=== PATIENT | female | born 1945 | race Caucasian/White ===

== ENCOUNTER 2021-05-11 09:36 | Emergency (ER) | payer MEDICARE, SELFPAY ==
[2021-05-11 09:37] VITALS: BP 186/82; PULSE 87; RESP 16; TEMP 36.4; O2SAT 97; BMI 30.9
--- NOTE | 2021-05-11 10:02 | RAD_ITS ---
STUDY: X-RAY - PELVIS AND RIGHT HIP REASON FOR EXAM: Female, 75 years old. Right hip pain following injury. TECHNIQUE: 3 views of the pelvis and hip. COMPARISON: None. FINDINGS: There is a non-specific bowel gas pattern. Normal visualized soft tissue structures. There is narrowing with cortical sclerosis and osteophyte formation of the sacroiliac joint consistent with degenerative osteoarthritic changes. Normal bilateral superior and inferior pubic rami. Normal pubic symphysis. Normal bilateral ischial tuberosities. There are osteoarthritic changes of the femoral head with marginal osteophyte formation. There is osteoarthritic spur formation of the acetabular rim. There is moderate articular joint space narrowing of the hip. Questionable nondisplaced impacted subcapital fracture. RAD/HIP, UNI W/ Pelvis 2-3 Views IMPRESSION: Degenerative changes. Questionable nondisplaced impacted subcapital fracture of the proximal right femur Electronically Signed: Daryl You MD at 10:36 EDT , Service support ,
--- NOTE | 2021-05-11 10:02 | CT_ITS ---
STUDY: CT BRAIN WITHOUT CONTRAST REASON FOR EXAM: Female, 75 years old. Head injury due to a fall. RADIATION DOSAGE (If Supplied By Facility): CTDIvol = ( 44.99 ) mGy, DLP = ( 812.98 ) mGycm TECHNIQUE: Transaxial CT imaging of the brain was performed without administration of intravenous contrast material. Individualized dose optimization techniques were used for this CT. COMPARISON: No relevant priors. FINDINGS: Scalp hematoma overlying the posterior right parietal occipital bone. Normal calvarium. There is mild cerebral atrophy with widening of the extra-axial spaces and ventricular dilatation. There are areas of decreased attenuation within the white matter tracts of the supratentorial brain, consistent with microvascular disease changes. Normal basal ganglia and thalami. Normal brainstem. Normal cerebellum. There is evidence of a hemorrhagic contusion overlying the superior posterior aspect of the right parietal lobe. Focal hemorrhagic contusion along the posterior medial aspect of the left parietal lobe. There is also evidence of an acute subdural hematoma within the cerebral falx. Focal subarachnoid hemorrhage is also seen within the sulcal markings of the posterior right parietal lobe. Questionable tiny hemorrhagic contusion in the right temporal lobe as well. There are no findings of an acute ischemic infarction. Normal visualized paranasal sinuses. CT/Brain/Head without Contrast IMPRESSION: Chronic involutional changes of the brain. Subdural hematoma within the cerebral falx as well as hemorrhagic contusion of the right temporal lobe and the posterior right parietal lobe and posterior medial aspect of the left parietal lobe. Focal subarachnoid bleed also seen within the sulcal markings of the posterior right parietal lobe. Scalp hematoma overlying the right posterior parietal occipital bones. N.B. : The above Results were Read Back by Daryl You MD to Say Martínez MD, and understanding confirmed on 05/11/2021 10:31:54 (ET). Electronically Signed: Daryl You MD at 10:33 EDT , Service support ,
--- NOTE | 2021-05-11 10:03 | EX.ED.GENINJ ---
HPI History of Present Illness Chief Complaint: Head Injury Informant: patient Onset/Context/Timing Onset: Today (1-2 hrs ago) Mechanism/Context: Fall and Slip Location of pain/injuries: Right hip and - (head, neckl) Quality of Pain: Aching Current Severity: Mild Maximum Severity: Moderate Worsened by: palpation affected areas Associated Symptoms Associated Symptoms: Negative for Parasthesias, Weakness, Loss of function, Inability to ambulate, Loss of consciousness and Amnesia Narrative Narrative: Patient was getting a coffee mug out of a tall cabinet, she needed to step onto a stool in order to reach it which she does every morning but she had her slippers on and coming down she either slipped on her slipper or misplaced her foot, causing her to fall to the floor, hitting the back of her head on it, she has a bad headache as a result of this and hematoma. No bleeding or laceration. She also fell onto her right hip and she points more to her right buttock where she is having pain. Able to walk on it, no pain in the groin. No other injuries. Does not take any anticoagulants or antiplatelets. [facility] Medical History Diabetes Hypertension Hypothyroidism Home Medications alprazolam 0.5 mg PO QHS 05/11/21 [History Last Taken Unknown] atorvastatin 10 mg PO QHS 05/11/21 [History Last Taken Unknown] glimepiride 2 mg PO DAILY 05/11/21 [History Last Taken Unknown] levothyroxine 50 mcg PO DAILY 05/11/21 [History Last Taken Unknown] lisinopril 20 mg PO DAILY 05/11/21 [History Last Taken Unknown] metformin 500 mg PO QHS 05/11/21 [History Last Taken Unknown] Allergy/AdvReac Type Severity Reaction Status Date / Time Penicillins Allergy Hives Verified 05/11/21 09:40 aspirin AdvReac Other Verified 05/11/21 09:40 codeine AdvReac Other Verified 05/11/21 09:40 Social History Smoking Status: Current every day smoker tobacco type: cigarettes ROS ROS ED Constitutional Constitutional ED: Denies chills or fever(s) Eyes Eyes: Reports blurry vision bilateral (transiently for about 20-30 min after head injury) and change in vision; Denies diplopia or loss of vision ENT ENT ED: Denies ear pain, epistaxis, facial pain or rhinorrhea Cardiovascular Cardiovascular: Denies chest pain or palpitations Respiratory/Chest Respiratory/Chest: Denies cough or dyspnea Gastrointestinal Gastrointestinal: Denies abdominal pain, diarrhea, melena, nausea or vomiting Genitourinary Genitourinary ED: Denies dysuria or hematuria Musculoskeletal Musculoskeletal: Reports as per HPI, extremity pain and neck pain; Denies back pain Integumentary Denies abscess, Abrasions, laceration or rash Neurologic Neurologic: Reports headache(s); Denies confusion, paresthesias or weakness EXAM Physical Exam Const Vital Signs: 05/11/21 09:37 05/11/21 09:54 05/11/21 11:31 Temperature 97.6 F L Temperature Source Temporal Pulse Rate 87 Respiratory Rate 16 Respiratory Effort Normal Non-Labored Respiratory Depth Normal Respiratory Pattern Normal Blood Pressure 186/82 H 164/95 H Blood Pressure Mean 116 118 Pulse Ox 97 Oxygen Delivery Method Room Air Positive well nourished and well developed General Appearance ED: well developed and NAD HEENT Reports TM's clear and nasal mucous membranes and turbinates normal HEENT Narrative: Tender 6-7 cm hematoma right occipital scalp without laceration, crepitance, obvious depression trauma Face and Sinus: Negative for facial tenderness Tympanic Membrane ED: Yes TM's clear Eyes PERRL and EOMs intact bilaterally Visual Acuity: other Other Details: no entrapment or pain with extraocular movements Neck full ROM and supple Neck Narrative: Tender right paraspinal musculature mildly. No midline bony tenderness. Full range of motion without neurologic symptoms. General: tenderness Chest Wall inspection of chest normal and palpation of chest normal Chest: symmetrical chest wall rise; Negative for crepitus or tenderness Resp normal respiratory effort and clear to auscultation bilaterally Percussion: other equal BS bilat Cardio no murmurs Rate: regular rate Rhythm: regular rhythm GI normal to inspection, nondistended, normoactive bowel sounds, soft to palpation and non-tender Back/Spine normal ROM Cervical Spine: Negative for cervical spine tenderness Thoracic Spine / Upper Back: Negative for thoracic spinal tenderness Lumbar Spine / Lower Back: Negative for lumbar spinal tenderness Extremity normal to inspection and full ROM Extremity Narrative: Tender in the right buttock and mildly at ischial tuberosity, nontender greater trochanter, painless full range of motion of the hip without deformity. Pelvis stable. General Extremety ED: Negative for tenderness Neuro oriented x3, CN's II-XII intact bilaterally, moves all extremities, no focal motor deficits and no sensory deficits noted João Coma Scale: document GCS findings Spontaneous Obeys Commands Oriented 15 Sensorium / Orientation: awake and alert Psych mental status grossly normal and thought process normal Skin no wounds Lesions: no lesions Rashes: no rashes MDM MDM MDM Narrative Medical decision making narrative: Head CT shows cerebral contusion, subdural hematoma, along with some small amounts of subarachnoid blood locally as acute injury in addition to some left-sided bleeding as well. No intraventricular blood. Patient is clinically stable, hemodynamically stable, GCS 15. She declined analgesics and declined an ice pack. She will require transfer to a specialty center and has neurosurgical capabilities. Her hip x-ray including the pelvis are fine, no acute fractures 3 views of my interpretation, although radiology is questioning a nondisplaced subcapital hip fracture. She is not examining or having symptoms consistent with this. After discussing with the patient, we were able to get an accepting physician at [facility] [place], Dr. Garza. Lab Data Attestation: I reviewed the patient's lab results. Labs: Laboratory Results - last 24 hr 05/11/21 11:27 POC Glucose 189 H Radiography Diagnostic Testing: Clinical Impression(s) from Imaging Studies Brain CT 05/11/21 10:02 IMPRESSION: Chronic involutional changes of the brain. Subdural hematoma within the cerebral falx as well as hemorrhagic contusion of the right temporal lobe and the posterior right parietal lobe and posterior medial aspect of the left parietal lobe. Focal subarachnoid bleed also seen within the sulcal markings of the posterior right parietal lobe. Scalp hematoma overlying the right posterior parietal occipital bones. N.B. : The above Results were Read Back by Daryl You MD to Say Martínez MD, and understanding confirmed on 05/11/2021 10:31:54 (ET). Electronically Signed: Daryl You MD at 10:33 EDT , Service support , ADDENDUM: 05/11/21 1039 IMPRESSION: Chronic involutional changes of the brain. Subdural hematoma within the cerebral falx as well as hemorrhagic contusion of the right temporal lobe and the posterior right parietal lobe and posterior medial aspect of the left parietal lobe. Focal subarachnoid bleed also seen within the sulcal markings of the posterior right parietal lobe. Scalp hematoma overlying the right posterior parietal occipital bones. N.B. : The above Results were Read Back by Daryl You MD to Say Martínez MD, and understanding confirmed on 05/11/2021 10:31:54 (ET). Electronically Signed: Daryl You MD at 10:33 EDT , Service support , Hip/Pelvis X-Ray 05/11/21 10:02 IMPRESSION: Degenerative changes. Questionable nondisplaced impacted subcapital fracture of the proximal right femur Electronically Signed: Daryl You MD at 10:36 EDT , Service support , Critical Care Time Critical Care Time: Yes Critical care time (excluding procedures): 30-74 minutes (32), Including time spent:, Discussing w/Patient &/or Family/Operations Officer Afloat, Discussing w/Consultants, Arranging Admission or Transfer and Performing Direct Patient Care at Bedside Discharge Plan Triage Chief Complaint: Head Injury ED Provider: Say Martínez Dx/Rx/DC Orders Clinical Impression: Cerebral contusion, Contusion of hip, right, Fall from slipping, Acute subdural hematoma Prescriptions: No Action atorvastatin 10 mg tablet 10 mg PO QHS RF: 0 lisinopril 20 mg tablet 20 mg PO DAILY RF: 0 glimepiride 2 mg tablet 2 mg PO DAILY RF: 0 alprazolam 0.5 mg tablet 0.5 mg PO QHS RF: 0 levothyroxine 50 mcg tablet 50 mcg PO DAILY RF: 0 metformin 500 mg tablet extended release 24 hr 500 mg PO QHS RF: 0 Primary Care Provider: Ellis Quiñones Disposition Disposition: Acute Care Hospital Discharge Location: [facility]
--- NOTE | 2021-05-11 11:28 | NURSING ---
1125 CALLED [facility]. NOT TAKING PATIENTS
--- NOTE | 2021-05-11 11:29 | NURSING ---
1126 CALLED [facility] NO ICU BEDS. WILL TALK TO DR ZAMUDIO
[2021-05-11 11:31] VITALS: BP 164/95
[2021-05-11 11:35] LABS: Bedside Glucose 189 mg/dL (70-110)
--- NOTE | 2021-05-11 11:40 | NURSING ---
ACCEPTED AT [facility]
[2021-05-11 12:08] VITALS: BP 164/95; PULSE 87; RESP 16; O2SAT 97
[2021-05-11] MEDS: Acetaminophen 500 MG Tablet 1000 MG PO (13:16)
[2021-05-11 13:18] VITALS: BP 158/76; PULSE 62; RESP 18; O2SAT 95
--- NOTE | 2021-05-11 14:55 | NURSING ---
PATIENT WAS WHEELING OUT, [facility] CALLED ASKING WHERE OUR TRAUMA PATIENT WAS. EXPLAINED WE HAD TO WAIT FOR TRANSPORT. SHE WAS OK WITH RESPONCE
== END 2021-05-11 14:30 | disposition short-term general hospital (02) ==
PROVIDERS: Emergency Provider Emergency Medicine; PCP Family Medicine
DX: S06.5X9A Traumatic subdural hemorrhage with loss of consciousness of unspecified duration, initial encounter (principal); S70.01XA Contusion of right hip, initial encounter; W01.0XXA Fall on same level from slipping, tripping and stumbling without subsequent striking against object, initial encounter; Y93.9 Activity, unspecified; Y92.89 Other specified places as the place of occurrence of the external cause; Y99.8 Other external cause status; E03.9 Hypothyroidism, unspecified; E11.9 Type 2 diabetes mellitus without complications; F17.210 Nicotine dependence, cigarettes, uncomplicated; I10 Essential (primary) hypertension; M16.11 Unilateral primary osteoarthritis, right hip; Z79.82 Long term (current) use of aspirin; Z79.84 Long term (current) use of oral hypoglycemic drugs
CPT/HCPCS: 70450; 73502; 82962; 99285; A4216

== ENCOUNTER → 2022-08-11 | Outpatient (CLI) | payer MEDICARE, SELFPAY ==
--- NOTE | 2022-08-11 09:25 | MRI_ITS ---
INDICATION: Back and right lower extremity pain. EXAMINATION: MRI - MR Spine Lumbar W/O Contrast TECHNIQUE: Multiplanar and multisequence MR images of the lumbar spine. IV Contrast Dosage and Agent: None. COMPARISON: 07/23/2022 radiographs. FINDINGS: No fracture or acute osseous abnormality. Alignment similar to previous with mild grade 1 degenerative anterolisthesis of L4 on L5. The conus terminates at the level of the L2 superior endplate with normal contour and signal. Normal arborization of the cauda equina. At L1-2, small diffuse disc bulge and moderate bilateral facet degeneration causes only mild narrowing of the spinal canal and foramina with no nerve root impingement. At L2-3, small diffuse disc bulge and severe bilateral facet degeneration with degenerative buckling of ligamentum flavum causes only mild narrowing of the spinal canal and foramina with no nerve root impingement. At L3-4, moderate diffuse disc bulge and severe bilateral facet degeneration with degenerative buckling of the ligamentum flavum causes only mild narrowing of the spinal canal and foramina with no evidence of nerve root impingement. At L4-5, severe bilateral facet degeneration with buckling of ligamentum flavum and grade 1, 3 mm, degenerative anterolisthesis causes high-grade narrowing of the right subarticular zone with disc and ligamentum flavum likely compressing the traversing right L5 nerve root. Disc and ligamentum flavum displace but do not definitively compress the traversing left L5 nerve root in the subarticular zone. Disc and osteophyte also abuts both exiting L4 nerve roots in the foramina. At L5-S1, small diffuse disc bulge and moderate facet degeneration causes only mild narrowing of the spinal canal. Disc and vertebral body and facet osteophytes extend into and markedly narrow the right foramen likely compressing the exiting right L5 nerve root. Mild to moderate left foraminal narrowing with disc and osteophyte abutting but not compressing the exiting left L5 nerve root. The paraspinal soft tissues are unremarkable. MRI/Spine Lumbar (Routine) IMPRESSION: Degenerative changes particularly at L4-5 and L5-S1. There is likely compression of the right L5 nerve root in the right subarticular zone at L4-5 and right foramen of L5-S1. Given the facet degeneration and anterolisthesis at L4-5, consider flexion and extension radiographs to assess for mechanical instability. Electronically Signed: Rolando Philip MD at 22:25 EST ,
== END | disposition home or self-care (01) ==
LOC: MRI 09:24
PROVIDERS: PCP Family Medicine; Referring Provider Orthopaedic Surgery; Visit Provider Orthopaedic Surgery
DX: M54.50 Low back pain, unspecified (principal)
CPT/HCPCS: 72148

== ENCOUNTER 2022-11-22 08:25 | Emergency (ER) | payer MEDICARE, SELFPAY ==
[2022-11-22 08:26] VITALS: BP 145/93; PULSE 78; RESP 16; TEMP 35.2; O2SAT 99
--- NOTE | 2022-11-22 10:42 | ED.VIS.BACK ---
HPI History of Present Illness Chief Complaint: Back Informant: patient Narrative Narrative: History of spinal stenosis and sciatica on the right side, has been having episodes for years, periodically. Another episode of the same symptoms for the last 3 to 4 days after she had a minor fall, but she states she did not injure her back in the fall. She may have twisted, she did not have immediate sciatica. She denies any bowel or bladder dysfunction, weakness, numbness. Pain radiates down the right leg to her foot. [facility] Medical History Diabetes History of trigger finger Hypertension Hypothyroidism Home Medications alprazolam 0.5 mg tablet 0.5 mg PO QHS 05/11/21 [History Last Taken Unknown] atorvastatin 10 mg tablet 10 mg PO QHS 05/11/21 [History Last Taken Unknown] glimepiride 2 mg tablet 2 mg PO DAILY 05/11/21 [History Last Taken Unknown] levothyroxine 50 mcg tablet 50 mcg PO DAILY 05/11/21 [History Last Taken Unknown] lisinopril 20 mg tablet 20 mg PO DAILY 05/11/21 [History Last Taken Unknown] dulaglutide 0.75 mg/0.5 mL subcutaneous pen injector (Trulicity) ml subcut 07/23/22 [History Last Taken Unknown] gabapentin 100 mg capsule ea PO 07/23/22 [History Last Taken Unknown] Allergy/AdvReac Type Severity Reaction Status Date / Time Penicillins Allergy Hives Verified 11/22/22 08:25 aspirin AdvReac Other Verified 11/22/22 08:25 codeine AdvReac Other Verified 11/22/22 08:25 Social History Smoking Status: Current every day smoker tobacco type: cigarettes alcohol intake: never ROS ROS ED Constitutional Constitutional ED: Denies chills or fever(s) Gastrointestinal Gastrointestinal: Denies abdominal pain, constipation, fecal incontinence, nausea or vomiting Genitourinary Genitourinary ED: Reports other Details: no urinary retention ; Denies abdominal discomfort or urinary incontinence Musculoskeletal Musculoskeletal: Reports as per HPI and back pain; Denies neck pain Integumentary Denies rash or wounds Neurologic Neurologic: Denies headache(s), paresthesias or weakness EXAM Physical Exam Const Vital Signs: 11/22/22 08:26 Temperature 95.3 F L Temperature Source Temporal Pulse Rate 78 Respiratory Rate 16 Blood Pressure 145/93 H Blood Pressure Mean 110 Pulse Ox 99 Oxygen Delivery Method Room Air Positive well nourished and well developed General Appearance ED: well developed and NAD HEENT Negative for trauma or tenderness Eyes PERRL and EOMs intact bilaterally Neck full ROM and supple GI normal to inspection, nondistended, normoactive bowel sounds, soft to palpation and non-tender Back/Spine normal to inspection Back/Spine Narrative: Ipsilateral right straight leg raise positive reproducing radicular symptoms while lying supine at about 30 degrees, negative cross straight leg raise. Lumbar Spine / Lower Back: ROM limited and paraspinal muscle tenderness; Negative for lumbar spinal tenderness Extremity normal to inspection, full ROM and no pedal edema Neuro oriented x3 and no sensory deficits noted Sensorium / Orientation: alert Motor Exam: strength 5/5 throughout and clonus absent Deep Tendon Reflexes: Rt Patellar (L4): 2+, Lt Patellar (L4): 2+, Rt Ankle (S1): 2+ and Lt Ankle (S1): 2+ Deep Tendon Reflexes Back: Rt Patellar (L4): 2+, Lt Patellar (L4): 2+, Rt Ankle (S1): 2+ and Lt Ankle (S1): 2+ Plantar Reflex: Downgoing: bilateral Psych mental status grossly normal and thought process normal Skin no rashes or lesions noted and no wounds MDM MDM MDM Narrative Medical decision making narrative: Patient waited a little longer than usual for me to see and evaluate her, due to a cardiopulmonary arrest that arrived before I could see and evaluate her, so I discussed this with her and was apologetic, but ordered her some parenteral analgesics and advised that we do a lumbar x-ray series while she was waiting in order to rule out any acute bony abnormality and she was amenable to all of that. She does not have any signs or symptoms of cauda equina syndrome at this time. However apparently before the patient was able to be x-rayed or receive any medications, she eloped. I was not aware of this until after she left the department. Discharge Plan Triage Chief Complaint: Back ED Provider: Say Martínez Dx/Rx/DC Orders Clinical Impression: Acute right-sided back pain with sciatica, Spinal stenosis at L4-L5 level Prescriptions: No Action Trulicity 0.75 mg/0.5 mL pen injector subcut Label Comments: INJECT 0.5 ML SUBCUTANEOUSLY ONCE A WEEK. DISCARD PEN AFTER. gabapentin 100 mg capsule PO Label Comments: TAKE 1 CAPSULE BY MOUTH THREE TIMES DAILY NEEDED FOR UP TO 14 DAYS. atorvastatin 10 mg tablet 10 mg PO QHS lisinopril 20 mg tablet 20 mg PO DAILY glimepiride 2 mg tablet 2 mg PO DAILY alprazolam 0.5 mg tablet 0.5 mg PO QHS levothyroxine 50 mcg tablet 50 mcg PO DAILY Primary Care Provider: Ellis Quiñones Referrals: Ellis Quiñones MD [Primary Care Provider] - Disposition Disposition: [facility] Discharge Date/Time: 11/22/22 10:51
--- NOTE | 2022-11-22 10:44 | ED.RN ---
Patient presented to the nurses desk and stated she wanted to go home. This RN attempted to speak with patient regarding her concerns. She stated she has been here for several hours and no one has done anything for her. If I am going to be in pain, I am just going to go home and be in pain. The doctor said he was going to give me prednisone, but I can just take what I have at home. This RN apologized and attempted to explain to the patient that there were 2 very critical patients and that staff were not intentionally neglecting her needs, but prioritizing the care of all the patients in the ED. Patient stated I am aware of that and I am not stupid, I will go home and pray for them more than you will. This RN escorted patient out via wheelchair and then the volunteer took patient to her car via wc. This RN again apologized for experience and attempted to complete service recovery which was unsuccessful.
== END 2022-11-22 10:51 | disposition left against medical advice (07) ==
PROVIDERS: Emergency Provider Emergency Medicine; PCP Family Medicine; Visit Provider Emergency Medicine
DX: M48.061 Spinal stenosis, lumbar region without neurogenic claudication (principal); E11.9 Type 2 diabetes mellitus without complications; M54.30 Sciatica, unspecified side; I10 Essential (primary) hypertension; E03.9 Hypothyroidism, unspecified; Z79.85 Long-term (current) use of injectable non-insulin antidiabetic drugs
CPT/HCPCS: 99282

== ENCOUNTER 2023-02-22 21:05 | Emergency (ER) | payer MEDICARE, SELFPAY ==
[2023-02-22 21:06] VITALS: BP 172/91; PULSE 71; RESP 18; TEMP 36.6; O2SAT 99
[2023-02-22] MEDS: Morphine 4 MG/ML Syringe IM (22:09)
[2023-02-22 22:11] VITALS: BMI 33.8
--- NOTE | 2023-02-22 22:15 | RAD_ITS ---
INDICATION: Injury/Pain EXAMINATION/TECHNIQUE: X-RAY - RIGHT XR Hip Unilateral with Pelvis when performed; 2-3 Views 3 VIEWS COMPARISON: May 11, 2021 right hip x-rays. FINDINGS: SOFT TISSUES: No soft tissue swelling or gas. No radiopaque foreign body. BONES/JOINTS: No acute fracture or malalignment. Advanced degenerative changes right hip and at least moderate degenerative changes left hip not appreciably changed compared to prior comparison exam. Mild subchondral sclerosis bilateral sacroiliac joints, unchanged. Mild degenerative endplate changes L4-5 and L5-S1, unchanged. No sclerotic or destructive changes observed. RAD/HIP, UNI W/ Pelvis 2-3 Views IMPRESSION: No appreciable change compared to prior comparison exam May 11, 2021 showing degenerative changes bilateral hips, lumbar spine and sacroiliac joints. There are advanced degenerative changes right hip. Electronically Signed: Osbaldo Moreno DO at 22:39 EDT ,
--- NOTE | 2023-02-22 22:17 | EDS_ITS ---
HPI History of Present Illness HPI Narrative: Patient presents with right hip pain that began after a fall 1 year ago. Patient states it is gotten worse over the last week. Patient states her pain is constant. Patient describes it as sharp and stabbing. Patient states it radiates into her right foot. Patient states she has seen Dr. Chung for this. Patient states she has had epidural injections for this. Patient states her pain is worse with weightbearing. Patient states that sometimes she does have some weakness in her right leg due to the pain. Patient denies any recent trauma or injury. Chief Complaint: Lower Extremity Injury Informant: patient Occured/Mechanism Mechanism/Context: Yes fall Comment: Patient fell 1 year ago Onset/Context/Timing Onset: Weeks (Pain has been worse over the past week) Context: Gradual Onset Timing: Continuous Quality of Pain: Sharp and Stabbing Location: Right hip Worsened by: Weightbearing Relieved by: Rest Associated Symptoms Associated Symptoms: Positive for Weakness; Negative for Parasthesia or Loss of Funtion [facility] Medical History Diabetes History of trigger finger Hypertension Hypothyroidism Home Medications alprazolam 0.5 mg tablet 0.5 mg PO QHS 05/11/21 [History Last Taken Unknown] atorvastatin 10 mg tablet 10 mg PO QHS 05/11/21 [History Last Taken Unknown] glimepiride 2 mg tablet 2 mg PO DAILY 05/11/21 [History Last Taken Unknown] levothyroxine 50 mcg tablet 50 mcg PO DAILY 05/11/21 [History Last Taken Unknown] lisinopril 20 mg tablet 20 mg PO DAILY 05/11/21 [History Last Taken Unknown] dulaglutide 0.75 mg/0.5 mL subcutaneous pen injector (Trulicity) ml subcut 07/23/22 [History Last Taken Unknown] gabapentin 100 mg capsule ea PO 07/23/22 [History Last Taken Unknown] hydrocodone-acetaminophen 5-325mg 5mg-325mg 1 tab PO Q6H PRN PRN Pain 3 days #10 TABLETS 02/22/23 [Rx Last Taken Unknown] Allergy/AdvReac Type Severity Reaction Status Date / Time Penicillins Allergy Hives Verified 02/22/23 21:07 aspirin AdvReac Other Verified 02/22/23 21:07 codeine AdvReac Other Verified 02/22/23 21:07 no surgical history Social History Smoking Status: Unknown if ever smoked alcohol intake: never ROS ROS ED Constitutional Constitutional ED: Denies chills or fever(s) Eyes Eyes: Denies blurry vision or change in vision ENT ENT ED: Denies rhinorrhea or sore throat Cardiovascular Cardiovascular: Denies chest pain or palpitations Respiratory/Chest Respiratory/Chest: Denies cough or dyspnea Gastrointestinal Gastrointestinal: Denies nausea or vomiting Genitourinary Genitourinary ED: Denies dysuria or hematuria Musculoskeletal Musculoskeletal: Reports back pain; Denies neck pain Integumentary Denies abscess or rash Neurologic Neurologic: Denies headache(s) or weakness Allergic/Immunologic Allergic/Immunologic ED: Denies mouth swelling or urticaria EXAM Physical Exam Const Vital Signs: 02/22/23 21:06 02/23/23 00:03 Temperature 97.8 F Temperature Source Temporal Pulse Rate 71 71 Respiratory Rate 18 18 Blood Pressure 172/91 H 172/91 H Blood Pressure Mean 118 Pulse Ox 99 99 Oxygen Delivery Method Room Air Positive well nourished, well developed and obese General Appearance ED: well developed and NAD Nutritional Appearance: obese HEENT Reports moist mucous membranes Neck full ROM and supple Resp normal respiratory effort and clear to auscultation bilaterally Cardio regular rate and regular rhythm GI non-tender Palpation: soft Extremity normal to inspection Extremity Narrative: There is tenderness over the lateral aspect of the right hip. There is also tenderness of the posterior aspect of the right hip. There is no obvious deformity noted. There is no pain with internal and external rotation. There is some mild pain with flexion of the right hip. Strength is 5/5 bilaterally in the lower extremities. There are no sensory deficits noted. Pedal pulses are equal bilaterally. Neuro oriented x3, CN's II-XII intact bilaterally, moves all extremities and no [place] deficits noted Sensorium / Orientation: alert Motor Exam: strength 5/5 throughout Psych mental status grossly normal MDM MDM MDM Narrative Medical decision making narrative: Differential diagnosis includes occult fracture, degenerative arthritis, sciatica, and sacroiliitis. X-rays of the right hip and pelvis will be obtained to assess for degenerative arthritis and occult fracture. Radiography Diagnostic Testing: Clinical Impression(s) from Imaging Studies Hip/Pelvis X-Ray 02/22/23 22:15 IMPRESSION: No appreciable change compared to prior comparison exam May 11, 2021 showing degenerative changes bilateral hips, lumbar spine and sacroiliac joints. There are advanced degenerative changes right hip. Electronically Signed: Osbaldo Moreno at 22:39 EDT , X-rays of the right hip were obtained. There are 3 views. On my independent interpretation, there is no acute fracture or dislocation. There are degenerative changes of the bilateral hips, sacroiliac joint, and right hip. There are advanced degenerative changes of the right hip. Radiologist also interpreted the x-ray and agrees. Treatment and Re-Evaluation Narrative: Patient was given injection of morphine here. Patient was advised of her findings. Patient was given a prescription for a short course of Marilla. Patient was instructed to follow-up with her primary care physician and pain management physician as scheduled. Patient states she also has an appointment with an orthopedic surgeon. Patient was instructed to keep this her appointment as well. Patient was instructed to return if worse in any way. Patient understood and was agreeable with the plan. All questions were answered. We will Discharge Plan Triage Chief Complaint: Lower Extremity Injury ED Provider: Thiago Jarvis Dx/Rx/DC Orders Clinical Impression: Sciatica of right side, Acute pain of right hip Instructions: ED Pain, Acute, Uncertain Cause, ED Sciatica Prescriptions: New hydrocodone-acetaminophen [hydrocodone-acetaminophen] 5-325 mg tablet 1 tab PO Q6H PRN PRN (Reason: Pain) 3 Days Qty: 10 0RF No Action Trulicity 0.75 mg/0.5 mL pen injector subcut Patient Comments: INJECT 0.5 ML SUBCUTANEOUSLY ONCE A WEEK. DISCARD PEN AFTER. gabapentin 100 mg capsule PO Patient Comments: TAKE 1 CAPSULE BY MOUTH THREE TIMES DAILY NEEDED FOR UP TO 14 DAYS. atorvastatin 10 mg tablet 10 mg PO QHS lisinopril 20 mg tablet 20 mg PO DAILY glimepiride 2 mg tablet 2 mg PO DAILY alprazolam 0.5 mg tablet 0.5 mg PO QHS levothyroxine 50 mcg tablet 50 mcg PO DAILY Primary Care Provider: Ellis Quiñones Referrals: Елена Power MD [Med Staff - Active Staff] - 3-5 Days Ellis Quiñones MD [Primary Care Provider] - 3-5 Days Disposition Disposition: Home, Self Care Discharge Date/Time: 02/23/23 00:04
[2023-02-23 00:03] VITALS: BP 172/91; PULSE 71; RESP 18; O2SAT 99
== END 2023-02-23 00:04 | disposition home or self-care (01) ==
PROVIDERS: Emergency Provider Emergency Medicine; PCP Family Medicine; Visit Provider Emergency Medicine
DX: M25.551 Pain in right hip (principal); E11.9 Type 2 diabetes mellitus without complications; M54.31 Sciatica, right side; I10 Essential (primary) hypertension; E03.9 Hypothyroidism, unspecified; Z79.899 Other long term (current) drug therapy; Z79.85 Long-term (current) use of injectable non-insulin antidiabetic drugs
CPT/HCPCS: 73502; 96372; 99282

== ENCOUNTER 2023-04-19 20:12 | Emergency (ER) | payer MEDICARE, SELFPAY ==
[2023-04-19 20:16] VITALS: BP 102/65; PULSE 107; RESP 18; TEMP 35.7; O2SAT 98; BMI 31.7
[2023-04-19 20:21] VITALS: BP 102/65; PULSE 107; RESP 18; TEMP 35.7; O2SAT 98
[2023-04-19 20:37] VITALS: O2SAT 97
--- NOTE | 2023-04-19 20:38 | ED.VIS.DYS ---
HPI History of Present Illness Chief Complaint: Shortness of Breath Informant: patient Narrative Narrative: Patient sent to the ED after discussed with her PCP office for evaluation. Tested positive for COVID 10 days ago, symptomatic 12 days ago. States sinus congestion loss of taste and smell and muffled hearing. After being positive on the third she discussed with her PCP she is on day 4 had options for viral treatment however she declined. Since then having productive cough she states having some dyspnea that is worse with exertion. No chest pains. No fevers. No weakness. She retested today was still positive. She is vaccinated with boosters the last time was shortly prior to symptoms occurring end of March on the . She denies any positive test in the past she states she had symptoms prior to testing in 2019. No asthma no COPD no wheezing. [facility] Medical History Diabetes History of trigger finger Hypertension Hypothyroidism Sciatic leg pain Home Medications alprazolam 0.5 mg tablet 0.5 mg PO QHS 05/11/21 [History Last Taken Unknown] atorvastatin 10 mg tablet 10 mg PO QHS 05/11/21 [History Last Taken Unknown] glimepiride 2 mg tablet 2 mg PO DAILY 05/11/21 [History Last Taken Unknown] levothyroxine 50 mcg tablet 50 mcg PO DAILY 05/11/21 [History Last Taken Unknown] lisinopril 20 mg tablet 20 mg PO DAILY 05/11/21 [History Last Taken Unknown] dulaglutide 0.75 mg/0.5 mL subcutaneous pen injector (Trulicity) ml subcut 07/23/22 [History Last Taken Unknown] tramadol 50 mg tablet 50 mg PO DAILY 03/06/23 [History Last Taken Unknown] Allergy/AdvReac Type Severity Reaction Status Date / Time Penicillins Allergy Hives Verified 04/19/23 20:15 aspirin AdvReac Other Verified 04/19/23 20:15 codeine AdvReac Other Verified 04/19/23 20:15 Social History Smoking Status: Never smoker alcohol intake: never ROS ROS ED Constitutional Constitutional ED: Denies chills, fever(s) or sweats Eyes Eyes: Denies change in vision ENT ENT ED: Denies dysphagia or sore throat Cardiovascular Cardiovascular: Denies chest pain, leg edema, palpitations or racing heartbeat Respiratory/Chest Respiratory/Chest: Reports cough, dyspnea and dyspnea on exertion Gastrointestinal Gastrointestinal: Denies abdominal pain, diarrhea, nausea or vomiting Genitourinary Genitourinary ED: Denies dysuria, hematuria or urinary frequency Musculoskeletal Musculoskeletal: Denies back pain, extremity pain or neck pain Integumentary Denies rash or wounds Neurologic Neurologic: Denies headache(s), paresthesias or weakness EXAM Physical Exam Const Vital Signs: 04/19/23 20:16 04/19/23 20:21 04/19/23 20:37 Temperature 96.3 F L 96.3 F L Temperature Source Temporal Temporal Pulse Rate 107 H 107 H Respiratory Rate 18 18 Respiratory Effort Short of Breath Respiratory Depth Normal Respiratory Pattern Normal Blood Pressure 102/65 102/65 Blood Pressure Mean 77 77 Pulse Ox 98 98 Oxygen Delivery Method Room Air Room Air Room Air Positive well nourished and well developed Constitutional Narrative: Patient wearing mask. No respiratory distress General Appearance ED: well developed and NAD HEENT normocephalic and atraumatic Eyes PERRL, EOMs intact bilaterally and conjunctivae normal General Eye ED: Yes normal appearance of both eyes Neck no lymphadenopathy and supple General: Negative for tenderness Chest Wall Chest: Negative for tenderness Resp normal respiratory effort and normal air movement Effort and Inspection: symmetric chest movement; Negative for respiratory distress Cardio regular rate, regular rhythm and no murmurs Peripheral Pulses: pulses 2+ throughout GI normal to inspection, nondistended, normoactive bowel sounds and non-tender Palpation: Negative for guarding or rebound tenderness present Extremity normal to inspection General Extremety ED: Negative for edema or tenderness General Extremity: Negative for edema Neuro oriented x3 and no sensory deficits noted Sensorium / Orientation: awake and alert Skin no rashes or lesions noted and no wounds MDM MDM MDM Narrative Medical decision making narrative: Interventions / MDM: Differential diagnosis: COVID-19 infection Diagnosis considered but do not suspect: Pulmonary embolism, however pulse ox 97% with ambulation. My EKG interpretation: N/A Imaging independently reviewed and interpreted by myself: N/A External documents reviewed: N/A Test considered but not ordered:N/A ED course: Patient nontoxic no respiratory distress. COVID infection. She still positive after recheck at home. She had dyspnea. She is ambulate with a pulse ox 97% on room air. She is outside of her window for any treatments. Discussed can image with x-ray, however if pneumonia be viral which would be symptomatic treatment she understands this. At this time with ambulatory pulse ox 97%, lower concerns for pulmonary embolism. Discussed signs to return otherwise will monitor symptoms and pulse ox at home. Outpatient follow-up. All questions were answered. Re-evaluation: stable Disposition discussed with patient/family/significant other: Patient Case discussed with consulting clinician: N/A This note was generated with [employer] dictation software. It may contain incorrect words, spelling, and punctuation that were not noted in checking the note before signing. Discharge Plan Triage Chief Complaint: Shortness of Breath ED Provider: Goldy Lockwood Dx/Rx/DC Orders Clinical Impression: COVID-19 virus infection, Loss of taste, Loss of smell, Dyspnea Instructions: Coronavirus Disease 2019 (COVID-19): Overview Prescriptions: No Action Trulicity 0.75 mg/0.5 mL pen injector subcut Patient Comments: INJECT 0.5 ML SUBCUTANEOUSLY ONCE A WEEK. DISCARD PEN AFTER. tramadol 50 mg tablet 50 mg PO DAILY atorvastatin 10 mg tablet 10 mg PO QHS lisinopril 20 mg tablet 20 mg PO DAILY glimepiride 2 mg tablet 2 mg PO DAILY alprazolam 0.5 mg tablet 0.5 mg PO QHS levothyroxine 50 mcg tablet 50 mcg PO DAILY Primary Care Provider: Ellis Quiñones Referrals: Ellis Quiñones MD [Primary Care Provider] - 1 Week if not improving Activity Restrictions/Additional Instructions: Ambulatory pulse ox 97% on room air. Monitor pulse ox at home, if drops below 88 return to ED for reevaluation otherwise follow-up with your doctor. Disposition Disposition: Home, Self Care Discharge Date/Time: 04/19/23 20:52
[2023-04-19 20:46] VITALS: O2SAT 97
== END 2023-04-19 20:52 | disposition home or self-care (01) ==
LOC: ED 20:48
PROVIDERS: Emergency Provider Emergency Medicine; PCP Family Medicine; Visit Provider Emergency Medicine
DX: U07.1 COVID-19 (principal); E11.9 Type 2 diabetes mellitus without complications; R06.00 Dyspnea, unspecified; I10 Essential (primary) hypertension; R43.9 Unspecified disturbances of smell and taste; E03.9 Hypothyroidism, unspecified; Z79.899 Other long term (current) drug therapy; Z79.85 Long-term (current) use of injectable non-insulin antidiabetic drugs
CPT/HCPCS: 99282

== ENCOUNTER 2025-06-18 12:09 | Observation (INO) | payer MEDICARE, SELFPAY ==
[2025-06-18] VITALS (22 sets, daily range): BP systolic 92–143; BP diastolic 59–113; PULSE 59–89; RESP 14–23; TEMP 36.6–37.1; O2SAT 18–100; BMI 29.7; BMI 29.0
--- NOTE | 2025-06-18 13:00 | EKG12_ITS ---
Test Reason : CP Blood Pressure : */* mmHG Vent. Rate : 82 BPM Atrial Rate : 82 BPM P-R Int : 152 ms QRS Dur : 70 ms QT Int : 366 ms P-R-T Axes : 30 -4 34 degrees QTcB Int : 427 ms Normal sinus rhythm Low voltage QRS Inferior infarct , age undetermined Abnormal ECG Confirmed by CABRERA BUCKLEY, ALINE ([id number]), staff editor MANDY IBARRA ([id number]) on 06/21/2025 6:46:12 AM Referred By: Mc Mcnulty Confirmed By: ALINE MCNULTY MD
--- NOTE | 2025-06-18 13:00 | ED.VIS.CHEST ---
HPI History of Present Illness Chief Complaint: Chest Pain Informant: patient and family (Accompanied by 2 sisters.) Onset/Context/Timing Onset: Days Activity at onset: gradual Timing: Continuous Quality: Positive for Dull Location: Substernal Current Severity: Moderate Maximum Severity: Moderate Worsened By: Nothing Relieved By: Nothing Associated Symptoms: Negative for Nausea, Vomiting, Diaphoresis, Dyspnea, Cough, Fever, Lightheadedness, Acid Reflux or Palpitations Narrative Narrative: 79-year-old female history of diabetes and hypertension no known cardiac disease. No history of DVT or PE. Since Saturday she has a gradual onset of midsternal chest pain. Radiates to her back. No associated nausea nor diaphoresis no shortness of breath. Not specifically exertional. She attributes to lifting a 50 pound package she got but said at the time she did not have the pain when she lifted it. Denies any type of cardiac history or any recent exertional chest pain. No leg pain or swelling. Prior Similar Symptoms: No Recent Illness/Hospitalization: No CVD Risk Factors: Positive for Hypertension and Diabetes PE Risk Factors: Negative for Recent Travel/Surgery, Recent Immobilization, Prior DVT or PE, Cancer or OCP + Smoking + >/=35 TAD Risk Factors: Negative for Marfan's Syndrome [facility] Medical History Sciatic leg pain History of trigger finger Hypothyroidism Diabetes Hypertension Home Medications ?Medication ?Instructions ?Recorded ?Last Taken ?Type alprazolam 0.5 mg tablet 0.5 mg PO QHS 05/11/21 Unknown History atorvastatin 10 mg tablet 10 mg PO QHS 05/11/21 Unknown History glimepiride 2 mg tablet 2 mg PO DAILY 05/11/21 Unknown History levothyroxine 50 mcg tablet 50 mcg PO DAILY 05/11/21 Unknown History lisinopril 20 mg tablet 20 mg PO DAILY 05/11/21 Unknown History dulaglutide 0.75 mg/0.5 mL ml subcut 07/23/22 Unknown History subcutaneous pen injector (Trulicity) tramadol 50 mg tablet 50 mg PO DAILY 03/06/23 Unknown History Allergy/AdvReac Type Severity Reaction Status Date / Time Penicillins Allergy Hives Verified 06/18/25 12:15 aspirin AdvReac Other Verified 06/18/25 12:15 codeine AdvReac Other Verified 06/18/25 12:15 Social History Smoking Status: Never smoker alcohol intake: never ROS ROS ED ROS Narrative Chest pain. Constitutional Constitutional ED: Denies chills or fever(s) Eyes Eyes: Reports none ENT ENT ED: Denies ear pain Cardiovascular Cardiovascular: Reports as per HPI and chest pain; Denies palpitations or racing heartbeat Respiratory/Chest Respiratory/Chest: Denies cough, dyspnea or dyspnea on exertion Gastrointestinal Gastrointestinal: Denies abdominal pain, nausea or vomiting Genitourinary Genitourinary ED: Denies dysuria or hematuria Musculoskeletal Musculoskeletal: Denies arthralgias Integumentary Denies abscess or Abrasions Neurologic Neurologic: Denies headache(s) Psychiatric Psychiatric: Denies anxiety Endocrine Endocrinology: Denies cold intolerance Hematologic/Lymphatic Hematologic/Lymphatic: Denies easy bleeding, easy bruising or lymphadenopathy Allergic/Immunologic Allergic/Immunologic ED: Denies mouth swelling, tongue swelling or urticaria EXAM Physical Exam Narrative Exam Narrative: 79-year-old female vital signs stable afebrile pulse ox 96% on room air no signs hypoxia. Currently she is in no distress she is sitting upright in bed she appears well. She is having midsternal chest pain. 2 sisters at bedside. H EENT exam pupils round react light. Moist mucous membranes. Neck nontender no JVD no lymphadenopathy. Back no reproducible pain. Lungs clear to auscultation bilaterally. Heart regular rhythm rate in the 80s no murmur. There is no reproducible chest wall or sternal pain. There is no ecchymosis or bruising there is no subcu air or crepitance. Abdomen is soft, nontender, nondistended, normal bowel sounds without peritoneal signs. No pulsatile mass. She is moving all 4 extremities. Normal fuel management handler strength. Normal dorsi plantarflexion. Equal symmetrical radial pulses. Calves are nontender without edema or cords. Neurologically she is awake alert. She is answering questions and following commands. Const Vital Signs: 06/18/25 12:11 06/18/25 13:02 Temperature 98.3 F Temperature Source Oral Pulse Rate 89 Respiratory Rate 18 18 Blood Pressure 143/75 H 136/78 H Blood Pressure Mean 97 Pulse Ox 96 Oxygen Delivery Method Room Air Heart Score History: Moderately Suspicious ECG: Significant ST-Depression (ST elevation in inferior leads. Change from prior.) Age: >/= 65 years Risk Factors: 1 or 2 Risk Factors Score: 6 MDM MDM MDM Narrative Medical decision making narrative: 79-year-old female with nonexertional midsternal chest pain is not reproducible. Concern for possible DC that may occur 3 days ago. Her initial EKG shows inferior ST elevation lead to 3 aVF. This is changed from the most recent EKG we have is 14 years ago in 2010. Patient clinically looks well. She does not want to take the aspirin due to it makes her nauseated and hurts her stomach. Patient be treated as a STEMI DUE TO HER ST ELEVATION IN THE INFERIOR LEADS. THIS IS AGE-INDETERMINATE BECAUSE THE LAST EKGS 14 YEARS AGO. I did speak the assistant designer on-call Dr. Mcnulty. My thought is if this is cardiac and probably started on Saturday when her pain started. Given her history of diabetes prior hypertension but currently not on hypertensive meds and her age we will treat this is cardiac till proven otherwise Dr. Mcnulty said he will take care of the heparin in the [facility]. She is being taken to [facility] as we speak. History & Record Review Discussion w/independent historian: Patient and Family Additional record(s) reviewed:: Prior outpatient record Lab Data Attestation: I reviewed the patient's lab results. Lab results narrative: CBC shows white count 11.2 H&H of 13 and 39. Platelets 334. Chemistries show a gap of 15. BUN and creatinine 22 and 0.8. Glucose 188. Initial troponin 284. Labs: Laboratory Results - last 24 hr 06/18/25 12:33 WBC 11.2 H RBC 4.25 Hgb 13.3 Hct 39.4 MCV 92.7 MCH 31.3 MCHC 33.8 RDW Std Deviation 39.7 RDW Coeff of [place] 11.6 Plt Count 334 MPV 8.8 Immature Gran % (Auto) 0.300 Neut % (Auto) 51.3 Lymph % (Auto) 36.8 [place] % (Auto) 7.6 Eos % (Auto) 3.0 Baso % (Auto) 1.0 Absolute Neuts (auto) 5.8 Absolute Lymphs (auto) 4.13 Nucleated RBC % 0 Sodium 136 Potassium 4.1 Chloride 98 Carbon Dioxide 22.5 Anion Gap 15 BUN 22 H Creatinine 0.83 Estim Creat Clear Calc 50.00 Est GFR (MDRD) Non-Af 70 BUN/Creatinine Ratio 26.3 H Glucose 188 H Calcium 10.4 Troponin T High Sens 284 H* Discharge Plan Dx/Rx/DC Orders Clinical Impression: Acute chest pain, Acute inferior myocardial infarction, History of diabetes mellitus, Elevated troponin Disposition Disposition: Acute Care [facility] Discharge Date/Time: 06/18/25 13:19
[2025-06-18] MEDS: Nitroglycerin SL (ED/IMG/CATH) 0.4 MG TABLET SL (13:10)
[2025-06-18 13:14] LABS: Hematocrit 39.4 % (37-47); Hemoglobin 13.3 g/dL (12.0-15.0); Immature Granulocytes Count 0.030 X10^3/uL (0.0-0.0); Mean Corp Hgb Conc 33.8 g/dL (32-36); Mean Corpuscular Volume 92.7 fL (81-99); Mean Platelet Vol. 8.8 fl (6.2-12.0); NRBC Flagged by Analyzer 0 % (0-5); Platelet Count 334 K/mm3 (150-450); RBC Distribution Width CV 11.6 % (11.6-14.6); RBC Distribution Width SD 39.7 fl (35.1-43.9); Red Blood Count 4.25 M/mm3 (4.2-5.4); White Blood Count 11.2 K/mm3 (4.4-11.0)
[2025-06-18 13:30] LABS: Anion Gap 15 (5-15); BUN 22 mg/dL (4-19); BUN/Creat Ratio 26.3 RATIO (10-20); Calcium,Total 10.4 mg/dL (7.6-11.0); Carbon Dioxide 22.5 mmol/L (21.0-32.0); Chloride 98 mmol/L (98-108); Estimated Creatinine Clearance 50.00 ml/min (50-250); Glucose 188 mg/dL (70-99); Potassium 4.1 mmol/L (3.3-5.1)
--- OUTSIDE RECORDS SUMMARY | 2025-06-18 13:30 | XMS RPT_ITS | CCD ---
Author Organization [facility] Care Team Providers Care Entry Level Account Representative Name Role Phone Deirdre Quiñones MD Primary Care Provider Deirdre Quiñones Primary Care Unavailable Deirdre Quiñones Referring Unavailable Abhishek Kumar Attending Unavailable Deirdre Quiñones Primary Care Unavailable Crispin Cohen Attending Unavailable Deirdre Quiñones Primary Care Unavailable Deirdre Quiñones Referring Unavailable Abhishek Kumar Attending Unavailable Say Martínez Attending Unavailable Deirdre Quiñones Primary Care Unavailable Deirdre Quiñones Primary Care Unavailable Abhishek Kumar Attending Unavailable Abhishek Kumar Referring Unavailable Deirdre Quiñones Primary Care Unavailable Thiago Jarvis Attending Unavailable Deirdre Quiñones MD Primary Care Provider Dr. Deirdre Quiñones Primary Care Provider Dr. Deirdre Quiñones Referring Provider Dr. Viet Altamirano Attending Provider Deirdre Quiñones MD Primary Care Provider [employer] MANAGING PARTNER.Silvia GALVAN Unavailable Saravanan MANAGING PARTNER.Jay GALVAN Unavailable Denise Edward RN Unavailable Unavailabl e [employer] MANAGING PARTNER.Silvia GALVAN Unavailable Unavail able [employer] MANAGING PARTNER.Silvia GALVAN Unavailable SILVIA VAZQUEZ Referring UnavailDEIRDRE Lin Primary Care Unavailable SILVIA VAZQUEZ Attending UnavailDEIRDRE Lin Primary Care Unavailable DEIRDRE QUIÑONES Primary Care Unavailable DEIRDRE QUIÑONES Referring Unavailable SILVIA VAZQUEZ Attending UnavailDEIRDRE Lin Primary Care Unavailable Allergies Allergy Classification Reported Allergen(s) Allergy Type Date of Onset Reaction(s) Facility (20 sources) Acetaminophen / HYDROcodone; Translations: [HYDROCODONE-ACET AMINOPHEN] Drug Allergy 04-20-20 05 [facility] (20 sources) Codeine; Translations: [CODEINE] Drug Allergy 06-14-20 05 Intolerance [facility] Work Phone: (20 sources) metFORMIN; Translations: [METFORMIN] Drug Allergy 08-23-19 16 [facility] (20 sources) Palm Oil; Translations: [PALM OIL] Drug Allergy 08-20-19 19 [facility] (15 sources) Penicillins; Translations: [PENICILLINS] Drug Intolerance 04-20-20 05 [facility] (20 sources) quinapril; Translations: [QUINAPRIL HCL] Drug Allergy 08-01-19 07 Other: See [facility] (10 sources) Salicylic Acid; Translations: [SALICYLATES] Drug Allergy 04-20-20 05 [facility] (20 sources) Bees; Translations: [BEES] Propensity to adverse reactions 09-08-19 07 [facility] (20 sources) Doxycycline; Translations: [DOXYCYCLINE] Drug Allergy 11-24-19 22 [facility] Work Phone: (20 sources) Penicillins Drug Intolerance 04-20-20 05 [facility] (20 sources) Salicylate product Drug Intolerance 04-20-20 05 [facility] (2 sources) Aspirin Drug Allergy 02-23-20 23 Other [facility] (2 sources) Penicillins Allergy to substance 02-23-20 [facility] (1 source) Aspirin Drug Allergy 02-23-20 23 [facility] (1 source) Codeine Drug Allergy 02-23-20 23 [facility] (1 source) Penicillins Drug allergy (disorder) 02-23-20 23 [facility] (13 sources) Penicillins Drug Intolerance 04-20-20 05 [facility] Medications Current Medications Medication Drug Class(es) Dates Sig (Normalized) Sig (Original) 8 hr acetaminophen 650 mg extended release oral tablet (20 sources) Start: 06-17-2024 End: 12-14-2024 take 1 tablet by mouth every eight hours as needed acetaminophen (TYLENOL ARTHRITIS PAIN) 650 mg CR tablet Indications: Sciatica, right side , Acute pain of left knee Take 1 tablet by mouth every 8 hours as needed. 30 tablet 5 06/17/2024 12/14/2024 Active Start: 09-07-2006 End: 06-17-2024 take 1 tablet by mouth every eight hours as needed ACETAMINOPHEN 500 MG TAB Take 500 mg by mouth every 8 hours as needed for pain. No more than 4000 mg of acetaminophen should be given per day (FROM ALL SOURCES) 0 09/07/2006 06/17/2024 Discontinued Comment on above: Take 500 mg by mouth every 8 hours as needed for pain. No more than 4000 mg of acetaminophen should be given per day (FROM ALL SOURCES) [id number] 200 actuat albuterol 0.09 mg/actuat metered dose inhaler (20 sources) beta2-Adrenergic Agonist Start: 11-17-19 End: 06-17-20 24 take 2 puff(s) by inhalation every six hours as needed for wheezing albuterol HFA (PROVENTIL HFA, VENTOLIN HFA) 90 mcg/actuation inhaler Indications: Asthma due to seasonal allergies (HCC) Inhale 2 Puffs as instructed every 6 hours as needed for wheezing/shortness of breath. 6.7 Each 5 06/17/2024 Active Comment on above: Inhale 2 Puffs as in structed every 6 hours as needed for wheezing/shortness of breath. ALPRAZolam 0.5 mg oral tablet (20 sources) Benzodiazepine Start: 07-22-19 End: 04-19-20 take 1 tablet by mouth twice daily as needed ALPRAZolam (XANAX) 0.5 mg tablet Indications: Anxiety state Take 1 tablet by mouth two times a day as needed for up to 90 days. 60 tablet 2 01/19/2025 04/19/2025 Active Start: 01-22-2023 End: 07-19-2024 take 1 tablet by mouth twice daily as needed ALPRAZolam (XANAX) 0.5 mg tablet Indications: Anxiety state Take 1 tablet by mouth two times a day as needed for up to 90 days. 60 tablet 2 04/20/2024 07/19/2024 Active Start: 05-11-2021 End: 01-20-2023 take 1 tablet by mouth twice daily as needed ALPRAZolam (XANAX) 0.5 mg tablet Indications: Anxiety state Take 1 tablet by mouth twice daily as needed for up to 90 days. 60 tablet 2 10/20/2021 01/17/2022 Discontinued Comment on above: Take 1 tablet by kely twice daily as needed for up to 90 days. Take 1 tablet by kely two times a day as needed for up to 90 days. atorvastatin 10 mg oral tablet (20 sources) HMG-CoA Reductase Inhibitor Start: End: take 1 tablet by mouth once daily atorvastatin (LIPITOR) 10 mg tablet Indications: Mixed hyperlipidemia Take 1 tablet by mouth once daily. 90 tablet 3 03/12/2025 Active Comment on above: Take 1 tablet by kely once daily. cannabidiol, CBD, (CANNABIDIOL ORAL) (20 sources) cannabidiol, CBD , (CANNABIDIOL ORAL) Take 1-2 Each by mouth once daily. Pt reports taking 1-2 CBD gummies OTC daily for pain and muscle aches. Pt purchases these online and was unable to confirm the dose or brand. Pt does not report endorsement of this medication from a provider. Active cannabidiol, CBD , (CANNABIDIOL ORAL) Take 1-2 Each by mouth once daily. Pt reports taking 1-2 CBD gummies OTC daily for pain and muscle aches. Pt purchases these online and was unable to confirm the dose or brand. Pt does not report endorsement of this medication from a provider. 0 Active Comment on above: Take 1-2 Each by kely once daily. Pt reports taking 1-2 CBD gummies OTC daily for pain and muscle aches. Pt purchases these online and was unable to confirm the dose or brand. Pt does not report endorsement of this medication from a provider. cefdinir 300 mg oral capsule (1 source) Cephalosporin Antibacterial Start: 11-25-19 End: 12-05-19 take 1 capsule by mouth twice daily cefdinir (OMNICEF) 300 mg capsule Take 1 capsule by mouth twice daily for 10 days. 20 capsule 0 11/24/2021 12/04/2021 Active Comment on above: Take 1 capsule by mo [facility] twice daily for 10 days. clindamycin 300 mg oral capsule (20 sources) Lincosamide Antibacterial Start: 07-23-19 24 take 1 capsule by mouth four times daily clindamycin (CLEOCIN) 300 mg capsule Take 1 capsule by mouth four times daily. 40 capsule 07/23/2023 Active Comment on above: Take 1 capsule by [facility] four times daily. doxycycline hyclate 100 mg oral tablet (2 sources) Tetracycline-class Drug Start: 09-27-19 End: 10-07-19 22 take 1 tablet by mouth twice daily doxycycline (VIBRA-TABS) 100 mg tablet Indications: Tick bite, unspecified site, initial encounter Take 1 tablet by mouth twice daily for 10 days. 20 tablet 0 09/26/2021 10/06/2021 Active Comment on above: Take 1 tablet by [facility] twice daily for 10 days. famotidine 20 mg oral tablet (20 sources) Histamine-2 Receptor Antagonist Start: 08-20-19 19 take 1 tablet by mouth every twenty-four hours as needed famotidine (PEPCID) 20 mg tablet Take 1 tablet by mouth at bedtime as needed. 08/20/2018 Active Comment on above: Take 1 tablet by [facility] at bedtime as needed. FLUoxetine 10 mg oral capsule (20 sources) Serotonin Reuptake Inhibitor Start: 03-21-20 End: 04-24-20 24 take 1 capsule by mouth once FLUoxetine (PROZAC) 10 mg capsule Indications: Anxiety state Take 1 capsule by mouth every afternoon. 90 capsule 3 04/24/2024 Active Comment on above: Take 1 capsule by [facility] once daily. TAKE 1 CAPSULE BY [facility] EVERY DAY fluticasone propionate 0.05 mg/actuat metered dose nasal spray (20 sources) Corticosteroid Start: 11-17-19 End: 09-26-19 25 take 2 spray(s) by mouth once daily fluticasone (FLONASE) 50 mcg/actuation nasal spray Indications: Asthma due to seasonal allergies (HCC) Use 2 Sprays in each nostril once daily. Rinse mouth after use. 16 mL 3 09/25/2024 Active End: 11-16-2021 take 1 spray(s) nasal route once daily as needed fluticasone (FLONASE) 50 mcg/actuation nasal spray Use 1 [place] in each nostril once daily as needed. 0 11/16/2021 Discontinued Comment on above: Use 1 [place] in each nostril once daily as needed. Use 2 Sprays in each nostril once daily. Rinse mouth after use. gabapentin 100 mg oral capsule (20 sources) Anti-epileptic Agent Start: 08-17-2022 End: 08-30-2022 take 1 capsule by mouth three times daily gabapentin (NEURONTIN) 300 mg capsule Take 1 capsule by mouth three times daily for 30 days. 90 capsule 3 08/17/2022 08/30/2022 Discontinued Start: 07-06-2022 End: 03-24-2025 take 1 capsule by mouth three times daily gabapentin (NEURONTIN) 100 mg capsule Indications: Sciatica, right side Take 1 capsule by mouth three times a day for 180 days. 90 capsule 5 09/25/2024 03/24/2025 Active Comment on above: Take 1 capsule by mo ut three times daily as needed for up to 14 days. Take 1 capsule by mo ut three times daily as needed for up to 30 days. Take 1 capsule by mo ut three times daily for 30 days. Take 1 capsule by mo ut three times a day for 180 days. glimepiride 4 mg oral tablet (20 sources) Sulfonylurea Start: End: take 1 tablet by mouth twice daily at mealtime glimepiride (AMARYL) 4 mg tablet Indications: Type 2 diabetes mellitus without complication, without long-term current use of insulin (HCC) Take 1 tablet by mouth two times a day with meals. 60 tablet 11 06/17/2024 06/17/2025 Active Start: 09-29-2021 End: 08-16-2024 take 1 tablet by mouth once daily glimepiride (AMARYL) 4 mg tablet Indications: Type 2 diabetes mellitus without complication, without long-term current use of insulin (HCC) Take 1 tablet by mouth once daily. 90 tablet 05/18/2024 06/17/2024 Discontinued Start: 03-21-2021 End: 09-29-2021 take 2 mg by mouth once daily Glimepiride Active 2 MG PO DAILY May 11, 2021 12:00am Comment on above: [facility] Inhalational Spacing Device (1 source) Start: 11-17-19 End: 05-12-20 22 Inhalational Spacing Device 1 Device one time only for 1 dose. 1 Each 0 11/16/2021 11/16/2021 Active Comment on above: 1 Device one time on ly for 1 dose. levothyroxine sodium 0.05 mg oral tablet (20 sources) l-Thyroxine Start: 03-21-20 End: 04-24-20 take 1 tablet by mouth once daily before breakfast levothyroxine (SYNTHROID) 50 mcg tablet Indications: Hypothyroidism, unspecified type Take 1 tablet by mouth daily before breakfast. 90 tablet 3 04/24/2024 Active Comment on above: Take 1 tablet by kely th once daily. DOSE CHANGE. Take on empty stomach. For Thyroid TAKE 1 TABLET BY KELY TH EVERY DAY ON EMPTY STOMACH FOR THYROID lisinopril 10 mg oral tablet (20 sources) Angiotensin Converting Enzyme Inhibitor Start: 09-27-19 End: 03-12-20 take 1 tablet by mouth once daily lisinopril (ZESTRIL) 10 mg tablet Indications: Hypertension, unspecified type Take 1 tablet by mouth once daily. 90 tablet 3 03/12/2025 03/12/2026 Active Start: 05-11-2021 End: 09-26-2021 take 20 mg by mouth once daily Lisinopril Active 20 MG PO DAILY May 11, 2021 12:00am Comment on above: Take 1 tablet by kely th once daily. TAKE 1 TABLET BY KELY TH EVERY DAY loratadine 10 mg oral tablet (20 sources) Start: 2 End: 5 take 1 tablet by mouth once daily loratadine (CLARITIN) 10 mg tablet Indications: Asthma due to seasonal allergies (HCC) Take 1 tablet by mouth once daily. 90 tablet 3 09/25/2024 Active Comment on above: Take 1 tablet by kely th once daily. TAKE 1 TABLET BY KELY TH EVERY DAY OZEMPIC 0.25 mg or 0.5 mg (2 mg/3 mL) pen (19 sources) Start: 5 End: 5 inject 0.5 mg by subcutaneous injection every week OZEMPIC 0.25 mg or 0.5 mg (2 mg/3 mL) pen Indications: Type 2 diabetes mellitus without complication, without long-term current use of insulin (HCC) Inject 0.5 mg subcutaneously one time a week. 3 mL 2 12/01/2024 03/01/2025 Active Start: 09-25-2024 End: 11-29-2024 inject 0.5 mg by subcutaneous injection every week OZEMPIC 0.25 mg or 0.5 mg (2 mg/3 mL) pen Indications: Type 2 diabetes mellitus without complication, without long-term current use of insulin (HCC) Inject 0.5 mg subcutaneously one time a week. 3 mL 2 09/25/2024 11/29/2024 Discontinued Start: 09-25-2024 End: 12-24-2024 inject 0.5 mg by subcutaneous injection every week OZEMPIC 0.25 mg or 0.5 mg (2 mg/3 mL) pen Indications: Type 2 diabetes mellitus without complication, without long-term current use of insulin (HCC) Inject 0.5 mg subcutaneously one time a week. 3 mL 2 09/25/2024 12/24/2024 Active Start: 09-23-2024 End: 09-25-2024 inject 0.5 mg by subcutaneous injection every week OZEMPIC 0.25 mg or 0.5 mg (2 mg/3 mL) pen Indications: Type 2 diabetes mellitus without complication, without long-term current use of insulin (HCC) Inject 0.5 mg subcutaneously one time a week. 3 mL 2 09/23/2024 09/25/2024 Discontinued Start: 09-23-2024 End: 12-22-2024 inject 0.5 mg by subcutaneous injection every week OZEMPIC 0.25 mg or 0.5 mg (2 mg/3 mL) pen Indications: Type 2 diabetes mellitus without complication, without long-term current use of insulin (HCC) Inject 0.5 mg subcutaneously one time a week. 3 mL 2 09/23/2024 12/22/2024 Active Start: 08-13-2024 End: 09-23-2024 OZEMPIC 0.25 mg or 0.5 mg (2 mg/3 mL) pen Inject 0.25 mg subcutaneously one time a week. 08/13/2024 09/23/2024 Discontinued predniSONE 10 mg oral tablet (2 sources) Start: 06-16-2022 End: 06-25-2022 predniSONE (DELTASONE) 10 mg tablet Indications: Sciatica, right side Take 4 tabs daily for 3 days, then 2 tabs daily for 3 days, then 1 tab daily for 3 days with food. 21 tablet 0 06/16/2022 06/25/2022 Active Start: 11-16-2021 End: 11-21-2021 take 2 tablets by mouth once daily predniSONE (DELTASONE) 20 mg tablet Take 2 tablets by mouth once daily for 5 days. 10 tablet 0 11/16/2021 11/21/2021 Active Comment on above: Take 2 tablets by mo [facility] once daily for 5 days. Take 4 tabs daily fo r 3 days, then 2 tabs daily for 3 days, then 1 tab daily for 3 days with food. semaglutide (OZEMPIC) 0.25 mg or 0.5 mg (2 mg/3 mL) pen (4 sources) Start: End: semaglutide (OZEMPIC) 0.25 mg or 0.5 mg (2 mg/3 mL) pen Indications: Type 2 diabetes mellitus without complication, without long-term current use of insulin (HCC) Inject 0.25 mg subcutaneously one time a week. 3 mL 2 06/17/2024 09/15/2024 Active therapeutic multivitamin w/ iron (THERAGRAN-M) 27-0.4 mg tablet (20 sources) take 1 tablet by mouth once daily therapeutic multivitamin w/ iron (THERAGRAN-M) 27-0.4 mg tablet Take 1 tablet by mouth once daily. Active take 1 tablet by mouth once jeff y therapeutic multivitamin w/ iron (THERAGRAN- M) 27-0.4 mg tablet Take 1 tablet by mouth once daily. 0 Active Comment on above: Take 1 tablet by [facility] once daily. traMADol hydrochloride 50 mg oral tablet (1 source) Opioid Agonist Start: 03-06-2023 take 50 mg by mouth once daily Tramadol Active 50 MG PO DAILY March 06, 2023 12:00am Completed/Discontinued Medications Medication Drug Class(es) Dates Sig (Normalized) Sig (Original) acetaminophen 325 mg / HYDROcodone bitartrate 5 mg oral tablet (2 sources) Opioid Agonist Start: 02-22-2023 End: 03-06-2023 take 1 tablet by mouth every six hours as needed Hydrocodone-Acetam inophen Discontinued 1 TABLET PO EVERY 6 HOURS NEEDED 10 3 February 22, 2023 March 06, 2023 9:21am azithromycin 250 mg oral tablet (6 sources) Macrolide Antimicrobial Start: 04-18-2023 End: 04-23-2023 azithromycin (ZITHROMAX Z-VITALIY) 250 mg tablet Take 2 tablets day one, then, 1 tablet daily until gone. 6 tablet 04/18/2023 04/23/2023 Comment on above: Take 2 tablets day o ne, then, 1 tablet daily until gone. cefpodoxime 200 mg oral tablet (3 sources) Cephalosporin Antibacterial Start: 11-23-2021 End: 12-03-2021 take 1 tablet by mouth twice daily cefpodoxime (VANTIN) 200 mg tablet Indications: Acute non-recurrent maxillary sinusitis Take 1 tablet by mouth twice daily for 10 days. 20 tablet 11/23/2021 11/24/2021 Discontinued Comment on above: Take 1 tablet by kely twice daily for 10 days. Collagen (20 sources) End: 01-22-2023 COLLAGEN MISC Take 1 Dose by mouth once daily. Pt mixes one scope of collagen powder creamer in tea or coffee daily. Pt unable to confirm which OTC product/brand she takes. 01/22/2023 Discontinued End: 01-22-2023 COLLAGEN MISC Take 1 Dose by mouth once daily. Pt mixes one scope of collagen powder creamer in tea or coffee daily. Pt unable to confirm which OTC product/brand she takes. 0 01/22/2023 Discontinued COLLAGEN MISC Ta ke 1 Dose by mouth once daily. Pt mixes one scope of collagen powder creamer in tea or coffee daily. Pt unable to confirm which OTC product/brand she takes. 0 Active Comment on above: Take 1 Dose by mouth once daily. Pt mixes one scope of collagen powder creamer in tea or coffee daily. Pt unable to confirm which OTC product/brand she takes. 0.5 ml dulaglutide 1.5 mg/ml auto-injector (20 sources) GLP-1 Receptor Agonist Start: 05-03-2022 End: 10-30-2022 dulaglutide (TRULICITY) 1.5 mg/0.5 mL pen injector Inject 1.5 mg subcutaneously one time a week. Inject once per week. Discard Pen After 2 mL 5 05/03/2022 06/04/2022 Discontinued Start: 04-05-2022 End: 06-17-2024 inject 0.5 mL by subcutaneous injection every week dulaglutide (TRULICITY) 0.75 mg/0.5 mL pen injector Indications: Uncontrolled type 2 diabetes mellitus with hyperglycemia (HCC) INJECT 0.5 ML SUBCUTANEOUSLY ONCE A WEEK. DISCARD PEN AFTER. 6 mL 3 01/22/2023 06/17/2024 Discontinued Comment on above: Inject 1.5 mg subcut aneously one time a week. Inject once per week. Discard Pen After Inject 0.75 mg subcu taneously one time a week. Inject dose once per week. Discard Pen After INJECT 0.75MG SUBCUT ANEOUSLY ONCE A WEEK. DISCARD PEN AFTER Inject 0.75 mg subcu taneously one time a week. INJECT 0.5 ML SUBCUT ANEOUSLY ONCE A WEEK. DISCARD PEN AFTER. 2 ml ketorolac tromethamine 30 mg/ml injection (1 source) Nonsteroidal Anti-inflammatory Drug, Cyclooxygenase Inhibitor Start: 06-27-20 End: 06-27-20 keTORolac 60 mg injection (TORADOL) meloxicam 15 mg oral tablet (6 sources) Nonsteroidal Anti-inflammatory Drug Start: 06-27-20 End: 07-27-19 23 take 1 tablet by mouth once daily at mealtime meloxicam (MOBIC) 15 mg tablet Indications: Sciatica, right side Take 1 tablet by mouth once daily. With food. 30 tablet 5 06/27/2022 07/27/2022 Comment on above: Take 1 tablet by kely once daily. With food. 24 hr metFORMIN hydrochloride 500 mg extended release oral tablet (17 sources) Biguanide Start: 05-11-20 End: 07-23-19 23 take 500 mg by mouth at bedtime Metformin Discontinued 500 MG PO AT BEDTIME May 11, 2021 12:00am July 23, 2022 9:54am Start: 02-27-2021 End: 04-05-2022 take 2 tablets by mouth once daily at breakfast metFORMIN ER (GLUCOPHAGE XR) 500 mg 24 hr tablet TAKE 2 TABLETS BY MOUTH EVERY DAY WITH BREAKFAST 60 tablet 02/27/2021 03/23/2022 Discontinued Comment on above: TAKE 2 TABLETS BY MO [facility] EVERY DAY WITH BREAKFAST tiZANidine 4 mg oral tablet (3 sources) Central alpha-2 Adrenergic Agonist Start: 06-27-2022 End: 07-07-2022 take 1 tablet by mouth every eight hours as needed for muscle spasms tiZANidine (ZANAFLEX) 4 mg tablet Indications: Sciatica, right side Take 1 tablet by mouth every 8 hours as needed (muscle spasms) for up to 10 days. 30 tablet 06/27/2022 07/07/2022 Comment on above: Take 1 tablet by kely th every 8 hours as needed (muscle spasms) for up to 10 days. Problems Active Problems Problem Classification Problem Date Documented Da te Episodic/Chronic Acute cerebrovascular disease (20 sources) Intracranial hemorrhage; Translations: [Nontraumatic intracranial hemorrhage, unspecified] Onset: 05-11-2021 05-25-2021 Chronic Anxiety disorders (20 sources) Anxiety state; Translations: [Generalized anxiety disorder] Onset: 05-13-2017 Chronic Asthma (4 sources) Allergic asthma; Translations: [Unspecified asthma, uncomplicated] Onset: 06-17-2024 06-17-2024 Chronic Diabetes mellitus with complications (20 sources) Type II diabetes mellitus uncontrolled; Translations: [Type 2 diabetes mellitus with hyperglycemia] Onset: 08-25-2019 08-25-2019 Chronic Diabetes mellitus without complication (20 sources) Type 2 diabetes mellitus without complication; Translations: [Type 2 diabetes mellitus without complications] Onset: 05-13-2014 Resolved: 05-13-2014 Chronic Disorders of lipid metabolism (20 sources) Mixed hyperlipidemia; Translations: [Mixed hyperlipidemia] Onset: 08-23-2015 Chronic Diverticulosis and diverticulitis (20 sources) Diverticulosis of colon; Translations: [Diverticulosis of large intestine without perforation or abscess without bleeding] Onset: 01-21-2008 01-21-2008 Chronic E Codes: Natural/environment (1 source) Tick bite; Translations: [Bitten or stung by nonvenomous insect and other nonvenomous arthropods, initial encounter] Episodic Essential hypertension (20 sources) Hypertensive disorder; Translations: [Essential (primary) hypertension] Onset: 05-01-2012 Resolved: 05-13-2014 Chronic Nonspecific chest pain (1 source) Tight chest; Translations: [Other chest pain] 04-19-2023 Episodic Osteoarthritis (20 sources) Inflammation of joint of both hands; Translations: [Primary osteoarthritis, right hand] Onset: 04-05-2022 Chronic Other acquired deformities (2 sources) Degenerative spondylolisthesis; Translations: [Spondylolisthesis, site unspecified] 07-23-2022 Episodic Other congenital anomalies (20 sources) Congenital anomaly of skin; Translations: [Other specified congenital malformations of skin] Onset: 11-13-2007 11-13-2007 Chronic Other connective tissue disease (1 source) Trochanteric bursitis, right hip; Translations: [Enthesopathy of hip region] 03-06-2023 Episodic Other connective tissue disease (1 source) Iliotibial band syndrome, unspecified leg; Translations: [Other disorders of muscle, ligament, and fascia] 03-06-2023 Episodic Other fractures (1 source) Closed fracture of single left rib; Translations: [Fracture of one rib, left side, initial encounter for closed fracture] 04-22-2023 Episodic Other gastrointestinal disorders (1 source) Diarrhea; Translations: [Diarrhea, unspecified] Episodic Other infections; including parasitic (1 source) Personal history of other infectious and parasitic diseases; Translations: [History of COVID-19] 04-29-2023 Episodic Other injuries and conditions due to external causes (1 source) Injury of ribs; Translations: [Unspecified injury of thorax, initial encounter] 04-22-2023 Episodic Other lower respiratory disease (1 source) Dyspnea; Translations: [Dyspnea, unspecified] 04-19-2023 Episodic Other nervous system disorders (1 source) Loss of taste; Translations: [Parageusia] 04-19-2023 Episodic Other nervous system disorders (1 source) Loss of sense of smell; Translations: [Anosmia] 04-19-2023 Episodic Other non-traumatic joint disorders (5 sources) Hip pain; Translations: [Pain in unspecified hip] Episodic Other non-traumatic joint disorders (1 source) Pain in right hip; Translations: [Pain in right hip] Onset: 03-01-2023 Episodic Other upper respiratory disease (1 source) Congestion of nasal sinus; Translations: [Nasal congestion] Episodic Other upper respiratory infections (1 source) Viral upper respiratory tract infection; Translations: [Acute upper respiratory infection, unspecified] 11-23-2021 Episodic Residual codes; unclassified (1 source) Tobacco use and exposure - finding; Translations: [Tobacco use] Episodic Spondylosis; intervertebral disc disorders; other back problems (20 sources) Degeneration of thoracic intervertebral disc; Translations: [Other intervertebral disc degeneration, thoracic region] Onset: 04-08-2013 04-08-2013 Chronic Substance-related disorders (3 sources) Smoker; Translations: [Nicotine dependence, unspecified, uncomplicated] Onset: 06-17-2024 06-17-2024 Chronic Superficial injury; contusion (2 sources) Contusion of hip; Translations: [Contusion of right hip, initial encounter] 05-19-2021 Episodic Thyroid disorders (20 sources) Hypothyroidism; Translations: [Hypothyroidism, unspecified] Onset: 04-05-2022 Chronic Unclassified (1 source) Low back pain, unspecified; Translations: [Low back pain, unspecified] Onset: 08-22-2022 Viral infection (1 source) Disease caused by 2019-nCoV; Translations: [COVID-19] 04-19-2023 Episodic Past or Other Problems Problem Classification Problem Date Documented Da te Episodic/Chronic E Codes: Fall (20 sources) Fall; Translations: [Unspecified fall, initial encounter] Onset: 05-11-2021 05-13-2021 Episodic Hemorrhoids (20 sources) Internal hemorrhoids; Translations: [Other hemorrhoids] Onset: 01-21-2008 01-21-2008 Episodic Intracranial injury (20 sources) Subarachnoid hemorrhage due to traumatic injury; Translations: [Traumatic subarachnoid hemorrhage without loss of consciousness, sequela] Onset: 05-11-2021 Episodic Other and unspecified benign neoplasm (20 sources) Benign neoplasm of colon; Translations: [Benign neoplasm of colon, unspecified] Onset: 01-21-2008 01-21-2008 Episodic Other connective tissue disease (20 sources) Calcaneal spur; Translations: [Calcaneal spur, unspecified foot] Onset: 07-14-2007 07-14-2007 Episodic Other non-traumatic joint disorders (2 sources) Pain in left knee; Translations: [Pain in joint, lower leg] Onset: 06-17-2024 06-17-2024 Episodic Screening and history of mental health and substance abuse codes (2 sources) Patient encounter status; Translations: [Encounter for screening for depression] Onset: 06-17-2024 06-17-2024 Episodic Spondylosis; intervertebral disc disorders; other back problems (20 sources) Backache; Translations: [Dorsalgia, unspecified] Onset: 04-21-2013 04-21-2013 Episodic Results Test Name Value Interpretation Reference Range Facility [facility] 05-03-2025 [facility] Telephone (FAMPWS) SHEREE CHAVEZ ([id number]) 1945 F Date Time Provider Department 05/03/25 DEIRDRE QUIÑONES [facility] During your visit today, we recorded the following information about you: Gay Garcia 05/03/2025 12:55 PM Signed Patient requesting the following medication: semaglutide (OZEMPIC) 0.25 mg or 0.5 mg (2 mg/3 mL) pen () Patient last seen 09/23/24 Future visit scheduled: no PHARMACY: JOVANNI/Deirdre Ledezma MD 05/03/2025 3:40 PM Signed OK to refill as ordered Due to have office visit and labs as ordered in 1-3 months MD Sanjiv Caban Kathryn, MA 05/03/2025 3:50 PM Signed Message left for pt to call back. MARIAM Whelan Kathryn, MA 05/04/2025 6:54 PM Signed Mychart message was sent notifying pt that she needs appt. Pt has read message. No appt made. Kourtney Kincaid MA Allergies As of Date: 05/03/2025 Noted Allergy Reaction PALM OIL 08/20/2018 8 - GI Upset ACCUPRIL (QUINAPRIL HCL) 08/01/2006 14 - Other: See Comments Comments: Pt unsure why this is listed. Not sure what allergy is ASA (SALICYLATES) 04/20/2005 8 - GI Upset PENICILLINS 04/20/2005 4 - Hives VICODIN (HYDROCODONE-ACETAMINO PHE*04/20/2005 8 - GI Upset BEES 09/07/2006 CODEINE 06/14/2005 5 - Intolerance DOXYCYCLINE 11/23/2021 8 - GI Upset METFORMIN 08/23/2015 8 - GI Upset Comments: diarrhea higher dose Date Reviewed: 09/23/2024 Reviewed by: Odails Valentino LPN - Fully Assessed Reason for Visit: requesting medication [Other] Primary Visit Diagnosis:Mixed hyperlipidemia [E78.2] Other Visit Diagnoses:Type 2 diabetes mellitus without complication, without long-term current use of insulin (HCC) [E11.9] Hypertension, unspecified type [I10] Hypothyroidism, unspecified type [E03.9] Order(s):OZEMPIC 0.25 mg or 0.5 mg (2 mg/3 mL) penInject 0.5 mg subcutaneously one time a week.Disp: 3 mLRfl: 2 COMPREHENSIVE METABOLIC PANEL [SQCMP] Order #: [id number] FUTURE HEMOGLOBIN A1C [LYJWU1B] Order #: [id number] FUTURE LIPID PANEL, FASTING [SQLIPB] Order #: [id number] FUTURE COMPLETE BLOOD COUNT [SQCBC] Order #: [id number] FUTURE ALBUMIN/CREATININE RATIO, URINE [SQUACR] Order #: [id number] FUTURE THYROID STIMULATING HORMONE [SQTSH] Order #: [id number] FUTURE Prescriptions as of 05/04/2025 - OZEMPIC 0.25 mg or 0.5 mg (2 mg/3 mL) pen Inject 0.5 mg subcutaneously one time a week. - ALPRAZolam (XANAX) 0.5 mg tablet Take 1 tablet by mouth two times a day as needed for up to 90 days. - atorvastatin (LIPITOR) 10 mg tablet Take 1 tablet by mouth once daily. - lisinopril (ZESTRIL) 10 mg tablet Take 1 tablet by mouth once daily. - fluticasone (FLONASE) 50 mcg/actuation nasal spray Use 2 Sprays in each nostril once daily. Rinse mouth after use. - gabapentin (NEURONTIN) 100 mg capsule Take 1 capsule by mouth three times a day for 180 days. - loratadine (CLARITIN) 10 mg tablet Take 1 tablet by mouth once daily. - glimepiride (AMARYL) 4 mg tablet Take 1 tablet by mouth two times a day with meals. - albuterol HFA (PROVENTIL HFA, VENTOLIN HFA) 90 mcg/actuation inhaler Inhale 2 Puffs as instructed every 6 hours as needed for wheezing/shortness of breath. - levothyroxine (SYNTHROID) 50 mcg tablet Take 1 tablet by mouth daily before breakfast. - FLUoxetine (PROZAC) 10 mg capsule Take 1 capsule by mouth every afternoon. - therapeutic multivitamin w/ iron (THERAGRAN-M) 27-0.4 mg tablet Take 1 tablet by mouth once daily. - cannabidiol, CBD, (CANNABIDIOL ORAL) Take 1-2 Each by mouth once daily. Pt reports taking 1-2 CBD gummies OTC daily for pain and muscle aches. Pt purchases these online and was unable to confirm the dose or brand. Pt does not report endorsement of this medication from a provider. - famotidine (PEPCID) 20 mg tablet Take 1 tablet by mouth at bedtime as needed. 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 Normal [facility] CNPNon 12-01-2024 CNPN Telephone (INTMWS) SHEREE CHAVEZ ([id number]) 1945 F Date Time Provider Department 12/01/24 DEIRDRE QUIÑONES INTMWS During your visit today, we recorded the following information about you: Lalita Mario LPN 12/01/2024 10:30 AM Signed Electronic PA rec'd and completed for ozempic ANNY. This was completed and approved. Prior authorization approved Payer: [employer] Part D [phone] Note from payer: Request Reference Number: [id number]. OZEMPIC INJ 2MG/3ML is approved through 07/07/2025. Your patient may now fill this prescription and it will be covered. Approval Details Authorization number: [id number] Authorized from December 01, 2024 to July 07, 2025 Electronic appeal: Not supported View History Notes Time User Attachment Attachment received from payer. 12/01/2024 8:31 AM [facility] Priorauth In Document Medication Being Authorized OZEMPIC 0.25 mg or 0.5 mg (2 mg/3 mL) pen Inject 0.5 mg subcutaneously one time a week. Dispense: 3 mL Refills: 2 ANNY Start: 12/01/2024 End: 03/01/2025 Class: Normal Diagnoses: Type 2 diabetes mellitus without complication, without long-term current use of insulin (HCC) This order has been released to its destination. To be filled at: e- [facility]/pharmacy #[id number] - [place] [address] - [address] [phone] Pt notified via my chart. Allergies As of Date: 12/01/2024 Noted Allergy Reaction PALM OIL 08/20/2018 8 - GI Upset ACCUPRIL (QUINAPRIL HCL) 08/01/2006 14 - Other: See Comments Comments: Pt unsure why this is listed. Not sure what allergy is ASA (SALICYLATES) 04/20/2005 8 - GI Upset PENICILLINS 04/20/2005 4 - Hives VICODIN (HYDROCODONE-ACETAMINO PHE*04/20/2005 8 - GI Upset BEES 09/07/2006 CODEINE 06/14/2005 5 - Intolerance DOXYCYCLINE 11/23/2021 8 - GI Upset METFORMIN 08/23/2015 8 - GI Upset Comments: diarrhea higher dose Date Reviewed: 09/23/2024 Reviewed by: Odalis Valentino LPN - Fully Assessed Reason for Visit: Insurance Authorization [[id number]] Prescriptions as of 12/01/2024 - OZEMPIC 0.25 mg or 0.5 mg (2 mg/3 mL) pen Inject 0.5 mg subcutaneously one time a week. - ALPRAZolam (XANAX) 0.5 mg tablet Take 1 tablet by mouth two times a day as needed for up to 90 days. - fluticasone (FLONASE) 50 mcg/actuation nasal spray Use 2 Sprays in each nostril once daily. Rinse mouth after use. - gabapentin (NEURONTIN) 100 mg capsule Take 1 capsule by mouth three times a day for 180 days. - loratadine (CLARITIN) 10 mg tablet Take 1 tablet by mouth once daily. - glimepiride (AMARYL) 4 mg tablet Take 1 tablet by mouth two times a day with meals. - acetaminophen (TYLENOL ARTHRITIS PAIN) 650 mg CR tablet Take 1 tablet by mouth every 8 hours as needed. - albuterol HFA (PROVENTIL HFA, VENTOLIN HFA) 90 mcg/actuation inhaler Inhale 2 Puffs as instructed every 6 hours as needed for wheezing/shortness of breath. - levothyroxine (SYNTHROID) 50 mcg tablet Take 1 tablet by mouth daily before breakfast. - FLUoxetine (PROZAC) 10 mg capsule Take 1 capsule by mouth every afternoon. - atorvastatin (LIPITOR) 10 mg tablet Take 1 tablet by mouth once daily. - lisinopril (ZESTRIL) 10 mg tablet Take 1 tablet by mouth once daily. - clindamycin (CLEOCIN) 300 mg capsule Take 1 capsule by mouth four times daily. - therapeutic multivitamin w/ iron (THERAGRAN-M) 27-0.4 mg tablet Take 1 tablet by mouth once daily. - cannabidiol, CBD, (CANNABIDIOL ORAL) Take 1-2 Each by mouth once daily. Pt reports taking 1-2 CBD gummies OTC daily for pain and muscle aches. Pt purchases these online and was unable to confirm the dose or brand. Pt does not report endorsement of this medication from a provider. - famotidine (PEPCID) 20 mg tablet Take 1 tablet by mouth at bedtime as needed. Meds Comments as of 05/19/2018: Takes Multi-vitamin and extra C Problem List As Of Date 12/01/2024 Noted Resolved Essential hypertension, benign [I10] 05/13/2014 DIABETES MELLITUS TYPE II-UNCOMPL [E11.9] 05/13/2014 Mixed hyperlipidemia [E78.2] Anxiety state [F41.1] CALCANEAL SPUR [M77.30] 07/14/2007 SKIN ANOMALY NEC [Q82.8] 11/13/2007 BENIGN NEOPLASM LG BOWEL [D12.6] 01/21/2008 INT HEMORRHOID W/O COMPL [K64.8] 01/21/2008 DIVERTICULOSIS OF COLON W/O BLEED [K57.30] 01/21/2008 Hypertension [I10] 05/01/2012 DDD (degenerative disc disease), thoracic [M51.*04/08/2013 Backache, unspecified [M54.9] 04/21/2013 Pain in thoracic spine [M54.6] 04/21/2013 Diabetes mellitus type 2, uncomplicated (HCC) [*05/13/2014 Uncontrolled type 2 diabetes mellitus with hype*08/25/2019 Subdural hematoma (HCC) [S06.5XAA] 05/11/2021 TBI (traumatic brain injury) (HCC) [S06.9XAA] 05/11/2021 Fall [W19.XXXA] 05/11/2021 Subarachnoid hemorrhage following injury, no lo*05/11/2021 Intracranial hemorrhage (HCC) [I62.9] 05/25/2021 Hypothyroidism [ (more content not included)... Normal [facility] 10-14-2024 [facility] Telephone (PHARMN) SHEREE CHAVEZ ([id number]) 1945 F Date Time Provider Department 10/14/24 NUHA JOHNSTON During your visit today, we recorded the following information about you: Nuha Johnston HUC 10/14/2024 2:05 PM Signed Telephoned the patient to schedule a new Primary Care pharmacy appt. Left a message. Nuha Johnston HUC 10/16/2024 4:21 PM Signed Telephoned the patient to schedule a new Primary Care pharmacy appt. Left a message. Made two attempts to contact the patient. Patient was sent [employer] message. If the patient returns a call, an appt will be scheduled. Encounter routed to the clinical pharmacist. Allergies As of Date: 10/14/2024 Noted Allergy Reaction PALM OIL 08/20/2018 8 - GI Upset ACCUPRIL (QUINAPRIL HCL) 08/01/2006 14 - Other: See Comments Comments: Pt unsure why this is listed. Not sure what allergy is ASA (SALICYLATES) 04/20/2005 8 - GI Upset PENICILLINS 04/20/2005 4 - Hives VICODIN (HYDROCODONE-ACETAMINO PHE*04/20/2005 8 - GI Upset BEES 09/07/2006 CODEINE 06/14/2005 5 - Intolerance DOXYCYCLINE 11/23/2021 8 - GI Upset METFORMIN 08/23/2015 8 - GI Upset Comments: diarrhea higher dose Date Reviewed: 09/23/2024 Reviewed by: Odalis Valentino LPN - Fully Assessed Reason for Visit: New Primary Care Pharmacy Appt. [Other] Prescriptions as of 11/11/2024 - ALPRAZolam (XANAX) 0.5 mg tablet Take 1 tablet by mouth two times a day as needed for up to 90 days. - fluticasone (FLONASE) 50 mcg/actuation nasal spray Use 2 Sprays in each nostril once daily. Rinse mouth after use. - gabapentin (NEURONTIN) 100 mg capsule Take 1 capsule by mouth three times a day for 180 days. - loratadine (CLARITIN) 10 mg tablet Take 1 tablet by mouth once daily. - OZEMPIC 0.25 mg or 0.5 mg (2 mg/3 mL) pen Inject 0.5 mg subcutaneously one time a week. - glimepiride (AMARYL) 4 mg tablet Take 1 tablet by mouth two times a day with meals. - acetaminophen (TYLENOL ARTHRITIS PAIN) 650 mg CR tablet Take 1 tablet by mouth every 8 hours as needed. - albuterol HFA (PROVENTIL HFA, VENTOLIN HFA) 90 mcg/actuation inhaler Inhale 2 Puffs as instructed every 6 hours as needed for wheezing/shortness of breath. - levothyroxine (SYNTHROID) 50 mcg tablet Take 1 tablet by mouth daily before breakfast. - FLUoxetine (PROZAC) 10 mg capsule Take 1 capsule by mouth every afternoon. - atorvastatin (LIPITOR) 10 mg tablet Take 1 tablet by mouth once daily. - lisinopril (ZESTRIL) 10 mg tablet Take 1 tablet by mouth once daily. - clindamycin (CLEOCIN) 300 mg capsule Take 1 capsule by mouth four times daily. - therapeutic multivitamin w/ iron (THERAGRAN-M) 27-0.4 mg tablet Take 1 tablet by mouth once daily. - cannabidiol, CBD, (CANNABIDIOL ORAL) Take 1-2 Each by mouth once daily. Pt reports taking 1-2 CBD gummies OTC daily for pain and muscle aches. Pt purchases these online and was unable to confirm the dose or brand. Pt does not report endorsement of this medication from a provider. - famotidine (PEPCID) 20 mg tablet Take 1 tablet by mouth at bedtime as needed. Meds Comments as of 05/19/2018: Takes Multi-vitamin and extra C Problem List As Of Date 10/14/2024 Noted Resolved Essential hypertension, benign [I10] 05/13/2014 DIABETES MELLITUS TYPE II-UNCOMPL [E11.9] 05/13/2014 Mixed hyperlipidemia [E78.2] Anxiety state [F41.1] CALCANEAL SPUR [M77.30] 07/14/2007 SKIN ANOMALY NEC [Q82.8] 11/13/2007 BENIGN NEOPLASM LG BOWEL [D12.6] 01/21/2008 INT HEMORRHOID W/O COMPL [K64.8] 01/21/2008 DIVERTICULOSIS OF COLON W/O BLEED [K57.30] 01/21/2008 Hypertension [I10] 05/01/2012 DDD (degenerative disc disease), thoracic [M51.*04/08/2013 Backache, unspecified [M54.9] 04/21/2013 Pain in thoracic spine [M54.6] 04/21/2013 Diabetes mellitus type 2, uncomplicated (HCC) [*05/13/2014 Uncontrolled type 2 diabetes mellitus with hype*08/25/2019 Subdural hematoma (HCC) [S06.5XAA] 05/11/2021 TBI (traumatic brain injury) (HCC) [S06.9XAA] 05/11/2021 Fall [W19.XXXA] 05/11/2021 Subarachnoid hemorrhage following injury, no lo*05/11/2021 Intracranial hemorrhage (HCC) [I62.9] 05/25/2021 Hypothyroidism [E03.9] 04/05/2022 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, 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] 04/05/2022 Traumatic subdural hemorrhage with loss of cons*06/17/2024 DM type 2 with diabetic mixed hyperlipidemia (H*06/17/2024 Encounter Status:Closed by NUHA JOHNSTON on 11/11/24 [facility] CNOVon 09-23-2024 CNOV Office Visit (FAMPWS ) SHEREE CHAVEZ ([id number]) 1945 F Date Time Provider Department 09/23/24 9:20 AM SILVIA VAZQUEZ During your visit today, we recorded the following information about you: Pulse Respiration Blood pressure Weight 85/minute 16/minute 110/70 76.4 kg Silvia Vazquez APRN.MEDICAL AFFAIRS LEADER 09/23/2024 10:14 AM Signed This is a 78 year old female who presents today with: Patient presents with: Follow Up: 3 month follow up with labs HISTORY OF PRESENT ILLNESS: Sheree Chavez is a 78 year old female. Patient presents with: Follow Up: 3 month follow up with labs 3 month follow up Sciatica pain, right side. Has seen pain management in the past, Dr. Toribio. Has had injections in the past. Has been trying to stretch. Taking Gabapentin 100 mg TID. DM: Reports overall feeling well. Medication side effects: No. Home sugar checks: Has not been checking glucose at home Hypoglycemic spells: No. Watching diet: Yes. Needs to improve diet. Unexpected weight loss: No. Polyuria, polydipsia: No. Vision Changes: No. Foot lesions or numbness or pain: No.' Last A1c 11.4, now 9.4 . Was taking glimepiride 4 mg BID but stopped due to low blood sugar. Not using a glucometer but a smart watch. Last office visit started on Ozempic 0.25 mg once weekly. Had Eye exam. Working on lifestyle changes at home. HTN: Denies checking BP at home or having chest pain or sob.Taking Lisinopril 10 mg once daily. Denies chest pain, palpitations, dizziness, or edema. Anxiety: Taking Xanax 0.5 mg 1 tab po 1-2 tabs daily. Stopped taking Prozac 10 mg once daily. Did not feel like Prozac was working. She reports that the Xanax is helping her, she is feeling better. Thyroid: Taking Levothyroxine 50 mcg once daily. Denies any missed dosages. Lipids: Denies any issues with current regimen of Lipitor 10 mg once daily. Smoking PAST MEDICAL HISTORY: PAST MEDICAL HISTORY Diagnosis Date Absence of menstruation Anxiety state, unspecified Benign neoplasm of colon Diverticulosis of colon (without mention of hemorrhage) Esophageal reflux Essential hypertension, benign Internal hemorrhoids without mention of complication Mental disorder Obesity, unspecified Other and unspecified hyperlipidemia Type II or unspecified type diabetes mellitus without mention of complication, not stated as uncontrolled PAST SURGICAL HISTORY Procedure Laterality Date BIOPSY BREAST OPEN INCISIONAL Bx of breast, incisional COLONOSCOPY FLX DX W/COLLJ SPEC WHEN PFRMD 02/21/15 Colonoscopy COLSC FLX W/RMVL OF TUMOR POLYP LESION SNARE TQ 01/21/08 DESTRUCTION BENIGN LESIONS UP TO 14 11/13/07 Partially avulsed SK left upper arm PAST SURGICAL HISTORY OF RIGHT TRIGGER THUMB PAST SURGICAL HISTORY OF 06/20 cataract revision; bilateral eyes PAST SURGICAL HISTORY OF Bilateral 2015 Cataract surgery ALLERGIES Palm Oil, Accupril [Quinapril Hcl], Asa [Salicylates], Penicillins, Vicodin [Hydrocodone-Acetamino phen], Bees, Codeine, Doxycycline, and Metformin MEDICATIONS Current Outpatient Medications Medication Sig ALPRAZolam (XANAX) 0.5 mg tablet Take 1 tablet by mouth two times a day as needed for up to 90 days. glimepiride (AMARYL) 4 mg tablet Take 1 tablet by mouth two times a day with meals. acetaminophen (TYLENOL ARTHRITIS PAIN) 650 mg CR tablet Take 1 tablet by mouth every 8 hours as needed. albuterol HFA (PROVENTIL HFA, VENTOLIN HFA) 90 mcg/actuation inhaler Inhale 2 Puffs as instructed every 6 hours as needed for wheezing/shortness of breath. levothyroxine (SYNTHROID) 50 mcg tablet Take 1 tablet by mouth daily before breakfast. FLUoxetine (PROZAC) 10 mg capsule Take 1 capsule by mouth every afternoon. atorvastatin (LIPITOR) 10 mg tablet Take 1 tablet by mouth once daily. gabapentin (NEURONTIN) 100 mg capsule Take 1 capsule by mouth three times a day for 180 days. loratadine (CLARITIN) 10 mg tablet Take 1 tablet by mouth once daily. lisinopril (ZESTRIL) 10 mg tablet Take 1 tablet by mouth once daily. fluticasone (FLONASE) 50 mcg/actuation nasal spray Use 2 Sprays in each nostril once daily. Rinse mouth after use. clindamycin (CLEOCIN) 300 mg capsule Take 1 capsule by mouth four times daily. therapeutic multivitamin w/ iron (THERAGRAN-M) 27-0.4 mg tablet Take 1 tablet by mouth once daily. cannabidiol, CBD, (CANNABIDIOL ORAL) Take 1-2 Each by mouth once daily. Pt reports taking 1-2 CBD gummies OTC daily for pain and muscle aches. Pt purchases these online and was unable to confirm the dose or brand. Pt does not report endorsement of this medication from a provider. famotidine (PEPCID) 20 mg tablet Take 1 tablet by mouth at bedtime as needed. No current facility-administered medications for this visit. FAMILY HISTORY Problem Relation Age of Onset Cancer Father LIVER Heart Father CABG Heart Mother Osteoporosis (more content not included)... Normal [facility] Comprehensive metabolic 2000 panelon 09-21-2024 Albumin [Mass/Vol] 4.0 g/dL Normal 3.9-4.9 [facility] Comment on above: Order Comment: Speci men Type: BLOOD SPECIMENOrdering Facility: [facility] Address: [facility] [place] [address] Performed By: #### 2 4323-8 ####[facility] LABCLIA [id number] [place] [address] [place] ALP [Catalytic activity/Vol] 27 U/L Low 34-123 [facility] Comment on above: Order Comment: Speci men Type: BLOOD SPECIMENOrdering Facility: [facility] Address: [address] [place] [address] Performed By: #### 2 4323-8 ####[facility] LABCLIA [id number] [place] [id number] [place] ALT [Catalytic activity/Vol] 21 U/L Normal 7-38 [facility] Comment on above: Order Comment: Speci men Type: BLOOD SPECIMENOrdering Facility: [facility] Address: [address] [place] [address] Performed By: #### 2 4323-8 ####[facility] LABCLIA [id number] [address] [address] [place] Anion gap [Moles/Vol] 11 mmol/L Normal 8-15 [facility] Comment on above: Order Comment: Speci men Type: BLOOD SPECIMENOrdering Facility: [facility] Address: [address] [place] [address] Performed By: #### 2 4323-8 ####[facility] LABCLIA [id number] [address] [address] [place] AST [Catalytic activity/Vol] 22 U/L Normal 13-35 [facility] Comment on above: Order Comment: Speci men Type: BLOOD SPECIMENOrdering Facility: [facility] Address: [address] [place] [address] Performed By: #### 2 4323-8 ####[facility] LABCLIA [id number] [facility] [place] [id number] [place] Bilirubin [Mass/Vol] 0.4 mg/dL Normal 0.2-1.3 [facility] Comment on above: Order Comment: Speci men Type: BLOOD SPECIMENOrdering Facility: [facility] Address: [address] [place] [address] Performed By: #### 2 4323-8 ####[facility] LABCLIA [id number] [facility] [address] [place] Calcium [Mass/Vol] 10.1 mg/dL Normal 8.5-10.2 [facility] Comment on above: Order Comment: Speci men Type: BLOOD SPECIMENOrdering Facility: [facility] Address: [address] [place] [address] Performed By: #### 2 4323-8 ####[facility] LABCLIA [id number] [place] [id number] [place] Chloride [Moles/Vol] 99 mmol/L Normal 98-107 [facility] Comment on above: Order Comment: Speci men Type: BLOOD SPECIMENOrdering Facility: [facility] Address: [address] [place] [address] Performed By: #### 2 4323-8 ####[facility] LABCLIA [id number] [facility] [place] [id number] [place] CO2 [Moles/Vol] 24 mmol/L Normal 22-30 [facility] Comment on above: Order Comment: Speci men Type: BLOOD SPECIMENOrdering Facility: [facility] Address: [address] [place], [place] [address] Performed By: #### 2 4323-8 ####[facility] LABIA [id number] [place] [id number] [place] [facility] Creatinine [Mass/Vol] 0.73 mg/dL Normal 0.58-0.96 [facility] Comment on above: Order Comment: Speci men Type: BLOOD SPECIMENOrdering Facility: [facility] Address: [address] [place] [address] Performed By: #### 2 4323-8 ####[facility] LABIA [id number] [place] [address] [place] Creatinine and Glomerular filtration rate.predicted panel (S/P/Bld) 83 mL/min/1.73m??? Normal >=60 [facility] Comment on above: Order Comment: Speci men Type: BLOOD SPECIMENOrdering Facility: [facility] Address: [address] [place] [address] Result Comment: Martha mated Glomerular Filtration Rate (eGFR) is calculated using the 2020 CKD-EPI creatinine equation. This equation utilizes serum creatinine, sex, and age as parameters. The creatinine assay has traceable calibration to isotope dilution-mass spectrometry. Refer to KDIGO guidelines for clinical interpretation. In patients with unstable renal function, e.g. those with acute kidney injury, the eGFR may not accurately reflect actual GFR. Performed By: #### 2 4323-8 ####[facility] LABIA [id number] [place] [id number] [place] Glucose [Mass/Vol] 227 mg/dL High 74-99 [facility] Comment on above: Order Comment: Speci men Type: BLOOD SPECIMENOrdering Facility: [facility] Address: [address] [place] [address] Result Comment: The [place] Diabetes Association (ADA) provides guidance for cutoff values for fasting glucose and random glucose. The ADA defines fasting as no caloric intake for at least 8 hours. Fasting plasma glucose results between 100 to 125 mg/dL indicate increased risk for diabetes (prediabetes). Fasting plasma glucose results greater than or equal to 126 mg/dL meet the criteria for diagnosis of diabetes. In the absence of unequivocal hyperglycemia, results should be confirmed by repeat testing. In a patient with classic symptoms of hyperglycemia or hyperglycemic crisis, random plasma glucose results greater than or equal to 200 mg/dL meet the criteria for diagnosis of diabetes. Reference: Standards of Medical Care in Diabetes 2016, [place] Diabetes Association. Diabetes Care. 2016.39(Suppl 1). Performed By: #### 2 4323-8 ####[facility] LABCLIA [id number] [place] [address] [place] Potassium [Moles/Vol] 4.9 mmol/L Normal 3.7-5.1 [facility] Comment on above: Order Comment: Speci men Type: BLOOD SPECIMENOrdering Facility: [facility] Address: [address] [place] [address] Performed By: #### 2 4323-8 ####[facility] LABCLIA [id number] [place] [address] [place] Protein [Mass/Vol] 7.0 g/dL Normal 6.3-8.0 [facility] Comment on above: Order Comment: Speci men Type: BLOOD SPECIMENOrdering Facility: [facility] Address: [address] [place] [address] Performed By: #### 2 4323-8 ####[facility] LABCLIA [id number] [place] [id number] [place] Sodium [Moles/Vol] 134 mmol/L Low 136-144 [facility] Comment on above: Order Comment: Speci men Type: BLOOD SPECIMENOrdering Facility: [facility] Address: [address] [place] [address] Performed By: #### 2 4323-8 ####[facility] LABCLIA [id number] [facility] [place] [id number] [place] Urea nitrogen [Mass/Vol] 15 mg/dL Normal 7-21 [facility] Comment on above: Order Comment: Speci men Type: BLOOD SPECIMENOrdering Facility: [facility] Address: [address] [place] [address] Performed By: #### 2 4323-8 ####[facility] [id number] [place] [id number] [facility] [place] HbA1c (Bld)on 09-21-2024 Average glucose Estimated from glycated hemoglobin (Bld) [Mass/Vol] 223 mg/dL Normal [facility] Comment on above: Order Comment: José Miguel stanley Type: BLOOD SPECIMENOrdering Facility: [facility] Address: [address] [place] [address] Result Comment: eAG: (Estimated average glucose) is a calculated value from HgbA1c and is mechanical service representative of the average blood glucose level in the last 2-3 month period. Performed By: #### 5 5454-3 ####[facility] [id number] [address] [place] HbA1c (Bld) [Mass fraction] 9.4 % High 4.3-5.6 [facility] Comment on above: Order Comment: José Miguel stanley Type: BLOOD SPECIMENOrdering Facility: [facility] Address: [address] [place] [address] Result Comment: Dimitrios ican Diabetes Association guidelines indicate that patients with HgbA1c in the range 5.7-6.4% are at increased risk for development of diabetes, and intervention by lifestyle modification may be beneficial. HgbA1c greater or equal to 6.5% is considered diagnostic of diabetes. Performed By: #### 5 5454-3 ####[facility] [id number] [place] [id number] [facility] [place] CNOVon 06-17-2024 CNOV Office Visit (FAMPWS ) SHEREE CHAVEZ ([id number]) 1945 F Date Time Provider Department 06/17/24 10:00 AM SILVIA VAZQUEZ During your visit today, we recorded the following information about you: Pulse Respiration Blood pressure Weight 87/minute 16/minute 100/70 78.6 kg Height 1.553 m Silvia Vazquez APRN.MEDICAL AFFAIRS LEADER 06/17/2024 3:10 PM Signed Sheree Chavez is a 78 year old female here for a Medicare wellness visit. Medicare Health Risk Assessment General Health Very good Exercise: Minutes/Day 40 min Exercise: Days/Week 5 days Alcohol: Daily Use Monthly or less Alcohol: Drinks/Day Patient does not drink Alcohol: 6 or more drinks Never Feel off balance No Concerns: Teeth/Dentures No Concerns: Sexual function No Troubled by feelings Anxious Frequency: Eating healthy diet Nearly every day ADLs requiring help None of the above Safety precautions in home/vehicle Yes Smoke, vape, chews tobacco Yes, and I might quit Difficulty hearing No Difficulty seeing No Current Providers Specialists: I have reviewed specialist-related care of the patient in the medical record. Pain Management in the past, had injections in the past for bursitis and sciatica pain. Medical/Family history review Reviewed and updated problem list, medical/surgical/famil y/social history, medications, and allergies. Opioid use review Opioid Medications (last 90 days) No data to display Depression Screening PHQ-2 Score: 2 GUDELIA-2 Score: 1 GUDELIA-7 Score: 2 Cognitive screening Mini Cog Score: 5 Cognitive screening reviewed and No further action needed (score 3-5). Functional Observation Was the patient's Timed Up AND Go test unsteady or >= 12 seconds? No Advance Care Planning Patient did not wish or was not able to name a surrogate decision maker or provide an advance care plan Measurements BP 100/70 Pulse 87 Resp 16 Ht 155.3 cm (5' 1.14) Wt 78.6 kg (173 lb 4.5 oz) SpO2 98% BMI 32.59 kg/m? Vision Screening: Follows with optometry/ophthalmolog y Assessment/Plan Medicare annual wellness visit, subsequent (Z00.00) - Counseled on healthy diet and regular exercise - Fall avoidance information provided - Personalized prevention plan provided - Discussed need for and benefit of weight loss. BMI 32.59 kg/(m2) - Smoking cessation encouraged; discussed risks to health and quitting strategies. Patient is not ready to quit This is a 78 year old female who presents today with: Patient presents with: Medicare Wellness Exam HISTORY OF PRESENT ILLNESS: Sheree Chavez is a 78 year old female. Patient presents with: Medicare Wellness Exam Here in the office for extensive exam. Sciatica pain, right side. Has seen pain management in the past, Dr. Toribio. Has had injections in the past. Has been trying to stretch. Taking Gabapentin 100 mg at bedtime. DM: Reports overall feeling well. Medication side effects: No. Home sugar checks: Has not been checking glucose at home Hypoglycemic spells: No. Watching diet: Yes. Needs to improve diet. Unexpected weight loss: No. Polyuria, polydipsia: No. Vision Changes: No. Foot lesions or numbness or pain: No.' Due for labs at this time. Last A1c in August 2022 was 8.0, today 11.4. Taking glimepiride 4 mg daily, stopped Trulicity 0.75 mg weekly due to cost. Had Eye exam. HTN: Denies checking BP at home or having chest pain or sob.Taking Lisinopril 10 mg once daily. Denies chest pain, palpitations, dizziness, or edema. Anxiety: Taking Xanax 0.5 mg 1 tab po 1-2 tabs daily. Stopped taking Prozac 10 mg once daily. Did not feel like Prozac was working. Thyroid: Taking Levothyroxine 50 mcg once daily. Denies any missed dosages. Lipids: Denies any issues with current regimen of Lipitor 10 mg once daily. PAST MEDICAL HISTORY: PAST MEDICAL HISTORY Diagnosis Date Absence of menstruation Anxiety state, unspecified Benign neoplasm of colon Diverticulosis of colon (without mention of hemorrhage) Esophageal reflux Essential hypertension, benign Internal hemorrhoids without mention of complication Mental disorder Obesity, unspecified Other and unspecified hyperlipidemia Type II or unspecified type diabetes mellitus without mention of complication, not stated as uncontrolled PAST SURGICAL HISTORY Procedure Laterality Date BIOPSY BREAST OPEN INCISIONAL Bx of breast, incisional COLONOSCOPY FLX DX W/COLLJ SPEC WHEN PFRMD 02/21/15 Colonoscopy COLSC FLX W/RMVL OF TUMOR POLYP LESION SNARE TQ 01/21/08 DESTRUCTION BENIGN LESIONS UP TO 14 11/13/07 Partially avulsed SK left upper arm PAST SURGICAL HISTORY OF RIGHT TRIGGER THUMB PAST SURGICAL HISTORY OF 06/20 cataract revision; bilateral eyes PAST SURGICAL HISTORY OF Bilateral 2015 Cataract surgery ALLERGIES Palm Oil, Accupril [Quinapril Hcl], Asa [Salicylates], Penicillins, Vicodin [Hydr (more content not included)... Normal [facility] CBC W Auto Differential pane l (Bld)on 06-16-2024 Basophils (Bld) [#/Vol] 0.14 10*3/uL High <0.11 [facility] Comment on above: Order Comment: Speci men Type: BLOOD SPECIMENOrdering Facility: [facility] Address: [address] [place] [address] Performed By: #### 5 7021-8 ####[facility] LABIA [id number] [place] [address] [place] Basophils/100 WBC (Bld) 1.6 % Normal [facility] Comment on above: Order Comment: Speci men Type: BLOOD SPECIMENOrdering Facility: [facility] Address: [address] [place] [address] Performed By: #### 5 7021-8 ####[facility] LABIA [id number] [place] [address] [place] Differential cell count method Nom (Bld) Auto Normal [facility] Comment on above: Order Comment: Speci men Type: BLOOD SPECIMENOrdering Facility: [facility] Address: [address] [place] [address] Performed By: #### 5 7021-8 ####[facility] LABIA [id number] [place] [address] [place] Eosinophils (Bld) [#/Vol] 0.43 10*3/uL Normal <0.46 [facility] Comment on above: Order Comment: Speci men Type: BLOOD SPECIMENOrdering Facility: [facility] Address: [address] [place] [address] Performed By: #### 5 7021-8 ####[facility] LABCLIA [id number] [place] [address] [place] Eosinophils/100 WBC (Bld) 4.8 % Normal [facility] Comment on above: Order Comment: Speci men Type: BLOOD SPECIMENOrdering Facility: [facility] Address: [address] [place] [address] Performed By: #### 5 7021-8 ####[facility] LABCLIA [id number] [place] [address] [place] Erythrocyte distribution width (RBC) [Ratio] 11.7 % Normal 11.5-15.0 [facility] Comment on above: Order Comment: Speci men Type: BLOOD SPECIMENOrdering Facility: [facility] Address: [address] [place] [address] Performed By: #### 5 7021-8 ####[facility] LABIA [id number] [place] [address] [place] Hematocrit (Bld) [Volume fraction] 43.2 % Normal 36.0-46.0 [facility] Comment on above: Order Comment: Speci men Type: BLOOD SPECIMENOrdering Facility: [facility] Address: [address] [place] [address] Performed By: #### 5 7021-8 ####[facility] LABCLIA [id number] [place] [address] [place] Hemoglobin (Bld) [Mass/Vol] 13.8 g/dL Normal 11.5-15.5 [facility] Comment on above: Order Comment: Speci men Type: BLOOD SPECIMENOrdering Facility: [facility] Address: [address] [place] [address] Performed By: #### 5 7021-8 ####[facility] LABCLIA [id number] [place] [address] [place] Immature granulocytes (Bld) [#/Vol] 0.03 10*3/uL Normal <0.10 [facility] Comment on above: Order Comment: Speci men Type: BLOOD SPECIMENOrdering Facility: [facility] Address: [address] [place] [address] Performed By: #### 5 7021-8 ####[facility] LABCLIA [id number] [place] [address] [place] Immature granulocytes/100 WBC (Bld) 0.3 % Normal [facility] Comment on above: Order Comment: Speci men Type: BLOOD SPECIMENOrdering Facility: [facility] Address: [address] [place] [address] Performed By: #### 5 7021-8 ####[facility] LABCLIA [id number] [place] [address] [place] Lymphocytes (Bld) [#/Vol] 3.83 10*3/uL Normal 1.00-4.00 [facility] Comment on above: Order Comment: Speci men Type: BLOOD SPECIMENOrdering Facility: [facility] Address: [address] [place] [address] Performed By: #### 5 7021-8 ####[facility] LABCLIA [id number] [place] [address] [place] Lymphocytes/100 WBC (Bld) 43.0 % Normal [facility] Comment on above: Order Comment: Speci men Type: BLOOD SPECIMENOrdering Facility: [facility] Address: [address] [place] [address] Performed By: #### 5 7021-8 ####[facility] LABCLIA [id number] [place] [address] [place] MCH (RBC) [Entitic mass] 30.8 pg Normal 26.0-34.0 [facility] Comment on above: Order Comment: Speci men Type: BLOOD SPECIMENOrdering Facility: [facility] Address: [address] [place] [address] Performed By: #### 5 7021-8 ####[facility] LABCLIA [id number] [place] [address] [place] MCHC (RBC) [Mass/Vol] 31.9 g/dL Normal 30.5-36.0 [facility] Comment on above: Order Comment: Speci men Type: BLOOD SPECIMENOrdering Facility: [facility] Address: [address] [place] [address] Performed By: #### 5 7021-8 ####[facility] LABCLIA [id number] [place] [address] [place] MCV (RBC) [Entitic vol] 96.4 fL Normal 80.0-100.0 [facility] Comment on above: Order Comment: Speci men Type: BLOOD SPECIMENOrdering Facility: [facility] Address: [address] [place] [address] Performed By: #### 5 7021-8 ####[facility] LABIA [id number] [place] [address] [place] Monocytes (Bld) [#/Vol] 0.73 10*3/uL Normal <0.87 [facility] Comment on above: Order Comment: Speci men Type: BLOOD SPECIMENOrdering Facility: [facility] Address: [address] [place] [address] Performed By: #### 5 7021-8 ####[facility] LABCLIA [id number] [place] [address] [place] Monocytes/100 WBC (Bld) 8.2 % Normal [facility] Comment on above: Order Comment: Speci men Type: BLOOD SPECIMENOrdering Facility: [facility] Address: [address] [place] [address] Performed By: #### 5 7021-8 ####[facility] LABIA [id number] [place] [address] [place] Neutrophils (Bld) [#/Vol] 3.75 10*3/uL Normal 1.45-7.50 [facility] Comment on above: Order Comment: Speci men Type: BLOOD SPECIMENOrdering Facility: [facility] Address: [address] [place] [address] Performed By: #### 5 7021-8 ####[facility] LABCLIA [id number] [place] [address] [place] Neutrophils/100 WBC (Bld) 42.1 % Normal [facility] Comment on above: Order Comment: Speci men Type: BLOOD SPECIMENOrdering Facility: [facility] Address: [address] [place] [address] Performed By: #### 5 7021-8 ####[facility] LABCLIA [id number] [place] [address] [place] Nucleated RBC (Bld) [#/Vol] 10*3/uL Normal <0.01 [facility] Comment on above: Order Comment: Speci men Type: BLOOD SPECIMENOrdering Facility: [facility] Address: [address] [place] [address] Performed By: #### 5 7021-8 ####[facility] LABCLIA [id number] [place] [address] [place] Nucleated RBC/100 WBC (Bld) [Ratio] 0.0 /100 WBC Normal [facility] Comment on above: Order Comment: Speci men Type: BLOOD SPECIMENOrdering Facility: [facility] Address: [address] [place] [address] Performed By: #### 5 7021-8 ####[facility] LABCLIA [id number] [place] [address] [place] Platelet mean volume (Bld) [Entitic vol] 9.4 fL Normal 9.0-12.7 [facility] Comment on above: Order Comment: Speci men Type: BLOOD SPECIMENOrdering Facility: [facility] Address: [address] [place] [address] Performed By: #### 5 7021-8 ####[facility] LABCLIA [id number] [address] [address] [place] Platelets (Bld) [#/Vol] 284 10*3/uL Normal 150-400 [facility] Comment on above: Order Comment: Speci men Type: BLOOD SPECIMENOrdering Facility: [facility] Address: [address] [place] [address] Performed By: #### 5 7021-8 ####[facility] LABCLIA [id number] [place] [address] [place] RBC (Bld) [#/Vol] 4.48 10*6/uL Normal 3.90-5.20 [facility] Comment on above: Order Comment: Speci men Type: BLOOD SPECIMENOrdering Facility: [facility] Address: [address] [place] [address] Performed By: #### 5 7021-8 ####[facility] LABIA [id number] [place] [address] [place] WBC (Bld) [#/Vol] 8.91 10*3/uL Normal 3.70-11.00 [facility] Comment on above: Order Comment: Speci men Type: BLOOD SPECIMENOrdering Facility: [facility] Address: [address] [place] [address] Performed By: #### 5 7021-8 ####[facility] LABIA [id number] [place] [id number] [place] Comprehensive metabolic 2000 panelon 06-16-2024 Albumin [Mass/Vol] 4.2 g/dL Normal 3.9-4.9 [facility] Comment on above: Order Comment: Speci men Type: BLOOD SPECIMENOrdering Facility: [facility] Address: [address] [place] [address] Performed By: #### 2 4331-1, 11269-1, TSHRF ####[facility] LABCLIA [id number] [place] [id number] [place] ALP [Catalytic activity/Vol] 30 U/L Low 34-123 [facility] Comment on above: Order Comment: Speci men Type: BLOOD SPECIMENOrdering Facility: [facility] Address: [address] [place] [address] Performed By: #### 2 4331-1, 44901-7, TSHRF ####[facility] LABCLIA [id number] [place] [address] [place] ALT [Catalytic activity/Vol] 17 U/L Normal 7-38 [facility] Comment on above: Order Comment: Speci men Type: BLOOD SPECIMENOrdering Facility: [facility] Address: [address] [place] [address] Performed By: #### 2 4331-1, , TSHRF ####[facility] LABIA [id number] [place] [address] [place] Anion gap [Moles/Vol] 12 mmol/L Normal 8-15 [facility] Comment on above: Order Comment: Speci men Type: BLOOD SPECIMENOrdering Facility: [facility] Address: [address] [place] [address] Performed By: #### 2 4331-1, , TSHRF ####[facility] LABIA [id number] [place] [address] [place] AST [Catalytic activity/Vol] 17 U/L Normal 13-35 [facility] Comment on above: Order Comment: Speci men Type: BLOOD SPECIMENOrdering Facility: [facility] Address: [address] [place] [address] Performed By: #### 2 4331-1, 61066-8, TSHRF ####[facility] LABIA [id number] [place] [address] [place] Bilirubin [Mass/Vol] 0.3 mg/dL Normal 0.2-1.3 [facility] Comment on above: Order Comment: Speci men Type: BLOOD SPECIMENOrdering Facility: [facility] Address: [address] [place] [address] Performed By: #### 2 4331-1, , TSHRF ####[facility] LABCLIA [id number] [place] [address] [place] Calcium [Mass/Vol] 10.0 mg/dL Normal 8.5-10.2 [facility] Comment on above: Order Comment: Speci men Type: BLOOD SPECIMENOrdering Facility: [facility] Address: [address] [place] [address] Performed By: #### 2 4331-1, , TSHRF ####[facility] LABCLIA [id number] [place] [address] [place] Chloride [Moles/Vol] 99 mmol/L Normal 98-107 [facility] Comment on above: Order Comment: Speci men Type: BLOOD SPECIMENOrdering Facility: [facility] Address: [address] [place] [address] Performed By: #### 2 4331-1, , TSHRF ####[facility] LABCLIA [id number] [place] [address] [place] CO2 [Moles/Vol] 26 mmol/L Normal 22-30 [facility] Comment on above: Order Comment: Speci men Type: BLOOD SPECIMENOrdering Facility: [facility] Address: [address] [place] [address] Performed By: #### 2 4331-1, , TSHRF ####[facility] LABCLIA [id number] [place] [id number] [place] Creatinine [Mass/Vol] 1.02 mg/dL High 0.58-0.96 [facility] Comment on above: Order Comment: Speci men Type: BLOOD SPECIMENOrdering Facility: [facility] Address: [address] [place] [address] Performed By: #### 2 4331-1, 82555-4, [facility] ####[facility] LABIA [id number] [place] [address] [place] Creatinine and Glomerular filtration rate.predicted panel (S/P/Bld) 56 mL/min/1.73m??? Low >=60 [facility] Comment on above: Order Comment: José Miguel stanley Type: BLOOD SPECIMENOrdering Facility: [facility] Address: [address] [place] [address] Result Comment: Martha mated Glomerular Filtration Rate (eGFR) is calculated using the 2020 CKD-EPI creatinine equation. This equation utilizes serum creatinine, sex, and age as parameters. The creatinine assay has traceable calibration to isotope dilution-mass spectrometry. Refer to KDIGO guidelines for clinical interpretation. In patients with unstable renal function, e.g. those with acute kidney injury, the eGFR may not accurately reflect actual GFR. Performed By: #### 2 4331-1, 60481-0, [facility] ####[facility] LABIA [id number] [place] [id number] [place] Glucose [Mass/Vol] 253 mg/dL High 74-99 [facility] Comment on above: Order Comment: José Miguel stanley Type: BLOOD SPECIMENOrdering Facility: [facility] Address: [address] [place] [address] Result Comment: The [place] Diabetes Association (ADA) provides guidance for cutoff values for fasting glucose and random glucose. The ADA defines fasting as no caloric intake for at least 8 hours. Fasting plasma glucose results between 100 to 125 mg/dL indicate increased risk for diabetes (prediabetes). Fasting plasma glucose results greater than or equal to 126 mg/dL meet the criteria for diagnosis of diabetes. In the absence of unequivocal hyperglycemia, results should be confirmed by repeat testing. In a patient with classic symptoms of hyperglycemia or hyperglycemic crisis, random plasma glucose results greater than or equal to 200 mg/dL meet the criteria for diagnosis of diabetes. Reference: Standards of Medical Care in Diabetes 2016, [place] Diabetes Association. Diabetes Care. 2016.39(Suppl 1). Performed By: #### 2 4331-1, 24541-9, TSHRF ####[facility] LABCLIA [id number] [place] [address] [place] Potassium [Moles/Vol] 4.6 mmol/L Normal 3.7-5.1 [facility] Comment on above: Order Comment: Speci men Type: BLOOD SPECIMENOrdering Facility: [facility] Address: [address] [place] [address] Performed By: #### 2 4331-1, , TSHRF ####[facility] LABIA [id number] [place] [address] [place] Protein [Mass/Vol] 7.3 g/dL Normal 6.3-8.0 [facility] Comment on above: Order Comment: Speci men Type: BLOOD SPECIMENOrdering Facility: [facility] Address: [address] [place] [address] Performed By: #### 2 4331-1, , TSHRF ####[facility] LABIA [id number] [place] [address] [place] Sodium [Moles/Vol] 137 mmol/L Normal 136-144 [facility] Comment on above: Order Comment: Speci men Type: BLOOD SPECIMENOrdering Facility: [facility] Address: [address] [place] [address] Performed By: #### 2 4331-1, , TSHRF ####[facility] LABIA [id number] [place] [id number] [place] Urea nitrogen [Mass/Vol] 19 mg/dL Normal 7-21 [facility] Comment on above: Order Comment: Speci men Type: BLOOD SPECIMENOrdering Facility: [facility] Address: [address] [place] [id number] Performed By: #### 2 4331-1, 54983-6, TSHRF ####[facility] LABCLIA [id number] [address] [place] HbA1c (Bld)on 06-16-2024 Average glucose Estimated from glycated hemoglobin (Bld) [Mass/Vol] 280 mg/dL Normal [facility] Comment on above: Order Comment: José Miguel stanley Type: BLOOD SPECIMENOrdering Facility: [facility] Address: [address] [place] [address] Result Comment: eAG: (Estimated average glucose) is a calculated value from HgbA1c and is mechanical service representative of the average blood glucose level in the last 2-3 month period. Performed By: #### 5 5454-3 ####[facility] LABIA [id number] [address] STATES OF [facility] HbA1c (Bld) [Mass fraction] 11.4 % High 4.3-5.6 [facility] Comment on above: Order Comment: José Miguel stanley Type: BLOOD SPECIMENOrdering Facility: [facility] Address: [address] [place] [address] Result Comment: [place] Diabetes Association guidelines indicate that patients with HgbA1c in the range 5.7-6.4% are at increased risk for development of diabetes, and intervention by lifestyle modification may be beneficial. HgbA1c greater or equal to 6.5% is considered diagnostic of diabetes. Performed By: #### 5 5454-3 ####[facility] LABIA [id number] [place] [address] [place] Lipid 1996 panelon 4 Cholesterol [Mass/Vol] 238 mg/dL High <200 [facility] Comment on above: Order Comment: José Miguel stanley Type: BLOOD SPECIMENOrdering Facility: [facility] Address: [address] [place] [address] Result Comment: <200 mg/dL, Desirable 200-239 mg/dL, Borderline high >239 mg/dL, High Performed By: #### 2 4331-1, 83963-6, TSHRF ####[facility] LABCLIA [id number] [address] [place] Cholesterol in HDL [Mass/Vol] 39 mg/dL Low >39 [facility] Comment on above: Order Comment: Josii men Type: BLOOD SPECIMENOrdering Facility: [facility] Address: [address] [place] [address] Result Comment: 40-5 9 mg/dL, Acceptable >59 mg/dL, High: Negative risk factor for coronary heart disease <40 mg/dL, Low: Positive risk factor for coronary heart disease Performed By: #### 2 4331-1, 75770-1, TSHRF ####[facility] LABCLIA [id number] [address] STATES OF [facility] Cholesterol in LDL [Mass/Vol] 134 mg/dL High <100 [facility] Comment on above: Order Comment: José Miguel [facility] Type: BLOOD SPECIMENOrdering Facility: [facility] Address: [address] [place] [address] Result Comment: <100 mg/dL, Optimal 100-129 mg/dL, Near optimal/above optimal 130-159 mg/dL, Borderline high 160-189 mg/dL, High >189 mg/dL, Very high Secondary prevention optimal LDL Cholesterol levels are recommended to be < 70 mg/dL Performed By: #### 2 4331-1, 38268-4, TSHRF ####[facility] LABCLIA [id number] [address] OF [facility] Cholesterol in LDL/Cholesterol in HDL [Mass ratio] 3.44 {ratio} High <2.54 [facility] Comment on above: Order Comment: [facility] Type: BLOOD SPECIMENOrdering Facility: [facility] Address: [address] [place] [address] Result Comment: Kosta amezquita: 1. National Cholesterol Education Program ATP III Guideline At-A-Glance Quick Desk Reference: National Heart, Lung, and Blood [place]. National Institutes of Health. 2001: NIH Publication No. 01-3305. 2. An International Atherosclerosis Society position paper: global recommendations for the management of dyslipidemia: executive summary, Atherosclerosis. 2014: 232(2):410-413. Performed By: #### 2 4331-1, 79060-7, TSHRF ####[facility] LABCLIA [id number] [place] [address] [place] Cholesterol in VLDL [Mass/Vol] 65 mg/dL High <30 [facility] Comment on above: Order Comment: Speci men Type: BLOOD SPECIMENOrdering Facility: [facility] Address: [address] [place] [address] Performed By: #### 2 4331-1, , TSHRF ####[facility] LABCLIA [id number] [place] [address] [place] Cholesterol non HDL [Mass/Vol] 199 mg/dL High <130 [facility] Comment on above: Order Comment: Josii men Type: BLOOD SPECIMENOrdering Facility: [facility] Address: [address] [place] [address] Result Comment: <130 mg/dL, Optimal 130-159 mg/dL, Near optimal/above optimal 160-189 mg/dL, Borderline high 190-219 mg/dL, High >219 mg/dL, Very high Secondary prevention optimal non HDL Cholesterol levels are recommended to be <100 mg/dL Performed By: #### 2 433-1, , TSHRF ####[facility] LABCLIA [id number] [place] [address] [place] Cholesterol.total/Ch olesterol in HDL [Mass ratio] 6.10 {ratio} High <5.10 [facility] Comment on above: Order Comment: Speci men Type: BLOOD SPECIMENOrdering Facility: [facility] Address: [address] [place] [address] Performed By: #### 2 4331-1, , TSHRF ####[facility] LABCLIA [id number] [place] [id number] [place] FASTING TIME 12 hrs Normal [facility] Comment on above: Order Comment: Speci men Type: BLOOD SPECIMENOrdering Facility: [facility] Address: [address] [place] [address] Performed By: #### 2 4331-1, 66205-5, TSHRF ####[facility] LABCLIA [id number] [place] [address] [place] Triglyceride [Mass/Vol] 323 mg/dL High <150 [facility] Comment on above: Order Comment: Speci men Type: BLOOD SPECIMENOrdering Facility: [facility] Address: [address] [place] [address] Result Comment: <150 mg/dL, Normal 150-199 mg/dL, Borderline high 200-499 mg/dL, High >499 mg/dL, Very high Performed By: #### 2 4331-1, 05069-3, TSHRF ####[facility] LABCLIA [id number] [place] [address] [place] TSH W/REFLEX FT4on 4 TSH Qn 4.010 m[IU]/L Normal 0.270-4.200 [facility] Comment on above: Order Comment: Speci men Type: BLOOD SPECIMENOrdering Facility: [facility] Address: [address] [place] [address] Performed By: #### 2 4331-1, 96398-6, TSHRF ####[facility] LABCLIA [id number] [place] [address] [place] XR RIBS/CHEST 3V AP RIB/OBLS /CXR LEFTon 04-22-2023 [facility] XR Ribs - left Views and Annmarie st PAon 04-22-2023 IMPRESSION: Acute nondisplaced fracture of the left anterolateral seventh rib. Is Project Manager: YUMI Transcribe Date/Time: Apr 22 2023 12:33P Dictated by : KAMILLA WHEELER MD This examination was interpreted and the report reviewed and electronically signed by: KAMILLA WHEELER MD on Apr 22 2023 12:40PM [facility] DIVISION OF RADIOLOGY * * *Final Report* * * DATE OF EXAM: Apr 22 2023 12:27PM WOX 5243 - XR RIB/CHST 3V AP RIB/OBL/CHST L / PROCEDURE REASON: Rib injury * * * * Physician Interpretation * * * * TITLE: XR RIB/CHST 3V AP RIB/OBL/CHST L CLINICAL INDICATION: Rib injury TECHNIQUE: 3 view left centimeter radiographic rib series with inclusion of a single frontal view of the chest for purposes of comparison/symmetry COMPARISON: Chest x-ray dated November 23, 2021 FINDINGS: Cardiomediastinal silhouette is normal in size. No focal consolidation. No discernible pleural effusion or pneumothorax. Acute nondisplaced fracture of the left anterolateral seventh rib. DIVISION OF RADIOLOGY Provider, [facility] - 04/22/2023 * * *Final Report* * * DATE OF EXAM: Apr 22 2023 12:27PM WOX 5243 - XR RIB/CHST 3V AP RIB/OBL/CHST L / PROCEDURE REASON: Rib injury * * * * Physician Interpretation * * * * TITLE: XR RIB/CHST 3V AP RIB/OBL/CHST L CLINICAL INDICATION: Rib injury TECHNIQUE: 3 view left centimeter radiographic rib series with inclusion of a single frontal view of the chest for purposes of comparison/symmetry COMPARISON: Chest x-ray dated November 23, 2021 FINDINGS: Cardiomediastinal silhouette is normal in size. No focal consolidation. No discernible pleural effusion or pneumothorax. Acute nondisplaced fracture of the left anterolateral seventh rib. IMPRESSION IMPRESSION: Acute nondisplaced fracture of the left anterolateral seventh rib. Is Project Manager: PSCB Transcribe Date/Time: Apr 22 2023 12:33P Dictated by : KAMILLA WHEELER MD This examination was interpreted and the report reviewed and electronically signed by: KAMILLA WHEELER MD on Apr 22 2023 12:40PM EST [facility] Radiology Study observation (narrative) [facility] XR Ribs - left Views and Annmarie st PAOrdered By: [facility] Provider on 04-22-2023 [facility] Emergency Department Summary on 02-23-2023 Emergency Department Summary [facility] Medical Records Department [address] [place] [address] Emergency Department Summary 02/22/23 MR#: [id number] Acct: [id number] Name: Sarah CHAVEZ Rep #: [id number] : 1945 77 From: Thiago Jarvis DO PCP: Dr. Deirdre Quiñones MD Status:DEP ER Location: ED HPI History of Present Illness HPI Narrative: Patient presents with right hip pain that began after a fall 1 year ago. Patient states it is gotten worse over the last week. Patient states her pain is constant. Patient describes it as sharp and stabbing. Patient states it radiates into her right foot. Patient states she has seen Dr. Chung for this. Patient states she has had epidural injections for this. Patient states her pain is worse with weightbearing. Patient states that sometimes she does have some weakness in her right leg due to the pain. Patient denies any recent trauma or injury. Chief Complaint: Lower Extremity Injury Informant: patient Occured/Mechanism Mechanism/Context: Yes fall Comment: Patient fell 1 year ago Onset/Context/Timing Onset: Weeks (Pain has been worse over the past week) Context: Gradual Onset Timing: Continuous Quality of Pain: Sharp and Stabbing Location: Right hip Worsened by: Weightbearing Relieved by: Rest Associated Symptoms Associated Symptoms: Positive for Weakness; Negative for Parasthesia or Loss of Funtion [facility] Medical History Diabetes History of trigger finger Hypertension Hypothyroidism Home Medications alprazolam 0.5 mg tablet 0.5 mg PO QHS 05/11/21 [History Last Taken Unknown] atorvastatin 10 mg tablet 10 mg PO QHS 05/11/21 [History Last Taken Unknown] glimepiride 2 mg tablet 2 mg PO DAILY 05/11/21 [History Last Taken Unknown] levothyroxine 50 mcg tablet 50 mcg PO DAILY 05/11/21 [History Last Taken Unknown] lisinopril 20 mg tablet 20 mg PO DAILY 05/11/21 [History Last Taken Unknown] dulaglutide 0.75 mg/0.5 mL subcutaneous pen injector (Trulicity) ml subcut 07/23/22 [History Last Taken Unknown] gabapentin 100 mg capsule ea PO 07/23/22 [History Last Taken Unknown] hydrocodone-acetaminop hen 5-325mg 5mg-325mg 1 tab PO Q6H PRN PRN Pain 3 days #10 TABLETS 02/22/23 [Rx Last Taken Unknown] Allergy/AdvReac Type Severity Reaction Status Date / Time Penicillins Allergy Hives Verified 02/22/23 21:07 aspirin AdvReac Other Verified 02/22/23 21:07 codeine AdvReac Other Verified 02/22/23 21:07 no surgical history Social History Smoking Status: Unknown if ever smoked alcohol intake: never ROS ROS ED Constitutional Constitutional ED: Denies chills or fever(s) Eyes Eyes: Denies blurry vision or change in vision ENT ENT ED: Denies rhinorrhea or sore throat Cardiovascular Cardiovascular: Denies chest pain or palpitations Respiratory/Chest Respiratory/Chest: Denies cough or dyspnea Gastrointestinal Gastrointestinal: Denies nausea or vomiting Genitourinary Genitourinary ED: Denies dysuria or hematuria Musculoskeletal Musculoskeletal: Reports back pain; Denies neck pain Integumentary Denies abscess or rash Neurologic Neurologic: Denies headache(s) or weakness Allergic/Immunologic Allergic/Immunologic ED: Denies mouth swelling or urticaria EXAM Physical Exam Const Vital Signs: 02/22/23 21:06 02/23/23 00:03 Temperature 97.8 F Temperature Source Temporal Pulse Rate 71 71 Respiratory Rate 18 18 Blood Pressure 172/91 H 172/91 H Blood Pressure Mean 118 Pulse Ox 99 99 Oxygen Delivery Method Room Air Positive well nourished, well developed and obese General Appearance ED: well developed and NAD Nutritional Appearance: obese HEENT Reports moist mucous membranes Neck full ROM and supple Resp normal respiratory effort and clear to auscultation bilaterally Cardio regular rate and regular rhythm GI non-tender Palpation: soft Extremity normal to inspection Extremity Narrative: There is tenderness over the lateral aspect of the right hip. There is also tenderness of the posterior aspect of the right hip. There is no obvious deformity noted. There is no pain with internal and external rotation. There is some mild pain with flexion of the right hip. Strength is 5/5 bilaterally in the lower extremities. There are no sensory deficits noted. Pedal pulses are equal bilaterally. Neuro oriented x3, CN's II-XII intact bilaterally, moves all extremities and no sensory deficits noted Sensorium / Orientation: alert Motor Exam: strength 5/5 throughout Psych mental status grossly normal MDM MDM MDM Narrative Medical decision making narrative: Differential diagnosis includes occult fracture, degenerative arthritis, sciatica, and sacroiliitis. X-rays of the (more content not included)... Normal [facility] HIP, UNI W/ Pelvis 2-3 Views on 02-23-2023 HIP, UNI W/ Pelvis 2-3 Views [facility] Imaging Services [address] [place] [address] HIP, UNI W/ Pelvis 2-3 Views MR#: [id number] Acct: [id number] Name: Sarah CHAVEZ Rep #: [id number] : 1945 F 77 From: Osbaldo Moreno DO PCP: Dr. Deirdre Quiñones MD Status: [facility] ER Study: HIP, UNI W/ Pelvis 2-3 Views Date of Exam: Exam# [id number] Ordering Dr: Thiago Jarvis DO INDICATION: Injury/Pain EXAMINATION/TECHNIQUE: X-RAY - RIGHT XR Hip Unilateral with Pelvis when performed; 2-3 Views 3 VIEWS COMPARISON: May 11, 2021 right hip x-rays. FINDINGS: SOFT TISSUES: No soft tissue swelling or gas. No radiopaque foreign body. BONES/JOINTS: No acute fracture or malalignment. Advanced degenerative changes right hip and at least moderate degenerative changes left hip not appreciably changed compared to prior comparison exam. Mild subchondral sclerosis bilateral sacroiliac joints, unchanged. Mild degenerative endplate changes L4-5 and L5-S1, unchanged. No sclerotic or destructive changes observed. RAD/HIP, UNI W/ Pelvis 2-3 Views IMPRESSION: No appreciable change compared to prior comparison exam May 11, 2021 showing degenerative changes bilateral hips, lumbar spine and sacroiliac joints. There are advanced degenerative changes right hip. Electronically Signed: Osbaldo Moreno DO at 22:39 EDT , CC: Dr. Thiago Jarvis DO; Dr. Deirdre Quiñones MD Is Project Manager: Signed Normal [facility] Emergency Department Summary on 11-22-2022 Emergency Department Summary [facility] Medical Records Department [address] [place] [address] Emergency Department Summary 11/22/22 MR#: [id number] Acct: [id number] Name: Sarah CHAVEZ Rep #: [id number] : 1945 77 From: Say Martínez MD PCP: Dr. Deirdre Quiñones MD Status:DEP ER Location: ED HPI History of Present Illness Chief Complaint: Back Informant: patient Narrative Narrative: History of spinal stenosis and sciatica on the right side, has been having episodes for years, periodically. Another episode of the same symptoms for the last 3 to 4 days after she had a minor fall, but she states she did not injure her back in the fall. She may have twisted, she did not have immediate sciatica. She denies any bowel or bladder dysfunction, weakness, numbness. Pain radiates down the right leg to her foot. [facility] Medical History Diabetes History of trigger finger Hypertension Hypothyroidism Home Medications alprazolam 0.5 mg tablet 0.5 mg PO QHS 05/11/21 [History Last Taken Unknown] atorvastatin 10 mg tablet 10 mg PO QHS 05/11/21 [History Last Taken Unknown] glimepiride 2 mg tablet 2 mg PO DAILY 05/11/21 [History Last Taken Unknown] levothyroxine 50 mcg tablet 50 mcg PO DAILY 05/11/21 [History Last Taken Unknown] lisinopril 20 mg tablet 20 mg PO DAILY 05/11/21 [History Last Taken Unknown] dulaglutide 0.75 mg/0.5 mL subcutaneous pen injector (Trulicity) ml subcut 07/23/22 [History Last Taken Unknown] gabapentin 100 mg capsule ea PO 07/23/22 [History Last Taken Unknown] Allergy/AdvReac Type Severity Reaction Status Date / Time Penicillins Allergy Hives Verified 11/22/22 08:25 aspirin AdvReac Other Verified 11/22/22 08:25 codeine AdvReac Other Verified 11/22/22 08:25 Social History Smoking Status: Current every day smoker tobacco type: cigarettes alcohol intake: never ROS ROS ED Constitutional Constitutional ED: Denies chills or fever(s) Gastrointestinal Gastrointestinal: Denies abdominal pain, constipation, fecal incontinence, nausea or vomiting Genitourinary Genitourinary ED: Reports other Details: no urinary retention ; Denies abdominal discomfort or urinary incontinence Musculoskeletal Musculoskeletal: Reports as per HPI and back pain; Denies neck pain Integumentary Denies rash or wounds Neurologic Neurologic: Denies headache(s), paresthesias or weakness EXAM Physical Exam Const Vital Signs: 11/22/22 08:26 Temperature 95.3 F L Temperature Source Temporal Pulse Rate 78 Respiratory Rate 16 Blood Pressure 145/93 H Blood Pressure Mean 110 Pulse Ox 99 Oxygen Delivery Method Room Air Positive well nourished and well developed General Appearance ED: well developed and NAD HEENT Negative for trauma or tenderness Eyes PERRL and EOMs intact bilaterally Neck full ROM and supple GI normal to inspection, nondistended, normoactive bowel sounds, soft to palpation and non-tender Back/Spine normal to inspection Back/Spine Narrative: Ipsilateral right straight leg raise positive reproducing radicular symptoms while lying supine at about 30 degrees, negative cross straight leg raise. Lumbar Spine / Lower Back: ROM limited and paraspinal muscle tenderness; Negative for lumbar spinal tenderness Extremity normal to inspection, full ROM and no pedal edema Neuro oriented x3 and no sensory deficits noted Sensorium / Orientation: alert Motor Exam: strength 5/5 throughout and clonus absent Deep Tendon Reflexes: Rt Patellar (L4): 2+, Lt Patellar (L4): 2+, Rt Ankle (S1): 2+ and Lt Ankle (S1): 2+ Deep Tendon Reflexes Back: Rt Patellar (L4): 2+, Lt Patellar (L4): 2+, Rt Ankle (S1): 2+ and Lt Ankle (S1): 2+ Plantar Reflex: Downgoing: bilateral Psych mental status grossly normal and thought process normal Skin no rashes or lesions noted and no wounds MDM MDM MDM Narrative Medical decision making narrative: Patient waited a little longer than usual for me to see and evaluate her, due to a cardiopulmonary arrest that arrived before I could see and evaluate her, so I discussed this with her and was apologetic, but ordered her some parenteral analgesics and advised that we do a lumbar x-ray series while she was waiting in order to rule out any acute bony abnormality and she was amenable to all of that. She does not have any signs or symptoms of cauda equina syndrome at this time. However apparently before the patient was able to be x-rayed or receive any medications, she eloped. I was not aware of this until after she left the department. Discharge Plan Triage Chief Complaint: Back ED Provider: Say Martínez Dx/Rx/DC Orders Clinical Impression: Acute right-sided back pain with sciatica, Spi (more content not included)... Normal [facility] XR Pelvis and Hip - right AP and Lateral frogon 11-22-2022 IMPRESSION: 1. Moderate arthritic changes in the right hip similar to previous study. Is Project Manager: YUMI Transcribe Date/Time: Nov 22 2022 6:44P Dictated by : JEREMY IBARRA MD This examination was interpreted and the report reviewed and electronically signed by: JEREMY IBARRA MD on Nov 22 2022 6:46PM [facility] DIVISION OF RADIOLOGY * * *Final Report* * * DATE OF EXAM: Nov 22 2022 6:26PM WOX 5352 - XR HIP 3V PELV+ AP/LAT RT / PROCEDURE REASON: Acute hip pain, right * * * * Physician Interpretation * * * * EXAMINATION: RIGHT HIP X-RAY SERIES HISTORY: Acute hip pain, right COMPARISON: 07/05/2022 TECHNIQUE: AP pelvis, AP hip, frog-leg lateral. RESULT: Moderate osteoarthritic changes at the right hip, similar to previous study. Left hip joint appears within normal limits. Symphysis pubis and sacroiliac joints are anatomically aligned. Mild degenerative changes in the visualized lumbar spine. No evidence of acute fracture or malalignment. DIVISION OF RADIOLOGY Provider, Sidra Rain Mcfarlane - 11/22/2022 * * *Final Report* * * DATE OF EXAM: Nov 22 2022 6:26PM WOX 5352 - XR HIP 3V PELV+ AP/LAT RT / PROCEDURE REASON: Acute hip pain, right * * * * Physician Interpretation * * * * EXAMINATION: RIGHT HIP X-RAY SERIES HISTORY: Acute hip pain, right COMPARISON: 07/05/2022 TECHNIQUE: AP pelvis, AP hip, frog-leg lateral. RESULT: Moderate osteoarthritic changes at the right hip, similar to previous study. Left hip joint appears within normal limits. Symphysis pubis and sacroiliac joints are anatomically aligned. Mild degenerative changes in the visualized lumbar spine. No evidence of acute fracture or malalignment. IMPRESSION IMPRESSION: 1. Moderate arthritic changes in the right hip similar to previous study. Is Project Manager: PSCB Transcribe Date/Time: Nov 22 2022 6:44P Dictated by : JEREMY IBARRA MD This examination was interpreted and the report reviewed and electronically signed by: JEREMY IBARRA MD on Nov 22 2022 6:46PM EST [facility] [facility] Study observation (narrative) [facility] XR Pelvis and Hip - right AP and Lateral frogOrdered By: Ccf Provider on 11-22-2022 [facility] Orthopedic Visit Reporton Orthopedic Visit Report [facility] [address] [place] [address] OFFICE VISIT Date of Service: 08/15/22 MR#: [id number] Acct: [id number] Name: Sarah CHAVEZ Rep #: [id number] : 1945 Provider: Dr. Abhishek moore DO Age/Sex: 76/F [place] [facility] [place] Status: Signed Intake Vital Signs 08/13/22 10:25 Height 5 ft 3 in Intake Visit Reasons: LUMBER SPINE Chief Complaint: low back Allergies Penicillins Allergy (Verified 08/15/22 11:30) Hives aspirin Adverse Reaction (Verified 08/15/22 11:30) Other codeine Adverse Reaction (Verified 08/15/22 11:30) Other Medications alprazolam 0.5 mg tablet 0.5 mg PO QHS 05/11/21 [History Confirmed 08/15/22] atorvastatin 10 mg tablet 10 mg PO QHS 05/11/21 [History Confirmed 08/15/22] glimepiride 2 mg tablet 2 mg PO DAILY 05/11/21 [History Confirmed 08/15/22] levothyroxine 50 mcg tablet 50 mcg PO DAILY 05/11/21 [History Confirmed 08/15/22] lisinopril 20 mg tablet 20 mg PO DAILY 05/11/21 [History Confirmed 08/15/22] dulaglutide 0.75 mg/0.5 mL subcutaneous pen injector (Trulicity) ml subcut 07/23/22 [History Confirmed 08/15/22] gabapentin 100 mg capsule ea PO 07/23/22 [History Confirmed 08/15/22] PFSH Medical History Diabetes History of trigger finger Hypertension Hypothyroidism Social History Smoking Status: Current every day smoker tobacco type: cigarettes alcohol intake: never HPI LUMBER SPINE Details: Parts of this documentation were recorded by a scribe, this documentation accurately reflects the service provided and the decisions made by me, Dr. Abhishek Kumar, DO 08/15/22 1125. Sarah CHAVEZ is a 76 year old F here today for MRI review of the lumbar spine. Also wants to know the results of her lumbar x-ray that she had done. Denies any changes. Pete Chavez returns for follow-up after her MRI scan. I reviewed it and found as expected that she does indeed have spinal stenosis at L4-5. I would call it moderate plus in severity. I explained to her that is not bad enough to warrant surgical intervention. In an ideal world I would like her to have epidural steroid injections however she is a diabetic and by her own admission has had trouble keeping her hemoglobin A1c under good control. She has been on Trulicity now for about 6 months but she has not had the hemoglobin A1c done. I explained to her that if it is low enough that would still consider an epidural steroid injection to get her some relief. I think the idea of surgery however we will put on the back burner for now. She will let me know after she gets her hemoglobin A1c done. Coding Level of Care Code Off vis,est,level 3 Diagnoses Spinal stenosis at L4-L5 level M48.061 Time Spent (min) 25 Assessment and Plan Assessment and Plan (1) Spinal stenosis at L4-L5 level: Status: Acute 08/15/22 1320 Date Abhishek Kumar DO Cosign Signature: Date (if applicable) CC: Dr. Deirdre Quiñones MD Normal [facility] Spine Lumbar (Routine)on Spine Lumbar (Routine) [facility] Imaging Services [address] [place] [address] Spine Lumbar (Routine) MR#: [id number] Acct: [id number] Name: Sarah CHAVEZ Rep #: [id number] : 1945 F 76 From: Rolando Johnson PCP: Dr. Deirdre Quiñones MD Status: REG CLI Study: Spine Lumbar (Routine) Date of Exam: 08/11/22 Exam# [id number] Ordering Dr: Abhishek Kumar DO INDICATION: Back and right lower extremity pain. EXAMINATION: MRI - MR Spine Lumbar W/O Contrast TECHNIQUE: Multiplanar and multisequence MR images of the lumbar spine. IV Contrast Dosage and Agent: None. COMPARISON: 07/23/2022 radiographs. FINDINGS: No fracture or acute osseous abnormality. Alignment similar to previous with mild grade 1 degenerative anterolisthesis of L4 on L5. The conus terminates at the level of the L2 superior endplate with normal contour and signal. Normal arborization of the cauda equina. At L1-2, small diffuse disc bulge and moderate bilateral facet degeneration causes only mild narrowing of the spinal canal and foramina with no nerve root impingement. At L2-3, small diffuse disc bulge and severe bilateral facet degeneration with degenerative buckling of ligamentum flavum causes only mild narrowing of the spinal canal and foramina with no nerve root impingement. At L3-4, moderate diffuse disc bulge and severe bilateral facet degeneration with degenerative buckling of the ligamentum flavum causes only mild narrowing of the spinal canal and foramina with no evidence of nerve root impingement. At L4-5, severe bilateral facet degeneration with buckling of ligamentum flavum and grade 1, 3 mm, degenerative anterolisthesis causes high-grade narrowing of the right subarticular zone with disc and ligamentum flavum likely compressing the traversing right L5 nerve root. Disc and ligamentum flavum displace but do not definitively compress the traversing left L5 nerve root in the subarticular zone. Disc and osteophyte also abuts both exiting L4 nerve roots in the foramina. At L5-S1, small diffuse disc bulge and moderate facet degeneration causes only mild narrowing of the spinal canal. Disc and vertebral body and facet osteophytes extend into and markedly narrow the right foramen likely compressing the exiting right L5 nerve root. Mild to moderate left foraminal narrowing with disc and osteophyte abutting but not compressing the exiting left L5 nerve root. The paraspinal soft tissues are unremarkable. MRI/Spine Lumbar (Routine) IMPRESSION: Degenerative changes particularly at L4-5 and L5-S1. There is likely compression of the right L5 nerve root in the right subarticular zone at L4-5 and right foramen of L5-S1. Given the facet degeneration and anterolisthesis at L4-5, consider flexion and extension radiographs to assess for mechanical instability. Electronically Signed: Rolando Philip MD at 22:25 EST Reading Location ID and State: [address] [place] [address] Tel , Service support , CC: Dr. Abhishek Kumar DO; Dr. Deirdre Quiñones MD Is Project Manager: Signed Normal [facility] Lumbar Spine 2 or 3 Viewson 07-23-2022 Lumbar Spine 2 or 3 Views [facility] Radiology [address] [place] [address] Lumbar Spine 2 or 3 Views MR#: [id number] Acct: [id number] Name: Sarah CHAVEZ Rep #: [id number] : 1945 F 76 From: Naresh Johnson PCP: Dr. Deirdre Quiñones MD Status: DEP AMB Study: Lumbar Spine 2 or 3 Views Date of Exam: Exam# [id number] Ordering Dr: Abhishek Kumar DO STUDY: X-RAY - LUMBAR SPINE REASON FOR EXAM: Female, 76 years old. RIGHT LOWER EXTREMITY WEAKNESS AND PAIN x2 MONTHS, HX OF FALL x1 YR AGO pain TECHNIQUE: XR Spine Lumbar 2 or 3 Views COMPARISON: None FINDINGS: Normal lumbar lordosis. There is no substantial scoliosis. There is a Grade 1 anterolisthesis of L4 on L5. There is multilevel endplate spondylosis of the lumbar vertebrae. There is multi-level degenerative disc disease with multi-level disc space narrowing. There are atherosclerotic vascular calcifications. The soft tissue structures are unremarkable. RAD/Lumbar Spine 2 or 3 Views IMPRESSION: Degenerative changes of the spine, as detailed above. Electronically Signed: Naresh Hull MD at 16:22 EST Reading Location ID and State: [facility] [place] , Service support , CC: Dr. Abhishek Kumar DO; Dr. Deirdre Quiñones MD Is Project Manager: Signed Normal [facility] Orthopedic Visit Reporton Orthopedic Visit Report [facility] [address] [place] [address] OFFICE VISIT Date of Service: 07/23/22 MR#: [id number] Acct: [id number] Name: Sarah CHAVEZ Rep #: [id number] : 1945 Provider: Dr. Abhishek moore DO Age/Sex: 76/F [place] [facility] [place] Status: Signed Intake Vital Signs 05/11/21 09:37 07/17/22 16:56 07/23/22 08:53 Height 5 ft 3 in 5 ft 3 in 5 ft 3 in Weight: 184 lb BMI 32.5 Intake Visit Reasons: LUMBER SPINE Chief Complaint: low back Is patient in pain?: Yes Pain scale (1-10): 10 Allergies Penicillins Allergy (Verified 05/11/21 09:40) Hives aspirin Adverse Reaction (Verified 05/11/21 09:40) Other codeine Adverse Reaction (Verified 05/11/21 09:40) Other Medications alprazolam 0.5 mg tablet 0.5 mg PO QHS 05/11/21 [History Confirmed 07/23/22] atorvastatin 10 mg tablet 10 mg PO QHS 05/11/21 [History Confirmed 07/23/22] glimepiride 2 mg tablet 2 mg PO DAILY 05/11/21 [History Confirmed 07/23/22] levothyroxine 50 mcg tablet 50 mcg PO DAILY 05/11/21 [History Confirmed 07/23/22] lisinopril 20 mg tablet 20 mg PO DAILY 05/11/21 [History Confirmed 07/23/22] dulaglutide 0.75 mg/0.5 mL subcutaneous pen injector (Trulicity) ml subcut 07/23/22 [History Confirmed 07/23/22] gabapentin 100 mg capsule ea PO 07/23/22 [History Confirmed 07/23/22] [facility] Medical History (Updated 07/23/22 @ 09:[address] Abhishek Kumar DO) Diabetes History of trigger finger Hypertension Hypothyroidism Social History (Updated 07/23/22 @ 09:01 by Demetra Parkinson) Smoking Status: Current every day smoker tobacco type: cigarettes alcohol intake: never HPI LUMBER SPINE Details: Parts of this documentation were recorded by a scribe, this documentation accurately reflects the service provided and the decisions made by me, Dr. Abhishek Kumar DO 07/23/22 8848. Sarah CHAVEZ is a 76 year old F NEW patient here today for low back pain that she has been having for about 2 months. She states that she did have a fall about 1 year ago and she fell onto her right posterior hip and had a hematoma on the head. She states that she did see her PCP. She has tried meloxicam, muscle relaxer and Medrol dose pack without relief. She has been taking Gabapentin, Aleve and Tylenol to help with the pain. She states that she moe slow back pain that radiates down the right leg over her hip and lateral leg into her foot. She does use a walker for ambulation. She has also been seeing a chiropractor for 2 adjustments but this was not helpful and was painful. She states that the leg pain is an electrical pain and she occasionally has a stabbing pain in the right leg. Pain is worse with prolonged standing and ambulation. Denies any PT. Denies numbness, tingling or other associated symptoms. Denies any bowel or bladder issues. Mrs. Chavez is a delightful young lady 76 years old who has a chief complaint of pain on the right side of her back that radiates into her right buttocks and down her right thigh and right leg to her foot. Pain worsened a couple of months ago and it has been very bad ever since. He has to use a walker now because the more she walks the worse that the leg hurts if she sits down she does get some degree of relief. She denies any bowel or bladder dysfunction. She denies history of unexplained weight loss night fever sweats or chills. She is still smokes cigarettes. She is diabetic and is on Trulicity injections. On examination she can stand on her toes and she can stand on her heels. She has more pain with extension of her lumbar spine that she does flexion. He has barely perceptible Achilles and patellar reflexes bilaterally and equal. She has reasonable motor strength of all the major muscle groups of both lower extremities. She has no long tract signs. Clonus is absent Babinski's are downgoing. Plain x-rays of her lumbar spine was read that she has a degenerative spondylolisthesis of L4 on L5. I explained to Mrs. Chavez that I feel that she probably has spinal stenosis at that level that is at L4-5. We will order an MRI scan of the lumbar spine. I will see her after the MRI scan and make further recommendations. Coding Level of Care Code Off vis,new,level 3 Diagnoses Degenerative spondylolisthesis M43.10 Spinal stenosis at L4-L5 level M48.061 Time Spent (min) 30 Assessment and Plan Assessment and Plan (1) Degenerative spondylolisthesis: Status: Acute (2) Spinal stenosis at L4-L5 level: Status: Acute Orders: Orders Lumbar Spine 2 or 3 Views Today M54.50 - Low back pain, unspecified 07/23/22 0943 Date Abhishek Kumar DO [facility] Signature: Date (if applicable) CC: Dr. Deirdre Quiñones, (more content not included)... Normal [facility] XR HIP BILATERAL 5V PEL/AP/L AT EACH HIPon 07-05-2022 IMPRESSION: 1. 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 2. Left hip unremarkable. 2. No fracture. Is Project Manager: [email or web address] Transcribe Date/Time: Jul 05 2022 6:54P Dictated by : MILTON MILLER MD This examination was interpreted and the report reviewed and electronically signed by: MILTON MILLER MD on Jul 05 2022 6:57PM [facility] DIVISION OF RADIOLOGY * * *Final Report* * * DATE OF EXAM: Jul 05 2022 9:48AM WOX [id number] - XR HIP LENORA 5V PEL+ AP/LAT EA HIP / PROCEDURE REASON: Hip pain * * * * Physician Interpretation * * * * HISTORY: fell in May and has had right posterior hip pain for a month going down the right leg.. Hip pain . TECHNIQUE: XR HIP LENORA 5V PEL+ AP/LAT EA HIP Laterality: BILATERAL Number of different views (projections): 5 COMPARISON: May 2021 pelvis and right hip RESULT: There is no fracture identified. There is osteophyte formation about the right hip without joint space narrowing. The left hip is grossly unremarkable. The bony pelvis intact. Some thin calcification in the bilateral hips and pubic symphysis consistent with chondrocalcinosis. DIVISION OF RADIOLOGY Provider, [facility] * * *Final Report* * * DATE OF EXAM: Jul 05 2022 9:48AM WOX [id number] - XR HIP LENORA 5V PEL+ AP/LAT EA HIP / PROCEDURE REASON: Hip pain * * * * Physician Interpretation * * * * HISTORY: fell in May and has had right posterior hip pain for a month going down the right leg.. Hip pain . TECHNIQUE: XR HIP LENORA 5V PEL+ AP/LAT EA HIP Laterality: BILATERAL Number of different views (projections): 5 COMPARISON: May 2021 pelvis and right hip RESULT: There is no fracture identified. There is osteophyte formation about the right hip without joint space narrowing. The left hip is grossly unremarkable. The bony pelvis intact. Some thin calcification in the bilateral hips and pubic symphysis consistent with chondrocalcinosis. IMPRESSION IMPRESSION: 1. 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 2. Left hip unremarkable. 2. No fracture. Is Project Manager: PSCB Transcribe Date/Time: Jul 05 2022 6:54P Dictated by : MILTON MILLER MD This examination was interpreted and the report reviewed and electronically signed by: MILTON MILLER MD on Jul 05 2022 6:57PM EST [facility] Radiology Study observation (narrative) [facility] XR HIP BILATERAL 5V PEL/AP/L AT EACH HIPOrdered By: Ccf Provider on 07-05-2022 [facility] XR Chest PA and Lateralon IMPRESSION: No acute radiographic abnormality. Is Project Manager: [email or web address] Transcribe Date/Time: Nov 23 2021 12:24P Dictated by : ANDREINA REYES MD This examination was interpreted and the report reviewed and electronically signed by: ANDREINA REYES MD on Nov 23 2021 12:25PM EST [email or web address] _DIVISION OF RADIOLOGY * * *Final Report* * * DATE OF EXAM: Nov 23 2021 12:17PM WOX [id number] - XR CHEST 2V FRONTAL/LAT / PROCEDURE REASON: Viral URI with cough * * * * Physician Interpretation * * * * EXAMINATION: CHEST RADIOGRAPH (2 VIEW FRONTAL & LATERAL) CLINICAL HISTORY: Viral URI with cough MQ: XC2_6 EXAM DATE/TIME: 11/23/2021 12:17 PM COMPARISON: No relevant prior studies available. RESULT: Lines, tubes, and devices: None. Lungs and pleura: No consolidation. No lung mass. No pleural effusion. No pneumothorax. Cardiomediastinal silhouette: Normal cardiomediastinal silhouette. Bones and soft tissues: Moderate degenerative change and osteophytosis throughout the dorsal spine [email or web address]_NOT_USE _DIVISION OF RADIOLOGY Provider, Ccjuan pablo Mcfarlane - 11/23/2021 * * *Final Report* * * DATE OF EXAM: Nov 23 2021 12:17PM WOX [id number] - XR CHEST 2V FRONTAL/LAT / PROCEDURE REASON: Viral URI with cough * * * * Physician Interpretation * * * * EXAMINATION: CHEST RADIOGRAPH (2 VIEW FRONTAL & LATERAL) CLINICAL HISTORY: Viral URI with cough MQ: XC2_6 EXAM DATE/TIME: 11/23/2021 12:17 PM COMPARISON: No relevant prior studies available. RESULT: Lines, tubes, and devices: None. Lungs and pleura: No consolidation. No lung mass. No pleural effusion. No pneumothorax. Cardiomediastinal silhouette: Normal cardiomediastinal silhouette. Bones and soft tissues: Moderate degenerative change and osteophytosis throughout the dorsal spine IMPRESSION IMPRESSION: No acute radiographic abnormality. Is Project Manager: PSCKate Transcribe Date/Time: Nov 23 2021 12:24P Dictated by : ANDREINA REYES MD This examination was interpreted and the report reviewed and electronically signed by: ANDREINA REYES MD on Nov 23 2021 12:25PM EST [facility] Radiology Study observation (narrative) [facility] XR Chest PA and LateralOrder ed By: Ccf Provider on 11-23-2021 [facility] ALBUMIN/CREAT RATIO RND URon 09-27-2021 Albumin DL <= 20 mg/L (U) [Mass/Vol] 36.6 mg/L [facility] Albumin/Creatinine (U) [Mass ratio] 86 mg/g High <30 mg/g [facility] Creatinine (U) [Mass/Vol] 42.8 mg/dL 20.0 - 300.0 mg/dL [facility] CBC W Auto Differential pane l (Bld)on 09-26-2021 Abs Immature Gran 0.04 k/uL <0.10 k/uL [facility] Basophils (Bld) [#/Vol] 0.15 10*3/uL High <0.11 k/uL [facility] Basophils/100 WBC (Bld) 1.4 % [facility] Differential cell count method Nom (Bld) Auto [facility] Eosinophils (Bld) [#/Vol] 0.62 10*3/uL High <0.46 k/uL [facility] Eosinophils/100 WBC (Bld) 5.6 % [facility] Erythrocyte distribution width (RBC) [Ratio] 11.9 % 11.5 - 15.0 % [facility] Hematocrit (Bld) [Volume fraction] 43.4 % 36.0 - 46.0 % [facility] Hemoglobin (Bld) [Mass/Vol] 14.0 g/dL 11.5 - 15.5 g/dL [facility] Immature Gran % 0.4 % [facility] Lymphocytes (Bld) [#/Vol] 4.75 10*3/uL High 1.00 - 4.00 k/uL [facility] Lymphocytes/100 WBC (Bld) 43.1 % [facility] MCH (RBC) [Entitic mass] 30.8 pg 26.0 - 34.0 pg [facility] MCHC (RBC) [Mass/Vol] 32.3 g/dL 30.5 - 36.0 g/dL [facility] MCV (RBC) [Entitic vol] 95.4 fL 80.0 - 100.0 fL [facility] Monocytes (Bld) [#/Vol] 0.87 10*3/uL High <0.87 k/uL [facility] Monocytes/100 WBC (Bld) 7.9 % [facility] Neutrophils (Bld) [#/Vol] 4.59 10*3/uL 1.45 - 7.50 k/uL [facility] Neutrophils/100 WBC (Bld) 41.6 % [facility] Nucleated RBC (Bld) [#/Vol] 10*3/uL <0.01 k/uL [facility] Nucleated RBC/100 WBC (Bld) [Ratio] 0.0 /100 WBC [facility] Platelet mean volume (Bld) [Entitic vol] 9.3 fL 9.0 - 12.7 fL [facility] Platelets (Bld) [#/Vol] 323 10*3/uL 150 - 400 k/uL [facility] RBC (Bld) [#/Vol] 4.55 10*6/uL 3.90 - 5.2 0 m/uL [facility] WBC (Bld) [#/Vol] 11.02 10*3/uL High 3.70 - 11 .00 k/uL [facility] Comprehensive metabolic 2000 panelon 09-26-2021 Albumin [Mass/Vol] 4.5 g/dL 3.9 - 4.9 g/dL [facility] ALP [Catalytic activity/Vol] 30 U/L Low 34 - 123 U/L [facility] ALT [Catalytic activity/Vol] 20 U/L 7 - 38 U/L [facility] Anion gap [Moles/Vol] 13 mmol/L 9 - 18 mmol/L [facility] AST [Catalytic activity/Vol] 24 U/L 13 - 35 U/L [facility] Bilirubin [Mass/Vol] 0.2 mg/dL 0.2 - 1 .3 mg/dL [facility] Calcium [Mass/Vol] 10.0 mg/dL 8.5 - 10. 2 mg/dL [facility] Chloride [Moles/Vol] 98 mmol/L 97 - 10 5 mmol/L [facility] CO2 [Moles/Vol] 24 mmol/L 22 - 30 mmol/L [facility] Creatinine [Mass/Vol] 0.68 mg/dL 0.58 - 0.96 mg/dL [facility] Estimated Glomerular Filtration Rate 90 mL/min/1.73m >=60 mL/min/1.73m [facility] Glucose [Mass/Vol] 179 mg/dL High 74 - 99 mg/dL [facility] Potassium [Moles/Vol] 4.6 mmol/L 3.7 - 5.1 mmol/L [facility] Protein [Mass/Vol] 7.2 g/dL 6.3 - 8.0 g/dL [facility] Sodium [Moles/Vol] 135 mmol/L Low 136 - 144 mmol/L [facility] Urea nitrogen [Mass/Vol] 17 mg/dL 7 - 21 mg/dL [facility] HGB A1Con 09-26-2021 Average glucose Estimated from glycated hemoglobin (Bld) [Mass/Vol] 220 mg/dL [facility] HbA1c (Bld) [Mass fraction] 9.3 % High 4.3 - 5.6 % [facility] LIPID PANEL, NONFASTINGon Cholesterol [Mass/Vol] 212 mg/dL High <200 mg/dL [facility] HDL Cholesterol, Nonfasting 46 mg/dL >39 mg/dL [facility] LDL Cholesterol, Nonfasting 105 mg/dL High <100 mg/dL [facility] LDL/HDL Ratio, Nonfasting 2.28 mg/dL <2.54 mg/dL [facility] Non HDL Cholesterol, Nonfasting 166 mg/dL High <130 mg/dL [facility] Total Chol/HDL Ratio, Nonfasting 4.61 mg/dL <5.10 mg/dL [facility] Triglycerides, Nonfasting 303 mg/dL High <150 mg/dL [facility] VLDL Cholesterol, Nonfasting 61 mg/dL High <30 mg/dL [facility] TSH BLDon 09-26-2021 TSH Qn 3.130 m[IU]/L 0.270 - 4.200 mIU/L [facility] CNOVon 07-18-2021 CNOV Office Visit (NEAGCL M) SHEREE CHAVEZ ([id number]) 1945 F Date Time Provider Department 07/18/21 10:30 AM DARRICK PIERRE NEAGCLM During your visit today, we recorded the following information about you: Temperature Pulse Blood pressure Weight 97.3 degrees 69/minute 118/80 80.7 kg Height 1.651 m Darrick Pierre MD 07/18/2021 11:27 AM Signed NEUROSURGERY FOLLOW UP OFFICE NOTE Dr. Darrick Pierre MD, [facility] Date of visit:July 18, 2021 Patient Name: Ms.Alma Darshan Chavez Date of : 1945 Current Age: [age] year old Sex: female MRN/E# [id number] Last Office Visit: June 08, 2021 Chief Complaint: Patient presents with: Established Patient SUBJECTIVE: The patient presents for a follow-up with imaging (CT B) for evaluation. She was initially seen in consult on 05/11/2021 after presenting to the emergency department with headache and lightheadedness. She was on a stool and fell backwards striking the right side of her head on the floor. She did not lose consciousness and denied taking any blood thinning medications. Imaging was completed and demonstrated a subdural hemorrhage along the falx and right frontoparietal convexity as well as a subarachnoid hemorrhage over the bilateral parietal convexities. Neurologically she was intact and no surgical intervention was indicated. Repeat imaging was stable. She has been seen and evaluated with imaging routinely since discharge and has overall done well. She was last seen 6 weeks ago and continued to report that she was doing well with only tenderness at the site where she struck her head. CT scan was reviewed and demonstrated evolution of the intracranial hemorrhages. Recommendation was to follow-up in [address] of the brain prompting her visit today. Since last visit she states she is slowly improving. She denies any significant headaches or concerns. She continues to have discomfort and occasional pain where she struck her head. No other issues. She presents for image review, evaluation and plan of care. Symptoms: Mild tenderness- right side of head PREVIOUS CONSERVATIVE TREATMENTS: None PREVIOUS SURGERY: None PAIN EVALUATION No data found in the last 1 encounters. PAST MEDICAL HISTORY Diagnosis Date - Absence of menstruation - Anxiety state, unspecified - Benign neoplasm of colon - Diverticulosis of colon (without mention of hemorrhage) - Esophageal reflux - Essential hypertension, benign - Internal hemorrhoids without mention of complication - Mental disorder - Obesity, unspecified - Other and unspecified hyperlipidemia - Type II or unspecified type diabetes mellitus without mention of complication, not stated as uncontrolled PAST SURGICAL HISTORY Procedure Laterality Date - BX OF BREAST; INCISIONAL Bx of breast, incisional - COLONOS W/REM POLYP SNARE 01/21/08 - COLONOSCOP W/ OR W/O BRSH SPEC 02/21/15 Colonoscopy - DESTR LESION BENIGN/PREMAL 11/13/07 Partially avulsed SK left upper arm - PAST SURGICAL HISTORY OF RIGHT TRIGGER THUMB - PAST SURGICAL HISTORY OF 06/20 cataract revision; bilateral eyes - PAST SURGICAL HISTORY OF Bilateral 2015 Cataract surgery FAMILY HISTORY Problem Relation Age of Onset - Cancer Father LIVER - Heart Father CABG - Heart Mother - Osteoporosis Mother - Diabetes Paternal Grandmother - Breast Cancer Maternal Aunt ALLERGIES Allergen Reactions - Palm Oil GI Upset - Accupril [Quinapril* Other: See Comments Pt unsure why this is listed. Not sure what allergy is - Asa [Salicylates] GI Upset - Penicillins Hives - Vicodin [Hydrocodon* GI Upset - Bees - Codeine Intolerance - Metformin GI Upset diarrhea higher dose Current Outpatient Medications Medication Sig Dispense Refill - ALPRAZolam (XANAX) 0.5 mg tablet Take 1 tablet by mouth twice daily as needed for up to 90 days. 60 tablet 2 - therapeutic multivitamin w/ iron (THERAGRAN-M) 27-0.4 mg tablet Take 1 tablet by mouth once daily. - fluticasone (FLONASE) 50 mcg/actuation nasal spray Use 1 [place] in each nostril once daily as needed. - COLLAGEN MISC Take 1 Dose by mouth once daily. Pt mixes one scope of collagen powder creamer in tea or coffee daily. Pt unable to confirm which OTC product/brand she takes. - cannabidiol, CBD, (CANNABIDIOL ORAL) Take 1-2 Each by mouth once daily. Pt reports taking 1-2 CBD gummies OTC daily for pain and muscle aches. Pt purchases these online and was unable to confirm the dose or brand. Pt does not report endorsement of this medication from a provider. - levothyroxine (SYNTHROID) 50 mcg tablet Take 1 tablet by mouth once daily. DOSE CHANGE. Take on empty stomach. For Thyroid 90 tablet 3 - FLUoxetine (PROZAC) 10 mg capsule Take 1 capsule by mouth once daily. 90 capsule 3 - glimepiride (AMARYL) 2 mg tablet Take 1 tablet by mouth once daily. 90 ta (more content not included)... Normal [facility] CT BRAIN WO IVCONon 07-18-19 CT BRAIN WO IVCON * * *Final Report* * * DATE OF EXAM: Jul 18 2021 10:10AM A1C 0504 - CT BRAIN WO IVCON / PROCEDURE REASON: multiple diagnoses * * * * Physician Interpretation * * * * EXAMINATION: CT BRAIN WO IVCON CLINICAL HISTORY: Subdural hematoma (HCC) Intracranial hemorrhage (HCC) fall 05/11/21, SDH follow up, no complalints TECHNIQUE: Serial axial images without IV contrast were obtained from the vertex to the foramen magnum. MQ: CTBWO_3 CT Radiation dose: Integrated Dose-Length Product (DLP) for this visit = 794.52 mGy*cm CT Dose Reduction Employed: No dose reduction techniques were required COMPARISON: 06/08/2021 RESULT: Post-operative change: None. Acute change: No evidence of an acute infarct or other acute parenchymal process. Hemorrhage: No evidence of acute intracranial hemorrhage. ECASS hemorrhagic transformation score: Not Applicable Mass Lesion / Mass Effect: Interval resolution of the right parafalcine thin subdural hematoma and of the prior noted minimal right frontal parietal subarachnoid hemorrhage. No new hemorrhage in the interval. Chronic change: Scattered patchy foci of low attenuation are present within supratentorial white matter which is a nonspecific finding but likely represents mild microvascular ischemia. Parenchyma: There is no significant volume loss. The brain parenchyma is otherwise within normal limits for age. Ventricles: The ventricles are within normal limits of size and configuration for age. Paranasal sinuses and skull base: The visualized paranasal sinuses are grossly clear. The skull base and imaged soft tissues are unremarkable. Retail Field Representative (topogram) images: No additional significant findings. IMPRESSION: Interval resolution of the previously noted parafalcine subdural hemorrhage and right frontal parietal subarachnoid hemorrhage. No new hemorrhage in the interval. Mild chronic microvascular ischemic change throughout the supratentorial white matter. Is Project Manager: [employer] Transcribe Date/Time: Jul 18 2021 2:47P Dictated by : AUSTIN JOHNSTON MD This examination was interpreted and the report reviewed and electronically signed by: AUSTIN JOHNSTON MD on Jul 18 2021 2:56PM EST [id number] Normal [facility] CNOVon 06-08-2021 CNOV Office Visit (JAYDON ) SHEREE CHAVEZ ([id number]) 1945 F Date Time Provider Department 06/08/21 10:30 AM DARRICK PIERRE During your visit today, we recorded the following information about you: Temperature Pulse Blood pressure Weight 97.6 degrees 83/minute 100/62 80.7 kg Height 1.651 m Darrick Pierre MD 06/08/2021 11:57 AM Signed NEUROSURGERY FOLLOW UP OFFICE NOTE Dr. Darrick Pierre MD, [facility] Date of visit: June 08, 2021 Patient Name: Ms.Alma Darshan Chavez Date of : 1945 Current Age: [age] year old Sex: female MRN/E# [id number] Last Office Visit: May 25, 2021 Chief Complaint: Patient presents with: Established Patient SUBJECTIVE: The patient presents as a hospital follow-up with imaging (CT B) for evaluation. She was initially seen in consult on 05/11/2021 after presenting to the emergency department with headache and lightheadedness. She was on a stool and fell backwards striking the right side of her head on the floor. She did not lose consciousness and denied taking any blood thinning medications. Imaging was completed and demonstrated an anterior hemispheric posterior falx subdural hematoma as well as a subarachnoid hemorrhage bilaterally more on the right side and a surface hematoma in the right parietal lobe. Neurologically she was intact and no surgical intervention was indicated. Repeat imaging was stable. She was seen in the office 2 weeks after discharge with a repeat CT head. She reported that she was overall doing well with the exception of tenderness on the right side of her head where it was struck when she fell. CT scan was reviewed and demonstrated improvement in the intrahemispheric subdural and significant resolution of the surface hemorrhage in the right parietal region. Recommendation was to follow-up in 2 weeks with a repeat CT of the brain prompting her visit today. Since last visit she states she is overall doing well. Continues to have tenderness at the site where she struck her head but denies any new or concerning issues. She presents for image review, evaluation and plan of care. Symptoms: Mild tenderness- right side of head PREVIOUS CONSERVATIVE TREATMENTS: None PREVIOUS SURGERY: None PAIN EVALUATION 06/08/2021 1135 Pain Level: 2 Pain Location: Head Description: Sore Frequency: Intermittent PAST MEDICAL HISTORY Diagnosis Date - Absence of menstruation - Anxiety state, unspecified - Benign neoplasm of colon - Diverticulosis of colon (without mention of hemorrhage) - Esophageal reflux - Essential hypertension, benign - Internal hemorrhoids without mention of complication - Mental disorder - Obesity, unspecified - Other and unspecified hyperlipidemia - Type II or unspecified type diabetes mellitus without mention of complication, not stated as uncontrolled PAST SURGICAL HISTORY Procedure Laterality Date - BX OF BREAST; INCISIONAL Bx of breast, incisional - COLONOS W/REM POLYP SNARE 01/21/08 - COLONOSCOP W/ OR W/O BRSH SPEC 02/21/15 Colonoscopy - DESTR LESION BENIGN/PREMAL 11/13/07 Partially avulsed SK left upper arm - PAST SURGICAL HISTORY OF RIGHT TRIGGER THUMB - PAST SURGICAL HISTORY OF 06/20 cataract revision; bilateral eyes - PAST SURGICAL HISTORY OF Bilateral 2015 Cataract surgery FAMILY HISTORY Problem Relation Age of Onset - Cancer Father LIVER - Heart Father CABG - Heart Mother - Osteoporosis Mother - Diabetes Paternal Grandmother - Breast Cancer Maternal Aunt ALLERGIES Allergen Reactions - Palm Oil GI Upset - Accupril [Quinapril* Other: See Comments Pt unsure why this is listed. Not sure what allergy is - Asa [Salicylates] GI Upset - Penicillins Hives - Vicodin [Hydrocodon* GI Upset - Bees - Codeine Intolerance - Metformin GI Upset diarrhea higher dose Current Outpatient Medications Medication Sig Dispense Refill - therapeutic multivitamin w/ iron (THERAGRAN-M) 27-0.4 mg tablet Take 1 tablet by mouth once daily. - fluticasone (FLONASE) 50 mcg/actuation nasal spray Use 1 [place] in each nostril once daily as needed. - COLLAGEN MISC Take 1 Dose by mouth once daily. Pt mixes one scope of collagen powder creamer in tea or coffee daily. Pt unable to confirm which OTC product/brand she takes. - cannabidiol, CBD, (CANNABIDIOL ORAL) Take 1-2 Each by mouth once daily. Pt reports taking 1-2 CBD gummies OTC daily for pain and muscle aches. Pt purchases these online and was unable to confirm the dose or brand. Pt does not report endorsement of this medication from a provider. - ALPRAZolam (XANAX) 0.5 mg tablet Take 1 tablet by mouth twice daily as needed for up to 90 days. 60 tablet 2 - levothyroxine (SYNTHROID) 50 mcg tablet Take 1 tablet by mouth once daily. DOSE CHANGE. Take on empty stomach. For Thyroid 90 tablet 3 - FLUoxetine (PROZAC) 10 mg (more content not included)... Normal [facility] CT BRAIN WO IVCONon 06-08-[address] BRAIN WO IVCON * * *Final Report* * * DATE OF EXAM: Jun 08 2021 11:27AM A1C 0504 - CT BRAIN WO IVCON / PROCEDURE REASON: multiple diagnoses * * * * Physician Interpretation * * * * EXAMINATION: CT BRAIN WO IVCON CLINICAL HISTORY: Subdural hematoma (HCC) Intracranial hemorrhage (HCC) Monitor 11.4.21 pt fell, SAH pt feels good TECHNIQUE: Serial axial images without IV contrast were obtained from the vertex to the foramen magnum. MQ: CTBWO_3 CT Radiation dose: Integrated Dose-Length Product (DLP) for this visit = 794.52 mGy*cm CT Dose Reduction Employed: No dose reduction techniques were required COMPARISON: 05/25/2021. RESULT: Post-operative change: None. Acute change: Interval decrease of trace subarachnoid hemorrhage within right frontal lobe. Minimal trace subarachnoid hemorrhage remains on image 26. Interval decrease in trace parafalcine subdural hemorrhage. Minimal trace subdural hemorrhage remains. No CT evidence of new acute cortical infarct. No CT evidence of new acute intracranial hemorrhage. Mass Lesion / Mass Effect: No evidence of significant midline shift. Chronic change: Scattered patchy foci of low attenuation are present within supratentorial white matter which is a nonspecific finding but likely represents mild microvascular ischemia. Parenchyma: There is mild generalized volume loss. The brain parenchyma is otherwise within normal limits for age. Ventricles: Ventricular enlargement concordant with the degree of parenchymal volume loss. Paranasal sinuses and skull base: The visualized paranasal sinuses are grossly clear. The skull base and imaged soft tissues are unremarkable. Retail Field Representative (topogram) images: No additional findings. IMPRESSION: 1. Interval decrease of trace subarachnoid hemorrhage within right frontal lobe. Interval decrease in trace parafalcine subdural hemorrhage. No CT evidence of new intracranial hemorrhage. No significant mass effect. 2. No CT evidence of acute cortical infarct. 3. Chronic small vessel ischemic white matter disease and diffuse cerebral volume loss. Is Project Manager: [facility] Transcribe Date/Time: Jun 08 2021 1:15P Dictated by : LAMONTE COLINDRES MD This examination was interpreted and the report reviewed and electronically signed by: LAMONTE COLINDRES MD on Jun 08 2021 1:25PM EST [id number] Normal [facility] CNOVon 05-25-2021 CNOV Office Visit (NUAGAK ) SHEREE CHAVEZ ([id number]) 1945 F Date Time Provider Department 05/25/21 10:15 AM DARRICK PIERRE During your visit today, we recorded the following information about you: Temperature Pulse Blood pressure Weight 97.6 degrees 72/minute 118/62 82.6 kg Height 1.664 m Darrick Pierre MD 05/25/2021 10:56 AM Signed NEUROSURGERY FOLLOW UP OFFICE NOTE Dr. Darrick Pierre MD, FACS Date of visit: May 25, 2021 Patient Name: Ms.Alma Darshan Chavez Date of : 1945 Current Age: [age] year old Sex: female MRN/E# [id number] Last Office Visit: Hospital follow-up Chief Complaint: Patient presents with: Established Patient SUBJECTIVE: The patient presents as a hospital follow-up with imaging (CT B) for evaluation. She was seen in consult on 05/11/2021 after presenting to the emergency department with headache and lightheadedness. Apparently she was on a stool and fell backwards striking the right side of her head on the floor. She did not lose consciousness and denied taking any blood thinning medications. Imaging was completed and demonstrated an anterior hemispheric posterior falx subdural hematoma as well as a subarachnoid hemorrhage bilaterally more on the right side and a surface hematoma in the right parietal lobe. Neurologically she was intact and no surgical intervention was indicated. Repeat imaging was stable. Recommendation was to follow-up in [address] head prompting her visit today. Since discharge she states she is overall doing well. She reports tenderness on the right side where she struck her head but otherwise no new issues. She presents for image review, evaluation and plan of care. Symptoms: Mild tenderness PREVIOUS CONSERVATIVE TREATMENTS: None PREVIOUS SURGERY: None PAIN EVALUATION 05/25/2021 0954 Pain Level: 2 Pain Location: Head Description: Aching;Dull Duration Amount of Time: 2 Duration Units: Weeks Frequency: Continuous Intervention/Comfort measure: Medication PAST MEDICAL HISTORY Diagnosis Date - Absence of menstruation - Anxiety state, unspecified - Benign neoplasm of colon - Diverticulosis of colon (without mention of hemorrhage) - Esophageal reflux - Essential hypertension, benign - Internal hemorrhoids without mention of complication - Mental disorder - Obesity, unspecified - Other and unspecified hyperlipidemia - Type II or unspecified type diabetes mellitus without mention of complication, not stated as uncontrolled PAST SURGICAL HISTORY Procedure Laterality Date - BX OF BREAST; INCISIONAL Bx of breast, incisional - COLONOS W/REM POLYP SNARE 01/21/08 - COLONOSCOP W/ OR W/O BRSH SPEC 02/21/15 Colonoscopy - DESTR LESION BENIGN/PREMAL 11/13/07 Partially avulsed SK left upper arm - PAST SURGICAL HISTORY OF RIGHT TRIGGER THUMB - PAST SURGICAL HISTORY OF 06/20 cataract revision; bilateral eyes - PAST SURGICAL HISTORY OF Bilateral 2014 Cataract surgery FAMILY HISTORY Problem Relation Age of Onset - Cancer Father LIVER - Heart Father CABG - Heart Mother - Osteoporosis Mother - Diabetes Paternal Grandmother - Breast Cancer Maternal Aunt ALLERGIES Allergen Reactions - Palm Oil GI Upset - Accupril [Quinapril* Other: See Comments Pt unsure why this is listed. Not sure what allergy is - Asa [Salicylates] GI Upset - Penicillins Hives - Vicodin [Hydrocodon* GI Upset - Bees - Codeine Intolerance - Metformin GI Upset diarrhea higher dose Current Outpatient Medications Medication Sig Dispense Refill - therapeutic multivitamin w/ iron (THERAGRAN-M) 27-0.4 mg tablet Take 1 tablet by mouth once daily. - fluticasone (FLONASE) 50 mcg/actuation nasal spray Use 1 [place] in each nostril once daily as needed. - COLLAGEN MISC Take 1 Dose by mouth once daily. Pt mixes one scope of collagen powder creamer in tea or coffee daily. Pt unable to confirm which OTC product/brand she takes. - cannabidiol, CBD, (CANNABIDIOL ORAL) Take 1-2 Each by mouth once daily. Pt reports taking 1-2 CBD gummies OTC daily for pain and muscle aches. Pt purchases these online and was unable to confirm the dose or brand. Pt does not report endorsement of this medication from a provider. - ALPRAZolam (XANAX) 0.5 mg tablet Take 1 tablet by mouth twice daily as needed for up to 90 days. 60 tablet 2 - levothyroxine (SYNTHROID) 50 mcg tablet Take 1 tablet by mouth once daily. DOSE CHANGE. Take on empty stomach. For Thyroid 90 tablet 3 - FLUoxetine (PROZAC) 10 mg capsule Take 1 capsule by mouth once daily. 90 capsule 3 - glimepiride (AMARYL) 2 mg tablet Take 1 tablet by mouth once daily. 90 tablet 3 - metFORMIN ER (GLUCOPHAGE XR) 500 mg 24 hr tablet TAKE 2 TABLETS BY MOUTH EVERY DAY WITH BREAKFAST 60 tablet 11 - lisinopril (ZESTRIL) 20 mg tablet Take 1 tablet by mouth once d (more content not included)... Normal [facility] CT BRAIN WO IVCONon 05-25-[address] BRAIN WO IVCON * * *Final Report* * * DATE OF EXAM: May 25 2021 9:35AM A1C 0504 - CT BRAIN WO IVCON / PROCEDURE REASON: Intracranial hemorrhage (HCC) * * * * Physician Interpretation * * * * EXAMINATION: CT BRAIN WO IVCON CLINICAL HISTORY: Intracranial hemorrhage. Follow-up. TECHNIQUE: Serial axial images without IV contrast were obtained from the vertex to the foramen magnum. MQ: CTBWO_3 CT Radiation dose: Integrated Dose-Length Product (DLP) for this visit = 794.52 mGy*cm CT Dose Reduction Employed: No dose reduction techniques were required COMPARISON: 05/12/2021 RESULT: Post-operative change: None. Acute change: No evidence of an acute infarct or other acute parenchymal process. Hemorrhage: Decreased conspicuity hyperdense subdural hematoma associated with the interhemispheric falx, currently measuring approximately 2 mm in maximal thickness, previously approximately 4 mm. No definitive residual right frontal parietal convexity subdural hematoma. Trace right frontal parietal subarachnoid hemorrhage is less conspicuous. No new hemorrhage in the interval. Mass Lesion / Mass Effect: There is no evidence of an intracranial mass or extraaxial fluid collection. No significant mass effect. Chronic change: Patchy foci of low attenuation coefficient are present within the supratentorial white matter which is a nonspecific finding but likely represents moderate microvascular ischemia. Parenchyma: There is no significant volume loss. The brain parenchyma is otherwise within normal limits for age. Ventricles: The ventricles are within normal limits of size and configuration for age. Paranasal sinuses and skull base: No depressed calvarial fracture. Small right parietal region scalp hematoma, decreased since prior. The paranasal sinuses and the mastoid air cells are grossly clear. Retail Field Representative (topogram) images: No additional significant findings. IMPRESSION: Decreased conspicuity hyperdense subdural hematoma associated with the interhemispheric falx, currently measuring approximately 2 mm in maximal thickness, previously approximately 4 mm. No definitive residual right frontal parietal convexity subdural hematoma. Trace right frontal parietal subarachnoid hemorrhage is less conspicuous. No new hemorrhage in the interval. Is Project Manager: [employer] Transcribe Date/Time: May 25 2021 1:27P Dictated by : AUSTIN JOHNSTON MD This examination was interpreted and the report reviewed and electronically signed by: AUSTIN JOHNSTON MD on May 25 2021 1:37PM EST [id number] Normal [facility] Basic metabolic 2000 panelon 05-13-2021 Anion gap [Moles/Vol] 10 mmol/L Normal -18 [facility] Comment on above: Order Comment: Speci men Type: BLOOD SPECIMEN Performed By: #### 1 9123-9, 2777-, 71931-7 ####[facility]ORY[facility] [id number] [place] [address] [place] Calcium [Mass/Vol] 8.9 mg/dL Normal 8.5-10.2 [facility] Comment on above: Order Comment: Speci men Type: BLOOD SPECIMEN Performed By: #### 1 9123-9, 27701-05, 86647-0 ####[facility] [id number] [place] [address] [place] Chloride [Moles/Vol] 102 mmol/L Normal 97-105 [facility] Comment on above: Order Comment: Speci men Type: BLOOD SPECIMEN Performed By: #### 1 9123-9, 27701-05, 15177-3 ####[facility] [id number] [place] [address] [place] CO2 [Moles/Vol] 24 mmol/L Normal 22-30 [facility] Comment on above: Order Comment: Speci men Type: BLOOD SPECIMEN Performed By: #### 1 9123-9, 2777, 30539-5 ####[facility] [id number] [place] [address] [place] Creatinine [Mass/Vol] 0.78 mg/dL Normal 0.58-0.96 [facility] Comment on above: Order Comment: Speci [facility] Type: BLOOD SPECIMEN Performed By: #### 1 9123-9, 2777-1, 77266-5 ####[facility]ORY[facility] [id number] [address] [place] GFR/1.73 sq M.predicted MDRD (S/P/Bld) [Vol rate/Area] mL/min/{1.73_m2} Normal [facility] Comment on above: Order Comment: Speci men Type: BLOOD SPECIMEN Result Comment: >60 eGFR (Estimated GFR) Units of measure: mL/min/1.73 meters squared eGFR is derived from the reexpressed MDRD Study equation using the following parameters: serum creatinine, age, gender and race. The creatinine assay has been calibrated to be traceable to IDMS. An eGFR <60 mL/min/1.73m2 for >3 months is consistent with chronic kidney disease. Refer to KDOQI guidelines for clinical interpretation. In patients with unstable renal function, e.g. those with acute kidney injury, the eGFR may not accurately reflect actual GFR. Performed By: #### 1 9123-9, 2777-1, 73526-3 ####[facility]ORY[facility] [id number] [place] [address] [place] Glucose [Mass/Vol] 167 mg/dL High 74-99 [facility] Comment on above: Order Comment: [facility] Type: BLOOD SPECIMEN Result Comment: The [place] [employer] (ADA) provides guidance for cutoff values for fasting glucose and random glucose. The ADA defines fasting as no caloric intake for at least 8 hours. Fasting plasma glucose results between 100 to 125 mg/dL indicate increased risk for diabetes (prediabetes). Fasting plasma glucose results greater than or equal to 126 mg/dL meet the criteria for diagnosis of diabetes. In the absence of unequivocal hyperglycemia, results should be confirmed by repeat testing. In a patient with classic symptoms of hyperglycemia or hyperglycemic crisis, random plasma glucose results greater than or equal to 200 mg/dL meet the criteria for diagnosis of diabetes. Reference: Standards of Medical Care in Diabetes 2016, [place] [employer]. Diabetes Care. 2016.39(Suppl 1). Performed By: #### 1 9123-9, 2777, 76644-2 ####[facility]ORY[facility] [id number] [address] Potassium [Moles/Vol] 4.1 mmol/L Normal 3.7-5.1 [facility] Comment on above: Order Comment: Speci men Type: BLOOD SPECIMEN Performed By: #### 1 9123-9, 2777, 39515-4 ####[facility]ORY[facility] [id number] [address] Sodium [Moles/Vol] 136 mmol/L Normal 136-144 [facility] Comment on above: Order Comment: Speci men Type: BLOOD SPECIMEN Performed By: #### 1 9123-9, 27701-05, ####[facility]ORY[facility]IA [id number] [address] Urea nitrogen [Mass/Vol] 14 mg/dL Normal 7-21 [facility] Comment on above: Order Comment: Speci men Type: BLOOD SPECIMEN Performed By: #### 1 9123-9, 2777, ####[facility]ORY[facility] [id number] [address] CALCIUM IONIZED Bon 05-13-20 21 Calcium.ionized (BldV) [Mass/Vol] 1.08 mmol/L Normal 1.08-1.30 [facility] Comment on above: Order Comment: Speci men Type: BLOOD SPECIMEN Performed By: #### I CA ####[facility]ORYCLIA [id number] 09 [address] Calcium.ionized adjusted to pH 7.4 (Bld) [Moles/Vol] 1.09 mmol/L Normal 1.08-1.30 [facility] Comment on above: Order Comment: Speci men Type: BLOOD SPECIMEN Performed By: #### I CA ####[facility]ORY[facility] [id number] [address] CBC panel Auto (Bld)on 05-13 Erythrocyte distribution width (RBC) [Ratio] 11.9 % Normal 11.5-15.0 [facility] Comment on above: Order Comment: Speci men Type: BLOOD SPECIMEN Performed By: #### 5 8410-2 ####[facility]ORYCLIA [id number] [address] Hematocrit (Bld) [Volume fraction] 39.1 % Normal 36.0-46.0 [facility] Comment on above: Order Comment: Speci men Type: BLOOD SPECIMEN Performed By: #### 5 8410-2 ####[facility]ORY[facility] [id number] [address] Hemoglobin (Bld) [Mass/Vol] 12.9 g/dL Normal 11.5-15.5 [facility] Comment on above: Order Comment: Speci men Type: BLOOD SPECIMEN Performed By: #### 5 8410-2 ####[facility]ORYCLIA [id number] [address] MCH (RBC) [Entitic mass] 31.2 pg Normal 26.0-34.0 [facility] Comment on above: Order Comment: Speci men Type: BLOOD SPECIMEN Performed By: #### 5 8410-2 ####[facility]ORYCL[facility] [id number] [address] MCHC (RBC) [Mass/Vol] 33.0 g/dL Normal 30.5-36.0 [facility] Comment on above: Order Comment: Speci men Type: BLOOD SPECIMEN Performed By: #### 5 8410-2 ####[facility]ORYCLIA [id number] [address] MCV (RBC) [Entitic vol] 94.7 fL Normal 80.0-100.0 [facility] Comment on above: Order Comment: Speci men Type: BLOOD SPECIMEN Performed By: #### 5 8410-2 ####[facility]ORYCLIA [id number] [address] [place] Nucleated RBC (Bld) [#/Vol] 10*3/uL Normal <0.01 [facility] Comment on above: Order Comment: Speci men Type: BLOOD SPECIMEN Performed By: #### 5 8410-2 ####[facility]ORY[facility]IA [id number] [address] Platelet mean volume (Bld) [Entitic vol] 9.2 fL Normal 9.0-12.7 [facility] Comment on above: Order Comment: Speci men Type: BLOOD SPECIMEN Performed By: #### 5 8410-2 ####[facility]ORYCLIA [id number] [address] Platelets (Bld) [#/Vol] 278 10*3/uL Normal 150-400 [facility] Comment on above: Order Comment: Speci men Type: BLOOD SPECIMEN Performed By: #### 5 8410-2 ####[facility]ORY[facility]IA [id number] [address] RBC (Bld) [#/Vol] 4.13 10*6/uL Normal 3.90-5.20 [facility] Comment on above: Order Comment: Speci men Type: BLOOD SPECIMEN Performed By: #### 5 8410-2 ####[facility]ORY[facility]IA [id number] [address] WBC (Bld) [#/Vol] 8.56 10*3/uL Normal 3.70-11.00 [facility] Comment on above: Order Comment: Speci men Type: BLOOD SPECIMEN Performed By: #### 5 8410-2 ####[facility]ORYCLIA [id number] [address] CNDSon 05-13-2021 CNDS HNO ID: [id number] Author: Margret Dawson APRN.CNP Service: General Surgery Author Type: Nurse Practitioner Type: Discharge Summary Filed: 05/13/2021 10:39 AM Note Text: Attestation signed by Lane Raymundo MD at 05/13/2021 10:50 AM Attending Note The patient is appropriate for discharge. Lane Raymundo MD DISCHARGE SUMMARY PATIENT NAME: Sheree Chavez Code Status: Not on file Highest Readmission Risk Score: 15 The 30 day readmissions risk score is derived from an internally validated risk model which evaluates patient level characteristics, utilization history, medication orders and lab results up until the day of discharge. Patients with a score of 40 or above are considered highest risk for readmission. Specific patient level drivers will be listed at the bottom of the summary. Admission Information Admission Information ADMIT DATE: 05/11/2021 DISCHARGE DATE: 05/13/2021 MY DOCTORS AND MEDICAL TEAM: [facility] Doctor: Chacho Ocampo MD Primary Care Provider: Deirdre Quiñones MD My Medical Team Members: Treatment Team: Attending Provider: Chacho Ocampo MD Consulting: Lane Flores MD Consulting: Darrick Pierre MD Consulting: Roxy Goodwin MD MY CONDITION AT DISCHARGE: Stable REASON I WAS IN THE HOSPITAL: Fall SUMMARY OF WHAT HAPPENED WHILE I WAS IN THE HOSPITAL: You were admitted at [facility] on 05/11/2021 following a fall. As part of your trauma evaluation you received CT scans of your head, neck, pelvis, and lumbar spine as well as x-rays of your right hip and cervical spine. These images revealed subarachnoid and subdural hemorrhage (traumatic brain injuries). During your hospitalization you were seen by specialists in neurosurgery and orthopedic surgery. Neurosurgery recommended non-operative management of your traumatic brain injury (TBI). You should not take your aspirin until cleared by neurosurgery. You were evaluated by orthopedic surgery for a possible right hip fracture but this was ruled out by CT scan of your pelvis. You will need to make follow up appointments with neurosurgery and your primary care provider. OTHER PROBLEMS/DIAGNOSIS: Active Problems: Subdural hematoma (HCC) TBI (traumatic brain injury) (HCC) Fall Subarachnoid hemorrhage following injury, no loss of consciousness (HCC) Resolved Problems: * No resolved hospital problems. * OPERATIONS PERFORMED WHILE IN THE HOSPITAL: None IMPORTANT TEST/PROCEDURES: No procedures performed TEST RESULTS NOT AVAILABLE AT THIS TIME: No pending results Discharge Disposition Discharge Disposition: Home With Self Care Activity When You Leave the Hospital Limited to: Light activity such as walking Diet Instructions Resume your pre-hospital diet For Pain When You Leave the Hospital Continue taking previously prescribed pain medications as directed If you become constipated, you may use any hami-xwk-tmlyzxs treatment such as Milk of Magnesia, Sennakot, Prune Juice, Suppositories, etc. in addition to the stool softener/fiber supplement Other: Do not take any over the counter blood thinning medications such as ibuprofen, motrin, aspirin, naproxen, or aleve until cleared by neurosurgery. Use acetaminophen (Tylenol) as recommended on the bottle You should use an rkai-fhm-ybafxni stool softener (Docusate sodium) and/or a fiber supplement (Metamucil, Fiber Con) every day while taking prescribed pain medication Call Your Doctor If You have a severe headache You have lightheadedness, fainting, or confusion You have pain and swelling in your legs, especially if it is only on one side and not the other You have persistent nausea/vomiting over 24 hours Your temperature is greater than 101F Follow Up Appointments Follow-Up Appointment When: In 2 weeks Patient/Parents to call for appointment?: Yes Darrick Pierre MD [phone] [facility] [address] PCP Requested Referral Follow-Up Appointment When: In 2 weeks Patient/Parents to call for appointment?: Yes Deirdre Quiñones MD [phone] [address] [place] [address] PCP Requested Referral Additional Provider to Provider Information: Active Problems: Subdural hematoma (HCC) TBI (traumatic brain injury) (HCC) Fall Subarachnoid hemorrhage following injury, no loss of consciousness (HCC) Resolved Problems: * No resolved hospital problems. * Treatment Team: Attending Provider: Chacho Ocampo MD Consulting: Lane Flores MD Consulting: Darrick Pierre MD Consulting: Roxy Goodwin MD Transitions of Care Critical Issues: SPECIALIST FOLLOW-UP: Neurosurgery LABS AND PROCEDURES PENDING AT DISCHARGE: No pending results. FOLLOW-UP APPO (more content not included)... Normal [facility] Magnesium SerPl-mCncon 05-13 Magnesium [Mass/Vol] 2.0 mg/dL Normal 1.7-2.3 [facility] Comment on above: Order Comment: Speci men Type: BLOOD SPECIMEN Performed By: #### 1 9123-9, 2777-1, 75340-1 ####[facility]ORYCLIA [id number] [address] Phosphate SerPl-ncon 05-13 Phosphate [Mass/Vol] 3.6 mg/dL Normal 2.7-4.8 [facility] Comment on above: Order Comment: Speci men Type: BLOOD SPECIMEN Performed By: #### 1 9123-9, 2777-1, 93000-6 ####[facility]ORYCLIA [id number] [address] THERAPY NTon 05-13-2021 THERAPY NT HNO ID: [id number] Author: Lily Johnson [facility]-NURSE STAFF INDUSTRIAL Service: Speech/Swallow Author Type: Speech Language Pathologist Type: Therapy (PT/OT/Speech/Resp) Filed: 05/13/2021 9:26 AM Note Text: Speech Therapy Speech Evaluation SERVICE DATE: 05/13/2021 SERVICE TIME: 902 to 18 ROOM: [place] [address] IMPRESSION: Functional communication without limitations in: Speech,Language,Cognit ion Recommended Discharge Disposition: No further skilled speech therapy services anticipated Current Hospital Course: 05/12 CT Brain: stable appearance of parafalcine and right convexity subdural hematoma, scattered SAH stable Reason for Hospital Admission: s/p fall Rehabilitation Precautions: None Reason for Speech Therapy Consult: SDH, SAH Relevant Past Medical History: GERD, anxiety, DM Response to Therapy Interventions: Good Participation in activities Patient Report: I have a test for you Current Status Oral Hygiene: Clear, moist oral cavity Dentition: Retains Natural Dentition Current Feeding Method: Oral Current Diet Textures: Regular Consistency,Thin Liquids IDDSI Level 0 Current Level Of Communication: Verbal Current Management Of Secretions: Able to expectorate adequately Oral Motor Exam: Within Functional Limits Speech/Cognition/Langu age Speech Production: Within Functional Limits Expressive and Receptive Language: Within Functional Limits Cognition Cognitive Status: Within Functional Limits For Current Session The Cognitive Log (Cog-Log) is designed to be a quick quantitative measure of cognition status for use at the bedside with rehabilitation inpatients. It is intended for individuals who have achieved consistent accurate orientation, such as measured by the Orientation Log (O-Log). The Cog-Log can be used to document cognitive progress on a daily basis. All items are scored from 0 to 3 for a total possible score of 30. 3 = correct spontaneous response 2 = correct upon logical cueing (e.g., That was yesterday, so today must be...) 1 = correct upon multiple choice or phonemic cueing 0 = incorrect despite cueing, inappropriate response, or unable to respond Stimulus Response/Score Date 09/07 Time 09/07 Name of Hospital 09/07 Repeat Address 09/07 20-1 09/07 Months Reversed 09/07 30 Seconds 08/10 Owzm-Pfya-Kxzv 09/07 Go/No-Go 09/07 Address Recall 08/10 Total Functional Communication Measure (FCM) Current FCM Level: Memory;Problem Solving;Attention FCM Attention Level: 7 FCM Memory Level: 7 FCM Problem Solving Level: 7 Patient /Caregiver Goals: Go Home PLAN: ST Frequency: Discontinue therapy services Reasons Inpatient Therapy Services Discontinued: No skilled needs Plan of Care Developed with: Patient Results and Recommendations Discussed With: Patient TREATMENT INTERVENTIONS: Therapy Diagnosis: No Skilled Need Interventions Provided: Speech Language Eval (08597) $ Speech Language Eval (72043) Billed Units: 1 unit Training and education provided in: (Discharge) The following therapeutic skills were used:: Discharge planning,Education on role of discipline / importance of activity Skilled Treatment Time (minutes): 15 Home Environment Prior Functional Level: Within Functional Limits Patient Lives With: Self/Alone Prior Swallowing Function/Diet Textures: Regular Consistency;Thin Liquids IDDSI Level 0 Please see discipline specific clinical documentation flowsheet for complete details for this therapy evaluation/treatment. SIGNATURE: Lily Johnson CCC-NURSE STAFF INDUSTRIAL PATIENT NAME: Sheree Chavez DATE: May 13, 2021 TIME: 9:25 AM [facility] H[facility] [id number] Author: RT Michael(R) Service: Radiology Author Type: Senior Outside Sales Representative Type: Allied Health Filed: 05/12/2021 2:08 PM Note Text: Radiology Service Progress Note PATIENT NAME: Sheree Chavez DATE OF SERVICE: May 12, 2021 TIME: 2:08 PM PATIENT IDENTITY VERIFICATION COMPLETED USING TWO (2) IDENTIFIERS: Name and Date of confirmed by patient verbally and Name and Date of confirmed by identification band. FALL SCREENING: Has the patient had 2 falls in the last year or 1 fall with injury or currently using an Ambulatory Assistive Device (Walker, Cane, Wheelchair, Crutches, etc.)? Emergency Room Patient: Screened in ED PATIENT GENDER DATA: Female. status: : No status: NO. PATIENT RELEVANT IMPLANT DATA REVIEWED: Not Applicable RADIOLOGY DEPARTMENT: CT; Exam(s) Completed: Spine PERIPHERAL IV DATA: Not applicable SIGNED BY: RT Michael(R) May 12, 2021 2:08 PM Normal [facility] HNO ID: [id number] Author: RT Melab(R) Service: Radiology Author Type: Technologist Type: Allied Health Filed: 05/12/2021 12:21 PM Note Text: Radiology Service Progress Note PATIENT NAME: Sheree Chavez DATE OF SERVICE: May 12, 2021 TIME: 12:20 PM PATIENT IDENTITY VERIFICATION COMPLETED USING TWO (2) IDENTIFIERS: Name and Date of confirmed by patient verbally. FALL SCREENING: Has the patient had 2 falls in the last year or 1 fall with injury or currently using an Ambulatory Assistive Device (Walker, Cane, Wheelchair, Crutches, etc.)? Emergency Room Patient: Screened in ED PATIENT GENDER DATA: Female. status: : No status: NO. PATIENT RELEVANT IMPLANT DATA REVIEWED: Not Applicable RADIOLOGY DEPARTMENT: General X-ray: Exam(s) Completed: Spine X-Ray(s): Cervical / FLEX-EXT PERIPHERAL IV DATA: Not applicable SIGNED BY: RT Jenn(R) May 12, 2021 12:20 PM Normal [facility] Basic metabolic 2000 panelon 05-12-2021 Anion gap [Moles/Vol] 11 mmol/L Normal 9-18 [facility] Comment on above: Order Comment: Speci men Type: BLOOD SPECIMEN Performed By: #### 1 9123-9, 01268-1, 2776- ####[facility]ORYCLIA [id number] [address] STATES OF [facility] Calcium [Mass/Vol] 8.5 mg/dL Normal 8.5-10.2 [facility] Comment on above: Order Comment: Speci men Type: BLOOD SPECIMEN Performed By: #### 1 9122-9, 45286-1, 2776- ####[facility]ORYCLIA [id number] [address] [place] Chloride [Moles/Vol] 104 mmol/L Normal 97-105 [facility] Comment on above: Order Comment: Speci men Type: BLOOD SPECIMEN Performed By: #### 1 23-9, 53358-9, 2776- ####[facility]ORYCLIA [id number] [address] [place] CO2 [Moles/Vol] 24 mmol/L Normal 22-30 [facility] Comment on above: Order Comment: Speci men Type: BLOOD SPECIMEN Performed By: #### 1 23-9, 30280-3, 2776- ####[facility]ATORYCLIA [id number] [place] [address] [place] Creatinine [Mass/Vol] 0.70 mg/dL Normal 0.58-0.96 [facility] Comment on above: Order Comment: Speci men Type: BLOOD SPECIMEN Performed By: #### 1 9123-9, 36688-6, 2776- ####[facility]ATORYCLIA [id number] [place] [address] [place] GFR/1.73 sq M.predicted MDRD (S/P/Bld) [Vol rate/Area] mL/min/{1.73_m2} Normal [facility] Comment on above: Order Comment: Speci men Type: BLOOD SPECIMEN Result Comment: >60 eGFR (Estimated GFR) Units of measure: mL/min/1.73 meters squared eGFR is derived from the reexpressed MDRD Study equation using the following parameters: serum creatinine, age, gender and race. The creatinine assay has been calibrated to be traceable to IDMS. An eGFR <60 mL/min/1.73m2 for >3 months is consistent with chronic kidney disease. Refer to KDOQI guidelines for clinical interpretation. In patients with unstable renal function, e.g. those with acute kidney injury, the eGFR may not accurately reflect actual GFR. Performed By: #### 1 9123-9, 40318-7, 2776- ####[facility]ATORYCLIA [id number] [place] [address] [place] Glucose [Mass/Vol] 146 mg/dL High 74-99 [facility] Comment on above: Order Comment: Speci men Type: BLOOD SPECIMEN Result Comment: The [place] Diabetes Association (ADA) provides guidance for cutoff values for fasting glucose and random glucose. The ADA defines fasting as no caloric intake for at least 8 hours. Fasting plasma glucose results between 100 to 125 mg/dL indicate increased risk for diabetes (prediabetes). Fasting plasma glucose results greater than or equal to 126 mg/dL meet the criteria for diagnosis of diabetes. In the absence of unequivocal hyperglycemia, results should be confirmed by repeat testing. In a patient with classic symptoms of hyperglycemia or hyperglycemic crisis, random plasma glucose results greater than or equal to 200 mg/dL meet the criteria for diagnosis of diabetes. Reference: Standards of Medical Care in Diabetes 2016, [place] [employer] Association. Diabetes Care. 2016.39(Suppl 1). Performed By: #### 1 9123-9, 00006-2, 2776-07 ####[facility]ATORYCLIA [id number] [place] [id number] [place] Potassium [Moles/Vol] 3.8 mmol/L Normal 3.7-5.1 [facility] Comment on above: Order Comment: Speci men Type: BLOOD SPECIMEN Performed By: #### 1 9123-9, 00850-8, 2776- ####[facility]ATORYCLIA [id number] [address] Sodium [Moles/Vol] 139 mmol/L Normal 136-144 [facility] Comment on above: Order Comment: Speci men Type: BLOOD SPECIMEN Performed By: #### 1 9123-9, 77557-1, 2776- ####[facility]ATORYCLIA [id number] [address] Urea nitrogen [Mass/Vol] 9 mg/dL Normal 7-21 [facility] Comment on above: Order Comment: Speci men Type: BLOOD SPECIMEN Performed By: #### 1 9123-9, 65827-4, 2776-07 ####[facility]ORYCLIA [id number] [address] CALCIUM IONIZED Bon 05-12-20 Calcium.ionized (BldV) [Mass/Vol] 1.12 mmol/L Normal 1.08-1.30 [facility] Comment on above: Order Comment: Speci men Type: BLOOD SPECIMEN Performed By: #### I CA ####[facility]ORYCLIA [id number] [address] Calcium.ionized adjusted to pH 7.4 (Bld) [Moles/Vol] 1.10 mmol/L Normal 1.08-1.30 [facility] Comment on above: Order Comment: Speci men Type: BLOOD SPECIMEN Performed By: #### I CA ####[facility]ORYCLIA [id number] [address] CBC panel Auto (Bld)on 05-12 Erythrocyte distribution width (RBC) [Ratio] 12.0 % Normal 11.5-15.0 [facility] Comment on above: Order Comment: Speci men Type: BLOOD SPECIMEN Performed By: #### 5 8410-2 ####[facility]ORYCLIA [id number] [address] Hematocrit (Bld) [Volume fraction] 38.2 % Normal 36.0-46.0 [facility] Comment on above: Order Comment: Speci men Type: BLOOD SPECIMEN Performed By: #### 5 8410-2 ####[facility]ORYCLIA [id number] [address] Hemoglobin (Bld) [Mass/Vol] 12.4 g/dL Normal 11.5-15.5 [facility] Comment on above: Order Comment: Speci men Type: BLOOD SPECIMEN Performed By: #### 5 8410-2 ####[facility]ORYCLIA [id number] [address] MCH (RBC) [Entitic mass] 30.7 pg Normal 26.0-34.0 [facility] Comment on above: Order Comment: Speci men Type: BLOOD SPECIMEN Performed By: #### 5 8410-2 ####[facility]ORYCLIA [id number] [address] MCHC (RBC) [Mass/Vol] 32.5 g/dL Normal 30.5-36.0 [facility] Comment on above: Order Comment: Speci men Type: BLOOD SPECIMEN Performed By: #### 5 8410-2 ####[facility]ORYCLIA [id number] [address] MCV (RBC) [Entitic vol] 94.6 fL Normal 80.0-100.0 [facility] Comment on above: Order Comment: Speci men Type: BLOOD SPECIMEN Performed By: #### 5 8410-2 ####[facility]ORYCLIA [id number] [address] Nucleated RBC (Bld) [#/Vol] 10*3/uL Normal <0.01 [facility] Comment on above: Order Comment: Speci men Type: BLOOD SPECIMEN Performed By: #### 5 8410-2 ####[facility]ORYCLIA [id number] [address] Platelet mean volume (Bld) [Entitic vol] 8.8 fL Low 9.0-12.7 [facility] Comment on above: Order Comment: Speci men Type: BLOOD SPECIMEN Performed By: #### 5 8410-2 ####[facility]ORYCLIA [id number] [address] OF [facility] Platelets (Bld) [#/Vol] 273 10*3/uL Normal 150-400 [facility] Comment on above: Order Comment: Speci men Type: BLOOD SPECIMEN Performed By: #### 5 8410-2 ####[facility]ORYCLIA [id number] [address] RBC (Bld) [#/Vol] 4.04 10*6/uL Normal 3.90-5.20 [facility] Comment on above: Order Comment: Speci men Type: BLOOD SPECIMEN Performed By: #### 5 8410-2 ####[facility]ORYCLIA [id number] [address] WBC (Bld) [#/Vol] 10.12 10*3/uL Normal 3.70-11.00 [facility] Comment on above: Order Comment: Speci men Type: BLOOD SPECIMEN Performed By: #### 5 8410-2 ####[facility]ORYCLIA [id number] [address] BRAIN WO IVCONon 05-12-[address] BRAIN WO IVCON * * *Final Report* * * DATE OF EXAM: May 12 2021 6:35AM [facility] 0504 - CT BRAIN WO IVCON / PROCEDURE REASON: Intracranial hemorrhage * * * * Physician Interpretation * * * * EXAMINATION: CT BRAIN WO IVCON CLINICAL HISTORY: Intracranial hemorrhage, follow-up TECHNIQUE: Serial axial images without IV contrast were obtained from the vertex to the foramen magnum. MQ: [id number]_3 CT Radiation dose: Integrated Dose-Length Product (DLP) for this visit = 741 mGy*cm CT Dose Reduction Employed: Iterative recon COMPARISON: 05/11/2021 RESULT: Retail Field Representative (topogram) images: Post-operative change: None. Acute change: No evidence of an acute infarct or other acute parenchymal process. Hemorrhage: Stable subdural hemorrhage is present along the falx and a small amount of subdural hemorrhage overlying the right frontal parietal convexity. There is also a small amount of subdural hemorrhage along the right tentorial leaflet, unchanged. Small amount of subarachnoid hemorrhage bilaterally in the frontal region and right temporal region, unchanged. No evidence of new hemorrhage is identified. ECASS hemorrhagic transformation score: Not Applicable Mass Lesion / Mass Effect: There is no evidence of an intracranial mass or extraaxial fluid collection. No significant mass effect. Chronic change: None apparent. Parenchyma: There is no significant volume loss. The brain parenchyma is otherwise within normal limits for age. Ventricles: The ventricles are within normal limits of size and configuration for age. Paranasal sinuses and skull base: The visualized paranasal sinuses are grossly clear. Right parietal scalp contusion is unchanged. IMPRESSION: Stable appearance of parafalcine and right convexity subdural hematoma. Scattered subarachnoid hemorrhage is also stable. No evidence of new intracranial hemorrhage is identified. Is Project Manager: YUMI Transcribe Date/Time: May 12 2021 6:46A Dictated by : LIONEL LARSON MD This examination was interpreted and the report reviewed and electronically signed by: LIONEL LARSON MD on May 12 2021 6:51AM EST [id number] Normal [facility] CT LUMBAR SPINE WO IVCONon 1 07-12-2020 CT LUMBAR SPINE WO IVCON * * *Final Report* * * DATE OF EXAM: May 12 2021 1:58PM [facility] 0508 - CT LUMBAR SPINE WO IVCON / PROCEDURE REASON: Back pain, minor trauma * * * * Physician Interpretation * * * * EXAMINATION: CT LUMBAR SPINE WO IVCON CLINICAL HISTORY: Back pain, minor trauma TECHNIQUE: Spiral, high resolution axial unenhanced images were obtained from the thoracolumbar junction to the sacrum with sagittal and coronal planar reconstructions. MQ: [id number] CT Radiation dose: Integrated Dose-Length Product (DLP) for this visit = 938 mGy*cm. CT Dose Reduction Employed: Automated exposure control(AEC) and iterative recon COMPARISON: None. RESULT: Counting reference: Lumbosacral junction. For the purposes of this report, L4-5 level is at the level iliac crests Retail Field Representative (topogram) images: Moderate degree of arterial calcification aorta and its branches Alignment: 3 mm degenerative anterolisthesis L4-5 level Bone marrow /fracture: No evidence of a lytic or blastic process in the visualized spine. No evidence of acute or chronic fracture. Paraspinal soft tissues: The paraspinal soft tissues planes are maintained. No perivertebral space are present vertebral space hemorrhage T12-L1: No central or foraminal spinal stenosis. No disc abnormalities L1-L2: No central or foraminal spinal stenosis. No disc abnormalities L2-L3: No significant central canal stenosis. Mild degree of degenerative narrowing the left neural foramen secondary to left lateral disc bulge axial image 99 L3-L4: Mild degree of degenerative central canal and bilateral foraminal stenosis secondary disc osteophyte complex and posterior hypertrophic changes L4-L5: Moderate degree degenerative central canal stenosis secondary to facet arthropathy, ligamentum flavum hypertrophy, broad-based disc bulging and 3 mm degenerative anterolisthesis. Coexisting moderate degree of bilateral foraminal stenosis L5-S1: Disc osteophyte complex contributes to mild central canal stenosis eccentric towards left side as well as moderate degree degenerative left foraminal stenosis and mild right foraminal stenosis Sacrum and iliac wings: The visualized sacrum and iliac wings are within normal limits. IMPRESSION: 1. No CT evidence of acute or subacute fracture of the lumbosacral spine 2. L4-L5: Moderate degree degenerative central canal stenosis secondary to facet arthropathy, ligamentum flavum hypertrophy, broad-based disc bulging and 3 mm degenerative anterolisthesis. Coexisting moderate degree of bilateral foraminal stenosis Is Project Manager: [facility] Transcribe Date/Time: May 12 2021 2:14P Dictated by : MARIA G GRAHAM MD This examination was interpreted and the report reviewed and electronically signed by: MARIA G GRAHAM MD on May 12 2021 2:28PM EST [id number] Normal [facility] CT PELVIS ORTHO WO IVCONon 1 07-12-2020 CT PELVIS ORTHO WO IVCON * * *Final Report* * * DATE OF EXAM: May 12 2021 5:49AM [facility] [id number] - CT PELVIS ORTHO WO IVCON / PROCEDURE REASON: Fracture, hip * * * * Physician Interpretation * * * * EXAM TITLE: CT PELVIS ORTHO WO IVCON DATE: 05/12/2021 COMPARISON: Radiographs dated 05/11/2021 CLINICAL INDICATION/HISTORY: Status post fall, right hip pain TECHNIQUE: CT examination of the osseous pelvis performed as per routine protocol including sagittal and coronal reconstruction images. CT Radiation dose: Integrated Dose-length product (DLP) for this visit = 459 mGy*cm. CT Dose Reduction Employed: Automated exposure control(AEC) and iterative recon FINDINGS: No acute bony abnormality is identified. There is no fracture throughout the bony pelvis. No dislocation or bone destruction. There is mild superior joint space narrowing at each hip with femoral head osteophytosis. There are findings of bilateral CAM femoral acetabular impingement, more pronounced on the right than the left. No femoral head AVN. Normal sacroiliac joints. Muscle symmetry is maintained throughout the pelvis. No significant surrounding fat stranding. No lymphadenopathy or free fluid. There is sigmoid colon diverticulosis without diverticulitis. IMPRESSION: 1. No acute bony abnormality is identified. If the patient's symptoms persist, consider further evaluation with MRI which is more sensitive to the detection of subtle nondisplaced fractures. 2. 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 Is Project Manager: [employer] Transcribe Date/Time: May 12 2021 7:21A Dictated by : YANA KEENE MD This examination was interpreted and the report reviewed and electronically signed by: YANA KEENE MD on May 12 2021 7:33AM EST [id number] Normal [facility] ED NOTEon 05-12-2021 ED NOTE HNO ID: [id number] Author: Harjit Cosme Service: Emergency Medicine Author Type: Senior Outside Sales Representative Type: ED Notes Filed: 05/12/2021 12:41 PM Note Text: [id number]. Rn informed [facility] ED NOTE HNO ID: [id number] Author: Leah Roach RN Service: Emergency Medicine Author Type: Registered Nurse Type: ED Notes Filed: 05/12/2021 6:53 AM Note Text: Trauma team at bedside for update and reassessment of patient. Per team, general surgery and ortho, patient should be able to go to floor other than ICU. Pt will continue to be NPO until recent scans are back and reeval completed. [facility] ED NOTE HNO ID: [id number] Author: Leah Roach RN Service: Emergency Medicine Author Type: Registered Nurse Type: ED Notes Filed: 05/12/2021 4:13 AM Note Text: Pt up with one assist to bedside commode. Pt denies any pain. Pt alert and oriented, no neuro deficits noted. [facility] ED PROV NOTEon 05-12-2021 ED PROV NOTE HNO ID: [id number] Author: Amalia Mathias MD Service: Emergency Medicine Author Type: Physician Type: ED Provider Notes Filed: 05/11/2021 10:49 PM Note Text: Brief HPI: Sheree Chavez is a 75 year old female with a PMH as documented below who presents for evaluation as a trauma transfer. The patient was on a step stool. She states around 9 AM this morning, she lost her balance fell hit her head. She was seen at an outside hospital which she had a CT head of the head was found to have subdural and subarachnoid. She was also found to have a possible right hip fracture. She was transferred to our facility for further work-up and management. The patient denies complaints with exception of mild headache as well as right hip pain. She denies any chest or abdominal pain. GCS of 15 and answering all questions appropriately. She was stable in route per EMS. She is not on blood thinners. PAST MEDICAL HISTORY Diagnosis Date - Absence of menstruation - Anxiety state, unspecified - Benign neoplasm of colon - Diverticulosis of colon (without mention of hemorrhage) - Esophageal reflux - Essential hypertension, benign - Internal hemorrhoids without mention of complication - Mental disorder - Obesity, unspecified - Other and unspecified hyperlipidemia - Type II or unspecified type diabetes mellitus without mention of complication, not stated as uncontrolled Constitutional: nontoxic, well-appearing, not in any distress. HEENT: Pupils are PERRL. Neck: No C-spine tenderness or step-offs. Paraspinal tenderness to the right. Cardiovascular: Heart regular rate and rhythm. Pulses intact ?4 extremities. Pulmonary: Lungs clear to auscultation bilaterally without wheezes, rhonchi, or rales. Abdomen: soft, nontender, nondistended Muscle skeletal: Pelvis stable nontender. She has tenderness throughout the right hip. Skin: Warm and dry. MDM: 75-year-old female presenting as a trauma transfer. She has a head bleed as well as possible right hip fracture. Patient called as a category two trauma. Trauma team in the ED upon since arrival. GCS of 15. The patient did not have a CT of the cervical spine thus that was obtained. Head CT also repeated. Neurosurgery consulted. Patient admitted to the trauma team SICU for further management. See resident/PA note for disposition details Amalia Mathias MD 05/11/21 [id number] Normal [facility] Magnesium SerPl-mCncon 05-12 Magnesium [Mass/Vol] 1.6 mg/dL Low 1.7-2.3 [facility] Comment on above: Order Comment: Speci men Type: BLOOD SPECIMEN Performed By: #### 1 9123-9, 23965-6, 2777-1 ####[facility] [id number] [place] Phosphate SerPl-mCncon 05-12 Phosphate [Mass/Vol] 3.9 mg/dL Normal 2.7-4.8 [facility] Comment on above: Order Comment: Speci men Type: BLOOD SPECIMEN Performed By: #### 1 9123-9, 87464-6, 2777- ####[facility]IA [id number] [place] [address] [place] SARS-CoV-2 RNA Resp Ql EULALIA+p robeon 05-12-2021 SARS-CoV-2 (COVID-19) RNA EULALIA+probe Ql (Resp) COVID 19 RESULT: SARS-CoV-2 (Agent of COVID-19) Not Detected by PCR. This test has been authorized by FDA under an Emergency Use Authorization (EUA). [facility] Comment on above: Performed By: #### 9 4500-6 ####[facility] [id number] [place] [address] [place] STAPH AUREUS PCRon S. aureus and MRSA panel EULALIA+probe (Nose) Normal Negative [facility] Comment on above: Order Comment: Speci men Type: SWAB OF INTERNAL NOSE Result Comment: Nega tive for Staphylococcus aureus by PCR. Negative for MRSA by PCR Performed By: #### S APCR ####[facility] [id number] [address] TOX SCREEN ROUT URon 021 Amphetamines Confirm (U) [Mass/Vol] Negative Normal Negative [facility] Comment on above: Order Comment: Speci men Type: URINE SPECIMEN Result Comment: Cuto ff threshold at 1000 ng/mL. Performed By: #### U TOX2 ####[facility] [id number] [address] BARBITURATES, URINE Negative Normal Negative [facility] Comment on above: Order Comment: Speci men Type: URINE SPECIMEN Result Comment: Cuto ff threshold at 200 ng/mL. Performed By: #### U TOX2 ####[facility] [id number] [address] BENZODIAZEPINES, UR Negative Normal Negative [facility] Comment on above: Order Comment: Speci men Type: URINE SPECIMEN Result Comment: Cuto ff threshold at 200 ng/mL. Performed By: #### U TOX2 ####[facility] [id number] [address] CANNABINOIDS,URINE Negative Normal Negative [facility] Comment on above: Order Comment: Speci men Type: URINE SPECIMEN Result Comment: Cuto ff threshold at 50 ng/mL. Performed By: #### U TOX2 ####[facility] [id number] [address] Cocaine Ql (U) Negative Normal Negative [facility] Comment on above: Order Comment: Speci men Type: URINE SPECIMEN Result Comment: Cuto ff threshold at 300 ng/mL. Performed By: #### U TOX2 ####[facility] [id number] [address] OF [facility] Ethanol (U) [Mass/Vol] <11 Normal <11 [facility] Comment on above: Order Comment: Speci men Type: URINE SPECIMEN Performed By: #### U TOX2 ####[facility] [id number] [address] Opiates Screen Ql (U) Negative Normal Negative [facility] Comment on above: Order Comment: Speci men Type: URINE SPECIMEN Result Comment: Cuto ff threshold at 300 ng/mL. Performed By: #### U TOX2 ####[facility] [id number] [address] oxyCODONE cutoff Screen (U) [Mass/Vol] Negative Normal Negative [facility] Comment on above: Order Comment: Speci men Type: URINE SPECIMEN Result Comment: Cuto ff threshold at 100 ng/mL. Performed By: #### U TOX2 ####[facility] [id number] [address] Phencyclidine Ql (U) Negative Normal Negative [facility] Comment on above: Order Comment: Speci men Type: URINE SPECIMEN Result Comment: Cuto ff threshold at 25 ng/mL. Performed By: #### U TOX2 ####[facility] [id number] [address] XR CERVICAL 2V FLEX/EXTon XR CERVICAL 2V FLEX/EXT * * *Final Report* * * DATE OF EXAM: May 12 2021 12:22PM [facility] [id number] - XR CERVICAL 2V FLEX/EXT / PROCEDURE REASON: Neck pain, initial exam * * * * Physician Interpretation * * * * EXAM TITLE: XR CERVICAL 2V FLEX/EXT DATE: 05/12/2021 INDICATION: Neck pain. Patient had recent fall. COMPARISON: None. Flexion and extension lateral views of the cervical spine show normal bony alignment. No abnormal subluxation with flexion and extension. Vertebral body heights are maintained. Prominent bony spurring is seen off the anterior inferior endplates of C3, C4, C5. Prevertebral soft tissues are normal. IMPRESSION: No acute findings. No abnormal subluxation with flexion and extension. Is Project Manager: [employer] Transcribe Date/Time: May 12 2021 3:07P Dictated by : FANNY CAMPOS MD This examination was interpreted and the report reviewed and electronically signed by: FANNY CAMPOS MD on May 12 2021 3:09PM EST [id number] [facility] ALLIED HEALTHon 05-11-2021 ALLIED HEALTH HNO ID: [id number] Author: Chaplain Genesis Service: Spiritual Care Author Type: Automotive Lube Technician Type: Allied Health Filed: 05/11/2021 3:43 PM Note Text: SPIRITUAL CARE PROGRESS NOTE SERVICE DATE: 05/11/2021 SERVICE TIME: 3:30pm Automotive Lube Technician responded to ED page; but no family was present To contact the Spiritual Care Department: Please call . SIGNATURE: Chaplain Genesis PATIENT NAME: Sheree Chavez DATE: May 11, 2021 TIME: 3:42 PM PAGER/CONTACT #: [phone] [facility] CBC panel Auto (Bld)on 05-11 Erythrocyte distribution width (RBC) [Ratio] 11.9 % Normal 11.5-15.0 [facility] Comment on above: Order Comment: Speci men Type: BLOOD SPECIMEN Performed By: #### 5 8410-2 ####[facility]IA [id number] [address] [place] [facility] Hematocrit (Bld) [Volume fraction] 42.2 % Normal 36.0-46.0 [facility] Comment on above: Order Comment: Speci men Type: BLOOD SPECIMEN Performed By: #### 5 8410-2 ####[facility]IA [id number] [address] [place] Hemoglobin (Bld) [Mass/Vol] 13.9 g/dL Normal 11.5-15.5 [facility] Comment on above: Order Comment: Speci men Type: BLOOD SPECIMEN Performed By: #### 5 8410-2 ####[facility]IA [id number] [address] [place] MCH (RBC) [Entitic mass] 30.8 pg Normal 26.0-34.0 [facility] Comment on above: Order Comment: Speci men Type: BLOOD SPECIMEN Performed By: #### 5 8410-2 ####[facility] [id number] [address] MCHC (RBC) [Mass/Vol] 32.9 g/dL Normal 30.5-36.0 [facility] Comment on above: Order Comment: Speci men Type: BLOOD SPECIMEN Performed By: #### 5 8410-2 ####[facility] [id number] [address] MCV (RBC) [Entitic vol] 93.6 fL Normal 80.0-100.0 [facility] Comment on above: Order Comment: Speci men Type: BLOOD SPECIMEN Performed By: #### 5 8410-2 ####[facility]ORYCLIA [id number] [address] Nucleated RBC (Bld) [#/Vol] 10*3/uL Normal <0.01 [facility] Comment on above: Order Comment: Speci men Type: BLOOD SPECIMEN Performed By: #### 5 8410-2 ####[facility]IA [id number] [address] Platelet mean volume (Bld) [Entitic vol] 8.9 fL Low 9.0-12.7 [facility] Comment on above: Order Comment: Speci men Type: BLOOD SPECIMEN Performed By: #### 5 8410-2 ####[facility]ORYCLIA [id number] [address] Platelets (Bld) [#/Vol] 317 10*3/uL Normal 150-400 [facility] Comment on above: Order Comment: Speci men Type: BLOOD SPECIMEN Performed By: #### 5 8410-2 ####[facility] [id number] [address] RBC (Bld) [#/Vol] 4.51 10*6/uL Normal 3.90-5.20 [facility] Comment on above: Order Comment: Speci men Type: BLOOD SPECIMEN Performed By: #### 5 8410-2 ####[facility] [id number] [address] OF [facility] WBC (Bld) [#/Vol] 13.23 10*3/uL High 3.70-11.00 [facility] Comment on above: Order Comment: Speci men Type: BLOOD SPECIMEN Performed By: #### 5 8410-2 ####[facility]ORYCLIA [id number] [address] CONSULTon 05-11-2021 CONSULT HNO ID: [id number] Author: Lane Flores MD Service: Orthopaedic Surgery Author Type: Physician Type: Consults Filed: 05/12/2021 11:54 AM Note Text: ORTHOPAEDIC SURGERY CONSULT Pt: SHEREE CHAVEZ Date of Consultation: 05/11/2021 Physician Consulted: Dr. Flores Reason for Consultation: R hip pain, concern for occult hip fracture HPI: 75 year old female presented to [facility] as a trauma transfer after sustaining a fall from step stol. Patient landed onto her right side. Does endorse head trauma. Denies LOC or anticoagulation use. She chiefly endorses right hip pain as well as head and neck pain. On initial CT imaging, patient was found to have subarachnoid and subdural hemorrhages. Imaging of AP pelvis demonstrating no signs of obvious fracture or acute injury. Patient denies prior right hit trauma. Denies numbness or tingling of right lower extremity. PAST MEDICAL HISTORY Diagnosis Date - Absence of menstruation - Anxiety state, unspecified - Benign neoplasm of colon - Diverticulosis of colon (without mention of hemorrhage) - Esophageal reflux - Essential hypertension, benign - Internal hemorrhoids without mention of complication - Mental disorder - Obesity, unspecified - Other and unspecified hyperlipidemia - Type II or unspecified type diabetes mellitus without mention of complication, not stated as uncontrolled PAST SURGICAL HISTORY Procedure Laterality Date - BX OF BREAST; INCISIONAL Bx of breast, incisional - COLONOS W/REM POLYP SNARE 01/21/08 - COLONOSCOP W/ OR W/O BRSH SPEC 02/21/15 Colonoscopy - DESTR LESION BENIGN/PREMAL 11/13/07 Partially avulsed SK left upper arm - PAST SURGICAL HISTORY OF RIGHT TRIGGER THUMB - PAST SURGICAL HISTORY OF 06/20 cataract revision; bilateral eyes - PAST SURGICAL HISTORY OF Bilateral 2014 Cataract surgery Allergies: Palm Oil, Accupril [Quinapril Hcl], Asa [Salicylates], Penicillins, Vicodin [Hydrocodone-Acetamino phen], Bees, Codeine, and Metformin Current Facility-Administered Medications Medication Dose Route Frequency - NaCl 0.9% iv flush bag 20 mL INTRAVENOUS PRN - levETIRAcetam iv piggyback 1,000 mg in NaCl (iso-osmotic) 100 mL (KEPPRA) 1,000 mg INTRAVENOUS BID Current Outpatient Medications Medication Sig - ALPRAZolam (XANAX) 0.5 mg tablet Take 1 tablet by mouth twice daily as needed for up to 90 days. - levothyroxine (SYNTHROID) 50 mcg tablet Take 1 tablet by mouth once daily. DOSE CHANGE. Take on empty stomach. For Thyroid - FLUoxetine (PROZAC) 10 mg capsule Take 1 capsule by mouth once daily. - glimepiride (AMARYL) 2 mg tablet Take 1 tablet by mouth once daily. - metFORMIN ER (GLUCOPHAGE XR) 500 mg 24 hr tablet TAKE 2 TABLETS BY MOUTH EVERY DAY WITH BREAKFAST - lisinopril (ZESTRIL) 20 mg tablet Take 1 tablet by mouth once daily. - atorvastatin (LIPITOR) 10 mg tablet Take 1 tablet by mouth once daily. - famotidine (PEPCID) 20 mg tablet Take 1 tablet by mouth at bedtime as needed. - fluticasone (FLONASE) 50 mcg/actuation nasal spray Use 2 Sprays in each nostril once daily. Rinse mouth after use. - COMPOUNDED PRESCRIPTION Cock-up wrist splint - loratadine (CLARITIN) 10 mg tablet Take 1 tablet by mouth once daily. - Cholecalciferol, Vitamin D3, 2,000 unit cap Take 1 tablet by mouth once daily. - Blood-Glucose Meter (FREESTYLE LITE METER) [facility] monitoring kit 1 Each. Freestyle LITE Meter Kit - Dx: 250.00 non-insulin - blood sugar diagnostic (FREESTYLE LITE STRIPS) Misc test strip Test blood sugar(s) 1X times daily. Dx: 250.00. Insulin: no - ACETAMINOPHEN 500 MG TAB as necessary FAMILY HISTORY Problem Relation Age of Onset - Cancer Father LIVER - Heart Father CABG - Heart Mother - Osteoporosis Mother - Diabetes Paternal Grandmother - Breast Cancer Maternal Aunt Negative for family history of bleeding and clotting disorders. Social History Tobacco Use - Smoking status: Current Every Day Smoker Packs/day: 0.25 Years: 30.00 Pack years: 7.50 Types: Cigarettes - Smokeless tobacco: Never Used - Tobacco comment: Smoking 3 cigarettes per day Vaping Use - Vaping Use: Never used Substance Use Topics - Alcohol use: Yes Comment: occasionally, 2 mixed drinks per month - Drug use: No ROS: 10 pt ROS neg except in HPI O: Vitals: BP 114/73 Pulse 75 Temp 37 ?C (98.6 ?F) Resp 19 SpO2 (!) 91% Physical exam: General: AANDO x 3; NAD. Cooperative throughout entire interview Right Lower Extremity: Skin is atraumatic. No ecchymoses or abrasions/ laceration over the lower extremity. There is tenderness to palpation over the lateral hip. No TTP about the groin. No pain with Log Roll. There is pain with axial loading of hip. Compartments of the thigh and leg are soft and compressible. The patient tolerates passive stretch of the digits. +DF/PF/EHL. SILT north/sa/sp/dp/t. DP/PT pulses 2+ Labs: BMP: Sodium 137 05/11/2021 Potassium 4.0 05/11/2021 (more content not included)... [facility] CONSULT HNO ID: [id number] Author: Bridgett Guerrero PA-C Service: Neurosurgery Author Type: Physician Plant Pathologist Type: Consults Filed: 05/11/2021 5:26 PM Note Text: Attestation signed by Darrick Pierre MD at 05/11/2021 6:01 PM I reviewed the evaluation and note by Bridgett Guerrero and agree with the recorded findings unless stated otherwise. I reviewed the CT scan which shows interhemispheric posterior falx subdural hematoma as well as subarachnoid hemorrhage bilaterally more on the right side and a surface hematoma in the right parietal lobe. None of these areas of hemorrhage require surgical intervention at this time. I recommended that the patient be admitted to in the intensive care unit for close observation and repeat scan in the morning. Darrick Pierre MD CONSULT: NEUROSURGERY SERVICE Patient Name: Sheree Chavez Date of : 1945 SERVICE DATE: 05/11/2021 SERVICE TIME: 5:00 PM REASON FOR CONSULT: SDH/contusion REQUESTING PHYSICIAN: trauma PRIMARY CARE PHYSICIAN: Deirdre Quiñones MD CHIEF COMPLAINT: headache, neck and right hip and knee pain HISTORY OF PRESENT ILLNESS : Mr. Chavez is a 75 year old female who was on a stool at home when she fell backwards off the stool and struck her head and right side on the floor. She did not lose consciousness. She lives alone so got herself up, made coffee and rested in her chair. She then started feeling light headed and called her daughter who then picked her up and brought her to OSH, then transferred to [facility]. She is currently awake and alert and c/o pain to the back of her head (cephalohematoma), right sided neck pain, right hip and right knee pain. She denies dizziness, n/v, hx seizures, paresthesias or weakness. She adamantly denies any blood thinning agents. PAST MEDICAL HISTORY Diagnosis Date - Absence of menstruation - Anxiety state, unspecified - Benign neoplasm of colon - Diverticulosis of colon (without mention of hemorrhage) - Esophageal reflux - Essential hypertension, benign - Internal hemorrhoids without mention of complication - Mental disorder - Obesity, unspecified - Other and unspecified hyperlipidemia - Type II or unspecified type diabetes mellitus without mention of complication, not stated as uncontrolled PAST SURGICAL HISTORY Procedure Laterality Date - BX OF BREAST; INCISIONAL Bx of breast, incisional - COLONOS W/REM POLYP SNARE 01/21/08 - COLONOSCOP W/ OR W/O BRSH SPEC 02/21/15 Colonoscopy - DESTR LESION BENIGN/PREMAL 11/13/07 Partially avulsed SK left upper arm - PAST SURGICAL HISTORY OF RIGHT TRIGGER THUMB - PAST SURGICAL HISTORY OF 06/20 cataract revision; bilateral eyes - PAST SURGICAL HISTORY OF Bilateral 2014 Cataract surgery FAMILY HISTORY Problem Relation Age of Onset - Cancer Father LIVER - Heart Father CABG - Heart Mother - Osteoporosis Mother - Diabetes Paternal Grandmother - Breast Cancer Maternal Aunt ALLERGIES Allergen Reactions - Palm Oil GI Upset - Accupril [Quinapril* Other: See Comments Pt unsure why this is listed. Not sure what allergy is - Asa [Salicylates] GI Upset - Penicillins Hives - Vicodin [Hydrocodon* GI Upset - Bees - Codeine Intolerance - Metformin GI Upset diarrhea higher dose Current Facility-Administered Medications Medication Dose Route Frequency Provider Last Rate Last Admin - NaCl 0.9% iv flush bag 20 mL INTRAVENOUS PRN Nicolas Donald MD - levETIRAcetam iv piggyback 1,000 mg in NaCl (iso-osmotic) 100 mL (KEPPRA) 1,000 mg INTRAVENOUS BID Nicolas Donald MD Current Outpatient Medications Medication Sig Dispense Refill - ALPRAZolam (XANAX) 0.5 mg tablet Take 1 tablet by mouth twice daily as needed for up to 90 days. 60 tablet 2 - levothyroxine (SYNTHROID) 50 mcg tablet Take 1 tablet by mouth once daily. DOSE CHANGE. Take on empty stomach. For Thyroid 90 tablet 3 - FLUoxetine (PROZAC) 10 mg capsule Take 1 capsule by mouth once daily. 90 capsule 3 - glimepiride (AMARYL) 2 mg tablet Take 1 tablet by mouth once daily. 90 tablet 3 - metFORMIN ER (GLUCOPHAGE XR) 500 mg 24 hr tablet TAKE 2 TABLETS BY MOUTH EVERY DAY WITH BREAKFAST 60 tablet 11 - lisinopril (ZESTRIL) 20 mg tablet Take 1 tablet by mouth once daily. 90 tablet 3 - atorvastatin (LIPITOR) 10 mg tablet Take 1 tablet by mouth once daily. 90 tablet 3 - famotidine (PEPCID) 20 mg tablet Take 1 tablet by mouth at bedtime as needed. - fluticasone (FLONASE) 50 mcg/actuation nasal spray Use 2 Sprays in each nostril once daily. Rinse mouth after use. 1 Bottle 5 - COMPOUNDED PRESCRIPTION Cock-up wrist splint 1 Each 0 - loratadine (CLARITIN) 10 mg tablet Take 1 tablet by mouth once daily. 20 tablet 0 - Cholecalciferol, Vitamin D3, 2,000 unit cap Take 1 tablet by mouth onc (more content not included)... Normal [facility] CONSULT HNO ID: [id number] Author: Nicolas Donald MD Service: General Surgery Author Type: Resident Type: Consults Filed: 05/11/2021 9:05 PM Note Text: Attestation signed by Roxy Goodwin MD at 05/12/2021 7:32 PM I personally saw and examined the patient on 05/11/2021. I reviewed the resident's note. I agree with the resident's assessment and plan unless otherwise noted. Surgical Intensive Care Unit Consult Note SERVICE DATE: 05/11/2021 SERVICE TIME: 4:30 PM REASON FOR CONSULT: Subdural hematoma/ICU management REQUESTING PHYSICIAN: Dr. Ocampo Subjective 75 year old female 75 year old female arrived as a trauma transfer. Patient had initial ground level fall. Patient reports falling onto their right side and reports pain in this region. Patient denies any previous injury or surgery in this area. Patient denies LOC, endorses head hit, and denies use of blood thinners. FUNCTIONAL STATUS: Independent PAST MEDICAL HISTORY Diagnosis Date - Absence of menstruation - Anxiety state, unspecified - Benign neoplasm of colon - Diverticulosis of colon (without mention of hemorrhage) - Esophageal reflux - Essential hypertension, benign - Internal hemorrhoids without mention of complication - Mental disorder - Obesity, unspecified - Other and unspecified hyperlipidemia - Type II or unspecified type diabetes mellitus without mention of complication, not stated as uncontrolled PAST SURGICAL HISTORY Procedure Laterality Date - BX OF BREAST; INCISIONAL Bx of breast, incisional - COLONOS W/REM POLYP SNARE 01/21/08 - COLONOSCOP W/ OR W/O BRSH SPEC 02/21/15 Colonoscopy - DESTR LESION BENIGN/PREMAL 11/13/07 Partially avulsed SK left upper arm - PAST SURGICAL HISTORY OF RIGHT TRIGGER THUMB - PAST SURGICAL HISTORY OF 06/20 cataract revision; bilateral eyes - PAST SURGICAL HISTORY OF Bilateral 2014 Cataract surgery FAMILY HISTORY Problem Relation Age of Onset - Cancer Father LIVER - Heart Father CABG - Heart Mother - Osteoporosis Mother - Diabetes Paternal Grandmother - Breast Cancer Maternal Aunt Social History Tobacco Use - Smoking status: Current Every Day Smoker Packs/day: 0.25 Years: 30.00 Pack years: 7.50 Types: Cigarettes - Smokeless tobacco: Never Used - Tobacco comment: Smoking 3 cigarettes per day Vaping Use - Vaping Use: Never used Substance Use Topics - Alcohol use: Yes Comment: occasionally, 2 mixed drinks per month - Drug use: No (Not in a hospital admission) Current Facility-Administered Medications Medication Dose Route Frequency - NaCl 0.9% iv flush bag 20 mL INTRAVENOUS PRN - levETIRAcetam iv piggyback 1,000 mg in NaCl (iso-osmotic) 100 mL (KEPPRA) 1,000 mg INTRAVENOUS BID Allergies As of Date: 05/11/2021 Allergen Noted Reaction PALM OIL 08/20/2018 GI Upset ACCUPRIL [QUINAPRIL HCL] 08/01/2006 Other: See Comments ASA [SALICYLATES] 04/20/2005 GI Upset PENICILLINS 04/20/2005 Hives VICODIN [HYDROCODONE-ACETAMINO PHE*04/20/2005 GI Upset BEES 09/07/2006 CODEINE 06/14/2005 Intolerance METFORMIN 08/23/2015 GI Upset Fully Assessed 05/11/2021 COMPLETE REVIEW OF SYSTEMS: GENERAL: No weight loss, malaise or fevers. HEENT: Negative for frequent or significant headaches, No changes in hearing or vision, no nose bleeds or other nasal problems. NECK: Negative for lumps, goiter, pain and significant neck swelling. RESPIRATORY: Negative for cough, hemoptysis, wheezing, COPD, dyspnea or shortness of breath. CARDIOVASCULAR: Negative for chest pain, leg swelling, hypertension, CHF or palpitations GI: No nausea, vomiting, or diarrhea. MUSCULOSKELETAL: Right hip pain. SKIN: Negative for lesions, rash, and itching. PSYCH: Negative for sleep disturbance, mood disorder and recent psychosocial stressors. NEURO: No history of headaches, syncope, paralysis, seizures or tremors. Objective PHYSICAL EXAM: BP 144/125 Pulse 72 Temp 98.6 Resp 25 SpO2 96[2 liters ]% GENERAL: Alert. No distress. Resting comfortably. NEURO: AANDOx3. No focal neurologic deficits. Sensation grossly intact. HEENT: Normocephalic. Atraumatic. EOMI. LUNGS: Unlabored breathing on RA. Equal excursion bilaterally. CARDIAC: Regular rate. Good perfusion throughout. ABDOMEN: Soft, non-tender, non-distended. No rebound or guarding. EXTREMITIES: Right hip pain SKIN: No obvious jaundice or pallor. DATA: Labs: Recent Labs 05/11/21 1535 NA 137 K 4.0 CHLOR 99 CO2 24 BUN 10 CREAT 0.73 GLUC 125* ANION 14 CA 9.5 ALB 4.4 AST 20 ALT 22 ALKPHOS 31* TBILI 0.3 WBC 13.23* HB 13.9 HCT 42.2 PLT 317 INR 1.0 Diagnostic tests reviewed for today's visit: Most recent labs and imaging results. Assessment and Plan: This is a 75 year old female with stable subdural (more content not included)... Normal [facility] CT BRAIN WO IVCONon 05-11-[address] BRAIN WO IVCON * * *Final Report* * * DATE OF EXAM: May 11 2021 3:47PM [facility] 0504 - CT BRAIN WO IVCON / PROCEDURE REASON: Head trauma, headache * * * * Physician Interpretation * * * * EXAMINATION: CT BRAIN WO IVCON, CT CERVICAL SPINE WO IVCON CLINICAL HISTORY: Trauma, head and neck pain TECHNIQUE: Serial axial unenhanced images were obtained from the vertex to the foramen magnum. Spiral, high resolution axial unenhanced images were obtained from the skull base to the cervicothoracic junction with sagittal and coronal planar reconstructions. MQ: CTBCSWO_3 Dose-Length Product (DLP): 1361 mGy*cm. CT Dose Reduction Employed: Automated exposure control (AEC) COMPARISON: Outside CT brain same day at 10:10 AM RESULT: BRAIN: Acute change: No evidence of an acute infarct Hemorrhage: Stable subdural hemorrhage along the falx. Stable small amount of subdural hemorrhage over the right frontoparietal convexity. Stable mild subarachnoid hemorrhage over bilateral parietal convexities. Mass lesion / Mass effect: There is no evidence of an intracranial mass . No significant mass effect. Chronic change: Scattered patchy foci of low attenuation are present within supratentorial white matter which is a nonspecific finding but likely represents mild microvascular ischemia. Parenchyma: There is mild generalized volume loss. The brain parenchyma is otherwise within normal limits for age. Ventricles: Ventricular enlargement concordant with the degree of parenchymal volume loss. Paranasal sinuses and skull base: The visualized paranasal sinuses are grossly clear. Right parietal scalp contusion. No fracture. CERVICAL: Counting reference: Craniocervical junction. Anatomic Variants: None. Alignment: Alignment is anatomic. Craniocervical junction: Craniocervical junction is normal. Osseous structures/fracture: No evidence of a lytic or blastic process in the visualized spine. No evidence of acute or chronic fracture. No cervical disc space narrowing. Cervical soft tissues: The paraspinal soft tissues planes are maintained. Degenerative changes: Disc osteophyte complex and ligament flavum with infolding with mild canal stenosis at C4-5, mild to moderate at C5-6 and C6-7. No significant bony foraminal stenosis Retail Field Representative (topogram) images: No additional findings. IMPRESSION: Stable bilateral subarachnoid and subdural hemorrhage. No new findings. No acute findings in the cervical spine. Degenerative changes. Anatomic Variant: None. Assume 7 cervical vertebrae with counting from the craniocervical junction. Is Project Manager: PSC[employer] Transcribe Date/Time: May 11 2021 4:06P Dictated by : CHRISSY CAMACHO MD This examination was interpreted and the report reviewed and electronically signed by: CHRISSY CAMACHO MD on May 11 2021 4:14PM EST [id number] Normal [facility] CT CERVICAL SPINE WO IVCONon 05-11-2021 CT CERVICAL SPINE WO IVCON * * *Final Report* * * DATE OF EXAM: May 11 2021 3:47PM [facility] 0505 - CT CERVICAL SPINE WO IVCON / PROCEDURE REASON: C-spine fx, traumatic * * * * Physician Interpretation * * * * EXAMINATION: CT BRAIN WO IVCON, CT CERVICAL SPINE WO IVCON CLINICAL HISTORY: Trauma, head and neck pain TECHNIQUE: Serial axial unenhanced images were obtained from the vertex to the foramen magnum. Spiral, high resolution axial unenhanced images were obtained from the skull base to the cervicothoracic junction with sagittal and coronal planar reconstructions. MQ: CTBCSWO_3 Dose-Length Product (DLP): 1361 mGy*cm. CT Dose Reduction Employed: Automated exposure control (AEC) COMPARISON: Outside CT brain same day at 10:10 AM RESULT: BRAIN: Acute change: No evidence of an acute infarct Hemorrhage: Stable subdural hemorrhage along the falx. Stable small amount of subdural hemorrhage over the right frontoparietal convexity. Stable mild subarachnoid hemorrhage over bilateral parietal convexities. Mass lesion / Mass effect: There is no evidence of an intracranial mass . No significant mass effect. Chronic change: Scattered patchy foci of low attenuation are present within supratentorial white matter which is a nonspecific finding but likely represents mild microvascular ischemia. Parenchyma: There is mild generalized volume loss. The brain parenchyma is otherwise within normal limits for age. Ventricles: Ventricular enlargement concordant with the degree of parenchymal volume loss. Paranasal sinuses and skull base: The visualized paranasal sinuses are grossly clear. Right parietal scalp contusion. No fracture. CERVICAL: Counting reference: Craniocervical junction. Anatomic Variants: None. Alignment: Alignment is anatomic. Craniocervical junction: Craniocervical junction is normal. Osseous structures/fracture: No evidence of a lytic or blastic process in the visualized spine. No evidence of acute or chronic fracture. No cervical disc space narrowing. Cervical soft tissues: The paraspinal soft tissues planes are maintained. Degenerative changes: Disc osteophyte complex and ligament flavum with infolding with mild canal stenosis at C4-5, mild to moderate at C5-6 and C6-7. No significant bony foraminal stenosis Retail Field Representative (topogram) images: No additional findings. IMPRESSION: Stable bilateral subarachnoid and subdural hemorrhage. No new findings. No acute findings in the cervical spine. Degenerative changes. Anatomic Variant: None. Assume 7 cervical vertebrae with counting from the craniocervical junction. Is Project Manager: YUMI Transcribe Date/Time: May 11 2021 4:06P Dictated by : CHRISSY CAMACHO MD This examination was interpreted and the report reviewed and electronically signed by: CHRISSY CAMACHO MD on May 11 2021 4:14PM EST [id number] Normal [facility] Comprehensive metabolic 2000 panelon 05-11-2021 Albumin [Mass/Vol] 4.4 g/dL Normal 3.9-4.9 [facility] Comment on above: Order Comment: Speci men Type: BLOOD SPECIMEN Performed By: #### 2 4323-8, 3040-3 ####[facility] [id number] [address] ALP [Catalytic activity/Vol] 31 U/L Low 34-123 [facility] Comment on above: Order Comment: Speci men Type: BLOOD SPECIMEN Performed By: #### 2 4323-8, 3040-3 ####[facility] [id number] [address] [place] [facility] ALT With P-5'-P [Catalytic activity/Vol] 22 U/L Normal 7-38 [facility] Comment on above: Order Comment: Speci men Type: BLOOD SPECIMEN Performed By: #### 2 4323-8, 3040-3 ####[facility] [id number] [place], [place] [id number] [place] [address] Anion gap [Moles/Vol] 14 mmol/L Normal 9-18 [facility] Comment on above: Order Comment: Speci men Type: BLOOD SPECIMEN Performed By: #### 2 4323-8, 3040-3 ####[facility] [id number] [address] [place] [facility] AST With P-5'-P [Catalytic activity/Vol] 20 U/L Normal 13-35 [facility] Comment on above: Order Comment: Speci men Type: BLOOD SPECIMEN Performed By: #### 2 4323-8, 3040-3 ####[facility] [id number] [address] Bilirubin [Mass/Vol] 0.3 mg/dL Normal 0.2-1.3 [facility] Comment on above: Order Comment: Speci men Type: BLOOD SPECIMEN Performed By: #### 2 4323-8, 3040-3 ####[facility] [id number] [address] STATES [facility] Calcium [Mass/Vol] 9.5 mg/dL Normal 8.5-10.2 [facility] Comment on above: Order Comment: Speci men Type: BLOOD SPECIMEN Performed By: #### 2 4323-8, 0-3 ####[facility] [id number] [address] [place] [facility] Chloride [Moles/Vol] 99 mmol/L Normal 97-105 [facility] Comment on above: Order Comment: Speci men Type: BLOOD SPECIMEN Performed By: #### 2 4323-8, 3039-3 ####[facility] [id number] [address] [place] CO2 [Moles/Vol] 24 mmol/L Normal 22-30 [facility] Comment on above: Order Comment: Speci men Type: BLOOD SPECIMEN Performed By: #### 2 4323-8, 0-3 ####[facility]ORY[facility] [id number] [address] [place] [facility] Creatinine [Mass/Vol] 0.73 mg/dL Normal 0.58-0.96 [facility] Comment on above: Order Comment: Speci men Type: BLOOD SPECIMEN Performed By: #### 2 4323-8, 0-3 ####[facility] [id number] [address] [place] GFR/1.73 sq M.predicted MDRD (S/P/Bld) [Vol rate/Area] mL/min/{1.73_m2} Normal [facility] Comment on above: Order Comment: Speci men Type: BLOOD SPECIMEN Result Comment: >60 eGFR (Estimated GFR) Units of measure: mL/min/1.73 meters squared eGFR is derived from the reexpressed MDRD Study equation using the following parameters: serum creatinine, age, gender and race. The creatinine assay has been calibrated to be traceable to IDMS. An eGFR <60 mL/min/1.73m2 for >3 months is consistent with chronic kidney disease. Refer to KDOQI guidelines for clinical interpretation. In patients with unstable renal function, e.g. those with acute kidney injury, the eGFR may not accurately reflect actual GFR. Performed By: #### 2 4323-8, 3039-3 ####[facility]ORYCLIA [id number] [place] [address] [place] Glucose [Mass/Vol] 125 mg/dL High 74-99 [facility] Comment on above: Order Comment: Speci men Type: BLOOD SPECIMEN Result Comment: The [place] Diabetes Association (ADA) provides guidance for cutoff values for fasting glucose and random glucose. The ADA defines fasting as no caloric intake for at least 8 hours. Fasting plasma glucose results between 100 to 125 mg/dL indicate increased risk for diabetes (prediabetes). Fasting plasma glucose results greater than or equal to 126 mg/dL meet the criteria for diagnosis of diabetes. In the absence of unequivocal hyperglycemia, results should be confirmed by repeat testing. In a patient with classic symptoms of hyperglycemia or hyperglycemic crisis, random plasma glucose results greater than or equal to 200 mg/dL meet the criteria for diagnosis of diabetes. Reference: Standards of Medical Care in Diabetes 2016, [place] [employer] Association. Diabetes Care. 2016.39(Suppl 1). Performed By: #### 2 4323-8, 3 ####[facility]ORYCLIA [id number] [place] [address] [place] Potassium [Moles/Vol] 4.0 mmol/L Normal 3.7-5.1 [facility] Comment on above: Order Comment: Speci men Type: BLOOD SPECIMEN Performed By: #### 2 4323-8, 3039-3 ####[facility]ORYCLIA [id number] [place] [address] [place] Protein [Mass/Vol] 7.5 g/dL Normal 6.3-8.0 [facility] Comment on above: Order Comment: Speci men Type: BLOOD SPECIMEN Performed By: #### 2 4323-8, 3040-3 ####[facility] [id number] [address] Sodium [Moles/Vol] 137 mmol/L Normal 136-144 [facility] Comment on above: Order Comment: Speci men Type: BLOOD SPECIMEN Performed By: #### 2 4323-8, 3040-3 ####[facility]ORYCLIA [id number] [address] Urea nitrogen [Mass/Vol] 10 mg/dL Normal 7-21 [facility] Comment on above: Order Comment: Speci men Type: BLOOD SPECIMEN Performed By: #### 2 4323-8, 3040-3 ####[facility]ORYCLIA [id number] [address] ED NOTEon 05-11-2021 ED NOTE HNO ID: [id number] Author: Jocelyn Austin Service: ? Author Type: Machine Operator Assistant and Senior Outside Sales Representative Type: ED Notes Filed: 05/11/2021 3:26 PM Note Text: Bed: [address] [place] [address] Expected date: Expected time: Means of arrival: [facility] Critical Care Ground Comments: [place] transfer trauma 2 Normal [facility] ED PROV NOTEon 05-11-2021 ED PROV NOTE HNO ID: [id number] Author: Eze James MD Service: Emergency Medicine Author Type: Resident Type: ED Provider Notes Filed: 05/15/2021 3:11 PM Note Text: Attestation signed by Amalia Mathias MD at 05/15/2021 4:51 PM Attending Note I evaluated the patient and personally participated in the estrada components. I agree with the resident's findings and plan as documented and have discussed the case and management of the patient's care with the resident. Signature: Amalia Mathias MD Date: 05/15/2021 Time: 4:51 PM ED Provider Note Patient Name: Sheree Chavez SERVICE DATE: 05/11/21 History No chief complaint on file. This is a 75-year-old female who presents as a trauma level 2 transfer from [place] for intracranial bleeding after mechanical fall. Patient fell from a stepstool backwards hitting her head on the ground. She was evaluated at [facility] and was found to have subarachnoid hemorrhage, subdural hematoma and several hemorrhagic contusions. She has sound of a possible fracture of her right hip. Patient is not on any blood thinners and did not lose consciousness. PAST MEDICAL HISTORY Diagnosis Date - Absence of menstruation - Anxiety state, unspecified - Benign neoplasm of colon - Diverticulosis of colon (without mention of hemorrhage) - Esophageal reflux - Essential hypertension, benign - Internal hemorrhoids without mention of complication - Mental disorder - Obesity, unspecified - Other and unspecified hyperlipidemia - Type II or unspecified type diabetes mellitus without mention of complication, not stated as uncontrolled PAST SURGICAL HISTORY Procedure Laterality Date - BX OF BREAST; INCISIONAL Bx of breast, incisional - COLONOS W/REM POLYP SNARE 01/21/08 - COLONOSCOP W/ OR W/O BRSH SPEC 02/21/15 Colonoscopy - DESTR LESION BENIGN/PREMAL 11/13/07 Partially avulsed SK left upper arm - PAST SURGICAL HISTORY OF RIGHT TRIGGER THUMB - PAST SURGICAL HISTORY OF 06/20 cataract revision; bilateral eyes - PAST SURGICAL HISTORY OF Bilateral 2015 Cataract surgery FAMILY HISTORY Problem Relation Age of Onset - Cancer Father LIVER - Heart Father CABG - Heart Mother - Osteoporosis Mother - Diabetes Paternal Grandmother - Breast Cancer Maternal Aunt Social History Tobacco Use - Smoking status: Current Every Day Smoker Packs/day: 0.25 Years: 30.00 Pack years: 7.50 Types: Cigarettes - Smokeless tobacco: Never Used - Tobacco comment: Smoking 3 cigarettes per day Vaping Use - Vaping Use: Never used Substance and Sexual Activity - Alcohol use: Yes Comment: occasionally, 2 mixed drinks per month - Drug use: No - Sexual activity: Not Currently Partners: Male ALLERGIES Allergen Reactions - Palm Oil GI Upset - Accupril [Quinapril* Other: See Comments Pt unsure why this is listed. Not sure what allergy is - Asa [Salicylates] GI Upset - Penicillins Hives - Vicodin [Hydrocodon* GI Upset - Bees - Codeine Intolerance - Metformin GI Upset diarrhea higher dose Review of Systems Unable to perform ROS: Acuity of condition Physical Exam Vitals BP Pulse Temp Temp src Resp SpO2 Weight Height 05/11/21 1532 05/11/21 1529 05/11/21 1533 -- 05/11/21 1529 05/11/21 1529 -- -- 118/60 79 37 ?C (98.6 ?F) 16 96 % Physical Exam Vitals and nursing note reviewed. Constitutional: General: She is not in acute distress. Appearance: Normal appearance. She is not ill-appearing. HENT: Head: Normocephalic and atraumatic. Comments: No external evidence of trauma to the head noted Right Ear: Tympanic membrane normal. Left Ear: Tympanic membrane normal. Ears: Comments: No hemotympanum bilaterally Nose: Nose normal. Comments: No nasal septal hematoma Mouth/Throat: Mouth: Mucous membranes are moist. Pharynx: No oropharyngeal exudate or posterior oropharyngeal erythema. Comments: No malocclusion. No obvious dental injuries or bleeding in the oropharynx Eyes: Extraocular Movements: Extraocular movements intact. Conjunctiva/sclera: Conjunctivae normal. Pupils: Pupils are equal, round, and reactive to light. Neck: Comments: C-collar placed on patient Cardiovascular: Rate and Rhythm: Normal rate and regular rhythm. Pulses: Normal pulses. Heart sounds: Normal heart sounds. No murmur heard. No friction rub. No gallop. Pulmonary: Effort: Pulmonary effort is normal. No respiratory distress. Breath sounds: Normal breath sounds. No wheezing. Chest: Chest wall: No tenderness. Abdominal: General: Abdomen is flat. Bowel sounds are normal. There is no distension. Palpations: Abdomen is soft. Tenderness: There is no abdominal tenderness. There is no guarding. Musculoskeletal: General: Tenderness (Tenderness to (more content not included)... Normal [facility] Ethanol SerPl-mCncon 021 Ethanol [Mass/Vol] mg/dL Normal <11 [facility] Comment on above: Order Comment: Speci men Type: BLOOD SPECIMEN Performed By: #### 5 643-2 ####[facility]ORY[facility]IA [id number] [address] [place] HISTORY PHYSICALon HISTORY PHYSICAL HNO ID: [id number] Author: Chacho Ocampo MD Service: General Surgery Author Type: Physician Type: HANDP Filed: 05/11/2021 10:31 PM Note Text: TRAUMA SURGERY HANDP [facility] ARRIVAL DATE: 05/11 ARRIVAL TIME: 3:25 CATEGORY: Level 2 INJURY DATE: 05/11 INJURY TIME: 10:00AM Subjective 75 year old female arrived as a trauma transfer. Patient had initial ground level fall. Patient reports falling onto their right side and reports pain in this region. Patient denies any previous injury or surgery in this area. Patient denies LOC, endorses head hit, and denies use of blood thinners. . GCS at Scene was 15. HPI/CHIEF COMPLAINT: Fall from Standing height BRIEF DESCRIPTION OF INJURIES: -Subdural hematoma within the cerebral falx, hemorrhagic contusion of the right temporal lobe and posterior medial aspect of the left parietal lobe, focal subarachnoid bleed -Possible right hip fracture LAST FLUIDS/MEAL: Breakfast CODE STATUS: Not discussed ALLERGIES Allergen Reactions - Palm Oil GI Upset - Accupril [Quinapril* Other: See Comments Pt unsure why this is listed. Not sure what allergy is - Asa [Salicylates] GI Upset - Penicillins Hives - Vicodin [Hydrocodon* GI Upset - Bees - Codeine Intolerance - Metformin GI Upset diarrhea higher dose (Not in a hospital admission) DATE OF LAST TETANUS: N/a Immunization History Administered Date(s) Administered COVID-19 vaccine, age 12+ yr ([facility]) 08/16/2020 09/07/2020 04/08/2021 H1N1 Influenza 05/17/2009 Influenza 04/07/2015 Influenza Seasonal - High Dose - Age 65+ 04/05/2018 03/31/2019 Influenza Seasonal Inj Age 3+ 05/13/2014 04/07/2015 04/20/2020 Influenza Seasonal Inj Quad Age 6 Mo - 64 Yrs 04/22/2017 Influenza Vaccine, Split-Non Spec 05/24/2006 06/27/2007 05/13/2008 05/13/2009 06/20/2010 04/08/2013 Pneumococcal-13 Vac Conjugate 11/10/2014 Pneumovax 06/20/2010 Tdap (Age 7+) 02/26/2007 Zostavax 03/08/2015 Zoster Recombinant (Shingrix) 03/25/2019 04/20/2020 PAST MEDICAL HISTORY Diagnosis Date - Absence of menstruation - Anxiety state, unspecified - Benign neoplasm of colon - Diverticulosis of colon (without mention of hemorrhage) - Esophageal reflux - Essential hypertension, benign - Internal hemorrhoids without mention of complication - Mental disorder - Obesity, unspecified - Other and unspecified hyperlipidemia - Type II or unspecified type diabetes mellitus without mention of complication, not stated as uncontrolled PAST SURGICAL HISTORY Procedure Laterality Date - BX OF BREAST; INCISIONAL Bx of breast, incisional - COLONOS W/REM POLYP SNARE 01/21/08 - COLONOSCOP W/ OR W/O BRSH SPEC 02/21/15 Colonoscopy - DESTR LESION BENIGN/PREMAL 11/13/07 Partially avulsed SK left upper arm - PAST SURGICAL HISTORY OF RIGHT TRIGGER THUMB - PAST SURGICAL HISTORY OF 06/20 cataract revision; bilateral eyes - PAST SURGICAL HISTORY OF Bilateral 2014 Cataract surgery Social History Tobacco Use - Smoking status: Current Every Day Smoker Packs/day: 0.25 Years: 30.00 Pack years: 7.50 Types: Cigarettes - Smokeless tobacco: Never Used - Tobacco comment: Smoking 3 cigarettes per day Vaping Use - Vaping Use: Never used Substance Use Topics - Alcohol use: Yes Comment: occasionally, 2 mixed drinks per month - Drug use: No FAMILY HISTORY Problem Relation Age of Onset - Cancer Father LIVER - Heart Father CABG - Heart Mother - Osteoporosis Mother - Diabetes Paternal Grandmother - Breast Cancer Maternal Aunt ROS: Is the patient having any pain? No 0 on a scale of 0 to 10 Constitutional: Negative Eye/Ear/Nose: Negative Respiratory: Negative Cardiovascular: Negative GI/Liver/Biliary: Negative Genitourinary: Negative Psychiatric: Negative Neurologic: Negative Musculoskeletal: Negative Integument: Negative Endocrine: Negative Heme/Lymph: Negative Objective PRIMARY SURVEY AIRWAY: Patent BREATHING: Breath sounds equal CIRCULATION: PT/DP Equal bilaterally , Radials equal bilaterally, Femoral equal bilaterally , Carotid equal bilaterall DISABILITY: Eye: 4=Spontaneous Verbal: 5=Oriented and Converses Motor: 6=Obeys Commands Total GCS: 15=4 Resp Rate: 10 to 29=4 Syst BP: > than 89=4 REVISED TRAUMA SCORE: 12 EXPOSE / ENVIRONMENT: Warm Blankets PROCEDURES: C-collar SECONDARY SURVEY VITALS: BP (!) 144/125 Pulse 72 Temp 37 ?C (98.6 ?F) Resp (!) 25 SpO2 96% NEURO: Alert AND Oriented x 3, GCS 15, Cranial Nerves II-XII Intact, Moves All Extremities, Strength Symmetrical HEENT: Head: No lacerations or abrasions, no bony step offs, midface stable to palpation, Eyes: PERRL, conjunctiva/corneas without lesions, EOM intact, Ears: Canals without blood or CSF drainage, TMs clear, external ears without lacerations NECK: No midline pain with palpation, Right sided tenderness RESPIRATORY: No abrasions or contusions, No crep (more content not included)... Normal [facility] Lipase SerPl-cCncon 05-11-20 21 Lipase [Catalytic activity/Vol] 36 U/L Normal 16-61 [facility] Comment on above: Order Comment: Speci men Type: BLOOD SPECIMEN Performed By: #### 2 4323-8, 3040-3 ####[facility]ATORYCLIA [id number] [place] [address] [place] PT panel Coag (PPP)on 2020 INR Coag (PPP) [Relative time] 1.0 {INR} Normal 0.9-1.3 [facility] Comment on above: Order Comment: Speci men Type: BLOOD SPECIMEN Result Comment: Alisha min K Antagonist (VKA) Therapeutic Range: INR 2 to 3 (Target INR of 2.5) Note: For patients treated with VKA drugs, such as warfarin, the [place] [employer] 2012 Guideline recommends a therapeutic INR range of 2 to 3 (target INR of 2.5). This recommendation includes high-risk patients with antiphospholipid syndrome with previous arterial or venous thromboembolism, current-generation mechanical or bioprosthetic aortic heart valve replacement. Note: Patients with mechanical aortic valve replacement and additional risk factors for thromboembolic events (atrial fibrillation, previous thromboembolism, LV dysfunction, hypercoagulable conditions) or an older generation mechanical AVR (i.e., ball in-Cage) or any mechanical MVR should have a INR therapeutic range of 2.5 to 3.5 (target INR of 3). Maynor GH, et al. Chest 2012, 141:7S-47S Michele RA, et al. [facility] 2017, 70: 252-289 Performed By: #### 3 4528-0, 87026-1 ####[facility]ORY[facility]IA [id number] [address] PT Coag (PPP) [Time] 10.9 s Normal 9.7-13.0 [facility] Comment on above: Order Comment: Speci men Type: BLOOD SPECIMEN Performed By: #### 3 4528-0, 63427-7 ####[facility]ORY[facility]IA [id number] TYPE AND SCREENon 05-11-2021 ABO A Normal [facility] Comment on above: Order Comment: Speci men Type: BLOOD SPECIMEN Performed By: #### T SCR #### [facility] CLIA [id number] [address] HISTORICAL AB SCR STATUS Negative [facility] Comment on above: Order Comment: Speci men Type: BLOOD SPECIMEN Performed By: #### T SCR #### [facility] CLIA [id number] [address] Rh Nom (Bld) Positive Normal [facility] Comment on above: Order Comment: Speci men Type: BLOOD SPECIMEN Performed By: #### T SCR #### [facility] CLIA [id number] [address] TYPE AND SCREEN EXPIRATION 05/14/2021 23:59 Normal [facility] Comment on above: Order Comment: Speci men Type: BLOOD SPECIMEN Performed By: #### T SCR #### [facility] CLIA [id number] [address] [facility] aPTT PPPon 05-11-2021 aPTT Coag (PPP) [Time] 27.1 s Normal 23.0-32.4 [facility] Comment on above: Order Comment: Speci men Type: BLOOD SPECIMEN Performed By: #### 3 4528-0, 04989-9 ####[facility]ATORYCLIA [id number] [place] [id number] [facility] Vital Signs Date Time Vital Sign Value Performing Clinician Facility 09-23-2024 09:12-0400 Body mass index (BMI) [Ratio] 31.68 kg/m2 Silvia Vazquez APRN.MEDICAL AFFAIRS LEADER Work Phone: [facility] 09-23-2024 09:12-0400 Body weight 76.4 kg Silvia Vazquez APRN.MEDICAL AFFAIRS LEADER Work Phone: [facility] 09-23-2024 09:12-0400 Diastolic blood pressure 70 mm[Hg] Silvia Vazquez MANAGING PARTNER.MEDICAL AFFAIRS LEADER Work Phone: [facility] 09-23-2024 09:12-0400 Heart rate 85 /min Silvia Vazquez APRN.MEDICAL AFFAIRS LEADER Work Phone: [facility] 09-23-2024 09:12-0400 Respiratory rate 16 /min Silvia Vazquez MANAGING PARTNER.MEDICAL AFFAIRS LEADER Work Phone: [facility] 09-23-2024 09:12-0400 SaO2% (BldA) [Mass fraction] 96 % Silvia Vazquez MANAGING PARTNER.MEDICAL AFFAIRS LEADER Work Phone: [facility] 09-23-2024 09:12-0400 Systolic blood pressure 110 mm[Hg] Silvia Vazquez APRN.MEDICAL AFFAIRS LEADER Work Phone: [facility] 06-17-2024 09:52-0500 Body height 155.3 cm Silvia Vazquez APRN.MEDICAL AFFAIRS LEADER Work Phone: [facility] 06-17-2024 09:52-0500 Body mass index (BMI) [Ratio] 32.59 kg/m2 Silvia Tannhof MANAGING PARTNER.MEDICAL AFFAIRS LEADER Work Phone: [facility] 06-17-2024 09:52-0500 Body weight 78.6 kg Silvia Tannhof MANAGING PARTNER.MEDICAL AFFAIRS LEADER Work Phone: [facility] 06-17-2024 09:52-0500 Diastolic blood pressure 70 mm[Hg] Silvia Tannhof MANAGING PARTNER.MEDICAL AFFAIRS LEADER Work Phone: [facility] 06-17-2024 09:52-0500 Heart rate 87 /min Silvia Tannhof MANAGING PARTNER.MEDICAL AFFAIRS LEADER Work Phone: [facility] 06-17-2024 09:52-0500 Respiratory rate 16 /min Silvia Tannhof MANAGING PARTNER.MEDICAL AFFAIRS LEADER Work Phone: [facility] 06-17-2024 09:52-0500 SaO2% (BldA) [Mass fraction] 98 % Silvia Tannhof MANAGING PARTNER.MEDICAL AFFAIRS LEADER Work Phone: [facility] 06-17-2024 09:52-0500 Systolic blood pressure 100 mm[Hg] Silvia Tannhof MANAGING PARTNER.MEDICAL AFFAIRS LEADER Work Phone: [facility] 04-29-2023 10:38-0400 Body height 153.3 cm Silvia Tannhof MANAGING PARTNER.MEDICAL AFFAIRS LEADER Work Phone: [facility] 04-29-2023 10:38-0400 Body weight 79.38 kg Silvia Tannhof MANAGING PARTNER.MEDICAL AFFAIRS LEADER Work Phone: [facility] 04-29-2023 10:38-0400 Diastolic blood pressure 70 mm[Hg] Silvia Tannhof MANAGING PARTNER.MEDICAL AFFAIRS LEADER Work Phone: [facility] 04-29-2023 10:38-0400 Heart rate 105 /min Silvia Tannhof MANAGING PARTNER.MEDICAL AFFAIRS LEADER Work Phone: [facility] 04-29-2023 10:38-0400 Respiratory rate 16 /min Silvia Tannhof MANAGING PARTNER.MEDICAL AFFAIRS LEADER Work Phone: [facility] 04-29-2023 10:38-0400 SaO2% (BldA) [Mass fraction] 97 % Silvia Vazquez MANAGING PARTNER.MEDICAL AFFAIRS LEADER Work Phone: [facility] 04-29-2023 10:38-0400 Systolic blood pressure 100 mm[Hg] Silvia Vazquez MANAGING PARTNER.MEDICAL AFFAIRS LEADER Work Phone: [facility] 04-22-2023 11:54-0400 Body temperature 97.39 [degF] Spencer John MANAGING PARTNER.MEDICAL AFFAIRS LEADER Work Phone: [facility] 04-22-2023 11:54-0400 Body weight 79.83 kg Spencer John MANAGING PARTNER.MEDICAL AFFAIRS LEADER Work Phone: [facility] 04-22-2023 11:54-0400 Diastolic blood pressure 80 mm[Hg] Spencer John MANAGING PARTNER.MEDICAL AFFAIRS LEADER Work Phone: [facility] 04-22-2023 11:54-0400 Heart rate 88 /min Spencer John MANAGING PARTNER.MEDICAL AFFAIRS LEADER Work Phone: [facility] 04-22-2023 11:54-0400 Respiratory rate 16 /min Spencer John MANAGING PARTNER.MEDICAL AFFAIRS LEADER Work Phone: [facility] 04-22-2023 11:54-0400 SaO2% (BldA) [Mass fraction] 97 % Spencer John MANAGING PARTNER.MEDICAL AFFAIRS LEADER Work Phone: [facility] 04-22-2023 11:54-0400 Systolic blood pressure 138 mm[Hg] Spencer John MANAGING PARTNER.MEDICAL AFFAIRS LEADER Work Phone: [facility] 04-19-2023 20:21-0400 Body temperature 96.3 [degF] Dr. Deirdre Quiñones Work Phone: [facility] 04-19-2023 20:21-0400 Diastolic blood pressure 65 mm[Hg] Dr. Deirdre Quiñones Work Phone: [facility] 04-19-2023 20:21-0400 Heart rate 107 /min Dr. Deirdre Quiñones Work Phone: [facility] 04-19-2023 20:21-0400 Respiratory rate 18 /min Dr. Deirdre Quiñones Work Phone: [facility] 04-19-2023 20:21-0400 SaO2% (BldA) [Mass fraction] 98 % Dr. Deirdre Quiñones Work Phone: [facility] 04-19-2023 20:21-0400 Systolic blood pressure 102 mm[Hg] Dr. Deirdre Quiñones Work Phone: [facility] 04-19-2023 20:16-0400 Body height 157.[address] Deirdre Quiñones Work Phone: [facility] 04-19-2023 20:16-0400 Body mass index (BMI) [Ratio] 31.7 kg/m2 Dr. Deirdre Quiñones Work Phone: [facility] 04-19-2023 20:16-0400 Body weight 78.[address] Deirdre Quiñones Work Phone: [facility] 04-19-2023 19:52-0400 Body temperature 97.7 [degF] Maura Morillo APRN.MEDICAL AFFAIRS LEADER Work Phone: [facility] 04-19-2023 19:52-0400 Body weight 79.56 kg Maura Morillo APRN.MEDICAL AFFAIRS LEADER Work Phone: [facility] 04-19-2023 19:52-0400 Diastolic blood pressure 72 mm[Hg] Maura Morillo APRN.MEDICAL AFFAIRS LEADER Work Phone: [facility] 04-19-2023 19:52-0400 Heart rate 104 /min Maura Morillo APRN.MEDICAL AFFAIRS LEADER Work Phone: [facility] 04-19-2023 19:52-0400 Respiratory rate 24 /min Maura Morillo APRN.MEDICAL AFFAIRS LEADER Work Phone: [facility] 04-19-2023 19:52-0400 SaO2% (BldA) [Mass fraction] 98 % Maura Morillo APRN.MEDICAL AFFAIRS LEADER Work Phone: [facility] 04-19-2023 19:52-0400 Systolic blood pressure 134 mm[Hg] Maura Morillo MANAGING PARTNER.MEDICAL AFFAIRS LEADER Work Phone: [facility] 02-23-2023 00:03-0400 Diastolic blood pressure 91 mm[Hg] [facility] 02-23-2023 00:03-0400 Heart rate 71 /min [facility] 02-23-2023 00:03-0400 Respiratory rate 18 /min [facility] 02-23-2023 00:03-0400 SaO2% (BldA) [Mass fraction] 99 % [facility] 02-23-2023 00:03-0400 Systolic blood pressure 172 mm[Hg] [facility] 02-22-2023 22:11-0400 Body mass index (BMI) [Ratio] 33.8 kg/m2 [facility] 02-22-2023 22:11-0400 Body weight 83.9 kg [facility] 02-22-2023 21:06-0400 Body height 157.48 cm [facility] 02-22-2023 21:06-0400 Body temperature 97.8 [degF] [facility] 11-22-2022 08:26-0400 Body temperature 95.3 [degF] [facility] 11-22-2022 08:26-0400 Diastolic blood pressure 93 mm[Hg] [facility] 11-22-2022 08:26-0400 Heart rate 78 /min [facility] 11-22-2022 08:26-0400 Respiratory rate 16 /min [facility] 11-22-2022 08:26-0400 SaO2% (BldA) [Mass fraction] 99 % [facility] 11-22-2022 08:26-0400 Systolic blood pressure 145 mm[Hg] [facility] 06-27-2022 09:12-0500 Body weight 80.74 kg Silvia Vazquez MANAGING PARTNER.MEDICAL AFFAIRS LEADER Work Phone: [facility] 06-27-2022 09:12-0500 Diastolic blood pressure 98 mm[Hg] Silvia Vazquez MANAGING PARTNER.MEDICAL AFFAIRS LEADER Work Phone: [facility] 06-27-2022 09:12-0500 Heart rate 92 /min Silvia Goodwinhof MANAGING PARTNER.MEDICAL AFFAIRS LEADER Work Phone: [facility] 06-27-2022 09:12-0500 Respiratory rate 20 /min Silvia Goodwinhojuan pablo MANAGING PARTNER.MEDICAL AFFAIRS LEADER Work Phone: [facility] 06-27-2022 09:12-0500 SaO2% (BldA) [Mass fraction] 98 % Silvia Goodwinhof MANAGING PARTNER.MEDICAL AFFAIRS LEADER Work Phone: [facility] 06-27-2022 09:12-0500 Systolic blood pressure 150 mm[Hg] Silvia Goodwinhojuan pablo MANAGING PARTNER.MEDICAL AFFAIRS LEADER Work Phone: [facility] 04-05-2022 09:33-0400 Body weight 81.28 kg Deirdre Quiñones MD Work Phone: [facility] 04-05-2022 09:33-0400 Diastolic blood pressure 74 mm[Hg] Deirdre Quiñones MD Work Phone: [facility] 04-05-2022 09:33-0400 Heart rate 68 /min Deirdre Quiñones MD Work Phone: [facility] 04-05-2022 09:33-0400 Respiratory rate 16 /min Deirdre Quiñones MD Work Phone: [facility] 04-05-2022 09:33-0400 Systolic blood pressure 122 mm[Hg] Deirdre Quiñones MD Work Phone: [facility] 11-16-2021 12:45-0400 Body temperature 97.39 [degF] Maura Morillo APRN.MEDICAL AFFAIRS LEADER Work Phone: [facility] 11-16-2021 12:45-0400 Body weight 82.1 kg Maura Morillo APRN.MEDICAL AFFAIRS LEADER Work Phone: [facility] 11-16-2021 12:45-0400 Diastolic blood pressure 74 mm[Hg] Maura Morillo APRN.MEDICAL AFFAIRS LEADER Work Phone: [facility] 11-16-2021 12:45-0400 Heart rate 85 /min Maura Morillo APRN.MEDICAL AFFAIRS LEADER Work Phone: [facility] 11-16-2021 12:45-0400 Respiratory rate 21 /min Maura Morillo APRN.MEDICAL AFFAIRS LEADER Work Phone: [facility] 11-16-2021 12:45-0400 SaO2% (BldA) [Mass fraction] 97 % Maura Morillo APRN.MEDICAL AFFAIRS LEADER Work Phone: [facility] 11-16-2021 12:45-0400 Systolic blood pressure 124 mm[Hg] Maura Morillo APRN.MEDICAL AFFAIRS LEADER Work Phone: [facility] 09-26-2021 10:16-0400 Body height 157.5 cm Deirdre Quiñones MD Work Phone: [facility] 09-26-2021 10:16-0400 Body weight 81.92 kg Deirdre Quiñones MD Work Phone: [facility] 09-26-2021 10:16-0400 Diastolic blood pressure 70 mm[Hg] Deirdre Quiñones MD Work Phone: [facility] 09-26-2021 10:16-0400 Heart rate 66 /min Deirdre Quiñones MD Work Phone: [facility] 09-26-2021 10:16-0400 Respiratory rate 16 /min Deirdre Quiñones MD Work Phone: [facility] 09-26-2021 10:16-0400 Systolic blood pressure 124 mm[Hg] Deirdre Quiñoens MD Work Phone: [facility] Encounters Encounter Date Encounter Type Care Provider Facility Start: 03-12-2025 End: 03-12-2025 Refill Deirdre Quiñones MD Work Phone: [facility] Comment on above: Refill Request Start: 01-19-2025 End: 01-19-2025 Refill Deirdre Quiñones MD Work Phone: [facility] [place] Comment on above: Refill Request Start: 12-09-2024 End: 12-09-2024 ambulatory Denise Edward RN [facility] Comment on above: Nurse Care Coordinat or Outreach Start: 12-09-2024 End: 12-09-2024 E-mail encounter from caregiver Denise Edward RN [facility] Start: 12-03-2024 End: 12-03-2024 ambulatory Deirdre Quiñones MD Work Phone: [facility] Start: 12-01-2024 End: 12-01-2024 Telephone encounter Deirdre Quiñones MD Work Phone: [facility] [place] Comment on above: Insurance Authorizat ion Start: 11-29-2024 End: 12-01-2024 Refill Jay Saravanan MANAGING PARTNER.MEDICAL AFFAIRS LEADER Work Phone: [facility] [place] Comment on above: Refill Request Start: 11-20-2024 End: 11-20-2024 ambulatory Denise Edward RN [facility] Comment on above: Nurse Care Coordinat or Outreach Start: 11-20-2024 End: 11-20-2024 E-mail encounter from caregiver Denise Edward RN [facility] Start: 11-06-2024 End: 11-06-2024 ambulatory Denise Edward RN [facility] Comment on above: Nurse Care Coordinat or Outreach Start: 11-06-2024 End: 11-06-2024 E-mail encounter from caregiver Denise Edward RN [facility] Start: 10-23-2024 End: 10-23-2024 ambulatory Denise Edward RN [facility] Comment on above: Bi-Weekly Outreach ( Recurring) for Chronic Disease Management Start: 10-19-2024 End: 10-19-2024 Refill Ajy Saravanan MANAGING PARTNER.MEDICAL AFFAIRS LEADER Work Phone: [facility] [place] Comment on above: Refill Request Start: 10-14-2024 End: 11-11-2024 Telephone encounter Nuha [facility] Comment on above: New Primary Care Pha rmacy Appt. Start: 10-13-2024 End: 10-13-2024 ambulatory Mesfin Callahan [facility] Work Phone: Pharmacy Medicine Start: 10-13-2024 End: 10-13-2024 Coordination of care plan Mesfinsarah Callahan [facility] Work Phone: Pharmacy Medicine Comment on above: Care Coordination (R eferred to Pharmacy for Diabetes Management) Start: 10-12-2024 End: 10-12-2024 ambulatory Denise Edward RN [facility] Comment on above: Nurse Care Coordinat or Outreach Start: 10-12-2024 End: 10-12-2024 E-mail encounter from caregiver Denise Edward RN [facility] Start: 09-25-2024 End: 09-25-2024 Refill Deirdre Quiñones MD Work Phone: [facility] [place] Comment on above: Refill Request Nurse Care Coordinat or Outreach Start: 09-24-2024 End: 09-24-2024 ambulatory Scarlett Stone MA [facility] [place] Start: 09-24-2024 End: 09-24-2024 Patient encounter procedure Scarlett Stone MA [facility] [place] Comment on above: Population Health Na vigation Outreach (jackelin dhaliwal) Start: 09-23-2024 End: 09-23-2024 Office outpatient visit 25 minutes Silvia Vazquez APRN.CNP Work Phone: [facility] Comment on above: Type 2 diabetes radha itus without complication, without long- term current use of insulin (HCC) (Primary Dx); Sciatica, right side; Hypothyroidism, unspecified type; Anxiety state; Asthma due to seasonal allergies; Mixed hyperlipidemia; Smoking Start: 09-23-2024 End: 09-23-2024 ambulatory [facility] Facility:[facility] Start: 09-21-2024 End: 09-21-2024 ambulatory [facility] Facility:[facility] Start: 09-11-2024 End: 09-11-2024 ambulatory Denise Edward RN [facility] Comment on above: CDM (Enrollment outr each) Initial enrollment outreach for Chronic Disease Management Start: 08-21-2024 End: 08-21-2024 ambulatory Bonnie Tucker MA [facility] [place] Start: 08-21-2024 End: 08-21-2024 Patient encounter procedure Bonnie Tucker MA [facility] Comment on above: Population Health Na vigation Outreach ([employer] High Risk - Attempt 1) Start: 07-21-2024 End: 07-22-2024 Refill Deirdre Quiñones MD Work Phone: [facility] [place] Comment on above: Refill Request Start: 06-17-2024 End: 06-17-2024 ambulatory SILVIA YOUSIFE TAYLOR Facility:[facility] Start: 06-17-2024 End: 06-17-2024 Patient encounter procedure Silvia Vazquez APRN.MEDICAL AFFAIRS LEADER Work Phone: [facility] [place] Comment on above: Medicare annual well ness visit, subsequent (Primary Dx); Sciatica, right side; Acute pain of left knee; Type 2 diabetes mellitus without complication, without long-term current use of insulin (HCC); Hypothyroidism, unspecified type; Asthma due to seasonal allergies; Anxiety state; Smoking; Screening for depression Start: 06-16-2024 End: 06-16-2024 ambulatory DEIRDRE QUIÑONES Facility:[facility] Start: 05-18-2024 End: 05-18-2024 Refill Jay Tran APRN.MEDICAL AFFAIRS LEADER Work Phone: [facility] [place] Comment on above: Refill Request Start: 04-24-2024 End: 04-24-2024 Refill Deirdre Quiñones MD Work Phone: [facility] [place] Comment on above: Refill Request Start: 04-20-2024 End: 04-20-2024 Refill Silvia Vazquez APRN.MEDICAL AFFAIRS LEADER Work Phone: [facility] [place] Comment on above: Refill Request Start: 01-17-2024 Refill Deirdre stephen MD Work Phone: [facility] [place] Comment on above: Refill Request Start: 10-22-2023 Refill Jay BOGGS RN.MEDICAL AFFAIRS LEADER Work Phone: [facility] [place] Comment on above: Refill Request Start: 04-29-2023 End: 04-29-2023 Patient encounter procedure Silvia Vazquez APRN.MEDICAL AFFAIRS LEADER Work Phone: [facility] Comment on above: Medicare annual well ness visit, initial (Primary Dx); Type 2 diabetes mellitus without complication, without long-term current use of insulin (HCC); Hypertension, unspecified type; Mixed hyperlipidemia; Anxiety state; Hypothyroidism, unspecified type; History of COVID-19 Start: 04-24-2023 Refill Deirdre stephen MD Work Phone: [facility] Comment on above: Refill Request Start: 04-22-2023 End: 04-22-2023 Patient encounter procedure Spencer Lopez APRN.MEDICAL AFFAIRS LEADER Work Phone: [facility] Comment on above: Closed fracture of o ne rib of left side, initial encounter (Primary Dx); Rib injury Start: 04-22-2023 End: 04-22-2023 Subsequent hospital visit by physician [facility] Work Phone: Radiology Comment on above: Rib injury [S29.9XXA ] Start: 04-19-2023 End: 04-19-2023 Emergency department patient visit Dr. Deirdre Quiñones Work Phone: [facility] Work Phone: Start: 04-19-2023 End: 04-19-2023 Patient encounter procedure Maura Morillo APRN.MEDICAL AFFAIRS LEADER Work Phone: [facility] Comment on above: Chest tightness (Helene josie Dx) Start: 04-19-2023 ambulatory Yolis Camarillo RN [facility] Start: 04-19-2023 Follow-up encounter Yolis meléndez RN NURSE SENSOR TECHNICIAN Comment on above: Covid Positive; Foll ow Up For Start: 04-19-2023 Refill Jay BOGGS RN.MEDICAL AFFAIRS LEADER Work Phone: [facility] Comment on above: Refill Request Start: 04-18-2023 Telephone encounter Deirdre coulter MD Work Phone: [facility] Comment on above: Patient Update Start: 03-06-2023 End: 03-06-[address] Deirdre Quiñones Work Phone: [facility] Work Phone: Start: 02-22-2023 End: 02-23-2023 Emergency department patient visit Deirdre Radhadeangelo Facility:[facility] Start: 02-22-2023 End: 02-23-2023 Emergency department patient visit [facility] Work Phone: Start: 02-05-2023 ambulatory [facility]Ps s) [facility] [employer] [facility] [place] Comment on above: Population Health Na vigation Outreach ([employer] [facility]) Start: 01-21-2023 Refill Deirdre stephen MD Work Phone: [facility] [place] Comment on above: Refill Request Start: 01-21-2023 Refill Silvia Vazquez APRN.MEDICAL AFFAIRS LEADER Work Phone: [facility] [place] Comment on above: Refill Request Start: 12-11-2022 ambulatory Sheree Blanca (Ps s) [facility] [employer] [facility] [place] Comment on above: Population Health Na vigation Outreach ([employer] [facility]) Start: 12-04-2022 Telephone encounter Deirdre coulter MD Work Phone: [facility] [place] Comment on above: Medication Problem Start: 11-22-2022 End: 11-22-2022 Subsequent hospital visit by physician Xr [facility] Work Phone: Radiology Comment on above: Acute hip pain, righ t [M25.551] Start: 11-22-2022 End: 11-22-2022 Emergency department patient visit Say Mauricio Facility:[facility] Start: 11-22-2022 End: 11-22-2022 Emergency department patient visit [facility] Work Phone: Start: 11-02-2022 Refill Jay BOGGS RN.MEDICAL AFFAIRS LEADER Work Phone: [facility] [place] Comment on above: Refill Request Start: 10-21-2022 Refill Deirdre stephen MD Work Phone: [facility] [place] Comment on above: Refill Request Start: 10-21-2022 Refill Jay BOGGS RN.MEDICAL AFFAIRS LEADER Work Phone: [facility] Comment on above: Refill Request Start: 10-04-2022 Telephone encounter Deirdre coulter MD Work Phone: [facility] Comment on above: [employer] [place] Start: 09-25-2022 Refill Jay BOGGS RN.MEDICAL AFFAIRS LEADER Work Phone: [facility] Comment on above: Refill Request Start: 09-24-2022 Telephone encounter Deirdre coulter MD Work Phone: [facility] Comment on above: handicap placard req uest Start: 09-17-2022 Refill Jay BOGGS RN.MEDICAL AFFAIRS LEADER Work Phone: [facility] Comment on above: Refill Request Start: 08-30-2022 Refill Silvia Vazquez APRN.MEDICAL AFFAIRS LEADER Work Phone: [facility] [place] Comment on above: Refill Request Start: 08-16-2022 Telephone encounter Deirdre coulter MD Work Phone: [facility] Comment on above: Results; Patient Upd ate; Patient Question Start: 08-15-2022 End: 08-15-2022 ambulatory [facility] Start: 08-11-2022 End: 08-11-2022 ambulatory [facility] Facility:[facility] Start: 08-01-2022 Telephone encounter Deirdre coulter MD Work Phone: [facility] Comment on above: Insurance Authorizat ion ([employer] ) Start: 07-26-2022 Refill Deirdre stephen MD Work Phone: [facility] Comment on above: Refill Request Start: 07-23-2022 End: 07-23-2022 Refill Deirdre Quiñones MD Work Phone: [facility] Comment on above: Refill Request Start: 07-05-2022 End: 07-05-2022 Subsequent hospital visit by physician Xr [facility] [place] Work Phone: Radiology Comment on above: Hip pain [M25.559] Start: 07-04-2022 Telephone encounter Deirdre coulter MD Work Phone: [facility] [place] Comment on above: Patient Update Start: 06-27-2022 End: 06-27-2022 Patient encounter procedure Silvia Taylor LEUNG.MEDICAL AFFAIRS LEADER Work Phone: [facility] [place] Comment on above: Sciatica, right side (Primary Dx) Start: 06-20-2022 Refill Deirdre stephen MD Work Phone: [facility] [place] Comment on above: Refill Request Start: 06-02-2022 Refill Jay BOGGS RN.[facility] Work Phone: [facility] [place] Comment on above: Refill Request Start: 05-21-2022 Refill Deirdre stephen MD Work Phone: [facility] [place] Comment on above: Refill Request Start: 05-03-2022 Refill Deirdre stephen MD Work Phone: [facility] [place] Comment on above: Refill Request [employer] Start: 04-21-2022 Refill Jay BOGGS RN.[facility] Work Phone: [facility] [place] Comment on above: Refill Request Start: 04-19-2022 Refill Jay BOGGS RN.[facility] Work Phone: [facility] [place] Comment on above: Refill Request Start: 04-05-2022 End: 04-05-2022 Patient encounter procedure Deirdre Quiñones MD Work Phone: [facility] [place] Comment on above: Uncontrolled type 2 diabetes mellitus with hyperglycemia (HCC) (Primary Dx); Mixed hyperlipidemia; Hypertension, unspecified type; Anxiety state; Fall, initial encounter; Hypothyroidism, unspecified type; Arthritis of both hands Start: 03-23-2022 Refill Deirdre stephen MD Work Phone: [facility] [place] Comment on above: Refill Request Start: 03-20-2022 Refill Jay Saravanan AP RN.MEDICAL AFFAIRS LEADER Work Phone: [facility] [place] Comment on above: Refill Request Start: 01-17-2022 Refill Deirdre stephen MD Work Phone: [facility] [place] Comment on above: Refill Request Start: 12-11-2021 Telephone encounter Silvia gaston APRN.MEDICAL AFFAIRS LEADER Work Phone: [facility] [place] Comment on above: Results Start: 11-24-2021 Telephone encounter Sami Sales MD Work Phone: [facility] [place] Comment on above: Medication Problem Start: 11-23-2021 Telephone encounter Sami Sales MD Work Phone: [facility] [place] Comment on above: Results Start: 11-23-2021 End: 11-23-2021 Subsequent hospital visit by physician Maranda [facility] [place] Work Phone: Radiology Comment on above: Viral URI with cough [J06.9] Start: 11-16-2021 End: 11-16-2021 Patient encounter procedure Maura Morillo APRN.MEDICAL AFFAIRS LEADER Work Phone: [facility] Comment on above: Congestion of nasal sinus (Primary Dx) Start: 11-14-2021 Telephone encounter Deirdre coulter MD Work Phone: [facility] [place] Comment on above: Patient Question; Pa tient Update Start: 10-20-2021 Refill Deirdre stephen MD Work Phone: [facility] [place] Comment on above: Refill Request Start: 09-29-2021 Telephone encounter Deirdre coulter MD Work Phone: [facility] [place] Comment on above: Results Start: 09-26-2021 End: 09-26-2021 Patient encounter procedure Deirdre Quiñones MD Work Phone: [facility] [place] Comment on above: Type 2 diabetes radha itus without complication, without long- term current use of insulin (HCC) (Primary Dx); Diarrhea, unspecified type; Hypertension, unspecified type; Hypothyroidism, unspecified type; Mixed hyperlipidemia; Anxiety state; Subarachnoid hemorrhage following injury, no loss of consciousness, sequela (HCC); Tobacco use; Tick bite, unspecified site, initial encounter Procedures Date Procedure Procedure Detail Performing Clinician Start: 06-17-2024 Adult depression screening assessment Silvia Vazquez APRN.MEDICAL AFFAIRS LEADER Work Phone: Start: 04-22-2023 Radex ribs uni w/posteroant ch minimum 3 views Spencer Lopez MANAGING PARTNER.MEDICAL AFFAIRS LEADER Work Phone: Start: 02-22-2023 Plain x-ray of pelvi s and lower extremity Start: 11-22-2022 Radex hip unilateral with pelvis 2-3 views David Alexis MD Work Phone: Start: 07-05-2022 Radex hips bilateral with pelvis minimum 5 views Silvia Vazquez MANAGING PARTNER.MEDICAL AFFAIRS LEADER Work Phone: Start: 11-23-2021 Radiologic exam ches t 2 views Tahir Sales MD Work Phone: Start: 09-26-2021 Adult depression screening assessment Deirdre Quiñones MD Work Phone: Start: 05-11-2021 Antibody screen Comment on above: Order Comment: Speci men Type: BLOOD SPECIMEN Performed By: #### T SCR #### [facility] CLIA [id number] [address] Plan of Treatment Date Care Activity Detail Author Start: 02-09-2035 Urine microalbumin profile DTaP,Tdap,Td Vaccine (3 - Td or Tdap) [facility] Start: 09-23-2025 Annual PCP Team Business Development Analyst gilson Disease Visit Annual PCP Team Chronic Disease Visit [facility] Start: 09-23-2025 BP Controlled (<130/80) BP Controlle d (<130/80) [facility] Start: 09-21-2025 Glaucoma screening Dilated Retinal E xam [facility] Start: 06-17-2025 Annual PCP Team Business Development Analyst gilson Disease Visit Annual PCP Team Chronic Disease Visit [facility] Start: 06-17-2025 BP Controlled (<130/80) BP Controlle d (<130/80) [facility] Start: 06-17-2025 Depression Screening Depression Scre ening [facility] Start: 06-16-2025 Hepatitis B surface antibody level LDL Cholesterol [facility] Start: 03-08-2025 Influenza vaccination Influenza Vacc ine (#1) [facility] Start: 12-24-2024 End: 03-25-2025 Comprehensive metabolic 2000 panel - Serum or Plasma COMPREHENSIVE METABOLIC PANEL Lab Routine Mixed hyperlipidemia Expected: 12/24/2024, Expires: 03/25/2025 [facility] Comment on above: Expected: 12/24/2024 , Expires: 03/25/2025 Start: 12-24-2024 End: 03-25-2025 Hemoglobin A1c in Blood HEMOGLOBIN A1C Lab Routine Type 2 diabetes mellitus without complication, without long-term current use of insulin (HCC) Expected: 12/24/2024, Expires: 03/25/2025 [facility] Work Phone: Comment on above: Expected: 12/24/2024 , Expires: 03/25/2025 Start: 12-24-2024 End: 03-25-2025 Lipid 1996 panel - Serum or Plasma LIPID PANEL, FASTING Lab Routine Mixed hyperlipidemia Expected: 12/24/2024, Expires: 03/25/2025 [facility] Comment on above: Expected: 12/24/2024 , Expires: 03/25/2025 Start: 12-22-2024 Hemoglobin A1c measurement HbA1C [facility] Start: 09-23-2024 End: 09-23-2024 Patient encounter procedure [facility] [place] Comment on above: 3 month follow up 3 month follow up / UACR due Start: 09-15-2024 End: 12-15-2024 Comprehensive metabolic 2000 panel - Serum or Plasma COMPREHENSIVE METABOLIC PANEL Lab Routine Type 2 diabetes mellitus without complication, without long-term current use of insulin (HCC) Expected: 09/15/2024, Expires: 12/15/2024 [facility] Work Phone: Comment on above: Expected: 09/15/2024 , Expires: 12/15/2024 Start: 09-15-2024 End: 12-15-2024 Hemoglobin A1c in Blood HEMOGLOBIN A1C Lab Routine Type 2 diabetes mellitus without complication, without long-term current use of insulin (HCC) Expected: 09/15/2024, Expires: 12/15/2024 [facility] Comment on above: Expected: 09/15/2024 , Expires: 12/15/2024 Start: 09-14-2024 Hemoglobin A1c measurement HbA1C [facility] Start: 07-08-2024 Advance Directive Discussion Advance Directive Discussion [facility] Start: 07-08-2024 Medicare Advantage Annual Wellness Visit Medicare Advantage Annual Wellness Visit [facility] Start: 06-08-2024 End: 06-08-2024 Patient encounter procedure 06/08/2024 10:40 AM EST Office Visit [facility] [place] [address] [facility] [place] [id number] Silvia Vazquez, MANAGING PARTNER.MEDICAL AFFAIRS LEADER [address] [facility] [place] [id number] medicare [facility] [place] Comment on above: medicare wellnes Start: 05-25-2024 Covid-19 Vaccine () Covid-19 Vaccine () [facility] Start: 05-18-2024 End: 08-17-2024 CBC W Auto Differential panel - Blood COMPLETE BLOOD COUNT AND DIFFERENTIAL Lab Routine Hypertension, unspecified type Hypothyroidism, unspecified type Expected: 05/18/2024, Expires: 08/17/2024 [facility] Comment on above: Expected: 05/18/2024 , Expires: 08/17/2024 Start: 05-18-2024 End: 08-17-2024 Comprehensive metabolic 2000 panel - Serum or Plasma COMPREHENSIVE METABOLIC PANEL Lab Routine Type 2 diabetes mellitus without complication, without long-term current use of insulin (HCC) Mixed hyperlipidemia Expected: 05/18/2024, Expires: 08/17/2024 [facility] Comment on above: Expected: 05/18/2024 , Expires: 08/17/2024 Start: 05-18-2024 End: 08-17-2024 Hemoglobin A1c in Blood HEMOGLOBIN A1C Lab Routine Type 2 diabetes mellitus without complication, without long-term current use of insulin (HCC) Expected: 05/18/2024, Expires: 08/17/2024 [facility] Comment on above: Expected: 05/18/2024 , Expires: 08/17/2024 Start: 05-18-2024 End: 08-17-2024 Lipid 1996 panel - Serum or Plasma LIPID PANEL BASIC Lab Routine Type 2 diabetes mellitus without complication, without long-term current use of insulin (HCC) Mixed hyperlipidemia Expected: 05/18/2024, Expires: 08/17/2024 [facility] Comment on above: Expected: 05/18/2024 , Expires: 08/17/2024 Start: 05-18-2024 End: 08-17-2024 TSH W/REFLEX FT4 TSH W/REFLEX FT4 Lab Routine Hypothyroidism, unspecified type Expected: 05/18/2024, Expires: 08/17/2024 [facility] Work Phone: Comment on above: Expected: 05/18/2024 , Expires: 08/17/2024 Start: 04-29-2024 Annual PCP Team Business Development Analyst gilson Disease Visit Annual PCP Team Chronic Disease Visit [facility] Start: 04-29-2024 BP Controlled (<130/80) BP Controlle d (<130/80) [facility] Start: 04-10-2024 Annual PCP Team Business Development Analyst gilson Disease Visit Annual PCP Team Chronic Disease Visit [facility] Start: 03-08-2024 Covid-19 Vaccine ( season) Covid-19 Vaccine () [facility] Start: 03-08-2024 Covid-19 Vaccine () Covid-19 Vaccine () [facility] Start: 03-08-2024 Influenza vaccination Influenza Vacc ine (#1) [facility] Start: 07-29-2023 Covid-19 Vaccine ( season) Covid-19 Vaccine () [facility] Start: 07-08-2023 Advance Directive Discussion Advance Directive Discussion [facility] Start: 07-08-2023 Behavioral Health Screening Behavioral Health Screening [facility] Start: 06-27-2023 ANNUAL PCP TEAM HUMAN RESOURCES MANAGER GILSON DISEASE VISIT ANNUAL PCP TEAM CHRONIC DISEASE VISIT [facility] Start: 04-30-2023 Glaucoma screening Dilated Retinal E xam [facility] Start: 04-30-2023 Hepatitis C antibody , confirmatory test DILATED RETINAL EXAM [facility] Start: 04-29-2023 End: 07-29-2023 ALBUMIN/CREAT RATIO RND UR ALBUMIN/CREAT RATIO RND UR Lab Routine Type 2 diabetes mellitus without complication, without long-term current use of insulin (HCC) Expected: 04/29/2023, Expires: 07/29/2023 [facility] Work Phone: Comment on above: Expected: 04/29/2023 , Expires: 07/29/2023 Start: 04-29-2023 End: 07-29-2023 Comprehensive metabolic 2000 panel - Serum or Plasma COMP METABOLIC PANEL Lab Routine Type 2 diabetes mellitus without complication, without long-term current use of insulin (HCC) Expected: 04/29/2023, Expires: 07/29/2023 [facility] Work Phone: Comment on above: Expected: 04/29/2023 , Expires: 07/29/2023 Start: 04-29-2023 End: 07-29-2023 Hemoglobin A1c in Blood HGB A1C Lab Routine Type 2 diabetes mellitus without complication, without long-term current use of insulin (HCC) Expected: 04/29/2023, Expires: 07/29/2023 [facility] Work Phone: Comment on above: Expected: 04/29/2023 , Expires: 07/29/2023 Start: 04-29-2023 End: 07-29-2023 Lipid 1996 panel - Serum or Plasma LIPID PANEL BASIC Lab Routine Mixed hyperlipidemia Expected: 04/29/2023, Expires: 07/29/2023 [facility] Work Phone: Comment on above: Expected: 04/29/2023 , Expires: 07/29/2023 Start: 04-19-2023 [facility] Start: 04-05-2023 ANNUAL PCP TEAM HUMAN RESOURCES MANAGER GILSON DISEASE VISIT ANNUAL PCP TEAM CHRONIC DISEASE VISIT [facility] Start: 04-05-2023 BP CONTROLLED (<130/80) BP CONTROLLE D (<130/80) [facility] Start: 04-05-2023 Hepatitis B surface antibody level LDL CHOLESTEROL [facility] Start: 03-08-2023 Influenza vaccination INFLUENZA (#1) [facility] Start: 03-06-2023 Patient referral [facility] Work Phone: Start: 12-11-2022 End: 02-10-2023 ALBUMIN/CREAT RATIO RND UR ALBUMIN/CREAT RATIO RND UR Lab Routine Uncontrolled type 2 diabetes mellitus with hyperglycemia (HCC) Expected: 12/11/2022, Expires: 02/10/2023 [facility] Work Phone: Comment on above: Expected: 12/11/2022 , Expires: 02/10/2023 Start: 12-11-2022 End: 02-10-2023 Comprehensive metabolic 2000 panel - Serum or Plasma COMP METABOLIC PANEL Lab Routine Uncontrolled type 2 diabetes mellitus with hyperglycemia (HCC) Mixed hyperlipidemia Expected: 12/11/2022, Expires: 02/10/2023 [facility] Work Phone: Comment on above: Expected: 12/11/2022 , Expires: 02/10/2023 Start: 12-11-2022 End: 02-10-2023 Hemoglobin A1c in Blood HGB A1C Lab Routine Uncontrolled type 2 diabetes mellitus with hyperglycemia (HCC) Expected: 12/11/2022, Expires: 02/10/2023 [facility] Work Phone: Comment on above: Expected: 12/11/2022 , Expires: 02/10/2023 Start: 12-11-2022 End: 02-10-2023 Lipid 1996 panel - Serum or Plasma LIPID PANEL BASIC Lab Routine Uncontrolled type 2 diabetes mellitus with hyperglycemia (HCC) Mixed hyperlipidemia Expected: 12/11/2022, Expires: 02/10/2023 [facility] Work Phone: Comment on above: Expected: 12/11/2022 , Expires: 02/10/2023 Start: 11-30-2022 COVID-19 VACCINE (6 - Pfizer series) COVID-19 VACCINE (6 - Pfizer series) [facility] Start: 11-23-2022 ANNUAL PCP TEAM HUMAN RESOURCES MANAGER GILSON DISEASE VISIT ANNUAL PCP TEAM CHRONIC DISEASE VISIT [facility] Start: 11-16-2022 BP CONTROLLED (<130/80) BP CONTROLLE D (<130/80) [facility] Start: 11-12-2022 Hemoglobin A1c measurement HbA1C [facility] Start: 05-08-2023 Hemoglobin A1c/Hemoglobin.total in Blood HBA1C [facility] Start: 09-26-2022 Adult depression screening assessment DEPRESSION SCREENING [facility] Start: 09-26-2022 ANNUAL PCP TEAM HUMAN RESOURCES MANAGER GILSON DISEASE VISIT ANNUAL PCP TEAM CHRONIC DISEASE VISIT [facility] Start: 09-26-2022 BP CONTROLLED (<130/80) BP CONTROLLE D (<130/80) [facility] Start: 09-26-2022 Hepatitis B screening URINE AL BUMIN:CREATININE RATIO [facility] Start: 09-26-2022 Hepatitis B surface antibody level LDL CHOLESTEROL [facility] Start: 09-26-2022 HEPATITIS C [facility]CREENING [facility] Comment on above: Postponed from 10/24 (Declined at this time) Start: 07-08-2022 ADVANCE DIRECTIVE DISCUSSION ADVANCE DIRECTIVE DISCUSSION [facility] Start: 07-08-2022 DEPRESSION ASSESSMENT DEPRESSION ASS ESSMENT [facility] Start: 07-05-2022 End: 09-04-2022 Comprehensive metabolic 2000 panel - Serum or Plasma COMP METABOLIC PANEL Lab Routine Mixed hyperlipidemia Uncontrolled type 2 diabetes mellitus with hyperglycemia (HCC) Expected: 07/05/2022 (Approximate), Expires: 09/04/2022 [facility] Work Phone: Comment on above: Expected: 07/05/2022 (Approximate), Expires: 09/04/2022 Start: 07-05-2022 End: 09-04-2022 Hemoglobin A1c in Blood HGB A1C Lab Routine Uncontrolled type 2 diabetes mellitus with hyperglycemia (HCC) Expected: 07/05/2022 (Approximate), Expires: 09/04/2022 [facility] Work Phone: Comment on above: Expected: 07/05/2022 (Approximate), Expires: 09/04/2022 Start: 07-05-2022 Hemoglobin A1c/Hemoglobin.total in Blood HBA1C [facility] Start: 04-16-2022 COVID-19 VACCINE (5 - Booster for Pfizer series) COVID-19 VACCINE (5 - Booster for Pfizer series) [facility] Start: 03-29-2022 End: 05-29-2022 Comprehensive metabolic 2000 panel - Serum or Plasma COMP METABOLIC PANEL Lab Routine Mixed hyperlipidemia Hypertension, unspecified type Type 2 diabetes mellitus without complication, without long-term current use of insulin (HCC) Expected: 03/29/2022 (Approximate), Expires: 05/29/2022 [facility] Work Phone: Comment on above: Expected: 03/29/2022 (Approximate), Expires: 05/29/2022 Start: 03-29-2022 End: 05-29-2022 Hemoglobin A1c/Hemoglobin.total in Blood HGB A1C Lab Routine Type 2 diabetes mellitus without complication, without long-term current use of insulin (HCC) Expected: 03/29/2022 (Approximate), Expires: 05/29/2022 [facility] Work Phone: Comment on above: Expected: 03/29/2022 (Approximate), Expires: 05/29/2022 Start: 03-29-2022 End: 05-29-2022 LIPID PANEL BASIC LIPID PANEL BASIC Lab Routine Mixed hyperlipidemia Hypertension, unspecified type Type 2 diabetes mellitus without complication, without long-term current use of insulin (HCC) Expected: 03/29/2022 (Approximate), Expires: 05/29/2022 [facility] Work Phone: Comment on above: Expected: 03/29/2022 (Approximate), Expires: 05/29/2022 Start: 03-29-2022 End: 05-29-2022 Thyrotropin [Units/volume] in Serum or Plasma TSH BLD Lab Routine Hypothyroidism, unspecified type Expected: 03/29/2022 (Approximate), Expires: 05/29/2022 [facility] Work Phone: Comment on above: Expected: 03/29/2022 (Approximate), Expires: 05/29/2022 Start: 03-08-2022 Influenza vaccination INFLUENZA (#1) [facility] Start: 12-27-2021 Hemoglobin A1c/Hemoglobin.total in Blood HBA1C [facility] Start: 08-09-2021 COVID-19 VACCINE (4 - Booster for Pfizer series) COVID-19 VACCINE (4 - Booster for Pfizer series) [facility] Start: 07-08-2021 DEPRESSION ASSESSMENT DEPRESSION ASS ESSMENT [facility] Start: 08-25-2020 3 comp foot exam completed DIABETIC FOOT EXAM [facility] Start: 08-25-2020 Diabetic foot examination Diabetic Foot Exam [facility] Start: 10-24-2018 RSV Vaccine (1 - 1-d ose 75+ series) RSV Vaccine (1 - 1-dose 75+ series) [facility] Start: 02-26-2017 Urine microalbumin profile [facility] Start: 04-07-2016 Hepatitis C antibody , confirmatory test DILATED RETINAL EXAM [facility] Start: 2003 Hepatitis B Vaccine (1 of 3 - Risk 3-dose series) Hepatitis B Vaccine (1 of 3 - Risk 3-dose series) [facility] Start: 2003 RSV Vaccine (1 - 1-d ose 60+ series) RSV Vaccine (1 - 1-dose 60+ series) [facility] Start: 10-24-1961 BP CONTROLLED (<130/80) BP CONTROLLE D (<130/80) [facility] Start: 10-24-1961 Depression Screening Depression Scre ening [facility] Start: 10-24-1961 HEPATITIS C SCREENING HEPATITIS C SC REENING [facility] Start: 10-24-1961 Spirometry Spirometry [facility] Patient Education [facility] Work Phone: Patient referral [facility] Work Phone: [facility] Immunizations Immunization Date Immunization Notes Care Provider Zane pastor 02-09-2025 influenza, high dose seasonal, preservative-free Deirdre Quiñones MD Work Phone: [facility] 02-09-2025 tetanus toxoid, redu regis diphtheria toxoid, and acellular pertussis vaccine, adsorbed Deirdre Quiñones MD Work Phone: [facility] 03-30-2024 COVID-19 original vaccine, age 12+ yr, monovalent (PFIZER-[email or web address] - DAWSON TOP) Silvia Vazquez APRN.MEDICAL AFFAIRS LEADER Work Phone: [facility] 03-30-2024 influenza (HD-IIV4) vaccine, age 65+ yr, high dose, quadrivalent, PF (FLUZONE HIGH-DOSE) Silvia Vazquez APRN.MEDICAL AFFAIRS LEADER Work Phone: [facility] 03-30-2024 respiratory syncytia l virus (RSV) vaccine, adjuvanted (AREXVY) Silvia Vazquez MANAGING PARTNER.MEDICAL AFFAIRS LEADER Work Phone: [facility] 03-30-2024 influenza virus vacc ine, unspecified formulation Deirdre Quiñones MD Work Phone: [facility] 03-29-2023 influenza virus vacc ine, unspecified formulation Deirdre Quiñones MD Work Phone: [facility] 08-02-2022 COVID-19 booster vaccine, age 12+ yr, bivalent (PFIZER-BIONTECH) Deirdre Quiñones MD Work Phone: [facility] 04-02-2022 influenza (aIIV4) vaccine, age 65+ yr, quadrivalent, PF (FLUAD QUADRIVALENT) Deirdre Quiñones MD Work Phone: [facility] 02-19-2022 COVID-19 vaccine, ag e 12+ yr (PFIZER-BIONTECH - DAWSON TOP) Jay Tran MANAGING PARTNER.MEDICAL AFFAIRS LEADER Work Phone: [facility] 09-07-2020 COVID-19 vaccine, ag e 12+ yr (PFIZER-BIONTECH - PURPLE TOP) Deirdre Quiñones MD Work Phone: [facility] 08-16-2020 COVID-19 vaccine, ag e 12+ yr (PFIZER-BIONTECH - PURPLE TOP) Deirdre Quiñones MD Work Phone: [facility] 04-20-2020 influenza (aIIV4) vaccine, age 65+ yr, quadrivalent, PF (FLUAD QUADRIVALENT) Deirdre Quiñones MD Work Phone: [facility] 04-20-2020 influenza, seasonal, injectable Deirdre Quiñones MD Work Phone: [facility] 04-20-2020 zoster vaccine recombinant Deirdre Quiñones MD Work Phone: [facility] 03-31-2019 influenza, high dose seasonal, preservative-free Deirdre Quiñones MD Work Phone: [facility] 03-25-2019 zoster vaccine recombinant Deirdre Quiñones MD Work Phone: [facility] 04-05-2018 influenza, high dose seasonal, preservative-free Deirdre Quiñones MD Work Phone: [facility] 04-22-2017 influenza, injectabl e, quadrivalent, contains preservative Deirdre Quiñones MD Work Phone: [facility] Work Phone: 04-07-2015 influenza, seasonal, injectable Deirdre Quiñones MD Work Phone: [facility] 03-08-2015 zoster vaccine, live Deirdre fischer MD Work Phone: [facility] 11-10-2014 pneumococcal conjuga te vaccine, 13 valent Deirdre Quiñones MD Work Phone: [facility] 05-13-2014 influenza, seasonal, injectable Deirdre Quiñones MD Work Phone: [facility] 04-08-2013 influenza virus vacc ine, unspecified formulation Deirdre Quiñones MD Work Phone: [facility] 06-20-2010 influenza virus vacc ine, unspecified formulation Deirdre Quiñones MD Work Phone: [facility] 06-20-2010 pneumococcal polysaccharide vaccine, 23 valent Deirdre Quiñones MD Work Phone: [facility] 05-17-2009 novel influenza-H1N1 -09, all formulations Deirdre Quiñones MD Work Phone: [facility] 05-13-2009 influenza virus vacc ine, unspecified formulation Deirdre Quiñones MD Work Phone: [facility] 05-13-2008 influenza virus vacc ine, unspecified formulation Deirdre Quiñones MD Work Phone: [facility] Work Phone: 06-27-2007 influenza virus vacc ine, unspecified formulation Deirdre Quiñones MD Work Phone: [facility] 02-26-2007 tetanus toxoid, redu regis diphtheria toxoid, and acellular pertussis vaccine, adsorbed Deirdre Quiñones MD Work Phone: [facility] Work Phone: 05-24-2006 influenza virus vacc ine, unspecified formulation Deirdre Quiñones MD Work Phone: [facility] Payers Date Payer Category Payer Medicare (Managed Care) [employer] G O[employer] PLUS [id number] 2022 Private Health Insurance [id number] 2022 Self-pay [id number] 2021 Medicare HUMANA MEDICARE [employer]NA GOLD PLUS [id number] 2021-Present [phone] [place] [id number] [facility] [id number] 2021 Medicare [id number] Private Health Insurance [employer] [facility] [id number] Unknown [id number] Unknown [id number] Unknown [id number] Unknown [id number] Unknown [id number] Unknown [id number] Social History Date Type Detail Facility Start: 05-19-2018 End: 06-17-2024 Tobacco smoking status NHIS Smokes tobacco daily [facility] History of tobacco use Cigarette Smoker [facility] Work Phone: Start: 09-26-2021 End: 09-23-2024 Alcohol intake Current drinker of alcohol (finding) [facility] Start: 09-14-2020 End: 06-26-2022 History SDOH Alcohol Frequency 2 [facility] Start: 09-14-2020 End: 06-26-2022 History SDOH Alcohol Std Drinks 1 [facility] Start: 07-02-2007 History SDOH Alcohol Comment occasionally, 2 mixed drinks per month [facility] Start: 09-14-2020 End: 06-26-2022 History SDOH Social Connections Phone 5 [facility] Start: 09-14-2020 End: 06-26-2022 History SDOH Social Connections Scientologist 3 [facility] Start: 09-14-2020 End: 06-26-2022 History SDOH Financial 4 [facility] Start: 09-14-2020 Education 18 [facility] Start: 05-19-2018 End: 04-05-2022 Tobacco Comment Smoking 3 cigarettes per day [facility] Start: 1945 Sex Assigned At Not on file [facility] Start: 09-16-2021 End: 04-05-2022 Exposure to SARS-CoV-2 (event) Not sure [facility] Start: 11-22-2021 History SDOH Alcohol Std Drinks 98 [facility] Start: 05-19-2018 End: 04-29-2023 Cigarettes smoked current (pack per day) - Reported 0.3 [facility] Start: 05-19-2018 End: 06-17-2024 Tobacco use and exposure Smokeless tobacco non-user [facility] Start: 06-26-2022 History SDOH Alcohol Std Drinks 0 [facility] Start: 06-26-2022 End: 04-29-2023 Social connection and isolation panel [facility] Do you belong to any clubs or organizations such as restoration groups, unions, fraternal or athletic groups, or school groups? Yes [facility] Are you now , , , , never or living with a partner? [facility] Start: 06-08-2012 Frequency of Alcohol Consumption Not on file [facility] How often do you hav e 6 or more drinks on 1 occasion? Never [facility] How hard is it for y ou to pay for the very basics like food, housing, medical care, and heating Not very hard [facility] Do you feel stress - tense, restless, nervous, or anxious, or unable to sleep at night because your mind is troubled all the time - these days [OSQ] Only a little [facility] (I/We) worried jocelyne er (my/our) food would run out before (I/we) got money to buy more. Never true [facility] In the past 12 month s, was there a time when you were not able to pay the mortgage or rent on time? No [facility] Start: 02-22-2023 End: 04-19-2023 Tobacco smoking status NHIS Unknown if ever smoked [facility] Start: 1945 Sex Assigned At Female W [facility] How often to you hav e a drink containing alcohol? Monthly or less [facility] Functional Status Date Assessment Result Facility 05-13-2021 Are you deaf, or do you have serious difficulty hearing No 05/13/2021 11:32 AM Dalia Grimes, NURYS No [facility] 05-13-2021 Are you blind, or do you have serious difficulty seeing, even when wearing glasses No 05/13/2021 11:32 AM Dalia Grimes, NURYS No [facility] 05-13-2021 Do you have serious difficulty walking or climbing stairs No 05/13/2021 11:32 AM Dalia Grimes, RN No [facility] 05-13-2021 Do you have difficul ty dressing or bathing No 05/13/2021 11:32 AM Dalia Grimes, RN No [facility] 05-13-2021 Because of a physica l, mental, or emotional condition, do you have difficulty doing errands alone such as visiting a physician's office or shopping No 05/13/2021 11:32 AM EDT Dalia Gallardo RN No [facility] Mental Status Date Assessment Result Facility 05-13-2021 Because of a physica l, mental, or emotional condition, do you have serious difficulty concentrating, remembering, or making decisions No 05/13/2021 11:32 AM EDT Dalia Gallardo RN No [facility] Clinical Notes 05-13-2014 to 03-12-2025 Telephone Encounter - Jay Tran APRN.CNP - 03/12/2025 9:53 AM EDTTelephone Encounter - Jay Tran APRN.CNP - 03/12/2025 9:53 AM SHERINTCSilvia novoa CPhT - 12/03/2024 1:18 PM EDT Note Date & Type Note Facility 03-12-2025 Telephone encounter Note The following approved medication requests have been transmitted electronically. Requested Prescriptions Pending Prescriptions Disp Refills atorvastatin (LIPITOR) 10 mg tablet 90 tablet 3 Sig: Take 1 tablet by mouth once daily. lisinopril (ZESTRIL) 10 mg tablet 90 tablet 3 Sig: Take 1 tablet by mouth once daily. Jay Tran APRN.CNP [facility] 03-12-2025 Miscellaneous Notes The following approved medication requests have been transmitted electronically. Requested Prescriptions Pending Prescriptions Disp Refills atorvastatin (LIPITOR) 10 mg tablet 90 tablet 3 Sig: Take 1 tablet by mouth once daily. lisinopril (ZESTRIL) 10 mg tablet 90 tablet 3 Sig: Take 1 tablet by mouth once daily. Jay Tran APRN.CNP Prescription Refill Information The patient has been identified by name and date of : Yes Caregiver verified no other encounters exist for this prescription request: Yes Caregiver confirmed with patient/requestor that no other refills are due, in the near future, with this provider at this time: Yes The last office visit in the department: 09/23/2024 Does the patient have a future office visit with this provider/department: No Requested Prescriptions Pending Prescriptions Disp Refills atorvastatin (LIPITOR) 10 mg tablet 90 tablet 3 Sig: Take 1 tablet by mouth once daily. lisinopril (ZESTRIL) 10 mg tablet 90 tablet 3 Sig: Take 1 tablet by mouth once daily. [facility] March 12, 2025 9:09 AM Electronically signed by [facility] e[facility] at 03/12/2025 9:10 AM EDT documented in this encounter [facility] 03-12-2025 Telephone encounter Note Prescription Refill Information The patient has been identified by name and date of : Yes Caregiver verified no other encounters exist for this prescription request: Yes Caregiver confirmed with patient/requestor that no other refills are due, in the near future, with this provider at this time: Yes The last office visit in the department: 09/23/2024 Does the patient have a future office visit with this provider/department: No Requested Prescriptions Pending Prescriptions Disp Refills atorvastatin (LIPITOR) 10 mg tablet 90 tablet 3 Sig: Take 1 tablet by mouth once daily. lisinopril (ZESTRIL) 10 mg tablet 90 tablet 3 Sig: Take 1 tablet by mouth once daily. Irina [facility] March 12, 2025 9:09 AM Electronically signed by Elise [facility] eid at 03/12/2025 9:10 AM EDT [facility] 01-19-2025 Telephone encounter Note Approved. [facility] website checked and validated. All prescriptions have been APPROPRIATELY filled. No suspicious activity was identified. 01/19/2025 by Jay Tran APRN.CNP The following approved medication requests have been transmitted electronically. Requested Prescriptions Signed Prescriptions Disp Refills ALPRAZolam (XANAX) 0.5 mg tablet 60 tablet 2 Sig: Take 1 tablet by mouth two times a day as needed for up to 90 days. Authorizing Provider: JAY TRAN APRN.CNP [facility] 01-19-2025 Miscellaneous Notes Approved. PDMP website checked and validated. All prescriptions have been APPROPRIATELY filled. No suspicious activity was identified. 01/19/2025 by Jay Tran APRN.CNP The following approved medication requests have been transmitted electronically. Requested Prescriptions Signed Prescriptions Disp Refills ALPRAZolam (XANAX) 0.5 mg tablet 60 tablet 2 Sig: Take 1 tablet by mouth two times a day as needed for up to 90 days. Authorizing Provider: JAY TRAN APRN.CNP Prescription Refill Information The patient has been identified by name and date of : Yes Caregiver verified no other encounters exist for this prescription request: Yes Caregiver confirmed with patient/requestor that no other refills are due, in the near future, with this provider at this time: Yes The last office visit in the department: 09/23/24 Does the patient have a future office visit with this provider/department: No Requested Prescriptions Pending Prescriptions Disp Refills ALPRAZolam (XANAX) 0.5 mg tablet 60 tablet 2 Sig: Take 1 tablet by mouth two times a day as needed for up to 90 days. Steve Penny LPN January 19, 2025 10:40 AM documented in this encounter [facility] 01-19-2025 Telephone encounter Note Prescription Refill Information The patient has been identified by name and date of : Yes Caregiver verified no other encounters exist for this prescription request: Yes Caregiver confirmed with patient/requestor that no other refills are due, in the near future, with this provider at this time: Yes The last office visit in the department: 09/23/24 Does the patient have a future office visit with this provider/department: No Requested Prescriptions Pending Prescriptions Disp Refills ALPRAZolam (XANAX) 0.5 mg tablet 60 tablet 2 Sig: Take 1 tablet by mouth two times a day as needed for up to 90 days. Steve Penny LPN January 19, 2025 10:40 AM [facility] 12-03-2024 Note HNO ID: [id number] Author: SILVIA HOGUE CPhT Service: ? Author Type: Engraving Plate Maker Type: Progress Notes Filed: 12/03/2024 13:19 Note Text: Patient is identified through a medication adherence outreach initiative based on pharmacy claims data from: [employer] Medication Adherence Category: Hypertension First Review Attribution Status: Correct attribution Medication(s) Lisinopril 10 mg Medication Status per portal/Epic Reconcile Dispense: Filled late - Greater than 7 days after next fill date Date Filled (MM/DD): 11/20 Day Supply: 90 Medication Status per Profile Review: No issues per profile review Patient/provider appropriate for outreach? Yes Patient identified by name and Outreach to patient: Left Voicemail/message for return call What was primary intervention? No intervention Silvia Hogue CPhT [facility] 12-03-2024 History of Present illness Narrative Patient is identified through a medication adherence outreach initiative based on pharmacy claims data from: [employer] Medication Adherence Category: Hypertension First Review Attribution Status: Correct attribution Medication(s) Lisinopril 10 mg Medication Status per portal/Epic Reconcile Dispense: Filled late - Greater than 7 days after next fill date Date Filled (MM/DD): 11/20 Day Supply: 90 Medication Status per Profile Review: No issues per profile review Patient/provider appropriate for outreach? Yes Patient identified by name and Outreach to patient: Left Voicemail/message for return call What was primary intervention? No intervention Silvia Hogue CPhT [facility] Team documented in this encounter [facility] 12-03-2024 Note Patient Outreach ([facility] SHEREE CHAVEZ ([id number]) 1945 F Date Time Provider Department 12/03/24 DEIRDRE QUIÑONES During your visit today, we recorded the following information about you: Silvia Hogue CPhT 12/03/2024 1:19 PM Signed Patient is identified through a medication adherence outreach initiative based on pharmacy claims data from: [employer] Medication Adherence Category: Hypertension First Review Attribution Status: Correct attribution Medication(s) Lisinopril 10 mg Medication Status per portal/Epic Reconcile Dispense: Filled late - Greater than 7 days after next fill date Date Filled (MM/DD): 11/20 Day Supply: 90 Medication Status per Profile Review: No issues per profile review Patient/provider appropriate for outreach? Yes Patient identified by name and Outreach to patient: Left Voicemail/message for return call What was primary intervention? No intervention Silvia Hogue CPhT [facility] Pharm[facility] Team Allergies As of Date: 12/03/2024 Noted Allergy Reaction PALM OIL 08/20/2018 8 - GI Upset ACCUPRIL (QUINAPRIL HCL) 08/01/2006 14 - Other: See Comments Comments: Pt unsure why this is listed. Not sure what allergy is ASA (SALICYLATES) 04/20/2005 8 - GI Upset PENICILLINS 04/20/2005 4 - Hives VICODIN (HYDROCODONE-ACETAMINOPHE*04/20/20 05 8 - GI Upset BEES 09/07/2006 CODEINE 06/14/2005 5 - Intolerance DOXYCYCLINE 11/23/2021 8 - GI Upset METFORMIN 08/23/2015 8 - GI Upset Comments: diarrhea higher dose Date Reviewed: 09/23/2024 Reviewed by: Odalis Valentino LPN - Fully Assessed Prescriptions as of 12/03/2024 - OZEMPIC 0.25 mg or 0.5 mg (2 mg/3 mL) pen Inject 0.5 mg subcutaneously one time a week. - ALPRAZolam (XANAX) 0.5 mg tablet Take 1 tablet by mouth two times a day as needed for up to 90 days. - fluticasone (FLONASE) 50 mcg/actuation nasal spray Use 2 Sprays in each nostril once daily. Rinse mouth after use. - gabapentin (NEURONTIN) 100 mg capsule Take 1 capsule by mouth three times a day for 180 days. - loratadine (CLARITIN) 10 mg tablet Take 1 tablet by mouth once daily. - glimepiride (AMARYL) 4 mg tablet Take 1 tablet by mouth two times a day with meals. - acetaminophen (TYLENOL ARTHRITIS PAIN) 650 mg CR tablet Take 1 tablet by mouth every 8 hours as needed. - albuterol HFA (PROVENTIL HFA, VENTOLIN HFA) 90 mcg/actuation inhaler Inhale 2 Puffs as instructed every 6 hours as needed for wheezing/shortness of breath. - levothyroxine (SYNTHROID) 50 mcg tablet Take 1 tablet by mouth daily before breakfast. - FLUoxetine (PROZAC) 10 mg capsule Take 1 capsule by mouth every afternoon. - atorvastatin (LIPITOR) 10 mg tablet Take 1 tablet by mouth once daily. - lisinopril (ZESTRIL) 10 mg tablet Take 1 tablet by mouth once daily. - clindamycin (CLEOCIN) 300 mg capsule Take 1 capsule by mouth four times daily. - therapeutic multivitamin w/ iron (THERAGRAN-M) 27-0.4 mg tablet Take 1 tablet by mouth once daily. - cannabidiol, CBD, (CANNABIDIOL ORAL) Take 1-2 Each by mouth once daily. Pt reports taking 1-2 CBD gummies OTC daily for pain and muscle aches. Pt purchases these online and was unable to confirm the dose or brand. Pt does not report endorsement of this medication from a provider. - famotidine (PEPCID) 20 mg tablet Take 1 tablet by mouth at bedtime as needed. 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 Backache, unspecified [M54.9] 04/21/2013 Pain in thoracic spine [M54.6] 04/21/2013 Diabetes mellitus type 2, uncomplicated (HCC) [*05/13/2014 Uncontrolled type 2 diabetes mellitus with hype*08/25/2019 Subdural hematoma (HCC) [S06.5XAA] 05/11/2021 TBI (traumatic brain injury) (HCC) [S06.9XAA] 05/11/2021 Fall [W19.XXXA] 05/11/2021 Subarachnoid hemorrhage following injury, no lo*05/11/2021 Intracranial hemorrhage (HCC) [I62.9] 05/25/2021 Hypothyroidism [E03.9] 04/05/2022 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, M19.042] 04/05/2022 Traumatic subdural hemorrhage with loss of cons*06/17/2024 DM type 2 with diabetic mixed hyperlipidemia (H*06/17/2024 Encounter Status:Closed by SILVIA HOGUE on 12/03/24 [facility] 12-01-2024 Telephone encounter Note Images from the original note were not included. Electronic PA rec'd and completed for ozempic ANNY. This was completed and approved. Prior authorization approved Payer: [employer] PBM Part D [phone] Note from payer: Request Reference Number: [id number]. OZEMPIC INJ 2MG/3ML is approved through 07/07/2025. Your patient may now fill this prescription and it will be covered. Approval Details Authorization number: [id number] Authorized from December 01, 2024 to July 07, 2025 Electronic appeal: Not supported View History Notes Time User Attachment Attachment received from payer. 12/01/2024 8:31 AM [facility], Rx Priorauth In Document Medication Being Authorized OZEMPIC 0.25 mg or 0.5 mg (2 mg/3 mL) pen Inject 0.5 mg subcutaneously one time a week. Dispense: 3 mL Refills: 2 ANNY Start: 12/01/2024 End: 03/01/2025 Class: Normal Diagnoses: Type 2 diabetes mellitus without complication, without long-term current use of insulin (HCC) This order has been released to its destination. To be filled at: [id number] [place] [address] - [address] [phone] Pt notified via my chart. [facility] 12-01-2024 Miscellaneous Notes Images from the original note were not included. Electronic PA rec'd and completed for ozempic ANNY. This was completed and approved. Prior authorization approved Payer: [employer] PBM Part D [phone] Note from payer: Request Reference Number: [id number]. OZEMPIC INJ 2MG/3ML is approved through 07/07/2025. Your patient may now fill this prescription and it will be covered. Approval Details Authorization number: [id number] Authorized from December 01, 2024 to July 07, 2025 Electronic appeal: Not supported View History Notes Time User Attachment Attachment received from payer. 12/01/2024 8:31 AM [facility], Rx Priorauth In Document Medication Being Authorized OZEMPIC 0.25 mg or 0.5 mg (2 mg/3 mL) pen Inject 0.5 mg subcutaneously one time a week. Dispense: 3 mL Refills: 2 ANNY Start: 12/01/2024 End: 03/01/2025 Class: Normal Diagnoses: Type 2 diabetes mellitus without complication, without long-term current use of insulin (HCC) This order has been released to its destination. To be filled at: [id number] [place] [address] - [address] [facility] [facility] [phone] Pt notified via my chart. documented in this encounter [facility] 12-01-2024 Telephone encounter Note The following approved medication requests have been transmitted electronically. Requested Prescriptions Pending Prescriptions Disp Refills OZEMPIC 0.25 mg or 0.5 mg (2 mg/3 mL) pen 3 mL 2 Sig: Inject 0.5 mg subcutaneously one time a week. Jay Tran APRN.CNP [facility] 12-01-2024 Miscellaneous Notes The following approved medication requests have been transmitted electronically. Requested Prescriptions Pending Prescriptions Disp Refills OZEMPIC 0.25 mg or 0.5 mg (2 mg/3 mL) pen 3 mL 2 Sig: Inject 0.5 mg subcutaneously one time a week. Jay Tran APRN.CNP Prescription Refill Information The patient has been identified by name and date of : Yes Caregiver verified no other encounters exist for this prescription request: Yes Caregiver confirmed with patient/requestor that no other refills are due, in the near future, with this provider at this time: Yes The last office visit in the department: 09/23/2024 Does the patient have a future office visit with this provider/department: No Requested Prescriptions Pending Prescriptions Disp Refills OZEMPIC 0.25 mg or 0.5 mg (2 mg/3 mL) pen 3 mL 2 Sig: Inject 0.5 mg subcutaneously one time a week. Nirmala Blair LPN December 01, 2024 7:57 AM documented in this encounter [facility] 12-01-2024 Telephone encounter Note Prescription Refill Information The patient has been identified by name and date of : Yes Caregiver verified no other encounters exist for this prescription request: Yes Caregiver confirmed with patient/requestor that no other refills are due, in the near future, with this provider at this time: Yes The last office visit in the department: 09/23/2024 Does the patient have a future office visit with this provider/department: No Requested Prescriptions Pending Prescriptions Disp Refills OZEMPIC 0.25 mg or 0.5 mg (2 mg/3 mL) pen 3 mL 2 Sig: Inject 0.5 mg subcutaneously one time a week. Nirmala Blair LPN December 01, 2024 7:57 AM [facility] 11-02-2024 Note HNO ID: [id number] Author: ?, ?, ? Service: ? Author Type: ? Type: Progress Notes Filed: 11/02/2024 12:13 Note Text: POPULATION HEALTH NAVIGATION OUTREACH Action/FYI Patient outreach for HCC gaps; KED. Pt is due for the rest of their KED labs. Mychart sent to close gaps. Reason for Outreach Care Gap/HCC or Scheduling Wellness Visits Care Gaps due: KED Patient Contacted: Unable or unnecessary to reach patient: [employer] message sent HCC related Navigation Signature: Suze Reid November 02, 2024 12:12 PM [facility] 11-02-2024 Note Patient Outreach (NE TNAV) SHEREE CHAVEZ ([id number]) 1945 F Date Time Provider Department 11/02/24 DEIRDRE QUIÑONES During your visit today, we recorded the following information about you: Suze Crawford 11/02/2024 12:13 PM Signed POPULATION HEALTH NAVIGATION OUTREACH Action/FYI Patient outreach for HCC gaps; KED. Pt is due for the rest of their KED labs. Tistagameshart sent to close gaps. Reason for Outreach Care Gap/HCC or Scheduling Wellness Visits Care Gaps due: KED Patient Contacted: Unable or unnecessary to reach patient: [email or web address] message sent HCC related Navigation Signature: Suze Starkey Pss November 02, 2024 12:12 PM Allergies As of Date: 11/02/2024 Noted Allergy Reaction PALM OIL 08/20/2018 8 - GI Upset ACCUPRIL (QUINAPRIL HCL) 08/01/2006 14 - Other: See Comments Comments: Pt unsure why this is listed. Not sure what allergy is ASA (SALICYLATES) 04/20/2005 8 - GI Upset PENICILLINS 04/20/2005 4 - Hives VICODIN (HYDROCODONE-ACETAMINOPHE*04/20/20 05 8 - GI Upset BEES 09/07/2006 CODEINE 06/14/2005 5 - Intolerance DOXYCYCLINE 11/23/2021 8 - GI Upset METFORMIN 08/23/2015 8 - GI Upset Comments: diarrhea higher dose Date Reviewed: 09/23/2024 Reviewed by: Odalis Valentino LPN - Fully Assessed Reason for Visit: Population Health Navigation Outreach [3910] Cmt: Jackelin Dhaliwal Prescriptions as of 11/02/2024 - ALPRAZolam (XANAX) 0.5 mg tablet Take 1 tablet by mouth two times a day as needed for up to 90 days. - fluticasone (FLONASE) 50 mcg/actuation nasal spray Use 2 Sprays in each nostril once daily. Rinse mouth after use. - gabapentin (NEURONTIN) 100 mg capsule Take 1 capsule by mouth three times a day for 180 days. - loratadine (CLARITIN) 10 mg tablet Take 1 tablet by mouth once daily. - OZEMPIC 0.25 mg or 0.5 mg (2 mg/3 mL) pen Inject 0.5 mg subcutaneously one time a week. - glimepiride (AMARYL) 4 mg tablet Take 1 tablet by mouth two times a day with meals. - acetaminophen (TYLENOL ARTHRITIS PAIN) 650 mg CR tablet Take 1 tablet by mouth every 8 hours as needed. - albuterol HFA (PROVENTIL HFA, VENTOLIN HFA) 90 mcg/actuation inhaler Inhale 2 Puffs as instructed every 6 hours as needed for wheezing/shortness of breath. - levothyroxine (SYNTHROID) 50 mcg tablet Take 1 tablet by mouth daily before breakfast. - FLUoxetine (PROZAC) 10 mg capsule Take 1 capsule by mouth every afternoon. - atorvastatin (LIPITOR) 10 mg tablet Take 1 tablet by mouth once daily. - lisinopril (ZESTRIL) 10 mg tablet Take 1 tablet by mouth once daily. - clindamycin (CLEOCIN) 300 mg capsule Take 1 capsule by mouth four times daily. - therapeutic multivitamin w/ iron (THERAGRAN-M) 27-0.4 mg tablet Take 1 tablet by mouth once daily. - cannabidiol, CBD, (CANNABIDIOL ORAL) Take 1-2 Each by mouth once daily. Pt reports taking 1-2 CBD gummies OTC daily for pain and muscle aches. Pt purchases these online and was unable to confirm the dose or brand. Pt does not report endorsement of this medication from a provider. - famotidine (PEPCID) 20 mg tablet Take 1 tablet by mouth at bedtime as needed. 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/08/2013 Backache, unspecified [M54.9] 04/21/2013 Pain in thoracic spine [M54.6] 04/21/2013 Diabetes mellitus type 2, uncomplicated (HCC) [*05/13/2014 Uncontrolled type 2 diabetes mellitus with hype*08/25/2019 Subdural hematoma (HCC) [S06.5XAA] 05/11/2021 TBI (traumatic brain injury) (HCC) [S06.9XAA] 05/11/2021 Fall [W19.XXXA] 05/11/2021 Subarachnoid hemorrhage following injury, no lo*05/11/2021 Intracranial hemorrhage (HCC) [I62.9] 05/25/2021 Hypothyroidism [E03.9] 04/05/2022 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, M19.042] 04/05/2022 Traumatic subdural hemorrhage with loss of cons*06/17/2024 DM type 2 with diabetic mixed hyperlipidemia (H*06/17/2024 Encounter Status:Closed by SUZE CRAWFORD on 11/02/24 [facility] 10-23-2024 Note HNO ID: [id number] Author: DENISE EDWARD RN Service: ? Author Type: Registered Nurse Type: Progress Notes Filed: 10/23/2024 17:02 Note Text: CDM Care Path Telephonic Outreach Provider Action/FYI Patient identified by Name and Date of . Discussed care with patient. Program Details Chronic Disease Management Status: Enrolled Effective Dates: 09/11/2024 - present Responsible Staff: Denise Edward RN Support and Services: Hypertension, Diabetes Program Goals Targets Target Due Completed Completed By Outcome Comprehensive Diabetes education provided 12/14/2024 -- -- -- Comprehensive HTN education provided 12/14/2024 -- -- -- HTN lab care gaps addressed 12/14/2024 -- -- -- Patient-stated goal addressed (add comment) 12/14/2024 -- -- -- Annual Medicare Wellness visit addressed 12/14/2024 10/23/2024 Denise Edward RN Complete/Scheduled Biannual PCP visit addressed 12/14/2024 10/23/2024 Denise Edward RN Complete/Scheduled Diabetes lab care gaps addressed 12/14/2024 10/23/2024 Denise Edward RN Complete/Scheduled General education provided (managing stress, where to go/how to contact, etc.) 10/12/2024 09/11/2024 Denise Edward RN Complete Intake assessments completed: ADLs, Fall Risk, SDOH 10/12/2024 09/11/2024 Denise Edward RN Complete Assessments CDM Assessment Medications: Do you have any questions about taking your medications or which medications you should be taking?: No Do you need any medication refills at this time, including any of the medication you might take only when needed?: No Social: It can be normal to feel anxious or down during a time like this. Would you like to talk to a mental health professional about how you have been feeling?: No Symptoms: Are you experiencing any new or worsening symptoms that you need to talk about today?: No ADLs No documentation this encounter Fall Risk No documentation this encounter SDOH No documentation this encounter Interventions The following were addressed during this visit: - Diabetes lab care gaps addressed - Biannual PCP visit addressed - Annual Medicare Wellness visit addressed - Bi-Weekly Outreach (Recurring) Disposition Based on robotics mechanic, the following disposition is advised: No action needed Denise Edward RN October 23, 2024 5:01 PM [facility] 10-23-2024 History of Present illness Narrative Images from the original note were not included. CDM Care Path Telephonic Outreach Provider Action/FYI Patient identified by Name and Date of . Discussed care with patient. Program Details Chronic Disease Management Status: Enrolled Effective Dates: 09/11/2024 - present Responsible Staff: Denise Edward RN Support and Services: Hypertension, Diabetes Program Goals Targets Target Due Completed Completed By Outcome Comprehensive Diabetes education provided 12/14/2024 -- -- -- Comprehensive HTN education provided 12/14/2024 -- -- -- HTN lab care gaps addressed 12/14/2024 -- -- -- Patient-stated goal addressed (add comment) 12/14/2024 -- -- -- Annual Medicare Wellness visit addressed 12/14/2024 10/23/2024 Denise Edward RN Complete/Scheduled Biannual PCP visit addressed 12/14/2024 10/23/2024 Denise Edward RN Complete/Scheduled Diabetes lab care gaps addressed 12/14/2024 10/23/2024 Denise Edward RN Complete/Scheduled General education provided (managing stress, where to go/how to contact, etc.) 10/12/2024 09/11/2024 Denise M Wagner, RN Complete Intake assessments completed: ADLs, Fall Risk, SDOH 10/12/2024 09/11/2024 Denise Edward RN Complete Assessments CDM Assessment Medications: Do you have any questions about taking your medications or which medications you should be taking?: No Do you need any medication refills at this time, including any of the medication you might take only when needed?: No Social: It can be normal to feel anxious or down during a time like this. Would you like to talk to a mental health professional about how you have been feeling?: No Symptoms: Are you experiencing any new or worsening symptoms that you need to talk about today?: No ADLs No documentation this encounter Fall Risk No documentation this encounter SDOH No documentation this encounter Interventions The following were addressed during this visit: - Diabetes lab care gaps addressed - Biannual PCP visit addressed - Annual Medicare Wellness visit addressed - Bi-Weekly Outreach (Recurring) Disposition Based on robotics mechanic, the following disposition is advised: No action needed Denise Edward RN October 23, 2024 5:01 PM documented in this encounter [facility] 10-23-2024 Note Patient Outreach ([facility] SHEREE CHAVEZ ([id number]) 1945 F Date Time Provider Department 10/23/24 DENISE EDWARD AMBKENYAG During your visit today, we recorded the following information about you: Denise Edward RN 10/23/2024 5:02 PM Signed CD Care Path Telephonic Outreach Provider Action/ Patient identified by Name and Date of . Discussed care with patient. Program Details Chronic Disease Management Status: Enrolled Effective Dates: 09/11/2024 - present Responsible Staff: Denise Edward, RN Support and Services: Hypertension, Diabetes Program Goals Targets Target Due Completed Completed By Outcome Comprehensive Diabetes education provided 12/14/2024 -- -- -- Comprehensive HTN education provided 12/14/2024 -- -- -- HTN lab care gaps addressed 12/14/2024 -- -- -- Patient-stated goal addressed (add comment) 12/14/2024 -- -- -- Annual Medicare Wellness visit addressed 12/14/2024 10/23/2024 Denise Edward RN Complete/Scheduled Biannual PCP visit addressed 12/14/2024 10/23/2024 Denise Edward RN Complete/Scheduled Diabetes lab care gaps addressed 12/14/2024 10/23/2024 Denise Edward RN Complete/Scheduled General education provided (managing stress, where to go/how to contact, etc.) 10/12/2024 09/11/2024 Denise Edward RN Complete Intake assessments completed: ADLs, Fall Risk, SDOH 10/12/2024 09/11/2024 Denise Edward RN Complete Assessments CDM Assessment Medications: Do you have any questions about taking your medications or which medications you should be taking?: No Do you need any medication refills at this time, including any of the medication you might take only when needed?: No Social: It can be normal to feel anxious or down during a time like this. Would you like to talk to a mental health professional about how you have been feeling?: No Symptoms: Are you experiencing any new or worsening symptoms that you need to talk about today?: No ADLs No documentation this encounter Fall Risk No documentation this encounter SDOH No documentation this encounter Interventions The following were addressed during this visit: - Diabetes lab care gaps addressed - Biannual PCP visit addressed - Annual Medicare Wellness visit addressed - Bi-Weekly Outreach (Recurring) Disposition Based on robotics mechanic, the following disposition is advised: No action needed Denise Edward RN October 23, 2024 5:01 PM Allergies As of Date: 10/23/2024 Noted Allergy Reaction PALM OIL 08/20/2018 8 - GI Upset ACCUPRIL (QUINAPRIL HCL) 08/01/2006 14 - Other: See Comments Comments: Pt unsure why this is listed. Not sure what allergy is ASA (SALICYLATES) 04/20/2005 8 - GI Upset PENICILLINS 04/20/2005 4 - Hives VICODIN (HYDROCODONE-ACETAMINOPHE*04/20/20 05 8 - GI Upset BEES 09/07/2006 CODEINE 06/14/2005 5 - Intolerance DOXYCYCLINE 11/23/2021 8 - GI Upset METFORMIN 08/23/2015 8 - GI Upset Comments: diarrhea higher dose Date Reviewed: 09/23/2024 Reviewed by: Odalis Valentino LPN - Fully Assessed Prescriptions as of 10/23/2024 - ALPRAZolam (XANAX) 0.5 mg tablet Take 1 tablet by mouth two times a day as needed for up to 90 days. - fluticasone (FLONASE) 50 mcg/actuation nasal spray Use 2 Sprays in each nostril once daily. Rinse mouth after use. - gabapentin (NEURONTIN) 100 mg capsule Take 1 capsule by mouth three times a day for 180 days. - loratadine (CLARITIN) 10 mg tablet Take 1 tablet by mouth once daily. - OZEMPIC 0.25 mg or 0.5 mg (2 mg/3 mL) pen Inject 0.5 mg subcutaneously one time a week. - glimepiride (AMARYL) 4 mg tablet Take 1 tablet by mouth two times a day with meals. - acetaminophen (TYLENOL ARTHRITIS PAIN) 650 mg CR tablet Take 1 tablet by mouth every 8 hours as needed. - albuterol HFA (PROVENTIL HFA, VENTOLIN HFA) 90 mcg/actuation inhaler Inhale 2 Puffs as instructed every 6 hours as needed for wheezing/shortness of breath. - levothyroxine (SYNTHROID) 50 mcg tablet Take 1 tablet by mouth daily before breakfast. - FLUoxetine (PROZAC) 10 mg capsule Take 1 capsule by mouth every afternoon. - atorvastatin (LIPITOR) 10 mg tablet Take 1 tablet by mouth once daily. - lisinopril (ZESTRIL) 10 mg tablet Take 1 tablet by mouth once daily. - clindamycin (CLEOCIN) 300 mg capsule Take 1 capsule by mouth four times daily. - therapeutic multivitamin w/ iron (THERAGRAN-M) 27-0.4 mg tablet Take 1 tablet by mouth once daily. - cannabidiol, CBD, (CANNABIDIOL ORAL) Take 1-2 Each by mouth once daily. Pt reports taking 1-2 CBD gummies OTC daily for pain and muscle aches. Pt purchases these online and was unable to confirm the dose or brand. Pt does not report endorsement of this medication from a provider. - famotidine (PEPCID) 20 mg tablet Take 1 tablet by mouth at bedtime as needed. Meds Comments as of 05/19/2018: Takes Multi-vitami (more content not included)... [facility] 10-19-2024 Telephone encounter Note OK to refill as ordered Deirdre Quiñones MD [facility] 10-19-2024 Miscellaneous Notes OK to refill as ordered Deirdre Quiñones MD The patient has been identified by name and date of : Yes Caregiver verified no other encounters exist for this prescription request: Yes Caregiver confirmed with patient/requestor that no other refills are due, in the near future, with this provider at this time: Yes The last office visit in the department: 09/23/2024 Does the patient have a future office visit with this provider/department: No Visit date not found Requested Prescriptions Pending Prescriptions Disp Refills ALPRAZolam (XANAX) 0.5 mg tablet 60 tablet 2 Sig: Take 1 tablet by mouth two times a day as needed for up to 90 days. Marcela Ross RN October 19, 2024 6:24 PM documented in this encounter [facility] 10-19-2024 Telephone encounter Note The patient has been identified by name and date of : Yes Caregiver verified no other encounters exist for this prescription request: Yes Caregiver confirmed with patient/requestor that no other refills are due, in the near future, with this provider at this time: Yes The last office visit in the department: 09/23/2024 Does the patient have a future office visit with this provider/department: No Visit date not found Requested Prescriptions Pending Prescriptions Disp Refills ALPRAZolam (XANAX) 0.5 mg tablet 60 tablet 2 Sig: Take 1 tablet by mouth two times a day as needed for up to 90 days. Marcela Ross RN October 19, 2024 6:24 PM [facility] 10-16-2024 Telephone encounter Note Telephoned the patient to schedule a new Primary Care pharmacy appt. Left a message. Made two attempts to contact the patient. Patient was sent [employer] message. If the patient returns a call, an appt will be scheduled. Encounter routed to the clinical pharmacist. [facility] 10-16-2024 Miscellaneous Notes Telephoned the patient to schedule a new Primary Care pharmacy appt. Left a message. Made two attempts to contact the patient. Patient was sent [employer] message. If the patient returns a call, an appt will be scheduled. Encounter routed to the clinical pharmacist. Telephoned the patient to schedule a new Primary Care pharmacy appt. Left a message. documented in this encounter [facility] 10-14-2024 Telephone encounter Note Telephoned the patient to schedule a new Primary Care pharmacy appt. Left a message. [facility] 10-13-2024 History of Present illness Narrative Primary Care Pharmacy Panel Management This patient has been identified through Specialty Integration/Value-Based Operations Diabetes Registry Review by the primary care pharmacy team. Please contact patient and schedule a pharmacy in-person, phone, or virtual visit for diabetes management. Please use New Pharmacy, New Pharmacy Phone call, or Video Primary New visit types. Thank you, Mesfin Callahan PharmD, ANAYA documented in this encounter [facility] 10-13-2024 Note HNO ID: [id number] Author: MESFIN CALLAHAN RPh Service: ? Author Type: Pharmacist Type: Progress Notes Filed: 10/13/2024 11:21 Note Text: Primary Care Pharmacy Panel Management This patient has been identified through Specialty Integration/Value-Based Operations Diabetes Registry Review by the primary care pharmacy team. Please contact patient and schedule a pharmacy in-person, phone, or virtual visit for diabetes management. Please use New Pharmacy, New Pharmacy Phone call, or Video Primary New visit types. Thank you, Mesfin Callahan PharmD, ANAYA [facility] 10-13-2024 Note Patient Outreach (PM STOW) SHEREE CHAVEZ ([id number]) 1945 F Date Time Provider Department 10/13/24 MESFIN CALLAHAN PMSTOW During your visit today, we recorded the following information about you: Mesfin Callahan RPh 10/13/2024 11:21 AM Addendum Primary Care Pharmacy Panel Management This patient has been identified through Specialty Integration/Value-Based Operations Diabetes Registry Review by the primary care pharmacy team. Please contact patient and schedule a pharmacy in-person, phone, or virtual visit for diabetes management. Please use New Pharmacy, New Pharmacy Phone call, or Video Primary New visit types. Thank you, Mesfin Callahan PharmD, ANAYA Allergies As of Date: 10/13/2024 Noted Allergy Reaction PALM OIL 08/20/2018 8 - GI Upset ACCUPRIL (QUINAPRIL HCL) 08/01/2006 14 - Other: See Comments Comments: Pt unsure why this is listed. Not sure what allergy is ASA (SALICYLATES) 04/20/2005 8 - GI Upset PENICILLINS 04/20/2005 4 - Hives VICODIN (HYDROCODONE-ACETAMINOPHE*04/20/20 05 8 - GI Upset BEES 09/07/2006 CODEINE 06/14/2005 5 - Intolerance DOXYCYCLINE 11/23/2021 8 - GI Upset METFORMIN 08/23/2015 8 - GI Upset Comments: diarrhea higher dose Date Reviewed: 09/23/2024 Reviewed by: Odalis Valentino LPN - Fully Assessed Reason for Visit: Care Coordination [0931] Cmt: Referred to Pharmacy for Diabetes Management Primary Visit Diagnosis:Type 2 diabetes mellitus with other specified complication, without long-term current use of insulin (HCC) [E11.69] Order(s):CONSULT TO PHARMACY [105931] Order #: [id number]: 1 Prescriptions as of 10/13/2024 - fluticasone (FLONASE) 50 mcg/actuation nasal spray Use 2 Sprays in each nostril once daily. Rinse mouth after use. - gabapentin (NEURONTIN) 100 mg capsule Take 1 capsule by mouth three times a day for 180 days. - loratadine (CLARITIN) 10 mg tablet Take 1 tablet by mouth once daily. - OZEMPIC 0.25 mg or 0.5 mg (2 mg/3 mL) pen Inject 0.5 mg subcutaneously one time a week. - ALPRAZolam (XANAX) 0.5 mg tablet Take 1 tablet by mouth two times a day as needed for up to 90 days. - glimepiride (AMARYL) 4 mg tablet Take 1 tablet by mouth two times a day with meals. - acetaminophen (TYLENOL ARTHRITIS PAIN) 650 mg CR tablet Take 1 tablet by mouth every 8 hours as needed. - albuterol HFA (PROVENTIL HFA, VENTOLIN HFA) 90 mcg/actuation inhaler Inhale 2 Puffs as instructed every 6 hours as needed for wheezing/shortness of breath. - levothyroxine (SYNTHROID) 50 mcg tablet Take 1 tablet by mouth daily before breakfast. - FLUoxetine (PROZAC) 10 mg capsule Take 1 capsule by mouth every afternoon. - atorvastatin (LIPITOR) 10 mg tablet Take 1 tablet by mouth once daily. - lisinopril (ZESTRIL) 10 mg tablet Take 1 tablet by mouth once daily. - clindamycin (CLEOCIN) 300 mg capsule Take 1 capsule by mouth four times daily. - therapeutic multivitamin w/ iron (THERAGRAN-M) 27-0.4 mg tablet Take 1 tablet by mouth once daily. - cannabidiol, CBD, (CANNABIDIOL ORAL) Take 1-2 Each by mouth once daily. Pt reports taking 1-2 CBD gummies OTC daily for pain and muscle aches. Pt purchases these online and was unable to confirm the dose or brand. Pt does not report endorsement of this medication from a provider. - famotidine (PEPCID) 20 mg tablet Take 1 tablet by mouth at bedtime as needed. 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.*04/08/2013 Backache, unspecified [M54.9] 04/21/2013 Pain in thoracic spine [M54.6] 04/21/2013 Diabetes mellitus type 2, uncomplicated (HCC) [*05/13/2014 Uncontrolled type 2 diabetes mellitus with hype*08/25/2019 Subdural hematoma (HCC) [S06.5XAA] 05/11/2021 TBI (traumatic brain injury) (HCC) [S06.9XAA] 05/11/2021 Fall [W19.XXXA] 05/11/2021 Subarachnoid hemorrhage following injury, no lo*05/11/2021 Intracranial hemorrhage (HCC) [I62.9] 05/25/2021 Hypothyroidism [E03.9] 04/05/2022 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, M19.042] 04/05/2022 Traumatic subdural hemorrhage with loss of cons*06/17/2024 DM type 2 with diabetic mixed hyperlipidemia (H*06/17/2024 Encounter Status:Closed by MESFIN CALLAHAN on 10/13/24 [facility] 09-25-2024 Telephone encounter Note The following approved medication requests have been transmitted electronically. Requested Prescriptions Pending Prescriptions Disp Refills fluticasone (FLONASE) 50 mcg/actuation nasal spray 16 mL 3 Sig: Use 2 Sprays in each nostril once daily. Rinse mouth after use. gabapentin (NEURONTIN) 100 mg capsule 90 capsule 5 Sig: Take 1 capsule by mouth three times a day for 180 days. loratadine (CLARITIN) 10 mg tablet 90 tablet 3 Sig: Take 1 tablet by mouth once daily. OZEMPIC 0.25 mg or 0.5 mg (2 mg/3 mL) pen 3 mL 2 Sig: Inject 0.5 mg subcutaneously one time a week. Jay Tran APRN.CNP [facility] 09-25-2024 Miscellaneous Notes The following approved medication requests have been transmitted electronically. Requested Prescriptions Pending Prescriptions Disp Refills fluticasone (FLONASE) 50 mcg/actuation nasal spray 16 mL 3 Sig: Use 2 Sprays in each nostril once daily. Rinse mouth after use. gabapentin (NEURONTIN) 100 mg capsule 90 capsule 5 Sig: Take 1 capsule by mouth three times a day for 180 days. loratadine (CLARITIN) 10 mg tablet 90 tablet 3 Sig: Take 1 tablet by mouth once daily. OZEMPIC 0.25 mg or 0.5 mg (2 mg/3 mL) pen 3 mL 2 Sig: Inject 0.5 mg subcutaneously one time a week. Jay Tran APRN.CNP Patient called stating that the script that were sent to [facility] pharmacy should have been sent to [facility] and not [facility]. Script pended and correct pharmacy selected. documented in this encounter [facility] 09-25-2024 Telephone encounter Note Patient called stating that the script that were sent to [facility] pharmacy should have been sent to [facility] and not [facility]. Script pended and correct pharmacy selected. [facility] 09-24-2024 Note HNO ID: [id number] Author: SCARLETT STONE MA Service: ? Author Type: Lock Master Type: Progress Notes Filed: 09/24/2024 14:22 Note Text: POPULATION HEALTH NAVIGATION OUTREACH Action/FYI msg to schedule wellness, hcc gap closure, follow up, ked/ cmp done 2024 and uacr not pended as I didn't speak to the patient Reason for Outreach Care Gap/HCC or Scheduling Wellness Visits Care Gaps due: Medicare Annual Wellness Visit Follow-up Appointment [facility] Patient Contacted: Unable or unnecessary to reach patient: Unable to leave message [employer] message sent HCC related Navigation Signature: Scarlett Stone MA September 24, 2024 2:20 PM [facility] 09-24-2024 History of Present illness Narrative POPULATION HEALTH NAVIGATION OUTREACH Action/FYI msg to schedule wellness, hcc gap closure, follow up, ked/ cmp done 2024 and uacr not pended as I didn't speak to the patient Reason for Outreach Care Gap/HCC or Scheduling Wellness Visits Care Gaps due: Medicare Annual Wellness Visit Follow-up Appointment [facility] Patient Contacted: Unable or unnecessary to reach patient: Unable to leave message [employer] message sent HCC related Navigation Signature: Scarlett Stone MA September 24, 2024 2:20 PM documented in this encounter [facility] 09-24-2024 Note Patient Outreach (NE TNAV) SHEREE CHAVEZ ([id number]) 1945 F Date Time Provider Department 09/24/24 SCARLETT STONE During your visit today, we recorded the following information about you: Scarlett Stone MA 09/24/2024 2:22 PM Signed POPULATION HEALTH NAVIGATION OUTREACH Action/FYI msg to schedule wellness, hcc gap closure, follow up, ked/ cmp done 2024 and uacr not pended as I didn't speak to the patient Reason for Outreach Care Gap/HCC or Scheduling Wellness Visits Care Gaps due: Medicare Annual Wellness Visit Follow-up Appointment [facility] Patient Contacted: Unable or unnecessary to reach patient: Unable to leave message [employer] message sent HCC related Navigation Signature: Scarlett Stone MA September 24, 2024 2:20 PM Allergies As of Date: 09/24/2024 Noted Allergy Reaction PALM OIL 08/20/2018 8 - GI Upset ACCUPRIL (QUINAPRIL HCL) 08/01/2006 14 - Other: See Comments Comments: Pt unsure why this is listed. Not sure what allergy is ASA (SALICYLATES) 04/20/2005 8 - GI Upset PENICILLINS 04/20/2005 4 - Hives VICODIN (HYDROCODONE-ACETAMINOPHE*04/20/20 05 8 - GI Upset BEES 09/07/2006 CODEINE 06/14/2005 5 - Intolerance DOXYCYCLINE 11/23/2021 8 - GI Upset METFORMIN 08/23/2015 8 - GI Upset Comments: diarrhea higher dose Date Reviewed: 09/23/2024 Reviewed by: Odalis Valentino LPN - Fully Assessed Reason for Visit: Population Health Navigation Outreach [3910] Cmt: jackelin dhaliwal Prescriptions as of 09/24/2024 - fluticasone (FLONASE) 50 mcg/actuation nasal spray Use 2 Sprays in each nostril once daily. Rinse mouth after use. - gabapentin (NEURONTIN) 100 mg capsule Take 1 capsule by mouth three times a day for 180 days. - OZEMPIC 0.25 mg or 0.5 mg (2 mg/3 mL) pen Inject 0.5 mg subcutaneously one time a week. - loratadine (CLARITIN) 10 mg tablet Take 1 tablet by mouth once daily. - ALPRAZolam (XANAX) 0.5 mg tablet Take 1 tablet by mouth two times a day as needed for up to 90 days. - glimepiride (AMARYL) 4 mg tablet Take 1 tablet by mouth two times a day with meals. - acetaminophen (TYLENOL ARTHRITIS PAIN) 650 mg CR tablet Take 1 tablet by mouth every 8 hours as needed. - albuterol HFA (PROVENTIL HFA, VENTOLIN HFA) 90 mcg/actuation inhaler Inhale 2 Puffs as instructed every 6 hours as needed for wheezing/shortness of breath. - levothyroxine (SYNTHROID) 50 mcg tablet Take 1 tablet by mouth daily before breakfast. - FLUoxetine (PROZAC) 10 mg capsule Take 1 capsule by mouth every afternoon. - atorvastatin (LIPITOR) 10 mg tablet Take 1 tablet by mouth once daily. - lisinopril (ZESTRIL) 10 mg tablet Take 1 tablet by mouth once daily. - clindamycin (CLEOCIN) 300 mg capsule Take 1 capsule by mouth four times daily. - therapeutic multivitamin w/ iron (THERAGRAN-M) 27-0.4 mg tablet Take 1 tablet by mouth once daily. - cannabidiol, CBD, (CANNABIDIOL ORAL) Take 1-2 Each by mouth once daily. Pt reports taking 1-2 CBD gummies OTC daily for pain and muscle aches. Pt purchases these online and was unable to confirm the dose or brand. Pt does not report endorsement of this medication from a provider. - famotidine (PEPCID) 20 mg tablet Take 1 tablet by mouth at bedtime as needed. Meds Comments as of 05/19/2018: Takes Multi-vitamin and extra C Problem List As Of Date 09/24/2024 Noted Resolved Essential hypertension, benign [I10] 05/13/2014 DIABETES MELLITUS TYPE II-UNCOMPL [E11.9] 05/13/2014 Mixed hyperlipidemia [E78.2] Anxiety state [F41.1] CALCANEAL SPUR [M77.30] 07/14/2007 SKIN ANOMALY NEC [Q82.8] 11/13/2007 BENIGN NEOPLASM LG BOWEL [D12.6] 01/21/2008 INT HEMORRHOID W/O COMPL [K64.8] 01/21/2008 DIVERTICULOSIS OF COLON W/O BLEED [K57.30] 01/21/2008 Hypertension [I10] 05/01/2012 DDD (degenerative disc disease), thoracic [M51.*04/08/2013 Backache, unspecified [M54.9] 04/21/2013 Pain in thoracic spine [M54.6] 04/21/2013 Diabetes mellitus type 2, uncomplicated (HCC) [*05/13/2014 Uncontrolled type 2 diabetes mellitus with hype*08/25/2019 Subdural hematoma (HCC) [S06.5XAA] 05/11/2021 TBI (traumatic brain injury) (HCC) [S06.9XAA] 05/11/2021 Fall [W19.XXXA] 05/11/2021 Subarachnoid hemorrhage following injury, no lo*05/11/2021 Intracranial hemorrhage (HCC) [I62.9] 05/25/2021 Hypothyroidism [E03.9] 04/05/2022 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, M19.042] 04/05/2022 Traumatic subdural hemorrhage with loss of cons*06/17/2024 DM type 2 with diabetic mixed hyperlipidemia (H*06/17/2024 Encounter Status:Closed by SCARLETT STONE on 09/24/24 [facility] 09-23-2024 Instructions Silvia Vazquez APRN.CNP - 09/23/2024 9:35 AM EDT Get repeat fasting labs completed prior to next visit Increase Ozempic to 0.5 mg once weekly Continue with low carb diet, increase protein and vegetable intake May consider Dora or Dexcom, glucose monitor Follow up in 3 months or sooner as needed documented in this encounter [facility] 09-23-2024 History of Present illness Narrative This is a 78 year old female who presents today with: Patient presents with: Follow Up: 3 month follow up with labs HISTORY OF PRESENT ILLNESS: Sheree Chavez is a 78 year old female. Patient presents with: Follow Up: 3 month follow up with labs 3 month follow up Sciatica pain, right side. Has seen pain management in the past, Dr. Toribio. Has had injections in the past. Has been trying to stretch. Taking Gabapentin 100 mg TID. DM: Reports overall feeling well. Medication side effects: No. Home sugar checks: Has not been checking glucose at home Hypoglycemic spells: No. Watching diet: Yes. Needs to improve diet. Unexpected weight loss: No. Polyuria, polydipsia: No. Vision Changes: No. Foot lesions or numbness or pain: No.' Last A1c 11.4, now 9.4 . Was taking glimepiride 4 mg BID but stopped due to low blood sugar. Not using a glucometer but a smart watch. Last office visit started on Ozempic 0.25 mg once weekly. Had Eye exam. Working on lifestyle changes at home. HTN: Denies checking BP at home or having chest pain or sob.Taking Lisinopril 10 mg once daily. Denies chest pain, palpitations, dizziness, or edema. Anxiety: Taking Xanax 0.5 mg 1 tab po 1-2 tabs daily. Stopped taking Prozac 10 mg once daily. Did not feel like Prozac was working. She reports that the Xanax is helping her, she is feeling better. Thyroid: Taking Levothyroxine 50 mcg once daily. Denies any missed dosages. Lipids: Denies any issues with current regimen of Lipitor 10 mg once daily. Smoking PAST MEDICAL HISTORY: PAST MEDICAL HISTORY Diagnosis Date Absence of menstruation Anxiety state, unspecified Benign neoplasm of colon Diverticulosis of colon (without mention of hemorrhage) Esophageal reflux Essential hypertension, benign Internal hemorrhoids without mention of complication Mental disorder Obesity, unspecified Other and unspecified hyperlipidemia Type II or unspecified type diabetes mellitus without mention of complication, not stated as uncontrolled PAST SURGICAL HISTORY Procedure Laterality Date BIOPSY BREAST OPEN INCISIONAL Bx of breast, incisional COLONOSCOPY FLX DX W/COLLJ SPEC WHEN PFRMD 02/21/15 Colonoscopy COLSC FLX W/RMVL OF TUMOR POLYP LESION SNARE TQ 01/21/08 DESTRUCTION BENIGN LESIONS UP TO 14 5/8/08 Partially avulsed SK left upper arm PAST SURGICAL HISTORY OF RIGHT TRIGGER THUMB PAST SURGICAL HISTORY OF 06/20 cataract revision; bilateral eyes PAST SURGICAL HISTORY OF Bilateral 2015 Cataract surgery ALLERGIES Palm Oil, Accupril [Quinapril Hcl], Asa [Salicylates], Penicillins, Vicodin [Hydrocodone-Acetaminophen], Bees, Codeine, Doxycycline, and Metformin MEDICATIONS Current Outpatient Medications Medication Sig ALPRAZolam (XANAX) 0.5 mg tablet Take 1 tablet by mouth two times a day as needed for up to 90 days. glimepiride (AMARYL) 4 mg tablet Take 1 tablet by mouth two times a day with meals. acetaminophen (TYLENOL ARTHRITIS PAIN) 650 mg CR tablet Take 1 tablet by mouth every 8 hours as needed. albuterol HFA (PROVENTIL HFA, VENTOLIN HFA) 90 mcg/actuation inhaler Inhale 2 Puffs as instructed every 6 hours as needed for wheezing/shortness of breath. levothyroxine (SYNTHROID) 50 mcg tablet Take 1 tablet by mouth daily before breakfast. FLUoxetine (PROZAC) 10 mg capsule Take 1 capsule by mouth every afternoon. atorvastatin (LIPITOR) 10 mg tablet Take 1 tablet by mouth once daily. gabapentin (NEURONTIN) 100 mg capsule Take 1 capsule by mouth three times a day for 180 days. loratadine (CLARITIN) 10 mg tablet Take 1 tablet by mouth once daily. lisinopril (ZESTRIL) 10 mg tablet Take 1 tablet by mouth once daily. fluticasone (FLONASE) 50 mcg/actuation nasal spray Use 2 Sprays in each nostril once daily. Rinse mouth after use. clindamycin (CLEOCIN) 300 mg capsule Take 1 capsule by mouth four times daily. therapeutic multivitamin w/ iron (THERAGRAN-M) 27-0.4 mg tablet Take 1 tablet by mouth once daily. cannabidiol, CBD, (CANNABIDIOL ORAL) Take 1-2 Each by mouth once daily. Pt reports taking 1-2 CBD gummies OTC daily for pain and muscle aches. Pt purchases these online and was unable to confirm the dose or brand. Pt does not report endorsement of this medication from a provider. famotidine (PEPCID) 20 mg tablet Take 1 tablet by mouth at bedtime as needed. No current facility-administered medications for this visit. FAMILY HISTORY Problem Relation Age of Onset Cancer Father LIVER Heart Father CABG Heart Mother Osteoporosis Mother Diabetes Paternal Grandmother Breast Cancer Maternal Aunt Social History Tobacco Use Smoking status: Every Day Current packs/day: 0.25 Average packs/day: 0.3 packs/day for 30.0 years (7.5 ttl pk-yrs) Types: Cigarettes Smokeless tobacco: Never Tobacco comments: Smoking 3 cigarettes per day Vaping Use Vaping status: Never Used Substance Use Topics Alcohol use: Yes Comment: occasionally, 2 mixed drinks per month Drug use: No REVIEW OF SYSTEMS GENERAL: No weight loss, malaise or fevers/chills HEENT: Negative for frequent or significant headaches, No changes in hearing or vision. NECK: Negative for lumps, goiter, pain and significant neck swelling RESPIRATORY: Negative for cough, hemoptysis, wheezing, dyspnea or shortness of breath CARDIOVASCULAR: Negative for chest pain, leg swelling, orthopnea, or palpitations GI: No nausea, vomiting, or diarrhea/constipation. No hematochezia/melena. No heartburn or reflux symptoms. : No history of dysuria, frequency or incontinence MUSCULOSKELETAL: Negative for joint pain or swelling. SKIN: Negative for lesions, rash, and itching ENDOCRINE: Negative for cold or heat intolerance, polyuria, polydipsia and goiter NEURO: No history of headaches, syncope, paralysis, seizures or tremors MOOD: Negative for depression, anxiety, or suicidal ideation. EXAM: BP 110/70 Pulse 85 Resp 16 Wt 76.4 kg (168 lb 6.9 oz) SpO2 96% BMI 31.68 kg/m PHYSICAL EXAM: General Appearance: Well appearing, alert, in no acute distress, well-hydrated, well nourished. Skin: Skin color, texture, turgor normal, no suspicious rashes or lesions. Head: Normocephalic, no masses, lesions, tenderness or abnormalities. Eyes: Anicteric sclera. Extraocular movements are intact. Lungs: Lungs clear to auscultation. No wheezing, rhonchi, rales. Heart: RRR without murmur, gallop, or rubs. No ectopy. Extremities: No deformities, edema, skin discoloration, clubbing or cyanosis. Good capillary refill. Peripheral Pulses: Normal, Capillary refill <2secs, strong peripheral pulses, Pulses palpable. Neurologic: Gait normal. Sensation grossly intact. Latest Ref Rng 09/21/2024 Protein, Total 6.3 - 8.0 g/dL 7.0 Albumin 3.9 - 4.9 g/dL 4.0 Calcium 8.5 - 10.2 mg/dL 10.1 Bilirubin, Total 0.2 - 1.3 mg/dL 0.4 Alkaline Phosphatase 34 - 123 U/L 27 (L) AST 13 - 35 U/L 22 ALT 7 - 38 U/L 21 Glucose 74 - 99 mg/dL 227 (H) BUN 7 - 21 mg/dL 15 Creatinine 0.58 - 0.96 mg/dL 0.73 Sodium 136 - 144 mmol/L 134 (L) Potassium 3.7 - 5.1 mmol/L 4.9 Chloride 98 - 107 mmol/L 99 CO2 22 - 30 mmol/L 24 Anion Gap 8 - 15 mmol/L 11 eGFR >=60 mL/min/1.73m 83 Hemoglobin A1C 4.3 - 5.6 % 9.4 (H) Estimated Average Glucose mg/dL 223 Legend: (L) Low (H) High ASSESSMENT/PLAN: 1. Type 2 diabetes mellitus without complication, without long-term current use of insulin (HCC) - ICD9: 250.00, ICD10: E11.9 (primary diagnosis) - Improving control - Increase semaglutide (Ozempic) - Counseled on healthy diet and regular exercise - Discussed need for and benefit of weight loss. BMI 31.68 kg/(m^2) - Smoking cessation encouraged; discussed risks to health and quitting strategies. Patient is not ready to quit - Stressed importance of using glucometer at home when she has hypoglycemic symptoms. Verbalized understanding. Will check with insurance about dora or Dexcom coverage. - Get repeat labs in 3 months. - HEMOGLOBIN A1C - OZEMPIC 0.25 MG OR 0.5 MG (2 MG/3 ML) SUBCUTANEOUS PEN INJECTOR 2. Sciatica, right side - ICD9: 724.3, ICD10: M54.31 - Stable, refill provided. - GABAPENTIN 100 MG CAPSULE 3. Hypothyroidism, unspecified type - ICD9: 244.9, ICD10: E03.9 - Instructed patient on importance of taking on an empty stomach either first thing in the morning or at bedtime. 4. Anxiety state - ICD9: 300.00, ICD10: F41.1 - Stable, continue to take current medication. 5. Asthma due to seasonal allergies - ICD9: 493.90, ICD10: J45.909 - Mild intermittent asthma stable - Continue current medications - Avoidance of triggers recommended - FLUTICASONE PROPIONATE 50 MCG/ACTUATION NASAL SPRAY,SUSPENSION - LORATADINE 10 MG TABLET 6. Mixed hyperlipidemia - ICD9: 272.2, ICD10: E78.2 - Control undetermined, due for labs - Continue current medications - Counseled on healthy diet and regular exercise - Discussed need for and benefit of weight loss. BMI 31.68 kg/(m^2) - COMPREHENSIVE METABOLIC PANEL - LIPID PANEL, FASTING 7. Smoking - ICD9: 305.1, ICD10: F17.200 - Cessation encouraged. - Physiologic and physical aspects of tobacco addiction as well as strategies for quitting were discussed. - Counseling was given focusing on the harmful effects of this addiction especially given the patient's medical condition(s) which will be worsened because of the chemicals in tobacco. Follow-up in 3 months or sooner as needed. Silvia Vazquez APRN.MANDY This note was partially generated using [employer] recognition system. Note was reviewed for accuracy. There may be minor misspellings or grammar miscues with [employer] voice recognition. documented in this encounter [facility] 09-23-2024 Note HNO ID: [id number] Author: SILVIA VAZQUEZ APRN.CNP Service: ? Author Type: Nurse Practitioner Type: Progress Notes Filed: 09/23/2024 10:14 Note Text: This is a 78 year old female who presents today with: Patient presents with: Follow Up: 3 month follow up with labs HISTORY OF PRESENT ILLNESS: Sheree Chavez is a 78 year old female. Patient presents with: Follow Up: 3 month follow up with labs 3 month follow up Sciatica pain, right side. Has seen pain management in the past, Dr. Toribio. Has had injections in the past. Has been trying to stretch. Taking Gabapentin 100 mg TID. DM: Reports overall feeling well. Medication side effects: No. Home sugar checks: Has not been checking glucose at home Hypoglycemic spells: No. Watching diet: Yes. Needs to improve diet. Unexpected weight loss: No. Polyuria, polydipsia: No. Vision Changes: No. Foot lesions or numbness or pain: No.' Last A1c 11.4, now 9.4 . Was taking glimepiride 4 mg BID but stopped due to low blood sugar. Not using a glucometer but a smart watch. Last office visit started on Ozempic 0.25 mg once weekly. Had Eye exam. Working on lifestyle changes at home. HTN: Denies checking BP at home or having chest pain or sob.Taking Lisinopril 10 mg once daily. Denies chest pain, palpitations, dizziness, or edema. Anxiety: Taking Xanax 0.5 mg 1 tab po 1-2 tabs daily. Stopped taking Prozac 10 mg once daily. Did not feel like Prozac was working. She reports that the Xanax is helping her, she is feeling better. Thyroid: Taking Levothyroxine 50 mcg once daily. Denies any missed dosages. Lipids: Denies any issues with current regimen of Lipitor 10 mg once daily. Smoking PAST MEDICAL HISTORY: PAST MEDICAL HISTORY Diagnosis Date Absence of menstruation Anxiety state, unspecified Benign neoplasm of colon Diverticulosis of colon (without mention of hemorrhage) Esophageal reflux Essential hypertension, benign Internal hemorrhoids without mention of complication Mental disorder Obesity, unspecified Other and unspecified hyperlipidemia Type II or unspecified type diabetes mellitus without mention of complication, not stated as uncontrolled PAST SURGICAL HISTORY Procedure Laterality Date BIOPSY BREAST OPEN INCISIONAL Bx of breast, incisional COLONOSCOPY FLX DX W/COLLJ SPEC WHEN PFRMD 02/21/15 Colonoscopy COLSC FLX W/RMVL OF TUMOR POLYP LESION SNARE TQ 01/21/08 DESTRUCTION BENIGN LESIONS UP TO 14 11/13/07 Partially avulsed SK left upper arm PAST SURGICAL HISTORY OF RIGHT TRIGGER THUMB PAST SURGICAL HISTORY OF 06/20 cataract revision; bilateral eyes PAST SURGICAL HISTORY OF Bilateral 2014 Cataract surgery ALLERGIES Palm Oil, Accupril [Quinapril Hcl], Asa [Salicylates], Penicillins, Vicodin [Hydrocodone-Acetaminophen], Bees, Codeine, Doxycycline, and Metformin MEDICATIONS Current Outpatient Medications Medication Sig ALPRAZolam (XANAX) 0.5 mg tablet Take 1 tablet by mouth two times a day as needed for up to 90 days. glimepiride (AMARYL) 4 mg tablet Take 1 tablet by mouth two times a day with meals. acetaminophen (TYLENOL ARTHRITIS PAIN) 650 mg CR tablet Take 1 tablet by mouth every 8 hours as needed. albuterol HFA (PROVENTIL HFA, VENTOLIN HFA) 90 mcg/actuation inhaler Inhale 2 Puffs as instructed every 6 hours as needed for wheezing/shortness of breath. levothyroxine (SYNTHROID) 50 mcg tablet Take 1 tablet by mouth daily before breakfast. FLUoxetine (PROZAC) 10 mg capsule Take 1 capsule by mouth every afternoon. atorvastatin (LIPITOR) 10 mg tablet Take 1 tablet by mouth once daily. gabapentin (NEURONTIN) 100 mg capsule Take 1 capsule by mouth three times a day for 180 days. loratadine (CLARITIN) 10 mg tablet Take 1 tablet by mouth once daily. lisinopril (ZESTRIL) 10 mg tablet Take 1 tablet by mouth once daily. fluticasone (FLONASE) 50 mcg/actuation nasal spray Use 2 Sprays in each nostril once daily. Rinse mouth after use. clindamycin (CLEOCIN) 300 mg capsule Take 1 capsule by mouth four times daily. therapeutic multivitamin w/ iron (THERAGRAN-M) 27-0.4 mg tablet Take 1 tablet by mouth once daily. cannabidiol, CBD, (CANNABIDIOL ORAL) Take 1-2 Each by mouth once daily. Pt reports taking 1-2 CBD gummies OTC daily for pain and muscle aches. Pt purchases these online and was unable to confirm the dose or brand. Pt does not report endorsement of this medication from a provider. famotidine (PEPCID) 20 mg tablet Take 1 tablet by mouth at bedtime as needed. No current facility-administered medications for this visit. FAMILY HISTORY Problem Relation Age of Onset Cancer Father LIVER Heart Father CABG Heart Mother Osteoporosis Mother Diabetes Paternal Grandmother Breast Cancer Maternal Aunt Social History Tobacco Use Smoking status: Every Day Current packs/day: 0.25 Average packs/day: 0.3 packs/day for 30.0 years (7.5 ttl pk-yrs) Types: Cigarettes Smokeless tobacco: (more content not included)... [facility] 09-11-2024 Note HNO ID: [id number] Author: DENISE EDWARD RN Service: ? Author Type: Registered Nurse Type: Progress Notes Filed: 09/11/2024 11:22 Note Text: CDM ENROLLMENT Provider Action / FYI: Patient identified by name and date of . Discussed care with patient. Program Details Chronic Disease Management Status: Enrolled Effective Dates: 09/11/2024 - present Responsible Staff: Denise Edward RN Support and Services: Hypertension, Diabetes Assessments CDM Assessment Medications: Do you have any questions about taking your medications or which medications you should be taking?: Yes (Has questions on Ozempic - seeing PCP office in 12 days) Do you need any medication refills at this time, including any of the medication you might take only when needed?: No Social: It can be normal to feel anxious or down during a time like this. Would you like to talk to a mental health professional about how you have been feeling?: No Symptoms: Are you experiencing any new or worsening symptoms that you need to talk about today?: No ADLs Patients can perform the following activities without help: Dressing: Yes Bathing: Yes Doing laundry: Yes Climbing a flight of stairs: Yes Walking briskly: Yes Instrumental activities of daily living Do you drive a car?: Yes Do you need help from others to take care of things inside the house, for example: laundry, house cleaning, preparing meals?: No Do you need help from others with errands outside the house, for example: shopping for groceries or clothes, going medical appointments?: No Fall Risk One or more falls in the last year:: No Any near falls in the last year?: No Advised to use a cane or walker to get around safely:: No Feels unsteady when walking:: No Steadies self on furniture while walking at home:: No Worried about falling:: No Needs to push with hands when rising from a chair:: No Has trouble stepping up onto a curb:: No Often has to levi to the toilet:: No Has lost some feeling in feet:: No Takes medicine that makes him/her feel lightheaded or more tired than usual:: No Takes medicine to sleep or improve mood:: No SDOH Financial Resource Strain How hard is it for you to pay for the very basics like food, housing, medical care, and heating?: Not hard at all Housing Stability In the last 12 months, was there a time when you were not able to pay the mortgage or rent on time?: No Transportation Needs In the past 12 months, has lack of transportation kept you from medical appointments or from getting medications?: No In the past 12 months, has lack of transportation kept you from meetings, work, or from getting things needed for daily living?: No Food Insecurity Within the past 12 months, you worried that your food would run out before you got the money to buy more.: Never true Within the past 12 months, the food you bought just didn't last and you didn't have money to get more.: Never true Utilities In the past 12 months has the electric, gas, oil, or water company threatened to shut off services in your home?: No Tobacco Use Patient reports that she has been smoking cigarettes. She has a 7.5 pack-year smoking history. She has never used smokeless tobacco. Interventions The following were addressed during this visit: - Initial enrollment outreach Disposition Based on robotics mechanic, the following disposition is advised: No action needed Denise Edward RN September 11, 2024 11:08 AM [facility] 09-11-2024 History of Present illness Narrative CDM ENROLLMENT Provider Action / FYI: Patient identified by name and date of . Discussed care with patient. Program Details Chronic Disease Management Status: Enrolled Effective Dates: 09/11/2024 - present Responsible Staff: Denise Edward, NURYS Support and Services: Hypertension, Diabetes Assessments CDM Assessment Medications: Do you have any questions about taking your medications or which medications you should be taking?: Yes (Has questions on Ozempic - seeing PCP office in 12 days) Do you need any medication refills at this time, including any of the medication you might take only when needed?: No Social: It can be normal to feel anxious or down during a time like this. Would you like to talk to a mental health professional about how you have been feeling?: No Symptoms: Are you experiencing any new or worsening symptoms that you need to talk about today?: No ADLs Patients can perform the following activities without help: Dressing: Yes Bathing: Yes Doing laundry: Yes Climbing a flight of stairs: Yes Walking briskly: Yes Instrumental activities of daily living Do you drive a car?: Yes Do you need help from others to take care of things inside the house, for example: laundry, house cleaning, preparing meals?: No Do you need help from others with errands outside the house, for example: shopping for groceries or clothes, going medical appointments?: No Fall Risk One or more falls in the last year:: No Any near falls in the last year?: No Advised to use a cane or walker to get around safely:: No Feels unsteady when walking:: No Steadies self on furniture while walking at home:: No Worried about falling:: No Needs to push with hands when rising from a chair:: No Has trouble stepping up onto a curb:: No Often has to levi to the toilet:: No Has lost some feeling in feet:: No Takes medicine that makes him/her feel lightheaded or more tired than usual:: No Takes medicine to sleep or improve mood:: No SDOH Financial Resource Strain How hard is it for you to pay for the very basics like food, housing, medical care, and heating?: Not hard at all Housing Stability In the last 12 months, was there a time when you were not able to pay the mortgage or rent on time?: No Transportation Needs In the past 12 months, has lack of transportation kept you from medical appointments or from getting medications?: No In the past 12 months, has lack of transportation kept you from meetings, work, or from getting things needed for daily living?: No Food Insecurity Within the past 12 months, you worried that your food would run out before you got the money to buy more.: Never true Within the past 12 months, the food you bought just didn't last and you didn't have money to get more.: Never true Utilities In the past 12 months has the electric, gas, oil, or water [employer] threatened to shut off services in your home?: No Tobacco Use Patient reports that she has been smoking cigarettes. She has a 7.5 pack-year smoking history. She has never used smokeless tobacco. Interventions The following were addressed during this visit: - Initial enrollment outreach Disposition Based on robotics mechanic, the following disposition is advised: No action needed Denise Edward RN September 11, 2024 11:08 AM documented in this encounter [facility] 09-11-2024 Note Patient Outreach ([facility] SHEREE CHAVEZ ([id number]) 1945 F Date Time Provider Department 09/11/24 DENISE EDWARD [facility] During your visit today, we recorded the following information about you: Denise Edward RN 09/11/2024 11:22 AM Signed CDM ENROLLMENT Provider Action / FYI: Patient identified by name and date of . Discussed care with patient. Program Details Chronic Disease Management Status: Enrolled Effective Dates: 09/11/2024 - present Responsible Staff: Denise Edward, NURYS Support and Services: Hypertension, Diabetes Assessments CDM Assessment Medications: Do you have any questions about taking your medications or which medications you should be taking?: Yes (Has questions on Ozempic - seeing PCP office in 12 days) Do you need any medication refills at this time, including any of the medication you might take only when needed?: No Social: It can be normal to feel anxious or down during a time like this. Would you like to talk to a mental health professional about how you have been feeling?: No Symptoms: Are you experiencing any new or worsening symptoms that you need to talk about today?: No ADLs Patients can perform the following activities without help: Dressing: Yes Bathing: Yes Doing laundry: Yes Climbing a flight of stairs: Yes Walking briskly: Yes Instrumental activities of daily living Do you drive a car?: Yes Do you need help from others to take care of things inside the house, for example: laundry, house cleaning, preparing meals?: No Do you need help from others with errands outside the house, for example: shopping for groceries or clothes, going medical appointments?: No Fall Risk One or more falls in the last year:: No Any near falls in the last year?: No Advised to use a cane or walker to get around safely:: No Feels unsteady when walking:: No Steadies self on furniture while walking at home:: No Worried about falling:: No Needs to push with hands when rising from a chair:: No Has trouble stepping up onto a curb:: No Often has to levi to the toilet:: No Has lost some feeling in feet:: No Takes medicine that makes him/her feel lightheaded or more tired than usual:: No Takes medicine to sleep or improve mood:: No SDOH Financial Resource Strain How hard is it for you to pay for the very basics like food, housing, medical care, and heating?: Not hard at all Housing Stability In the last 12 months, was there a time when you were not able to pay the mortgage or rent on time?: No Transportation Needs In the past 12 months, has lack of transportation kept you from medical appointments or from getting medications?: No In the past 12 months, has lack of transportation kept you from meetings, work, or from getting things needed for daily living?: No Food Insecurity Within the past 12 months, you worried that your food would run out before you got the money to buy more.: Never true Within the past 12 months, the food you bought just didn't last and you didn't have money to get more.: Never true Utilities In the past 12 months has the [employer], gas, oil, or water [employer] threatened to shut off services in your home?: No Tobacco Use Patient reports that she has been smoking cigarettes. She has a 7.5 pack-year smoking history. She has never used smokeless tobacco. Interventions The following were addressed during this visit: - Initial enrollment outreach Disposition Based on robotics mechanic, the following disposition is advised: No action needed Denise Edward RN September 11, 2024 11:08 AM Allergies As of Date: 09/11/2024 Noted Allergy Reaction PALM OIL 08/20/2018 8 - GI Upset ACCUPRIL (QUINAPRIL HCL) 08/01/2006 14 - Other: See Comments Comments: Pt unsure why this is listed. Not sure what allergy is ASA (SALICYLATES) 04/20/2005 8 - GI Upset PENICILLINS 04/20/2005 4 - Hives VICODIN (HYDROCODONE-ACETAMINOPHE*04/20/20 05 8 - GI Upset BEES 09/07/2006 CODEINE 06/14/2005 5 - Intolerance DOXYCYCLINE 11/23/2021 8 - GI Upset METFORMIN 08/23/2015 8 - GI Upset Comments: diarrhea higher dose Date Reviewed: 06/17/2024 Reviewed by: Odalis Valentino LPN - Fully Assessed Reason for Visit: CDM [Other] Cmt: Enrollment outreach Prescriptions as of 09/11/2024 - ALPRAZolam (XANAX) 0.5 mg tablet Take 1 tablet by mouth two times a day as needed for up to 90 days. - semaglutide (OZEMPIC) 0.25 mg or 0.5 mg (2 mg/3 mL) pen Inject 0.25 mg subcutaneously one time a week. - glimepiride (AMARYL) 4 mg tablet Take 1 tablet by mouth two times a day with meals. - acetaminophen (TYLENOL ARTHRITIS PAIN) 650 mg CR tablet Take 1 tablet by mouth every 8 hours as needed. - albuterol HFA (PROVENTIL HFA, VENTOLIN HFA) 90 mcg/actuation inhaler Inhale 2 Puffs as instructed every 6 hours as needed for wheezing/shortness of benjie (more content not included)... [facility] 08-26-2024 Note HNO ID: [id number] Author: BONNIE DIOP MA Service: ? Author Type: Lock Master Type: Progress Notes Filed: 08/26/2024 08:25 Note Text: POPULATION HEALTH NAVIGATION OUTREACH Action/FYI Patient replies via mychart - has outside eye exam scheduled. Declines apt with PCP/team at this time. Upcoming apt note updated Reason for Outreach Returned Call/MyChart Patient Contacted: Spoke to patient/parent/or legal guardian Patient identified by name and date of : Yes Returned call/MyChart actions taken: Patient declined: Doesn't feel it's necessary Navigation Signature: Bonnie Tucker MA August 26, 2024 8:24 AM [facility] 08-21-2024 Note HNO ID: [id number] Author: BONNIE DIOP MA Service: ? Author Type: Lock Master Type: Progress Notes Filed: 08/21/2024 11:36 Note Text: POPULATION HEALTH NAVIGATION OUTREACH Action/ Last Wellness exam: 06.17.2024 Last OV: . - Return in about 3 months (around 09/15/2024). Upcoming follow up noted 3. KED metric - UACR needed, CMP already pending Per chart review - patient has outside eye provider. Reminded patient to schedule if she has not done so already - last eye exam per scanned documents 09.30.2023 Reason for Outreach Care Gap/HCC or Scheduling Wellness Visits Care Gaps due: Medicare Annual Wellness Visit Diabetic Eye Exam KED Patient Contacted: Unable or unnecessary to reach patient: Left message [employer] message sent Navigation Signature: Bonnie Tucker MA August 21, 2024 11:25 AM [facility] 08-21-2024 History of Present illness Narrative POPULATION HEALTH NAVIGATION OUTREACH Action/ Last Wellness exam: 06.17.2024 Last OV: 06.17.2024 - Return in about 3 months (around 09/15/2024). Upcoming follow up noted 3. KED metric - UACR needed, CMP already pending Per chart review - patient has outside eye provider. Reminded patient to schedule if she has not done so already - last eye exam per scanned documents 09.30.2023 Reason for Outreach Care Gap/HCC or Scheduling Wellness Visits Care Gaps due: Medicare Annual Wellness Visit Diabetic Eye Exam KED Patient Contacted: Unable or unnecessary to reach patient: Left message [employer] message sent Navigation Signature: Bonnie Tcuker MA August 21, 2024 11:25 AM documented in this encounter [facility] 08-21-2024 Note Patient Outreach (AN[facility] TNA[facility]) SHEREE CHAVEZ ([id number]) 1945 F Date Time Provider Department 08/21/24 BONNIE DIOP NETNAV During your visit today, we recorded the following information about you: Bonnie Diop MA 08/21/2024 11:36 AM Signed POPULATION HEALTH NAVIGATION OUTREACH Action/FYI Last Wellness exam: 06.17.2024 Last OV: 06.17.2024 - Return in about 3 months (around 09/15/2024). Upcoming follow up noted 09.23.2024 MERRILL metric - UACR needed, CMP already pending Per chart review - patient has outside eye provider. Reminded patient to schedule if she has not done so already - last eye exam per scanned documents 09.30.2023 Reason for Outreach Care Gap/HCC or Scheduling Wellness Visits Care Gaps due: Medicare Annual Wellness Visit Diabetic Eye Exam KEAlex Patient Contacted: Unable or unnecessary to reach patient: Left message MyChart message sent Navigation Signature: Bonnie Tucker MA August 21, 2024 11:25 AM Bonnie Diop MA 08/26/2024 8:25 AM Signed POPULATION HEALTH NAVIGATION OUTREACH Action/FYI Patient replies via [employer] - has outside eye exam scheduled. Declines apt with PCP/team at this time. Upcoming apt note updated Reason for Outreach Returned Call/MyChart Patient Contacted: Spoke to patient/parent/or legal guardian Patient identified by name and date of : Yes Returned call/MyChart actions taken: Patient declined: Doesn't feel it's necessary Navigation Signature: Bonnie Tucker MA August 26, 2024 8:24 AM Allergies As of Date: 08/21/2024 Noted Allergy Reaction PALM OIL 08/20/2018 8 - GI Upset ACCUPRIL (QUINAPRIL HCL) 08/01/2006 14 - Other: See Comments Comments: Pt unsure why this is listed. Not sure what allergy is ASA (SALICYLATES) 04/20/2005 8 - GI Upset PENICILLINS 04/20/2005 4 - Hives VICODIN (HYDROCODONE-ACETAMINOPHE*04/20/20 05 8 - GI Upset BEES 09/07/2006 CODEINE 06/14/2005 5 - Intolerance DOXYCYCLINE 11/23/2021 8 - GI Upset METFORMIN 08/23/2015 8 - GI Upset Comments: diarrhea higher dose Date Reviewed: 06/17/2024 Reviewed by: Odalis Valentino LPN - Fully Assessed Reason for Visit: Population Health Navigation Outreach [3910] Cmt: [employer] High Risk - Attempt 1 Prescriptions as of 08/26/2024 - ALPRAZolam (XANAX) 0.5 mg tablet Take 1 tablet by mouth two times a day as needed for up to 90 days. - semaglutide (OZEMPIC) 0.25 mg or 0.5 mg (2 mg/3 mL) pen Inject 0.25 mg subcutaneously one time a week. - glimepiride (AMARYL) 4 mg tablet Take 1 tablet by mouth two times a day with meals. - acetaminophen (TYLENOL ARTHRITIS PAIN) 650 mg CR tablet Take 1 tablet by mouth every 8 hours as needed. - albuterol HFA (PROVENTIL HFA, VENTOLIN HFA) 90 mcg/actuation inhaler Inhale 2 Puffs as instructed every 6 hours as needed for wheezing/shortness of breath. - levothyroxine (SYNTHROID) 50 mcg tablet Take 1 tablet by mouth daily before breakfast. - FLUoxetine (PROZAC) 10 mg capsule Take 1 capsule by mouth every afternoon. - atorvastatin (LIPITOR) 10 mg tablet Take 1 tablet by mouth once daily. - gabapentin (NEURONTIN) 100 mg capsule Take 1 capsule by mouth three times a day for 180 days. - loratadine (CLARITIN) 10 mg tablet Take 1 tablet by mouth once daily. - lisinopril (ZESTRIL) 10 mg tablet Take 1 tablet by mouth once daily. - fluticasone (FLONASE) 50 mcg/actuation nasal spray Use 2 Sprays in each nostril once daily. Rinse mouth after use. - clindamycin (CLEOCIN) 300 mg capsule Take 1 capsule by mouth four times daily. - therapeutic multivitamin w/ iron (THERAGRAN-M) 27-0.4 mg tablet Take 1 tablet by mouth once daily. - cannabidiol, CBD, (CANNABIDIOL ORAL) Take 1-2 Each by mouth once daily. Pt reports taking 1-2 CBD gummies OTC daily for pain and muscle aches. Pt purchases these online and was unable to confirm the dose or brand. Pt does not report endorsement of this medication from a provider. - famotidine (PEPCID) 20 mg tablet Take 1 tablet by mouth at bedtime as needed. 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 [facility] 07-22-2024 Telephone encounter Note Appro[facility]. [facility] and [facility]. All prescriptions have been APPROPRIATELY filled. No suspicious activity was identified. 07/22/2024 by Jay Tran APRN.MANDY The following approved medication requests have been transmitted electronically. Requested Prescriptions Signed Prescriptions Disp Refills ALPRAZolam (XANAX) 0.5 mg tablet 60 tablet 2 Sig: Take 1 tablet by mouth two times a day as needed for up to 90 days. Authorizing Provider: JAY TRAN APRN.CNP [facility] 07-22-2024 Miscellaneous Notes Approved. [facility] checked and validated. All prescriptions have been APPROPRIATELY filled. No suspicious activity was identified. 07/22/2024 by Jay Tran APRN.CNP The following approved medication requests have been transmitted electronically. Requested Prescriptions Signed Prescriptions Disp Refills ALPRAZolam (XANAX) 0.5 mg tablet 60 tablet 2 Sig: Take 1 tablet by mouth two times a day as needed for up to 90 days. Authorizing Provider: JAY TRAN APRN.CNP Prescription Refill Information The patient has been identified by name and date of : Yes Caregiver verified no other encounters exist for this prescription request: Yes Caregiver confirmed with patient/requestor that no other refills are due, in the near future, with this provider at this time: Yes The last office visit in the department: 06/17/24 Does the patient have a future office visit with this provider/department: Yes 09/23/24 Requested Prescriptions Pending Prescriptions Disp Refills ALPRAZolam (XANAX) 0.5 mg tablet 60 tablet 2 Sig: Take 1 tablet by mouth two times a day as needed for up to 90 days. Odalis Valentino LPN July 22, 2024 7:18 AM documented in this encounter [facility] 07-22-2024 Telephone encounter Note Prescription Refill Information The patient has been identified by name and date of : Yes Caregiver verified no other encounters exist for this prescription request: Yes Caregiver confirmed with patient/requestor that no other refills are due, in the near future, with this provider at this time: Yes The last office visit in the department: 06/17/24 Does the patient have a future office visit with this provider/department: Yes 09/23/24 Requested Prescriptions Pending Prescriptions Disp Refills ALPRAZolam (XANAX) 0.5 mg tablet 60 tablet 2 Sig: Take 1 tablet by mouth two times a day as needed for up to 90 days. Odalis Valentino LPN July 22, 2024 7:18 AM [facility] 06-17-2024 Instructions Silvia Vazquez APRN.CNP - 06/17/2024 10:19 AM EST Get repeat labs in 3 months prior to next visit Increase Glimepiride 4 mg twice daily Add on Ozempic 0.25 mg weekly Work on eating a low carb diet, increase lean protein, veggies, and get some form of exercise May use Tylenol Arthritis as needed for pain Smoking cessation encouraged Follow up in 3 months or sooner as needed. Screening schedule The following prevention plan is recommended: DTaP,Tdap,Td Vaccine(2 - Td or Tdap) due on 02/26/2017 Diabetic Foot Exam due on 08/25/2020 Urine Albumin:Creatinine Ratio due on 09/26/2022 Dilated Retinal Exam due on 04/30/2023 Covid-19 Vaccine() due on 05/25/2024 WHAT YOU CAN DO TO PREVENT FALLS Many falls can be prevented. By making some changes, you can lower your chances of falling. Four things YOU can do to prevent falls for you* and your caregiver 1. Begin a regular exercise program Exercise is one of the most important ways to lower your chances of falling. It makes you stronger and helps you feel better. Exercises that improve balance and coordination (like [employer]) are the most helpful. Lack of exercise leads to weakness and increases your chances of falling. Ask your doctor or health care provider about the best type of exercise program for you. 2. Have your health care provider review your medicines Have your doctor or pharmacist review all the medicines you take, even [id number] medicines. As you get older, the way medicines work in your body can change. Some medicines, or combinations of medicines, can make you sleepy or dizzy and can cause you to fall. 3. Have your vision checked Have your eyes checked by an eye doctor at least once a year. You may be wearing the wrong glasses or have a condition like glaucoma or cataracts that limits your vision. Poor vision can increase your chances of falling. 4. Make your home safer About half of all falls happen at home. To make your home safer: Remove things you can trip over (like papers, books, clothes, and shoes) from stairs and places where you walk. Remove small throw rugs or use double-sided tape to keep the rugs from slipping. Keep items you use often in cabinets you can reach easily without using a step stool. Have grab bars put in next to your toilet and in the tub or shower. Use non-slip mats in the bathtub and on shower floors. Improve the lighting in your home. As you get older, you need brighter lights to see well. Hang light-weight curtains or shades to reduce glare. Have handrails and lights put in on all staircases. Wear shoes both inside and outside the house. Avoid going barefoot or wearing slippers. For more information, contact: Centers for Disease Control and Prevention www.cdc.gov/injury * This information may not apply if you have certain medical conditions. documented in this encounter [facility] 06-17-2024 History of Present illness Narrative Images from the original note were not included. Sheree Chavez is a 78 year old female here for a Medicare wellness visit. Medicare Health Risk Assessment General Health Very good Exercise: Minutes/Day 40 min Exercise: Days/Week 5 days Alcohol: Daily Use Monthly or less Alcohol: Drinks/Day Patient does not drink Alcohol: 6 or more drinks Never Feel off balance No Concerns: Teeth/Dentures No Concerns: Sexual function No Troubled by feelings Anxious Frequency: Eating healthy diet Nearly every day ADLs requiring help None of the above Safety precautions in home/vehicle Yes Smoke, vape, chews tobacco Yes, and I might quit Difficulty hearing No Difficulty seeing No Current Providers Specialists: I have reviewed specialist-related care of the patient in the medical record. Pain Management in the past, had injections in the past for bursitis and sciatica pain. Medical/Family history review Reviewed and updated problem list, medical/surgical/family/social history, medications, and allergies. Opioid use review Opioid Medications (last 90 days) No data to display Depression Screening PHQ-2 Score: 2 GUDELIA-2 Score: 1 GUDELIA-7 Score: 2 Cognitive screening Mini Cog Score: 5 Cognitive screening reviewed and No further action needed (score 3-5). Functional Observation Was the patient's Timed Up & Go test unsteady or >= 12 seconds? No Advance Care Planning Patient did not wish or was not able to name a surrogate decision maker or provide an advance care plan Measurements BP 100/70 Pulse 87 Resp 16 Ht 155.3 cm (5' 1.14) Wt 78.6 kg (173 lb 4.5 oz) SpO2 98% BMI 32.59 kg/m Vision Screening: Follows with optometry/ophthalmology Assessment/Plan Medicare annual wellness visit, subsequent (Z00.00) - Counseled on healthy diet and regular exercise - Fall avoidance information provided - Personalized prevention plan provided - Discussed need for and benefit of weight loss. BMI 32.59 kg/(m^2) - Smoking cessation encouraged; discussed risks to health and quitting strategies. Patient is not ready to quit This is a 78 year old female who presents today with: Patient presents with: Medicare Wellness Exam HISTORY OF PRESENT ILLNESS: Sheree Chavez is a 78 year old female. Patient presents with: Medicare Wellness Exam Here in the office for extensive exam. Sciatica pain, right side. Has seen pain management in the past, Dr. Toribio. Has had injections in the past. Has been trying to stretch. Taking Gabapentin 100 mg at bedtime. DM: Reports overall feeling well. Medication side effects: No. Home sugar checks: Has not been checking glucose at home Hypoglycemic spells: No. Watching diet: Yes. Needs to improve diet. Unexpected weight loss: No. Polyuria, polydipsia: No. Vision Changes: No. Foot lesions or numbness or pain: No.' Due for labs at this time. Last A1c in August 2022 was 8.0, today 11.4. Taking glimepiride 4 mg daily, stopped Trulicity 0.75 mg weekly due to cost. Had Eye exam. HTN: Denies checking BP at home or having chest pain or sob.Taking Lisinopril 10 mg once daily. Denies chest pain, palpitations, dizziness, or edema. Anxiety: Taking Xanax 0.5 mg 1 tab po 1-2 tabs daily. Stopped taking Prozac 10 mg once daily. Did not feel like Prozac was working. Thyroid: Taking Levothyroxine 50 mcg once daily. Denies any missed dosages. Lipids: Denies any issues with current regimen of Lipitor 10 mg once daily. PAST MEDICAL HISTORY: PAST MEDICAL HISTORY Diagnosis Date Absence of menstruation Anxiety state, unspecified Benign neoplasm of colon Diverticulosis of colon (without mention of hemorrhage) Esophageal reflux Essential hypertension, benign Internal hemorrhoids without mention of complication Mental disorder Obesity, unspecified Other and unspecified hyperlipidemia Type II or unspecified type diabetes mellitus without mention of complication, not stated as uncontrolled PAST SURGICAL HISTORY Procedure Laterality Date BIOPSY BREAST OPEN INCISIONAL Bx of breast, incisional COLONOSCOPY FLX DX W/COLLJ SPEC WHEN PFRMD 02/21/15 Colonoscopy COLSC FLX W/RMVL OF TUMOR POLYP LESION SNARE TQ 01/21/08 DESTRUCTION BENIGN LESIONS UP TO 14 11/13/07 Partially avulsed SK left upper arm PAST SURGICAL HISTORY OF RIGHT TRIGGER THUMB PAST SURGICAL HISTORY OF 06/20 cataract revision; bilateral eyes PAST SURGICAL HISTORY OF Bilateral 2014 Cataract surgery ALLERGIES Palm Oil, Accupril [Quinapril Hcl], Asa [Salicylates], Penicillins, Vicodin [Hydrocodone-Acetaminophen], Bees, Codeine, Doxycycline, and Metformin MEDICATIONS Current Outpatient Medications Medication Sig glimepiride (AMARYL) 4 mg tablet Take 1 tablet by mouth once daily. levothyroxine (SYNTHROID) 50 mcg tablet Take 1 tablet by mouth daily before breakfast. FLUoxetine (PROZAC) 10 mg capsule Take 1 capsule by mouth every afternoon. ALPRAZolam (XANAX) 0.5 mg tablet Take 1 tablet by mouth two times a day as needed for up to 90 days. atorvastatin (LIPITOR) 10 mg tablet Take 1 tablet by mouth once daily. gabapentin (NEURONTIN) 100 mg capsule Take 1 capsule by mouth three times a day for 180 days. loratadine (CLARITIN) 10 mg tablet Take 1 tablet by mouth once daily. lisinopril (ZESTRIL) 10 mg tablet Take 1 tablet by mouth once daily. fluticasone (FLONASE) 50 mcg/actuation nasal spray Use 2 Sprays in each nostril once daily. Rinse mouth after use. clindamycin (CLEOCIN) 300 mg capsule Take 1 capsule by mouth four times daily. dulaglutide (TRULICITY) 0.75 mg/0.5 mL pen injector INJECT 0.5 ML SUBCUTANEOUSLY ONCE A WEEK. DISCARD PEN AFTER. albuterol HFA (PROVENTIL HFA, VENTOLIN HFA) 90 mcg/actuation inhaler INHALE 2 PUFFS INSTRUCTED EVERY 6 HOURS NEEDED FOR WHEEZING/SHORTNESS OF BREATH. therapeutic multivitamin w/ iron (THERAGRAN-M) 27-0.4 mg tablet Take 1 tablet by mouth once daily. cannabidiol, CBD, (CANNABIDIOL ORAL) Take 1-2 Each by mouth once daily. Pt reports taking 1-2 CBD gummies OTC daily for pain and muscle aches. Pt purchases these online and was unable to confirm the dose or brand. Pt does not report endorsement of this medication from a provider. ACETAMINOPHEN 500 MG TAB Take 500 mg by mouth every 8 hours as needed for pain. No more than 4000 mg of acetaminophen should be given per day (FROM ALL SOURCES) famotidine (PEPCID) 20 mg tablet Take 1 tablet by mouth at bedtime as needed. No current facility-administered medications for this visit. FAMILY HISTORY Problem Relation Age of Onset Cancer Father LIVER Heart Father CABG Heart Mother Osteoporosis Mother Diabetes Paternal Grandmother Breast Cancer Maternal Aunt Social History Tobacco Use Smoking status: Every Day Current packs/day: 0.25 Average packs/day: 0.3 packs/day for 30.0 years (7.5 ttl pk-yrs) Types: Cigarettes Smokeless tobacco: Never Tobacco comments: Smoking 3 cigarettes per day Vaping Use Vaping status: Never Used Substance Use Topics Alcohol use: Yes Comment: occasionally, 2 mixed drinks per month Drug use: No REVIEW OF SYSTEMS GENERAL: No weight loss, malaise or fevers/chills HEENT: Negative for frequent or significant headaches, No changes in hearing or vision. NECK: Negative for lumps, goiter, pain and significant neck swelling RESPIRATORY: Negative for cough, hemoptysis, wheezing, dyspnea or shortness of breath CARDIOVASCULAR: Negative for chest pain, leg swelling, orthopnea, or palpitations GI: No nausea, vomiting, or diarrhea/constipation. No hematochezia/melena. No heartburn or reflux symptoms. : No history of dysuria, frequency or incontinence MUSCULOSKELETAL: Negative for joint pain or swelling. SKIN: Negative for lesions, rash, and itching ENDOCRINE: Negative for cold or heat intolerance, polyuria, polydipsia and goiter NEURO: No history of headaches, syncope, paralysis, seizures or tremors MOOD: Negative for depression, anxiety, or suicidal ideation. EXAM: BP 100/70 Pulse 87 Resp 16 Ht 155.3 cm (5' 1.14) Wt 78.6 kg (173 lb 4.5 oz) SpO2 98% BMI 32.59 kg/m PHYSICAL EXAM: General Appearance: Well appearing, alert, in no acute distress, well-hydrated, well nourished.. Skin: Skin color, texture, turgor normal, no suspicious rashes or lesions. Head: Normocephalic, no masses, lesions, tenderness or abnormalities. Eyes: Anicteric sclera. Pupils are equally round and reactive to light. Extraocular movements are intact. . Lungs: Lungs clear to auscultation. No wheezing, rhonchi, rales.. Heart: RRR without murmur, gallop, or rubs. No ectopy. Extremities: No deformities, edema, skin discoloration, clubbing or cyanosis. Good capillary refill. . Peripheral Pulses: Normal, Capillary refill <2secs, strong peripheral pulses, Pulses palpable. Neurologic: Gait normal. Reflexes normal and symmetric. Sensation grossly intact.. ASSESSMENT/PLAN: 1. Medicare annual wellness visit, subsequent - ICD9: V70.0, ICD10: Z00.00 (primary diagnosis) - Counseled on healthy diet and regular exercise - Discussed need and benefit for weight loss. BMI 32.59 kg/(m^2) - Breast cancer screening - ordered mammogram - Smoking cessation encouraged; discussed health risks and quitting strategies. Patient is not ready to quit - Follow up for annual exam in one year 2. Sciatica, right side - ICD9: 724.3, ICD10: M54.31 Sciatica, Chronic - May use Tylenol as needed, denied wanting to complete physical therapy at this time. - Continue supportive care at home, may apply ice, heat, gentle stretching and massage therapy as needed. - ACETAMINOPHEN ER 650 MG TABLET,EXTENDED RELEASE 3. Acute pain of left knee - ICD9: 719.46, ICD10: M25.562 - ACETAMINOPHEN ER 650 MG TABLET,EXTENDED RELEASE 4. Type 2 diabetes mellitus without complication, without long-term current use of insulin (HCC) - ICD9: 250.00, ICD10: E11.9 - Worsening control - Increase glimepiride - Start semaglutide (Ozempic) - Counseled on healthy diet and regular exercise - Discussed need for and benefit of weight loss. BMI 32.59 kg/(m^2) - Smoking cessation encouraged; discussed risks to health and quitting strategies. Patient is not ready to quit - Get repeat labs in 3 months prior to office visit. - Denied wanting to start insulin at this time. - COMPREHENSIVE METABOLIC PANEL - HEMOGLOBIN A1C - SEMAGLUTIDE 0.25 MG OR 0.5 MG (2 MG/3 ML) SUBCUTANEOUS PEN INJECTOR - GLIMEPIRIDE 4 MG TABLET 5. Hypothyroidism, unspecified type - ICD9: 244.9, ICD10: E03.9 - Instructed patient on importance of taking on an empty stomach either first thing in the morning or at bedtime. 6. Asthma due to seasonal allergies - ICD9: 493.90, ICD10: J45.909 - ALBUTEROL SULFATE HFA 90 MCG/ACTUATION AEROSOL INHALER 7. Anxiety state - ICD9: 300.00, ICD10: F41.1 - Stable 8. Smoking - ICD9: 305.1, ICD10: F17.200 - Cessation encouraged. - Physiologic and physical aspects of tobacco addiction as well as strategies for quitting were discussed. - Counseling was given focusing on the harmful effects of this addiction especially given the patient's medical condition(s) which will be worsened because of the chemicals in tobacco. 9. Screening for depression - ICD9: V79.0, ICD10: Z13.31 - DEPRESSION SCREENING Follow-up in 3 months or sooner as needed. Discussed treatment plan and patient voices understanding. Patient's questions answered appropriately. Medications and potential side effects were discussed and patient voices understanding. Silvia Vazquez APRN.CNP This note was partially generated using [employer] voice recognition system. Note was reviewed for accuracy. There may be minor misspellings or grammar miscues with [employer] voice recognition. documented in this encounter [facility] 06-17-2024 Note HNO ID: [id number] Author: SILVIA VAZQUEZ APRN.CNP Service: ? Author Type: Nurse Practitioner Type: Progress Notes Filed: 06/17/2024 15:10 Note Text: Sheree Chavez is a 78 year old female here for a Medicare wellness visit. Medicare Health Risk Assessment General Health Very good Exercise: Minutes/Day 40 min Exercise: Days/Week 5 days Alcohol: Daily Use Monthly or less Alcohol: Drinks/Day Patient does not drink Alcohol: 6 or more drinks Never Feel off balance No Concerns: Teeth/Dentures No Concerns: Sexual function No Troubled by feelings Anxious Frequency: Eating healthy diet Nearly every day ADLs requiring help None of the above Safety precautions in home/vehicle Yes Smoke, vape, chews tobacco Yes, and I might quit Difficulty hearing No Difficulty seeing No Current Providers Specialists: I have reviewed specialist-related care of the patient in the medical record. Pain Management in the past, had injections in the past for bursitis and sciatica pain. Medical/Family history review Reviewed and updated problem list, medical/surgical/family/social history, medications, and allergies. Opioid use review Opioid Medications (last 90 days) No data to display Depression Screening PHQ-2 Score: 2 GUDELIA-2 Score: 1 GUDELIA-7 Score: 2 Cognitive screening Mini Cog Score: 5 Cognitive screening reviewed and No further action needed (score 3-5). Functional Observation Was the patient's Timed Up AND Go test unsteady or >= 12 seconds? No Advance Care Planning Patient did not wish or was not able to name a surrogate decision maker or provide an advance care plan Measurements BP 100/70 Pulse 87 Resp 16 Ht 155.3 cm (5' 1.14) Wt 78.6 kg (173 lb 4.5 oz) SpO2 98% BMI 32.59 kg/m? Vision Screening: Follows with optometry/ophthalmology Assessment/Plan Medicare annual wellness visit, subsequent (Z00.00) - Counseled on healthy diet and regular exercise - Fall avoidance information provided - Personalized prevention plan provided - Discussed need for and benefit of weight loss. BMI 32.59 kg/(m2) - Smoking cessation encouraged; discussed risks to health and quitting strategies. Patient is not ready to quit This is a 78 year old female who presents today with: Patient presents with: Medicare Wellness Exam HISTORY OF PRESENT ILLNESS: Sheree Chavez is a 78 year old female. Patient presents with: Medicare Wellness Exam Here in the office for extensive exam. Sciatica pain, right side. Has seen pain management in the past, Dr. Toribio. Has had injections in the past. Has been trying to stretch. Taking Gabapentin 100 mg at bedtime. DM: Reports overall feeling well. Medication side effects: No. Home sugar checks: Has not been checking glucose at home Hypoglycemic spells: No. Watching diet: Yes. Needs to improve diet. Unexpected weight loss: No. Polyuria, polydipsia: No. Vision Changes: No. Foot lesions or numbness or pain: No.' Due for labs at this time. Last A1c in August 2022 was 8.0, today 11.4. Taking glimepiride 4 mg daily, stopped Trulicity 0.75 mg weekly due to cost. Had Eye exam. HTN: Denies checking BP at home or having chest pain or sob.Taking Lisinopril 10 mg once daily. Denies chest pain, palpitations, dizziness, or edema. Anxiety: Taking Xanax 0.5 mg 1 tab po 1-2 tabs daily. Stopped taking Prozac 10 mg once daily. Did not feel like Prozac was working. Thyroid: Taking Levothyroxine 50 mcg once daily. Denies any missed dosages. Lipids: Denies any issues with current regimen of Lipitor 10 mg once daily. PAST MEDICAL HISTORY: PAST MEDICAL HISTORY Diagnosis Date Absence of menstruation Anxiety state, unspecified Benign neoplasm of colon Diverticulosis of colon (without mention of hemorrhage) Esophageal reflux Essential hypertension, benign Internal hemorrhoids without mention of complication Mental disorder Obesity, unspecified Other and unspecified hyperlipidemia Type II or unspecified type diabetes mellitus without mention of complication, not stated as uncontrolled PAST SURGICAL HISTORY Procedure Laterality Date BIOPSY BREAST OPEN INCISIONAL Bx of breast, incisional COLONOSCOPY FLX DX W/COLLJ SPEC WHEN PFRMD 02/21/15 Colonoscopy COLSC FLX W/RMVL OF TUMOR POLYP LESION SNARE TQ 01/21/08 DESTRUCTION BENIGN LESIONS UP TO 14 11/13/07 Partially avulsed SK left upper arm PAST SURGICAL HISTORY OF RIGHT TRIGGER THUMB PAST SURGICAL HISTORY OF 06/20 cataract revision; bilateral eyes PAST SURGICAL HISTORY OF Bilateral 2014 Cataract surgery ALLERGIES Palm Oil, Accupril [Quinapril Hcl], Asa [Salicylates], Penicillins, Vicodin [Hydrocodone-Acetaminophen], Bees, Codeine, Doxycycline, and Metformin MEDICATIONS Current Outpatient Medications Medication Sig glimepiride (AMARYL) 4 mg tablet Take 1 tablet by mouth once daily. levothyroxine (SYNTHROID) 50 mcg tablet Take 1 tablet by mouth daily before benjie (more content not included)... [facility] 05-18-2024 Telephone encounter Note Left message that lab orders are in. Kamille Nova LPN [facility] 05-18-2024 Miscellaneous Notes Left message that lab orders are in. Kamille Nova LPN Labs ordered Deirdre Quiñones MD Spoke with pt and her Medicare Wellness apt has been booked for 06/08/24. Pt reports she will be due for fasting lab work. Please advise pt when fasting blood work is in. Orders pended, please review and add or delete. Kamille Nova LPN Patient is due for a yearly visit. 90 days sent in. The following approved medication requests have been transmitted electronically. Requested Prescriptions Signed Prescriptions Disp Refills glimepiride (AMARYL) 4 mg tablet 90 tablet 0 Sig: Take 1 tablet by mouth once daily. Authorizing Provider: JAY TRAN APRN.MEDICAL AFFAIRS LEADER Prescription Refill Information The patient has been identified by name and date of : Yes Caregiver verified no other encounters exist for this prescription request: Yes Caregiver confirmed with patient/requestor that no other refills are due, in the near future, with this provider at this time: No The last office visit in the department: 04/29/24 Does the patient have a future office visit with this provider/department: No Requested Prescriptions Pending Prescriptions Disp Refills glimepiride (AMARYL) 4 mg tablet 90 tablet 3 Sig: Take 1 tablet by mouth once daily. Kourtney Kincaid MA May 18, 2024 11:59 AM documented in this encounter [facility] 05-18-2024 Telephone encounter Note Labs ordered Deirdre Quiñones MD [facility] 05-18-2024 Telephone encounter Note Spoke with pt and her Medicare Wellness apt has been booked for 06/08/24. Pt reports she will be due for fasting lab work. Please advise pt when fasting blood work is in. Orders pended, please review and add or delete. Kamille Nova LPN [facility] 05-18-2024 Telephone encounter Note Patient is due for a yearly visit. 90 days sent in. The following approved medication requests have been transmitted electronically. Requested Prescriptions Signed Prescriptions Disp Refills glimepiride (AMARYL) 4 mg tablet 90 tablet 0 Sig: Take 1 tablet by mouth once daily. Authorizing Provider: JAY TRAN APRN.MEDICAL AFFAIRS LEADER [facility] 05-18-2024 Telephone encounter Note Prescription Refill Information The patient has been identified by name and date of : Yes Caregiver verified no other encounters exist for this prescription request: Yes Caregiver confirmed with patient/requestor that no other refills are due, in the near future, with this provider at this time: No The last office visit in the department: 04/29/24 Does the patient have a future office visit with this provider/department: No Requested Prescriptions Pending Prescriptions Disp Refills glimepiride (AMARYL) 4 mg tablet 90 tablet 3 Sig: Take 1 tablet by mouth once daily. Kourtney Kincaid MA May 18, 2024 11:59 AM [facility] 04-24-2024 Telephone encounter Note The patient has been identified by name and date of : Yes Caregiver verified no other encounters exist for this prescription request: Yes Caregiver confirmed with patient/requestor that no other refills are due, in the near future, with this provider at this time: Yes The last office visit in the department: 04/29/2023 Does the patient have a future office visit with this provider/department: No no future appt scheduled Requested Prescriptions Pending Prescriptions Disp Refills levothyroxine (SYNTHROID) 50 mcg tablet 90 tablet 3 Sig: Take 1 tablet by mouth daily before breakfast. FLUoxetine (PROZAC) 10 mg capsule 90 capsule 3 Sig: Take 1 capsule by mouth every afternoon. Aspen West LPN April 24, 2024 11:04 AM [facility] 04-24-2024 Miscellaneous Notes The patient has been identified by name and date of : Yes Caregiver verified no other encounters exist for this prescription request: Yes Caregiver confirmed with patient/requestor that no other refills are due, in the near future, with this provider at this time: Yes The last office visit in the department: 04/29/2023 Does the patient have a future office visit with this provider/department: No no future appt scheduled Requested Prescriptions Pending Prescriptions Disp Refills levothyroxine (SYNTHROID) 50 mcg tablet 90 tablet 3 Sig: Take 1 tablet by mouth daily before breakfast. FLUoxetine (PROZAC) 10 mg capsule 90 capsule 3 Sig: Take 1 capsule by mouth every afternoon. Aspen West LPN April 24, 2024 11:04 AM documented in this encounter [facility] 04-20-2024 Telephone encounter Note OK to refill as ordered Deirdre Quiñones MD [facility] 04-20-2024 Miscellaneous Notes OK to refill as ordered Deirdre Quiñones MD Prescription Refill Information The patient has been identified by name and date of : Yes Caregiver verified no other encounters exist for this prescription request: Yes Caregiver confirmed with patient/requestor that no other refills are due, in the near future, with this provider at this time: Yes The last office visit in the department: 04/29/2024 Does the patient have a future office visit with this provider/department: No Phone call to patient, no answer, voicemail full, sending mychart message for patient to schedule an appointment. Requested Prescriptions Pending Prescriptions Disp Refills ALPRAZolam (XANAX) 0.5 mg tablet 60 tablet 2 Sig: Take 1 tablet by mouth two times a day as needed for up to 90 days. Nirmala Blair LPN April 20, 2024 1:47 PM documented in this encounter [facility] 04-20-2024 Telephone encounter Note Prescription Refill Information The patient has been identified by name and date of : Yes Caregiver verified no other encounters exist for this prescription request: Yes Caregiver confirmed with patient/requestor that no other refills are due, in the near future, with this provider at this time: Yes The last office visit in the department: 04/29/2024 Does the patient have a future office visit with this provider/department: No Phone call to patient, no answer, voicemail full, sending mychart message for patient to schedule an appointment. Requested Prescriptions Pending Prescriptions Disp Refills ALPRAZolam (XANAX) 0.5 mg tablet 60 tablet 2 Sig: Take 1 tablet by mouth two times a day as needed for up to 90 days. Nirmala Blair LPN April 20, 2024 1:47 PM [facility] 01-17-2024 Telephone encounter Note The following approved medication requests have been transmitted electronically. Requested Prescriptions Signed Prescriptions Disp Refills atorvastatin (LIPITOR) 10 mg tablet 90 tablet 3 Sig: Take 1 tablet by mouth once daily. Authorizing Provider: SILVIA VAZQUEZ ALPRAZolam (XANAX) 0.5 mg tablet 60 tablet 2 Sig: Take 1 tablet by mouth two times a day as needed for up to 90 days. Authorizing Provider: SILVIA VAZQUEZ gabapentin (NEURONTIN) 100 mg capsule 90 capsule 5 Sig: Take 1 capsule by mouth three times a day for 180 days. Authorizing Provider: SILVIA VAZQUEZ loratadine (CLARITIN) 10 mg tablet 90 tablet 3 Sig: Take 1 tablet by mouth once daily. Authorizing Provider: SILVIA VAZQUEZ lisinopril (ZESTRIL) 10 mg tablet 90 tablet 3 Sig: Take 1 tablet by mouth once daily. Authorizing Provider: SILVIA VAZQUEZ APRN.CNP PDMP website checked and validated. All prescriptions have been APPROPRIATELY filled. No suspicious activity was identified. 01/17/2024 by Silvia Vazquez APRN.MANDY T [facility] 01-17-2024 Miscellaneous Notes The following approved medication requests have been transmitted electronically. Requested Prescriptions Signed Prescriptions Disp Refills atorvastatin (LIPITOR) 10 mg tablet 90 tablet 3 Sig: Take 1 tablet by mouth once daily. Authorizing Provider: SILVIA VAZQUEZ ALPRAZolam (XANAX) 0.5 mg tablet 60 tablet 2 Sig: Take 1 tablet by mouth two times a day as needed for up to 90 days. Authorizing Provider: SILVIA VAZQUEZ gabapentin (NEURONTIN) 100 mg capsule 90 capsule 5 Sig: Take 1 capsule by mouth three times a day for 180 days. Authorizing Provider: SILVIA VAZQUEZ loratadine (CLARITIN) 10 mg tablet 90 tablet 3 Sig: Take 1 tablet by mouth once daily. Authorizing Provider: SILVIA VAZQUEZ lisinopril (ZESTRIL) 10 mg tablet 90 tablet 3 Sig: Take 1 tablet by mouth once daily. Authorizing Provider: SILVIA VAZQUEZ APRN.CNP PDMP website checked and validated. All prescriptions have been APPROPRIATELY filled. No suspicious activity was identified. 01/17/2024 by Silvia Vazquez APRN.CNP Prescription Refill Information The patient has been identified by name and date of : Yes Caregiver verified no other encounters exist for this prescription request: Yes Caregiver confirmed with patient/requestor that no other refills are due, in the near future, with this provider at this time: Yes The last office visit in the department: 04/29/24 Does the patient have a future office visit with this provider/department: No Requested Prescriptions Pending Prescriptions Disp Refills atorvastatin (LIPITOR) 10 mg tablet 90 tablet 3 Sig: Take 1 tablet by mouth once daily. ALPRAZolam (XANAX) 0.5 mg tablet 60 tablet 2 Sig: Take 1 tablet by mouth two times a day as needed for up to 90 days. gabapentin (NEURONTIN) 100 mg capsule 90 capsule 5 Sig: Take 1 capsule by mouth three times a day for 180 days. loratadine (CLARITIN) 10 mg tablet 90 tablet 3 Sig: Take 1 tablet by mouth once daily. lisinopril (ZESTRIL) 10 mg tablet 90 tablet 3 Sig: Take 1 tablet by mouth once daily. Xanax #60 with 2 refill on 10/22/23. Kourtney Kincaid MA January 17, 2024 10:05 AM documented in this encounter [facility] 01-17-2024 Telephone encounter Note Gabapentin and Claritin requested in other refill request. Kourtney Kincaid MA [facility] 01-17-2024 Miscellaneous Notes Gabapentin and Claritin requested in other refill request. Kourtney Kincaid MA documented in this encounter [facility] 01-17-2024 Telephone encounter Note Xanax and lisinopril requested in other refill request. [facility] 01-17-2024 Miscellaneous Notes Xanax and lisinopril requested in other refill request. documented in this encounter [facility] 01-17-2024 Telephone encounter Note Prescription Refill Information The patient has been identified by name and date of : Yes Caregiver verified no other encounters exist for this prescription request: Yes Caregiver confirmed with patient/requestor that no other refills are due, in the near future, with this provider at this time: Yes The last office visit in the department: 04/29/24 Does the patient have a future office visit with this provider/department: No Requested Prescriptions Pending Prescriptions Disp Refills atorvastatin (LIPITOR) 10 mg tablet 90 tablet 3 Sig: Take 1 tablet by mouth once daily. ALPRAZolam (XANAX) 0.5 mg tablet 60 tablet 2 Sig: Take 1 tablet by mouth two times a day as needed for up to 90 days. gabapentin (NEURONTIN) 100 mg capsule 90 capsule 5 Sig: Take 1 capsule by mouth three times a day for 180 days. loratadine (CLARITIN) 10 mg tablet 90 tablet 3 Sig: Take 1 tablet by mouth once daily. lisinopril (ZESTRIL) 10 mg tablet 90 tablet 3 Sig: Take 1 tablet by mouth once daily. Xanax #60 with 2 refill on 10/22/23. Kourtney Kincaid MA January 17, 2024 10:05 AM [facility] 10-22-2023 Miscellaneous Notes OK to refill as ordered Deirdre Quiñones MD documented in this encounter [facility] 10-22-2023 Miscellaneous Notes OK to refill as ordered Deirdre Quiñones MD Patient has been identified by name and date of : Yes, Provider Deirdre Quiñones MD Date October 22, 2023 Time now Patient phones for refill(s): Requested Prescriptions Pending Prescriptions Disp Refills ALPRAZolam (XANAX) 0.5 mg tablet 60 tablet 2 Sig: Take 1 tablet by mouth two times a day as needed for up to 90 days. Date of last office visit in primary care: 04/29/2023 Date of next office visit in primary care: none Please advise. Thank you. Kourtney Kincaid MA. documented in this encounter [facility] 04-29-2023 Instructions Silvia Vazquez APRN.MANDY - 04/29/2023 11:12 AM EDT Get fasting labs completed, no food 10-12 hours prior. Start back on prozac 10 mg daily. In 3-4 weeks may increase 20 mg daily. Continue take all medication as prescribed. Work on eating a low carb diet, increase protein, veggies, and stay active. Due for eye exam Follow up with Dr. Power Recommend using antihistamine, may switch to Zyrtec 10 mg daily. Continue with Flonase twice daily. Stay well hydrated and get rest. May consider massage therapy to help for back pain. Follow up in 3 months pending lab results. documented in this encounter [facility] 04-29-2023 History of Present illness Narrative Medicare Yearly Visit Medical B eligibilty date: 10/24/2008 Date of last exam: Unknown PAST MEDICAL HISTORY Diagnosis Date Absence of menstruation Anxiety state, unspecified Benign neoplasm of colon Diverticulosis of colon (without mention of hemorrhage) Esophageal reflux Essential hypertension, benign Internal hemorrhoids without mention of complication Mental disorder Obesity, unspecified Other and unspecified hyperlipidemia Type II or unspecified type diabetes mellitus without mention of complication, not stated as uncontrolled PAST SURGICAL HISTORY Procedure Laterality Date BIOPSY BREAST OPEN INCISIONAL Bx of breast, incisional COLONOSCOPY FLX DX W/COLLJ SPEC WHEN PFRMD 02/21/15 Colonoscopy COLSC FLX W/RMVL OF TUMOR POLYP LESION SNARE TQ 01/21/08 DESTRUCTION BENIGN LESIONS UP TO 14 11/13/07 Partially avulsed SK left upper arm PAST SURGICAL HISTORY OF RIGHT TRIGGER THUMB PAST SURGICAL HISTORY OF 06/20 cataract revision; bilateral eyes PAST SURGICAL HISTORY OF Bilateral 2015 Cataract surgery ALLERGIES: Palm Oil, Accupril [Quinapril Hcl], Asa [Salicylates], Penicillins, Vicodin [Hydrocodone-Acetaminophen], Bees, Codeine, Doxycycline, and Metformin Medications reviewed: Yes FAMILY HISTORY Problem Relation Age of Onset Cancer Father LIVER Heart Father CABG Heart Mother Osteoporosis Mother Diabetes Paternal Grandmother Breast Cancer Maternal Aunt SOCIAL HISTORY: Social History Tobacco Use Smoking status: Every Day Packs/day: 0.25 Years: 30.00 Additional pack years: 0.00 Total pack years: 7.50 Types: Cigarettes Smokeless tobacco: Never Tobacco comments: Smoking 3 cigarettes per day Vaping Use Vaping Use: Never used Substance Use Topics Alcohol use: Yes Comment: occasionally, 2 mixed drinks per month Drug use: No Sheree gets minimal exercise. She watches her diet for sodium, low fat and low cholesterol most of the time. List of current specialists seen: Dr. Power (Pain Specialist) Back Pain End of Live Planning discussed including patients advanced directive wishes: Yes I am willing to follow Sheree's advanced directives. PHQ-2 / Depression screen She in the past two weeks denies down, depressed, hopeless, or with little interest or pleasure in doing things. History of anxiety. Functional Ability/Safety Screen 1. Was the patient's timed Up and Go test unsteady or longer than 30 seconds? No 2. Does the patient need help with the phone, transportation, shopping,preparing meals, housework, laundry, medications or managing money? No 3. Does your home have rugs in the hallway, lack of grab bars in the bathroom, lack of handrails on the stairs or have poor lighting? No Hearing Evaluation: within normal limits and normal PHYSICAL EXAM BP 100/70 Pulse 105 Resp 16 Ht 153.3 cm (5' 0.35) Wt 79.4 kg (175 lb) SpO2 97% BMI 33.78 kg/m Alert and oriented X 3: YES Body mass index is 33.78 kg/m . Visual acuity: Due for exam ASSESSMENT/PLAN: 77 year old female The following prevention plan was discussed during the office visit and provided to the patient: - Counseled on healthy diet and regular exercise - Glaucoma screening - Lipid panel Silvia Vazquez APRN.MEDICAL AFFAIRS LEADER This is a 77 year old female who presents today with: Patient presents with: Medicare Wellness Exam HISTORY OF PRESENT ILLNESS: Sheree Chavez is a 77 year old female. Patient presents with: Medicare Wellness Exam Here in the office for extensive exam. Has not been seen in office for exam in sometime. Past due for diabetic check. Last A1C in August was 8! Rib Fracture: Still having on going pain but slowly improving. Trying to take deep breaths and coughing. HTN: Denies checking BP at home or having chest pain or sob.On current regimen of Lisinopril 20 mg once daily. Anxiety: Taking Xanax 0.5 mg 1 tab po 1-2 tabs daily. Stopped taking Prozac 10 mg once daily. Did not feel like Prozac was working. Refers she can a difference with her anxiety if she does not take her Xanax. Thyroid: Stable on current regimen of Levothyroxine 50 mcg once daily. Denies any missed dosages. DM: Denies checking sugars at home. States that she does get lows if she doesn't eat. Denies any neuropathy symptoms. On current regimen of Amaryl 2 mg 1 tab po once daily. Stopped metformin. Has not had labs since August. Was on Trulicity, stopped taking medication due to costs. Not checking fasting sugars at home. Lipids: Denies any issues with current regimen of Lipitor 10 mg once daily. Covid: Have ear fullness, echoes at times. Diagnosed 04/10/2023. Still on going sinus congestion and fatigue. Using flonase twice daily and claritin. No fever or chills. PAST MEDICAL HISTORY: PAST MEDICAL HISTORY Diagnosis Date Absence of menstruation Anxiety state, unspecified Benign neoplasm of colon Diverticulosis of colon (without mention of hemorrhage) Esophageal reflux Essential hypertension, benign Internal hemorrhoids without mention of complication Mental disorder Obesity, unspecified Other and unspecified hyperlipidemia Type II or unspecified type diabetes mellitus without mention of complication, not stated as uncontrolled PAST SURGICAL HISTORY Procedure Laterality Date BIOPSY BREAST OPEN INCISIONAL Bx of breast, incisional COLONOSCOPY FLX DX W/COLLJ SPEC WHEN PFRMD 02/21/15 Colonoscopy COLSC FLX W/RMVL OF TUMOR POLYP LESION SNARE TQ 01/21/08 DESTRUCTION BENIGN LESIONS UP TO 14 11/13/07 Partially avulsed SK left upper arm PAST SURGICAL HISTORY OF RIGHT TRIGGER THUMB PAST SURGICAL HISTORY OF 06/20 cataract revision; bilateral eyes PAST SURGICAL HISTORY OF Bilateral 2014 Cataract surgery ALLERGIES Palm Oil, Accupril [Quinapril Hcl], Asa [Salicylates], Penicillins, Vicodin [Hydrocodone-Acetaminophen], Bees, Codeine, Doxycycline, and Metformin MEDICATIONS Current Outpatient Medications Medication Sig ALPRAZolam (XANAX) 0.5 mg tablet Take 1 tablet by mouth two times a day as needed for up to 90 days. gabapentin (NEURONTIN) 100 mg capsule Take 1 capsule by mouth three times a day for 180 days. FLUoxetine (PROZAC) 10 mg capsule take 1 capsule by mouth every day levothyroxine (SYNTHROID) 50 mcg tablet TAKE 1 TABLET BY MOUTH EVERY DAY ON EMPTY STOMACH FOR THYROID loratadine (CLARITIN) 10 mg tablet TAKE 1 TABLET BY MOUTH EVERY DAY dulaglutide (TRULICITY) 0.75 mg/0.5 mL pen injector INJECT 0.5 ML SUBCUTANEOUSLY ONCE A WEEK. DISCARD PEN AFTER. lisinopril (ZESTRIL) 10 mg tablet Take 1 tablet by mouth once daily. glimepiride (AMARYL) 4 mg tablet Take 1 tablet by mouth once daily. atorvastatin (LIPITOR) 10 mg tablet Take 1 tablet by mouth once daily. fluticasone (FLONASE) 50 mcg/actuation nasal spray Use 2 Sprays in each nostril once daily. Rinse mouth after use. albuterol HFA (PROVENTIL HFA, VENTOLIN HFA) 90 mcg/actuation inhaler INHALE 2 PUFFS INSTRUCTED EVERY 6 HOURS NEEDED FOR WHEEZING/SHORTNESS OF BREATH. therapeutic multivitamin w/ iron (THERAGRAN-M) 27-0.4 mg tablet Take 1 tablet by mouth once daily. cannabidiol, CBD, (CANNABIDIOL ORAL) Take 1-2 Each by mouth once daily. Pt reports taking 1-2 CBD gummies OTC daily for pain and muscle aches. Pt purchases these online and was unable to confirm the dose or brand. Pt does not report endorsement of this medication from a provider. famotidine (PEPCID) 20 mg tablet Take 1 tablet by mouth at bedtime as needed. ACETAMINOPHEN 500 MG TAB Take 500 mg by mouth every 8 hours as needed for pain. No more than 4000 mg of acetaminophen should be given per day (FROM ALL SOURCES) No current facility-administered medications for this visit. FAMILY HISTORY Problem Relation Age of Onset Cancer Father LIVER Heart Father CABG Heart Mother Osteoporosis Mother Diabetes Paternal Grandmother Breast Cancer Maternal Aunt Social History Tobacco Use Smoking status: Every Day Packs/day: 0.25 Years: 30.00 Additional pack years: 0.00 Total pack years: 7.50 Types: Cigarettes Smokeless tobacco: Never Tobacco comments: Smoking 3 cigarettes per day Vaping Use Vaping Use: Never used Substance Use Topics Alcohol use: Yes Comment: occasionally, 2 mixed drinks per month Drug use: No REVIEW OF SYSTEMS GENERAL: No weight loss, malaise or fevers/chills HEENT: Negative for frequent or significant headaches, No changes in hearing or vision. NECK: Negative for lumps, goiter, pain and significant neck swelling RESPIRATORY: Negative for cough, hemoptysis, wheezing, dyspnea or shortness of breath CARDIOVASCULAR: Negative for chest pain, leg swelling, orthopnea, or palpitations GI: No nausea, vomiting, or diarrhea/constipation. No hematochezia/melena. No heartburn or reflux symptoms. : No history of dysuria, frequency or incontinence MUSCULOSKELETAL: Negative for joint pain or swelling. SKIN: Negative for lesions, rash, and itching ENDOCRINE: Negative for cold or heat intolerance, polyuria, polydipsia and goiter NEURO: No history of headaches, syncope, paralysis, seizures or tremors MOOD: Negative for depression, anxiety, or suicidal ideation. EXAM: There were no vitals taken for this visit. PHYSICAL EXAM: General Appearance: Well appearing, alert, in no acute distress, well-hydrated, well nourished.. Skin: Skin color, texture, turgor normal, no suspicious rashes or lesions. Head: Normocephalic, no masses, lesions, tenderness or abnormalities. Eyes: Anicteric sclera. Pupils are equally round and reactive to light. Extraocular movements are intact. . Ears: External ears normal, canals clear. Nose/Sinuses: Nares normal, septum midline, mucosa normal, no drainage or sinus tenderness. Oropharynx: Lips, mucosa, and tongue normal, teeth and gums normal, oropharynx normal. Neck: Supple, no adenopathy; thyroid symmetric, normal size, no bruits. Lungs: Lungs clear to auscultation. No wheezing, rhonchi, rales.. Heart: RRR without murmur, gallop, or rubs. No ectopy. Extremities: No deformities, edema, skin discoloration, clubbing or cyanosis. Good capillary refill. . Peripheral Pulses: Normal, Capillary refill <2secs, strong peripheral pulses, Pulses palpable. Neurologic: Gait normal. Reflexes normal and symmetric. Sensation grossly intact.. ASSESSMENT/PLAN: 1. Medicare annual wellness visit, initial - ICD9: V70.0, ICD10: Z00.00 (primary diagnosis) - Counseled on healthy diet and regular exercise - Calcium intake with supplements or by diet of 1000 mg/day for under 50, 6846-8908 mg/day for 50+ - Discussed need and benefit for weight loss. BMI 33.78 kg/(m^2) - Depression screening tool completed and reviewed with patient. Based on score and interview, patient is at risk for depression and recommended continuing current plan of care. - Follow up for annual exam in one year 2. Type 2 diabetes mellitus without complication, without long-term current use of insulin (HCC) - ICD9: 250.00, ICD10: E11.9 - Control undetermined, due for labs - Continue current medications - Counseled on healthy diet and regular exercise - Get labs completed, follow up in 3 months. - HGB A1C - COMP METABOLIC PANEL - ALBUMIN/CREAT RATIO RND UR 3. Hypertension, unspecified type - ICD9: 401.9, ICD10: I10 - Controlled - Continue current medications - Recommend home blood pressure monitoring, to bring results to next visit - Encouraged sodium restriction, DASH or Mediterranean diet - Recommend regular aerobic exercise 4. Mixed hyperlipidemia - ICD9: 272.2, ICD10: E78.2 - Control undetermined, due for labs - Continue current medications - Counseled on healthy diet and regular exercise - LIPID PANEL BASIC 5. Anxiety state - ICD9: 300.00, ICD10: F41.1 - Instructed to start back on Prozac 10 mg daily, may increase to 20 mg in 3-4 weeks. - Discussed in great detail that Xanax should be used as needed. 6. Hypothyroidism, unspecified type - ICD9: 244.9, ICD10: E03.9 - Instructed patient on importance of taking on an empty stomach either first thing in the morning or at bedtime. 7. History of COVID-19 - ICD9: V12.09, ICD10: Z86.16 - Continue supportive care at home. Follow up in 3 months or sooner as needed. Discussed treatment plan and patient voices understanding. Patient's questions answered appropriately. Medications and potential side effects were discussed and patient voices understanding. Silvia Vazquez APRN.MEDICAL AFFAIRS LEADER This note was partially generated using [employer] voice recognition system. Note was reviewed for accuracy. There may be minor misspellings or grammar miscues with [employer] voice recognition. documented in this encounter [facility] 04-25-2023 Miscellaneous Notes Spoke with pt and information listed below given. Pt verbalizes understanding. Kamille Nova LPN OK to refill as ordered Deirdre Quiñones MD Patient has been identified by name and date of : Yes, Provider Tanisha Connors RN Date 04/24/2023 Time 9:40 am Patient phones for refill(s): Requested Prescriptions Pending Prescriptions Disp Refills ALPRAZolam (XANAX) 0.5 mg tablet 60 tablet 2 Sig: Take 1 tablet by mouth two times a day as needed for up to 90 days. Date of last office visit in primary care: 06/27/2022 Date of next office visit in primary care: 04/29/2023 rescheduled physical--patient doesn't have enough medicine to get to appointment and needs it d/t recent fall with rib fx and sinus infection/cough. Last 2 Encounter Wt Readings: Date: Wt: 04/22/2023 79.8 kg (176 lb) 04/19/2023 79.6 kg (175 lb 6.4 oz) Previous labs/tests for medication: Blood Pressure: BUN (mg/dL) Date Value 08/15/2022 19 04/25/2020 13 Sodium (mmol/L) Date Value 08/15/2022 137 04/25/2020 136 Last 1 Encounter BP Readings: Date: BP: 04/22/2023 138/80 Liver Function: ALT (U/L) Date Value 08/15/2022 16 04/25/2020 17 AST (U/L) Date Value 08/15/2022 21 04/25/2020 20 Please advise. Thank you. Tanisha Connors RN. documented in this encounter [facility] 04-22-2023 History of Present illness Narrative Radiology Service Progress Note PATIENT NAME: Sheree Chavez DATE OF SERVICE: April 22, 2023 TIME: 12:16 PM PATIENT IDENTITY VERIFICATION COMPLETED USING TWO (2) IDENTIFIERS: Name and Date of confirmed by patient verbally. FALL SCREENING: Has the patient had 2 falls in the last year or 1 fall with injury or currently using an Ambulatory Assistive Device (Walker, Cane, Wheelchair, Crutches, etc.)? No PATIENT GENDER DATA: Female. status: : No status: NO. PATIENT RELEVANT IMPLANT DATA REVIEWED: Yes RADIOLOGY DEPARTMENT: General X-ray: Exam(s) Completed: Rib X-Ray: Left PERIPHERAL IV DATA: Not applicable SIGNED BY: RT Magan(R) April 22, 2023 12:16 PM documented in this encounter [facility] 04-22-2023 History of Present illness Narrative Images from the original note were not included. Subjective HPI HPI Sheree Chavez is a 77 year old female who presents today for CC of fall, left rib injury. This started 12 hours ago. Has tried otc medication for relief. Symptoms are worsened by nothing. Denies chest pain/abdominal pain. .Patient presents with: Rib Injury: left side rib pain after fall x 12 hours PAST MEDICAL HISTORY Diagnosis Date Absence of menstruation Anxiety state, unspecified Benign neoplasm of colon Diverticulosis of colon (without mention of hemorrhage) Esophageal reflux Essential hypertension, benign Internal hemorrhoids without mention of complication Mental disorder Obesity, unspecified Other and unspecified hyperlipidemia Type II or unspecified type diabetes mellitus without mention of complication, not stated as uncontrolled PAST SURGICAL HISTORY Procedure Laterality Date BIOPSY BREAST OPEN INCISIONAL Bx of breast, incisional COLONOSCOPY FLX DX W/COLLJ SPEC WHEN PFRMD 02/21/15 Colonoscopy COLSC FLX W/RMVL OF TUMOR POLYP LESION SNARE TQ 01/21/08 DESTRUCTION BENIGN LESIONS UP TO 14 11/13/07 Partially avulsed SK left upper arm PAST SURGICAL HISTORY OF RIGHT TRIGGER THUMB PAST SURGICAL HISTORY OF 06/20 cataract revision; bilateral eyes PAST SURGICAL HISTORY OF Bilateral 2014 Cataract surgery ALLERGIES Palm Oil, Accupril [Quinapril Hcl], Asa [Salicylates], Penicillins, Vicodin [Hydrocodone-Acetaminophen], Bees, Codeine, Doxycycline, and Metformin MEDICATIONS ACETAMINOPHEN 500 MG TAB Take 500 mg by mouth every 8 hours as needed for pain. No more than 4000 mg of acetaminophen should be given per day (FROM ALL SOURCES) albuterol HFA (PROVENTIL HFA, VENTOLIN HFA) 90 mcg/actuation inhaler INHALE 2 PUFFS INSTRUCTED EVERY 6 HOURS NEEDED FOR WHEEZING/SHORTNESS OF BREATH. ALPRAZolam (XANAX) 0.5 mg tablet Take 1 tablet by mouth twice daily as needed for up to 90 days. atorvastatin (LIPITOR) 10 mg tablet Take 1 tablet by mouth once daily. azithromycin (ZITHROMAX Z-VITALIY) 250 mg tablet Take 2 tablets day one, then, 1 tablet daily until gone. cannabidiol, CBD, (CANNABIDIOL ORAL) Take 1-2 Each by mouth once daily. Pt reports taking 1-2 CBD gummies OTC daily for pain and muscle aches. Pt purchases these online and was unable to confirm the dose or brand. Pt does not report endorsement of this medication from a provider. dulaglutide (TRULICITY) 0.75 mg/0.5 mL pen injector INJECT 0.5 ML SUBCUTANEOUSLY ONCE A WEEK. DISCARD PEN AFTER. famotidine (PEPCID) 20 mg tablet Take 1 tablet by mouth at bedtime as needed. FLUoxetine (PROZAC) 10 mg capsule take 1 capsule by mouth every day fluticasone (FLONASE) 50 mcg/actuation nasal spray Use 2 Sprays in each nostril once daily. Rinse mouth after use. gabapentin (NEURONTIN) 100 mg capsule Take 1 capsule by mouth three times daily for 30 days. glimepiride (AMARYL) 4 mg tablet Take 1 tablet by mouth once daily. levothyroxine (SYNTHROID) 50 mcg tablet TAKE 1 TABLET BY MOUTH EVERY DAY ON EMPTY STOMACH FOR THYROID lisinopril (ZESTRIL) 10 mg tablet Take 1 tablet by mouth once daily. loratadine (CLARITIN) 10 mg tablet TAKE 1 TABLET BY MOUTH EVERY DAY therapeutic multivitamin w/ iron (THERAGRAN-M) 27-0.4 mg tablet Take 1 tablet by mouth once daily. FAMILY HISTORY Problem Relation Age of Onset Cancer Father LIVER Heart Father CABG Heart Mother Osteoporosis Mother Diabetes Paternal Grandmother Breast Cancer Maternal Aunt Social History Tobacco Use Smoking status: Every Day Packs/day: 0.25 Years: 30.00 Additional pack years: 0.00 Total pack years: 7.50 Types: Cigarettes Smokeless tobacco: Never Tobacco comments: Smoking 3 cigarettes per day Vaping Use Vaping Use: Never used Substance Use Topics Alcohol use: Yes Comment: occasionally, 2 mixed drinks per month Drug use: No Review of Systems Respiratory: Negative for cough and shortness of breath. Cardiovascular: Negative for chest pain. Objective Blood pressure 138/80, pulse 88, temperature 36.3 C (97.4 F), resp. rate 16, weight 79.8 kg (176 lb), SpO2 97 %. Physical Exam Constitutional: General: She is not in acute distress. Appearance: She is not toxic-appearing or diaphoretic. HENT: Head: Normocephalic and atraumatic. Cardiovascular: Rate and Rhythm: Normal rate and regular rhythm. Heart sounds: Normal heart sounds, S1 normal and S2 normal. Pulmonary: Effort: Pulmonary effort is normal. Breath sounds: Normal breath sounds. Chest: Neurological: Mental Status: She is alert and oriented to person, place, and time. Gait: Gait is intact. ASSESSMENT/PLAN: 1. Closed fracture of one rib of left side, initial encounter - ICD9: 807.01, ICD10: S22.32XA (primary diagnosis) Pain relief, cough, deep breathing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 heartburn or reflux symptoms. : No history of dysuria, frequency or incontinence MUSCULOSKELETAL: + right sided low back pain SKIN: Negative for lesions, rash, and itching ENDOCRINE: Negative for cold or heat intolerance, polyuria, polydipsia and goiter NEURO: + Numbness and tingling down right leg MOOD: Negative for depression, anxiety, or suicidal ideation. EXAM: BP 150/98 Pulse 92 Resp 20 Wt 80.7 kg (178 lb) SpO2 98% BMI 32.56 kg/m PHYSICAL EXAM: General Appearance: Well appearing, alert, in no acute distress, well-hydrated, well nourished. Skin: Skin color, texture, turgor normal, no suspicious rashes or lesions. Head: Normocephalic, no masses, lesions, tenderness or abnormalities. Eyes: Anicteric sclera. Extraocular movements are intact. Lungs: Lungs clear to auscultation. No wheezing, rhonchi, rales. Heart: RRR without murmur, gallop, or rubs. No ectopy. Extremities: No deformities, edema, skin discoloration, clubbing or cyanosis. Good capillary refill. Musculoskeletal: No joint swelling, deformity. + Right low back, buttock, and hamstring tender with palpation. Decreased ROM. Peripheral Pulses: Normal, Capillary refill <2secs, strong peripheral pulses, Pulses palpable. Neurologic: Gait normal. Reflexes normal and symmetric. Sensation grossly intact. ASSESSMENT/PLAN: 1. Sciatica, right side - ICD9: 724.3, ICD10: M54.31 Sciatica - Bedrest for 2-3 days - Ice for localized tenderness - Warm moist heat for 20 min three times a day - NSAIDS- see orders - Muscle relaxant- see orders - Toradol provided in office today. - Patient would like to start back on meloxicam, medication instructions and education provided. - May use Zanaflex as needed to help with muscle tension. - Denied wanting PT at this time. - Recommend massage. - KETOROLAC 60 MG/2 ML INTRAMUSCULAR SOLUTION - TIZANIDINE 4 MG TABLET - MELOXICAM 15 MG TABLET Follow-up as needed or sooner if symptoms get worse or do not improve. Discussed treatment plan and patient voices understanding. Patient's questions answered appropriately. Medications and potential side effects were discussed and patient voices understanding. Silvia Vazquez APRN.MANDY This note was partially generated using [employer] voice recognition system. Note was reviewed for accuracy. There may be minor misspellings or grammar miscues with [employer] voice recognition. documented in this encounter [facility] 06-20-2022 Miscellaneous Notes The following approved medication requests have been transmitted electronically. Requested Prescriptions Pending Prescriptions Disp Refills glimepiride (AMARYL) 4 mg tablet 90 tablet 3 Sig: Take 1 tablet by mouth once daily. Jay Tran APRN.CNP Patient has been identified by name and date of : Yes Last office visit in this department: 04/05/2022 RX INSTRUCTIONS: Patient aware RX will be sent to pharmacy. No need to notify patient. Patient phones requesting refills as follows: Requested Prescriptions Pending Prescriptions Disp Refills glimepiride (AMARYL) 4 mg tablet 90 tablet 3 Sig: Take 1 tablet by mouth once daily. ALPRAZolam (XANAX) 0.5 mg tablet 60 tablet 2 Sig: Take 1 tablet by mouth twice daily as needed for up to 90 days. Please review and advise. Lorenza Rivas Pss documented in this encounter [facility] 06-04-2022 Miscellaneous Notes The following approved medication requests have been transmitted electronically. Requested Prescriptions Signed Prescriptions Disp Refills TRULICITY 0.75 mg/0.5 mL pen injector 4 Each 3 Sig: INJECT 0.75MG SUBCUTANEOUSLY ONCE A WEEK. DISCARD PEN AFTER Authorizing Provider: JAY TRAN APRN.CNP The following approved medication requests have been transmitted electronically. Requested Prescriptions Pending Prescriptions Disp Refills TRULICITY 0.75 mg/0.5 mL pen injector [Pharmacy Med Name: TRULICITY 0.75 MG/0.5 ML PEN] 4 Each 3 Sig: INJECT 0.75MG SUBCUTANEOUSLY ONCE A WEEK. DISCARD PEN AFTER Jay Tran APRN.CNP Patient phones requesting refills as follows: Requested Prescriptions Pending Prescriptions Disp Refills TRULICITY 0.75 mg/0.5 mL pen injector [Pharmacy Med Name: TRULICITY 0.75 MG/0.5 ML PEN] Sig: INJECT 0.75MG SUBCUTANEOUSLY ONCE A WEEK. DISCARD PEN AFTER PATRICE 04/05/22 NOV 06/19/22 Please review and advise. Steve Penny LPN documented in this encounter [facility] 05-21-2022 Miscellaneous Notes Last refilled on: xanax #60 with 2 refill on 04/23/22 to [facility]. Pt should have refills remaining. Pt notified via [employer]. Kourtney Kincaid Ma documented in this encounter [facility] 05-04-2022 Miscellaneous Notes The following approved medication requests have been transmitted electronically. Requested Prescriptions Pending Prescriptions Disp Refills dulaglutide (TRULICITY) 0.75 mg/0.5 mL pen injector 2 mL 0 Sig: Inject 0.75 mg subcutaneously one time a week. Inject dose once per week. Discard Pen After Jay Tran APRN.MEDICAL AFFAIRS LEADER Patient phones requesting refills as follows: Requested Prescriptions Pending Prescriptions Disp Refills dulaglutide (TRULICITY) 0.75 mg/0.5 mL pen injector 2 mL 0 Sig: Inject 0.75 mg subcutaneously one time a week. Inject dose once per week. Discard Pen After PATRICE-04/05/22 Labs-04/05/22 NOV-06/19/22 med filled 04/05/22 Please review and advise. Odalis Valentino LPN documented in this encounter [facility] 04-23-2022 Miscellaneous Notes OK to refill as ordered Deirdre Quiñones MD Patient phones requesting refills as follows: Requested Prescriptions Pending Prescriptions Disp Refills ALPRAZolam (XANAX) 0.5 mg tablet 60 tablet 2 Sig: Take 1 tablet by mouth twice daily as needed for up to 90 days. PATRICE-04/05/22 Labs-04/05/22 NOV-06/19/22 med filled 01/17/22 Please review and advise. Odalis Valentino LPN documented in this encounter [facility] 04-05-2022 History of Present illness Narrative Chief Complaint Patient presents with: 6 Month Exam HPI Sheree Chavez is a 76 year old female who presents here today for a 6 month follow up. Has had falls, she refuses to use a cane or walker. Smoking: Continues to smoke a little bit. She would like to not smoke. Continued issues with diarrhea and upset stomach, worse since having tick bite. At times will have bouts of diarrhea, going several times per day. Unsure what the cause is, if food or medications. Uses Pepcid 20 mg prn. Hx of diverticulitis. HTN: Denies checking BP at home or having chest pain or sob. Notes some dizziness, but feels this is related to medications she takes or if standing too quickly. On current regimen of Lisinopril 20 mg once daily. Anxiety: Taking Xanax 0.5 mg 1 tab po 1-2 tabs daily and Prozac 10 mg once daily. Pt notes she could do without Xanax but it does help her sleep, keeps her on even keel. Also takes CBD gummies. Thyroid: Stable on current regimen of Levothyroxine 50 mcg once daily. Denies any missed dosages. DM: Denies checking sugars at home. States that she does get lows if she doesn't eat. Denies any neuropathy symptoms. On current regimen of Amaryl 2 mg 1 tab po once daily and Metformin ER 500 mg 2 tabs po every am. She has concerns about [facility] problems with taking Metformin for a long time, she questions if there are other alternatives, she does not want to be given it because drug companies want her to be on it. 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 She is interested in using injectable options, feels she is capable of giving herself an injection. Lipids: Denies any issues with current regimen of Lipitor 10 mg once daily. Neuro: Since her last visit pt fell at home in May hitting her head and was notified to go the ER by our office. Pt was admitted into [facility] on 05/11/21 with dx of subdural hematoma, TBI and Subarachnoid hemorrhage. Pt was d/c home on 05/13/21 and advised to f/u with Neuro team. Pt has been following with them once monthly to monitor pt. Most recent CT scan showed resolution of the interhemispheric subdural and subarachnoid hemorrhage. She was cleared from Neuro. Pt states that she does have some pain at location. Does note some weakness from being in her home. Once weather changes get out more. Pt refuses to use a cane or walker. Pain: arthritic pain in both knees and a lump to both hands. She does not agree that it is a cyst. States it causes pain. She has not seen any Ortho for the hands but has see Dr. Camp for the knees. Past medical history, appointments, medications, allergies reviewed. Previous Medical History PAST MEDICAL HISTORY Diagnosis Date Absence of menstruation Anxiety state, unspecified Benign neoplasm of colon Diverticulosis of colon (without mention of hemorrhage) Esophageal reflux Essential hypertension, benign Internal hemorrhoids without mention of complication Mental disorder Obesity, unspecified Other and unspecified hyperlipidemia Type II or unspecified type diabetes mellitus without mention of complication, not stated as uncontrolled Previous Surgical History PAST SURGICAL HISTORY Procedure Laterality Date BIOPSY BREAST OPEN INCISIONAL Bx of breast, incisional COLONOSCOPY FLX DX W/COLLJ SPEC WHEN PFRMD 02/21/15 Colonoscopy COLSC FLX W/RMVL OF TUMOR POLYP LESION SNARE TQ 01/21/08 DESTRUCTION BENIGN LESIONS UP TO 14 11/13/07 Partially avulsed SK left upper arm PAST SURGICAL HISTORY OF RIGHT TRIGGER THUMB PAST SURGICAL HISTORY OF 06/20 cataract revision; bilateral eyes PAST SURGICAL HISTORY OF Bilateral 2014 Cataract surgery Family History FAMILY HISTORY Problem Relation Age of Onset Cancer Father LIVER Heart Father CABG Heart Mother Osteoporosis Mother Diabetes Paternal Grandmother Breast Cancer Maternal Aunt Patient Allergies ALLERGIES Allergen Reactions Palm Oil GI Upset Accupril [Quinapril* Other: See Comments Pt unsure why this is listed. Not sure what allergy is Asa [Salicylates] GI Upset Penicillins Hives Vicodin [Hydrocodon* GI Upset Bees Codeine Intolerance Doxycycline GI Upset Metformin GI Upset diarrhea higher dose Current Medications Current Outpatient Medications on File Prior to Visit Medication Sig metFORMIN ER (GLUCOPHAGE XR) 500 mg 24 hr tablet TAKE 2 TABLETS BY MOUTH EVERY DAY WITH BREAKFAST levothyroxine (SYNTHROID) 50 mcg tablet TAKE 1 TABLET BY MOUTH EVERY DAY ON EMPTY STOMACH FOR THYROID FLUoxetine (PROZAC) 10 mg capsule TAKE 1 CAPSULE BY MOUTH EVERY DAY ALPRAZolam (XANAX) 0.5 mg tablet Take 1 tablet by mouth twice daily as needed for up to 90 days. fluticasone (FLONASE) 50 mcg/actuation nasal spray USE 2 SPRAYS IN EACH NOSTRIL ONCE DAILY. RINSE MOUTH AFTER USE. loratadine (CLARITIN) 10 mg tablet TAKE 1 TABLET BY MOUTH EVERY DAY albuterol HFA (PROVENTIL HFA, VENTOLIN HFA) 90 mcg/actuation inhaler INHALE 2 PUFFS INSTRUCTED EVERY 6 HOURS NEEDED FOR WHEEZING/SHORTNESS OF BREATH. glimepiride (AMARYL) 4 mg tablet Take 1 tablet by mouth once daily. atorvastatin (LIPITOR) 10 mg tablet Take 1 tablet by mouth once daily. lisinopril (ZESTRIL) 10 mg tablet Take 1 tablet by mouth once daily. therapeutic multivitamin w/ iron (THERAGRAN-M) 27-0.4 mg tablet Take 1 tablet by mouth once daily. COLLAGEN MISC Take 1 Dose by mouth once daily. Pt mixes one scope of collagen powder creamer in tea or coffee daily. Pt unable to confirm which OTC product/brand she takes. cannabidiol, CBD, (CANNABIDIOL ORAL) Take 1-2 Each by mouth once daily. Pt reports taking 1-2 CBD gummies OTC daily for pain and muscle aches. Pt purchases these online and was unable to confirm the dose or brand. Pt does not report endorsement of this medication from a provider. famotidine (PEPCID) 20 mg tablet Take 1 tablet by mouth at bedtime as needed. ACETAMINOPHEN 500 MG TAB Take 500 mg by mouth every 8 hours as needed for pain. No more than 4000 mg of acetaminophen should be given per day (FROM ALL SOURCES) No current facility-administered medications on file prior to visit. Social History Social History Tobacco Use Smoking status: Every Day Packs/day: 0.25 Years: 30.00 Pack years: 7.50 Types: Cigarettes Smokeless tobacco: Never Tobacco comments: Smoking 3 cigarettes per day Vaping Use Vaping Use: Never used Substance Use Topics Alcohol use: Yes Comment: occasionally, 2 mixed drinks per month Drug use: No EXAM: BP 122/74 Pulse 68 Resp 16 Wt 81.3 kg (179 lb 3.2 oz) BMI 32.78 kg/m General Appearance: Well appearing, alert, in no acute distress, well-hydrated, well nourished. and Overweight. Lungs: Lungs clear to auscultation. No wheezing, rhonchi, rales.. Heart: RRR without murmur, gallop, or rubs. No ectopy. Hands: lenora; cyst of joint, tenderness on palpation to tendon of thumb, no swelling. Health Maintenance List BP CONTROLLED (<130/80) Never done DILATED RETINAL EXAM due on 04/07/2016 DTAP,TDAP,TD(2 - Td or Tdap) due on 02/26/2017 DIABETIC FOOT EXAM due on 08/25/2020 HBA1C due on 12/27/2021 INFLUENZA(1) due on 03/08/2022 HEPATITIS C SCREENING due on 09/26/2022 COVID-19 VACCINE(5 - Booster for Pfizer series) due on 04/16/2022 URINE ALBUMIN:CREATININE RATIO due on 09/26/2022 LDL CHOLESTEROL due on 09/26/2022 DEPRESSION SCREENING due on 09/26/2022 ANNUAL PCP TEAM CHRONIC DISEASE VISIT due on 11/23/2022 BONE DENSITY Completed ADVANCE DIRECTIVE DISCUSSION Completed SHINGRIX VACCINE Completed PNEUMOCOCCAL: 65+ Completed Data reviewed In process-will notify of results ASSESSMENT/PLAN: 1. Uncontrolled type 2 diabetes mellitus with hyperglycemia (HCC) - ICD9: 250.02, ICD10: E11.65 (primary diagnosis) uncontrolled - Continue current medications - Add Trulicity 0.75 mg weekly for 4 weeks, then 1.5 mg weekly - Discontinue metformin (Glucophage) 2. Mixed hyperlipidemia - ICD9: 272.2, ICD10: E78.2 - to be determined upon return of lab results - Continue current medication. - Encouraged following a low fat, low cholesterol diet. - Discussed the benefits of regular aerobic exercise and weight loss. 3. Hypertension, unspecified type - ICD9: 401.9, ICD10: I10 - good control - Recommended regular aerobic exercise. - Recommend home blood pressure monitoring, to bring results in on next visit - Continue with Lisinopril 10 mg daily - Goal of BP <130/80 4. Anxiety state - ICD9: 300.00, ICD10: F41.1 Controlled Continue current medications. 5. Fall, initial encounter - ICD9: E888.9, ICD10: W19.XXXA [place] and Walker recommended, pt refuses 6. Hypothyroidism, unspecified type - ICD9: 244.9, ICD10: E03.9 - Instructed patient on importance of taking on an empty stomach either first thing in the morning or at bedtime. Continue current medications. 7. Arthritis of both hands - ICD9: 716.94, ICD10: M19.041, M19.042 Continue to monitor, recommend ice If worsens, will refer to Ortho Follow up in 3 months with labs prior. Office will notify pt of lab results that she will do next week I agree with the Chief Complaint, ROS, and Past Histories independently gathered by the clinical client support manager and the remaining scribed note accurately describes my personal service to the patient. Medical Decision Making: Problems: Moderate: 1+ chronic illnesses with change and 2+ stable chronic illnesses Data: Unique test(s) ordered: 3+ Risk: Moderate: Drug management Medical Decision Making Level: 4 - Moderate Deirdre Quiñones MD . The documentation for this note was completed by Kourtney Kincaid Ma acting as scribe for Deirdre Quiñones MD. April 05, 2022 9:36 AM. Kourtney Kincaid Ma documented in this encounter [facility] 03-23-2022 Miscellaneous Notes The following approved medication requests have been transmitted electronically. Requested Prescriptions Pending Prescriptions Disp Refills metFORMIN ER (GLUCOPHAGE XR) 500 mg 24 hr tablet 60 tablet 11 Sig: TAKE 2 TABLETS BY MOUTH EVERY DAY WITH BREAKFAST Jay Tran APRN.CNP Last office visit: 11/23/21 Next appointment scheduled: 04/05/22 Last labs: 09/26/21 Patient has been identified by name and date of : Yes Requested Prescriptions Pending Prescriptions Disp Refills metFORMIN ER (GLUCOPHAGE XR) 500 mg 24 hr tablet 60 tablet 11 Sig: TAKE 2 TABLETS BY MOUTH EVERY DAY WITH BREAKFAST RX INSTRUCTIONS: Patient aware RX will be sent to pharmacy. No need to notify patient. Ivette Broussard documented in this encounter [facility] 03-20-2022 Miscellaneous Notes The following approved medication requests have been transmitted electronically. Requested Prescriptions Pending Prescriptions Disp Refills levothyroxine (SYNTHROID) 50 mcg tablet [Pharmacy Med Name: LEVOTHYROXINE 50 MCG TABLET] 90 tablet 3 Sig: TAKE 1 TABLET BY MOUTH EVERY DAY ON EMPTY STOMACH FOR THYROID FLUoxetine (PROZAC) 10 mg capsule [Pharmacy Med Name: FLUOXETINE HCL 10 MG CAPSULE] 90 capsule 3 Sig: TAKE 1 CAPSULE BY MOUTH EVERY DAY Refused Prescriptions Disp Refills glimepiride (AMARYL) 2 mg tablet [Pharmacy Med Name: GLIMEPIRIDE 2 MG TABLET] 90 tablet 3 Sig: TAKE 1 TABLET BY MOUTH EVERY DAY Refused By: CYNTHIA PRITCHARD LPN Reason for Refusal: Records indicate that there is a valid prescription at the pharmacy Jay Tran APRN.MANDY Last office visit: 11/23/21 Next appointment scheduled: 04/05/22 Last labs: 09/26/21 Pharmacy calls in requesting the following refill(s): Requested Prescriptions Pending Prescriptions Disp Refills levothyroxine (SYNTHROID) 50 mcg tablet [Pharmacy Med Name: LEVOTHYROXINE 50 MCG TABLET] 90 tablet 3 Sig: TAKE 1 TABLET BY MOUTH EVERY DAY ON EMPTY STOMACH FOR THYROID FLUoxetine (PROZAC) 10 mg capsule [Pharmacy Med Name: FLUOXETINE HCL 10 MG CAPSULE] 90 capsule 3 Sig: TAKE 1 CAPSULE BY MOUTH EVERY DAY Refused Prescriptions Disp Refills glimepiride (AMARYL) 2 mg tablet [Pharmacy Med Name: GLIMEPIRIDE 2 MG TABLET] 90 tablet 3 Sig: TAKE 1 TABLET BY MOUTH EVERY DAY Refused By: CYNTHIA PRITCHARD LPN Reason for Refusal: Records indicate that there is a valid prescription at the pharmacy documented in this encounter [facility] 01-17-2022 Miscellaneous Notes Approved PDMP website checked and validated. All prescriptions have been APPROPRIATELY filled. No suspicious activity was identified. 01/17/2022 by Jay Tran APRN.CNP The following approved medication requests have been transmitted electronically. Signed Prescriptions Disp Refills ALPRAZolam (XANAX) 0.5 mg tablet 60 tablet 2 Sig: Take 1 tablet by mouth twice daily as needed for up to 90 days. BECKIE Class: C-IV ANNY: No Authorizing Provider: JAY TRAN APRN.CNP Last office visit: 11/23/21 F/u scheduled: 04/05/22 Last refilled on: xanax #60 with 2 refills on 10/20/21 Kourtney Kincaid Ma Patient has been identified by name and date of : Yes Pending Prescriptions Disp Refills ALPRAZOLAM 0.5 MG TABLET 60 tablet 2 Sig: Take 1 tablet by mouth twice daily as needed for up to 90 days. BECKIE Class: C-IV ANNY: No RX INSTRUCTIONS: Patient aware RX will be sent to pharmacy. No need to nofity patient. Controlled medication - must be call in. Paty Reid Pss documented in this encounter [facility] 12-11-2021 Miscellaneous Notes TC to pt. LM to call office, ask for triage nurse to get update for loratadine. Updated pt that there are refills on requested medication and to call there pharm. Odalis Valentino LPN documented in this encounter [facility] 11-25-2021 Miscellaneous Notes Patient returned call and went over notes from Dr Sales with understanding. Aware rx to pharmacy. Patient said she is trying to have pharmacy deliver medication to her today. Kept going on and on about needing to be seen by her PCP not by a different provider each time. Patient telephoned. Message left to call back for update. Tika Galeano LPN This medication may be cheaper for her and is a similar drug to the one prescribed previously. With her allergies and medication intolerances, this would be an appropriate antibiotic to treat a sinus infection. Patient to follow up with PCP if symptoms not improving after she finishes the course of abx. Symptoms may not have completely resolved, but should be improving. Phoned patient and updated her on this and she complained about cost. I advised her the physicians have no way of knowing what her cost will be after insurance. She complained it took 2 days before med was in at her pharmacy. Explained to her this is her pharmacy not her physicians fault. Patient asking why picked this med? Advised patient unable to provide specifics at this time as provider is gone for the day but advised her could possibly have an answer tomorrow, but possibly up to 3 business days. I discussed with her in the office that a z pack will not help her sinus infection. She has allergies to penicillin and had GI upset with the doxycycline. I will send in rx for Omnicef instead for 10 days. This should be significantly cheaper. Call with any side effects or if symptoms not improved after the 10 days. Patient calls to request an antibiotic change. Patient went to [facility] the cefpodoxime 200 mg and the cost was going to be $100. Patient reports she can't afford that and is requesting something different. Patient reports she has taken Z-vitaliy in the past for same symptoms with positive results and is asking if provider would consider this medication. Order pended for review. Patient is upset that it took pharmacy 2 days to get medication in and she isn't able to afford it. She reports that is two days that she could already be feeling better. Patient wants Dr. Sales and Dr. Quiñones to know of her frustrations. Tanisha Connors RN documented in this encounter [facility] 11-23-2021 Miscellaneous Notes Images from the original note were not included. Patient returned call for results of chest xray. Results XR CHEST 2V FRONTAL/LAT (Order [id number]) Patient Info Patient Name Sex Sheree Egan ([id number]) Female 1945 11/23/2021 12:27 PM - Radiology, [place] In Impression IMPRESSION: No acute radiographic abnormality. 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 RESULT: Lines, tubes, and devices: None. Lungs and pleura: No consolidation. No lung mass. No pleural effusion. No pneumothorax. Cardiomediastinal silhouette: Normal cardiomediastinal silhouette. Bones and soft tissues: Moderate degenerative change and osteophytosis throughout the dorsal spine Result History XR CHEST 2V FRONTAL/LAT (Order #[id number]) on 11/23/2021 - Order Result History Report Result Information Status Provider Status Final result (11/23/2021 12:27 PM) Reviewed Exam Performed Date and Time 11/23/2021 12:17 PM Resulting Agency [id number] [id number] XR CHEST 2V FRONTAL/LAT: Result Notes Mansi Green Ma 11/23/2021 2:07 PM EDT Left message for patient on Tahir Sales MD 11/23/2021 2:00 PM EDT Normal chest xray. Continue treatment as discussed in office. Went over results, notes from Dr Sales with understanding. documented in this encounter [facility] 11-23-2021 History of Present illness Narrative Radiology Service Progress Note PATIENT NAME: Sheree Chavez DATE OF SERVICE: November 23, 2021 TIME: 12:03 PM PATIENT IDENTITY VERIFICATION COMPLETED USING TWO (2) IDENTIFIERS: Name and Date of confirmed by patient verbally. FALL SCREENING: Has the patient had 2 falls in the last year or 1 fall with injury or currently using an Ambulatory Assistive Device (Walker, Cane, Wheelchair, Crutches, etc.)? No PATIENT GENDER DATA: Female. status: : No status: NO. PATIENT RELEVANT IMPLANT DATA REVIEWED: Yes RADIOLOGY DEPARTMENT: General X-ray: Exam(s) Completed: Chest X-Ray PERIPHERAL IV DATA: Not applicable SIGNED BY: RT Magan(Concepción) November 23, 2021 12:03 PM documented in this encounter [facility] 11-21-2021 Miscellaneous Notes No specific recommendations Deirdre Quiñones MD Pt called and is notified of providers message and instructions. Pt voices understanding. She states she took a home Covid test and it was negative, but she's not sure if it was but she thinks it was accurate. She says she has a history of sinus infections, strep throat, and tonsillitis. Pt also says [place]. She states the sore throat is really bad and she is starting to lose her voice. Pt was told to go to and they can test for Strep and retest for Covid. She states she is going to give it a couple days and see how it goes. Pt told if she gets any worse that she needs to be seen. Pt asking if the provider would recommend any medications. Please call and advise. Marcela Ross RN Call to pt, received . LM on to return call to office and ask to speak with FM Triage Nurse. Please relay information below to pt. Radha Del Rosario Ma Noted; I would encourage her to be evaluated and tested for Covid, as we do have oral therapies that can be used to treat Covid, but need to be started with n five days of the onset of symptoms Deirdre Quiñones MD Patient calling to inform this nurse of her current symptoms and help decide best course of action. Patient states 2 days ago, she developed a sore throat, cough, headache, nasal congestion, fatigue and her chest feels tight at times from coughing. Unsure if fever. Patient vaccinated for covid, not boostered. Her medical history was reviewed. Patient instructed to seek for evaluation and further testing today, x 2. Patient states she is going to rest today and think about getting tested for covid or Strep. She states she is undecided yet. Brianne Carr RN documented in this encounter [facility] 11-16-2021 History of Present illness Narrative CC: Patient presents with: Acute Visit: possible bronchitis x 4 days HPI: Sheree Chavez is a 76 year old female who presents to the office with complaint of head congestion, cough, nonproductive and sore throat for a few days. Symptoms are worsening Associated symptoms includes cough. Denies fever, nausea, vomiting and diarrhea. Treatments tried include nothing so far. with no relief of symptoms. Sick contacts: unknown. History of asthma, frequent episodes of bronchitis, chronic bronchitis, bronchiectasis or COPD: No Smoker: No Seasonal/environmental allergies: No The ROS is otherwise negative. The patient's pmh, medications, allergies, and past visits are reviewed. PHYSICAL EXAM: BP 124/74 Pulse 85 Temp 36.3 C (97.4 F) Resp 21 Wt 82.1 kg (181 lb) SpO2 97% BMI 33.11 kg/m General appearance: alert, cooperative, pleasant, in no acute distress Head: Normocephalic Eyes: EOM's intact, conjunctiva pink and moist, no icterus, sclera white, non-injected Ears: Right ear: External ear/canal- Normal, TM - clear with good landmarks. Left ear: External ear/canal- Normal, TM - clear with good landmarks Oropharynx:moist without lesions, No erythema, exudates or tonsillar hypertrophy. Heart: Negative. RRR without obvious murmur, gallop, or rubs. No ectopy. Lungs: clear to auscultation, without rales or wheeze, good air exchange PAST MEDICAL HISTORY Diagnosis Date Absence of menstruation Anxiety state, unspecified Benign neoplasm of colon Diverticulosis of colon (without mention of hemorrhage) Esophageal reflux Essential hypertension, benign Internal hemorrhoids without mention of complication Mental disorder Obesity, unspecified Other and unspecified hyperlipidemia Type II or unspecified type diabetes mellitus without mention of complication, not stated as uncontrolled PAST SURGICAL HISTORY Procedure Laterality Date BIOPSY BREAST OPEN INCISIONAL Bx of breast, incisional COLONOSCOPY FLX DX W/COLLJ SPEC WHEN PFRMD 02/21/15 Colonoscopy COLSC FLX W/RMVL OF TUMOR POLYP LESION SNARE TQ 01/21/08 DESTRUCTION BENIGN LESIONS UP TO 14 11/13/07 Partially avulsed SK left upper arm PAST SURGICAL HISTORY OF RIGHT TRIGGER THUMB PAST SURGICAL HISTORY OF 06/20 cataract revision; bilateral eyes PAST SURGICAL HISTORY OF Bilateral 2014 Cataract surgery ALLERGIES Palm Oil, Accupril [Quinapril Hcl], Asa [Salicylates], Penicillins, Vicodin [Hydrocodone-Acetaminophen], Bees, Codeine, and Metformin MEDICATIONS ALPRAZolam (XANAX) 0.5 mg tablet Take 1 tablet by mouth twice daily as needed for up to 90 days. glimepiride (AMARYL) 4 mg tablet Take 1 tablet by mouth once daily. atorvastatin (LIPITOR) 10 mg tablet Take 1 tablet by mouth once daily. lisinopril (ZESTRIL) 10 mg tablet Take 1 tablet by mouth once daily. therapeutic multivitamin w/ iron (THERAGRAN-M) 27-0.4 mg tablet Take 1 tablet by mouth once daily. COLLAGEN MISC Take 1 Dose by mouth once daily. Pt mixes one scope of collagen powder creamer in tea or coffee daily. Pt unable to confirm which OTC product/brand she takes. cannabidiol, CBD, (CANNABIDIOL ORAL) Take 1-2 Each by mouth once daily. Pt reports taking 1-2 CBD gummies OTC daily for pain and muscle aches. Pt purchases these online and was unable to confirm the dose or brand. Pt does not report endorsement of this medication from a provider. levothyroxine (SYNTHROID) 50 mcg tablet Take 1 tablet by mouth once daily. DOSE CHANGE. Take on empty stomach. For Thyroid FLUoxetine (PROZAC) 10 mg capsule Take 1 capsule by mouth once daily. metFORMIN ER (GLUCOPHAGE XR) 500 mg 24 hr tablet TAKE 2 TABLETS BY MOUTH EVERY DAY WITH BREAKFAST famotidine (PEPCID) 20 mg tablet Take 1 tablet by mouth at bedtime as needed. ACETAMINOPHEN 500 MG TAB Take 500 mg by mouth every 8 hours as needed for pain. No more than 4000 mg of acetaminophen should be given per day (FROM ALL SOURCES) predniSONE (DELTASONE) 20 mg tablet Take 2 tablets by mouth once daily for 5 days. fluticasone (FLONASE) 50 mcg/actuation nasal spray Use 2 Sprays in each nostril once daily. Rinse mouth after use. albuterol HFA (PROVENTIL HFA, VENTOLIN HFA) 90 mcg/actuation inhaler Inhale 2 Puffs as instructed every 6 hours as needed for wheezing/shortness of breath. Inhalational Spacing Device 1 Device one time only for 1 dose. loratadine (CLARITIN) 10 mg tablet Take 1 tablet by mouth once daily. FAMILY HISTORY Problem Relation Age of Onset Cancer Father LIVER Heart Father CABG Heart Mother Osteoporosis Mother Diabetes Paternal Grandmother Breast Cancer Maternal Aunt Social History Tobacco Use Smoking status: Current Every Day Smoker Packs/day: 0.25 Years: 30.00 Pack years: 7.50 Types: Cigarettes Smokeless tobacco: Never Used Tobacco comment: Smoking 3 cigarettes per day Vaping Use Vaping Use: Never used Substance Use Topics Alcohol use: Yes Comment: occasionally, 2 mixed drinks per month Drug use: No ASSESSMENT/PLAN: 1. Congestion of nasal sinus - ICD9: 478.19, ICD10: R09.81 Albuterol PRN, flonase, prednsione for 5 days, claritin daily. Prescription instructions reviewed with patient as applicable. Potential red flag symptoms discussed with the patient. Reviewed appropriate action plan to take if red flag symptoms occur. Patient agreeable to treatment plan. Maura Morillo APRN.MANDY documented in this encounter [facility] 10-20-2021 Miscellaneous Notes Duplication. Pt notified. Kamille Nova LPN Please let know that Dr. Quiñones called Rx in on 10/20, it is at the pharmacy. Jay Tran APRN.MANDY rx refused. Last refilled : 10/20/21 #60 2 refills Lu Mayer Ma Patient has been identified by name and date of : Yes Pending Prescriptions Disp Refills ALPRAZOLAM 0.5 MG TABLET 60 tablet 2 Sig: Take 1 tablet by mouth twice daily as needed for up to 90 days. BECKIE Class: C-IV ANNY: No RX INSTRUCTIONS: Patient aware RX will be sent to pharmacy. No need to notify patient. Yasmin Reid documented in this encounter [facility] 10-20-2021 Miscellaneous Notes The following approved medication requests have been transmitted electronically. Signed Prescriptions Disp Refills ALPRAZolam (XANAX) 0.5 mg tablet 60 tablet 2 Sig: Take 1 tablet by mouth twice daily as needed for up to 90 days. BECKIE Class: C-IV ANNY: No Authorizing Provider: DEIRDRE QUIÑONES MA OK to refill as ordered Deirdre Quiñones MD Patient out of medication. Patient has been identified by name and date of : Yes Patient phones for refill(s): Pending Prescriptions Disp Refills ALPRAZOLAM 0.5 MG TABLET 60 tablet 2 Sig: Take 1 tablet by mouth twice daily as needed for up to 90 days. BECKIE Class: C-IV ANNY: No Date of last office visit in primary care: 09/26/21 Last 2 Encounter Wt Readings: Date: Wt: 09/26/2021 81.9 kg (180 lb 9.6 oz) 07/18/2021 80.7 kg (178 lb) Previous labs/tests for medication: Not applicable Please advise. Thank you. Francisca Chappell LPN documented in this encounter [facility] 09-29-2021 Miscellaneous Notes Patient notified of results and provider's instructions. Patient verbalizes understanding. Maine Armando RN TC to pt. LM to call office, ask for triage nurse to get results. Odalis Valentino LPN Please notify patient that her lab results show that her A1c is high at 9.3. I would suggest increasing the glimepiride from 2 mg to 4 mg daily, and see if this helps lower her sugars. I sent in a new prescription for the 4 mg pill. Also continue to work on diet. Follow up as planned with labs and office visit in 6 months Deirdre Quiñones MD documented in this encounter [facility] 09-26-2021 Nurse Note DM letter faxed to pt's Eye Doctor, Dr. Say Gonsalez at F#: [phone]. Radha Del Rosario Ma documented in this encounter [facility] 09-26-2021 Instructions Radha Del Rosario Ma - 09/26/2021 10:30 AM EDT Dizziness - Decrease blood pressure medication Lisinopril 20 mg daily to 10 mg. New prescription has been sent into pharmacy. documented in this encounter [facility] 09-26-2021 History of Present illness Narrative Chief Complaint Follow up HPI Sheree Chavez is a 75 year old female who presents here today for a annual follow up Pt presents today for a yearly follow up. Pt last seen for routine follow up on 09/14/20. She's mostly fasting, did drink 1 cup of water and 2 swallows of Boost. Smoking - Continues to smoke a little bit. She would like to not smoke. GI/Urinary - Continued issues with diarrhea and upset stomach, worse since having tick bite. At times will have bouts of diarrhea, going several times per day. Unsure what the cause is, if food or medications. Uses Pepcid 20 mg prn. Hx of diverticulitis. HTN - Denies checking BP at home or having chest pain or sob. Notes some dizziness, but feels this is related to medications she takes or if standing too quickly. On current regimen of Lisinopril 20 mg once daily. Anxiety - Taking Xanax 0.5 mg 1 tab po 1-2 tabs daily and Prozac 10 mg once daily. Pt notes she could do without Xanax but it does help her sleep, keeps her on even keel. Also takes CBD gummies. Thyroid - Stable on current regimen of Levothyroxine 50 mcg once daily. Denies any missed dosages. DM - Denies checking sugars at home. States that she does get lows if she doesn't eat. Denies any neuropathy symptoms. On current regimen of Amaryl 2 mg 1 tab po once daily and Metformin ER 500 mg 2 tabs po every am. Lipids - Denies any issues with current regimen of Lipitor 10 mg once daily. Neuro - Since her last visit pt fell at home in May hitting her head and was notified to go the ER by our office. Pt was admitted into [facility] on 05/11/21 with dx of subdural hematoma, TBI and Subarachnoid hemorrhage. Pt was d/c home on 05/13/21 and advised to f/u with Neuro team. Pt has been following with them once monthly to monitor pt. Most recent CT scan showed resolution of the interhemispheric subdural and subarachnoid hemorrhage. She was cleared from Neuro. Pt states that she does have some pain at location. Does note some weakness from being in her home. Once weather changes get out more. Derm - Called into the office on 09/21/21 with a tick bite. Pt states she was able to remove the entire tick when she noticed this while taking a shower on her side. Pt states that since that time she has not felt well. She kept the tick that she pulled off and brought in today. Pt believes she's had a reaction to this. Her symptoms started yesterday with waking up with a headache, myalgia, muscle pain, arm pain and leg pain. Did take one Tylenol and 1 Ibuprofen and laid around all day. Has a slight rash, but this has improved. Pt would prefer to get treated for Lyme disease. R Hand - Lump on her hand that she would like to have evaluated. Does a lot of crocheting and uses her hands a lot, which cause her pain. HM - Declines Hep C. Declines Depression symptoms. Letter sent to [facility] for Retinal exam. Pt has living will/Adv Directive - Son is POA. Past medical history, appointments, medications, allergies reviewed. Previous Medical History PAST MEDICAL HISTORY Diagnosis Date Absence of menstruation Anxiety state, unspecified Benign neoplasm of colon Diverticulosis of colon (without mention of hemorrhage) Esophageal reflux Essential hypertension, benign Internal hemorrhoids without mention of complication Mental disorder Obesity, unspecified Other and unspecified hyperlipidemia Type II or unspecified type diabetes mellitus without mention of complication, not stated as uncontrolled Previous Surgical History PAST SURGICAL HISTORY Procedure Laterality Date BIOPSY BREAST OPEN INCISIONAL Bx of breast, incisional COLONOSCOPY FLX DX W/COLLJ SPEC WHEN PFRMD 02/21/15 Colonoscopy COLSC FLX W/RMVL OF TUMOR POLYP LESION SNARE TQ 01/21/08 DESTRUCTION BENIGN LESIONS UP TO 14 11/13/07 Partially avulsed SK left upper arm PAST SURGICAL HISTORY OF RIGHT TRIGGER THUMB PAST SURGICAL HISTORY OF 06/20 cataract revision; bilateral eyes PAST SURGICAL HISTORY OF Bilateral 2015 Cataract surgery Family History FAMILY HISTORY Problem Relation Age of Onset Cancer Father LIVER Heart Father CABG Heart Mother Osteoporosis Mother Diabetes Paternal Grandmother Breast Cancer Maternal Aunt Patient Allergies ALLERGIES Allergen Reactions Palm Oil GI Upset Accupril [Quinapril* Other: See Comments Pt unsure why this is listed. Not sure what allergy is Asa [Salicylates] GI Upset Penicillins Hives Vicodin [Hydrocodon* GI Upset Bees Codeine Intolerance Metformin GI Upset diarrhea higher dose Current Medications Current Outpatient Medications on File Prior to Visit Medication Sig lisinopril (ZESTRIL, PRINIVIL) 20 mg tablet TAKE 1 TABLET BY MOUTH EVERY DAY ALPRAZolam (XANAX) 0.5 mg tablet Take 1 tablet by mouth twice daily as needed for up to 90 days. therapeutic multivitamin w/ iron (THERAGRAN-M) 27-0.4 mg tablet Take 1 tablet by mouth once daily. fluticasone (FLONASE) 50 mcg/actuation nasal spray Use 1 [place] in each nostril once daily as needed. COLLAGEN MISC Take 1 Dose by mouth once daily. Pt mixes one scope of collagen powder creamer in tea or coffee daily. Pt unable to confirm which OTC product/brand she takes. cannabidiol, CBD, (CANNABIDIOL ORAL) Take 1-2 Each by mouth once daily. Pt reports taking 1-2 CBD gummies OTC daily for pain and muscle aches. Pt purchases these online and was unable to confirm the dose or brand. Pt does not report endorsement of this medication from a provider. levothyroxine (SYNTHROID) 50 mcg tablet Take 1 tablet by mouth once daily. DOSE CHANGE. Take on empty stomach. For Thyroid FLUoxetine (PROZAC) 10 mg capsule Take 1 capsule by mouth once daily. glimepiride (AMARYL) 2 mg tablet Take 1 tablet by mouth once daily. metFORMIN ER (GLUCOPHAGE XR) 500 mg 24 hr tablet TAKE 2 TABLETS BY MOUTH EVERY DAY WITH BREAKFAST atorvastatin (LIPITOR) 10 mg tablet Take 1 tablet by mouth once daily. famotidine (PEPCID) 20 mg tablet Take 1 tablet by mouth at bedtime as needed. ACETAMINOPHEN 500 MG TAB Take 500 mg by mouth every 8 hours as needed for pain. No more than 4000 mg of acetaminophen should be given per day (FROM ALL SOURCES) No current facility-administered medications on file prior to visit. Social History Social History Tobacco Use Smoking status: Current Every Day Smoker Packs/day: 0.25 Years: 30.00 Pack years: 7.50 Types: Cigarettes Smokeless tobacco: Never Used Tobacco comment: Smoking 3 cigarettes per day Vaping Use Vaping Use: Never used Substance Use Topics Alcohol use: Yes Comment: occasionally, 2 mixed drinks per month Drug use: No EXAM: BP 124/70 (BP Site: Left Arm, BP Position: Sitting, BP Cuff Size: Regular Adult) Pulse 66 Resp 16 Ht 157.5 cm (5' 2) Wt 81.9 kg (180 lb 9.6 oz) BMI 33.03 kg/m General Appearance: Well appearing, alert, in no acute distress, well-hydrated, well nourished and Overweight. Head: Lump located on the back of head, softer Skin: Right side evaluated, slight redness in area of tick bite, no bullseye lesions Neck: Supple, no adenopathy; thyroid symmetric, normal size, no bruits. Lungs: Lungs clear to auscultation. No wheezing, rhonchi, rales.. Heart: RRR without murmur, gallop, or rubs. No ectopy. Extremities: right hand examined. Appears to be a ganglion cyst on dorsum of hand at base of thumb Health Maintenance List HEPATITIS C SCREENING Never done - Declines BP CONTROLLED (<130/80) Never done DILATED RETINAL EXAM due on 04/07/2016 - Letter being faxed to Eye Provider DTAP,TDAP,TD(2 - Td or Tdap) due on 02/26/2017 HBA1C due on 07/26/2020 - Labs ordered URINE ALBUMIN:CREATININE RATIO due on 08/22/2020 - labs ordered DIABETIC FOOT EXAM due on 08/25/2020 LDL CHOLESTEROL due on 04/25/2021 - labs ordered ADVANCE DIRECTIVE DISCUSSION Never done ANNUAL PCP TEAM CHRONIC DISEASE VISIT due on 09/14/2021 DEPRESSION SCREENING due on 09/14/2021 - Declines depression symptoms BONE DENSITY Completed INFLUENZA Completed PNEUMOVAX AGE 65 AND OVER WITH 5YR LOOKBACK Completed SHINGRIX VACCINE Completed COVID-19 VACCINE Completed MENINGOCOCCAL CONJUGATE Aged Out Data reviewed Epic ASSESSMENT/PLAN: 1. Wellness examination - ICD9: V70.0, ICD10: Z00.00 (primary diagnosis) - Counseled on healthy diet and regular exercise - CBC + DIFF - TSH BLD - HGB A1C - LIPID PANEL BASIC - COMP METABOLIC PANEL - ALBUMIN/CREAT RATIO RND UR 2. Diarrhea, unspecified type - ICD9: 787.91, ICD10: R19.7 - check labs - CBC + DIFF 3. Hypertension, unspecified type - ICD9: 401.9, ICD10: I10 - good control - Decrease lisinopril (Zestril/Prinivil) 10 mg - Recommended regular aerobic exercise. - Recommend home blood pressure monitoring, to bring results in on next visit - Goal of BP <130/80 - LIPID PANEL BASIC - COMP METABOLIC PANEL - LISINOPRIL 10 MG TABLET 4. Hypothyroidism, unspecified type - ICD9: 244.9, ICD10: E03.9 - Instructed patient on importance of taking on an empty stomach either first thing in the morning or at bedtime. - check labs - TSH BLD 5. Mixed hyperlipidemia - ICD9: 272.2, ICD10: E78.2 - Check labs -Continue current medication regimen. - ATORVASTATIN 10 MG TABLET - LIPID PANEL BASIC - COMP METABOLIC PANEL 6. Type 2 diabetes mellitus without complication, without long-term current use of insulin (HCC) - ICD9: 250.00, ICD10: E11.9 - check labs - HGB A1C - COMP METABOLIC PANEL - ALBUMIN/CREAT RATIO RND UR 7. Anxiety state - ICD9: 300.00, ICD10: F41.1 - Continue current medication regimen. 8. Subarachnoid hemorrhage following injury, no loss of consciousness, sequela (HCC) - ICD9: 907.0, ICD10: S06.6X0S - Stable today 9. Tobacco use - ICD9: 305.1, ICD10: Z72.0 - Cessation encouraged. - Physiologic and physical aspects of tobacco addiction as well as strategies for quitting were discussed. - Counseling was given focusing on the harmful effects of this addiction especially given the patient's medical condition(s) which will be worsened because of the chemicals in tobacco. 10. Tick bite, unspecified site, initial encounter - ICD9: 919.4, E906.4, ICD10: W57.XXXA - Treat with empiric abx. - DOXYCYCLINE HYCLATE 100 MG TABLET Follow up in 6 months. Complete labs today. I agree with the Chief Complaint, ROS, and Past Histories independently gathered by the clinical client support manager and the remaining scribed note accurately describes my personal service to the patient. Medical Decision Making: Problems: Low: Acute, uncomplicated illness or injury Moderate: 2+ stable chronic illnesses Data: Unique test(s) ordered: 3+ Risk: Moderate: Drug management Medical Decision Making Level: 4 - Moderate Deirdre Quiñones MD The documentation for this note was completed by Radha Del Rosario Ma acting as scribe for Deirdre Quiñones MD. September 26, 2021 10:33 AM. Radha Del Rosario Ma documented in this encounter [facility] 07-18-2021 Note HNO ID: [id number] Author: Darrick Pierre MD Service: ? Author Type: Physician Type: Progress Notes Filed: 07/18/2021 11:27 AM Note Text: NEUROSURGERY FOLLOW UP OFFICE NOTE Dr. Darrick Pierre MD, FACS Date of visit:July 18, 2021 Patient Name: Ms.Alma Darshan Chavez Date of : 1945 Current Age: [age] year old Sex: female MRN/E# [id number] Last Office Visit: June 08, 2021 Chief Complaint: Patient presents with: Established Patient SUBJECTIVE: The patient presents for a follow-up with imaging (CT B) for evaluation. She was initially seen in consult on 05/11/2021 after presenting to the emergency department with headache and lightheadedness. She was on a stool and fell backwards striking the right side of her head on the floor. She did not lose consciousness and denied taking any blood thinning medications. Imaging was completed and demonstrated a subdural hemorrhage along the falx and right frontoparietal convexity as well as a subarachnoid hemorrhage over the bilateral parietal convexities. Neurologically she was intact and no surgical intervention was indicated. Repeat imaging was stable. She has been seen and evaluated with imaging routinely since discharge and has overall done well. She was last seen 6 weeks ago and continued to report that she was doing well with only tenderness at the site where she struck her head. CT scan was reviewed and demonstrated evolution of the intracranial hemorrhages. Recommendation was to follow-up in [address] of the brain prompting her visit today. Since last visit she states she is slowly improving. She denies any significant headaches or concerns. She continues to have discomfort and occasional pain where she struck her head. No other issues. She presents for image review, evaluation and plan of care. Symptoms: Mild tenderness- right side of head PREVIOUS CONSERVATIVE TREATMENTS: None PREVIOUS SURGERY: None PAIN EVALUATION No data found in the last 1 encounters. PAST MEDICAL HISTORY Diagnosis Date - Absence of menstruation - Anxiety state, unspecified - Benign neoplasm of colon - Diverticulosis of colon (without mention of hemorrhage) - Esophageal reflux - Essential hypertension, benign - Internal hemorrhoids without mention of complication - Mental disorder - Obesity, unspecified - Other and unspecified hyperlipidemia - Type II or unspecified type diabetes mellitus without mention of complication, not stated as uncontrolled PAST SURGICAL HISTORY Procedure Laterality Date - BX OF BREAST; INCISIONAL Bx of breast, incisional - COLONOS W/REM POLYP SNARE 01/21/08 - COLONOSCOP W/ OR W/O BRSH SPEC 02/21/15 Colonoscopy - DESTR LESION BENIGN/PREMAL 11/13/07 Partially avulsed SK left upper arm - PAST SURGICAL HISTORY OF RIGHT TRIGGER THUMB - PAST SURGICAL HISTORY OF 06/20 cataract revision; bilateral eyes - PAST SURGICAL HISTORY OF Bilateral 2015 Cataract surgery FAMILY HISTORY Problem Relation Age of Onset - Cancer Father LIVER - Heart Father CABG - Heart Mother - Osteoporosis Mother - Diabetes Paternal Grandmother - Breast Cancer Maternal Aunt ALLERGIES Allergen Reactions - Palm Oil GI Upset - Accupril [Quinapril* Other: See Comments Pt unsure why this is listed. Not sure what allergy is - Asa [Salicylates] GI Upset - Penicillins Hives - Vicodin [Hydrocodon* GI Upset - Bees - Codeine Intolerance - Metformin GI Upset diarrhea higher dose Current Outpatient Medications Medication Sig Dispense Refill - ALPRAZolam (XANAX) 0.5 mg tablet Take 1 tablet by mouth twice daily as needed for up to 90 days. 60 tablet 2 - therapeutic multivitamin w/ iron (THERAGRAN-M) 27-0.4 mg tablet Take 1 tablet by mouth once daily. - fluticasone (FLONASE) 50 mcg/actuation nasal spray Use 1 [place] in each nostril once daily as needed. - COLLAGEN MISC Take 1 Dose by mouth once daily. Pt mixes one scope of collagen powder creamer in tea or coffee daily. Pt unable to confirm which OTC product/brand she takes. - cannabidiol, CBD, (CANNABIDIOL ORAL) Take 1-2 Each by mouth once daily. Pt reports taking 1-2 CBD gummies OTC daily for pain and muscle aches. Pt purchases these online and was unable to confirm the dose or brand. Pt does not report endorsement of this medication from a provider. - levothyroxine (SYNTHROID) 50 mcg tablet Take 1 tablet by mouth once daily. DOSE CHANGE. Take on empty stomach. For Thyroid 90 tablet 3 - FLUoxetine (PROZAC) 10 mg capsule Take 1 capsule by mouth once daily. 90 capsule 3 - glimepiride (AMARYL) 2 mg tablet Take 1 tablet by mouth once daily. 90 tablet 3 - metFORMIN ER (GLUCOPHAGE XR) 500 mg 24 hr tablet TAKE 2 TABLETS BY MOUTH EVERY DAY WITH BREAKFAST 60 tablet 11 - lisinopril (ZESTRIL) 20 mg tablet Take 1 tablet by mouth once daily. 90 tablet 3 - atorvastatin (LIPITOR) 10 mg tablet Take 1 tablet by mouth once daily. 90 (more content not included)... [facility] 06-08-2021 Note HNO ID: [id number] Author: Darrick Pierre MD Service: ? Author Type: Physician Type: Progress Notes Filed: 06/08/2021 11:57 AM Note Text: NEUROSURGERY FOLLOW UP OFFICE NOTE Dr. Darrick Pierre MD, [facility] Date of visit: June 08, 2021 Patient Name: Ms.Alma Darshan Chavez Date of : 1945 Current Age: [age] year old Sex: female MRN/E# [id number] Last Office Visit: May 25, 2021 Chief Complaint: Patient presents with: Established Patient SUBJECTIVE: The patient presents as a hospital follow-up with imaging (CT B) for evaluation. She was initially seen in consult on 05/11/2021 after presenting to the emergency department with headache and lightheadedness. She was on a stool and fell backwards striking the right side of her head on the floor. She did not lose consciousness and denied taking any blood thinning medications. Imaging was completed and demonstrated an anterior hemispheric posterior falx subdural hematoma as well as a subarachnoid hemorrhage bilaterally more on the right side and a surface hematoma in the right parietal lobe. Neurologically she was intact and no surgical intervention was indicated. Repeat imaging was stable. She was seen in the office 2 weeks after discharge with a repeat CT head. She reported that she was overall doing well with the exception of tenderness on the right side of her head where it was struck when she fell. CT scan was reviewed and demonstrated improvement in the intrahemispheric subdural and significant resolution of the surface hemorrhage in the right parietal region. Recommendation was to follow-up in 2 weeks with a repeat CT of the brain prompting her visit today. Since last visit she states she is overall doing well. Continues to have tenderness at the site where she struck her head but denies any new or concerning issues. She presents for image review, evaluation and plan of care. Symptoms: Mild tenderness- right side of head PREVIOUS CONSERVATIVE TREATMENTS: None PREVIOUS SURGERY: None PAIN EVALUATION 06/08/2021 1135 Pain Level: 2 Pain Location: Head Description: Sore Frequency: Intermittent PAST MEDICAL HISTORY Diagnosis Date - Absence of menstruation - Anxiety state, unspecified - Benign neoplasm of colon - Diverticulosis of colon (without mention of hemorrhage) - Esophageal reflux - Essential hypertension, benign - Internal hemorrhoids without mention of complication - Mental disorder - Obesity, unspecified - Other and unspecified hyperlipidemia - Type II or unspecified type diabetes mellitus without mention of complication, not stated as uncontrolled PAST SURGICAL HISTORY Procedure Laterality Date - BX OF BREAST; INCISIONAL Bx of breast, incisional - COLONOS W/REM POLYP SNARE 01/21/08 - COLONOSCOP W/ OR W/O BRSH SPEC 02/21/15 Colonoscopy - DESTR LESION BENIGN/PREMAL 11/13/07 Partially avulsed SK left upper arm - PAST SURGICAL HISTORY OF RIGHT TRIGGER THUMB - PAST SURGICAL HISTORY OF 06/20 cataract revision; bilateral eyes - PAST SURGICAL HISTORY OF Bilateral 2014 Cataract surgery FAMILY HISTORY Problem Relation Age of Onset - Cancer Father LIVER - Heart Father CABG - Heart Mother - Osteoporosis Mother - Diabetes Paternal Grandmother - Breast Cancer Maternal Aunt ALLERGIES Allergen Reactions - Palm Oil GI Upset - Accupril [Quinapril* Other: See Comments Pt unsure why this is listed. Not sure what allergy is - Asa [Salicylates] GI Upset - Penicillins Hives - Vicodin [Hydrocodon* GI Upset - Bees - Codeine Intolerance - Metformin GI Upset diarrhea higher dose Current Outpatient Medications Medication Sig Dispense Refill - therapeutic multivitamin w/ iron (THERAGRAN-M) 27-0.4 mg tablet Take 1 tablet by mouth once daily. - fluticasone (FLONASE) 50 mcg/actuation nasal spray Use 1 [place] in each nostril once daily as needed. - COLLAGEN MISC Take 1 Dose by mouth once daily. Pt mixes one scope of collagen powder creamer in tea or coffee daily. Pt unable to confirm which OTC product/brand she takes. - cannabidiol, CBD, (CANNABIDIOL ORAL) Take 1-2 Each by mouth once daily. Pt reports taking 1-2 CBD gummies OTC daily for pain and muscle aches. Pt purchases these online and was unable to confirm the dose or brand. Pt does not report endorsement of this medication from a provider. - ALPRAZolam (XANAX) 0.5 mg tablet Take 1 tablet by mouth twice daily as needed for up to 90 days. 60 tablet 2 - levothyroxine (SYNTHROID) 50 mcg tablet Take 1 tablet by mouth once daily. DOSE CHANGE. Take on empty stomach. For Thyroid 90 tablet 3 - FLUoxetine (PROZAC) 10 mg capsule Take 1 capsule by mouth once daily. 90 capsule 3 - glimepiride (AMARYL) 2 mg tablet Take 1 tablet by mouth once daily. 90 tablet 3 - metFORMIN ER (GLUCOPHAGE XR) 500 mg 24 hr tablet TAKE 2 TABLETS BY MOUTH EVERY DAY WITH BREAKFAST 60 tablet 11 - lisinopril (ZESTRIL) 20 mg ta (more content not included)... [facility] 05-25-2021 Note HNO ID: [id number] Author: Darrick Pierre MD Service: ? Author Type: Physician Type: Progress Notes Filed: 05/25/2021 10:56 AM Note Text: NEUROSURGERY FOLLOW UP OFFICE NOTE Dr. Darrick Pierre MD, FACS Date of visit: May 25, 2021 Patient Name: Ms.Alma Darshan Chavez Date of : 1945 Current Age: [age] year old Sex: female MRN/E# [id number] Last Office Visit: Hospital follow-up Chief Complaint: Patient presents with: Established Patient SUBJECTIVE: The patient presents as a hospital follow-up with imaging (CT B) for evaluation. She was seen in consult on 05/11/2021 after presenting to the emergency department with headache and lightheadedness. Apparently she was on a stool and fell backwards striking the right side of her head on the floor. She did not lose consciousness and denied taking any blood thinning medications. Imaging was completed and demonstrated an anterior hemispheric posterior falx subdural hematoma as well as a subarachnoid hemorrhage bilaterally more on the right side and a surface hematoma in the right parietal lobe. Neurologically she was intact and no surgical intervention was indicated. Repeat imaging was stable. Recommendation was to follow-up in [address] head prompting her visit today. Since discharge she states she is overall doing well. She reports tenderness on the right side where she struck her head but otherwise no new issues. She presents for image review, evaluation and plan of care. Symptoms: Mild tenderness PREVIOUS CONSERVATIVE TREATMENTS: None PREVIOUS SURGERY: None PAIN EVALUATION 05/25/2021 0954 Pain Level: 2 Pain Location: Head Description: Aching;Dull Duration Amount of Time: 2 Duration Units: Weeks Frequency: Continuous Intervention/Comfort measure: Medication PAST MEDICAL HISTORY Diagnosis Date - Absence of menstruation - Anxiety state, unspecified - Benign neoplasm of colon - Diverticulosis of colon (without mention of hemorrhage) - Esophageal reflux - Essential hypertension, benign - Internal hemorrhoids without mention of complication - Mental disorder - Obesity, unspecified - Other and unspecified hyperlipidemia - Type II or unspecified type diabetes mellitus without mention of complication, not stated as uncontrolled PAST SURGICAL HISTORY Procedure Laterality Date - BX OF BREAST; INCISIONAL Bx of breast, incisional - COLONOS W/REM POLYP SNARE 01/21/08 - COLONOSCOP W/ OR W/O BRSH SPEC 02/21/15 Colonoscopy - DESTR LESION BENIGN/PREMAL 11/13/07 Partially avulsed SK left upper arm - PAST SURGICAL HISTORY OF RIGHT TRIGGER THUMB - PAST SURGICAL HISTORY OF 06/20 cataract revision; bilateral eyes - PAST SURGICAL HISTORY OF Bilateral 2014 Cataract surgery FAMILY HISTORY Problem Relation Age of Onset - Cancer Father LIVER - Heart Father CABG - Heart Mother - Osteoporosis Mother - Diabetes Paternal Grandmother - Breast Cancer Maternal Aunt ALLERGIES Allergen Reactions - Palm Oil GI Upset - Accupril [Quinapril* Other: See Comments Pt unsure why this is listed. Not sure what allergy is - Asa [Salicylates] GI Upset - Penicillins Hives - Vicodin [Hydrocodon* GI Upset - Bees - Codeine Intolerance - Metformin GI Upset diarrhea higher dose Current Outpatient Medications Medication Sig Dispense Refill - therapeutic multivitamin w/ iron (THERAGRAN-M) 27-0.4 mg tablet Take 1 tablet by mouth once daily. - fluticasone (FLONASE) 50 mcg/actuation nasal spray Use 1 [place] in each nostril once daily as needed. - COLLAGEN MISC Take 1 Dose by mouth once daily. Pt mixes one scope of collagen powder creamer in tea or coffee daily. Pt unable to confirm which OTC product/brand she takes. - cannabidiol, CBD, (CANNABIDIOL ORAL) Take 1-2 Each by mouth once daily. Pt reports taking 1-2 CBD gummies OTC daily for pain and muscle aches. Pt purchases these online and was unable to confirm the dose or brand. Pt does not report endorsement of this medication from a provider. - ALPRAZolam (XANAX) 0.5 mg tablet Take 1 tablet by mouth twice daily as needed for up to 90 days. 60 tablet 2 - levothyroxine (SYNTHROID) 50 mcg tablet Take 1 tablet by mouth once daily. DOSE CHANGE. Take on empty stomach. For Thyroid 90 tablet 3 - FLUoxetine (PROZAC) 10 mg capsule Take 1 capsule by mouth once daily. 90 capsule 3 - glimepiride (AMARYL) 2 mg tablet Take 1 tablet by mouth once daily. 90 tablet 3 - metFORMIN ER (GLUCOPHAGE XR) 500 mg 24 hr tablet TAKE 2 TABLETS BY MOUTH EVERY DAY WITH BREAKFAST 60 tablet 11 - lisinopril (ZESTRIL) 20 mg tablet Take 1 tablet by mouth once daily. 90 tablet 3 - atorvastatin (LIPITOR) 10 mg tablet Take 1 tablet by mouth once daily. 90 tablet 3 - famotidine (PEPCID) 20 mg tablet Take 1 tablet by mouth at bedtime as needed. - ACETAMINOPHEN 500 MG TAB Take 500 mg by mouth every 8 hours as needed for pain. No more than 4000 m (more content not included)... [facility] 05-25-2021 Note HNO ID: [id number] Author: RT Clayton(R) Service: Radiology Author Type: Technologist Type: Progress Notes Filed: 05/25/2021 9:36 AM Note Text: Radiology Service Progress Note PATIENT NAME: Sheree Chavez DATE OF SERVICE: May 25, 2021 TIME: 9:36 AM PATIENT IDENTITY VERIFICATION COMPLETED USING TWO (2) IDENTIFIERS: Name and Date of confirmed by patient verbally. FALL SCREENING: Has the patient had 2 falls in the last year or 1 fall with injury or currently using an Ambulatory Assistive Device (Walker, Cane, Wheelchair, Crutches, etc.)? No PATIENT GENDER DATA: Female. status: : No status: NO. PATIENT RELEVANT IMPLANT DATA REVIEWED: Not Applicable RADIOLOGY DEPARTMENT: CT; Exam(s) Completed: Brain PERIPHERAL IV DATA: Not applicable SIGNED BY: RT Scott(R) May 25, 2021 9:36 AM [facility] 05-13-2021 Note HNO ID: [id number] Author: Kalia Tirado APRN.MEDICAL AFFAIRS LEADER Service: Neurosurgery Author Type: Nurse Practitioner Type: Progress Notes Filed: 05/13/2021 11:42 AM Note Text: Neurosurgery Progress Note SERVICE DATE: 05/13/2021 SUBJECTIVE: NAEON. Standing at window, dressed, waiting for family to arrive. Endorses continued R temporal MOE, same as yesterday. No new numbness/tingling/weakness. OBJECTIVE: Vitals: Temp (24hrs), Av.6 ?C (97.9 ?F), Min:36.5 ?C (97.7 ?F), Max:36.7 ?C (98.1 ?F) BP 111/61 Pulse 60 Temp 36.6 ?C (97.9 ?F) (Oral) Resp 18 Ht 166.4 cm (5' 5.5) Wt 82.6 kg (182 lb) SpO2 94% BMI 29.83 kg/m? O2 Therapy: Room Air IANDO: Medications: Current Facility-Administered Medications Medication Dose Route Frequency - melatonin 6 mg tab(s) 6 mg ORAL DAILY (8 PM) - ALPRAZolam 0.5 mg tab(s) (XANAX) 0.5 mg ORAL AT BEDTIME - insulin lispro pen (rapid acting) (HumaLOG KWIKPEN) SUBCUTANEOUS w MEALS AND HS - senna-docusate 8.6-50 mg 1 tablet (SENNA-S) 1 tablet ORAL BID - acetaminophen 1,000 mg tab(s) (TYLENOL) 1,000 mg ORAL/FEEDING TUBE q 6 H PRN - oxyCODONE IR 2.5 mg tab(s) (ROXICODONE) 2.5 mg ORAL q 6 H PRN - atorvastatin 10 mg tab(s) (LIPITOR) 10 mg ORAL AT BEDTIME - NaCl 0.9% iv flush bag 20 mL INTRAVENOUS PRN - famotidine 20 mg tab(s) (PEPCID) 20 mg ORAL HS PRN - FLUoxetine 10 mg cap(s) (PROzac) 10 mg ORAL DAILY - levothyroxine 50 mcg tab(s) (SYNTHROID) 50 mcg ORAL DAILY - sodium chloride 0.9 % (flush) 3-5 mL (BD POSIFLUSH) 3-5 mL INTRAVENOUS q 12 H - ondansetron 4 mg tab(s) (ZOFRAN) 4 mg ORAL q 6 H PRN Or - ondansetron (PF) 4 mg injection (ZOFRAN) 4 mg INTRAVENOUS q 6 H PRN - dextrose 40 % 15 g 15 g ORAL PRN Or - glucagon 1 mg injection 1 mg INTRAMUSCULAR PRN Or - dextrose 50% in water 25 mL syringe 12.5 g INTRAVENOUS PRN Labs: Recent Labs 05/13/21 0412 05/12/21 0308 05/11/21 1535 NA 136 139 137 K 4.1 3.8 4.0 CHLOR 102 104 99 CO2 24 24 24 BUN 14 9 10 CREAT 0.78 0.70 0.73 GLUC 167* 146* 125* ANION 10 11 14 CA 8.9 8.5 9.5 MG 2.0 1.6* -- ALB -- -- 4.4 AST -- -- 20 ALT -- -- 22 ALKPHOS -- -- 31* TBILI -- -- 0.3 WBC 8.56 10.12 13.23* HB 12.9 12.4 13.9 HCT 39.1 38.2 42.2 PLT 278 273 317 INR -- -- 1.0 Exam: GENERAL: No distress, Alert NEURO: AAOx3, PERRL, EOMI. Speech clear, fluent. No pronator drift, no facial droop, tongue midline. Strength 5/5 all extremities. HEENT: normocephalic, atraumatic LUNGS: Unlabored breathing CARDIAC: Regular rate and rhythm as above ABDOMEN: Soft, non-tender, non-distended EXTREMITIES: WELCH, No deformities, No edema SKIN: Skin color, texture, turgor normal, No rashes or lesions ASSESSMENT AND PLAN: Active Hospital Problems Diagnosis Date Noted - Subdural hematoma (HCC) 05/11/2021 - TBI (traumatic brain injury) ([facility]) 05/11/2021 - Fall 05/11/2021 - Subarachnoid hemorrhage following injury, no loss of consciousness ([facility]) 05/11/2021 Sheree Chavez is a 75 year old female fall from stool, CHI/SDH/SAH/contusion. - Neuro as above - Neuro checks per protocol - Ok for d/c - 2 wk f/u with Dr Pierre with CTH requested - No AC/AP until f/u SIGNATURE: Kalia Tirado APRN.CNP PATIENT NAME: Sheree Chavez DATE: May 13, 2021 TIME: 11:39 AM Pager: [phone] [facility] 05-13-2021 Note HNO ID: [id number] Author: Margret Dawson APRN.CNP Service: General Surgery Author Type: Nurse Practitioner Type: Progress Notes Filed: 05/13/2021 8:28 AM Note Text: Trauma Surgery Progress Note SERVICE DATE: 05/13/2021 Trauma Service Pager: For questions or concerns Mon-Fri 6a-5p please page [phone]. After 5pm and on Weekends and Holidays, please page [phone] if in ICU or [phone] if on RNF. SUBJECTIVE: NAEON. Patient hopeful for discharge today. Tolerating diet without nausea. Reports headache but controlled. Denies dizziness, chest pain, SOB. OBJECTIVE: Vitals: Temp (24hrs), Av.6 ?C (97.9 ?F), Min:36.5 ?C (97.7 ?F), Max:36.7 ?C (98.1 ?F) BP 111/61 Pulse 60 Temp 36.6 ?C (97.9 ?F) (Oral) Resp 18 Ht 166.4 cm (5' 5.5) Wt 82.6 kg (182 lb) SpO2 94% BMI 29.83 kg/m? O2 Therapy: Room Air IANDO: MEDICATIONS Current Facility-Administered Medications Medication Dose Route Frequency - melatonin 6 mg tab(s) 6 mg ORAL DAILY (8 PM) - ALPRAZolam 0.5 mg tab(s) (XANAX) 0.5 mg ORAL AT BEDTIME - insulin lispro pen (rapid acting) (HumaLOG KWIKPEN) SUBCUTANEOUS w MEALS AND HS - senna-docusate 8.6-50 mg 1 tablet (SENNA-S) 1 tablet ORAL BID - acetaminophen 1,000 mg tab(s) (TYLENOL) 1,000 mg ORAL/FEEDING TUBE q 6 H PRN - oxyCODONE IR 2.5 mg tab(s) (ROXICODONE) 2.5 mg ORAL q 6 H PRN - atorvastatin 10 mg tab(s) (LIPITOR) 10 mg ORAL AT BEDTIME - NaCl 0.9% iv flush bag 20 mL INTRAVENOUS PRN - famotidine 20 mg tab(s) (PEPCID) 20 mg ORAL HS PRN - FLUoxetine 10 mg cap(s) (PROzac) 10 mg ORAL DAILY - levothyroxine 50 mcg tab(s) (SYNTHROID) 50 mcg ORAL DAILY - sodium chloride 0.9 % (flush) 3-5 mL (BD POSIFLUSH) 3-5 mL INTRAVENOUS q 12 H - ondansetron 4 mg tab(s) (ZOFRAN) 4 mg ORAL q 6 H PRN Or - ondansetron (PF) 4 mg injection (ZOFRAN) 4 mg INTRAVENOUS q 6 H PRN - dextrose 40 % 15 g 15 g ORAL PRN Or - glucagon 1 mg injection 1 mg INTRAMUSCULAR PRN Or - dextrose 50% in water 25 mL syringe 12.5 g INTRAVENOUS PRN Labs: Recent Labs 05/13/21 0412 05/12/21 0308 05/11/21 1535 NA 136 139 137 K 4.1 3.8 4.0 CHLOR 102 104 99 CO2 24 24 24 BUN 14 9 10 CREAT 0.78 0.70 0.73 GLUC 167* 146* 125* ANION 10 11 14 CA 8.9 8.5 9.5 MG 2.0 1.6* -- ALB -- -- 4.4 AST -- -- 20 ALT -- -- 22 ALKPHOS -- -- 31* TBILI -- -- 0.3 WBC 8.56 10.12 13.23* HB 12.9 12.4 13.9 HCT 39.1 38.2 42.2 PLT 278 273 317 INR -- -- 1.0 PHYSICAL EXAM: Genl: Appears age appropriate. No acute distress. Resting comfortably. Head/Face: Normocephalic. Atraumatic. Eyes: EOMI. Sclera not icteric, not injected Neck: No mid-line masses. C-spine non-tender. Resp: Lung sounds are clear bilat. No wheezes. No rales. Breathing is non-labored on RA @94%. CVS: RRR as above; 2+ pulses at RA, DP, PT bilat. GI: Abdomen is soft, non-tender, not distended. Bowel sounds normoactive. No peritonitis. MSK: Extremities without clubbing, cyanosis, edema. Normal ROM x 4. Skin: Warm and dry. Not jaundiced. Neuro: AANDOx3. Strength and sensation normal. WELCH. GCS15. Psych: Normal mood. Normal affect. Appropriate insight into current situation. ASSESSMENT AND PLAN: Active Hospital Problems Diagnosis Date Noted - Subdural hematoma (HCC) 05/11/2021 - TBI (traumatic brain injury) ([facility]) 05/11/2021 - Fall 05/11/2021 - Subarachnoid hemorrhage following injury, no loss of consciousness ([facility]) 05/11/2021 75 year old female s/p GLF Imaging performed: 1. CT HN, XR R hip (05/11) 2. CT brain/pelvis/Lspine, XR cspine (05/12) Traumatic Injuries: 1. Bilateral SAH and SDH Operations/Procedures: 1. None Care Plan: 1. SDH/SAH 1. Non-op per NSGY 2. CT brain 05/12 stable 3. No keppra 2. Right hip pain, possible hip fx 1. Ortho consulted 2. Fracture ruled out by CT 3. WBAT RLE 3. Current diet order: DIET CARBOHYDRATE CONTROLLED 4. Pain regimen: PRN tylenol, oxycodone 5. Bowel regimen: Senna-s 6. Labs: As above 7. Discharge home today if cleared by neurosurgery, PT, NURSE STAFF INDUSTRIAL PPX: 1. DVT: SCDs, mobililze 2. Ulcer: n/a 3. Vit D level if > 65 yo: pending Consulted Services: 1. SICU 2. Neurosurgery 3. Orthopedic surgery 4. NURSE STAFF INDUSTRIAL Dispo Plannin. PT/OT recs pending. Case management following. Incidentals: 1. None Follow Up Needs: 1. NSGY - Dr. Pierre 2. PCP Staff Trauma Surgeon: Dr. Raymundo SIGNATURE: Margret Dawson APRN.CNP PATIENT NAME: Sheree Chavez DATE: May 13, 2021 TIME: 8:19 AM Pager: see below Trauma Service Pager: For questions or concerns Mon-Fri 6a-5p please page [phone]. After 5pm and on Weekends and Holidays, please page [phone] if in ICU or [phone] if on RNF. [facility] 05-13-2021 Note HNO ID: [id number] Author: Interface Note Service: ? Author Type: ? Type: Progress Notes Filed: 05/13/2021 3:09 AM Note Text: Epic Scheduled Downtime: 05/13/2021 1:00:00 AM to 05/13/2021 2:52:00 AM [facility] 05-12-2021 Note HNO ID: [id number] Author: Scarlett Foster RPh Service: Pharmacy Author Type: Pharmacist Type: Plan of Care Filed: 05/12/2021 4:55 PM Note Text: PHARMACY MEDICATION REVIEW Patient Name: Sheree Chavez : 1945 The following medications were updated within the PHOTOGRAPHY INTERN medication list: Medications ADDED to PHOTOGRAPHY INTERN medication list ? cannabidiol, CBD, (CANNABIDIOL ORAL) (Pt reports OTC use - Unable to confirm dose as patient buys online and dose not know additional product information) ? COLLAGEN MISC [Collagen Creamer Powder] (Pt reports OTC use - Unable to confirm dose as patient does not know additional product information) ? therapeutic multivitamin w/ iron (THERAGRAN-M) 27-0.4 mg tablet (Pt reports OTC use) Medications CHANGED on PHOTOGRAPHY INTERN medication list ? ACETAMINOPHEN 500 MG TAB (Directions clarified) ? famotidine (PEPCID) 20 mg tablet (Pt reports use 1-2 days weekly - Directions clarified) Medications REMOVED from PHOTOGRAPHY INTERN medication list ? Cholecalciferol, Vitamin D3, 2,000 unit cap (Pt reports no longer taking) ? fluticasone (FLONASE) 50 mcg/actuation nasal spray ([facility]) ? loratadine (CLARITIN) 10 mg tablet (Pt reports no longer taking) Additional comments: Verified medication information with patient, pharmacy and chart review. Patient stated no longer taking Vit D or Claritin - removed from med list and duplicate fluticasone order removed. Pharmacy confirmed fill dates current. The below information represents the best possible medication history: Yes Medication history completed by: Senior Outside Sales Representative: Eun Crouch (Nursery Supervisor) and Sd Hernandez (Sheet Metal Foreman) Source of history: Patient:Reliability of source: Appears reliable, clearly identified: Medication name, Medication dose, Medication route and Medication frequency, Pharmacy records: [facility] [phone] [facility] records Medication nonadherence identified: No barriers noted Reconciliation completed: Yes All PHOTOGRAPHY INTERN medications addressed by LIP Patient interested in Bedside Delivery Services or using [facility] OP Pharmacy at discharge? No Preferred outpatient pharmacy: [id number] [place] [address] - [address] [phone] [id number] Allergies: Palm Oil GI Upset Accupril [Quinapril* Other: See Comments Comment:Pt unsure why this is listed. Not sure what allergy is Asa [Salicylates] GI Upset Penicillins Hives Vicodin [Hydrocodon* GI Upset Bees Codeine Intolerance Metformin GI Upset Comment:diarrhea higher dose Prior to Admission medications as of 05/12/21 6025 Medication Sig Last Dose Taking therapeutic multivitamin w/ iron (THERAGRAN-M) 27-0.4 mg tablet Take 1 tablet by mouth once daily. Yes fluticasone (FLONASE) 50 mcg/actuation nasal spray Use 1 [place] in each nostril once daily as needed. Yes COLLAGEN MISC Take 1 Dose by mouth once daily. Pt mixes one scope of collagen powder creamer in tea or coffee daily. Pt unable to confirm which OTC product/brand she takes. Yes cannabidiol, CBD, (CANNABIDIOL ORAL) Take 1-2 Each by mouth once daily. Pt reports taking 1-2 CBD gummies OTC daily for pain and muscle aches. Pt purchases these online and was unable to confirm the dose or brand. Pt does not report endorsement of this medication from a provider. Yes ALPRAZolam (XANAX) 0.5 mg tablet Take 1 tablet by mouth twice daily as needed for up to 90 days. Yes levothyroxine (SYNTHROID) 50 mcg tablet Take 1 tablet by mouth once daily. DOSE CHANGE. Take on empty stomach. For Thyroid Yes FLUoxetine (PROZAC) 10 mg capsule Take 1 capsule by mouth once daily. Yes glimepiride (AMARYL) 2 mg tablet Take 1 tablet by mouth once daily. Yes metFORMIN ER (GLUCOPHAGE XR) 500 mg 24 hr tablet TAKE 2 TABLETS BY MOUTH EVERY DAY WITH BREAKFAST Yes lisinopril (ZESTRIL) 20 mg tablet Take 1 tablet by mouth once daily. Yes atorvastatin (LIPITOR) 10 mg tablet Take 1 tablet by mouth once daily. Yes famotidine (PEPCID) 20 mg tablet Take 1 tablet by mouth at bedtime as needed. Yes ACETAMINOPHEN 500 MG TAB Take 500 mg by mouth every 8 hours as needed for pain. No more than 4000 mg of acetaminophen should be given per day (FROM ALL SOURCES) Yes Eun Crouch (Nursery Supervisor) [id number] 05/12/2021 Sd Hernandez (Press Supervisor) 05/12/2021 I agree with the medication history completed by the pharmacy benefit manager above, making changes as necessary in RED Scarlett Foster, DialloD PGY-2 Critical Care Plant Attendant [facility] 05-12-2021 Note HNO ID: [id number] Author: MICHELLE Vazquez Service: Care Management Author Type: Assistant Gm Of Content & Delivery Type: Care Mgt Initial Assessment Filed: 05/12/2021 11:54 AM Note Text: CARE MANAGEMENT: ASSESSMENT AND DISCHARGE PLAN SERVICE DATE: May 12, 2021 SERVICE TIME: 8:50 AM PRIMARY CARE PHYSICIAN: Deirdre Quiñones MD ADMISSION STATUS: Inpatient Needs Prior to Discharge: To Be Determined;OT/PT Evaluation MEDICAL: Left of the [employer] 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 Last discharge within 30 days: No Advance Directive: Current Advance Directive: None Form Builder Helper Attempted to Assist with AD Completion: Yes Action: Education Provided Health LiteracyHow often do you need to have someone help you when you read instructions, pamphlets, or other written material from your doctor or pharmacy? : 1 - Never How confident are you filling out medical forms by yourself?: 1 - Extremely If Patient scores > 3 on either question, the following interventions were put into place:: Use of plain language and active listening with Patient and family;Teach back methods employed to ensure comprehension;Patient did not score > 3 on either question.;Use concrete and specific phrases, avoid medical jargon;Sit with Patient;Gave Patient the opportunity to ask questions Baseline Mental Status Functional Status: Independent Does Patient Currently Receive Any Community Services or Home Care?: None Equipment Prior to Admission: Glucometer Has the Patient Been in a Custodial Facility in the Past 30 days?: No SOCIAL: Living Arrangements: Home Lives With: Alone Financial Resources: Retired Primary Contact: Extended Emergency Contact Information Primary Emergency Contact: Sammi Chavez Mobile Relation: Daughter Secondary Emergency Contact: Lauren Chavez Mobile Relation: Son Supportive Patient Contact:: Yes Caregiver AssessmentCaregiver is ready, willing and able to meet the patient's needs as recommended by the inter-professional team:: Yes Does the patient have an acute stroke diagnosis, or has the patient had a stroke during this admission?: No Patient's transition needs and plan for meeting these needs: Home vs Home Care vs SNF pending PT/OT Eval Patient's perception of need for this admission: fall Medication Adherance I am convinced of the importance of my prescription medication: 0 - Agree Completely I worry that my prescription medication will do more harm than good to me : 0 - Disagree Completely I feel financially burdened by my [id number] expenses for my prescription medication:: 0 - Disagree Completely Risk Score: 0 Patient is categorized as: Low risk < 2 Are you interested in bedside delivery of your medications? Yes ASSESSMENT AND PLAN: Medical Needs: Medical Needs: None Psychosocial Needs: Psychosocial Needs: None FREEDOM OF CHOICE EXPLAINED: [place] of Choice Given: No Reason Not Given: Unable to complete with this assessment - revisit POTENTIAL TRANSITION PLANS Home;Home Care;Custodial Facility/Intermediate Care Facility;To Be Determined Chart reviewed. The pateint is admitted due to fall at home ? Spoke with patient at the bedside. Explained care management role. Functional: the patient lives in ranch home with basement and has 2-3 steps to get inside the house. Transportation: independent and drives to appointments. Equipment Prior to Admission: none Support: Sammi Chavez (Daughter) [phone] and Lauren Chavez (son) [phone] Pharmacy: [facility]/pharmacy #[id number] [place] [address] PCP: Deirdre Quiñones MD The patient was trauma II that fell at home off step stool. The patient reports she is independent and unsure if she may need therapy at this time due to pain from fall. The patient is open to meeting PT/OT. Awaiting PT/OT evaluation. Social work continue to follow for treatment plan and transitional planning. SIGNATURE: MICHELLE Vazquez PATIENT NAME: Sheree Chavez DATE: May 12, 2021 TIME: 9:20 AM PAGER/CONTACT #: [phone] [facility] 05-12-2021 Note HNO ID: [id number] Author: Bridgett Guerrero PA-C Service: Neurosurgery Author Type: Physician Plant Pathologist Type: Progress Notes Filed: 05/12/2021 1:15 PM Note Text: Neurosurgery Progress Note SERVICE DATE: 05/12/2021 SUBJECTIVE: Awake and alert in bed. C/o soreness 'all over.' c/o tailbone discomfort, right neck discomfort, soreness to back of head, some right hip pain. She denies headache, dizziness, n/v. Waiting for breakfast. Does not have collar on. Denies paresthesias or weakness. OBJECTIVE: Vitals: Temp (24hrs), Av ?C (98.6 ?F), Min:37 ?C (98.6 ?F), Max:37 ?C (98.6 ?F) BP 115/56 Pulse 72 Temp 37 ?C (98.6 ?F) Resp 22 Ht 166.4 cm (5' 5.51) Wt 82.6 kg (182 lb) SpO2 (!) 94% BMI 29.81 kg/m? O2 Therapy: Room Air MEDICATIONS Current Facility-Administered Medications Medication Dose Route Frequency - morphine 2 mg injection 2 mg INTRAVENOUS ONCE - insulin lispro pen (rapid acting) (HumaLOG KWIKPEN) SUBCUTANEOUS w MEALS AND HS - magnesium sulfate in sterile water 4 g in 100 mL iv piggyback 4 g INTRAVENOUS ONCE - senna-docusate 8.6-50 mg 1 tablet (SENNA-S) 1 tablet ORAL BID - potassium chloride ER 40 mEq tab(s) (K-DUR, KLOR-CON) 40 mEq ORAL ONCE - acetaminophen 1,000 mg tab(s) (TYLENOL) 1,000 mg ORAL/FEEDING TUBE q 6 H PRN - oxyCODONE IR 2.5 mg tab(s) (ROXICODONE) 2.5 mg ORAL q 6 H PRN - NaCl 0.9% iv flush bag 20 mL INTRAVENOUS PRN - atorvastatin 10 mg tab(s) (LIPITOR) 10 mg ORAL DAILY - famotidine 20 mg tab(s) (PEPCID) 20 mg ORAL HS PRN - FLUoxetine 10 mg cap(s) (PROzac) 10 mg ORAL DAILY - levothyroxine 50 mcg tab(s) (SYNTHROID) 50 mcg ORAL DAILY - potassium chloride ER 20-40 mEq tab(s) (K-DUR, KLOR-CON) 20-40 mEq ORAL/FEEDING TUBE PRN Or - potassium chloride iv piggyback 20 mEq/100 mL 20 mEq INTRAVENOUS PRN - magnesium sulfate in sterile water 2 g in sterile water 50 ml 2 g INTRAVENOUS PRN - phosphorus 500 mg tab(s) (K PHOS NEUTRAL) 500 mg ORAL/FEEDING TUBE PRN(NO DISPENSE) - calcium gluconate 4 g in NaCl 0.9% 250 mL 4 g INTRAVENOUS PRN - sodium chloride 0.9 % (flush) 3-5 mL (BD POSIFLUSH) 3-5 mL INTRAVENOUS q 12 H - ondansetron 4 mg tab(s) (ZOFRAN) 4 mg ORAL q 6 H PRN Or - ondansetron (PF) 4 mg injection (ZOFRAN) 4 mg INTRAVENOUS q 6 H PRN - dextrose 40 % 15 g 15 g ORAL PRN Or - glucagon 1 mg injection 1 mg INTRAMUSCULAR PRN Or - dextrose 50% in water 25 mL syringe 12.5 g INTRAVENOUS PRN Labs: Recent Labs 05/12/21 0308 05/11/21 1535 NA 139 137 K 3.8 4.0 CHLOR 104 99 CO2 24 24 BUN 9 10 CREAT 0.70 0.73 GLUC 146* 125* ANION 11 14 CA 8.5 9.5 MG 1.6* -- ALB -- 4.4 AST -- 20 ALT -- 22 ALKPHOS -- 31* TBILI -- 0.3 WBC 10.12 13.23* HB 12.4 13.9 HCT 38.2 42.2 PLT 273 317 INR -- 1.0 Exam: GENERAL: Awake and alert; NAD; cooperative; pleasant NEURO: Orientedx3; speech clear and fluent; msp grossly intact and equal; no arm drift HEENT: right post cephalohematoma decreased in size; perrl/eomi; no facial droop LUNGS: Unlabored breathing NECK/BACK: Mild TTP to right side of neck; no cspine tenderness; discomfort and stiffness with movement but no radicular symptoms CARDIAC: Rate and rhythm as above ABDOMEN: Soft, non-tender, non-distended EXTREMITIES: No deformities SKIN: Skin color, texture, turgor normal, no rashes or lesions ASSESSMENT AND PLAN: Active Hospital Problems Diagnosis Date Noted - Subdural hematoma (HCC) 05/11/2021 - TBI (traumatic brain injury) (HCC) 05/11/2021 - Fall 05/11/2021 - Subarachnoid hemorrhage following injury, no loss of consciousness (HCC) 05/11/2021 75 year old female fall from stool, CHI/SDH/SAH/contusion, neck pain and right hip pain - neuro stable - repeated CTH reviewed - stable to mildly improved - continue to hold chem ppx - nonsurgical mgmt of ICH - ccollar should be on until cspine cleared - flex/ext ordered - explained this to pt and encouraged collar use - LBP - CT lumbar ordered SIGNATURE: Bridgett Guerrero PA-C PATIENT NAME: Sheree Chavez DATE: May 12, 2021 TIME: 1:06 PM Pager: [phone] [facility] 05-12-2021 Note HNO ID: [id number] Author: David Garcia DO Service: General Surgery Author Type: Resident Type: Progress Notes Filed: 05/12/2021 7:44 AM Note Text: Attestation signed by Lane Raymundo MD at 05/15/2021 3:58 PM Attending Note I evaluated the patient and personally participated in the estrada components on 05/12/2021 I agree with the resident's findings and plan as documented and have discussed the case and management of the patient's care with the resident. Doing well. Mental status clear. Hungry and pain is tolerable. Lane Raymundo MD Delayed entry Trauma Surgery Progress Note SERVICE DATE: 05/12/2021 Trauma Service Pager: For questions or concerns Mon-Fri 6a-5p please page [phone]. After 5pm and on Weekends and Holidays, please page [phone] if in ICU or [phone] if on RNF. SUBJECTIVE: NAEO, AF, HDS on RA this morning. Continues to have pain of her right hip/lower back. No I/Os. Denies nausea/vomiting. States she is hungry this morning. OBJECTIVE: Vitals: Temp (24hrs), Av ?C (98.6 ?F), Min:37 ?C (98.6 ?F), Max:37 ?C (98.6 ?F) BP 110/73 Pulse 67 Temp 37 ?C (98.6 ?F) Resp 13 Wt 82.6 kg (182 lb) SpO2 (!) 94% BMI 29.83 kg/m? O2 Therapy: Room Air IANDO: MEDICATIONS Current Facility-Administered Medications Medication Dose Route Frequency - oxyCODONE IR 2.5-5 mg tab(s) (ROXICODONE) 2.5-5 mg ORAL q 6 H PRN - morphine 2 mg injection 2 mg INTRAVENOUS ONCE - NaCl 0.9% iv flush bag 20 mL INTRAVENOUS PRN - atorvastatin 10 mg tab(s) (LIPITOR) 10 mg ORAL DAILY - famotidine 20 mg tab(s) (PEPCID) 20 mg ORAL HS PRN - FLUoxetine 10 mg cap(s) (PROzac) 10 mg ORAL DAILY - levothyroxine 50 mcg tab(s) (SYNTHROID) 50 mcg ORAL DAILY - potassium chloride ER 20-40 mEq tab(s) (K-DUR, KLOR-CON) 20-40 mEq ORAL/FEEDING TUBE PRN Or - potassium chloride iv piggyback 20 mEq/100 mL 20 mEq INTRAVENOUS PRN - magnesium sulfate in sterile water 2 g in sterile water 50 ml 2 g INTRAVENOUS PRN - phosphorus 500 mg tab(s) (K PHOS NEUTRAL) 500 mg ORAL/FEEDING TUBE PRN(NO DISPENSE) - calcium gluconate 4 g in NaCl 0.9% 250 mL 4 g INTRAVENOUS PRN - sodium chloride 0.9 % (flush) 3-5 mL (BD POSIFLUSH) 3-5 mL INTRAVENOUS q 12 H - NaCl 0.9% iv infusion 75 mL/hr INTRAVENOUS CONTINUOUS - acetaminophen 1,000 mg tab(s) (TYLENOL) 1,000 mg ORAL/FEEDING TUBE q 6 H - ondansetron 4 mg tab(s) (ZOFRAN) 4 mg ORAL q 6 H PRN Or - ondansetron (PF) 4 mg injection (ZOFRAN) 4 mg INTRAVENOUS q 6 H PRN - dextrose 40 % 15 g 15 g ORAL PRN Or - glucagon 1 mg injection 1 mg INTRAMUSCULAR PRN Or - dextrose 50% in water 25 mL syringe 12.5 g INTRAVENOUS PRN - insulin lispro pen (rapid acting) (HumaLOG KWIKPEN) SUBCUTANEOUS q 6 H Labs: Recent Labs 05/12/21 0308 05/11/21 1535 NA 139 137 K 3.8 4.0 CHLOR 104 99 CO2 24 24 BUN 9 10 CREAT 0.70 0.73 GLUC 146* 125* ANION 11 14 CA 8.5 9.5 MG 1.6* -- ALB -- 4.4 AST -- 20 ALT -- 22 ALKPHOS -- 31* TBILI -- 0.3 WBC 10.12 13.23* HB 12.4 13.9 HCT 38.2 42.2 PLT 273 317 INR -- 1.0 Exam: General: Alert and oriented x 3. No acute distress. HEENT: Atraumatic, no midline tenderness, no step off deformities CV: Regular rate Respiratory: Unlabored breathing on RA, equal chest rise bilaterally. Abdomen: Soft, nondistended, NTP, no rebound, guarding. Neuro: AANDOx3, CNII-XII grossly intact, sensorimotor function grossly intact. Heme: No bleeding, no ecchymoses Skin: Skin warm and dry. MSK: AROM grossly wnl in all four extremities. Pain over sacrum/right hip. ASSESSMENT AND PLAN: Active Hospital Problems Diagnosis Date Noted - Subdural hematoma (HCC) 05/11/2021 - TBI (traumatic brain injury) ([facility]) 05/11/2021 - Fall 05/11/2021 - Subarachnoid hemorrhage following injury, no loss of consciousness ([facility]) 05/11/2021 75 year old female s/p ground level fall with subdural hematoma,hemorrhagic contusion of the right temporal lobe and posterior medial aspect of the left parietal lobe, focal subarachnoid bleed ? Imaging performed: 1. CT brain (05/11) 2. CT cervical spine (05/11) ? Traumatic Injuries: 1. Subdural hematoma 2. Possible right hip fracture ? Operations/Procedures: 1. N/a Care Plan: 1. CTH stable this morning with no evidence of new ICH. 2. NSGY followin. No Keppra 2. Neuro checks 3. HOB elevated. 4. Hold Chemo ppx. 3. Ortho following for possible hip fx. 1. CT showing no acute fx. 2. Ice as needed. 4. Likely RNF today. 5. Diet today. 6. Bowel regimen: Senna-S 7. Labs: Am labs PPX: 1. DVT: Hold DVT ppx. 2. Ulcer: none 3. Vit D level if > 65 yo: Pending. Consulted Services: 1. NSGY 2. Ortho 3. PT/OT. Dispo Plannin. PT/OT recs TBD. Case management following. Incidentals: 1. None Fol (more content not included)... [facility] 05-12-2021 Note HNO ID: [id number] Author: Chacho Ocampo MD Service: General Surgery Author Type: Physician Type: Progress Notes Filed: 05/13/2021 8:52 PM Note Text: INPATIENT SICU PROGRESS NOTE SERVICE DATE: 05/12/2021 SERVICE TIME: 5:57 AM Subjective Patient doing well overnight. No new complaints. Neuro intact. Denies any fevers or chills. Current Facility-Administered Medications Medication Dose Route Frequency - NaCl 0.9% iv flush bag 20 mL INTRAVENOUS PRN - atorvastatin 10 mg tab(s) (LIPITOR) 10 mg ORAL DAILY - famotidine 20 mg tab(s) (PEPCID) 20 mg ORAL HS PRN - FLUoxetine 10 mg cap(s) (PROzac) 10 mg ORAL DAILY - levothyroxine 50 mcg tab(s) (SYNTHROID) 50 mcg ORAL DAILY - potassium chloride ER 20-40 mEq tab(s) (K-DUR, KLOR-CON) 20-40 mEq ORAL/FEEDING TUBE PRN Or - potassium chloride iv piggyback 20 mEq/100 mL 20 mEq INTRAVENOUS PRN - magnesium sulfate in sterile water 2 g in sterile water 50 ml 2 g INTRAVENOUS PRN - phosphorus 500 mg tab(s) (K PHOS NEUTRAL) 500 mg ORAL/FEEDING TUBE PRN(NO DISPENSE) - calcium gluconate 4 g in NaCl 0.9% 250 mL 4 g INTRAVENOUS PRN - sodium chloride 0.9 % (flush) 3-5 mL (BD POSIFLUSH) 3-5 mL INTRAVENOUS q 12 H - NaCl 0.9% iv infusion 75 mL/hr INTRAVENOUS CONTINUOUS - acetaminophen 1,000 mg tab(s) (TYLENOL) 1,000 mg ORAL/FEEDING TUBE q 6 H - ondansetron 4 mg tab(s) (ZOFRAN) 4 mg ORAL q 6 H PRN Or - ondansetron (PF) 4 mg injection (ZOFRAN) 4 mg INTRAVENOUS q 6 H PRN - dextrose 40 % 15 g 15 g ORAL PRN Or - glucagon 1 mg injection 1 mg INTRAMUSCULAR PRN Or - dextrose 50% in water 25 mL syringe 12.5 g INTRAVENOUS PRN - insulin lispro pen (rapid acting) (HumaLOG KWIKPEN) SUBCUTANEOUS q 6 H Objective VITAL SIGNS BP 110/73 Pulse 69 Temp 98.6 Resp 14 Wt 182 lb (82.6kg) SpO2 89% O2 Therapy: Room Air Temp (24hrs), Av ?C (98.6 ?F), Min:37 ?C (98.6 ?F), Max:37 ?C (98.6 ?F) PHYSICAL EXAM: GENERAL: Alert. No distress. Resting comfortably. NEURO: AANDOx3. No focal neurologic deficits. Sensation grossly intact. HEENT: Normocephalic. Atraumatic. EOMI. LUNGS: Unlabored breathing. Equal excursion bilaterally. CARDIAC: Regular rate. Good perfusion throughout. ABDOMEN: Soft, non-tender, non-distended. No rebound or guarding. EXTREMITIES: WELCH. TTP right hip SKIN: No obvious jaundice or pallor. DATA: Diagnostic tests reviewed for today's visit: No results for input(s): BODSITE, CTYPE, PH, PCO2, PO2, BE, HCO3, CO2CT, O2HB, COHB, MHGB, TEMP, PHTC, PCO2T, PO2T, O2AD in the last 72 hours. 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 Internal Hemorrhoids Without Mention of Complication Diverticulosis of Colon (Without Mention of Hemorrhage) Hypertension Ddd (Degenerative Disc Disease), Thoracic Backache, Unspecified Pain in Thoracic Spine Diabetes Mellitus Type 2, Uncomplicated (Hcc) Uncontrolled Type 2 Diabetes Mellitus With Hyperglycemia (Hcc) Subdural Hematoma (Hcc) Tbi (Traumatic Brain Injury) (Hcc) Fall Subarachnoid Hemorrhage Following Injury, No Loss of Consciousness (Hcc) Assessment/Plan This is a 75 year old female with This is a 75 year old female with stable subdural hemorrhage and subarachnoid hemorrhage Hospital course: 05/11: CT head: subdural hematoma,hemorrhagic contusion of the right temporal lobe and posterior medial aspect of the left parietal lobe, focal subarachnoid bleed? 05/11: repeat CT: stable subdural and subarachnoid hemorrhoid 05/11 XR hip: possible right hip fracture Neuro: - Repeat head CT (05/12) - NSGY consult - appreciate recs - Keep SBP <160 - Elevate head of bed >30 degrees - repeat Head CT this AM - pain and nausea prn ? CV: - maintain MAPs > 65 - no indication for pressors at this time - continue to monitor vitals ? Resp: - stable on RA - CT chest - without acute findings - maintain SpO2 > 92 ? GI: - NPO - will give regular diet pending CT findings - Bowel Regimen: hold til diet - GI ppx: N/a - PRN zofran for nausea ? Renal: - strict Is/Os - creatinine - 0.73 - electrolyte replacement per unit protocol No intake or output data in the 24 hours ending 05/11/21 0659 Heme: - HGB - 13.9 - transfuse for hemoglobin < 7.0 or for symptomatic anemia, not indicated at this time ? Endo: - GLU - 125 - no indication for insulin at this time - SSI - continue blood sugar checks ? ID: - WBC - 13.23 - no indication for abx at this time - continue monitor for any signs of infection ? Ext: - Hip pain concern for o (more content not included)... [facility] 05-13-2014 History of Past i llness Narrative Problem Noted Date Resolved Date Essential hypertension, benign 1 07/13/2013 DIABETES MELLITUS TYPE II-UNCOMPL 05/13/2014 documented as of this encounter (statuses as of 09/27/2021) [facility] History of Past illness Narrative* Problem Noted Date Resolved Date Essential hypertension, benign 1 07/13/2013 DIABETES MELLITUS TYPE II-UNCOMPL 05/13/2014 documented as of this encounter (statuses as of 09/29/2021) [facility] History of Past illness Narrative* Problem Noted Date Resolved Date Essential hypertension, benign 1 07/13/2013 DIABETES MELLITUS TYPE II-UNCOMPL 05/13/2014 documented as of this encounter (statuses as of 10/20/2021) [facility] History of Past illness Narrative* Problem Noted Date Resolved Date Essential hypertension, benign 1 07/13/2013 DIABETES MELLITUS TYPE II-UNCOMPL 05/13/2014 documented as of this encounter (statuses as of 10/20/2021) [facility] History of Past illness Narrative* Problem Noted Date Resolved Date Essential hypertension, benign 1 07/13/2013 DIABETES MELLITUS TYPE II-UNCOMPL 05/13/2014 documented as of this encounter (statuses as of 11/16/2021) [facility] History of Past illness Narrative* Problem Noted Date Resolved Date Essential hypertension, benign 1 07/13/2013 DIABETES MELLITUS TYPE II-UNCOMPL 05/13/2014 documented as of this encounter (statuses as of 11/21/2021) [facility] History of Past illness Narrative* Problem Noted Date Resolved Date Essential hypertension, benign 1 07/13/2013 DIABETES MELLITUS TYPE II-UNCOMPL 05/13/2014 documented as of this encounter (statuses as of 11/23/2021) [facility] History of Past illness Narrative* Problem Noted Date Resolved Date Essential hypertension, benign 1 07/13/2013 DIABETES MELLITUS TYPE II-UNCOMPL 05/13/2014 documented as of this encounter (statuses as of 11/25/2021) [address] History of Past illness Narrative* Problem Noted Date Resolved Date Essential hypertension, benign 1 07/13/2013 DIABETES MELLITUS TYPE II-UNCOMPL 05/13/2014 documented as of this encounter (statuses as of 12/14/2021) [facility] History of Past illness Narrative* Problem Noted Date Resolved Date Essential hypertension, benign 1 07/13/2013 DIABETES MELLITUS TYPE II-UNCOMPL 05/13/2014 documented as of this encounter (statuses as of 01/17/2022) [facility] History of Past illness Narrative* Problem Noted Date Resolved Date Essential hypertension, benign 1 07/13/2013 DIABETES MELLITUS TYPE II-UNCOMPL 05/13/2014 documented as of this encounter (statuses as of 03/20/2022) [place] [address]-06-2014 History of Past illness Narrative* Problem Noted Date Resolved Date Essential hypertension, benign 1 07/13/2013 DIABETES MELLITUS TYPE II-UNCOMPL 05/13/2014 documented as of this encounter (statuses as of 03/23/2022) [facility] History of Past illness Narrative* Problem Noted Date Resolved Date Essential hypertension, benign 1 07/13/2013 DIABETES MELLITUS TYPE II-UNCOMPL 05/13/2014 documented as of this encounter (statuses as of 04/06/2022) [facility] History of Past illness Narrative* Problem Noted Date Resolved Date Essential hypertension, benign 1 07/13/2013 DIABETES MELLITUS TYPE II-UNCOMPL 05/13/2014 documented as of this encounter (statuses as of 04/19/2022) [facility] History of Past illness Narrative* Problem Noted Date Resolved Date Essential hypertension, benign 1 07/13/2013 DIABETES MELLITUS TYPE II-UNCOMPL 05/13/2014 documented as of this encounter (statuses as of 04/23/2022) [facility] History of Past illness Narrative* Problem Noted Date Resolved Date Essential hypertension, benign 1 07/13/2013 DIABETES MELLITUS TYPE II-UNCOMPL 05/13/2014 documented as of this encounter (statuses as of 05/04/2022) [facility] History of Past illness Narrative* Problem Noted Date Resolved Date Essential hypertension, benign 1 07/13/2013 DIABETES MELLITUS TYPE II-UNCOMPL 05/13/2014 documented as of this encounter (statuses as of 05/04/2022) [facility] History of Past illness Narrative* Problem Noted Date Resolved Date Essential hypertension, benign 1 07/13/2013 DIABETES MELLITUS TYPE II-UNCOMPL 05/13/2014 documented as of this encounter (statuses as of 05/21/2022) [facility] History of Past illness Narrative* Problem Noted Date Resolved Date Essential hypertension, benign 1 07/13/2013 DIABETES MELLITUS TYPE II-UNCOMPL 05/13/2014 documented as of this encounter (statuses as of 06/04/2022) [facility] History of Past illness Narrative* Problem Noted Date Resolved Date Essential hypertension, benign 1 07/13/2013 DIABETES MELLITUS TYPE II-UNCOMPL 05/13/2014 documented as of this encounter (statuses as of 06/20/2022) [facility] History of Past illness Narrative* Problem Noted Date Resolved Date Essential hypertension, benign 1 07/13/2013 DIABETES MELLITUS TYPE II-UNCOMPL 05/13/2014 documented as of this encounter (statuses as of 06/27/2022) [facility] History of Past illness Narrative* Problem Noted Date Resolved Date Essential hypertension, benign 1 07/13/2013 DIABETES MELLITUS TYPE II-UNCOMPL 05/13/2014 documented as of this encounter (statuses as of 07/10/2022) [facility]11-06-2014 History of Past illness Narrative* Problem Noted Date Resolved Date Essential hypertension, benign 1 07/13/2013 DIABETES MELLITUS TYPE II-UNCOMPL 05/13/2014 documented as of this encounter (statuses as of 07/23/2022) [facility]-2014 History of Past illness Narrative* Problem Noted Date Resolved Date Essential hypertension, benign 1 07/13/2013 DIABETES MELLITUS TYPE II-UNCOMPL 05/13/2014 documented as of this encounter (statuses as of 07/26/2022) [facility]-2014 History of Past illness Narrative* Problem Noted Date Resolved Date Essential hypertension, benign 1 07/13/2013 DIABETES MELLITUS TYPE II-UNCOMPL 05/13/2014 documented as of this encounter (statuses as of 07/26/2022) [address]06-2014 History of Past illness Narrative* Problem Noted Date Resolved Date Essential hypertension, benign 1 07/13/2013 DIABETES MELLITUS TYPE II-UNCOMPL 05/13/2014 documented as of this encounter (statuses as of 08/01/2022) [address]06-2014 History of Past illness Narrative* Problem Noted Date Resolved Date Essential hypertension, benign 1 07/13/2013 DIABETES MELLITUS TYPE II-UNCOMPL 05/13/2014 documented as of this encounter (statuses as of 08/16/2022) [address]06-2014 History of Past illness Narrative* Problem Noted Date Resolved Date Essential hypertension, benign 1 07/13/2013 DIABETES MELLITUS TYPE II-UNCOMPL 05/13/2014 documented as of this encounter (statuses as of 08/31/2022) [address]06-2014 History of Past illness Narrative* Problem Noted Date Resolved Date Essential hypertension, benign 1 07/13/2013 DIABETES MELLITUS TYPE II-UNCOMPL 05/13/2014 documented as of this encounter (statuses as of 09/18/2022) [place] [address]-06-2014 History of Past illness Narrative* Problem Noted Date Resolved Date Essential hypertension, benign 1 07/13/2013 DIABETES MELLITUS TYPE II-UNCOMPL 05/13/2014 documented as of this encounter (statuses as of 09/25/2022) [place] [address]-06-2014 History of Past illness Narrative* Problem Noted Date Resolved Date Essential hypertension, benign 1 07/13/2013 DIABETES MELLITUS TYPE II-UNCOMPL 05/13/2014 documented as of this encounter (statuses as of 09/25/2022) [place] [address]-06-2014 History of Past illness Narrative* Problem Noted Date Resolved Date Essential hypertension, benign 1 07/13/2013 DIABETES MELLITUS TYPE II-UNCOMPL 05/13/2014 documented as of this encounter (statuses as of 10/09/2022) [facility] History of Past illness Narrative* Problem Noted Date Resolved Date Essential hypertension, benign 1 07/13/2013 DIABETES MELLITUS TYPE II-UNCOMPL 05/13/2014 documented as of this encounter (statuses as of 10/22/2022) [address]06-2014 History of Past illness Narrative* Problem Noted Date Resolved Date Essential hypertension, benign 1 07/13/2013 DIABETES MELLITUS TYPE II-UNCOMPL 05/13/2014 documented as of this encounter (statuses as of 11/02/2022) [address]06-2014 History of Past illness Narrative* Problem Noted Date Resolved Date Essential hypertension, benign 1 07/13/2013 DIABETES MELLITUS TYPE II-UNCOMPL 05/13/2014 documented as of this encounter (statuses as of 12/07/2022) [address]06-2014 History of Past illness Narrative* Problem Noted Date Resolved Date Essential hypertension, benign 1 07/13/2013 DIABETES MELLITUS TYPE II-UNCOMPL 05/13/2014 documented as of this encounter (statuses as of 12/12/2022) [address]06-2014 History of Past illness Narrative* Problem Noted Date Diagnosed Date Resolved Date Essential hypertension, benign 05/13/2014 DIABETES MELLITUS TYPE II-UNCOMPL 05/13/2014 documented as of this encounter (statuses as of 01/22/2023) [address]06-2014 History of Past illness Narrative* Problem Noted Date Diagnosed Date Resolved Date Essential hypertension, benign 05/13/2014 DIABETES MELLITUS TYPE II-UNCOMPL 05/13/2014 documented as of this encounter (statuses as of 01/22/2023) [address]06-2014 History of Past illness Narrative* Problem Noted Date Diagnosed Date Resolved Date Essential hypertension, benign 05/13/2014 DIABETES MELLITUS TYPE II-UNCOMPL 05/13/2014 documented as of this encounter (statuses as of 01/22/2023) [address]06-2014 History of Past illness Narrative* Problem Noted Date Diagnosed Date Resolved Date Essential hypertension, benign 05/13/2014 DIABETES MELLITUS TYPE II-UNCOMPL 05/13/2014 documented as of this encounter (statuses as of 02/06/2023) [address]2014 History of Past illness Narrative* Problem Noted Date Diagnosed Date Resolved Date Essential hypertension, benign 05/13/2014 DIABETES MELLITUS TYPE II-UNCOMPL 05/13/2014 documented as of this encounter (statuses as of 04/19/2023) [address]06-2014 History of Past illness Narrative* Problem Noted Date Diagnosed Date Resolved Date Essential hypertension, benign 05/13/2014 DIABETES MELLITUS TYPE II-UNCOMPL 05/13/2014 documented as of this encounter (statuses as of 04/19/2023) [place] [address]-06-2014 History of Past illness Narrative* Problem Noted Date Diagnosed Date Resolved Date Essential hypertension, benign 05/13/2014 DIABETES MELLITUS TYPE II-UNCOMPL 05/13/2014 documented as of this encounter (statuses as of 04/20/2023) [place] [address]06-2014 History of Past illness Narrative* Problem Noted Date Diagnosed Date Resolved Date Essential hypertension, benign 05/13/2014 DIABETES MELLITUS TYPE II-UNCOMPL 05/13/2014 documented as of this encounter (statuses as of 04/23/2023) [facility]-2014 History of Past illness Narrative* Problem Noted Date Diagnosed Date Resolved Date Essential hypertension, benign 05/13/2014 DIABETES MELLITUS TYPE II-UNCOMPL 05/13/2014 documented as of this encounter (statuses as of 04/25/2023) [facility]-2014 History of Past illness Narrative* Problem Noted Date Diagnosed Date Resolved Date Essential hypertension, benign 05/13/2014 DIABETES MELLITUS TYPE II-UNCOMPL 05/13/2014 documented as of this encounter (statuses as of 04/29/2023) [facility]-2014 History of Past illness Narrative* Problem Noted Date Diagnosed Date Resolved Date Essential hypertension, benign 05/13/2014 DIABETES MELLITUS TYPE II-UNCOMPL 05/13/2014 documented as of this encounter (statuses as of 10/22/2023) [facility] note* Diagnosis Type 2 diabetes mellitus without complication, without long-term current use of insulin ([facility])- Primary Diarrhea, unspecified type Hypertension, unspecified type Hypothyroidism, unspecified type Mixed hyperlipidemia Anxiety state Anxiety state, unspecified Subarachnoid hemorrhage following injury, no loss of consciousness, sequela ([facility]) Tobacco use Tobacco use disorder Tick bite, unspecified site, initial encounter [facility]* Diagnosis Type 2 diabetes mellitus without complication, without long-term current use of insulin ([facility]) [facility] Diagnosis Anxiety state Anxiety state, unspecified [facility]* Diagnosis Anxiety state Anxiety state, unspecified [facility] Diagnosis Congestion of nasal sinus- Primary Other diseases of nasal cavity and sinuses documented in this encounter [facility] note* Diagnosis Anxiety state Anxiety state, unspecified [facility]* Diagnosis Hypothyroidism, unspecified type Type 2 diabetes mellitus without complication, without long-term current use of insulin (HCC) Anxiety state Anxiety state, unspecified documented in this encounter [facility] note* Diagnosis Uncontrolled type 2 diabetes mellitus with hyperglycemia (HCC)- Primary Mixed hyperlipidemia Hypertension, unspecified type Anxiety state Anxiety state, unspecified Fall, initial encounter Hypothyroidism, unspecified type Arthritis of both hands documented in this encounter [facility] note* Diagnosis Anxiety state Anxiety state, unspecified Type 2 diabetes mellitus without complication, without long-term current use of insulin (HCC) [facility] Diagnosis Anxiety state Anxiety state, unspecified [facility]* Diagnosis Uncontrolled type 2 diabetes mellitus with hyperglycemia (HCC) [facility]* Diagnosis Anxiety state Anxiety state, unspecified documented [facility]* Diagnosis Type 2 diabetes mellitus without complication, without long-term current use of insulin (HCC) Anxiety state Anxiety state, unspecified documented [facility]* Diagnosis Sciatica, right side- Primary documented [facility]* Diagnosis Hip pain- Primary Pain in joint, pelvic region and thigh [facility]* Diagnosis Anxiety state Anxiety state, unspecified documented [facility]* Diagnosis Uncontrolled type 2 diabetes mellitus with hyperglycemia (HCC) [facility]* Diagnosis Uncontrolled type 2 diabetes mellitus with hyperglycemia (HCC) documented [facility]* Diagnosis Mixed hyperlipidemia [facility] Diagnosis Uncontrolled type 2 diabetes mellitus with hyperglycemia (HCC)- Primary Mixed hyperlipidemia [facility]* Diagnosis Hypertension, unspecified type [facility]* Diagnosis Anxiety state Anxiety state, unspecified Uncontrolled type 2 diabetes mellitus with hyperglycemia (HCC) documented [facility] noteNo assessment information availableWOhio[facility] Work Phone: [facility] note* Diagnosis Hypothyroidism, unspecified type [facility]* Diagnosis Onset Date Resolution Status Spinal stenosis at L4-L5 level acute Greater trochanteric bursitis of right hip noneactive IT band syndrome noneactive [facility] Work Phone: Evaluation note* Diagnosis Chest tightness- Primary Other chest pain [facility]* Diagnosis Closed fracture of one rib of left side, initial encounter- Primary Rib injury Sprain of ribs documented [facility]* Diagnosis Anxiety state Anxiety state, unspecified documented [facility]* Diagnosis Medicare annual wellness visit, initial- Primary [facility] Type 2 diabetes mellitus without complication, without long-term current use of insulin (HCC) Hypertension, unspecified type Mixed hyperlipidemia Anxiety state Anxiety state, unspecified Hypothyroidism, unspecified type History of COVID-19 documented [facility] this encounter [facility]* Diagnosis Hypertension, unspecified type [facility]* Diagnosis Anxiety state Anxiety state, unspecified documented [facility] this [facility]* Diagnosis Anxiety state Anxiety state, unspecified Hypertension, unspecified type [facility]* Diagnosis Mixed hyperlipidemia Anxiety state Anxiety state, unspecified Hypertension, unspecified type [facility] this [facility]* Diagnosis Acute hip pain, right documented [facility] this [facility]* Diagnosis Hip pain Pain in joint, pelvic region and thigh documented [facility] this [facility]* Diagnosis Viral URI with cough Acute upper respiratory infections of unspecified site documented [facility] this [facility]* Diagnosis Anxiety state Anxiety state, unspecified [facility]* Diagnosis Hypothyroidism, unspecified type Anxiety state Anxiety state, unspecified documented [facility] this [facility]* Diagnosis Mixed hyperlipidemia- Primary Type 2 diabetes mellitus without complication, without long-term current use of insulin (HCC) Hypertension, unspecified type Hypothyroidism, unspecified type documented [facility]* Diagnosis Medicare annual wellness visit, subsequent- Primary Routine general medical examination at a [facility] facility Sciatica, right side Acute pain of left knee Type 2 diabetes mellitus without complication, without long-term current use of insulin (HCC) Hypothyroidism, unspecified type Asthma due to seasonal allergies Anxiety state Anxiety state, unspecified Smoking Tobacco use disorder Screening for depression [facility] Diagnosis Anxiety state Anxiety state, unspecified documented in this encounter [facility] note* Diagnosis Type 2 diabetes mellitus without complication, without long-term current use of insulin (HCC)- Primary Sciatica, right side Hypothyroidism, unspecified type Anxiety state Anxiety state, unspecified Asthma due to seasonal allergies Mixed hyperlipidemia Smoking Tobacco use disorder documented in this encounter [facility] note* Diagnosis Asthma due to seasonal allergies Sciatica, right side Type 2 diabetes mellitus without complication, without long-term current use of insulin (HCC) documented in this encounter [facility] note* Diagnosis Type 2 diabetes mellitus with other specified complication, without long-term current use of insulin (HCC)- Primary documented in this encounter [facility] note* Diagnosis Anxiety state Anxiety state, unspecified documented in this encounter [facility] note* Diagnosis Type 2 diabetes mellitus without complication, without long-term current use of insulin (HCC) documented in this encounter [facility] note* Diagnosis Anxiety state Anxiety state, unspecified documented in this encounter [facility] note* Diagnosis Mixed hyperlipidemia Hypertension, unspecified type [facility] Additional Instructions Ambulatory pulse ox 97% on room air. Monitor pulse ox at home, if drops below 88 return to ED for reevaluation otherwise follow-up with your doctor.[facility] Work Phone: Reason for referral (narrative)* Diagnostic Procedure Only (Routine) - Closed Specialty Diagnoses / Procedures Referred By Contac t Referred To Contact XR IMAGING Diagnoses Hip pain Procedures XR HIP BILATERAL 5V PEL/AP/LAT EACH HIP RADEX HIPS BILATERAL WITH PELVIS MINIMUM 5 VIEWS Silvia Vazquez, OL[address] [place] [address] Xr Imaging Referral ID Status Reason Start Date Expiration Date V isits Requested Visits Authorized [id number] Closed Auto-Generate d Referral 07/04/2022 08/03/2023 1 1 [facility] for referral (narrative)* Diagnostic Procedure Only (Urgent) - Closed Specialty Diagnoses / Procedures Referred By Contac t Referred To Contact XR IMAGING Diagnoses Rib injury Procedures XR RIBS/CHEST 3V AP RIB/OBLS/CXR LEFT RADEX RIBS UNI W/POSTEROANT CH MINIMUM 3 VIEWS Spencer Lopez APRN.MEDICAL AFFAIRS LEADER [address] [place] [address] [place] [address] Referral ID Status Reason Start Date Expiration Date V isits Requested Visits Authorized [id number] Closed Auto-Generate d Referral 04/22/2023 05/21/2024 1 1 [facility] for referral (narrative)* Diagnostic Procedure Only (Urgent) - Closed Specialty Diagnoses / Procedures Referred By Contac t Referred To Contact XR IMAGING Diagnoses Acute hip pain, right Procedures XR HIP GENERAL 3V PELV/AP/LAT RIGHT RADEX HIP UNILATERAL WITH PELVIS 2-3 VIEWS David Alexis MD [address] [place] [address] [place] [address] Referral ID Status Reason Start Date Expiration Date V isits Requested Visits Authorized [id number] Closed Auto-Generate d Referral 11/22/2022 12/22/2023 1 1 [facility] for referral (narrative)* Diagnostic Procedure Only (Routine) - Closed Specialty Diagnoses / Procedures Referred By Contac t Referred To Contact XR IMAGING Diagnoses Hip pain Procedures XR HIP BILATERAL 5V PEL/AP/LAT EACH HIP RADEX HIPS BILATERAL WITH PELVIS MINIMUM 5 VIEWS Silvia Vazquez APRN.MEDICAL AFFAIRS LEADER [address] [place] [address] [place] [address] Referral ID Status Reason Start Date Expiration Date V isits Requested Visits Authorized [id number] Closed Auto-Generate d Referral 07/04/2022 08/03/2023 1 1 [facility] for visit Narrative* Diagnostic Procedure Only (Urgent) - Closed Specialty Diagnoses / Procedures Referred By Contac t Referred To Contact XR IMAGING Diagnoses Rib injury Procedures XR RIBS/CHEST 3V AP RIB/OBLS/CXR LEFT RADEX RIBS UNI W/POSTEROANT CH MINIMUM 3 VIEWS Spencer Lopez APRN.MEDICAL AFFAIRS LEADER [address] [place] [address] [place] [address] Referral ID Status Reason Start Date Expiration Date V isits Requested Visits Authorized [id number] Closed Auto-Generate d Referral 04/22/2023 05/21/2024 1 1 [facility] for visit Narrative* Diagnostic Procedure Only (Urgent) - Closed Specialty Diagnoses / Procedures Referred By Contac t Referred To Contact XR IMAGING Diagnoses Acute hip pain, right Procedures XR HIP GENERAL 3V PELV/AP/LAT RIGHT RADEX HIP UNILATERAL WITH PELVIS 2-3 VIEWS David Alexis MD [address] [place] [address] [place] [address] Referral ID Status Reason Start Date Expiration Date V isits Requested Visits Authorized [id number] Closed Auto-Generate d Referral 11/22/2022 12/22/2023 1 1 [facility] for visit Narrative* Diagnostic Procedure Only (Routine) - Closed Specialty Diagnoses / Procedures Referred By Contac t Referred To Contact XR IMAGING Diagnoses Hip pain Procedures XR HIP BILATERAL 5V PEL/AP/LAT EACH HIP RADEX HIPS BILATERAL WITH PELVIS MINIMUM 5 VIEWS Silvia Vazquez APRN.MEDICAL AFFAIRS LEADER [address] [place] [address] [place] [address] Referral ID Status Reason Start Date Expiration Date V isits Requested Visits Authorized [id number] Closed Auto-Generate d Referral 07/04/2022 08/03/2023 1 1 [facility] Summary Purpose Family History No Family History Records FoundNo Family History Records FoundNo Family History Records Found Advance Directives No Advanced Directives Records FoundDocuments on File Type Date Recorded 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 Advance Directive(s) 05/11/2021 4:29 PM Advance Directive Response Recorded Date/ Time Living Will No February 22 10:11pm Power of Machine Tool Operator No February 22 023 10:11pm Advance Directive Response Recorded Date/ Time Living Will No April 19 8:36pm Power of Machine Tool Operator No April 19, 2023 8:36pm Medications Administered Section Inactive Administered Medications - up to 3 most recent administrations Medication Order MAR Action Action Date Dose Rate Site keTORolac 60 mg injection (TORADOL) 60 mg, INTRAMUSCULAR, ONCE, 1 dose, On Sat06/27/22 at 0930, Ketorolac (Toradol) is indicated for the short-term (up to 5 days) management of moderately severe acute pain. Continuation of ketorolac (Toradol) beyond 5 days increases the risk of developing serious adverse events. Please verify the duration of therapy for ketorolac (Toradol)., If ordered PRN for pain, patient/guardian may elect to receive this medication for higher pain levels INSTEAD of the opioid, if preferred: Yes Given 06/27/2022 9:50 AM EST 60 mg Buttocks, Right Chief Complaint and Reason for Visit Chief Complaint BACK PAIN RIGHT HIP/LEG PAIN Chief Complaint RIGHT HIP/LEG PAIN RIGHT HIP SOB Reason for Visit Spinal stenosis at L 4-L5 level Greater trochanteric bursitis of right hip IT band syndrome Additional Source Comments INFORMATION SOURCE (unrecogn ized section and content) DATE CREATED AUTHOR 07/19/2021 [facility] DATE CREATED AUTHOR AUTHOR'S ORGANIZ ATION 03/02/2023 [facility] DATE CREATED AUTHOR AUTHOR'S ORGANIZ ATION 05/06/2025 [facility] Source Comments (unrecognize d section and content) In the event this informatio n is protected by the Federal Confidentiality of Alcohol and Drug Abuse Patient Records regulations: The Federal rules restrict any use of the information to criminally investigate or prosecute any alcohol or drug abuse patient.[facility] the event this information is protected by the Federal Confidentiality of Alcohol and Drug Abuse Patient Records regulations: The Federal rules restrict any use of the information to criminally investigate or prosecute any alcohol or drug abuse patient.[facility] the event this information is protected by the Federal Confidentiality of Alcohol and Drug Abuse Patient Records regulations: The Federal rules restrict any use of the information to criminally investigate or prosecute any alcohol or drug abuse patient.[facility] the event this information is protected by the Federal Confidentiality of Alcohol and Drug Abuse Patient Records regulations: The Federal rules restrict any use of the information to criminally investigate or prosecute any alcohol or drug abuse patient.[facility] the event this information is protected by the Federal Confidentiality of Alcohol and Drug Abuse Patient Records regulations: The Federal rules restrict any use of the information to criminally investigate or prosecute any alcohol or drug abuse patient.[facility] the event this information is protected by the Federal Confidentiality of Alcohol and Drug Abuse Patient Records regulations: The Federal rules restrict any use of the information to criminally investigate or prosecute any alcohol or drug abuse patient.[facility] the event this information is protected by the Federal Confidentiality of Alcohol and Drug Abuse Patient Records regulations: The Federal rules restrict any use of the information to criminally investigate or prosecute any alcohol or drug abuse patient.[facility] CenterIn the event this information is protected by the Federal Confidentiality of Alcohol and Drug Abuse Patient Records regulations: The Federal rules restrict any use of the information to criminally investigate or prosecute any alcohol or drug abuse patient.[facility] CenterIn the event this information is protected by the Federal Confidentiality of Alcohol and Drug Abuse Patient Records regulations: The Federal rules restrict any use of the information to criminally investigate or prosecute any alcohol or drug abuse patient.[facility] CenterIn the event this information is protected by the Federal Confidentiality of Alcohol and Drug Abuse Patient Records regulations: The Federal rules restrict any use of the information to criminally investigate or prosecute any alcohol or drug abuse patient.[facility] CenterIn the event this information is protected by the Federal Confidentiality of Alcohol and Drug Abuse Patient Records regulations: The Federal rules restrict any use of the information to criminally investigate or prosecute any alcohol or drug abuse patient.[facility] CenterIn the event this information is protected by the Federal Confidentiality of Alcohol and Drug Abuse Patient Records regulations: The Federal rules restrict any use of the information to criminally investigate or prosecute any alcohol or drug abuse patient.[facility] CenterIn the event this information is protected by the Federal Confidentiality of Alcohol and Drug Abuse Patient Records regulations: The Federal rules restrict any use of the information to criminally investigate or prosecute any alcohol or drug abuse patient.[facility] CenterIn the event this information is protected by the Federal Confidentiality of Alcohol and Drug Abuse Patient Records regulations: The Federal rules restrict any use of the information to criminally investigate or prosecute any alcohol or drug abuse patient.[facility] CenterIn the event this information is protected by the Federal Confidentiality of Alcohol and Drug Abuse Patient Records regulations: The Federal rules restrict any use of the information to criminally investigate or prosecute any alcohol or drug abuse patient.[facility] CenterIn the event this information is protected by the Federal Confidentiality of Alcohol and Drug Abuse Patient Records regulations: The Federal rules restrict any use of the information to criminally investigate or prosecute any alcohol or drug abuse patient.[facility] CenterIn the event this information is protected by the Federal Confidentiality of Alcohol and Drug Abuse Patient Records regulations: The Federal rules restrict any use of the information to criminally investigate or prosecute any alcohol or drug abuse patient.[facility] CenterIn the event this information is protected by the Federal Confidentiality of Alcohol and Drug Abuse Patient Records regulations: The Federal rules restrict any use of the information to criminally investigate or prosecute any alcohol or drug abuse patient.[facility] CenterIn the event this information is protected by the Federal Confidentiality of Alcohol and Drug Abuse Patient Records regulations: The Federal rules restrict any use of the information to criminally investigate or prosecute any alcohol or drug abuse patient.[facility] CenterIn the event this information is protected by the Federal Confidentiality of Alcohol and Drug Abuse Patient Records regulations: The Federal rules restrict any use of the information to criminally investigate or prosecute any alcohol or drug abuse patient.[facility] CenterIn the event this information is protected by the Federal Confidentiality of Alcohol and Drug Abuse Patient Records regulations: The Federal rules restrict any use of the information to criminally investigate or prosecute any alcohol or drug abuse patient.[facility] CenterIn the event this information is protected by the Federal Confidentiality of Alcohol and Drug Abuse Patient Records regulations: The Federal rules restrict any use of the information to criminally investigate or prosecute any alcohol or drug abuse patient.[facility] CenterIn the event this information is protected by the Federal Confidentiality of Alcohol and Drug Abuse Patient Records regulations: The Federal rules restrict any use of the information to criminally investigate or prosecute any alcohol or drug abuse patient.[facility] CenterIn the event this information is protected by the Federal Confidentiality of Alcohol and Drug Abuse Patient Records regulations: The Federal rules restrict any use of the information to criminally investigate or prosecute any alcohol or drug abuse patient.[facility] CenterIn the event this information is protected by the Federal Confidentiality of Alcohol and Drug Abuse Patient Records regulations: The Federal rules restrict any use of the information to criminally investigate or prosecute any alcohol or drug abuse patient.[facility] the event this information is protected by the Federal Confidentiality of Alcohol and Drug Abuse Patient Records regulations: The Federal rules restrict any use of the information to criminally investigate or prosecute any alcohol or drug abuse patient.[facility] CenterIn the event this information is protected by the Federal Confidentiality of Alcohol and Drug Abuse Patient Records regulations: The Federal rules restrict any use of the information to criminally investigate or prosecute any alcohol or drug abuse patient.[facility] CenterIn the event this information is protected by the Federal Confidentiality of Alcohol and Drug Abuse Patient Records regulations: The Federal rules restrict any use of the information to criminally investigate or prosecute any alcohol or drug abuse patient.[facility] CenterIn the event this information is protected by the Federal Confidentiality of Alcohol and Drug Abuse Patient Records regulations: The Federal rules restrict any use of the information to criminally investigate or prosecute any alcohol or drug abuse patient.[facility] CenterIn the event this information is protected by the Federal Confidentiality of Alcohol and Drug Abuse Patient Records regulations: The Federal rules restrict any use of the information to criminally investigate or prosecute any alcohol or drug abuse patient.[facility] CenterIn the event this information is protected by the Federal Confidentiality of Alcohol and Drug Abuse Patient Records regulations: The Federal rules restrict any use of the information to criminally investigate or prosecute any alcohol or drug abuse patient.[facility] CenterIn the event this information is protected by the Federal Confidentiality of Alcohol and Drug Abuse Patient Records regulations: The Federal rules restrict any use of the information to criminally investigate or prosecute any alcohol or drug abuse patient.[facility] CenterIn the event this information is protected by the Federal Confidentiality of Alcohol and Drug Abuse Patient Records regulations: The Federal rules restrict any use of the information to criminally investigate or prosecute any alcohol or drug abuse patient.[facility] CenterIn the event this information is protected by the Federal Confidentiality of Alcohol and Drug Abuse Patient Records regulations: The Federal rules restrict any use of the information to criminally investigate or prosecute any alcohol or drug abuse patient.[facility] CenterIn the event this information is protected by the Federal Confidentiality of Alcohol and Drug Abuse Patient Records regulations: The Federal rules restrict any use of the information to criminally investigate or prosecute any alcohol or drug abuse patient.[facility] CenterIn the event this information is protected by the Federal Confidentiality of Alcohol and Drug Abuse Patient Records regulations: The Federal rules restrict any use of the information to criminally investigate or prosecute any alcohol or drug abuse patient.[facility] CenterIn the event this information is protected by the Federal Confidentiality of Alcohol and Drug Abuse Patient Records regulations: The Federal rules restrict any use of the information to criminally investigate or prosecute any alcohol or drug abuse patient.[facility] CenterIn the event this information is protected by the Federal Confidentiality of Alcohol and Drug Abuse Patient Records regulations: The Federal rules restrict any use of the information to criminally investigate or prosecute any alcohol or drug abuse patient.[facility] CenterIn the event this information is protected by the Federal Confidentiality of Alcohol and Drug Abuse Patient Records regulations: The Federal rules restrict any use of the information to criminally investigate or prosecute any alcohol or drug abuse patient.[facility] CenterIn the event this information is protected by the Federal Confidentiality of Alcohol and Drug Abuse Patient Records regulations: The Federal rules restrict any use of the information to criminally investigate or prosecute any alcohol or drug abuse patient.[facility] CenterIn the event this information is protected by the Federal Confidentiality of Alcohol and Drug Abuse Patient Records regulations: The Federal rules restrict any use of the information to criminally investigate or prosecute any alcohol or drug abuse patient.[facility] CenterIn the event this information is protected by the Federal Confidentiality of Alcohol and Drug Abuse Patient Records regulations: The Federal rules restrict any use of the information to criminally investigate or prosecute any alcohol or drug abuse patient.[facility] CenterIn the event this information is protected by the Federal Confidentiality of Alcohol and Drug Abuse Patient Records regulations: The Federal rules restrict any use of the information to criminally investigate or prosecute any alcohol or drug abuse patient.[facility] CenterIn the event this information is protected by the Federal Confidentiality of Alcohol and Drug Abuse Patient Records regulations: The Federal rules restrict any use of the information to criminally investigate or prosecute any alcohol or drug abuse patient.[facility] CenterIn the event this information is protected by the Federal Confidentiality of Alcohol and Drug Abuse Patient Records regulations: The Federal rules restrict any use of the information to criminally investigate or prosecute any alcohol or drug abuse patient.[facility] CenterIn the event this information is protected by the Federal Confidentiality of Alcohol and Drug Abuse Patient Records regulations: The Federal rules restrict any use of the information to criminally investigate or prosecute any alcohol or drug abuse patient.[facility] CenterIn the event this information is protected by the Federal Confidentiality of Alcohol and Drug Abuse Patient Records regulations: The Federal rules restrict any use of the information to criminally investigate or prosecute any alcohol or drug abuse patient.[facility] CenterIn the event this information is protected by the Federal Confidentiality of Alcohol and Drug Abuse Patient Records regulations: The Federal rules restrict any use of the information to criminally investigate or prosecute any alcohol or drug abuse patient.[facility] CenterIn the event this information is protected by the Federal Confidentiality of Alcohol and Drug Abuse Patient Records regulations: The Federal rules restrict any use of the information to criminally investigate or prosecute any alcohol or drug abuse patient.[facility] CenterIn the event this information is protected by the Federal Confidentiality of Alcohol and Drug Abuse Patient Records regulations: The Federal rules restrict any use of the information to criminally investigate or prosecute any alcohol or drug abuse patient.[facility] CenterIn the event this information is protected by the Federal Confidentiality of Alcohol and Drug Abuse Patient Records regulations: The Federal rules restrict any use of the information to criminally investigate or prosecute any alcohol or drug abuse patient.[facility] CenterIn the event this information is protected by the Federal Confidentiality of Alcohol and Drug Abuse Patient Records regulations: The Federal rules restrict any use of the information to criminally investigate or prosecute any alcohol or drug abuse patient.[facility] CenterIn the event this information is protected by the Federal Confidentiality of Alcohol and Drug Abuse Patient Records regulations: The Federal rules restrict any use of the information to criminally investigate or prosecute any alcohol or drug abuse patient.[facility] CenterIn the event this information is protected by the Federal Confidentiality of Alcohol and Drug Abuse Patient Records regulations: The Federal rules restrict any use of the information to criminally investigate or prosecute any alcohol or drug abuse patient.[facility] CenterIn the event this information is protected by the Federal Confidentiality of Alcohol and Drug Abuse Patient Records regulations: The Federal rules restrict any use of the information to criminally investigate or prosecute any alcohol or drug abuse patient.[facility] CenterIn the event this information is protected by the Federal Confidentiality of Alcohol and Drug Abuse Patient Records regulations: The Federal rules restrict any use of the information to criminally investigate or prosecute any alcohol or drug abuse patient.[facility] CenterIn the event this information is protected by the Federal Confidentiality of Alcohol and Drug Abuse Patient Records regulations: The Federal rules restrict any use of the information to criminally investigate or prosecute any alcohol or drug abuse patient.[facility] CenterIn the event this information is protected by the Federal Confidentiality of Alcohol and Drug Abuse Patient Records regulations: The Federal rules restrict any use of the information to criminally investigate or prosecute any alcohol or drug abuse patient.[facility] CenterIn the event this information is protected by the Federal Confidentiality of Alcohol and Drug Abuse Patient Records regulations: The Federal rules restrict any use of the information to criminally investigate or prosecute any alcohol or drug abuse patient.[facility] CenterIn the event this information is protected by the Federal Confidentiality of Alcohol and Drug Abuse Patient Records regulations: The Federal rules restrict any use of the information to criminally investigate or prosecute any alcohol or drug abuse patient.[facility] CenterIn the event this information is protected by the Federal Confidentiality of Alcohol and Drug Abuse Patient Records regulations: The Federal rules restrict any use of the information to criminally investigate or prosecute any alcohol or drug abuse patient.[facility] CenterIn the event this information is protected by the Federal Confidentiality of Alcohol and Drug Abuse Patient Records regulations: The Federal rules restrict any use of the information to criminally investigate or prosecute any alcohol or drug abuse patient.[facility] CenterIn the event this information is protected by the Federal Confidentiality of Alcohol and Drug Abuse Patient Records regulations: The Federal rules restrict any use of the information to criminally investigate or prosecute any alcohol or drug abuse patient.[facility] CenterIn the event this information is protected by the Federal Confidentiality of Alcohol and Drug Abuse Patient Records regulations: The Federal rules restrict any use of the information to criminally investigate or prosecute any alcohol or drug abuse patient.[facility] CenterIn the event this information is protected by the Federal Confidentiality of Alcohol and Drug Abuse Patient Records regulations: The Federal rules restrict any use of the information to criminally investigate or prosecute any alcohol or drug abuse patient.[facility] CenterIn the event this information is protected by the Federal Confidentiality of Alcohol and Drug Abuse Patient Records regulations: The Federal rules restrict any use of the information to criminally investigate or prosecute any alcohol or drug abuse patient.[facility] CenterIn the event this information is protected by the Federal Confidentiality of Alcohol and Drug Abuse Patient Records regulations: The Federal rules restrict any use of the information to criminally investigate or prosecute any alcohol or drug abuse patient.[facility] CenterIn the event this information is protected by the Federal Confidentiality of Alcohol and Drug Abuse Patient Records regulations: The Federal rules restrict any use of the information to criminally investigate or prosecute any alcohol or drug abuse patient.[facility] CenterIn the event this information is protected by the Federal Confidentiality of Alcohol and Drug Abuse Patient Records regulations: The Federal rules restrict any use of the information to criminally investigate or prosecute any alcohol or drug abuse patient.[facility] CenterIn the event this information is protected by the Federal Confidentiality of Alcohol and Drug Abuse Patient Records regulations: The Federal rules restrict any use of the information to criminally investigate or prosecute any alcohol or drug abuse patient.[facility] CenterIn the event this information is protected by the Federal Confidentiality of Alcohol and Drug Abuse Patient Records regulations: The Federal rules restrict any use of the information to criminally investigate or prosecute any alcohol or drug abuse patient.[facility] CenterIn the event this information is protected by the Federal Confidentiality of Alcohol and Drug Abuse Patient Records regulations: The Federal rules restrict any use of the information to criminally investigate or prosecute any alcohol or drug abuse patient.[facility] CenterIn the event this information is protected by the Federal Confidentiality of Alcohol and Drug Abuse Patient Records regulations: The Federal rules restrict any use of the information to criminally investigate or prosecute any alcohol or drug abuse patient.[facility] CenterIn the event this information is protected by the Federal Confidentiality of Alcohol and Drug Abuse Patient Records regulations: The Federal rules restrict any use of the information to criminally investigate or prosecute any alcohol or drug abuse patient.[facility] CenterIn the event this information is protected by the Federal Confidentiality of Alcohol and Drug Abuse Patient Records regulations: The Federal rules restrict any use of the information to criminally investigate or prosecute any alcohol or drug abuse patient.[facility] the event this information is protected by the Federal Confidentiality of Alcohol and Drug Abuse Patient Records regulations: The Federal rules restrict any use of the information to criminally investigate or prosecute any alcohol or drug abuse patient.[facility] CenterIn the event this information is protected by the Federal Confidentiality of Alcohol and Drug Abuse Patient Records regulations: The Federal rules restrict any use of the information to criminally investigate or prosecute any alcohol or drug abuse patient.[facility] CenterIn the event this information is protected by the Federal Confidentiality of Alcohol and Drug Abuse Patient Records regulations: The Federal rules restrict any use of the information to criminally investigate or prosecute any alcohol or drug abuse patient.[facility] CenterIn the event this information is protected by the Federal Confidentiality of Alcohol and Drug Abuse Patient Records regulations: The Federal rules restrict any use of the information to criminally investigate or prosecute any alcohol or drug abuse patient.[facility] CenterIn the event this information is protected by the Federal Confidentiality of Alcohol and Drug Abuse Patient Records regulations: The Federal rules restrict any use of the information to criminally investigate or prosecute any alcohol or drug abuse patient.[facility] CenterIn the event this information is protected by the Federal Confidentiality of Alcohol and Drug Abuse Patient Records regulations: The Federal rules restrict any use of the information to criminally investigate or prosecute any alcohol or drug abuse patient.[facility] Reason for Visit (unrecogniz ed section and content) Reason Comments Wellness Reason Comments Results Reason Onset Date Comments Refill Request 10/20/2021 Reason Comments Acute Visit possible bronchitis x 4 days Reason Comments Patient Question Patient Update Reason Comments Medication Problem Reason Onset Date Comments Refill Request 01/17/2022 Reason Comments Refill Request Reason Onset Date Comments Refill Request 03/23/2022 Reason Comments 6 Month Exam Reason Onset Date Comments Refill Request 04/21/2022 Reason Onset Date Comments Refill Request 05/03/2022 Reason Onset Date Comments Refill Request 05/21/2022 Reason Onset Date Comments Refill Request 06/20/2022 Reason Comments Acute Visit sciatic pain right l eg Reason Comments Patient Update Reason Onset Date Comments Refill Request 07/23/2022 Reason Onset Date Comments Refill Request 07/26/2022 Reason Comments Insurance Authorization Trulicity Reason Comments Results Patient Update Patient Question Reason Onset Date Comments Refill Request 08/30/2022 Reason Comments handicap placard request Reason Comments Trul[employer] PA Reason Onset Date Comments Refill Request 10/21/2022 Reason Onset Date Comments Refill Request 11/02/2022 Reason Onset Date Comments Population Health Navigation Outreach 12/11/2022 [employer] Low HCC Reason Onset Date Comments Refill Request 01/21/2023 Reason Onset Date Comments [facility] Health Navigation Outreach 02/05/2023 [employer] Low HCC Reason Comments Patient Update Reason Comments Cough SOB, congestion, fat igue Reason Comments Covid Positive Follow Up For Reason Comments Rib Injury left side rib pain a fter fall x 12 hours Reason Onset Date Comments Refill Request 04/24/2023 Reason Comments Medicare Wellness Exam Reason Onset Date Comments Refill Request 10/22/2023 Reason Onset Date Comments Refill Request 01/17/2024 Reason Onset Date Comments Refill Request 04/20/2024 Reason Onset Date Comments Refill Request 04/24/2024 Reason Onset Date Comments Refill Request 05/18/2024 Reason Onset Date Comments Refill Request 07/21/2024 Reason Onset Date Comments [facility] Health Navigation Outreach 08/21/2024 [employer] High Risk - Attempt 1 Reason Onset Date Comments CDM 09/11/2024 Enrollment outre ach Reason Comments Follow Up 3 month follow up wi th labs Reason Onset Date Comments [facility] Navigation Outreach 09/24/2024 humansarah dhaliwal Reason Onset Date Comments Refill Request 09/25/2024 Reason Onset Date Comments Care Coordination 10/13/2024 Referred to [facility] for Diabetes Management Reason Onset Date Comments Refill Request 10/19/2024 Reason Comments New Primary Care Pharmacy Appt. Reason Onset Date Comments Refill Request 11/29/2024 Reason Comments Insurance Authorization Reason Onset Date Comments Refill Request 01/19/2025 Care Teams (unrecognized sec tion and content) Entry Level Account Representative Relationship Specialty Start Date End Date Deirdre Quiñones MD [address] [place] [address] PCP - General Family Practice 05/19/18 Entry Level Account Representative Relationship Specialty Start Date End Date Deirdre Quiñones MD [address] [facility] [place] [address] PCP - General Family Practice 05/19/18 Entry Level Account Representative Relationship Specialty Start Date End Date Deirdre Quiñones MD [address] [facility] [place] [address] PCP - General Family Practice 05/19/18 Entry Level Account Representative Relationship Specialty Start Date End Date Deirdre Quiñones MD [address] [facility] [place] [address] PCP - General Family Practice 05/19/18 Entry Level Account Representative Relationship Specialty Start Date End Date Deirdre Quiñones MD [facility] [facility] [place] [address] PCP - General Family Practice 05/19/18 Entry Level Account Representative Relationship Specialty Start Date End Date Deirdre Quiñones MD [address] [facility] [place] [address] PCP - General Family Practice 05/19/18 Entry Level Account Representative Relationship Specialty Start Date End Date Deirdre Quiñones MD [address] [facility] [place] [address] PCP - General Family Practice 05/19/18 Entry Level Account Representative Relationship Specialty Start Date End Date Deirdre Quiñones MD [address] [facility] [place] [address] PCP - General Family Practice 05/19/18 Entry Level Account Representative Relationship Specialty Start Date End Date Deirdre Quiñones MD [address] [facility] [place] [address] PCP - General Family Practice 05/19/18 Entry Level Account Representative Relationship Specialty Start Date End Date Deirdre Quiñones MD [address] [facility] [place] [address] PCP - General Family Medicine 05/19/18 Entry Level Account Representative Relationship Specialty Start Date End Date Deirder Quiñones MD [address] [facility] [place] [address] PCP - General Family Medicine 05/19/18 Entry Level Account Representative Relationship Specialty Start Date End Date Deirdre Quiñones MD [address] [facility] [place] [address] PCP - General Family Medicine 05/19/18 Entry Level Account Representative Relationship Specialty Start Date End Date Deirdre Quiñones MD [address] [facility] [place] [address] PCP - General Family Medicine 05/19/18 Entry Level Account Representative Relationship Specialty Start Date End Date Deidrre Quiñones MD [address] [facility] [place] [address] PCP - General Family Medicine 05/19/18 Entry Level Account Representative Relationship Specialty Start Date End Date Deirdre Quiñones MD [address] [facility] [place] [address] PCP - General Family Medicine 05/19/18 Entry Level Account Representative Relationship Specialty Start Date End Date Deirdre Quiñones MD [address] [facility] [place] [address] PCP - General Family Medicine 05/19/18 Entry Level Account Representative Relationship Specialty Start Date End Date Deirdre Quiñones MD [address] [facility] [place] [address] PCP - General Family Medicine 05/19/18 Entry Level Account Representative Relationship Specialty Start Date End Date Deirdre Quiñones MD [address] [facility] [place] [address] PCP - General Family Medicine 05/19/18 Entry Level Account Representative Relationship Specialty Start Date End Date Deirdre Quiñones MD [address] [facility] [place] [address] PCP - General Family Medicine 05/19/18 Entry Level Account Representative Relationship Specialty Start Date End Date Deirdre Quiñones MD [address] [place] [address] PCP - General Family Medicine 05/19/18 Entry Level Account Representative Relationship Specialty Start Date End Date Deirdre Quiñones MD [address] [facility] [place] [address] PCP - General Family Medicine 05/19/18 Entry Level Account Representative Relationship Specialty Start Date End Date Deirdre Quiñones MD [address] [place] [address] PCP - General Family Medicine 05/19/18 Entry Level Account Representative Relationship Specialty Start Date End Date Deirdre Quiñones MD [address] [place] [address] PCP - General Family Medicine 05/19/18 Entry Level Account Representative Relationship Specialty Start Date End Date Deirdre Quiñones MD [address] [place] [address] PCP - General Family Medicine 05/19/18 Entry Level Account Representative Relationship Specialty Start Date End Date Deirdre Quiñones MD [address] [place] [address] PCP - General Family Medicine 05/19/18 Team Status: Active Member Role Status Dates Dr. Jeremy Rios MD Family Provider Active Dr. Deirdre Quiñones MD Primary Care Provider Active Team Status: Inactive Member Role Status Dates Dr. Deirdre Quiñones MD Primary Care Provider Active Dr. Say Martínez MD Attending Provider, Emergency Provider Active Team Status: Inactive Member Role Status Dates Dr. Deirdre Quiñones MD Primary Care Provider Active Dr. Thiago Jarvis , DO Emergency Provider Active Entry Level Account Representative Relationship Specialty Start Date End Date Deirdre Quiñones MD [address] [place] [address] PCP - General Family Medicine 05/19/18 Team Status: Inactive Member Role Status Dates Dr. Deirdre Quiñones MD Primary Care Provider, Referr ing Provider Active Dr. Viet Altamirano , DO Attending Provider Active Team Status: Inactive Member Role Status Dates Dr. Deirdre Quiñones MD Primary Care Provider Active Dr. Thiago Jarvis , DO Attending Provider, Emergency P aida Active Team Status: Inactive Member Role Status Dates Dr. Deirdre Quiñones MD Primary Care Provider Active Dr. Goldy Lockwood , DO Emergency Provider Active Entry Level Account Representative Relationship Specialty Start Date End Date Deirdre Quiñones MD [address] [place] [address] PCP - General Family Medicine 05/19/18 Entry Level Account Representative Relationship Specialty Start Date End Date Deirdre Quiñones MD [address] [place] [address] PCP - General Family Medicine 05/19/18 Entry Level Account Representative Relationship Specialty Start Date End Date Deirdre Quiñones MD [address] [place] [address] PCP - General Family Medicine 05/19/18 Entry Level Account Representative Relationship Specialty Start Date End Date Deirdre Quiñones MD [address] [place] [address] PCP - General Family Medicine 05/19/18 Entry Level Account Representative Relationship Specialty Start Date End Date Deirdre Quiñones MD [address] [place] [address] PCP - General Family Medicine 05/19/18 Entry Level Account Representative Relationship Specialty Start Date End Date Deirdre Quiñones MD [address] [place] [address] PCP - General Family Medicine 05/19/18 Entry Level Account Representative Relationship Specialty Start Date End Date Deirdre Quiñones MD [address] [place] [address] PCP - General Family Medicine 05/19/18 Entry Level Account Representative Relationship Specialty Start Date End Date Deirdre Quiñones MD [address] [place] [address] PCP - General Family Medicine 05/19/18 Entry Level Account Representative Relationship Specialty Start Date End Date Deirdre Quiñones MD [address] [place] [address] PCP - General Family Medicine 05/19/18 Entry Level Account Representative Relationship Specialty Start Date End Date Deirdre Quiñones MD [address] [place] [address] PCP - General Family Medicine 05/19/18 Entry Level Account Representative Relationship Specialty Start Date End Date Deirdre Quiñones MD [address] [place] [address] PCP - General Family Medicine 05/19/18 Entry Level Account Representative Relationship Specialty Start Date End Date Deirdre Quiñones MD [address] [place] [address] PCP - General Family Medicine 05/19/18 Silvia Vazquez APRN.CNP [address] [place] [address] Director Index Family Medicine 06/14/24 Entry Level Account Representative Relationship Specialty Start Date End Date Deirdre Quiñones MD [address] [place] [address] PCP - General Family Medicine 05/19/18 Silvia Vazquez APRN.MEDICAL AFFAIRS LEADER [address] [place] [address] Director Index Family Medicine 06/14/24 Jay Tran APRN.MEDICAL AFFAIRS LEADER [address] [place] [address] Director Index Family Medicine 06/23/24 Entry Level Account Representative Relationship Specialty Start Date End Date Deirdre Quiñones MD [address] [place] [address] PCP - General Family Medicine 05/19/18 Silvia Vazquez APRN.MEDICAL AFFAIRS LEADER [address] [place] [address] Director Index Family Medicine 06/14/24 Jay Tran APRN.MEDICAL AFFAIRS LEADER [address] [place] [address] Director Index Family Medicine 06/23/24 Entry Level Account Representative Relationship Specialty Start Date End Date Deirdre Quiñones MD [address] [place] [address] PCP - General Family Medicine 05/19/18 Silvia Vazquez APRN.MEDICAL AFFAIRS LEADER [address] [place] [address] Director Index Family Medicine 06/14/24 Jay Tran APRN.MEDICAL AFFAIRS LEADER [address] [facility] [place] [address] Director Index Family [facility] 06/23/24 Denise Edward, devops solutions architectOre Miner 09/07/24 Entry Level Account Representative Relationship Specialty Start Date End Date Deirdre Quiñones MD [address] [facility] [place] [address] PCP - General Family Medicine 05/19/18 Silvia Vazquez APRN.MEDICAL AFFAIRS LEADER [address] [facility] [place] [address] Director Index Family Medicine 06/14/24 Jay Tran APRN.MEDICAL AFFAIRS LEADER [address] [facility] [place] [address] Director Index [facility] 06/23/24 Denise Edward, devops solutions architectOre Miner 09/07/24 Entry Level Account Representative Relationship Specialty Start Date End Date Deirdre Quiñones MD [address] [facility] [place] [address] PCP - General Family Medicine 05/19/18 Silvia Vazquez MANAGING PARTNER.MEDICAL AFFAIRS LEADER [address] [facility] [place] [address] Director Index Family Medicine 06/14/24 Jay Tran APRN.MEDICAL AFFAIRS LEADER [address] [facility] [place] [address] Director Index Family Medicine 06/23/24 Denise Edward, devops solutions architectOre Miner 09/07/24 Entry Level Account Representative Relationship Specialty Start Date End Date Deirdre Quiñones MD [address] [facility] [place] [address] PCP - General Family Medicine 05/19/18 Silvia Vazquez APRN.MEDICAL AFFAIRS LEADER [address] [facility] [place] [address] Director Index Family Medicine 06/14/24 Jay Tran APRN.MEDICAL AFFAIRS LEADER [address] [facility] [place] [address] Director Index Family Medicine 06/23/24 Denise Edward, devops solutions architectOre Miner 09/07/24 Entry Level Account Representative Relationship Specialty Start Date End Date Deirdre Quiñones MD [address] [facility] [place] [address] PCP - General Family Medicine 05/19/18 Silvia Vazquez APRN.MEDICAL AFFAIRS LEADER [address] [facility] [place] [address] Director Index Family Medicine 06/14/24 Jay Tran APRN.MEDICAL AFFAIRS LEADER [address] [facility] [place] [address] Director Index Family [facility] 06/23/24 Denise Edward devops solutions architectOre Miner 09/07/24 Entry Level Account Representative Relationship Specialty Start Date End Date Deirdre Quiñones MD [address] [facility] [place] [address] PCP - General Family Medicine 05/19/18 Silvia Vazquez APRN.MEDICAL AFFAIRS LEADER [address] [facility] [place] [address] Director Index Family Medicine 06/14/24 Jay Trna APRN.MEDICAL AFFAIRS LEADER [address] [facility] [place] [address] Director Index Family Medicine 06/23/24 Denise Edward, devops solutions architectOre Miner 09/07/24 Entry Level Account Representative Relationship Specialty Start Date End Date Deirdre Quiñones MD [address] [facility] [place] [address] PCP - General Family Medicine 05/19/18 Silvia Vazquez APRN.MEDICAL AFFAIRS LEADER [address] [facility] [place] [address] Director Index Family Medicine 06/14/24 Jay Tran APRN.MEDICAL AFFAIRS LEADER [address] [place] [address] Director Index Family [facility] 06/23/24 Denise Edward devops solutions architectOre Miner 09/07/24 Entry Level Account Representative Relationship Specialty Start Date End Date Deirdre Quiñones MD [address] [place] [address] PCP - General Family Medicine 05/19/18 Silvia Vazquez APRN.MEDICAL AFFAIRS LEADER [address] [facility] [place] [address] Director Index Family Medicine 06/14/24 Jay Tran APRN.MEDICAL AFFAIRS LEADER [address] [facility] [address] Director Index Family Medicine 06/23/24 Denise Edward, devops solutions architectOre Miner 09/07/24 Entry Level Account Representative Relationship Specialty Start Date End Date Deirdre Quiñones MD [address] [facility] [place] [address] PCP - General Family Medicine 05/19/18 Silvia Vazquez APRN.MEDICAL AFFAIRS LEADER [address] [facility] [place] [address] Director Index Family Medicine 06/14/24 Jay Tran APRN.MEDICAL AFFAIRS LEADER [address] [facility] [place] [address] Director Index Family Medicine 06/23/24 Denise Edward, devops solutions architectOre Miner 09/07/24 Entry Level Account Representative Relationship Specialty Start Date End Date Deirdre Quiñones MD [address] [place] [address] PCP - General Family Medicine 05/19/18 Jay Tran APRN.MEDICAL AFFAIRS LEADER [address] [place] [address] Director Index Family Medicine 06/23/24 Denise Edward devops solutions architectOre Miner 09/07/24 Entry Level Account Representative Relationship Specialty Start Date End Date Deirdre Quiñones MD [address] [facility] [place] [address] PCP - General Family Medicine 05/19/18 Jay Tran MANAGING PARTNER.MEDICAL AFFAIRS LEADER [address] [facility] [address] Director Index Family Medicine 06/23/24 Denise Edward devops solutions architectOre Miner 09/07/24 Entry Level Account Representative Relationship Specialty Start Date End Date Deirdre Quiñones MD [address] [facility] [place] [address] PCP - General Family Medicine 05/19/18 Jay Tran MANAGING PARTNER.MEDICAL AFFAIRS LEADER [address] [facility] [place] [address] Director Index Family Medicine 06/23/24 Denise Edward, devops solutions architectOre Miner 09/07/24 Entry Level Account Representative Relationship Specialty Start Date End Date Deirdre Quiñones MD [address] [facility] [place] [address] PCP - General Family Medicine 05/19/18 Jay Tran APRN.MEDICAL AFFAIRS LEADER [address] [place] [address] [facility] 06/23/24 Denise Edward devops solutions architectOre Miner 09/07/24 Entry Level Account Representative Relationship Specialty Start Date End Date Deirdre Quiñones MD [address] [facility] [place] [address] PCP - General Family Medicine 05/19/18 Jay Tran APRN.MEDICAL AFFAIRS LEADER [address] [facility] [place] [address] [facility] 06/23/24 Entry Level Account Representative Relationship Specialty Start Date End Date Deirdre Quiñones MD [address] [facility] [place] [address] PCP - General Family Medicine 05/19/18 Jay Tran APRN.MEDICAL AFFAIRS LEADER [address] [facility] [address] [facility] 06/23/24 Goals (unrecognized section and content) Goals may be documented in a n alternate sectionGoals may be documented in an alternate section FOR RECORDS PERTAINING TO PATIENTS WHO ARE OR HAVE BEEN ENROLLED IN A CHEMICAL DEPENDENCY/SUBSTANCEABUSE PROGRAM, SOME INFORMATION MAY BE OMITTED. This clinical summary was aggregated from multiple sources. Caution should be exercised in using it in the provision of clinical care. This summary normalizes information from multiple sources, and as a consequence, information in this document may materially change the coding, format and clinical context of patient data. In addition, data may be omitted in some cases. CLINICAL DECISIONS SHOULD BE BASED ON THE PRIMARY CLINICAL RECORDS. [employer] [facility]. provides no warranty or guarantee of the accuracy or completeness of information in this document.
[2025-06-18 13:35] LABS: Troponin T High Sensitivity 284 ng/L (<=14)
--- OUTSIDE RECORDS SUMMARY | 2025-06-18 13:37 | XMS RPT_ITS | CCD ---
Author Organization [facility] CliniSyva Care Team Providers Care Barrel Bander Name Role Phone Deirdre Quiñones MD Primary [...] Deirdre Quiñones MD Primary Care Provider Tanngenesis DEBRIDGING MACHINE OPERATOR.Silvia GALVAN Unavailable Saravanan DEBRIDGING MACHINE OPERATOR.Jay GLAVAN Unavailable Denise Edward RN Unavailable Unavailabl e Tannhof DEBRIDGING MACHINE OPERATOR.Silvia GALVAN Unavailable Unavail able Tannhof DEBRIDGING MACHINE OPERATOR.Silvia GALVAN Unavailable SILVIA VAZQUEZ Referring UnavailDEIRDRE Lin Primary Care Unavailable SILVIA VAZQUEZ Attending UnavailDEIRDRE Lin Primary Care Unavailable DEIRDRE QUIÑONES Primary Care Unavailable DEIRDRE QUIÑONES Referring Unavailable SILVIA VAZQUEZ Attending UnavailDEIRDRE Lin Primary Care Unavailable Allergies Allergy Classification Reported Allergen(s) Allergy Type Date of Onset Reaction(s) Facility (20 sources) Acetaminophen / HYDROcodone; Translations: [HYDROCODONE-ACET AMINOPHEN] Drug Allergy 04-20-20 05 GI [facility] (20 sources) Codeine; Translations: [CODEINE] Drug Allergy 06-14-20 05 Intolerance [facility] Work Phone: (20 sources) metFORMIN; Translations: [METFORMIN] Drug Allergy 08-23-19 16 [facility] (20 sources) Palm Oil; Translations: [PALM OIL] Drug Allergy 08-20-19 19 [facility] (15 sources) Penicillins; Translations: [PENICILLINS] Drug Intolerance 04-20-20 05 [facility] (20 sources) quinapril; Translations: [QUINAPRIL HCL] Drug Allergy 08-01-19 07 Other: See [facility] (10 sources) Salicylic Acid; Translations: [SALICYLATES] Drug Allergy 04-20-20 05 [facility] (20 sources) Bees; Translations: [BEES] Propensity to adverse reactions 09-08-19 07 [facility] (20 sources) Doxycycline; Translations: [DOXYCYCLINE] Drug Allergy 11-24-19 22 [facility] Work Phone: (20 sources) Penicillins Drug Intolerance 04-20-20 05 [facility] (20 sources) Salicylate product Drug Intolerance 04-20-20 05 [facility] (2 sources) Aspirin Drug Allergy 02-23-20 23 Other [facility] (2 sources) Penicillins Allergy to substance 02-23-20 [facility] (1 source) Aspirin Drug Allergy 02-23-20 23 [facility] (1 source) Codeine Drug Allergy 02-23-20 23 [facility] (1 source) Penicillins Drug allergy (disorder) 02-23-20 23 [facility] (13 sources) Penicillins Drug Intolerance 04-20-20 05 [facility] Medications Current Medications Medication Drug Class(es) [...] be given per day (FROM ALL SOURCES) [id number] 200 actuat albuterol 0.09 mg/actuat metered dose [...] on above: Take 1 capsule by [facility] twice daily for 10 days. clindamycin 300 mg oral capsule (20 sources) Lincosamide Antibacterial Start: 07-23-19 24 take 1 capsule by mouth four times daily clindamycin (CLEOCIN) 300 mg capsule Take 1 capsule by mouth four times daily. 40 capsule 07/23/2023 Active Comment on above: Take 1 capsule by [facility] four times daily. doxycycline hyclate 100 mg oral tablet (2 sources) Tetracycline-class Drug Start: 09-27-19 End: 10-07-19 22 take 1 tablet by mouth twice daily doxycycline (VIBRA-TABS) 100 mg tablet Indications: Tick bite, unspecified site, initial encounter Take 1 tablet by mouth twice daily for 10 days. 20 tablet 0 09/26/2021 10/06/2021 Active Comment on above: Take 1 tablet by [facility] twice daily for 10 days. famotidine 20 mg oral tablet (20 sources) Histamine-2 Receptor Antagonist Start: 08-20-19 19 take 1 tablet by mouth every twenty-four hours as needed famotidine (PEPCID) 20 mg tablet Take 1 tablet by mouth at bedtime as needed. 08/20/2018 Active Comment on above: Take 1 tablet by [facility] at bedtime as needed. FLUoxetine 10 mg oral capsule (20 sources) Serotonin Reuptake Inhibitor Start: 03-21-20 End: 04-24-20 24 take 1 capsule by mouth once FLUoxetine (PROZAC) 10 mg capsule Indications: Anxiety state Take 1 capsule by mouth every afternoon. 90 capsule 3 04/24/2024 Active Comment on above: Take 1 capsule by [facility] once daily. TAKE 1 CAPSULE BY [facility] EVERY DAY fluticasone propionate 0.05 mg/actuat metered [...] (FLONASE) 50 mcg/actuation nasal spray Use 1 Guin in each nostril once daily as needed. 0 11/16/2021 Discontinued Comment on above: Use 1 Guin in each nostril once daily as needed. [...] Comment on above: [facility] Inhalational Spacing Device (1 source) [...] on above: Take 2 tablets by [facility] once daily for 5 days. Take [...] Comment on above: Take 1 tablet by [facility] once daily. traMADol hydrochloride 50 mg oral [...] on above: TAKE 2 TABLETS BY [facility] EVERY DAY WITH BREAKFAST tiZANidine 4 mg [...] Test Name Value Interpretation Reference Range Facility [facility] 05-03-2025 [facility] Telephone (FAMPWS) SHEREE CHAVEZ ([id number]) 1945 F Date Time Provider Department 05/03/25 DEIRDRE QUIÑONES [facility] During your visit today, we recorded [...] 2 COMPREHENSIVE METABOLIC PANEL [SQCMP] Order #: [id number] FUTURE HEMOGLOBIN A1C [[id number]] Order #: [id number] FUTURE LIPID PANEL, FASTING [SQLIPB] Order #: [id number] FUTURE COMPLETE BLOOD COUNT [SQCBC] Order #: [id number] FUTURE ALBUMIN/CREATININE RATIO, URINE [SQUACR] Order #: [id number] FUTURE THYROID STIMULATING HORMONE [SQTSH] Order #: [id number] FUTURE Prescriptions as of 05/04/2025 - OZEMPIC [...] lo*05/11/2021 Intracrania (more content not included)... Normal [facility] CNPNon 12-01-2024 CNPN Telephone (INTMWS) SHEREE CHAVEZ ([id number]) 1945 F Date Time Provider Department 12/01/24 DEIRDRE QUIÑONES INTMWS During your visit today, we recorded the following information about you: Lalita Mario LPN 12/01/2024 10:30 AM Signed Electronic PA rec'd and completed for ozempic ANNY. This was completed and approved. Prior authorization approved Payer: [employer] Part D [phone] Note from payer: Request Reference Number: [id number]. OZEMPIC INJ 2MG/3ML is approved through 07/07/2025. Your patient may now fill this prescription and it will be covered. Approval Details Authorization number: [id number] Authorized from December 01, 2024 to July 07, 2025 Electronic appeal: Not supported View History Notes Time User Attachment Attachment received from payer. 12/01/2024 8:31 AM [facility] Document Medication Being Authorized OZEMPIC 0.25 mg or 0.5 mg (2 mg/3 mL) pen Inject 0.5 mg subcutaneously one time a week. Dispense: 3 mL Refills: 2 ANNY Start: 12/01/2024 End: 03/01/2025 Class: Normal Diagnoses: Type 2 diabetes mellitus without complication, without long-term current use of insulin (HCC) This order has been released to its destination. To be filled at: e- [facility]/pharmacy [place][id number] [place] [address] - [address] [phone] Pt notified via my chart. Allergies As [...] Hypothyroidism [ (more content not included)... Normal [facility] Girma 10-14-2024 MANDYN Telephone (PHARMN) SHEREE CHAVEZ ([id number]) 1945 F Date Time Provider Department 10/14/24 [...] to contact the patient. Patient was sent [employer] message. If the patient returns a call, [...] dose Date Reviewed: 09/23/2024 Reviewed by: Odalis Valention LPN - Fully Assessed Reason for Visit: [...] Encounter Status:Closed by NUHA JOHNSTON on 11/11/24 [facility] CNOVon 09-23-2024 CNOV Office Visit (FAMPWS ) SHEREE CHAVEZ ([id number]) 1945 F Date Time Provider Department 09/23/24 9:20 AM SILVIA VAZQUEZ During your visit today, we recorded the following information about you: Pulse Respiration Blood pressure Weight 85/minute 16/minute 110/70 76.4 kg Silvia Vazquez APRN.CHEF KITCHEN MANAGER 09/23/2024 10:14 AM Signed This is a [...] Mother Osteoporosis (more content not included)... Normal [facility] Comprehensive metabolic 2000 panelon 09-21-2024 Albumin [Mass/Vol] 4.0 g/dL Normal 3.9-4.9 [facility] Comment on above: Order Comment: Speci men Type: BLOOD SPECIMENOrdering Facility: [facility] Address: [facility] [place] [address] Performed By: #### 2 4323-8 ####[facility] LABCLIA [id number] [place] [address] [place] ALP [Catalytic activity/Vol] 27 U/L Low 34-123 [facility] Comment on above: Order Comment: Speci men Type: BLOOD SPECIMENOrdering Facility: [facility] Address: [address] [place] [address] Performed By: #### 2 4323-8 ####[facility] LABCLIA [id number] [place] [id number] [place] ALT [Catalytic activity/Vol] 21 U/L Normal 7-38 [facility] Comment on above: Order Comment: Speci men Type: BLOOD SPECIMENOrdering Facility: [facility] Address: [address] [place] [address] Performed By: #### 2 4323-8 ####[facility] LABCLIA [id number] [address] [address] [place] Anion gap [Moles/Vol] 11 mmol/L Normal 8-15 [facility] Comment on above: Order Comment: Speci men Type: BLOOD SPECIMENOrdering Facility: [facility] Address: [address] [place] [address] Performed By: #### 2 4323-8 ####[facility] LABCLIA [id number] [address] [address] [place] AST [Catalytic activity/Vol] 22 U/L Normal 13-35 [facility] Comment on above: Order Comment: Speci men Type: BLOOD SPECIMENOrdering Facility: [facility] Address: [address] [place] [address] Performed By: #### 2 4323-8 ####[facility] LABCLIA [id number] [facility] [place] [id number] [place] Bilirubin [Mass/Vol] 0.4 mg/dL Normal 0.2-1.3 [facility] Comment on above: Order Comment: Speci men Type: BLOOD SPECIMENOrdering Facility: [facility] Address: [address] [place] [address] Performed By: #### 2 4323-8 ####[facility] LABCLIA [id number] [facility] [place] [address] [place] Calcium [Mass/Vol] 10.1 mg/dL Normal 8.5-10.2 [facility] Comment on above: Order Comment: Speci men Type: BLOOD SPECIMENOrdering Facility: [facility] Address: [address] [place] [address] Performed By: #### 2 4323-8 ####[facility] LABCLIA [id number] [place] [id number] [place] Chloride [Moles/Vol] 99 mmol/L Normal 98-107 [facility] Comment on above: Order Comment: Speci men Type: BLOOD SPECIMENOrdering Facility: [facility] Address: [address] [place] [address] Performed By: #### 2 4323-8 ####[facility] LABCLIA [id number] [facility] [place] [id number] [place] CO2 [Moles/Vol] 24 mmol/L Normal 22-30 [facility] Comment on above: Order Comment: Speci men Type: BLOOD SPECIMENOrdering Facility: [facility] Address: [address] [place], [place] [address] Performed By: #### 2 4323-8 ####[facility] LABIA [id number] [place] [id number] [place] [facility] Creatinine [Mass/Vol] 0.73 mg/dL Normal 0.58-0.96 [facility] Comment on above: Order Comment: Speci men Type: BLOOD SPECIMENOrdering Facility: [facility] Address: [address] [place] [address] Performed By: #### 2 4323-8 ####[facility] LABIA [id number] [place] [address] [place] Creatinine and Glomerular filtration rate.predicted panel (S/P/Bld) 83 mL/min/1.73m??? Normal >=60 [facility] Comment on above: Order Comment: Speci men Type: BLOOD SPECIMENOrdering Facility: [facility] Address: [address] [place] [address] Result Comment: Martha mated Glomerular Filtration Rate [...] actual GFR. Performed By: #### 2 4323-8 ####[facility] LABIA [id number] [place] [id number] [place] Glucose [Mass/Vol] 227 mg/dL High 74-99 [facility] Comment on above: Order Comment: Speci men Type: BLOOD SPECIMENOrdering Facility: [facility] Address: [address] [place] [address] Result Comment: The [place] Diabetes Association (ADA) provides guidance for cutoff [...] Standards of Medical Care in Diabetes 2016, [place] Diabetes Association. Diabetes Care. 2016.39(Suppl 1). Performed By: #### 2 4323-8 ####[facility] LABCLIA [id number] [place] [address] [place] Potassium [Moles/Vol] 4.9 mmol/L Normal 3.7-5.1 [facility] Comment on above: Order Comment: Speci men Type: BLOOD SPECIMENOrdering Facility: [facility] Address: [address] [place] [address] Performed By: #### 2 4323-8 ####[facility] LABCLIA [id number] [place] [address] [place] Protein [Mass/Vol] 7.0 g/dL Normal 6.3-8.0 [facility] Comment on above: Order Comment: Speci men Type: BLOOD SPECIMENOrdering Facility: [facility] Address: [address] [place] [address] Performed By: #### 2 4323-8 ####[facility] LABCLIA [id number] [place] [id number] [place] Sodium [Moles/Vol] 134 mmol/L Low 136-144 [facility] Comment on above: Order Comment: Speci men Type: BLOOD SPECIMENOrdering Facility: [facility] Address: [address] [place] [address] Performed By: #### 2 4323-8 ####[facility] LABCLIA [id number] [facility] [place] [id number] [place] Urea nitrogen [Mass/Vol] 15 mg/dL Normal 7-21 [facility] Comment on above: Order Comment: Speci men Type: BLOOD SPECIMENOrdering Facility: [facility] Address: [address] [place] [address] Performed By: #### 2 4323-8 ####[facility] [id number] [place] [id number] [facility] [place] HbA1c (Bld)on 09-21-2024 Average glucose Estimated from glycated hemoglobin (Bld) [Mass/Vol] 223 mg/dL Normal [facility] Comment on above: Order Comment: José Miguel stanley Type: BLOOD SPECIMENOrdering Facility: [facility] Address: [address] [place] [address] Result Comment: eAG: (Estimated average glucose) is a calculated value from HgbA1c and is food service representative of the average blood glucose level in the last 2-3 month period. Performed By: #### 5 5454-3 ####[facility] [id number] [address] [place] HbA1c (Bld) [Mass fraction] 9.4 % High 4.3-5.6 [facility] Comment on above: Order Comment: José Miguel stanley Type: BLOOD SPECIMENOrdering Facility: [facility] Address: [address] [place] [address] Result Comment: Dimitrios ican Diabetes Association guidelines indicate that patients with HgbA1c in the range 5.7-6.4% are at increased risk for development of diabetes, and intervention by lifestyle modification may be beneficial. HgbA1c greater or equal to 6.5% is considered diagnostic of diabetes. Performed By: #### 5 5454-3 ####[facility] [id number] [place] [id number] [facility] [place] CNOVon 06-17-2024 CNOV Office Visit (FAMPWS ) SHEREE CHAVEZ ([id number]) 1945 F Date Time Provider Department 06/17/24 10:00 AM SILVIA VAZQUEZ During your visit today, we recorded the following information about you: Pulse Respiration Blood pressure Weight 87/minute 16/minute 100/70 78.6 kg Height 1.553 m Silvia Vazquez APRN.CHEF KITCHEN MANAGER 06/17/2024 3:10 PM Signed Sheree Chavez is [...] Vicodin [Hydr (more content not included)... Normal [facility] CBC W Auto Differential pane l (Bld)on 06-16-2024 Basophils (Bld) [#/Vol] 0.14 10*3/uL High <0.11 [facility] Comment on above: Order Comment: Speci men Type: BLOOD SPECIMENOrdering Facility: [facility] Address: [address] [place] [address] Performed By: #### 5 7021-8 ####[facility] LABIA [id number] [place] [address] [place] Basophils/100 WBC (Bld) 1.6 % Normal [facility] Comment on above: Order Comment: Speci men Type: BLOOD SPECIMENOrdering Facility: [facility] Address: [address] [place] [address] Performed By: #### 5 7021-8 ####[facility] LABIA [id number] [place] [address] [place] Differential cell count method Nom (Bld) Auto Normal [facility] Comment on above: Order Comment: Speci men Type: BLOOD SPECIMENOrdering Facility: [facility] Address: [address] [place] [address] Performed By: #### 5 7021-8 ####[facility] LABIA [id number] [place] [address] [place] Eosinophils (Bld) [#/Vol] 0.43 10*3/uL Normal <0.46 [facility] Comment on above: Order Comment: Speci men Type: BLOOD SPECIMENOrdering Facility: [facility] Address: [address] [place] [address] Performed By: #### 5 7021-8 ####[facility] LABCLIA [id number] [place] [address] [place] Eosinophils/100 WBC (Bld) 4.8 % Normal [facility] Comment on above: Order Comment: Speci men Type: BLOOD SPECIMENOrdering Facility: [facility] Address: [address] [place] [address] Performed By: #### 5 7021-8 ####[facility] LABCLIA [id number] [place] [address] [place] Erythrocyte distribution width (RBC) [Ratio] 11.7 % Normal 11.5-15.0 [facility] Comment on above: Order Comment: Speci men Type: BLOOD SPECIMENOrdering Facility: [facility] Address: [address] [place] [address] Performed By: #### 5 7021-8 ####[facility] LABIA [id number] [place] [address] [place] Hematocrit (Bld) [Volume fraction] 43.2 % Normal 36.0-46.0 [facility] Comment on above: Order Comment: Speci men Type: BLOOD SPECIMENOrdering Facility: [facility] Address: [address] [place] [address] Performed By: #### 5 7021-8 ####[facility] LABCLIA [id number] [place] [address] [place] Hemoglobin (Bld) [Mass/Vol] 13.8 g/dL Normal 11.5-15.5 [facility] Comment on above: Order Comment: Speci men Type: BLOOD SPECIMENOrdering Facility: [facility] Address: [address] [place] [address] Performed By: #### 5 7021-8 ####[facility] LABCLIA [id number] [place] [address] [place] Immature granulocytes (Bld) [#/Vol] 0.03 10*3/uL Normal <0.10 [facility] Comment on above: Order Comment: Speci men Type: BLOOD SPECIMENOrdering Facility: [facility] Address: [address] [place] [address] Performed By: #### 5 7021-8 ####[facility] LABCLIA [id number] [place] [address] [place] Immature granulocytes/100 WBC (Bld) 0.3 % Normal [facility] Comment on above: Order Comment: Speci men Type: BLOOD SPECIMENOrdering Facility: [facility] Address: [address] [place] [address] Performed By: #### 5 7021-8 ####[facility] LABCLIA [id number] [place] [address] [place] Lymphocytes (Bld) [#/Vol] 3.83 10*3/uL Normal 1.00-4.00 [facility] Comment on above: Order Comment: Speci men Type: BLOOD SPECIMENOrdering Facility: [facility] Address: [address] [place] [address] Performed By: #### 5 7021-8 ####[facility] LABCLIA [id number] [place] [address] [place] Lymphocytes/100 WBC (Bld) 43.0 % Normal [facility] Comment on above: Order Comment: Speci men Type: BLOOD SPECIMENOrdering Facility: [facility] Address: [address] [place] [address] Performed By: #### 5 7021-8 ####[facility] LABCLIA [id number] [place] [address] [place] MCH (RBC) [Entitic mass] 30.8 pg Normal 26.0-34.0 [facility] Comment on above: Order Comment: Speci men Type: BLOOD SPECIMENOrdering Facility: [facility] Address: [address] [place] [address] Performed By: #### 5 7021-8 ####[facility] LABCLIA [id number] [place] [address] [place] MCHC (RBC) [Mass/Vol] 31.9 g/dL Normal 30.5-36.0 [facility] Comment on above: Order Comment: Speci men Type: BLOOD SPECIMENOrdering Facility: [facility] Address: [address] [place] [address] Performed By: #### 5 7021-8 ####[facility] LABCLIA [id number] [place] [address] [place] MCV (RBC) [Entitic vol] 96.4 fL Normal 80.0-100.0 [facility] Comment on above: Order Comment: Speci men Type: BLOOD SPECIMENOrdering Facility: [facility] Address: [address] [place] [address] Performed By: #### 5 7021-8 ####[facility] LABIA [id number] [place] [address] [place] Monocytes (Bld) [#/Vol] 0.73 10*3/uL Normal <0.87 [facility] Comment on above: Order Comment: Speci men Type: BLOOD SPECIMENOrdering Facility: [facility] Address: [address] [place] [address] Performed By: #### 5 7021-8 ####[facility] LABCLIA [id number] [place] [address] [place] Monocytes/100 WBC (Bld) 8.2 % Normal [facility] Comment on above: Order Comment: Speci men Type: BLOOD SPECIMENOrdering Facility: [facility] Address: [address] [place] [address] Performed By: #### 5 7021-8 ####[facility] LABIA [id number] [place] [address] [place] Neutrophils (Bld) [#/Vol] 3.75 10*3/uL Normal 1.45-7.50 [facility] Comment on above: Order Comment: Speci men Type: BLOOD SPECIMENOrdering Facility: [facility] Address: [address] [place] [address] Performed By: #### 5 7021-8 ####[facility] LABCLIA [id number] [place] [address] [place] Neutrophils/100 WBC (Bld) 42.1 % Normal [facility] Comment on above: Order Comment: Speci men Type: BLOOD SPECIMENOrdering Facility: [facility] Address: [address] [place] [address] Performed By: #### 5 7021-8 ####[facility] LABCLIA [id number] [place] [address] [place] Nucleated RBC (Bld) [#/Vol] 10*3/uL Normal <0.01 [facility] Comment on above: Order Comment: Speci men Type: BLOOD SPECIMENOrdering Facility: [facility] Address: [address] [place] [address] Performed By: #### 5 7021-8 ####[facility] LABCLIA [id number] [place] [address] [place] Nucleated RBC/100 WBC (Bld) [Ratio] 0.0 /100 WBC Normal [facility] Comment on above: Order Comment: Speci men Type: BLOOD SPECIMENOrdering Facility: [facility] Address: [address] [place] [address] Performed By: #### 5 7021-8 ####[facility] LABCLIA [id number] [place] [address] [place] Platelet mean volume (Bld) [Entitic vol] 9.4 fL Normal 9.0-12.7 [facility] Comment on above: Order Comment: Speci men Type: BLOOD SPECIMENOrdering Facility: [facility] [facility] Address: [address] [place] [address] Performed By: #### 5 7021-8 ####[facility] LABCLIA [id number] [address] [address] [place] Platelets (Bld) [#/Vol] 284 10*3/uL Normal 150-400 [facility] Comment on above: Order Comment: Speci men Type: BLOOD SPECIMENOrdering Facility: [facility] Address: [address] [place] [address] Performed By: #### 5 7021-8 ####[facility] LABCLIA [id number] [place] [address] [place] RBC (Bld) [#/Vol] 4.48 10*6/uL Normal 3.90-5.20 [facility] Comment on above: Order Comment: Speci men Type: BLOOD SPECIMENOrdering Facility: [facility] Address: [address] [place] [address] Performed By: #### 5 7021-8 ####[facility] LABIA [id number] [place] [address] [place] WBC (Bld) [#/Vol] 8.91 10*3/uL Normal 3.70-11.00 [facility] Comment on above: Order Comment: Speci men Type: BLOOD SPECIMENOrdering Facility: [facility] Address: [address] [place] [address] Performed By: #### 5 7021-8 ####[facility] LABIA [id number] [place] [id number] [place] Comprehensive metabolic 2000 panelon 06-16-2024 Albumin [Mass/Vol] 4.2 g/dL Normal 3.9-4.9 [facility] Comment on above: Order Comment: Speci men Type: BLOOD SPECIMENOrdering Facility: [facility] Address: [address] [place] [address] Performed By: #### 2 4331-1, 25014-7, TSHRF ####[facility] LABCLIA [id number] [place] [id number] [place] ALP [Catalytic activity/Vol] 30 U/L Low 34-123 [facility] Comment on above: Order Comment: Speci men Type: BLOOD SPECIMENOrdering Facility: [facility] Address: [address] [place] [address] Performed By: #### 2 4331-1, 30738-9, TSHRF ####[facility] LABCLIA [id number] [place] [address] [place] ALT [Catalytic activity/Vol] 17 U/L Normal 7-38 [facility] Comment on above: Order Comment: Speci men Type: BLOOD SPECIMENOrdering Facility: [facility] Address: [address] [place] [address] Performed By: #### 2 4331-1, , TSHRF ####[facility] LABIA [id number] [place] [address] [place] Anion gap [Moles/Vol] 12 mmol/L Normal 8-15 [facility] Comment on above: Order Comment: Speci men Type: BLOOD SPECIMENOrdering Facility: [facility] Address: [address] [place] [address] Performed By: #### 2 4331-1, , TSHRF ####[facility] LABIA [id number] [place] [address] [place] AST [Catalytic activity/Vol] 17 U/L Normal 13-35 [facility] Comment on above: Order Comment: Speci men Type: BLOOD SPECIMENOrdering Facility: [facility] Address: [address] [place] [address] Performed By: #### 2 4331-1, 26876-7, TSHRF ####[facility] LABIA [id number] [place] [address] [place] Bilirubin [Mass/Vol] 0.3 mg/dL Normal 0.2-1.3 [facility] Comment on above: Order Comment: Speci men Type: BLOOD SPECIMENOrdering Facility: [facility] Address: [address] [place] [address] Performed By: #### 2 4331-1, , TSHRF ####[facility] LABCLIA [id number] [place] [address] [place] Calcium [Mass/Vol] 10.0 mg/dL Normal 8.5-10.2 [facility] Comment on above: Order Comment: Speci men Type: BLOOD SPECIMENOrdering Facility: [facility] Address: [address] [place] [address] Performed By: #### 2 4331-1, , TSHRF ####[facility] LABCLIA [id number] [place] [address] [place] Chloride [Moles/Vol] 99 mmol/L Normal 98-107 [facility] Comment on above: Order Comment: Speci men Type: BLOOD SPECIMENOrdering Facility: [facility] Address: [address] [place] [address] Performed By: #### 2 4331-1, , TSHRF ####[facility] LABCLIA [id number] [place] [address] [place] CO2 [Moles/Vol] 26 mmol/L Normal 22-30 [facility] Comment on above: Order Comment: Speci men Type: BLOOD SPECIMENOrdering Facility: [facility] Address: [address] [place] [address] Performed By: #### 2 4331-1, , TSHRF ####[facility] LABCLIA [id number] [place] [id number] [place] Creatinine [Mass/Vol] 1.02 mg/dL High 0.58-0.96 [facility] Comment on above: Order Comment: Speci men Type: BLOOD SPECIMENOrdering Facility: [facility] Address: [address] [place] [address] Performed By: #### 2 4331-1, 10769-1, [facility] ####[facility] LABIA [id number] [place] [address] [place] Creatinine and Glomerular filtration rate.predicted panel (S/P/Bld) 56 mL/min/1.73m??? Low >=60 [facility] Comment on above: Order Comment: José Miguel stanley Type: BLOOD SPECIMENOrdering Facility: [facility] Address: [address] [place] [address] Result Comment: Martha mated Glomerular Filtration Rate [...] actual GFR. Performed By: #### 2 4331-1, 26607-8, [facility] ####[facility] LABIA [id number] [place] [id number] [place] Glucose [Mass/Vol] 253 mg/dL High 74-99 [facility] Comment on above: Order Comment: José Miguel stanley Type: BLOOD SPECIMENOrdering Facility: [facility] Address: [address] [place] [address] Result Comment: The [place] Diabetes Association (ADA) provides guidance for cutoff [...] Standards of Medical Care in Diabetes 2016, [place] Diabetes Association. Diabetes Care. 2016.39(Suppl 1). Performed By: #### 2 4331-1, 10715-6, TSHRF ####[facility] LABCLIA [id number] [place] [address] [place] Potassium [Moles/Vol] 4.6 mmol/L Normal 3.7-5.1 [facility] Comment on above: Order Comment: Speci men Type: BLOOD SPECIMENOrdering Facility: [facility] Address: [address] [place] [address] Performed By: #### 2 4331-1, , TSHRF ####[facility] LABIA [id number] [place] [address] [place] Protein [Mass/Vol] 7.3 g/dL Normal 6.3-8.0 [facility] Comment on above: Order Comment: Speci men Type: BLOOD SPECIMENOrdering Facility: [facility] Address: [address] [place] [address] Performed By: #### 2 4331-1, , TSHRF ####[facility] LABIA [id number] [place] [address] [place] Sodium [Moles/Vol] 137 mmol/L Normal 136-144 [facility] Comment on above: Order Comment: Speci men Type: BLOOD SPECIMENOrdering Facility: [facility] Address: [address] [place] [address] Performed By: #### 2 4331-1, , TSHRF ####[facility] LABIA [id number] [place] [id number] [place] Urea nitrogen [Mass/Vol] 19 mg/dL Normal 7-21 [facility] Comment on above: Order Comment: Speci men Type: BLOOD SPECIMENOrdering Facility: [facility] Address: [address] [place] [id number] Performed By: #### 2 4331-1, 55020-8, TSHRF ####[facility] LABCLIA [id number] [address] [place] HbA1c (Bld)on 06-16-2024 Average glucose Estimated from glycated hemoglobin (Bld) [Mass/Vol] 280 mg/dL Normal [facility] Comment on above: Order Comment: José Miguel stanley Type: BLOOD SPECIMENOrdering Facility: [facility] Address: [address] [place] [address] Result Comment: eAG: (Estimated average glucose) is a calculated value from HgbA1c and is food service representative of the average blood glucose level in the last 2-3 month period. Performed By: #### 5 5454-3 ####[facility] LABIA [id number] [address] STATES OF [facility] HbA1c (Bld) [Mass fraction] 11.4 % High 4.3-5.6 [facility] Comment on above: Order Comment: José Miguel stanley Type: BLOOD SPECIMENOrdering Facility: [facility] Address: [address] [place] [address] Result Comment: [place] Diabetes Association guidelines indicate that patients with HgbA1c in the range 5.7-6.4% are at increased risk for development of diabetes, and intervention by lifestyle modification may be beneficial. HgbA1c greater or equal to 6.5% is considered diagnostic of diabetes. Performed By: #### 5 5454-3 ####[facility] LABIA [id number] [place] [address] [place] Lipid 1996 panelon 4 Cholesterol [Mass/Vol] 238 mg/dL High <200 [facility] Comment on above: Order Comment: José Miguel stanley Type: BLOOD SPECIMENOrdering Facility: [facility] Address: [address] [place] [address] Result Comment: <200 mg/dL, Desirable 200-239 mg/dL, Borderline high >239 mg/dL, High Performed By: #### 2 4331-1, 18530-9, TSHRF ####[facility] LABCLIA [id number] [address] [place] Cholesterol in HDL [Mass/Vol] 39 mg/dL Low >39 [facility] Comment on above: Order Comment: Josii men Type: BLOOD SPECIMENOrdering Facility: [facility] Address: [address] [place] [address] Result Comment: 40-5 9 mg/dL, Acceptable >59 mg/dL, High: Negative risk factor for coronary heart disease <40 mg/dL, Low: Positive risk factor for coronary heart disease Performed By: #### 2 4331-1, 16272-1, TSHRF ####[facility] LABCLIA [id number] [address] STATES OF [facility] Cholesterol in LDL [Mass/Vol] 134 mg/dL High <100 [facility] Comment on above: Order Comment: José Miguel [facility] Type: BLOOD SPECIMENOrdering Facility: [facility] Address: [address] [place] [address] Result Comment: <100 mg/dL, Optimal 100-129 mg/dL, Near optimal/above optimal 130-159 mg/dL, Borderline high 160-189 mg/dL, High >189 mg/dL, Very high Secondary prevention optimal LDL Cholesterol levels are recommended to be < 70 mg/dL Performed By: #### 2 4331-1, 15200-3, TSHRF ####[facility] LABCLIA [id number] [address] OF [facility] Cholesterol in LDL/Cholesterol in HDL [Mass ratio] 3.44 {ratio} High <2.54 [facility] Comment on above: Order Comment: [facility]ibren[facility] Type: BLOOD SPECIMENOrdering Facility: [facility] Address: [address] [place] [address] Result Comment: Kosta amezquita: 1. National Cholesterol Education Program ATP III Guideline At-A-Glance Quick Desk Reference: National Heart, Lung, and Blood [place]. National Institutes of Health. 2001: NIH Publication No. 01-3305. 2. An International Atherosclerosis Society position paper: global recommendations for the management of dyslipidemia: executive summary, Atherosclerosis. 2014: 232(2):410-413. Performed By: #### 2 4331-1, 64578-1, TSHRF ####[facility] LABCLIA [id number] [place] [address] [place] Cholesterol in VLDL [Mass/Vol] 65 mg/dL High <30 [facility] Comment on above: Order Comment: Speci men Type: BLOOD SPECIMENOrdering Facility: [facility] Address: [address] [place] [address] Performed By: #### 2 4331-1, , TSHRF ####[facility] LABCLIA [id number] [place] [address] [place] Cholesterol non HDL [Mass/Vol] 199 mg/dL High <130 [facility] Comment on above: Order Comment: Josii men Type: BLOOD SPECIMENOrdering Facility: [facility] Address: [address] [place] [address] Result Comment: <130 mg/dL, Optimal 130-159 mg/dL, Near optimal/above optimal 160-189 mg/dL, Borderline high 190-219 mg/dL, High >219 mg/dL, Very high Secondary prevention optimal non HDL Cholesterol levels are recommended to be <100 mg/dL Performed By: #### 2 433-1, , TSHRF ####[facility] LABCLIA [id number] [place] [address] [place] Cholesterol.total/Ch olesterol in HDL [Mass ratio] 6.10 {ratio} High <5.10 [facility] Comment on above: Order Comment: Speci men Type: BLOOD SPECIMENOrdering Facility: [facility] Address: [address] [place] [address] Performed By: #### 2 4331-1, , TSHRF ####[facility] LABCLIA [id number] [place] [id number] [place] FASTING TIME 12 hrs Normal [facility] Comment on above: Order Comment: Speci men Type: BLOOD SPECIMENOrdering Facility: [facility] Address: [address] [place] [address] Performed By: #### 2 4331-1, 23459-8, TSHRF ####[facility] LABCLIA [id number] [place] [address] [place] Triglyceride [Mass/Vol] 323 mg/dL High <150 [facility] Comment on above: Order Comment: Speci men Type: BLOOD SPECIMENOrdering Facility: [facility] Address: [address] [place] [address] Result Comment: <150 mg/dL, Normal 150-199 mg/dL, Borderline high 200-499 mg/dL, High >499 mg/dL, Very high Performed By: #### 2 4331-1, 93090-3, TSHRF ####[facility] LABCLIA [id number] [place] [address] [place] TSH W/REFLEX FT4on 4 TSH Qn 4.010 m[IU]/L Normal 0.270-4.200 [facility] Comment on above: Order Comment: Speci men Type: BLOOD SPECIMENOrdering Facility: [facility] Address: [address] [place] [address] Performed By: #### 2 4331-1, 20407-5, TSHRF ####[facility] LABCLIA [id number] [place] [address] [place] XR RIBS/CHEST 3V AP RIB/OBLS /CXR LEFTon 04-22-2023 [facility] XR Ribs - left Views and Annmarie st PAon 04-22-2023 IMPRESSION: Acute nondisplaced fracture of the left anterolateral seventh rib. Alligator Hunter: YUMI Transcribe Date/Time: Apr 22 2023 12:33P Dictated by : KAMILLA WHEELER MD This examination was interpreted and the report reviewed and electronically signed by: KAMILLA WHEELER MD on Apr 22 2023 12:40PM [facility] DIVISION OF RADIOLOGY * * *Final Report* [...] seventh rib. DIVISION OF RADIOLOGY Provider, [facility] - 04/22/2023 * * *Final Report* [...] fracture of the left anterolateral seventh rib. Alligator Hunter: PSCB Transcribe Date/Time: Apr 22 2023 12:33P Dictated by : KAMILLA WHEELER MD This examination was interpreted and the report reviewed and electronically signed by: KAMILLA WHEELER MD on Apr 22 2023 12:40PM EST [facility] Radiology Study observation (narrative) [facility] XR Ribs - left Views and Annmarie st PAOrdered By: Ccf Provider on 04-22-2023 [facility] Emergency Department Summary on 02-23-2023 Emergency Department Summary [facility] Medical Records Department [address] [place] [address] Emergency Department Summary 02/22/23 MR#: [id number] Acct: [id number] Name: Sarah CHAVEZ Rep #: [id number] : 1945 77 From: Thiago Jarvis DO [...] Negative for Parasthesia or Loss of Funtion [facility] Medical History Diabetes History of trigger [...] of the (more content not included)... Normal [facility] HIP, UNI W/ Pelvis 2-3 Views on 02-23-2023 HIP, UNI W/ Pelvis 2-3 Views [facility] Imaging Services [address] [place] [address] HIP, UNI W/ Pelvis 2-3 Views MR#: [id number] Acct: [id number] Name: Sarah CHAVEZ Rep #: [id number] : 1945 F 77 From: Osbaldo Moreno DO PCP: Dr. Deirdre Quiñones MD Status: [facility] ER Study: HIP, UNI W/ Pelvis 2-3 Views Date of Exam: Exam# [id number] Ordering Dr: Thiago Jarvis DO INDICATION: Injury/Pain [...] Thiago Jarvis DO; Dr. Deirdre Quiñones MD Alligator Hunter: Signed Normal [facility] Emergency Department Summary on 11-22-2022 Emergency Department Summary [facility] Medical Records Department [address] [place] [address] Emergency Department Summary 11/22/22 MR#: [id number] Acct: [id number] Name: Sarah CHAVEZ Rep #: [id number] : 1945 77 From: Say Martínez MD [...] down the right leg to her foot. [facility] Medical History Diabetes History of trigger [...] sciatica, Spi (more content not included)... Normal [facility] XR Pelvis and Hip - right AP and Lateral frogon 11-22-2022 IMPRESSION: 1. Moderate arthritic changes in the right hip similar to previous study. Alligator Hunter: YUMI Transcribe Date/Time: Nov 22 2022 6:44P Dictated by : JEREMY IBARRA MD This examination was interpreted and the report reviewed and electronically signed by: JEREMY IBARRA MD on Nov 22 2022 6:46PM [facility] DIVISION OF RADIOLOGY * * *Final Report* [...] the right hip similar to previous study. Alligator Hunter: PSCB Transcribe Date/Time: Nov 22 2022 6:44P Dictated by : JEREMY IBARRA MD This examination was interpreted and the report reviewed and electronically signed by: JEREMY IBARRA MD on Nov 22 2022 6:46PM EST [facility] Radiology Study observation (narrative) [facility] XR Pelvis and Hip - right AP and Lateral frogOrdered By: Ccf Provider on 11-22-2022 [facility] Orthopedic Visit Reporton Orthopedic Visit Report [facility] [address] [place] [address] OFFICE VISIT Date of Service: 08/15/22 MR#: [id number] Acct: [id number] Name: Sarah CHAVEZ Rep #: [id number] : 1945 Provider: Dr. Abhishek moore DO Age/Sex: 76/F Location: [facility].MAYA Status: Signed Intake Vital Signs 08/13/22 10:25 [...] applicable) CC: Dr. Deirdre Quiñones MD Normal [facility] Spine Lumbar (Routine)on Spine Lumbar (Routine) [facility] Imaging Services [address] [place] [address] Spine Lumbar (Routine) MR#: [id number] Acct: [id number] Name: Sarah CHAVEZ Rep #: [id number] : 1945 F 76 From: Rolando Johnson PCP: Dr. Deirdre Quiñones MD Status: REG CLI Study: Spine Lumbar (Routine) Date of Exam: 08/11/22 Exam# [id number] Ordering Dr: Abhishek Kumar DO INDICATION: Back [...] 22:25 EST Reading Location ID and State: [address] [place] [address] Tel , Service support , CC: Dr. Abhishek Kumar DO; Dr. Deirdre Quiñones MD Alligator Hunter: Signed Normal [facility] Lumbar Spine 2 or 3 Viewson 07-23-2022 Lumbar Spine 2 or 3 Views [facility] Radiology [address] [place] [address] Lumbar Spine 2 or 3 Views MR#: [id number] Acct: [id number] Name: Sarah CHAVEZ Rep #: [id number] : 1945 F 76 From: Naresh Johnson PCP: Dr. Deirdre Quiñones MD Status: DEP AMB Study: Lumbar Spine 2 or 3 Views Date of Exam: Exam# [id number] Ordering Dr: Abhishek Kumar DO STUDY: X-RAY [...] 16:22 EST Reading Location ID and State: [facility] / [place] , Service support , CC: Dr. Abhishek Kumar DO; Dr. Deirdre Quiñones MD Alligator Hunter: Signed Normal [facility] Orthopedic Visit Reporton Orthopedic Visit Report [facility] [address] [place] [address] OFFICE VISIT Date of Service: 07/23/22 MR#: [id number] Acct: [id number] Name: Sarah CHAVEZ Rep #: [id number] : 1945 Provider: Dr. Abhishek moore DO Age/Sex: 76/F Location: [facility]YA Status: Signed Intake Vital Signs 05/11/21 09:37 [...] capsule ea PO 07/23/22 [History Confirmed 07/23/22] [facility] Medical History (Updated 07/23/22 @ [...] by me, Dr. Abhishek Kumar DO 07/23/22 3502. Sarah CHAVEZ is a 76 year old [...] unspecified 07/23/22 0943 Date Abhishek Kumar DO [facility] Signature: Date (if applicable) CC: Dr. Deirdre Quiñones, (more content not included)... Normal [facility] XR HIP BILATERAL 5V PEL/AP/L AT EACH HIPon 07-05-2022 IMPRESSION: 1. 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 2. Left hip unremarkable. 2. No fracture. Alligator Hunter: PagaTuAlquilerB Transcribe Date/Time: Jul 05 2022 6:54P Dictated by : MILTON MILLER MD This examination was interpreted and the report reviewed and electronically signed by: MILTON MILLER MD on Jul 05 2022 6:57PM [facility] DIVISION OF RADIOLOGY * * *Final Report* [...] consistent with chondrocalcinosis. DIVISION OF RADIOLOGY [facility] * * *Final Report* * [...] 2. Left hip unremarkable. 2. No fracture. Alligator Hunter: PSCB Transcribe Date/Time: Jul 05 2022 6:54P Dictated by : MILTON MILLER MD This examination was interpreted and the report reviewed and electronically signed by: MILTON MILLER MD on Jul 05 2022 6:57PM EST [facility] Radiology Study observation (narrative) [facility] XR HIP BILATERAL 5V PEL/AP/L AT EACH HIPOrdered By: Ccf Provider on 07-05-2022 [facility] XR Chest PA and Lateralon IMPRESSION: No acute radiographic abnormality. Alligator Hunter: PagaTuAlquilerB Transcribe Date/Time: Nov 23 2021 12:24P Dictated by : ANDREINA REYSE MD This examination was interpreted and the [...] spine IMPRESSION IMPRESSION: No acute radiographic abnormality. Alligator Hunter: PSCKate Transcribe Date/Time: Nov 23 2021 12:24P Dictated by : ANDREINA REYES MD This examination was interpreted and the report reviewed and electronically signed by: ANDREINA REYES MD on Nov 23 2021 12:25PM EST [facility] Radiology Study observation (narrative) [facility] XR Chest PA and LateralOrder ed By: Ccf Provider on 11-23-2021 [facility] ALBUMIN/CREAT RATIO RND URon 09-27-2021 Albumin DL <= 20 mg/L (U) [Mass/Vol] 36.6 mg/L [facility] Albumin/Creatinine (U) [Mass ratio] 86 mg/g High <30 mg/g [facility] Creatinine (U) [Mass/Vol] 42.8 mg/dL 20.0 - 300.0 mg/dL [facility] CBC W Auto Differential pane l (Bld)on 09-26-2021 Abs Immature Gran 0.04 k/uL <0.10 k/uL [facility] Basophils (Bld) [#/Vol] 0.15 10*3/uL High <0.11 k/uL [facility] Basophils/100 WBC (Bld) 1.4 % [facility] Differential cell count method Nom (Bld) Auto [facility] Eosinophils (Bld) [#/Vol] 0.62 10*3/uL High <0.46 k/uL [facility] Eosinophils/100 WBC (Bld) 5.6 % [facility] Erythrocyte distribution width (RBC) [Ratio] 11.9 % 11.5 - 15.0 % [facility] Hematocrit (Bld) [Volume fraction] 43.4 % 36.0 - 46.0 % [facility] Hemoglobin (Bld) [Mass/Vol] 14.0 g/dL 11.5 - 15.5 g/dL [facility] Immature Gran % 0.4 % [facility] Lymphocytes (Bld) [#/Vol] 4.75 10*3/uL High 1.00 - 4.00 k/uL [facility] Lymphocytes/100 WBC (Bld) 43.1 % [facility] MCH (RBC) [Entitic mass] 30.8 pg 26.0 - 34.0 pg [facility] MCHC (RBC) [Mass/Vol] 32.3 g/dL 30.5 - 36.0 g/dL [facility] MCV (RBC) [Entitic vol] 95.4 fL 80.0 - 100.0 fL [facility] Monocytes (Bld) [#/Vol] 0.87 10*3/uL High <0.87 k/uL [facility] Monocytes/100 WBC (Bld) 7.9 % [facility] Neutrophils (Bld) [#/Vol] 4.59 10*3/uL 1.45 - 7.50 k/uL [facility] Neutrophils/100 WBC (Bld) 41.6 % [facility] Nucleated RBC (Bld) [#/Vol] 10*3/uL <0.01 k/uL [facility] Nucleated RBC/100 WBC (Bld) [Ratio] 0.0 /100 WBC [facility] Platelet mean volume (Bld) [Entitic vol] 9.3 fL 9.0 - 12.7 fL [facility] Platelets (Bld) [#/Vol] 323 10*3/uL 150 - 400 k/uL [facility] RBC (Bld) [#/Vol] 4.55 10*6/uL 3.90 - 5.2 0 m/uL [facility] WBC (Bld) [#/Vol] 11.02 10*3/uL High 3.70 - 11 .00 k/uL [facility] Comprehensive metabolic 2000 panelon 09-26-2021 Albumin [Mass/Vol] 4.5 g/dL 3.9 - 4.9 g/dL [facility] ALP [Catalytic activity/Vol] 30 U/L Low 34 - 123 U/L [facility] ALT [Catalytic activity/Vol] 20 U/L 7 - 38 U/L [facility] Anion gap [Moles/Vol] 13 mmol/L 9 - 18 mmol/L [facility] AST [Catalytic activity/Vol] 24 U/L 13 - 35 U/L [facility] Bilirubin [Mass/Vol] 0.2 mg/dL 0.2 - 1 .3 mg/dL [facility] Calcium [Mass/Vol] 10.0 mg/dL 8.5 - 10. 2 mg/dL [facility] Chloride [Moles/Vol] 98 mmol/L 97 - 10 5 mmol/L [facility] CO2 [Moles/Vol] 24 mmol/L 22 - 30 mmol/L [facility] Creatinine [Mass/Vol] 0.68 mg/dL 0.58 - 0.96 mg/dL [facility] Estimated Glomerular Filtration Rate 90 mL/min/1.73m >=60 mL/min/1.73m [facility] Glucose [Mass/Vol] 179 mg/dL High 74 - 99 mg/dL [facility] Potassium [Moles/Vol] 4.6 mmol/L 3.7 - 5.1 mmol/L [facility] Protein [Mass/Vol] 7.2 g/dL 6.3 - 8.0 g/dL [facility] Sodium [Moles/Vol] 135 mmol/L Low 136 - 144 mmol/L [facility] Urea nitrogen [Mass/Vol] 17 mg/dL 7 - 21 mg/dL [facility] HGB A1Con 09-26-2021 Average glucose Estimated from glycated hemoglobin (Bld) [Mass/Vol] 220 mg/dL [facility] HbA1c (Bld) [Mass fraction] 9.3 % High 4.3 - 5.6 % [facility] LIPID PANEL, NONFASTINGon Cholesterol [Mass/Vol] 212 mg/dL High <200 mg/dL [facility] HDL Cholesterol, Nonfasting 46 mg/dL >39 mg/dL [facility] LDL Cholesterol, Nonfasting 105 mg/dL High <100 mg/dL [facility] LDL/HDL Ratio, Nonfasting 2.28 mg/dL <2.54 mg/dL [facility] Non HDL Cholesterol, Nonfasting 166 mg/dL High <130 mg/dL [facility] Total Chol/HDL Ratio, Nonfasting 4.61 mg/dL <5.10 mg/dL [facility] Triglycerides, Nonfasting 303 mg/dL High <150 mg/dL [facility] VLDL Cholesterol, Nonfasting 61 mg/dL High <30 mg/dL [facility] TSH BLDon 09-26-2021 TSH Qn 3.130 m[IU]/L 0.270 - 4.200 mIU/L [facility] CNOVon 07-18-2021 CNOV Office Visit (NEAGCL M) SHEREE CHAVEZ ([id number]) 1945 F Date Time Provider Department 07/18/21 10:30 AM DARRICK PIERRE NEAGCLM During your visit today, we recorded the following information about you: Temperature Pulse Blood pressure Weight 97.3 degrees 69/minute 118/80 80.7 kg Height 1.651 m Darrick Pierre MD 07/18/2021 11:27 AM Signed NEUROSURGERY FOLLOW UP OFFICE NOTE Dr. Darrick Pierre MD, [facility] Date of visit:July 18, 2021 Patient Name: Ms.Alma Darshan Chavez Date of : 1945 Current Age: [age] year old Sex: female MRN/E# [id number] Last Office Visit: June 08, 2021 Chief [...] (FLONASE) 50 mcg/actuation nasal spray Use 1 Guin in each nostril once daily as needed. [...] 90 ta (more content not included)... Normal [facility] CT BRAIN WO IVCONon 07-18-19 CT BRAIN [...] base and imaged soft tissues are unremarkable. Oracle Developer (topogram) images: No additional significant findings. IMPRESSION: Interval resolution of the previously noted parafalcine subdural hemorrhage and right frontal parietal subarachnoid hemorrhage. No new hemorrhage in the interval. Mild chronic microvascular ischemic change throughout the supratentorial white matter. Alligator Hunter: YUMI Transcribe Date/Time: Jul 18 2021 2:47P Dictated by : AUSTIN JOHNSTON MD This examination was interpreted and the report reviewed and electronically signed by: AUSTIN JOHNSTON MD on Jul 18 2021 2:56PM EST [id number] Normal [facility] CNOVon 06-08-2021 CNOV Office Visit (JAYDON ) SHEREE CHAVEZ ([id number]) 1945 F Date Time Provider Department 06/08/21 10:30 AM DARRICK PIERRE During your visit today, we recorded the following information about you: Temperature Pulse Blood pressure Weight 97.6 degrees 83/minute 100/62 80.7 kg Height 1.651 m Darrick Pierre MD 06/08/2021 11:57 AM Signed NEUROSURGERY FOLLOW UP OFFICE NOTE Dr. Darrick Pierre MD, [facility] Date of visit: June 08, 2021 Patient Name: Ms.Alma Darshan Chavez Date of : 1945 Current Age: [age] year old Sex: female MRN/E# [id number] Last Office Visit: May 25, 2021 Chief [...] (FLONASE) 50 mcg/actuation nasal spray Use 1 Guin in each nostril once daily as needed. [...] 10 mg (more content not included)... Normal [facility] CT BRAIN WO IVCONon 06-08-[address] [...] base and imaged soft tissues are unremarkable. Oracle Developer (topogram) images: No additional findings. IMPRESSION: 1. Interval decrease of trace subarachnoid hemorrhage within right frontal lobe. Interval decrease in trace parafalcine subdural hemorrhage. No CT evidence of new intracranial hemorrhage. No significant mass effect. 2. No CT evidence of acute cortical infarct. 3. Chronic small vessel ischemic white matter disease and diffuse cerebral volume loss. Alligator Hunter: [facility] Transcribe Date/Time: Jun 08 2021 1:15P Dictated by : LAMONTE COLINDRES MD This examination was interpreted and the report reviewed and electronically signed by: LAMONTE COLINDRES MD on Jun 08 2021 1:25PM EST [id number] Normal [facility] CNOVon 05-25-2021 CNOV Office Visit (NUAGAK ) SHEREE CHAVEZ ([id number]) 1945 F Date Time Provider Department 05/25/21 [...] Age: [age] year old Sex: female MRN/E# [id number] Last Office Visit: Hospital follow-up Chief Complaint: [...] (FLONASE) 50 mcg/actuation nasal spray Use 1 Guin in each nostril once daily as needed. [...] once d (more content not included)... Normal [facility] CT BRAIN WO IVCONon 05-25-[address] [...] the mastoid air cells are grossly clear. Oracle Developer (topogram) images: No additional significant findings. IMPRESSION: Decreased conspicuity hyperdense subdural hematoma associated with the interhemispheric falx, currently measuring approximately 2 mm in maximal thickness, previously approximately 4 mm. No definitive residual right frontal parietal convexity subdural hematoma. Trace right frontal parietal subarachnoid hemorrhage is less conspicuous. No new hemorrhage in the interval. Alligator Hunter: PSCB Transcribe Date/Time: May 25 2021 1:27P Dictated by : AUSTIN JOHNSTON MD This examination was interpreted and the report reviewed and electronically signed by: AUSTIN JOHNSTON MD on May 25 2021 1:37PM EST [id number] Normal [facility] Basic metabolic 2000 panelon 05-13-2021 Anion gap [Moles/Vol] 10 mmol/L Normal -18 [facility] Comment on above: Order Comment: Speci men Type: BLOOD SPECIMEN Performed By: #### 1 9123-9, 2777-, 51355-8 ####[facility] LABORATORYCLIA [id number] [place] [address] [place] Calcium [Mass/Vol] 8.9 mg/dL Normal 8.5-10.2 [facility] Comment on above: Order Comment: Speci men Type: BLOOD SPECIMEN Performed By: #### 1 9123-9, 27701-05, 69980-1 ####[facility]ATORYCLIA [id number] [place] [address] [place] Chloride [Moles/Vol] 102 mmol/L Normal 97-105 [facility] Comment on above: Order Comment: Speci men Type: BLOOD SPECIMEN Performed By: #### 1 9123-9, 27701-05, 91779-5 ####[facility]ORATORYCLIA [id number] [place] [address] [place] CO2 [Moles/Vol] 24 mmol/L Normal 22-30 [facility] Comment on above: Order Comment: Speci men Type: BLOOD SPECIMEN Performed By: #### 1 9123-9, 2777, 56969-1 ####[facility]ATORYCLIA [id number] [place] [address] [place] Creatinine [Mass/Vol] 0.78 mg/dL Normal 0.58-0.96 [facility] Comment on above: Order Comment: Speci [facility] Type: BLOOD SPECIMEN Performed By: #### 1 9123-9, 2777-1, 07360-4 ####[facility] LABORATORYCLIA [id number] [address] [place] GFR/1.73 sq M.predicted MDRD (S/P/Bld) [Vol rate/Area] mL/min/{1.73_m2} Normal [facility] Comment on above: Order Comment: Speci [...] GFR. Performed By: #### 1 9123-9, 2777-1, 55144-9 ####[facility] LABORATORYCLIA [id number] [place] [address] [place] Glucose [Mass/Vol] 167 mg/dL High 74-99 [facility] Comment on above: Order Comment: [facility] Type: BLOOD SPECIMEN Result Comment: The [place] Diabetes Association (ADA) provides guidance for cutoff [...] Standards of Medical Care in Diabetes 2016, [place] [employer] Association. Diabetes Care. 2016.39(Suppl 1). Performed By: #### 1 9123-9, 2777, 40300-0 ####[facility] LABORATORYCLIA [id number] [address] Potassium [Moles/Vol] 4.1 mmol/L Normal 3.7-5.1 [facility] Comment on above: Order Comment: Speci men Type: BLOOD SPECIMEN Performed By: #### 1 9123-9, 2777, 55924-9 ####[facility] LABORATORYCLIA [id number] [address] Sodium [Moles/Vol] 136 mmol/L Normal 136-144 [facility] Comment on above: Order Comment: Speci men Type: BLOOD SPECIMEN Performed By: #### 1 9123-9, 27701-05, ####[facility] LABORATORYCLIA [id number] [address] Urea nitrogen [Mass/Vol] 14 mg/dL Normal 7-21 [facility] Comment on above: Order Comment: Speci men Type: BLOOD SPECIMEN Performed By: #### 1 9123-9, 2777, ####[facility] LABORATORYCLIA [id number] [address] CALCIUM IONIZED Bon 05-13-20 21 Calcium.ionized (BldV) [Mass/Vol] 1.08 mmol/L Normal 1.08-1.30 [facility] Comment on above: Order Comment: Speci men Type: BLOOD SPECIMEN Performed By: #### I CA ####[facility] LABORATORYCLIA [id number] [address] Calcium.ionized adjusted to pH 7.4 (Bld) [Moles/Vol] 1.09 mmol/L Normal 1.08-1.30 [facility] Comment on above: Order Comment: Speci men Type: BLOOD SPECIMEN Performed By: #### I CA ####[facility] LABORATORYCLIA [id number] [address] CBC panel Auto (Bld)on 05-13 Erythrocyte distribution width (RBC) [Ratio] 11.9 % Normal 11.5-15.0 [facility] Comment on above: Order Comment: Speci men Type: BLOOD SPECIMEN Performed By: #### 5 8410-2 ####[facility] LABORATORYCLIA [id number] [address] Hematocrit (Bld) [Volume fraction] 39.1 % Normal 36.0-46.0 [facility] Comment on above: Order Comment: Speci men Type: BLOOD SPECIMEN Performed By: #### 5 8410-2 ####[facility] LABORATORYCLIA [id number] [address] Hemoglobin (Bld) [Mass/Vol] 12.9 g/dL Normal 11.5-15.5 [facility] Comment on above: Order Comment: Speci men Type: BLOOD SPECIMEN Performed By: #### 5 8410-2 ####[facility] LABORATORYCLIA [id number] [address] MCH (RBC) [Entitic mass] 31.2 pg Normal 26.0-34.0 [facility] Comment on above: Order Comment: Speci men Type: BLOOD SPECIMEN Performed By: #### 5 8410-2 ####[facility] LABORATORYCLIA [id number] [address] MCHC (RBC) [Mass/Vol] 33.0 g/dL Normal 30.5-36.0 [facility] Comment on above: Order Comment: Speci men Type: BLOOD SPECIMEN Performed By: #### 5 8410-2 ####[facility] LABORATORYCLIA [id number] [address] MCV (RBC) [Entitic vol] 94.7 fL Normal 80.0-100.0 [facility] Comment on above: Order Comment: Speci men Type: BLOOD SPECIMEN Performed By: #### 5 8410-2 ####[facility] LABORATORYCLIA [id number] [address] [place] Nucleated RBC (Bld) [#/Vol] 10*3/uL Normal <0.01 [facility] Comment on above: Order Comment: Speci men Type: BLOOD SPECIMEN Performed By: #### 5 8410-2 ####[facility] LABORATORYCLIA [id number] [address] Platelet mean volume (Bld) [Entitic vol] 9.2 fL Normal 9.0-12.7 [facility] Comment on above: Order Comment: Speci men Type: BLOOD SPECIMEN Performed By: #### 5 8410-2 ####[facility]ORATORYCLIA [id number] [address] Platelets (Bld) [#/Vol] 278 10*3/uL Normal 150-400 [facility] Comment on above: Order Comment: Speci men Type: BLOOD SPECIMEN Performed By: #### 5 8410-2 ####[facility]ORATORYCLIA [id number] [address] RBC (Bld) [#/Vol] 4.13 10*6/uL Normal 3.90-5.20 [facility] Comment on above: Order Comment: Speci men Type: BLOOD SPECIMEN Performed By: #### 5 8410-2 ####[facility]ORATORYCLIA [id number] [address] WBC (Bld) [#/Vol] 8.56 10*3/uL Normal 3.70-11.00 [facility] Comment on above: Order Comment: Speci men Type: BLOOD SPECIMEN Performed By: #### 5 8410-2 ####[facility] LABORATORYCLIA [id number] [address] CNDSon 05-13-2021 CNDS HNO ID: [id number] Author: Margret Dawson APRN.CNP Service: General Surgery [...] IN THE HOSPITAL: You were admitted at [facility] on 05/11/2021 following a fall. As part [...] you become constipated, you may use any iiyh-qsi-pkjmvnq treatment such as Milk of Magnesia, Sennakot, Prune Juice, Suppositories, etc. in addition to the stool softener/fiber supplement Other: Do not take any over the counter blood thinning medications such as ibuprofen, motrin, aspirin, naproxen, or aleve until cleared by neurosurgery. Use acetaminophen (Tylenol) as recommended on the bottle You should use an uwdc-xap-pfwxecx stool softener (Docusate sodium) and/or a fiber [...] call for appointment?: Yes Darrick Pierre MD [phone] [facility] [address] PCP Requested Referral Follow-Up Appointment When: In 2 weeks Patient/Parents to call for appointment?: Yes Deirdre Quiñones MD [phone] [address] [place] [address] PCP Requested Referral Additional Provider to Provider [...] FOLLOW-UP APPO (more content not included)... Normal [facility] Magnesium SerPl-mCncon 05-13 Magnesium [Mass/Vol] 2.0 mg/dL Normal 1.7-2.3 [facility] Comment on above: Order Comment: Speci men Type: BLOOD SPECIMEN Performed By: #### 1 9123-9, 2777-1, 36272-0 ####[facility] LABORATORYCLIA [id number] [address] Phosphate SerPl-ncon 05-13 Phosphate [Mass/Vol] 3.6 mg/dL Normal 2.7-4.8 [facility] Comment on above: Order Comment: Speci men Type: BLOOD SPECIMEN Performed By: #### 1 9123-9, 2777-1, 43650-8 ####[facility] LABORATORYCLIA [id number] [address] THERAPY NTon 05-13-2021 THERAPY NT HNO ID: [id number] Author: Lily Johnson [facility]-SL[facility] EXPANDER Service: Speech/Swallow Author Type: Speech Language Pathologist Type: Therapy (PT/OT/Speech/Resp) Filed: 05/13/2021 9:26 AM Note Text: Speech Therapy Speech Evaluation SERVICE DATE: 05/13/2021 SERVICE TIME: 902 to 18 ROOM: [place] [address] IMPRESSION: Functional communication without limitations in: Speech,Language,Cognit [...] 09/07 Months Reversed 09/07 30 Seconds 08/10 Bmgl-Ldxk-Kpev 09/07 Go/No-Go 09/07 Address Recall 08/10 Total [...] Skilled Need Interventions Provided: Speech Language Eval (77884) $ Speech Language Eval (31940) Billed Units: 1 unit Training and education [...] for this therapy evaluation/treatment. SIGNATURE: Lily Johnson CCC-SLAG EXPANDER PATIENT NAME: Sheree Chavez DATE: May 13, 2021 TIME: 9:25 AM [facility] HNO ID: [id number] Author: RT Michael(R) Service: Radiology Author Type: Punch Machine Hand Type: Allied Health Filed: 05/12/2021 2:08 PM [...] Michael(R) May 12, 2021 2:08 PM Normal [facility] HNO ID: [id number] Author: RT Melba(R) Service: Radiology Author Type: Technologist Type: Allied [...] Jenn(R) May 12, 2021 12:[address] [facility] Basic metabolic 2000 panelon 05-12-2021 Anion gap [Moles/Vol] 11 mmol/L Normal 9-18 [facility] Comment on above: Order Comment: Speci men Type: BLOOD SPECIMEN Performed By: #### 1 9123-9, 52077-3, 2776- ####[facility] LABORATORYCLIA [id number] [address] STATES OF [facility] Calcium [Mass/Vol] 8.5 mg/dL Normal 8.5-10.2 [facility] Comment on above: Order Comment: Speci men Type: BLOOD SPECIMEN Performed By: #### 1 9122-9, 17940-6, 2776- ####[facility] LABORATORYCLIA [id number] [address] [place] Chloride [Moles/Vol] 104 mmol/L Normal 97-105 [facility] Comment on above: Order Comment: Speci men Type: BLOOD SPECIMEN Performed By: #### 1 23-9, 52560-6, 2776- ####[facility]ORATORYCLIA [id number] [address] [place] CO2 [Moles/Vol] 24 mmol/L Normal 22-30 [facility] Comment on above: Order Comment: Speci men Type: BLOOD SPECIMEN Performed By: #### 1 23-9, 89966-1, 2776- ####[facility]ATORYCLIA [id number] [place] [address] [place] Creatinine [Mass/Vol] 0.70 mg/dL Normal 0.58-0.96 [facility] Comment on above: Order Comment: Speci men Type: BLOOD SPECIMEN Performed By: #### 1 9123-9, 86396-7, 2776- ####[facility]ATORYCLIA [id number] [place] [address] [place] GFR/1.73 sq M.predicted MDRD (S/P/Bld) [Vol rate/Area] mL/min/{1.73_m2} Normal [facility] Comment on above: Order Comment: Speci [...] actual GFR. Performed By: #### 1 9123-9, 25814-1, 2776- ####[facility] LABORATORYCLIA [id number] [place] [address] [place] Glucose [Mass/Vol] 146 mg/dL High 74-99 [facility] Comment on above: Order Comment: Speci men Type: BLOOD SPECIMEN Result Comment: The [place] Diabetes Association (ADA) provides guidance for cutoff [...] Standards of Medical Care in Diabetes 2016, [place] [employer] Association. Diabetes Care. 2016.39(Suppl 1). Performed By: #### 1 9123-9, 79215-1, 2776-07 ####[facility] LABORATORYCLIA [id number] [place] [id number] [place] Potassium [Moles/Vol] 3.8 mmol/L Normal 3.7-5.1 [facility] Comment on above: Order Comment: Speci men Type: BLOOD SPECIMEN Performed By: #### 1 9123-9, 85334-7, 2776- ####[facility]ORATORYCLIA [id number] [address] Sodium [Moles/Vol] 139 mmol/L Normal 136-144 [facility] Comment on above: Order Comment: Speci men Type: BLOOD SPECIMEN Performed By: #### 1 9123-9, 77885-7, 2776- ####[facility]ORATORYCLIA [id number] [address] Urea nitrogen [Mass/Vol] 9 mg/dL Normal 7-21 [facility] Comment on above: Order Comment: Speci men Type: BLOOD SPECIMEN Performed By: #### 1 9123-9, 31429-8, 2776-07 ####[facility]ORATORYCLIA [id number] [address] CALCIUM IONIZED Bon 05-12-20 Calcium.ionized (BldV) [Mass/Vol] 1.12 mmol/L Normal 1.08-1.30 [facility] Comment on above: Order Comment: Speci men Type: BLOOD SPECIMEN Performed By: #### I CA ####[facility]ORATORYCLIA [id number] [address] Calcium.ionized adjusted to pH 7.4 (Bld) [Moles/Vol] 1.10 mmol/L Normal 1.08-1.30 [facility] Comment on above: Order Comment: Speci men Type: BLOOD SPECIMEN Performed By: #### I CA ####[facility] LABORATORYCLIA [id number] [address] CBC panel Auto (Bld)on 05-12 Erythrocyte distribution width (RBC) [Ratio] 12.0 % Normal 11.5-15.0 [facility] Comment on above: Order Comment: Speci men Type: BLOOD SPECIMEN Performed By: #### 5 8410-2 ####[facility] LABORATORYCLIA [id number] [address] Hematocrit (Bld) [Volume fraction] 38.2 % Normal 36.0-46.0 [facility] Comment on above: Order Comment: Speci men Type: BLOOD SPECIMEN Performed By: #### 5 8410-2 ####[facility]ORATORYCLIA [id number] [address] Hemoglobin (Bld) [Mass/Vol] 12.4 g/dL Normal 11.5-15.5 [facility] Comment on above: Order Comment: Speci men Type: BLOOD SPECIMEN Performed By: #### 5 8410-2 ####[facility]ORATORYCLIA [id number] [address] MCH (RBC) [Entitic mass] 30.7 pg Normal 26.0-34.0 [facility] Comment on above: Order Comment: Speci men Type: BLOOD SPECIMEN Performed By: #### 5 8410-2 ####[facility]ORATORYCLIA [id number] [address] MCHC (RBC) [Mass/Vol] 32.5 g/dL Normal 30.5-36.0 [facility] Comment on above: Order Comment: Speci men Type: BLOOD SPECIMEN Performed By: #### 5 8410-2 ####[facility]ORATORYCLIA [id number] [address] MCV (RBC) [Entitic vol] 94.6 fL Normal 80.0-100.0 [facility] Comment on above: Order Comment: Speci men Type: BLOOD SPECIMEN Performed By: #### 5 8410-2 ####[facility]ORATORYCLIA [id number] [address] Nucleated RBC (Bld) [#/Vol] 10*3/uL Normal <0.01 [facility] Comment on above: Order Comment: Speci men Type: BLOOD SPECIMEN Performed By: #### 5 8410-2 ####[facility]ORATORYCLIA [id number] [address] Platelet mean volume (Bld) [Entitic vol] 8.8 fL Low 9.0-12.7 [facility] Comment on above: Order Comment: Speci men Type: BLOOD SPECIMEN Performed By: #### 5 8410-2 ####[facility]ORATORYCLIA [id number] [address] OF [facility] Platelets (Bld) [#/Vol] 273 10*3/uL Normal 150-400 [facility] Comment on above: Order Comment: Speci men Type: BLOOD SPECIMEN Performed By: #### 5 8410-2 ####[facility]ATORYCLIA [id number] [address] RBC (Bld) [#/Vol] 4.04 10*6/uL Normal 3.90-5.20 [facility] Comment on above: Order Comment: Speci men Type: BLOOD SPECIMEN Performed By: #### 5 8410-2 ####[facility]ATORYCLIA [id number] [address] WBC (Bld) [#/Vol] 10.12 10*3/uL Normal 3.70-11.00 [facility] Comment on above: Order Comment: Speci men Type: BLOOD SPECIMEN Performed By: #### 5 8410-2 ####[facility] LABORATORYCLIA [id number] [address] BRAIN WO IVCONon 05-12-[address] BRAIN WO IVCON * * *Final Report* * * DATE OF EXAM: May 12 2021 6:35AM [facility] 0504 - CT BRAIN WO IVCON [...] Reduction Employed: [employer] COMPARISON: 05/11/2021 RESULT: Oracle Developer (topogram) images: Post-operative change: None. Acute change: [...] evidence of new intracranial hemorrhage is identified. Alligator Hunter: YUMI Transcribe Date/Time: May 12 2021 6:46A Dictated by : LIONEL LARSON MD This examination was interpreted and the report reviewed and electronically signed by: LIONEL LARSON MD on May 12 2021 6:51AM EST [id number] Normal [facility] CT LUMBAR SPINE WO IVCONon 1 07-12-2020 CT LUMBAR SPINE WO IVCON * * *Final Report* * * DATE OF EXAM: May 12 2021 1:58PM [facility] 0508 - CT LUMBAR SPINE WO [...] level is at the level iliac crests Oracle Developer (topogram) images: Moderate degree of arterial calcification [...] Coexisting moderate degree of bilateral foraminal stenosis Alligator Hunter: [facility] Transcribe Date/Time: May 12 2021 2:14P Dictated by : MARIA G GRAHAM MD This examination was interpreted and the report reviewed and electronically signed by: MARIA G GRAHAM MD on May 12 2021 2:28PM EST [id number] Normal [facility] CT PELVIS ORTHO WO IVCONon 1 07-12-2020 CT PELVIS ORTHO WO IVCON * * *Final Report* * * DATE OF EXAM: May 12 2021 5:49AM [facility] 0087 - CT PELVIS ORTHO WO [...] CAM femoroacetabular impingement, right worse than left. Alligator Hunter: PSCB Transcribe Date/Time: May 12 2021 7:21A Dictated by : YANA KEENE MD This examination was interpreted and the report reviewed and electronically signed by: YANA KEENE MD on May 12 2021 7:33AM EST [id number] Normal [facility] ED NOTEon 05-12-2021 ED NOTE HNO ID: [id number] Author: Harjit Cosme Service: Emergency Medicine Author Type: Punch Machine Hand Type: ED Notes Filed: 05/12/2021 12:41 PM Note Text: Obil532. Rn informed Normal [facility] ED NOTE HNO ID: [id number] Author: Leah Roach RN Service: Emergency Medicine Author Type: Registered Nurse Type: ED Notes Filed: 05/12/2021 6:53 AM Note Text: Trauma team at bedside for update and reassessment of patient. Per team, general surgery and ortho, patient should be able to go to floor other than ICU. Pt will continue to be NPO until recent scans are back and reeval completed. Normal [facility] ED NOTE HNO ID: [id number] Author: Leah Roach RN Service: Emergency Medicine Author Type: Registered Nurse Type: ED Notes Filed: 05/12/2021 4:13 AM Note Text: Pt up with one assist to bedside commode. Pt denies any pain. Pt alert and oriented, no neuro deficits noted. Normal [facility] ED PROV NOTEon 05-12-2021 ED PROV NOTE HNO ID: [id number] Author: Amalia Mathias MD Service: Emergency Medicine [...] for disposition details Amalia Mathias MD 05/11/[address] [facility] Magnesium SerPl-mCncon 05-12 Magnesium [Mass/Vol] 1.6 mg/dL Low 1.7-2.3 [facility] Comment on above: Order Comment: Speci men Type: BLOOD SPECIMEN Performed By: #### 1 9123-9, 76505-6, 2777-1 ####[facility] LABORATORYCLIA [id number] [address] [place] Phosphate SerPl-mCncon 05-12 Phosphate [Mass/Vol] 3.9 mg/dL Normal 2.7-4.8 [facility] Comment on above: Order Comment: Speci men Type: BLOOD SPECIMEN Performed By: #### 1 9123-9, 95704-4, 2777- ####[facility] LABORATORYCLIA [id number] [place] [address] [place] SARS-CoV-2 RNA Resp Ql EULALIA+p robeon 05-12-2021 SARS-CoV-2 (COVID-19) RNA EULALIA+probe Ql (Resp) COVID 19 RESULT: SARS-CoV-2 (Agent of COVID-19) Not Detected by PCR. This test has been authorized by FDA under an Emergency Use Authorization (EUA). Normal [facility] Comment on above: Performed By: #### 9 4500-6 ####[facility] LABORATORYCLIA [id number] [place] [address] [place] STAPH AUREUS PCRon S. aureus and MRSA panel EULALIA+probe (Nose) Normal Negative [facility] Comment on above: Order Comment: Speci men Type: SWAB OF INTERNAL NOSE Result Comment: Nega tive for Staphylococcus aureus by PCR. Negative for MRSA by PCR Performed By: #### S APCR ####[facility] LABORATORYCLIA [id number] [address] TOX SCREEN ROUT URon 021 Amphetamines Confirm (U) [Mass/Vol] Negative Normal Negative [facility] Comment on above: Order Comment: Speci men Type: URINE SPECIMEN Result Comment: Cuto ff threshold at 1000 ng/mL. Performed By: #### U TOX2 ####[facility] LABORATORYCLIA [id number] [address] BARBITURATES, URINE Negative Normal Negative [facility] Comment on above: Order Comment: Speci men Type: URINE SPECIMEN Result Comment: Cuto ff threshold at 200 ng/mL. Performed By: #### U TOX2 ####[facility] LABORATORYCLIA [id number] [address] BENZODIAZEPINES, UR Negative Normal Negative [facility] Comment on above: Order Comment: Speci men Type: URINE SPECIMEN Result Comment: Cuto ff threshold at 200 ng/mL. Performed By: #### U TOX2 ####[facility]ORY[facility]IA [id number] [address] CANNABINOIDS,URINE Negative Normal Negative [facility] Comment on above: Order Comment: Speci men Type: URINE SPECIMEN Result Comment: Cuto ff threshold at 50 ng/mL. Performed By: #### U TOX2 ####[facility]ATORYCLIA [id number] [address] Cocaine Ql (U) Negative Normal Negative [facility] Comment on above: Order Comment: Speci men Type: URINE SPECIMEN Result Comment: Cuto ff threshold at 300 ng/mL. Performed By: #### U TOX2 ####[facility]ATORYCLIA [id number] [address] OF [facility] Ethanol (U) [Mass/Vol] <11 Normal <11 [facility] Comment on above: Order Comment: Speci men Type: URINE SPECIMEN Performed By: #### U TOX2 ####[facility] LABORATORYCLIA [id number] [address] Opiates Screen Ql (U) Negative Normal Negative [facility] Comment on above: Order Comment: Speci men Type: URINE SPECIMEN Result Comment: Cuto ff threshold at 300 ng/mL. Performed By: #### U TOX2 ####[facility]ORATORYCLIA [id number] [address] oxyCODONE cutoff Screen (U) [Mass/Vol] Negative Normal Negative [facility] Comment on above: Order Comment: Speci men Type: URINE SPECIMEN Result Comment: Cuto ff threshold at 100 ng/mL. Performed By: #### U TOX2 ####[facility] LABORATORYCLIA [id number] [address] Phencyclidine Ql (U) Negative Normal Negative [facility] Comment on above: Order Comment: Speci men Type: URINE SPECIMEN Result Comment: Cuto ff threshold at 25 ng/mL. Performed By: #### U TOX2 ####[facility] LABORATORYCLIA [id number] [address] XR CERVICAL 2V FLEX/EXTon XR CERVICAL [...] No abnormal subluxation with flexion and extension. Alligator Hunter: PSCB Transcribe Date/Time: May 12 2021 3:07P Dictated by : FANNY CAMPOS MD This examination was interpreted and the report reviewed and electronically signed by: FANNY CAMPOS MD on May 12 2021 3:09PM EST [id number] Normal [facility] ALLIED HEALTHon 05-11-2021 ALLIED HEALTH HNO ID: [id number] Author: Chaplain Genesis Service: Spiritual Care Author Type: Flight Crew Scheduler Type: Allied Health Filed: 05/11/2021 3:43 PM Note Text: SPIRITUAL CARE PROGRESS NOTE SERVICE DATE: 05/11/2021 SERVICE TIME: 3:30pm Flight Crew Scheduler responded to ED page; but no family was present To contact the Spiritual Care Department: Please call . SIGNATURE: Chaplain Genesis PATIENT NAME: Sheree Chavez DATE: May 11, 2021 TIME: 3:42 PM PAGER/CONTACT #: [phone] [facility] CBC panel Auto (Bld)on 05-11 Erythrocyte distribution width (RBC) [Ratio] 11.9 % Normal 11.5-15.0 [facility] Comment on above: Order Comment: Speci men Type: BLOOD SPECIMEN Performed By: #### 5 8410-2 ####[facility] LABORATORYCLIA [id number] [address] STATES OF [facility] Hematocrit (Bld) [Volume fraction] 42.2 % Normal 36.0-46.0 [facility] Comment on above: Order Comment: Speci men Type: BLOOD SPECIMEN Performed By: #### 5 8410-2 ####[facility] LABORATORYCLIA [id number] [address] [place] Hemoglobin (Bld) [Mass/Vol] 13.9 g/dL Normal 11.5-15.5 [facility] Comment on above: Order Comment: Speci men Type: BLOOD SPECIMEN Performed By: #### 5 8410-2 ####[facility] LABORATORYCLIA [id number] [address] [place] MCH (RBC) [Entitic mass] 30.8 pg Normal 26.0-34.0 [facility] Comment on above: Order Comment: Speci men Type: BLOOD SPECIMEN Performed By: #### 5 8410-2 ####[facility] LABORATORYCLIA [id number] [address] MCHC (RBC) [Mass/Vol] 32.9 g/dL Normal 30.5-36.0 [facility] Comment on above: Order Comment: Speci men Type: BLOOD SPECIMEN Performed By: #### 5 8410-2 ####[facility] LABORATORYCLIA [id number] [address] MCV (RBC) [Entitic vol] 93.6 fL Normal 80.0-100.0 [facility] Comment on above: Order Comment: Speci men Type: BLOOD SPECIMEN Performed By: #### 5 8410-2 ####[facility] LABORATORYCLIA [id number] [address] Nucleated RBC (Bld) [#/Vol] 10*3/uL Normal <0.01 [facility] Comment on above: Order Comment: Speci men Type: BLOOD SPECIMEN Performed By: #### 5 8410-2 ####[facility] LABORATORYCLIA [id number] [address] Platelet mean volume (Bld) [Entitic vol] 8.9 fL Low 9.0-12.7 [facility] Comment on above: Order Comment: Speci men Type: BLOOD SPECIMEN Performed By: #### 5 8410-2 ####[facility] LABORATORYCLIA [id number] [address] Platelets (Bld) [#/Vol] 317 10*3/uL Normal 150-400 [facility] Comment on above: Order Comment: Speci men Type: BLOOD SPECIMEN Performed By: #### 5 8410-2 ####[facility] LABORATORYCLIA [id number] [address] RBC (Bld) [#/Vol] 4.51 10*6/uL Normal 3.90-5.20 [facility] Comment on above: Order Comment: Speci men Type: BLOOD SPECIMEN Performed By: #### 5 8410-2 ####[facility] LABORATORYCLIA [id number] [address] OF [facility] WBC (Bld) [#/Vol] 13.23 10*3/uL High 3.70-11.00 [facility] Comment on above: Order Comment: Speci men Type: BLOOD SPECIMEN Performed By: #### 5 8410-2 ####[facility] LABORATORYCLIA [id number] [address] CONSULTon 05-11-2021 CONSULT HNO ID: [id number] Author: Lane Flores MD Service: Orthopaedic Surgery Author Type: Physician Type: Consults Filed: 05/12/2021 11:54 AM Note Text: ORTHOPAEDIC SURGERY CONSULT Pt: SHEREE CHAVEZ Date of Consultation: 05/11/2021 Physician Consulted: Dr. Flores Reason for Consultation: R hip pain, concern for occult hip fracture HPI: 75 year old female presented to [facility] as a trauma transfer after sustaining a [...] daily. - Blood-Glucose Meter (FREESTYLE LITE METER) [facility] monitoring kit 1 Each. Freestyle LITE Meter [...] 4.0 05/11/2021 (more content not included)... Normal [facility] CONSULT HNO ID: [id number] Author: Bridgett Guerrero PA-C Service: Neurosurgery Author Type: Physician Business Dean Type: Consults Filed: 05/11/2021 5:26 PM Note [...] brought her to [facility], then transferred to [facility]. She is currently awake and alert and [...] mouth onc (more content not included)... Normal [facility] CONSULT HNO ID: [id number] Author: Nicolas Donald MD Service: General Surgery [...] stable subdural (more content not included)... Normal [facility] CT BRAIN WO IVCONon 05-11-[address] BRAIN WO IVCON * * *Final Report* * * DATE OF EXAM: May 11 2021 3:47PM [facility] 0504 - CT BRAIN WO IVCON [...] and C6-7. No significant bony foraminal stenosis Oracle Developer (topogram) images: No additional findings. IMPRESSION: Stable bilateral subarachnoid and subdural hemorrhage. No new findings. No acute findings in the cervical spine. Degenerative changes. Anatomic Variant: None. Assume 7 cervical vertebrae with counting from the craniocervical junction. Alligator Hunter: PSCB Transcribe Date/Time: May 11 2021 4:06P Dictated by : CHRISSY CAMACHO MD This examination was interpreted and the report reviewed and electronically signed by: CHRISSY CAMACHO MD on May 11 2021 4:14PM EST [id number] Normal [facility] CT CERVICAL SPINE WO IVCONon 05-11-2021 CT CERVICAL SPINE WO IVCON * * *Final Report* * * DATE OF EXAM: May 11 2021 3:47PM [facility] 0505 - CT CERVICAL SPINE WO [...] and C6-7. No significant bony foraminal stenosis Oracle Developer (topogram) images: No additional findings. IMPRESSION: Stable bilateral subarachnoid and subdural hemorrhage. No new findings. No acute findings in the cervical spine. Degenerative changes. Anatomic Variant: None. Assume 7 cervical vertebrae with counting from the craniocervical junction. Alligator Hunter: YUMI Transcribe Date/Time: May 11 2021 4:06P Dictated by : CHRISSY CAMACHO MD This examination was interpreted and the report reviewed and electronically signed by: CHRISSY CAMACHO MD on May 11 2021 4:14PM EST [id number] Normal [facility] Comprehensive metabolic 2000 panelon 05-11-2021 Albumin [Mass/Vol] 4.4 g/dL Normal 3.9-4.9 [facility] Comment on above: Order Comment: Speci men Type: BLOOD SPECIMEN Performed By: #### 2 4323-8, 3040-3 ####[facility] LABORATORYCLIA [id number] [address] ALP [Catalytic activity/Vol] 31 U/L Low 34-123 [facility] Comment on above: Order Comment: Speci men Type: BLOOD SPECIMEN Performed By: #### 2 4323-8, 3040-3 ####[facility]ATORYCLIA [id number] [address] [place] [facility] ALT With P-5'-P [Catalytic activity/Vol] 22 U/L Normal 7-38 [facility] Comment on above: Order Comment: Speci men Type: BLOOD SPECIMEN Performed By: #### 2 4323-8, 3040-3 ####[facility]ATORYCLIA [id number] [place], [place] [address] [place] [address] Anion gap [Moles/Vol] 14 mmol/L Normal 9-18 [facility] Comment on above: Order Comment: Speci men Type: BLOOD SPECIMEN Performed By: #### 2 4323-8, 3040-3 ####[facility]ORYCLIA [id number] [address] [place] [facility] AST With P-5'-P [Catalytic activity/Vol] 20 U/L Normal 13-35 [facility] Comment on above: Order Comment: Speci men Type: BLOOD SPECIMEN Performed By: #### 2 4323-8, 3040-3 ####[facility]ORYCLIA [id number] [address] Bilirubin [Mass/Vol] 0.3 mg/dL Normal 0.2-1.3 [facility] Comment on above: Order Comment: Speci men Type: BLOOD SPECIMEN Performed By: #### 2 4323-8, 3040-3 ####[facility] LABORATORYCLIA [id number] [address] STATES OF [facility] Calcium [Mass/Vol] 9.5 mg/dL Normal 8.5-10.2 [facility] Comment on above: Order Comment: Speci men Type: BLOOD SPECIMEN Performed By: #### 2 4323-8, 0-3 ####[facility]ORATORYCLIA [id number] [address] STATES [facility] Chloride [Moles/Vol] 99 mmol/L Normal 97-105 [facility] Comment on above: Order Comment: Speci men Type: BLOOD SPECIMEN Performed By: #### 2 4323-8, 3039-3 ####[facility]ORATORYCLIA [id number] [address] [place] CO2 [Moles/Vol] 24 mmol/L Normal 22-30 [facility] Comment on above: Order Comment: Speci men Type: BLOOD SPECIMEN Performed By: #### 2 4323-8, 0-3 ####[facility]ORATORYCLIA [id number] [address] STATES [facility] Creatinine [Mass/Vol] 0.73 mg/dL Normal 0.58-0.96 [facility] Comment on above: Order Comment: Speci men Type: BLOOD SPECIMEN Performed By: #### 2 4323-8, 0-3 ####[facility]ORATORYCLIA [id number] [address] [place] GFR/1.73 sq M.predicted MDRD (S/P/Bld) [Vol rate/Area] mL/min/{1.73_m2} Normal [facility] Comment on above: Order Comment: Speci [...] GFR. Performed By: #### 2 4323-8, 3039-3 ####[facility]ORATORYCLIA [id number] [place] [address] [place] Glucose [Mass/Vol] 125 mg/dL High 74-99 [facility] Comment on above: Order Comment: Speci men Type: BLOOD SPECIMEN Result Comment: The [place] Diabetes Association (ADA) provides guidance for cutoff [...] Standards of Medical Care in Diabetes 2016, [place] [employer] Association. Diabetes Care. 2016.39(Suppl 1). Performed By: #### 2 4323-8, 3 ####[facility] LABORATORYCLIA [id number] [place] [address] [place] Potassium [Moles/Vol] 4.0 mmol/L Normal 3.7-5.1 [facility] Comment on above: Order Comment: Speci men Type: BLOOD SPECIMEN Performed By: #### 2 4323-8, 3039-3 ####[facility] LABORATORYCLIA [id number] [place] [address] [place] Protein [Mass/Vol] 7.5 g/dL Normal 6.3-8.0 [facility] Comment on above: Order Comment: Speci men Type: BLOOD SPECIMEN Performed By: #### 2 4323-8, 3040-3 ####[facility]ORY[facility]IA [id number] [address] Sodium [Moles/Vol] 137 mmol/L Normal 136-144 [facility] Comment on above: Order Comment: Speci men Type: BLOOD SPECIMEN Performed By: #### 2 4323-8, 3040-3 ####[facility]ORYCLIA [id number] [address] Urea nitrogen [Mass/Vol] 10 mg/dL Normal 7-21 [facility] Comment on above: Order Comment: Speci men Type: BLOOD SPECIMEN Performed By: #### 2 4323-8, 3040-3 ####[facility]ORYCLIA [id number] [address] ED NOTEon 05-11-2021 ED NOTE HNO ID: [id number] Author: Jocelyn Austin Service: ? Author Type: Molding Machine Tender and Punch Machine Hand Type: ED Notes Filed: 05/11/2021 3:26 PM Note Text: Bed: [address] [place] [address] Expected date: Expected time: Means of arrival: [facility] Ground Comments: [facility] transfer trauma [address] [facility] ED PROV NOTEon 05-11-2021 ED PROV NOTE HNO ID: [id number] Author: Eze James MD Service: Emergency Medicine [...] as a trauma level 2 transfer from [facility] for intracranial bleeding after mechanical fall. Patient fell from a stepstool backwards hitting her head on the ground. She was evaluated at [facility] and was found to have subarachnoid hemorrhage, [...] (Tenderness to (more content not included)... Normal [facility] Ethanol SerPl-mCncon 021 Ethanol [Mass/Vol] mg/dL Normal <11 [facility] Comment on above: Order Comment: Speci men Type: BLOOD SPECIMEN Performed By: #### 5 643-2 ####[facility] LABORATORYCLIA [id number] [address] [place] HISTORY PHYSICALon HISTORY PHYSICAL HNO ID: [id number] Author: Chacho Ocampo MD Service: General Surgery [...] Date(s) Administered COVID-19 vaccine, age 12+ yr ([employer]) 08/16/2020 09/07/2020 04/08/2021 H1N1 Influenza 05/17/2009 Influenza [...] No crep (more content not included)... Normal [facility] Lipase SerPl-cCncon 05-11-20 21 Lipase [Catalytic activity/Vol] 36 U/L Normal 16-61 [facility] Comment on above: Order Comment: Speci men Type: BLOOD SPECIMEN Performed By: #### 2 4323-8, 3040-3 ####[facility] LABORATORYCLIA [id number] [place] [address] [place] PT panel Coag (PPP)on 2020 INR Coag (PPP) [Relative time] 1.0 {INR} Normal 0.9-1.3 [facility] Comment on above: Order Comment: Speci men Type: BLOOD SPECIMEN Result Comment: Alisha min K Antagonist (VKA) Therapeutic Range: INR 2 to 3 (Target INR of 2.5) Note: For patients treated with VKA drugs, such as warfarin, the [place] [employer]icians 2012 Guideline recommends [...] Chest 2012, 141:7S-47S Michele RA, et al. [facility] 2017, 70: 252-289 Performed By: #### 3 4528-0, 84261-5 ####[facility]ORATORYCLIA [id number] [address] PT Coag (PPP) [Time] 10.9 s Normal 9.7-13.0 [facility] Comment on above: Order Comment: Speci men Type: BLOOD SPECIMEN Performed By: #### 3 4528-0, 98203-3 ####[facility]ATORYCLIA [id number] [address] TYPE AND SCREENon 05-11-[address] [facility] Comment on above: Order Comment: Speci men Type: BLOOD SPECIMEN Performed By: #### T SCR #### [facility] CLIA [id number] [address] HISTORICAL AB SCR STATUS Negative [facility] Comment on above: Order Comment: Speci men Type: BLOOD SPECIMEN Performed By: #### T SCR #### [facility] CLIA [id number] [address] Rh Nom (Bld) Positive Normal [facility] Comment on above: Order Comment: Speci men Type: BLOOD SPECIMEN Performed By: #### T SCR #### [facility] CLIA [id number] [address] TYPE AND SCREEN EXPIRATION 05/14/2021 23:[address] [facility] Comment on above: Order Comment: Speci men Type: BLOOD SPECIMEN Performed By: #### T SCR #### [facility] CLIA [id number] [address] OF [facility] aPTT PPPon 05-11-2021 aPTT Coag (PPP) [Time] 27.1 s Normal 23.0-32.4 [facility] Comment on above: Order Comment: Speci men Type: BLOOD SPECIMEN Performed By: #### 3 4528-0, 62580-4 ####[facility] LABORATORYCLIA [id number] [place] [id number] [facility] Vital Signs Date Time Vital Sign Value Performing Clinician Facility 09-23-2024 09:12-0400 Body mass index (BMI) [Ratio] 31.68 kg/m2 Siliva Vazquez APRN.CHEF KITCHEN MANAGER Work Phone: [facility] 09-23-2024 09:12-0400 Body weight 76.4 kg Silvia Vazquez APRN.CHEF KITCHEN MANAGER Work Phone: [facility] 09-23-2024 09:12-0400 Diastolic blood pressure 70 mm[Hg] Silvia Vazquez DEBRIDGING MACHINE OPERATOR.CHEF KITCHEN MANAGER Work Phone: [facility] 09-23-2024 09:12-0400 Heart rate 85 /min Silvia Vazquez APRN.CHEF KITCHEN MANAGER Work Phone: [facility] 09-23-2024 09:12-0400 Respiratory rate 16 /min Silvia Vazquez DEBRIDGING MACHINE OPERATOR.CHEF KITCHEN MANAGER Work Phone: [facility] 09-23-2024 09:12-0400 SaO2% (BldA) [Mass fraction] 96 % Silvia Vazquez DEBRIDGING MACHINE OPERATOR.CHEF KITCHEN MANAGER Work Phone: [facility] 09-23-2024 09:12-0400 Systolic blood pressure 110 mm[Hg] Silvia Vazquez APRN.CHEF KITCHEN MANAGER Work Phone: [facility] 06-17-2024 09:52-0500 Body height 155.3 cm Silvia Vazquez APRN.CHEF KITCHEN MANAGER Work Phone: [facility] 06-17-2024 09:52-0500 Body mass index (BMI) [Ratio] 32.59 kg/m2 Silvia Tannhof DEBRIDGING MACHINE OPERATOR.CHEF KITCHEN MANAGER Work Phone: [facility] 06-17-2024 09:52-0500 Body weight 78.6 kg Silvia Tannhof DEBRIDGING MACHINE OPERATOR.CHEF KITCHEN MANAGER Work Phone: [facility] 06-17-2024 09:52-0500 Diastolic blood pressure 70 mm[Hg] Silvia Tannhof DEBRIDGING MACHINE OPERATOR.CHEF KITCHEN MANAGER Work Phone: [facility] 06-17-2024 09:52-0500 Heart rate 87 /min Silvia Tannhof DEBRIDGING MACHINE OPERATOR.CHEF KITCHEN MANAGER Work Phone: [facility] 06-17-2024 09:52-0500 Respiratory rate 16 /min Silvia Tannhof DEBRIDGING MACHINE OPERATOR.CHEF KITCHEN MANAGER Work Phone: [facility] 06-17-2024 09:52-0500 SaO2% (BldA) [Mass fraction] 98 % Silvia Tannhof DEBRIDGING MACHINE OPERATOR.CHEF KITCHEN MANAGER Work Phone: [facility] 06-17-2024 09:52-0500 Systolic blood pressure 100 mm[Hg] Silvia Tannhof DEBRIDGING MACHINE OPERATOR.CHEF KITCHEN MANAGER Work Phone: [facility] 04-29-2023 10:38-0400 Body height 153.3 cm Silvia Tannhof DEBRIDGING MACHINE OPERATOR.CHEF KITCHEN MANAGER Work Phone: [facility] 04-29-2023 10:38-0400 Body weight 79.38 kg Silvia Tannhof DEBRIDGING MACHINE OPERATOR.CHEF KITCHEN MANAGER Work Phone: [facility] 04-29-2023 10:38-0400 Diastolic blood pressure 70 mm[Hg] Silvia Tannhof DEBRIDGING MACHINE OPERATOR.CHEF KITCHEN MANAGER Work Phone: [facility] 04-29-2023 10:38-0400 Heart rate 105 /min Silvia Tannhof DEBRIDGING MACHINE OPERATOR.CHEF KITCHEN MANAGER Work Phone: [facility] 04-29-2023 10:38-0400 Respiratory rate 16 /min Silvia Tannhof DEBRIDGING MACHINE OPERATOR.CHEF KITCHEN MANAGER Work Phone: [facility] 04-29-2023 10:38-0400 SaO2% (BldA) [Mass fraction] 97 % Silvia Vazquez DEBRIDGING MACHINE OPERATOR.CHEF KITCHEN MANAGER Work Phone: [facility] 04-29-2023 10:38-0400 Systolic blood pressure 100 mm[Hg] Silvia Vazquez DEBRIDGING MACHINE OPERATOR.CHEF KITCHEN MANAGER Work Phone: [facility] 04-22-2023 11:54-0400 Body temperature 97.39 [degF] Spencer John DEBRIDGING MACHINE OPERATOR.CHEF KITCHEN MANAGER Work Phone: [facility] 04-22-2023 11:54-0400 Body weight 79.83 kg Spencer John DEBRIDGING MACHINE OPERATOR.CHEF KITCHEN MANAGER Work Phone: [facility] 04-22-2023 11:54-0400 Diastolic blood pressure 80 mm[Hg] Spencer John DEBRIDGING MACHINE OPERATOR.CHEF KITCHEN MANAGER Work Phone: [facility] 04-22-2023 11:54-0400 Heart rate 88 /min Spencer John DEBRIDGING MACHINE OPERATOR.CHEF KITCHEN MANAGER Work Phone: [facility] 04-22-2023 11:54-0400 Respiratory rate 16 /min Spencer John DEBRIDGING MACHINE OPERATOR.CHEF KITCHEN MANAGER Work Phone: [facility] 04-22-2023 11:54-0400 SaO2% (BldA) [Mass fraction] 97 % Spencer John DEBRIDGING MACHINE OPERATOR.CHEF KITCHEN MANAGER Work Phone: [facility] 04-22-2023 11:54-0400 Systolic blood pressure 138 mm[Hg] Spencer John DEBRIDGING MACHINE OPERATOR.CHEF KITCHEN MANAGER Work Phone: [facility] 04-19-2023 20:21-0400 Body temperature 96.3 [degF] Dr. Deirdre Quiñones Work Phone: [facility] 04-19-2023 20:21-0400 Diastolic blood pressure 65 mm[Hg] Dr. Deirdre Quiñones Work Phone: [facility] 04-19-2023 20:21-0400 Heart rate 107 /min Dr. Deirdre Quiñones Work Phone: [facility] 04-19-2023 20:21-0400 Respiratory rate 18 /min Dr. Deirdre Quiñones Work Phone: [facility] 04-19-2023 20:21-0400 SaO2% (BldA) [Mass fraction] 98 % Dr. Deirdre Quiñones Work Phone: [facility] 04-19-2023 20:21-0400 Systolic blood pressure 102 mm[Hg] Dr. Deirdre Quiñones Work Phone: [facility] 04-19-2023 20:16-0400 Body height 157.[address] Deirdre Quiñones Work Phone: [facility] 04-19-2023 20:16-0400 Body mass index (BMI) [Ratio] 31.7 kg/m2 Dr. Deirdre Quiñones Work Phone: [facility] 04-19-2023 20:16-0400 Body weight 78.[address] Deirdre Quiñones Work Phone: [facility] 04-19-2023 19:52-0400 Body temperature 97.7 [degF] Maura Morillo APRN.CHEF KITCHEN MANAGER Work Phone: [facility] 04-19-2023 19:52-0400 Body weight 79.56 kg Maura Morillo APRN.CHEF KITCHEN MANAGER Work Phone: [facility] 04-19-2023 19:52-0400 Diastolic blood pressure 72 mm[Hg] Maura Morillo APRN.CHEF KITCHEN MANAGER Work Phone: [facility] 04-19-2023 19:52-0400 Heart rate 104 /min Maura Morillo APRN.CHEF KITCHEN MANAGER Work Phone: [facility] 04-19-2023 19:52-0400 Respiratory rate 24 /min Maura Morillo APRN.CHEF KITCHEN MANAGER Work Phone: [facility] 04-19-2023 19:52-0400 SaO2% (BldA) [Mass fraction] 98 % Maura Morillo APRN.CHEF KITCHEN MANAGER Work Phone: [facility] 04-19-2023 19:52-0400 Systolic blood pressure 134 mm[Hg] Maura Morillo DEBRIDGING MACHINE OPERATOR.CHEF KITCHEN MANAGER Work Phone: [facility] 02-23-2023 00:03-0400 Diastolic blood pressure 91 mm[Hg] [facility] 02-23-2023 00:03-0400 Heart rate 71 /min [facility] 02-23-2023 00:03-0400 Respiratory rate 18 /min [facility] 02-23-2023 00:03-0400 SaO2% (BldA) [Mass fraction] 99 % [facility] 02-23-2023 00:03-0400 Systolic blood pressure 172 mm[Hg] [facility] 02-22-2023 22:11-0400 Body mass index (BMI) [Ratio] 33.8 kg/m2 [facility] 02-22-2023 22:11-0400 Body weight 83.9 kg [facility] 02-22-2023 21:06-0400 Body height 157.48 cm [facility] 02-22-2023 21:06-0400 Body temperature 97.8 [degF] [facility] 11-22-2022 08:26-0400 Body temperature 95.3 [degF] [facility] 11-22-2022 08:26-0400 Diastolic blood pressure 93 mm[Hg] [facility] 11-22-2022 08:26-0400 Heart rate 78 /min [facility] 11-22-2022 08:26-0400 Respiratory rate 16 /min [facility] 11-22-2022 08:26-0400 SaO2% (BldA) [Mass fraction] 99 % [facility] 11-22-2022 08:26-0400 Systolic blood pressure 145 mm[Hg] [facility] 06-27-2022 09:12-0500 Body weight 80.74 kg Silvia Vazquez DEBRIDGING MACHINE OPERATOR.CHEF KITCHEN MANAGER Work Phone: [facility] 06-27-2022 09:12-0500 Diastolic blood pressure 98 mm[Hg] Silvia Vazquez DEBRIDGING MACHINE OPERATOR.CHEF KITCHEN MANAGER Work Phone: [facility] 06-27-2022 09:12-0500 Heart rate 92 /min Silvia Goodwinhof DEBRIDGING MACHINE OPERATOR.CHEF KITCHEN MANAGER Work Phone: [facility] 06-27-2022 09:12-0500 Respiratory rate 20 /min Silvia Goodwinhojuan pablo DEBRIDGING MACHINE OPERATOR.CHEF KITCHEN MANAGER Work Phone: [facility] 06-27-2022 09:12-0500 SaO2% (BldA) [Mass fraction] 98 % Silvia Goodwinhof DEBRIDGING MACHINE OPERATOR.CHEF KITCHEN MANAGER Work Phone: [facility] 06-27-2022 09:12-0500 Systolic blood pressure 150 mm[Hg] Silvia Goodwinhojuan pablo DEBRIDGING MACHINE OPERATOR.CHEF KITCHEN MANAGER Work Phone: [facility] 04-05-2022 09:33-0400 Body weight 81.28 kg Deirdre Quiñones MD Work Phone: [facility] 04-05-2022 09:33-0400 Diastolic blood pressure 74 mm[Hg] Deirdre Quiñones MD Work Phone: [facility] 04-05-2022 09:33-0400 Heart rate 68 /min Deirdre Quiñones MD Work Phone: [facility] 04-05-2022 09:33-0400 Respiratory rate 16 /min Deirdre Quiñones MD Work Phone: [facility] 04-05-2022 09:33-0400 Systolic blood pressure 122 mm[Hg] Deirdre Quiñones MD Work Phone: [facility] 11-16-2021 12:45-0400 Body temperature 97.39 [degF] Maura Morillo APRN.CHEF KITCHEN MANAGER Work Phone: [facility] 11-16-2021 12:45-0400 Body weight 82.1 kg Maura Morillo APRN.CHEF KITCHEN MANAGER Work Phone: [facility] 11-16-2021 12:45-0400 Diastolic blood pressure 74 mm[Hg] Maura Morillo APRN.CHEF KITCHEN MANAGER Work Phone: [facility] 11-16-2021 12:45-0400 Heart rate 85 /min Maura Morillo APRN.CHEF KITCHEN MANAGER Work Phone: [facility] 11-16-2021 12:45-0400 Respiratory rate 21 /min Maura Morillo APRN.CHEF KITCHEN MANAGER Work Phone: [facility] 11-16-2021 12:45-0400 SaO2% (BldA) [Mass fraction] 97 % Maura Morillo APRN.CHEF KITCHEN MANAGER Work Phone: [facility] 11-16-2021 12:45-0400 Systolic blood pressure 124 mm[Hg] Maura Morillo APRN.CHEF KITCHEN MANAGER Work Phone: [facility] 09-26-2021 10:16-0400 Body height 157.5 cm Deirdre Quiñones MD Work Phone: [facility] 09-26-2021 10:16-0400 Body weight 81.92 kg Deirdre Quiñones MD Work Phone: [facility] 09-26-2021 10:16-0400 Diastolic blood pressure 70 mm[Hg] Deirdre Quiñones MD Work Phone: [facility] 09-26-2021 10:16-0400 Heart rate 66 /min Deirdre Quiñones MD Work Phone: [facility] 09-26-2021 10:16-0400 Respiratory rate 16 /min Deirdre Quiñones MD Work Phone: [facility] 09-26-2021 10:16-0400 Systolic blood pressure 124 mm[Hg] Deirdre Quiñones MD Work Phone: [facility] Encounters Encounter Date Encounter Type Care Provider Facility Start: 03-12-2025 End: 03-12-2025 Refill Deirdre Quiñones MD Work Phone: [facility] Comment on above: Refill Request Start: 01-19-2025 End: 01-19-2025 Refill Deirdre Quiñones MD Work Phone: [facility] [place] Comment on above: Refill Request Start: 12-09-2024 End: 12-09-2024 ambulatory Denise Edward RN Yard Coordinator Management Comment on above: Nurse Care Coordinat or Outreach Start: 12-09-2024 End: 12-09-2024 E-mail encounter from caregiver Denise Edward RN Yard Coordinator Management Start: 12-03-2024 End: 12-03-2024 ambulatory Deirdre Quiñones MD Work Phone: [facility] Start: 12-01-2024 End: 12-01-2024 Telephone encounter Deirdre Quiñones MD Work Phone: [facility] [place] Comment on above: Insurance Authorizat ion Start: 11-29-2024 End: 12-01-2024 Refill Jay Saravanan DEBRIDGING MACHINE OPERATOR.CHEF KITCHEN MANAGER Work Phone: [facility] [place] Comment on above: Refill Request Start: 11-20-2024 End: 11-20-2024 ambulatory Denise Edward RN [employer] Coordinator Management Comment on above: Nurse Care Coordinat or Outreach Start: 11-20-2024 End: 11-20-2024 E-mail encounter from caregiver Denise Edward RN Yard Coordinator Management Start: 11-06-2024 End: 11-06-2024 ambulatory Denise Edward RN Yard Coordinator Management Comment on above: Nurse Care Coordinat or Outreach Start: 11-06-2024 End: 11-06-2024 E-mail encounter from caregiver Denise Edward RN Yard Coordinator Management Start: 10-23-2024 End: 10-23-2024 ambulatory Denise Edward RN Yard Coordinator Management Comment on above: Bi-Weekly Outreach ( Recurring) for Chronic Disease Management Start: 10-19-2024 End: 10-19-2024 Refill Jay Saravanan DEBRIDGING MACHINE OPERATOR.CHEF KITCHEN MANAGER Work Phone: [facility] [place] Comment on above: Refill Request Start: 10-14-2024 End: 11-11-2024 Telephone encounter [facility] Comment on above: New Primary Care Pha rmacy Appt. Start: 10-13-2024 End: 10-13-2024 ambulatory Mesfin Callahan [facility] Work Phone: Pharmacy Medicine Start: 10-13-2024 End: 10-13-2024 Coordination of care plan Mesfinsarah Callahan [facility] Work Phone: Pharmacy Medicine Comment on above: Care Coordination (R eferred to Pharmacy for Diabetes Management) Start: 10-12-2024 End: 10-12-2024 ambulatory Denise Edward RN [employer] Coord[employer] Management Comment on above: Nurse Care Coordinat or Outreach Start: 10-12-2024 End: 10-12-2024 E-mail encounter from caregiver Denise Edward RN Yard Coordinator Management Start: 09-25-2024 End: 09-25-2024 Refill Deirdre Quiñones MD Work Phone: [facility] [place] Comment on above: Refill Request Nurse Care Coordinat or Outreach Start: 09-24-2024 End: 09-24-2024 ambulatory [facility] [place] Start: 09-24-2024 End: 09-24-2024 Patient encounter procedure Scarlett Stone [facility] [place] Comment on above: Population Health Na vigation Outreach (jackelin dhaliwal) Start: 09-23-2024 End: 09-23-2024 Office outpatient visit 25 minutes Silvia Vazquez APRN.CNP Work Phone: [facility] Comment on above: Type 2 diabetes radha itus without complication, without long- term current use of insulin (HCC) (Primary Dx); Sciatica, right side; Hypothyroidism, unspecified type; Anxiety state; Asthma due to seasonal allergies; Mixed hyperlipidemia; Smoking Start: 09-23-2024 End: 09-23-2024 ambulatory [facility] Facility:[facility] Start: 09-21-2024 End: 09-21-2024 ambulatory [facility] Facility[facility] Start: 09-11-2024 End: 09-11-2024 ambulatory Denise Edward RN Yard Coordinator Management Comment on above: CDM (Enrollment outr each) Initial enrollment outreach for Chronic Disease Management Start: 08-21-2024 End: 08-21-2024 ambulatory Bonnie Tucker MA [facility] [place] Start: 08-21-2024 End: 08-21-2024 Patient encounter procedure Bonnie Tucker MA [place] Comment on above: Population Health Na vigation Outreach ([employer] High Risk - Attempt 1) Start: 07-21-2024 End: 07-22-2024 Refill Deirdre Quiñones MD Work Phone: [facility] [place] Comment on above: Refill Request Start: 06-17-2024 End: 06-17-2024 ambulatory SILVIA YOUSIFE TAYLOR Facility:[facility] Start: 06-17-2024 End: 06-17-2024 Patient encounter procedure Silvia Vazquez APRN.CHEF KITCHEN MANAGER Work Phone: [facility] [place] Comment on above: Medicare annual well ness visit, subsequent (Primary Dx); Sciatica, right side; Acute pain of left knee; Type 2 diabetes mellitus without complication, without long-term current use of insulin (HCC); Hypothyroidism, unspecified type; Asthma due to seasonal allergies; Anxiety state; Smoking; Screening for depression Start: 06-16-2024 End: 06-16-2024 ambulatory DEIRDRE QUIÑONES Facility:[facility] Start: 05-18-2024 End: 05-18-2024 Refill Jay Tran APRN.CHEF KITCHEN MANAGER Work Phone: [facility] [place] Comment on above: Refill Request Start: 04-24-2024 End: 04-24-2024 Refill Deirdre Quiñones MD Work Phone: [facility] [place] Comment on above: Refill Request Start: 04-20-2024 End: 04-20-2024 Refill Silvia Vazquez APRN.CHEF KITCHEN MANAGER Work Phone: [facility] [place] Comment on above: Refill Request Start: 01-17-2024 Refill Deirdre stephen MD Work Phone: [facility] [place] Comment on above: Refill Request Start: 10-22-2023 Refill Jay BOGGS RN.CHEF KITCHEN MANAGER Work Phone: [facility] [place] Comment on above: Refill Request Start: 04-29-2023 End: 04-29-2023 Patient encounter procedure Silvia Vazquez APRN.CHEF KITCHEN MANAGER Work Phone: [facility] Comment on above: Medicare annual well ness visit, initial (Primary Dx); Type 2 diabetes mellitus without complication, without long-term current use of insulin (HCC); Hypertension, unspecified type; Mixed hyperlipidemia; Anxiety state; Hypothyroidism, unspecified type; History of COVID-19 Start: 04-24-2023 Refill Deirdre stephen MD Work Phone: [facility] Comment on above: Refill Request Start: 04-22-2023 End: 04-22-2023 Patient encounter procedure Spencer Lopez APRN.CHEF KITCHEN MANAGER Work Phone: [facility] Comment on above: Closed fracture of o ne rib of left side, initial encounter (Primary Dx); Rib injury Start: 04-22-2023 End: 04-22-2023 Subsequent hospital visit by physician Xr [facility] Work Phone: Radiology Comment on above: Rib injury [S29.9XXA ] Start: 04-19-2023 End: 04-19-2023 Emergency department patient visit Dr. Deirdre Quiñones Work Phone: [facility] Work Phone: Start: 04-19-2023 End: 04-19-2023 Patient encounter procedure Maura Morillo APRN.CHEF KITCHEN MANAGER Work Phone: [facility] Comment on above: Chest tightness (Helene josie Dx) Start: 04-19-2023 ambulatory Yolis Camarillo RN [facility] Start: 04-19-2023 Follow-up encounter Yolis meléndez RN NURSE IT PORTFOLIO MANAGER Comment on above: Covid Positive; Foll ow Up For Start: 04-19-2023 Refill Jay BOGGS RN.CHEF KITCHEN MANAGER Work Phone: [facility] Comment on above: Refill Request Start: 04-18-2023 Telephone encounter Deirdre coulter MD Work Phone: [facility] Comment on above: Patient Update Start: 03-06-2023 End: 03-06-[address] Deirdre Quiñones Work Phone: [facility] Work Phone: Start: 02-22-2023 End: 02-23-2023 Emergency department patient visit Deirdre Radhadeangelo Facility:[facility] Start: 02-22-2023 End: 02-23-2023 Emergency department patient visit [facility] Work Phone: Start: 02-05-2023 ambulatory [facility] Blanca [facility]Ps s) [facility] [place] Comment on above: Population Health Na vigation Outreach ([employer] [facility]) Start: 01-21-2023 Refill Deirdre stephen MD Work Phone: [facility] [place] Comment on above: Refill Request Start: 01-21-2023 Refill Silvia Vazquez APRN.CHEF KITCHEN MANAGER Work Phone: [facility] [place] Comment on above: Refill Request Start: 12-11-2022 ambulatory Sheree Blanca (Ps s) [facility] [place] Comment on above: Population Health Na vigation Outreach ([employer] [facility]) Start: 12-04-2022 Telephone encounter Deirdre coulter MD Work Phone: [facility] [place] Comment on above: Medication Problem Start: 11-22-2022 End: 11-22-2022 Subsequent hospital visit by physician Xr [facility] Work Phone: Radiology Comment on above: Acute hip pain, righ t [M25.551] Start: 11-22-2022 End: 11-22-2022 Emergency department patient visit Say Mauricio Facility:[facility] Start: 11-22-2022 End: 11-22-2022 Emergency department patient visit [facility] Work Phone: Start: 11-02-2022 Refill Jay BOGGS RN.CHEF KITCHEN MANAGER Work Phone: [facility] [place] Comment on above: Refill Request Start: 10-21-2022 Refill Deirdre stephen MD Work Phone: [facility] [place] Comment on above: Refill Request Start: 10-21-2022 Refill Jay BOGGS RN.CHEF KITCHEN MANAGER Work Phone: [facility] Comment on above: Refill Request Start: 10-04-2022 Telephone encounter Deirdre coulter MD Work Phone: [facility] Comment on above: Trulicity PA Start: 09-25-2022 Refill Jay BOGGS RN.CHEF KITCHEN MANAGER Work Phone: [facility] Comment on above: Refill Request Start: 09-24-2022 Telephone encounter Deirdre coulter MD Work Phone: [facility] Comment on above: handicap placard req uest Start: 09-17-2022 Refill Jay BOGGS RN.CHEF KITCHEN MANAGER Work Phone: [facility] Comment on above: Refill Request Start: 08-30-2022 Refill Silvia Vazquez APRN.CHEF KITCHEN MANAGER Work Phone: [facility] [place] Comment on above: Refill Request Start: 08-16-2022 Telephone encounter Deirdre coulter MD Work Phone: [facility] Comment on above: Results; Patient Upd ate; Patient Question Start: 08-15-2022 End: 08-15-2022 ambulatory [facility] Facility:[facility] Start: 08-11-2022 End: 08-11-2022 ambulatory [facility] Facility:[facility] Start: 08-01-2022 Telephone encounter Deirdre coulter MD Work Phone: [facility] Comment on above: Insurance Authorizat ion (Trulicity ) Start: 07-26-2022 Refill Deirdre stephen MD Work Phone: [facility] Comment on above: Refill Request Start: 07-23-2022 End: 07-23-2022 Refill Deirdre Quiñones MD Work Phone: [facility] Comment on above: Refill Request Start: 07-05-2022 End: 07-05-2022 Subsequent hospital visit by physician Xr [facility] [place] Work Phone: Radiology Comment on above: Hip pain [M25.559] Start: 07-04-2022 Telephone encounter Deirdre coulter MD Work Phone: [facility] [place] Comment on above: Patient Update Start: 06-27-2022 End: 06-27-2022 Patient encounter procedure Silvia Taylor LEUNG.CHEF KITCHEN MANAGER Work Phone: [facility] [place] Comment on above: Sciatica, right side (Primary Dx) Start: 06-20-2022 Refill Deirdre stephen MD Work Phone: [facility] [place] Comment on above: Refill Request Start: 06-02-2022 Refill Jay BOGGS RN.[facility] Work Phone: [facility] [place] Comment on above: Refill Request Start: 05-21-2022 Refill Deirdre stephen MD Work Phone: [facility] [place] Comment on above: Refill Request Start: 05-03-2022 Refill Deirdre stephen MD Work Phone: [facility] [place] Comment on above: Refill Request Trulicity Start: 04-21-2022 Refill Jay BOGGS RN.[facility] Work Phone: [facility] [place] Comment on above: Refill Request Start: 04-19-2022 Refill Jay BOGGS RN.[facility] Work Phone: [facility] [place] Comment on above: Refill Request Start: 04-05-2022 End: 04-05-2022 Patient encounter procedure Deirdre Quiñones MD Work Phone: [facility] [place] Comment on above: Uncontrolled type 2 diabetes mellitus with hyperglycemia (HCC) (Primary Dx); Mixed hyperlipidemia; Hypertension, unspecified type; Anxiety state; Fall, initial encounter; Hypothyroidism, unspecified type; Arthritis of both hands Start: 03-23-2022 Refill Deirdre stephen MD Work Phone: [facility] [place] Comment on above: Refill Request Start: 03-20-2022 Refill Jay Saravanan AP RN.CHEF KITCHEN MANAGER Work Phone: [facility] [place] Comment on above: Refill Request Start: 01-17-2022 Refill Deirdre stephen MD Work Phone: [facility] [place] Comment on above: Refill Request Start: 12-11-2021 Telephone encounter Silvia gaston APRN.CHEF KITCHEN MANAGER Work Phone: [facility] [place] Comment on above: Results Start: 11-24-2021 Telephone encounter Sami Sales MD Work Phone: [facility] [place] Comment on above: Medication Problem Start: 11-23-2021 Telephone encounter Sami Sales MD Work Phone: [facility] [place] Comment on above: Results Start: 11-23-2021 End: 11-23-2021 Subsequent hospital visit by physician Maranda [facility] [place] Work Phone: Radiology Comment on above: Viral URI with cough [J06.9] Start: 11-16-2021 End: 11-16-2021 Patient encounter procedure Maura Morillo APRN.CHEF KITCHEN MANAGER Work Phone: [facility] Comment on above: Congestion of nasal sinus (Primary Dx) Start: 11-14-2021 Telephone encounter Deirdre coulter MD Work Phone: [facility] [place] Comment on above: Patient Question; Pa tient Update Start: 10-20-2021 Refill Deirdre stephen MD Work Phone: [facility] [place] Comment on above: Refill Request Start: 09-29-2021 Telephone encounter Dierdre coulter MD Work Phone: Family [facility] [place] Comment on above: Results Start: 09-26-2021 End: 09-26-2021 Patient encounter procedure Deirdre Quiñones MD Work Phone: [facility] [place] Comment on above: Type 2 diabetes [...] 06-17-2024 Adult depression screening assessment Silvia Vazquez APRN.CHEF KITCHEN MANAGER Work Phone: Start: 04-22-2023 Radex ribs uni w/posteroant ch minimum 3 views Spencer Lopez DEBRIDGING MACHINE OPERATOR.CHEF KITCHEN MANAGER Work Phone: Start: 02-22-2023 Plain x-ray of pelvi s and lower extremity Start: 11-22-2022 Radex hip unilateral with pelvis 2-3 views David Alexis MD Work Phone: Start: 07-05-2022 Radex hips bilateral with pelvis minimum 5 views Silvia Vazquez DEBRIDGING MACHINE OPERATOR.CHEF KITCHEN MANAGER Work Phone: Start: 11-23-2021 Radiologic exam ches t 2 views Tahir Sales MD Work Phone: Start: 09-26-2021 Adult depression screening assessment Deirdre Quiñones MD Work Phone: Start: 05-11-2021 Antibody screen Comment on above: Order Comment: Speci men Type: BLOOD SPECIMEN Performed By: #### T SCR #### [facility] CLIA [id number] [address] Plan of Treatment Date Care Activity Detail Author Start: 02-09-2035 Urine microalbumin profile DTaP,Tdap,Td Vaccine (3 - Td or Tdap) [facility] Start: 09-23-2025 Annual PCP Team Electrostatic Paint Operator gilson Disease Visit Annual PCP Team Chronic Disease Visit [facility] Start: 09-23-2025 BP Controlled (<130/80) BP Controlle d (<130/80) [facility] Start: 09-21-2025 Glaucoma screening Dilated Retinal E xam [facility] Start: 06-17-2025 Annual PCP Team Electrostatic Paint Operator gilson Disease Visit Annual PCP Team Chronic Disease Visit [facility] Start: 06-17-2025 BP Controlled (<130/80) BP Controlle d (<130/80) [facility] Start: 06-17-2025 Depression Screening Depression Scre ening [facility] Start: 06-16-2025 Hepatitis B surface antibody level LDL Cholesterol [facility] Start: 03-08-2025 Influenza vaccination Influenza Vacc ine (#1) [facility] Start: 12-24-2024 End: 03-25-2025 Comprehensive metabolic 2000 panel - Serum or Plasma COMPREHENSIVE METABOLIC PANEL Lab Routine Mixed hyperlipidemia Expected: 12/24/2024, Expires: 03/25/2025 [facility] Comment on above: Expected: 12/24/2024 , Expires: 03/25/2025 Start: 12-24-2024 End: 03-25-2025 Hemoglobin A1c in Blood HEMOGLOBIN A1C Lab Routine Type 2 diabetes mellitus without complication, without long-term current use of insulin (HCC) Expected: 12/24/2024, Expires: 03/25/[address] [facility] Work Phone: Comment on above: Expected: 12/24/2024 , Expires: 03/25/2025 Start: 12-24-2024 End: 03-25-2025 Lipid 1996 panel - Serum or Plasma LIPID PANEL, FASTING Lab Routine Mixed hyperlipidemia Expected: 12/24/2024, Expires: 03/25/2025 [facility] Comment on above: Expected: 12/24/2024 , Expires: 03/25/2025 Start: 12-22-2024 Hemoglobin A1c measurement HbA1C [facility] Start: 09-23-2024 End: 09-23-2024 Patient encounter procedure [facility] Comment on above: 3 month follow up 3 month follow up / UACR due Start: 09-15-2024 End: 12-15-2024 Comprehensive metabolic 2000 panel - Serum or Plasma COMPREHENSIVE METABOLIC PANEL Lab Routine Type 2 diabetes mellitus without complication, without long-term current use of insulin (HCC) Expected: 09/15/2024, Expires: 12/15/[address] [facility] Work Phone: Comment on above: Expected: 09/15/2024 , Expires: 12/15/2024 Start: 09-15-2024 End: 12-15-2024 Hemoglobin A1c in Blood HEMOGLOBIN A1C Lab Routine Type 2 diabetes mellitus without complication, without long-term current use of insulin (HCC) Expected: 09/15/2024, Expires: 12/15/2024 [facility] Comment on above: Expected: 09/15/2024 , Expires: 12/15/2024 Start: 09-14-2024 Hemoglobin A1c measurement HbA1C [facility] Start: 07-08-2024 Advance Directive Discussion Advance Directive Discussion [facility] Start: 07-08-2024 Medicare Advantage Annual Wellness Visit Medicare Advantage Annual Wellness Visit [facility] Start: 06-08-2024 End: 06-08-2024 Patient encounter procedure 06/08/2024 10:40 AM EST Office Visit [facility] [address] [facility] [place] [id number] Silvia Vazquez, DEBRIDGING MACHINE OPERATOR.CHEF KITCHEN MANAGER [address] [facility] [place] [id number] [facility] Comment on above: [facility] Start: 05-25-2024 Covid-19 Vaccine () Covid-19 Vaccine () [facility] Start: 05-18-2024 End: 08-17-2024 CBC W Auto Differential panel - Blood COMPLETE BLOOD COUNT AND DIFFERENTIAL Lab Routine Hypertension, unspecified type Hypothyroidism, unspecified type Expected: 05/18/2024, Expires: 08/17/2024 [facility] Comment on above: Expected: 05/18/2024 , Expires: 08/17/2024 Start: 05-18-2024 End: 08-17-2024 Comprehensive metabolic 2000 panel - Serum or Plasma COMPREHENSIVE METABOLIC PANEL Lab Routine Type 2 diabetes mellitus without complication, without long-term current use of insulin (HCC) Mixed hyperlipidemia Expected: 05/18/2024, Expires: 08/17/2024 [facility] Comment on above: Expected: 05/18/2024 , Expires: 08/17/2024 Start: 05-18-2024 End: 08-17-2024 Hemoglobin A1c in Blood HEMOGLOBIN A1C Lab Routine Type 2 diabetes mellitus without complication, without long-term current use of insulin (HCC) Expected: 05/18/2024, Expires: 08/17/2024 [facility] Comment on above: Expected: 05/18/2024 , Expires: 08/17/2024 Start: 05-18-2024 End: 08-17-2024 Lipid 1996 panel - Serum or Plasma LIPID PANEL BASIC Lab Routine Type 2 diabetes mellitus without complication, without long-term current use of insulin (HCC) Mixed hyperlipidemia Expected: 05/18/2024, Expires: 08/17/2024 [facility] Comment on above: Expected: 05/18/2024 , Expires: 08/17/2024 Start: 05-18-2024 End: 08-17-2024 TSH W/REFLEX FT4 TSH W/REFLEX FT4 Lab Routine Hypothyroidism, unspecified type Expected: 05/18/2024, Expires: 08/17/[address] [facility] Work Phone: Comment on above: Expected: 05/18/2024 , Expires: 08/17/2024 Start: 04-29-2024 Annual PCP Team Electrostatic Paint Operator gilson Disease Visit Annual PCP Team Chronic Disease Visit [facility] Start: 04-29-2024 BP Controlled (<130/80) BP Controlle d (<130/80) [facility] Start: 04-10-2024 Annual PCP Team Electrostatic Paint Operator gilson Disease Visit Annual PCP Team Chronic Disease Visit [facility] Start: 03-08-2024 Covid-19 Vaccine ( season) Covid-19 Vaccine () [facility] Start: 03-08-2024 Covid-19 Vaccine () Covid-19 Vaccine () [facility] Start: 03-08-2024 Influenza vaccination Influenza Vacc ine (#1) [facility] Start: 07-29-2023 Covid-19 Vaccine ( season) Covid-19 Vaccine () [facility] Start: 07-08-2023 Advance Directive Discussion Advance Directive Discussion [facility] Start: 07-08-2023 Behavioral Health Screening Behavioral Health Screening [facility] Start: 06-27-2023 ANNUAL PCP TEAM TANDEM MILL STICKER GILSON DISEASE VISIT ANNUAL PCP TEAM CHRONIC DISEASE VISIT [facility] Start: 04-30-2023 Glaucoma screening Dilated Retinal E xam [facility] Start: 04-30-2023 Hepatitis C antibody , confirmatory test DILATED RETINAL EXAM [facility] Start: 04-29-2023 End: 07-29-2023 ALBUMIN/CREAT RATIO RND UR ALBUMIN/CREAT RATIO RND UR Lab Routine Type 2 diabetes mellitus without complication, without long-term current use of insulin (HCC) Expected: 04/29/2023, Expires: 07/29/[address] [facility] Work Phone: Comment on above: Expected: 04/29/2023 , Expires: 07/29/2023 Start: 04-29-2023 End: 07-29-2023 Comprehensive metabolic 2000 panel - Serum or Plasma COMP METABOLIC PANEL Lab Routine Type 2 diabetes mellitus without complication, without long-term current use of insulin (HCC) Expected: 04/29/2023, Expires: 07/29/[address] [facility] Work Phone: Comment on above: Expected: 04/29/2023 , Expires: 07/29/2023 Start: 04-29-2023 End: 07-29-2023 Hemoglobin A1c in Blood HGB A1C Lab Routine Type 2 diabetes mellitus without complication, without long-term current use of insulin (HCC) Expected: 04/29/2023, Expires: 07/29/[address] [facility] Work Phone: Comment on above: Expected: 04/29/2023 , Expires: 07/29/2023 Start: 04-29-2023 End: 07-29-2023 Lipid 1996 panel - Serum or Plasma LIPID PANEL BASIC Lab Routine Mixed hyperlipidemia Expected: 04/29/2023, Expires: 07/29/[address] [facility] Work Phone: Comment on above: Expected: 04/29/2023 , Expires: 07/29/2023 Start: 04-19-2023 [facility] Start: 04-05-2023 ANNUAL PCP TEAM TANDEM MILL STICKER GILSON DISEASE VISIT ANNUAL PCP TEAM CHRONIC DISEASE VISIT [facility] Start: 04-05-2023 BP CONTROLLED (<130/80) BP CONTROLLE D (<130/80) [facility] Start: 04-05-2023 Hepatitis B surface antibody level LDL CHOLESTEROL [facility] Start: 03-08-2023 Influenza vaccination INFLUENZA (#1) [facility] Start: 03-06-2023 Patient referral [facility] Work Phone: Start: 12-11-2022 End: 02-10-2023 ALBUMIN/CREAT RATIO RND UR ALBUMIN/CREAT RATIO RND UR Lab Routine Uncontrolled type 2 diabetes mellitus with hyperglycemia (HCC) Expected: 12/11/2022, Expires: 02/10/[address] [facility] Work Phone: Comment on above: Expected: 12/11/2022 , Expires: 02/10/2023 Start: 12-11-2022 End: 02-10-2023 Comprehensive metabolic 2000 panel - Serum or Plasma COMP METABOLIC PANEL Lab Routine Uncontrolled type 2 diabetes mellitus with hyperglycemia (HCC) Mixed hyperlipidemia Expected: 12/11/2022, Expires: 02/10/[address] [facility] Work Phone: Comment on above: Expected: 12/11/2022 , Expires: 02/10/2023 Start: 12-11-2022 End: 02-10-2023 Hemoglobin A1c in Blood HGB A1C Lab Routine Uncontrolled type 2 diabetes mellitus with hyperglycemia (HCC) Expected: 12/11/2022, Expires: 02/10/[address] [facility] Work Phone: Comment on above: Expected: 12/11/2022 , Expires: 02/10/2023 Start: 12-11-2022 End: 02-10-2023 Lipid 1996 panel - Serum or Plasma LIPID PANEL BASIC Lab Routine Uncontrolled type 2 diabetes mellitus with hyperglycemia (HCC) Mixed hyperlipidemia Expected: 12/11/2022, Expires: 02/10/[address] [facility] Work Phone: Comment on above: Expected: 12/11/2022 , Expires: 02/10/2023 Start: 11-30-2022 COVID-19 VACCINE (6 - Pfizer series) COVID-19 VACCINE (6 - Pfizer series) [facility] Start: 11-23-2022 ANNUAL PCP TEAM TANDEM MILL STICKER GILSON DISEASE VISIT ANNUAL PCP TEAM CHRONIC DISEASE VISIT [facility] Start: 11-16-2022 BP CONTROLLED (<130/80) BP CONTROLLE D (<130/80) [facility] Start: 11-12-2022 Hemoglobin A1c measurement HbA1C [facility] Start: 05-08-2023 Hemoglobin A1c/Hemoglobin.total in Blood HBA1C [facility] Start: 09-26-2022 Adult depression screening assessment DEPRESSION SCREENING [facility] Start: 09-26-2022 ANNUAL PCP TEAM TANDEM MILL STICKER GILSON DISEASE VISIT ANNUAL PCP TEAM CHRONIC DISEASE VISIT [facility] Start: 09-26-2022 BP CONTROLLED (<130/80) BP CONTROLLE D (<130/80) [facility] Start: 09-26-2022 Hepatitis B screening URINE AL BUMIN:CREATININE RATIO [facility] Start: 09-26-2022 Hepatitis B surface antibody level LDL CHOLESTEROL [facility] Start: 09-26-2022 HEPATIT[facility] Comment on above: Postponed from 10/24 (Declined at this time) Start: 07-08-2022 ADVANCE DIRECTIVE DISCUSSION ADVANCE DIRECTIVE DISCUSSION [facility] Start: 07-08-2022 DEPRESSION ASSESSMENT DEPRESSION ASS ESSMENT [facility] Start: 07-05-2022 End: 09-04-2022 Comprehensive metabolic 2000 panel - Serum or Plasma COMP METABOLIC PANEL Lab Routine Mixed hyperlipidemia Uncontrolled type 2 diabetes mellitus with hyperglycemia (HCC) Expected: 07/05/2022 (Approximate), Expires: 09/04/[address] [facility] Work Phone: Comment on above: Expected: 07/05/2022 (Approximate), Expires: 09/04/2022 Start: 07-05-2022 End: 09-04-2022 Hemoglobin A1c in Blood HGB A1C Lab Routine Uncontrolled type 2 diabetes mellitus with hyperglycemia (HCC) Expected: 07/05/2022 (Approximate), Expires: 09/04/[address] [facility] Work Phone: Comment on above: Expected: 07/05/2022 (Approximate), Expires: 09/04/2022 Start: 07-05-2022 Hemoglobin A1c/Hemoglobin.total in Blood HBA1C [facility] Start: 04-16-2022 COVID-19 VACCINE (5 - Booster for Pfizer series) COVID-19 VACCINE (5 - Booster for Pfizer series) [facility] Start: 03-29-2022 End: 05-29-2022 Comprehensive metabolic 2000 panel - Serum or Plasma COMP METABOLIC PANEL Lab Routine Mixed hyperlipidemia Hypertension, unspecified type Type 2 diabetes mellitus without complication, without long-term current use of insulin (HCC) Expected: 03/29/2022 (Approximate), Expires: 05/29/[address] [facility] Work Phone: Comment on above: Expected: 03/29/2022 (Approximate), Expires: 05/29/2022 Start: 03-29-2022 End: 05-29-2022 Hemoglobin A1c/Hemoglobin.total in Blood HGB A1C Lab Routine Type 2 diabetes mellitus without complication, without long-term current use of insulin (HCC) Expected: 03/29/2022 (Approximate), Expires: 05/29/[address] [facility] Work Phone: Comment on above: Expected: 03/29/2022 (Approximate), Expires: 05/29/2022 Start: 03-29-2022 End: 05-29-2022 LIPID PANEL BASIC LIPID PANEL BASIC Lab Routine Mixed hyperlipidemia Hypertension, unspecified type Type 2 diabetes mellitus without complication, without long-term current use of insulin (HCC) Expected: 03/29/2022 (Approximate), Expires: 05/29/[address] [facility] Work Phone: Comment on above: Expected: 03/29/2022 (Approximate), Expires: 05/29/2022 Start: 03-29-2022 End: 05-29-2022 Thyrotropin [Units/volume] in Serum or Plasma TSH BLD Lab Routine Hypothyroidism, unspecified type Expected: 03/29/2022 (Approximate), Expires: 05/29/[address] [facility] Work Phone: Comment on above: Expected: 03/29/2022 (Approximate), Expires: 05/29/2022 Start: 03-08-2022 Influenza vaccination INFLUENZA (#1) [facility] Start: 12-27-2021 Hemoglobin A1c/Hemoglobin.total in Blood HBA1C [facility] Start: 08-09-2021 COVID-19 VACCINE (4 - Booster for Pfizer series) COVID-19 VACCINE (4 - Booster for Pfizer series) [facility] Start: 07-08-2021 DEPRESSION ASSESSMENT DEPRESSION ASS ESSMENT [facility] Start: 08-25-2020 3 comp foot exam completed DIABETIC FOOT EXAM [facility] Start: 08-25-2020 Diabetic foot examination Diabetic Foot Exam [facility] Start: 10-24-2018 RSV Vaccine (1 - 1-d ose 75+ series) RSV Vaccine (1 - 1-dose 75+ series) [facility] Start: 02-26-2017 Urine microalbumin profile [facility] Start: 04-07-2016 Hepatitis C antibody , confirmatory test DILATED RETINAL EXAM [facility] Start: 2003 Hepatitis B Vaccine (1 of 3 - Risk 3-dose series) Hepatitis B Vaccine (1 of 3 - Risk 3-dose series) [facility] Start: 2003 RSV Vaccine (1 - 1-d ose 60+ series) RSV Vaccine (1 - 1-dose 60+ series) [facility] Start: 10-24-1961 BP CONTROLLED (<130/80) BP CONTROLLE D (<130/80) [facility] Start: 10-24-1961 Depression Screening Depression Scre ening [facility] Start: 10-24-1961 HEPATITIS C SCREENING HEPATITIS C SC REENING [facility] Start: 10-24-1961 Spirometry Spirometry [facility] Patient Education [facility] Work Phone: Patient referral [facility] Work Phone: [facility] Immunizations Immunization Date Immunization Notes Care Provider Zane pastor 02-09-2025 influenza, high dose seasonal, preservative-free Deirdre Quiñones MD Work Phone: [facility] 02-09-2025 tetanus toxoid, redu regis diphtheria toxoid, and acellular pertussis vaccine, adsorbed Deirdre Quiñones MD Work Phone: [facility] 03-30-2024 COVID-19 original vaccine, age 12+ yr, monovalent (PFIZER-BIONTRateSetter - DAWSON TOP) Silvia Vazquez APRN.CHEF KITCHEN MANAGER Work Phone: [facility] 03-30-2024 influenza (HD-IIV4) vaccine, age 65+ yr, high dose, quadrivalent, PF (FLUZONE HIGH-DOSE) Silvia Vazquez APRN.CHEF KITCHEN MANAGER Work Phone: [facility] 03-30-2024 respiratory syncytia l virus (RSV) vaccine, adjuvanted (AREXVY) Silvia Vazquez DEBRIDGING MACHINE OPERATOR.CHEF KITCHEN MANAGER Work Phone: [facility] 03-30-2024 influenza virus vacc ine, unspecified formulation Deirdre Quiñones MD Work Phone: [facility] 03-29-2023 influenza virus vacc ine, unspecified formulation Deirdre Quiñones MD Work Phone: [facility] 08-02-2022 COVID-19 booster vaccine, age 12+ yr, bivalent (PFIZER-BIONTECH) Deirdre Quiñones MD Work Phone: [facility] 04-02-2022 influenza (aIIV4) vaccine, age 65+ yr, quadrivalent, PF (FLUAD QUADRIVALENT) Deirdre Quiñones MD Work Phone: [facility] 02-19-2022 COVID-19 vaccine, ag e 12+ yr (PFIZER-BIONTECH - DAWSON TOP) Jay Tran DEBRIDGING MACHINE OPERATOR.CHEF KITCHEN MANAGER Work Phone: [facility] 09-07-2020 COVID-19 vaccine, ag e 12+ yr (PFIZER-BIONTECH - PURPLE TOP) Deirdre Quiñones MD Work Phone: [facility] 08-16-2020 COVID-19 vaccine, ag e 12+ yr (PFIZER-BIONTECH - PURPLE TOP) Deirdre Quiñones MD Work Phone: [facility] 04-20-2020 influenza (aIIV4) vaccine, age 65+ yr, quadrivalent, PF (FLUAD QUADRIVALENT) Deirdre Quiñones MD Work Phone: [facility] 04-20-2020 influenza, seasonal, injectable Deirdre Quiñones MD Work Phone: [facility] 04-20-2020 zoster vaccine recombinant Deirdre Quiñones MD Work Phone: [facility] 03-31-2019 influenza, high dose seasonal, preservative-free Deirdre Quiñones MD Work Phone: [facility] 03-25-2019 zoster vaccine recombinant Deirdre Quiñones MD Work Phone: [facility] 04-05-2018 influenza, high dose seasonal, preservative-free Deirdre Quiñones MD Work Phone: [facility] 04-22-2017 influenza, injectabl e, quadrivalent, contains preservative Deirdre Quiñones MD Work Phone: [facility] Work Phone: 04-07-2015 influenza, seasonal, injectable Deirdre Quiñones MD Work Phone: [facility] 03-08-2015 zoster vaccine, live Deirdre fischer MD Work Phone: [facility] 11-10-2014 pneumococcal conjuga te vaccine, 13 valent Deirdre Quiñones MD Work Phone: [facility] 05-13-2014 influenza, seasonal, injectable Deirdre Quiñones MD Work Phone: [facility] 04-08-2013 influenza virus vacc ine, unspecified formulation Deirdre Quiñones MD Work Phone: [facility] 06-20-2010 influenza virus vacc ine, unspecified formulation Deirdre Quiñones MD Work Phone: [facility] 06-20-2010 pneumococcal polysaccharide vaccine, 23 valent Deirdre Quiñones MD Work Phone: [facility] 05-17-2009 novel influenza-H1N1 -09, all formulations Deirdre Quiñones MD Work Phone: [facility] 05-13-2009 influenza virus vacc ine, unspecified formulation Deirdre Quiñones MD Work Phone: [facility] 05-13-2008 influenza virus vacc ine, unspecified formulation Deirdre Quiñones MD Work Phone: [facility] Work Phone: 06-27-2007 influenza virus vacc ine, unspecified formulation Deirdre Quiñones MD Work Phone: [facility] 02-26-2007 tetanus toxoid, redu regis diphtheria toxoid, and acellular pertussis vaccine, adsorbed Deirdre Quiñones MD Work Phone: [facility] Work Phone: 05-24-2006 influenza virus vacc ine, unspecified formulation Deirdre Quiñones MD Work Phone: [facility] Payers Date Payer Category Payer Medicare (Managed Care) [employer]US [id number] 2022 Private Health Insurance [id number] 2022 Self-pay [id number] 2021 Medicare HU[employer]NA MEDICARE [employer] GOLD PLUS [id number] 2021-Present [phone] [place] [id number] [place] [id number] 2021 Medicare [id number] Private Health Insurance [employer] [facility] [id number] Unknown [id number] Unknown [id number] Unknown [id number] Unknown [id number] Unknown [id number] Unknown [id number] Social History Date Type Detail Facility Start: 05-19-2018 End: 06-17-2024 Tobacco smoking status NHIS Smokes tobacco daily [facility] History of tobacco use Cigarette Smoker [facility] Work Phone: Start: 09-26-2021 End: 09-23-2024 Alcohol intake Current drinker of alcohol (finding) [facility] Start: 09-14-2020 End: 06-26-2022 History SDOH Alcohol Frequency 2 [facility] Start: 09-14-2020 End: 06-26-2022 History SDOH Alcohol Std Drinks 1 [facility] Start: 07-02-2007 History SDOH Alcohol Comment occasionally, 2 mixed drinks per month [facility] Start: 09-14-2020 End: 06-26-2022 History SDOH Social Connections Phone 5 [facility] Start: 09-14-2020 End: 06-26-2022 History SDOH Social Connections [facility] 3 [facility] Start: 09-14-2020 End: 06-26-2022 History SDOH Financial 4 [facility] Start: 09-14-2020 Education 18 [facility] Start: 05-19-2018 End: 04-05-2022 Tobacco Comment Smoking 3 cigarettes per day [facility] Start: 1945 Sex Assigned At Not on file [facility] Start: 09-16-2021 End: 04-05-2022 Exposure to SARS-CoV-2 (event) Not sure [facility] Start: 11-22-2021 History SDOH Alcohol Std Drinks 98 [facility] Start: 05-19-2018 End: 04-29-2023 Cigarettes smoked current (pack per day) - Reported 0.3 [facility] Start: 05-19-2018 End: 06-17-2024 Tobacco use and exposure Smokeless tobacco non-user [facility] Start: 06-26-2022 History SDOH Alcohol Std Drinks 0 [facility] Start: 06-26-2022 End: 04-29-2023 Social connection and isolation panel [facility] Do you belong to any clubs or organizations such as muslim groups, unions, fraternal or athletic groups, or school groups? Yes [facility] Are you now , , , , never or living with a partner? [facility] Start: 06-08-2012 Frequency of Alcohol Consumption Not on file [facility] How often do you hav e 6 or more drinks on 1 occasion? Never [facility] How hard is it for y ou to pay for the very basics like food, housing, medical care, and heating Not very hard [facility] Do you feel stress - tense, restless, nervous, or anxious, or unable to sleep at night because your mind is troubled all the time - these days [OSQ] Only a little [facility] (I/We) worried jocelyne er (my/our) food would run out before (I/we) got money to buy more. Never true [facility] In the past 12 month s, was there a time when you were not able to pay the mortgage or rent on time? No [facility] Start: 02-22-2023 End: 04-19-2023 Tobacco smoking status NHIS Unknown if ever smoked [facility] Start: 1945 Sex Assigned At Female [facility] How often to you hav e a drink containing alcohol? Monthly or less [facility] Functional Status Date Assessment Result Facility 05-13-2021 Are you deaf, or do you have serious difficulty hearing No 05/13/2021 11:32 AM Dalia Grimes, NURYS No [facility] 05-13-2021 Are you blind, or do you have serious difficulty seeing, even when wearing glasses No 05/13/2021 11:32 AM Dalia Grimes, NURYS No [facility] 05-13-2021 Do you have serious difficulty walking or climbing stairs No 05/13/2021 11:32 AM Dalia Grimes, RN No [facility] 05-13-2021 Do you have difficul ty dressing or bathing No 05/13/2021 11:32 AM Dalia Grimes, RN No [facility] 05-13-2021 Because of a physica l, mental, or emotional condition, do you have difficulty doing errands alone such as visiting a physician's office or shopping No 05/13/2021 11:32 AM EDT Dalia Gallardo RN No [facility] Mental Status Date Assessment Result Facility 05-13-2021 Because of a physica l, mental, or emotional condition, do you have serious difficulty concentrating, remembering, or making decisions No 05/13/2021 11:32 AM EDT Dalia Gallardo RN No [facility] Clinical Notes 05-13-2014 to 03-12-2025 Telephone Encounter [...] by mouth once daily. Jay Tran APRN.CNP [facility] 03-12-2025 Miscellaneous Notes The following approved medication [...] by mouth once daily. [facility] March 12, 2025 9:09 AM documented in this encounter [facility] 03-12-2025 Telephone encounter Note Prescription Refill Information [...] tablet by mouth once daily. Irina [facility] March 12, 2025 9:09 AM [facility] 01-19-2025 Telephone encounter Note Approved. [facility] website checked and validated. All prescriptions [...] 90 days. Authorizing Provider: JAY TRAN APRN.CNP [facility] 01-19-2025 Miscellaneous Notes Approved. PDMP website checked [...] 2025 10:40 AM documented in this encounter [facility] 01-19-2025 Telephone encounter Note Prescription Refill Information [...] Penny LPN January 19, 2025 10:40 AM [facility] 12-03-2024 Note HNO ID: [id number] Author: SILVIA HOGUE CPhT Service: ? Author Type: Natural Gas Treating Unit Operator Type: Progress Notes Filed: 12/03/2024 13:19 Note Text: Patient is identified through a medication adherence outreach initiative based on pharmacy claims data from: [employer] Medication Adherence Category: Hypertension First Review Attribution [...] Hogue CPhT Value Based Care Pharmacy Team [facility] 12-03-2024 History of Present illness Narrative Patient is identified through a medication adherence outreach initiative based on pharmacy claims data from: [employer] Medication Adherence Category: Hypertension First Review Attribution [...] Care Pharmacy Team documented in this encounter [facility] 12-03-2024 Note Patient Outreach ([facility]) SHEREE CHAVEZ ([id number]) 1945 F Date Time Provider Department 12/03/24 DEIRDRE QUIÑONES During your visit today, we recorded the following information about you: Silvia Hogue CPhT 12/03/2024 1:19 PM Signed Patient is identified through a medication adherence outreach initiative based on pharmacy claims data from: [employer] Medication Adherence Category: Hypertension First Review Attribution [...] primary intervention? No intervention Silvia Hogue CPhT [facility] Pharmacy Team Allergies As of Date: [...] Encounter Status:Closed by SILVIA HOGUE on 12/03/24 [facility] 12-01-2024 Telephone encounter Note Images from the original note were not included. Electronic PA rec'd and completed for ozempic ANNY. This was completed and approved. Prior authorization approved Payer: [employer] PBM Part D [phone] Note from payer: Request Reference Number: [id number]. OZEMPIC INJ 2MG/3ML is approved through 07/07/2025. Your patient may now fill this prescription and it will be covered. Approval Details Authorization number: [id number] Authorized from December 01, 2024 to July [...] to its destination. To be filled at: [id number] [place] [address] - [address] [phone] Pt notified via my chart. [facility] 12-01-2024 Miscellaneous Notes Images from the original note were not included. Electronic PA rec'd and completed for ozempic ANNY. This was completed and approved. Prior authorization approved Payer: [employer] PBM Part D [phone] Note from payer: Request Reference Number: [id number]. OZEMPIC INJ 2MG/3ML is approved through 07/07/2025. Your patient may now fill this prescription and it will be covered. Approval Details Authorization number: [id number] Authorized from December 01, 2024 to July 07, 2025 Electronic appeal: Not supported View History Notes Time User Attachment Attachment received from payer. 12/01/2024 8:31 AM [facility], Rx Priorauth In Document Medication Being Authorized OZEMPIC 0.25 mg or 0.5 mg (2 mg/3 mL) pen Inject 0.5 mg subcutaneously one time a week. Dispense: 3 mL Refills: 2 ANNY Start: 12/01/2024 End: 03/01/2025 Class: Normal Diagnoses: Type 2 diabetes mellitus without complication, without long-term current use of insulin (HCC) This order has been released to its destination. To be filled at: [facility] [id number] [place] [address] - [address] [phone] Pt notified via my chart. documented in this encounter [facility] 12-01-2024 Telephone encounter Note The following approved medication requests have been transmitted electronically. Requested Prescriptions Pending Prescriptions Disp Refills OZEMPIC 0.25 mg or 0.5 mg (2 mg/3 mL) pen 3 mL 2 Sig: Inject 0.5 mg subcutaneously one time a week. Jay Tran APRN.CNP [facility] 12-01-2024 Miscellaneous Notes The following approved medication [...] 2024 7:57 AM documented in this encounter [facility] 12-01-2024 Telephone encounter Note Prescription Refill Information [...] Blair LPN December 01, 2024 7:57 AM [facility] 11-02-2024 Note HNO ID: [id number] Author: ?, ?, ? Service: ? Author [...] Contacted: Unable or unnecessary to reach patient: [email or web address] message sent HCC related Navigation Signature: Suze Reid November 02, 2024 12:12 PM [facility] 11-02-2024 Note Patient Outreach ([facility]) SHEREE CHAVEZ ([id number]) 1945 F Date Time Provider Department 11/02/24 DEIRDRE QUIÑONES During your visit today, we recorded the following information about you: Suze Crawford 11/02/2024 12:13 PM Signed POPULATION HEALTH NAVIGATION OUTREACH Action/FYI Patient outreach for HCC gaps; KED. Pt is due for the rest of their KED labs. [employer]hart sent to close gaps. Reason for Outreach Care Gap/HCC or Scheduling Wellness Visits Care Gaps due: KED Patient Contacted: Unable or unnecessary to reach patient: [employer] message sent HCC related Navigation Signature: Suze [...] Encounter Status:Closed by SUZE CRAWFORD on 11/02/24 [facility] 10-23-2024 Note HNO ID: [id number] Author: DENISE EDWARD RN Service: ? Author [...] - Bi-Weekly Outreach (Recurring) Disposition Based on irrigation installation specialist, the following disposition is advised: No action needed Denise Edward RN October 23, 2024 5:01 PM [facility] 10-23-2024 History of Present illness Narrative [...] - Bi-Weekly Outreach (Recurring) Disposition Based on irrigation installation specialist, the following disposition is advised: No action needed Denise Edward RN October 23, 2024 5:01 PM documented in this encounter [facility] 10-23-2024 Note Patient Outreach ([facility]) SHEREE CHAVEZ ([id number]) 1945 F Date Time Provider Department 10/23/24 [...] - Bi-Weekly Outreach (Recurring) Disposition Based on irrigation installation specialist, the following disposition is advised: No action [...] 05/19/2018: Takes Multi-vitami (more content not included)... [facility] 10-19-2024 Telephone encounter Note OK to refill as ordered Deirdre Quiñones MD [facility] 10-19-2024 Miscellaneous Notes OK to refill as [...] 2024 6:24 PM documented in this encounter [facility] 10-19-2024 Telephone encounter Note The patient has [...] Ross RN October 19, 2024 6:24 PM [facility] 10-16-2024 Telephone encounter Note Telephoned the patient to schedule a new Primary Care pharmacy appt. Left a message. Made two attempts to contact the patient. Patient was sent [employer] message. If the patient returns a call, an appt will be scheduled. Encounter routed to the clinical pharmacist. [facility] 10-16-2024 Miscellaneous Notes Telephoned the patient to schedule a new Primary Care pharmacy appt. Left a message. Made two attempts to contact the patient. Patient was sent [email or web address] message. If the patient returns a call, an appt will be scheduled. Encounter routed to the clinical pharmacist. Telephoned the patient to schedule a new Primary Care pharmacy appt. Left a message. documented in this encounter [facility] 10-14-2024 Telephone encounter Note Telephoned the patient to schedule a new Primary Care pharmacy appt. Left a message. [facility] 10-13-2024 History of Present illness Narrative Primary [...] Callahan PharmD, ANAYA documented in this encounter [facility] 10-13-2024 Note HNO ID: [id number] Author: MESFIN CALLAHAN RPh Service: ? Author [...] types. Thank you, Mesfin Callahan PharmD, ANAYA [facility] 10-13-2024 Note Patient Outreach (PM STOW) SHEREE CHAVEZ ([id number]) 1945 F Date Time Provider Department 10/13/24 [...] Fully Assessed Reason for Visit: Care Coordination [6461] Cmt: Referred to Pharmacy for Diabetes Management Primary Visit Diagnosis:Type 2 diabetes mellitus with other specified complication, without long-term current use of insulin (HCC) [E11.69] Order(s):CONSULT TO PHARMACY [821633] Order #: [id number]: 1 Prescriptions as of 10/13/2024 - fluticasone [...] Encounter Status:Closed by MESFIN CALLAHAN on 10/13/24 [facility] 09-25-2024 Telephone encounter Note The following [...] one time a week. Jay Tran APRN.CNP [facility] 09-25-2024 Miscellaneous Notes The following approved medication [...] that the script that were sent to [facility] pharmacy should have been sent to [facility] and not [facility]. Script pended and correct pharmacy selected. documented in this encounter [facility] 09-25-2024 Telephone encounter Note Patient called stating that the script that were sent to [facility] pharmacy should have been sent to [facility] and not [facility]. Script pended and correct pharmacy selected. [facility] 09-24-2024 Note HNO ID: [id number] Author: SCARLETT STONE MA Service: ? Author Type: Wood Car Builder Type: Progress Notes Filed: 09/24/2024 14:22 Note [...] to reach patient: Unable to leave message [employer] message sent HCC related Navigation Signature: Scarlett Stone MA September 24, 2024 2:20 PM [facility] 09-24-2024 History of Present illness Narrative [...] to reach patient: Unable to leave message [employer] message sent HCC related Navigation Signature: Scarlett Stone MA September 24, 2024 2:20 PM documented in this encounter [facility] 09-24-2024 Note Patient Outreach ([facility]) SHEREE CHAVEZ ([id number]) 1945 F Date Time Provider Department 09/24/24 [...] to reach patient: Unable to leave message [employer] message sent HCC related Navigation Signature: Scarlett [...] Encounter Status:Closed by SCARLETT STONE on 09/24/24 [facility] 09-23-2024 Instructions Silvia Vazquez APRN.CNP - 09/23/2024 9:35 AM EDT Get repeat fasting labs completed prior to next visit Increase Ozempic to 0.5 mg once weekly Continue with low carb diet, increase protein and vegetable intake May consider Dora or Dexcom, glucose monitor Follow up in 3 months or sooner as needed documented in this encounter [facility] 09-23-2024 History of Present illness Narrative This [...] APRN.MANDY This note was partially generated using [employer] recognition system. Note was reviewed for accuracy. There may be minor misspellings or grammar miscues with [employer] voice recognition. documented in this encounter [facility] 09-23-2024 Note HNO ID: [id number] Author: SILVIA VAZQUEZ APRN.CNP Service: ? Author [...] Cigarettes Smokeless tobacco: (more content not included)... [facility] 09-11-2024 Note HNO ID: [id number] Author: DNEISE EDWARD RN Service: ? Author Type: Registered [...] - Initial enrollment outreach Disposition Based on irrigation installation specialist, the following disposition is advised: No action needed Denise Edward RN September 11, 2024 11:08 AM [facility] 09-11-2024 History of Present illness Narrative [...] has the electric, gas, oil, or water [employer] threatened to shut off services in your home?: No Tobacco Use Patient reports that she has been smoking cigarettes. She has a 7.5 pack-year smoking history. She has never used smokeless tobacco. Interventions The following were addressed during this visit: - Initial enrollment outreach Disposition Based on irrigation installation specialist, the following disposition is advised: No action needed Denise Edward RN September 11, 2024 11:08 AM documented in this encounter [facility] 09-11-2024 Note Patient Outreach ([facility]) SHEREE CHAVEZ ([id number]) 1945 F Date Time Provider Department 09/11/24 DENISE EDWARD [facility] During your visit today, we recorded the [...] In the past 12 months has the Oration, gas, oil, or water [employer] threatened to shut off services in your home?: No Tobacco Use Patient reports that she has been smoking cigarettes. She has a 7.5 pack-year smoking history. She has never used smokeless tobacco. Interventions The following were addressed during this visit: - Initial enrollment outreach Disposition Based on irrigation installation specialist, the following disposition is advised: No action [...] wheezing/shortness of benjie (more content not included)... [facility] 08-26-2024 Note HNO ID: [id number] Author: BONNIE DIOP MA Service: ? Author Type: Wood Car Builder Type: Progress Notes Filed: 08/26/2024 08:25 Note [...] Tucker MA August 26, 2024 8:24 AM [facility] 08-21-2024 Note HNO ID: [id number] Author: BONNIE DIOP MA Service: ? Author Type: Wood Car Builder Type: Progress Notes Filed: 08/21/2024 11:36 Note [...] or unnecessary to reach patient: Left message [employer] message sent Navigation Signature: Bonnie Tucker MA August 21, 2024 11:25 AM [facility] 08-21-2024 History of Present illness Narrative [...] or unnecessary to reach patient: Left message [employer] message sent Navigation Signature: Bonnie Tucker MA August 21, 2024 11:25 AM documented in this encounter [facility] 08-21-2024 Note Patient Outreach (ANTHONY TNAV) SHEREE CHAVEZ ([id number]) 1945 F Date Time Provider Department 08/21/24 [...] HEALTH NAVIGATION OUTREACH Action/FYI Patient replies via [employer] - has outside eye exam scheduled. Declines [...] Subdural hematoma ( (more content not included)... [facility] 07-22-2024 Telephone encounter Note [facility]. [facility]. All prescriptions have [...] 90 days. Authorizing Provider: JAY TRAN APRN.CNP [facility] 07-22-2024 Miscellaneous Notes Approved. [facility] checked and validated. All prescriptions have [...] 2024 7:18 AM documented in this encounter [facility] 07-22-2024 Telephone encounter Note Prescription Refill Information [...] Valentino LPN July 22, 2024 7:18 AM [facility] 06-17-2024 Instructions Silvia Vazquez APRN.CNP - 06/17/2024 [...] review all the medicines you take, even ptyb-dpg-onswecp medicines. As you get older, the way [...] certain medical conditions. documented in this encounter [facility] 06-17-2024 History of Present illness Narrative Images [...] APRN.CNP This note was partially generated using [employer] voice recognition system. Note was reviewed for accuracy. There may be minor misspellings or grammar miscues with [employer] voice recognition. documented in this encounter [facility] 06-17-2024 Note HNO ID: [id number] Author: SILVIA VAZQUEZ APRN.CNP Service: ? Author [...] daily before benjie (more content not included)... [facility] 05-18-2024 Telephone encounter Note Left message that lab orders are in. Kamille Nova LPN [facility] 05-18-2024 Miscellaneous Notes Left message that lab [...] mouth once daily. Authorizing Provider: JAY TRAN APRN.CHEF KITCHEN MANAGER Prescription Refill Information The patient has been [...] 2024 11:59 AM documented in this encounter [facility] 05-18-2024 Telephone encounter Note Labs ordered Deirdre Quiñones MD [facility] 05-18-2024 Telephone encounter Note Spoke with pt and her Medicare Wellness apt has been booked for 06/08/24. Pt reports she will be due for fasting lab work. Please advise pt when fasting blood work is in. Orders pended, please review and add or delete. Kamille Nova LPN [facility] 05-18-2024 Telephone encounter Note Patient is due for a yearly visit. 90 days sent in. The following approved medication requests have been transmitted electronically. Requested Prescriptions Signed Prescriptions Disp Refills glimepiride (AMARYL) 4 mg tablet 90 tablet 0 Sig: Take 1 tablet by mouth once daily. Authorizing Provider: JAY TRAN APRN.CHEF KITCHEN MANAGER [facility] 05-18-2024 Telephone encounter Note Prescription Refill Information [...] Kincaid MA May 18, 2024 11:59 AM [facility] 04-24-2024 Telephone encounter Note The patient has [...] West LPN April 24, 2024 11:04 AM [facility] 04-24-2024 Miscellaneous Notes The patient has been [...] 2024 11:04 AM documented in this encounter [facility] 04-20-2024 Telephone encounter Note OK to refill as ordered Deirdre Quiñones MD [facility] 04-20-2024 Miscellaneous Notes OK to refill as [...] 2024 1:47 PM documented in this encounter [facility] 04-20-2024 Telephone encounter Note Prescription Refill Information [...] Blair LPN April 20, 2024 1:47 PM [facility] 01-17-2024 Telephone encounter Note The following approved [...] identified. 01/17/2024 by Silvia Vazquez APRN.MANDY T [facility] 01-17-2024 Miscellaneous Notes The following approved medication [...] 2024 10:05 AM documented in this encounter [facility] 01-17-2024 Telephone encounter Note Gabapentin and Claritin requested in other refill request. Kourtney Kincaid MA [facility] 01-17-2024 Miscellaneous Notes Gabapentin and Claritin requested in other refill request. Kourtney Kincaid MA documented in this encounter [facility] 01-17-2024 Telephone encounter Note Xanax and lisinopril requested in other refill request. [facility] 01-17-2024 Miscellaneous Notes Xanax and lisinopril requested in other refill request. documented in this encounter [facility] 01-17-2024 Telephone encounter Note Prescription Refill Information [...] Kincaid MA January 17, 2024 10:05 AM [facility] 10-22-2023 Miscellaneous Notes OK to refill as ordered Deirdre Quiñones MD documented in this encounter [facility] 10-22-2023 Miscellaneous Notes OK to refill as [...] Kourtney Kincaid MA. documented in this encounter [facility] 04-29-2023 Instructions Silvia Vazquez APRN.MANDY - 04/29/2023 [...] pending lab results. documented in this encounter [facility] 04-29-2023 History of Present illness Narrative Medicare [...] Glaucoma screening - Lipid panel Silvia Vazquez APRN.CHEF KITCHEN MANAGER This is a 77 year old female [...] diet of 1000 mg/day for under 50, [id number] mg/day for 50+ - Discussed need and [...] discussed and patient voices understanding. Silvia Vazquez APRN.CHEF KITCHEN MANAGER This note was partially generated using [employer] voice recognition system. Note was reviewed for accuracy. There may be minor misspellings or grammar miscues with [employer] voice recognition. documented in this encounter [facility] 04-25-2023 Miscellaneous Notes Spoke with pt and [...] Tanisha Connors RN. documented in this encounter [facility] 04-22-2023 History of Present illness Narrative Radiology [...] 2023 12:16 PM documented in this encounter [facility] 04-22-2023 History of Present illness Narrative Images [...] rib. Dictated by : MD Spencer NANCE APRN.CHEF KITCHEN MANAGER documented in this encounter [facility] 04-19-2023 History of Present illness Narrative Came in with complaints of chest tightness and shortness of breath. Patient says it is hard to take a deep breath in. Patient recently had COVID. At this time patient is being referred to the emergency room for an evaluation. Patient is okay with this and wants to take her self. documented in this encounter [facility] 04-19-2023 Miscellaneous Notes Reason for Call: Still testing COVID positive, fatigue, sinus congestion, cough Outcome: See PCP within 4 hours. Advised Urgent/[facility]. Patient acknowledged understanding and stated she would go to [facility] tonight. Reason for Disposition MILD [...] a thermometer 7. RESPIRATORY STATUS: Hoarseness 8. [id number]:Same as yesterday 9. HIGH RISK DISEASE: Diabetic [...] days. Protocols used: Coronavirus (COVID-19) Diagnosed or Blkwcwyrj-VNECA-RH Patient states she has shortness of breath on exertion. documented in this encounter [facility] 04-19-2023 Miscellaneous Notes OK to refill as ordered Deirdre Quiñones MD Last office visit: 04/10/23 F/u scheduled: none Last TSH done in Aug 2022. Kourtney Kincaid Ma documented in this encounter [facility] 04-18-2023 Miscellaneous Notes Message left notifying pt that medication was sent to pharmacy. Kourtney Kincaid Ma OK for Zpak as ordered Deirdre Quiñones MD Patient calls and states that she now thinks that she has a sinus infection. Patient asking if provider can send in a prescription for this? Patient's pharmacy is [facility]. Please review and advise, [place] Armando RN documented in this encounter [facility] 02-05-2023 History of Present illness Narrative POPULATION HEALTH NAVIGATION OUTREACH Action/FYI HCC Gaps Due; E11.65 - Uncontrolled type 2 diabetes mellitus with hyperglycemia (HCC) - [id number] Last Billed 04/05/2022
[employer] Care Gaps Due; Follow Up BP Controlled HGBA1C Urine Albumin Advance Directives Left message and sent My Chart Patient Identified by Name and : NO Outreach Outcome/Action Unable to reach patient: Left message [employer] message sent Did you use a PCP flex slot to schedule this appointment? N/A Reason for Outreach HCC or suspected condition Payer: Payor: [employer] MEDICARE / Plan: [employer] / Product Type: HMO / Care Gap [...] 2023 3:49 PM documented in this encounter [facility] 01-22-2023 Miscellaneous Notes Pt notified via [employer] that rx were refilled and she needs an appointment for any further refills on the xanax. Advised her to call in and schedule. Kourtney Kincaid Ma OK to refill as ordered Agree that she needs appt Deirdre Quiñonse MD Last office visit: 06/27/22 F/u scheduled: none Last refilled on: Xanax #60 with 2 refills 10/22/22 PT NEEDS APPT Kourtney Kincaid Ma documented in this encounter [facility] 01-22-2023 Miscellaneous Notes The following approved medication requests have been transmitted electronically. Requested Prescriptions Pending Prescriptions Disp Refills loratadine (CLARITIN) 10 mg tablet [Pharmacy Med Name: LORATADINE 10 MG TABLET] 90 tablet 3 Sig: TAKE 1 TABLET BY MOUTH EVERY DAY Jay Tran APRN.CNP Last office visit: 06/27/22 F/u scheduled: none Kourtney Kincaid Ma documented in this encounter [facility] 01-22-2023 Miscellaneous Notes The following approved medication requests have been transmitted electronically. Requested Prescriptions Pending Prescriptions Disp Refills lisinopril (ZESTRIL) 10 mg tablet 90 tablet 3 Sig: Take 1 tablet by mouth once daily. Jay Tran APRN.CNP Last office visit: 06/27/22 F/u scheduled: none documented in this encounter [facility] 12-11-2022 History of Present illness Narrative POPULATION HEALTH NAVIGATION OUTREACH Action/FYI HCC Gaps Due; E11.65 - Uncontrolled type 2 diabetes mellitus with hyperglycemia (HCC) - [id number] Last Billed 04/05/2022
[employer] Care Gaps Due; [...] condition Payer: Payor: [employer] MEDICARE / Plan: [employer] / Product Type: HMO / Care Gap [...] 2022 8:44 AM documented in this encounter [facility] 12-06-2022 Miscellaneous Notes Pt notified. Kourtney Kincaid [...] pcp, it's always a nurse or a Chef Manager that she has to communicate with and she is thinking about getting a new doctor. Patient is calling in stating that she went to [facility] her trulicity rx and it normally cost $42 and today they wanted $198 for it. patients states that [facility] just told her the cost of the medication increased and to call her providers office. documented in this encounter [facility] 11-02-2022 Miscellaneous Notes The following approved medication requests have been transmitted electronically. Requested Prescriptions Pending Prescriptions Disp Refills dulaglutide (TRULICITY) 0.75 mg/0.5 mL pen injector 2 mL 5 Sig: Inject 0.75 mg subcutaneously one time a week. Jay Tran APRN.CNP documented in this encounter [facility] 10-22-2022 Miscellaneous Notes Approved. PDMP website checked [...] Kourtney Kincaid Ma documented in this encounter [facility] 10-22-2022 Miscellaneous Notes The following approved medication requests have been transmitted electronically. Requested Prescriptions Pending Prescriptions Disp Refills atorvastatin (LIPITOR) 10 mg tablet 90 tablet 3 Sig: Take 1 tablet by mouth once daily. Jay Tran APRN.CNP documented in this encounter [facility] 10-09-2022 Miscellaneous Notes Called [facility] sheridan and aware specific NDC code needed, pharmacist advised was figured out an ready for picker and sorter load and unload. Patient was notified Mansi Green Ma PA [...] [employer] Name: [employer] Phone number: [phone] Patient ID number: [id number] Pharmacy Name: [facility] Telephone number: [phone] documented in this encounter [facility] 09-25-2022 Miscellaneous Notes Letter taken to Med [...] BMV. Please advise documented in this encounter [facility] 09-17-2022 Miscellaneous Notes OK to refill as ordered Deirdre Quiñones MD documented in this encounter [facility] 08-30-2022 Miscellaneous Notes Spoke with patient. Given [...] Odalis Valentino LPN documented in this encounter [facility] 08-16-2022 Miscellaneous Notes Patient returned call and [...] CMP to Dr Kumar's office fax # [phone] when they have resulted. Marcela Ross RN [...] over later. Fax # for Dr Kumar [phone]. Pt [address] Kumar has done an [...] call and advise. documented in this encounter [facility] 08-01-2022 Miscellaneous Notes Received PA for Tuan from [facility] but shows patient picked up today 08/01. Called and spoke to pharmacist at [facility] who verified no PA needed and went through. Mansi Green Ma documented in this encounter [facility] 07-26-2022 Miscellaneous Notes OK to refill as ordered Deirdre Quiñones MD Patient has been identified by name and date of : Yes Patient phones for refill(s): Requested Prescriptions Pending Prescriptions Disp Refills dulaglutide (TRULICITY) 0.75 mg/0.5 mL pen injector 4 Each 3 Date of last office visit in primary care: 04/05/22 Please advise. Thank you. Nirmala Blair LPN documented in this encounter [facility] 07-26-2022 Miscellaneous Notes OK to refill as orderedDeirdre Quiñones MD Sent a [employer] message for pt to come in and [...] Kamille Nova LPN documented in this encounter [facility] 07-23-2022 Miscellaneous Notes Approved PDMP website checked [...] Kourtney Kincaid Ma documented in this encounter [facility] 07-05-2022 History of Present illness Narrative Radiology [...] 2022 9:45 AM documented in this encounter [facility] 07-04-2022 Miscellaneous Notes Pt called and is [...] patient. Thank you. documented in this encounter [facility] 06-27-2022 Instructions Silvia Vazquez APRN.MANDY - 06/27/2022 [...] up as needed. documented in this encounter [facility] 06-27-2022 History of Present illness Narrative This [...] APRN.MANDY This note was partially generated using Ar[employer] voice recognition system. Note was reviewed for accuracy. There may be minor misspellings or grammar miscues with [employer] voice recognition. documented in this encounter [facility] 06-20-2022 Miscellaneous Notes The following approved medication [...] Lorenza Rivas Pss documented in this encounter [facility] 06-04-2022 Miscellaneous Notes The following approved medication [...] Steve Penny LPN documented in this encounter [facility] 05-21-2022 Miscellaneous Notes Last refilled on: xanax #60 with 2 refill on 04/23/22 to [facility]. Pt should have refills remaining. Pt notified via [employer]. Kourtney Kincaid Ma documented in this encounter [facility] 05-04-2022 Miscellaneous Notes The following approved medication requests have been transmitted electronically. Requested Prescriptions Pending Prescriptions Disp Refills dulaglutide (TRULICITY) 0.75 mg/0.5 mL pen injector 2 mL 0 Sig: Inject 0.75 mg subcutaneously one time a week. Inject dose once per week. Discard Pen After Jay Tran APRN.CHEF KITCHEN MANAGER Patient phones requesting refills as follows: Requested Prescriptions Pending Prescriptions Disp Refills dulaglutide (TRULICITY) 0.75 mg/0.5 mL pen injector 2 mL 0 Sig: Inject 0.75 mg subcutaneously one time a week. Inject dose once per week. Discard Pen After PATRICE-04/05/22 Labs-04/05/22 NOV-06/19/22 med filled 04/05/22 Please review and advise. Odalis Valentino LPN documented in this encounter [facility] 04-23-2022 Miscellaneous Notes OK to refill as ordered Deirdre Quiñones MD Patient phones requesting refills as follows: Requested Prescriptions Pending Prescriptions Disp Refills ALPRAZolam (XANAX) 0.5 mg tablet 60 tablet 2 Sig: Take 1 tablet by mouth twice daily as needed for up to 90 days. PATRICE-04/05/22 Labs-04/05/22 NOV-06/19/22 med filled 01/17/22 Please review and advise. Odalis Valentino LPN documented in this encounter [facility] 04-05-2022 History of Present illness Narrative Chief [...] po every am. She has concerns about mcfp problems with taking Metformin for a long time, she questions if there are other alternatives, she does not want to be given it because drug companies want her to be on it. She read kidney and organ problems with taking Metformin intermission coordinator. She is interested in using injectable options, feels she is capable of giving herself an injection. Lipids: Denies any issues with current regimen of Lipitor 10 mg once daily. Neuro: Since her last visit pt fell at home in May hitting her head and was notified to go the ER by our office. Pt was admitted into [facility] on 05/11/21 with dx of subdural hematoma, [...] Past Histories independently gathered by the clinical retail support associate and the remaining scribed note accurately describes [...] Kourtney Kincaid Ma documented in this encounter [facility] 03-23-2022 Miscellaneous Notes The following approved medication [...] patient. Ivette Broussard documented in this encounter [facility] 03-20-2022 Miscellaneous Notes The following approved medication [...] at the pharmacy documented in this encounter [facility] 01-17-2022 Miscellaneous Notes Approved PDMP website checked [...] Paty Reid Pss documented in this encounter [facility] 12-11-2021 Miscellaneous Notes TC to pt. LM to call office, ask for triage nurse to get update for loratadine. Updated pt that there are refills on requested medication and to call there pharm. Odalis Valentino LPN documented in this encounter [facility] 11-25-2021 Miscellaneous Notes Patient returned call and [...] request an antibiotic change. Patient went to picker and sorter load and unload the cefpodoxime 200 mg and the cost [...] Tanisha Connors RN documented in this encounter [facility] 11-23-2021 Miscellaneous Notes Images from the original note were not included. Patient returned call for results of chest xray. Results XR CHEST 2V FRONTAL/LAT (Order [id number]) Patient Info Patient Name Sex Sheree Egan ([id number]) Female 1945 11/23/2021 12:27 PM - Radiology, [place] In Impression IMPRESSION: No acute radiographic abnormality. Alligator Hunter: PSCB Transcribe Date/Time: Nov 23 2021 12:24P [...] Result History XR CHEST 2V FRONTAL/LAT (Order #[id number]) on 11/23/2021 - Order Result History Report Result Information Status Provider Status Final result (11/23/2021 12:27 PM) Reviewed Exam Performed Date and Time 11/23/2021 12:17 PM Resulting Agency [id number] [id number] XR CHEST 2V FRONTAL/LAT: Result Notes Mansi Green Ma 11/23/2021 2:07 PM EDT Left message for patient on Tahir Sales MD 11/23/2021 2:00 PM EDT Normal chest xray. Continue treatment as discussed in office. Went over results, notes from Dr Sales with understanding. documented in this encounter [facility] 11-23-2021 History of Present illness Narrative Radiology [...] 2021 12:03 PM documented in this encounter [facility] 11-21-2021 Miscellaneous Notes No specific recommendations Deirdre [...] Brianne Carr RN documented in this encounter [facility] 11-16-2021 History of Present illness Narrative CC: [...] Maura Morillo APRN.MANDY documented in this encounter [facility] 10-20-2021 Miscellaneous Notes Duplication. Pt notified. Kamille [...] patient. Yasmin Reid documented in this encounter [facility] 10-20-2021 Miscellaneous Notes The following approved medication [...] Francisca Chappell LPN documented in this encounter [facility] 09-29-2021 Miscellaneous Notes Patient notified of results [...] Deirdre Quiñones MD documented in this encounter [facility] 09-26-2021 Nurse Note DM letter faxed to pt's Eye Doctor, Dr. Say Gonsalez at F#: [phone]. Radha Del Rosario Ma documented in this encounter [facility] 09-26-2021 Instructions Radha Del Rosario Ma - 09/26/2021 10:30 AM EDT Dizziness - Decrease blood pressure medication Lisinopril 20 mg daily to 10 mg. New prescription has been sent into pharmacy. documented in this encounter [facility] 09-26-2021 History of Present illness Narrative Chief [...] by our office. Pt was admitted into [facility] on 05/11/21 with dx of subdural hematoma, [...] C. Declines Depression symptoms. Letter sent to [facility] for Retinal exam. Pt has living will/Adv [...] (FLONASE) 50 mcg/actuation nasal spray Use 1 Guin in each nostril once daily as needed. [...] Past Histories independently gathered by the clinical retail support associate and the remaining scribed note accurately describes [...] Del Rosario Ma documented in this encounter [facility] 07-18-2021 Note HNO ID: [id number] Author: Darrick Pierre MD Service: ? Author Type: Physician Type: Progress Notes Filed: 07/18/2021 11:27 AM Note Text: NEUROSURGERY FOLLOW UP OFFICE NOTE Dr. Darrick Pierre MD, FACS Date of visit:July 18, 2021 Patient Name: Ms.Alma Darshan Chavez Date of : 1945 Current Age: [age] year old Sex: female MRN/E# [id number] Last Office Visit: June 08, 2021 Chief [...] (FLONASE) 50 mcg/actuation nasal spray Use 1 Guin in each nostril once daily as needed. [...] once daily. 90 (more content not included)... [facility] 06-08-2021 Note HNO ID: [id number] Author: Darrick Pierre MD Service: ? Author Type: Physician Type: Progress Notes Filed: 06/08/2021 11:57 AM Note Text: NEUROSURGERY FOLLOW UP OFFICE NOTE Dr. Darrick Pierre MD, [facility] Date of visit: June 08, 2021 Patient Name: Ms.Alma Darshan Chavez Date of : 1945 Current Age: [age] year old Sex: female MRN/E# [id number] Last Office Visit: May 25, 2021 Chief [...] (FLONASE) 50 mcg/actuation nasal spray Use 1 Guin in each nostril once daily as needed. [...] 20 mg ta (more content not included)... [facility] 05-25-2021 Note HNO ID: [id number] Author: Darrick Pierre MD Service: ? Author Type: Physician Type: Progress Notes Filed: 05/25/2021 10:56 AM Note Text: NEUROSURGERY FOLLOW UP OFFICE NOTE Dr. Darrick Pierre MD, FACS Date of visit: May 25, 2021 Patient Name: Ms.Alma Darshan Chavez Date of : 1945 Current Age: [age] year old Sex: female MRN/E# [id number] Last Office Visit: Hospital follow-up Chief Complaint: [...] (FLONASE) 50 mcg/actuation nasal spray Use 1 Guin in each nostril once daily as needed. [...] than 4000 m (more content not included)... [facility] 05-25-2021 Note HNO ID: [id number] Author: RT Clayton(R) Service: Radiology Author Type: [...] RT Scott(R) May 25, 2021 9:[address] [facility] 05-13-2021 Note HNO ID: [id number] Author: Kalia Tirado APRN.CHEF KITCHEN MANAGER Service: Neurosurgery Author Type: Nurse Practitioner Type: [...] 05/11/2021 - TBI (traumatic brain injury) ([facility]) 05/11/2021 - Fall 05/11/2021 - Subarachnoid hemorrhage following injury, no loss of consciousness ([facility]) 05/11/2021 Sheree Chavez is a 75 year old female fall from stool, CHI/SDH/SAH/contusion. - Neuro as above - Neuro checks per protocol - Ok for d/c - 2 wk f/u with Dr Pierre with CTH requested - No AC/AP until f/u SIGNATURE: Kalia Tirado APRN.CNP PATIENT NAME: Sheree Chavez DATE: May 13, 2021 TIME: 11:39 AM Pager: [phone] [facility] 05-13-2021 Note HNO ID: [id number] Author: Margret Dawson APRN.CNP Service: General Surgery Author Type: Nurse Practitioner Type: Progress Notes Filed: 05/13/2021 8:28 AM Note Text: Trauma Surgery Progress Note SERVICE DATE: 05/13/2021 Trauma Service Pager: For questions or concerns Mon-Fri 6a-5p please page [phone]. After 5pm and on Weekends and Holidays, please page [phone] if in ICU or [phone] if on RNF. SUBJECTIVE: NAEON. Patient hopeful [...] 05/11/2021 - TBI (traumatic brain injury) ([facility]) 05/11/2021 - Fall 05/11/2021 - Subarachnoid hemorrhage following injury, no loss of consciousness ([facility]) 05/11/2021 75 year old female s/p GLF [...] home today if cleared by neurosurgery, PT, SLAG EXPANDER PPX: 1. DVT: SCDs, mobililze 2. Ulcer: n/a 3. Vit D level if > 65 yo: pending Consulted Services: 1. SICU 2. Neurosurgery 3. Orthopedic surgery 4. SLAG EXPANDER Dispo Plannin. PT/OT recs pending. Case management following. Incidentals: 1. None Follow Up Needs: 1. NSGY - Dr. Pierre 2. PCP Staff Trauma Surgeon: Dr. Raymundo SIGNATURE: Margret Dawson APRN.CNP PATIENT NAME: Sheree Chavez DATE: May 13, 2021 TIME: 8:19 AM Pager: see below Trauma Service Pager: For questions or concerns Mon-Fri 6a-5p please page [phone]. After 5pm and on Weekends and Holidays, please page [phone] if in ICU or [phone] [facility] 05-13-2021 Note HNO ID: [id number] Author: Interface Note Service: ? Author Type: ? Type: Progress Notes Filed: 05/13/2021 3:09 AM Note Text: Epic Scheduled Downtime: 05/13/2021 1:00:00 AM to 05/13/2021 2:52:[address] [facility] 05-12-2021 Note HNO ID: [id number] Author: Scarlett Foster RPh Service: Pharmacy Author Type: Pharmacist Type: Plan of Care Filed: 05/12/2021 4:55 PM Note Text: PHARMACY MEDICATION REVIEW Patient Name: Sheree Chavez : 1945 The following medications were updated within the CERTIFIED GENETIC COUNSELOR medication list: Medications ADDED to CERTIFIED GENETIC COUNSELOR medication list ? cannabidiol, CBD, (CANNABIDIOL ORAL) [...] (Pt reports OTC use) Medications CHANGED on CERTIFIED GENETIC COUNSELOR medication list ? ACETAMINOPHEN 500 MG TAB (Directions clarified) ? famotidine (PEPCID) 20 mg tablet (Pt reports use 1-2 days weekly - Directions clarified) Medications REMOVED from CERTIFIED GENETIC COUNSELOR medication list ? Cholecalciferol, Vitamin D3, 2,000 unit cap (Pt reports no longer taking) ? fluticasone (FLONASE) 50 mcg/actuation nasal spray ([facility]) ? loratadine (CLARITIN) 10 mg tablet (Pt reports no longer taking) Additional comments: Verified medication information with patient, pharmacy and chart review. Patient stated no longer taking Vit D or Claritin - removed from med list and duplicate fluticasone order removed. Pharmacy confirmed fill dates current. The below information represents the best possible medication history: Yes Medication history completed by: Punch Machine Hand: Eun Crouch (General Claims Agent) and Sd Hernandez (Ferryboat Pilot) Source of history: Patient:Reliability of source: Appears reliable, clearly identified: Medication name, Medication dose, Medication route and Medication frequency, Pharmacy records: [facility] [phone] [facility] records Medication nonadherence identified: No barriers noted Reconciliation completed: Yes All CERTIFIED GENETIC COUNSELOR medications addressed by LIP Patient interested in Bedside Delivery Services or using CC OP Pharmacy at discharge? No Preferred outpatient pharmacy: [id number] [place] [address] - [address] [phone] [id number] Allergies: Palm Oil GI Upset Accupril [Quinapril* Other: See Comments Comment:Pt unsure why this is listed. Not sure what allergy is Asa [Salicylates] GI Upset Penicillins Hives Vicodin [Hydrocodon* GI Upset Bees Codeine Intolerance Metformin GI Upset Comment:diarrhea higher dose Prior to Admission medications as of 05/12/21 4792 Medication Sig Last Dose Taking therapeutic multivitamin w/ iron (THERAGRAN-M) 27-0.4 mg tablet Take 1 tablet by mouth once daily. Yes fluticasone (FLONASE) 50 mcg/actuation nasal spray Use 1 Guin in each nostril once daily as needed. [...] day (FROM ALL SOURCES) Yes Eun Crouch (General Claims Agent) [id number] 05/12/2021 Sd Hernandez (Embroidery Specialist) 05/12/2021 I agree with the medication history completed by the appeals specialist above, making changes as necessary in RED Scarlett Foster, DialloD PGY-2 Critical Care Mortgage Accounting Clerk 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 Last discharge within 30 days: No Advance Directive: Current Advance Directive: None Street Roller Engineer Attempted to Assist with AD Completion: Yes [...] Glucometer Has the Patient Been in a Longterm Facility in the Past 30 days?: No [...] Completely I feel financially burdened by my [id number] expenses for my prescription medication:: 0 - Disagree Completely Risk Score: 0 Patient is categorized as: Low risk < 2 Are you interested in bedside delivery of your medications? Yes ASSESSMENT AND PLAN: Medical Needs: Medical Needs: None Psychosocial Needs: Psychosocial Needs: None FREEDOM OF CHOICE EXPLAINED: [place] of Choice Given: No Reason Not Given: Unable to complete with this assessment - revisit POTENTIAL TRANSITION PLANS Home;Home Care;Longterm Facility/Intermediate Care Facility;To Be Determined Chart reviewed. The pateint is admitted due to fall at home ? Spoke with patient at the bedside. Explained care management role. Functional: the patient lives in ranch home with basement and has 2-3 steps to get inside the house. Transportation: independent and drives to appointments. Equipment Prior to Admission: none Support: Sammi Chavez (Daughter) [phone] and Lauren Chavez (son) [phone] Pharmacy: [facility]/pharmacy #[id number] [place] [address] PCP: Deirdre Quiñones MD The patient was [...] 12, 2021 TIME: 9:20 AM PAGER/CONTACT #: [phone] [facility] 05-12-2021 Note HNO ID: [id number] Author: Bridgett Guerrero PA-C Service: Neurosurgery Author Type: Physician Business Dean Type: Progress Notes Filed: 05/12/2021 1:15 PM [...] May 12, 2021 TIME: 1:06 PM Pager: [phone] [facility] 05-12-2021 Note HNO ID: [id number] Author: David Garcia DO Service: General Surgery [...] questions or concerns Mon-Fri 6a-5p please page [phone]. After 5pm and on Weekends and Holidays, please page [phone] if in ICU or [phone] if on RNF. SUBJECTIVE: NAEO, AF, HDS [...] 05/11/2021 - TBI (traumatic brain injury) ([facility]) 05/11/2021 - Fall 05/11/2021 - Subarachnoid hemorrhage following injury, no loss of consciousness ([facility]) 05/11/2021 75 year old female s/p ground [...] 1. None Fol (more content not included)... [facility] 05-12-2021 Note HNO ID: [id number] Author: Chacho Ocampo MD Service: General Surgery [...] concern for o (more content not included)... [facility] 05-13-2014 History of Past i llness Narrative Problem Noted Date Resolved Date Essential hypertension, benign 1 07/13/2013 DIABETES MELLITUS TYPE II-UNCOMPL 05/13/2014 documented as of this encounter (statuses as of 09/27/2021) [facility] History of Past illness Narrative* Problem Noted Date Resolved Date Essential hypertension, benign 1 07/13/2013 DIABETES MELLITUS TYPE II-UNCOMPL 05/13/2014 documented as of this encounter (statuses as of 09/29/2021) [facility] History of Past illness Narrative* Problem Noted Date Resolved Date Essential hypertension, benign 1 07/13/2013 DIABETES MELLITUS TYPE II-UNCOMPL 05/13/2014 documented as of this encounter (statuses as of 10/20/2021) [facility] History of Past illness Narrative* Problem Noted Date Resolved Date Essential hypertension, benign 1 07/13/2013 DIABETES MELLITUS TYPE II-UNCOMPL 05/13/2014 documented as of this encounter (statuses as of 10/20/2021) [facility] History of Past illness Narrative* Problem Noted Date Resolved Date Essential hypertension, benign 1 07/13/2013 DIABETES MELLITUS TYPE II-UNCOMPL 05/13/2014 documented as of this encounter (statuses as of 11/16/2021) [facility] History of Past illness Narrative* Problem Noted Date Resolved Date Essential hypertension, benign 1 07/13/2013 DIABETES MELLITUS TYPE II-UNCOMPL 05/13/2014 documented as of this encounter (statuses as of 11/21/2021) [facility] History of Past illness Narrative* Problem Noted Date Resolved Date Essential hypertension, benign 1 07/13/2013 DIABETES MELLITUS TYPE II-UNCOMPL 05/13/2014 documented as of this encounter (statuses as of 11/23/2021) [facility] History of Past illness Narrative* Problem Noted Date Resolved Date Essential hypertension, benign 1 07/13/2013 DIABETES MELLITUS TYPE II-UNCOMPL 05/13/2014 documented as of this encounter (statuses as of 11/25/2021) [address] History of Past illness Narrative* Problem Noted Date Resolved Date Essential hypertension, benign 1 07/13/2013 DIABETES MELLITUS TYPE II-UNCOMPL 05/13/2014 documented as of this encounter (statuses as of 12/14/2021) [facility] History of Past illness Narrative* Problem Noted Date Resolved Date Essential hypertension, benign 1 07/13/2013 DIABETES MELLITUS TYPE II-UNCOMPL 05/13/2014 documented as of this encounter (statuses as of 01/17/2022) [facility] History of Past illness Narrative* Problem Noted Date Resolved Date Essential hypertension, benign 1 07/13/2013 DIABETES MELLITUS TYPE II-UNCOMPL 05/13/2014 documented as of this encounter (statuses as of 03/20/2022) [place] [address]-06-2014 History of Past illness Narrative* Problem Noted Date Resolved Date Essential hypertension, benign 1 07/13/2013 DIABETES MELLITUS TYPE II-UNCOMPL 05/13/2014 documented as of this encounter (statuses as of 03/23/2022) [facility] History of Past illness Narrative* Problem Noted Date Resolved Date Essential hypertension, benign 1 07/13/2013 DIABETES MELLITUS TYPE II-UNCOMPL 05/13/2014 documented as of this encounter (statuses as of 04/06/2022) [facility] [facility]11-06-2014 History of Past illness Narrative* Problem Noted Date Resolved Date Essential hypertension, benign 1 07/13/2013 DIABETES MELLITUS TYPE II-UNCOMPL 05/13/2014 documented as of this encounter (statuses as of 04/19/2022) [facility]2014 History of Past illness Narrative* Problem Noted Date Resolved Date Essential hypertension, benign 1 07/13/2013 DIABETES MELLITUS TYPE II-UNCOMPL 05/13/2014 documented as of this encounter (statuses as of 04/23/2022) [facility]2014 History of Past illness Narrative* Problem Noted Date Resolved Date Essential hypertension, benign 1 07/13/2013 DIABETES MELLITUS TYPE II-UNCOMPL 05/13/2014 documented as of this encounter (statuses as of 05/04/2022) [facility]2014 History of Past illness Narrative* Problem Noted Date Resolved Date Essential hypertension, benign 1 07/13/2013 DIABETES MELLITUS TYPE II-UNCOMPL 05/13/2014 documented as of this encounter (statuses as of 05/04/2022) [facility]2014 History of Past illness Narrative* Problem Noted Date Resolved Date Essential hypertension, benign 1 07/13/2013 DIABETES MELLITUS TYPE II-UNCOMPL 05/13/2014 documented as of this encounter (statuses as of 05/21/2022) [facility]2014 History of Past illness Narrative* Problem Noted Date Resolved Date Essential hypertension, benign 1 07/13/2013 DIABETES MELLITUS TYPE II-UNCOMPL 05/13/2014 documented as of this encounter (statuses as of 06/04/2022) [facility] History of Past illness Narrative* Problem Noted Date Resolved Date Essential hypertension, benign 1 07/13/2013 DIABETES MELLITUS TYPE II-UNCOMPL 05/13/2014 documented as of this encounter (statuses as of 06/20/2022) [facility] History of Past illness Narrative* Problem Noted Date Resolved Date Essential hypertension, benign 1 07/13/2013 DIABETES MELLITUS TYPE II-UNCOMPL 05/13/2014 documented as of this encounter (statuses as of 06/27/2022) [facility] History of Past illness Narrative* Problem Noted Date Resolved Date Essential hypertension, benign 1 07/13/2013 DIABETES MELLITUS TYPE II-UNCOMPL 05/13/2014 documented as of this encounter (statuses as of 07/10/2022) [facility] History of Past illness Narrative* Problem Noted Date Resolved Date Essential hypertension, benign 1 07/13/2013 DIABETES MELLITUS TYPE II-UNCOMPL 05/13/2014 documented as of this encounter (statuses as of 07/23/2022) [facility] History of Past illness Narrative* Problem Noted Date Resolved Date Essential hypertension, benign 1 07/13/2013 DIABETES MELLITUS TYPE II-UNCOMPL 05/13/2014 documented as of this encounter (statuses as of 07/26/2022) [facility] History of Past illness Narrative* Problem Noted Date Resolved Date Essential hypertension, benign 1 07/13/2013 DIABETES MELLITUS TYPE II-UNCOMPL 05/13/2014 documented as of this encounter (statuses as of 07/26/2022) [address]06-2014 History of Past illness Narrative* Problem Noted Date Resolved Date Essential hypertension, benign 1 07/13/2013 DIABETES MELLITUS TYPE II-UNCOMPL 05/13/2014 documented as of this encounter (statuses as of 08/01/2022) [address]06-2014 History of Past illness Narrative* Problem Noted Date Resolved Date Essential hypertension, benign 1 07/13/2013 DIABETES MELLITUS TYPE II-UNCOMPL 05/13/2014 documented as of this encounter (statuses as of 08/16/2022) [address]06-2014 History of Past illness Narrative* Problem Noted Date Resolved Date Essential hypertension, benign 1 07/13/2013 DIABETES MELLITUS TYPE II-UNCOMPL 05/13/2014 documented as of this encounter (statuses as of 08/31/2022) [address]06[address]2014 History of Past illness Narrative* Problem Noted Date Resolved Date Essential hypertension, benign 1 07/13/2013 DIABETES MELLITUS TYPE II-UNCOMPL 05/13/2014 documented as of this encounter (statuses as of 09/18/2022) [place] [address]-06-2014 History of Past illness Narrative* Problem Noted Date Resolved Date Essential hypertension, benign 1 07/13/2013 DIABETES MELLITUS TYPE II-UNCOMPL 05/13/2014 documented as of this encounter (statuses as of 09/25/2022) [place] [address]-06-2014 History of Past illness Narrative* Problem Noted Date Resolved Date Essential hypertension, benign 1 07/13/2013 DIABETES MELLITUS TYPE II-UNCOMPL 05/13/2014 documented as of this encounter (statuses as of 09/25/2022) [place] [address]-06-2014 History of Past illness Narrative* Problem Noted Date Resolved Date Essential hypertension, benign 1 07/13/2013 DIABETES MELLITUS TYPE II-UNCOMPL 05/13/2014 documented as of this encounter (statuses as of 10/09/2022) [facility] History of Past illness Narrative* Problem Noted Date Resolved Date Essential hypertension, benign 1 07/13/2013 DIABETES MELLITUS TYPE II-UNCOMPL 05/13/2014 documented as of this encounter (statuses as of 10/22/2022) [address]06[address]2014 History of Past illness Narrative* Problem Noted Date Resolved Date Essential hypertension, benign 1 07/13/2013 DIABETES MELLITUS TYPE II-UNCOMPL 05/13/2014 documented as of this encounter (statuses as of 11/02/2022) [address]06[address]2014 History of Past illness Narrative* Problem Noted Date Resolved Date Essential hypertension, benign 1 07/13/2013 DIABETES MELLITUS TYPE II-UNCOMPL 05/13/2014 documented as of this encounter (statuses as of 12/07/2022) [address]06[address]2014 History of Past illness Narrative* Problem Noted Date Resolved Date Essential hypertension, benign 1 07/13/2013 DIABETES MELLITUS TYPE II-UNCOMPL 05/13/2014 documented as of this encounter (statuses as of 12/12/2022) [address]06[address]2014 History of Past illness Narrative* Problem Noted Date Diagnosed Date Resolved Date Essential hypertension, benign 05/13/2014 DIABETES MELLITUS TYPE II-UNCOMPL 05/13/2014 documented as of this encounter (statuses as of 01/22/2023) [address]06[address]2014 History of Past illness Narrative* Problem Noted Date Diagnosed Date Resolved Date Essential hypertension, benign 05/13/2014 DIABETES MELLITUS TYPE II-UNCOMPL 05/13/2014 documented as of this encounter (statuses as of 01/22/2023) [address]06[address]2014 History of Past illness Narrative* Problem Noted Date Diagnosed Date Resolved Date Essential hypertension, benign 05/13/2014 DIABETES MELLITUS TYPE II-UNCOMPL 05/13/2014 documented as of this encounter (statuses as of 01/22/2023) [address]06[address]2014 History of Past illness Narrative* Problem Noted Date Diagnosed Date Resolved Date Essential hypertension, benign 05/13/2014 DIABETES MELLITUS TYPE II-UNCOMPL 05/13/2014 documented as of this encounter (statuses as of 02/06/2023) [address]06[address]2014 History of Past illness Narrative* Problem Noted Date Diagnosed Date Resolved Date Essential hypertension, benign 05/13/2014 DIABETES MELLITUS TYPE II-UNCOMPL 05/13/2014 documented as of this encounter (statuses as of 04/19/2023) [address]06[address]2014 History of Past illness Narrative* Problem Noted Date Diagnosed Date Resolved Date Essential hypertension, benign 05/13/2014 DIABETES MELLITUS TYPE II-UNCOMPL 05/13/2014 documented as of this encounter (statuses as of 04/19/2023) [place] [address]-06-2014 History of Past illness Narrative* Problem Noted Date Diagnosed Date Resolved Date Essential hypertension, benign 05/13/2014 DIABETES MELLITUS TYPE II-UNCOMPL 05/13/2014 documented as of this encounter (statuses as of 04/20/2023) [place] [address]-06-2014 History of Past illness Narrative* Problem Noted Date Diagnosed Date Resolved Date Essential hypertension, benign 05/13/2014 DIABETES MELLITUS TYPE II-UNCOMPL 05/13/2014 documented as of this encounter (statuses as of 04/23/2023) [facility] History of Past illness Narrative* Problem Noted Date Diagnosed Date Resolved Date Essential hypertension, benign 05/13/2014 DIABETES MELLITUS TYPE II-UNCOMPL 05/13/2014 documented as of this encounter (statuses as of 04/25/2023) [facility] History of Past illness Narrative* Problem Noted Date Diagnosed Date Resolved Date Essential hypertension, benign 05/13/2014 DIABETES MELLITUS TYPE II-UNCOMPL 05/13/2014 documented as of this encounter (statuses as of 04/29/2023) [facility] History of Past illness Narrative* Problem Noted Date Diagnosed Date Resolved Date Essential hypertension, benign 05/13/2014 DIABETES MELLITUS TYPE II-UNCOMPL 05/13/2014 documented as of this encounter (statuses as of 10/22/2023) [facility] note* Diagnosis Type 2 diabetes mellitus without complication, without long-term current use of insulin ([facility])- Primary Diarrhea, unspecified type Hypertension, unspecified type Hypothyroidism, unspecified type Mixed hyperlipidemia Anxiety state Anxiety state, unspecified Subarachnoid hemorrhage following injury, no loss of consciousness, sequela ([facility]) Tobacco use Tobacco use disorder Tick bite, unspecified site, initial encounter [facility]* Diagnosis Type 2 diabetes mellitus without complication, without long-term current use of insulin ([facility]) [facility] Diagnosis Anxiety state Anxiety state, unspecified [facility]* Diagnosis Anxiety state Anxiety state, unspecified [facility] Diagnosis Congestion of nasal sinus- Primary Other diseases of nasal cavity and sinuses documented in this encounter [facility] note* Diagnosis Anxiety state Anxiety state, unspecified [facility]* Diagnosis Hypothyroidism, unspecified type Type 2 diabetes mellitus without complication, without long-term current use of insulin (HCC) Anxiety state Anxiety state, unspecified documented in this encounter [facility] note* Diagnosis Uncontrolled type 2 diabetes mellitus with hyperglycemia (HCC)- Primary Mixed hyperlipidemia Hypertension, unspecified type Anxiety state Anxiety state, unspecified Fall, initial encounter Hypothyroidism, unspecified type Arthritis of both hands documented in this encounter [facility] note* Diagnosis Anxiety state Anxiety state, unspecified Type 2 diabetes mellitus without complication, without long-term current use of insulin (HCC) [facility] Diagnosis Anxiety state Anxiety state, unspecified [facility] Diagnosis Uncontrolled type 2 diabetes mellitus with hyperglycemia (HCC) [facility]* Diagnosis Anxiety state Anxiety state, unspecified [facility]* Diagnosis Type 2 diabetes mellitus without complication, without long-term current use of insulin (HCC) Anxiety state Anxiety state, unspecified [facility]* Diagnosis Sciatica, right side- Primary documented [facility]* Diagnosis Hip pain- Primary Pain in joint, pelvic region and thigh [facility] Diagnosis Anxiety state Anxiety state, unspecified documented [facility]* Diagnosis Uncontrolled type 2 diabetes mellitus with hyperglycemia (HCC) documented [facility]* Diagnosis Uncontrolled type 2 diabetes mellitus with hyperglycemia (HCC) documented [facility]* Diagnosis Mixed hyperlipidemia [facility] Diagnosis Uncontrolled type 2 diabetes mellitus with hyperglycemia (HCC)- Primary Mixed hyperlipidemia [facility]* Diagnosis Hypertension, unspecified type [facility] Diagnosis Anxiety state Anxiety state, unspecified Uncontrolled type 2 diabetes mellitus with hyperglycemia (HCC) [facility] noteNo assessment information availableWMarietta Osteopathic Clinic Work Phone: Evaluation note* Diagnosis Hypothyroidism, unspecified type [facility] Diagnosis Onset Date Resolution Status Spinal stenosis at L4-L5 level acute Greater trochanteric bursitis of right hip noneactive IT band syndrome noneactive [facility] Work Phone: Evaluation note* Diagnosis Chest tightness- Primary Other chest pain [facility]* Diagnosis Closed fracture of one rib of left side, initial encounter- Primary Rib injury Sprain of ribs documented [facility]* Diagnosis Anxiety state Anxiety state, unspecified [facility]* Diagnosis Medicare annual wellness visit, initial- Primary Routine general medical examination at a [facility] facility Type 2 diabetes mellitus without complication, without long-term current use of insulin (HCC) Hypertension, unspecified type Mixed hyperlipidemia Anxiety state Anxiety state, unspecified Hypothyroidism, unspecified type History of COVID-19 [facility]* Diagnosis Hypertension, unspecified type [facility]* Diagnosis Anxiety state Anxiety state, unspecified [facility]* Diagnosis Anxiety state Anxiety state, unspecified Hypertension, unspecified type [facility]* Diagnosis Mixed hyperlipidemia Anxiety state Anxiety state, unspecified Hypertension, unspecified type [facility]* Diagnosis Acute hip pain, right [facility] Diagnosis Hip pain Pain in joint, pelvic region and thigh [facility] Diagnosis Viral URI with cough Acute upper respiratory infections of unspecified site [facility]* Diagnosis Anxiety state Anxiety state, unspecified [facility]* Diagnosis Hypothyroidism, unspecified type Anxiety state Anxiety state, unspecified [facility]* Diagnosis Mixed hyperlipidemia- Primary Type 2 diabetes mellitus without complication, without long-term current use of insulin (HCC) Hypertension, unspecified type Hypothyroidism, unspecified type [facility]* Diagnosis Medicare annual wellness visit, subsequent- Primary Routine general medical examination at a [facility] care facility Sciatica, right side Acute pain of left knee Type 2 diabetes mellitus without complication, without long-term current use of insulin (HCC) Hypothyroidism, unspecified type Asthma due to seasonal allergies Anxiety state Anxiety state, unspecified Smoking Tobacco use disorder Screening for depression [facility] Diagnosis Anxiety state Anxiety state, unspecified documented in this encounter [facility] note* Diagnosis Type 2 diabetes mellitus without complication, without long-term current use of insulin (HCC)- Primary Sciatica, right side Hypothyroidism, unspecified type Anxiety state Anxiety state, unspecified Asthma due to seasonal allergies Mixed hyperlipidemia Smoking Tobacco use disorder documented in this encounter [facility] note* Diagnosis Asthma due to seasonal allergies Sciatica, right side Type 2 diabetes mellitus without complication, without long-term current use of insulin (HCC) documented in this encounter [facility] note* Diagnosis Type 2 diabetes mellitus with other specified complication, without long-term current use of insulin (HCC)- Primary documented in this encounter [facility] note* Diagnosis Anxiety state Anxiety state, unspecified documented in this encounter [facility] note* Diagnosis Type 2 diabetes mellitus without complication, without long-term current use of insulin (HCC) documented in this encounter [facility] note* Diagnosis Anxiety state Anxiety state, unspecified documented in this encounter [facility] note* Diagnosis Mixed hyperlipidemia Hypertension, unspecified type documented [facility] encounter [facility] Discharge instructions Additional Instructions Ambulatory pulse ox 97% on room air. Monitor pulse ox at home, if drops below 88 return to ED for reevaluation otherwise follow-up with your doctor.[facility] Work Phone: Reason for referral (narrative)* Diagnostic Procedure Only (Routine) - Closed Specialty Diagnoses / Procedures Referred By Contac t Referred To Contact XR IMAGING Diagnoses Hip pain Procedures XR HIP BILATERAL 5V PEL/AP/LAT EACH HIP RADEX HIPS BILATERAL WITH PELVIS MINIMUM 5 VIEWS Silvia Vazquez, OLIVIA [address] [place] [address] Xr Imaging Referral ID Status Reason Start Date Expiration Date V isits Requested Visits Authorized [id number] Closed Auto-Generate d Referral 07/04/2022 08/03/2023 1 1 [facility] for referral (narrative)* Diagnostic Procedure Only (Urgent) - Closed Specialty Diagnoses / Procedures Referred By Contac t Referred To Contact XR IMAGING Diagnoses Rib injury Procedures XR RIBS/CHEST 3V AP RIB/OBLS/CXR LEFT RADEX RIBS UNI W/POSTEROANT CH MINIMUM 3 VIEWS Spencer Lopez APRN.CHEF KITCHEN MANAGER [address] [place] [address] [place] [address] Referral ID Status Reason Start Date Expiration Date V isits Requested Visits Authorized [id number] Closed Auto-Generate d Referral 04/22/2023 05/21/2024 1 1 [facility] for referral (narrative)* Diagnostic Procedure Only (Urgent) - Closed Specialty Diagnoses / Procedures Referred By Contac t Referred To Contact XR IMAGING Diagnoses Acute hip pain, right Procedures XR HIP GENERAL 3V PELV/AP/LAT RIGHT RADEX HIP UNILATERAL WITH PELVIS 2-3 VIEWS David Alexis MD [address] [place] [address] [place] [address] Referral ID Status Reason Start Date Expiration Date V isits Requested Visits Authorized [id number] Closed Auto-Generate d Referral 11/22/2022 12/22/2023 1 1 [facility] for referral (narrative)* Diagnostic Procedure Only (Routine) - Closed Specialty Diagnoses / Procedures Referred By Contac t Referred To Contact XR IMAGING Diagnoses Hip pain Procedures XR HIP BILATERAL 5V PEL/AP/LAT EACH HIP RADEX HIPS BILATERAL WITH PELVIS MINIMUM 5 VIEWS Silvia Vazquez APRN.CHEF KITCHEN MANAGER [address] [place] [address] [place] [address] Referral ID Status Reason Start Date Expiration Date V isits Requested Visits Authorized [id number] Closed Auto-Generate d Referral 07/04/2022 08/03/2023 1 1 [facility] for visit Narrative* Diagnostic Procedure Only (Urgent) - Closed Specialty Diagnoses / Procedures Referred By Contac t Referred To Contact XR IMAGING Diagnoses Rib injury Procedures XR RIBS/CHEST 3V AP RIB/OBLS/CXR LEFT RADEX RIBS UNI W/POSTEROANT CH MINIMUM 3 VIEWS Spencer Lopez APRN.CHEF KITCHEN MANAGER [address] [place] [address] [place] [address] Referral ID Status Reason Start Date Expiration Date V isits Requested Visits Authorized [id number] Closed Auto-Generate d Referral 04/22/2023 05/21/2024 1 1 [facility] for visit Narrative* Diagnostic Procedure Only (Urgent) - Closed Specialty Diagnoses / Procedures Referred By Contac t Referred To Contact XR IMAGING Diagnoses Acute hip pain, right Procedures XR HIP GENERAL 3V PELV/AP/LAT RIGHT RADEX HIP UNILATERAL WITH PELVIS 2-3 VIEWS David Alexis MD [address] [place] [address] [place] [address] Referral ID Status Reason Start Date Expiration Date V isits Requested Visits Authorized [id number] Closed Auto-Generate d Referral 11/22/2022 12/22/2023 1 1 [facility] for visit Narrative* Diagnostic Procedure Only (Routine) - Closed Specialty Diagnoses / Procedures Referred By Contac t Referred To Contact XR IMAGING Diagnoses Hip pain Procedures XR HIP BILATERAL 5V PEL/AP/LAT EACH HIP RADEX HIPS BILATERAL WITH PELVIS MINIMUM 5 VIEWS Silvia Vazquez APRN.CHEF KITCHEN MANAGER [address] [place] [address] [place] [address] Referral ID Status Reason Start Date Expiration Date V isits Requested Visits Authorized [id number] Closed Auto-Generate d Referral 07/04/2022 08/03/2023 1 1 [facility] Summary Purpose Family History No Family History Records FoundNo Family History Records FoundNo Family History Records Found Advance Directives No Advanced Directives Records FoundDocuments on File Type Date Recorded 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 Advance Directive(s) 05/11/2021 4:29 PM Advance Directive Response Recorded Date/ Time Living Will No February 22 10:11pm Power of Event Coordinator Marketing And Sales No February 22 023 10:11pm Advance Directive Response Recorded Date/ Time Living Will No April 19 8:36pm Power of Event Coordinator Marketing And Sales No April 19, 2023 8:36pm Medications Administered [...] section and content) DATE CREATED AUTHOR 07/19/2021 [facility] DATE CREATED AUTHOR AUTHOR'S ORGANIZ ATION 03/02/2023 [facility] DATE CREATED AUTHOR AUTHOR'S ORGANIZ ATION 05/06/2025 [facility] Source Comments (unrecognize d section and content) In the event this informatio n is protected by the Federal Confidentiality of Alcohol and Drug Abuse Patient Records regulations: The Federal rules restrict any use of the information to criminally investigate or prosecute any alcohol or drug abuse patient.[facility] event this information is protected by the Federal Confidentiality of Alcohol and Drug Abuse Patient Records regulations: The Federal rules restrict any use of the information to criminally investigate or prosecute any alcohol or drug abuse patient.[facility] the event this information is protected by the Federal Confidentiality of Alcohol and Drug Abuse Patient Records regulations: The Federal rules restrict any use of the information to criminally investigate or prosecute any alcohol or drug abuse patient.[facility] the event this information is protected by the Federal Confidentiality of Alcohol and Drug Abuse Patient Records regulations: The Federal rules restrict any use of the information to criminally investigate or prosecute any alcohol or drug abuse patient.[facility] the event this information is protected by the Federal Confidentiality of Alcohol and Drug Abuse Patient Records regulations: The Federal rules restrict any use of the information to criminally investigate or prosecute any alcohol or drug abuse patient.[facility] HospitalIn the event this information is protected by the Federal Confidentiality of Alcohol and Drug Abuse Patient Records regulations: The Federal rules restrict any use of the information to criminally investigate or prosecute any alcohol or drug abuse patient.[facility]In the event this information is protected by the Federal Confidentiality of Alcohol and Drug Abuse Patient Records regulations: The Federal rules restrict any use of the information to criminally investigate or prosecute any alcohol or drug abuse patient.[facility]In the event this information is protected by the Federal Confidentiality of Alcohol and Drug Abuse Patient Records regulations: The Federal rules restrict any use of the information to criminally investigate or prosecute any alcohol or drug abuse patient.[facility]In the event this information is protected by the Federal Confidentiality of Alcohol and Drug Abuse Patient Records regulations: The Federal rules restrict any use of the information to criminally investigate or prosecute any alcohol or drug abuse patient.[facility] HospitalIn the event this information is protected by the Federal Confidentiality of Alcohol and Drug Abuse Patient Records regulations: The Federal rules restrict any use of the information to criminally investigate or prosecute any alcohol or drug abuse patient.[facility] HospitalIn the event this information is protected by the Federal Confidentiality of Alcohol and Drug Abuse Patient Records regulations: The Federal rules restrict any use of the information to criminally investigate or prosecute any alcohol or drug abuse patient.[facility] HospitalIn the event this information is protected by the Federal Confidentiality of Alcohol and Drug Abuse Patient Records regulations: The Federal rules restrict any use of the information to criminally investigate or prosecute any alcohol or drug abuse patient.[facility] HospitalIn the event this information is protected by the Federal Confidentiality of Alcohol and Drug Abuse Patient Records regulations: The Federal rules restrict any use of the information to criminally investigate or prosecute any alcohol or drug abuse patient.[facility] HospitalIn the event this information is protected by the Federal Confidentiality of Alcohol and Drug Abuse Patient Records regulations: The Federal rules restrict any use of the information to criminally investigate or prosecute any alcohol or drug abuse patient.[facility] HospitalIn the event this information is protected by the Federal Confidentiality of Alcohol and Drug Abuse Patient Records regulations: The Federal rules restrict any use of the information to criminally investigate or prosecute any alcohol or drug abuse patient.[facility] HospitalIn the event this information is protected by the Federal Confidentiality of Alcohol and Drug Abuse Patient Records regulations: The Federal rules restrict any use of the information to criminally investigate or prosecute any alcohol or drug abuse patient.[facility] HospitalIn the event this information is protected by the Federal Confidentiality of Alcohol and Drug Abuse Patient Records regulations: The Federal rules restrict any use of the information to criminally investigate or prosecute any alcohol or drug abuse patient.[facility] HospitalIn the event this information is protected by the Federal Confidentiality of Alcohol and Drug Abuse Patient Records regulations: The Federal rules restrict any use of the information to criminally investigate or prosecute any alcohol or drug abuse patient.[facility] HospitalIn the event this information is protected by the Federal Confidentiality of Alcohol and Drug Abuse Patient Records regulations: The Federal rules restrict any use of the information to criminally investigate or prosecute any alcohol or drug abuse patient.[facility] HospitalIn the event this information is protected by the Federal Confidentiality of Alcohol and Drug Abuse Patient Records regulations: The Federal rules restrict any use of the information to criminally investigate or prosecute any alcohol or drug abuse patient.[facility] HospitalIn the event this information is protected by the Federal Confidentiality of Alcohol and Drug Abuse Patient Records regulations: The Federal rules restrict any use of the information to criminally investigate or prosecute any alcohol or drug abuse patient.[facility] HospitalIn the event this information is protected by the Federal Confidentiality of Alcohol and Drug Abuse Patient Records regulations: The Federal rules restrict any use of the information to criminally investigate or prosecute any alcohol or drug abuse patient.[facility] HospitalIn the event this information is protected by the Federal Confidentiality of Alcohol and Drug Abuse Patient Records regulations: The Federal rules restrict any use of the information to criminally investigate or prosecute any alcohol or drug abuse patient.[facility] HospitalIn the event this information is protected by the Federal Confidentiality of Alcohol and Drug Abuse Patient Records regulations: The Federal rules restrict any use of the information to criminally investigate or prosecute any alcohol or drug abuse patient.[facility] HospitalIn the event this information is protected by the Federal Confidentiality of Alcohol and Drug Abuse Patient Records regulations: The Federal rules restrict any use of the information to criminally investigate or prosecute any alcohol or drug abuse patient.[facility] the event this information is protected by the Federal Confidentiality of Alcohol and Drug Abuse Patient Records regulations: The Federal rules restrict any use of the information to criminally investigate or prosecute any alcohol or drug abuse patient.[facility] HospitalIn the event this information is protected by the Federal Confidentiality of Alcohol and Drug Abuse Patient Records regulations: The Federal rules restrict any use of the information to criminally investigate or prosecute any alcohol or drug abuse patient.[facility] HospitalIn the event this information is protected by the Federal Confidentiality of Alcohol and Drug Abuse Patient Records regulations: The Federal rules restrict any use of the information to criminally investigate or prosecute any alcohol or drug abuse patient.[facility] HospitalIn the event this information is protected by the Federal Confidentiality of Alcohol and Drug Abuse Patient Records regulations: The Federal rules restrict any use of the information to criminally investigate or prosecute any alcohol or drug abuse patient.[facility] HospitalIn the event this information is protected by the Federal Confidentiality of Alcohol and Drug Abuse Patient Records regulations: The Federal rules restrict any use of the information to criminally investigate or prosecute any alcohol or drug abuse patient.[facility] HospitalIn the event this information is protected by the Federal Confidentiality of Alcohol and Drug Abuse Patient Records regulations: The Federal rules restrict any use of the information to criminally investigate or prosecute any alcohol or drug abuse patient.[facility] HospitalIn the event this information is protected by the Federal Confidentiality of Alcohol and Drug Abuse Patient Records regulations: The Federal rules restrict any use of the information to criminally investigate or prosecute any alcohol or drug abuse patient.[facility] HospitalIn the event this information is protected by the Federal Confidentiality of Alcohol and Drug Abuse Patient Records regulations: The Federal rules restrict any use of the information to criminally investigate or prosecute any alcohol or drug abuse patient.[facility] HospitalIn the event this information is protected by the Federal Confidentiality of Alcohol and Drug Abuse Patient Records regulations: The Federal rules restrict any use of the information to criminally investigate or prosecute any alcohol or drug abuse patient.[facility] HospitalIn the event this information is protected by the Federal Confidentiality of Alcohol and Drug Abuse Patient Records regulations: The Federal rules restrict any use of the information to criminally investigate or prosecute any alcohol or drug abuse patient.[facility] HospitalIn the event this information is protected by the Federal Confidentiality of Alcohol and Drug Abuse Patient Records regulations: The Federal rules restrict any use of the information to criminally investigate or prosecute any alcohol or drug abuse patient.[facility] HospitalIn the event this information is protected by the Federal Confidentiality of Alcohol and Drug Abuse Patient Records regulations: The Federal rules restrict any use of the information to criminally investigate or prosecute any alcohol or drug abuse patient.[facility] HospitalIn the event this information is protected by the Federal Confidentiality of Alcohol and Drug Abuse Patient Records regulations: The Federal rules restrict any use of the information to criminally investigate or prosecute any alcohol or drug abuse patient.[facility] HospitalIn the event this information is protected by the Federal Confidentiality of Alcohol and Drug Abuse Patient Records regulations: The Federal rules restrict any use of the information to criminally investigate or prosecute any alcohol or drug abuse patient.[facility] HospitalIn the event this information is protected by the Federal Confidentiality of Alcohol and Drug Abuse Patient Records regulations: The Federal rules restrict any use of the information to criminally investigate or prosecute any alcohol or drug abuse patient.[facility] HospitalIn the event this information is protected by the Federal Confidentiality of Alcohol and Drug Abuse Patient Records regulations: The Federal rules restrict any use of the information to criminally investigate or prosecute any alcohol or drug abuse patient.[facility] HospitalIn the event this information is protected by the Federal Confidentiality of Alcohol and Drug Abuse Patient Records regulations: The Federal rules restrict any use of the information to criminally investigate or prosecute any alcohol or drug abuse patient.[facility] HospitalIn the event this information is protected by the Federal Confidentiality of Alcohol and Drug Abuse Patient Records regulations: The Federal rules restrict any use of the information to criminally investigate or prosecute any alcohol or drug abuse patient.[facility] HospitalIn the event this information is protected by the Federal Confidentiality of Alcohol and Drug Abuse Patient Records regulations: The Federal rules restrict any use of the information to criminally investigate or prosecute any alcohol or drug abuse patient.[facility] HospitalIn the event this information is protected by the Federal Confidentiality of Alcohol and Drug Abuse Patient Records regulations: The Federal rules restrict any use of the information to criminally investigate or prosecute any alcohol or drug abuse patient.[facility] HospitalIn the event this information is protected by the Federal Confidentiality of Alcohol and Drug Abuse Patient Records regulations: The Federal rules restrict any use of the information to criminally investigate or prosecute any alcohol or drug abuse patient.[facility] HospitalIn the event this information is protected by the Federal Confidentiality of Alcohol and Drug Abuse Patient Records regulations: The Federal rules restrict any use of the information to criminally investigate or prosecute any alcohol or drug abuse patient.[facility] HospitalIn the event this information is protected by the Federal Confidentiality of Alcohol and Drug Abuse Patient Records regulations: The Federal rules restrict any use of the information to criminally investigate or prosecute any alcohol or drug abuse patient.[facility] HospitalIn the event this information is protected by the Federal Confidentiality of Alcohol and Drug Abuse Patient Records regulations: The Federal rules restrict any use of the information to criminally investigate or prosecute any alcohol or drug abuse patient.[facility] HospitalIn the event this information is protected by the Federal Confidentiality of Alcohol and Drug Abuse Patient Records regulations: The Federal rules restrict any use of the information to criminally investigate or prosecute any alcohol or drug abuse patient.[facility] HospitalIn the event this information is protected by the Federal Confidentiality of Alcohol and Drug Abuse Patient Records regulations: The Federal rules restrict any use of the information to criminally investigate or prosecute any alcohol or drug abuse patient.[facility] HospitalIn the event this information is protected by the Federal Confidentiality of Alcohol and Drug Abuse Patient Records regulations: The Federal rules restrict any use of the information to criminally investigate or prosecute any alcohol or drug abuse patient.[facility] HospitalIn the event this information is protected by the Federal Confidentiality of Alcohol and Drug Abuse Patient Records regulations: The Federal rules restrict any use of the information to criminally investigate or prosecute any alcohol or drug abuse patient.[facility] HospitalIn the event this information is protected by the Federal Confidentiality of Alcohol and Drug Abuse Patient Records regulations: The Federal rules restrict any use of the information to criminally investigate or prosecute any alcohol or drug abuse patient.[facility] HospitalIn the event this information is protected by the Federal Confidentiality of Alcohol and Drug Abuse Patient Records regulations: The Federal rules restrict any use of the information to criminally investigate or prosecute any alcohol or drug abuse patient.[facility] HospitalIn the event this information is protected by the Federal Confidentiality of Alcohol and Drug Abuse Patient Records regulations: The Federal rules restrict any use of the information to criminally investigate or prosecute any alcohol or drug abuse patient.[facility] HospitalIn the event this information is protected by the Federal Confidentiality of Alcohol and Drug Abuse Patient Records regulations: The Federal rules restrict any use of the information to criminally investigate or prosecute any alcohol or drug abuse patient.[facility] HospitalIn the event this information is protected by the Federal Confidentiality of Alcohol and Drug Abuse Patient Records regulations: The Federal rules restrict any use of the information to criminally investigate or prosecute any alcohol or drug abuse patient.[facility] HospitalIn the event this information is protected by the Federal Confidentiality of Alcohol and Drug Abuse Patient Records regulations: The Federal rules restrict any use of the information to criminally investigate or prosecute any alcohol or drug abuse patient.[facility] HospitalIn the event this information is protected by the Federal Confidentiality of Alcohol and Drug Abuse Patient Records regulations: The Federal rules restrict any use of the information to criminally investigate or prosecute any alcohol or drug abuse patient.[facility] HospitalIn the event this information is protected by the Federal Confidentiality of Alcohol and Drug Abuse Patient Records regulations: The Federal rules restrict any use of the information to criminally investigate or prosecute any alcohol or drug abuse patient.[facility] HospitalIn the event this information is protected by the Federal Confidentiality of Alcohol and Drug Abuse Patient Records regulations: The Federal rules restrict any use of the information to criminally investigate or prosecute any alcohol or drug abuse patient.[facility] HospitalIn the event this information is protected by the Federal Confidentiality of Alcohol and Drug Abuse Patient Records regulations: The Federal rules restrict any use of the information to criminally investigate or prosecute any alcohol or drug abuse patient.[facility] HospitalIn the event this information is protected by the Federal Confidentiality of Alcohol and Drug Abuse Patient Records regulations: The Federal rules restrict any use of the information to criminally investigate or prosecute any alcohol or drug abuse patient.[facility] HospitalIn the event this information is protected by the Federal Confidentiality of Alcohol and Drug Abuse Patient Records regulations: The Federal rules restrict any use of the information to criminally investigate or prosecute any alcohol or drug abuse patient.[facility] HospitalIn the event this information is protected by the Federal Confidentiality of Alcohol and Drug Abuse Patient Records regulations: The Federal rules restrict any use of the information to criminally investigate or prosecute any alcohol or drug abuse patient.[facility] HospitalIn the event this information is protected by the Federal Confidentiality of Alcohol and Drug Abuse Patient Records regulations: The Federal rules restrict any use of the information to criminally investigate or prosecute any alcohol or drug abuse patient.[facility] HospitalIn the event this information is protected by the Federal Confidentiality of Alcohol and Drug Abuse Patient Records regulations: The Federal rules restrict any use of the information to criminally investigate or prosecute any alcohol or drug abuse patient.[facility] HospitalIn the event this information is protected by the Federal Confidentiality of Alcohol and Drug Abuse Patient Records regulations: The Federal rules restrict any use of the information to criminally investigate or prosecute any alcohol or drug abuse patient.[facility] HospitalIn the event this information is protected by the Federal Confidentiality of Alcohol and Drug Abuse Patient Records regulations: The Federal rules restrict any use of the information to criminally investigate or prosecute any alcohol or drug abuse patient.[facility] HospitalIn the event this information is protected by the Federal Confidentiality of Alcohol and Drug Abuse Patient Records regulations: The Federal rules restrict any use of the information to criminally investigate or prosecute any alcohol or drug abuse patient.[facility] HospitalIn the event this information is protected by the Federal Confidentiality of Alcohol and Drug Abuse Patient Records regulations: The Federal rules restrict any use of the information to criminally investigate or prosecute any alcohol or drug abuse patient.[facility] HospitalIn the event this information is protected by the Federal Confidentiality of Alcohol and Drug Abuse Patient Records regulations: The Federal rules restrict any use of the information to criminally investigate or prosecute any alcohol or drug abuse patient.[facility] HospitalIn the event this information is protected by the Federal Confidentiality of Alcohol and Drug Abuse Patient Records regulations: The Federal rules restrict any use of the information to criminally investigate or prosecute any alcohol or drug abuse patient.[facility] HospitalIn the event this information is protected by the Federal Confidentiality of Alcohol and Drug Abuse Patient Records regulations: The Federal rules restrict any use of the information to criminally investigate or prosecute any alcohol or drug abuse patient.[facility] the event this information is protected by the Federal Confidentiality of Alcohol and Drug Abuse Patient Records regulations: The Federal rules restrict any use of the information to criminally investigate or prosecute any alcohol or drug abuse patient.[facility] HospitalIn the event this information is protected by the Federal Confidentiality of Alcohol and Drug Abuse Patient Records regulations: The Federal rules restrict any use of the information to criminally investigate or prosecute any alcohol or drug abuse patient.[facility] HospitalIn the event this information is protected by the Federal Confidentiality of Alcohol and Drug Abuse Patient Records regulations: The Federal rules restrict any use of the information to criminally investigate or prosecute any alcohol or drug abuse patient.[facility] HospitalIn the event this information is protected by the Federal Confidentiality of Alcohol and Drug Abuse Patient Records regulations: The Federal rules restrict any use of the information to criminally investigate or prosecute any alcohol or drug abuse patient.[facility] HospitalIn the event this information is protected by the Federal Confidentiality of Alcohol and Drug Abuse Patient Records regulations: The Federal rules restrict any use of the information to criminally investigate or prosecute any alcohol or drug abuse patient.[facility] HospitalIn the event this information is protected by the Federal Confidentiality of Alcohol and Drug Abuse Patient Records regulations: The Federal rules restrict any use of the information to criminally investigate or prosecute any alcohol or drug abuse patient.[facility] Reason for Visit (unrecogniz ed section and [...] Refill Request 01/21/2023 Reason Onset Date Comments [facility] Navigation Outreach 02/05/2023 [employer] Low HCC [...] Refill Request 07/21/2024 Reason Onset Date Comments [facility] Navigation Outreach 08/21/2024 [employer] High Risk - Attempt 1 Reason Onset Date Comments CDM 09/11/2024 Enrollment outre ach Reason Comments Follow Up 3 month follow up wi th labs Reason Onset Date Comments [facility] Navigation Outreach 09/24/2024 humansarah dhaliwal Reason [...] Care Teams (unrecognized sec tion and content) Barrel Bander Relationship Specialty Start Date End Date Deirdre Quiñones MD [address] [place] [address] PCP - General Family Practice 05/19/18 Barrel Bander Relationship Specialty Start Date End Date Deirdre Quiñones MD [address] [place] [address] PCP - General Family Practice 05/19/18 Barrel Bander Relationship Specialty Start Date End Date Deirdre Quiñones MD [address] [place] [address] PCP - General Family Practice 05/19/18 Barrel Bander Relationship Specialty Start Date End Date Deirdre Quiñones MD [address] [place] [address] PCP - General Family Practice 05/19/18 Barrel Bander Relationship Specialty Start Date End Date Deirdre Quiñones MD [facility] [place] [address] PCP - General Family Practice 05/19/18 Barrel Bander Relationship Specialty Start Date End Date Dierdre Quiñones MD [address] [place] [address] PCP - General Family Practice 05/19/18 Barrel Bander Relationship Specialty Start Date End Date Deirdre Quiñones MD [address] [place] [address] PCP - General Family Practice 05/19/18 Barrel Bander Relationship Specialty Start Date End Date Deirdre Quiñones MD [address] [place] [address] PCP - General Family Practice 05/19/18 Barrel Bander Relationship Specialty Start Date End Date Deirdre Quiñones MD [address] [place] [address] PCP - General Family Practice 05/19/18 Barrel Bander Relationship Specialty Start Date End Date Deirdre Quiñones MD [address] [place] [address] PCP - General Family Medicine 05/19/18 Barrel Bander Relationship Specialty Start Date End Date Deirdre Quiñones MD [address] [place] [address] PCP - General Family Medicine 05/19/18 Barrel Bander Relationship Specialty Start Date End Date Deirdre Quiñones MD [address] [place] [address] PCP - General Family Medicine 05/19/18 Barrel Bander Relationship Specialty Start Date End Date Deirdre Quiñones MD [address] [place] [address] PCP - General Family Medicine 05/19/18 Barrel Bander Relationship Specialty Start Date End Date Deirdre Quiñones MD [address] [place] [address] PCP - General Family Medicine 05/19/18 Barrel Bander Relationship Specialty Start Date End Date Deirdre Quiñones MD [address] [place] [address] PCP - General Family Medicine 05/19/18 Barrel Bander Relationship Specialty Start Date End Date Deirdre Quiñones MD [address] [place] [address] PCP - General Family Medicine 05/19/18 Barrel Bander Relationship Specialty Start Date End Date Deirdre Quiñones MD [address] [place] [address] PCP - General Family Medicine 05/19/18 Barrel Bander Relationship Specialty Start Date End Date Deirdre Quiñones MD [address] [place] [address] PCP - General Family Medicine 05/19/18 Barrel Bander Relationship Specialty Start Date End Date Deirdre Quiñones MD [address] [place] [address] PCP - General Family Medicine 05/19/18 Barrel Bander Relationship Specialty Start Date End Date Deirdre Quiñones MD [address] [place] [address] PCP - General Family Medicine 05/19/18 Barrel Bander Relationship Specialty Start Date End Date Deirdre Quiñones MD [address] [place] [address] PCP - General Family Medicine 05/19/18 Barrel Bander Relationship Specialty Start Date End Date Deirdre Quiñones MD [address] [place] [address] PCP - General Family Medicine 05/19/18 Barrel Bander Relationship Specialty Start Date End Date Deirdre Quiñones MD [address] [place] [address] PCP - General Family Medicine 05/19/18 Barrel Bander Relationship Specialty Start Date End Date Deirdre Quiñones MD [address] [place] [address] PCP - General Family Medicine 05/19/18 Barrel Bander Relationship Specialty Start Date End Date Deirdre Quiñones MD [address] [place] [address] PCP - General Family Medicine 05/19/18 Team [...] Thiago Jarvis , DO Emergency Provider Active Barrel Bander Relationship Specialty Start Date End Date Deirdre Quiñones MD [address] [place] [address] PCP - General Family Medicine 05/19/18 Team [...] Goldy Lockwood , DO Emergency Provider Active Barrel Bander Relationship Specialty Start Date End Date Deirdre Quiñones MD [address] [place] [address] PCP - General Family Medicine 05/19/18 Barrel Bander Relationship Specialty Start Date End Date Deirdre Quiñones MD [address] [place] [address] PCP - General Family Medicine 05/19/18 Barrel Bander Relationship Specialty Start Date End Date Deirdre Quiñones MD [address] [place] [address] PCP - General Family Medicine 05/19/18 Barrel Bander Relationship Specialty Start Date End Date Deirdre Quiñones MD [address] [place] [address] PCP - General Family Medicine 05/19/18 Barrel Bander Relationship Specialty Start Date End Date Deirdre Quiñones MD [address] [place] [address] PCP - General Family Medicine 05/19/18 Barrel Bander Relationship Specialty Start Date End Date Deirdre Quiñones MD [address] [place] [address] PCP - General Family Medicine 05/19/18 Barrel Bander Relationship Specialty Start Date End Date Deirdre Quiñones MD [address] [place] [address] PCP - General Family Medicine 05/19/18 Barrel Bander Relationship Specialty Start Date End Date Deirdre Quiñones MD [address] [place] [address] PCP - General Family Medicine 05/19/18 Barrel Bander Relationship Specialty Start Date End Date Deirdre Quiñones MD [address] [place] [address] PCP - General Family Medicine 05/19/18 Barrel Bander Relationship Specialty Start Date End Date Deirdre Quiñones MD [address] [place] [address] PCP - General Family Medicine 05/19/18 Barrel Bander Relationship Specialty Start Date End Date Deirdre Quiñones MD [address] [place] [address] PCP - General Family Medicine 05/19/18 Barrel Bander Relationship Specialty Start Date End Date Deirdre Quiñones MD [address] [place] [address] PCP - General Family Medicine 05/19/18 Silvia Vazquez APRN.CNP [address] [place] [address] [employer] Family Medicine 06/14/24 Barrel Bander Relationship Specialty Start Date End Date Deirdre Quiñones MD [address] [place] [address] PCP - General Family Medicine 05/19/18 Silvia Vazquez APRN.CHEF KITCHEN MANAGER [address] [place] [address] [employer] Family Medicine 06/14/24 Jay Tran APRN.CHEF KITCHEN MANAGER [address] [place] [address] [employer] Family Medicine 06/23/24 Barrel Bander Relationship Specialty Start Date End Date Deirdre Quiñones MD [address] [place] [address] PCP - General Family Medicine 05/19/18 Silvia Vazquez APRN.CHEF KITCHEN MANAGER [address] [place] [address] [employer] Family [facility] 06/14/24 Jay Tran APRN.CHEF KITCHEN MANAGER [address] [place] [address] [employer] Family Medicine 06/23/24 Barrel Bander Relationship Specialty Start Date End Date Deirdre Quiñones MD [address] [place] [address] PCP - General Family Medicine 05/19/18 Silvia Vazquez APRN.CHEF KITCHEN MANAGER [address] [place] [address] [employer] Family Medicine 06/14/24 Jay Tran APRN.CHEF KITCHEN MANAGER [address] [place] [address] [employer] Family [facility] 06/23/24 Denise Edward, syrup blenderCorrugator Operator 09/07/24 Barrel Bander Relationship Specialty Start Date End Date Deirdre Quiñones MD [address] [place] [address] PCP - General Family Medicine 05/19/18 Silvia Vazquez APRN.CHEF KITCHEN MANAGER [address] [place] [address] [employer] Family Medicine 06/14/24 Jay Tran APRN.CHEF KITCHEN MANAGER [address] [place] [address] [employer] [facility] 06/23/24 Denise Edward, syrup blenderCorrugator Operator 09/07/24 Barrel Bander Relationship Specialty Start Date End Date Deirdre Quiñones MD [address] [place] [address] PCP - General Family Medicine 05/19/18 Silvia Vazquez DEBRIDGING MACHINE OPERATOR.CHEF KITCHEN MANAGER [address] [place] [address] [employer] Family [facility] 06/14/24 Jay Tran APRN.CHEF KITCHEN MANAGER [address] [place] [address] [employer] [facility] 06/23/24 Denise Edward, syrup blenderCorrugator Operator 09/07/24 Barrel Bander Relationship Specialty Start Date End Date Deirdre Quiñones MD [address] [place] [address] PCP - General Family Medicine 05/19/18 Silvia Vazquez APRN.CHEF KITCHEN MANAGER [address] [place] [address] [employer] Family [facility] 06/14/24 Jay Tran APRN.CHEF KITCHEN MANAGER [address] [place] [address] [employer] Family [facility] 06/23/24 Denise Edward, syrup blenderCorrugator Operator 09/07/24 Barrel Bander Relationship Specialty Start Date End Date Deirdre Quiñones MD [address] [place] [address] PCP - General Family Medicine 05/19/18 Silvia Vazquez APRN.CHEF KITCHEN MANAGER [address] [place] [address] [employer] Family [facility] 06/14/24 Jay Tran APRN.CHEF KITCHEN MANAGER [address] [place] [address] [employer] Family [facility] 06/23/24 Denise Edward syrup blenderCorrugator Operator 09/07/24 Barrel Bander Relationship Specialty Start Date End Date Deirdre Quiñones MD [address] [place] [address] PCP - General Family Medicine 05/19/18 Silvia Vazquez APRN.CHEF KITCHEN MANAGER [address] [place] [address] [employer] [facility] 06/14/24 Jay Tran APRN.CHEF KITCHEN MANAGER [address] [place] [address] [employer] [facility] 06/23/24 Denise Edward, syrup blenderCorrugator Operator 09/07/24 Barrel Bander Relationship Specialty Start Date End Date Deirdre Quiñones MD [address] [place] [address] PCP - General Family Medicine 05/19/18 Silvia Vazquez APRN.CHEF KITCHEN MANAGER [address] [place] [address] [employer] [facility] 06/14/24 Jay Tran APRN.CHEF KITCHEN MANAGER [address] [place] [address] [employer] Family [facility] 06/23/24 Denise Edward syrup blenderCorrugator Operator 09/07/24 Barrel Bander Relationship Specialty Start Date End Date Deirdre Quiñones MD [address] [place] [address] PCP - General Family Medicine 05/19/18 Silvia Vazquez APRN.CHEF KITCHEN MANAGER [address] [place] [address] [employer] [facility] 06/14/24 Jay Tran APRN.CHEF KITCHEN MANAGER [address] [place] [address] [employer] [facility] 06/23/24 Denise Edward, syrup blenderCorrugator Operator 09/07/24 Barrel Bander Relationship Specialty Start Date End Date Deirdre Quiñones MD [address] [place] [address] PCP - General Family Medicine 05/19/18 Silvia Vazquez APRN.CHEF KITCHEN MANAGER [address] [place] [address] [employer] [facility] 06/14/24 Jay Tran APRN.CHEF KITCHEN MANAGER [address] [place] [address] [employer] [facility] 06/23/24 Denise Edward, syrup blenderCorrugator Operator 09/07/24 Barrel Bander Relationship Specialty Start Date End Date Deirdre Quiñones MD [address] [place] [address] PCP - General Family Medicine 05/19/18 Jay Tran APRN.CHEF KITCHEN MANAGER [address] [place] [address] [employer] [facility] 06/23/24 Denise Edward syrup blenderCorrugator Operator 09/07/24 Barrel Bander Relationship Specialty Start Date End Date Deirdre Quiñones MD [address] [place] [address] PCP - General Family Medicine 05/19/18 Jay Tran DEBRIDGING MACHINE OPERATOR.CHEF KITCHEN MANAGER [address] [place] [address] [employer] [facility] 06/23/24 Denise Edward syrup blenderCorrugator Operator 09/07/24 Barrel Bander Relationship Specialty Start Date End Date Deirdre Quiñones MD [address] [place] [address] PCP - General Family Medicine 05/19/18 Jay Tran DEBRIDGING MACHINE OPERATOR.CHEF KITCHEN MANAGER [address] [place] [address] [employer] Family [facility] 06/23/24 Denise Edward, syrup blenderCorrugator Operator 09/07/24 Barrel Bander Relationship Specialty Start Date End Date Deirdre Quiñones MD [address] [place] [address] PCP - General Family Medicine 05/19/18 Jay Tran APRN.CHEF KITCHEN MANAGER [address] [place] [address] [facility] 06/23/24 Denise Edward syrup blenderCorrugator Operator 09/07/24 Barrel Bander Relationship Specialty Start Date End Date Deirdre Quiñones MD [address] [place] [address] PCP - General Family Medicine 05/19/18 Jay Tran APRN.CHEF KITCHEN MANAGER [address] [place] [address] [facility] 06/23/24 Barrel Bander Relationship Specialty Start Date End Date Deirdre Quiñones MD [address] [place] [address] PCP - General Family Medicine 05/19/18 Jay Tran APRN.CHEF KITCHEN MANAGER [address] [place] [address] [facility] 06/23/24 Goals (unrecognized section and content) [...] BE BASED ON THE PRIMARY CLINICAL RECORDS. [employer] [facility]. provides no warranty or guarantee of the accuracy or completeness of information in this document.
--- NOTE | 2025-06-18 14:38 | PCM.HP.STD ---
HPI - General General Date of Admission: 06/18/25 Date of Service: 06/18/25 Chief Complaint: chest pain HPI Narrative SHAQUILLE BELLO, is a 79 F with a PMh as outlined who was admitted via the ED On 06/18/2025 with a complaint of chest pain which started the day of admission. She had lifted a heavy box a few days prior and started having retrosternal chest pain which radiated to her back. She did not think much of it but the pain persisted and radiated to her back and neck and arms persistently. She not have any lightheadedness or dizziness or any increased sweating, no nausea or shortness of breath. Review of systems otherwise negative. She did not have any cardiac history. On arrival in the ED blood pressure was 110/60 with pulse rate of 88 and respirate rate of 18. Temperature was 97.9 Fahrenheit and she was saturating at 90% on room air. CBC showed hemoglobin of 13.3 with WBC of 11.2 and platelets of 334. Chemistry showed sodium of 136 with potassium of 4.1 and bicarb of 22.5. Creatinine was 0.83. Initial troponin was 284. STEMI alert was called when she got to the ED on account of EKG showing ST elevation in the inferior leads. She was taken emergently to cardiac cath which showed showed multivessel coronary artery disease with 99% stenosis in the mid RCA which was treated with a drug-eluting stentshe was admitted to the ICU afterwards. Patient seen and examined in the ICU. She had his sisters by her bedside. She had no active complaints. Chest pain had resolved. She denied any lightheadedness or dizziness, nausea or vomiting or any other such symptoms. Review of systems otherwise negative. [facility] Medical History Sciatic leg pain History of trigger finger Hypothyroidism Diabetes Hypertension Home Medications ?Medication ?Instructions ?Recorded ?Last Taken ?Type alprazolam 0.5 mg tablet 0.5 mg PO QHS Allergies 05/11/21 Unknown History atorvastatin 10 mg tablet 10 mg PO QHS Cholesterol 05/11/21 Unknown History glimepiride 2 mg tablet 2 mg PO DAILY not taking 05/11/21 Unknown History levothyroxine 50 mcg tablet 50 mcg PO DAILY hypothyroid 05/11/21 Unknown History lisinopril 20 mg tablet 20 mg PO DAILY Hypertension 05/11/21 Unknown History dulaglutide 0.75 mg/0.5 mL ml subcut not takiong 07/23/22 Unknown History subcutaneous pen injector (Trulicity) tramadol 50 mg tablet 50 mg PO DAILY not taking 03/06/23 Unknown History loratadine 10 mg tablet 10 mg PO DAILY allergies 06/18/25 Unknown History semaglutide 0.25 mg or 0.5 mg (2 0.5 mg subcut QWEEK diabetes 06/18/25 Unknown History mg/3 mL) subcutaneous pen injector (Ozempic) Allergy/AdvReac Type Severity Reaction Status Date / Time Penicillins Allergy Hives Verified 06/18/25 12:15 aspirin AdvReac upset Verified 06/18/25 13:48 stomach codeine AdvReac Other Verified 06/18/25 12:15 Social History Smoking Status: Current some day smoker tobacco type: cigarettes alcohol intake: never ROS Constitutional Constitutional: Denies anorexia, chills, fatigue, fever(s), malaise or weakness Eyes Eyes: Denies change in vision ENT HEENT: Denies dysphagia, headache(s) or sore throat Cardiovascular Cardiovascular: Reports chest pain; Denies dyspnea on exertion, edema, lightheadedness, orthopnea, palpitations, paroxysmal nocturnal dyspnea, rapid heart rate or syncope Respiratory/Chest Respiratory/Chest: Denies cough, dyspnea, shortness of breath at rest or shortness of breath with exertion Gastrointestinal Gastrointestinal: Denies abdominal pain, constipation, diarrhea, nausea or vomiting Genitourinary Genitourinary: Denies difficulty urinating or dysuria Musculoskeletal Musculoskeletal: Denies back pain Neurologic Neurologic: Denies confusion, dizziness or focal weakness Psychiatric Psychiatric: Denies anxiety or depression Endocrine Endocrinology: Denies change in body appearance Vital Signs Vital Signs Vital Signs: 06/18/25 12:11 06/18/25 13:02 06/18/25 13:26 Temperature 98.3 F 97.9 F Temperature Source Oral Pulse Rate 89 88 Respiratory Rate 18 18 18 Blood Pressure 143/75 H 136/78 H 110/60 Blood Pressure Mean 97 76 Pulse Ox 96 98 Oxygen Delivery Method Room Air Weight Weight: 162 lb 11.2 oz Body Mass Index (BMI) 29.7 Physical Exam Const alert, oriented x3 and no apparent distress General Appearance: cooperative HEENT normocephalic, head/scalp atraumatic, moist oral mucous membranes and oropharynx normal Mouth: oral and palatal mucosa normal Eyes EOMs intact bilaterally Neck supple and no JVD Resp normal respiratory effort, no retractions, no use of accessory muscles and clear to auscultation bilaterally Cardio regular rate, regular rhythm, S1 normal heart sound, S2 normal heart sound and no murmurs GI normal to inspection, nondistended, normoactive bowel sounds, soft to palpation, non-tender and non-distended Extremity normal to inspection and full ROM Neuro oriented x3 and moves all extremities Sensorium / Orientation: awake and alert Motor Exam: strength 5/5 throughout Psych affect normal Results Lab / Micro Data 06/18/25 12:33 06/18/25 15:55 Labs: Laboratory Results - last 24 hr 06/18/25 12:33: WBC 11.2 H, RBC 4.25, Hgb 13.3, Hct 39.4, MCV 92.7, MCH 31.3, MCHC 33.8, RDW Std Deviation 39.7, RDW Coeff of Yordy 11.6, Plt Count 334, MPV 8.8, Immature Gran % (Auto) 0.300, Neut % (Auto) 51.3, Lymph % (Auto) 36.8, [place] % (Auto) 7.6, Eos % (Auto) 3.0, Baso % (Auto) 1.0, Absolute Neuts (auto) 5.8, Absolute Lymphs (auto) 4.13, Nucleated RBC % 0, Sodium 136, Potassium 4.1, Chloride 98, Carbon Dioxide 22.5, Anion Gap 15, BUN 22 H, Creatinine 0.83, Estim Creat Clear Calc 50.00, Est GFR (MDRD) Non-Af 70, BUN/Creatinine Ratio 26.3 H, Glucose 188 H, Calcium 10.4, Troponin T High Sens 284 H* Assessment & Plan Assessment/Plan (1) Elevated troponin: (2) Acute inferior myocardial infarction: PLAN: Plan #STEMI Patient admitted with a complaint of chest pain while she was lifting a box this afternoon. Initial troponin was elevated at [address] elevation in the inferior leads. She was taken emergently to the [facility]. She had cardiac cath which showed multivessel coronary artery disease with 99% stenosis in the mid RCA which was treated with a drug-eluting stent. She also had chronic total occlusion of the LAD that could not be crossed. Placed on aspirin and high intensity statin as well as Brilinta. Placed on low-dose lisinopril. Per cardiology to have her home dose of lisinopril and to order a beta-grazyna. 2D echo ordered. Admitted to the ICU after cardiac cath. #Type 2 diabetes mellitus: On dulaglutide and glimepiride. Insulin Sliding scale. Accu-Cheks ACHS. #Nicotine dependence: Counseled to quit. States she smokes about 2 to 4 cigarettes every day. Nicotine patch 21 mg daily as needed #Hypothyroidism: On Synthroid DVT prophylaxis: SCDs CODE STATUS: Patient counseled extensively about different types of CODE STATUS including full code, DNR CCA and DNR CCA. Patient elects to be full code. Total face to face time: 16 mins. Charges/Coding Visit Charges Inpatient E&M: 30175 Init Hosp L3 Procedures Hospitalists Procedures: 75661 Advncd Care Plan 30 Min
--- NOTE | 2025-06-18 14:44 | CON.PCM.CA_ITS ---
Assessment & Plan Assessment/Plan (1) Elevated troponin: PLAN: Subacute presentation of AZ (greater than 24 hours). Due to ongoing chest discomfort she underwent coronary angiography and RCA PCI was performed. We will keep the patient on aspirin, Brilinta, beta-grazyna. Will continue the statin. Consider decreasing the lisinopril to 10 mg p.o. daily to allow addition of beta-grazyna. Patient does have other stenoses that can be treated medically at this time. If she has chest pain despite maximal medical therapy then she may need to be referred to a tertiary center for PCI of CLERK TRAVEL RESERVATIONS of LAD or CABG. Currently patient is chest pain-free. HPI Consult Data Date of Consult: 06/18/25 HPI Narrative Reason for Consultation: Chest pain, abnormal EKG suspicious for late presentation of acute AZ HPI Narrative: Sarah BELLO, is a 79 F who presents [with chest pain that has been going on for about 2 days. Patient was lifting something heavy and thought her discomfort was because of a muscle pull. In the emergency room an EKG was suspicious for late presentation of acute AZ. Since patient was having ongoing chest pain patient was brought to the [facility]. She underwent coronary angiography which revealed multivessel coronary artery disease with 99% stenosis in the mid RCA that was treated with drug-eluting stent. She has chronic total occlusion of the LAD that could not be crossed today. Patient's chest pain resolved. She is being admitted to the CCU for further management of her acute coronary syndrome (late presentation of inferior ST elevation AZ). Patient said that she gets upset stomach with 2 full dose aspirins. She felt that she could take 1 baby aspirin a day. ] [facility] Medical History Sciatic leg pain History of trigger finger Hypothyroidism Diabetes Hypertension Home Medications ?Medication ?Instructions ?Recorded ?Last Taken ?Type alprazolam 0.5 mg tablet 0.5 mg PO QHS 05/11/21 Unkno wn History atorvastatin 10 mg tablet 10 mg PO QHS 05/11/21 Unknow n History glimepiride 2 mg tablet 2 mg PO DAILY 05/11/21 Unkno wn History levothyroxine 50 mcg tablet 50 mcg PO DAILY 05/11/21 U nknown History lisinopril 20 mg tablet 20 mg PO DAILY 05/11/21 Unkn own History dulaglutide 0.75 mg/0.5 mL ml subcut 07/23/22 Unknown History subcutaneous pen injector (Trulicity) tramadol 50 mg tablet 50 mg PO DAILY 03/06/23 Unkn own History Allergy/AdvReac Type Severity Reaction Status Date / Time Penicillins Allergy Hives Verified 06/18/25 12:15 aspirin AdvReac upset Verified 06/18/25 13:48 stomach codeine AdvReac Other Verified 06/18/25 12:15 Social History Smoking Status: Never smoker alcohol intake: never Physical Exam Const alert and oriented x3 HEENT normocephalic Resp normal respiratory effort Cardio regular rate Charges/Coding Visit Charges Inpatient E&M: 21938 Init Hosp L2 Objective Data Vital Signs: Vital Signs Temp Pulse Resp BP Pulse Ox O2 Del Method 97.9 F 88 18 110/60 98 Room Air 06/18/25 13:26 06/18/25 13:26 06/18/25 13:26 06/18/25 13:26 06/18/25 13:26 06/18/25 12:11 Oxygen Delivery Method Room Air Weight: 162 lb 11.2 oz Body Mass Index (BMI) 29.7 Lab / Micro Data 06/18/25 12:33 06/18/25 12:33 Labs: Laboratory Results - last 24 hr 06/18/25 12:33: WBC 11.2 H, RBC 4.25, Hgb 13.3, Hct 39.4, MCV 92.7, MCH 31.3, MCHC 33.8, RDW Std Deviation 39.7, RDW Coeff of Yordy 11.6, Plt Count 334, MPV 8.8, Immature Gran % (Auto) 0.300, Neut % (Auto) 51.3, Lymph % (Auto) 36.8, [place] % (Auto) 7.6, Eos % (Auto) 3.0, Baso % (Auto) 1.0, Absolute Neuts (auto) 5.8, Absolute Lymphs (auto) 4.13, Nucleated RBC % 0, Sodium 136, Potassium 4.1, Chloride 98, Carbon Dioxide 22.5, Anion Gap 15, BUN 22 H, Creatinine 0.83, Estim Creat Clear Calc 50.00, Est GFR (MDRD) Non-Af 70, BUN/Creatinine Ratio 26.3 H, G lucose 188 H, Calcium 10.4, Troponin T High Sens 284 H* Cardiology Labs/Tests 06/18/25 12:33: WBC 11.2 H, RBC 4.25, Hgb 13.3, Hct 39.4, MCV 92.7, MCH 31.3, MCHC 33.8, Plt Count 334, MPV 8.8, Immature Gran % (Auto) 0.300, Neut % (Auto) 51.3, Lymph % (Auto) 36.8, [place] % (Auto) 7.6, Eos % (Auto) 3.0, Baso % (Auto) 1.0, Absolute Neuts (auto) 5.8, Nucleated RBC % 0, Sodium 136, Potassium 4.1, Chloride 98, Carbon Dioxide 22.5, Anion Gap 15, BUN 22 H, Creatinine 0.83, Est GFR (MDRD) Non-Af 70, BUN/Creatinine Ratio 26.3 H, Glucose 188 H, Calcium 10.4 Rhythm: EKG: ECHO: Stress Test: Cardiac Cath: PCI: CT Surgery: Holter monitor: EPS: PPM: CXR: Chest CT Scan: HIEN Risk Score for UA/STEMI Assesmment (YES = 1) Risk Stratification Applicable: No
--- OUTSIDE RECORDS SUMMARY | 2025-06-18 16:31 | XMS RPT_ITS | CCD ---
Author Organization [facility] CliniSyfl Care Team Providers Care Trade Sales Assistant Name Role Phone Deirdre Quiñones MD Primary [...] Deirdre Quiñones MD Primary Care Provider [employer] SKIN THERAPIST.Silvia GALVAN Unavailable Saravanan SKIN THERAPIST.Jay GALVAN Unavailable Denise Edward RN Unavailable Unavailabl e [employer] SKIN THERAPIST.Silvia GALVAN Unavailable Unavail able [employer] SKIN THERAPIST.Silvia GALVAN Unavailable SILVIA VAZQUEZ Referring UnavailDEIRDRE Lin Primary Care Unavailable SILVIA VAZQUEZ Attending UnavailDEIRDRE Lin Primary Care Unavailable DEIRDRE QUIÑONES Primary Care Unavailable DEIRDRE QUIÑONES Referring Unavailable SILVIA VAZQUEZ Attending UnavailDEIRDRE Lin Primary Care Unavailable Allergies Allergy Classification Reported Allergen(s) Allergy Type Date of Onset Reaction(s) Facility (20 sources) Acetaminophen / HYDROcodone; Translations: [HYDROCODONE-ACET AMINOPHEN] Drug Allergy 04-20-20 05 GI [facility] (20 sources) Codeine; Translations: [CODEINE] Drug Allergy 06-14-[address] [facility] Work Phone: (20 sources) metFORMIN; Translations: [METFORMIN] Drug Allergy 08-23-19 16 [facility] (20 sources) Palm Oil; Translations: [PALM OIL] Drug Allergy 08-20-19 19 [facility] (15 sources) Penicillins; Translations: [PENICILLINS] Drug Intolerance 04-20-20 05 [facility] (20 sources) quinapril; Translations: [QUINAPRIL HCL] Drug Allergy 08-01-19 07 Other: See [facility] (10 sources) Salicylic Acid; Translations: [SALICYLATES] Drug Allergy 04-20-20 05 [facility] (20 sources) Bees; Translations: [BEES] Propensity to adverse reactions 09-08-[address] [facility] (20 sources) Doxycycline; Translations: [DOXYCYCLINE] Drug Allergy 11-24-19 22 [facility] Work Phone: (20 sources) Penicillins Drug Intolerance 04-20-20 05 [facility] (20 sources) Salicylate product Drug Intolerance 04-20-20 05 [facility] (2 sources) Aspirin Drug Allergy 02-23-20 23 Other [facility] (2 sources) Penicillins Allergy to substance 02-23-20 [facility] (1 source) Aspirin Drug Allergy 02-23-20 23 [facility] (1 source) Codeine Drug Allergy 02-23-20 23 [facility] (1 source) Penicillins Drug allergy (disorder) 02-23-20 23 [facility] (13 sources) Penicillins Drug Intolerance 04-20-20 05 [facility] Medications Current Medications Medication Drug Class(es) [...] be given per day (FROM ALL SOURCES) [id number] 200 actuat albuterol 0.09 mg/actuat metered dose [...] on above: Take 1 capsule by mo [facility] twice daily for 10 days. clindamycin 300 mg oral capsule (20 sources) Lincosamide Antibacterial Start: 07-23-19 24 take 1 capsule by mouth four times daily clindamycin (CLEOCIN) 300 mg capsule Take 1 capsule by mouth four times daily. 40 capsule 07/23/2023 Active Comment on above: Take 1 capsule by [facility] four times daily. doxycycline hyclate 100 mg oral tablet (2 sources) Tetracycline-class Drug Start: 09-27-19 End: 10-07-19 22 take 1 tablet by mouth twice daily doxycycline (VIBRA-TABS) 100 mg tablet Indications: Tick bite, unspecified site, initial encounter Take 1 tablet by mouth twice daily for 10 days. 20 tablet 0 09/26/2021 10/06/2021 Active Comment on above: Take 1 tablet by [facility] twice daily for 10 days. famotidine 20 mg oral tablet (20 sources) Histamine-2 Receptor Antagonist Start: 08-20-19 19 take 1 tablet by mouth every twenty-four hours as needed famotidine (PEPCID) 20 mg tablet Take 1 tablet by mouth at bedtime as needed. 08/20/2018 Active Comment on above: Take 1 tablet by [facility] at bedtime as needed. FLUoxetine 10 mg oral capsule (20 sources) Serotonin Reuptake Inhibitor Start: 03-21-20 End: 04-24-20 24 take 1 capsule by mouth once FLUoxetine (PROZAC) 10 mg capsule Indications: Anxiety state Take 1 capsule by mouth every afternoon. 90 capsule 3 04/24/2024 Active Comment on above: Take 1 capsule by [facility] once daily. TAKE 1 CAPSULE BY [facility] EVERY DAY fluticasone propionate 0.05 mg/actuat [...] (FLONASE) 50 mcg/actuation nasal spray Use 1 Melber in each nostril once daily as needed. 0 11/16/2021 Discontinued Comment on above: Use 1 Melber in each nostril once daily as needed. [...] Comment on above: [facility] Inhalational Spacing Device (1 [...] on above: Take 2 tablets by mo [facility] once daily for 5 days. Take 4 [...] Comment on above: Take 1 tablet by [facility] once daily. traMADol hydrochloride 50 mg [...] on above: TAKE 2 TABLETS BY MO [facility] EVERY DAY WITH BREAKFAST tiZANidine [...] Test Name Value Interpretation Reference Range Facility [facility] 05-03-2025 [facility] Telephone (FAMPWS) SHEREE CHAVEZ ([id number]) 1945 F Date Time Provider Department 05/03/25 DEIRDRE QUIÑONES [facility] During your visit today, we recorded the [...] Pt has read message. No appt made. Kourteny Kincaid MA Allergies As of Date: 05/03/2025 [...] 2 COMPREHENSIVE METABOLIC PANEL [SQCMP] Order #: [id number] FUTURE HEMOGLOBIN A1C [RHOWT1A] Order #: [id number] FUTURE LIPID PANEL, FASTING [SQLIPB] Order #: [id number] FUTURE COMPLETE BLOOD COUNT [SQCBC] Order #: [id number] FUTURE ALBUMIN/CREATININE RATIO, URINE [SQUACR] Order #: [id number] FUTURE THYROID STIMULATING HORMONE [SQTSH] Order #: [id number] FUTURE Prescriptions as of 05/04/2025 - OZEMPIC [...] lo*05/11/2021 Intracrania (more content not included)... Normal [facility] CNPNon 12-01-2024 CNPN Telephone (INTMWS) SHEREE CHAVEZ ([id number]) 1945 F Date Time Provider Department 12/01/24 DEIRDRE QUIÑONES INTMWS During your visit today, we recorded the following information about you: Lalita Mario LPN 12/01/2024 10:30 AM Signed Electronic PA rec'd and completed for ozempic ANNY. This was completed and approved. Prior authorization approved Payer: [employer] Part D [phone] Note from payer: Request Reference Number: [id number]. OZEMPIC INJ 2MG/3ML is approved through 07/07/2025. Your patient may now fill this prescription and it will be covered. Approval Details Authorization number: [id number] Authorized from December 01, 2024 to July 07, 2025 Electronic appeal: Not supported View History Notes Time User Attachment Attachment received from payer. 12/01/2024 8:31 AM [facility] In Document Medication Being Authorized [...] its destination. To be filled at: e- [facility]/pharmacy [id number] [address] - [address] [phone] Pt notified via my chart. Allergies As [...] Hypothyroidism [ (more content not included)... Normal [facility] Girma 10-14-2024 MANDYN Telephone (PHARMN) SHEREE CHAVEZ ([id number]) 1945 F Date Time Provider Department 10/14/24 [...] to contact the patient. Patient was sent Kiip message. If the patient returns a call, [...] Encounter Status:Closed by NUHA JOHNSTON on 11/11/24 [facility] CNOVon 09-23-2024 CNOV Office Visit (FAMPWS ) SHEREE CHAVEZ ([id number]) 1945 F Date Time Provider Department 09/23/24 9:20 AM SILVIA VAZQUEZ During your visit today, we recorded the following information about you: Pulse Respiration Blood pressure Weight 85/minute 16/minute 110/70 76.4 kg Silvia Vazquez APRN.TAPE RECORDER REPAIRER 09/23/2024 10:14 AM Signed This is a [...] Mother Osteoporosis (more content not included)... Normal [facility] Comprehensive metabolic 2000 panelon 09-21-2024 Albumin [Mass/Vol] 4.0 g/dL Normal 3.9-4.9 [facility] Comment on above: Order Comment: Speci men Type: BLOOD SPECIMENOrdering Facility: [facility] Address: [facility] [place] [address] Performed By: #### 2 4323-8 ####[facility] LABCLIA [id number] [place] [address] [place] ALP [Catalytic activity/Vol] 27 U/L Low 34-123 [facility] Comment on above: Order Comment: Speci men Type: BLOOD SPECIMENOrdering Facility: [facility] Address: [address] [place] [address] Performed By: #### 2 4323-8 ####[facility] LABCLIA [id number] [place] [address] [place] ALT [Catalytic activity/Vol] 21 U/L Normal 7-38 [facility] Comment on above: Order Comment: Speci men Type: BLOOD SPECIMENOrdering Facility: [facility] Address: [address] [place] [address] Performed By: #### 2 4323-8 ####[facility] LABCLIA [id number] [address] [address] [place] Anion gap [Moles/Vol] 11 mmol/L Normal 8-15 [facility] Comment on above: Order Comment: Speci men Type: BLOOD SPECIMENOrdering Facility: [facility] Address: [address] [place] [address] Performed By: #### 2 4323-8 ####[facility] LABCLIA [id number] [address] [address] [place] AST [Catalytic activity/Vol] 22 U/L Normal 13-35 [facility] Comment on above: Order Comment: Speci men Type: BLOOD SPECIMENOrdering Facility: [facility] Address: [address] [place] [address] Performed By: #### 2 4323-8 ####[facility] LABCLIA [id number] [facility] [place] [id number] [place] Bilirubin [Mass/Vol] 0.4 mg/dL Normal 0.2-1.3 [facility] Comment on above: Order Comment: Speci men Type: BLOOD SPECIMENOrdering Facility: [facility] Address: [address] [place] [address] Performed By: #### 2 4323-8 ####[facility] LABCLIA [id number] [place] [address] [place] Calcium [Mass/Vol] 10.1 mg/dL Normal 8.5-10.2 [facility] Comment on above: Order Comment: Speci men Type: BLOOD SPECIMENOrdering Facility: [facility] Address: [address] [place] [address] Performed By: #### 2 4323-8 ####[facility] LABCLIA [id number] [place] [address] [place] Chloride [Moles/Vol] 99 mmol/L Normal 98-107 [facility] Comment on above: Order Comment: Speci men Type: BLOOD SPECIMENOrdering Facility: [facility] Address: [address] [place] [address] Performed By: #### 2 4323-8 ####[facility] LABCLIA [id number] [facility] [place] [address] [place] CO2 [Moles/Vol] 24 mmol/L Normal 22-30 [facility] Comment on above: Order Comment: Speci men Type: BLOOD SPECIMENOrdering Facility: [facility] Address: [address] [place], [place] [address] Performed By: #### 2 4323-8 ####[facility] LABIA [id number] [place] [address] [place] [facility] Creatinine [Mass/Vol] 0.73 mg/dL Normal 0.58-0.96 [facility] Comment on above: Order Comment: Speci men Type: BLOOD SPECIMENOrdering Facility: [facility] Address: [address] [place] [address] Performed By: #### 2 4323-8 ####[facility] LABIA [id number] [place] [address] [place] Creatinine and Glomerular filtration rate.predicted panel (S/P/Bld) 83 mL/min/1.73m??? Normal >=60 [facility] Comment on above: Order Comment: Speci men Type: BLOOD SPECIMENOrdering Facility: [facility] Address: [address] [place] [address] Result Comment: Martha mated Glomerular Filtration Rate [...] actual GFR. Performed By: #### 2 4323-8 ####[facility] LABIA [id number] [place] [id number] [place] Glucose [Mass/Vol] 227 mg/dL High 74-99 [facility] Comment on above: Order Comment: Speci men Type: BLOOD SPECIMENOrdering Facility: [facility] Address: [address] [place] [address] Result Comment: The [place] Diabetes Association (ADA) provides guidance for cutoff [...] Standards of Medical Care in Diabetes 2016, [place] Diabetes Association. Diabetes Care. 2016.39(Suppl 1). Performed By: #### 2 4323-8 ####[facility] LABCLIA [id number] [place] [address] [place] Potassium [Moles/Vol] 4.9 mmol/L Normal 3.7-5.1 [facility] Comment on above: Order Comment: Speci men Type: BLOOD SPECIMENOrdering Facility: [facility] Address: [address] [place] [address] Performed By: #### 2 4323-8 ####[facility] LABCLIA [id number] [place] [address] [place] Protein [Mass/Vol] 7.0 g/dL Normal 6.3-8.0 [facility] Comment on above: Order Comment: Speci men Type: BLOOD SPECIMENOrdering Facility: [facility] Address: [address] [place] [address] Performed By: #### 2 4323-8 ####[facility] LABCLIA [id number] [place] [address] [place] Sodium [Moles/Vol] 134 mmol/L Low 136-144 [facility] Comment on above: Order Comment: Speci men Type: BLOOD SPECIMENOrdering Facility: [facility] Address: [address] [place] [address] Performed By: #### 2 4323-8 ####[facility] LABCLIA [id number] [facility] [place] [address] [place] Urea nitrogen [Mass/Vol] 15 mg/dL Normal 7-21 [facility] Comment on above: Order Comment: Speci men Type: BLOOD SPECIMENOrdering Facility: [facility] Address: [address] [place] [address] Performed By: #### 2 4323-8 ####[facility] [id number] [place] [address] [facility] [place] HbA1c (Bld)on 09-21-2024 Average glucose Estimated from glycated hemoglobin (Bld) [Mass/Vol] 223 mg/dL Normal [facility] Comment on above: Order Comment: José Miguel stanley Type: BLOOD SPECIMENOrdering Facility: [facility] Address: [address] [place] [address] Result Comment: eAG: (Estimated average glucose) is a calculated value from HgbA1c and is players club representative of the average blood glucose level in the last 2-3 month period. Performed By: #### 5 5454-3 ####[facility] [id number] [address] [place] HbA1c (Bld) [Mass fraction] 9.4 % High 4.3-5.6 [facility] Comment on above: Order Comment: José Miguel stanley Type: BLOOD SPECIMENOrdering Facility: [facility] Address: [address] [place] [address] Result Comment: Dimitrios ican Diabetes Association guidelines indicate that patients with HgbA1c in the range 5.7-6.4% are at increased risk for development of diabetes, and intervention by lifestyle modification may be beneficial. HgbA1c greater or equal to 6.5% is considered diagnostic of diabetes. Performed By: #### 5 5454-3 ####[facility] [id number] [place] [id number] [facility] [place] CNOVon 06-17-2024 CNOV Office Visit (FAMPWS ) SHEREE CHAVEZ ([id number]) 1945 F Date Time Provider Department 06/17/24 10:00 AM SILVIA VAZQUEZ During your visit today, we recorded the following information about you: Pulse Respiration Blood pressure Weight 87/minute 16/minute 100/70 78.6 kg Height 1.553 m Silvia Vazquez APRN.TAPE RECORDER REPAIRER 06/17/2024 3:10 PM Signed Sheree Chavez is [...] Vicodin [Hydr (more content not included)... Normal [facility] CBC W Auto Differential pane l (Bld)on 06-16-2024 Basophils (Bld) [#/Vol] 0.14 10*3/uL High <0.11 [facility] Comment on above: Order Comment: Speci men Type: BLOOD SPECIMENOrdering Facility: [facility] Address: [address] [place] [address] Performed By: #### 5 7021-8 ####[facility] LABIA [id number] [place] [address] [place] Basophils/100 WBC (Bld) 1.6 % Normal [facility] Comment on above: Order Comment: Speci men Type: BLOOD SPECIMENOrdering Facility: [facility] Address: [address] [place] [address] Performed By: #### 5 7021-8 ####[facility] LABIA [id number] [place] [address] [place] Differential cell count method Nom (Bld) Auto Normal [facility] Comment on above: Order Comment: Speci men Type: BLOOD SPECIMENOrdering Facility: [facility] Address: [address] [place] [address] Performed By: #### 5 7021-8 ####[facility] LABIA [id number] [place] [address] [place] Eosinophils (Bld) [#/Vol] 0.43 10*3/uL Normal <0.46 [facility] Comment on above: Order Comment: Speci men Type: BLOOD SPECIMENOrdering Facility: [facility] Address: [address] [place] [address] Performed By: #### 5 7021-8 ####[facility] LABCLIA [id number] [place] [address] [place] Eosinophils/100 WBC (Bld) 4.8 % Normal [facility] Comment on above: Order Comment: Speci men Type: BLOOD SPECIMENOrdering Facility: [facility] Address: [address] [place] [address] Performed By: #### 5 7021-8 ####[facility] LABCLIA [id number] [place] [address] [place] Erythrocyte distribution width (RBC) [Ratio] 11.7 % Normal 11.5-15.0 [facility] Comment on above: Order Comment: Speci men Type: BLOOD SPECIMENOrdering Facility: [facility] Address: [address] [place] [address] Performed By: #### 5 7021-8 ####[facility] LABIA [id number] [place] [address] [place] Hematocrit (Bld) [Volume fraction] 43.2 % Normal 36.0-46.0 [facility] Comment on above: Order Comment: Speci men Type: BLOOD SPECIMENOrdering Facility: [facility] Address: [address] [place] [address] Performed By: #### 5 7021-8 ####[facility] LABCLIA [id number] [place] [address] [place] Hemoglobin (Bld) [Mass/Vol] 13.8 g/dL Normal 11.5-15.5 [facility] Comment on above: Order Comment: Speci men Type: BLOOD SPECIMENOrdering Facility: [facility] Address: [address] [place] [address] Performed By: #### 5 7021-8 ####[facility] LABCLIA [id number] [place] [address] [place] Immature granulocytes (Bld) [#/Vol] 0.03 10*3/uL Normal <0.10 [facility] Comment on above: Order Comment: Speci men Type: BLOOD SPECIMENOrdering Facility: [facility] Address: [address] [place] [address] Performed By: #### 5 7021-8 ####[facility] LABCLIA [id number] [place] [address] [place] Immature granulocytes/100 WBC (Bld) 0.3 % Normal [facility] Comment on above: Order Comment: Speci men Type: BLOOD SPECIMENOrdering Facility: [facility] Address: [address] [place] [address] Performed By: #### 5 7021-8 ####[facility] LABCLIA [id number] [place] [address] [place] Lymphocytes (Bld) [#/Vol] 3.83 10*3/uL Normal 1.00-4.00 [facility] Comment on above: Order Comment: Speci men Type: BLOOD SPECIMENOrdering Facility: [facility] Address: [address] [place] [address] Performed By: #### 5 7021-8 ####[facility] LABCLIA [id number] [place] [address] [place] Lymphocytes/100 WBC (Bld) 43.0 % Normal [facility] Comment on above: Order Comment: Speci men Type: BLOOD SPECIMENOrdering Facility: [facility] Address: [address] [place] [address] Performed By: #### 5 7021-8 ####[facility] LABCLIA [id number] [place] [address] [place] MCH (RBC) [Entitic mass] 30.8 pg Normal 26.0-34.0 [facility] Comment on above: Order Comment: Speci men Type: BLOOD SPECIMENOrdering Facility: [facility] Address: [address] [place] [address] Performed By: #### 5 7021-8 ####[facility] LABCLIA [id number] [place] [address] [place] MCHC (RBC) [Mass/Vol] 31.9 g/dL Normal 30.5-36.0 [facility] Comment on above: Order Comment: Speci men Type: BLOOD SPECIMENOrdering Facility: [facility] Address: [address] [place] [address] Performed By: #### 5 7021-8 ####[facility] LABCLIA [id number] [place] [address] [place] MCV (RBC) [Entitic vol] 96.4 fL Normal 80.0-100.0 [facility] Comment on above: Order Comment: Speci men Type: BLOOD SPECIMENOrdering Facility: [facility] Address: [address] [place] [address] Performed By: #### 5 7021-8 ####[facility] LABIA [id number] [place] [address] [place] Monocytes (Bld) [#/Vol] 0.73 10*3/uL Normal <0.87 [facility] Comment on above: Order Comment: Speci men Type: BLOOD SPECIMENOrdering Facility: [facility] Address: [address] [place] [address] Performed By: #### 5 7021-8 ####[facility] LABCLIA [id number] [place] [address] [place] Monocytes/100 WBC (Bld) 8.2 % Normal [facility] Comment on above: Order Comment: Speci men Type: BLOOD SPECIMENOrdering Facility: [facility] Address: [address] [place] [address] Performed By: #### 5 7021-8 ####[facility] LABIA [id number] [place] [address] [place] Neutrophils (Bld) [#/Vol] 3.75 10*3/uL Normal 1.45-7.50 [facility] Comment on above: Order Comment: Speci men Type: BLOOD SPECIMENOrdering Facility: [facility] Address: [address] [place] [address] Performed By: #### 5 7021-8 ####[facility] LABCLIA [id number] [place] [address] [place] Neutrophils/100 WBC (Bld) 42.1 % Normal [facility] Comment on above: Order Comment: Speci men Type: BLOOD SPECIMENOrdering Facility: [facility] Address: [address] [place] [address] Performed By: #### 5 7021-8 ####[facility] LABCLIA [id number] [place] [address] [place] Nucleated RBC (Bld) [#/Vol] 10*3/uL Normal <0.01 [facility] Comment on above: Order Comment: Speci men Type: BLOOD SPECIMENOrdering Facility: [facility] Address: [address] [place] [address] Performed By: #### 5 7021-8 ####[facility] LABCLIA [id number] [place] [address] [place] Nucleated RBC/100 WBC (Bld) [Ratio] 0.0 /100 WBC Normal [facility] Comment on above: Order Comment: Speci men Type: BLOOD SPECIMENOrdering Facility: [facility] Address: [address] [place] [address] Performed By: #### 5 7021-8 ####[facility] LABCLIA [id number] [place] [address] [place] Platelet mean volume (Bld) [Entitic vol] 9.4 fL Normal 9.0-12.7 [facility] Comment on above: Order Comment: Speci men Type: BLOOD SPECIMENOrdering Facility: [facility] Address: [address] [place] [address] Performed By: #### 5 7021-8 ####[facility] LABCLIA [id number] [address] [address] [place] Platelets (Bld) [#/Vol] 284 10*3/uL Normal 150-400 [facility] Comment on above: Order Comment: Speci men Type: BLOOD SPECIMENOrdering Facility: [facility] Address: [address] [place] [address] Performed By: #### 5 7021-8 ####[facility] LABCLIA [id number] [place] [address] [place] RBC (Bld) [#/Vol] 4.48 10*6/uL Normal 3.90-5.20 [facility] Comment on above: Order Comment: Speci men Type: BLOOD SPECIMENOrdering Facility: [facility] Address: [address] [place] [address] Performed By: #### 5 7021-8 ####[facility] LABIA [id number] [place] [address] [place] WBC (Bld) [#/Vol] 8.91 10*3/uL Normal 3.70-11.00 [facility] Comment on above: Order Comment: Speci men Type: BLOOD SPECIMENOrdering Facility: [facility] Address: [address] [place] [address] Performed By: #### 5 7021-8 ####[facility] LABIA [id number] [place] [id number] [place] Comprehensive metabolic 2000 panelon 06-16-2024 Albumin [Mass/Vol] 4.2 g/dL Normal 3.9-4.9 [facility] Comment on above: Order Comment: Speci men Type: BLOOD SPECIMENOrdering Facility: [facility] Address: [address] [place] [address] Performed By: #### 2 4331-1, 44447-8, TSHRF ####[facility] LABCLIA [id number] [place] [id number] [place] ALP [Catalytic activity/Vol] 30 U/L Low 34-123 [facility] Comment on above: Order Comment: Speci men Type: BLOOD SPECIMENOrdering Facility: [facility] Address: [address] [place] [address] Performed By: #### 2 4331-1, 71430-9, TSHRF ####[facility] LABCLIA [id number] [place] [address] [place] ALT [Catalytic activity/Vol] 17 U/L Normal 7-38 [facility] Comment on above: Order Comment: Speci men Type: BLOOD SPECIMENOrdering Facility: [facility] Address: [address] [place] [address] Performed By: #### 2 4331-1, , TSHRF ####[facility] LABIA [id number] [place] [address] [place] Anion gap [Moles/Vol] 12 mmol/L Normal 8-15 [facility] Comment on above: Order Comment: Speci men Type: BLOOD SPECIMENOrdering Facility: [facility] Address: [address] [place] [address] Performed By: #### 2 4331-1, , TSHRF ####[facility] LABIA [id number] [place] [address] [place] AST [Catalytic activity/Vol] 17 U/L Normal 13-35 [facility] Comment on above: Order Comment: Speci men Type: BLOOD SPECIMENOrdering Facility: [facility] Address: [address] [place] [address] Performed By: #### 2 4331-1, 00457-9, TSHRF ####[facility] LABIA [id number] [place] [address] [place] Bilirubin [Mass/Vol] 0.3 mg/dL Normal 0.2-1.3 [facility] Comment on above: Order Comment: Speci men Type: BLOOD SPECIMENOrdering Facility: [facility] Address: [address] [place] [address] Performed By: #### 2 4331-1, , TSHRF ####[facility] LABCLIA [id number] [place] [address] [place] Calcium [Mass/Vol] 10.0 mg/dL Normal 8.5-10.2 [facility] Comment on above: Order Comment: Speci men Type: BLOOD SPECIMENOrdering Facility: [facility] Address: [address] [place] [address] Performed By: #### 2 4331-1, , TSHRF ####[facility] LABCLIA [id number] [place] [address] [place] Chloride [Moles/Vol] 99 mmol/L Normal 98-107 [facility] Comment on above: Order Comment: Speci men Type: BLOOD SPECIMENOrdering Facility: [facility] Address: [address] [place] [address] Performed By: #### 2 4331-1, , TSHRF ####[facility] LABCLIA [id number] [place] [address] [place] CO2 [Moles/Vol] 26 mmol/L Normal 22-30 [facility] Comment on above: Order Comment: Speci men Type: BLOOD SPECIMENOrdering Facility: [facility] Address: [address] [place] [address] Performed By: #### 2 4331-1, , TSHRF ####[facility] LABCLIA [id number] [place] [id number] [place] Creatinine [Mass/Vol] 1.02 mg/dL High 0.58-0.96 [facility] Comment on above: Order Comment: Speci men Type: BLOOD SPECIMENOrdering Facility: [facility] Address: [address] [place] [address] Performed By: #### 2 4331-1, 18478-7, [facility] ####[facility] LABIA [id number] [place] [address] [place] Creatinine and Glomerular filtration rate.predicted panel (S/P/Bld) 56 mL/min/1.73m??? Low >=60 [facility] Comment on above: Order Comment: José Miguel stanley Type: BLOOD SPECIMENOrdering Facility: [facility] Address: [address] [place] [address] Result Comment: Martha mated Glomerular Filtration Rate [...] actual GFR. Performed By: #### 2 4331-1, 65057-0, [facility] ####[facility] LABIA [id number] [place] [id number] [place] Glucose [Mass/Vol] 253 mg/dL High 74-99 [facility] Comment on above: Order Comment: José Miguel stanley Type: BLOOD SPECIMENOrdering Facility: [facility] Address: [address] [place] [address] Result Comment: The [place] Diabetes Association (ADA) provides guidance for cutoff [...] Standards of Medical Care in Diabetes 2016, [place] Diabetes Association. Diabetes Care. 2016.39(Suppl 1). Performed By: #### 2 4331-1, 56103-9, TSHRF ####[facility] LABCLIA [id number] [place] [address] [place] Potassium [Moles/Vol] 4.6 mmol/L Normal 3.7-5.1 [facility] Comment on above: Order Comment: Speci men Type: BLOOD SPECIMENOrdering Facility: [facility] Address: [address] [place] [address] Performed By: #### 2 4331-1, , TSHRF ####[facility] LABIA [id number] [place] [address] [place] Protein [Mass/Vol] 7.3 g/dL Normal 6.3-8.0 [facility] Comment on above: Order Comment: Speci men Type: BLOOD SPECIMENOrdering Facility: [facility] Address: [address] [place] [address] Performed By: #### 2 4331-1, , TSHRF ####[facility] LABIA [id number] [place] [address] [place] Sodium [Moles/Vol] 137 mmol/L Normal 136-144 [facility] Comment on above: Order Comment: Speci men Type: BLOOD SPECIMENOrdering Facility: [facility] Address: [address] [place] [address] Performed By: #### 2 4331-1, , TSHRF ####[facility] LABIA [id number] [place] [id number] [place] Urea nitrogen [Mass/Vol] 19 mg/dL Normal 7-21 [facility] Comment on above: Order Comment: Speci men Type: BLOOD SPECIMENOrdering Facility: [facility] Address: [address] [place] [id number] Performed By: #### 2 4331-1, 33673-7, TSHRF ####[facility] LABCLIA [id number] [address] [place] HbA1c (Bld)on 06-16-2024 Average glucose Estimated from glycated hemoglobin (Bld) [Mass/Vol] 280 mg/dL Normal [facility] Comment on above: Order Comment: José Miguel stanley Type: BLOOD SPECIMENOrdering Facility: [facility] Address: [address] [place] [address] Result Comment: eAG: (Estimated average glucose) is a calculated value from HgbA1c and is players club representative of the average blood glucose level in the last 2-3 month period. Performed By: #### 5 5454-3 ####[facility] LABIA [id number] [address] STATES OF [facility] HbA1c (Bld) [Mass fraction] 11.4 % High 4.3-5.6 [facility] Comment on above: Order Comment: José Miguel stanley Type: BLOOD SPECIMENOrdering Facility: [facility] Address: [address] [place] [address] Result Comment: [place] Diabetes Association guidelines indicate that patients with HgbA1c in the range 5.7-6.4% are at increased risk for development of diabetes, and intervention by lifestyle modification may be beneficial. HgbA1c greater or equal to 6.5% is considered diagnostic of diabetes. Performed By: #### 5 5454-3 ####[facility] LABIA [id number] [place] [address] [place] Lipid 1996 panelon 4 Cholesterol [Mass/Vol] 238 mg/dL High <200 [facility] Comment on above: Order Comment: José Miguel stanley Type: BLOOD SPECIMENOrdering Facility: [facility] Address: [address] [place] [address] Result Comment: <200 mg/dL, Desirable 200-239 mg/dL, Borderline high >239 mg/dL, High Performed By: #### 2 4331-1, 31884-2, TSHRF ####[facility] LABCLIA [id number] [address] [place] Cholesterol in HDL [Mass/Vol] 39 mg/dL Low >39 [facility] Comment on above: Order Comment: Josii men Type: BLOOD SPECIMENOrdering Facility: [facility] Address: [address] [place] [address] Result Comment: 40-5 9 mg/dL, Acceptable >59 mg/dL, High: Negative risk factor for coronary heart disease <40 mg/dL, Low: Positive risk factor for coronary heart disease Performed By: #### 2 4331-1, 22320-0, TSHRF ####[facility] LABCLIA [id number] [address] STATES OF [facility] Cholesterol in LDL [Mass/Vol] 134 mg/dL High <100 [facility] Comment on above: Order Comment: José Miguel [facility] Type: BLOOD SPECIMENOrdering Facility: [facility] Address: [address] [place] [address] Result Comment: <100 mg/dL, Optimal 100-129 mg/dL, Near optimal/above optimal 130-159 mg/dL, Borderline high 160-189 mg/dL, High >189 mg/dL, Very high Secondary prevention optimal LDL Cholesterol levels are recommended to be < 70 mg/dL Performed By: #### 2 4331-1, 77631-0, TSHRF ####[facility] LABCLIA [id number] [address] OF [facility] Cholesterol in LDL/Cholesterol in HDL [Mass ratio] 3.44 {ratio} High <2.54 [facility] Comment on above: Order Comment: Josibrenna [facility] Type: BLOOD SPECIMENOrdering Facility: [facility] Address: [address] [place] [address] Result Comment: Kosta amezquita: 1. National Cholesterol Education Program ATP III Guideline At-A-Glance Quick Desk Reference: National Heart, Lung, and Blood [place]. National Institutes of Health. 2001: NIH Publication No. 01-3305. 2. An International Atherosclerosis Society position paper: global recommendations for the management of dyslipidemia: executive summary, Atherosclerosis. 2014: 232(2):410-413. Performed By: #### 2 4331-1, 09496-6, TSHRF ####[facility] LABCLIA [id number] [place] [address] [place] Cholesterol in VLDL [Mass/Vol] 65 mg/dL High <30 [facility] Comment on above: Order Comment: Speci men Type: BLOOD SPECIMENOrdering Facility: [facility] Address: [address] [place] [address] Performed By: #### 2 4331-1, , TSHRF ####[facility] LABCLIA [id number] [place] [address] [place] Cholesterol non HDL [Mass/Vol] 199 mg/dL High <130 [facility] Comment on above: Order Comment: Josii men Type: BLOOD SPECIMENOrdering Facility: [facility] Address: [address] [place] [address] Result Comment: <130 mg/dL, Optimal 130-159 mg/dL, Near optimal/above optimal 160-189 mg/dL, Borderline high 190-219 mg/dL, High >219 mg/dL, Very high Secondary prevention optimal non HDL Cholesterol levels are recommended to be <100 mg/dL Performed By: #### 2 433-1, , TSHRF ####[facility] LABCLIA [id number] [place] [address] [place] Cholesterol.total/Ch olesterol in HDL [Mass ratio] 6.10 {ratio} High <5.10 [facility] Comment on above: Order Comment: Speci men Type: BLOOD SPECIMENOrdering Facility: [facility] Address: [address] [place] [address] Performed By: #### 2 4331-1, , TSHRF ####[facility] LABCLIA [id number] [place] [id number] [place] FASTING TIME 12 hrs Normal [facility] Comment on above: Order Comment: Speci men Type: BLOOD SPECIMENOrdering Facility: [facility] Address: [address] [place] [address] Performed By: #### 2 4331-1, 76778-9, TSHRF ####[facility] LABCLIA [id number] [place] [address] [place] Triglyceride [Mass/Vol] 323 mg/dL High <150 [facility] Comment on above: Order Comment: Speci men Type: BLOOD SPECIMENOrdering Facility: [facility] Address: [address] [place] [address] Result Comment: <150 mg/dL, Normal 150-199 mg/dL, Borderline high 200-499 mg/dL, High >499 mg/dL, Very high Performed By: #### 2 4331-1, 52964-5, TSHRF ####[facility] LABCLIA [id number] [place] [address] [place] TSH W/REFLEX FT4on 4 TSH Qn 4.010 m[IU]/L Normal 0.270-4.200 [facility] Comment on above: Order Comment: Speci men Type: BLOOD SPECIMENOrdering Facility: [facility] Address: [address] [place] [address] Performed By: #### 2 4331-1, 85911-2, TSHRF ####[facility] LABCLIA [id number] [place] [address] [place] XR RIBS/CHEST 3V AP RIB/OBLS /CXR LEFTon 04-22-[address] [facility] XR Ribs - left Views and Annmarie st PAon 04-22-2023 IMPRESSION: Acute nondisplaced fracture of the left anterolateral seventh rib. Conference Planner: YUMI Transcribe Date/Time: Apr 22 2023 12:33P Dictated by : KAMILLA WHEELER MD This examination was interpreted and the report reviewed and electronically signed by: KAMILLA WHEELER MD on Apr 22 2023 12:40PM [facility] DIVISION OF RADIOLOGY * * *Final Report* [...] seventh rib. DIVISION OF RADIOLOGY Provider, Christopher [facility] - 04/22/2023 * * *Final [...] fracture of the left anterolateral seventh rib. Conference Planner: PSCB Transcribe Date/Time: Apr 22 2023 12:33P Dictated by : KAMILLA WHEELER MD This examination was interpreted and the report reviewed and electronically signed by: KAMILLA WHEELER MD on Apr 22 2023 12:40PM EST [facility] Radiology Study observation (narrative) [facility] XR Ribs - left Views and Annmarie st PAOrdered By: Ccf Provider on 04-22-[address] [facility] Emergency Department Summary on 02-23-2023 Emergency Department Summary [facility] Medical Records Department [address] [place] [address] Emergency Department Summary 02/22/23 MR#: [id number] Acct: [id number] Name: Sarah CHAVEZ Rep #: [id number] : 1945 77 From: Thiago Jarvis DO [...] Negative for Parasthesia or Loss of Funtion [facility] Medical History Diabetes History of trigger finger [...] of the (more content not included)... Normal [facility] HIP, UNI W/ Pelvis 2-3 Views on 02-23-2023 HIP, UNI W/ Pelvis 2-3 Views [facility] Imaging Services [address] [place] [address] HIP, UNI W/ Pelvis 2-3 Views MR#: [id number] Acct: [id number] Name: Sarah CHAVEZ Rep #: [id number] : 1945 F 77 From: Osbaldo Moreno DO PCP: Dr. Deirdre Quiñones MD Status: [facility] ER Study: HIP, UNI W/ Pelvis 2-3 Views Date of Exam: Exam# [id number] Ordering Dr: Thiago Jarvis DO INDICATION: Injury/Pain [...] Thiago Jarvis DO; Dr. Deirdre Quiñones MD Conference Planner: Signed Normal [facility] Emergency Department Summary on 11-22-2022 Emergency Department Summary [facility] Medical Records Department [address] [place] [address] Emergency Department Summary 11/22/22 MR#: [id number] Acct: [id number] Name: Sarah CHAVEZ Rep #: [id number] : 1945 77 From: Say Martínez MD [...] down the right leg to her foot. [facility] Medical History Diabetes History of trigger finger [...] sciatica, Spi (more content not included)... Normal [facility] XR Pelvis and Hip - right AP and Lateral frogon 11-22-2022 IMPRESSION: 1. Moderate arthritic changes in the right hip similar to previous study. Conference Planner: YUMI Transcribe Date/Time: Nov 22 2022 6:44P Dictated by : JEREMY IBARRA MD This examination was interpreted and the report reviewed and electronically signed by: JEREMY IBARRA MD on Nov 22 2022 6:46PM [facility] DIVISION OF RADIOLOGY * * *Final Report* [...] the right hip similar to previous study. Conference Planner: PSCB Transcribe Date/Time: Nov 22 2022 6:44P Dictated by : JEREMY IBARRA MD This examination was interpreted and the report reviewed and electronically signed by: JEREMY IBARRA MD on Nov 22 2022 6:46PM EST [facility] Radiology Study observation (narrative) [facility] XR Pelvis and Hip - right AP and Lateral frogOrdered By: Ccf Provider on 11-22-[address] [facility] Orthopedic Visit Reporton Orthopedic Visit Report [facility] [address] [place] [address] OFFICE VISIT Date of Service: 08/15/22 MR#: [id number] Acct: [id number] Name: Sarah CHAVEZ Rep #: [id number] : 1945 Provider: Dr. Abhishek moore DO Age/Sex: 76/F [place] [facility] [place] Status: Signed Intake Vital Signs 08/13/22 10:25 [...] applicable) CC: Dr. Deirdre Quiñones MD Normal [facility] Spine Lumbar (Routine)on Spine Lumbar (Routine) [facility] Imaging Services [address] [place] [address] Spine Lumbar (Routine) MR#: [id number] Acct: [id number] Name: Sarah CHAVEZ Rep #: [id number] : 1945 F 76 From: Rolando Johnson PCP: Dr. Deirdre Quiñones MD Status: REG CLI Study: Spine Lumbar (Routine) Date of Exam: 08/11/22 Exam# [id number] Ordering Dr: Abhishek Kumar DO INDICATION: Back [...] 22:25 EST Reading Location ID and State: [address] [place] [address] Tel , Service support , CC: Dr. Abhishek Kumar DO; Dr. Deirdre Quiñones MD Conference Planner: Signed Normal [facility] Lumbar Spine 2 or 3 Viewson 07-23-2022 Lumbar Spine 2 or 3 Views [facility] Radiology [address] [place] [address] Lumbar Spine 2 or 3 Views MR#: [id number] Acct: [id number] Name: Sarah CHAVEZ Rep #: [id number] : 1945 F 76 From: Naresh Johnson PCP: Dr. Deirdre Quiñones MD Status: DEP AMB Study: Lumbar Spine 2 or 3 Views Date of Exam: Exam# [id number] Ordering Dr: Abhishek Kumar DO STUDY: X-RAY [...] 16:22 EST Reading Location ID and State: [facility] / [place] , Service support , CC: Dr. Abhishek Kumar DO; Dr. Deirdre Quiñones MD Conference Planner: Signed Normal [facility] Orthopedic Visit Reporton Orthopedic Visit Report [facility] [address] [place] [address] OFFICE VISIT Date of Service: 07/23/22 MR#: [id number] Acct: [id number] Name: Sarah CHAVEZ Rep #: [id number] : 1945 Provider: Dr. Abhishek moore DO Age/Sex: 76/F [place] [facility] Status: Signed Intake Vital Signs 05/11/21 09:37 [...] capsule ea PO 07/23/22 [History Confirmed 07/23/22] [facility] Medical History (Updated 07/23/22 @ [...] by me, Dr. Abhishek Kumar DO 07/23/22 2589. Sarah CHAVEZ is a 76 year old [...] unspecified 07/23/22 0943 Date Abhishek Kumar DO [facility] Signature: Date (if applicable) CC: Dr. Deirdre Quiñones, (more content not included)... Normal [facility] XR HIP BILATERAL 5V PEL/AP/L AT EACH HIPon 07-05-2022 IMPRESSION: 1. 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 2. Left hip unremarkable. 2. No fracture. Conference Planner: Ofelia FelizB Transcribe Date/Time: Jul 05 2022 6:54P Dictated by : MILTON MILLER MD This examination was interpreted and the report reviewed and electronically signed by: MILTON MILLER MD on Jul 05 2022 6:57PM [facility] DIVISION OF RADIOLOGY * * *Final Report* [...] consistent with chondrocalcinosis. DIVISION OF RADIOLOGY [facility] * * *Final [...] 2. Left hip unremarkable. 2. No fracture. Conference Planner: PSCB Transcribe Date/Time: Jul 05 2022 6:54P Dictated by : MILTON MILLER MD This examination was interpreted and the report reviewed and electronically signed by: MILTON MILLER MD on Jul 05 2022 6:57PM EST [facility] Radiology Study observation (narrative) [facility] XR HIP BILATERAL 5V PEL/AP/L AT EACH HIPOrdered By: Ccf Provider on 07-05-[address] [facility] XR Chest PA and Lateralon IMPRESSION: No acute radiographic abnormality. Conference Planner: Ofelia FelizB Transcribe Date/Time: Nov 23 2021 12:24P Dictated [...] spine IMPRESSION IMPRESSION: No acute radiographic abnormality. Conference Planner: PSCKate Transcribe Date/Time: Nov 23 2021 12:24P Dictated by : ANDREINA REYES MD This examination was interpreted and the report reviewed and electronically signed by: ANDREINA REYES MD on Nov 23 2021 12:25PM EST [facility] Radiology Study observation (narrative) [facility] XR Chest PA and LateralOrder ed By: Ccf Provider on 11-23-[address] [facility] ALBUMIN/CREAT RATIO RND URon 09-27-2021 Albumin DL <= 20 mg/L (U) [Mass/Vol] 36.6 mg/L [facility] Albumin/Creatinine (U) [Mass ratio] 86 mg/g High <30 mg/g [facility] Creatinine (U) [Mass/Vol] 42.8 mg/dL 20.0 - 300.0 mg/dL [facility] CBC W Auto Differential pane l (Bld)on 09-26-2021 Abs Immature Gran 0.04 k/uL <0.10 k/uL [facility] Basophils (Bld) [#/Vol] 0.15 10*3/uL High <0.11 k/uL [facility] Basophils/100 WBC (Bld) 1.4 % [facility] Differential cell count method Nom (Bld) Auto [facility] Eosinophils (Bld) [#/Vol] 0.62 10*3/uL High <0.46 k/uL [facility] Eosinophils/100 WBC (Bld) 5.6 % [facility] Erythrocyte distribution width (RBC) [Ratio] 11.9 % 11.5 - 15.0 % [facility] Hematocrit (Bld) [Volume fraction] 43.4 % 36.0 - 46.0 % [facility] Hemoglobin (Bld) [Mass/Vol] 14.0 g/dL 11.5 - 15.5 g/dL [facility] Immature Gran % 0.4 % [facility] Lymphocytes (Bld) [#/Vol] 4.75 10*3/uL High 1.00 - 4.00 k/uL [facility] Lymphocytes/100 WBC (Bld) 43.1 % [facility] MCH (RBC) [Entitic mass] 30.8 pg 26.0 - 34.[address] [facility] MCHC (RBC) [Mass/Vol] 32.3 g/dL 30.5 - 36.0 g/dL [facility] MCV (RBC) [Entitic vol] 95.4 fL 80.0 - 100.[address] [facility] Monocytes (Bld) [#/Vol] 0.87 10*3/uL High <0.87 k/uL [facility] Monocytes/100 WBC (Bld) 7.9 % [facility] Neutrophils (Bld) [#/Vol] 4.59 10*3/uL 1.45 - 7.50 k/uL [facility] Neutrophils/100 WBC (Bld) 41.6 % [facility] Nucleated RBC (Bld) [#/Vol] 10*3/uL <0.01 k/uL [facility] Nucleated RBC/100 WBC (Bld) [Ratio] 0.0 /[address] [facility] Platelet mean volume (Bld) [Entitic vol] 9.3 fL 9.0 - 12.[address] [facility] Platelets (Bld) [#/Vol] 323 10*3/uL 150 - 400 k/uL [facility] RBC (Bld) [#/Vol] 4.55 10*6/uL 3.90 - 5.2 0 m/uL [facility] WBC (Bld) [#/Vol] 11.02 10*3/uL High 3.70 - 11 .00 k/uL [facility] Comprehensive metabolic 2000 panelon 09-26-2021 Albumin [Mass/Vol] 4.5 g/dL 3.9 - 4.9 g/dL [facility] ALP [Catalytic activity/Vol] 30 U/L Low 34 - 123 U/L [facility] ALT [Catalytic activity/Vol] 20 U/L 7 - 38 U/L [facility] Anion gap [Moles/Vol] 13 mmol/L 9 - 18 mmol/L [facility] AST [Catalytic activity/Vol] 24 U/L 13 - 35 U/L [facility] Bilirubin [Mass/Vol] 0.2 mg/dL 0.2 - 1 .3 mg/dL [facility] Calcium [Mass/Vol] 10.0 mg/dL 8.5 - 10. 2 mg/dL [facility] Chloride [Moles/Vol] 98 mmol/L 97 - 10 5 mmol/L [facility] CO2 [Moles/Vol] 24 mmol/L 22 - 30 mmol/L [facility] Creatinine [Mass/Vol] 0.68 mg/dL 0.58 - 0.96 mg/dL [facility] Estimated Glomerular Filtration Rate 90 mL/min/1.73m >=60 mL/min/1.73m [facility] Glucose [Mass/Vol] 179 mg/dL High 74 - 99 mg/dL [facility] Potassium [Moles/Vol] 4.6 mmol/L 3.7 - 5.1 mmol/L [facility] Protein [Mass/Vol] 7.2 g/dL 6.3 - 8.0 g/dL [facility] Sodium [Moles/Vol] 135 mmol/L Low 136 - 144 mmol/L [facility] Urea nitrogen [Mass/Vol] 17 mg/dL 7 - 21 mg/dL [facility] HGB A1Con 09-26-2021 Average glucose Estimated from glycated hemoglobin (Bld) [Mass/Vol] 220 mg/dL [facility] HbA1c (Bld) [Mass fraction] 9.3 % High 4.3 - 5.6 % [facility] LIPID PANEL, NONFASTINGon Cholesterol [Mass/Vol] 212 mg/dL High <200 mg/dL [facility] HDL Cholesterol, Nonfasting 46 mg/dL >39 mg/dL [facility] LDL Cholesterol, Nonfasting 105 mg/dL High <100 mg/dL [facility] LDL/HDL Ratio, Nonfasting 2.28 mg/dL <2.54 mg/dL [facility] Non HDL Cholesterol, Nonfasting 166 mg/dL High <130 mg/dL [facility] Total Chol/HDL Ratio, Nonfasting 4.61 mg/dL <5.10 mg/dL [facility] Triglycerides, Nonfasting 303 mg/dL High <150 mg/dL [facility] VLDL Cholesterol, Nonfasting 61 mg/dL High <30 mg/dL [facility] TSH BLDon 09-26-2021 TSH Qn 3.130 m[IU]/L 0.270 - 4.200 mIU/L [facility] CNOVon 07-18-2021 CNOV Office Visit (NEAGCL M) SHEREE CHAVEZ ([id number]) 1945 F Date Time Provider Department 07/18/21 10:30 AM DARRICK PIERRE NEAGCLM During your visit today, we recorded the following information about you: Temperature Pulse Blood pressure Weight 97.3 degrees 69/minute 118/80 80.7 kg Height 1.651 m Darrick Pierre MD 07/18/2021 11:27 AM Signed NEUROSURGERY FOLLOW UP OFFICE NOTE Dr. Darrick Pierre MD, [facility] Date of visit:July 18, 2021 Patient Name: Ms.Alma Darshan Chavez Date of : 1945 Current Age: [age] year old Sex: female MRN/E# [id number] Last Office Visit: June 08, 2021 Chief [...] (FLONASE) 50 mcg/actuation nasal spray Use 1 Melber in each nostril once daily as needed. [...] 90 ta (more content not included)... Normal [facility] CT BRAIN WO IVCONon 07-18-19 CT [...] base and imaged soft tissues are unremarkable. Cherry Pitter (topogram) images: No additional significant findings. IMPRESSION: Interval resolution of the previously noted parafalcine subdural hemorrhage and right frontal parietal subarachnoid hemorrhage. No new hemorrhage in the interval. Mild chronic microvascular ischemic change throughout the supratentorial white matter. Conference Planner: YUMI Transcribe Date/Time: Jul 18 2021 2:47P Dictated by : AUSTIN JOHNSTON MD This examination was interpreted and the report reviewed and electronically signed by: AUSTIN JOHNSTON MD on Jul 18 2021 2:56PM EST [id number] Normal [facility] CNOVon 06-08-2021 CNOV Office Visit (JAYDON ) SHEREE CHAVEZ ([id number]) 1945 F Date Time Provider Department 06/08/21 10:30 AM DARRICK PIERRE During your visit today, we recorded the following information about you: Temperature Pulse Blood pressure Weight 97.6 degrees 83/minute 100/62 80.7 kg Height 1.651 m Darrick Pierre MD 06/08/2021 11:57 AM Signed NEUROSURGERY FOLLOW UP OFFICE NOTE Dr. Darrick Pierre MD, [facility] Date of visit: June 08, 2021 Patient Name: Ms.Alma Darshan Chavez Date of : 1945 Current Age: [age] year old Sex: female MRN/E# [id number] Last Office Visit: May 25, 2021 Chief [...] (FLONASE) 50 mcg/actuation nasal spray Use 1 Melber in each nostril once daily as needed. [...] 10 mg (more content not included)... Normal [facility] CT BRAIN WO IVCONon 06-08-20 21 [...] base and imaged soft tissues are unremarkable. Cherry Pitter (topogram) images: No additional findings. IMPRESSION: 1. Interval decrease of trace subarachnoid hemorrhage within right frontal lobe. Interval decrease in trace parafalcine subdural hemorrhage. No CT evidence of new intracranial hemorrhage. No significant mass effect. 2. No CT evidence of acute cortical infarct. 3. Chronic small vessel ischemic white matter disease and diffuse cerebral volume loss. Conference Planner: [facility] Transcribe Date/Time: Jun 08 2021 1:15P Dictated by : LAMONTE COLINDRES MD This examination was interpreted and the report reviewed and electronically signed by: LAMONTE COLINDRES MD on Jun 08 2021 1:25PM EST [id number] Normal [facility] CNOVon 05-25-2021 CNOV Office Visit (NUAGAK ) SHEREE CHAVEZ ([id number]) 1945 F Date Time Provider Department 05/25/21 [...] Age: [age] year old Sex: female MRN/E# [id number] Last Office Visit: Hospital follow-up Chief Complaint: [...] (FLONASE) 50 mcg/actuation nasal spray Use 1 Melber in each nostril once daily as needed. [...] once d (more content not included)... Normal [facility] CT BRAIN WO IVCONon 05-25-20 21 [...] the mastoid air cells are grossly clear. Cherry Pitter (topogram) images: No additional significant findings. IMPRESSION: Decreased conspicuity hyperdense subdural hematoma associated with the interhemispheric falx, currently measuring approximately 2 mm in maximal thickness, previously approximately 4 mm. No definitive residual right frontal parietal convexity subdural hematoma. Trace right frontal parietal subarachnoid hemorrhage is less conspicuous. No new hemorrhage in the interval. Conference Planner: PSCB Transcribe Date/Time: May 25 2021 1:27P Dictated by : AUSTIN JOHNSTON MD This examination was interpreted and the report reviewed and electronically signed by: AUSTIN JOHNSTON MD on May 25 2021 1:37PM EST [id number] Normal [facility] Basic metabolic 2000 panelon 05-13-2021 Anion gap [Moles/Vol] 10 mmol/L Normal -18 [facility] Comment on above: Order Comment: Speci men Type: BLOOD SPECIMEN Performed By: #### 1 9123-9, 2777-, 61417-8 ####[facility]ORY[facility]IA [id number] [place] [address] [place] Calcium [Mass/Vol] 8.9 mg/dL Normal 8.5-10.2 [facility] Comment on above: Order Comment: Speci men Type: BLOOD SPECIMEN Performed By: #### 1 9123-9, 27701-05, 72638-0 ####[facility] [id number] [place] [address] [place] Chloride [Moles/Vol] 102 mmol/L Normal 97-105 [facility] Comment on above: Order Comment: Speci men Type: BLOOD SPECIMEN Performed By: #### 1 9123-9, 27701-05, 83802-4 ####[facility]CL[facility] [id number] [place] [address] [place] CO2 [Moles/Vol] 24 mmol/L Normal 22-30 [facility] Comment on above: Order Comment: Speci men Type: BLOOD SPECIMEN Performed By: #### 1 9123-9, 2777, 57778-5 ####[facility]ORYCLIA [id number] [place] [address] [place] Creatinine [Mass/Vol] 0.78 mg/dL Normal 0.58-0.96 [facility] Comment on above: Order Comment: Speci [facility] Type: BLOOD SPECIMEN Performed By: #### 1 9123-9, 2777-1, 64527-4 ####[facility]ORYCLIA [id number] [address] [place] GFR/1.73 sq M.predicted MDRD (S/P/Bld) [Vol rate/Area] mL/min/{1.73_m2} Normal [facility] Comment on above: Order Comment: Speci [...] GFR. Performed By: #### 1 9123-9, 2777-1, 94770-4 ####[facility]ORYCLIA [id number] [place] [address] [place] Glucose [Mass/Vol] 167 mg/dL High 74-99 [facility] Comment on above: Order [facility]: [facility] Type: BLOOD SPECIMEN Result Comment: The [place] [employer] (ADA) provides guidance for cutoff [...] Standards of Medical Care in Diabetes 2016, [place] [employer]. Diabetes Care. 2016.39(Suppl 1). Performed By: #### 1 9123-9, 2777, 29953-7 ####[facility]ORYCLIA [id number] [address] Potassium [Moles/Vol] 4.1 mmol/L Normal 3.7-5.1 [facility] Comment on above: Order Comment: Speci men Type: BLOOD SPECIMEN Performed By: #### 1 9123-9, 2777, 85640-2 ####[facility]ORYCLIA [id number] [address] Sodium [Moles/Vol] 136 mmol/L Normal 136-144 [facility] Comment on above: Order Comment: Speci men Type: BLOOD SPECIMEN Performed By: #### 1 9123-9, 27701-05, ####[facility]ORYCLIA [id number] [address] Urea nitrogen [Mass/Vol] 14 mg/dL Normal 7-21 [facility] Comment on above: Order Comment: Speci men Type: BLOOD SPECIMEN Performed By: #### 1 9123-9, 2777, ####[facility]ORYCLIA [id number] [address] CALCIUM IONIZED Bon 05-13-20 21 Calcium.ionized (BldV) [Mass/Vol] 1.08 mmol/L Normal 1.08-1.30 [facility] Comment on above: Order Comment: Speci men Type: BLOOD SPECIMEN Performed By: #### I CA ####[facility]ORYCLIA [id number] [address] Calcium.ionized adjusted to pH 7.4 (Bld) [Moles/Vol] 1.09 mmol/L Normal 1.08-1.30 [facility] Comment on above: Order Comment: Speci men Type: BLOOD SPECIMEN Performed By: #### I CA ####[facility]ORYCLIA [id number] [address] CBC panel Auto (Bld)on 05-13 Erythrocyte distribution width (RBC) [Ratio] 11.9 % Normal 11.5-15.0 [facility] Comment on above: Order Comment: Speci men Type: BLOOD SPECIMEN Performed By: #### 5 8410-2 ####[facility]ORYCLIA [id number] [address] Hematocrit (Bld) [Volume fraction] 39.1 % Normal 36.0-46.0 [facility] Comment on above: Order Comment: Speci men Type: BLOOD SPECIMEN Performed By: #### 5 8410-2 ####[facility]ORYCLIA [id number] [address] Hemoglobin (Bld) [Mass/Vol] 12.9 g/dL Normal 11.5-15.5 [facility] Comment on above: Order Comment: Speci men Type: BLOOD SPECIMEN Performed By: #### 5 8410-2 ####[facility]ORYCLIA [id number] [address] MCH (RBC) [Entitic mass] 31.2 pg Normal 26.0-34.0 [facility] Comment on above: Order Comment: Speci men Type: BLOOD SPECIMEN Performed By: #### 5 8410-2 ####[facility]ORYCLIA [id number] [address] MCHC (RBC) [Mass/Vol] 33.0 g/dL Normal 30.5-36.0 [facility] Comment on above: Order Comment: Speci men Type: BLOOD SPECIMEN Performed By: #### 5 8410-2 ####[facility]ORYCLIA [id number] [address] MCV (RBC) [Entitic vol] 94.7 fL Normal 80.0-100.0 [facility] Comment on above: Order Comment: Speci men Type: BLOOD SPECIMEN Performed By: #### 5 8410-2 ####[facility]ORYCLIA [id number] [address] [place] Nucleated RBC (Bld) [#/Vol] 10*3/uL Normal <0.01 [facility] Comment on above: Order Comment: Speci men Type: BLOOD SPECIMEN Performed By: #### 5 8410-2 ####[facility]ORYCLIA [id number] [address] Platelet mean volume (Bld) [Entitic vol] 9.2 fL Normal 9.0-12.7 [facility] Comment on above: Order Comment: Speci men Type: BLOOD SPECIMEN Performed By: #### 5 8410-2 ####[facility]ORYCLIA [id number] [address] Platelets (Bld) [#/Vol] 278 10*3/uL Normal 150-400 [facility] Comment on above: Order Comment: Speci men Type: BLOOD SPECIMEN Performed By: #### 5 8410-2 ####[facility]ORYCLIA [id number] [address] RBC (Bld) [#/Vol] 4.13 10*6/uL Normal 3.90-5.20 [facility] Comment on above: Order Comment: Speci men Type: BLOOD SPECIMEN Performed By: #### 5 8410-2 ####[facility]ORYCLIA [id number] [address] WBC (Bld) [#/Vol] 8.56 10*3/uL Normal 3.70-11.00 [facility] Comment on above: Order Comment: Speci men Type: BLOOD SPECIMEN Performed By: #### 5 8410-2 ####[facility]ORYCLIA [id number] [address] CNDSon 05-13-2021 CNDS HNO ID: [id number] Author: Margret Dawson APRN.CNP Service: General Surgery [...] IN THE HOSPITAL: You were admitted at [facility] on 05/11/2021 following a fall. As part [...] you become constipated, you may use any hgfh-ccp-axxmtui treatment such as Milk of Magnesia, Sennakot, Prune Juice, Suppositories, etc. in addition to the stool softener/fiber supplement Other: Do not take any over the counter blood thinning medications such as ibuprofen, motrin, aspirin, naproxen, or aleve until cleared by neurosurgery. Use acetaminophen (Tylenol) as recommended on the bottle You should use an fhlw-bqj-rtaugfk stool softener (Docusate sodium) and/or a fiber [...] call for appointment?: Yes Darrick Pierre MD [phone] [address] [facility] [address] PCP Requested Referral Follow-Up Appointment When: In 2 weeks Patient/Parents to call for appointment?: Yes Deirdre Quiñones MD [phone] [address] [place] [address] PCP Requested Referral Additional Provider to Provider [...] FOLLOW-UP APPO (more content not included)... Normal [facility] Magnesium SerPl-mCncon 05-13 Magnesium [Mass/Vol] 2.0 mg/dL Normal 1.7-2.3 [facility] Comment on above: Order Comment: Speci men Type: BLOOD SPECIMEN Performed By: #### 1 9123-9, 2777-1, 61681-2 ####[facility]ORYCLIA [id number] [address] Phosphate SerPl-ncon 05-13 Phosphate [Mass/Vol] 3.6 mg/dL Normal 2.7-4.8 [facility] Comment on above: Order Comment: Speci men Type: BLOOD SPECIMEN Performed By: #### 1 9123-9, 2777-1, 31214-9 ####[facility]ORYCLIA [id number] [address] THERAPY NTon 05-13-2021 THERAPY NT HNO ID: [id number] Author: Lily Johnson [facility]-EMBROIDERY PATTERNMAKER Service: Speech/Swallow Author Type: Speech Language Pathologist Type: Therapy (PT/OT/Speech/Resp) Filed: 05/13/2021 9:26 AM Note Text: Speech Therapy Speech Evaluation SERVICE DATE: 05/13/2021 SERVICE TIME: 902 to 18 ROOM: [place] [address] IMPRESSION: Functional communication without limitations in: Speech,Language,Cognit [...] 09/07 Months Reversed 09/07 30 Seconds 08/10 Vwjx-Ojmi-Cmfz 09/07 Go/No-Go 09/07 Address Recall 08/10 Total [...] Skilled Need Interventions Provided: Speech Language Eval (74107) $ Speech Language Eval (85822) Billed Units: 1 unit Training and education [...] for this therapy evaluation/treatment. SIGNATURE: Lily Johnson CCC-EMBROIDERY PATTERNMAKER PATIENT NAME: Sheree Chavez DATE: May 13, 2021 TIME: 9:25 AM [facility] HNO ID: [id number] Author: RT Michael(R) Service: Radiology Author Type: Panel Machine Operator Type: Allied Health Filed: 05/12/2021 2:08 PM [...] May 12, 2021 2:08 PM Normal [facility] HNO ID: [id number] Author: RT Melba(R) Service: Radiology Author Type: [...] Jenn(R) May 12, 2021 12:20 PM Normal [facility] Basic metabolic 2000 panelon 05-12-2021 Anion gap [Moles/Vol] 11 mmol/L Normal 9-18 [facility] Comment on above: Order Comment: Speci men Type: BLOOD SPECIMEN Performed By: #### 1 9123-9, 24537-4, 2776- ####[facility]ORYCLIA [id number] [address] STATES OF [facility] Calcium [Mass/Vol] 8.5 mg/dL Normal 8.5-10.2 [facility] Comment on above: Order Comment: Speci men Type: BLOOD SPECIMEN Performed By: #### 1 9122-9, 48419-0, 2776- ####[facility]ORYCLIA [id number] [address] [place] Chloride [Moles/Vol] 104 mmol/L Normal 97-105 [facility] Comment on above: Order Comment: Speci men Type: BLOOD SPECIMEN Performed By: #### 1 23-9, 48687-4, 2776- ####[facility]ORYCLIA [id number] [address] [place] CO2 [Moles/Vol] 24 mmol/L Normal 22-30 [facility] Comment on above: Order Comment: Speci men Type: BLOOD SPECIMEN Performed By: #### 1 23-9, 80094-2, 2776- ####[facility]ORYCLIA [id number] [place] [address] [place] Creatinine [Mass/Vol] 0.70 mg/dL Normal 0.58-0.96 [facility] Comment on above: Order Comment: Speci men Type: BLOOD SPECIMEN Performed By: #### 1 9123-9, 80359-1, 2776- ####[facility]ORYCLIA [id number] [place] [address] [place] GFR/1.73 sq M.predicted MDRD (S/P/Bld) [Vol rate/Area] mL/min/{1.73_m2} Normal [facility] Comment on above: Order Comment: Speci [...] actual GFR. Performed By: #### 1 9123-9, 45973-4, 2776- ####[facility]ORYCLIA [id number] [place] [address] [place] Glucose [Mass/Vol] 146 mg/dL High 74-99 [facility] Comment on above: Order Comment: Speci men Type: BLOOD SPECIMEN Result Comment: The [place] [employer] (ADA) provides guidance for cutoff [...] Standards of Medical Care in Diabetes 2016, [place] [employer]. Diabetes Care. 2016.39(Suppl 1). Performed By: #### 1 9123-9, 31543-6, 2776-07 ####[facility]ORYCLIA [id number] [place] [id number] [place] Potassium [Moles/Vol] 3.8 mmol/L Normal 3.7-5.1 [facility] Comment on above: Order Comment: Speci men Type: BLOOD SPECIMEN Performed By: #### 1 9123-9, 25837-5, 2776- ####[facility]ORYCLIA [id number] [address] Sodium [Moles/Vol] 139 mmol/L Normal 136-144 [facility] Comment on above: Order Comment: Speci men Type: BLOOD SPECIMEN Performed By: #### 1 9123-9, 56054-2, 2776- ####[facility]ORYCLIA [id number] [address] Urea nitrogen [Mass/Vol] 9 mg/dL Normal 7-21 [facility] Comment on above: Order Comment: Speci men Type: BLOOD SPECIMEN Performed By: #### 1 9123-9, 23579-1, 2776-07 ####[facility]ORYCLIA [id number] [address] CALCIUM IONIZED Bon 05-12-20 Calcium.ionized (BldV) [Mass/Vol] 1.12 mmol/L Normal 1.08-1.30 [facility] Comment on above: Order Comment: Speci men Type: BLOOD SPECIMEN Performed By: #### I CA ####[facility]ORYCLIA [id number] [address] Calcium.ionized adjusted to pH 7.4 (Bld) [Moles/Vol] 1.10 mmol/L Normal 1.08-1.30 [facility] Comment on above: Order Comment: Speci men Type: BLOOD SPECIMEN Performed By: #### I CA ####[facility]ORYCLIA [id number] [address] CBC panel Auto (Bld)on 05-12 Erythrocyte distribution width (RBC) [Ratio] 12.0 % Normal 11.5-15.0 [facility] Comment on above: Order Comment: Speci men Type: BLOOD SPECIMEN Performed By: #### 5 8410-2 ####[facility]CLIA [id number] [address] Hematocrit (Bld) [Volume fraction] 38.2 % Normal 36.0-46.0 [facility] Comment on above: Order Comment: Speci men Type: BLOOD SPECIMEN Performed By: #### 5 8410-2 ####[facility]ORYCLIA [id number] [address] Hemoglobin (Bld) [Mass/Vol] 12.4 g/dL Normal 11.5-15.5 [facility] Comment on above: Order Comment: Speci men Type: BLOOD SPECIMEN Performed By: #### 5 8410-2 ####[facility]ORYCLIA [id number] [address] MCH (RBC) [Entitic mass] 30.7 pg Normal 26.0-34.0 [facility] Comment on above: Order Comment: Speci men Type: BLOOD SPECIMEN Performed By: #### 5 8410-2 ####[facility]CLIA [id number] [address] MCHC (RBC) [Mass/Vol] 32.5 g/dL Normal 30.5-36.0 [facility] Comment on above: Order Comment: Speci men Type: BLOOD SPECIMEN Performed By: #### 5 8410-2 ####[facility]ORYCLIA [id number] [address] MCV (RBC) [Entitic vol] 94.6 fL Normal 80.0-100.0 [facility] Comment on above: Order Comment: Speci men Type: BLOOD SPECIMEN Performed By: #### 5 8410-2 ####[facility]ORYCLIA [id number] [address] Nucleated RBC (Bld) [#/Vol] 10*3/uL Normal <0.01 [facility] Comment on above: Order Comment: Speci men Type: BLOOD SPECIMEN Performed By: #### 5 8410-2 ####[facility]ORYCLIA [id number] [address] Platelet mean volume (Bld) [Entitic vol] 8.8 fL Low 9.0-12.7 [facility] Comment on above: Order Comment: Speci men Type: BLOOD SPECIMEN Performed By: #### 5 8410-2 ####[facility]ORYCLIA [id number] [address] OF [facility] Platelets (Bld) [#/Vol] 273 10*3/uL Normal 150-400 [facility] Comment on above: Order Comment: Speci men Type: BLOOD SPECIMEN Performed By: #### 5 8410-2 ####[facility]ORYCLIA [id number] [address] RBC (Bld) [#/Vol] 4.04 10*6/uL Normal 3.90-5.20 [facility] Comment on above: Order Comment: Speci men Type: BLOOD SPECIMEN Performed By: #### 5 8410-2 ####[facility]ORYCLIA [id number] [address] WBC (Bld) [#/Vol] 10.12 10*3/uL Normal 3.70-11.00 [facility] Comment on above: Order Comment: Speci men Type: BLOOD SPECIMEN Performed By: #### 5 8410-2 ####[facility]ORYCLIA [id number] [address] BRAIN WO IVCONon 05-12-[address] BRAIN WO IVCON * * *Final Report* * * DATE OF EXAM: May 12 2021 6:35AM [facility] 0504 - CT BRAIN WO IVCON / [...] Reduction Employed: [employer] COMPARISON: 05/11/2021 RESULT: Cherry Pitter (topogram) images: Post-operative change: None. Acute change: [...] evidence of new intracranial hemorrhage is identified. Conference Planner: YUMI Transcribe Date/Time: May 12 2021 6:46A Dictated by : LIONEL LARSON MD This examination was interpreted and the report reviewed and electronically signed by: LIONEL LARSON MD on May 12 2021 6:51AM EST [id number] Normal [facility] CT LUMBAR SPINE WO IVCONon 1 07-12-2020 CT LUMBAR SPINE WO IVCON * * *Final Report* * * DATE OF EXAM: May 12 2021 1:58PM [facility] 0508 - CT LUMBAR SPINE WO IVCON [...] level is at the level iliac crests Cherry Pitter (topogram) images: Moderate degree of arterial calcification [...] Coexisting moderate degree of bilateral foraminal stenosis Conference Planner: [facility] Transcribe Date/Time: May 12 2021 2:14P Dictated by : MARIA G GRAHAM MD This examination was interpreted and the report reviewed and electronically signed by: MARIA G GRAHAM MD on May 12 2021 2:28PM EST [id number] Normal [facility] CT PELVIS ORTHO WO IVCONon 1 07-12-2020 CT PELVIS ORTHO WO IVCON * * *Final Report* * * DATE OF EXAM: May 12 2021 5:49AM [facility] 0087 - CT PELVIS ORTHO WO IVCON [...] CAM femoroacetabular impingement, right worse than left. Conference Planner: PSCB Transcribe Date/Time: May 12 2021 7:21A Dictated by : YANA KEENE MD This examination was interpreted and the report reviewed and electronically signed by: YANA KEENE MD on May 12 2021 7:33AM EST [id number] Normal [facility] ED NOTEon 05-12-2021 ED NOTE HNO ID: [id number] Author: Harjit Cosme Service: Emergency Medicine Author Type: Panel Machine Operator Type: ED Notes Filed: 05/12/2021 12:41 PM Note Text: [id number]. Rn informed Normal [facility] ED NOTE HNO ID: [id number] Author: Leah Roach RN Service: Emergency Medicine Author Type: Registered Nurse Type: ED Notes Filed: 05/12/2021 6:53 AM Note Text: Trauma team at bedside for update and reassessment of patient. Per team, general surgery and ortho, patient should be able to go to floor other than ICU. Pt will continue to be NPO until recent scans are back and reeval completed. Normal [facility] ED NOTE HNO ID: [id number] Author: Leah Roach RN Service: Emergency Medicine Author Type: Registered Nurse Type: ED Notes Filed: 05/12/2021 4:13 AM Note Text: Pt up with one assist to bedside commode. Pt denies any pain. Pt alert and oriented, no neuro deficits noted. Normal [facility] ED PROV NOTEon 05-12-2021 ED PROV NOTE HNO ID: [id number] Author: Amalia Mathias MD Service: Emergency Medicine [...] for disposition details Amalia Mathias MD 05/11/21 [id number] Normal [facility] Magnesium SerPl-mCncon 05-12 Magnesium [Mass/Vol] 1.6 mg/dL Low 1.7-2.3 [facility] Comment on above: Order Comment: Speci men Type: BLOOD SPECIMEN Performed By: #### 1 9123-9, 73068-8, 2777-1 ####[facility] [id number] [address] [place] Phosphate SerPl-mCncon 05-12 Phosphate [Mass/Vol] 3.9 mg/dL Normal 2.7-4.8 [facility] Comment on above: Order Comment: Speci men Type: BLOOD SPECIMEN Performed By: #### 1 9123-9, 65674-6, 2777- ####[facility]ORYCLIA [id number] [place] [address] [place] SARS-CoV-2 RNA Resp Ql EULALIA+p robeon 05-12-2021 SARS-CoV-2 (COVID-19) RNA EULALIA+probe Ql (Resp) COVID 19 RESULT: SARS-CoV-2 (Agent of COVID-19) Not Detected by PCR. This test has been authorized by FDA under an Emergency Use Authorization (EUA). Normal [facility] Comment on above: Performed By: #### 9 4500-6 ####[facility]ORYCLIA [id number] [place] [address] [place] STAPH AUREUS PCRon S. aureus and MRSA panel EULALIA+probe (Nose) Normal Negative [facility] Comment on above: Order Comment: Speci men Type: SWAB OF INTERNAL NOSE Result Comment: Nega tive for Staphylococcus aureus by PCR. Negative for MRSA by PCR Performed By: #### S APCR ####[facility]ORYCLIA [id number] [address] TOX SCREEN ROUT URon 021 Amphetamines Confirm (U) [Mass/Vol] Negative Normal Negative [facility] Comment on above: Order Comment: Speci men Type: URINE SPECIMEN Result Comment: Cuto ff threshold at 1000 ng/mL. Performed By: #### U TOX2 ####[facility]ORYCLIA [id number] [address] BARBITURATES, URINE Negative Normal Negative [facility] Comment on above: Order Comment: Speci men Type: URINE SPECIMEN Result Comment: Cuto ff threshold at 200 ng/mL. Performed By: #### U TOX2 ####[facility]ORYCLIA [id number] [address] BENZODIAZEPINES, UR Negative Normal Negative [facility] Comment on above: Order Comment: Speci men Type: URINE SPECIMEN Result Comment: Cuto ff threshold at 200 ng/mL. Performed By: #### U TOX2 ####[facility]IA [id number] [address] CANNABINOIDS,URINE Negative Normal Negative [facility] Comment on above: Order Comment: Speci men Type: URINE SPECIMEN Result Comment: Cuto ff threshold at 50 ng/mL. Performed By: #### U TOX2 ####[facility]IA [id number] [address] Cocaine Ql (U) Negative Normal Negative [facility] Comment on above: Order Comment: Speci men Type: URINE SPECIMEN Result Comment: Cuto ff threshold at 300 ng/mL. Performed By: #### U TOX2 ####[facility]CLIA [id number] [address] OF [facility] Ethanol (U) [Mass/Vol] <11 Normal <11 [facility] Comment on above: Order Comment: Speci men Type: URINE SPECIMEN Performed By: #### U TOX2 ####[facility]ORYCLIA [id number] [address] Opiates Screen Ql (U) Negative Normal Negative [facility] Comment on above: Order Comment: Speci men Type: URINE SPECIMEN Result Comment: Cuto ff threshold at 300 ng/mL. Performed By: #### U TOX2 ####[facility]ORYCLIA [id number] [address] oxyCODONE cutoff Screen (U) [Mass/Vol] Negative Normal Negative [facility] Comment on above: Order Comment: Speci men Type: URINE SPECIMEN Result Comment: Cuto ff threshold at 100 ng/mL. Performed By: #### U TOX2 ####[facility]ORYCLIA [id number] [address] Phencyclidine Ql (U) Negative Normal Negative [facility] Comment on above: Order Comment: Speci men Type: URINE SPECIMEN Result Comment: Cuto ff threshold at 25 ng/mL. Performed By: #### U TOX2 ####[facility]ORYCLIA [id number] [address] XR CERVICAL 2V FLEX/EXTon XR CERVICAL [...] No abnormal subluxation with flexion and extension. Conference Planner: PSCB Transcribe Date/Time: May 12 2021 3:07P Dictated by : FANNY CAMPOS MD This examination was interpreted and the report reviewed and electronically signed by: FANNY CAMPOS MD on May 12 2021 3:09PM EST [id number] Normal [facility] ALLIED HEALTHon 05-11-2021 ALLIED HEALTH HNO ID: [id number] Author: Chaplain Genesis Service: Spiritual Care Author Type: Sewing Machine Operator Zipper Type: Allied Health Filed: 05/11/2021 3:43 PM Note Text: SPIRITUAL CARE PROGRESS NOTE SERVICE DATE: 05/11/2021 SERVICE TIME: 3:30pm Sewing Machine Operator Zipper responded to ED page; but no family was present To contact the Spiritual Care Department: Please call . SIGNATURE: Chaplain Genesis PATIENT NAME: Sheree Chavez DATE: May 11, 2021 TIME: 3:42 PM PAGER/CONTACT #: [phone] Normal [facility] CBC panel Auto (Bld)on 05-11 Erythrocyte distribution width (RBC) [Ratio] 11.9 % Normal 11.5-15.0 [facility] Comment on above: Order Comment: Speci men Type: BLOOD SPECIMEN Performed By: #### 5 8410-2 ####[facility]ORYCLIA [id number] [address] STATES OF [facility] Hematocrit (Bld) [Volume fraction] 42.2 % Normal 36.0-46.0 [facility] Comment on above: Order Comment: Speci men Type: BLOOD SPECIMEN Performed By: #### 5 8410-2 ####[facility]ORYCLIA [id number] [address] [place] Hemoglobin (Bld) [Mass/Vol] 13.9 g/dL Normal 11.5-15.5 [facility] Comment on above: Order Comment: Speci men Type: BLOOD SPECIMEN Performed By: #### 5 8410-2 ####[facility]ORYCLIA [id number] [address] [place] MCH (RBC) [Entitic mass] 30.8 pg Normal 26.0-34.0 [facility] Comment on above: Order Comment: Speci men Type: BLOOD SPECIMEN Performed By: #### 5 8410-2 ####[facility]ORYCLIA [id number] [address] MCHC (RBC) [Mass/Vol] 32.9 g/dL Normal 30.5-36.0 [facility] Comment on above: Order Comment: Speci men Type: BLOOD SPECIMEN Performed By: #### 5 8410-2 ####[facility]ORYCLIA [id number] [address] MCV (RBC) [Entitic vol] 93.6 fL Normal 80.0-100.0 [facility] Comment on above: Order Comment: Speci men Type: BLOOD SPECIMEN Performed By: #### 5 8410-2 ####[facility]ORYCLIA [id number] [address] Nucleated RBC (Bld) [#/Vol] 10*3/uL Normal <0.01 [facility] Comment on above: Order Comment: Speci men Type: BLOOD SPECIMEN Performed By: #### 5 8410-2 ####[facility]ORYCLIA [id number] [address] Platelet mean volume (Bld) [Entitic vol] 8.9 fL Low 9.0-12.7 [facility] Comment on above: Order Comment: Speci men Type: BLOOD SPECIMEN Performed By: #### 5 8410-2 ####[facility]ORYCLIA [id number] [address] Platelets (Bld) [#/Vol] 317 10*3/uL Normal 150-400 [facility] Comment on above: Order Comment: Speci men Type: BLOOD SPECIMEN Performed By: #### 5 8410-2 ####[facility]ORYCLIA [id number] [address] RBC (Bld) [#/Vol] 4.51 10*6/uL Normal 3.90-5.20 [facility] Comment on above: Order Comment: Speci men Type: BLOOD SPECIMEN Performed By: #### 5 8410-2 ####[facility]ORYCLIA [id number] [address] OF [facility] WBC (Bld) [#/Vol] 13.23 10*3/uL High 3.70-11.00 [facility] Comment on above: Order Comment: Speci men Type: BLOOD SPECIMEN Performed By: #### 5 8410-2 ####[facility]ORYCLIA [id number] [address] CONSULTon 05-11-2021 CONSULT HNO ID: [id number] Author: Lane Flores MD Service: Orthopaedic Surgery Author Type: Physician Type: Consults Filed: 05/12/2021 11:54 AM Note Text: ORTHOPAEDIC SURGERY CONSULT Pt: SHEREE CHAVEZ Date of Consultation: 05/11/2021 Physician Consulted: Dr. Flores Reason for Consultation: R hip pain, concern for occult hip fracture HPI: 75 year old female presented to [facility] as a trauma transfer after sustaining a [...] daily. - Blood-Glucose Meter (FREESTYLE LITE METER) [facility] monitoring kit 1 Each. Freestyle LITE Meter [...] 4.0 05/11/2021 (more content not included)... Normal [facility] CONSULT HNO ID: [id number] Author: Bridgett Guerrero PA-C Service: Neurosurgery Author Type: Physician Metal Fabricating Shop Helper Type: Consults Filed: 05/11/2021 5:26 PM Note [...] brought her to OSH, then transferred to [facility]. She is currently awake and alert and [...] mouth onc (more content not included)... Normal [facility] CONSULT HNO ID: [id number] Author: Nicolas Donald MD Service: General Surgery [...] stable subdural (more content not included)... Normal [facility] CT BRAIN WO IVCONon 05-11-[address] BRAIN WO IVCON * * *Final Report* * * DATE OF EXAM: May 11 2021 3:47PM [facility] 0504 - CT BRAIN WO IVCON / [...] and C6-7. No significant bony foraminal stenosis Cherry Pitter (topogram) images: No additional findings. IMPRESSION: Stable bilateral subarachnoid and subdural hemorrhage. No new findings. No acute findings in the cervical spine. Degenerative changes. Anatomic Variant: None. Assume 7 cervical vertebrae with counting from the craniocervical junction. Conference Planner: PSCB Transcribe Date/Time: May 11 2021 4:06P Dictated by : CHRISSY CAMACHO MD This examination was interpreted and the report reviewed and electronically signed by: CHRISSY CAMACHO MD on May 11 2021 4:14PM EST [id number] Normal [facility] CT CERVICAL SPINE WO IVCONon 05-11-2021 CT CERVICAL SPINE WO IVCON * * *Final Report* * * DATE OF EXAM: May 11 2021 3:47PM [facility] 0505 - CT CERVICAL SPINE WO IVCON [...] and C6-7. No significant bony foraminal stenosis Cherry Pitter (topogram) images: No additional findings. IMPRESSION: Stable bilateral subarachnoid and subdural hemorrhage. No new findings. No acute findings in the cervical spine. Degenerative changes. Anatomic Variant: None. Assume 7 cervical vertebrae with counting from the craniocervical junction. Conference Planner: YUMI Transcribe Date/Time: May 11 2021 4:06P Dictated by : CHRISSY CAMACHO MD This examination was interpreted and the report reviewed and electronically signed by: CHRISSY CAMACHO MD on May 11 2021 4:14PM EST [id number] Normal [facility] Comprehensive metabolic 2000 panelon 05-11-2021 Albumin [Mass/Vol] 4.4 g/dL Normal 3.9-4.9 [facility] Comment on above: Order Comment: Speci men Type: BLOOD SPECIMEN Performed By: #### 2 4323-8, 3040-3 ####[facility]ORYCLIA [id number] [address] ALP [Catalytic activity/Vol] 31 U/L Low 34-123 [facility] Comment on above: Order Comment: Speci men Type: BLOOD SPECIMEN Performed By: #### 2 4323-8, 3040-3 ####[facility]CLIA [id number] [address] STATES [facility] ALT With P-5'-P [Catalytic activity/Vol] 22 U/L Normal 7-38 [facility] Comment on above: Order Comment: Speci men Type: BLOOD SPECIMEN Performed By: #### 2 4323-8, 3040-3 ####[facility]ORYCLIA [id number] [place], [place] [address] [place] [address] Anion gap [Moles/Vol] 14 mmol/L Normal 9-18 [facility] Comment on above: Order Comment: Speci men Type: BLOOD SPECIMEN Performed By: #### 2 4323-8, 3040-3 ####[facility]CLIA [id number] [address] STATES [facility] AST With P-5'-P [Catalytic activity/Vol] 20 U/L Normal 13-35 [facility] Comment on above: Order Comment: Speci men Type: BLOOD SPECIMEN Performed By: #### 2 4323-8, 3040-3 ####[facility]CLIA [id number] [address] Bilirubin [Mass/Vol] 0.3 mg/dL Normal 0.2-1.3 [facility] Comment on above: Order Comment: Speci men Type: BLOOD SPECIMEN Performed By: #### 2 4323-8, 3040-3 ####[facility]ORYCLIA [id number] [address] STATES OF [facility] Calcium [Mass/Vol] 9.5 mg/dL Normal 8.5-10.2 [facility] Comment on above: Order Comment: Speci men Type: BLOOD SPECIMEN Performed By: #### 2 4323-8, 0-3 ####[facility]ORYCLIA [id number] [address] STATES OF [facility] Chloride [Moles/Vol] 99 mmol/L Normal 97-105 [facility] Comment on above: Order Comment: Speci men Type: BLOOD SPECIMEN Performed By: #### 2 4323-8, 3039-3 ####[facility]ORYCLIA [id number] [address] [place] CO2 [Moles/Vol] 24 mmol/L Normal 22-30 [facility] Comment on above: Order Comment: Speci men Type: BLOOD SPECIMEN Performed By: #### 2 4323-8, 0-3 ####[facility]ORYCLIA [id number] [address] STATES OF [facility] Creatinine [Mass/Vol] 0.73 mg/dL Normal 0.58-0.96 [facility] Comment on above: Order Comment: Speci men Type: BLOOD SPECIMEN Performed By: #### 2 4323-8, 0-3 ####[facility]ORYCLIA [id number] [address] [place] GFR/1.73 sq M.predicted MDRD (S/P/Bld) [Vol rate/Area] mL/min/{1.73_m2} Normal [facility] Comment on above: Order Comment: Speci [...] GFR. Performed By: #### 2 4323-8, 3039-3 ####[facility]ORYCLIA [id number] [place] [address] [place] Glucose [Mass/Vol] 125 mg/dL High 74-99 [facility] Comment on above: Order Comment: Speci men Type: BLOOD SPECIMEN Result Comment: The [place] [employer] (ADA) provides guidance for cutoff [...] Standards of Medical Care in Diabetes 2016, [place] [employer]. Diabetes Care. 2016.39(Suppl 1). Performed By: #### 2 4323-8, 3 ####[facility]ORYCLIA [id number] [place] [address] [place] Potassium [Moles/Vol] 4.0 mmol/L Normal 3.7-5.1 [facility] Comment on above: Order Comment: Speci men Type: BLOOD SPECIMEN Performed By: #### 2 4323-8, 3039-3 ####[facility]ORYCLIA [id number] [place] [address] [place] Protein [Mass/Vol] 7.5 g/dL Normal 6.3-8.0 [facility] Comment on above: Order Comment: Speci men Type: BLOOD SPECIMEN Performed By: #### 2 4323-8, 3040-3 ####[facility]IA [id number] [address] Sodium [Moles/Vol] 137 mmol/L Normal 136-144 [facility] Comment on above: Order Comment: Speci men Type: BLOOD SPECIMEN Performed By: #### 2 4323-8, 3040-3 ####[facility]CLIA [id number] [address] Urea nitrogen [Mass/Vol] 10 mg/dL Normal 7-21 [facility] Comment on above: Order Comment: Speci men Type: BLOOD SPECIMEN Performed By: #### 2 4323-8, 3040-3 ####[facility]CLIA [id number] [address] ED NOTEon 05-11-2021 ED NOTE HNO ID: [id number] Author: Jocelyn Austin Service: ? 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 Patient fell from a stepstool backwards hitting her head on the ground. She was evaluated at [facility] and was found to have subarachnoid hemorrhage, [...] (Tenderness to (more content not included)... Normal [facility] Ethanol SerPl-mCncon 021 Ethanol [Mass/Vol] mg/dL Normal <11 [facility] Comment on above: Order Comment: Speci men Type: BLOOD SPECIMEN Performed By: #### 5 643-2 ####[facility]ORYCLIA [id number] [address] [place] HISTORY PHYSICALon HISTORY PHYSICAL HNO ID: [id number] Author: Chacho Ocampo MD Service: General Surgery [...] Date(s) Administered COVID-19 vaccine, age 12+ yr (tinyclues) 08/16/2020 09/07/2020 04/08/2021 H1N1 Influenza 05/17/2009 Influenza [...] No crep (more content not included)... Normal [facility] Lipase SerPl-cCncon 05-11-20 21 Lipase [Catalytic activity/Vol] 36 U/L Normal 16-61 [facility] Comment on above: Order Comment: Speci men Type: BLOOD SPECIMEN Performed By: #### 2 4323-8, 3040-3 ####[facility]ORYCLIA [id number] [place] [address] [place] PT panel Coag (PPP)on 2020 INR Coag (PPP) [Relative time] 1.0 {INR} Normal 0.9-1.3 [facility] Comment on above: Order Comment: Speci men Type: BLOOD SPECIMEN Result Comment: Alisha min K Antagonist (VKA) Therapeutic Range: INR 2 to 3 (Target INR of 2.5) Note: For patients treated with VKA drugs, such as warfarin, the [place] [employer] 2012 Guideline recommends [...] Chest 2012, 141:7S-47S Michele RA, et al. [facility] 2017, 70: 252-289 Performed By: #### 3 4528-0, 41082-6 ####[facility]ORYCLIA [id number] [address] PT Coag (PPP) [Time] 10.9 s Normal 9.7-13.0 [facility] Comment on above: Order Comment: Speci men Type: BLOOD SPECIMEN Performed By: #### 3 4528-0, 33525-3 ####[facility]ORYCLIA [id number] [address] TYPE AND SCREENon 05-11-2021 ABO A Normal [facility] Comment on above: Order Comment: Speci men Type: BLOOD SPECIMEN Performed By: #### T SCR #### [facility] CLIA [id number] [address] HISTORICAL AB SCR STATUS Negative [facility] Comment on above: Order Comment: Speci men Type: BLOOD SPECIMEN Performed By: #### T SCR #### [facility] CLIA [id number] [address] Rh Nom (Bld) Positive Normal [facility] Comment on above: Order Comment: Speci men Type: BLOOD SPECIMEN Performed By: #### T SCR #### [facility] CLIA [id number] [address] TYPE AND SCREEN EXPIRATION 05/14/2021 23:59 Normal [facility] Comment on above: Order Comment: Speci men Type: BLOOD SPECIMEN Performed By: #### T SCR #### [facility] CLIA [id number] [address] OF [facility] aPTT PPPon 05-11-2021 aPTT Coag (PPP) [Time] 27.1 s Normal 23.0-32.4 [facility] Comment on above: Order Comment: Speci men Type: BLOOD SPECIMEN Performed By: #### 3 4528-0, 59138-4 ####[facility]ORYCLIA [id number] [place] [id number] [facility] Vital Signs Date Time Vital Sign Value Performing Clinician Facility 09-23-2024 09:12-0400 Body mass index (BMI) [Ratio] 31.68 kg/m2 Silvia Vazquez APRN.TAPE RECORDER REPAIRER Work Phone: [facility] 09-23-2024 09:12-0400 Body weight 76.4 kg Silvia Vazquez APRN.TAPE RECORDER REPAIRER Work Phone: [facility] 09-23-2024 09:12-0400 Diastolic blood pressure 70 mm[Hg] Silvia Vazquez SKIN THERAPIST.TAPE RECORDER REPAIRER Work Phone: [facility] 09-23-2024 09:12-0400 Heart rate 85 /min Silvia Vazquez APRN.TAPE RECORDER REPAIRER Work Phone: [facility] 09-23-2024 09:12-0400 Respiratory rate 16 /min Silvia Vazquez SKIN THERAPIST.TAPE RECORDER REPAIRER Work Phone: [facility] 09-23-2024 09:12-0400 SaO2% (BldA) [Mass fraction] 96 % Silvia Vazquez SKIN THERAPIST.TAPE RECORDER REPAIRER Work Phone: [facility] 09-23-2024 09:12-0400 Systolic blood pressure 110 mm[Hg] Silvia Vazquez APRN.TAPE RECORDER REPAIRER Work Phone: [facility] 06-17-2024 09:52-0500 Body height 155.3 cm Silvia Vazquez APRN.TAPE RECORDER REPAIRER Work Phone: [facility] 06-17-2024 09:52-0500 Body mass index (BMI) [Ratio] 32.59 kg/m2 Silvia Tannhof SKIN THERAPIST.TAPE RECORDER REPAIRER Work Phone: [facility] 06-17-2024 09:52-0500 Body weight 78.6 kg Silvia Tannhof SKIN THERAPIST.TAPE RECORDER REPAIRER Work Phone: [facility] 06-17-2024 09:52-0500 Diastolic blood pressure 70 mm[Hg] Silvia Tannhof SKIN THERAPIST.TAPE RECORDER REPAIRER Work Phone: [facility] 06-17-2024 09:52-0500 Heart rate 87 /min Silvia Tannhof SKIN THERAPIST.TAPE RECORDER REPAIRER Work Phone: [facility] 06-17-2024 09:52-0500 Respiratory rate 16 /min Silvia Tannhof SKIN THERAPIST.TAPE RECORDER REPAIRER Work Phone: [facility] 06-17-2024 09:52-0500 SaO2% (BldA) [Mass fraction] 98 % Silvia Tannhof SKIN THERAPIST.TAPE RECORDER REPAIRER Work Phone: [facility] 06-17-2024 09:52-0500 Systolic blood pressure 100 mm[Hg] Silvia Tannhof SKIN THERAPIST.TAPE RECORDER REPAIRER Work Phone: [facility] 04-29-2023 10:38-0400 Body height 153.3 cm Silvia Tannhof SKIN THERAPIST.TAPE RECORDER REPAIRER Work Phone: [facility] 04-29-2023 10:38-0400 Body weight 79.38 kg Silvia Tannhof SKIN THERAPIST.TAPE RECORDER REPAIRER Work Phone: [facility] 04-29-2023 10:38-0400 Diastolic blood pressure 70 mm[Hg] Silvia Tannhof SKIN THERAPIST.TAPE RECORDER REPAIRER Work Phone: [facility] 04-29-2023 10:38-0400 Heart rate 105 /min Silvia Tannhof SKIN THERAPIST.TAPE RECORDER REPAIRER Work Phone: [facility] 04-29-2023 10:38-0400 Respiratory rate 16 /min Silvia Tannhof SKIN THERAPIST.TAPE RECORDER REPAIRER Work Phone: [facility] 04-29-2023 10:38-0400 SaO2% (BldA) [Mass fraction] 97 % Silvia Vazquez SKIN THERAPIST.TAPE RECORDER REPAIRER Work Phone: [facility] 04-29-2023 10:38-0400 Systolic blood pressure 100 mm[Hg] Silvia Vazquez SKIN THERAPIST.TAPE RECORDER REPAIRER Work Phone: [facility] 04-22-2023 11:54-0400 Body temperature 97.39 [degF] Spencer John SKIN THERAPIST.TAPE RECORDER REPAIRER Work Phone: [facility] 04-22-2023 11:54-0400 Body weight 79.83 kg Spencer John SKIN THERAPIST.TAPE RECORDER REPAIRER Work Phone: [facility] 04-22-2023 11:54-0400 Diastolic blood pressure 80 mm[Hg] Spencer John SKIN THERAPIST.TAPE RECORDER REPAIRER Work Phone: [facility] 04-22-2023 11:54-0400 Heart rate 88 /min Spencer John SKIN THERAPIST.TAPE RECORDER REPAIRER Work Phone: [facility] 04-22-2023 11:54-0400 Respiratory rate 16 /min Spencer John SKIN THERAPIST.TAPE RECORDER REPAIRER Work Phone: [facility] 04-22-2023 11:54-0400 SaO2% (BldA) [Mass fraction] 97 % Spencer John SKIN THERAPIST.TAPE RECORDER REPAIRER Work Phone: [facility] 04-22-2023 11:54-0400 Systolic blood pressure 138 mm[Hg] Spencer John SKIN THERAPIST.TAPE RECORDER REPAIRER Work Phone: [facility] 04-19-2023 20:21-0400 Body temperature 96.3 [degF] Dr. Deirdre Quiñones Work Phone: [facility] 04-19-2023 20:21-0400 Diastolic blood pressure 65 mm[Hg] Dr. Deirdre Quiñones Work Phone: [facility] 04-19-2023 20:21-0400 Heart rate 107 /min Dr. Deirdre Quiñones Work Phone: [facility] 04-19-2023 20:21-0400 Respiratory rate 18 /min Dr. Deirdre Quiñones Work Phone: [facility] 04-19-2023 20:21-0400 SaO2% (BldA) [Mass fraction] 98 % Dr. Deirdre Quiñones Work Phone: [facility] 04-19-2023 20:21-0400 Systolic blood pressure 102 mm[Hg] Dr. Deirdre Quiñones Work Phone: [facility] 04-19-2023 20:16-0400 Body height 157.[address] Deirdre Quiñones Work Phone: [facility] 04-19-2023 20:16-0400 Body mass index (BMI) [Ratio] 31.7 kg/m2 Dr. Deirdre Quiñones Work Phone: [facility] 04-19-2023 20:16-0400 Body weight 78.[address] Deirdre Quiñones Work Phone: [facility] 04-19-2023 19:52-0400 Body temperature 97.7 [degF] Maura Mroillo APRN.TAPE RECORDER REPAIRER Work Phone: [facility] 04-19-2023 19:52-0400 Body weight 79.56 kg Maura Morillo APRN.TAPE RECORDER REPAIRER Work Phone: [facility] 04-19-2023 19:52-0400 Diastolic blood pressure 72 mm[Hg] Maura Morillo APRN.TAPE RECORDER REPAIRER Work Phone: [facility] 04-19-2023 19:52-0400 Heart rate 104 /min Maura Morillo APRN.TAPE RECORDER REPAIRER Work Phone: [facility] 04-19-2023 19:52-0400 Respiratory rate 24 /min Maura Morillo APRN.TAPE RECORDER REPAIRER Work Phone: [facility] 04-19-2023 19:52-0400 SaO2% (BldA) [Mass fraction] 98 % Maura Morillo APRN.TAPE RECORDER REPAIRER Work Phone: [facility] 04-19-2023 19:52-0400 Systolic blood pressure 134 mm[Hg] Maura Morillo SKIN THERAPIST.TAPE RECORDER REPAIRER Work Phone: [facility] 02-23-2023 00:03-0400 Diastolic blood pressure 91 mm[Hg] [facility] 02-23-2023 00:03-0400 Heart rate 71 /min [facility] 02-23-2023 00:03-0400 Respiratory rate 18 /min [facility] 02-23-2023 00:03-0400 SaO2% (BldA) [Mass fraction] 99 % [facility] 02-23-2023 00:03-0400 Systolic blood pressure 172 mm[Hg] [facility] 02-22-2023 22:11-0400 Body mass index (BMI) [Ratio] 33.8 kg/m2 [facility] 02-22-2023 22:11-0400 Body weight 83.9 kg [facility] 02-22-2023 21:06-0400 Body height 157.48 cm [facility] 02-22-2023 21:06-0400 Body temperature 97.8 [degF] [facility] 11-22-2022 08:26-0400 Body temperature 95.3 [degF] [facility] 11-22-2022 08:26-0400 Diastolic blood pressure 93 mm[Hg] [facility] 11-22-2022 08:26-0400 Heart rate 78 /min [facility] 11-22-2022 08:26-0400 Respiratory rate 16 /min [facility] 11-22-2022 08:26-0400 SaO2% (BldA) [Mass fraction] 99 % [facility] 11-22-2022 08:26-0400 Systolic blood pressure 145 mm[Hg] [facility] 06-27-2022 09:12-0500 Body weight 80.74 kg Silvia Vazquez SKIN THERAPIST.TAPE RECORDER REPAIRER Work Phone: [facility] 06-27-2022 09:12-0500 Diastolic blood pressure 98 mm[Hg] Silvia Vazquez SKIN THERAPIST.TAPE RECORDER REPAIRER Work Phone: [facility] 06-27-2022 09:12-0500 Heart rate 92 /min Silvia Goodwinhof SKIN THERAPIST.TAPE RECORDER REPAIRER Work Phone: [facility] 06-27-2022 09:12-0500 Respiratory rate 20 /min Silvia Goodwinhojuan pablo SKIN THERAPIST.TAPE RECORDER REPAIRER Work Phone: [facility] 06-27-2022 09:12-0500 SaO2% (BldA) [Mass fraction] 98 % Silvia Goodwinhof SKIN THERAPIST.TAPE RECORDER REPAIRER Work Phone: [facility] 06-27-2022 09:12-0500 Systolic blood pressure 150 mm[Hg] Silvia Goodwinhojuan pablo SKIN THERAPIST.TAPE RECORDER REPAIRER Work Phone: [facility] 04-05-2022 09:33-0400 Body weight 81.28 kg Deirdre Quiñones MD Work Phone: [facility] 04-05-2022 09:33-0400 Diastolic blood pressure 74 mm[Hg] Deirdre Quiñones MD Work Phone: [facility] 04-05-2022 09:33-0400 Heart rate 68 /min Deirdre Quiñones MD Work Phone: [facility] 04-05-2022 09:33-0400 Respiratory rate 16 /min Deirdre Quiñones MD Work Phone: [facility] 04-05-2022 09:33-0400 Systolic blood pressure 122 mm[Hg] Deirdre Quiñones MD Work Phone: [facility] 11-16-2021 12:45-0400 Body temperature 97.39 [degF] Maura Morillo APRN.TAPE RECORDER REPAIRER Work Phone: [facility] 11-16-2021 12:45-0400 Body weight 82.1 kg Maura Morillo APRN.TAPE RECORDER REPAIRER Work Phone: [facility] 11-16-2021 12:45-0400 Diastolic blood pressure 74 mm[Hg] Maura Morillo APRN.TAPE RECORDER REPAIRER Work Phone: [facility] 11-16-2021 12:45-0400 Heart rate 85 /min Maura Morillo APRN.TAPE RECORDER REPAIRER Work Phone: [facility] 11-16-2021 12:45-0400 Respiratory rate 21 /min Maura Morillo APRN.TAPE RECORDER REPAIRER Work Phone: [facility] 11-16-2021 12:45-0400 SaO2% (BldA) [Mass fraction] 97 % Maura Morillo APRN.TAPE RECORDER REPAIRER Work Phone: [facility] 11-16-2021 12:45-0400 Systolic blood pressure 124 mm[Hg] Muara Morillo APRN.TAPE RECORDER REPAIRER Work Phone: [facility] 09-26-2021 10:16-0400 Body height 157.5 cm Deirdre Quiñones MD Work Phone: [facility] 09-26-2021 10:16-0400 Body weight 81.92 kg Deirdre Quiñones MD Work Phone: [facility] 09-26-2021 10:16-0400 Diastolic blood pressure 70 mm[Hg] Deirdre Quiñones MD Work Phone: [facility] 09-26-2021 10:16-0400 Heart rate 66 /min Deirdre Quiñones MD Work Phone: [facility] 09-26-2021 10:16-0400 Respiratory rate 16 /min Deirdre Quiñones MD Work Phone: [facility] 09-26-2021 10:16-0400 Systolic blood pressure 124 mm[Hg] Deirdre Quiñones MD Work Phone: [facility] Encounters Encounter Date Encounter Type Care Provider Facility Start: 03-12-2025 End: 03-12-2025 Refill Deirdre Quiñones MD Work Phone: [facility] Comment on above: Refill Request Start: 01-19-2025 End: 01-19-2025 Refill Deirdre Quiñones MD Work Phone: [facility] [place] Comment on above: Refill Request Start: 12-09-2024 End: 12-09-2024 ambulatory Denise Edward RN [employer] Comment on above: Nurse Care Coordinat or Outreach Start: 12-09-2024 End: 12-09-2024 E-mail encounter from caregiver Denise Edward RN [employer] Start: 12-03-2024 End: 12-03-2024 ambulatory Deirdre Quiñones MD Work Phone: [facility] Start: 12-01-2024 End: 12-01-2024 Telephone encounter Deirdre Quiñones MD Work Phone: [facility] [place] Comment on above: Insurance Authorizat ion Start: 11-29-2024 End: 12-01-2024 Refill Jay Saravanan SKIN THERAPIST.TAPE RECORDER REPAIRER Work Phone: [facility] [place] Comment on above: Refill Request Start: 11-20-2024 End: 11-20-2024 ambulatory Denise Edward RN [employer] Comment on above: Nurse Care Coordinat or Outreach Start: 11-20-2024 End: 11-20-2024 E-mail encounter from caregiver Denise Ewdard RN [employer] Start: 11-06-2024 End: 11-06-2024 ambulatory Denise Edward RN [employer] Comment on above: Nurse Care Coordinat or Outreach Start: 11-06-2024 End: 11-06-2024 E-mail encounter from caregiver Denise Edward RN [employer] Start: 10-23-2024 End: 10-23-2024 ambulatory Denise Edward RN [employer] Comment on above: Bi-Weekly Outreach ( Recurring) for Chronic Disease Management Start: 10-19-2024 End: 10-19-2024 Refill Jay Saravanan SKIN THERAPIST.TAPE RECORDER REPAIRER Work Phone: [facility] [place] Comment on above: Refill Request Start: 10-14-2024 End: 11-11-2024 Telephone encounter [facility] Comment on above: New Primary Care Pha rmacy Appt. Start: 10-13-2024 End: 10-13-2024 ambulatory Mesfin Callahan [facility] Work Phone: Pharmacy Medicine Start: 10-13-2024 End: 10-13-2024 Coordination of care plan Mesfinsarah Callahan [facility] Work Phone: Pharmacy Medicine Comment on above: Care Coordination (R eferred to Pharmacy for Diabetes Management) Start: 10-12-2024 End: 10-12-2024 ambulatory Denise Edward RN [employer] Comment on above: Nurse Care Coordinat or Outreach Start: 10-12-2024 End: 10-12-2024 E-mail encounter from caregiver Denise Edward RN [employer] Start: 09-25-2024 End: 09-25-2024 Refill Deirdre Quiñones MD Work Phone: Family [facility] [place] Comment on above: Refill Request Nurse Care Coordinat or Outreach Start: 09-24-2024 End: 09-24-2024 ambulatory Scarlett Stone MA [employer] [facility] Start: 09-24-2024 End: 09-24-2024 Patient encounter procedure Scarlett Stone MA [facility] Comment on above: Population Health Na vigation Outreach (jackelin dhaliwal) Start: 09-23-2024 End: 09-23-2024 Office outpatient visit 25 minutes Silvia Vazquez APRN.CNP Work Phone: [facility] Comment on above: Type 2 diabetes radha itus without complication, without long- term current use of insulin (HCC) (Primary Dx); Sciatica, right side; Hypothyroidism, unspecified type; Anxiety state; Asthma due to seasonal allergies; Mixed hyperlipidemia; Smoking Start: 09-23-2024 End: 09-23-2024 ambulatory [facility] Facility:[facility] Start: 09-21-2024 End: 09-21-2024 ambulatory [facility] Facility:[facility] Start: 09-11-2024 End: 09-11-2024 ambulatory Denise Edward RN [employer] Comment on above: CDM (Enrollment outr each) Initial enrollment outreach for Chronic Disease Management Start: 08-21-2024 End: 08-21-2024 ambulatory Bonnie Tucker MA [employer] [facility] Start: 08-21-2024 End: 08-21-2024 Patient encounter procedure Bonnie Tucker MA [facility] Comment on above: Population Health Na vigation Outreach ([employer] High Risk - Attempt 1) Start: 07-21-2024 End: 07-22-2024 Refill Deirdre Quiñones MD Work Phone: [facility] [place] Comment on above: Refill Request Start: 06-17-2024 End: 06-17-2024 ambulatory SILVIA YOUSIFE TAYLOR Facility:[facility] Start: 06-17-2024 End: 06-17-2024 Patient encounter procedure Silvia Vazquez APRN.TAPE RECORDER REPAIRER Work Phone: [facility] [place] Comment on above: Medicare annual well ness visit, subsequent (Primary Dx); Sciatica, right side; Acute pain of left knee; Type 2 diabetes mellitus without complication, without long-term current use of insulin (HCC); Hypothyroidism, unspecified type; Asthma due to seasonal allergies; Anxiety state; Smoking; Screening for depression Start: 06-16-2024 End: 06-16-2024 ambulatory DEIRDRE QUIÑONES Facility:[facility] Start: 05-18-2024 End: 05-18-2024 Refill Jay Tran APRN.TAPE RECORDER REPAIRER Work Phone: [facility] [place] Comment on above: Refill Request Start: 04-24-2024 End: 04-24-2024 Refill Deirdre Quiñones MD Work Phone: [facility] [place] Comment on above: Refill Request Start: 04-20-2024 End: 04-20-2024 Refill Silvia Vazquez APRN.TAPE RECORDER REPAIRER Work Phone: [facility] [place] Comment on above: Refill Request Start: 01-17-2024 Refill Deirdre stephen MD Work Phone: [facility] [place] Comment on above: Refill Request Start: 10-22-2023 Refill Jay BOGGS RN.TAPE RECORDER REPAIRER Work Phone: [facility] [place] Comment on above: Refill Request Start: 04-29-2023 End: 04-29-2023 Patient encounter procedure Silvia Vazquez APRN.TAPE RECORDER REPAIRER Work Phone: [facility] Comment on above: Medicare annual well ness visit, initial (Primary Dx); Type 2 diabetes mellitus without complication, without long-term current use of insulin (HCC); Hypertension, unspecified type; Mixed hyperlipidemia; Anxiety state; Hypothyroidism, unspecified type; History of COVID-19 Start: 04-24-2023 Refill Deirdre stephen MD Work Phone: [facility] Comment on above: Refill Request Start: 04-22-2023 End: 04-22-2023 Patient encounter procedure Spencer Lopez APRN.TAPE RECORDER REPAIRER Work Phone: [facility] Comment on above: Closed fracture of o ne rib of left side, initial encounter (Primary Dx); Rib injury Start: 04-22-2023 End: 04-22-2023 Subsequent hospital visit by physician [facility] Work Phone: Radiology Comment on above: Rib injury [S29.9XXA ] Start: 04-19-2023 End: 04-19-2023 Emergency department patient visit Dr. Deirdre Quiñones Work Phone: [facility] Work Phone: Start: 04-19-2023 End: 04-19-2023 Patient encounter procedure Maura Morillo APRN.TAPE RECORDER REPAIRER Work Phone: [facility] Comment on above: Chest tightness (Helene josie Dx) Start: 04-19-2023 ambulatory Yolis Camarillo RN [facility] Start: 04-19-2023 Follow-up encounter Yolis meléndez RN [facility] Comment on above: Covid Positive; Foll ow Up For Start: 04-19-2023 Refill Jay BOGGS RN.TAPE RECORDER REPAIRER Work Phone: [facility] Comment on above: Refill Request Start: 04-18-2023 Telephone encounter Deirdre coulter MD Work Phone: [facility] Comment on above: Patient Update Start: 03-06-2023 End: 03-06-[address] Deirdre Quiñones Work Phone: [facility] Work Phone: Start: 02-22-2023 End: 02-23-2023 Emergency department patient visit Deirdre Radhadeangelo Facility:[facility] Start: 02-22-2023 End: 02-23-2023 Emergency department patient visit [facility] Work Phone: Start: 02-05-2023 ambulatory [facility] Blanca (Ps s) [facility] [employer] [facility] Comment on above: Population Health Na vigation Outreach ([employer] Low [facility]) Start: 01-21-2023 Refill Deirdre stephen MD Work Phone: [facility] [place] Comment on above: Refill Request Start: 01-21-2023 Refill Silvia Vazquez APRN.TAPE RECORDER REPAIRER Work Phone: [facility] [place] Comment on above: Refill Request Start: 12-11-2022 ambulatory Sheree Blanca (Ps s) [facility] [employer] [facility] Comment on above: Population Health Na vigation Outreach ([employer] [facility]) Start: 12-04-2022 Telephone encounter Deirdre coulter MD Work Phone: [facility] [place] Comment on above: Medication Problem Start: 11-22-2022 End: 11-22-2022 Subsequent hospital visit by physician [facility] Work Phone: Radiology Comment on above: Acute hip pain, righ t [M25.551] Start: 11-22-2022 End: 11-22-2022 Emergency department patient visit Say Mauricio Facility:[facility] Start: 11-22-2022 End: 11-22-2022 Emergency department patient visit [facility] Work Phone: Start: 11-02-2022 Refill Jay BOGGS RN.TAPE RECORDER REPAIRER Work Phone: [facility] [place] Comment on above: Refill Request Start: 10-21-2022 Refill Deirdre stephen MD Work Phone: [facility] [place] Comment on above: Refill Request Start: 10-21-2022 Refill Jay BOGGS RN.TAPE RECORDER REPAIRER Work Phone: [facility] Comment on above: Refill Request Start: 10-04-2022 Telephone encounter Deirdre coulter MD Work Phone: [facility] Comment on above: Trulicity PA Start: 09-25-2022 Refill Jay BOGGS RN.TAPE RECORDER REPAIRER Work Phone: [facility] Comment on above: Refill Request Start: 09-24-2022 Telephone encounter Deirdre coulter MD Work Phone: [facility] Comment on above: handicap placard req uest Start: 09-17-2022 Refill Jay BOGGS RN.TAPE RECORDER REPAIRER Work Phone: [facility] Comment on above: Refill Request Start: 08-30-2022 Refill Silvia Vazquez APRN.TAPE RECORDER REPAIRER Work Phone: [facility] [place] Comment on above: Refill Request Start: 08-16-2022 Telephone encounter Deirdre coulter MD Work Phone: [facility] Comment on above: Results; Patient Upd ate; Patient Question Start: 08-15-2022 End: 08-15-2022 ambulatory [facility] Start: 08-11-2022 End: 08-11-2022 ambulatory [facility] Facility:[facility] Start: 08-01-2022 Telephone encounter Deirdre coulter MD Work Phone: [facility] Comment on above: Insurance Authorizat ion (Trulicity ) Start: 07-26-2022 Refill Deirdre stephen MD Work Phone: [facility] Comment on above: Refill Request Start: 07-23-2022 End: 07-23-2022 Refill Deirdre Quiñones MD Work Phone: [facility] Comment on above: Refill Request Start: 07-05-2022 End: 07-05-2022 Subsequent hospital visit by physician [facility] [place] Work Phone: Radiology Comment on above: Hip pain [M25.559] Start: 07-04-2022 Telephone encounter Deirdre coulter MD Work Phone: [facility] [place] Comment on above: Patient Update Start: 06-27-2022 End: 06-27-2022 Patient encounter procedure Silvia Taylor LEUNG.TAPE RECORDER REPAIRER Work Phone: [facility] [place] Comment on above: Sciatica, right side (Primary Dx) Start: 06-20-2022 Refill Deirdre stephen MD Work Phone: [facility] [place] Comment on above: Refill Request Start: 06-02-2022 Refill Jay BOGGS RN.[facility] Work Phone: [facility] [place] Comment on above: Refill Request Start: 05-21-2022 Refill Deirdre stephen MD Work Phone: [facility] [place] Comment on above: Refill Request Start: 05-03-2022 Refill Deirdre stephen MD Work Phone: [facility] [place] Comment on above: Refill Request Trulicity Start: 04-21-2022 Refill Jay BOGGS RN.[facility] Work Phone: [facility] [place] Comment on above: Refill Request Start: 04-19-2022 Refill Jay BOGGS RN.[facility] Work Phone: [facility] [place] Comment on above: Refill Request Start: 04-05-2022 End: 04-05-2022 Patient encounter procedure Deirdre Quiñones MD Work Phone: [facility] [place] Comment on above: Uncontrolled type 2 diabetes mellitus with hyperglycemia (HCC) (Primary Dx); Mixed hyperlipidemia; Hypertension, unspecified type; Anxiety state; Fall, initial encounter; Hypothyroidism, unspecified type; Arthritis of both hands Start: 03-23-2022 Refill Deirdre stephen MD Work Phone: [facility] [place] Comment on above: Refill Request Start: 03-20-2022 Refill Jay Saravanan AP RN.TAPE RECORDER REPAIRER Work Phone: [facility] [place] Comment on above: Refill Request Start: 01-17-2022 Refill Deirdre stephen MD Work Phone: [facility] [place] Comment on above: Refill Request Start: 12-11-2021 Telephone encounter Silvia gaston APRN.TAPE RECORDER REPAIRER Work Phone: [facility] [place] Comment on above: Results Start: 11-24-2021 Telephone encounter Sami Sales MD Work Phone: [facility] [place] Comment on above: Medication Problem Start: 11-23-2021 Telephone encounter Sami Sales MD Work Phone: [facility] [place] Comment on above: Results Start: 11-23-2021 End: 11-23-2021 Subsequent hospital visit by physician Maranda [facility] [place] Work Phone: Radiology Comment on above: Viral URI with cough [J06.9] Start: 11-16-2021 End: 11-16-2021 Patient encounter procedure Maura Morillo APRN.TAPE RECORDER REPAIRER Work Phone: [facility] Comment on above: Congestion of nasal sinus (Primary Dx) Start: 11-14-2021 Telephone encounter Deirdre coulter MD Work Phone: [facility] [place] Comment on above: Patient Question; Pa tient Update Start: 10-20-2021 Refill Deirdre stephen MD Work Phone: [facility] [place] Comment on above: Refill Request Start: 09-29-2021 Telephone encounter Deirdre coulter MD Work Phone: [facility] [place] Comment on above: Results Start: 09-26-2021 End: 09-26-2021 Patient encounter procedure Deirdre Quiñones MD Work Phone: [facility] [place] Comment on above: Type 2 diabetes [...] 06-17-2024 Adult depression screening assessment Silvia Vazquez APRN.TAPE RECORDER REPAIRER Work Phone: Start: 04-22-2023 Radex ribs uni w/posteroant ch minimum 3 views Spencer Lopez SKIN THERAPIST.TAPE RECORDER REPAIRER Work Phone: Start: 02-22-2023 Plain x-ray of pelvi s and lower extremity Start: 11-22-2022 Radex hip unilateral with pelvis 2-3 views David Alexis MD Work Phone: Start: 07-05-2022 Radex hips bilateral with pelvis minimum 5 views Silvia Vazquez SKIN THERAPIST.TAPE RECORDER REPAIRER Work Phone: Start: 11-23-2021 Radiologic exam ches t 2 views Tahir Sales MD Work Phone: Start: 09-26-2021 Adult depression screening assessment Deirdre Quiñones MD Work Phone: Start: 05-11-2021 Antibody screen Comment on above: Order Comment: Speci men Type: BLOOD SPECIMEN Performed By: #### T SCR #### [facility] CLIA [id number] [address] Plan of Treatment Date Care Activity Detail Author Start: 02-09-2035 Urine microalbumin profile DTaP,Tdap,Td Vaccine (3 - Td or Tdap) [facility] Start: 09-23-2025 Annual PCP Team Molding Fitter gilson Disease Visit Annual PCP Team Chronic Disease Visit [facility] Start: 09-23-2025 BP Controlled (<130/80) BP Controlle d (<130/80) [facility] Start: 09-21-2025 Glaucoma screening Dilated Retinal E xam [facility] Start: 06-17-2025 Annual PCP Team Molding Fitter gilson Disease Visit Annual PCP Team Chronic Disease Visit [facility] Start: 06-17-2025 BP Controlled (<130/80) BP Controlle d (<130/80) [facility] Start: 06-17-2025 Depression Screening Depression Scre ening [facility] Start: 06-16-2025 Hepatitis B surface antibody level LDL Cholesterol [facility] Start: 03-08-2025 Influenza vaccination Influenza Vacc ine (#1) [facility] Start: 12-24-2024 End: 03-25-2025 Comprehensive metabolic 2000 panel - Serum or Plasma COMPREHENSIVE METABOLIC PANEL Lab Routine Mixed hyperlipidemia Expected: 12/24/2024, Expires: 03/25/[address] [facility] Comment on above: Expected: 12/24/2024 , Expires: 03/25/2025 Start: 12-24-2024 End: 03-25-2025 Hemoglobin A1c in Blood HEMOGLOBIN A1C Lab Routine Type 2 diabetes mellitus without complication, without long-term current use of insulin (HCC) Expected: 12/24/2024, Expires: 03/25/2025 [facility] Work Phone: Comment on above: Expected: 12/24/2024 , Expires: 03/25/2025 Start: 12-24-2024 End: 03-25-2025 Lipid 1996 panel - Serum or Plasma LIPID PANEL, FASTING Lab Routine Mixed hyperlipidemia Expected: 12/24/2024, Expires: 03/25/[address] [facility] Comment on above: Expected: 12/24/2024 , Expires: 03/25/2025 Start: 12-22-2024 Hemoglobin A1c measurement HbA1C [facility] Start: 09-23-2024 End: 09-23-2024 Patient encounter procedure [facility] Comment on above: 3 month follow up 3 month follow up / UACR due Start: 09-15-2024 End: 12-15-2024 Comprehensive metabolic 2000 panel - Serum or Plasma COMPREHENSIVE METABOLIC PANEL Lab Routine Type 2 diabetes mellitus without complication, without long-term current use of insulin (HCC) Expected: 09/15/2024, Expires: 12/15/2024 [facility] Work Phone: Comment on above: Expected: 09/15/2024 , Expires: 12/15/2024 Start: 09-15-2024 End: 12-15-2024 Hemoglobin A1c in Blood HEMOGLOBIN A1C Lab Routine Type 2 diabetes mellitus without complication, without long-term current use of insulin (HCC) Expected: 09/15/2024, Expires: 12/15/[address] [facility] Comment on above: Expected: 09/15/2024 , Expires: 12/15/2024 Start: 09-14-2024 Hemoglobin A1c measurement HbA1C [facility] Start: 07-08-2024 Advance Directive Discussion Advance Directive Discussion [facility] Start: 07-08-2024 Medicare Advantage Annual Wellness Visit Medicare Advantage Annual Wellness Visit [facility] Start: 06-08-2024 End: 06-08-2024 Patient encounter procedure 06/08/2024 10:40 AM EST Office Visit [facility] [address] [facility] [place] [id number] Silvia Vazquez, SKIN THERAPIST.TAPE RECORDER REPAIRER [address] [facility] [place] [id number] [facility]are [facility] Comment on above: medicare [facility] Start: 05-25-2024 Covid-19 Vaccine () Covid-19 Vaccine () [facility] Start: 05-18-2024 End: 08-17-2024 CBC W Auto Differential panel - Blood COMPLETE BLOOD COUNT AND DIFFERENTIAL Lab Routine Hypertension, unspecified type Hypothyroidism, unspecified type Expected: 05/18/2024, Expires: 08/17/[address] [facility] Comment on above: Expected: 05/18/2024 , Expires: 08/17/2024 Start: 05-18-2024 End: 08-17-2024 Comprehensive metabolic 2000 panel - Serum or Plasma COMPREHENSIVE METABOLIC PANEL Lab Routine Type 2 diabetes mellitus without complication, without long-term current use of insulin (HCC) Mixed hyperlipidemia Expected: 05/18/2024, Expires: 08/17/[address] [facility] Comment on above: Expected: 05/18/2024 , Expires: 08/17/2024 Start: 05-18-2024 End: 08-17-2024 Hemoglobin A1c in Blood HEMOGLOBIN A1C Lab Routine Type 2 diabetes mellitus without complication, without long-term current use of insulin (HCC) Expected: 05/18/2024, Expires: 08/17/[address] [facility] Comment on above: Expected: 05/18/2024 , Expires: 08/17/2024 Start: 05-18-2024 End: 08-17-2024 Lipid 1996 panel - Serum or Plasma LIPID PANEL BASIC Lab Routine Type 2 diabetes mellitus without complication, without long-term current use of insulin (HCC) Mixed hyperlipidemia Expected: 05/18/2024, Expires: 08/17/[address] [facility] Comment on above: Expected: 05/18/2024 , Expires: 08/17/2024 Start: 05-18-2024 End: 08-17-2024 TSH W/REFLEX FT4 TSH W/REFLEX FT4 Lab Routine Hypothyroidism, unspecified type Expected: 05/18/2024, Expires: 08/17/2024 [facility] Work Phone: Comment on above: Expected: 05/18/2024 , Expires: 08/17/2024 Start: 04-29-2024 Annual PCP Team Molding Fitter gilson Disease Visit Annual PCP Team Chronic Disease Visit [facility] Start: 04-29-2024 BP Controlled (<130/80) BP Controlle d (<130/80) [facility] Start: 04-10-2024 Annual PCP Team Molding Fitter gilson Disease Visit Annual PCP Team Chronic Disease Visit [facility] Start: 03-08-2024 Covid-19 Vaccine ( season) Covid-19 Vaccine () [facility] Start: 03-08-2024 Covid-19 Vaccine () Covid-19 Vaccine () [facility] Start: 03-08-2024 Influenza vaccination Influenza Vacc ine (#1) [facility] Start: 07-29-2023 Covid-19 Vaccine ( season) Covid-19 Vaccine () [facility] Start: 07-08-2023 Advance Directive Discussion Advance Directive Discussion [facility] Start: 07-08-2023 Behavioral Health Screening Behavioral Health Screening [facility] Start: 06-27-2023 ANNUAL PCP TEAM TAG MARKER GILSON DISEASE VISIT ANNUAL PCP TEAM CHRONIC DISEASE VISIT [facility] Start: 04-30-2023 Glaucoma screening Dilated Retinal E xam [facility] Start: 04-30-2023 Hepatitis C antibody , confirmatory test DILATED RETINAL EXAM [facility] Start: 04-29-2023 End: 07-29-2023 ALBUMIN/CREAT RATIO RND UR ALBUMIN/CREAT RATIO RND UR Lab Routine Type 2 diabetes mellitus without complication, without long-term current use of insulin (HCC) Expected: 04/29/2023, Expires: 07/29/2023 [facility] Work Phone: Comment on above: Expected: 04/29/2023 , Expires: 07/29/2023 Start: 04-29-2023 End: 07-29-2023 Comprehensive metabolic 2000 panel - Serum or Plasma COMP METABOLIC PANEL Lab Routine Type 2 diabetes mellitus without complication, without long-term current use of insulin (HCC) Expected: 04/29/2023, Expires: 07/29/2023 [facility] Work Phone: Comment on above: Expected: 04/29/2023 , Expires: 07/29/2023 Start: 04-29-2023 End: 07-29-2023 Hemoglobin A1c in Blood HGB A1C Lab Routine Type 2 diabetes mellitus without complication, without long-term current use of insulin (HCC) Expected: 04/29/2023, Expires: 07/29/2023 [facility] Work Phone: Comment on above: Expected: 04/29/2023 , Expires: 07/29/2023 Start: 04-29-2023 End: 07-29-2023 Lipid 1996 panel - Serum or Plasma LIPID PANEL BASIC Lab Routine Mixed hyperlipidemia Expected: 04/29/2023, Expires: 07/29/2023 [facility] Work Phone: Comment on above: Expected: 04/29/2023 , Expires: 07/29/2023 Start: 04-19-2023 [facility] Start: 04-05-2023 ANNUAL PCP TEAM TAG MARKER GILSON DISEASE VISIT ANNUAL PCP TEAM CHRONIC DISEASE VISIT [facility] Start: 04-05-2023 BP CONTROLLED (<130/80) BP CONTROLLE D (<130/80) [facility] Start: 04-05-2023 Hepatitis B surface antibody level LDL CHOLESTEROL [facility] Start: 03-08-2023 Influenza vaccination INFLUENZA (#1) [facility] Start: 03-06-2023 Patient referral [facility] Work Phone: Start: 12-11-2022 End: 02-10-2023 ALBUMIN/CREAT RATIO RND UR ALBUMIN/CREAT RATIO RND UR Lab Routine Uncontrolled type 2 diabetes mellitus with hyperglycemia (HCC) Expected: 12/11/2022, Expires: 02/10/2023 [facility] Work Phone: Comment on above: Expected: 12/11/2022 , Expires: 02/10/2023 Start: 12-11-2022 End: 02-10-2023 Comprehensive metabolic 2000 panel - Serum or Plasma COMP METABOLIC PANEL Lab Routine Uncontrolled type 2 diabetes mellitus with hyperglycemia (HCC) Mixed hyperlipidemia Expected: 12/11/2022, Expires: 02/10/2023 [facility] Work Phone: Comment on above: Expected: 12/11/2022 , Expires: 02/10/2023 Start: 12-11-2022 End: 02-10-2023 Hemoglobin A1c in Blood HGB A1C Lab Routine Uncontrolled type 2 diabetes mellitus with hyperglycemia (HCC) Expected: 12/11/2022, Expires: 02/10/2023 [facility] Work Phone: Comment on above: Expected: 12/11/2022 , Expires: 02/10/2023 Start: 12-11-2022 End: 02-10-2023 Lipid 1996 panel - Serum or Plasma LIPID PANEL BASIC Lab Routine Uncontrolled type 2 diabetes mellitus with hyperglycemia (HCC) Mixed hyperlipidemia Expected: 12/11/2022, Expires: 02/10/2023 [facility] Work Phone: Comment on above: Expected: 12/11/2022 , Expires: 02/10/2023 Start: 11-30-2022 COVID-19 VACCINE (6 - Pfizer series) COVID-19 VACCINE (6 - Pfizer series) [facility] Start: 11-23-2022 ANNUAL PCP TEAM TAG MARKER GILSON DISEASE VISIT ANNUAL PCP TEAM CHRONIC DISEASE VISIT [facility] Start: 11-16-2022 BP CONTROLLED (<130/80) BP CONTROLLE D (<130/80) [facility] Start: 11-12-2022 Hemoglobin A1c measurement HbA1C [facility] Start: 05-08-2023 Hemoglobin A1c/Hemoglobin.total in Blood HBA1C [facility] Start: 09-26-2022 Adult depression screening assessment DEPRESSION SCREENING [facility] Start: 09-26-2022 ANNUAL PCP TEAM TAG MARKER GILSON DISEASE VISIT ANNUAL PCP TEAM CHRONIC DISEASE VISIT [facility] Start: 09-26-2022 BP CONTROLLED (<130/80) BP CONTROLLE D (<130/80) [facility] Start: 09-26-2022 Hepatitis B screening URINE AL BUMIN:CREATININE RATIO [facility] Start: 09-26-2022 Hepatitis B surface antibody level LDL CHOLESTEROL [facility] Start: 09-26-2022 [facility]: Postponed from 10/24 (Declined at this time) Start: 07-08-2022 ADVANCE DIRECTIVE DISCUSSION ADVANCE DIRECTIVE DISCUSSION [facility] Start: 07-08-2022 DEPRESSION ASSESSMENT DEPRESSION ASS ESSMENT [facility] Start: 07-05-2022 End: 09-04-2022 Comprehensive metabolic 2000 panel - Serum or Plasma COMP METABOLIC PANEL Lab Routine Mixed hyperlipidemia Uncontrolled type 2 diabetes mellitus with hyperglycemia (HCC) Expected: 07/05/2022 (Approximate), Expires: 09/04/2022 [facility] Work Phone: Comment on above: Expected: 07/05/2022 (Approximate), Expires: 09/04/2022 Start: 07-05-2022 End: 09-04-2022 Hemoglobin A1c in Blood HGB A1C Lab Routine Uncontrolled type 2 diabetes mellitus with hyperglycemia (HCC) Expected: 07/05/2022 (Approximate), Expires: 09/04/2022 [facility] Work Phone: Comment on above: Expected: 07/05/2022 (Approximate), Expires: 09/04/2022 Start: 07-05-2022 Hemoglobin A1c/Hemoglobin.total in Blood HBA1C [facility] Start: 04-16-2022 COVID-19 VACCINE (5 - Booster for Pfizer series) COVID-19 VACCINE (5 - Booster for Pfizer series) [facility] Start: 03-29-2022 End: 05-29-2022 Comprehensive metabolic 2000 panel - Serum or Plasma COMP METABOLIC PANEL Lab Routine Mixed hyperlipidemia Hypertension, unspecified type Type 2 diabetes mellitus without complication, without long-term current use of insulin (HCC) Expected: 03/29/2022 (Approximate), Expires: 05/29/2022 [facility] Work Phone: Comment on above: Expected: 03/29/2022 (Approximate), Expires: 05/29/2022 Start: 03-29-2022 End: 05-29-2022 Hemoglobin A1c/Hemoglobin.total in Blood HGB A1C Lab Routine Type 2 diabetes mellitus without complication, without long-term current use of insulin (HCC) Expected: 03/29/2022 (Approximate), Expires: 05/29/2022 [facility] Work Phone: Comment on above: Expected: 03/29/2022 (Approximate), Expires: 05/29/2022 Start: 03-29-2022 End: 05-29-2022 LIPID PANEL BASIC LIPID PANEL BASIC Lab Routine Mixed hyperlipidemia Hypertension, unspecified type Type 2 diabetes mellitus without complication, without long-term current use of insulin (HCC) Expected: 03/29/2022 (Approximate), Expires: 05/29/2022 [facility] Work Phone: Comment on above: Expected: 03/29/2022 (Approximate), Expires: 05/29/2022 Start: 03-29-2022 End: 05-29-2022 Thyrotropin [Units/volume] in Serum or Plasma TSH BLD Lab Routine Hypothyroidism, unspecified type Expected: 03/29/2022 (Approximate), Expires: 05/29/2022 [facility] Work Phone: Comment on above: Expected: 03/29/2022 (Approximate), Expires: 05/29/2022 Start: 03-08-2022 Influenza vaccination INFLUENZA (#1) [facility] Start: 12-27-2021 Hemoglobin A1c/Hemoglobin.total in Blood HBA1C [facility] Start: 08-09-2021 COVID-19 VACCINE (4 - Booster for Pfizer series) COVID-19 VACCINE (4 - Booster for Pfizer series) [facility] Start: 07-08-2021 DEPRESSION ASSESSMENT DEPRESSION ASS ESSMENT [facility] Start: 08-25-2020 3 comp foot exam completed DIABETIC FOOT EXAM [facility] Start: 08-25-2020 Diabetic foot examination Diabetic Foot Exam [facility] Start: 10-24-2018 RSV Vaccine (1 - 1-d ose 75+ series) RSV Vaccine (1 - 1-dose 75+ series) [facility] Start: 02-26-2017 Urine microalbumin profile [facility] Start: 04-07-2016 Hepatitis C antibody , confirmatory test DILATED RETINAL EXAM [facility] Start: 2003 Hepatitis B Vaccine (1 of 3 - Risk 3-dose series) Hepatitis B Vaccine (1 of 3 - Risk 3-dose series) [facility] Start: 2003 RSV Vaccine (1 - 1-d ose 60+ series) RSV Vaccine (1 - 1-dose 60+ series) [facility] Start: 10-24-1961 BP CONTROLLED (<130/80) BP CONTROLLE D (<130/80) [facility] Start: 10-24-1961 Depression Screening Depression Scre ening [facility] Start: 10-24-1961 HEPATITIS C SCREENING HEPATITIS C SC REENING [facility] Start: 10-24-1961 Spirometry Spirometry [facility] Patient Education [facility] Work Phone: Patient referral [facility] Work Phone: [facility] Immunizations Immunization Date Immunization Notes Care Provider Zane pastor 02-09-2025 influenza, high dose seasonal, preservative-free Deirdre Quiñones MD Work Phone: [facility] 02-09-2025 tetanus toxoid, redu regis diphtheria toxoid, and acellular pertussis vaccine, adsorbed Deirdre Quiñones MD Work Phone: [facility] 03-30-2024 COVID-19 original vaccine, age 12+ yr, monovalent (PFIZER-BIONTCaliber Infosolutions - DAWSON TOP) Silvia Vazquez APRN.TAPE RECORDER REPAIRER Work Phone: [facility] 03-30-2024 influenza (HD-IIV4) vaccine, age 65+ yr, high dose, quadrivalent, PF (FLUZONE HIGH-DOSE) Silvia Vazquez APRN.TAPE RECORDER REPAIRER Work Phone: [facility] 03-30-2024 respiratory syncytia l virus (RSV) vaccine, adjuvanted (AREXVY) Silvia Vazquez SKIN THERAPIST.TAPE RECORDER REPAIRER Work Phone: [facility] 03-30-2024 influenza virus vacc ine, unspecified formulation Deirdre Quiñones MD Work Phone: [facility] 03-29-2023 influenza virus vacc ine, unspecified formulation Deirdre Quiñones MD Work Phone: [facility] 08-02-2022 COVID-19 booster vaccine, age 12+ yr, bivalent (PFIZER-BIONTECH) Deirdre Quiñones MD Work Phone: [facility] 04-02-2022 influenza (aIIV4) vaccine, age 65+ yr, quadrivalent, PF (FLUAD QUADRIVALENT) Deirdre Quiñones MD Work Phone: [facility] 02-19-2022 COVID-19 vaccine, ag e 12+ yr (PFIZER-BIONTECH - DAWSON TOP) Jay Tran SKIN THERAPIST.TAPE RECORDER REPAIRER Work Phone: [facility] 09-07-2020 COVID-19 vaccine, ag e 12+ yr (PFIZER-BIONTECH - PURPLE TOP) Deirdre Quiñones MD Work Phone: [facility] 08-16-2020 COVID-19 vaccine, ag e 12+ yr (PFIZER-BIONTECH - PURPLE TOP) Deirdre Quiñones MD Work Phone: [facility] 04-20-2020 influenza (aIIV4) vaccine, age 65+ yr, quadrivalent, PF (FLUAD QUADRIVALENT) Deirdre Quiñones MD Work Phone: [facility] 04-20-2020 influenza, seasonal, injectable Deirdre Quiñones MD Work Phone: [facility] 04-20-2020 zoster vaccine recombinant Deirdre Quiñones MD Work Phone: [facility] 03-31-2019 influenza, high dose seasonal, preservative-free Deirdre Quiñones MD Work Phone: [facility] 03-25-2019 zoster vaccine recombinant Deirdre Quiñones MD Work Phone: [facility] 04-05-2018 influenza, high dose seasonal, preservative-free Deirdre Quiñones MD Work Phone: [facility] 04-22-2017 influenza, injectabl e, quadrivalent, contains preservative Deirdre Quiñones MD Work Phone: [facility] Work Phone: 04-07-2015 influenza, seasonal, injectable Deirdre Quiñones MD Work Phone: [facility] 03-08-2015 zoster vaccine, live Deirdre fischer MD Work Phone: [facility] 11-10-2014 pneumococcal conjuga te vaccine, 13 valent Deirdre Quiñones MD Work Phone: [facility] 05-13-2014 influenza, seasonal, injectable Deirdre Quiñones MD Work Phone: [facility] 04-08-2013 influenza virus vacc ine, unspecified formulation Deirdre Quiñones MD Work Phone: [facility] 06-20-2010 influenza virus vacc ine, unspecified formulation Deirdre Quiñones MD Work Phone: [facility] 06-20-2010 pneumococcal polysaccharide vaccine, 23 valent Deirdre Quiñones MD Work Phone: [facility] 05-17-2009 novel influenza-H1N1 -09, all formulations Deirdre Quiñones MD Work Phone: [facility] 05-13-2009 influenza virus vacc ine, unspecified formulation Deirdre Quiñones MD Work Phone: [facility] 05-13-2008 influenza virus vacc ine, unspecified formulation Deirdre Quiñones MD Work Phone: [facility] Work Phone: 06-27-2007 influenza virus vacc ine, unspecified formulation Deirdre Quiñones MD Work Phone: [facility] 02-26-2007 tetanus toxoid, redu regis diphtheria toxoid, and acellular pertussis vaccine, adsorbed Deirdre Quiñones MD Work Phone: [facility] Work Phone: 05-24-2006 influenza virus vacc ine, unspecified formulation Deirdre Quiñones MD Work Phone: [facility] Payers Date Payer Category Payer Medicare (Managed Care) [employer] [id number] 2022 Private Health Insurance [id number] 2022 Self-pay [id number] 2021 Medicare HU[employer]NA MEDICARE [employer] GOLD PLUS [id number] 2021-Present [phone] [place] [id number] [facility] [id number] 2021 Medicare [id number] Private Health Insurance [employer] [facility] [id number] Unknown [id number] Unknown [id number] Unknown [id number] Unknown [id number] Unknown [id number] Unknown [id number] Social History Date Type Detail Facility Start: 05-19-2018 End: 06-17-2024 Tobacco smoking status NHIS Smokes tobacco daily [facility] History of tobacco use Cigarette Smoker C [facility] Work Phone: Start: 09-26-2021 End: 09-23-2024 Alcohol intake Current drinker of alcohol (finding) [facility] Start: 09-14-2020 End: 06-26-2022 History SDOH Alcohol Frequency [address] [facility] Start: 09-14-2020 End: 06-26-2022 History SDOH Alcohol Std Drinks [address] [facility] Start: 07-02-2007 History SDOH Alcohol Comment occasionally, 2 mixed drinks per month [facility] Start: 09-14-2020 End: 06-26-2022 History SDOH Social Connections Phone [address] [facility] Start: 09-14-2020 End: 06-26-2022 History SDOH Social Connections Confucianism [address] [facility] Start: 09-14-2020 End: 06-26-2022 History SDOH Financial [address] [facility] Start: 09-14-2020 Education [address] [facility] Start: 05-19-2018 End: 04-05-2022 Tobacco Comment Smoking 3 cigarettes per day [facility] Start: 1945 Sex Assigned At Not on file C [facility] Start: 09-16-2021 End: 04-05-2022 Exposure to SARS-CoV-2 (event) Not sure [facility] Start: 11-22-2021 History SDOH Alcohol Std Drinks [address] [facility] Start: 05-19-2018 End: 04-29-2023 Cigarettes smoked current (pack per day) - Reported 0.[address] [facility] Start: 05-19-2018 End: 06-17-2024 Tobacco use and exposure Smokeless tobacco non-user [facility] Start: 06-26-2022 History SDOH Alcohol Std Drinks [address] [facility] Start: 06-26-2022 End: 04-29-2023 Social connection and isolation panel [facility] Do you belong to any clubs or organizations such as alevism groups, unions, fraternal or athletic groups, or school groups? Yes [facility] Are you now , , , , never or living with a partner? [facility] Start: 06-08-2012 Frequency of Alcohol Consumption Not on file [facility] How often do you hav e 6 or more drinks on 1 occasion? Never [facility] How hard is it for y ou to pay for the very basics like food, housing, medical care, and heating Not very hard [facility] Do you feel stress - tense, restless, nervous, or anxious, or unable to sleep at night because your mind is troubled all the time - these days [OSQ] Only a little [facility] (I/We) worried jocelyne er (my/our) food would run out before (I/we) got money to buy more. Never true [facility] In the past 12 month s, was there a time when you were not able to pay the mortgage or rent on time? No [facility] Start: 02-22-2023 End: 04-19-2023 Tobacco smoking status NHIS Unknown if ever smoked [facility] Start: 1945 Sex Assigned At Female W [facility] How often to you hav e a drink containing alcohol? Monthly or less [facility] Functional Status Date Assessment Result Facility 05-13-2021 Are you deaf, or do you have serious difficulty hearing No 05/13/2021 11:32 AM Dalia Grimes, NURYS No [facility] 05-13-2021 Are you blind, or do you have serious difficulty seeing, even when wearing glasses No 05/13/2021 11:32 AM Dalia Grimes, NURYS No [facility] 05-13-2021 Do you have serious difficulty walking or climbing stairs No 05/13/2021 11:32 AM Dalia Grimes, RN No [facility] 05-13-2021 Do you have difficul ty dressing or bathing No 05/13/2021 11:32 AM Dalia Grimes, RN No [facility] 05-13-2021 Because of a physica l, mental, or emotional condition, do you have difficulty doing errands alone such as visiting a physician's office or shopping No 05/13/2021 11:32 AM EDT Dalia Gallardo RN No [facility] Mental Status Date Assessment Result Facility 05-13-2021 Because of a physica l, mental, or emotional condition, do you have serious difficulty concentrating, remembering, or making decisions No 05/13/2021 11:32 AM EDT Dalia Gallardo RN No [facility] Clinical Notes 05-13-2014 to 03-12-2025 Telephone [...] by mouth once daily. Jay Tran APRN.CNP [facility] 03-12-2025 Miscellaneous Notes The following approved [...] Take 1 tablet by mouth once daily. [facility] March 12, 2025 9:09 AM documented in this encounter [facility] 03-12-2025 Telephone encounter Note Prescription Refill [...] 1 tablet by mouth once daily. [facility] March 12, 2025 9:[address] [facility] 01-19-2025 Telephone encounter Note Approved. [facility] website checked and validated. All prescriptions [...] 90 days. Authorizing Provider: JAY TRAN APRN.CNP [facility] 01-19-2025 Miscellaneous Notes Approved. PDMP website [...] 2025 10:40 AM documented in this encounter [facility] 01-19-2025 Telephone encounter Note Prescription Refill [...] Penny LPN January 19, 2025 10:[address] [facility] 12-03-2024 Note HNO ID: [id number] Author: SILVIA HOGUE CPhT Service: ? Author Type: Smasher Hand Type: Progress Notes Filed: 12/03/2024 13:19 Note Text: Patient is identified through a medication adherence outreach initiative based on pharmacy claims data from: [employer] Medication Adherence Category: Hypertension First Review Attribution [...] Hogue CPhT Value Based Care Pharmacy Team [facility] 12-03-2024 History of Present illness Narrative Patient is identified through a medication adherence outreach initiative based on pharmacy claims data from: [employer] Medication Adherence Category: Hypertension First Review Attribution [...] Care Pharmacy Team documented in this encounter [facility] 12-03-2024 Note Patient Outreach ([facility]) SHEREE CHAVEZ ([id number]) 1945 F Date Time Provider Department 12/03/24 DEIRDRE QUIÑONES During your visit today, we recorded the following information about you: Silvia Hogue CPhT 12/03/2024 1:19 PM Signed Patient is identified through a medication adherence outreach initiative based on pharmacy claims data from: [employer] Medication Adherence Category: Hypertension First Review Attribution [...] primary intervention? No intervention Silvia Hogue CPhT [facility] Pharmacy Team Allergies As of Date: [...] Encounter Status:Closed by SILVIA HOGUE on 12/03/24 [facility] 12-01-2024 Telephone encounter Note Images from the original note were not included. Electronic PA rec'd and completed for ozempic ANNY. This was completed and approved. Prior authorization approved Payer: [employer] PBM Part D [phone] Note from payer: Request Reference Number: [id number]. OZEMPIC INJ 2MG/3ML is approved through 07/07/2025. Your patient may now fill this prescription and it will be covered. Approval Details Authorization number: [id number] Authorized from December 01, 2024 to July [...] to its destination. To be filled at: [id number] [place] [address] - [address] [phone] Pt notified via my chart. [facility] 12-01-2024 Miscellaneous Notes Images from the original note were not included. Electronic PA rec'd and completed for ozempic ANNY. This was completed and approved. Prior authorization approved Payer: [employer] PBM Part D [phone] Note from payer: Request Reference Number: [id number]. OZEMPIC INJ 2MG/3ML is approved through 07/07/2025. Your patient may now fill this prescription and it will be covered. Approval Details Authorization number: [id number] Authorized from December 01, 2024 to July 07, 2025 Electronic appeal: Not supported View History Notes Time User Attachment Attachment received from payer. 12/01/2024 8:31 AM [facility], Rx Priorauth In Document Medication Being [...] to its destination. To be filled at: [id number] [place] [address] - [address] [phone] Pt notified via my chart. documented in this encounter [facility] 12-01-2024 Telephone encounter Note The following approved medication requests have been transmitted electronically. Requested Prescriptions Pending Prescriptions Disp Refills OZEMPIC 0.25 mg or 0.5 mg (2 mg/3 mL) pen 3 mL 2 Sig: Inject 0.5 mg subcutaneously one time a week. Jay Tran APRN.CNP [facility] 12-01-2024 Miscellaneous Notes The following approved [...] 2024 7:57 AM documented in this encounter [facility] 12-01-2024 Telephone encounter Note Prescription Refill [...] Blair LPN December 01, 2024 7:[address] [facility] 11-02-2024 Note HNO ID: [id number] Author: ?, ?, ? Service: ? Author [...] Contacted: Unable or unnecessary to reach patient: i[employer] message sent HCC related Navigation Signature: Suze Reid November 02, 2024 12:12 PM [facility] 11-02-2024 Note Patient Outreach (NE TNAV) SHEREE CHAVEZ ([id number]) 1945 F Date Time Provider Department 11/02/24 DEIRDRE QUIÑONES During your visit today, we recorded the following information about you: Suze Crawford 11/02/2024 12:13 PM Signed POPULATION HEALTH NAVIGATION OUTREACH Action/FYI Patient outreach for HCC gaps; KED. Pt is due for the rest of their KED labs. People and Pages[employer] sent to close gaps. Reason for Outreach Care Gap/HCC or Scheduling Wellness Visits Care Gaps due: KED Patient Contacted: Unable or unnecessary to reach patient: [employer] message sent HCC related Navigation Signature: Suze [...] Encounter Status:Closed by SUZE CRAWFORD on 11/02/24 [facility] 10-23-2024 Note HNO ID: [id number] Author: DENISE EDWARD RN Service: ? Author [...] - Bi-Weekly Outreach (Recurring) Disposition Based on counter clerk tractor parts, the following disposition is advised: No action needed Denise Edward RN October 23, 2024 5:01 PM [facility] 10-23-2024 History of Present illness Narrative [...] - Bi-Weekly Outreach (Recurring) Disposition Based on counter clerk tractor parts, the following disposition is advised: No action needed Denise Edward RN October 23, 2024 5:01 PM documented in this encounter [facility] 10-23-2024 Note Patient Outreach ([facility] SHEREE CHAVEZ ([id number]) 1945 F Date Time Provider Department 10/23/24 [...] - Bi-Weekly Outreach (Recurring) Disposition Based on counter clerk tractor parts, the following disposition is advised: No action [...] 05/19/2018: Takes Multi-vitami (more content not included)... [facility] 10-19-2024 Telephone encounter Note OK to refill as ordered Deirdre Quiñones MD [facility] 10-19-2024 Miscellaneous Notes OK to refill [...] 2024 6:24 PM documented in this encounter [facility] 10-19-2024 Telephone encounter Note The patient [...] Ross RN October 19, 2024 6:[address] [facility] 10-16-2024 Telephone encounter Note Telephoned the patient to schedule a new Primary Care pharmacy appt. Left a message. Made two attempts to contact the patient. Patient was sent Kiip message. If the patient returns a call, an appt will be scheduled. Encounter routed to the clinical pharmacist. [facility] 10-16-2024 Miscellaneous Notes Telephoned the patient to schedule a new Primary Care pharmacy appt. Left a message. Made two attempts to contact the patient. Patient was sent iExploret message. If the patient returns a call, an appt will be scheduled. Encounter routed to the clinical pharmacist. Telephoned the patient to schedule a new Primary Care pharmacy appt. Left a message. documented in this encounter [facility] 10-14-2024 Telephone encounter Note Telephoned the patient to schedule a new Primary Care pharmacy appt. Left a message. [facility] 10-13-2024 History of Present illness Narrative [...] Callahan PharmD, ANAYA documented in this encounter [facility] 10-13-2024 Note HNO ID: [id number] Author: MESFIN CALLAHAN RPh Service: ? Author [...] types. Thank you, Mesfin Callahan PharmD, ANAYA [facility] 10-13-2024 Note Patient Outreach (PM STOW) SHEREE CHAVEZ ([id number]) 1945 F Date Time Provider Department 10/13/24 [...] Fully Assessed Reason for Visit: Care Coordination [5941] Cmt: Referred to Pharmacy for Diabetes Management Primary Visit Diagnosis:Type 2 diabetes mellitus with other specified complication, without long-term current use of insulin (HCC) [E11.69] Order(s):CONSULT TO PHARMACY [929828] Order #: [id number]: 1 Prescriptions as of 10/13/2024 - fluticasone [...] Encounter Status:Closed by MESFIN CALLAHAN on 10/13/24 [facility] 09-25-2024 Telephone encounter Note The following [...] one time a week. Jay Tran APRN.CNP [facility] 09-25-2024 Miscellaneous Notes The following approved [...] that the script that were sent to [facility] pharmacy should have been sent to [facility] and not [facility]. Script pended and correct pharmacy selected. documented in this encounter [facility] 09-25-2024 Telephone encounter Note Patient called stating that the script that were sent to [facility] pharmacy should [facility] been sent to [facility] and not [facility]. Script pended and correct pharmacy selected. [facility] 09-24-2024 Note HNO ID: [id number] Author: SCARLETT STONE MA Service: ? Author Type: Wastewater Process Engineer Type: Progress Notes Filed: 09/24/2024 14:22 Note [...] to reach patient: Unable to leave message Kiip message sent HCC related Navigation Signature: Scarlett Stone MA September 24, 2024 2:20 PM [facility] 09-24-2024 History of Present illness Narrative [...] to reach patient: Unable to leave message Kiip message sent HCC related Navigation Signature: Scarlett Stone MA September 24, 2024 2:20 PM documented in this encounter [facility] 09-24-2024 Note Patient Outreach (NE TNAV) SHEREE CHAVEZ ([id number]) 1945 F Date Time Provider Department 09/24/24 [...] to reach patient: Unable to leave message Kiip message sent HCC related Navigation Signature: Scarlett [...] Encounter Status:Closed by SCARLETT STONE on 09/24/24 [facility] 09-23-2024 Instructions Silvia Vazquez APRN.CNP - 09/23/2024 9:35 AM EDT Get repeat fasting labs completed prior to next visit Increase Ozempic to 0.5 mg once weekly Continue with low carb diet, increase protein and vegetable intake May consider Dora or Dexcom, glucose monitor Follow up in 3 months or sooner as needed documented in this encounter [facility] 09-23-2024 History of Present illness Narrative [...] APRN.MANDY This note was partially generated using [employer] recognition system. Note was reviewed for accuracy. There may be minor misspellings or grammar miscues with [employer] voice recognition. documented in this encounter [facility] 09-23-2024 Note HNO ID: [id number] Author: SILVIA VAZQUEZ APRN.CNP Service: ? Author [...] Cigarettes Smokeless tobacco: (more content not included)... [facility] 09-11-2024 Note HNO ID: [id number] Author: DENISE EDWARD RN Service: ? Author [...] - Initial enrollment outreach Disposition Based on counter clerk tractor parts, the following disposition is advised: No action needed Denise Edward RN September 11, 2024 11:08 AM [facility] 09-11-2024 History of Present illness Narrative [...] has the electric, gas, oil, or water [employer] threatened to shut off services in your home?: No Tobacco Use Patient reports that she has been smoking cigarettes. She has a 7.5 pack-year smoking history. She has never used smokeless tobacco. Interventions The following were addressed during this visit: - Initial enrollment outreach Disposition Based on counter clerk tractor parts, the following disposition is advised: No action needed Denise Edward RN September 11, 2024 11:08 AM documented in this encounter [facility] 09-11-2024 Note Patient Outreach ([facility] SHEREE CHAVEZ ([id number]) 1945 F Date Time Provider Department 09/11/24 DENISE EDWARD [facility] During your visit today, we [...] In the past 12 months has the [employer], gas, oil, or water [employer] threatened to shut off services in your home?: No Tobacco Use Patient reports that she has been smoking cigarettes. She has a 7.5 pack-year smoking history. She has never used smokeless tobacco. Interventions The following were addressed during this visit: - Initial enrollment outreach Disposition Based on counter clerk tractor parts, the following disposition is advised: No action [...] wheezing/shortness of benjie (more content not included)... [facility] 08-26-2024 Note HNO ID: [id number] Author: BONNIE DIOP MA Service: ? Author Type: Wastewater Process Engineer Type: Progress Notes Filed: 08/26/2024 08:25 Note [...] Tucker MA August 26, 2024 8:24 AM [facility] 08-21-2024 Note HNO ID: [id number] Author: BONNIE DIOP MA Service: ? Author Type: Wastewater Process Engineer Type: Progress Notes Filed: 08/21/2024 11:36 Note [...] or unnecessary to reach patient: Left message Kiip message sent Navigation Signature: Bonnie Tucker MA August 21, 2024 11:25 AM [facility] 08-21-2024 History of Present illness Narrative [...] or unnecessary to reach patient: Left message Kiip message sent Navigation Signature: Bonnie Tucker MA August 21, 2024 11:25 AM documented in this encounter [facility] 08-21-2024 Note Patient Outreach (ANTHONY TNAV) SHEREE CHAVEZ ([id number]) 1945 F Date Time Provider Department 08/21/24 [...] HEALTH NAVIGATION OUTREACH Action/FYI Patient replies via Freebasehart - has outside eye exam scheduled. Declines [...] Subdural hematoma ( (more content not included)... [facility] 07-22-2024 Telephone encounter Note Approved. [facility] website checked and validated. All prescriptions have [...] 90 days. Authorizing Provider: JAY TRAN APRN.CNP [facility] 07-22-2024 Miscellaneous Notes Approved. [facility] website checked and validated. All prescriptions have [...] 2024 7:18 AM documented in this encounter [facility] 07-22-2024 Telephone encounter Note Prescription Refill [...] Valentino LPN July 22, 2024 7:[address] [facility] 06-17-2024 Instructions Silvia Vazquez APRN.CNP - [...] review all the medicines you take, even sdeb-sss-nmvreav medicines. As you get older, the way [...] certain medical conditions. documented in this encounter [facility] 06-17-2024 History of Present illness Narrative [...] APRN.CNP This note was partially generated using [employer] voice recognition system. Note was reviewed for accuracy. There may be minor misspellings or grammar miscues with [employer] voice recognition. documented in this encounter [facility] 06-17-2024 Note HNO ID: [id number] Author: SILVIA VAZQUEZ APRN.CNP Service: ? Author [...] daily before benjie (more content not included)... [facility] 05-18-2024 Telephone encounter Note Left message that lab orders are in. Kamille Nova LPN [facility] 05-18-2024 Miscellaneous Notes Left message that [...] mouth once daily. Authorizing Provider: JAY TRAN APRN.TAPE RECORDER REPAIRER Prescription Refill Information The patient has been [...] 2024 11:59 AM documented in this encounter [facility] 05-18-2024 Telephone encounter Note Labs ordered Deirdre Quiñones MD [facility] 05-18-2024 Telephone encounter Note Spoke with pt and her Medicare Wellness apt has been booked for 06/08/24. Pt reports she will be due for fasting lab work. Please advise pt when fasting blood work is in. Orders pended, please review and add or delete. Kamille Nova LPN [facility] 05-18-2024 Telephone encounter Note Patient is due for a yearly visit. 90 days sent in. The following approved medication requests have been transmitted electronically. Requested Prescriptions Signed Prescriptions Disp Refills glimepiride (AMARYL) 4 mg tablet 90 tablet 0 Sig: Take 1 tablet by mouth once daily. Authorizing Provider: JAY TRAN APRN.TAPE RECORDER REPAIRER [facility] 05-18-2024 Telephone encounter Note Prescription Refill [...] Kincaid MA May 18, 2024 11:[address] [facility] 04-24-2024 Telephone encounter Note The patient [...] West LPN April 24, 2024 11:[address] [facility] 04-24-2024 Miscellaneous Notes The patient has [...] 2024 11:04 AM documented in this encounter [facility] 04-20-2024 Telephone encounter Note OK to refill as ordered Deirdre Quiñones MD [facility] 04-20-2024 Miscellaneous Notes OK to refill [...] 2024 1:47 PM documented in this encounter [facility] 04-20-2024 Telephone encounter Note Prescription Refill [...] Blair LPN April 20, 2024 1:[address] [facility] 01-17-2024 Telephone encounter Note The following [...] identified. 01/17/2024 by Silvia Vazquez APRN.MANDY T [facility] 01-17-2024 Miscellaneous Notes The following approved [...] 2024 10:05 AM documented in this encounter [facility] 01-17-2024 Telephone encounter Note Gabapentin and Claritin requested in other refill request. Kourtney Kincaid MA [facility] 01-17-2024 Miscellaneous Notes Gabapentin and Claritin requested in other refill request. Kourtney Kincaid MA documented in this encounter [facility] 01-17-2024 Telephone encounter Note Xanax and lisinopril requested in other refill request. [facility] 01-17-2024 Miscellaneous Notes Xanax and lisinopril requested in other refill request. documented in this encounter [facility] 01-17-2024 Telephone encounter Note Prescription Refill [...] Kincaid MA January 17, 2024 10:[address] [facility] 10-22-2023 Miscellaneous Notes OK to refill as ordered Deirdre Quiñones MD documented in this encounter [facility] 10-22-2023 Miscellaneous Notes OK to refill [...] Kourtney Kincaid MA. documented in this encounter [facility] 04-29-2023 Instructions Silvia Vazquez APRN.MANDY - [...] pending lab results. documented in this encounter [facility] 04-29-2023 History of Present illness Narrative [...] Glaucoma screening - Lipid panel Silvia Vazquez APRN.TAPE RECORDER REPAIRER This is a 77 year old female [...] diet of 1000 mg/day for under 50, 1736-8514 mg/day for 50+ - Discussed need and [...] discussed and patient voices understanding. Silvia Vazquez APRN.TAPE RECORDER REPAIRER This note was partially generated using [employer] voice recognition system. Note was reviewed for accuracy. There may be minor misspellings or grammar miscues with [employer] voice recognition. documented in this encounter [facility] 04-25-2023 Miscellaneous Notes Spoke with pt [...] Tanisha Connors RN. documented in this encounter [facility] 04-22-2023 History of Present illness Narrative [...] 2023 12:16 PM documented in this encounter [facility] 04-22-2023 History of Present illness Narrative [...] rib. Dictated by : MD Spencer NANCE APRN.TAPE RECORDER REPAIRER documented in this encounter [facility] 04-19-2023 History of Present illness Narrative Came in with complaints of chest tightness and shortness of breath. Patient says it is hard to take a deep breath in. Patient recently had COVID. At this time patient is being referred to the emergency room for an evaluation. Patient is okay with this and wants to take her self. documented in this encounter [facility] 04-19-2023 Miscellaneous Notes Reason for Call: Still testing COVID positive, fatigue, sinus congestion, cough Outcome: See PCP within 4 hours. Advised Urgent[facility]. Patient acknowledged understanding and stated she would go to [facility] tonight. Reason for Disposition MILD [...] a thermometer 7. RESPIRATORY STATUS: Hoarseness 8. NAZUOD-[id number]-[id number]:Same as yesterday 9. HIGH RISK DISEASE: Diabetic [...] days. Protocols used: Coronavirus (COVID-19) Diagnosed or [id number] Patient states she has shortness of breath on exertion. documented in this encounter [facility] 04-19-2023 Miscellaneous Notes OK to refill as ordered Deirdre Quiñones MD Last office visit: 04/10/23 F/u scheduled: none Last TSH done in Aug 2022. Kourtney Kincaid Ma documented in this encounter [facility] 04-18-2023 Miscellaneous Notes Message left notifying pt that medication was sent to pharmacy. Kourtney Kincaid Ma OK for Zpak as ordered Deirdre Quiñones MD Patient calls and states that she now thinks that she has a sinus infection. Patient asking if provider can send in a prescription for this? Patient's pharmacy is [facility]. Please review and advise, [place] Armando RN documented in this encounter [facility] 02-05-2023 History of Present illness Narrative POPULATION HEALTH NAVIGATION OUTREACH Action/FYI HCC Gaps Due; E11.65 - Uncontrolled type 2 diabetes mellitus with hyperglycemia (HCC) - [id number] Last Billed 04/05/2022
[employer] Care Gaps Due; Follow Up BP Controlled HGBA1C Urine Albumin Advance Directives Left message and sent My Chart Patient Identified by Name and : NO Outreach Outcome/Action Unable to reach patient: Left message [employer] message sent Did you use a PCP flex slot to schedule this appointment? N/A Reason for Outreach HCC or suspected condition Payer: Payor: HU[employer] MEDICARE / Plan: [employer] / Product Type: HMO / Care Gap [...] 2023 3:49 PM documented in this encounter [facility] 01-22-2023 Miscellaneous Notes Pt notified via Kitchenbug that rx were refilled and she needs [...] Kourtney Kincaid Ma documented in this encounter [facility] 01-22-2023 Miscellaneous Notes The following approved medication requests have been transmitted electronically. Requested Prescriptions Pending Prescriptions Disp Refills loratadine (CLARITIN) 10 mg tablet [Pharmacy Med Name: LORATADINE 10 MG TABLET] 90 tablet 3 Sig: TAKE 1 TABLET BY MOUTH EVERY DAY Jay Tran APRN.CNP Last office visit: 06/27/22 F/u scheduled: none Kourtney Kincaid Ma documented in this encounter [facility] 01-22-2023 Miscellaneous Notes The following approved medication requests have been transmitted electronically. Requested Prescriptions Pending Prescriptions Disp Refills lisinopril (ZESTRIL) 10 mg tablet 90 tablet 3 Sig: Take 1 tablet by mouth once daily. Jay Tran APRN.CNP Last office visit: 06/27/22 F/u scheduled: none documented in this encounter [facility] 12-11-2022 History of Present illness Narrative POPULATION HEALTH NAVIGATION OUTREACH Action/FYI HCC Gaps Due; E11.65 - Uncontrolled type 2 diabetes mellitus with hyperglycemia (HCC) - [id number] Last Billed 04/05/2022
[employer] Care Gaps Due; [...] condition Payer: Payor: [employer] MEDICARE / Plan: [employer] / Product Type: HMO / Care Gap [...] 2022 8:44 AM documented in this encounter [facility] 12-06-2022 Miscellaneous Notes Pt notified. Kourtney [...] pcp, it's always a nurse or a Wardsperson that she has to communicate with and she is thinking about getting a new doctor. Patient is calling in stating that she went to [facility] her trulicity rx and it normally cost $42 and today they wanted $198 for it. patients states that [facility] ([place]) just told her the cost of the medication increased and to call her providers office. documented in this encounter [facility] 11-02-2022 Miscellaneous Notes The following approved medication requests have been transmitted electronically. Requested Prescriptions Pending Prescriptions Disp Refills dulaglutide (TRULICITY) 0.75 mg/0.5 mL pen injector 2 mL 5 Sig: Inject 0.75 mg subcutaneously one time a week. Jay Tran APRN.CNP documented in this encounter [facility] 10-22-2022 Miscellaneous Notes Approved. PDMP website [...] Kourtney Kincaid Ma documented in this encounter [facility] 10-22-2022 Miscellaneous Notes The following approved medication requests have been transmitted electronically. Requested Prescriptions Pending Prescriptions Disp Refills atorvastatin (LIPITOR) 10 mg tablet 90 tablet 3 Sig: Take 1 tablet by mouth once daily. Jay Tran APRN.CNP documented in this encounter [facility] 10-09-2022 Miscellaneous Notes Called [facility] and aware specific NDC code needed, pharmacist advised was figured out an ready for [facility]. Patient was notified Mansi Green Ma [...] [employer] Name: [employer] Medicare Insurance [employer] Phone number: [phone] Patient ID number: [id number] Pharmacy Name: [facility] Telephone number: [phone] documented in this encounter [facility] 09-25-2022 Miscellaneous Notes Letter taken to [...] BMV. Please advise documented in this encounter [facility] 09-17-2022 Miscellaneous Notes OK to refill as ordered Deirdre Quiñones MD documented in this encounter [facility] 08-30-2022 Miscellaneous Notes Spoke with patient. [...] Odalis Valentino LPN documented in this encounter [facility] 08-16-2022 Miscellaneous Notes Patient returned call [...] CMP to Dr Kumar's office fax # [phone] when they have resulted. Marcela Ross RN [...] over later. Fax # for Dr Kumar [phone]. Pt reports Dr Kumar has done an [...] call and advise. documented in this encounter [facility] 08-01-2022 Miscellaneous Notes Received PA for Tuan from [facility] but shows patient picked up today 08/01. Called and spoke to pharmacist at [facility] who verified no PA needed and went through. Mansi Green Ma documented in this encounter [facility] 07-26-2022 Miscellaneous Notes OK to refill as ordered Deirdre Quiñones MD Patient has been identified by name and date of : Yes Patient phones for refill(s): Requested Prescriptions Pending Prescriptions Disp Refills dulaglutide (TRULICITY) 0.75 mg/0.5 mL pen injector 4 Each 3 Date of last office visit in primary care: 04/05/22 Please advise. Thank you. Nirmala Blair LPN documented in this encounter [facility] 07-26-2022 Miscellaneous Notes OK to refill as orderedDeirdre Quiñones MD Sent a Kiip message for pt to come in and [...] Kamille Nova LPN documented in this encounter [facility] 07-23-2022 Miscellaneous Notes Approved PDMP website [...] Kourtney Kincaid Ma documented in this encounter [facility] 07-05-2022 History of Present illness Narrative [...] 2022 9:45 AM documented in this encounter [facility] 07-04-2022 Miscellaneous Notes Pt called and [...] patient. Thank you. documented in this encounter [facility] 06-27-2022 Instructions Silvia Vazquez APRN.MANDY - [...] up as needed. documented in this encounter [facility] 06-27-2022 History of Present illness Narrative [...] APRN.MANDY This note was partially generated using Bridgestream voice recognition system. Note was reviewed for accuracy. There may be minor misspellings or grammar miscues with Bridgestream voice recognition. documented in this encounter [facility] 06-20-2022 Miscellaneous Notes The following approved [...] Lorenza Rivas Pss documented in this encounter [facility] 06-04-2022 Miscellaneous Notes The following approved [...] Steve Penny LPN documented in this encounter [facility] 05-21-2022 Miscellaneous Notes Last refilled on: xanax #60 with 2 refill on 04/23/22 to [facility]. Pt should have refills remaining. Pt notified via Freebase[employer]. Kourtney Kincaid Ma documented in this encounter [facility] 05-04-2022 Miscellaneous Notes The following approved medication requests have been transmitted electronically. Requested Prescriptions Pending Prescriptions Disp Refills dulaglutide (TRULICITY) 0.75 mg/0.5 mL pen injector 2 mL 0 Sig: Inject 0.75 mg subcutaneously one time a week. Inject dose once per week. Discard Pen After Jay Tran APRN.TAPE RECORDER REPAIRER Patient phones requesting refills as follows: Requested Prescriptions Pending Prescriptions Disp Refills dulaglutide (TRULICITY) 0.75 mg/0.5 mL pen injector 2 mL 0 Sig: Inject 0.75 mg subcutaneously one time a week. Inject dose once per week. Discard Pen After PATRICE-04/05/22 Labs-04/05/22 NOV-06/19/22 med filled 04/05/22 Please review and advise. Odalis Valentino LPN documented in this encounter [facility] 04-23-2022 Miscellaneous Notes OK to refill [...] Odalis Valentino LPN documented in this encounter [facility] 04-05-2022 History of Present illness Narrative [...] po every am. She has concerns about prison problems with taking Metformin for a long time, she questions if there are other alternatives, she does not want to be given it because drug companies want her to be on it. 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 She is interested in using injectable options, feels she is capable of giving herself an injection. Lipids: Denies any issues with current regimen of Lipitor 10 mg once daily. Neuro: Since her last visit pt fell at home in May hitting her head and was notified to go the ER by our office. Pt was admitted into [facility] on 05/11/21 with dx of subdural hematoma, [...] Past Histories independently gathered by the clinical support service tech and the remaining scribed note accurately describes [...] Kourtney Kincaid Ma documented in this encounter [facility] 03-23-2022 Miscellaneous Notes The following approved [...] patient. Ivette Broussard documented in this encounter [facility] 03-20-2022 Miscellaneous Notes The following approved [...] at the pharmacy documented in this encounter [facility] 01-17-2022 Miscellaneous Notes Approved PDMP website [...] Paty Reid Pss documented in this encounter [facility] 12-11-2021 Miscellaneous Notes TC to pt. LM to call office, ask for triage nurse to get update for loratadine. Updated pt that there are refills on requested medication and to call there pharm. Odalis Valentino LPN documented in this encounter [facility] 11-25-2021 Miscellaneous Notes Patient returned call [...] request an antibiotic change. Patient went to [facility] the cefpodoxime 200 mg and the [...] Tanisha Connors RN documented in this encounter [facility] 11-23-2021 Miscellaneous Notes Images from the original note were not included. Patient returned call for results of chest xray. Results XR CHEST 2V FRONTAL/LAT (Order [id number]) Patient Info Patient Name Sex Sheree Egan ([id number]) Female 1945 11/23/2021 12:27 PM - Radiology, O[place] In Impression IMPRESSION: No acute radiographic abnormality. Conference Planner: PSCB Transcribe Date/Time: Nov 23 2021 12:24P [...] Result History XR CHEST 2V FRONTAL/LAT (Order #[id number]) on 11/23/2021 - Order Result History Report Result Information Status Provider Status Final result (11/23/2021 12:27 PM) Reviewed Exam Performed Date and Time 11/23/2021 12:17 PM Resulting Agency [id number] [id number] XR CHEST 2V FRONTAL/LAT: Result Notes Mansi Green Ma 11/23/2021 2:07 PM EDT Left message for patient on Tahir Sales MD 11/23/2021 2:00 PM EDT Normal chest xray. Continue treatment as discussed in office. Went over results, notes from Dr Sales with understanding. documented in this encounter [facility] 11-23-2021 History of Present illness Narrative [...] 2021 12:03 PM documented in this encounter [facility] 11-21-2021 Miscellaneous Notes No specific recommendations [...] Brianne Carr RN documented in this encounter [facility] 11-16-2021 History of Present illness Narrative [...] Maura Morillo APRN.MANDY documented in this encounter [facility] 10-20-2021 Miscellaneous Notes Duplication. Pt notified. [...] patient. Yasmin Reid documented in this encounter [facility] 10-20-2021 Miscellaneous Notes The following approved [...] Francisca Chappell LPN documented in this encounter [facility] 09-29-2021 Miscellaneous Notes Patient notified of [...] Deirdre Quiñones MD documented in this encounter [facility] 09-26-2021 Nurse Note DM letter faxed to pt's Eye Doctor, Dr. Say Gonsalez at F#: [phone]. Radha Del Rosario Ma documented in this encounter [facility] 09-26-2021 Instructions Radha Del Rosario Ma - 09/26/2021 10:30 AM EDT Dizziness - Decrease blood pressure medication Lisinopril 20 mg daily to 10 mg. New prescription has been sent into pharmacy. documented in this encounter [facility] 09-26-2021 History of Present illness Narrative [...] by our office. Pt was admitted into [facility] on 05/11/21 with dx of subdural hematoma, [...] C. Declines Depression symptoms. Letter sent to [facility] for Retinal exam. Pt has [...] (FLONASE) 50 mcg/actuation nasal spray Use 1 Melber in each nostril once daily as needed. [...] Past Histories independently gathered by the clinical support service tech and the remaining scribed note accurately describes [...] Del Rosario Ma documented in this encounter [facility] 07-18-2021 Note HNO ID: [id number] Author: Darrick Pierre MD Service: ? Author Type: Physician Type: Progress Notes Filed: 07/18/2021 11:27 AM Note Text: NEUROSURGERY FOLLOW UP OFFICE NOTE Dr. Darrick Pierre MD, FACS Date of visit:July 18, 2021 Patient Name: Ms.Alma Darshan Chavez Date of : 1945 Current Age: [age] year old Sex: female MRN/E# [id number] Last Office Visit: June 08, 2021 Chief [...] (FLONASE) 50 mcg/actuation nasal spray Use 1 Melber in each nostril once daily as needed. [...] once daily. 90 (more content not included)... [facility] 06-08-2021 Note HNO ID: [id number] Author: Darrick Pierre MD Service: ? Author Type: Physician Type: Progress Notes Filed: 06/08/2021 11:57 AM Note Text: NEUROSURGERY FOLLOW UP OFFICE NOTE Dr. Darrick Pierre MD, [facility] Date of visit: June 08, 2021 Patient Name: Ms.Alma Darshan Chavez Date of : 1945 Current Age: [age] year old Sex: female MRN/E# [id number] Last Office Visit: May 25, 2021 Chief [...] (FLONASE) 50 mcg/actuation nasal spray Use 1 Melber in each nostril once daily as needed. [...] 20 mg ta (more content not included)... [facility] 05-25-2021 Note HNO ID: [id number] Author: Darrick Pierre MD Service: ? Author Type: Physician Type: Progress Notes Filed: 05/25/2021 10:56 AM Note Text: NEUROSURGERY FOLLOW UP OFFICE NOTE Dr. Darrick Pierre MD, FACS Date of visit: May 25, 2021 Patient Name: Ms.Alma Darshan Chavez Date of : 1945 Current Age: [age] year old Sex: female MRN/E# [id number] Last Office Visit: Hospital follow-up Chief Complaint: [...] (FLONASE) 50 mcg/actuation nasal spray Use 1 Melber in each nostril once daily as needed. [...] than 4000 m (more content not included)... [facility] 05-25-2021 Note HNO ID: [id number] Author: RT Clayton(R) Service: Radiology Author Type: [...] RT Scott(R) May 25, 2021 9:36 AM [facility] 05-13-2021 Note HNO ID: [id number] Author: Kalia Tirado APRN.TAPE RECORDER REPAIRER Service: Neurosurgery Author Type: Nurse Practitioner Type: [...] (HCC) 05/11/2021 - TBI (traumatic brain injury) ([facility]) 05/11/2021 - Fall 05/11/2021 - Subarachnoid hemorrhage following injury, no loss of consciousness ([facility]) 05/11/2021 Sheree Chavez is a 75 year old female fall from stool, CHI/SDH/SAH/contusion. - Neuro as above - Neuro checks per protocol - Ok for d/c - 2 wk f/u with Dr Pierre with CTH requested - No AC/AP until f/u SIGNATURE: Kalia Tirado APRN.CNP PATIENT NAME: Sheree Chavez DATE: May 13, 2021 TIME: 11:39 AM Pager: [phone] [facility] 05-13-2021 Note HNO ID: [id number] Author: Margret Dawson APRN.CNP Service: General Surgery Author Type: Nurse Practitioner Type: Progress Notes Filed: 05/13/2021 8:28 AM Note Text: Trauma Surgery Progress Note SERVICE DATE: 05/13/2021 Trauma Service Pager: For questions or concerns Mon-Fri 6a-5p please page [phone]. After 5pm and on Weekends and Holidays, please page [phone] if in ICU or [phone] if on RNF. SUBJECTIVE: NAEON. Patient hopeful [...] (HCC) 05/11/2021 - TBI (traumatic brain injury) ([facility]) 05/11/2021 - Fall 05/11/2021 - Subarachnoid hemorrhage following injury, no loss of consciousness ([facility]) 05/11/2021 75 year old female s/p [...] home today if cleared by neurosurgery, PT, EMBROIDERY PATTERNMAKER PPX: 1. DVT: SCDs, mobililze 2. Ulcer: n/a 3. Vit D level if > 65 yo: pending Consulted Services: 1. SICU 2. Neurosurgery 3. Orthopedic surgery 4. EMBROIDERY PATTERNMAKER Dispo Plannin. PT/OT recs pending. Case management following. Incidentals: 1. None Follow Up Needs: 1. NSGY - Dr. Pierre 2. PCP Staff Trauma Surgeon: Dr. Raymundo SIGNATURE: Margret Dawson APRN.CNP PATIENT NAME: Sheree Chavez DATE: May 13, 2021 TIME: 8:19 AM Pager: see below Trauma Service Pager: For questions or concerns Mon-Fri 6a-5p please page [phone]. After 5pm and on Weekends and Holidays, please page [phone] if in ICU or [phone] if on RNF. [facility] 05-13-2021 Note HNO ID: [id number] Author: Interface Note Service: ? Author Type: ? Type: Progress Notes Filed: 05/13/2021 3:09 AM Note Text: Epic Scheduled Downtime: 05/13/2021 1:00:00 AM to 05/13/2021 2:52:00 AM [facility] 05-12-2021 Note HNO ID: [id number] Author: Scarlett Foster RPh Service: Pharmacy Author Type: Pharmacist Type: Plan of Care Filed: 05/12/2021 4:55 PM Note Text: PHARMACY MEDICATION REVIEW Patient Name: Sheree Chavez : 1945 The following medications were updated within the SYSTEMS TESTING LABORATORY TECHNICIAN medication list: Medications ADDED to SYSTEMS TESTING LABORATORY TECHNICIAN medication list ? cannabidiol, CBD, (CANNABIDIOL ORAL) [...] (Pt reports OTC use) Medications CHANGED on SYSTEMS TESTING LABORATORY TECHNICIAN medication list ? ACETAMINOPHEN 500 MG TAB (Directions clarified) ? famotidine (PEPCID) 20 mg tablet (Pt reports use 1-2 days weekly - Directions clarified) Medications REMOVED from SYSTEMS TESTING LABORATORY TECHNICIAN medication list ? Cholecalciferol, Vitamin D3, 2,000 unit cap (Pt reports no longer taking) ? fluticasone (FLONASE) 50 mcg/actuation nasal spray ([facility] ? loratadine (CLARITIN) 10 mg tablet (Pt reports no longer taking) Additional comments: Verified medication information with patient, pharmacy and chart review. Patient stated no longer taking Vit D or Claritin - removed from med list and duplicate fluticasone order removed. Pharmacy confirmed fill dates current. The below information represents the best possible medication history: Yes Medication history completed by: Panel Machine Operator: Eun Crouch (Generator Worker) and Sd Hernandez (Tanker Driver) Source of history: Patient:Reliability of source: Appears reliable, clearly identified: Medication name, Medication dose, Medication route and Medication frequency, Pharmacy records: [facility] [phone] [facility] records Medication nonadherence identified: No barriers noted Reconciliation completed: Yes All SYSTEMS TESTING LABORATORY TECHNICIAN medications addressed by LIP Patient interested in Bedside Delivery Services or using CC OP Pharmacy at discharge? No Preferred outpatient pharmacy: [id number] [place] [address] - [address] [phone] [id number] Allergies: Palm Oil GI Upset Accupril [Quinapril* Other: See Comments Comment:Pt unsure why this is listed. Not sure what allergy is Asa [Salicylates] GI Upset Penicillins Hives Vicodin [Hydrocodon* GI Upset Bees Codeine Intolerance Metformin GI Upset Comment:diarrhea higher dose Prior to Admission medications as of 05/12/21 7884 Medication Sig Last Dose Taking therapeutic multivitamin w/ iron (THERAGRAN-M) 27-0.4 mg tablet Take 1 tablet by mouth once daily. Yes fluticasone (FLONASE) 50 mcg/actuation nasal spray Use 1 Melber in each nostril once daily as needed. [...] day (FROM ALL SOURCES) Yes Eun Crouch (Generator Worker) [id number] 05/12/2021 Sd Hernandez (Training Representative) 05/12/2021 I agree with the medication history completed by the pharmacy innovation assistant above, making changes as necessary in RED Scarlett Foster, DialloD PGY-2 Critical Care Potato Inspector [facility] 05-12-2021 Note HNO ID: [id number] Author: MICHELLE Vazquez Service: Care Management Author Type: Machine Tank Operator Type: Care Mgt Initial Assessment Filed: 05/12/2021 11:54 AM Note Text: CARE MANAGEMENT: ASSESSMENT AND DISCHARGE PLAN SERVICE DATE: May 12, 2021 SERVICE TIME: 8:50 AM PRIMARY CARE PHYSICIAN: Deirdre Quiñones MD ADMISSION STATUS: Inpatient Needs Prior to Discharge: To Be Determined;OT/PT Evaluation MEDICAL: [employer] PLUS Patient/Account Processor Stated Goals: To have reduction in symptoms;To return home to life as it was Health Insurance: [employer] Medicare Health Issues Impacting Discharge Plan: (fall) Last Discharge Date: 02/21/15 Is this Within the Past 30 days? Last discharge within 30 days: No Advance Directive: Current Advance Directive: None Router Operator Radial Attempted to Assist with AD Completion: Yes [...] Glucometer Has the Patient Been in a Halfway Facility in the Past 30 days?: No [...] Completely I feel financially burdened by my [id number] expenses for my prescription medication:: 0 - Disagree Completely Risk Score: 0 Patient is categorized as: Low risk < 2 Are you interested in bedside delivery of your medications? Yes ASSESSMENT AND PLAN: Medical Needs: Medical Needs: None Psychosocial Needs: Psychosocial Needs: None FREEDOM OF CHOICE EXPLAINED: [place] of Choice Given: No Reason Not Given: Unable to complete with this assessment - revisit POTENTIAL TRANSITION PLANS Home;Home Care;Halfway Facility/Intermediate Care Facility;To Be Determined Chart reviewed. The pateint is admitted due to fall at home ? Spoke with patient at the bedside. Explained care management role. Functional: the patient lives in ranch home with basement and has 2-3 steps to get inside the house. Transportation: independent and drives to appointments. Equipment Prior to Admission: none Support: Sammi Chavez (Daughter) [phone] and Lauren Chavez (son) [phone] Pharmacy: [facility]/pharmacy #[id number] [place] [address] PCP: Deirdre Quiñones MD The patient was [...] 12, 2021 TIME: 9:20 AM PAGER/CONTACT #: [phone] [facility] 05-12-2021 Note HNO ID: [id number] Author: Bridgett Guerrero PA-C Service: Neurosurgery Author Type: Physician Metal Fabricating Shop Helper Type: Progress Notes Filed: 05/12/2021 1:15 PM [...] May 12, 2021 TIME: 1:06 PM Pager: [phone] [facility] 05-12-2021 Note HNO ID: [id number] Author: David Garcia DO Service: General Surgery [...] questions or concerns Mon-Fri 6a-5p please page [phone]. After 5pm and on Weekends and Holidays, please page [phone] if in ICU or [phone] if on RNF. SUBJECTIVE: NAEO, AF, HDS [...] (HCC) 05/11/2021 - TBI (traumatic brain injury) ([facility]) 05/11/2021 - Fall 05/11/2021 - Subarachnoid hemorrhage following injury, no loss of consciousness ([facility]) 05/11/2021 75 year old female s/p [...] 1. None Fol (more content not included)... [facility] 05-12-2021 Note HNO ID: [id number] Author: Chacho Ocampo MD Service: General Surgery [...] concern for o (more content not included)... [facility] 05-13-2014 History of Past i llness Narrative Problem Noted Date Resolved Date Essential hypertension, benign 1 07/13/2013 DIABETES MELLITUS TYPE II-UNCOMPL 05/13/2014 documented as of this encounter (statuses as of 09/27/2021) [facility]11-06-2014 History of Past illness Narrative* Problem Noted Date Resolved Date Essential hypertension, benign 1 07/13/2013 DIABETES MELLITUS TYPE II-UNCOMPL 05/13/2014 documented as of this encounter (statuses as of 09/29/2021) [facility]2014 History of Past illness Narrative* Problem Noted Date Resolved Date Essential hypertension, benign 1 07/13/2013 DIABETES MELLITUS TYPE II-UNCOMPL 05/13/2014 documented as of this encounter (statuses as of 10/20/2021) [facility]-2014 History of Past illness Narrative* Problem Noted Date Resolved Date Essential hypertension, benign 1 07/13/2013 DIABETES MELLITUS TYPE II-UNCOMPL 05/13/2014 documented as of this encounter (statuses as of 10/20/2021) [facility]-2014 History of Past illness Narrative* Problem Noted Date Resolved Date Essential hypertension, benign 1 07/13/2013 DIABETES MELLITUS TYPE II-UNCOMPL 05/13/2014 documented as of this encounter (statuses as of 11/16/2021) [facility]2014 History of Past illness Narrative* Problem Noted Date Resolved Date Essential hypertension, benign 1 07/13/2013 DIABETES MELLITUS TYPE II-UNCOMPL 05/13/2014 documented as of this encounter (statuses as of 11/21/2021) [facility]2014 History of Past illness Narrative* Problem Noted Date Resolved Date Essential hypertension, benign 1 07/13/2013 DIABETES MELLITUS TYPE II-UNCOMPL 05/13/2014 documented as of this encounter (statuses as of 11/23/2021) [facility]2014 History of Past illness Narrative* Problem Noted Date Resolved Date Essential hypertension, benign 1 07/13/2013 DIABETES MELLITUS TYPE II-UNCOMPL 05/13/2014 documented as of this encounter (statuses as of 11/25/2021) [address]06-2014 History of Past illness Narrative* Problem Noted Date Resolved Date Essential hypertension, benign 1 07/13/2013 DIABETES MELLITUS TYPE II-UNCOMPL 05/13/2014 documented as of this encounter (statuses as of 12/14/2021) [facility]2014 History of Past illness Narrative* Problem Noted Date Resolved Date Essential hypertension, benign 1 07/13/2013 DIABETES MELLITUS TYPE II-UNCOMPL 05/13/2014 documented as of this encounter (statuses as of 01/17/2022) [facility]2014 History of Past illness Narrative* Problem Noted Date Resolved Date Essential hypertension, benign 1 07/13/2013 DIABETES MELLITUS TYPE II-UNCOMPL 05/13/2014 documented as of this encounter (statuses as of 03/20/2022) [place] [address]-06-2014 History of Past illness Narrative* Problem Noted Date Resolved Date Essential hypertension, benign 1 07/13/2013 DIABETES MELLITUS TYPE II-UNCOMPL 05/13/2014 documented as of this encounter (statuses as of 03/23/2022) [facility]2014 History of Past illness Narrative* Problem Noted Date Resolved Date Essential hypertension, benign 1 07/13/2013 DIABETES MELLITUS TYPE II-UNCOMPL 05/13/2014 documented as of this encounter (statuses as of 04/06/2022) [facility]2014 History of Past illness Narrative* Problem Noted Date Resolved Date Essential hypertension, benign 1 07/13/2013 DIABETES MELLITUS TYPE II-UNCOMPL 05/13/2014 documented as of this encounter (statuses as of 04/19/2022) [facility]2014 History of Past illness Narrative* Problem Noted Date Resolved Date Essential hypertension, benign 1 07/13/2013 DIABETES MELLITUS TYPE II-UNCOMPL 05/13/2014 documented as of this encounter (statuses as of 04/23/2022) [facility]2014 History of Past illness Narrative* Problem Noted Date Resolved Date Essential hypertension, benign 1 07/13/2013 DIABETES MELLITUS TYPE II-UNCOMPL 05/13/2014 documented as of this encounter (statuses as of 05/04/2022) [facility]2014 History of Past illness Narrative* Problem Noted Date Resolved Date Essential hypertension, benign 1 07/13/2013 DIABETES MELLITUS TYPE II-UNCOMPL 05/13/2014 documented as of this encounter (statuses as of 05/04/2022) [facility]2014 History of Past illness Narrative* Problem Noted Date Resolved Date Essential hypertension, benign 1 07/13/2013 DIABETES MELLITUS TYPE II-UNCOMPL 05/13/2014 documented as of this encounter (statuses as of 05/21/2022) [facility]2014 History of Past illness Narrative* Problem Noted Date Resolved Date Essential hypertension, benign 1 07/13/2013 DIABETES MELLITUS TYPE II-UNCOMPL 05/13/2014 documented as of this encounter (statuses as of 06/04/2022) [facility]2014 History of Past illness Narrative* Problem Noted Date Resolved Date Essential hypertension, benign 1 07/13/2013 DIABETES MELLITUS TYPE II-UNCOMPL 05/13/2014 documented as of this encounter (statuses as of 06/20/2022) [facility]2014 History of Past illness Narrative* Problem Noted Date Resolved Date Essential hypertension, benign 1 07/13/2013 DIABETES MELLITUS TYPE II-UNCOMPL 05/13/2014 documented as of this encounter (statuses as of 06/27/2022) [facility]2014 History of Past illness Narrative* Problem Noted Date Resolved Date Essential hypertension, benign 1 07/13/2013 DIABETES MELLITUS TYPE II-UNCOMPL 05/13/2014 documented as of this encounter (statuses as of 07/10/2022) [facility] History of Past illness Narrative* Problem Noted Date Resolved Date Essential hypertension, benign 1 07/13/2013 DIABETES MELLITUS TYPE II-UNCOMPL 05/13/2014 documented as of this encounter (statuses as of 07/23/2022) [facility]2014 History of Past illness Narrative* Problem Noted Date Resolved Date Essential hypertension, benign 1 07/13/2013 DIABETES MELLITUS TYPE II-UNCOMPL 05/13/2014 documented as of this encounter (statuses as of 07/26/2022) [facility]2014 History of Past illness Narrative* Problem Noted Date Resolved Date Essential hypertension, benign 1 07/13/2013 DIABETES MELLITUS TYPE II-UNCOMPL 05/13/2014 documented as of this encounter (statuses as of 07/26/2022) [address]2014 History of Past illness Narrative* Problem Noted Date Resolved Date Essential hypertension, benign 1 07/13/2013 DIABETES MELLITUS TYPE II-UNCOMPL 05/13/2014 documented as of this encounter (statuses as of 08/01/2022) [address]2014 History of Past illness Narrative* Problem Noted Date Resolved Date Essential hypertension, benign 1 07/13/2013 DIABETES MELLITUS TYPE II-UNCOMPL 05/13/2014 documented as of this encounter (statuses as of 08/16/2022) [address]2014 History of Past illness Narrative* Problem Noted Date Resolved Date Essential hypertension, benign 1 07/13/2013 DIABETES MELLITUS TYPE II-UNCOMPL 05/13/2014 documented as of this encounter (statuses as of 08/31/2022) [address]2014 History of Past illness Narrative* Problem Noted Date Resolved Date Essential hypertension, benign 1 07/13/2013 DIABETES MELLITUS TYPE II-UNCOMPL 05/13/2014 documented as of this encounter (statuses as of 09/18/2022) [place] [address]06-2014 History of Past illness Narrative* Problem Noted Date Resolved Date Essential hypertension, benign 1 07/13/2013 DIABETES MELLITUS TYPE II-UNCOMPL 05/13/2014 documented as of this encounter (statuses as of 09/25/2022) [place] [address]06-2014 History of Past illness Narrative* Problem Noted Date Resolved Date Essential hypertension, benign 1 07/13/2013 DIABETES MELLITUS TYPE II-UNCOMPL 05/13/2014 documented as of this encounter (statuses as of 09/25/2022) [place] [address]06[address]2014 History of Past illness Narrative* Problem Noted Date Resolved Date Essential hypertension, benign 1 07/13/2013 DIABETES MELLITUS TYPE II-UNCOMPL 05/13/2014 documented as of this encounter (statuses as of 10/09/2022) [facility] History of Past illness Narrative* Problem Noted Date Resolved Date Essential hypertension, benign 1 07/13/2013 DIABETES MELLITUS TYPE II-UNCOMPL 05/13/2014 documented as of this encounter (statuses as of 10/22/2022) [address]2014 History of Past illness Narrative* Problem Noted Date Resolved Date Essential hypertension, benign 1 07/13/2013 DIABETES MELLITUS TYPE II-UNCOMPL 05/13/2014 documented as of this encounter (statuses as of 11/02/2022) [address]2014 History of Past illness Narrative* Problem Noted Date Resolved Date Essential hypertension, benign 1 07/13/2013 DIABETES MELLITUS TYPE II-UNCOMPL 05/13/2014 documented as of this encounter (statuses as of 12/07/2022) [address]06[address]2014 History of Past illness Narrative* Problem Noted Date Resolved Date Essential hypertension, benign 1 07/13/2013 DIABETES MELLITUS TYPE II-UNCOMPL 05/13/2014 documented as of this encounter (statuses as of 12/12/2022) [address]2014 History of Past illness Narrative* Problem Noted Date Diagnosed Date Resolved Date Essential hypertension, benign 05/13/2014 DIABETES MELLITUS TYPE II-UNCOMPL 05/13/2014 documented as of this encounter (statuses as of 01/22/2023) [address]2014 History of Past illness Narrative* Problem Noted Date Diagnosed Date Resolved Date Essential hypertension, benign 05/13/2014 DIABETES MELLITUS TYPE II-UNCOMPL 05/13/2014 documented as of this encounter (statuses as of 01/22/2023) [address]06[address]2014 History of Past illness Narrative* Problem Noted Date Diagnosed Date Resolved Date Essential hypertension, benign 05/13/2014 DIABETES MELLITUS TYPE II-UNCOMPL 05/13/2014 documented as of this encounter (statuses as of 01/22/2023) [address]2014 History of Past illness Narrative* Problem Noted Date Diagnosed Date Resolved Date Essential hypertension, benign 05/13/2014 DIABETES MELLITUS TYPE II-UNCOMPL 05/13/2014 documented as of this encounter (statuses as of 02/06/2023) [address]2014 History of Past illness Narrative* Problem Noted Date Diagnosed Date Resolved Date Essential hypertension, benign 05/13/2014 DIABETES MELLITUS TYPE II-UNCOMPL 05/13/2014 documented as of this encounter (statuses as of 04/19/2023) [address]2014 History of Past illness Narrative* Problem Noted Date Diagnosed Date Resolved Date Essential hypertension, benign 05/13/2014 DIABETES MELLITUS TYPE II-UNCOMPL 05/13/2014 documented as of this encounter (statuses as of 04/19/2023) [place] [address]06-2014 History of Past illness Narrative* Problem Noted Date Diagnosed Date Resolved Date Essential hypertension, benign 05/13/2014 DIABETES MELLITUS TYPE II-UNCOMPL 05/13/2014 documented as of this encounter (statuses as of 04/20/2023) [place] [address]06-2014 History of Past illness Narrative* Problem Noted Date Diagnosed Date Resolved Date Essential hypertension, benign 05/13/2014 DIABETES MELLITUS TYPE II-UNCOMPL 05/13/2014 documented as of this encounter (statuses as of 04/23/2023) [facility]2014 History of Past illness Narrative* Problem Noted Date Diagnosed Date Resolved Date Essential hypertension, benign 05/13/2014 DIABETES MELLITUS TYPE II-UNCOMPL 05/13/2014 documented as of this encounter (statuses as of 04/25/2023) [facility] History of Past illness Narrative* Problem Noted Date Diagnosed Date Resolved Date Essential hypertension, benign 05/13/2014 DIABETES MELLITUS TYPE II-UNCOMPL 05/13/2014 documented as of this encounter (statuses as of 04/29/2023) [facility] History of Past illness Narrative* Problem Noted Date Diagnosed Date Resolved Date Essential hypertension, benign 05/13/2014 DIABETES MELLITUS TYPE II-UNCOMPL 05/13/2014 documented as of this encounter (statuses as of 10/22/2023) [facility] note* Diagnosis Type 2 diabetes mellitus without complication, without long-term current use of insulin ([facility])- Primary Diarrhea, unspecified type Hypertension, unspecified type Hypothyroidism, unspecified type Mixed hyperlipidemia Anxiety state Anxiety state, unspecified Subarachnoid hemorrhage following injury, no loss of consciousness, sequela ([facility]) Tobacco use Tobacco use disorder Tick bite, unspecified site, initial encounter [facility]* Diagnosis Type 2 diabetes mellitus without complication, without long-term current use of insulin ([facility]) [facility] Diagnosis Anxiety state Anxiety state, unspecified [facility]* Diagnosis Anxiety state Anxiety state, unspecified [facility] Diagnosis Congestion of nasal sinus- Primary Other diseases of nasal cavity and sinuses documented in this encounter [facility] note* Diagnosis Anxiety state Anxiety state, unspecified [facility]* Diagnosis Hypothyroidism, unspecified type Type 2 diabetes mellitus without complication, without long-term current use of insulin (HCC) Anxiety state Anxiety state, unspecified documented in this encounter [facility] note* Diagnosis Uncontrolled type 2 diabetes mellitus with hyperglycemia (HCC)- Primary Mixed hyperlipidemia Hypertension, unspecified type Anxiety state Anxiety state, unspecified Fall, initial encounter Hypothyroidism, unspecified type Arthritis of both hands documented in this encounter [facility] note* Diagnosis Anxiety state Anxiety state, unspecified Type 2 diabetes mellitus without complication, without long-term current use of insulin (HCC) [facility] Diagnosis Anxiety state Anxiety state, unspecified [facility] Diagnosis Uncontrolled type 2 diabetes mellitus with hyperglycemia (HCC) [facility]* Diagnosis Anxiety state Anxiety state, unspecified [facility]* Diagnosis Type 2 diabetes mellitus without complication, without long-term current use of insulin (HCC) Anxiety state Anxiety state, unspecified [facility]* Diagnosis Sciatica, right side- Primary [facility]* Diagnosis Hip pain- Primary Pain in joint, pelvic region and thigh [facility] Diagnosis Anxiety state Anxiety state, unspecified [facility]* Diagnosis Uncontrolled type 2 diabetes mellitus with hyperglycemia (HCC) [facility]* Diagnosis Uncontrolled type 2 diabetes mellitus with hyperglycemia (HCC) [facility]* Diagnosis Mixed hyperlipidemia [facility] Diagnosis Uncontrolled type 2 diabetes mellitus with hyperglycemia (HCC)- Primary Mixed hyperlipidemia [facility] Diagnosis Hypertension, unspecified type [facility] Diagnosis Anxiety state Anxiety state, unspecified Uncontrolled type 2 diabetes mellitus with hyperglycemia (HCC) [facility] noteNo assessment information availableWKettering Health [facility] Work Phone: Evaluation note* Diagnosis Hypothyroidism, unspecified type [facility] Diagnosis Onset Date Resolution Status Spinal stenosis at L4-L5 level acute Greater trochanteric bursitis of right hip noneactive IT band syndrome noneactive [facility] Work Phone: Evaluation note* Diagnosis Chest tightness- Primary Other chest pain [facility]* Diagnosis Closed fracture of one rib of left side, initial encounter- Primary Rib injury Sprain of ribs [facility]* Diagnosis Anxiety state Anxiety state, unspecified [facility]* Diagnosis Medicare annual wellness visit, initial- Primary Routine general medical examination at a [facility] facility Type 2 diabetes mellitus without complication, without long-term current use of insulin (HCC) Hypertension, unspecified type Mixed hyperlipidemia Anxiety state Anxiety state, unspecified Hypothyroidism, unspecified type History of COVID-19 [facility] this [facility]* Diagnosis Hypertension, unspecified type [facility]* Diagnosis Anxiety state Anxiety state, unspecified [facility] Diagnosis Anxiety state Anxiety state, unspecified Hypertension, unspecified type [facility]* Diagnosis Mixed hyperlipidemia Anxiety state Anxiety state, unspecified Hypertension, unspecified type [facility] Diagnosis Acute hip pain, right [facility] Diagnosis Hip pain Pain in joint, pelvic region and thigh [facility] Diagnosis Viral URI with cough Acute upper respiratory infections of unspecified site [facility] this [facility]* Diagnosis Anxiety state Anxiety state, unspecified [facility]* Diagnosis Hypothyroidism, unspecified type Anxiety state Anxiety state, unspecified [facility] Diagnosis Mixed hyperlipidemia- Primary Type 2 diabetes mellitus without complication, without long-term current use of insulin (HCC) Hypertension, unspecified type Hypothyroidism, unspecified type [facility]* Diagnosis Medicare annual wellness visit, subsequent- Primary Routine general medical examination at a [facility] care facility Sciatica, right side Acute pain of left knee Type 2 diabetes mellitus without complication, without long-term current use of insulin (HCC) Hypothyroidism, unspecified type Asthma due to seasonal allergies Anxiety state Anxiety state, unspecified Smoking Tobacco use disorder Screening for depression [facility] Diagnosis Anxiety state Anxiety state, unspecified documented in this encounter [facility] note* Diagnosis Type 2 diabetes mellitus without complication, without long-term current use of insulin (HCC)- Primary Sciatica, right side Hypothyroidism, unspecified type Anxiety state Anxiety state, unspecified Asthma due to seasonal allergies Mixed hyperlipidemia Smoking Tobacco use disorder documented in this encounter [facility] note* Diagnosis Asthma due to seasonal allergies Sciatica, right side Type 2 diabetes mellitus without complication, without long-term current use of insulin (HCC) documented in this encounter [facility] note* Diagnosis Type 2 diabetes mellitus with other specified complication, without long-term current use of insulin (HCC)- Primary documented in this encounter [facility] note* Diagnosis Anxiety state Anxiety state, unspecified documented in this encounter [facility] note* Diagnosis Type 2 diabetes mellitus without complication, without long-term current use of insulin (HCC) documented in this encounter [facility] note* Diagnosis Anxiety state Anxiety state, unspecified documented in this encounter [facility] note* Diagnosis Mixed hyperlipidemia Hypertension, unspecified type documented [facility] this [facility] Dis[facility] instructions Additional Instructions Ambulatory pulse ox 97% on room air. Monitor pulse ox at home, if drops below 88 return to ED for reevaluation otherwise follow-up with your doctor.[facility] Work Phone: Reason for referral (narrative)* Diagnostic Procedure Only (Routine) - Closed Specialty Diagnoses / Procedures Referred By Contac t Referred To Contact XR IMAGING Diagnoses Hip pain Procedures XR HIP BILATERAL 5V PEL/AP/LAT EACH HIP RADEX HIPS BILATERAL WITH PELVIS MINIMUM 5 VIEWS Silvia Vazquez, OLIVIA [address] [place] [address] Xr Imaging Referral ID Status Reason Start Date Expiration Date V isits Requested Visits Authorized [id number] Closed Auto-Generate d Referral 07/04/2022 08/03/2023 1 1 [facility] for referral (narrative)* Diagnostic Procedure Only (Urgent) - Closed Specialty Diagnoses / Procedures Referred By Contac t Referred To Contact XR IMAGING Diagnoses Rib injury Procedures XR RIBS/CHEST 3V AP RIB/OBLS/CXR LEFT RADEX RIBS UNI W/POSTEROANT CH MINIMUM 3 VIEWS Spencer Lopez APRN.[employer] [address] [place] [address] [place] [address] Referral ID Status Reason Start Date Expiration Date V isits Requested Visits Authorized [id number] Closed Auto-Generate d Referral 04/22/2023 05/21/2024 1 1 [facility] for referral (narrative)* Diagnostic Procedure Only (Urgent) - Closed Specialty Diagnoses / Procedures Referred By Contac t Referred To Contact XR IMAGING Diagnoses Acute hip pain, right Procedures XR HIP GENERAL 3V PELV/AP/LAT RIGHT RADEX HIP UNILATERAL WITH PELVIS 2-3 VIEWS David Alexis MD [address] [place] [address] [place] [address] Referral ID Status Reason Start Date Expiration Date V isits Requested Visits Authorized [id number] Closed Auto-Generate d Referral 11/22/2022 12/22/2023 1 1 [facility] for referral (narrative)* Diagnostic Procedure Only (Routine) - Closed Specialty Diagnoses / Procedures Referred By Contac t Referred To Contact XR IMAGING Diagnoses Hip pain Procedures XR HIP BILATERAL 5V PEL/AP/LAT EACH HIP RADEX HIPS BILATERAL WITH PELVIS MINIMUM 5 VIEWS Silvia Vazquez APRN.[employer] RE[employer] [address] [place] [address] [place] [address] Referral ID Status Reason Start Date Expiration Date V isits Requested Visits Authorized [id number] Closed Auto-Generate d Referral 07/04/2022 08/03/2023 1 1 [facility] for visit Narrative* Diagnostic Procedure Only (Urgent) - Closed Specialty Diagnoses / Procedures Referred By Contac t Referred To Contact XR IMAGING Diagnoses Rib injury Procedures XR RIBS/CHEST 3V AP RIB/OBLS/CXR LEFT RADEX RIBS UNI W/POSTEROANT CH MINIMUM 3 VIEWS Spencer Lopez APRN.TAPE RECORDER REPAIRER [address] [place] [address] [place] [address] Referral ID Status Reason Start Date Expiration Date V isits Requested Visits Authorized [id number] Closed Auto-Generate d Referral 04/22/2023 05/21/2024 1 1 [facility] for visit Narrative* Diagnostic Procedure Only (Urgent) - Closed Specialty Diagnoses / Procedures Referred By Contac t Referred To Contact XR IMAGING Diagnoses Acute hip pain, right Procedures XR HIP GENERAL 3V PELV/AP/LAT RIGHT RADEX HIP UNILATERAL WITH PELVIS 2-3 VIEWS David Alexis MD [address] [place] [address] [place] [id number] Referral ID Status Reason Start Date Expiration Date V isits Requested Visits Authorized [id number] Closed Auto-Generate d Referral 11/22/2022 12/22/2023 1 1 [facility] for visit Narrative* Diagnostic Procedure Only (Routine) - Closed Specialty Diagnoses / Procedures Referred By Contac t Referred To Contact XR IMAGING Diagnoses Hip pain Procedures XR HIP BILATERAL 5V PEL/AP/LAT EACH HIP RADEX HIPS BILATERAL WITH PELVIS MINIMUM 5 VIEWS Silvia Vazquez APRN.TAPE RECORDER REPAIRER [address] [place] [address] [place] [address] Referral ID Status Reason Start Date Expiration Date V isits Requested Visits Authorized [id number] Closed Auto-Generate d Referral 07/04/2022 08/03/2023 [address] 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 Advance Directive(s) 05/11/2021 4:29 PM Advance Directive Response Recorded Date/ Time Living Will No February 22 10:11pm Power of Stringed Instrument Tuner No February 22 023 10:11pm Advance Directive Response Recorded Date/ Time Living Will No April 19 8:36pm Power of Stringed Instrument Tuner No April 19, 2023 8:36pm Medications Administered [...] section and content) DATE CREATED AUTHOR 07/19/2021 [facility] DATE CREATED AUTHOR AUTHOR'S ORGANIZ ATION 03/02/2023 [facility] DATE CREATED AUTHOR AUTHOR'S ORGANIZ ATION 05/06/2025 [facility] Source Comments (unrecognize d section and content) In the event this informatio n is protected by the Federal Confidentiality of Alcohol and Drug Abuse Patient Records regulations: The Federal rules restrict any use of the information to criminally investigate or prosecute any alcohol or drug abuse patient.[facility] the event this information is protected by the Federal Confidentiality of Alcohol and Drug Abuse Patient Records regulations: The Federal rules restrict any use of the information to criminally investigate or prosecute any alcohol or drug abuse patient.[facility]In the event this information is protected by the Federal Confidentiality of Alcohol and Drug Abuse Patient Records regulations: The Federal rules restrict any use of the information to criminally investigate or prosecute any alcohol or drug abuse patient.[facility]In the event this information is protected by the Federal Confidentiality of Alcohol and Drug Abuse Patient Records regulations: The Federal rules restrict any use of the information to criminally investigate or prosecute any alcohol or drug abuse patient.[facility] HospitalIn the event this information is protected by the Federal Confidentiality of Alcohol and Drug Abuse Patient Records regulations: The Federal rules restrict any use of the information to criminally investigate or prosecute any alcohol or drug abuse patient.[facility] HospitalIn the event this information is protected by the Federal Confidentiality of Alcohol and Drug Abuse Patient Records regulations: The Federal rules restrict any use of the information to criminally investigate or prosecute any alcohol or drug abuse patient.[facility] HospitalIn the event this information is protected by the Federal Confidentiality of Alcohol and Drug Abuse Patient Records regulations: The Federal rules restrict any use of the information to criminally investigate or prosecute any alcohol or drug abuse patient.[facility] HospitalIn the event this information is protected by the Federal Confidentiality of Alcohol and Drug Abuse Patient Records regulations: The Federal rules restrict any use of the information to criminally investigate or prosecute any alcohol or drug abuse patient.[facility] HospitalIn the event this information is protected by the Federal Confidentiality of Alcohol and Drug Abuse Patient Records regulations: The Federal rules restrict any use of the information to criminally investigate or prosecute any alcohol or drug abuse patient.[facility] HospitalIn the event this information is protected by the Federal Confidentiality of Alcohol and Drug Abuse Patient Records regulations: The Federal rules restrict any use of the information to criminally investigate or prosecute any alcohol or drug abuse patient.[facility] HospitalIn the event this information is protected by the Federal Confidentiality of Alcohol and Drug Abuse Patient Records regulations: The Federal rules restrict any use of the information to criminally investigate or prosecute any alcohol or drug abuse patient.[facility] HospitalIn the event this information is protected by the Federal Confidentiality of Alcohol and Drug Abuse Patient Records regulations: The Federal rules restrict any use of the information to criminally investigate or prosecute any alcohol or drug abuse patient.[facility] HospitalIn the event this information is protected by the Federal Confidentiality of Alcohol and Drug Abuse Patient Records regulations: The Federal rules restrict any use of the information to criminally investigate or prosecute any alcohol or drug abuse patient.[facility] HospitalIn the event this information is protected by the Federal Confidentiality of Alcohol and Drug Abuse Patient Records regulations: The Federal rules restrict any use of the information to criminally investigate or prosecute any alcohol or drug abuse patient.[facility] HospitalIn the event this information is protected by the Federal Confidentiality of Alcohol and Drug Abuse Patient Records regulations: The Federal rules restrict any use of the information to criminally investigate or prosecute any alcohol or drug abuse patient.[facility] HospitalIn the event this information is protected by the Federal Confidentiality of Alcohol and Drug Abuse Patient Records regulations: The Federal rules restrict any use of the information to criminally investigate or prosecute any alcohol or drug abuse patient.[facility] HospitalIn the event this information is protected by the Federal Confidentiality of Alcohol and Drug Abuse Patient Records regulations: The Federal rules restrict any use of the information to criminally investigate or prosecute any alcohol or drug abuse patient.[facility] HospitalIn the event this information is protected by the Federal Confidentiality of Alcohol and Drug Abuse Patient Records regulations: The Federal rules restrict any use of the information to criminally investigate or prosecute any alcohol or drug abuse patient.[facility] HospitalIn the event this information is protected by the Federal Confidentiality of Alcohol and Drug Abuse Patient Records regulations: The Federal rules restrict any use of the information to criminally investigate or prosecute any alcohol or drug abuse patient.[facility] HospitalIn the event this information is protected by the Federal Confidentiality of Alcohol and Drug Abuse Patient Records regulations: The Federal rules restrict any use of the information to criminally investigate or prosecute any alcohol or drug abuse patient.[facility] HospitalIn the event this information is protected by the Federal Confidentiality of Alcohol and Drug Abuse Patient Records regulations: The Federal rules restrict any use of the information to criminally investigate or prosecute any alcohol or drug abuse patient.[facility] HospitalIn the event this information is protected by the Federal Confidentiality of Alcohol and Drug Abuse Patient Records regulations: The Federal rules restrict any use of the information to criminally investigate or prosecute any alcohol or drug abuse patient.[facility] HospitalIn the event this information is protected by the Federal Confidentiality of Alcohol and Drug Abuse Patient Records regulations: The Federal rules restrict any use of the information to criminally investigate or prosecute any alcohol or drug abuse patient.[facility] HospitalIn the event this information is protected by the Federal Confidentiality of Alcohol and Drug Abuse Patient Records regulations: The Federal rules restrict any use of the information to criminally investigate or prosecute any alcohol or drug abuse patient.[facility] HospitalIn the event this information is protected by the Federal Confidentiality of Alcohol and Drug Abuse Patient Records regulations: The Federal rules restrict any use of the information to criminally investigate or prosecute any alcohol or drug abuse patient.[facility] the event this information is protected by the Federal Confidentiality of Alcohol and Drug Abuse Patient Records regulations: The Federal rules restrict any use of the information to criminally investigate or prosecute any alcohol or drug abuse patient.[facility] HospitalIn the event this information is protected by the Federal Confidentiality of Alcohol and Drug Abuse Patient Records regulations: The Federal rules restrict any use of the information to criminally investigate or prosecute any alcohol or drug abuse patient.[facility] HospitalIn the event this information is protected by the Federal Confidentiality of Alcohol and Drug Abuse Patient Records regulations: The Federal rules restrict any use of the information to criminally investigate or prosecute any alcohol or drug abuse patient.[facility] HospitalIn the event this information is protected by the Federal Confidentiality of Alcohol and Drug Abuse Patient Records regulations: The Federal rules restrict any use of the information to criminally investigate or prosecute any alcohol or drug abuse patient.[facility] HospitalIn the event this information is protected by the Federal Confidentiality of Alcohol and Drug Abuse Patient Records regulations: The Federal rules restrict any use of the information to criminally investigate or prosecute any alcohol or drug abuse patient.[facility] HospitalIn the event this information is protected by the Federal Confidentiality of Alcohol and Drug Abuse Patient Records regulations: The Federal rules restrict any use of the information to criminally investigate or prosecute any alcohol or drug abuse patient.[facility] HospitalIn the event this information is protected by the Federal Confidentiality of Alcohol and Drug Abuse Patient Records regulations: The Federal rules restrict any use of the information to criminally investigate or prosecute any alcohol or drug abuse patient.[facility] HospitalIn the event this information is protected by the Federal Confidentiality of Alcohol and Drug Abuse Patient Records regulations: The Federal rules restrict any use of the information to criminally investigate or prosecute any alcohol or drug abuse patient.[facility] HospitalIn the event this information is protected by the Federal Confidentiality of Alcohol and Drug Abuse Patient Records regulations: The Federal rules restrict any use of the information to criminally investigate or prosecute any alcohol or drug abuse patient.[facility] HospitalIn the event this information is protected by the Federal Confidentiality of Alcohol and Drug Abuse Patient Records regulations: The Federal rules restrict any use of the information to criminally investigate or prosecute any alcohol or drug abuse patient.[facility] HospitalIn the event this information is protected by the Federal Confidentiality of Alcohol and Drug Abuse Patient Records regulations: The Federal rules restrict any use of the information to criminally investigate or prosecute any alcohol or drug abuse patient.[facility] HospitalIn the event this information is protected by the Federal Confidentiality of Alcohol and Drug Abuse Patient Records regulations: The Federal rules restrict any use of the information to criminally investigate or prosecute any alcohol or drug abuse patient.[facility] HospitalIn the event this information is protected by the Federal Confidentiality of Alcohol and Drug Abuse Patient Records regulations: The Federal rules restrict any use of the information to criminally investigate or prosecute any alcohol or drug abuse patient.[facility] HospitalIn the event this information is protected by the Federal Confidentiality of Alcohol and Drug Abuse Patient Records regulations: The Federal rules restrict any use of the information to criminally investigate or prosecute any alcohol or drug abuse patient.[facility] HospitalIn the event this information is protected by the Federal Confidentiality of Alcohol and Drug Abuse Patient Records regulations: The Federal rules restrict any use of the information to criminally investigate or prosecute any alcohol or drug abuse patient.[facility] HospitalIn the event this information is protected by the Federal Confidentiality of Alcohol and Drug Abuse Patient Records regulations: The Federal rules restrict any use of the information to criminally investigate or prosecute any alcohol or drug abuse patient.[facility] HospitalIn the event this information is protected by the Federal Confidentiality of Alcohol and Drug Abuse Patient Records regulations: The Federal rules restrict any use of the information to criminally investigate or prosecute any alcohol or drug abuse patient.[facility] HospitalIn the event this information is protected by the Federal Confidentiality of Alcohol and Drug Abuse Patient Records regulations: The Federal rules restrict any use of the information to criminally investigate or prosecute any alcohol or drug abuse patient.[facility] HospitalIn the event this information is protected by the Federal Confidentiality of Alcohol and Drug Abuse Patient Records regulations: The Federal rules restrict any use of the information to criminally investigate or prosecute any alcohol or drug abuse patient.[facility] HospitalIn the event this information is protected by the Federal Confidentiality of Alcohol and Drug Abuse Patient Records regulations: The Federal rules restrict any use of the information to criminally investigate or prosecute any alcohol or drug abuse patient.[facility] HospitalIn the event this information is protected by the Federal Confidentiality of Alcohol and Drug Abuse Patient Records regulations: The Federal rules restrict any use of the information to criminally investigate or prosecute any alcohol or drug abuse patient.[facility] HospitalIn the event this information is protected by the Federal Confidentiality of Alcohol and Drug Abuse Patient Records regulations: The Federal rules restrict any use of the information to criminally investigate or prosecute any alcohol or drug abuse patient.[facility] HospitalIn the event this information is protected by the Federal Confidentiality of Alcohol and Drug Abuse Patient Records regulations: The Federal rules restrict any use of the information to criminally investigate or prosecute any alcohol or drug abuse patient.[facility] HospitalIn the event this information is protected by the Federal Confidentiality of Alcohol and Drug Abuse Patient Records regulations: The Federal rules restrict any use of the information to criminally investigate or prosecute any alcohol or drug abuse patient.[facility] HospitalIn the event this information is protected by the Federal Confidentiality of Alcohol and Drug Abuse Patient Records regulations: The Federal rules restrict any use of the information to criminally investigate or prosecute any alcohol or drug abuse patient.[facility] HospitalIn the event this information is protected by the Federal Confidentiality of Alcohol and Drug Abuse Patient Records regulations: The Federal rules restrict any use of the information to criminally investigate or prosecute any alcohol or drug abuse patient.[facility] HospitalIn the event this information is protected by the Federal Confidentiality of Alcohol and Drug Abuse Patient Records regulations: The Federal rules restrict any use of the information to criminally investigate or prosecute any alcohol or drug abuse patient.[facility] HospitalIn the event this information is protected by the Federal Confidentiality of Alcohol and Drug Abuse Patient Records regulations: The Federal rules restrict any use of the information to criminally investigate or prosecute any alcohol or drug abuse patient.[facility] HospitalIn the event this information is protected by the Federal Confidentiality of Alcohol and Drug Abuse Patient Records regulations: The Federal rules restrict any use of the information to criminally investigate or prosecute any alcohol or drug abuse patient.[facility] HospitalIn the event this information is protected by the Federal Confidentiality of Alcohol and Drug Abuse Patient Records regulations: The Federal rules restrict any use of the information to criminally investigate or prosecute any alcohol or drug abuse patient.[facility] HospitalIn the event this information is protected by the Federal Confidentiality of Alcohol and Drug Abuse Patient Records regulations: The Federal rules restrict any use of the information to criminally investigate or prosecute any alcohol or drug abuse patient.[facility] HospitalIn the event this information is protected by the Federal Confidentiality of Alcohol and Drug Abuse Patient Records regulations: The Federal rules restrict any use of the information to criminally investigate or prosecute any alcohol or drug abuse patient.[facility] HospitalIn the event this information is protected by the Federal Confidentiality of Alcohol and Drug Abuse Patient Records regulations: The Federal rules restrict any use of the information to criminally investigate or prosecute any alcohol or drug abuse patient.[facility] HospitalIn the event this information is protected by the Federal Confidentiality of Alcohol and Drug Abuse Patient Records regulations: The Federal rules restrict any use of the information to criminally investigate or prosecute any alcohol or drug abuse patient.[facility] HospitalIn the event this information is protected by the Federal Confidentiality of Alcohol and Drug Abuse Patient Records regulations: The Federal rules restrict any use of the information to criminally investigate or prosecute any alcohol or drug abuse patient.[facility] HospitalIn the event this information is protected by the Federal Confidentiality of Alcohol and Drug Abuse Patient Records regulations: The Federal rules restrict any use of the information to criminally investigate or prosecute any alcohol or drug abuse patient.[facility] HospitalIn the event this information is protected by the Federal Confidentiality of Alcohol and Drug Abuse Patient Records regulations: The Federal rules restrict any use of the information to criminally investigate or prosecute any alcohol or drug abuse patient.[facility] HospitalIn the event this information is protected by the Federal Confidentiality of Alcohol and Drug Abuse Patient Records regulations: The Federal rules restrict any use of the information to criminally investigate or prosecute any alcohol or drug abuse patient.[facility] HospitalIn the event this information is protected by the Federal Confidentiality of Alcohol and Drug Abuse Patient Records regulations: The Federal rules restrict any use of the information to criminally investigate or prosecute any alcohol or drug abuse patient.[facility] HospitalIn the event this information is protected by the Federal Confidentiality of Alcohol and Drug Abuse Patient Records regulations: The Federal rules restrict any use of the information to criminally investigate or prosecute any alcohol or drug abuse patient.[facility] HospitalIn the event this information is protected by the Federal Confidentiality of Alcohol and Drug Abuse Patient Records regulations: The Federal rules restrict any use of the information to criminally investigate or prosecute any alcohol or drug abuse patient.[facility] HospitalIn the event this information is protected by the Federal Confidentiality of Alcohol and Drug Abuse Patient Records regulations: The Federal rules restrict any use of the information to criminally investigate or prosecute any alcohol or drug abuse patient.[facility] HospitalIn the event this information is protected by the Federal Confidentiality of Alcohol and Drug Abuse Patient Records regulations: The Federal rules restrict any use of the information to criminally investigate or prosecute any alcohol or drug abuse patient.[facility] HospitalIn the event this information is protected by the Federal Confidentiality of Alcohol and Drug Abuse Patient Records regulations: The Federal rules restrict any use of the information to criminally investigate or prosecute any alcohol or drug abuse patient.[facility] HospitalIn the event this information is protected by the Federal Confidentiality of Alcohol and Drug Abuse Patient Records regulations: The Federal rules restrict any use of the information to criminally investigate or prosecute any alcohol or drug abuse patient.[facility] HospitalIn the event this information is protected by the Federal Confidentiality of Alcohol and Drug Abuse Patient Records regulations: The Federal rules restrict any use of the information to criminally investigate or prosecute any alcohol or drug abuse patient.[facility] HospitalIn the event this information is protected by the Federal Confidentiality of Alcohol and Drug Abuse Patient Records regulations: The Federal rules restrict any use of the information to criminally investigate or prosecute any alcohol or drug abuse patient.[facility] HospitalIn the event this information is protected by the Federal Confidentiality of Alcohol and Drug Abuse Patient Records regulations: The Federal rules restrict any use of the information to criminally investigate or prosecute any alcohol or drug abuse patient.[facility] HospitalIn the event this information is protected by the Federal Confidentiality of Alcohol and Drug Abuse Patient Records regulations: The Federal rules restrict any use of the information to criminally investigate or prosecute any alcohol or drug abuse patient.[facility] Hospital[facility] the event this information is protected by the Federal Confidentiality of Alcohol and Drug Abuse Patient Records regulations: The Federal rules restrict any use of the information to criminally investigate or prosecute any alcohol or drug abuse patient.[facility] the event this information is protected by the Federal Confidentiality of Alcohol and Drug Abuse Patient Records regulations: The Federal rules restrict any use of the information to criminally investigate or prosecute any alcohol or drug abuse patient.[facility] HospitalIn the event this information is protected by the Federal Confidentiality of Alcohol and Drug Abuse Patient Records regulations: The Federal rules restrict any use of the information to criminally investigate or prosecute any alcohol or drug abuse patient.[facility] HospitalIn the event this information is protected by the Federal Confidentiality of Alcohol and Drug Abuse Patient Records regulations: The Federal rules restrict any use of the information to criminally investigate or prosecute any alcohol or drug abuse patient.[facility] HospitalIn the event this information is protected by the Federal Confidentiality of Alcohol and Drug Abuse Patient Records regulations: The Federal rules restrict any use of the information to criminally investigate or prosecute any alcohol or drug abuse patient.[facility] HospitalIn the event this information is protected by the Federal Confidentiality of Alcohol and Drug Abuse Patient Records regulations: The Federal rules restrict any use of the information to criminally investigate or prosecute any alcohol or drug abuse patient.[facility] HospitalIn the event this information is protected by the Federal Confidentiality of Alcohol and Drug Abuse Patient Records regulations: The Federal rules restrict any use of the information to criminally investigate or prosecute any alcohol or drug abuse patient.[facility] Reason for Visit (unrecogniz ed section [...] Request 01/21/2023 Reason Onset Date Comments [facility] Health Navigation Outreach 02/05/2023 [employer] Low HCC [...] Request 07/21/2024 Reason Onset Date Comments [facility] Health Navigation Outreach 08/21/2024 [employer] High Risk - Attempt 1 Reason Onset Date Comments CDM 09/11/2024 Enrollment outre ach Reason Comments Follow Up 3 month follow up wi th labs Reason Onset Date Comments [facility] Health Navigation Outreach 09/24/2024 humansarah dhaliwal Reason [...] Care Teams (unrecognized sec tion and content) Trade Sales Assistant Relationship Specialty Start Date End Date Deirdre Quiñones MD [address] [place] [address] PCP - General Family Practice 05/19/18 Trade Sales Assistant Relationship Specialty Start Date End Date Deirdre Quiñones MD [address] [facility] [place] [address] PCP - General Family Practice 05/19/18 Trade Sales Assistant Relationship Specialty Start Date End Date Deirdre Quiñones MD [address] [facility] [place] [address] PCP - General Family Practice 05/19/18 Trade Sales Assistant Relationship Specialty Start Date End Date Deirdre Quiñones MD [address] [facility] [place] [address] PCP - General Family Practice 05/19/18 Trade Sales Assistant Relationship Specialty Start Date End Date Deirdre Quiñones MD [facility] [place] [address] PCP - General Family Practice 05/19/18 Trade Sales Assistant Relationship Specialty Start Date End Date Deirdre Quiñones MD [address] [facility] [place] [address] PCP - General Family Practice 05/19/18 Trade Sales Assistant Relationship Specialty Start Date End Date Deirdre Quiñones MD [address] [facility] [place] [address] PCP - General Family Practice 05/19/18 Trade Sales Assistant Relationship Specialty Start Date End Date Deirdre Quiñones MD [address] [facility] [place] [address] PCP - General Family Practice 05/19/18 Trade Sales Assistant Relationship Specialty Start Date End Date Deirdre Quiñones MD [address] [facility] [place] [address] PCP - General Family Practice 05/19/18 Trade Sales Assistant Relationship Specialty Start Date End Date Deirdre Quiñones MD [address] [facility] [place] [address] PCP - General Family Medicine 05/19/18 Trade Sales Assistant Relationship Specialty Start Date End Date Deirdre Quiñones MD [address] [facility] [place] [address] PCP - General Family Medicine 05/19/18 Trade Sales Assistant Relationship Specialty Start Date End Date Deirdre Quiñones MD [address] [facility] [place] [address] PCP - General Family Medicine 05/19/18 Trade Sales Assistant Relationship Specialty Start Date End Date Deirdre Quiñones MD [address] [facility] [place] [address] PCP - General Family Medicine 05/19/18 Trade Sales Assistant Relationship Specialty Start Date End Date Deirdre Quiñones MD [address] [facility] [place] [address] PCP - General Family Medicine 05/19/18 Trade Sales Assistant Relationship Specialty Start Date End Date Deirdre Quiñones MD [address] [facility] [place] [address] PCP - General Family Medicine 05/19/18 Trade Sales Assistant Relationship Specialty Start Date End Date Deirdre Quiñones MD [address] [facility] [place] [address] PCP - General Family Medicine 05/19/18 Trade Sales Assistant Relationship Specialty Start Date End Date Deirdre Quiñones MD [address] [facility] [place] [address] PCP - General Family Medicine 05/19/18 Trade Sales Assistant Relationship Specialty Start Date End Date Deirdre Quiñones MD [address] [facility] [place] [address] PCP - General Family Medicine 05/19/18 Trade Sales Assistant Relationship Specialty Start Date End Date Deirdre Quiñones MD [address] [facility] [place] [address] PCP - General Family Medicine 05/19/18 Trade Sales Assistant Relationship Specialty Start Date End Date Deirdre Quiñones MD [address] [place] [address] PCP - General Family Medicine 05/19/18 Trade Sales Assistant Relationship Specialty Start Date End Date Deirdre Quiñones MD [address] [facility] [place] [address] PCP - General Family Medicine 05/19/18 Trade Sales Assistant Relationship Specialty Start Date End Date Deirdre Quiñones MD [address] [place] [address] PCP - General Family Medicine 05/19/18 Trade Sales Assistant Relationship Specialty Start Date End Date Deirdre Quiñones MD [address] [place] [address] PCP - General Family Medicine 05/19/18 Trade Sales Assistant Relationship Specialty Start Date End Date Deirdre Quiñones MD [address] [place] [address] PCP - General Family Medicine 05/19/18 Trade Sales Assistant Relationship Specialty Start Date End Date Deirdre Quiñones MD [address] [place] [address] PCP - General Family Medicine 05/19/18 Team [...] Thiago Jarvis , DO Emergency Provider Active Trade Sales Assistant Relationship Specialty Start Date End Date Deirdre Quiñones MD [address] [place] [address] PCP - General Family Medicine 05/19/18 Team [...] Goldy Lockwood , DO Emergency Provider Active Trade Sales Assistant Relationship Specialty Start Date End Date Deirdre Quiñones MD [address] [place] [address] PCP - General Family Medicine 05/19/18 Trade Sales Assistant Relationship Specialty Start Date End Date Deirdre Quiñones MD [address] [place] [address] PCP - General Family Medicine 05/19/18 Trade Sales Assistant Relationship Specialty Start Date End Date Deirdre Quiñones MD [address] [place] [address] PCP - General Family Medicine 05/19/18 Trade Sales Assistant Relationship Specialty Start Date End Date Deirdre Quiñones MD [address] [place] [address] PCP - General Family Medicine 05/19/18 Trade Sales Assistant Relationship Specialty Start Date End Date Deirdre Quiñones MD [address] [place] [address] PCP - General Family Medicine 05/19/18 Trade Sales Assistant Relationship Specialty Start Date End Date Deirdre Quiñones MD [address] [place] [address] PCP - General Family Medicine 05/19/18 Trade Sales Assistant Relationship Specialty Start Date End Date Deirdre Quiñones MD [address] [place] [address] PCP - General Family Medicine 05/19/18 Trade Sales Assistant Relationship Specialty Start Date End Date Deirdre Quiñones MD [address] [place] [address] PCP - General Family Medicine 05/19/18 Trade Sales Assistant Relationship Specialty Start Date End Date Deirdre Quiñones MD [address] [place] [address] PCP - General Family Medicine 05/19/18 Trade Sales Assistant Relationship Specialty Start Date End Date Deirdre Quiñones MD [address] [place] [address] PCP - General Family Medicine 05/19/18 Trade Sales Assistant Relationship Specialty Start Date End Date Deirdre Quiñones MD [address] [place] [address] PCP - General Family Medicine 05/19/18 Trade Sales Assistant Relationship Specialty Start Date End Date Deirdre Quiñones MD [address] [place] [address] PCP - General Family Medicine 05/19/18 Silvia Vazquez APRN.CNP [address] [place] [address] Porcelain Enamel Repairer Family Medicine 06/14/24 Trade Sales Assistant Relationship Specialty Start Date End Date Deirdre Quiñones MD [address] [place] [address] PCP - General Family Medicine 05/19/18 Silvia Vazquez APRN.TAPE RECORDER REPAIRER [address] [place] [address] Porcelain Enamel Repairer Family Medicine 06/14/24 Jay Tran APRN.TAPE RECORDER REPAIRER [address] [place] [address] Porcelain Enamel Repairer Family Medicine 06/23/24 Trade Sales Assistant Relationship Specialty Start Date End Date Deirdre Quiñones MD [address] [place] [address] PCP - General Family Medicine 05/19/18 Silvia Vazquez APRN.TAPE RECORDER REPAIRER [address] [place] [address] Porcelain Enamel Repairer Family Medicine 06/14/24 Jay Tran APRN.TAPE RECORDER REPAIRER [address] [place] [address] Porcelain Enamel Repairer Family Medicine 06/23/24 Trade Sales Assistant Relationship Specialty Start Date End Date Deirdre Quiñones MD [address] [place] [address] PCP - General Family Medicine 05/19/18 Silvia Vazquez APRN.TAPE RECORDER REPAIRER [address] [place] [address] Porcelain Enamel Repairer Family Medicine 06/14/24 Jay Tran APRN.TAPE RECORDER REPAIRER [address] [facility] [place] [address] Porcelain Enamel Repairer Family [facility] 06/23/24 Denise Edward, computer systems technicianParachute Accessories Attacher 09/07/24 Trade Sales Assistant Relationship Specialty Start Date End Date Deirdre Quiñones MD [address] [facility] [place] [address] PCP - General Family Medicine 05/19/18 Silvia Vazquez APRN.TAPE RECORDER REPAIRER [address] [facility] [place] [address] Porcelain Enamel Repairer Family Medicine 06/14/24 Jay Tran APRN.TAPE RECORDER REPAIRER [address] [facility] [place] [address] Porcelain Enamel Repairer [facility] 06/23/24 Denise Edward, computer systems technicianParachute Accessories Attacher 09/07/24 Trade Sales Assistant Relationship Specialty Start Date End Date Deirdre Quiñones MD [address] [facility] [place] [address] PCP - General Family Medicine 05/19/18 Silvia Vazquez SKIN THERAPIST.TAPE RECORDER REPAIRER [address] [facility] [place] [address] Porcelain Enamel Repairer Family Medicine 06/14/24 Jay Tran APRN.TAPE RECORDER REPAIRER [address] [facility] [place] [address] Porcelain Enamel Repairer Family Medicine 06/23/24 Denise Edward, computer systems technicianParachute Accessories Attacher 09/07/24 Trade Sales Assistant Relationship Specialty Start Date End Date Deirdre Quiñones MD [address] [facility] [place] [address] PCP - General Family Medicine 05/19/18 Silvia Vazquez APRN.TAPE RECORDER REPAIRER [address] [place] [address] Porcelain Enamel Repairer Family Medicine 06/14/24 Jay Tran APRN.TAPE RECORDER REPAIRER [address] [facility] [place] [address] Porcelain Enamel Repairer Family Medicine 06/23/24 Denise Edward, computer systems technicianParachute Accessories Attacher 09/07/24 Trade Sales Assistant Relationship Specialty Start Date End Date Deirdre Quiñones MD [address] [facility] [place] [address] PCP - General Family Medicine 05/19/18 Silvia Vazquez APRN.TAPE RECORDER REPAIRER [address] [facility] [place] [address] Porcelain Enamel Repairer Family Medicine 06/14/24 Jay Tran APRN.TAPE RECORDER REPAIRER [address] [facility] [place] [address] Porcelain Enamel Repairer Family [facility] 06/23/24 Denise Edward computer systems technicianParachute Accessories Attacher 09/07/24 Trade Sales Assistant Relationship Specialty Start Date End Date Deirdre Quiñones MD [address] [facility] [place] [address] PCP - General Family Medicine 05/19/18 Silvia Vazquez APRN.TAPE RECORDER REPAIRER [address] [facility] [place] [address] Porcelain Enamel Repairer Family Medicine 06/14/24 Jay Tran APRN.TAPE RECORDER REPAIRER [address] [facility] [place] [address] Porcelain Enamel Repairer Family Medicine 06/23/24 Denise Edward, computer systems technicianParachute Accessories Attacher 09/07/24 Trade Sales Assistant Relationship Specialty Start Date End Date Deirdre Quiñones MD [address] [facility] [place] [address] PCP - General Family Medicine 05/19/18 Silvia Vazquez APRN.TAPE RECORDER REPAIRER [address] [facility] [place] [address] Porcelain Enamel Repairer Family Medicine 06/14/24 Jay Tran APRN.TAPE RECORDER REPAIRER [address] [place] [address] Porcelain Enamel Repairer Family [facility] 06/23/24 Denise Edward computer systems technicianParachute Accessories Attacher 09/07/24 Trade Sales Assistant Relationship Specialty Start Date End Date Deirdre Quiñones MD [address] [place] [address] PCP - General Family Medicine 05/19/18 Silvia Vazquez APRN.TAPE RECORDER REPAIRER [address] [facility] [place] [address] Porcelain Enamel Repairer Family Medicine 06/14/24 Jay Tran APRN.TAPE RECORDER REPAIRER [address] [facility] [place] [address] Porcelain Enamel Repairer Family Medicine 06/23/24 Denise Edward, computer systems technicianParachute Accessories Attacher 09/07/24 Trade Sales Assistant Relationship Specialty Start Date End Date Deirdre Quiñones MD [address] [facility] [place] [address] PCP - General Family Medicine 05/19/18 Silvia Vazquez APRN.TAPE RECORDER REPAIRER [address] [facility] [place] [address] Porcelain Enamel Repairer Family Medicine 06/14/24 Jay Tran APRN.TAPE RECORDER REPAIRER [address] [facility] [place] [address] Porcelain Enamel Repairer Family Medicine 06/23/24 Denise Edward, computer systems technicianParachute Accessories Attacher 09/07/24 Trade Sales Assistant Relationship Specialty Start Date End Date Deirdre Quiñones MD [address] [place] [address] PCP - General Family Medicine 05/19/18 Jay Tran APRN.TAPE RECORDER REPAIRER [address] [place] [address] Porcelain Enamel Repairer Family Medicine 06/23/24 Denise Edward computer systems technicianParachute Accessories Attacher 09/07/24 Trade Sales Assistant Relationship Specialty Start Date End Date Deirdre Quiñones MD [address] [facility] [place] [address] PCP - General Family Medicine 05/19/18 Jay Tran SKIN THERAPIST.TAPE RECORDER REPAIRER [address] [facility] [place] [address] Porcelain Enamel Repairer Family Medicine 06/23/24 Denise Edward computer systems technicianParachute Accessories Attacher 09/07/24 Trade Sales Assistant Relationship Specialty Start Date End Date Deirdre Quiñones MD [address] [facility] [place] [address] PCP - General Family Medicine 05/19/18 Jay Tran SKIN THERAPIST.TAPE RECORDER REPAIRER [address] [facility] [place] [address] Porcelain Enamel Repairer Family Medicine 06/23/24 Denise Edward, computer systems technicianParachute Accessories Attacher 09/07/24 Trade Sales Assistant Relationship Specialty Start Date End Date Deirdre Quiñones MD [address] [facility] [place] [address] PCP - General Family Medicine 05/19/18 Jay Tran APRN.TAPE RECORDER REPAIRER [address] [place] [address] [facility] 06/23/24 Denise Edward computer systems technicianParachute Accessories Attacher 09/07/24 Trade Sales Assistant Relationship Specialty Start Date End Date Deirdre Quiñones MD [address] [facility] [place] [address] PCP - General Family Medicine 05/19/18 Jay Tran APRN.TAPE RECORDER REPAIRER [address] [facility] [place] [address] [facility] 06/23/24 Trade Sales Assistant Relationship Specialty Start Date End Date Deirdre Quiñones MD [address] [facility] [place] [address] PCP - General Family Medicine 05/19/18 Jay Tran APRN.TAPE RECORDER REPAIRER [address] [facility] [place] [address] [facility] 06/23/24 Goals (unrecognized section and content) Goals [...] BE BASED ON THE PRIMARY CLINICAL RECORDS. [employer] [facility]. provides no warranty or guarantee of the accuracy or completeness of information in this document.
--- OUTSIDE RECORDS SUMMARY | 2025-06-18 16:32 | XMS RPT_ITS | CCD ---
Author Organization [facility] [employer]ini[employer]ky Care Team Providers Care Supervisor Kennel Name Role Phone Deirdre Quiñones MD Primary [...] Unavailable Deirdre Quiñones Primary Care Unavailable Thiago Jarvsi Attending Unavailable Deirdre Quiñones MD Primary Care Provider Dr. Deirdre Quiñones Primary Care Provider Dr. Deirdre Quiñones Referring Provider Dr. Viet Altamirano Attending Provider Deirdre Quiñones MD Primary Care Provider [employer] MANAGER.Silvia GALVAN Unavailable Saravanan [employer] SALES MANAGER.Jay GALVAN Unavailable Denise Edward RN Unavailable Unavailabl e [employer] MANAGER.Silvia GALVAN Unavailable Unavail able [employer] MANAGER.Silvia GALVAN Unavailable SILVIA VAZQUEZ Referring UnavailDEIRDRE Lin Primary Care Unavailable SILVIA VAZQUEZ Attending UnavailDEIRDRE Lin Primary Care Unavailable DEIRDRE QUIÑONES Primary Care Unavailable DEIRDRE QUIÑONES Referring Unavailable SILVIA VAZQUEZ Attending UnavailDEIRDRE Lin Primary Care Unavailable Allergies Allergy Classification Reported Allergen(s) Allergy Type Date of Onset Reaction(s) Facility (20 sources) Acetaminophen / HYDROcodone; Translations: [HYDROCODONE-ACET AMINOPHEN] Drug Allergy 04-20-20 05 GI [facility] (20 sources) Codeine; Translations: [CODEINE] Drug Allergy 06-14-20 05 Intolerance [facility] Work Phone: (20 sources) metFORMIN; Translations: [METFORMIN] Drug Allergy 08-23-19 16 [facility] (20 sources) Palm Oil; Translations: [PALM OIL] Drug Allergy 08-20-19 19 [facility] (15 sources) Penicillins; Translations: [PENICILLINS] Drug Intolerance 04-20-20 05 [facility] (20 sources) quinapril; Translations: [QUINAPRIL HCL] Drug Allergy 08-01-19 07 Other: See [facility] (10 sources) Salicylic Acid; Translations: [SALICYLATES] Drug Allergy 04-20-20 05 [facility] (20 sources) Bees; Translations: [BEES] Propensity to adverse reactions 09-08-19 07 [facility] (20 sources) Doxycycline; Translations: [DOXYCYCLINE] Drug Allergy 11-24-19 22 [facility] Work Phone: (20 sources) Penicillins Drug Intolerance 04-20-20 05 [facility] (20 sources) Salicylate product Drug Intolerance 04-20-20 05 [facility] (2 sources) Aspirin Drug Allergy 02-23-20 23 Other [facility] (2 sources) Penicillins Allergy to substance 02-23-20 [facility] (1 source) Aspirin Drug Allergy 02-23-20 23 [facility] (1 source) Codeine Drug Allergy 02-23-20 23 [facility] (1 source) Penicillins Drug allergy (disorder) 02-23-20 23 [facility] (13 sources) Penicillins Drug Intolerance 04-20-20 05 [facility] Medications Current Medications Medication Drug Class(es) [...] be given per day (FROM ALL SOURCES) [id number] 200 actuat albuterol 0.09 mg/actuat metered dose [...] on above: Take 1 capsule by mo [facility] twice daily for 10 days. clindamycin 300 mg oral capsule (20 sources) Lincosamide Antibacterial Start: 07-23-19 24 take 1 capsule by mouth four times daily clindamycin (CLEOCIN) 300 mg capsule Take 1 capsule by mouth four times daily. 40 capsule 07/23/2023 Active Comment on above: Take 1 capsule by [facility] four times daily. doxycycline hyclate 100 mg oral tablet (2 sources) Tetracycline-class Drug Start: 09-27-19 End: 10-07-19 22 take 1 tablet by mouth twice daily doxycycline (VIBRA-TABS) 100 mg tablet Indications: Tick bite, unspecified site, initial encounter Take 1 tablet by mouth twice daily for 10 days. 20 tablet 0 09/26/2021 10/06/2021 Active Comment on above: Take 1 tablet by [facility] twice daily for 10 days. famotidine 20 mg oral tablet (20 sources) Histamine-2 Receptor Antagonist Start: 08-20-19 19 take 1 tablet by mouth every twenty-four hours as needed famotidine (PEPCID) 20 mg tablet Take 1 tablet by mouth at bedtime as needed. 08/20/2018 Active Comment on above: Take 1 tablet by [facility] at bedtime as needed. FLUoxetine 10 mg oral capsule (20 sources) Serotonin Reuptake Inhibitor Start: 03-21-20 End: 04-24-20 24 take 1 capsule by mouth once FLUoxetine (PROZAC) 10 mg capsule Indications: Anxiety state Take 1 capsule by mouth every afternoon. 90 capsule 3 04/24/2024 Active Comment on above: Take 1 capsule by [facility] once daily. TAKE 1 CAPSULE BY [facility] EVERY DAY fluticasone propionate 0.05 mg/actuat [...] (FLONASE) 50 mcg/actuation nasal spray Use 1 [place] in each nostril once daily as needed. 0 11/16/2021 Discontinued Comment on above: Use 1 [place] in each nostril once daily as needed. [...] on above: [facility] Inhalational Spacing Device (1 [...] on above: Take 2 tablets by mo [facility] once daily for 5 days. Take 4 [...] Comment on above: Take 1 tablet by [facility] once daily. traMADol hydrochloride 50 mg oral [...] on above: TAKE 2 TABLETS BY MO [facility] EVERY DAY WITH BREAKFAST tiZANidine 4 mg [...] Test Name Value Interpretation Reference Range Facility [facility] 05-03-2025 [facility] Telephone (FAMPWS) SHEREE CHAVEZ ([id number]) 1945 F Date Time Provider Department 05/03/25 DEIRDRE QUIÑONES [facility] During your visit today, we recorded the [...] 2 COMPREHENSIVE METABOLIC PANEL [SQCMP] Order #: [id number] FUTURE HEMOGLOBIN A1C [QCQKY6C] Order #: [id number] FUTURE LIPID PANEL, FASTING [SQLIPB] Order #: [id number] FUTURE COMPLETE BLOOD COUNT [SQCBC] Order #: [id number] FUTURE ALBUMIN/CREATININE RATIO, URINE [SQUACR] Order #: [id number] FUTURE THYROID STIMULATING HORMONE [SQTSH] Order #: [id number] FUTURE Prescriptions as of 05/04/2025 - OZEMPIC [...] lo*05/11/2021 Intracrania (more content not included)... Normal [facility] CNPNon 12-01-2024 CNPN Telephone (INTMWS) SHEREE CHAVEZ ([id number]) 1945 F Date Time Provider Department 12/01/24 DEIRDRE QUIÑONES INTMWS During your visit today, we recorded the following information about you: Lalita Mario LPN 12/01/2024 10:30 AM Signed Electronic PA rec'd and completed for ozempic ANNY. This was completed and approved. Prior authorization approved Payer: [employer] P[employer] Part D [phone] Note from payer: Request Reference Number: [id number]. OZEMPIC INJ 2MG/3ML is approved through 07/07/2025. Your patient may now fill this prescription and it will be covered. Approval Details Authorization number: [id number] Authorized from December 01, 2024 to July 07, 2025 Electronic appeal: Not supported View History Notes Time User Attachment Attachment received from payer. 12/01/2024 8:31 AM [facility] In Document Medication Being Authorized [...] its destination. To be filled at: e- [facility]/pharmacy [id number] [place] [address] - [address] [facility] [phone] Pt notified via my chart. Allergies As [...] Hypothyroidism [ (more content not included)... Normal [facility] Girma 10-14-2024 MANDYN Telephone (PHARMN) SHEREE CHAVEZ ([id number]) 1945 F Date Time Provider Department 10/14/24 [...] to contact the patient. Patient was sent [employer] message. If the patient returns a call, [...] Encounter Status:Closed by NUHA JOHNSTON on 11/11/24 [facility] CNOVon 09-23-2024 CNOV Office Visit (FAMPWS ) SHEREE CHAVEZ ([id number]) 1945 F Date Time Provider Department 09/23/24 9:20 AM SILVIA VAZQUEZ During your visit today, we recorded the following information about you: Pulse Respiration Blood pressure Weight 85/minute 16/minute 110/70 76.4 kg Silvia Vazquez APRN.INTERIOR DESIGN PROFESSIONAL 09/23/2024 10:14 AM Signed This is a [...] Mother Osteoporosis (more content not included)... Normal [facility] Comprehensive metabolic 2000 panelon 09-21-2024 Albumin [Mass/Vol] 4.0 g/dL Normal 3.9-4.9 [facility] Comment on above: Order Comment: Speci men Type: BLOOD SPECIMENOrdering Facility: [facility] Address: [facility] [place] [address] Performed By: #### 2 4323-8 ####[facility] LABCLIA [id number] [place] [address] [place] ALP [Catalytic activity/Vol] 27 U/L Low 34-123 [facility] Comment on above: Order Comment: Speci men Type: BLOOD SPECIMENOrdering Facility: [facility] Address: [address] [place] [address] Performed By: #### 2 4323-8 ####[facility] LABCLIA [id number] [place] [id number] [place] ALT [Catalytic activity/Vol] 21 U/L Normal 7-38 [facility] Comment on above: Order Comment: Speci men Type: BLOOD SPECIMENOrdering Facility: [facility] Address: [address] [place] [address] Performed By: #### 2 4323-8 ####[facility] LABCLIA [id number] [address] [address] [place] Anion gap [Moles/Vol] 11 mmol/L Normal 8-15 [facility] Comment on above: Order Comment: Speci men Type: BLOOD SPECIMENOrdering Facility: [facility] Address: [address] [place] [address] Performed By: #### 2 4323-8 ####[facility] LABCLIA [id number] [address] [address] [place] AST [Catalytic activity/Vol] 22 U/L Normal 13-35 [facility] Comment on above: Order Comment: Speci men Type: BLOOD SPECIMENOrdering Facility: [facility] Address: [address] [place] [address] Performed By: #### 2 4323-8 ####[facility] LABCLIA [id number] [facility] [place] [id number] [place] Bilirubin [Mass/Vol] 0.4 mg/dL Normal 0.2-1.3 [facility] Comment on above: Order Comment: Speci men Type: BLOOD SPECIMENOrdering Facility: [facility] Address: [address] [place] [address] Performed By: #### 2 4323-8 ####[facility] LABCLIA [id number] [place] [address] [place] Calcium [Mass/Vol] 10.1 mg/dL Normal 8.5-10.2 [facility] Comment on above: Order Comment: Speci men Type: BLOOD SPECIMENOrdering Facility: [facility] Address: [address] [place] [address] Performed By: #### 2 4323-8 ####[facility] LABCLIA [id number] [place] [address] [place] Chloride [Moles/Vol] 99 mmol/L Normal 98-107 [facility] Comment on above: Order Comment: Speci men Type: BLOOD SPECIMENOrdering Facility: [facility] Address: [address] [place] [address] Performed By: #### 2 4323-8 ####[facility]CL[facility] [id number] [facility] [place] [address] [place] CO2 [Moles/Vol] 24 mmol/L Normal 22-30 [facility] Comment on above: Order Comment: Speci men Type: BLOOD SPECIMENOrdering Facility: [facility] Address: [address] [place], [place] [id number] Performed By: #### 2 4323-8 ####[facility] LABIA [id number] [place] [id number] [place] [facility] Creatinine [Mass/Vol] 0.73 mg/dL Normal 0.58-0.96 [facility] Comment on above: Order Comment: Speci men Type: BLOOD SPECIMENOrdering Facility: [facility] Address: [address] [place] [address] Performed By: #### 2 4323-8 ####[facility] LABIA [id number] [place] [address] [place] Creatinine and Glomerular filtration rate.predicted panel (S/P/Bld) 83 mL/min/1.73m??? Normal >=60 [facility] Comment on above: Order Comment: Speci men Type: BLOOD SPECIMENOrdering Facility: [facility] Address: [address] [place] [address] Result Comment: Martha mated Glomerular Filtration Rate [...] actual GFR. Performed By: #### 2 4323-8 ####[facility] LABIA [id number] [place] [id number] [place] Glucose [Mass/Vol] 227 mg/dL High 74-99 [facility] Comment on above: Order Comment: Speci men Type: BLOOD SPECIMENOrdering Facility: [facility] Address: [address] [place] [address] Result Comment: The [place] Diabetes Association (ADA) provides guidance for cutoff [...] Standards of Medical Care in Diabetes 2016, [place] [employer] Association. Diabetes Care. 2016.39(Suppl 1). Performed By: #### 2 4323-8 ####[facility] LABCLIA [id number] [place] [address] [place] Potassium [Moles/Vol] 4.9 mmol/L Normal 3.7-5.1 [facility] Comment on above: Order Comment: Speci men Type: BLOOD SPECIMENOrdering Facility: [facility] Address: [address] [place] [address] Performed By: #### 2 4323-8 ####[facility] LABCLIA [id number] [place] [address] [place] Protein [Mass/Vol] 7.0 g/dL Normal 6.3-8.0 [facility] Comment on above: Order Comment: Speci men Type: BLOOD SPECIMENOrdering Facility: [facility] Address: [address] [place] [address] Performed By: #### 2 4323-8 ####[facility] LABCLIA [id number] [place] [id number] [place] Sodium [Moles/Vol] 134 mmol/L Low 136-144 [facility] Comment on above: Order Comment: Speci men Type: BLOOD SPECIMENOrdering Facility: [facility] Address: [address] [place] [address] Performed By: #### 2 4323-8 ####[facility] LABCLIA [id number] [facility] [place] [address] [place] Urea nitrogen [Mass/Vol] 15 mg/dL Normal 7-21 [facility] Comment on above: Order Comment: Speci men Type: BLOOD SPECIMENOrdering Facility: [facility] Address: [address] [place] [address] Performed By: #### 2 4323-8 ####[facility] [id number] [place] [id number] [facility] [place] HbA1c (Bld)on 09-21-2024 Average glucose Estimated from glycated hemoglobin (Bld) [Mass/Vol] 223 mg/dL Normal [facility] Comment on above: Order Comment: José Miguel stanley Type: BLOOD SPECIMENOrdering Facility: [facility] Address: [address] [place] [address] Result Comment: eAG: (Estimated average glucose) is a calculated value from HgbA1c and is inbound customer service representative of the average blood glucose level in the last 2-3 month period. Performed By: #### 5 5454-3 ####[facility] [id number] [address] [place] HbA1c (Bld) [Mass fraction] 9.4 % High 4.3-5.6 [facility] Comment on above: Order Comment: José Miguel stanley Type: BLOOD SPECIMENOrdering Facility: [facility] Address: [address] [place] [address] Result Comment: Dimitrios ican Diabetes Association guidelines indicate that patients with HgbA1c in the range 5.7-6.4% are at increased risk for development of diabetes, and intervention by lifestyle modification may be beneficial. HgbA1c greater or equal to 6.5% is considered diagnostic of diabetes. Performed By: #### 5 5454-3 ####[facility] [id number] [place] [id number] [facility] [place] CNOVon 06-17-2024 CNOV Office Visit (FAMPWS ) SHEREE CHAVEZ ([id number]) 1945 F Date Time Provider Department 06/17/24 10:00 AM SILVIA VAZQUEZ During your visit today, we recorded the following information about you: Pulse Respiration Blood pressure Weight 87/minute 16/minute 100/70 78.6 kg Height 1.553 m Silvia Vazquez APRN.INTERIOR DESIGN PROFESSIONAL 06/17/2024 3:10 PM Signed Shreee Chavez is a 78 year old female [...] Vicodin [Hydr (more content not included)... Normal [facility] CBC W Auto Differential pane l (Bld)on 06-16-2024 Basophils (Bld) [#/Vol] 0.14 10*3/uL High <0.11 [facility] Comment on above: Order Comment: Speci men Type: BLOOD SPECIMENOrdering Facility: [facility] Address: [address] [place] [address] Performed By: #### 5 7021-8 ####[facility] LABIA [id number] [place] [address] [place] Basophils/100 WBC (Bld) 1.6 % Normal [facility] Comment on above: Order Comment: Speci men Type: BLOOD SPECIMENOrdering Facility: [facility] Address: [address] [place] [address] Performed By: #### 5 7021-8 ####[facility] LABIA [id number] [place] [address] [place] Differential cell count method Nom (Bld) Auto Normal [facility] Comment on above: Order Comment: Speci men Type: BLOOD SPECIMENOrdering Facility: [facility] Address: [address] [place] [address] Performed By: #### 5 7021-8 ####[facility] LABIA [id number] [place] [address] [place] Eosinophils (Bld) [#/Vol] 0.43 10*3/uL Normal <0.46 [facility] Comment on above: Order Comment: Speci men Type: BLOOD SPECIMENOrdering Facility: [facility] Address: [address] [place] [address] Performed By: #### 5 7021-8 ####[facility] LABCLIA [id number] [place] [address] [place] Eosinophils/100 WBC (Bld) 4.8 % Normal [facility] Comment on above: Order Comment: Speci men Type: BLOOD SPECIMENOrdering Facility: [facility] Address: [address] [place] [address] Performed By: #### 5 7021-8 ####[facility] LABCLIA [id number] [place] [address] [place] Erythrocyte distribution width (RBC) [Ratio] 11.7 % Normal 11.5-15.0 [facility] Comment on above: Order Comment: Speci men Type: BLOOD SPECIMENOrdering Facility: [facility] Address: [address] [place] [address] Performed By: #### 5 7021-8 ####[facility] LABIA [id number] [place] [address] [place] Hematocrit (Bld) [Volume fraction] 43.2 % Normal 36.0-46.0 [facility] Comment on above: Order Comment: Speci men Type: BLOOD SPECIMENOrdering Facility: [facility] Address: [address] [place] [address] Performed By: #### 5 7021-8 ####[facility] LABCLIA [id number] [place] [address] [place] Hemoglobin (Bld) [Mass/Vol] 13.8 g/dL Normal 11.5-15.5 [facility] Comment on above: Order Comment: Speci men Type: BLOOD SPECIMENOrdering Facility: [facility] Address: [address] [place] [address] Performed By: #### 5 7021-8 ####[facility] LABCLIA [id number] [place] [address] [place] Immature granulocytes (Bld) [#/Vol] 0.03 10*3/uL Normal <0.10 [facility] Comment on above: Order Comment: Speci men Type: BLOOD SPECIMENOrdering Facility: [facility] Address: [address] [place] [address] Performed By: #### 5 7021-8 ####[facility] LABCLIA [id number] [place] [address] [place] Immature granulocytes/100 WBC (Bld) 0.3 % Normal [facility] Comment on above: Order Comment: Speci men Type: BLOOD SPECIMENOrdering Facility: [facility] Address: [address] [place] [address] Performed By: #### 5 7021-8 ####[facility] LABCLIA [id number] [place] [address] [place] Lymphocytes (Bld) [#/Vol] 3.83 10*3/uL Normal 1.00-4.00 [facility] Comment on above: Order Comment: Speci men Type: BLOOD SPECIMENOrdering Facility: [facility] Address: [address] [place] [address] Performed By: #### 5 7021-8 ####[facility] LABCLIA [id number] [place] [address] [place] Lymphocytes/100 WBC (Bld) 43.0 % Normal [facility] Comment on above: Order Comment: Speci men Type: BLOOD SPECIMENOrdering Facility: [facility] Address: [address] [place] [address] Performed By: #### 5 7021-8 ####[facility] LABCLIA [id number] [place] [address] [place] MCH (RBC) [Entitic mass] 30.8 pg Normal 26.0-34.0 [facility] Comment on above: Order Comment: Speci men Type: BLOOD SPECIMENOrdering Facility: [facility] Address: [address] [place] [address] Performed By: #### 5 7021-8 ####[facility] LABCLIA [id number] [place] [address] [place] MCHC (RBC) [Mass/Vol] 31.9 g/dL Normal 30.5-36.0 [facility] Comment on above: Order Comment: Speci men Type: BLOOD SPECIMENOrdering Facility: [facility] Address: [address] [place] [address] Performed By: #### 5 7021-8 ####[facility] LABCLIA [id number] [place] [address] [place] MCV (RBC) [Entitic vol] 96.4 fL Normal 80.0-100.0 [facility] Comment on above: Order Comment: Speci men Type: BLOOD SPECIMENOrdering Facility: [facility] Address: [address] [place] [address] Performed By: #### 5 7021-8 ####[facility] LABIA [id number] [place] [address] [place] Monocytes (Bld) [#/Vol] 0.73 10*3/uL Normal <0.87 [facility] Comment on above: Order Comment: Speci men Type: BLOOD SPECIMENOrdering Facility: [facility] Address: [address] [place] [address] Performed By: #### 5 7021-8 ####[facility] LABCLIA [id number] [place] [address] [place] Monocytes/100 WBC (Bld) 8.2 % Normal [facility] Comment on above: Order Comment: Speci men Type: BLOOD SPECIMENOrdering Facility: [facility] Address: [address] [place] [address] Performed By: #### 5 7021-8 ####[facility] LABIA [id number] [place] [address] [place] Neutrophils (Bld) [#/Vol] 3.75 10*3/uL Normal 1.45-7.50 [facility] Comment on above: Order Comment: Speci men Type: BLOOD SPECIMENOrdering Facility: [facility] Address: [address] [place] [address] Performed By: #### 5 7021-8 ####[facility] LABCL[facility] [id number] [place] [address] [place] Neutrophils/100 WBC (Bld) 42.1 % Normal [facility] Comment on above: Order Comment: Speci men Type: BLOOD SPECIMENOrdering Facility: [facility] Address: [address] [place] [address] Performed By: #### 5 7021-8 ####[facility] LABCLIA [id number] [place] [address] [place] Nucleated RBC (Bld) [#/Vol] 10*3/uL Normal <0.01 [facility] Comment on above: Order Comment: Speci men Type: BLOOD SPECIMENOrdering Facility: [facility] Address: [address] [place] [address] Performed By: #### 5 7021-8 ####[facility] LABCLIA [id number] [place] [address] [place] Nucleated RBC/100 WBC (Bld) [Ratio] 0.0 /100 WBC Normal [facility] Comment on above: Order Comment: Speci men Type: BLOOD SPECIMENOrdering Facility: [facility] Address: [address] [place] [address] Performed By: #### 5 7021-8 ####[facility] LABCLIA [id number] [place] [address] [place] Platelet mean volume (Bld) [Entitic vol] 9.4 fL Normal 9.0-12.7 [facility] Comment on above: Order Comment: Speci men Type: BLOOD SPECIMENOrdering Facility: [facility] Address: [address] [place] [address] Performed By: #### 5 7021-8 ####[facility] LABCLIA [id number] [address] [address] [place] Platelets (Bld) [#/Vol] 284 10*3/uL Normal 150-400 [facility] Comment on above: Order Comment: Speci men Type: BLOOD SPECIMENOrdering Facility: [facility] Address: [address] [place] [address] Performed By: #### 5 7021-8 ####[facility] LABCLIA [id number] [place] [address] [place] RBC (Bld) [#/Vol] 4.48 10*6/uL Normal 3.90-5.20 [facility] Comment on above: Order Comment: Speci men Type: BLOOD SPECIMENOrdering Facility: [facility] Address: [address] [place] [address] Performed By: #### 5 7021-8 ####[facility] LABIA [id number] [place] [address] [place] WBC (Bld) [#/Vol] 8.91 10*3/uL Normal 3.70-11.00 [facility] Comment on above: Order Comment: Speci men Type: BLOOD SPECIMENOrdering Facility: [facility] Address: [address] [place] [address] Performed By: #### 5 7021-8 ####[facility] LABIA [id number] [place] [id number] [place] Comprehensive metabolic 2000 panelon 06-16-2024 Albumin [Mass/Vol] 4.2 g/dL Normal 3.9-4.9 [facility] Comment on above: Order Comment: Speci men Type: BLOOD SPECIMENOrdering Facility: [facility] Address: [address] [place] [address] Performed By: #### 2 4331-1, 96656-6, TSHRF ####[facility] LABCLIA [id number] [place] [id number] [place] ALP [Catalytic activity/Vol] 30 U/L Low 34-123 [facility] Comment on above: Order Comment: Speci men Type: BLOOD SPECIMENOrdering Facility: [facility] Address: [address] [place] [address] Performed By: #### 2 4331-1, 73272-7, TSHRF ####[facility] LABCLIA [id number] [place] [address] [place] ALT [Catalytic activity/Vol] 17 U/L Normal 7-38 [facility] Comment on above: Order Comment: Speci men Type: BLOOD SPECIMENOrdering Facility: [facility] Address: [address] [place] [address] Performed By: #### 2 4331-1, , TSHRF ####[facility] LABIA [id number] [place] [address] [place] Anion gap [Moles/Vol] 12 mmol/L Normal 8-15 [facility] Comment on above: Order Comment: Speci men Type: BLOOD SPECIMENOrdering Facility: [facility] Address: [address] [place] [address] Performed By: #### 2 4331-1, , TSHRF ####[facility] LABIA [id number] [place] [address] [place] AST [Catalytic activity/Vol] 17 U/L Normal 13-35 [facility] Comment on above: Order Comment: Speci men Type: BLOOD SPECIMENOrdering Facility: [facility] Address: [address] [place] [address] Performed By: #### 2 4331-1, 29856-1, TSHRF ####[facility] LABIA [id number] [place] [address] [place] Bilirubin [Mass/Vol] 0.3 mg/dL Normal 0.2-1.3 [facility] Comment on above: Order Comment: Speci men Type: BLOOD SPECIMENOrdering Facility: [facility] Address: [address] [place] [address] Performed By: #### 2 4331-1, , TSHRF ####[facility] LABCLIA [id number] [place] [address] [place] Calcium [Mass/Vol] 10.0 mg/dL Normal 8.5-10.2 [facility] Comment on above: Order Comment: Speci men Type: BLOOD SPECIMENOrdering Facility: [facility] Address: [address] [place] [address] Performed By: #### 2 4331-1, , TSHRF ####[facility] LABCLIA [id number] [place] [address] [place] Chloride [Moles/Vol] 99 mmol/L Normal 98-107 [facility] Comment on above: Order Comment: Speci men Type: BLOOD SPECIMENOrdering Facility: [facility] Address: [address] [place] [address] Performed By: #### 2 4331-1, , TSHRF ####[facility] LABCLIA [id number] [place] [address] [place] CO2 [Moles/Vol] 26 mmol/L Normal 22-30 [facility] Comment on above: Order Comment: Speci men Type: BLOOD SPECIMENOrdering Facility: [facility] Address: [address] [place] [address] Performed By: #### 2 4331-1, , TSHRF ####[facility] LABCLIA [id number] [place] [id number] [place] Creatinine [Mass/Vol] 1.02 mg/dL High 0.58-0.96 [facility] Comment on above: Order Comment: Speci men Type: BLOOD SPECIMENOrdering Facility: [facility] Address: [address] [place] [address] Performed By: #### 2 4331-1, 65068-8, [facility] ####[facility] LABIA [id number] [place] [address] [place] Creatinine and Glomerular filtration rate.predicted panel (S/P/Bld) 56 mL/min/1.73m??? Low >=60 [facility] Comment on above: Order Comment: José Miguel stanley Type: BLOOD SPECIMENOrdering Facility: [facility] Address: [address] [place] [address] Result Comment: Martha mated Glomerular Filtration Rate [...] actual GFR. Performed By: #### 2 4331-1, 60224-0, [facility] ####[facility] LABIA [id number] [place] [id number] [place] Glucose [Mass/Vol] 253 mg/dL High 74-99 [facility] Comment on above: Order Comment: José Miguel stanley Type: BLOOD SPECIMENOrdering Facility: [facility] Address: [address] [place] [address] Result Comment: The [place] Diabetes Association (ADA) provides guidance for cutoff [...] Standards of Medical Care in Diabetes 2016, [place] Diabetes Association. Diabetes Care. 2016.39(Suppl 1). Performed By: #### 2 4331-1, 64322-6, TSHRF ####[facility] LABCLIA [id number] [place] [address] [place] Potassium [Moles/Vol] 4.6 mmol/L Normal 3.7-5.1 [facility] Comment on above: Order Comment: Speci men Type: BLOOD SPECIMENOrdering Facility: [facility] Address: [address] [place] [address] Performed By: #### 2 4331-1, , TSHRF ####[facility] LABIA [id number] [place] [address] [place] Protein [Mass/Vol] 7.3 g/dL Normal 6.3-8.0 [facility] Comment on above: Order Comment: Speci men Type: BLOOD SPECIMENOrdering Facility: [facility] Address: [address] [place] [address] Performed By: #### 2 4331-1, , TSHRF ####[facility] LABIA [id number] [place] [address] [place] Sodium [Moles/Vol] 137 mmol/L Normal 136-144 [facility] Comment on above: Order Comment: Speci men Type: BLOOD SPECIMENOrdering Facility: [facility] Address: [address] [place] [address] Performed By: #### 2 4331-1, , TSHRF ####[facility] LABIA [id number] [place] [id number] [place] Urea nitrogen [Mass/Vol] 19 mg/dL Normal 7-21 [facility] Comment on above: Order Comment: Speci men Type: BLOOD SPECIMENOrdering Facility: [facility] Address: [address] [place] [id number] Performed By: #### 2 4331-1, 63314-1, TSHRF ####[facility] LABCL[facility] [id number] [address] [place] HbA1c (Bld)on 06-16-2024 Average glucose Estimated from glycated hemoglobin (Bld) [Mass/Vol] 280 mg/dL Normal [facility] Comment on above: Order Comment: José Miguel stanley Type: BLOOD SPECIMENOrdering Facility: [facility] Address: [address] [place] [address] Result Comment: eAG: (Estimated average glucose) is a calculated value from HgbA1c and is inbound customer service representative of the average blood glucose level in the last 2-3 month period. Performed By: #### 5 5454-3 ####[facility] LABIA [id number] [address] STATES OF [facility] HbA1c (Bld) [Mass fraction] 11.4 % High 4.3-5.6 [facility] Comment on above: Order Comment: José Miguel stanley Type: BLOOD SPECIMENOrdering Facility: [facility] Address: [address] [place] [address] Result Comment: [place] Diabetes Association guidelines indicate that patients with HgbA1c in the range 5.7-6.4% are at increased risk for development of diabetes, and intervention by lifestyle modification may be beneficial. HgbA1c greater or equal to 6.5% is considered diagnostic of diabetes. Performed By: #### 5 5454-3 ####[facility] LABIA [id number] [place] [address] [place] Lipid 1996 panelon 4 Cholesterol [Mass/Vol] 238 mg/dL High <200 [facility] Comment on above: Order Comment: José Miguel stanley Type: BLOOD SPECIMENOrdering Facility: [facility] Address: [address] [place] [address] Result Comment: <200 mg/dL, Desirable 200-239 mg/dL, Borderline high >239 mg/dL, High Performed By: #### 2 4331-1, 87616-9, TSHRF ####[facility] LABCLIA [id number] [address] [place] Cholesterol in HDL [Mass/Vol] 39 mg/dL Low >39 [facility] Comment on above: Order Comment: Josii men Type: BLOOD SPECIMENOrdering Facility: [facility] Address: [address] [place] [address] Result Comment: 40-5 9 mg/dL, Acceptable >59 mg/dL, High: Negative risk factor for coronary heart disease <40 mg/dL, Low: Positive risk factor for coronary heart disease Performed By: #### 2 4331-1, 39005-7, TSHRF ####[facility] LABCLIA [id number] [address] STATES OF [facility] Cholesterol in LDL [Mass/Vol] 134 mg/dL High <100 [facility] Comment on above: Order Comment: José Miguel [facility] Type: BLOOD SPECIMENOrdering Facility: [facility] Address: [address] [place] [address] Result Comment: <100 mg/dL, Optimal 100-129 mg/dL, Near optimal/above optimal 130-159 mg/dL, Borderline high 160-189 mg/dL, High >189 mg/dL, Very high Secondary prevention optimal LDL Cholesterol levels are recommended to be < 70 mg/dL Performed By: #### 2 4331-1, 80980-8, TSHRF ####[facility] LABCLIA [id number] [address] OF [facility] Cholesterol in LDL/Cholesterol in HDL [Mass ratio] 3.44 {ratio} High <2.54 [facility] Comment on above: Order Comment: [facility] Type: BLOOD SPECIMENOrdering Facility: [facility] Address: [address] [place] [address] Result Comment: Kosta amezquita: 1. National Cholesterol Education Program ATP III Guideline At-A-Glance Quick Desk Reference: National Heart, Lung, and Blood [place]. National Institutes of Health. 2001: NIH Publication No. 01-3305. 2. An International Atherosclerosis Society position paper: global recommendations for the management of dyslipidemia: executive summary, Atherosclerosis. 2014: 232(2):410-413. Performed By: #### 2 4331-1, 61643-2, TSHRF ####[facility] LABCLIA [id number] [place] [address] [place] Cholesterol in VLDL [Mass/Vol] 65 mg/dL High <30 [facility] Comment on above: Order Comment: Speci men Type: BLOOD SPECIMENOrdering Facility: [facility] Address: [address] [place] [address] Performed By: #### 2 4331-1, , TSHRF ####[facility] LABCLIA [id number] [place] [address] [place] Cholesterol non HDL [Mass/Vol] 199 mg/dL High <130 [facility] Comment on above: Order Comment: Josii men Type: BLOOD SPECIMENOrdering Facility: [facility] Address: [address] [place] [address] Result Comment: <130 mg/dL, Optimal 130-159 mg/dL, Near optimal/above optimal 160-189 mg/dL, Borderline high 190-219 mg/dL, High >219 mg/dL, Very high Secondary prevention optimal non HDL Cholesterol levels are recommended to be <100 mg/dL Performed By: #### 2 433-1, , TSHRF ####[facility] LABCLIA [id number] [place] [address] [place] Cholesterol.total/Ch olesterol in HDL [Mass ratio] 6.10 {ratio} High <5.10 [facility] Comment on above: Order Comment: Speci men Type: BLOOD SPECIMENOrdering Facility: [facility] Address: [address] [place] [address] Performed By: #### 2 4331-1, , TSHRF ####[facility] LABCLIA [id number] [place] [id number] [place] FASTING TIME 12 hrs Normal [facility] Comment on above: Order Comment: Speci men Type: BLOOD SPECIMENOrdering Facility: [facility] Address: [address] [place] [address] Performed By: #### 2 4331-1, 21399-5, TSHRF ####[facility] LABCLIA [id number] [place] [address] [place] Triglyceride [Mass/Vol] 323 mg/dL High <150 [facility] Comment on above: Order Comment: Speci men Type: BLOOD SPECIMENOrdering Facility: [facility] Address: [address] [place] [address] Result Comment: <150 mg/dL, Normal 150-199 mg/dL, Borderline high 200-499 mg/dL, High >499 mg/dL, Very high Performed By: #### 2 4331-1, 82263-0, TSHRF ####[facility] LABCLIA [id number] [place] [address] [place] TSH W/REFLEX FT4on 4 TSH Qn 4.010 m[IU]/L Normal 0.270-4.200 [facility] Comment on above: Order Comment: Speci men Type: BLOOD SPECIMENOrdering Facility: [facility] Address: [address] [place] [address] Performed By: #### 2 4331-1, 16297-7, TSHRF ####[facility] LABCLIA [id number] [place] [address] [place] XR RIBS/CHEST 3V AP RIB/OBLS /CXR LEFTon 04-22-2023 [facility] XR Ribs - left Views and Annmarie st PAon 04-22-2023 IMPRESSION: Acute nondisplaced fracture of the left anterolateral seventh rib. Computer Numerical Control Machinist: YUMI Transcribe Date/Time: Apr 22 2023 12:33P Dictated by : KAMILLA WHEELER MD This examination was interpreted and the report reviewed and electronically signed by: KAMILLA WHEELER MD on Apr 22 2023 12:40PM [facility] DIVISION OF RADIOLOGY * * [...] seventh rib. DIVISION OF RADIOLOGY Provider, [facility] - 04/22/2023 * * *Final [...] fracture of the left anterolateral seventh rib. Computer Numerical Control Machinist: PSCB Transcribe Date/Time: Apr 22 2023 12:33P Dictated by : KAMILLA WHEELER MD This examination was interpreted and the report reviewed and electronically signed by: KAMILLA WHEELER MD on Apr 22 2023 12:40PM EST [facility] Radiology Study observation (narrative) [facility] XR Ribs - left Views and Annmarie st PAOrdered By: Ccf Provider on 04-22-2023 [facility] Emergency Department Summary on 02-23-2023 Emergency Department Summary [facility] Medical Records Department [address] [place] [address] Emergency Department Summary 02/22/23 MR#: [id number] Acct: [id number] Name: Sarah CHAVEZ Rep #: [id number] : 1945 77 From: Thiago Jarvis DO [...] Negative for Parasthesia or Loss of Funtion [facility] Medical History Diabetes History of trigger finger [...] (more content not included)... Normal [facility] HIP, UNI W/ Pelvis 2-3 Views on 02-23-2023 HIP, UNI W/ Pelvis 2-3 Views [facility] Imaging Services [address] [place] [address] HIP, UNI W/ Pelvis 2-3 Views MR#: [id number] Acct: [id number] Name: Sarah CHAVEZ Rep #: [id number] : 1945 F 77 From: Osbaldo Moreno DO PCP: Dr. Deirdre Quiñones MD Status: [facility] ER Study: HIP, UNI W/ Pelvis 2-3 Views Date of Exam: Exam# [id number] Ordering Dr: Thiago Jarvis DO INDICATION: Injury/Pain [...] Thiago Jarvis DO; Dr. Deirdre Quiñones MD Computer Numerical Control Machinist: Signed Normal [facility] Emergency Department Summary on 11-22-2022 Emergency Department Summary [facility] Medical Records Department [address] [place] [address] Emergency Department Summary 11/22/22 MR#: [id number] Acct: [id number] Name: Sarah CHAVEZ Rep #: [id number] : 1945 77 From: Say Martínez MD PCP: Dr. Deirdre Quiñonse MD Status:DEP ER Location: ED HPI History [...] down the right leg to her foot. [facility] Medical History Diabetes History of trigger finger [...] (more content not included)... Normal [facility] XR Pelvis and Hip - right AP and Lateral frogon 11-22-2022 IMPRESSION: 1. Moderate arthritic changes in the right hip similar to previous study. Computer Numerical Control Machinist: YUMI Transcribe Date/Time: Nov 22 2022 6:44P Dictated by : JEREMY IBARRA MD This examination was interpreted and the report reviewed and electronically signed by: JEREMY IBARRA MD on Nov 22 2022 6:46PM [facility] DIVISION OF RADIOLOGY * * [...] the right hip similar to previous study. Computer Numerical Control Machinist: PSCB Transcribe Date/Time: Nov 22 2022 6:44P Dictated by : JEREMY IBARRA MD This examination was interpreted and the report reviewed and electronically signed by: JEREMY IBARRA MD on Nov 22 2022 6:46PM EST [facility] Radiology Study observation (narrative) [facility] XR Pelvis and Hip - right AP and Lateral frogOrdered By: Ccf Provider on 11-22-2022 [facility] Orthopedic Visit Reporton Orthopedic Visit Report [facility] [address] [place] [address] OFFICE VISIT Date of Service: 08/15/22 MR#: [id number] Acct: [id number] Name: Sarah CHAVEZ Rep #: [id number] : 1945 Provider: Dr. Abhishek moore DO Age/Sex: 76/F Location: [facility] Status: Signed Intake Vital Signs 08/13/22 10:25 [...] Dr. Deirdre Quiñones MD Normal [facility] Spine Lumbar (Routine)on Spine Lumbar (Routine) [facility] Imaging Services [address] [place] [address] Spine Lumbar (Routine) MR#: [id number] Acct: [id number] Name: Sarah CHAVEZ Rep #: [id number] : 1945 F 76 From: Rolando Johnson PCP: Dr. Deirdre Quiñones MD Status: REG CLI Study: Spine Lumbar (Routine) Date of Exam: 08/11/22 Exam# [id number] Ordering Dr: Abhishek Kumar DO INDICATION: Back [...] 22:25 EST Reading Location ID and State: [address] [place] [address] Tel , Service support , CC: Dr. Abhishek Kumar DO; Dr. Deirdre Quiñones MD Computer Numerical Control Machinist: Signed Normal [facility] Lumbar Spine 2 or 3 Viewson 07-23-2022 Lumbar Spine 2 or 3 Views [facility] Radiology [address] [place] [address] Lumbar Spine 2 or 3 Views MR#: [id number] Acct: [id number] Name: Sarah CHAVEZ Rep #: [id number] : 1945 F 76 From: Naresh Johnson PCP: Dr. Deirdre Quiñones MD Status: DEP AMB Study: Lumbar Spine 2 or 3 Views Date of Exam: Exam# [id number] Ordering Dr: Abhishek Kumar DO STUDY: X-RAY [...] 16:22 EST Reading Location ID and State: [facility] / [place] , Service support , CC: Dr. Abhishek Kumar DO; Dr. Deirdre Quiñones MD Computer Numerical Control Machinist: Signed Normal [facility] Orthopedic Visit Reporton Orthopedic Visit Report [facility] [address] [place] [address] OFFICE VISIT Date of Service: 07/23/22 MR#: [id number] Acct: [id number] Name: Sarah CHAVEZ Rep #: [id number] : 1945 Provider: Dr. Abhishek moore DO Age/Sex: 76/F Location: [facility] Status: Signed Intake Vital Signs 05/11/21 09:37 [...] ea PO 07/23/22 [History Confirmed 07/23/22] [facility] Medical History (Updated 07/23/22 @ 09:42 by [...] by me, Dr. Abhishek Kumar DO 07/23/22 6770. Sarah CHAVEZ is a 76 year old [...] unspecified 07/23/22 0943 Date Abhishek Kumar DO [facility] Signature: Date (if applicable) CC: Dr. Deirdre Quiñones, (more content not included)... Normal [facility] XR HIP BILATERAL 5V PEL/AP/L AT EACH HIPon 07-05-2022 IMPRESSION: 1. 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 2. Left hip unremarkable. 2. No fracture. Computer Numerical Control Machinist: [employer]B Transcribe Date/Time: Jul 05 2022 6:54P Dictated by : MILTON MILLER MD This examination was interpreted and the report reviewed and electronically signed by: MILTON MILLER MD on Jul 05 2022 6:57PM [facility] DIVISION OF RADIOLOGY * * [...] consistent with chondrocalcinosis. DIVISION [facility] RADIOLOGY [facility] * * *Final Report* * [...] 2. Left hip unremarkable. 2. No fracture. Computer Numerical Control Machinist: PSCB Transcribe Date/Time: Jul 05 2022 6:54P Dictated by : MILTON MILLER MD This examination was interpreted and the report reviewed and electronically signed by: MILTON MILLER MD on Jul 05 2022 6:57PM EST [facility] Radiology Study observation (narrative) [facility] XR HIP BILATERAL 5V PEL/AP/L AT EACH HIPOrdered By: Ccf Provider on 07-05-2022 [facility] XR Chest PA and Lateralon IMPRESSION: No acute radiographic abnormality. Computer Numerical Control Machinist: [employer] Transcribe Date/Time: Nov 23 2021 12:24P Dictated [...] spine IMPRESSION IMPRESSION: No acute radiographic abnormality. Computer Numerical Control Machinist: PSCKate Transcribe Date/Time: Nov 23 2021 12:24P Dictated by : ANDREINA REYES MD This examination was interpreted and the report reviewed and electronically signed by: ANDREINA REYES MD on Nov 23 2021 12:25PM EST [facility] Radiology Study observation (narrative) [facility] XR Chest PA and LateralOrder ed By: Ccf Provider on 11-23-2021 [facility] ALBUMIN/CREAT RATIO RND URon 09-27-2021 Albumin DL <= 20 mg/L (U) [Mass/Vol] 36.6 mg/L [facility] Albumin/Creatinine (U) [Mass ratio] 86 mg/g High <30 mg/g [facility] Creatinine (U) [Mass/Vol] 42.8 mg/dL 20.0 - 300.0 mg/dL [facility] CBC W Auto Differential pane l (Bld)on 09-26-2021 Abs Immature Gran 0.04 k/uL <0.10 k/uL [facility] Basophils (Bld) [#/Vol] 0.15 10*3/uL High <0.11 k/uL [facility] Basophils/100 WBC (Bld) 1.4 % [facility] Differential cell count method Nom (Bld) Auto [facility] Eosinophils (Bld) [#/Vol] 0.62 10*3/uL High <0.46 k/uL [facility] Eosinophils/100 WBC (Bld) 5.6 % [facility] Erythrocyte distribution width (RBC) [Ratio] 11.9 % 11.5 - 15.0 % [facility] Hematocrit (Bld) [Volume fraction] 43.4 % 36.0 - 46.0 % [facility] Hemoglobin (Bld) [Mass/Vol] 14.0 g/dL 11.5 - 15.5 g/dL [facility] Immature Gran % 0.4 % [facility] Lymphocytes (Bld) [#/Vol] 4.75 10*3/uL High 1.00 - 4.00 k/uL [facility] Lymphocytes/100 WBC (Bld) 43.1 % [facility] MCH (RBC) [Entitic mass] 30.8 pg 26.0 - 34.0 pg [facility] MCHC (RBC) [Mass/Vol] 32.3 g/dL 30.5 - 36.0 g/dL [facility] MCV (RBC) [Entitic vol] 95.4 fL 80.0 - 100.0 fL [facility] Monocytes (Bld) [#/Vol] 0.87 10*3/uL High <0.87 k/uL [facility] Monocytes/100 WBC (Bld) 7.9 % [facility] [facility] Neutrophils (Bld) [#/Vol] 4.59 10*3/uL 1.45 - 7.50 k/uL [facility] Neutrophils/100 WBC (Bld) 41.6 % [facility] Nucleated RBC (Bld) [#/Vol] 10*3/uL <0.01 k/uL [facility] Nucleated RBC/100 WBC (Bld) [Ratio] 0.0 /100 WBC [facility] Platelet mean volume (Bld) [Entitic vol] 9.3 fL 9.0 - 12.7 fL [facility] Platelets (Bld) [#/Vol] 323 10*3/uL 150 - 400 k/uL [facility] RBC (Bld) [#/Vol] 4.55 10*6/uL 3.90 - 5.2 0 m/uL [facility] WBC (Bld) [#/Vol] 11.02 10*3/uL High 3.70 - 11 .00 k/uL [facility] Comprehensive metabolic 2000 panelon 09-26-2021 Albumin [Mass/Vol] 4.5 g/dL 3.9 - 4.9 g/dL [facility] ALP [Catalytic activity/Vol] 30 U/L Low 34 - 123 U/L [facility] ALT [Catalytic activity/Vol] 20 U/L 7 - 38 U/L [facility] Anion gap [Moles/Vol] 13 mmol/L 9 - 18 mmol/L [facility] AST [Catalytic activity/Vol] 24 U/L 13 - 35 U/L [facility] Bilirubin [Mass/Vol] 0.2 mg/dL 0.2 - 1 .3 mg/dL [facility] Calcium [Mass/Vol] 10.0 mg/dL 8.5 - 10. 2 mg/dL [facility] Chloride [Moles/Vol] 98 mmol/L 97 - 10 5 mmol/L [facility] CO2 [Moles/Vol] 24 mmol/L 22 - 30 mmol/L [facility] Creatinine [Mass/Vol] 0.68 mg/dL 0.58 - 0.96 mg/dL [facility] Estimated Glomerular Filtration Rate 90 mL/min/1.73m >=60 mL/min/1.73m [facility] Glucose [Mass/Vol] 179 mg/dL High 74 - 99 mg/dL [facility] Potassium [Moles/Vol] 4.6 mmol/L 3.7 - 5.1 mmol/L [facility] Protein [Mass/Vol] 7.2 g/dL 6.3 - 8.0 g/dL [facility] Sodium [Moles/Vol] 135 mmol/L Low 136 - 144 mmol/L [facility] Urea nitrogen [Mass/Vol] 17 mg/dL 7 - 21 mg/dL [facility] HGB A1Con 09-26-2021 Average glucose Estimated from glycated hemoglobin (Bld) [Mass/Vol] 220 mg/dL [facility] HbA1c (Bld) [Mass fraction] 9.3 % High 4.3 - 5.6 % [facility] LIPID PANEL, NONFASTINGon Cholesterol [Mass/Vol] 212 mg/dL High <200 mg/dL [facility] HDL Cholesterol, Nonfasting 46 mg/dL >39 mg/dL [facility] LDL Cholesterol, Nonfasting 105 mg/dL High <100 mg/dL [facility] LDL/HDL Ratio, Nonfasting 2.28 mg/dL <2.54 mg/dL [facility] Non HDL Cholesterol, Nonfasting 166 mg/dL High <130 mg/dL [facility] Total Chol/HDL Ratio, Nonfasting 4.61 mg/dL <5.10 mg/dL [facility] Triglycerides, Nonfasting 303 mg/dL High <150 mg/dL [facility] VLDL Cholesterol, Nonfasting 61 mg/dL High <30 mg/dL [facility] TSH BLDon 09-26-2021 TSH Qn 3.130 m[IU]/L 0.270 - 4.200 mIU/L [facility] CNOVon 07-18-2021 CNOV Office Visit (NEAGCL M) SHEREE CHAVEZ ([id number]) 1945 F Date Time Provider Department 07/18/21 10:30 AM DARRICK PIERRE NEAGCLM During your visit today, we recorded the following information about you: Temperature Pulse Blood pressure Weight 97.3 degrees 69/minute 118/80 80.7 kg Height 1.651 m Darrick Pierre MD 07/18/2021 11:27 AM Signed NEUROSURGERY FOLLOW UP OFFICE NOTE Dr. Darrick Pierre MD, [facility] Date of visit:July 18, 2021 Patient Name: Ms.Alma Darshan Chavez Date of : 1945 Current Age: [age] year old Sex: female MRN/E# [id number] Last Office Visit: June 08, 2021 Chief [...] (FLONASE) 50 mcg/actuation nasal spray Use 1 Callaway in each nostril once daily as needed. [...] ta (more content not included)... Normal [facility] CT BRAIN WO IVCONon 07-18-19 [...] base and imaged soft tissues are unremarkable. Oxygen Equipment Technician (topogram) images: No additional significant findings. IMPRESSION: Interval resolution of the previously noted parafalcine subdural hemorrhage and right frontal parietal subarachnoid hemorrhage. No new hemorrhage in the interval. Mild chronic microvascular ischemic change throughout the supratentorial white matter. Computer Numerical Control Machinist: YUMI Transcribe Date/Time: Jul 18 2021 2:47P Dictated by : AUSTIN JOHNSTON MD This examination was interpreted and the report reviewed and electronically signed by: AUSTIN JOHNSTON MD on Jul 18 2021 2:56PM EST [id number] Normal [facility] CNOVon 06-08-2021 CNOV Office Visit (JAYDON ) SHEREE CHAVEZ ([id number]) 1945 F Date Time Provider Department 06/08/21 10:30 AM DARRICK PIERRE During your visit today, we recorded the following information about you: Temperature Pulse Blood pressure Weight 97.6 degrees 83/minute 100/62 80.7 kg Height 1.651 m Darrick Pierre MD 06/08/2021 11:57 AM Signed NEUROSURGERY FOLLOW UP OFFICE NOTE Dr. Darrick Pierre MD, [facility] Date of visit: June 08, 2021 Patient Name: Ms.Alma Darshan Chavez Date of : 1945 Current Age: [age] year old Sex: female MRN/E# [id number] Last Office Visit: May 25, 2021 Chief [...] (FLONASE) 50 mcg/actuation nasal spray Use 1 [place] in each nostril once daily as needed. [...] mg (more content not included)... Normal [facility] CT BRAIN WO IVCONon 06-08-20 [...] base and imaged soft tissues are unremarkable. Oxygen Equipment Technician (topogram) images: No additional findings. IMPRESSION: 1. Interval decrease of trace subarachnoid hemorrhage within right frontal lobe. Interval decrease in trace parafalcine subdural hemorrhage. No CT evidence of new intracranial hemorrhage. No significant mass effect. 2. No CT evidence of acute cortical infarct. 3. Chronic small vessel ischemic white matter disease and diffuse cerebral volume loss. Computer Numerical Control Machinist: [facility] STERLINGKate Transcribe Date/Time: Jun 08 2021 1:15P Dictated by : LAMONTE COLINDRES MD This examination was interpreted and the report reviewed and electronically signed by: LAMONTE COLINDRES MD on Jun 08 2021 1:25PM EST [id number] Normal [facility] CNOVon 05-25-2021 CNOV Office Visit (NUAGAK ) SHEREE CHAVEZ ([id number]) 1945 F Date Time Provider Department 05/25/21 [...] Age: [age] year old Sex: female MRN/E# [id number] Last Office Visit: Hospital follow-up Chief Complaint: [...] (FLONASE) 50 mcg/actuation nasal spray Use 1 Callaway in each nostril once daily as needed. [...] d (more content not included)... Normal [facility] CT BRAIN WO IVCONon 05-25-20 [...] the mastoid air cells are grossly clear. Oxygen Equipment Technician (topogram) images: No additional significant findings. IMPRESSION: Decreased conspicuity hyperdense subdural hematoma associated with the interhemispheric falx, currently measuring approximately 2 mm in maximal thickness, previously approximately 4 mm. No definitive residual right frontal parietal convexity subdural hematoma. Trace right frontal parietal subarachnoid hemorrhage is less conspicuous. No new hemorrhage in the interval. Computer Numerical Control Machinist: PSCB Transcribe Date/Time: May 25 2021 1:27P Dictated by : AUSTIN JOHNSTON MD This examination was interpreted and the report reviewed and electronically signed by: AUSTIN JOHNSTON MD on May 25 2021 1:37PM EST [id number] Normal [facility] Basic metabolic 2000 panelon 05-13-2021 Anion gap [Moles/Vol] 10 mmol/L Normal -18 [facility] Comment on above: Order Comment: Speci men Type: BLOOD SPECIMEN Performed By: #### 1 9123-9, 2777-, 99205-6 ####[facility]ORYCLIA [id number] [place] [address] [place] Calcium [Mass/Vol] 8.9 mg/dL Normal 8.5-10.2 [facility] Comment on above: Order Comment: Speci men Type: BLOOD SPECIMEN Performed By: #### 1 9123-9, 27701-05, 43738-9 ####[facility]ORY[facility] [id number] [place] [address] [place] Chloride [Moles/Vol] 102 mmol/L Normal 97-105 [facility] Comment on above: Order Comment: Speci men Type: BLOOD SPECIMEN Performed By: #### 1 9123-9, 27701-05, 26460-2 ####[facility]ORY[facility] [id number] [place] [address] [place] CO2 [Moles/Vol] 24 mmol/L Normal 22-30 [facility] Comment on above: Order Comment: Speci men Type: BLOOD SPECIMEN Performed By: #### 1 9123-9, 2777, 88360-0 ####[facility]ORY[facility] [id number] [place] [address] [place] Creatinine [Mass/Vol] 0.78 mg/dL Normal 0.58-0.96 [facility] Comment on above: Order Comment: Speci [facility] Type: BLOOD SPECIMEN Performed By: #### 1 9123-9, 2777-1, 91096-2 ####[facility]ORYCLIA [id number] [address] [place] GFR/1.73 sq M.predicted MDRD (S/P/Bld) [Vol rate/Area] mL/min/{1.73_m2} Normal [facility] Comment on above: Order [...] GFR. Performed By: #### 1 9123-9, 2777-1, 39981-8 ####[facility]ORYCLIA [id number] [place] [address] [place] Glucose [Mass/Vol] 167 mg/dL High 74-99 [facility] Comment on above: [facility] Type: BLOOD SPECIMEN Result Comment: The [place] Diabetes Association (ADA) provides guidance for cutoff [...] Standards of Medical Care in Diabetes 2016, [place] [employer]. Diabetes Care. 2016.39(Suppl 1). Performed By: #### 1 9123-9, 2777, 89652-3 ####[facility]ORYCLIA [id number] [address] Potassium [Moles/Vol] 4.1 mmol/L Normal 3.7-5.1 [facility] Comment on above: Order Comment: Speci men Type: BLOOD SPECIMEN Performed By: #### 1 9123-9, 2777, 70175-4 ####[facility]ORYCL[facility] [id number] [address] Sodium [Moles/Vol] 136 mmol/L Normal 136-144 [facility] Comment on above: Order Comment: Speci men Type: BLOOD SPECIMEN Performed By: #### 1 9123-9, 27701-05, ####[facility]ORYCLIA [id number] [address] Urea nitrogen [Mass/Vol] 14 mg/dL Normal 7-21 [facility] Comment on above: Order Comment: Speci men Type: BLOOD SPECIMEN Performed By: #### 1 9123-9, 2777, ####[facility]ORYCLIA [id number] [address] CALCIUM IONIZED Bon 05-13-20 21 Calcium.ionized (BldV) [Mass/Vol] 1.08 mmol/L Normal 1.08-1.30 [facility] Comment on above: Order Comment: Speci men Type: BLOOD SPECIMEN Performed By: #### I CA ####[facility]ORYCLIA [id number] [address] Calcium.ionized adjusted to pH 7.4 (Bld) [Moles/Vol] 1.09 mmol/L Normal 1.08-1.30 [facility] Comment on above: Order Comment: Speci men Type: BLOOD SPECIMEN Performed By: #### I CA ####[facility]ORYCLIA [id number] [address] CBC panel Auto (Bld)on 05-13 Erythrocyte distribution width (RBC) [Ratio] 11.9 % Normal 11.5-15.0 [facility] Comment on above: Order Comment: Speci men Type: BLOOD SPECIMEN Performed By: #### 5 8410-2 ####[facility]ORYCLIA [id number] [address] Hematocrit (Bld) [Volume fraction] 39.1 % Normal 36.0-46.0 [facility] Comment on above: Order Comment: Speci men Type: BLOOD SPECIMEN Performed By: #### 5 8410-2 ####[facility]ORYCLIA [id number] [address] Hemoglobin (Bld) [Mass/Vol] 12.9 g/dL Normal 11.5-15.5 [facility] Comment on above: Order Comment: Speci men Type: BLOOD SPECIMEN Performed By: #### 5 8410-2 ####[facility]ORYCLIA [id number] [address] MCH (RBC) [Entitic mass] 31.2 pg Normal 26.0-34.0 [facility] Comment on above: Order Comment: Speci men Type: BLOOD SPECIMEN Performed By: #### 5 8410-2 ####[facility]ORYCLIA [id number] [address] MCHC (RBC) [Mass/Vol] 33.0 g/dL Normal 30.5-36.0 [facility] Comment on above: Order Comment: Speci men Type: BLOOD SPECIMEN Performed By: #### 5 8410-2 ####[facility]ORYCLIA [id number] [address] MCV (RBC) [Entitic vol] 94.7 fL Normal 80.0-100.0 [facility] Comment on above: Order Comment: Speci men Type: BLOOD SPECIMEN Performed By: #### 5 8410-2 ####[facility]ORYCLIA [id number] [address] [place] Nucleated RBC (Bld) [#/Vol] 10*3/uL Normal <0.01 [facility] Comment on above: Order Comment: Speci men Type: BLOOD SPECIMEN Performed By: #### 5 8410-2 ####[facility]ORYCLIA [id number] [address] Platelet mean volume (Bld) [Entitic vol] 9.2 fL Normal 9.0-12.7 [facility] Comment on above: Order Comment: Speci men Type: BLOOD SPECIMEN Performed By: #### 5 8410-2 ####[facility]ORYCLIA [id number] [address] Platelets (Bld) [#/Vol] 278 10*3/uL Normal 150-400 [facility] Comment on above: Order Comment: Speci men Type: BLOOD SPECIMEN Performed By: #### 5 8410-2 ####[facility]ORYCLIA [id number] [address] RBC (Bld) [#/Vol] 4.13 10*6/uL Normal 3.90-5.20 [facility] Comment on above: Order Comment: Speci men Type: BLOOD SPECIMEN Performed By: #### 5 8410-2 ####[facility]ORYCLIA [id number] [address] WBC (Bld) [#/Vol] 8.56 10*3/uL Normal 3.70-11.00 [facility] Comment on above: Order Comment: Speci men Type: BLOOD SPECIMEN Performed By: #### 5 8410-2 ####[facility]ORYCLIA [id number] [address] CNDSon 05-13-2021 CNDS HNO ID: [id number] Author: Margret Dawson APRN.CNP Service: General Surgery [...] THE HOSPITAL: You were admitted at [facility] on 05/11/2021 following a fall. As part [...] you become constipated, you may use any coyl-bsl-qaceolt treatment such as Milk of Magnesia, Sennakot, Prune Juice, Suppositories, etc. in addition to the stool softener/fiber supplement Other: Do not take any over the counter blood thinning medications such as ibuprofen, motrin, aspirin, naproxen, or aleve until cleared by neurosurgery. Use acetaminophen (Tylenol) as recommended on the bottle You should use an wjfg-kpq-ivujton stool softener (Docusate sodium) and/or a fiber [...] call for appointment?: Yes Darrick Pierre MD [phone] [facility] [address] PCP Requested Referral Follow-Up Appointment When: In 2 weeks Patient/Parents to call for appointment?: Yes Deirdre Quiñones MD [phone] [address] [place] [address] PCP Requested Referral Additional Provider to Provider [...] APPO (more content not included)... Normal [facility] Magnesium SerPl-mCncon 05-13 Magnesium [Mass/Vol] 2.0 mg/dL Normal 1.7-2.3 [facility] Comment on above: Order Comment: Speci men Type: BLOOD SPECIMEN Performed By: #### 1 9123-9, 2777-1, 10962-6 ####[facility]ORYCLIA [id number] [address] Phosphate SerPl-ncon 05-13 Phosphate [Mass/Vol] 3.6 mg/dL Normal 2.7-4.8 [facility] Comment on above: Order Comment: Speci men Type: BLOOD SPECIMEN Performed By: #### 1 9123-9, 2777-1, 18280-1 ####[facility]ORYCLIA [id number] [address] THERAPY NTon 05-13-2021 THERAPY NT HNO ID: [id number] Author: Lily Johnson [facility] [place] Service: Speech/Swallow Author Type: Speech Language Pathologist Type: Therapy (PT/OT/Speech/Resp) Filed: 05/13/2021 9:26 AM Note Text: Speech Therapy Speech Evaluation SERVICE DATE: 05/13/2021 SERVICE TIME: 902 to 18 ROOM: [place] [address] IMPRESSION: Functional communication without limitations in: Speech,Language,Cognit [...] 09/07 Months Reversed 09/07 30 Seconds 08/10 Snbd-Xynf-Hnhe 09/07 Go/No-Go 09/07 Address Recall 08/10 Total [...] Skilled Need Interventions Provided: Speech Language Eval (34999) $ Speech Language Eval (82034) Billed Units: 1 unit Training and education [...] for this therapy evaluation/treatment. SIGNATURE: Lily Johnson [employer] AIDE PATIENT NAME: Sheree Chavez DATE: May 13, 2021 TIME: 9:25 [facility] HNO [facility]: [id number] Author: RT Michael(R) Service: Radiology Author Type: Bilingual Student Tutor Type: Allied Health Filed: 05/12/2021 2:08 PM [...] Michael(R) May 12, 2021 2:08 PM Normal [facility] HNO ID: [id number] Author: RT Melba(R) Service: Radiology Author Type: [...] May 12, 2021 12:[address] [facility] Basic metabolic 2000 panelon 05-12-2021 Anion gap [Moles/Vol] 11 mmol/L Normal 9-18 [facility] Comment on above: Order Comment: Speci men Type: BLOOD SPECIMEN Performed By: #### 1 9123-9, 32041-5, 2776- ####[facility]ORYCLIA [id number] [address] STATES OF [facility] Calcium [Mass/Vol] 8.5 mg/dL Normal 8.5-10.2 [facility] Comment on above: Order Comment: Speci men Type: BLOOD SPECIMEN Performed By: #### 1 9122-9, 13614-2, 2776- ####[facility]ORYCLIA [id number] [address] [place] Chloride [Moles/Vol] 104 mmol/L Normal 97-105 [facility] Comment on above: Order Comment: Speci men Type: BLOOD SPECIMEN Performed By: #### 1 23-9, 54024-3, 2776- ####[facility]ORYCLIA [id number] [address] [place] CO2 [Moles/Vol] 24 mmol/L Normal 22-30 [facility] Comment on above: Order Comment: Speci men Type: BLOOD SPECIMEN Performed By: #### 1 23-9, 41381-9, 2776- ####[facility]ORYCLIA [id number] [place] [address] [place] Creatinine [Mass/Vol] 0.70 mg/dL Normal 0.58-0.96 [facility] Comment on above: Order Comment: Speci men Type: BLOOD SPECIMEN Performed By: #### 1 9123-9, 47439-0, 2776- ####[facility]ORYCLIA [id number] [place] [address] [place] GFR/1.73 sq M.predicted MDRD (S/P/Bld) [Vol rate/Area] mL/min/{1.73_m2} Normal [facility] Comment on above: Order [...] actual GFR. Performed By: #### 1 9123-9, 00719-9, 2776- ####[facility]ORYCLIA [id number] [place] [address] [place] Glucose [Mass/Vol] 146 mg/dL High 74-99 [facility] Comment on above: Order Comment: Speci men Type: BLOOD SPECIMEN Result Comment: The [place] Diabetes Association (ADA) provides guidance for cutoff [...] Standards of Medical Care in Diabetes 2016, [place] [employer]. Diabetes Care. 2016.39(Suppl 1). Performed By: #### 1 9123-9, 22293-4, 2776-07 ####[facility]ORYCLIA [id number] [place] [id number] [place] Potassium [Moles/Vol] 3.8 mmol/L Normal 3.7-5.1 [facility] Comment on above: Order Comment: Speci men Type: BLOOD SPECIMEN Performed By: #### 1 9123-9, 18436-3, 2776- ####[facility]ORYCLIA [id number] [address] Sodium [Moles/Vol] 139 mmol/L Normal 136-144 [facility] Comment on above: Order Comment: Speci men Type: BLOOD SPECIMEN Performed By: #### 1 9123-9, 99804-3, 2776- ####[facility]ORYCLIA [id number] [address] Urea nitrogen [Mass/Vol] 9 mg/dL Normal 7-21 [facility] Comment on above: Order Comment: Speci men Type: BLOOD SPECIMEN Performed By: #### 1 9123-9, 83509-7, 2776-07 ####[facility]ORYCLIA [id number] [address] CALCIUM IONIZED Bon 05-12-20 Calcium.ionized (BldV) [Mass/Vol] 1.12 mmol/L Normal 1.08-1.30 [facility] Comment on above: Order Comment: Speci men Type: BLOOD SPECIMEN Performed By: #### I CA ####[facility]ORYCLIA [id number] [address] Calcium.ionized adjusted to pH 7.4 (Bld) [Moles/Vol] 1.10 mmol/L Normal 1.08-1.30 [facility] Comment on above: Order Comment: Speci men Type: BLOOD SPECIMEN Performed By: #### I CA ####[facility]CLIA [id number] [address] CBC panel Auto (Bld)on 05-12 Erythrocyte distribution width (RBC) [Ratio] 12.0 % Normal 11.5-15.0 [facility] Comment on above: Order Comment: Speci men Type: BLOOD SPECIMEN Performed By: #### 5 8410-2 ####[facility]ORYCLIA [id number] [address] Hematocrit (Bld) [Volume fraction] 38.2 % Normal 36.0-46.0 [facility] Comment on above: Order Comment: Speci men Type: BLOOD SPECIMEN Performed By: #### 5 8410-2 ####[facility]ORYCLIA [id number] [address] Hemoglobin (Bld) [Mass/Vol] 12.4 g/dL Normal 11.5-15.5 [facility] Comment on above: Order Comment: Speci men Type: BLOOD SPECIMEN Performed By: #### 5 8410-2 ####[facility]ORYCLIA [id number] [address] MCH (RBC) [Entitic mass] 30.7 pg Normal 26.0-34.0 [facility] Comment on above: Order Comment: Speci men Type: BLOOD SPECIMEN Performed By: #### 5 8410-2 ####[facility]ORYCLIA [id number] [address] MCHC (RBC) [Mass/Vol] 32.5 g/dL Normal 30.5-36.0 [facility] Comment on above: Order Comment: Speci men Type: BLOOD SPECIMEN Performed By: #### 5 8410-2 ####[facility]ORYCLIA [id number] [address] MCV (RBC) [Entitic vol] 94.6 fL Normal 80.0-100.0 [facility] Comment on above: Order Comment: Speci men Type: BLOOD SPECIMEN Performed By: #### 5 8410-2 ####[facility]ORYCLIA [id number] [address] Nucleated RBC (Bld) [#/Vol] 10*3/uL Normal <0.01 [facility] Comment on above: Order Comment: Speci men Type: BLOOD SPECIMEN Performed By: #### 5 8410-2 ####[facility]ORYCLIA [id number] [address] Platelet mean volume (Bld) [Entitic vol] 8.8 fL Low 9.0-12.7 [facility] Comment on above: Order Comment: Speci men Type: BLOOD SPECIMEN Performed By: #### 5 8410-2 ####[facility]ORYCLIA [id number] [address] OF [facility] Platelets (Bld) [#/Vol] 273 10*3/uL Normal 150-400 [facility] Comment on above: Order Comment: Speci men Type: BLOOD SPECIMEN Performed By: #### 5 8410-2 ####[facility]ORYCLIA [id number] [address] RBC (Bld) [#/Vol] 4.04 10*6/uL Normal 3.90-5.20 [facility] Comment on above: Order Comment: Speci men Type: BLOOD SPECIMEN Performed By: #### 5 8410-2 ####[facility]CLIA [id number] [address] WBC (Bld) [#/Vol] 10.12 10*3/uL Normal 3.70-11.00 [facility] Comment on above: Order Comment: Speci men Type: BLOOD SPECIMEN Performed By: #### 5 8410-2 ####[facility]ORYCLIA [id number] [address] BRAIN WO IVCONon 05-12-[address] BRAIN WO IVCON * * *Final Report* * * DATE OF EXAM: May 12 2021 6:35AM [place] [facility] 0504 - CT BRAIN WO IVCON [...] Reduction 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 Acute change: [...] evidence of new intracranial hemorrhage is identified. Computer Numerical Control Machinist: YUMI Transcribe Date/Time: May 12 2021 6:46A Dictated by : LIONEL LARSON MD This examination was interpreted and the report reviewed and electronically signed by: LIONEL LARSON MD on May 12 2021 6:51AM EST [id number] Normal [facility] CT LUMBAR SPINE WO IVCONon 1 07-12-2020 CT LUMBAR SPINE WO IVCON * * *Final Report* * * DATE OF EXAM: May 12 2021 1:58PM [facility] 0508 - CT LUMBAR SPINE WO [...] level is at the level iliac crests Oxygen Equipment Technician (topogram) images: Moderate degree of arterial calcification [...] Coexisting moderate degree of bilateral foraminal stenosis Computer Numerical Control Machinist: [facility] STERLINGKate Transcribe Date/Time: May 12 2021 2:14P Dictated by : MARIA G GRAHAM MD This examination was interpreted and the report reviewed and electronically signed by: MARIA G GRAHAM MD on May 12 2021 2:28PM EST [id number] Normal [facility] CT PELVIS ORTHO WO IVCONon 1 07-12-2020 CT PELVIS ORTHO WO IVCON * * *Final Report* * * DATE OF EXAM: May 12 2021 5:49AM [facility] 0087 - CT PELVIS ORTHO WO [...] CAM femoroacetabular impingement, right worse than left. Computer Numerical Control Machinist: PSCB Transcribe Date/Time: May 12 2021 7:21A Dictated by : YANA KEENE MD This examination was interpreted and the report reviewed and electronically signed by: YANA KEENE MD on May 12 2021 7:33AM EST [id number] Normal [facility] ED NOTEon 05-12-2021 ED NOTE HNO ID: [id number] Author: Harjit Cosme Service: Emergency Medicine Author Type: Bilingual Student Tutor Type: ED Notes Filed: 05/12/2021 12:41 PM Note Text: [id number]. Rn informed Normal [facility] ED NOTE HNO ID: [id number] Author: Leah Roach RN Service: Emergency Medicine Author Type: Registered Nurse Type: ED Notes Filed: 05/12/2021 6:53 AM Note Text: Trauma team at bedside for update and reassessment of patient. Per team, general surgery and ortho, patient should be able to go to floor other than ICU. Pt will continue to be NPO until recent scans are back and reeval completed. Normal [facility] ED NOTE HNO ID: [id number] Author: Leah Roach RN Service: Emergency Medicine Author Type: Registered Nurse Type: ED Notes Filed: 05/12/2021 4:13 AM Note Text: Pt up with one assist to bedside commode. Pt denies any pain. Pt alert and oriented, no neuro deficits noted. Normal [facility] ED PROV NOTEon 05-12-2021 ED PROV NOTE HNO ID: [id number] Author: Amalia Mathias MD Service: Emergency Medicine [...] for disposition details Amalia Mathias MD 05/11/[address] [facility] Magnesium SerPl-mCncon 05-12 Magnesium [Mass/Vol] 1.6 mg/dL Low 1.7-2.3 [facility] Comment on above: Order Comment: Speci men Type: BLOOD SPECIMEN Performed By: #### 1 9123-9, 03890-7, 2777-1 ####[facility] [id number] [address] [place] Phosphate SerPl-mCncon 05-12 Phosphate [Mass/Vol] 3.9 mg/dL Normal 2.7-4.8 [facility] Comment on above: Order Comment: Speci men Type: BLOOD SPECIMEN Performed By: #### 1 9123-9, 03226-9, 2777- ####[facility]ORYCLIA [id number] [place] [address] [place] SARS-CoV-2 RNA Resp Ql EULALIA+p robeon 05-12-2021 SARS-CoV-2 (COVID-19) RNA EULLAIA+probe Ql (Resp) COVID 19 RESULT: SARS-CoV-2 (Agent of COVID-19) Not Detected by PCR. This test has been authorized by FDA under an Emergency Use Authorization (EUA). Normal [facility] Comment on above: Performed By: #### 9 4500-6 ####[facility]ORYCLIA [id number] [place] [address] [place] STAPH AUREUS PCRon S. aureus and MRSA panel EULALIA+probe (Nose) Normal Negative [facility] Comment on above: Order Comment: Speci men Type: SWAB OF INTERNAL NOSE Result Comment: Nega tive for Staphylococcus aureus by PCR. Negative for MRSA by PCR Performed By: #### S APCR ####[facility]ORYCLIA [id number] [address] TOX SCREEN ROUT URon 021 Amphetamines Confirm (U) [Mass/Vol] Negative Normal Negative [facility] Comment on above: Order Comment: Speci men Type: URINE SPECIMEN Result Comment: Cuto ff threshold at 1000 ng/mL. Performed By: #### U TOX2 ####[facility]ORYCL[facility] [id number] [address] BARBITURATES, URINE Negative Normal Negative [facility] Comment on above: Order Comment: Speci men Type: URINE SPECIMEN Result Comment: Cuto ff threshold at 200 ng/mL. Performed By: #### U TOX2 ####[facility]ORY[facility] [id number] [address] BENZODIAZEPINES, UR Negative Normal Negative [facility] Comment on above: Order Comment: Speci men Type: URINE SPECIMEN Result Comment: Cuto ff threshold at 200 ng/mL. Performed By: #### U TOX2 ####[facility] [id number] [address] CANNABINOIDS,URINE Negative Normal Negative [facility] Comment on above: Order Comment: Speci men Type: URINE SPECIMEN Result Comment: Cuto ff threshold at 50 ng/mL. Performed By: #### U TOX2 ####[facility] [id number] [address] Cocaine Ql (U) Negative Normal Negative [facility] Comment on above: Order Comment: Speci men Type: URINE SPECIMEN Result Comment: Cuto ff threshold at 300 ng/mL. Performed By: #### U TOX2 ####[facility] [id number] [address] OF [facility] Ethanol (U) [Mass/Vol] <11 Normal <11 [facility] Comment on above: Order Comment: Speci men Type: URINE SPECIMEN Performed By: #### U TOX2 ####[facility] [id number] [address] Opiates Screen Ql (U) Negative Normal Negative [facility] Comment on above: Order Comment: Speci men Type: URINE SPECIMEN Result Comment: Cuto ff threshold at 300 ng/mL. Performed By: #### U TOX2 ####[facility]CLIA [id number] [address] oxyCODONE cutoff Screen (U) [Mass/Vol] Negative Normal Negative [facility] Comment on above: Order Comment: Speci men Type: URINE SPECIMEN Result Comment: Cuto ff threshold at 100 ng/mL. Performed By: #### U TOX2 ####[facility]ORY[facility] [id number] [address] Phencyclidine Ql (U) Negative Normal Negative [facility] Comment on above: Order Comment: Speci men Type: URINE SPECIMEN Result Comment: Cuto ff threshold at 25 ng/mL. Performed By: #### U TOX2 ####[facility]IA [id number] [address] XR CERVICAL 2V FLEX/EXTon XR CERVICAL [...] No abnormal subluxation with flexion and extension. Computer Numerical Control Machinist: PSCB Transcribe Date/Time: May 12 2021 3:07P Dictated by : FANNY CAMPOS MD This examination was interpreted and the report reviewed and electronically signed by: FANNY CAMPOS MD on May 12 2021 3:09PM EST [id number] Normal [facility] ALLIED HEALTHon 05-11-2021 ALLIED HEALTH HNO ID: [id number] Author: Chaplain Genesis Service: Spiritual Care Author Type: Brisket Puller Type: Allied Health Filed: 05/11/2021 3:43 PM Note Text: SPIRITUAL CARE PROGRESS NOTE SERVICE DATE: 05/11/2021 SERVICE TIME: 3:30pm Brisket Puller responded to ED page; but no family was present To contact the Spiritual Care Department: Please call . SIGNATURE: Chaplain Genesis PATIENT NAME: Sheree Chavez DATE: May 11, 2021 TIME: 3:42 PM PAGER/CONTACT #: [phone] [facility] CBC panel Auto (Bld)on 05-11 Erythrocyte distribution width (RBC) [Ratio] 11.9 % Normal 11.5-15.0 [facility] Comment on above: Order Comment: Speci men Type: BLOOD SPECIMEN Performed By: #### 5 8410-2 ####[facility]ORYCLIA [id number] [address] STATES OF [facility] Hematocrit (Bld) [Volume fraction] 42.2 % Normal 36.0-46.0 [facility] Comment on above: Order Comment: Speci men Type: BLOOD SPECIMEN Performed By: #### 5 8410-2 ####[facility]ORYCLIA [id number] [address] [place] Hemoglobin (Bld) [Mass/Vol] 13.9 g/dL Normal 11.5-15.5 [facility] Comment on above: Order Comment: Speci men Type: BLOOD SPECIMEN Performed By: #### 5 8410-2 ####[facility]ORYCLIA [id number] [address] [place] MCH (RBC) [Entitic mass] 30.8 pg Normal 26.0-34.0 [facility] Comment on above: Order Comment: Speci men Type: BLOOD SPECIMEN Performed By: #### 5 8410-2 ####[facility]ORYCLIA [id number] [address] MCHC (RBC) [Mass/Vol] 32.9 g/dL Normal 30.5-36.0 [facility] Comment on above: Order Comment: Speci men Type: BLOOD SPECIMEN Performed By: #### 5 8410-2 ####[facility]ORYCLIA [id number] [address] MCV (RBC) [Entitic vol] 93.6 fL Normal 80.0-100.0 [facility] Comment on above: Order Comment: Speci men Type: BLOOD SPECIMEN Performed By: #### 5 8410-2 ####[facility]ORYCLIA [id number] [address] Nucleated RBC (Bld) [#/Vol] 10*3/uL Normal <0.01 [facility] Comment on above: Order Comment: Speci men Type: BLOOD SPECIMEN Performed By: #### 5 8410-2 ####[facility]ORYCLIA [id number] [address] Platelet mean volume (Bld) [Entitic vol] 8.9 fL Low 9.0-12.7 [facility] Comment on above: Order Comment: Speci men Type: BLOOD SPECIMEN Performed By: #### 5 8410-2 ####[facility]ORYCLIA [id number] [address] Platelets (Bld) [#/Vol] 317 10*3/uL Normal 150-400 [facility] Comment on above: Order Comment: Speci men Type: BLOOD SPECIMEN Performed By: #### 5 8410-2 ####[facility]ORYCLIA [id number] [address] RBC (Bld) [#/Vol] 4.51 10*6/uL Normal 3.90-5.20 [facility] Comment on above: Order Comment: Speci men Type: BLOOD SPECIMEN Performed By: #### 5 8410-2 ####[facility]ORYCLIA [id number] [address] OF [facility] WBC (Bld) [#/Vol] 13.23 10*3/uL High 3.70-11.00 [facility] Comment on above: Order Comment: Speci men Type: BLOOD SPECIMEN Performed By: #### 5 8410-2 ####[facility]ORYCLIA [id number] [address] CONSULTon 05-11-2021 CONSULT HNO ID: [id number] Author: Lane Flores MD Service: Orthopaedic Surgery Author Type: Physician Type: Consults Filed: 05/12/2021 11:54 AM Note Text: ORTHOPAEDIC SURGERY CONSULT Pt: SHEREE CHAVEZ Date of Consultation: 05/11/2021 Physician Consulted: Dr. Flores Reason for Consultation: R hip pain, concern for occult hip fracture HPI: 75 year old female presented to [facility] as a trauma transfer after sustaining a [...] daily. - Blood-Glucose Meter (FREESTYLE LITE METER) [facility] monitoring kit 1 Each. Freestyle LITE Meter [...] 05/11/2021 (more content not included)... Normal [facility] CONSULT HNO ID: [id number] Author: Bridgett Guerrero PA-C Service: Neurosurgery Author Type: Physician Engineering Agent Type: Consults Filed: 05/11/2021 5:26 PM Note [...] brought her to [facility], then transferred to [facility]. She is currently awake and alert and [...] onc (more content not included)... Normal [facility] CONSULT HNO ID: [id number] Author: Nicolas Donald MD Service: General Surgery [...] subdural (more content not included)... Normal [facility] CT BRAIN WO IVCONon 05-11-[address] BRAIN WO IVCON * * *Final Report* * * DATE OF EXAM: May 11 2021 3:47PM [facility] 0504 - CT BRAIN WO IVCON [...] and C6-7. No significant bony foraminal stenosis Oxygen Equipment Technician (topogram) images: No additional findings. IMPRESSION: Stable bilateral subarachnoid and subdural hemorrhage. No new findings. No acute findings in the cervical spine. Degenerative changes. Anatomic Variant: None. Assume 7 cervical vertebrae with counting from the craniocervical junction. Computer Numerical Control Machinist: PSCB Transcribe Date/Time: May 11 2021 4:06P Dictated by : CHRISYS CAMACHO MD This examination was interpreted and the report reviewed and electronically signed by: CHRISSY CAMACHO MD on May 11 2021 4:14PM EST [id number] Normal [facility] CT CERVICAL SPINE WO IVCONon 05-11-2021 CT CERVICAL SPINE WO IVCON * * *Final Report* * * DATE OF EXAM: May 11 2021 3:47PM [facility] 0505 - CT CERVICAL SPINE WO [...] and C6-7. No significant bony foraminal stenosis Oxygen Equipment Technician (topogram) images: No additional findings. IMPRESSION: Stable bilateral subarachnoid and subdural hemorrhage. No new findings. No acute findings in the cervical spine. Degenerative changes. Anatomic Variant: None. Assume 7 cervical vertebrae with counting from the craniocervical junction. Computer Numerical Control Machinist: YUMI Transcribe Date/Time: May 11 2021 4:06P Dictated by : CHRISSY CAMACHO MD This examination was interpreted and the report reviewed and electronically signed by: CHRISSY CAMACHO MD on May 11 2021 4:14PM EST [id number] Normal [facility] Comprehensive metabolic 2000 panelon 05-11-2021 Albumin [Mass/Vol] 4.4 g/dL Normal 3.9-4.9 [facility] Comment on above: Order Comment: Speci men Type: BLOOD SPECIMEN Performed By: #### 2 4323-8, 3040-3 ####[facility]ORYCLIA [id number] [address] ALP [Catalytic activity/Vol] 31 U/L Low 34-123 [facility] Comment on above: Order Comment: Speci men Type: BLOOD SPECIMEN Performed By: #### 2 4323-8, 3040-3 ####[facility] [id number] [address] STATES [facility] ALT With P-5'-P [Catalytic activity/Vol] 22 U/L Normal 7-38 [facility] Comment on above: Order Comment: Speci men Type: BLOOD SPECIMEN Performed By: #### 2 4323-8, 3040-3 ####[facility]ORYCLIA [id number] [place], [place] [address] [place] [address] Anion gap [Moles/Vol] 14 mmol/L Normal 9-18 [facility] Comment on above: Order Comment: Speci men Type: BLOOD SPECIMEN Performed By: #### 2 4323-8, 3040-3 ####[facility] [id number] [address] STATES [facility] AST With P-5'-P [Catalytic activity/Vol] 20 U/L Normal 13-35 [facility] Comment on above: Order Comment: Speci men Type: BLOOD SPECIMEN Performed By: #### 2 4323-8, 3040-3 ####[facility]IA [id number] [address] Bilirubin [Mass/Vol] 0.3 mg/dL Normal 0.2-1.3 [facility] Comment on above: Order Comment: Speci men Type: BLOOD SPECIMEN Performed By: #### 2 4323-8, 3040-3 ####[facility]ORYCLIA [id number] [address] STATES OF [facility] Calcium [Mass/Vol] 9.5 mg/dL Normal 8.5-10.2 [facility] Comment on above: Order Comment: Speci men Type: BLOOD SPECIMEN Performed By: #### 2 4323-8, 0-3 ####[facility]ORYCLIA [id number] [address] STATES OF [facility] Chloride [Moles/Vol] 99 mmol/L Normal 97-105 [facility] Comment on above: Order Comment: Speci men Type: BLOOD SPECIMEN Performed By: #### 2 4323-8, 3039-3 ####[facility]ORYCLIA [id number] [address] [place] CO2 [Moles/Vol] 24 mmol/L Normal 22-30 [facility] Comment on above: Order Comment: Speci men Type: BLOOD SPECIMEN Performed By: #### 2 4323-8, 0-3 ####[facility]ORYCLIA [id number] [address] STATES OF [facility] Creatinine [Mass/Vol] 0.73 mg/dL Normal 0.58-0.96 [facility] Comment on above: Order Comment: Speci men Type: BLOOD SPECIMEN Performed By: #### 2 4323-8, 0-3 ####[facility]ORYCLIA [id number] [address] [place] GFR/1.73 sq M.predicted MDRD (S/P/Bld) [Vol rate/Area] mL/min/{1.73_m2} Normal [facility] Comment on above: Order [...] GFR. Performed By: #### 2 4323-8, 3039-3 ####[facility]ORYCLIA [id number] [place] [address] [place] Glucose [Mass/Vol] 125 mg/dL High 74-99 [facility] Comment on above: Order Comment: Speci men Type: BLOOD SPECIMEN Result Comment: The [place] Diabetes Association (ADA) provides guidance for cutoff [...] Standards of Medical Care in Diabetes 2016, [place] [employer] Association. Diabetes Care. 2016.39(Suppl 1). Performed By: #### 2 4323-8, 3 ####[facility]ORYCLIA [id number] [place] [address] [place] Potassium [Moles/Vol] 4.0 mmol/L Normal 3.7-5.1 [facility] Comment on above: Order Comment: Speci men Type: BLOOD SPECIMEN Performed By: #### 2 4323-8, 3039-3 ####[facility]ORYCLIA [id number] [place] [address] [place] Protein [Mass/Vol] 7.5 g/dL Normal 6.3-8.0 [facility] Comment on above: Order Comment: Speci men Type: BLOOD SPECIMEN Performed By: #### 2 4323-8, 3040-3 ####[facility] [id number] [address] Sodium [Moles/Vol] 137 mmol/L Normal 136-144 [facility] Comment on above: Order Comment: Speci men Type: BLOOD SPECIMEN Performed By: #### 2 4323-8, 3040-3 ####[facility]IA [id number] [address] Urea nitrogen [Mass/Vol] 10 mg/dL Normal 7-21 [facility] Comment on above: Order Comment: Speci men Type: BLOOD SPECIMEN Performed By: #### 2 4323-8, 3040-3 ####[facility] [id number] [address] ED NOTEon 05-11-2021 ED NOTE HNO ID: [id number] Author: Jocelyn Austin Service: ? Author Type: Dental Assistant Instructor and Bilingual Student Tutor Type: ED Notes Filed: 05/11/2021 3:26 PM Note Text: Bed: [address] [place] [address] Expected date: Expected time: Means of arrival: CC Critical Care Ground Comments: [place] transfer trauma [address] [facility] ED PROV NOTEon 05-11-2021 ED PROV NOTE HNO ID: [id number] Author: Eze James MD Service: Emergency Medicine [...] as a trauma level 2 transfer from [place] for intracranial bleeding after mechanical fall. Patient fell from a stepstool backwards hitting her head on the ground. She was evaluated at [facility] and was found [...] to (more content not included)... Normal [facility] Ethanol SerPl-mCncon 021 Ethanol [Mass/Vol] mg/dL Normal <11 [facility] Comment on above: Order Comment: Speci men Type: BLOOD SPECIMEN Performed By: #### 5 643-2 ####[facility]ORYCLIA [id number] [address] [place] HISTORY PHYSICALon HISTORY PHYSICAL HNO ID: [id number] Author: Chacho Ocampo MD Service: General Surgery [...] Date(s) Administered COVID-19 vaccine, age 12+ yr ([employer]) 08/16/2020 09/07/2020 04/08/2021 H1N1 Influenza 05/17/2009 Influenza [...] crep (more content not included)... Normal [facility] Lipase SerPl-cCncon 05-11-20 21 Lipase [Catalytic activity/Vol] 36 U/L Normal 16-61 [facility] Comment on above: Order Comment: Speci men Type: BLOOD SPECIMEN Performed By: #### 2 4323-8, 3040-3 ####[facility]ORYCLIA [id number] [place] [address] [place] PT panel Coag (PPP)on 2020 INR Coag (PPP) [Relative time] 1.0 {INR} Normal 0.9-1.3 [facility] Comment on above: Order Comment: Speci men Type: BLOOD SPECIMEN Result Comment: Alisha min K Antagonist (VKA) Therapeutic Range: INR 2 to 3 (Target INR of 2.5) Note: For patients treated with VKA drugs, such as warfarin, the [place] [employer] 2012 Guideline recommends [...] Chest 2012, 141:7S-47S Michele RA, et al. [facility] 2017, 70: 252-289 Performed By: #### 3 4528-0, 91698-7 ####[facility]ORYCLIA [id number] [address] PT Coag (PPP) [Time] 10.9 s Normal 9.7-13.0 [facility] Comment on above: Order Comment: Speci men Type: BLOOD SPECIMEN Performed By: #### 3 4528-0, 73644-2 ####[facility]ORYCLIA [id number] [address] TYPE AND SCREENon 05-11-[address] [facility] Comment on above: Order Comment: Speci men Type: BLOOD SPECIMEN Performed By: #### T SCR #### [facility] CLIA [id number] [address] HISTORICAL AB SCR STATUS Negative [facility] Comment on above: Order Comment: Speci men Type: BLOOD SPECIMEN Performed By: #### T SCR #### [facility] CLIA [id number] [address] Rh Nom (Bld) Positive Normal [facility] Comment on above: Order Comment: Speci men Type: BLOOD SPECIMEN Performed By: #### T SCR #### [facility] CLIA [id number] [address] TYPE AND SCREEN EXPIRATION 05/14/2021 23:[address] [facility] Comment on above: Order Comment: Speci men Type: BLOOD SPECIMEN Performed By: #### T SCR #### [facility] CLIA [id number] [address] OF [facility] aPTT PPPon 05-11-2021 aPTT Coag (PPP) [Time] 27.1 s Normal 23.0-32.4 [facility] Comment on above: Order Comment: Speci men Type: BLOOD SPECIMEN Performed By: #### 3 4528-0, 41166-3 ####[facility]ORYCLIA [id number] [place] [id number] [facility] Vital Signs Date Time Vital Sign Value Performing Clinician Facility 09-23-2024 09:12-0400 Body mass index (BMI) [Ratio] 31.68 kg/m2 Silvia Vazquez APRN.INTERIOR DESIGN PROFESSIONAL Work Phone: [facility] 09-23-2024 09:12-0400 Body weight 76.4 kg Silvia Vazquez APRN.INTERIOR DESIGN PROFESSIONAL Work Phone: [facility] 09-23-2024 09:12-0400 Diastolic blood pressure 70 mm[Hg] Silvia Vazquez REGIONAL RETAIL SALES MANAGER.INTERIOR DESIGN PROFESSIONAL Work Phone: [facility] 09-23-2024 09:12-0400 Heart rate 85 /min Silvia Vazquez APRN.INTERIOR DESIGN PROFESSIONAL Work Phone: [facility] 09-23-2024 09:12-0400 Respiratory rate 16 /min Silvia Vazquez REGIONAL RETAIL SALES MANAGER.INTERIOR DESIGN PROFESSIONAL Work Phone: [facility] 09-23-2024 09:12-0400 SaO2% (BldA) [Mass fraction] 96 % Silvia Vazquez REGIONAL RETAIL SALES MANAGER.INTERIOR DESIGN PROFESSIONAL Work Phone: [facility] 09-23-2024 09:12-0400 Systolic blood pressure 110 mm[Hg] Silvia Vazquez APRN.INTERIOR DESIGN PROFESSIONAL Work Phone: [facility] 06-17-2024 09:52-0500 Body height 155.3 cm Silvia Vazquez APRN.INTERIOR DESIGN PROFESSIONAL Work Phone: [facility] 06-17-2024 09:52-0500 Body mass index (BMI) [Ratio] 32.59 kg/m2 Silvia Tannhof [facility] RETAIL SALES MANAGER.INTERIOR DESIGN PROFESSIONAL Work Phone: [facility] 06-17-2024 09:52-0500 Body weight 78.6 kg Silvia Tannhof REGIONAL RETAIL SALES MANAGER.INTERIOR DESIGN PROFESSIONAL Work Phone: [facility] 06-17-2024 09:52-0500 Diastolic blood pressure 70 mm[Hg] Silvia Tannhof REGIONAL RETAIL SALES MANAGER.INTERIOR DESIGN PROFESSIONAL Work Phone: [facility] 06-17-2024 09:52-0500 Heart rate 87 /min Silvia Tannhof REGIONAL RETAIL SALES MANAGER.INTERIOR DESIGN PROFESSIONAL Work Phone: [facility] 06-17-2024 09:52-0500 Respiratory rate 16 /min Silvia Tannhof REGIONAL RETAIL SALES MANAGER.INTERIOR DESIGN PROFESSIONAL Work Phone: [facility] 06-17-2024 09:52-0500 SaO2% (BldA) [Mass fraction] 98 % Silvia Tannhof REGIONAL RETAIL SALES MANAGER.INTERIOR DESIGN PROFESSIONAL Work Phone: [facility] 06-17-2024 09:52-0500 Systolic blood pressure 100 mm[Hg] Silvia Tannhof REGIONAL RETAIL SALES MANAGER.INTERIOR DESIGN PROFESSIONAL Work Phone: [facility] 04-29-2023 10:38-0400 Body height 153.3 cm Silvia Tannhof REGIONAL RETAIL SALES MANAGER.INTERIOR DESIGN PROFESSIONAL Work Phone: [facility] 04-29-2023 10:38-0400 Body weight 79.38 kg Silvia Tannhof REGIONAL RETAIL SALES MANAGER.INTERIOR DESIGN PROFESSIONAL Work Phone: [facility] 04-29-2023 10:38-0400 Diastolic blood pressure 70 mm[Hg] Silvia Tannhof REGIONAL RETAIL SALES MANAGER.INTERIOR DESIGN PROFESSIONAL Work Phone: [facility] 04-29-2023 10:38-0400 Heart rate 105 /min Silvia Tannhof REGIONAL RETAIL SALES MANAGER.INTERIOR DESIGN PROFESSIONAL Work Phone: [facility] 04-29-2023 10:38-0400 Respiratory rate 16 /min Silvia Tannhof REGIONAL RETAIL SALES MANAGER.INTERIOR DESIGN PROFESSIONAL Work Phone: [facility] 04-29-2023 10:38-0400 SaO2% (BldA) [Mass fraction] 97 % Silvia Vazquez REGIONAL RETAIL SALES MANAGER.INTERIOR DESIGN PROFESSIONAL Work Phone: [facility] 04-29-2023 10:38-0400 Systolic blood pressure 100 mm[Hg] Silvia Vazquez REGIONAL RETAIL SALES MANAGER.INTERIOR DESIGN PROFESSIONAL Work Phone: [facility] 04-22-2023 11:54-0400 Body temperature 97.39 [degF] Spencer John REGIONAL RETAIL SALES MANAGER.INTERIOR DESIGN PROFESSIONAL Work Phone: [facility] 04-22-2023 11:54-0400 Body weight 79.83 kg Spencer John REGIONAL RETAIL SALES MANAGER.INTERIOR DESIGN PROFESSIONAL Work Phone: [facility] 04-22-2023 11:54-0400 Diastolic blood pressure 80 mm[Hg] Spencer John REGIONAL RETAIL SALES MANAGER.INTERIOR DESIGN PROFESSIONAL Work Phone: [facility] 04-22-2023 11:54-0400 Heart rate 88 /min Spencer John REGIONAL RETAIL SALES MANAGER.INTERIOR DESIGN PROFESSIONAL Work Phone: [facility] 04-22-2023 11:54-0400 Respiratory rate 16 /min Spencer John REGIONAL RETAIL SALES MANAGER.INTERIOR DESIGN PROFESSIONAL Work Phone: [facility] 04-22-2023 11:54-0400 SaO2% (BldA) [Mass fraction] 97 % Spencer John REGIONAL RETAIL SALES MANAGER.INTERIOR DESIGN PROFESSIONAL Work Phone: [facility] 04-22-2023 11:54-0400 Systolic blood pressure 138 mm[Hg] Spencer John REGIONAL RETAIL SALES MANAGER.INTERIOR DESIGN PROFESSIONAL Work Phone: [facility] 04-19-2023 20:21-0400 Body temperature 96.3 [degF] Dr. Deirdre Quiñones Work Phone: [facility] 04-19-2023 20:21-0400 Diastolic blood pressure 65 mm[Hg] Dr. Deirdre Quiñones Work Phone: [facility] 04-19-2023 20:21-0400 Heart rate 107 /min Dr. Deirdre Quiñones Work Phone: [facility] 04-19-2023 20:21-0400 Respiratory rate 18 /min Dr. Deirdre Quiñones Work Phone: [facility] 04-19-2023 20:21-0400 SaO2% (BldA) [Mass fraction] 98 % Dr. Deirdre Quiñones Work Phone: [facility] 04-19-2023 20:21-0400 Systolic blood pressure 102 mm[Hg] Dr. Deirdre Quiñones Work Phone: [facility] 04-19-2023 20:16-0400 Body height 157.[address] Deirdre Quiñones Work Phone: [facility] 04-19-2023 20:16-0400 Body mass index (BMI) [Ratio] 31.7 kg/m2 Dr. Deirdre Quiñones Work Phone: [facility] 04-19-2023 20:16-0400 Body weight 78.[address] Deirdre Quiñones Work Phone: [facility] 04-19-2023 19:52-0400 Body temperature 97.7 [degF] Maura Morillo APRN.INTERIOR DESIGN PROFESSIONAL Work Phone: [facility] 04-19-2023 19:52-0400 Body weight 79.56 kg Maura Morillo APRN.INTERIOR DESIGN PROFESSIONAL Work Phone: [facility] 04-19-2023 19:52-0400 Diastolic blood pressure 72 mm[Hg] Maura Morillo APRN.INTERIOR DESIGN PROFESSIONAL Work Phone: [facility] 04-19-2023 19:52-0400 Heart rate 104 /min Maura Morillo APRN.INTERIOR DESIGN PROFESSIONAL Work Phone: [facility] 04-19-2023 19:52-0400 Respiratory rate 24 /min Maura Morillo APRN.INTERIOR DESIGN PROFESSIONAL Work Phone: [facility] 04-19-2023 19:52-0400 SaO2% (BldA) [Mass fraction] 98 % Maura Morillo APRN.INTERIOR DESIGN PROFESSIONAL Work Phone: [facility] 04-19-2023 19:52-0400 Systolic blood pressure 134 mm[Hg] Maura Morillo REGIONAL RETAIL SALES MANAGER.INTERIOR DESIGN PROFESSIONAL Work Phone: [facility] 02-23-2023 00:03-0400 Diastolic blood pressure 91 mm[Hg] [facility] 02-23-2023 00:03-0400 Heart rate 71 /min [facility] 02-23-2023 00:03-0400 Respiratory rate 18 /min [facility] 02-23-2023 00:03-0400 SaO2% (BldA) [Mass fraction] 99 % [facility] 02-23-2023 00:03-0400 Systolic blood pressure 172 mm[Hg] [facility] 02-22-2023 22:11-0400 Body mass index (BMI) [Ratio] 33.8 kg/m2 [facility] 02-22-2023 22:11-0400 Body weight 83.9 kg [facility] 02-22-2023 21:06-0400 Body height 157.48 cm [facility] 02-22-2023 21:06-0400 Body temperature 97.8 [degF] [facility] 11-22-2022 08:26-0400 Body temperature 95.3 [degF] [facility] 11-22-2022 08:26-0400 Diastolic blood pressure 93 mm[Hg] [facility] 11-22-2022 08:26-0400 Heart rate 78 /min [facility] 11-22-2022 08:26-0400 Respiratory rate 16 /min [facility] 11-22-2022 08:26-0400 SaO2% (BldA) [Mass fraction] 99 % [facility] 11-22-2022 08:26-0400 Systolic blood pressure 145 mm[Hg] [facility] 06-27-2022 09:12-0500 Body weight 80.74 kg Silvia Vazquez REGIONAL RETAIL SALES MANAGER.INTERIOR DESIGN PROFESSIONAL Work Phone: [facility] 06-27-2022 09:12-0500 Diastolic blood pressure 98 mm[Hg] Silvia Vazquez REGIONAL RETAIL SALES MANAGER.INTERIOR DESIGN PROFESSIONAL Work Phone: [facility] 06-27-2022 09:12-0500 Heart rate 92 /min Silvia Goodwinhof REGIONAL RETAIL SALES MANAGER.INTERIOR DESIGN PROFESSIONAL Work Phone: [facility] 06-27-2022 09:12-0500 Respiratory rate 20 /min Silvia Goodwinhojuan pablo REGIONAL RETAIL SALES MANAGER.INTERIOR DESIGN PROFESSIONAL Work Phone: [facility] 06-27-2022 09:12-0500 SaO2% (BldA) [Mass fraction] 98 % Silvia Goodwinhof REGIONAL RETAIL SALES MANAGER.INTERIOR DESIGN PROFESSIONAL Work Phone: [facility] 06-27-2022 09:12-0500 Systolic blood pressure 150 mm[Hg] Silvia Goodwinhojuan pablo REGIONAL RETAIL SALES MANAGER.INTERIOR DESIGN PROFESSIONAL Work Phone: [facility] 04-05-2022 09:33-0400 Body weight 81.28 kg Deirdre Quiñones MD Work Phone: [facility] 04-05-2022 09:33-0400 Diastolic blood pressure 74 mm[Hg] Deirdre Quiñones MD Work Phone: [facility] 04-05-2022 09:33-0400 Heart rate 68 /min Deirdre Quiñones MD Work Phone: [facility] 04-05-2022 09:33-0400 Respiratory rate 16 /min Deirdre Quiñones MD Work Phone: [facility] 04-05-2022 09:33-0400 Systolic blood pressure 122 mm[Hg] Deirdre Quiñones MD Work Phone: [facility] 11-16-2021 12:45-0400 Body temperature 97.39 [degF] Maura Morillo APRN.INTERIOR DESIGN PROFESSIONAL Work Phone: [facility] 11-16-2021 12:45-0400 Body weight 82.1 kg Maura Morillo APRN.INTERIOR DESIGN PROFESSIONAL Work Phone: [facility] 11-16-2021 12:45-0400 Diastolic blood pressure 74 mm[Hg] Maura Morillo APRN.INTERIOR DESIGN PROFESSIONAL Work Phone: [facility] 11-16-2021 12:45-0400 Heart rate 85 /min Maura Morillo APRN.INTERIOR DESIGN PROFESSIONAL Work Phone: [facility] 11-16-2021 12:45-0400 Respiratory rate 21 /min Maura Morillo APRN.INTERIOR DESIGN PROFESSIONAL Work Phone: [facility] 11-16-2021 12:45-0400 SaO2% (BldA) [Mass fraction] 97 % Maura Morillo APRN.INTERIOR DESIGN PROFESSIONAL Work Phone: [facility] 11-16-2021 12:45-0400 Systolic blood pressure 124 mm[Hg] Maura Morillo APRN.INTERIOR DESIGN PROFESSIONAL Work Phone: [facility] 09-26-2021 10:16-0400 Body height 157.5 cm Deirdre Quiñones MD Work Phone: [facility] 09-26-2021 10:16-0400 Body weight 81.92 kg Deirdre Quiñones MD Work Phone: [facility] 09-26-2021 10:16-0400 Diastolic blood pressure 70 mm[Hg] Deirdre Quiñones MD Work Phone: [facility] 09-26-2021 10:16-0400 Heart rate 66 /min Deirdre Quiñones MD Work Phone: [facility] 09-26-2021 10:16-0400 Respiratory rate 16 /min Deirdre Quiñones MD Work Phone: [facility] 09-26-2021 10:16-0400 Systolic blood pressure 124 mm[Hg] Deirdre Quiñones MD Work Phone: [facility] Encounters Encounter Date Encounter Type Care Provider Facility Start: 03-12-2025 End: 03-12-2025 Refill Deirdre Quiñones MD Work Phone: [facility] Comment on above: Refill Request Start: 01-19-2025 End: 01-19-2025 Refill Deirdre Quiñones MD Work Phone: [facility] [place] Comment on above: Refill Request Start: 12-09-2024 End: 12-09-2024 ambulatory Denise Edward RN [employer] Comment on above: Nurse Care Coordinat or Outreach Start: 12-09-2024 End: 12-09-2024 E-mail encounter from caregiver Denise Edward RN [employer] Start: 12-03-2024 End: 12-03-2024 ambulatory Deirdre Quiñones MD Work Phone: [facility] Start: 12-01-2024 End: 12-01-2024 Telephone encounter Deirdre Quiñones MD Work Phone: [facility] [place] Comment on above: Insurance Authorizat ion Start: 11-29-2024 End: 12-01-2024 Refill Jay Saravanan REGIONAL RETAIL SALES MANAGER.INTERIOR DESIGN PROFESSIONAL Work Phone: [facility] [place] Comment on above: Refill Request Start: 11-20-2024 End: 11-20-2024 ambulatory Denise Edward RN [employer] Comment on above: Nurse Care Coordinat or Outreach Start: 11-20-2024 End: 11-20-2024 E-mail encounter from caregiver Denise Edward RN [employer] Start: 11-06-2024 End: 11-06-2024 ambulatory Denise Edward RN [employer] Comment on above: Nurse Care Coordinat or Outreach Start: 11-06-2024 End: 11-06-2024 E-mail encounter from caregiver Denise Edward RN [employer] Start: 10-23-2024 End: 10-23-2024 ambulatory Denise Edward RN [employer] Comment on above: Bi-Weekly Outreach ( Recurring) for Chronic Disease Management Start: 10-19-2024 End: 10-19-2024 Refill Jay Saravanan REGIONAL RETAIL SALES MANAGER.INTERIOR DESIGN PROFESSIONAL Work Phone: [facility] [place] Comment on above: Refill Request Start: 10-14-2024 End: 11-11-2024 Telephone encounter Nuha [facility] Comment on above: New Primary Care Pha rmacy Appt. Start: 10-13-2024 End: 10-13-2024 ambulatory Mesfin Callahan [facility] Work Phone: Pharmacy Medicine Start: 10-13-2024 End: 10-13-2024 Coordination of care plan Mesfinsarah Callahan [facility] Work Phone: Pharmacy Medicine Comment on above: Care Coordination (R eferred to Pharmacy for Diabetes Management) Start: 10-12-2024 End: 10-12-2024 ambulatory Denise Edward RN [employer] Comment on above: Nurse Care Coordinat or Outreach Start: 10-12-2024 End: 10-12-2024 E-mail encounter from caregiver Denise Edward RN [employer] Start: 09-25-2024 End: 09-25-2024 Refill Deirdre Quiñones MD Work Phone: [facility] [place] Comment on above: Refill Request Nurse Care Coordinat or Outreach Start: 09-24-2024 End: 09-24-2024 ambulatory Scarlett Stone MA [facility] [place] Start: 09-24-2024 End: 09-24-2024 Patient encounter procedure Scarlett Stone MA [facility] Comment on above: Population Health Na vigation Outreach (jackelin dhaliwal) Start: 09-23-2024 End: 09-23-2024 Office outpatient visit 25 minutes Silvia Vazquez APRN.CNP Work Phone: [facility] Comment on above: Type 2 diabetes radha itus without complication, without long- term current use of insulin (HCC) (Primary Dx); Sciatica, right side; Hypothyroidism, unspecified type; Anxiety state; Asthma due to seasonal allergies; Mixed hyperlipidemia; Smoking Start: 09-23-2024 End: 09-23-2024 ambulatory [facility] Facility:[facility] Start: 09-21-2024 End: 09-21-2024 ambulatory [facility] Facility:[facility] Start: 09-11-2024 End: 09-11-2024 ambulatory Denise Edward RN [employer] Comment on above: CDM (Enrollment outr each) Initial enrollment outreach for Chronic Disease Management Start: 08-21-2024 End: 08-21-2024 ambulatory Bonnie Tucker MA [facility] [place] Start: 08-21-2024 End: 08-21-2024 Patient encounter procedure Bonnie Tucker MA [facility] Comment on above: Population Health Na vigation Outreach ([employer] High Risk - Attempt 1) Start: 07-21-2024 End: 07-22-2024 Refill Deirdre Quiñones MD Work Phone: [facility] [place] Comment on above: Refill Request Start: 06-17-2024 End: 06-17-2024 ambulatory SILVIA YOUSIFE TAYLOR Facility:[facility] Start: 06-17-2024 End: 06-17-2024 Patient encounter procedure Silvia Vazquez APRN.INTERIOR DESIGN PROFESSIONAL Work Phone: [facility] [place] Comment on above: Medicare annual well ness visit, subsequent (Primary Dx); Sciatica, right side; Acute pain of left knee; Type 2 diabetes mellitus without complication, without long-term current use of insulin (HCC); Hypothyroidism, unspecified type; Asthma due to seasonal allergies; Anxiety state; Smoking; Screening for depression Start: 06-16-2024 End: 06-16-2024 ambulatory DEIRDRE QUIÑONES Facility:[facility] Start: 05-18-2024 End: 05-18-2024 Refill Jay Tran APRN.INTERIOR DESIGN PROFESSIONAL Work Phone: [facility] [place] Comment on above: Refill Request Start: 04-24-2024 End: 04-24-2024 Refill Deirdre Quiñones MD Work Phone: [facility] [place] Comment on above: Refill Request Start: 04-20-2024 End: 04-20-2024 Refill Silvia Vazquez APRN.INTERIOR DESIGN PROFESSIONAL Work Phone: [facility] [place] Comment on above: Refill Request Start: 01-17-2024 Refill Deirdre stephen MD Work Phone: [facility] [place] Comment on above: Refill Request Start: 10-22-2023 Refill Jay BOGGS RN.INTERIOR DESIGN PROFESSIONAL Work Phone: [facility] [place] Comment on above: Refill Request Start: 04-29-2023 End: 04-29-2023 Patient encounter procedure Silvia Vazquez APRN.INTERIOR DESIGN PROFESSIONAL Work Phone: [facility] Comment on above: Medicare annual well ness visit, initial (Primary Dx); Type 2 diabetes mellitus without complication, without long-term current use of insulin (HCC); Hypertension, unspecified type; Mixed hyperlipidemia; Anxiety state; Hypothyroidism, unspecified type; History of COVID-19 Start: 04-24-2023 Refill Deirdre stephen MD Work Phone: [facility] Comment on above: Refill Request Start: 04-22-2023 End: 04-22-2023 Patient encounter procedure Spencer Lopez APRN.INTERIOR DESIGN PROFESSIONAL Work Phone: [facility] Comment on above: Closed fracture of o ne rib of left side, initial encounter (Primary Dx); Rib injury Start: 04-22-2023 End: 04-22-2023 Subsequent hospital visit by physician Xr [facility] Work Phone: Radiology Comment on above: Rib injury [S29.9XXA ] Start: 04-19-2023 End: 04-19-2023 Emergency department patient visit Dr. Deirdre Quiñones Work Phone: [facility] Work Phone: Start: 04-19-2023 End: 04-19-2023 Patient encounter procedure Maura Morillo APRN.INTERIOR DESIGN PROFESSIONAL Work Phone: [facility] Comment on above: Chest tightness (Helene josie Dx) Start: 04-19-2023 ambulatory Yolis Camarillo RN [facility] Start: 04-19-2023 Follow-up encounter Yolis meléndez RN NURSE MINISTER Comment on above: Covid Positive; Foll ow Up For Start: 04-19-2023 Refill Jay BOGGS RN.INTERIOR DESIGN PROFESSIONAL Work Phone: [facility] Comment on above: Refill Request Start: 04-18-2023 Telephone encounter Deirdre coulter MD Work Phone: [facility] Comment on above: Patient Update Start: 03-06-2023 End: 03-06-[address] Deirdre Quiñones Work Phone: [facility] Work Phone: Start: 02-22-2023 End: 02-23-2023 Emergency department patient visit Deirdre Radhadeangelo Facility:[facility] Start: 02-22-2023 End: 02-23-2023 Emergency department patient visit [facility] Work Phone: Start: 02-05-2023 ambulatory Sheree Blanca (Ps s) [facility] [place] Comment on above: Population Health Na vigation Outreach ([facility] [facility]) Start: 01-21-2023 Refill Deirdre stephen MD Work Phone: [facility] [place] Comment on above: Refill Request Start: 01-21-2023 Refill Silvia Vazquez APRN.INTERIOR DESIGN PROFESSIONAL Work Phone: [facility] [place] Comment on above: Refill Request Start: 12-11-2022 ambulatory Sheree Blanca (Ps s) [facility] [place] Comment on above: Population Health Na vigation Outreach ([facility] [facility]) Start: 12-04-2022 Telephone encounter Deirdre coulter MD Work Phone: [facility] [place] Comment on above: Medication Problem Start: 11-22-2022 End: 11-22-2022 Subsequent hospital visit by physician Xr [facility] Work Phone: Radiology Comment on above: Acute hip pain, righ t [M25.551] Start: 11-22-2022 End: 11-22-2022 Emergency department patient visit Say Mauricio Facility:[facility] Start: 11-22-2022 End: 11-22-2022 Emergency department patient visit [facility] Work Phone: Start: 11-02-2022 Refill Jay BOGGS RN.INTERIOR DESIGN PROFESSIONAL Work Phone: [facility] [place] Comment on above: Refill Request Start: 10-21-2022 Refill Deirdre stephen MD Work Phone: [facility] [place] Comment on above: Refill Request Start: 10-21-2022 Refill Jay BOGGS RN.INTERIOR DESIGN PROFESSIONAL Work Phone: [facility] Comment on above: Refill Request Start: 10-04-2022 Telephone encounter Deirdre coulter MD Work Phone: [facility] Comment on above: Trulicity PA Start: 09-25-2022 Refill Jay BOGGS RN.INTERIOR DESIGN PROFESSIONAL Work Phone: [facility] Comment on above: Refill Request Start: 09-24-2022 Telephone encounter Deirdre coulter MD Work Phone: [facility] Comment on above: handicap placard req uest Start: 09-17-2022 Refill Jay BOGGS RN.INTERIOR DESIGN PROFESSIONAL Work Phone: [facility] Comment on above: Refill Request Start: 08-30-2022 Refill Silvia Vazquez APRN.INTERIOR DESIGN PROFESSIONAL Work Phone: [facility] [place] Comment on above: Refill Request Start: 08-16-2022 Telephone encounter Deirdre coulter MD Work Phone: [facility] Comment on above: Results; Patient Upd ate; Patient Question Start: 08-15-2022 End: 08-15-2022 ambulatory [facility] Facility:[facility] Start: 08-11-2022 End: 08-11-2022 ambulatory [facility] Facility:[facility] Start: 08-01-2022 Telephone encounter Deirdre coulter MD Work Phone: [facility] Comment on above: Insurance Authorizat ion (Trulicity ) Start: 07-26-2022 Refill Deirdre stephen MD Work Phone: [facility] Comment on above: Refill Request Start: 07-23-2022 End: 07-23-2022 Refill Deirdre Quiñones MD Work Phone: [facility] Comment on above: Refill Request Start: 07-05-2022 End: 07-05-2022 Subsequent hospital visit by physician [facility]r [facility] [place] Work Phone: Radiology Comment on above: Hip pain [M25.559] Start: 07-04-2022 Telephone encounter Deirdre coulter MD Work Phone: [facility] [place] Comment on above: Patient Update Start: 06-27-2022 End: 06-27-2022 Patient encounter procedure Silvia Taylor LEUNG.INTERIOR DESIGN PROFESSIONAL Work Phone: [facility] [place] Comment on above: Sciatica, right side (Primary Dx) Start: 06-20-2022 Refill Deirdre stephen MD Work Phone: [facility] [place] Comment on above: Refill Request Start: 06-02-2022 Refill Jay BOGGS RN.[facility] Work Phone: [facility] [place] Comment on above: Refill Request Start: 05-21-2022 Refill Deirdre stephen MD Work Phone: [facility] [place] Comment on above: Refill Request Start: 05-03-2022 Refill Deirdre stephen MD Work Phone: [facility] [place] Comment on above: Refill Request Trulicity Start: 04-21-2022 Refill Jay BOGGS RN.[facility] Work Phone: [facility] [place] Comment on above: Refill Request Start: 04-19-2022 Refill Jay BOGGS RN.[facility] Work Phone: [facility] [place] Comment on above: Refill Request Start: 04-05-2022 End: 04-05-2022 Patient encounter procedure Deirdre Quiñones MD Work Phone: [facility] [place] Comment on above: Uncontrolled type 2 diabetes mellitus with hyperglycemia (HCC) (Primary Dx); Mixed hyperlipidemia; Hypertension, unspecified type; Anxiety state; Fall, initial encounter; Hypothyroidism, unspecified type; Arthritis of both hands Start: 03-23-2022 Refill Deirdre stephen MD Work Phone: [facility] [place] Comment on above: Refill Request Start: 03-20-2022 Refill Jay Saravanan AP RN.INTERIOR DESIGN PROFESSIONAL Work Phone: [facility] [place] Comment on above: Refill Request Start: 01-17-2022 Refill Deirdre stephen MD Work Phone: [facility] [place] Comment on above: Refill Request Start: 12-11-2021 Telephone encounter Silvia gaston APRN.INTERIOR DESIGN PROFESSIONAL Work Phone: [facility] [place] Comment on above: Results Start: 11-24-2021 Telephone encounter Sami Sales MD Work Phone: [facility] [place] Comment on above: Medication Problem Start: 11-23-2021 Telephone encounter Sami Sales MD Work Phone: [facility] [place] Comment on above: Results Start: 11-23-2021 End: 11-23-2021 Subsequent hospital visit by physician Maranda On License Of [facility] [place] Work Phone: Radiology Comment on above: Viral URI with cough [J06.9] Start: 11-16-2021 End: 11-16-2021 Patient encounter procedure Maura Morillo APRN.INTERIOR DESIGN PROFESSIONAL Work Phone: [facility] Comment on above: Congestion of nasal sinus (Primary Dx) Start: 11-14-2021 Telephone encounter Deirdre coulter MD Work Phone: [facility] [place] Comment on above: Patient Question; Pa tient Update Start: 10-20-2021 Refill Deirdre stephen MD Work Phone: [facility] [place] Comment on above: Refill Request Start: 09-29-2021 Telephone encounter Deirdre coulter MD Work Phone: [facility] [place] Comment on above: Results Start: 09-26-2021 End: 09-26-2021 Patient encounter procedure Deirdre Quiñones MD Work Phone: [facility] [place] Comment on above: Type 2 diabetes [...] 06-17-2024 Adult depression screening assessment Silvia Vazquez APRN.INTERIOR DESIGN PROFESSIONAL Work Phone: Start: 04-22-2023 Radex ribs uni w/posteroant ch minimum 3 views Spencer Lopez REGIONAL RETAIL SALES MANAGER.INTERIOR DESIGN PROFESSIONAL Work Phone: Start: 02-22-2023 Plain x-ray of pelvi s and lower extremity Start: 11-22-2022 Radex hip unilateral with pelvis 2-3 views David Alexis MD Work Phone: Start: 07-05-2022 Radex hips bilateral with pelvis minimum 5 views Silvia Vazquez REGIONAL RETAIL SALES MANAGER.INTERIOR DESIGN PROFESSIONAL Work Phone: Start: 11-23-2021 Radiologic exam ches t 2 views Tahir Sales MD Work Phone: Start: 09-26-2021 Adult depression screening assessment Deirdre Quiñones MD Work Phone: Start: 05-11-2021 Antibody screen Comment on above: Order Comment: Speci men Type: BLOOD SPECIMEN Performed By: #### T SCR #### [facility] CLIA [id number] [address] Plan of Treatment Date Care Activity Detail Author Start: 02-09-2035 Urine microalbumin profile DTaP,Tdap,Td Vaccine (3 - Td or Tdap) [facility] Start: 09-23-2025 Annual PCP Team Bradder gilson Disease Visit Annual PCP Team Chronic Disease Visit [facility] Start: 09-23-2025 BP Controlled (<130/80) BP Controlle d (<130/80) [facility] Start: 09-21-2025 Glaucoma screening Dilated Retinal E xam [facility] Start: 06-17-2025 Annual PCP Team Bradder gilson Disease Visit Annual PCP Team Chronic Disease Visit [facility] Start: 06-17-2025 BP Controlled (<130/80) BP Controlle d (<130/80) [facility] Start: 06-17-2025 Depression Screening Depression Scre ening [facility] Start: 06-16-2025 Hepatitis B surface antibody level LDL Cholesterol [facility] Start: 03-08-2025 Influenza vaccination Influenza Vacc ine (#1) [facility] Start: 12-24-2024 End: 03-25-2025 Comprehensive metabolic 2000 panel - Serum or Plasma COMPREHENSIVE METABOLIC PANEL Lab Routine Mixed hyperlipidemia Expected: 12/24/2024, Expires: 03/25/2025 [facility] Comment on above: Expected: 12/24/2024 , Expires: 03/25/2025 Start: 12-24-2024 End: 03-25-2025 Hemoglobin A1c in Blood HEMOGLOBIN A1C Lab Routine Type 2 diabetes mellitus without complication, without long-term current use of insulin (HCC) Expected: 12/24/2024, Expires: 03/25/2025 [facility] Work Phone: Comment on above: Expected: 12/24/2024 , Expires: 03/25/2025 Start: 12-24-2024 End: 03-25-2025 Lipid 1996 panel - Serum or Plasma LIPID PANEL, FASTING Lab Routine Mixed hyperlipidemia Expected: 12/24/2024, Expires: 03/25/2025 [facility] Comment on above: Expected: 12/24/2024 , Expires: 03/25/2025 Start: 12-22-2024 Hemoglobin A1c measurement HbA1C [facility] Start: 09-23-2024 End: 09-23-2024 Patient encounter procedure [facility] [place] Comment on above: 3 month follow up 3 month follow up / UACR due Start: 09-15-2024 End: 12-15-2024 Comprehensive metabolic 2000 panel - Serum or Plasma COMPREHENSIVE METABOLIC PANEL Lab Routine Type 2 diabetes mellitus without complication, without long-term current use of insulin (HCC) Expected: 09/15/2024, Expires: 12/15/2024 [facility] Work Phone: Comment on above: Expected: 09/15/2024 , Expires: 12/15/2024 Start: 09-15-2024 End: 12-15-2024 Hemoglobin A1c in Blood HEMOGLOBIN A1C Lab Routine Type 2 diabetes mellitus without complication, without long-term current use of insulin (HCC) Expected: 09/15/2024, Expires: 12/15/2024 [facility] Comment on above: Expected: 09/15/2024 , Expires: 12/15/2024 Start: 09-14-2024 Hemoglobin A1c measurement HbA1C [facility] Start: 07-08-2024 Advance Directive Discussion Advance Directive Discussion [facility] Start: 07-08-2024 Medicare Advantage Annual Wellness Visit Medicare Advantage Annual Wellness Visit [facility] Start: 06-08-2024 End: 06-08-2024 Patient encounter procedure 06/08/2024 10:40 AM EST Office Visit [facility] [place] [address] [facility] [place] [id number] Silvia Vazquez, REGIONAL RETAIL SALES MANAGER.INTERIOR DESIGN PROFESSIONAL [address] [facility] [place] [id number] [facility]are [facility] [place] Comment on above: medicare wellnes Start: 05-25-2024 Covid-19 Vaccine () Covid-19 Vaccine () [facility] Start: 05-18-2024 End: 08-17-2024 CBC W Auto Differential panel - Blood COMPLETE BLOOD COUNT AND DIFFERENTIAL Lab Routine Hypertension, unspecified type Hypothyroidism, unspecified type Expected: 05/18/2024, Expires: 08/17/2024 [facility] Comment on above: Expected: 05/18/2024 , Expires: 08/17/2024 Start: 05-18-2024 End: 08-17-2024 Comprehensive metabolic 2000 panel - Serum or Plasma COMPREHENSIVE METABOLIC PANEL Lab Routine Type 2 diabetes mellitus without complication, without long-term current use of insulin (HCC) Mixed hyperlipidemia Expected: 05/18/2024, Expires: 08/17/2024 [facility] Comment on above: Expected: 05/18/2024 , Expires: 08/17/2024 Start: 05-18-2024 End: 08-17-2024 Hemoglobin A1c in Blood HEMOGLOBIN A1C Lab Routine Type 2 diabetes mellitus without complication, without long-term current use of insulin (HCC) Expected: 05/18/2024, Expires: 08/17/2024 [facility] Comment on above: Expected: 05/18/2024 , Expires: 08/17/2024 Start: 05-18-2024 End: 08-17-2024 Lipid 1996 panel - Serum or Plasma LIPID PANEL BASIC Lab Routine Type 2 diabetes mellitus without complication, without long-term current use of insulin (HCC) Mixed hyperlipidemia Expected: 05/18/2024, Expires: 08/17/2024 [facility] Comment on above: Expected: 05/18/2024 , Expires: 08/17/2024 Start: 05-18-2024 End: 08-17-2024 TSH W/REFLEX FT4 TSH W/REFLEX FT4 Lab Routine Hypothyroidism, unspecified type Expected: 05/18/2024, Expires: 08/17/2024 [facility] Work Phone: Comment on above: Expected: 05/18/2024 , Expires: 08/17/2024 Start: 04-29-2024 Annual PCP Team Bradder gilson Disease Visit Annual PCP Team Chronic Disease Visit [facility] Start: 04-29-2024 BP Controlled (<130/80) BP Controlle d (<130/80) [facility] Start: 04-10-2024 Annual PCP Team Bradder gilson Disease Visit Annual PCP Team Chronic Disease Visit [facility] Start: 03-08-2024 Covid-19 Vaccine ( season) Covid-19 Vaccine () [facility] Start: 03-08-2024 Covid-19 Vaccine () Covid-19 Vaccine () [facility] Start: 03-08-2024 Influenza vaccination Influenza Vacc ine (#1) [facility] Start: 07-29-2023 Covid-19 Vaccine ( season) Covid-19 Vaccine () [facility] Start: 07-08-2023 Advance Directive Discussion Advance Directive Discussion [facility] Start: 07-08-2023 Behavioral Health Screening Behavioral Health Screening [facility] Start: 06-27-2023 ANNUAL PCP TEAM SLATE TRIMMER GILSON DISEASE VISIT ANNUAL PCP TEAM CHRONIC DISEASE VISIT [facility] Start: 04-30-2023 Glaucoma screening Dilated Retinal E xam [facility] Start: 04-30-2023 Hepatitis C antibody , confirmatory test DILATED RETINAL EXAM [facility] Start: 04-29-2023 End: 07-29-2023 ALBUMIN/CREAT RATIO RND UR ALBUMIN/CREAT RATIO RND UR Lab Routine Type 2 diabetes mellitus without complication, without long-term current use of insulin (HCC) Expected: 04/29/2023, Expires: 07/29/2023 [facility] Work Phone: Comment on above: Expected: 04/29/2023 , Expires: 07/29/2023 Start: 04-29-2023 End: 07-29-2023 Comprehensive metabolic 2000 panel - Serum or Plasma COMP METABOLIC PANEL Lab Routine Type 2 diabetes mellitus without complication, without long-term current use of insulin (HCC) Expected: 04/29/2023, Expires: 07/29/2023 [facility] Work Phone: Comment on above: Expected: 04/29/2023 , Expires: 07/29/2023 Start: 04-29-2023 End: 07-29-2023 Hemoglobin A1c in Blood HGB A1C Lab Routine Type 2 diabetes mellitus without complication, without long-term current use of insulin (HCC) Expected: 04/29/2023, Expires: 07/29/2023 [facility] Work Phone: Comment on above: Expected: 04/29/2023 , Expires: 07/29/2023 Start: 04-29-2023 End: 07-29-2023 Lipid 1996 panel - Serum or Plasma LIPID PANEL BASIC Lab Routine Mixed hyperlipidemia Expected: 04/29/2023, Expires: 07/29/2023 [facility] Work Phone: Comment on above: Expected: 04/29/2023 , Expires: 07/29/2023 Start: 04-19-2023 [facility] Start: 04-05-2023 ANNUAL PCP TEAM SLATE TRIMMER GILSON DISEASE VISIT ANNUAL PCP TEAM CHRONIC DISEASE VISIT [facility] Start: 04-05-2023 BP CONTROLLED (<130/80) BP CONTROLLE D (<130/80) [facility] Start: 04-05-2023 Hepatitis B surface antibody level LDL CHOLESTEROL [facility] Start: 03-08-2023 Influenza vaccination INFLUENZA (#1) [facility] Start: 03-06-2023 Patient referral [facility] Work Phone: Start: 12-11-2022 End: 02-10-2023 ALBUMIN/CREAT RATIO RND UR ALBUMIN/CREAT RATIO RND UR Lab Routine Uncontrolled type 2 diabetes mellitus with hyperglycemia (HCC) Expected: 12/11/2022, Expires: 02/10/2023 [facility] Work Phone: Comment on above: Expected: 12/11/2022 , Expires: 02/10/2023 Start: 12-11-2022 End: 02-10-2023 Comprehensive metabolic 2000 panel - Serum or Plasma COMP METABOLIC PANEL Lab Routine Uncontrolled type 2 diabetes mellitus with hyperglycemia (HCC) Mixed hyperlipidemia Expected: 12/11/2022, Expires: 02/10/2023 [facility] Work Phone: Comment on above: Expected: 12/11/2022 , Expires: 02/10/2023 Start: 12-11-2022 End: 02-10-2023 Hemoglobin A1c in Blood HGB A1C Lab Routine Uncontrolled type 2 diabetes mellitus with hyperglycemia (HCC) Expected: 12/11/2022, Expires: 02/10/2023 [facility] Work Phone: Comment on above: Expected: 12/11/2022 , Expires: 02/10/2023 Start: 12-11-2022 End: 02-10-2023 Lipid 1996 panel - Serum or Plasma LIPID PANEL BASIC Lab Routine Uncontrolled type 2 diabetes mellitus with hyperglycemia (HCC) Mixed hyperlipidemia Expected: 12/11/2022, Expires: 02/10/2023 [facility] Work Phone: Comment on above: Expected: 12/11/2022 , Expires: 02/10/2023 Start: 11-30-2022 COVID-19 VACCINE (6 - Pfizer series) COVID-19 VACCINE (6 - Pfizer series) [facility] Start: 11-23-2022 ANNUAL PCP TEAM SLATE TRIMMER GILSON DISEASE VISIT ANNUAL PCP TEAM CHRONIC DISEASE VISIT [facility] Start: 11-16-2022 BP CONTROLLED (<130/80) BP CONTROLLE D (<130/80) [facility] Start: 11-12-2022 Hemoglobin A1c measurement HbA1C [facility] Start: 05-08-2023 Hemoglobin A1c/Hemoglobin.total in Blood HBA1C [facility] Start: 09-26-2022 Adult depression screening assessment DEPRESSION SCREENING [facility] Start: 09-26-2022 ANNUAL PCP TEAM SLATE TRIMMER GILSON DISEASE VISIT ANNUAL PCP TEAM CHRONIC DISEASE VISIT [facility] Start: 09-26-2022 BP CONTROLLED (<130/80) BP CONTROLLE D (<130/80) [facility] Start: 09-26-2022 Hepatitis B screening URINE AL BUMIN:CREATININE RATIO [facility] Start: 09-26-2022 Hepatitis B surface antibody level LDL CHOLESTEROL [facility] Start: 09-26-2022 [facility] above: Postponed from 10/24 (Declined at this time) Start: 07-08-2022 ADVANCE DIRECTIVE DISCUSSION ADVANCE DIRECTIVE DISCUSSION [facility] Start: 07-08-2022 DEPRESSION ASSESSMENT DEPRESSION ASS ESSMENT [facility] Start: 07-05-2022 End: 09-04-2022 Comprehensive metabolic 2000 panel - Serum or Plasma COMP METABOLIC PANEL Lab Routine Mixed hyperlipidemia Uncontrolled type 2 diabetes mellitus with hyperglycemia (HCC) Expected: 07/05/2022 (Approximate), Expires: 09/04/2022 [facility] Work Phone: Comment on above: Expected: 07/05/2022 (Approximate), Expires: 09/04/2022 Start: 07-05-2022 End: 09-04-2022 Hemoglobin A1c in Blood HGB A1C Lab Routine Uncontrolled type 2 diabetes mellitus with hyperglycemia (HCC) Expected: 07/05/2022 (Approximate), Expires: 09/04/2022 [facility] Work Phone: Comment on above: Expected: 07/05/2022 (Approximate), Expires: 09/04/2022 Start: 07-05-2022 Hemoglobin A1c/Hemoglobin.total in Blood HBA1C [facility] Start: 04-16-2022 COVID-19 VACCINE (5 - Booster for Pfizer series) COVID-19 VACCINE (5 - Booster for Pfizer series) [facility] Start: 03-29-2022 End: 05-29-2022 Comprehensive metabolic 2000 panel - Serum or Plasma COMP METABOLIC PANEL Lab Routine Mixed hyperlipidemia Hypertension, unspecified type Type 2 diabetes mellitus without complication, without long-term current use of insulin (HCC) Expected: 03/29/2022 (Approximate), Expires: 05/29/2022 [facility] Work Phone: Comment on above: Expected: 03/29/2022 (Approximate), Expires: 05/29/2022 Start: 03-29-2022 End: 05-29-2022 Hemoglobin A1c/Hemoglobin.total in Blood HGB A1C Lab Routine Type 2 diabetes mellitus without complication, without long-term current use of insulin (HCC) Expected: 03/29/2022 (Approximate), Expires: 05/29/2022 [facility] Work Phone: Comment on above: Expected: 03/29/2022 (Approximate), Expires: 05/29/2022 Start: 03-29-2022 End: 05-29-2022 LIPID PANEL BASIC LIPID PANEL BASIC Lab Routine Mixed hyperlipidemia Hypertension, unspecified type Type 2 diabetes mellitus without complication, without long-term current use of insulin (HCC) Expected: 03/29/2022 (Approximate), Expires: 05/29/2022 [facility] Work Phone: Comment on above: Expected: 03/29/2022 (Approximate), Expires: 05/29/2022 Start: 03-29-2022 End: 05-29-2022 Thyrotropin [Units/volume] in Serum or Plasma TSH BLD Lab Routine Hypothyroidism, unspecified type Expected: 03/29/2022 (Approximate), Expires: 05/29/2022 [facility] Work Phone: Comment on above: Expected: 03/29/2022 (Approximate), Expires: 05/29/2022 Start: 03-08-2022 Influenza vaccination INFLUENZA (#1) [facility] Start: 12-27-2021 Hemoglobin A1c/Hemoglobin.total in Blood HBA1C [facility] Start: 08-09-2021 COVID-19 VACCINE (4 - Booster for Pfizer series) COVID-19 VACCINE (4 - Booster for Pfizer series) [facility] Start: 07-08-2021 DEPRESSION ASSESSMENT DEPRESSION ASS ESSMENT [facility] Start: 08-25-2020 3 comp foot exam completed DIABETIC FOOT EXAM [facility] Start: 08-25-2020 Diabetic foot examination Diabetic Foot Exam [facility] Start: 10-24-2018 RSV Vaccine (1 - 1-d ose 75+ series) RSV Vaccine (1 - 1-dose 75+ series) [facility] Start: 02-26-2017 Urine microalbumin profile [facility] Start: 04-07-2016 Hepatitis C antibody , confirmatory test DILATED RETINAL EXAM [facility] Start: 2003 Hepatitis B Vaccine (1 of 3 - Risk 3-dose series) Hepatitis B Vaccine (1 of 3 - Risk 3-dose series) [facility] Start: 2003 RSV Vaccine (1 - 1-d ose 60+ series) RSV Vaccine (1 - 1-dose 60+ series) [facility] Start: 10-24-1961 BP CONTROLLED (<130/80) BP CONTROLLE D (<130/80) [facility] Start: 10-24-1961 Depression Screening Depression Scre ening [facility] Start: 10-24-1961 HEPATITIS C SCREENING HEPATITIS C SC REENING [facility] Start: 10-24-1961 Spirometry Spirometry [facility] Patient Education [facility] Work Phone: Patient referral [facility] Work Phone: [facility] Immunizations Immunization Date Immunization Notes Care Provider Zane pastor 02-09-2025 influenza, high dose seasonal, preservative-free Deirdre Quiñones MD Work Phone: [facility] 02-09-2025 tetanus toxoid, redu regis diphtheria toxoid, and acellular pertussis vaccine, adsorbed Deirdre Quiñones MD Work Phone: [facility] 03-30-2024 COVID-19 original vaccine, age 12+ yr, monovalent (PFIZER-BIONTArbovax - DAWSON TOP) Silvia Vazquez APRN.INTERIOR DESIGN PROFESSIONAL Work Phone: [facility] 03-30-2024 influenza (HD-IIV4) vaccine, age 65+ yr, high dose, quadrivalent, PF (FLUZONE HIGH-DOSE) Silvia Vazquez APRN.INTERIOR DESIGN PROFESSIONAL Work Phone: [facility] 03-30-2024 respiratory syncytia l virus (RSV) vaccine, adjuvanted (AREXVY) Silvia Vazquez REGIONAL RETAIL SALES MANAGER.INTERIOR DESIGN PROFESSIONAL Work Phone: [facility] 03-30-2024 influenza virus vacc ine, unspecified formulation Deirdre Quiñones MD Work Phone: [facility] 03-29-2023 influenza virus vacc ine, unspecified formulation Deirdre Quiñones MD Work Phone: [facility] 08-02-2022 COVID-19 booster vaccine, age 12+ yr, bivalent (PFIZER-BIONTECH) Deirdre Quiñones MD Work Phone: [facility] 04-02-2022 influenza (aIIV4) vaccine, age 65+ yr, quadrivalent, PF (FLUAD QUADRIVALENT) Deirdre Quiñones MD Work Phone: [facility] 02-19-2022 COVID-19 vaccine, ag e 12+ yr (PFIZER-BIONTECH - DAWSON TOP) Jay Tran REGIONAL RETAIL SALES MANAGER.INTERIOR DESIGN PROFESSIONAL Work Phone: [facility] 09-07-2020 COVID-19 vaccine, ag e 12+ yr (PFIZER-BIONTECH - PURPLE TOP) Deirdre Quiñones MD Work Phone: [facility] 08-16-2020 COVID-19 vaccine, ag e 12+ yr (PFIZER-BIONTECH - PURPLE TOP) Deirdre Quiñones MD Work Phone: [facility] 04-20-2020 influenza (aIIV4) vaccine, age 65+ yr, quadrivalent, PF (FLUAD QUADRIVALENT) Deirdre Quiñones MD Work Phone: [facility] 04-20-2020 influenza, seasonal, injectable Deirdre Quiñones MD Work Phone: [facility] 04-20-2020 zoster vaccine recombinant Deirdre Quiñones MD Work Phone: [facility] 03-31-2019 influenza, high dose seasonal, preservative-free Deirdre Quiñones MD Work Phone: [facility] 03-25-2019 zoster vaccine recombinant Deirdre Quiñones MD Work Phone: [facility] 04-05-2018 influenza, high dose seasonal, preservative-free Deirdre Quiñones MD Work Phone: [facility] 04-22-2017 influenza, injectabl e, quadrivalent, contains preservative Deirdre Quiñones MD Work Phone: [facility] Work Phone: 04-07-2015 influenza, seasonal, injectable Deirdre Quiñones MD Work Phone: [facility] 03-08-2015 zoster vaccine, live Deirdre fischer MD Work Phone: [facility] 11-10-2014 pneumococcal conjuga te vaccine, 13 valent Deirdre Quiñones MD Work Phone: [facility] 05-13-2014 influenza, seasonal, injectable Deirdre Quiñones MD Work Phone: [facility] 04-08-2013 influenza virus vacc ine, unspecified formulation Deirdre Quiñones MD Work Phone: [facility] 06-20-2010 influenza virus vacc ine, unspecified formulation Deirdre Quiñones MD Work Phone: [facility] 06-20-2010 pneumococcal polysaccharide vaccine, 23 valent Deirdre Quiñones MD Work Phone: [facility] 05-17-2009 novel influenza-H1N1 -09, all formulations Deirdre Quiñones MD Work Phone: [facility] 05-13-2009 influenza virus vacc ine, unspecified formulation Deirdre Quiñones MD Work Phone: [facility] 05-13-2008 influenza virus vacc ine, unspecified formulation Deirdre Quiñones MD Work Phone: [facility] Work Phone: 06-27-2007 influenza virus vacc ine, unspecified formulation Deirdre Quiñones MD Work Phone: [facility] 02-26-2007 tetanus toxoid, redu regis diphtheria toxoid, and acellular pertussis vaccine, adsorbed Deirdre Quiñones MD Work Phone: [facility] Work Phone: 05-24-2006 influenza virus vacc ine, unspecified formulation Deirdre Quiñones MD Work Phone: [facility] Payers Date Payer Category Payer Medicare (Managed Care) [employer]US [id number] 2022 Private Health Insurance [id number] 2022 Self-pay [id number] 2021 Medicare [employer]NA MEDICARE [employer] GOLD PLUS [id number] 2021-Present [phone] [place] [id number] [facility] [id number] 2021 Medicare [id number] Private Health Insurance [employer] [facility] [id number] Unknown [id number] Unknown [id number] Unknown [id number] Unknown [id number] Unknown [id number] Unknown [id number] Social History Date Type Detail Facility Start: 05-19-2018 End: 06-17-2024 Tobacco smoking status NHIS Smokes tobacco daily [facility] History of tobacco use Cigarette Smoker [facility] Work Phone: Start: 09-26-2021 End: 09-23-2024 Alcohol intake Current drinker of alcohol (finding) [facility] Start: 09-14-2020 End: 06-26-2022 History SDOH Alcohol Frequency 2 [facility] Start: 09-14-2020 End: 06-26-2022 History SDOH Alcohol Std Drinks 1 [facility] Start: 07-02-2007 History SDOH Alcohol Comment occasionally, 2 mixed drinks per month [facility] Start: 09-14-2020 End: 06-26-2022 History SDOH Social Connections Phone 5 [facility] Start: 09-14-2020 End: 06-26-2022 History SDOH Social Connections Syn[employer] 3 [facility] Start: 09-14-2020 End: 06-26-2022 History SDOH Financial 4 [facility] Start: 09-14-2020 Education 18 [facility] Start: 05-19-2018 End: 04-05-2022 Tobacco Comment Smoking 3 cigarettes per day [facility] Start: 1945 Sex Assigned At Not on file [facility] Start: 09-16-2021 End: 04-05-2022 Exposure to SARS-CoV-2 (event) Not sure [facility] Start: 11-22-2021 History SDOH Alcohol Std Drinks 98 [facility] Start: 05-19-2018 End: 04-29-2023 Cigarettes smoked current (pack per day) - Reported 0.3 [facility] Start: 05-19-2018 End: 06-17-2024 Tobacco use and exposure Smokeless tobacco non-user [facility] Start: 06-26-2022 History SDOH Alcohol Std Drinks 0 [facility] Start: 06-26-2022 End: 04-29-2023 Social connection and isolation panel [facility] Do you belong to any clubs or organizations such as restorationism groups, unions, fraternal or athletic groups, or school groups? Yes [facility] Are you now , , , , never or living with a partner? [facility] Start: 06-08-2012 Frequency of Alcohol Consumption Not on file [facility] How often do you hav e 6 or more drinks on 1 occasion? Never [facility] How hard is it for y ou to pay for the very basics like food, housing, medical care, and heating Not very hard [facility] Do you feel stress - tense, restless, nervous, or anxious, or unable to sleep at night because your mind is troubled all the time - these days [OSQ] Only a little [facility] (I/We) worried jocelyne er (my/our) food would run out before (I/we) got money to buy more. Never true [facility] In the past 12 month s, was there a time when you were not able to pay the mortgage or rent on time? No [facility] Start: 02-22-2023 End: 04-19-2023 Tobacco smoking status NHIS Unknown if ever smoked [facility] Start: 1945 Sex Assigned At Female [facility] How often to you hav e a drink containing alcohol? Monthly or less [facility] Functional Status Date Assessment Result Facility 05-13-2021 Are you deaf, or do you have serious difficulty hearing No 05/13/2021 11:32 AM Dalia Grimes, NURYS No [facility] 05-13-2021 Are you blind, or do you have serious difficulty seeing, even when wearing glasses No 05/13/2021 11:32 AM Dalia Grimes, NURYS No [facility] 05-13-2021 Do you have serious difficulty walking or climbing stairs No 05/13/2021 11:32 AM Dalia Grimes, RN No [facility] 05-13-2021 Do you have difficul ty dressing or bathing No 05/13/2021 11:32 AM Dalia Grimes, RN No [facility] 05-13-2021 Because of a physica l, mental, or emotional condition, do you have difficulty doing errands alone such as visiting a physician's office or shopping No 05/13/2021 11:32 AM EDT Dalia Gallardo RN No [facility] Mental Status Date Assessment Result Facility 05-13-2021 Because of a physica l, mental, or emotional condition, do you have serious difficulty concentrating, remembering, or making decisions No 05/13/2021 11:32 AM EDT Dalia Gallardo RN No [facility] Clinical Notes 05-13-2014 to 03-12-2025 Telephone Encounter - Jay Tran APRN.CNP - 03/12/2025 9:53 AM EDTTelephone Encounter - Jay Tran APRN.CNP - 03/12/2025 9:53 AM SHERINTCSilvai novoa CPhT - 12/03/2024 1:18 PM EDT [...] by mouth once daily. Jay Tran APRN.CNP [facility] 03-12-2025 Miscellaneous Notes The following approved medication [...] Take 1 tablet by mouth once daily. [facility] March 12, 2025 9:09 AM documented in this encounter [facility] 03-12-2025 Telephone encounter Note Prescription Refill Information [...] 1 tablet by mouth once daily. [facility] March 12, 2025 9:09 AM [facility] 01-19-2025 Telephone encounter Note Approved. [facility] website checked and validated. All prescriptions have [...] 90 days. Authorizing Provider: JAY TRAN APRN.CNP [facility] 01-19-2025 Miscellaneous Notes Approved. PDMP website checked [...] 2025 10:40 AM documented in this encounter [facility] 01-19-2025 Telephone encounter Note Prescription Refill Information [...] Penny LPN January 19, 2025 10:40 AM [facility] 12-03-2024 Note HNO ID: [id number] Author: SILVIA HOGUE CPhT Service: ? Author Type: Pulverizer Operator Type: Progress Notes Filed: 12/03/2024 13:19 Note Text: Patient is identified through a medication adherence outreach initiative based on pharmacy claims data from: [employer] Medication Adherence Category: Hypertension First Review Attribution [...] Hogue CPhT Value Based Care Pharmacy Team [facility] 12-03-2024 History of Present illness Narrative Patient is identified through a medication adherence outreach initiative based on pharmacy claims data from: [employer] Medication Adherence Category: Hypertension First Review Attribution [...] Care Pharmacy Team documented in this encounter [facility] 12-03-2024 Note Patient Outreach ([facility]) SHEREE CHAVEZ ([id number]) 1945 F Date Time Provider Department 12/03/24 DEIRDRE QUIÑONES During your visit today, we recorded the following information about you: Silvia Hogue CPhT 12/03/2024 1:19 PM Signed Patient is identified through a medication adherence outreach initiative based on pharmacy claims data from: [employer] Medication Adherence Category: Hypertension First Review Attribution [...] primary intervention? No intervention Silvia Hogue CPhT [facility] Pharmacy Team Allergies As of Date: [...] Encounter Status:Closed by SILVIA HOGUE on 12/03/24 [facility] 12-01-2024 Telephone encounter Note Images from the original note were not included. Electronic PA rec'd and completed for ozempic ANNY. This was completed and approved. Prior authorization approved Payer: [employer] PBM Part D [id number] Note from payer: Request Reference Number: [id number]. OZEMPIC INJ 2MG/3ML is approved through 07/07/2025. Your patient may now fill this prescription and it will be covered. Approval Details Authorization number: [id number] Authorized from December 01, 2024 to July [...] to its destination. To be filled at: [id number] [place] [address] - [address] [phone] Pt notified via my chart. [facility] 12-01-2024 Miscellaneous Notes Images from the original note were not included. Electronic PA rec'd and completed for ozempic ANNY. This was completed and approved. Prior authorization approved Payer: [employer] P[employer] Part D [id number] Note from payer: Request Reference Number: [id number]. OZEMPIC INJ 2MG/3ML is approved through 07/07/2025. Your patient may now fill this prescription and it will be covered. Approval Details Authorization number: [id number] Authorized from December 01, 2024 to July 07, 2025 Electronic appeal: Not supported View History Notes Time User Attachment Attachment received from payer. 12/01/2024 8:31 AM [facility], Rx Priorauth In Document Medication Being [...] to its destination. To be filled at: [facility] [id number] [place] [address] - [address] [phone] Pt notified via my chart. documented in this encounter [facility] 12-01-2024 Telephone encounter Note The following approved medication requests have been transmitted electronically. Requested Prescriptions Pending Prescriptions Disp Refills OZEMPIC 0.25 mg or 0.5 mg (2 mg/3 mL) pen 3 mL 2 Sig: Inject 0.5 mg subcutaneously one time a week. Jay Tran APRN.CNP [facility] 12-01-2024 Miscellaneous Notes The following approved medication [...] 2024 7:57 AM documented in this encounter [facility] 12-01-2024 Telephone encounter Note Prescription Refill Information [...] Blair LPN December 01, 2024 7:57 AM [facility] 11-02-2024 Note HNO ID: [id number] Author: ?, ?, ? Service: ? Author [...] Contacted: Unable or unnecessary to reach patient: [email or web address] message sent HCC related Navigation Signature: Suze Reid November 02, 2024 12:12 PM [facility] 11-02-2024 Note Patient Outreach ([facility]) SHEREE CHAVEZ ([id number]) 1945 F Date Time Provider Department 11/02/24 DEIRDRE QUIÑONES During your visit today, we recorded the following information about you: Suze Crawford 11/02/2024 12:13 PM Signed POPULATION HEALTH NAVIGATION OUTREACH Action/FYI Patient outreach for HCC gaps; KED. Pt is due for the rest of their KED labs. [employer] sent to close gaps. Reason for Outreach Care Gap/HCC or Scheduling Wellness Visits Care Gaps due: KED Patient Contacted: Unable or unnecessary to reach patient: [email or web address] message sent HCC related Navigation Signature: Suze [...] Encounter Status:Closed by SUZE CRAWFORD on 11/02/24 [facility] 10-23-2024 Note HNO ID: [id number] Author: DENISE EDWARD RN Service: ? Author [...] - Bi-Weekly Outreach (Recurring) Disposition Based on apparel rental clerk, the following disposition is advised: No action needed Denise Edward RN October 23, 2024 5:01 PM [facility] 10-23-2024 History of Present illness Narrative Images [...] - Bi-Weekly Outreach (Recurring) Disposition Based on apparel rental clerk, the following disposition is advised: No action needed Denise Edward RN October 23, 2024 5:01 PM documented in this encounter [facility] 10-23-2024 Note Patient Outreach ([facility]) SHEREE CHAVEZ ([id number]) 1945 F Date Time Provider Department 10/23/24 [...] - Bi-Weekly Outreach (Recurring) Disposition Based on apparel rental clerk, the following disposition is advised: No action [...] 05/19/2018: Takes Multi-vitami (more content not included)... [facility] 10-19-2024 Telephone encounter Note OK to refill as ordered Deirdre Quiñones MD [facility] 10-19-2024 Miscellaneous Notes OK to refill as [...] 2024 6:24 PM documented in this encounter [facility] 10-19-2024 Telephone encounter Note The patient has [...] Ross RN October 19, 2024 6:24 PM [facility] 10-16-2024 Telephone encounter Note Telephoned the patient to schedule a new Primary Care pharmacy appt. Left a message. Made two attempts to contact the patient. Patient was sent [employer] message. If the patient returns a call, an appt will be scheduled. Encounter routed to the clinical pharmacist. [facility] 10-16-2024 Miscellaneous Notes Telephoned the patient to schedule a new Primary Care pharmacy appt. Left a message. Made two attempts to contact the patient. Patient was sent [email or web address] message. If the patient returns a call, an appt will be scheduled. Encounter routed to the clinical pharmacist. Telephoned the patient to schedule a new Primary Care pharmacy appt. Left a message. documented in this encounter [facility] 10-14-2024 Telephone encounter Note Telephoned the patient to schedule a new Primary Care pharmacy appt. Left a message. [facility] 10-13-2024 History of Present illness Narrative Primary [...] Callahan PharmD, ANAYA documented in this encounter [facility] 10-13-2024 Note HNO ID: [id number] Author: MESFIN CALLAHAN RPh Service: ? Author [...] types. Thank you, Mesfin Callahan PharmD, ANAYA [facility] 10-13-2024 Note Patient Outreach (PM STOW) SHEREE CHAVEZ ([id number]) 1945 F Date Time Provider Department 10/13/24 [...] Fully Assessed Reason for Visit: Care Coordination [6291] Cmt: Referred to Pharmacy for Diabetes Management Primary Visit Diagnosis:Type 2 diabetes mellitus with other specified complication, without long-term current use of insulin (HCC) [E11.69] Order(s):CONSULT TO PHARMACY [567653] Order #: [id number]: 1 Prescriptions as of 10/13/2024 - fluticasone [...] Encounter Status:Closed by MESFIN CALLAHAN on 10/13/24 [facility] 09-25-2024 Telephone encounter Note The following approved [...] one time a week. Jay Tran APRN.CNP [facility] 09-25-2024 Miscellaneous Notes The following approved medication [...] that the script that were sent to [facility] pharmacy should have been sent to [facility] and not [facility]. Script pended and correct pharmacy selected. documented in this encounter [facility] 09-25-2024 Telephone encounter Note Patient called stating that the script that were sent to [facility] pharmacy should [facility] been [facility] to [facility] and not [facility]. Script pended and correct pharmacy selected. [facility] 09-24-2024 Note HNO ID: [id number] Author: SCARLETT STONE MA Service: ? Author Type: Road Mixer Operator Type: Progress Notes Filed: 09/24/2024 14:22 Note [...] to reach patient: Unable to leave message [employer] message sent HCC related Navigation Signature: Scarlett Stone MA September 24, 2024 2:20 PM [facility] 09-24-2024 History of Present illness Narrative POPULATION [...] to reach patient: Unable to leave message [employer] message sent HCC related Navigation Signature: Scarlett Stone MA September 24, 2024 2:20 PM documented in this encounter [facility] 09-24-2024 Note Patient Outreach ([facility]) SHEREE CHAVEZ ([id number]) 1945 F Date Time Provider Department 09/24/24 [...] to reach patient: Unable to leave message [employer] message sent HCC related Navigation Signature: Scarlett [...] Encounter Status:Closed by SCARLETT STONE on 09/24/24 [facility] 09-23-2024 Instructions Silvia Vazquez APRN.CNP - 09/23/2024 9:35 AM EDT Get repeat fasting labs completed prior to next visit Increase Ozempic to 0.5 mg once weekly Continue with low carb diet, increase protein and vegetable intake May consider Dora or Dexcom, glucose monitor Follow up in 3 months or sooner as needed documented in this encounter [facility] 09-23-2024 History of Present illness Narrative This [...] seen pain management in the past, Dr. Toriibo. Has had injections in the past. Has [...] APRN.MANDY This note was partially generated using [employer] recognition system. Note was reviewed for accuracy. There may be minor misspellings or grammar miscues with [employer] voice recognition. documented in this encounter [facility] 09-23-2024 Note HNO ID: [id number] Author: SILVIA VAZQUEZ APRN.CNP Service: ? Author [...] Cigarettes Smokeless tobacco: (more content not included)... [facility] 09-11-2024 Note HNO ID: [id number] Author: DENISE EDWARD RN Service: ? Author [...] - Initial enrollment outreach Disposition Based on apparel rental clerk, the following disposition is advised: No action needed Denise Edward RN September 11, 2024 11:08 AM [facility] 09-11-2024 History of Present illness Narrative CDM [...] has the electric, gas, oil, or water [employer] threatened to shut off services in your home?: No Tobacco Use Patient reports that she has been smoking cigarettes. She has a 7.5 pack-year smoking history. She has never used smokeless tobacco. Interventions The following were addressed during this visit: - Initial enrollment outreach Disposition Based on apparel rental clerk, the following disposition is advised: No action needed Denise Edward RN September 11, 2024 11:08 AM documented in this encounter [facility] 09-11-2024 Note Patient Outreach (AM [facility]) SHEREE CHAVEZ ([id number]) 1945 F Date Time Provider Department 09/11/24 DENISE EDWARD [facility] During your visit today, we recorded the [...] In the past 12 months has the [employer], gas, oil, or water [employer] threatened to shut off services in your home?: No Tobacco Use Patient reports that she has been smoking cigarettes. She has a 7.5 pack-year smoking history. She has never used smokeless tobacco. Interventions The following were addressed during this visit: - Initial enrollment outreach Disposition Based on apparel rental clerk, the following disposition is advised: No action [...] wheezing/shortness of benjie (more content not included)... [facility] 08-26-2024 Note HNO ID: [id number] Author: BONNIE DIOP MA Service: ? Author Type: Road Mixer Operator Type: Progress Notes Filed: 08/26/2024 08:25 Note [...] Tucker MA August 26, 2024 8:24 AM [facility] 08-21-2024 Note HNO ID: [id number] Author: BONNIE DIOP MA Service: ? Author Type: Road Mixer Operator Type: Progress Notes Filed: 08/21/2024 11:36 Note [...] or unnecessary to reach patient: Left message [employer] message sent Navigation Signature: Bonnie Tucker MA August 21, 2024 11:25 AM [facility] 08-21-2024 History of Present illness Narrative POPULATION [...] or unnecessary to reach patient: Left message [employer] message sent Navigation Signature: Bonnie Tucker MA August 21, 2024 11:25 AM documented in this encounter [facility] 08-21-2024 Note Patient Outreach (ANTHONY TNAV) SHEREE CHAVEZ ([id number]) 1945 F Date Time Provider Department 08/21/24 [...] HEALTH NAVIGATION OUTREACH Action/FYI Patient replies via [employer] - has outside eye exam scheduled. Declines [...] higher dose Date Reviewed: 06/17/2024 Reviewed by: Odlais Valentino LPN - Fully Assessed Reason for [...] Subdural hematoma ( (more content not included)... [facility] 07-22-2024 Telephone encounter Note Approved. [facility] website checked and validated. All prescriptions have [...] 90 days. Authorizing Provider: JAY TRAN APRN.CNP [facility] 07-22-2024 Miscellaneous Notes Approved. [facility] website checked and validated. All prescriptions have [...] 2024 7:18 AM documented in this encounter [facility] 07-22-2024 Telephone encounter Note Prescription Refill Information [...] Valentino LPN July 22, 2024 7:18 AM [facility] 06-17-2024 Instructions Silvia Vazquez APRN.CNP - 06/17/2024 [...] review all the medicines you take, even ofhb-puc-rklezbm medicines. As you get older, the way [...] certain medical conditions. documented in this encounter [facility] 06-17-2024 History of Present illness Narrative Images [...] APRN.CNP This note was partially generated using [employer] me to the Moon voice recognition system. Note was reviewed for accuracy. There may be minor misspellings or grammar miscues with [employer] voice recognition. documented in this encounter [facility] 06-17-2024 Note HNO ID: [id number] Author: SILVIA VAZQUEZ APRN.CNP Service: ? Author [...] daily before benjie (more content not included)... [facility] 05-18-2024 Telephone encounter Note Left message that lab orders are in. Kamille Nova LPN [facility] 05-18-2024 Miscellaneous Notes Left message that lab [...] mouth once daily. Authorizing Provider: JAY TRAN APRN.INTERIOR DESIGN PROFESSIONAL Prescription Refill Information The patient has been [...] 2024 11:59 AM documented in this encounter [facility] 05-18-2024 Telephone encounter Note Labs ordered Deirdre Quiñones MD [facility] 05-18-2024 Telephone encounter Note Spoke with pt and her Medicare Wellness apt has been booked for 06/08/24. Pt reports she will be due for fasting lab work. Please advise pt when fasting blood work is in. Orders pended, please review and add or delete. Kamille Nova LPN [facility] 05-18-2024 Telephone encounter Note Patient is due for a yearly visit. 90 days sent in. The following approved medication requests have been transmitted electronically. Requested Prescriptions Signed Prescriptions Disp Refills glimepiride (AMARYL) 4 mg tablet 90 tablet 0 Sig: Take 1 tablet by mouth once daily. Authorizing Provider: JAY TRAN APRN.INTERIOR DESIGN PROFESSIONAL [facility] 05-18-2024 Telephone encounter Note Prescription Refill Information [...] Kincaid MA May 18, 2024 11:59 AM [facility] 04-24-2024 Telephone encounter Note The patient has [...] West LPN April 24, 2024 11:04 AM [facility] 04-24-2024 Miscellaneous Notes The patient has been [...] 2024 11:04 AM documented in this encounter [facility] 04-20-2024 Telephone encounter Note OK to refill as ordered Deirdre Quiñones MD [facility] 04-20-2024 Miscellaneous Notes OK to refill as [...] 2024 1:47 PM documented in this encounter [facility] 04-20-2024 Telephone encounter Note Prescription Refill Information [...] Blair LPN April 20, 2024 1:47 PM [facility] 01-17-2024 Telephone encounter Note The following approved [...] identified. 01/17/2024 by Silvia Vazquez APRN.MANDY T [facility] 01-17-2024 Miscellaneous Notes The following approved medication [...] 2024 10:05 AM documented in this encounter [facility] [facility]24 Telephone encounter Note Gabapentin and Claritin requested in other refill request. Kourtney Kincaid MA [facility] 01-17-2024 Miscellaneous Notes Gabapentin and Claritin requested in other refill request. Kourtney Kincaid MA documented in this encounter [facility] 01-17-2024 Telephone encounter Note Xanax and lisinopril requested in other refill request. [facility] 01-17-2024 Miscellaneous Notes Xanax and lisinopril requested in other refill request. documented in this encounter [facility] 01-17-2024 Telephone encounter Note Prescription Refill Information [...] Kincaid MA January 17, 2024 10:05 AM [facility] 10-22-2023 Miscellaneous Notes OK to refill as ordered Deirdre Quiñones MD documented in this encounter [facility] 10-22-2023 Miscellaneous Notes OK to refill as [...] Kourtney Kincaid MA. documented in this encounter [facility] 04-29-2023 Instructions Silvia Vazquez APRN.MANDY - 04/29/2023 [...] pending lab results. documented in this encounter [facility] 04-29-2023 History of Present illness Narrative Medicare [...] Glaucoma screening - Lipid panel Silvia Vazquez APRN.INTERIOR DESIGN PROFESSIONAL This is a 77 year old female [...] diet of 1000 mg/day for under 50, 8444-7789 mg/day for 50+ - Discussed need and [...] discussed and patient voices understanding. Silvia Vazquez APRN.INTERIOR DESIGN PROFESSIONAL This note was partially generated using [employer] voice recognition system. Note was reviewed for accuracy. There may be minor misspellings or grammar miscues with [employer] voice recognition. documented in this encounter [facility] 04-25-2023 Miscellaneous Notes Spoke with pt and [...] Tanisha Connors RN. documented in this encounter [facility] 04-22-2023 History of Present illness Narrative Radiology [...] 2023 12:16 PM documented in this encounter [facility] 04-22-2023 History of Present illness Narrative Images [...] rib. Dictated by : MD Spencer NANCE APRN.INTERIOR DESIGN PROFESSIONAL documented in this encounter [facility] 04-19-2023 History of Present illness Narrative Came in with complaints of chest tightness and shortness of breath. Patient says it is hard to take a deep breath in. Patient recently had COVID. At this time patient is being referred to the emergency room for an evaluation. Patient is okay with this and wants to take her self. documented in this encounter [facility] 04-19-2023 Miscellaneous Notes Reason for Call: Still testing COVID positive, fatigue, sinus congestion, cough Outcome: See PCP within 4 hours. Advised Urgent/Express Care. Patient acknowledged understanding and stated she would go to [facility] tonight. Reason for Disposition MILD [...] a thermometer 7. RESPIRATORY STATUS: Hoarseness 8. [id number]-[id number]:Same as yesterday 9. HIGH RISK DISEASE: Diabetic [...] days. Protocols used: Coronavirus (COVID-19) Diagnosed or [id number] Patient states she has shortness of breath on exertion. documented in this encounter [facility] 04-19-2023 Miscellaneous Notes OK to refill as ordered Deirdre Quiñones MD Last office visit: 04/10/23 F/u scheduled: none Last TSH done in Aug 2022. Kourtney Kincaid Ma documented in this encounter [facility] 04-18-2023 Miscellaneous Notes Message left notifying pt that medication was sent to pharmacy. Kourtney Kincaid Ma OK for Zpak as ordered Deirdre Quiñones MD Patient calls and states that she now thinks that she has a sinus infection. Patient asking if provider can send in a prescription for this? Patient's pharmacy is [facility]. Please review and advise, [place] Armando RN documented in this encounter [facility] 02-05-2023 History of Present illness Narrative POPULATION HEALTH NAVIGATION OUTREACH Action/FYI HCC Gaps Due; E11.65 - Uncontrolled type 2 diabetes mellitus with hyperglycemia (HCC) - [id number] Last Billed 04/05/2022
[employer] Care Gaps Due; Follow Up BP Controlled HGBA1C Urine Albumin Advance Directives Left message and sent My Chart Patient Identified by Name and : NO Outreach Outcome/Action Unable to reach patient: Left message [email or web address] message sent Did you use a PCP flex slot to schedule this appointment? N/A Reason for Outreach HCC or suspected condition Payer: Payor: [employer] MEDICARE / Plan: [employer]egis / Product Type: HMO / Care Gap [...] 2023 3:49 PM documented in this encounter [facility] 01-22-2023 Miscellaneous Notes Pt notified via [employer] that rx were refilled and she needs [...] Kourtney Kincaid Ma documented in this encounter [facility] 01-22-2023 Miscellaneous Notes The following approved medication requests have been transmitted electronically. Requested Prescriptions Pending Prescriptions Disp Refills loratadine (CLARITIN) 10 mg tablet [Pharmacy Med Name: LORATADINE 10 MG TABLET] 90 tablet 3 Sig: TAKE 1 TABLET BY MOUTH EVERY DAY Jay Tran APRN.CNP Last office visit: 06/27/22 F/u scheduled: none Kourtney Kincaid Ma documented in this encounter [facility] 01-22-2023 Miscellaneous Notes The following approved medication requests have been transmitted electronically. Requested Prescriptions Pending Prescriptions Disp Refills lisinopril (ZESTRIL) 10 mg tablet 90 tablet 3 Sig: Take 1 tablet by mouth once daily. Jay Tran APRN.CNP Last office visit: 06/27/22 F/u scheduled: none documented in this encounter [facility] 12-11-2022 History of Present illness Narrative POPULATION HEALTH NAVIGATION OUTREACH Action/FYI HCC Gaps Due; E11.65 - Uncontrolled type 2 diabetes mellitus with hyperglycemia (HCC) - [id number] Last Billed 04/05/2022
[employer] Care Gaps Due; [...] condition Payer: Payor: HU[employer] MEDICARE / Plan: [employer]egis / Product Type: HMO / Care Gap [...] 2022 8:44 AM documented in this encounter [facility] 12-06-2022 Miscellaneous Notes Pt notified. Kourtney Kincaid [...] pcp, it's always a nurse or a Cyber Software Engineer that she has to communicate with and she is thinking about getting a new doctor. Patient is calling in stating that she went to [facility] her trulicity rx and it normally cost $42 and today they wanted $198 for it. patients states that [facility] ([facility]) just told her the cost of the medication increased and to call her providers office. documented in this encounter [facility] 11-02-2022 Miscellaneous Notes The following approved medication requests have been transmitted electronically. Requested Prescriptions Pending Prescriptions Disp Refills dulaglutide (TRULICITY) 0.75 mg/0.5 mL pen injector 2 mL 5 Sig: Inject 0.75 mg subcutaneously one time a week. Jay Tran APRN.CNP documented in this encounter [facility] 10-22-2022 Miscellaneous Notes Approved. PDMP website checked [...] Kourtney Kincaid Ma documented in this encounter [facility] 10-22-2022 Miscellaneous Notes The following approved medication requests have been transmitted electronically. Requested Prescriptions Pending Prescriptions Disp Refills atorvastatin (LIPITOR) 10 mg tablet 90 tablet 3 Sig: Take 1 tablet by mouth once daily. Jay Tran APRN.CNP documented in this encounter [facility] 10-09-2022 Miscellaneous Notes Called [facility] and aware specific NDC code needed, pharmacist advised was figured out an ready for [facility]. Patient was notified Mansi Green Ma PA [...] [employer] Name: [employer] Phone number: [phone] Patient ID number: [id number] Pharmacy Name: [facility] Telephone number: [phone] documented in this encounter [facility] 09-25-2022 Miscellaneous Notes Letter taken to Med [...] BMV. Please advise documented in this encounter [facility] 09-17-2022 Miscellaneous Notes OK to refill as ordered Deirdre Quiñones MD documented in this encounter [facility] 08-30-2022 Miscellaneous Notes Spoke with patient. Given [...] Odalis Valentino LPN documented in this encounter [facility] 08-16-2022 Miscellaneous Notes Patient returned call and [...] CMP to Dr Kumar's office fax # [phone] when they have resulted. Marcela Ross RN [...] over later. Fax # for Dr Kumar [phone]. Pt reports Dr Kumar has done an [...] call and advise. documented in this encounter [facility] 08-01-2022 Miscellaneous Notes Received PA for Tuan from [facility] but shows patient picked up today 08/01. Called and spoke to pharmacist at [facility] who verified no PA needed and went through. Mansi Green Ma documented in this encounter [facility] 07-26-2022 Miscellaneous Notes OK to refill as ordered Deirdre Quiñones MD Patient has been identified by name and date of : Yes Patient phones for refill(s): Requested Prescriptions Pending Prescriptions Disp Refills dulaglutide (TRULICITY) 0.75 mg/0.5 mL pen injector 4 Each 3 Date of last office visit in primary care: 04/05/22 Please advise. Thank you. Nirmala Blair LPN documented in this encounter [facility] 07-26-2022 Miscellaneous Notes OK to refill as orderedDeirdre Quiñones MD Sent a [employer] message for pt to come in and [...] Kamille Nova LPN documented in this encounter [facility] 07-23-2022 Miscellaneous Notes Approved PDMP website checked [...] Kourtney Kincaid Ma documented in this encounter [facility] 07-05-2022 History of Present illness Narrative Radiology [...] 2022 9:45 AM documented in this encounter [facility] 07-04-2022 Miscellaneous Notes Pt called and is [...] patient. Thank you. documented in this encounter [facility] 06-27-2022 Instructions Silvia Vazquez APRN.MANDY - 06/27/2022 [...] up as needed. documented in this encounter [facility] 06-27-2022 History of Present illness Narrative This [...] APRN.MANDY This note was partially generated using [employer] me to the Moon voice recognition system. Note was reviewed for accuracy. There may be minor misspellings or grammar miscues with [employer] to [employer] voice recognition. documented in this encounter [facility] 06-20-2022 Miscellaneous Notes The following approved medication [...] Lorenza Rivas Pss documented in this encounter [facility] 06-04-2022 Miscellaneous Notes The following approved medication [...] Steve Penny LPN documented in this encounter [facility] 05-21-2022 Miscellaneous Notes Last refilled on: xanax #60 with 2 refill on 04/23/22 to [facility]. Pt should have refills remaining. Pt notified via [employer]. Kourtney Kincaid Ma documented in this encounter [facility] 05-04-2022 Miscellaneous Notes The following approved medication requests have been transmitted electronically. Requested Prescriptions Pending Prescriptions Disp Refills dulaglutide (TRULICITY) 0.75 mg/0.5 mL pen injector 2 mL 0 Sig: Inject 0.75 mg subcutaneously one time a week. Inject dose once per week. Discard Pen After Jay Tran APRN.INTERIOR DESIGN PROFESSIONAL Patient phones requesting refills as follows: Requested Prescriptions Pending Prescriptions Disp Refills dulaglutide (TRULICITY) 0.75 mg/0.5 mL pen injector 2 mL 0 Sig: Inject 0.75 mg subcutaneously one time a week. Inject dose once per week. Discard Pen After PATRICE-04/05/22 Labs-04/05/22 NOV-06/19/22 med filled 04/05/22 Please review and advise. Odalis Valentino LPN documented in this encounter [facility] 04-23-2022 Miscellaneous Notes OK to refill as ordered Deirdre Quiñones MD Patient phones requesting refills as follows: Requested Prescriptions Pending Prescriptions Disp Refills ALPRAZolam (XANAX) 0.5 mg tablet 60 tablet 2 Sig: Take 1 tablet by mouth twice daily as needed for up to 90 days. PATRICE-04/05/22 Labs-04/05/22 NOV-06/19/22 med filled 01/17/22 Please review and advise. 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 She is interested in using injectable options, feels she is capable of giving herself an injection. Lipids: Denies any issues with current regimen of Lipitor 10 mg once daily. Neuro: Since her last visit pt fell at home in May hitting her head and was notified to go the ER by our office. Pt was admitted into [facility] on 05/11/21 with dx of subdural hematoma, [...] Past Histories independently gathered by the clinical network diagnostic support specialist and the remaining scribed note accurately describes [...] Quiñones MD. April 05, 2022 9:36 AM. Kourtnye Kincaid Ma documented in this encounter [facility] 03-23-2022 Miscellaneous Notes The following approved medication [...] patient. Ivette Broussard documented in this encounter [facility] 03-20-2022 Miscellaneous Notes The following approved medication [...] at the pharmacy documented in this encounter [facility] 01-17-2022 Miscellaneous Notes Approved PDMP website checked [...] Paty Reid Pss documented in this encounter [facility] 12-11-2021 Miscellaneous Notes TC to pt. LM to call office, ask for triage nurse to get update for loratadine. Updated pt that there are refills on requested medication and to call there pharm. Odalis Valentino LPN documented in this encounter [facility] 11-25-2021 Miscellaneous Notes Patient returned call and [...] request an antibiotic change. Patient went to [facility] the cefpodoxime 200 mg and the cost [...] Tanisha Connors RN documented in this encounter [facility] 11-23-2021 Miscellaneous Notes Images from the original note were not included. Patient returned call for results of chest xray. Results XR CHEST 2V FRONTAL/LAT (Order [id number]) Patient Info Patient Name Sex Sheree Egan ([id number]) Female 1945 11/23/2021 12:27 PM - Radiology, [place] In Impression IMPRESSION: No acute radiographic abnormality. Computer Numerical Control Machinist: PSCB Transcribe Date/Time: Nov 23 2021 12:24P [...] Result History XR CHEST 2V FRONTAL/LAT (Order #[id number]) on 11/23/2021 - Order Result History Report Result Information Status Provider Status Final result (11/23/2021 12:27 PM) Reviewed Exam Performed Date and Time 11/23/2021 12:17 PM Resulting Agency [facility] [id number] XR CHEST 2V FRONTAL/LAT: Result Notes Mansi Green Ma 11/23/2021 2:07 PM EDT Left message for patient on Tahir Sales MD 11/23/2021 2:00 PM EDT Normal chest xray. Continue treatment as discussed in office. Went over results, notes from Dr Sales with understanding. documented in this encounter [facility] 11-23-2021 History of Present illness Narrative Radiology [...] 2021 12:03 PM documented in this encounter [facility] 11-21-2021 Miscellaneous Notes No specific recommendations Deirdre [...] Brianne Carr RN documented in this encounter [facility] 11-16-2021 History of Present illness Narrative CC: [...] Maura Morillo APRN.MANDY documented in this encounter [facility] 10-20-2021 Miscellaneous Notes Duplication. Pt notified. Kamille [...] patient. Yasmin Reid documented in this encounter [facility] 10-20-2021 Miscellaneous Notes The following approved medication [...] Francisca Chappell LPN documented in this encounter [facility] 09-29-2021 Miscellaneous Notes Patient notified of results [...] Deirdre Quiñones MD documented in this encounter [facility] 09-26-2021 Nurse Note DM letter faxed to pt's Eye Doctor, Dr. Say Gonsalez at F#: [phone]. Radha Del Rosario Ma documented in this encounter [facility] 09-26-2021 Instructions Radha Del Rosario Ma - 09/26/2021 10:30 AM EDT Dizziness - Decrease blood pressure medication Lisinopril 20 mg daily to 10 mg. New prescription has been sent into pharmacy. documented in this encounter [facility] 09-26-2021 History of Present illness Narrative Chief [...] our office. Pt was admitted into [facility] on 05/11/21 with dx of subdural hematoma, [...] (FLONASE) 50 mcg/actuation nasal spray Use 1 Callaway in each nostril once daily as needed. [...] Past Histories independently gathered by the clinical network diagnostic support specialist and the remaining scribed note accurately describes [...] Del Rosario Ma documented in this encounter [facility] 07-18-2021 Note HNO ID: [id number] Author: Darrick Pierre MD Service: ? Author Type: Physician Type: Progress Notes Filed: 07/18/2021 11:27 AM Note Text: NEUROSURGERY FOLLOW UP OFFICE NOTE Dr. Darrick Pierre MD, FACS Date of visit:July 18, 2021 Patient Name: Ms.Alma Darshan Chavez Date of : 1945 Current Age: [age] year old Sex: female MRN/E# [id number] Last Office Visit: June 08, 2021 Chief [...] (FLONASE) 50 mcg/actuation nasal spray Use 1 Callaway in each nostril once daily as needed. [...] daily. 90 (more content not included)... [facility] 06-08-2021 Note HNO ID: [id number] Author: Darrick Pierre MD Service: ? Author Type: Physician Type: Progress Notes Filed: 06/08/2021 11:57 AM Note Text: NEUROSURGERY FOLLOW UP OFFICE NOTE Dr. Darrick Pierre MD, [facility] Date of visit: June 08, 2021 Patient Name: Ms.Alma Darshan Chavez Date of : 1945 Current Age: [age] year old Sex: female MRN/E# [id number] Last Office Visit: May 25, 2021 Chief [...] (FLONASE) 50 mcg/actuation nasal spray Use 1 Callaway in each nostril once daily as needed. [...] mg ta (more content not included)... [facility] 05-25-2021 Note HNO ID: [id number] Author: Darrick Pierre MD Service: ? Author Type: Physician Type: Progress Notes Filed: 05/25/2021 10:56 AM Note Text: NEUROSURGERY FOLLOW UP OFFICE NOTE Dr. Darrick Pierre MD, FACS Date of visit: May 25, 2021 Patient Name: Ms.Alma Darshan Chavez Date of : 1945 Current Age: [age] year old Sex: female MRN/E# [id number] Last Office Visit: Hospital follow-up Chief Complaint: [...] (FLONASE) 50 mcg/actuation nasal spray Use 1 Callaway in each nostril once daily as needed. [...] 4000 m (more content not included)... [facility] 05-25-2021 Note HNO ID: [id number] Author: RT Clayton(R) Service: Radiology Author Type: [...] Scott(R) May 25, 2021 9:[address] [facility] 05-13-2021 Note HNO ID: [id number] Author: Kalia Tirado APRN.INTERIOR DESIGN PROFESSIONAL Service: Neurosurgery Author Type: Nurse Practitioner Type: [...] (HCC) 05/11/2021 - TBI (traumatic brain injury) ([facility]) 05/11/2021 - Fall 05/11/2021 - Subarachnoid hemorrhage following injury, no loss of consciousness ([facility]) 05/11/2021 Sheree Chavez is a 75 year old female fall from stool, CHI/SDH/SAH/contusion. - Neuro as above - Neuro checks per protocol - Ok for d/c - 2 wk f/u with Dr Pierre with CTH requested - No AC/AP until f/u SIGNATURE: Kalia Tirado APRN.CNP PATIENT NAME: Sheree Chavez DATE: May 13, 2021 TIME: 11:39 AM Pager: [phone] [facility] 05-13-2021 Note HNO ID: [id number] Author: Margret Dawson APRN.CNP Service: General Surgery Author Type: Nurse Practitioner Type: Progress Notes Filed: 05/13/2021 8:28 AM Note Text: Trauma Surgery Progress Note SERVICE DATE: 05/13/2021 Trauma Service Pager: For questions or concerns Mon-Fri 6a-5p please page [phone]. After 5pm and on Weekends and Holidays, please page [phone] if in ICU or [phone] if on RNF. SUBJECTIVE: NAEON. Patient hopeful [...] (HCC) 05/11/2021 - TBI (traumatic brain injury) ([facility]) 05/11/2021 - Fall 05/11/2021 - Subarachnoid hemorrhage following injury, no loss of consciousness ([facility]) 05/11/2021 75 year old female [...] home today if cleared by neurosurgery, PT, SCHOOL BUS AIDE PPX: 1. DVT: SCDs, mobililze 2. Ulcer: n/a 3. Vit D level if > 65 yo: pending Consulted Services: 1. SICU 2. Neurosurgery 3. Orthopedic surgery 4. SCHOOL BUS AIDE Dispo Plannin. PT/OT recs pending. Case management following. Incidentals: 1. None Follow Up Needs: 1. NSGY - Dr. Pierre 2. PCP Staff Trauma Surgeon: Dr. Raymundo SIGNATURE: Margret Dawson APRN.CNP PATIENT NAME: Sheree Chavez DATE: May 13, 2021 TIME: 8:19 AM Pager: see below Trauma Service Pager: For questions or concerns Mon-Fri 6a-5p please page [phone]. After 5pm and on Weekends and Holidays, please page [phone] if in ICU or [phone] [facility] 05-13-2021 Note HNO ID: [id number] Author: Interface Note Service: ? Author Type: ? Type: Progress Notes Filed: 05/13/2021 3:09 AM Note Text: Epic Scheduled Downtime: 05/13/2021 1:00:00 AM to 05/13/2021 2:52:[address] [facility] 05-12-2021 Note HNO ID: [id number] Author: Scarlett Foster RPh Service: Pharmacy Author Type: Pharmacist Type: Plan of Care Filed: 05/12/2021 4:55 PM Note Text: PHARMACY MEDICATION REVIEW Patient Name: Sheree Chavez : 1945 The following medications were updated within the [facility] medication list: Medications ADDED to [facility] medication list ? cannabidiol, CBD, (CANNABIDIOL ORAL) [...] (Pt reports OTC use) Medications CHANGED on [facility] medication list ? ACETAMINOPHEN 500 MG TAB (Directions clarified) ? famotidine (PEPCID) 20 mg tablet (Pt reports use 1-2 days weekly - Directions clarified) Medications REMOVED from [facility] medication list ? Cholecalciferol, Vitamin D3, 2,000 unit cap (Pt reports no longer taking) ? fluticasone (FLONASE) 50 mcg/actuation nasal spray ([facility] ? loratadine (CLARITIN) 10 mg tablet (Pt reports no longer taking) Additional comments: Verified medication information with patient, pharmacy and chart review. Patient stated no longer taking Vit D or Claritin - removed from med list and duplicate fluticasone order removed. Pharmacy confirmed fill dates current. The below information represents the best possible medication history: Yes Medication history completed by: Bilingual Student Tutor: Eun Crouch (Repair Service Clerk) and Sd Hernandez (Gunstock Spray Unit Feeder) Source of history: Patient:Reliability of source: Appears reliable, clearly identified: Medication name, Medication dose, Medication route and Medication frequency, Pharmacy records: [facility] [phone] [facility] records Medication nonadherence identified: No barriers noted Reconciliation completed: Yes All [facility] medications addressed by LIP Patient interested in Bedside Delivery Services or using [facility] at discharge? No Preferred outpatient pharmacy: [id number] [place] [phone] - [address] [facility] [phone] [id number] Allergies: Palm Oil GI Upset Accupril [Quinapril* Other: See Comments Comment:Pt unsure why this is listed. Not sure what allergy is Asa [Salicylates] GI Upset Penicillins Hives Vicodin [Hydrocodon* GI Upset Bees Codeine Intolerance Metformin GI Upset Comment:diarrhea higher dose Prior to Admission medications as of 05/12/21 3618 Medication Sig Last Dose Taking therapeutic multivitamin w/ iron (THERAGRAN-M) 27-0.4 mg tablet Take 1 tablet by mouth once daily. Yes fluticasone (FLONASE) 50 mcg/actuation nasal spray Use 1 [place] in each nostril once daily as needed. [...] day (FROM ALL SOURCES) Yes Eun Crouch (Repair Service Clerk) [id number] 05/12/2021 Sd Hernandez (Charge Account Identification Clerk) 05/12/2021 I agree with the medication history completed by the pharmacy specialist above, making changes as necessary in RED Scarlett Foster, DialloD PGY-2 Critical Care Locomotive Operator 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 Last discharge within 30 days: No Advance Directive: Current Advance Directive: None Orthopedic Nurse Attempted to Assist with AD Completion: Yes [...] Glucometer Has the Patient Been in a Usp Facility in the Past 30 days?: No [...] Completely I feel financially burdened by my [id number] expenses for my prescription medication:: 0 - Disagree Completely Risk Score: 0 Patient is categorized as: Low risk < 2 Are you interested in bedside delivery of your medications? Yes ASSESSMENT AND PLAN: Medical Needs: Medical Needs: None Psychosocial Needs: Psychosocial Needs: None FREEDOM OF CHOICE EXPLAINED: [place] of Choice Given: No Reason Not Given: Unable to complete with this assessment - revisit POTENTIAL TRANSITION PLANS Home;Home Care;Usp Facility/Intermediate Care Facility;To Be Determined Chart reviewed. The pateint is admitted due to fall at home ? Spoke with patient at the bedside. Explained care management role. Functional: the patient lives in ranch home with basement and has 2-3 steps to get inside the house. Transportation: independent and drives to appointments. Equipment Prior to Admission: none Support: Sammi Chavez (Daughter) [phone] and Lauren Chavez (son) [phone] Pharmacy: [facility]/pharmacy #[id number] [place] [address] PCP: Deirdre Quiñones MD The patient was [...] 12, 2021 TIME: 9:20 AM PAGER/CONTACT #: [phone] [facility] 05-12-2021 Note HNO ID: [id number] Author: Bridgett Guerrero PA-C Service: Neurosurgery Author Type: Physician Engineering Agent Type: Progress Notes Filed: 05/12/2021 1:15 PM [...] May 12, 2021 TIME: 1:06 PM Pager: [phone] [facility] 05-12-2021 Note HNO ID: [id number] Author: David Garcia DO Service: General Surgery [...] questions or concerns Mon-Fri 6a-5p please page [phone]. After 5pm and on Weekends and Holidays, please page [phone] if in ICU or [phone] if on RNF. SUBJECTIVE: NAEO, AF, HDS [...] (HCC) 05/11/2021 - TBI (traumatic brain injury) ([facility]) 05/11/2021 - Fall 05/11/2021 - Subarachnoid hemorrhage following injury, no loss of consciousness ([facility]) 05/11/2021 75 year old female [...] None Fol (more content not included)... [facility] 05-12-2021 Note HNO ID: [id number] Author: Chacho Ocampo MD Service: General Surgery [...] for o (more content not included)... [facility] 05-13-2014 History of Past i llness Narrative Problem Noted Date Resolved Date Essential hypertension, benign 1 07/13/2013 DIABETES MELLITUS TYPE II-UNCOMPL 05/13/2014 documented as of this encounter (statuses as of 09/27/2021) [facility] History of Past illness Narrative* Problem Noted Date Resolved Date Essential hypertension, benign 1 07/13/2013 DIABETES MELLITUS TYPE II-UNCOMPL 05/13/2014 documented as of this encounter (statuses as of 09/29/2021) [facility]2014 History of Past illness Narrative* Problem Noted Date Resolved Date Essential hypertension, benign 1 07/13/2013 DIABETES MELLITUS TYPE II-UNCOMPL 05/13/2014 documented as of this encounter (statuses as of 10/20/2021) [facility]2014 History of Past illness Narrative* Problem Noted Date Resolved Date Essential hypertension, benign 1 07/13/2013 DIABETES MELLITUS TYPE II-UNCOMPL 05/13/2014 documented as of this encounter (statuses as of 10/20/2021) [facility]2014 History of Past illness Narrative* Problem Noted Date Resolved Date Essential hypertension, benign 1 07/13/2013 DIABETES MELLITUS TYPE II-UNCOMPL 05/13/2014 documented as of this encounter (statuses as of 11/16/2021) [facility]2014 History of Past illness Narrative* Problem Noted Date Resolved Date Essential hypertension, benign 1 07/13/2013 DIABETES MELLITUS TYPE II-UNCOMPL 05/13/2014 documented as of this encounter (statuses as of 11/21/2021) [facility] History of Past illness Narrative* Problem Noted Date Resolved Date Essential hypertension, benign 1 07/13/2013 DIABETES MELLITUS TYPE II-UNCOMPL 05/13/2014 documented as of this encounter (statuses as of 11/23/2021) [facility] History of Past illness Narrative* Problem Noted Date Resolved Date Essential hypertension, benign 1 07/13/2013 DIABETES MELLITUS TYPE II-UNCOMPL 05/13/2014 documented as of this encounter (statuses as of 11/25/2021) [address] History of Past illness Narrative* Problem Noted Date Resolved Date Essential hypertension, benign 1 07/13/2013 DIABETES MELLITUS TYPE II-UNCOMPL 05/13/2014 documented as of this encounter (statuses as of 12/14/2021) [facility] History of Past illness Narrative* Problem Noted Date Resolved Date Essential hypertension, benign 1 07/13/2013 DIABETES MELLITUS TYPE II-UNCOMPL 05/13/2014 documented as of this encounter (statuses as of 01/17/2022) [facility] History of Past illness Narrative* Problem Noted Date Resolved Date Essential hypertension, benign 1 07/13/2013 DIABETES MELLITUS TYPE II-UNCOMPL 05/13/2014 documented as of this encounter (statuses as of 03/20/2022) [place] [address]-2014 History of Past illness Narrative* Problem Noted Date Resolved Date Essential hypertension, benign 1 07/13/2013 DIABETES MELLITUS TYPE II-UNCOMPL 05/13/2014 documented as of this encounter (statuses as of 03/23/2022) [facility] History of Past illness Narrative* Problem Noted Date Resolved Date Essential hypertension, benign 1 07/13/2013 DIABETES MELLITUS TYPE II-UNCOMPL 05/13/2014 documented as of this encounter (statuses as of 04/06/2022) [facility] History of Past illness Narrative* Problem Noted Date Resolved Date Essential hypertension, benign 1 07/13/2013 DIABETES MELLITUS TYPE II-UNCOMPL 05/13/2014 documented as of this encounter (statuses as of 04/19/2022) [facility] History of Past illness Narrative* Problem Noted Date Resolved Date Essential hypertension, benign 1 07/13/2013 DIABETES MELLITUS TYPE II-UNCOMPL 05/13/2014 documented as of this encounter (statuses as of 04/23/2022) [facility] History of Past illness Narrative* Problem Noted Date Resolved Date Essential hypertension, benign 1 07/13/2013 DIABETES MELLITUS TYPE II-UNCOMPL 05/13/2014 documented as of this encounter (statuses as of 05/04/2022) [facility] History of Past illness Narrative* Problem Noted Date Resolved Date Essential hypertension, benign 1 07/13/2013 DIABETES MELLITUS TYPE II-UNCOMPL 05/13/2014 documented as of this encounter (statuses as of 05/04/2022) [facility] History of Past illness Narrative* Problem Noted Date Resolved Date Essential hypertension, benign 1 07/13/2013 DIABETES MELLITUS TYPE II-UNCOMPL 05/13/2014 documented as of this encounter (statuses as of 05/21/2022) [facility] History of Past illness Narrative* Problem Noted Date Resolved Date Essential hypertension, benign 1 07/13/2013 DIABETES MELLITUS TYPE II-UNCOMPL 05/13/2014 documented as of this encounter (statuses as of 06/04/2022) [facility] History of Past illness Narrative* Problem Noted Date Resolved Date Essential hypertension, benign 1 07/13/2013 DIABETES MELLITUS TYPE II-UNCOMPL 05/13/2014 documented as of this encounter (statuses as of 06/20/2022) [facility] History of Past illness Narrative* Problem Noted Date Resolved Date Essential hypertension, benign 1 07/13/2013 DIABETES MELLITUS TYPE II-UNCOMPL 05/13/2014 documented as of this encounter (statuses as of 06/27/2022) [facility] History of Past illness Narrative* Problem Noted Date Resolved Date Essential hypertension, benign 1 07/13/2013 DIABETES MELLITUS TYPE II-UNCOMPL 05/13/2014 documented as of this encounter (statuses as of 07/10/2022) [facility] History of Past illness Narrative* Problem Noted Date Resolved Date Essential hypertension, benign 1 07/13/2013 DIABETES MELLITUS TYPE II-UNCOMPL 05/13/2014 documented as of this encounter (statuses as of 07/23/2022) [facility] History of Past illness Narrative* Problem Noted Date Resolved Date Essential hypertension, benign 1 07/13/2013 DIABETES MELLITUS TYPE II-UNCOMPL 05/13/2014 documented as of this encounter (statuses as of 07/26/2022) [facility]2014 History of Past illness Narrative* Problem Noted Date Resolved Date Essential hypertension, benign 1 07/13/2013 DIABETES MELLITUS TYPE II-UNCOMPL 05/13/2014 documented as of this encounter (statuses as of 07/26/2022) [address]2014 History of Past illness Narrative* Problem Noted Date Resolved Date Essential hypertension, benign 1 07/13/2013 DIABETES MELLITUS TYPE II-UNCOMPL 05/13/2014 documented as of this encounter (statuses as of 08/01/2022) [address]2014 History of Past illness Narrative* Problem Noted Date Resolved Date Essential hypertension, benign 1 07/13/2013 DIABETES MELLITUS TYPE II-UNCOMPL 05/13/2014 documented as of this encounter (statuses as of 08/16/2022) [address]2014 History of Past illness Narrative* Problem Noted Date Resolved Date Essential hypertension, benign 1 07/13/2013 DIABETES MELLITUS TYPE II-UNCOMPL 05/13/2014 documented as of this encounter (statuses as of 08/31/2022) [address]2014 History of Past illness Narrative* Problem Noted Date Resolved Date Essential hypertension, benign 1 07/13/2013 DIABETES MELLITUS TYPE II-UNCOMPL 05/13/2014 documented as of this encounter (statuses as of 09/18/2022) [place] [address] History of Past illness Narrative* Problem Noted Date Resolved Date Essential hypertension, benign 1 07/13/2013 DIABETES MELLITUS TYPE II-UNCOMPL 05/13/2014 documented as of this encounter (statuses as of 09/25/2022) [place] [address] History of Past illness Narrative* Problem Noted Date Resolved Date Essential hypertension, benign 1 07/13/2013 DIABETES MELLITUS TYPE II-UNCOMPL 05/13/2014 documented as of this encounter (statuses as of 09/25/2022) [place] [address]2014 History of Past illness Narrative* Problem Noted Date Resolved Date Essential hypertension, benign 1 07/13/2013 DIABETES MELLITUS TYPE II-UNCOMPL 05/13/2014 documented as of this encounter (statuses as of 10/09/2022) [facility]2014 History of Past illness Narrative* Problem Noted Date Resolved Date Essential hypertension, benign 1 07/13/2013 DIABETES MELLITUS TYPE II-UNCOMPL 05/13/2014 documented as of this encounter (statuses as of 10/22/2022) [address]2014 History of Past illness Narrative* Problem Noted Date Resolved Date Essential hypertension, benign 1 07/13/2013 DIABETES MELLITUS TYPE II-UNCOMPL 05/13/2014 documented as of this encounter (statuses as of 11/02/2022) [address]2014 History of Past illness Narrative* Problem Noted Date Resolved Date Essential hypertension, benign 1 07/13/2013 DIABETES MELLITUS TYPE II-UNCOMPL 05/13/2014 documented as of this encounter (statuses as of 12/07/2022) [address]2014 History of Past illness Narrative* Problem Noted Date Resolved Date Essential hypertension, benign 1 07/13/2013 DIABETES MELLITUS TYPE II-UNCOMPL 05/13/2014 documented as of this encounter (statuses as of 12/12/2022) [address]2014 History of Past illness Narrative* Problem Noted Date Diagnosed Date Resolved Date Essential hypertension, benign 05/13/2014 DIABETES MELLITUS TYPE II-UNCOMPL 05/13/2014 documented as of this encounter (statuses as of 01/22/2023) [address]2014 History of Past illness Narrative* Problem Noted Date Diagnosed Date Resolved Date Essential hypertension, benign 05/13/2014 DIABETES MELLITUS TYPE II-UNCOMPL 05/13/2014 documented as of this encounter (statuses as of 01/22/2023) [address]2014 History of Past illness Narrative* Problem Noted Date Diagnosed Date Resolved Date Essential hypertension, benign 05/13/2014 DIABETES MELLITUS TYPE II-UNCOMPL 05/13/2014 documented as of this encounter (statuses as of 01/22/2023) [address] History of Past illness Narrative* Problem Noted Date Diagnosed Date Resolved Date Essential hypertension, benign 05/13/2014 DIABETES MELLITUS TYPE II-UNCOMPL 05/13/2014 documented as of this encounter (statuses as of 02/06/2023) [address] History of Past illness Narrative* Problem Noted Date Diagnosed Date Resolved Date Essential hypertension, benign 05/13/2014 DIABETES MELLITUS TYPE II-UNCOMPL 05/13/2014 documented as of this encounter (statuses as of 04/19/2023) [address] History of Past illness Narrative* Problem Noted Date Diagnosed Date Resolved Date Essential hypertension, benign 05/13/2014 DIABETES MELLITUS TYPE II-UNCOMPL 05/13/2014 documented as of this encounter (statuses as of 04/19/2023) [place] [address] History of Past illness Narrative* Problem Noted Date Diagnosed Date Resolved Date Essential hypertension, benign 05/13/2014 DIABETES MELLITUS TYPE II-UNCOMPL 05/13/2014 documented as of this encounter (statuses as of 04/20/2023) [place] [address]2014 History of Past illness Narrative* Problem Noted Date Diagnosed Date Resolved Date Essential hypertension, benign 05/13/2014 DIABETES MELLITUS TYPE II-UNCOMPL 05/13/2014 documented as of this encounter (statuses as of 04/23/2023) [facility] History of Past illness Narrative* Problem Noted Date Diagnosed Date Resolved Date Essential hypertension, benign 05/13/2014 DIABETES MELLITUS TYPE II-UNCOMPL 05/13/2014 documented as of this encounter (statuses as of 04/25/2023) [facility] History of Past illness Narrative* Problem Noted Date Diagnosed Date Resolved Date Essential hypertension, benign 05/13/2014 DIABETES MELLITUS TYPE II-UNCOMPL 05/13/2014 documented as of this encounter (statuses as of 04/29/2023) [facility]2014 History of Past illness Narrative* Problem Noted Date Diagnosed Date Resolved Date Essential hypertension, benign 05/13/2014 DIABETES MELLITUS TYPE II-UNCOMPL 05/13/2014 documented as of this encounter (statuses as of 10/22/2023) [facility] note* Diagnosis Type 2 diabetes mellitus without complication, without long-term current use of insulin ([facility])- Primary Diarrhea, unspecified type Hypertension, unspecified type Hypothyroidism, unspecified type Mixed hyperlipidemia Anxiety state Anxiety state, unspecified Subarachnoid hemorrhage following injury, no loss of consciousness, sequela ([facility]) Tobacco use Tobacco use disorder Tick bite, unspecified site, initial encounter [facility]* Diagnosis Type 2 diabetes mellitus without complication, without long-term current use of insulin ([facility]) [facility]* Diagnosis Anxiety state Anxiety state, unspecified documented in this encounter [facility]* Diagnosis Anxiety state Anxiety state, unspecified [facility]* Diagnosis Congestion of nasal sinus- Primary Other diseases of nasal cavity and sinuses documented in this encounter [facility] note* Diagnosis Anxiety state Anxiety state, unspecified documented [facility] this [facility]* Diagnosis Hypothyroidism, unspecified type Type 2 diabetes mellitus without complication, without long-term current use of insulin (HCC) Anxiety state Anxiety state, unspecified documented in this encounter [facility] note* Diagnosis Uncontrolled type 2 diabetes mellitus with hyperglycemia (HCC)- Primary Mixed hyperlipidemia Hypertension, unspecified type Anxiety state Anxiety state, unspecified Fall, initial encounter Hypothyroidism, unspecified type Arthritis of both hands documented in this encounter [facility] note* Diagnosis Anxiety state Anxiety state, unspecified Type 2 diabetes mellitus without complication, without long-term current use of insulin (HCC) [facility] encounter [facility]* Diagnosis Anxiety state Anxiety state, unspecified [facility]* Diagnosis Uncontrolled type 2 diabetes mellitus with hyperglycemia (HCC) documented [facility] this encounter [facility]* Diagnosis Anxiety state Anxiety state, unspecified documented in this encounter [facility]* Diagnosis Type 2 diabetes mellitus without complication, without long-term current use of insulin (HCC) Anxiety state Anxiety state, unspecified documented in this encounter [facility]* Diagnosis Sciatica, right side- Primary documented in this encounter [facility]* Diagnosis Hip pain- Primary Pain in joint, pelvic region and thigh documented in this encounter [facility]* Diagnosis Anxiety state Anxiety state, unspecified documented [facility] this encounter [facility]* Diagnosis Uncontrolled type 2 diabetes mellitus with hyperglycemia (HCC) documented in this encounter [facility]* Diagnosis Uncontrolled type 2 diabetes mellitus with hyperglycemia (HCC) documented in this encounter [facility]* Diagnosis Mixed hyperlipidemia [facility]* Diagnosis Uncontrolled type 2 diabetes mellitus with hyperglycemia (HCC)- Primary Mixed hyperlipidemia [facility] this encounter [facility]* Diagnosis Hypertension, unspecified type documented [facility] this encounter [facility]* Diagnosis Anxiety state Anxiety state, unspecified Uncontrolled type 2 diabetes mellitus with hyperglycemia (HCC) documented in this encounter [facility] noteNo assessment information availableWDunlap [facility] Work Phone: Evaluation note* Diagnosis Hypothyroidism, unspecified type [facility] encounter [facility]* Diagnosis Onset Date Resolution Status Spinal stenosis at L4-L5 level acute Greater trochanteric bursitis of right hip noneactive IT band syndrome noneactive [facility] Work Phone: Evaluation note* Diagnosis Chest tightness- Primary Other chest pain documented in this encounter [facility]* Diagnosis Closed fracture of one rib of left side, initial encounter- Primary Rib injury Sprain of ribs documented in this encounter [facility]* Diagnosis Anxiety state Anxiety state, unspecified documented [facility] this encounter [facility]* Diagnosis Medicare annual wellness visit, initial- Primary Routine general medical examination at a [facility] Type 2 diabetes mellitus without complication, without long-term current use of insulin (HCC) Hypertension, unspecified type Mixed hyperlipidemia Anxiety state Anxiety state, unspecified Hypothyroidism, unspecified type History of COVID-19 documented in this encounter [facility]* Diagnosis Hypertension, unspecified type documented in this encounter [facility]* Diagnosis Anxiety state Anxiety state, unspecified documented [facility] this encounter [facility]* Diagnosis Anxiety state Anxiety state, unspecified Hypertension, unspecified type documented [facility]* Diagnosis Mixed hyperlipidemia Anxiety state Anxiety state, unspecified Hypertension, unspecified type [facility] this encounter [facility]* Diagnosis Acute hip pain, right documented in this encounter [facility]* Diagnosis Hip pain Pain in joint, pelvic region and thigh documented in this encounter [facility]* Diagnosis Viral URI with cough Acute upper respiratory infections of unspecified site [facility]* Diagnosis Anxiety state Anxiety state, unspecified documented [facility] encounter [facility] [facility] Diagnosis Hypothyroidism, unspecified type Anxiety state Anxiety state, unspecified [facility] Diagnosis Mixed hyperlipidemia- Primary Type 2 diabetes mellitus without complication, without long-term current use of insulin (HCC) Hypertension, unspecified type Hypothyroidism, unspecified type [facility] this [facility] Diagnosis Medicare annual wellness visit, subsequent- Primary Routine general medical examination at a [facility] care facility Sciatica, right side Acute pain of left knee Type 2 diabetes mellitus without complication, without long-term current use of insulin (HCC) Hypothyroidism, unspecified type Asthma due to seasonal allergies Anxiety state Anxiety state, unspecified Smoking Tobacco use disorder Screening for depression [facility] Diagnosis Anxiety state Anxiety state, unspecified documented in this encounter [facility] note* Diagnosis Type 2 diabetes mellitus without complication, without long-term current use of insulin (HCC)- Primary Sciatica, right side Hypothyroidism, unspecified type Anxiety state Anxiety state, unspecified Asthma due to seasonal allergies Mixed hyperlipidemia Smoking Tobacco use disorder documented in this encounter [facility] note* Diagnosis Asthma due to seasonal allergies Sciatica, right side Type 2 diabetes mellitus without complication, without long-term current use of insulin (HCC) documented in this encounter [facility] note* Diagnosis Type 2 diabetes mellitus with other specified complication, without long-term current use of insulin (HCC)- Primary documented in this encounter [facility] note* Diagnosis Anxiety state Anxiety state, unspecified documented in this encounter [facility] note* Diagnosis Type 2 diabetes mellitus without complication, without long-term current use of insulin (HCC) documented in this encounter [facility] note* Diagnosis Anxiety state Anxiety state, unspecified documented in this encounter [facility] note* Diagnosis Mixed hyperlipidemia Hypertension, unspecified type [facility] Additional Instructions Ambulatory pulse ox 97% on room air. Monitor pulse ox at home, if drops below 88 return to ED for reevaluation otherwise follow-up with your doctor.[facility] Work Phone: Reason for referral (narrative)* Diagnostic Procedure Only (Routine) - Closed Specialty Diagnoses / Procedures Referred By Contac t Referred To Contact XR IMAGING Diagnoses Hip pain Procedures XR HIP BILATERAL 5V PEL/AP/LAT EACH HIP RADEX HIPS BILATERAL WITH PELVIS MINIMUM 5 VIEWS Silvia Vazquez, OLIVIA [address] [place] [address] Xr Imaging Referral ID Status Reason Start Date Expiration Date V isits Requested Visits Authorized [id number] Closed Auto-Generate d Referral 07/04/2022 08/03/2023 1 1 [facility] for referral (narrative)* Diagnostic Procedure Only (Urgent) - Closed Specialty Diagnoses / Procedures Referred By Contac t Referred To Contact XR IMAGING Diagnoses Rib injury Procedures XR RIBS/CHEST 3V AP RIB/OBLS/CXR LEFT RADEX RIBS UNI W/POSTEROANT CH MINIMUM 3 VIEWS Spencer Lopez APRN.INTERIOR DESIGN PROFESSIONAL [address] [place] [address] [place] [address] Referral ID Status Reason Start Date Expiration Date V isits Requested Visits Authorized [id number] Closed Auto-Generate d Referral 04/22/2023 05/21/2024 1 1 [facility] for referral (narrative)* Diagnostic Procedure Only (Urgent) - Closed Specialty Diagnoses / Procedures Referred By Contac t Referred To Contact XR IMAGING Diagnoses Acute hip pain, right Procedures XR HIP GENERAL 3V PELV/AP/LAT RIGHT RADEX HIP UNILATERAL WITH PELVIS 2-3 VIEWS David Alexis MD [address] [place] [address] [place] [address] Referral ID Status Reason Start Date Expiration Date V isits Requested Visits Authorized [id number] Closed Auto-Generate d Referral 11/22/2022 12/22/2023 1 1 [facility] for referral (narrative)* Diagnostic Procedure Only (Routine) - Closed Specialty Diagnoses / Procedures Referred By Contac t Referred To Contact XR IMAGING Diagnoses Hip pain Procedures XR HIP BILATERAL 5V PEL/AP/LAT EACH HIP RADEX HIPS BILATERAL WITH PELVIS MINIMUM 5 VIEWS Silvia Vazquez APRN.INTERIOR DESIGN PROFESSIONAL [address] [place] [address] [place] [address] Referral ID Status Reason Start Date Expiration Date V isits Requested Visits Authorized [id number] Closed Auto-Generate d Referral 07/04/2022 08/03/2023 1 1 [facility] for visit Narrative* Diagnostic Procedure Only (Urgent) - Closed Specialty Diagnoses / Procedures Referred By Contac t Referred To Contact XR IMAGING Diagnoses Rib injury Procedures XR RIBS/CHEST 3V AP RIB/OBLS/CXR LEFT RADEX RIBS UNI W/POSTEROANT CH MINIMUM 3 VIEWS Spencer Lopez APRN.INTERIOR DESIGN PROFESSIONAL [address] [place] [address] [place] [address] Referral ID Status Reason Start Date Expiration Date V isits Requested Visits Authorized [id number] Closed Auto-Generate d Referral 04/22/2023 05/21/2024 1 1 [facility] for visit Narrative* Diagnostic Procedure Only (Urgent) - Closed Specialty Diagnoses / Procedures Referred By Contac t Referred To Contact XR IMAGING Diagnoses Acute hip pain, right Procedures XR HIP GENERAL 3V PELV/AP/LAT RIGHT RADEX HIP UNILATERAL WITH PELVIS 2-3 VIEWS David Alexis MD [address] [place] [address] [place] [address] Referral ID Status Reason Start Date Expiration Date V isits Requested Visits Authorized [id number] Closed Auto-Generate d Referral 11/22/2022 12/22/2023 1 1 [facility] for visit Narrative* Diagnostic Procedure Only (Routine) - Closed Specialty Diagnoses / Procedures Referred By Contac t Referred To Contact XR IMAGING Diagnoses Hip pain Procedures XR HIP BILATERAL 5V PEL/AP/LAT EACH HIP RADEX HIPS BILATERAL WITH PELVIS MINIMUM 5 VIEWS Silvia Vazquez APRN.INTERIOR DESIGN PROFESSIONAL [address] [place] [address] [place] [address] Referral ID Status Reason Start Date Expiration Date V isits Requested Visits Authorized [id number] Closed Auto-Generate d Referral 07/04/2022 08/03/2023 1 1 [facility] Summary Purpose Family History No Family History Records FoundNo Family History Records FoundNo Family History Records Found Advance Directives No Advanced Directives Records FoundDocuments on File Type Date Recorded 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 Advance Directive(s) 05/11/2021 4:29 PM Advance Directive Response Recorded Date/ Time Living Will No February 22 10:11pm Power of Card Doffer No February 22 023 10:11pm Advance Directive Response Recorded Date/ Time Living Will No April 19 8:36pm Power of Card Doffer No April 19, 2023 8:36pm Medications Administered [...] section and content) DATE CREATED AUTHOR 07/19/2021 [facility] DATE CREATED AUTHOR AUTHOR'S ORGANIZ ATION 03/02/2023 [facility] DATE CREATED AUTHOR AUTHOR'S ORGANIZ ATION 05/06/2025 [facility] Source Comments (unrecognize d section and content) In the event this informatio n is protected by the Federal Confidentiality of Alcohol and Drug Abuse Patient Records regulations: The Federal rules restrict any use of the information to criminally investigate or prosecute any alcohol or drug abuse patient.[facility] the event this information is protected by the Federal Confidentiality of Alcohol and Drug Abuse Patient Records regulations: The Federal rules restrict any use of the information to criminally investigate or prosecute any alcohol or drug abuse patient.[facility] the event this information is protected by the Federal Confidentiality of Alcohol and Drug Abuse Patient Records regulations: The Federal rules restrict any use of the information to criminally investigate or prosecute any alcohol or drug abuse patient.[facility] the event this information is protected by the Federal Confidentiality of Alcohol and Drug Abuse Patient Records regulations: The Federal rules restrict any use of the information to criminally investigate or prosecute any alcohol or drug abuse patient.[facility]In the event this information is protected by the Federal Confidentiality of Alcohol and Drug Abuse Patient Records regulations: The Federal rules restrict any use of the information to criminally investigate or prosecute any alcohol or drug abuse patient.[facility]In the event this information is protected by the Federal Confidentiality of Alcohol and Drug Abuse Patient Records regulations: The Federal rules restrict any use of the information to criminally investigate or prosecute any alcohol or drug abuse patient.[facility] the event this information is protected by the Federal Confidentiality of Alcohol and Drug Abuse Patient Records regulations: The Federal rules restrict any use of the information to criminally investigate or prosecute any alcohol or drug abuse patient.[facility] the event this information is protected by the Federal Confidentiality of Alcohol and Drug Abuse Patient Records regulations: The Federal rules restrict any use of the information to criminally investigate or prosecute any alcohol or drug abuse patient.[facility] the event this information is protected by the Federal Confidentiality of Alcohol and Drug Abuse Patient Records regulations: The Federal rules restrict any use of the information to criminally investigate or prosecute any alcohol or drug abuse patient.[facility] the event this information is protected by the Federal Confidentiality of Alcohol and Drug Abuse Patient Records regulations: The Federal rules restrict any use of the information to criminally investigate or prosecute any alcohol or drug abuse patient.[facility] the event this information is protected by the Federal Confidentiality of Alcohol and Drug Abuse Patient Records regulations: The Federal rules restrict any use of the information to criminally investigate or prosecute any alcohol or drug abuse patient.[facility]In the event this information is protected by the Federal Confidentiality of Alcohol and Drug Abuse Patient Records regulations: The Federal rules restrict any use of the information to criminally investigate or prosecute any alcohol or drug abuse patient.[facility]In the event this information is protected by the Federal Confidentiality of Alcohol and Drug Abuse Patient Records regulations: The Federal rules restrict any use of the information to criminally investigate or prosecute any alcohol or drug abuse patient.[facility] CampusIn the event this information is protected by the Federal Confidentiality of Alcohol and Drug Abuse Patient Records regulations: The Federal rules restrict any use of the information to criminally investigate or prosecute any alcohol or drug abuse patient.[facility]In the event this information is protected by the Federal Confidentiality of Alcohol and Drug Abuse Patient Records regulations: The Federal rules restrict any use of the information to criminally investigate or prosecute any alcohol or drug abuse patient.[facility] the event this information is protected by the Federal Confidentiality of Alcohol and Drug Abuse Patient Records regulations: The Federal rules restrict any use of the information to criminally investigate or prosecute any alcohol or drug abuse patient.[facility] CampusIn the event this information is protected by the Federal Confidentiality of Alcohol and Drug Abuse Patient Records regulations: The Federal rules restrict any use of the information to criminally investigate or prosecute any alcohol or drug abuse patient.[facility]In the event this information is protected by the Federal Confidentiality of Alcohol and Drug Abuse Patient Records regulations: The Federal rules restrict any use of the information to criminally investigate or prosecute any alcohol or drug abuse patient.[facility] CampusIn the event this information is protected by the Federal Confidentiality of Alcohol and Drug Abuse Patient Records regulations: The Federal rules restrict any use of the information to criminally investigate or prosecute any alcohol or drug abuse patient.[facility] CampusIn the event this information is protected by the Federal Confidentiality of Alcohol and Drug Abuse Patient Records regulations: The Federal rules restrict any use of the information to criminally investigate or prosecute any alcohol or drug abuse patient.[facility] CampusIn the event this information is protected by the Federal Confidentiality of Alcohol and Drug Abuse Patient Records regulations: The Federal rules restrict any use of the information to criminally investigate or prosecute any alcohol or drug abuse patient.[facility] CampusIn the event this information is protected by the Federal Confidentiality of Alcohol and Drug Abuse Patient Records regulations: The Federal rules restrict any use of the information to criminally investigate or prosecute any alcohol or drug abuse patient.[facility] CampusIn the event this information is protected by the Federal Confidentiality of Alcohol and Drug Abuse Patient Records regulations: The Federal rules restrict any use of the information to criminally investigate or prosecute any alcohol or drug abuse patient.[facility]In the event this information is protected by the Federal Confidentiality of Alcohol and Drug Abuse Patient Records regulations: The Federal rules restrict any use of the information to criminally investigate or prosecute any alcohol or drug abuse patient.[facility] CampusIn the event this information is protected by the Federal Confidentiality of Alcohol and Drug Abuse Patient Records regulations: The Federal rules restrict any use of the information to criminally investigate or prosecute any alcohol or drug abuse patient.[facility] the event this information is protected by the Federal Confidentiality of Alcohol and Drug Abuse Patient Records regulations: The Federal rules restrict any use of the information to criminally investigate or prosecute any alcohol or drug abuse patient.[facility] CampusIn the event this information is protected by the Federal Confidentiality of Alcohol and Drug Abuse Patient Records regulations: The Federal rules restrict any use of the information to criminally investigate or prosecute any alcohol or drug abuse patient.[facility]In the event this information is protected by the Federal Confidentiality of Alcohol and Drug Abuse Patient Records regulations: The Federal rules restrict any use of the information to criminally investigate or prosecute any alcohol or drug abuse patient.[facility] CampusIn the event this information is protected by the Federal Confidentiality of Alcohol and Drug Abuse Patient Records regulations: The Federal rules restrict any use of the information to criminally investigate or prosecute any alcohol or drug abuse patient.[facility]In the event this information is protected by the Federal Confidentiality of Alcohol and Drug Abuse Patient Records regulations: The Federal rules restrict any use of the information to criminally investigate or prosecute any alcohol or drug abuse patient.[facility]In the event this information is protected by the Federal Confidentiality of Alcohol and Drug Abuse Patient Records regulations: The Federal rules restrict any use of the information to criminally investigate or prosecute any alcohol or drug abuse patient.[facility]In the event this information is protected by the Federal Confidentiality of Alcohol and Drug Abuse Patient Records regulations: The Federal rules restrict any use of the information to criminally investigate or prosecute any alcohol or drug abuse patient.[facility]In the event this information is protected by the Federal Confidentiality of Alcohol and Drug Abuse Patient Records regulations: The Federal rules restrict any use of the information to criminally investigate or prosecute any alcohol or drug abuse patient.[facility]In the event this information is protected by the Federal Confidentiality of Alcohol and Drug Abuse Patient Records regulations: The Federal rules restrict any use of the information to criminally investigate or prosecute any alcohol or drug abuse patient.[facility]In the event this information is protected by the Federal Confidentiality of Alcohol and Drug Abuse Patient Records regulations: The Federal rules restrict any use of the information to criminally investigate or prosecute any alcohol or drug abuse patient.[facility] CampusIn the event this information is protected by the Federal Confidentiality of Alcohol and Drug Abuse Patient Records regulations: The Federal rules restrict any use of the information to criminally investigate or prosecute any alcohol or drug abuse patient.[facility] CampusIn the event this information is protected by the Federal Confidentiality of Alcohol and Drug Abuse Patient Records regulations: The Federal rules restrict any use of the information to criminally investigate or prosecute any alcohol or drug abuse patient.[facility] CampusIn the event this information is protected by the Federal Confidentiality of Alcohol and Drug Abuse Patient Records regulations: The Federal rules restrict any use of the information to criminally investigate or prosecute any alcohol or drug abuse patient.[facility] CampusIn the event this information is protected by the Federal Confidentiality of Alcohol and Drug Abuse Patient Records regulations: The Federal rules restrict any use of the information to criminally investigate or prosecute any alcohol or drug abuse patient.[facility] CampusIn the event this information is protected by the Federal Confidentiality of Alcohol and Drug Abuse Patient Records regulations: The Federal rules restrict any use of the information to criminally investigate or prosecute any alcohol or drug abuse patient.[facility] CampusIn the event this information is protected by the Federal Confidentiality of Alcohol and Drug Abuse Patient Records regulations: The Federal rules restrict any use of the information to criminally investigate or prosecute any alcohol or drug abuse patient.[facility] CampusIn the event this information is protected by the Federal Confidentiality of Alcohol and Drug Abuse Patient Records regulations: The Federal rules restrict any use of the information to criminally investigate or prosecute any alcohol or drug abuse patient.[facility] CampusIn the event this information is protected by the Federal Confidentiality of Alcohol and Drug Abuse Patient Records regulations: The Federal rules restrict any use of the information to criminally investigate or prosecute any alcohol or drug abuse patient.[facility] CampusIn the event this information is protected by the Federal Confidentiality of Alcohol and Drug Abuse Patient Records regulations: The Federal rules restrict any use of the information to criminally investigate or prosecute any alcohol or drug abuse patient.[facility] CampusIn the event this information is protected by the Federal Confidentiality of Alcohol and Drug Abuse Patient Records regulations: The Federal rules restrict any use of the information to criminally investigate or prosecute any alcohol or drug abuse patient.[facility] CampusIn the event this information is protected by the Federal Confidentiality of Alcohol and Drug Abuse Patient Records regulations: The Federal rules restrict any use of the information to criminally investigate or prosecute any alcohol or drug abuse patient.[facility] CampusIn the event this information is protected by the Federal Confidentiality of Alcohol and Drug Abuse Patient Records regulations: The Federal rules restrict any use of the information to criminally investigate or prosecute any alcohol or drug abuse patient.[facility] CampusIn the event this information is protected by the Federal Confidentiality of Alcohol and Drug Abuse Patient Records regulations: The Federal rules restrict any use of the information to criminally investigate or prosecute any alcohol or drug abuse patient.[facility] CampusIn the event this information is protected by the Federal Confidentiality of Alcohol and Drug Abuse Patient Records regulations: The Federal rules restrict any use of the information to criminally investigate or prosecute any alcohol or drug abuse patient.[facility] CampusIn the event this information is protected by the Federal Confidentiality of Alcohol and Drug Abuse Patient Records regulations: The Federal rules restrict any use of the information to criminally investigate or prosecute any alcohol or drug abuse patient.[facility] CampusIn the event this information is protected by the Federal Confidentiality of Alcohol and Drug Abuse Patient Records regulations: The Federal rules restrict any use of the information to criminally investigate or prosecute any alcohol or drug abuse patient.[facility] CampusIn the event this information is protected by the Federal Confidentiality of Alcohol and Drug Abuse Patient Records regulations: The Federal rules restrict any use of the information to criminally investigate or prosecute any alcohol or drug abuse patient.[facility] CampusIn the event this information is protected by the Federal Confidentiality of Alcohol and Drug Abuse Patient Records regulations: The Federal rules restrict any use of the information to criminally investigate or prosecute any alcohol or drug abuse patient.[facility] CampusIn the event this information is protected by the Federal Confidentiality of Alcohol and Drug Abuse Patient Records regulations: The Federal rules restrict any use of the information to criminally investigate or prosecute any alcohol or drug abuse patient.[facility] CampusIn the event this information is protected by the Federal Confidentiality of Alcohol and Drug Abuse Patient Records regulations: The Federal rules restrict any use of the information to criminally investigate or prosecute any alcohol or drug abuse patient.[facility] CampusIn the event this information is protected by the Federal Confidentiality of Alcohol and Drug Abuse Patient Records regulations: The Federal rules restrict any use of the information to criminally investigate or prosecute any alcohol or drug abuse patient.[facility] CampusIn the event this information is protected by the Federal Confidentiality of Alcohol and Drug Abuse Patient Records regulations: The Federal rules restrict any use of the information to criminally investigate or prosecute any alcohol or drug abuse patient.[facility] CampusIn the event this information is protected by the Federal Confidentiality of Alcohol and Drug Abuse Patient Records regulations: The Federal rules restrict any use of the information to criminally investigate or prosecute any alcohol or drug abuse patient.[facility] CampusIn the event this information is protected by the Federal Confidentiality of Alcohol and Drug Abuse Patient Records regulations: The Federal rules restrict any use of the information to criminally investigate or prosecute any alcohol or drug abuse patient.[facility] CampusIn the event this information is protected by the Federal Confidentiality of Alcohol and Drug Abuse Patient Records regulations: The Federal rules restrict any use of the information to criminally investigate or prosecute any alcohol or drug abuse patient.[facility] CampusIn the event this information is protected by the Federal Confidentiality of Alcohol and Drug Abuse Patient Records regulations: The Federal rules restrict any use of the information to criminally investigate or prosecute any alcohol or drug abuse patient.[facility] CampusIn the event this information is protected by the Federal Confidentiality of Alcohol and Drug Abuse Patient Records regulations: The Federal rules restrict any use of the information to criminally investigate or prosecute any alcohol or drug abuse patient.[facility] CampusIn the event this information is protected by the Federal Confidentiality of Alcohol and Drug Abuse Patient Records regulations: The Federal rules restrict any use of the information to criminally investigate or prosecute any alcohol or drug abuse patient.[facility] CampusIn the event this information is protected by the Federal Confidentiality of Alcohol and Drug Abuse Patient Records regulations: The Federal rules restrict any use of the information to criminally investigate or prosecute any alcohol or drug abuse patient.[facility] CampusIn the event this information is protected by the Federal Confidentiality of Alcohol and Drug Abuse Patient Records regulations: The Federal rules restrict any use of the information to criminally investigate or prosecute any alcohol or drug abuse patient.[facility] CampusIn the event this information is protected by the Federal Confidentiality of Alcohol and Drug Abuse Patient Records regulations: The Federal rules restrict any use of the information to criminally investigate or prosecute any alcohol or drug abuse patient.[facility] CampusIn the event this information is protected by the Federal Confidentiality of Alcohol and Drug Abuse Patient Records regulations: The Federal rules restrict any use of the information to criminally investigate or prosecute any alcohol or drug abuse patient.[facility] CampusIn the event this information is protected by the Federal Confidentiality of Alcohol and Drug Abuse Patient Records regulations: The Federal rules restrict any use of the information to criminally investigate or prosecute any alcohol or drug abuse patient.[facility] CampusIn the event this information is protected by the Federal Confidentiality of Alcohol and Drug Abuse Patient Records regulations: The Federal rules restrict any use of the information to criminally investigate or prosecute any alcohol or drug abuse patient.[facility] CampusIn the event this information is protected by the Federal Confidentiality of Alcohol and Drug Abuse Patient Records regulations: The Federal rules restrict any use of the information to criminally investigate or prosecute any alcohol or drug abuse patient.[facility] CampusIn the event this information is protected by the Federal Confidentiality of Alcohol and Drug Abuse Patient Records regulations: The Federal rules restrict any use of the information to criminally investigate or prosecute any alcohol or drug abuse patient.[facility] CampusIn the event this information is protected by the Federal Confidentiality of Alcohol and Drug Abuse Patient Records regulations: The Federal rules restrict any use of the information to criminally investigate or prosecute any alcohol or drug abuse patient.[facility] CampusIn the event this information is protected by the Federal Confidentiality of Alcohol and Drug Abuse Patient Records regulations: The Federal rules restrict any use of the information to criminally investigate or prosecute any alcohol or drug abuse patient.[facility] CampusIn the event this information is protected by the Federal Confidentiality of Alcohol and Drug Abuse Patient Records regulations: The Federal rules restrict any use of the information to criminally investigate or prosecute any alcohol or drug abuse patient.[facility] CampusIn the event this information is protected by the Federal Confidentiality of Alcohol and Drug Abuse Patient Records regulations: The Federal rules restrict any use of the information to criminally investigate or prosecute any alcohol or drug abuse patient.[facility] the event this information is protected by the Federal Confidentiality of Alcohol and Drug Abuse Patient Records regulations: The Federal rules restrict any use of the information to criminally investigate or prosecute any alcohol or drug abuse patient.[facility] CampusIn the event this information is protected by the Federal Confidentiality of Alcohol and Drug Abuse Patient Records regulations: The Federal rules restrict any use of the information to criminally investigate or prosecute any alcohol or drug abuse patient.[facility] CampusIn the event this information is protected by the Federal Confidentiality of Alcohol and Drug Abuse Patient Records regulations: The Federal rules restrict any use of the information to criminally investigate or prosecute any alcohol or drug abuse patient.[facility] CampusIn the event this information is protected by the Federal Confidentiality of Alcohol and Drug Abuse Patient Records regulations: The Federal rules restrict any use of the information to criminally investigate or prosecute any alcohol or drug abuse patient.[facility] CampusIn the event this information is protected by the Federal Confidentiality of Alcohol and Drug Abuse Patient Records regulations: The Federal rules restrict any use of the information to criminally investigate or prosecute any alcohol or drug abuse patient.[facility] CampusIn the event this information is protected by the Federal Confidentiality of Alcohol and Drug Abuse Patient Records regulations: The Federal rules restrict any use of the information to criminally investigate or prosecute any alcohol or drug abuse patient.[facility] Reason for Visit (unrecogniz ed section and [...] Refill Request 01/21/2023 Reason Onset Date Comments [facility] Navigation Outreach 02/05/2023 [employer] Low [...] Refill Request 07/21/2024 Reason Onset Date Comments [facility] Navigation Outreach 08/21/2024 [employer] High Risk - Attempt 1 Reason Onset Date Comments CDM 09/11/2024 Enrollment outre ach Reason Comments Follow Up 3 month follow up wi th labs Reason Onset Date Comments [facility] Navigation Outreach 09/24/2024 humansarah dhaliwal [...] Care Teams (unrecognized sec tion and content) Supervisor Kennel Relationship Specialty Start Date End Date Deirdre Quiñones MD [address] [place] [address] PCP - General Family Practice 05/19/18 Supervisor Kennel Relationship Specialty Start Date End Date Deirdre Quiñones MD [address] [facility] [place] [address] PCP - General Family Practice 05/19/18 Supervisor Kennel Relationship Specialty Start Date End Date Deirdre Quiñones MD [address] [facility] [place] [address] PCP - General Family Practice 05/19/18 Supervisor Kennel Relationship Specialty Start Date End Date Deirdre Quiñones MD [address] [facility] [place] [address] PCP - General Family Practice 05/19/18 Supervisor Kennel Relationship Specialty Start Date End Date Deirdre Quiñones MD [facility] [place] [address] PCP - General Family Practice 05/19/18 Supervisor Kennel Relationship Specialty Start Date End Date Deirdre Quiñones MD [address] [facility] [place] [address] PCP - General Family Practice 05/19/18 Supervisor Kennel Relationship Specialty Start Date End Date Deirdre Quiñones MD [address] [facility] [place] [address] PCP - General Family Practice 05/19/18 Supervisor Kennel Relationship Specialty Start Date End Date Deirdre Quiñones MD [address] [facility] [place] [address] PCP - General Family Practice 05/19/18 Supervisor Kennel Relationship Specialty Start Date End Date Deirdre Quiñones MD [address] [facility] [place] [address] PCP - General Family Practice 05/19/18 Supervisor Kennel Relationship Specialty Start Date End Date Deirdre Quiñones MD [address] [facility] [place] [address] PCP - General Family Medicine 05/19/18 Supervisor Kennel Relationship Specialty Start Date End Date Deirdre Quiñones MD [address] [facility] [place] [address] PCP - General Family Medicine 05/19/18 Supervisor Kennel Relationship Specialty Start Date End Date Deirdre Quiñones MD [address] [facility] [place] [address] PCP - General Family Medicine 05/19/18 Supervisor Kennel Relationship Specialty Start Date End Date Deirdre Quiñones MD [address] [facility] [place] [address] PCP - General Family Medicine 05/19/18 Supervisor Kennel Relationship Specialty Start Date End Date Deirdre Quiñones MD [address] [facility] [place] [address] PCP - General Family Medicine 05/19/18 Supervisor Kennel Relationship Specialty Start Date End Date Deirdre Quiñones MD [address] [facility] [place] [address] PCP - General Family Medicine 05/19/18 Supervisor Kennel Relationship Specialty Start Date End Date Deirdre Quiñones MD [address] [facility] [place] [address] PCP - General Family Medicine 05/19/18 Supervisor Kennel Relationship Specialty Start Date End Date Deirdre Quiñones MD [address] [facility] [place] [address] PCP - General Family Medicine 05/19/18 Supervisor Kennel Relationship Specialty Start Date End Date Deirdre Quiñones MD [address] [facility] [place] [address] PCP - General Family Medicine 05/19/18 Supervisor Kennel Relationship Specialty Start Date End Date Deirdre Quiñones MD [address] [facility] [place] [address] PCP - General Family Medicine 05/19/18 Supervisor Kennel Relationship Specialty Start Date End Date Deirdre Quiñones MD [address] [place] [address] PCP - General Family Medicine 05/19/18 Supervisor Kennel Relationship Specialty Start Date End Date Deirdre Quiñones MD [address] [facility] [place] [address] PCP - General Family Medicine 05/19/18 Supervisor Kennel Relationship Specialty Start Date End Date Deirdre Quiñones MD [address] [place] [address] PCP - General Family Medicine 05/19/18 Supervisor Kennel Relationship Specialty Start Date End Date Deirdre Quiñones MD [address] [place] [address] PCP - General Family Medicine 05/19/18 Supervisor Kennel Relationship Specialty Start Date End Date Deirdre Quiñones MD [address] [place] [address] PCP - General Family Medicine 05/19/18 Supervisor Kennel Relationship Specialty Start Date End Date Deirdre Quiñones MD [address] [place] [address] PCP - General Family Medicine 05/19/18 Team [...] Thiago Jarvis , DO Emergency Provider Active Supervisor Kennel Relationship Specialty Start Date End Date Deirdre Quiñones MD [address] [place] [address] PCP - General Family Medicine 05/19/18 Team [...] Goldy Lockwood , DO Emergency Provider Active Supervisor Kennel Relationship Specialty Start Date End Date Deirdre Quiñones MD [address] [place] [address] PCP - General Family Medicine 05/19/18 Supervisor Kennel Relationship Specialty Start Date End Date Deirdre Quiñones MD [address] [place] [address] PCP - General Family Medicine 05/19/18 Supervisor Kennel Relationship Specialty Start Date End Date Deirdre Quiñones MD [address] [place] [address] PCP - General Family Medicine 05/19/18 Supervisor Kennel Relationship Specialty Start Date End Date Deirdre Quiñones MD [address] [place] [address] PCP - General Family Medicine 05/19/18 Supervisor Kennel Relationship Specialty Start Date End Date Deirdre Quiñones MD [address] [place] [address] PCP - General Family Medicine 05/19/18 Supervisor Kennel Relationship Specialty Start Date End Date Deirdre Quiñones MD [address] [place] [address] PCP - General Family Medicine 05/19/18 Supervisor Kennel Relationship Specialty Start Date End Date Deirdre Quiñones MD [address] [place] [address] PCP - General Family Medicine 05/19/18 Supervisor Kennel Relationship Specialty Start Date End Date Deirdre Quiñones MD [address] [place] [address] PCP - General Family Medicine 05/19/18 Supervisor Kennel Relationship Specialty Start Date End Date Deirdre Quiñones MD [address] [place] [address] PCP - General Family Medicine 05/19/18 Supervisor Kennel Relationship Specialty Start Date End Date Deirdre Quiñones MD [address] [place] [address] PCP - General Family Medicine 05/19/18 Supervisor Kennel Relationship Specialty Start Date End Date Deirdre Quiñones MD [address] [place] [address] PCP - General Family Medicine 05/19/18 Supervisor Kennel Relationship Specialty Start Date End Date Deirdre Quiñones MD [address] [place] [address] PCP - General Family Medicine 05/19/18 Silvia Vazquez APRN.CNP [address] [place] [address] [facility] 06/14/24 Supervisor Kennel Relationship Specialty Start Date End Date Deirdre Quiñones MD [address] [place] [address] PCP - General Family Medicine 05/19/18 Silvia Vazquez APRN.INTERIOR DESIGN PROFESSIONAL [address] [place] [address] [facility] 06/14/24 Jay Tran APRN.INTERIOR DESIGN PROFESSIONAL [address] [place] [address] [facility] 06/23/24 Supervisor Kennel Relationship Specialty Start Date End Date Deirdre Quiñones MD [address] [place] [address] PCP - General Family Medicine 05/19/18 Silvia Vazquez APRN.INTERIOR DESIGN PROFESSIONAL [address] [place] [address] [facility] 06/14/24 Jay Tran APRN.INTERIOR DESIGN PROFESSIONAL [address] [place] [address] [facility] 06/23/24 Supervisor Kennel Relationship Specialty Start Date End Date Deirdre Quiñones MD [address] [place] [address] PCP - General Family Medicine 05/19/18 Silvia Vazquez APRN.INTERIOR DESIGN PROFESSIONAL [address] [place] [address] [facility] 06/14/24 Jay Tran APRN.INTERIOR DESIGN PROFESSIONAL [address] [facility] [place] [address] [facility]n [employer]ter Family [facility] 06/23/24 Denise Edward, energy audit advisorSenior Manager Asset Protection 09/07/24 Supervisor Kennel Relationship Specialty Start Date End Date Deirdre Quiñones MD [address] [facility] [place] [address] PCP - General Family Medicine 05/19/18 Silvia Vazquez APRN.INTERIOR DESIGN PROFESSIONAL [address] [facility] [place] [address] [facility] 06/14/24 Jay Tran APRN.INTERIOR DESIGN PROFESSIONAL [address] [facility] [place] [address] Kiln Setter [facility] 06/23/24 Denise Edward, energy audit advisorSenior Manager Asset Protection 09/07/24 Supervisor Kennel Relationship Specialty Start Date End Date Deirdre Quiñones MD [address] [facility] [place] [address] PCP - General Family Medicine 05/19/18 Silvia Vazquez REGIONAL RETAIL SALES MANAGER.INTERIOR DESIGN PROFESSIONAL [address] [facility] [place] [address] [facility] 06/14/24 Jay Tran APRN.INTERIOR DESIGN PROFESSIONAL [address] [facility] [place] [address] [facility] 06/23/24 Denise Edward, energy audit advisorSenior Manager Asset Protection 09/07/24 Supervisor Kennel Relationship Specialty Start Date End Date Deirdre Quiñones MD [address] [facility] [place] [address] PCP - General Family Medicine 05/19/18 Silvia Vazquez APRN.INTERIOR DESIGN PROFESSIONAL [address] [place] [address] [facility] 06/14/24 Jay Tran APRN.INTERIOR DESIGN PROFESSIONAL [address] [facility] [place] [address] [facility] 06/23/24 Denise Edward, energy audit advisorSenior Manager Asset Protection 09/07/24 Supervisor Kennel Relationship Specialty Start Date End Date Deirdre Quiñones MD [address] [facility] [place] [address] PCP - General Family Medicine 05/19/18 Silvia Vazquez APRN.INTERIOR DESIGN PROFESSIONAL [address] [facility] [place] [address] [facility] 06/14/24 Jay Tran APRN.INTERIOR DESIGN PROFESSIONAL [address] [facility] [place] [address] Kiln [facility]ter Family [facility] 06/23/24 Denise Edward energy audit advisorSenior Manager Asset Protection 09/07/24 Supervisor Kennel Relationship Specialty Start Date End Date Deirdre Quiñones MD [address] [facility] [place] [address] PCP - General Family Medicine 05/19/18 Silvia Vazquez APRN.INTERIOR DESIGN PROFESSIONAL [address] [facility] [place] [address] [facility] 06/14/24 Jay Tran APRN.INTERIOR DESIGN PROFESSIONAL [address] [facility] [place] [address] [facility] 06/23/24 Denise Edward, energy audit advisorSenior Manager Asset Protection 09/07/24 Supervisor Kennel Relationship Specialty Start Date End Date Deirdre Quiñones MD [address] [facility] [place] [address] PCP - General Family Medicine 05/19/18 Silvia Vazquez APRN.INTERIOR DESIGN PROFESSIONAL [address] [facility] [place] [address] [facility] 06/14/24 Jay Tran APRN.INTERIOR DESIGN PROFESSIONAL [address] [place] [address] Kiln [facility]ter [facility] 06/23/24 Denise Edward energy audit advisorSenior Manager Asset Protection 09/07/24 Supervisor Kennel Relationship Specialty Start Date End Date Deirdre Quiñones MD [address] [place] [address] PCP - General Family Medicine 05/19/18 Silvia Vazquez APRN.INTERIOR DESIGN PROFESSIONAL [address] [facility] [place] [address] [facility] 06/14/24 Jay Tran APRN.INTERIOR DESIGN PROFESSIONAL [address] [facility] [place] [address] [facility] 06/23/24 Denise Edward, energy audit advisorSenior Manager Asset Protection 09/07/24 Supervisor Kennel Relationship Specialty Start Date End Date Deirdre Quiñones MD [address] [facility] [place] [address] PCP - General Family Medicine 05/19/18 Silvia Vazquez APRN.INTERIOR DESIGN PROFESSIONAL [address] [facility] [place] [address] [facility] 06/14/24 Jay Tran APRN.INTERIOR DESIGN PROFESSIONAL [address] [facility] [place] [address] [facility] 06/23/24 Denise Edward, energy audit advisorSenior Manager Asset Protection 09/07/24 Supervisor Kennel Relationship Specialty Start Date End Date Deirdre Quiñones MD [address] [place] [address] PCP - General Family Medicine 05/19/18 Jay Tran APRN.INTERIOR DESIGN PROFESSIONAL [address] [place] [address] [facility] 06/23/24 Denise Edward energy audit advisorSenior Manager Asset Protection 09/07/24 Supervisor Kennel Relationship Specialty Start Date End Date Deirdre Quiñones MD [address] [facility] [place] [address] PCP - General Family Medicine 05/19/18 Jay Tran REGIONAL RETAIL SALES MANAGER.INTERIOR DESIGN PROFESSIONAL [address] [facility] [place] [address] [facility] 06/23/24 Denise Edward energy audit advisorSenior Manager Asset Protection 09/07/24 Supervisor Kennel Relationship Specialty Start Date End Date Deirdre Quiñones MD [address] [facility] [place] [address] PCP - General Family Medicine 05/19/18 Jay Tran REGIONAL RETAIL SALES MANAGER.INTERIOR DESIGN PROFESSIONAL [address] [facility] [place] [address] [facility] 06/23/24 Denise Edward, energy audit advisorSenior Manager Asset Protection 09/07/24 Supervisor Kennel Relationship Specialty Start Date End Date Deirdre Quiñones MD [address] [facility] [place] [address] PCP - General Family Medicine 05/19/18 Jay Tran APRN.INTERIOR DESIGN PROFESSIONAL [address] [place] [address] [facility] 06/23/24 Denise Edward energy audit advisorSenior Manager Asset Protection 09/07/24 Supervisor Kennel Relationship Specialty Start Date End Date Deirdre Quiñones MD [address] [facility] [place] [address] PCP - General Family Medicine 05/19/18 Jay Tran APRN.INTERIOR DESIGN PROFESSIONAL [address] [facility] [place] [address] [facility] 06/23/24 Supervisor Kennel Relationship Specialty Start Date End Date Deirdre Quiñones MD [address] [facility] [place] [address] PCP - General Family Medicine 05/19/18 Jay Tran APRN.INTERIOR DESIGN PROFESSIONAL [address] [facility] [place] [address] [facility] 06/23/24 Goals (unrecognized section and content) Goals [...] BE BASED ON THE PRIMARY CLINICAL RECORDS. [facility]. provides no warranty or guarantee of the accuracy or completeness of information in this document.
[2025-06-18 16:33] LABS: Anion Gap 12 (5-15); BUN 20 mg/dL (4-19); BUN/Creat Ratio 26.4 RATIO (10-20); Calcium,Total 10.2 mg/dL (7.6-11.0); Carbon Dioxide 24.6 mmol/L (21.0-32.0); Chloride 97 mmol/L (98-108); Estimated Creatinine Clearance 53.28 ml/min (50-250); Glucose 167 mg/dL (70-99); Potassium 4.1 mmol/L (3.3-5.1); Troponin T High Sens 2 HR 780 ng/L (<=14)
--- NOTE | 2025-06-18 16:56 | CL.I_ITS ---
Patient Name: Sarah BELLO Study Date: 06/18/2025 Performing: Binu Mcnulty MD Ht: 62 inches 157.48 cm : 1945 Wt: 162.9 lbs 73.8 kg Age: 79 Gender: female BSA: 1.75 PROCEDURE(S) PERFORMED DC02-(30649)C/COR IC16-(56334/[id number])AMI, KOSTAS OR PTCA, ARTERY/GRAFT, SINGLE VESSEL CLINICAL PROFILE AND CO-MORBIDITIES Indications: ACS > 24 hrs, late presentation of STEMI with ongoing chest pain Heart Failure: None CONCLUSIONS Severe multivessel coronary artery disease as described. Successful PCI of the mid RCA with drug-eluting stent. Unsuccessful PTCA of the mid LAD RECOMMENDATIONS Medical therapy for residual coronary artery disease at this time. If patient continues to have chest pain despite maximal medical therapy then CABG could be considered. DESCRIPTION OF PROCEDURE The patient arrived to the procedure lab. The risks and benefits of the procedure as well as a full description of our services here and lack of surgical backup were fully explained to the patient and/or their significant other prior to the catheterization. The Timeout was completed, verifying the correct patient and procedure. The patient's procedural site was prepped and draped in the usual fashion. Local anesthetic was given subcutaneously to right radial region with Lidocaine 2%. Using a modified Seldinger technique, arterial access was obtained via the right radial artery, a 6Fr sheath was inserted.. Left Coronary Artery selective angiography was performed in multiple views using a 5 Fr. JL3.5 catheter. Right Coronary Artery selective angiography was then performed in multiple views using a 5 Fr. JR 4 catheterThe images were reviewed and options discussed. A decision was then made to proceed with an Intervention, IVUS or other adjunct procedure. ar2 Guide catheter was inserted and engaged into the RCA. bmw Guide wire was advanced to the RCA. emerge 2.00 x 15 Balloon catheter was advanced across lesion in the right coronary, proximal. PTCA balloon inflated at 10 atms for 35 secs. Angiogram performed post balloon dilatation. 3.5 x 15 Balloon catheter was advanced across lesion in the right coronary, mid. PTCA balloon inflated at 10 atms for 16 secs. Angiogram performed post balloon dilatation. garret 3.5 x 22 Drug Eluting stent was advanced across the lesion in the right coronary, mid. Angiogram performed post stent deployment. nc emerge 3.5 x 12 Balloon catheter was inserted post stent. Angiogram performed post balloon dilatation. xb3 Guide catheter was inserted and engaged into the LCA. bmw Guide wire was advanced to the LAD. whisper wire Guide wire was advanced to the LAD. emerge 1.5 x 8 Balloon catheter was advanced across lesion in the LAD, mid. The arterial sheath was pulled and a TR Band was applied for hemostasis CORONARY ANGIOGRAPHY DOMINANCE: Right Dominant LEFT MAIN: 30% distal left main stenosis LEFT ANTERIOR DESCENDING ARTERY: At least moderately calcified vessel with chronic total occlusion in the mid LAD. Diagonal 1 is a small branch with mild diffuse disease. Diagonal 2 is a medium to large sized branch with 80% stenosis in the proximal portion. There appears to be collateral filling of the mid and distal LAD. CIRCUMFLEX ARTERY: Mild disease in the AV groove circumflex. OM1 is a small branch with 70% proximal stenosis. OM 2 is a medium size branch with 60 to 70% proximal stenosis. RIGHT CORONARY ARTERY: 99% stenosis in the mid RCA. 80% stenosis in the proximal RPDA. Some branches of the RPL branch of the RCA have severe diffuse disease. INTERVENTION INFORMATION LESION SITE: RCA (Mid) Lesion Complexity: High/C, chronic total occlusion: No, lesion at bifurcation: No, thrombus present: No, lesion length: 20 mm, culprit lesion: Yes, Previously treated lesion: No Pre Stenosis: 99 % Pre intervention HIEN flow: 2 PROCEDURE: Drug Eluting Stent with pre and post dilatation Post Stenosis: 0 % Post intervention HIEN flow: 3 Lesion Devices: Ramirez .014 190cm BMW [place] Straight Medtronic 6 Fr MP2 100cm Guide Catheter Cordis 6 Fr AR2 100cm Guide Catheter Timmy Sci EMERGE MR 3.50x15 BALLOON Timmy Sci EMERGE MR 2.00x15 BALLOON Medtronic 3.5 x 22 GARRET FRONTIER KOSTAS Timmy Sci NC EMERGE MR 3.50x12 BALLOON LESION SITE: LAD (Mid) PROCEDURE: Unsuccessful angioplasty as the wire was not able to cross the lesion. Pre and postprocedure stenosis were 100%. Patient did not have any chest pain at the end of the procedure. Recommend medical treatment for this lesion at this time. Lesion Devices: Ramirez .014 190cm BMW [place] Straight Cordis 6 Fr XB3.0 100cm Guide Catheter Timmy Sci EMERGE PUSH MR 1.50x08 BALLOON COMPLICATIONS No Complications PROCEDURE MEDICATIONS Oxygen: 2 L/min via nasal cannula Brilinta 180 mg PO 06/18/2025 13:22:59 Baby Aspirin (81mg) 1 Tabs PO @ 06/18/2025 13:40:10 Heparin 4000 unit(s) IV 06/18/2025 13:20:16 Heparin given IA 06/18/2025 13:24:16 Verapamil 2.5mg, Ntg 100mcgs, 3000 units of Heparin given IA 06/18/2025 13:24:16 SUMMARY OF HEMODYNAMIC DATA Time AIR REST ECG 13:21:25 AO 90/58 (73) SA 13:30:57 AO 114/61 (84) 13:35:21 Signed By Binu Mcnulty MD On 06/18/2025 16:54:50 Binu Mcnulty MD
--- NOTE | 2025-06-18 17:08 | CRPHASE1 ---
Patient Communication Patient Information PHII Cardiac Rehab Discussed with Patient:: Yes Guide to Cardiac Rehab Given to Patient:: Yes Cardiac Rehab Facility Choice List Given to Patient:: Yes Communication to Cardiac Rehab Choice Program [facility] CR PHII:: Communication Given to CR Contact Lens Polisher:: Mc Mcnulty Phase II Cardiac Rehab:: Yes Sessions:: 36 sessions - 3 days/wk, 12 weeks Cardiac Rehabilitation Info Program Information Cardiac Rehabilitation Program Information: Cardiac Rehab The cardiac rehab team at [facility] consists of highly skilled exercise physiologists, nurses, respiratory therapists and physicians working together with you. Our purpose is to help you have a full recovery and achieve the goals you set for yourself. Over the years many of our patients have returned to activities they assumed they would never do again! We can help restore your confidence and motivation to make lifestyle changes that can have a significant impact on your health and quality of life! We can help answer questions and concerns you may have about exercise, lifestyle, medications, diet, stress and anxiety which are common following a hospitalization. WE monitor ECG and vital signs during exercise and discuss your progress with you and report to your physician(s). Cardiac Rehab is proven to help reduce readmissions, improve functional capacity and lower recurrence of problems with your heart. Our Cardiac Rehab program is Certified by the [place] [employer]monary [employer] (AACVPR) and Accredited by the [place] [employer] through our [facility]. You can contact us at . We invite you to call us with your questions or to get started in our program. If you have other questions or concerns be sure to ask your physician/provider during your follow-up visit. WE look forward to seeing you!
--- NOTE | 2025-06-18 17:09 | CRPH1.INSTRU ---
General Education Discussed with Patient CAD and cardiac anatomy and function:: Patient communicates acknowledgment Explanation of diagnoses and procedures:: Patient communicates acknowledgment Sign/Symptoms of WA:: Patient communicates acknowledgment Antiplatelet therapy: Patient communicates acknowledgment Proper use of NTG-SL: Patient communicates acknowledgment Emergency procedures and activation of EMS: Patient communicates acknowledgment Compliance of all prescribed medications: Patient communicates acknowledgment Smoking Risk Factors Patient Nicotine/Smoking Risk Factors Are:: Never smoked Dyslipidemia Risk Factors Patient Dyslipidemia Risk Factors Are:: Total Cholesterol, Triglycerides, HDL and LDL Recommendations Recommendations Include:: Lipid profile provided, Reviewed NCEP/ATP guidelines and Therapeutic Lifestyle Change dietary guidelines Response Code Dyslipidemia Response Code:: Patient communicates acknowledgment Overweight/Obesity Risk Factors Patient Overweight/Obesity Risk Factors Are:: Overweight = 26-29 Recommendations Recommendations Include:: Weight loss of 5-10%, Reduced calorie diet and Exercise 5-7 times/week Response Code Overweight/Obesity:: Patient communicates acknowledgment Hypertension Recommendations Recommendations Include:: BP <130/80 if diabetic, DASH dietary guidelines, Decrease/maintain normal body weight and Moderation of ETOH Response Code Hypertension:: Patient communicates acknowledgment Diabetes Risk Factors Patient Diabetes Risk Factors Are:: Elevated blood sugars Recommendations Recommendations Include:: Maintain fasting blood sugars 70-110 md/dL, Maintain HgbA1c of 6% or less, Monitor blood sugar as prescribed, Diabetic dietary guidelines and Decrease/maintain body weight Response Code Diabetes:: Patient communicates acknowledgment Metabolic Syndrome Risk Factors Patient Metabolic Syndrome Risk Factors Are [3 of 5]:: Fasting blood sugar > 100 mg/dL, Waist circumference > 35 [female] or 40 [male], High triglyceride >150, Hypertension and Low HDL <40 [male] or < 50 [female] Recommendations Recommendations Include:: Reinforce compliance to risk factor modifications, Patient is diabetic and Encouraged follow-up with Primary Care Physician Response Code Metabolic Syndrome Response Code:: Patient communicates acknowledgment Sedentary Risk Factors Patient Sedentary Risk Factors Are:: Lack of regular exercise Recommendations Recommendations Include:: Aerobic exercise 5-7 times/week for 20-30 minutes continuously, Benefits of regular exercise, Discussed home walking program and Monitored Outpatient Cardiac Rehab Response Code Sedentary Response Code:: Patient communicates acknowledgment Stress Risk Factors Patient Stress Risk Factors Are:: Patient denies stress as a risk factor
[2025-06-18 18:55] LABS: Troponin T High Sens 4 HR 1268 ng/L (<=14)
[2025-06-18] MEDS: TICAGRELOR 90 MG TABLET PO (21:25)
--- OUTSIDE RECORDS SUMMARY | 2025-06-18 22:32 | XMS RPT_ITS | CCD ---
Author Organization [facility]iniSyma Care Team Providers Care Biscuit Maker Name Role Phone Deirdre Quiñones MD Primary [...] Deirdre Quiñones MD Primary Care Provider Tanngenesis ANGLEDOZER OPERATOR.Silvia GALVAN Unavailable Saravanan ANGLEDOZER OPERATOR.Jay GALVAN Unavailable Denise Edward RN Unavailable Unavailabl e Tannhof ANGLEDOZER OPERATOR.Silvia GALVAN Unavailable Unavail able Tannhof ANGLEDOZER OPERATOR.Silvia GALVAN Unavailable SILVIA VAZQUEZ Referring UnavailDEIRDRE Lin Primary Care Unavailable SILVIA VAZQUEZ Attending UnavailDEIRDRE Lin Primary Care Unavailable DEIRDRE QUIÑONES Primary Care Unavailable DEIRDRE QUIÑONES Referring Unavailable SILVIA VAZQUEZ Attending UnavailDEIRDRE Lin Primary Care Unavailable Allergies Allergy Classification Reported Allergen(s) Allergy Type Date of Onset Reaction(s) Facility (20 sources) Acetaminophen / HYDROcodone; Translations: [HYDROCODONE-ACET AMINOPHEN] Drug Allergy 04-20-20 05 GI [facility] (20 sources) Codeine; Translations: [CODEINE] Drug Allergy 06-14-20 05 Intolerance [facility] Work Phone: (20 sources) metFORMIN; Translations: [METFORMIN] Drug Allergy 08-23-19 16 [facility] (20 sources) Palm Oil; Translations: [PALM OIL] Drug Allergy 08-20-19 19 [facility] (15 sources) Penicillins; Translations: [PENICILLINS] Drug Intolerance 04-20-20 05 [facility] (20 sources) quinapril; Translations: [QUINAPRIL HCL] Drug Allergy 08-01-19 07 Other: See [facility] (10 sources) Salicylic Acid; Translations: [SALICYLATES] Drug Allergy 04-20-20 05 [facility] (20 sources) Bees; Translations: [BEES] Propensity to adverse reactions 09-08-19 07 [facility] (20 sources) Doxycycline; Translations: [DOXYCYCLINE] Drug Allergy 11-24-19 22 [facility] Work Phone: (20 sources) Penicillins Drug Intolerance 04-20-20 05 [facility] (20 sources) Salicylate product Drug Intolerance 04-20-20 05 [facility] (2 sources) Aspirin Drug Allergy 02-23-20 23 Other [facility] (2 sources) Penicillins Allergy to substance 02-23-20 [facility] (1 source) Aspirin Drug Allergy 02-23-20 23 [facility] (1 source) Codeine Drug Allergy 02-23-20 23 [facility] (1 source) Penicillins Drug allergy (disorder) 02-23-20 23 [facility] (13 sources) Penicillins Drug Intolerance 04-20-20 05 [facility] Medications Current Medications Medication Drug Class(es) Dates [...] be given per day (FROM ALL SOURCES) [id number] 200 actuat albuterol 0.09 mg/actuat metered dose [...] on above: Take 1 capsule by mo [facility] twice daily for 10 days. clindamycin 300 mg oral capsule (20 sources) Lincosamide Antibacterial Start: 07-23-19 24 take 1 capsule by mouth four times daily clindamycin (CLEOCIN) 300 mg capsule Take 1 capsule by mouth four times daily. 40 capsule 07/23/2023 Active Comment on above: Take 1 capsule by [facility] four times daily. doxycycline hyclate 100 mg oral tablet (2 sources) Tetracycline-class Drug Start: 09-27-19 End: 10-07-19 22 take 1 tablet by mouth twice daily doxycycline (VIBRA-TABS) 100 mg tablet Indications: Tick bite, unspecified site, initial encounter Take 1 tablet by mouth twice daily for 10 days. 20 tablet 0 09/26/2021 10/06/2021 Active Comment on above: Take 1 tablet by [facility] twice daily for 10 days. famotidine 20 mg oral tablet (20 sources) Histamine-2 Receptor Antagonist Start: 08-20-19 19 take 1 tablet by mouth every twenty-four hours as needed famotidine (PEPCID) 20 mg tablet Take 1 tablet by mouth at bedtime as needed. 08/20/2018 Active Comment on above: Take 1 tablet by [facility] at bedtime as needed. FLUoxetine 10 mg oral capsule (20 sources) Serotonin Reuptake Inhibitor Start: 03-21-20 End: 04-24-20 24 take 1 capsule by mouth once FLUoxetine (PROZAC) 10 mg capsule Indications: Anxiety state Take 1 capsule by mouth every afternoon. 90 capsule 3 04/24/2024 Active Comment on above: Take 1 capsule by [facility] once daily. TAKE 1 CAPSULE BY [facility] EVERY DAY fluticasone propionate 0.05 mg/actuat [...] (FLONASE) 50 mcg/actuation nasal spray Use 1 [place] in each nostril once daily as needed. 0 11/16/2021 Discontinued Comment on above: Use 1 [place] in each nostril once daily as needed. [...] Comment on above: Take 1 tablet by [facility] once daily. Inhalational Spacing Device (1 [...] on above: Take 2 tablets by mo [facility] once daily for 5 days. Take [...] Comment on above: Take 1 tablet by [facility] once daily. traMADol hydrochloride 50 [...] on above: TAKE 2 TABLETS BY [facility] EVERY DAY WITH BREAKFAST tiZANidine [...] Test Name Value Interpretation Reference Range Facility [facility] 05-03-2025 [facility] Telephone (FAMPWS) SHEREE CHAVEZ ([id number]) 1945 F Date Time Provider Department 05/03/25 DEIRDRE QUIÑONES [facility] During your visit today, we recorded the [...] 2 COMPREHENSIVE METABOLIC PANEL [SQCMP] Order #: [id number] FUTURE HEMOGLOBIN A1C [ETWFI7C] Order #: [id number] FUTURE LIPID PANEL, FASTING [SQLIPB] Order #: [id number] FUTURE COMPLETE BLOOD COUNT [SQCBC] Order #: [id number] FUTURE ALBUMIN/CREATININE RATIO, URINE [SQUACR] Order #: [id number] FUTURE THYROID STIMULATING HORMONE [SQTSH] Order #: [id number] FUTURE Prescriptions as of 05/04/2025 - OZEMPIC [...] lo*05/11/2021 Intracrania (more content not included)... Normal [facility] CNPNon 12-01-2024 CNPN Telephone (INTMWS) SHEREE CHAVEZ ([id number]) 1945 F Date Time Provider Department 12/01/24 DEIRDRE QUIÑONES INTMWS During your visit today, we recorded the following information about you: Lalita Mario LPN 12/01/2024 10:30 AM Signed Electronic PA rec'd and completed for ozempic ANNY. This was completed and approved. Prior authorization approved Payer: [employer] Part D [phone] Note from payer: Request Reference Number: [id number]. OZEMPIC INJ 2MG/3ML is approved through 07/07/2025. Your patient may now fill this prescription and it will be covered. Approval Details Authorization number: [id number] Authorized from December 01, 2024 to July 07, 2025 Electronic appeal: Not supported View History Notes Time User Attachment Attachment received from payer. 12/01/2024 8:31 AM [facility] In Document Medication Being Authorized OZEMPIC [...] destination. To be filled at: e- [facility]/pharmacy [id number] [place] [address] - [address] [phone] Pt notified via my chart. Allergies As [...] Hypothyroidism [ (more content not included)... Normal [facility] 10-14-2024 MANDYN Telephone (PHARMN) SHEREE CHAVEZ ([id number]) 1945 F Date Time Provider Department 10/14/24 [...] to contact the patient. Patient was sent [employer] message. If the patient returns a call, [...] Encounter Status:Closed by NUHA JOHNSTON on 11/11/24 [facility] CNOVon 09-23-2024 CNOV Office Visit (FAMPWS ) SHEREE CHAVEZ ([id number]) 1945 F Date Time Provider Department 09/23/24 9:20 AM SILVIA VAZQUEZ During your visit today, we recorded the following information about you: Pulse Respiration Blood pressure Weight 85/minute 16/minute 110/70 76.4 kg Silvia Vazquez APRN.SPRING REPAIRER HELPER HAND 09/23/2024 10:14 AM Signed This is a [...] Mother Osteoporosis (more content not included)... Normal [facility] Comprehensive metabolic 2000 panelon 09-21-2024 Albumin [Mass/Vol] 4.0 g/dL Normal 3.9-4.9 [facility] Comment on above: Order Comment: Speci men Type: BLOOD SPECIMENOrdering Facility: [facility] Address: [facility] [place] [address] Performed By: #### 2 4323-8 ####[facility] LABCLIA [id number] [place] [address] [place] ALP [Catalytic activity/Vol] 27 U/L Low 34-123 [facility] Comment on above: Order Comment: Speci men Type: BLOOD SPECIMENOrdering Facility: [facility] Address: [address] [place] [address] Performed By: #### 2 4323-8 ####[facility] LABCLIA [id number] [place] [id number] [place] ALT [Catalytic activity/Vol] 21 U/L Normal 7-38 [facility] Comment on above: Order Comment: Speci men Type: BLOOD SPECIMENOrdering Facility: [facility] Address: [address] [place] [address] Performed By: #### 2 4323-8 ####[facility] LABCLIA [id number] [address] [address] [place] Anion gap [Moles/Vol] 11 mmol/L Normal 8-15 [facility] Comment on above: Order Comment: Speci men Type: BLOOD SPECIMENOrdering Facility: [facility] Address: [address] [place] [address] Performed By: #### 2 4323-8 ####[facility] LABCLIA [id number] [address] [address] [place] AST [Catalytic activity/Vol] 22 U/L Normal 13-35 [facility] Comment on above: Order Comment: Speci men Type: BLOOD SPECIMENOrdering Facility: [facility] Address: [address] [place] [address] Performed By: #### 2 4323-8 ####[facility] LABCLIA [id number] [facility] [place] [id number] [place] Bilirubin [Mass/Vol] 0.4 mg/dL Normal 0.2-1.3 [facility] Comment on above: Order Comment: Speci men Type: BLOOD SPECIMENOrdering Facility: [facility] Address: [address] [place] [address] Performed By: #### 2 4323-8 ####[facility] LABCLIA [id number] [facility] [place] [address] [place] Calcium [Mass/Vol] 10.1 mg/dL Normal 8.5-10.2 [facility] Comment on above: Order Comment: Speci men Type: BLOOD SPECIMENOrdering Facility: [facility] Address: [address] [place] [address] Performed By: #### 2 4323-8 ####[facility] LABCLIA [id number] [place] [id number] [place] Chloride [Moles/Vol] 99 mmol/L Normal 98-107 [facility] Comment on above: Order Comment: Speci men Type: BLOOD SPECIMENOrdering Facility: [facility] Address: [address] [place] [address] Performed By: #### 2 4323-8 ####[facility] LABCLIA [id number] [facility] [place] [id number] [place] CO2 [Moles/Vol] 24 mmol/L Normal 22-30 [facility] Comment on above: Order Comment: Speci men Type: BLOOD SPECIMENOrdering Facility: [facility] Address: [address] [place], [place] [address] Performed By: #### 2 4323-8 ####[facility] LABIA [id number] [place] [id number] [place] [facility] Creatinine [Mass/Vol] 0.73 mg/dL Normal 0.58-0.96 [facility] Comment on above: Order Comment: Speci men Type: BLOOD SPECIMENOrdering Facility: [facility] Address: [address] [place] [address] Performed By: #### 2 4323-8 ####[facility] LABIA [id number] [place] [address] [place] Creatinine and Glomerular filtration rate.predicted panel (S/P/Bld) 83 mL/min/1.73m??? Normal >=60 [facility] Comment on above: Order Comment: Speci men Type: BLOOD SPECIMENOrdering Facility: [facility] Address: [address] [place] [address] Result Comment: Martha mated Glomerular Filtration Rate [...] actual GFR. Performed By: #### 2 4323-8 ####[facility] LABIA [id number] [place] [id number] [place] Glucose [Mass/Vol] 227 mg/dL High 74-99 [facility] Comment on above: Order Comment: Speci men Type: BLOOD SPECIMENOrdering Facility: [facility] Address: [address] [place] [address] Result Comment: The [place] Diabetes Association (ADA) provides guidance for cutoff [...] Standards of Medical Care in Diabetes 2016, Canadian Diabetes Association. Diabetes Care. 2016.39(Suppl 1). Performed By: #### 2 4323-8 ####[facility] LABCLIA [id number] [place] [address] [place] Potassium [Moles/Vol] 4.9 mmol/L Normal 3.7-5.1 [facility] Comment on above: Order Comment: Speci men Type: BLOOD SPECIMENOrdering Facility: [facility] Address: [address] [place] [address] Performed By: #### 2 4323-8 ####[facility] LABCLIA [id number] [place] [address] [place] Protein [Mass/Vol] 7.0 g/dL Normal 6.3-8.0 [facility] Comment on above: Order Comment: Speci men Type: BLOOD SPECIMENOrdering Facility: [facility] Address: [address] [place] [address] Performed By: #### 2 4323-8 ####[facility] LABCLIA [id number] [place] [id number] [place] Sodium [Moles/Vol] 134 mmol/L Low 136-144 [facility] Comment on above: Order Comment: Speci men Type: BLOOD SPECIMENOrdering Facility: [facility] Address: [address] [place] [address] Performed By: #### 2 4323-8 ####[facility] LABCLIA [id number] [facility] [place] [id number] [place] Urea nitrogen [Mass/Vol] 15 mg/dL Normal 7-21 [facility] Comment on above: Order Comment: Speci men Type: BLOOD SPECIMENOrdering Facility: [facility] Address: [address] [place] [address] Performed By: #### 2 4323-8 ####[facility] [id number] [place] [id number] [facility] [place] HbA1c (Bld)on 09-21-2024 Average glucose Estimated from glycated hemoglobin (Bld) [Mass/Vol] 223 mg/dL Normal [facility] Comment on above: Order Comment: José Miguel stanley Type: BLOOD SPECIMENOrdering Facility: [facility] Address: [address] [place] [address] Result Comment: eAG: (Estimated average glucose) is a calculated value from HgbA1c and is fundraising sale representative of the average blood glucose level in the last 2-3 month period. Performed By: #### 5 5454-3 ####[facility] [id number] [place] HbA1c (Bld) [Mass fraction] 9.4 % High 4.3-5.6 [facility] Comment on above: Order Comment: José Miguel stanley Type: BLOOD SPECIMENOrdering Facility: [facility] Address: [address] [place] [address] Result Comment: Dimitrios ican Diabetes Association guidelines indicate that patients with HgbA1c in the range 5.7-6.4% are at increased risk for development of diabetes, and intervention by lifestyle modification may be beneficial. HgbA1c greater or equal to 6.5% is considered diagnostic of diabetes. Performed By: #### 5 5454-3 ####[facility] [id number] [place] [id number] [facility] CNOVon 06-17-2024 CNOV Office Visit (FAMPWS ) SHEREE CHAVEZ ([id number]) 1945 F Date Time Provider Department 06/17/24 10:00 AM SILVIA VAZQUEZ During your visit today, we recorded the following information about you: Pulse Respiration Blood pressure Weight 87/minute 16/minute 100/70 78.6 kg Height 1.553 m Silvia Vazquez APRN.SPRING REPAIRER HELPER HAND 06/17/2024 3:10 PM Signed Sheree Chavez is [...] Vicodin [Hydr (more content not included)... Normal [facility] CBC W Auto Differential pane l (Bld)on 06-16-2024 Basophils (Bld) [#/Vol] 0.14 10*3/uL High <0.11 [facility] Comment on above: Order Comment: Speci men Type: BLOOD SPECIMENOrdering Facility: [facility] Address: [address] [place] [address] Performed By: #### 5 7021-8 ####[facility] LABIA [id number] [place] [address] [place] Basophils/100 WBC (Bld) 1.6 % Normal [facility] Comment on above: Order Comment: Speci men Type: BLOOD SPECIMENOrdering Facility: [facility] Address: [address] [place] [address] Performed By: #### 5 7021-8 ####[facility] LABIA [id number] [place] [address] [place] Differential cell count method Nom (Bld) Auto Normal [facility] Comment on above: Order Comment: Speci men Type: BLOOD SPECIMENOrdering Facility: [facility] Address: [address] [place] [address] Performed By: #### 5 7021-8 ####[facility] LABIA [id number] [place] [address] [place] Eosinophils (Bld) [#/Vol] 0.43 10*3/uL Normal <0.46 [facility] Comment on above: Order Comment: Speci men Type: BLOOD SPECIMENOrdering Facility: [facility] Address: [address] [place] [address] Performed By: #### 5 7021-8 ####[facility] LABCLIA [id number] [place] [address] [place] Eosinophils/100 WBC (Bld) 4.8 % Normal [facility] Comment on above: Order Comment: Speci men Type: BLOOD SPECIMENOrdering Facility: [facility] Address: [address] [place] [address] Performed By: #### 5 7021-8 ####[facility] LABCLIA [id number] [place] [address] [place] Erythrocyte distribution width (RBC) [Ratio] 11.7 % Normal 11.5-15.0 [facility] Comment on above: Order Comment: Speci men Type: BLOOD SPECIMENOrdering Facility: [facility] Address: [address] [place] [address] Performed By: #### 5 7021-8 ####[facility] LABIA [id number] [place] [address] [place] Hematocrit (Bld) [Volume fraction] 43.2 % Normal 36.0-46.0 [facility] Comment on above: Order Comment: Speci men Type: BLOOD SPECIMENOrdering Facility: [facility] Address: [address] [place] [address] Performed By: #### 5 7021-8 ####[facility] LABCLIA [id number] [place] [address] [place] Hemoglobin (Bld) [Mass/Vol] 13.8 g/dL Normal 11.5-15.5 [facility] Comment on above: Order Comment: Speci men Type: BLOOD SPECIMENOrdering Facility: [facility] Address: [address] [place] [address] Performed By: #### 5 7021-8 ####[facility] LABCLIA [id number] [place] [address] [place] Immature granulocytes (Bld) [#/Vol] 0.03 10*3/uL Normal <0.10 [facility] Comment on above: Order Comment: Speci men Type: BLOOD SPECIMENOrdering Facility: [facility] Address: [address] [place] [address] Performed By: #### 5 7021-8 ####[facility] LABCLIA [id number] [place] [address] [place] Immature granulocytes/100 WBC (Bld) 0.3 % Normal [facility] Comment on above: Order Comment: Speci men Type: BLOOD SPECIMENOrdering Facility: [facility] Address: [address] [place] [address] Performed By: #### 5 7021-8 ####[facility] LABCLIA [id number] [place] [address] [place] Lymphocytes (Bld) [#/Vol] 3.83 10*3/uL Normal 1.00-4.00 [facility] Comment on above: Order Comment: Speci men Type: BLOOD SPECIMENOrdering Facility: [facility] Address: [address] [place] [address] Performed By: #### 5 7021-8 ####[facility] LABCLIA [id number] [place] [address] [place] Lymphocytes/100 WBC (Bld) 43.0 % Normal [facility] Comment on above: Order Comment: Speci men Type: BLOOD SPECIMENOrdering Facility: [facility] Address: [address] [place] [address] Performed By: #### 5 7021-8 ####[facility] LABCLIA [id number] [place] [address] [place] MCH (RBC) [Entitic mass] 30.8 pg Normal 26.0-34.0 [facility] Comment on above: Order Comment: Speci men Type: BLOOD SPECIMENOrdering Facility: [facility] Address: [address] [place] [address] Performed By: #### 5 7021-8 ####[facility] LABCLIA [id number] [place] [address] [place] MCHC (RBC) [Mass/Vol] 31.9 g/dL Normal 30.5-36.0 [facility] Comment on above: Order Comment: Speci men Type: BLOOD SPECIMENOrdering Facility: [facility] Address: [address] [place] [address] Performed By: #### 5 7021-8 ####[facility] LABCLIA [id number] [place] [address] [place] MCV (RBC) [Entitic vol] 96.4 fL Normal 80.0-100.0 [facility] Comment on above: Order Comment: Speci men Type: BLOOD SPECIMENOrdering Facility: [facility] Address: [address] [place] [address] Performed By: #### 5 7021-8 ####[facility] LABIA [id number] [place] [address] [place] Monocytes (Bld) [#/Vol] 0.73 10*3/uL Normal <0.87 [facility] Comment on above: Order Comment: Speci men Type: BLOOD SPECIMENOrdering Facility: [facility] Address: [address] [place] [address] Performed By: #### 5 7021-8 ####[facility] LABCLIA [id number] [place] [address] [place] Monocytes/100 WBC (Bld) 8.2 % Normal [facility] Comment on above: Order Comment: Speci men Type: BLOOD SPECIMENOrdering Facility: [facility] Address: [address] [place] [address] Performed By: #### 5 7021-8 ####[facility] LABIA [id number] [place] [address] [place] Neutrophils (Bld) [#/Vol] 3.75 10*3/uL Normal 1.45-7.50 [facility] Comment on above: Order Comment: Speci men Type: BLOOD SPECIMENOrdering Facility: [facility] Address: [address] [place] [address] Performed By: #### 5 7021-8 ####[facility] LABCLIA [id number] [place] [address] [place] Neutrophils/100 WBC (Bld) 42.1 % Normal [facility] Comment on above: Order Comment: Speci men Type: BLOOD SPECIMENOrdering Facility: [facility] Address: [address] [place] [address] Performed By: #### 5 7021-8 ####[facility] LABCLIA [id number] [place] [address] [place] Nucleated RBC (Bld) [#/Vol] 10*3/uL Normal <0.01 [facility] Comment on above: Order Comment: Speci men Type: BLOOD SPECIMENOrdering Facility: [facility] Address: [address] [place] [address] Performed By: #### 5 7021-8 ####[facility] LABCLIA [id number] [place] [address] [place] Nucleated RBC/100 WBC (Bld) [Ratio] 0.0 /100 WBC Normal [facility] Comment on above: Order Comment: Speci men Type: BLOOD SPECIMENOrdering Facility: [facility] Address: [address] [place] [address] Performed By: #### 5 7021-8 ####[facility] LABCLIA [id number] [place] [address] [place] Platelet mean volume (Bld) [Entitic vol] 9.4 fL Normal 9.0-12.7 [facility] Comment on above: Order Comment: Speci men Type: BLOOD SPECIMENOrdering Facility: [facility] Address: [address] [place] [address] Performed By: #### 5 7021-8 ####[facility] LABCLIA [id number] [address] [address] [place] Platelets (Bld) [#/Vol] 284 10*3/uL Normal 150-400 [facility] Comment on above: Order Comment: Speci men Type: BLOOD SPECIMENOrdering Facility: [facility] Address: [address] [place] [address] Performed By: #### 5 7021-8 ####[facility] LABCLIA [id number] [place] [address] [place] RBC (Bld) [#/Vol] 4.48 10*6/uL Normal 3.90-5.20 [facility] Comment on above: Order Comment: Speci men Type: BLOOD SPECIMENOrdering Facility: [facility] Address: [address] [place] [address] Performed By: #### 5 7021-8 ####[facility] LABIA [id number] [place] [address] [place] WBC (Bld) [#/Vol] 8.91 10*3/uL Normal 3.70-11.00 [facility] Comment on above: Order Comment: Speci men Type: BLOOD SPECIMENOrdering Facility: [facility] Address: [address] [place] [address] Performed By: #### 5 7021-8 ####[facility] LABIA [id number] [place] [id number] [place] Comprehensive metabolic 2000 panelon 06-16-2024 Albumin [Mass/Vol] 4.2 g/dL Normal 3.9-4.9 [facility] Comment on above: Order Comment: Speci men Type: BLOOD SPECIMENOrdering Facility: [facility] Address: [address] [place] [address] Performed By: #### 2 4331-1, 79268-2, TSHRF ####[facility] LABCLIA [id number] [place] [id number] [place] ALP [Catalytic activity/Vol] 30 U/L Low 34-123 [facility] Comment on above: Order Comment: Speci men Type: BLOOD SPECIMENOrdering Facility: [facility] Address: [address] [place] [address] Performed By: #### 2 4331-1, 80025-9, TSHRF ####[facility] LABCLIA [id number] [place] [address] [place] ALT [Catalytic activity/Vol] 17 U/L Normal 7-38 [facility] Comment on above: Order Comment: Speci men Type: BLOOD SPECIMENOrdering Facility: [facility] Address: [address] [place] [address] Performed By: #### 2 4331-1, , TSHRF ####[facility] LABIA [id number] [place] [address] [place] Anion gap [Moles/Vol] 12 mmol/L Normal 8-15 [facility] Comment on above: Order Comment: Speci men Type: BLOOD SPECIMENOrdering Facility: [facility] Address: [address] [place] [address] Performed By: #### 2 4331-1, , TSHRF ####[facility] LABIA [id number] [place] [address] [place] AST [Catalytic activity/Vol] 17 U/L Normal 13-35 [facility] Comment on above: Order Comment: Speci men Type: BLOOD SPECIMENOrdering Facility: [facility] Address: [address] [place] [address] Performed By: #### 2 4331-1, 83963-3, TSHRF ####[facility] LABIA [id number] [place] [address] [place] Bilirubin [Mass/Vol] 0.3 mg/dL Normal 0.2-1.3 [facility] Comment on above: Order Comment: Speci men Type: BLOOD SPECIMENOrdering Facility: [facility] Address: [address] [place] [address] Performed By: #### 2 4331-1, , TSHRF ####[facility] LABCLIA [id number] [place] [address] [place] Calcium [Mass/Vol] 10.0 mg/dL Normal 8.5-10.2 [facility] Comment on above: Order Comment: Speci men Type: BLOOD SPECIMENOrdering Facility: [facility] Address: [address] [place] [address] Performed By: #### 2 4331-1, , TSHRF ####[facility] LABCLIA [id number] [place] [address] [place] Chloride [Moles/Vol] 99 mmol/L Normal 98-107 [facility] Comment on above: Order Comment: Speci men Type: BLOOD SPECIMENOrdering Facility: [facility] Address: [address] [place] [address] Performed By: #### 2 4331-1, , TSHRF ####[facility] LABCLIA [id number] [place] [address] [place] CO2 [Moles/Vol] 26 mmol/L Normal 22-30 [facility] Comment on above: Order Comment: Speci men Type: BLOOD SPECIMENOrdering Facility: [facility] Address: [address] [place] [address] Performed By: #### 2 4331-1, , TSHRF ####[facility] LABCLIA [id number] [place] [id number] [place] Creatinine [Mass/Vol] 1.02 mg/dL High 0.58-0.96 [facility] Comment on above: Order Comment: Speci men Type: BLOOD SPECIMENOrdering Facility: [facility] Address: [address] [place] [address] Performed By: #### 2 4331-1, 03742-7, [facility] ####[facility] LABIA [id number] [place] [address] [place] Creatinine and Glomerular filtration rate.predicted panel (S/P/Bld) 56 mL/min/1.73m??? Low >=60 [facility] Comment on above: Order Comment: José Miguel stanley Type: BLOOD SPECIMENOrdering Facility: [facility] Address: [address] [place] [address] Result Comment: Martha mated Glomerular Filtration Rate [...] actual GFR. Performed By: #### 2 4331-1, 58647-4, [facility] ####[facility] LABIA [id number] [place] [id number] [place] Glucose [Mass/Vol] 253 mg/dL High 74-99 [facility] Comment on above: Order Comment: José Miguel stanley Type: BLOOD SPECIMENOrdering Facility: [facility] Address: [address] [place] [address] Result Comment: The Canadian Diabetes Association (ADA) provides guidance for cutoff [...] Standards of Medical Care in Diabetes 2016, Canadian Diabetes Association. Diabetes Care. 2016.39(Suppl 1). Performed By: #### 2 4331-1, 27031-1, TSHRF ####[facility] LABCLIA [id number] [place] [address] [place] Potassium [Moles/Vol] 4.6 mmol/L Normal 3.7-5.1 [facility] Comment on above: Order Comment: Speci men Type: BLOOD SPECIMENOrdering Facility: [facility] Address: [address] [place] [address] Performed By: #### 2 4331-1, , TSHRF ####[facility] LABIA [id number] [place] [address] [place] Protein [Mass/Vol] 7.3 g/dL Normal 6.3-8.0 [facility] Comment on above: Order Comment: Speci men Type: BLOOD SPECIMENOrdering Facility: [facility] Address: [address] [place] [address] Performed By: #### 2 4331-1, , TSHRF ####[facility] LABIA [id number] [place] [address] [place] Sodium [Moles/Vol] 137 mmol/L Normal 136-144 [facility] Comment on above: Order Comment: Speci men Type: BLOOD SPECIMENOrdering Facility: [facility] Address: [address] [place] [address] Performed By: #### 2 4331-1, , TSHRF ####[facility] LABIA [id number] [place] [id number] [place] Urea nitrogen [Mass/Vol] 19 mg/dL Normal 7-21 [facility] Comment on above: Order Comment: Speci men Type: BLOOD SPECIMENOrdering Facility: [facility] Address: [address] [place] [id number] Performed By: #### 2 4331-1, 38696-1, TSHRF ####[facility] LABCLIA [id number] [address] [place] HbA1c (Bld)on 06-16-2024 Average glucose Estimated from glycated hemoglobin (Bld) [Mass/Vol] 280 mg/dL Normal [facility] Comment on above: Order Comment: José Miguel stanley Type: BLOOD SPECIMENOrdering Facility: [facility] Address: [address] [place] [address] Result Comment: eAG: (Estimated average glucose) is a calculated value from HgbA1c and is fundraising sale representative of the average blood glucose level in the last 2-3 month period. Performed By: #### 5 5454-3 ####[facility] LABIA [id number] [address] STATES OF [facility] HbA1c (Bld) [Mass fraction] 11.4 % High 4.3-5.6 [facility] Comment on above: Order Comment: José Miguel stanley Type: BLOOD SPECIMENOrdering Facility: [facility] Address: [address] [place] [address] Result Comment: Amer [place] Diabetes Association guidelines indicate that patients with HgbA1c in the range 5.7-6.4% are at increased risk for development of diabetes, and intervention by lifestyle modification may be beneficial. HgbA1c greater or equal to 6.5% is considered diagnostic of diabetes. Performed By: #### 5 5454-3 ####[facility] LABIA [id number] [place] [address] [place] Lipid 1996 panelon 4 Cholesterol [Mass/Vol] 238 mg/dL High <200 [facility] Comment on above: Order Comment: José Miguel stanley Type: BLOOD SPECIMENOrdering Facility: [facility] Address: [address] [place] [address] Result Comment: <200 mg/dL, Desirable 200-239 mg/dL, Borderline high >239 mg/dL, High Performed By: #### 2 4331-1, 57733-5, TSHRF ####[facility] LABCLIA [id number] [address] [place] Cholesterol in HDL [Mass/Vol] 39 mg/dL Low >39 [facility] Comment on above: Order Comment: Josii men Type: BLOOD SPECIMENOrdering Facility: [facility] Address: [address] [place] [address] Result Comment: 40-5 9 mg/dL, Acceptable >59 mg/dL, High: Negative risk factor for coronary heart disease <40 mg/dL, Low: Positive risk factor for coronary heart disease Performed By: #### 2 4331-1, 95820-7, TSHRF ####[facility] LABCLIA [id number] [address] STATES OF [facility] Cholesterol in LDL [Mass/Vol] 134 mg/dL High <100 [facility] Comment on above: Order Comment: José Miguel [facility] Type: BLOOD SPECIMENOrdering Facility: [facility] Address: [address] [place] [address] Result Comment: <100 mg/dL, Optimal 100-129 mg/dL, Near optimal/above optimal 130-159 mg/dL, Borderline high 160-189 mg/dL, High >189 mg/dL, Very high Secondary prevention optimal LDL Cholesterol levels are recommended to be < 70 mg/dL Performed By: #### 2 4331-1, 89483-5, TSHRF ####[facility] LABCLIA [id number] [address] OF [facility] Cholesterol in LDL/Cholesterol in HDL [Mass ratio] 3.44 {ratio} High <2.54 [facility] Comment on above: Order Comment: [facility] Type: BLOOD SPECIMENOrdering Facility: [facility] Address: [address] [place] [address] Result Comment: Kosta amezquita: 1. National Cholesterol Education Program ATP III Guideline At-A-Glance Quick Desk Reference: National Heart, Lung, and Blood [place]. National Institutes of Health. 2001: NIH Publication No. 01-3305. 2. An International Atherosclerosis Society position paper: global recommendations for the management of dyslipidemia: executive summary, Atherosclerosis. 2014: 232(2):410-413. Performed By: #### 2 4331-1, 27392-5, TSHRF ####[facility] LABCLIA [id number] [place] [address] [place] Cholesterol in VLDL [Mass/Vol] 65 mg/dL High <30 [facility] Comment on above: Order Comment: Speci men Type: BLOOD SPECIMENOrdering Facility: [facility] Address: [address] [place] [address] Performed By: #### 2 4331-1, , TSHRF ####[facility] LABCLIA [id number] [place] [address] [place] Cholesterol non HDL [Mass/Vol] 199 mg/dL High <130 [facility] Comment on above: Order Comment: Josii men Type: BLOOD SPECIMENOrdering Facility: [facility] Address: [address] [place] [address] Result Comment: <130 mg/dL, Optimal 130-159 mg/dL, Near optimal/above optimal 160-189 mg/dL, Borderline high 190-219 mg/dL, High >219 mg/dL, Very high Secondary prevention optimal non HDL Cholesterol levels are recommended to be <100 mg/dL Performed By: #### 2 433-1, , TSHRF ####[facility] LABCLIA [id number] [place] [address] [place] Cholesterol.total/Ch olesterol in HDL [Mass ratio] 6.10 {ratio} High <5.10 [facility] Comment on above: Order Comment: Speci men Type: BLOOD SPECIMENOrdering Facility: [facility] Address: [address] [place] [address] Performed By: #### 2 4331-1, , TSHRF ####[facility] LABCLIA [id number] [place] [id number] [place] FASTING TIME 12 hrs Normal [facility] Comment on above: Order Comment: Speci men Type: BLOOD SPECIMENOrdering Facility: [facility] Address: [address] [place] [address] Performed By: #### 2 4331-1, 00932-4, TSHRF ####[facility] LABCLIA [id number] [place] [address] [place] Triglyceride [Mass/Vol] 323 mg/dL High <150 [facility] Comment on above: Order Comment: Speci men Type: BLOOD SPECIMENOrdering Facility: [facility] Address: [address] [place] [address] Result Comment: <150 mg/dL, Normal 150-199 mg/dL, Borderline high 200-499 mg/dL, High >499 mg/dL, Very high Performed By: #### 2 4331-1, 81021-8, TSHRF ####[facility] LABCLIA [id number] [place] [address] [place] TSH W/REFLEX FT4on 4 TSH Qn 4.010 m[IU]/L Normal 0.270-4.200 [facility] Comment on above: Order Comment: Speci men Type: BLOOD SPECIMENOrdering Facility: [facility] Address: [address] [place] [address] Performed By: #### 2 4331-1, 03010-5, TSHRF ####[facility] LABCLIA [id number] [place] [address] [place] XR RIBS/CHEST 3V AP RIB/OBLS /CXR LEFTon 04-22-2023 [facility] XR Ribs - left Views and Annmarie st PAon 04-22-2023 IMPRESSION: Acute nondisplaced fracture of the left anterolateral seventh rib. Electrical Lineworker: YUMI Transcribe Date/Time: Apr 22 2023 12:33P Dictated by : KAMILLA WHEELER MD This examination was interpreted and the report reviewed and electronically signed by: KAMILLA WHEELER MD on Apr 22 2023 12:40PM [facility] DIVISION OF RADIOLOGY * * [...] seventh rib. DIVISION OF RADIOLOGY Provider, Christopher [facility] - 04/22/2023 * * *Final Report* * [...] fracture of the left anterolateral seventh rib. Electrical Lineworker: PSCB Transcribe Date/Time: Apr 22 2023 12:33P Dictated by : KAMILLA WHEELER MD This examination was interpreted and the report reviewed and electronically signed by: KAMILLA WHEELER MD on Apr 22 2023 12:40PM EST [facility] Radiology Study observation (narrative) [facility] XR Ribs - left Views and Annmarie st PAOrdered By: Ccf Provider on 04-22-2023 [facility] Emergency Department Summary on 02-23-2023 Emergency Department Summary [facility] Medical Records Department [address] [place] [address] Emergency Department Summary 02/22/23 MR#: [id number] Acct: [id number] Name: Sarah CHAVEZ Rep #: [id number] : 1945 77 From: Thiago Jarvis DO [...] Negative for Parasthesia or Loss of Funtion [facility] Medical History Diabetes History of trigger [...] of the (more content not included)... Normal [facility] HIP, UNI W/ Pelvis 2-3 Views on 02-23-2023 HIP, UNI W/ Pelvis 2-3 Views [facility] Services [address] [address] HIP, UNI W/ Pelvis 2-3 Views MR#: [id number] Acct: [id number] Name: Sarah CHAVEZ Rep #: [id number] : 1945 F 77 From: Osbaldo Moreno DO PCP: Dr. Deirdre Quiñones MD Status: [facility] ER Study: HIP, UNI W/ Pelvis 2-3 Views Date of Exam: Exam# [id number] Ordering Dr: Thiago Jarvis DO INDICATION: Injury/Pain [...] Thiago Jarvis DO; Dr. Deirdre Quiñones MD Electrical Lineworker: Signed Normal [facility] Emergency Department Summary on 11-22-2022 Emergency Department Summary [facility] Medical Records Department [address] [place] [address] Emergency Department Summary 11/22/22 MR#: [id number] Acct: [id number] Name: Sarah CHAVEZ Rep #: [id number] : 1945 77 From: Say Martínez MD [...] down the right leg to her foot. [facility] Medical History Diabetes History of trigger [...] sciatica, Spi (more content not included)... Normal [facility] XR Pelvis and Hip - right AP and Lateral frogon 11-22-2022 IMPRESSION: 1. Moderate arthritic changes in the right hip similar to previous study. Electrical Lineworker: YUMI Transcribe Date/Time: Nov 22 2022 6:44P Dictated by : JEREMY IBARRA MD This examination was interpreted and the report reviewed and electronically signed by: JEREMY IBARRA MD on Nov 22 2022 6:46PM [facility] DIVISION OF RADIOLOGY * * [...] the right hip similar to previous study. Electrical Lineworker: PSCB Transcribe Date/Time: Nov 22 2022 6:44P Dictated by : JEREMY IBARRA MD This examination was interpreted and the report reviewed and electronically signed by: JEREMY IBARRA MD on Nov 22 2022 6:46PM EST [facility] Radiology Study observation (narrative) [facility] XR Pelvis and Hip - right AP and Lateral frogOrdered By: Ccf Provider on 11-22-2022 [facility] Orthopedic Visit Reporton Orthopedic Visit Report [facility] [address] [place] [address] OFFICE VISIT Date of Service: 08/15/22 MR#: [id number] Acct: [id number] Name: Sarah CHAVEZ Rep #: [id number] : 1945 Provider: Dr. bAhishek moore DO Age/Sex: 76/F Location: [facility].MAYA Status: Signed Intake Vital Signs 08/13/22 [...] applicable) CC: Dr. Deirdre Quiñones MD Normal [facility] Spine Lumbar (Routine)on Spine Lumbar (Routine) [facility] Services [address] [place] [address] Spine Lumbar (Routine) MR#: [id number] Acct: [id number] Name: Sarah CHAVEZ Rep #: [id number] : 1945 F 76 From: Rolando Johnson PCP: Dr. Deirdre Quiñones MD Status: REG CLI Study: Spine Lumbar (Routine) Date of Exam: 08/11/22 Exam# [id number] Ordering Dr: Abhishek Kumar DO INDICATION: Back [...] 22:25 EST Reading Location ID and State: [address] [place] [address] Tel , Service support , CC: Dr. Abhishek Kumar DO; Dr. Deirdre Quiñones MD Electrical Lineworker: Signed Normal [facility] Lumbar Spine 2 or 3 Viewson 07-23-2022 Lumbar Spine 2 or 3 Views [facility] [address] [place] [address] Lumbar Spine 2 or 3 Views MR#: [id number] Acct: [id number] Name: Sarah CHAVEZ Rep #: [id number] : 1945 F 76 From: Naresh Johnson PCP: Dr. Deirdre Quiñones MD Status: DEP AMB Study: Lumbar Spine 2 or 3 Views Date of Exam: Exam# [id number] Ordering Dr: Abhishek Kumar DO STUDY: X-RAY [...] 16:22 EST Reading Location ID and State: [facility] / [place] , Service support , CC: Dr. Abhishek Kumar DO; Dr. Deirdre Quiñones MD Electrical Lineworker: Signed Normal [facility] Orthopedic Visit Reporton Orthopedic Visit Report [facility] [address] [place] [address] OFFICE VISIT Date of Service: 07/23/22 MR#: [id number] Acct: [id number] Name: Sarah CHAVEZ Rep #: [id number] : 1945 Provider: Dr. Abhishek moore DO Age/Sex: 76/F Location: [facility].MAYA Status: Signed Intake Vital Signs 05/11/21 [...] capsule ea PO 07/23/22 [History Confirmed 07/23/22] [facility] Medical History (Updated 07/23/22 @ 09:42 by [...] by me, Dr. Abhishek Kumar DO 07/23/22 4937. Sarah CHAVEZ is a 76 year old [...] unspecified 07/23/22 0943 Date Abhishek Kumar DO [facility] Signature: Date (if applicable) CC: Dr. Deirdre Quiñones, (more content not included)... Normal [facility] XR HIP BILATERAL 5V PEL/AP/L AT EACH HIPon 07-05-2022 IMPRESSION: 1. 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 2. Left hip unremarkable. 2. No fracture. Electrical Lineworker: WellocitiesB Transcribe Date/Time: Jul 05 2022 6:54P Dictated by : MILTON MILLER MD This examination was interpreted and the report reviewed and electronically signed by: MILTON MILLER MD on Jul 05 2022 6:57PM [facility] DIVISION OF RADIOLOGY * * [...] consistent with chondrocalcinosis. DIVISION [facility] RADIOLOGY [facility] * * *Final Report* [...] 2. Left hip unremarkable. 2. No fracture. Electrical Lineworker: PSCB Transcribe Date/Time: Jul 05 2022 6:54P Dictated by : MILTON MILLER MD This examination was interpreted and the report reviewed and electronically signed by: MILTON MILLER MD on Jul 05 2022 6:57PM EST [facility] Radiology Study observation (narrative) [facility] XR HIP BILATERAL 5V PEL/AP/L AT EACH HIPOrdered By: Ccf Provider on 07-05-2022 [facility] XR Chest PA and Lateralon IMPRESSION: No acute radiographic abnormality. Electrical Lineworker: [employer] Transcribe Date/Time: Nov 23 2021 12:24P Dictated [...] spine IMPRESSION IMPRESSION: No acute radiographic abnormality. Electrical Lineworker: PSCKate Transcribe Date/Time: Nov 23 2021 12:24P Dictated by : ANDREINA REYES MD This examination was interpreted and the report reviewed and electronically signed by: ANDREINA REYES MD on Nov 23 2021 12:25PM EST [facility] Radiology Study observation (narrative) [facility] XR Chest PA and LateralOrder ed By: Ccf Provider on 11-23-2021 [facility] ALBUMIN/CREAT RATIO RND URon 09-27-2021 Albumin DL <= 20 mg/L (U) [Mass/Vol] 36.6 mg/L [facility] Albumin/Creatinine (U) [Mass ratio] 86 mg/g High <30 mg/g [facility] Creatinine (U) [Mass/Vol] 42.8 mg/dL 20.0 - 300.0 mg/dL [facility] CBC W Auto Differential pane l (Bld)on 09-26-2021 Abs Immature Gran 0.04 k/uL <0.10 k/uL [facility] Basophils (Bld) [#/Vol] 0.15 10*3/uL High <0.11 k/uL [facility] Basophils/100 WBC (Bld) 1.4 % [facility] Differential cell count method Nom (Bld) Auto [facility] Eosinophils (Bld) [#/Vol] 0.62 10*3/uL High <0.46 k/uL [facility] Eosinophils/100 WBC (Bld) 5.6 % [facility] Erythrocyte distribution width (RBC) [Ratio] 11.9 % 11.5 - 15.0 % [facility] Hematocrit (Bld) [Volume fraction] 43.4 % 36.0 - 46.0 % [facility] Hemoglobin (Bld) [Mass/Vol] 14.0 g/dL 11.5 - 15.5 g/dL [facility] Immature Gran % 0.4 % [facility] Lymphocytes (Bld) [#/Vol] 4.75 10*3/uL High 1.00 - 4.00 k/uL [facility] Lymphocytes/100 WBC (Bld) 43.1 % [facility] MCH (RBC) [Entitic mass] 30.8 pg 26.0 - 34.0 pg [facility] MCHC (RBC) [Mass/Vol] 32.3 g/dL 30.5 - 36.0 g/dL [facility] MCV (RBC) [Entitic vol] 95.4 fL 80.0 - 100.0 fL [facility] Monocytes (Bld) [#/Vol] 0.87 10*3/uL High <0.87 k/uL [facility] Monocytes/100 WBC (Bld) 7.9 % [facility] Neutrophils (Bld) [#/Vol] 4.59 10*3/uL 1.45 - 7.50 k/uL [facility] Neutrophils/100 WBC (Bld) 41.6 % [facility] Nucleated RBC (Bld) [#/Vol] 10*3/uL <0.01 k/uL [facility] Nucleated RBC/100 WBC (Bld) [Ratio] 0.0 /100 WBC [facility] Platelet mean volume (Bld) [Entitic vol] 9.3 fL 9.0 - 12.7 fL [facility] Platelets (Bld) [#/Vol] 323 10*3/uL 150 - 400 k/uL [facility] RBC (Bld) [#/Vol] 4.55 10*6/uL 3.90 - 5.2 0 m/uL [facility] WBC (Bld) [#/Vol] 11.02 10*3/uL High 3.70 - 11 .00 k/uL [facility] Comprehensive metabolic 2000 panelon 09-26-2021 Albumin [Mass/Vol] 4.5 g/dL 3.9 - 4.9 g/dL [facility] ALP [Catalytic activity/Vol] 30 U/L Low 34 - 123 U/L [facility] ALT [Catalytic activity/Vol] 20 U/L 7 - 38 U/L [facility] Anion gap [Moles/Vol] 13 mmol/L 9 - 18 mmol/L [facility] AST [Catalytic activity/Vol] 24 U/L 13 - 35 U/L [facility] Bilirubin [Mass/Vol] 0.2 mg/dL 0.2 - 1 .3 mg/dL [facility] Calcium [Mass/Vol] 10.0 mg/dL 8.5 - 10. 2 mg/dL [facility] Chloride [Moles/Vol] 98 mmol/L 97 - 10 5 mmol/L [facility] CO2 [Moles/Vol] 24 mmol/L 22 - 30 mmol/L [facility] Creatinine [Mass/Vol] 0.68 mg/dL 0.58 - 0.96 mg/dL [facility] Estimated Glomerular Filtration Rate 90 mL/min/1.73m >=60 mL/min/1.73m [facility] Glucose [Mass/Vol] 179 mg/dL High 74 - 99 mg/dL [facility] Potassium [Moles/Vol] 4.6 mmol/L 3.7 - 5.1 mmol/L [facility] Protein [Mass/Vol] 7.2 g/dL 6.3 - 8.0 g/dL [facility] Sodium [Moles/Vol] 135 mmol/L Low 136 - 144 mmol/L [facility] Urea nitrogen [Mass/Vol] 17 mg/dL 7 - 21 mg/dL [facility] HGB A1Con 09-26-2021 Average glucose Estimated from glycated hemoglobin (Bld) [Mass/Vol] 220 mg/dL [facility] HbA1c (Bld) [Mass fraction] 9.3 % High 4.3 - 5.6 % [facility] LIPID PANEL, NONFASTINGon Cholesterol [Mass/Vol] 212 mg/dL High <200 mg/dL [facility] HDL Cholesterol, Nonfasting 46 mg/dL >39 mg/dL [facility] LDL Cholesterol, Nonfasting 105 mg/dL High <100 mg/dL [facility] LDL/HDL Ratio, Nonfasting 2.28 mg/dL <2.54 mg/dL [facility] Non HDL Cholesterol, Nonfasting 166 mg/dL High <130 mg/dL [facility] Total Chol/HDL Ratio, Nonfasting 4.61 mg/dL <5.10 mg/dL [facility] Triglycerides, Nonfasting 303 mg/dL High <150 mg/dL [facility] VLDL Cholesterol, Nonfasting 61 mg/dL High <30 mg/dL [facility] TSH BLDon 09-26-2021 TSH Qn 3.130 m[IU]/L 0.270 - 4.200 mIU/L [facility] CNOVon 07-18-2021 CNOV Office Visit (NEAGCL M) SHEREE CHAVEZ ([id number]) 1945 F Date Time Provider Department 07/18/21 10:30 AM DARRICK PIERRE NEAGCLM During your visit today, we recorded the following information about you: Temperature Pulse Blood pressure Weight 97.3 degrees 69/minute 118/80 80.7 kg Height 1.651 m Darrick Pierre MD 07/18/2021 11:27 AM Signed NEUROSURGERY FOLLOW UP OFFICE NOTE Dr. Darrick Pierre MD, [facility] Date of visit:July 18, 2021 Patient Name: Ms.Alma Darshan Chavez Date of : 1945 Current Age: [age] year old Sex: female MRN/E# [id number] Last Office Visit: June 08, 2021 Chief [...] (FLONASE) 50 mcg/actuation nasal spray Use 1 [place] in each nostril once daily as needed. [...] 90 ta (more content not included)... Normal [facility] CT BRAIN WO IVCONon 07-18-19 CT [...] base and imaged soft tissues are unremarkable. Electronics Inspector (topogram) images: No additional significant findings. IMPRESSION: Interval resolution of the previously noted parafalcine subdural hemorrhage and right frontal parietal subarachnoid hemorrhage. No new hemorrhage in the interval. Mild chronic microvascular ischemic change throughout the supratentorial white matter. Electrical Lineworker: YUMI Transcribe Date/Time: Jul 18 2021 2:47P Dictated by : AUSTIN JOHNSTON MD This examination was interpreted and the report reviewed and electronically signed by: AUSTIN JOHNSTON MD on Jul 18 2021 2:56PM EST [id number] Normal [facility] CNOVon 06-08-2021 CNOV Office Visit (JAYDON ) SHEREE CHAVEZ ([id number]) 1945 F Date Time Provider Department 06/08/21 10:30 AM DARRICK PIERRE During your visit today, we recorded the following information about you: Temperature Pulse Blood pressure Weight 97.6 degrees 83/minute 100/62 80.7 kg Height 1.651 m Darrick Pierre MD 06/08/2021 11:57 AM Signed NEUROSURGERY FOLLOW UP OFFICE NOTE Dr. Darrick Pierre MD, [facility] Date of visit: June 08, 2021 Patient Name: Ms.Alma Darshan Chavez Date of : 1945 Current Age: [age] year old Sex: female MRN/E# [id number] Last Office Visit: May 25, 2021 Chief [...] (FLONASE) 50 mcg/actuation nasal spray Use 1 [place] in each nostril once daily as needed. [...] 10 mg (more content not included)... Normal [facility] CT BRAIN WO IVCONon 06-08-20 21 [...] base and imaged soft tissues are unremarkable. Electronics Inspector (topogram) images: No additional findings. IMPRESSION: 1. Interval decrease of trace subarachnoid hemorrhage within right frontal lobe. Interval decrease in trace parafalcine subdural hemorrhage. No CT evidence of new intracranial hemorrhage. No significant mass effect. 2. No CT evidence of acute cortical infarct. 3. Chronic small vessel ischemic white matter disease and diffuse cerebral volume loss. Electrical Lineworker: THE MEDICAL CENTERKate Transcribe Date/Time: Jun 08 2021 1:15P Dictated by : LAMONTE COLINDRES MD This examination was interpreted and the report reviewed and electronically signed by: LAMONTE COLINDRES MD on Jun 08 2021 1:25PM EST [id number] Normal [facility] CNOVon 05-25-2021 CNOV Office Visit (NUAGAK ) SHEREE CHAVEZ ([id number]) 1945 F Date Time Provider Department 05/25/21 [...] Age: [age] year old Sex: female MRN/E# [id number] Last Office Visit: Hospital follow-up Chief Complaint: [...] (FLONASE) 50 mcg/actuation nasal spray Use 1 [place] in each nostril once daily as needed. [...] once d (more content not included)... Normal [facility] CT BRAIN WO IVCONon 05-25-20 21 [...] the mastoid air cells are grossly clear. Electronics Inspector (topogram) images: No additional significant findings. IMPRESSION: Decreased conspicuity hyperdense subdural hematoma associated with the interhemispheric falx, currently measuring approximately 2 mm in maximal thickness, previously approximately 4 mm. No definitive residual right frontal parietal convexity subdural hematoma. Trace right frontal parietal subarachnoid hemorrhage is less conspicuous. No new hemorrhage in the interval. Electrical Lineworker: PSCB Transcribe Date/Time: May 25 2021 1:27P Dictated by : AUSTIN JOHNSTON MD This examination was interpreted and the report reviewed and electronically signed by: AUSTIN JOHNSTON MD on May 25 2021 1:37PM EST [id number] Normal [facility] Basic metabolic 2000 panelon 05-13-2021 Anion gap [Moles/Vol] 10 mmol/L Normal -18 [facility] Comment on above: Order Comment: Speci men Type: BLOOD SPECIMEN Performed By: #### 1 9123-9, 2777-, 52944-6 ####[facility]ORATORYCLIA [id number] [place] [address] [place] Calcium [Mass/Vol] 8.9 mg/dL Normal 8.5-10.2 [facility] Comment on above: Order Comment: Speci men Type: BLOOD SPECIMEN Performed By: #### 1 9123-9, 27701-05, 41350-5 ####[facility]ORATORYCLIA [id number] [place] [address] [place] Chloride [Moles/Vol] 102 mmol/L Normal 97-105 [facility] Comment on above: Order Comment: Speci men Type: BLOOD SPECIMEN Performed By: #### 1 9123-9, 27701-05, 16104-8 ####[facility]ORYCLIA [id number] [place] [address] [place] CO2 [Moles/Vol] 24 mmol/L Normal 22-30 [facility] Comment on above: Order Comment: Speci men Type: BLOOD SPECIMEN Performed By: #### 1 9123-9, 2777, 79066-9 ####[facility]ORYCLIA [id number] [place] [address] [place] Creatinine [Mass/Vol] 0.78 mg/dL Normal 0.58-0.96 [facility] Comment on above: Order Comment: Speci [facility] Type: BLOOD SPECIMEN Performed By: #### 1 9123-9, 2777-1, 12531-9 ####[facility]ATORYCLIA [id number] [address] [place] GFR/1.73 sq M.predicted MDRD (S/P/Bld) [Vol rate/Area] mL/min/{1.73_m2} Normal [facility] Comment on above: Order [...] GFR. Performed By: #### 1 9123-9, 2777-1, 32423-1 ####[facility]ATORYCLIA [id number] [place] [address] [place] Glucose [Mass/Vol] 167 mg/dL High 74-99 [facility] Comment on above: [facility] Type: BLOOD SPECIMEN Result Comment: The Canadian Diabetes Association (ADA) provides guidance for cutoff [...] Standards of Medical Care in Diabetes 2016, Canadian Diabetes Association. Diabetes Care. 2016.39(Suppl 1). Performed By: #### 1 9123-9, 2777, 37765-8 ####[facility]ATORYCLIA [id number] [address] Potassium [Moles/Vol] 4.1 mmol/L Normal 3.7-5.1 [facility] Comment on above: Order Comment: Speci men Type: BLOOD SPECIMEN Performed By: #### 1 9123-9, 2777, 02465-4 ####[facility]ATORYCLIA [id number] [address] Sodium [Moles/Vol] 136 mmol/L Normal 136-144 [facility] Comment on above: Order Comment: Speci men Type: BLOOD SPECIMEN Performed By: #### 1 9123-9, 27701-05, ####[facility]ATORYCLIA [id number] [address] Urea nitrogen [Mass/Vol] 14 mg/dL Normal 7-21 [facility] Comment on above: Order Comment: Speci men Type: BLOOD SPECIMEN Performed By: #### 1 9123-9, 2777, ####[facility]ATORYCLIA [id number] [address] CALCIUM IONIZED Bon 05-13-20 21 Calcium.ionized (BldV) [Mass/Vol] 1.08 mmol/L Normal 1.08-1.30 [facility] Comment on above: Order Comment: Speci men Type: BLOOD SPECIMEN Performed By: #### I CA ####[facility]ATORYCLIA [id number] [address] Calcium.ionized adjusted to pH 7.4 (Bld) [Moles/Vol] 1.09 mmol/L Normal 1.08-1.30 [facility] Comment on above: Order Comment: Speci men Type: BLOOD SPECIMEN Performed By: #### I CA ####[facility]ATORYCLIA [id number] [address] CBC panel Auto (Bld)on 05-13 Erythrocyte distribution width (RBC) [Ratio] 11.9 % Normal 11.5-15.0 [facility] Comment on above: Order Comment: Speci men Type: BLOOD SPECIMEN Performed By: #### 5 8410-2 ####[facility]ORATORYCLIA [id number] [address] Hematocrit (Bld) [Volume fraction] 39.1 % Normal 36.0-46.0 [facility] Comment on above: Order Comment: Speci men Type: BLOOD SPECIMEN Performed By: #### 5 8410-2 ####[facility]ATORYCLIA [id number] [address] Hemoglobin (Bld) [Mass/Vol] 12.9 g/dL Normal 11.5-15.5 [facility] Comment on above: Order Comment: Speci men Type: BLOOD SPECIMEN Performed By: #### 5 8410-2 ####[facility]ORATORYCLIA [id number] [address] MCH (RBC) [Entitic mass] 31.2 pg Normal 26.0-34.0 [facility] Comment on above: Order Comment: Speci men Type: BLOOD SPECIMEN Performed By: #### 5 8410-2 ####[facility]ORYCLIA [id number] [address] MCHC (RBC) [Mass/Vol] 33.0 g/dL Normal 30.5-36.0 [facility] Comment on above: Order Comment: Speci men Type: BLOOD SPECIMEN Performed By: #### 5 8410-2 ####[facility]ATORYCLIA [id number] [address] MCV (RBC) [Entitic vol] 94.7 fL Normal 80.0-100.0 [facility] Comment on above: Order Comment: Speci men Type: BLOOD SPECIMEN Performed By: #### 5 8410-2 ####[facility]ATORYCLIA [id number] [address] [place] Nucleated RBC (Bld) [#/Vol] 10*3/uL Normal <0.01 [facility] Comment on above: Order Comment: Speci men Type: BLOOD SPECIMEN Performed By: #### 5 8410-2 ####[facility]ATORYCLIA [id number] [address] Platelet mean volume (Bld) [Entitic vol] 9.2 fL Normal 9.0-12.7 [facility] Comment on above: Order Comment: Speci men Type: BLOOD SPECIMEN Performed By: #### 5 8410-2 ####[facility]ATORYCLIA [id number] [address] Platelets (Bld) [#/Vol] 278 10*3/uL Normal 150-400 [facility] Comment on above: Order Comment: Speci men Type: BLOOD SPECIMEN Performed By: #### 5 8410-2 ####[facility]ATORYCLIA [id number] [address] RBC (Bld) [#/Vol] 4.13 10*6/uL Normal 3.90-5.20 [facility] Comment on above: Order Comment: Speci men Type: BLOOD SPECIMEN Performed By: #### 5 8410-2 ####[facility]ATORYCLIA [id number] [address] WBC (Bld) [#/Vol] 8.56 10*3/uL Normal 3.70-11.00 [facility] Comment on above: Order Comment: Speci men Type: BLOOD SPECIMEN Performed By: #### 5 8410-2 ####[facility]ORATORYCLIA [id number] [address] CNDSon 05-13-2021 CNDS HNO ID: [id number] Author: Margret Dawson APRN.CNP Service: General Surgery [...] IN THE HOSPITAL: You were admitted at [facility] on 05/11/2021 following a fall. As [...] you become constipated, you may use any miok-zpk-oqqrbyv treatment such as Milk of Magnesia, Sennakot, Prune Juice, Suppositories, etc. in addition to the stool softener/fiber supplement Other: Do not take any over the counter blood thinning medications such as ibuprofen, motrin, aspirin, naproxen, or aleve until cleared by neurosurgery. Use acetaminophen (Tylenol) as recommended on the bottle You should use an pniu-cbs-pwnzgka stool softener (Docusate sodium) and/or a fiber [...] call for appointment?: Yes Darrick Pierre MD [phone] [address] [facility] [address] PCP Requested Referral Follow-Up Appointment When: In 2 weeks Patient/Parents to call for appointment?: Yes Deirdre Quiñones MD [phone] [address] [place] [address] PCP Requested Referral Additional Provider to Provider [...] FOLLOW-UP APPO (more content not included)... Normal [facility] Magnesium SerPl-mCncon 05-13 Magnesium [Mass/Vol] 2.0 mg/dL Normal 1.7-2.3 [facility] Comment on above: Order Comment: Speci men Type: BLOOD SPECIMEN Performed By: #### 1 9123-9, 2777-1, 96740-2 ####[facility]ATORYCLIA [id number] [address] Phosphate SerPl-ncon 05-13 Phosphate [Mass/Vol] 3.6 mg/dL Normal 2.7-4.8 [facility] Comment on above: Order Comment: Speci men Type: BLOOD SPECIMEN Performed By: #### 1 9123-9, 2777-1, 63135-3 ####[facility]ORATORYCLIA [id number] [address] THERAPY NTon 05-13-2021 THERAPY NT HNO ID: [id number] Author: Lily Johnson [facility] Service: Speech/Swallow Author Type: Speech Language Pathologist Type: Therapy (PT/OT/Speech/Resp) Filed: 05/13/2021 9:26 AM Note Text: Speech Therapy Speech Evaluation SERVICE DATE: 05/13/2021 SERVICE TIME: 902 to 18 ROOM: [place] [address] IMPRESSION: Functional communication without limitations in: Speech,Language,Cognit [...] 09/07 Months Reversed 09/07 30 Seconds 08/10 Cjuo-Ywil-Yslk 09/07 Go/No-Go 09/07 Address Recall 08/10 Total [...] Skilled Need Interventions Provided: Speech Language Eval (00137) $ Speech Language Eval (42337) Billed Units: 1 unit Training and education [...] for this therapy evaluation/treatment. SIGNATURE: Lily Johnson CCC-THERMOMETER TESTER PATIENT NAME: Sheree Chavez DATE: May 13, 2021 TIME: 9:25 AM [facility] HNO [facility] [id number] Author: RT Michael(R) Service: Radiology Author Type: Hospital Sales Representative Type: [facility] Filed: 05/12/2021 [...] 2:08 PM Normal [facility] HNO ID: [id number] Author: RT Melba(R) Service: Radiology Author Type: [...] Jenn(R) May 12, 2021 12:20 PM Normal [facility] Basic metabolic 2000 panelon 05-12-2021 Anion gap [Moles/Vol] 11 mmol/L Normal 9-18 [facility] Comment on above: Order Comment: Speci men Type: BLOOD SPECIMEN Performed By: #### 1 9123-9, 05361-1, 2776- ####[facility]ORATORYCLIA [id number] [address] [place] OF [facility] Calcium [Mass/Vol] 8.5 mg/dL Normal 8.5-10.2 [facility] Comment on above: Order Comment: Speci men Type: BLOOD SPECIMEN Performed By: #### 1 9122-9, 33092-6, 2776- ####[facility]ATORYCLIA [id number] [address] [place] Chloride [Moles/Vol] 104 mmol/L Normal 97-105 [facility] Comment on above: Order Comment: Speci men Type: BLOOD SPECIMEN Performed By: #### 1 23-9, 88064-4, 2776- ####[facility]ATORYCLIA [id number] [address] [place] CO2 [Moles/Vol] 24 mmol/L Normal 22-30 [facility] Comment on above: Order Comment: Speci men Type: BLOOD SPECIMEN Performed By: #### 1 23-9, 24460-8, 2776- ####[facility]ATORYCLIA [id number] [place] [address] [place] Creatinine [Mass/Vol] 0.70 mg/dL Normal 0.58-0.96 [facility] Comment on above: Order Comment: Speci men Type: BLOOD SPECIMEN Performed By: #### 1 9123-9, 81571-7, 2776- ####[facility]ATORYCLIA [id number] [place] [address] [place] GFR/1.73 sq M.predicted MDRD (S/P/Bld) [Vol rate/Area] mL/min/{1.73_m2} Normal [facility] Comment on above: Order [...] actual GFR. Performed By: #### 1 9123-9, 75021-5, 2776- ####[facility]ATORYCLIA [id number] [place] [address] [place] Glucose [Mass/Vol] 146 mg/dL High 74-99 [facility] Comment on above: Order Comment: Speci men Type: BLOOD SPECIMEN Result Comment: The Canadian Diabetes Association (ADA) provides guidance for cutoff [...] Standards of Medical Care in Diabetes 2016, Canadian Diabetes Association. Diabetes Care. 2016.39(Suppl 1). Performed By: #### 1 9123-9, 66906-4, 2776-07 ####[facility]ORATORYCLIA [id number] [place] [id number] [place] Potassium [Moles/Vol] 3.8 mmol/L Normal 3.7-5.1 [facility] Comment on above: Order Comment: Speci men Type: BLOOD SPECIMEN Performed By: #### 1 9123-9, 36306-0, 2776- ####[facility]ATORYCLIA [id number] [address] Sodium [Moles/Vol] 139 mmol/L Normal 136-144 [facility] Comment on above: Order Comment: Speci men Type: BLOOD SPECIMEN Performed By: #### 1 9123-9, 96393-5, 2776- ####[facility]ATORYCLIA [id number] [address] Urea nitrogen [Mass/Vol] 9 mg/dL Normal 7-21 [facility] Comment on above: Order Comment: Speci men Type: BLOOD SPECIMEN Performed By: #### 1 9123-9, 19661-5, 2776-07 ####[facility]ATORYCLIA [id number] [address] CALCIUM IONIZED Bon 05-12-20 Calcium.ionized (BldV) [Mass/Vol] 1.12 mmol/L Normal 1.08-1.30 [facility] Comment on above: Order Comment: Speci men Type: BLOOD SPECIMEN Performed By: #### I CA ####[facility]ATORYCLIA [id number] [address] Calcium.ionized adjusted to pH 7.4 (Bld) [Moles/Vol] 1.10 mmol/L Normal 1.08-1.30 [facility] Comment on above: Order Comment: Speci men Type: BLOOD SPECIMEN Performed By: #### I CA ####[facility]ATORYCLIA [id number] [address] CBC panel Auto (Bld)on 05-12 Erythrocyte distribution width (RBC) [Ratio] 12.0 % Normal 11.5-15.0 [facility] Comment on above: Order Comment: Speci men Type: BLOOD SPECIMEN Performed By: #### 5 8410-2 ####[facility]ATORYCLIA [id number] [address] Hematocrit (Bld) [Volume fraction] 38.2 % Normal 36.0-46.0 [facility] Comment on above: Order Comment: Speci men Type: BLOOD SPECIMEN Performed By: #### 5 8410-2 ####[facility]ATORYCLIA [id number] [address] Hemoglobin (Bld) [Mass/Vol] 12.4 g/dL Normal 11.5-15.5 [facility] Comment on above: Order Comment: Speci men Type: BLOOD SPECIMEN Performed By: #### 5 8410-2 ####[facility]ATORYCLIA [id number] [address] MCH (RBC) [Entitic mass] 30.7 pg Normal 26.0-34.0 [facility] Comment on above: Order Comment: Speci men Type: BLOOD SPECIMEN Performed By: #### 5 8410-2 ####[facility]ORYCLIA [id number] [address] MCHC (RBC) [Mass/Vol] 32.5 g/dL Normal 30.5-36.0 [facility] Comment on above: Order Comment: Speci men Type: BLOOD SPECIMEN Performed By: #### 5 8410-2 ####[facility]ATORYCLIA [id number] [address] MCV (RBC) [Entitic vol] 94.6 fL Normal 80.0-100.0 [facility] Comment on above: Order Comment: Speci men Type: BLOOD SPECIMEN Performed By: #### 5 8410-2 ####[facility]ATORYCLIA [id number] [address] Nucleated RBC (Bld) [#/Vol] 10*3/uL Normal <0.01 [facility] Comment on above: Order Comment: Speci men Type: BLOOD SPECIMEN Performed By: #### 5 8410-2 ####[facility]ATORYCLIA [id number] [address] Platelet mean volume (Bld) [Entitic vol] 8.8 fL Low 9.0-12.7 [facility] Comment on above: Order Comment: Speci men Type: BLOOD SPECIMEN Performed By: #### 5 8410-2 ####[facility]ATORYCLIA [id number] [address] OF [facility] Platelets (Bld) [#/Vol] 273 10*3/uL Normal 150-400 [facility] Comment on above: Order Comment: Speci men Type: BLOOD SPECIMEN Performed By: #### 5 8410-2 ####[facility]ATORYCLIA [id number] [address] RBC (Bld) [#/Vol] 4.04 10*6/uL Normal 3.90-5.20 [facility] Comment on above: Order Comment: Speci men Type: BLOOD SPECIMEN Performed By: #### 5 8410-2 ####[facility]ATORYCLIA [id number] [address] WBC (Bld) [#/Vol] 10.12 10*3/uL Normal 3.70-11.00 [facility] Comment on above: Order Comment: Speci men Type: BLOOD SPECIMEN Performed By: #### 5 8410-2 ####[facility]ORATORYCLIA [id number] [address] BRAIN WO IVCONon 05-12-[address] BRAIN WO IVCON * * *Final Report* * * DATE OF EXAM: May 12 2021 6:35AM [facility] 0504 - CT BRAIN WO IVCON [...] Reduction Employed: [employer] COMPARISON: 05/11/2021 RESULT: Electronics Inspector (topogram) images: Post-operative change: None. Acute change: [...] evidence of new intracranial hemorrhage is identified. Electrical Lineworker: YUMI Transcribe Date/Time: May 12 2021 6:46A Dictated by : LIONEL LARSON MD This examination was interpreted and the report reviewed and electronically signed by: LIONEL LARSON MD on May 12 2021 6:51AM EST [id number] Normal [facility] CT LUMBAR SPINE WO IVCONon 1 07-12-2020 CT LUMBAR SPINE WO IVCON * * *Final Report* * * DATE OF EXAM: May 12 2021 1:58PM [facility] 0508 - CT LUMBAR SPINE WO [...] level is at the level iliac crests Electronics Inspector (topogram) images: Moderate degree of arterial calcification [...] Coexisting moderate degree of bilateral foraminal stenosis Electrical Lineworker: THE MEDICAL CENTERKate Transcribe Date/Time: May 12 2021 2:14P Dictated by : MARIA G GRAHAM MD This examination was interpreted and the report reviewed and electronically signed by: MARIA G GRAHAM MD on May 12 2021 2:28PM EST [id number] Normal [facility] CT PELVIS ORTHO WO IVCONon 1 07-12-2020 CT PELVIS ORTHO WO IVCON * * *Final Report* * * DATE OF EXAM: May 12 2021 5:49AM [facility] 0087 - CT PELVIS ORTHO WO [...] CAM femoroacetabular impingement, right worse than left. Electrical Lineworker: PSC[facility] Transcribe Date/Time: May 12 2021 7:21A Dictated by : YANA KEENE MD This examination was interpreted and the report reviewed and electronically signed by: YANA KEENE MD on May 12 2021 7:33AM EST [id number] Normal [facility] ED NOTEon 05-12-2021 ED NOTE HNO ID: [id number] Author: Harjit Cosme Service: Emergency Medicine Author Type: Hospital Sales Representative Type: ED Notes Filed: 05/12/2021 12:41 PM Note Text: [id number]. Rn informed Normal [facility] ED NOTE HNO ID: [id number] Author: Leah Roach RN Service: Emergency Medicine Author Type: Registered Nurse Type: ED Notes Filed: 05/12/2021 6:53 AM Note Text: Trauma team at bedside for update and reassessment of patient. Per team, general surgery and ortho, patient should be able to go to floor other than ICU. Pt will continue to be NPO until recent scans are back and reeval completed. Normal [facility] ED NOTE HNO ID: [id number] Author: Leah Roach RN Service: Emergency Medicine Author Type: Registered Nurse Type: ED Notes Filed: 05/12/2021 4:13 AM Note Text: Pt up with one assist to bedside commode. Pt denies any pain. Pt alert and oriented, no neuro deficits noted. Normal [facility] ED PROV NOTEon 05-12-2021 ED PROV NOTE HNO ID: [id number] Author: Amalia Mathias MD Service: Emergency Medicine [...] for disposition details Amalia Mathias MD 05/11/21 9401 Normal [facility] Magnesium SerPl-mCncon 05-12 Magnesium [Mass/Vol] 1.6 mg/dL Low 1.7-2.3 [facility] Comment on above: Order Comment: Speci men Type: BLOOD SPECIMEN Performed By: #### 1 9123-9, 76329-8, 2777-1 ####[facility]ATORYCLIA [id number] [address] [place] Phosphate SerPl-mCncon 05-12 Phosphate [Mass/Vol] 3.9 mg/dL Normal 2.7-4.8 [facility] Comment on above: Order Comment: Speci men Type: BLOOD SPECIMEN Performed By: #### 1 9123-9, 45120-0, 2777- ####[facility]ATORYCLIA [id number] [place] [address] [place] SARS-CoV-2 RNA Resp Ql EULALIA+p robeon 05-12-2021 SARS-CoV-2 (COVID-19) RNA EULALIA+probe Ql (Resp) COVID 19 RESULT: SARS-CoV-2 (Agent of COVID-19) Not Detected by PCR. This test has been authorized by FDA under an Emergency Use Authorization (EUA). Normal [facility] Comment on above: Performed By: #### 9 4500-6 ####[facility]ATORYCLIA [id number] [place] [address] [place] STAPH AUREUS PCRon S. aureus and MRSA panel EULALIA+probe (Nose) Normal Negative [facility] Comment on above: Order Comment: Speci men Type: SWAB OF INTERNAL NOSE Result Comment: Nega tive for Staphylococcus aureus by PCR. Negative for MRSA by PCR Performed By: #### S APCR ####[facility]ATORYCLIA [id number] [address] TOX SCREEN ROUT URon 021 Amphetamines Confirm (U) [Mass/Vol] Negative Normal Negative [facility] Comment on above: Order Comment: Speci men Type: URINE SPECIMEN Result Comment: Cuto ff threshold at 1000 ng/mL. Performed By: #### U TOX2 ####[facility]ATORYCLIA [id number] [address] BARBITURATES, URINE Negative Normal Negative [facility] Comment on above: Order Comment: Speci men Type: URINE SPECIMEN Result Comment: Cuto ff threshold at 200 ng/mL. Performed By: #### U TOX2 ####[facility]ORYCLIA [id number] [address] BENZODIAZEPINES, UR Negative Normal Negative [facility] Comment on above: Order Comment: Speci men Type: URINE SPECIMEN Result Comment: Cuto ff threshold at 200 ng/mL. Performed By: #### U TOX2 ####[facility]ORYCLIA [id number] [address] CANNABINOIDS,URINE Negative Normal Negative [facility] Comment on above: Order Comment: Speci men Type: URINE SPECIMEN Result Comment: Cuto ff threshold at 50 ng/mL. Performed By: #### U TOX2 ####[facility]ORYCLIA [id number] [address] Cocaine Ql (U) Negative Normal Negative [facility] Comment on above: Order Comment: Speci men Type: URINE SPECIMEN Result Comment: Cuto ff threshold at 300 ng/mL. Performed By: #### U TOX2 ####[facility]ORYCLIA [id number] [address] OF [facility] Ethanol (U) [Mass/Vol] <11 Normal <11 [facility] Comment on above: Order Comment: Speci men Type: URINE SPECIMEN Performed By: #### U TOX2 ####[facility]ATORYCLIA [id number] [address] Opiates Screen Ql (U) Negative Normal Negative [facility] Comment on above: Order Comment: Speci men Type: URINE SPECIMEN Result Comment: Cuto ff threshold at 300 ng/mL. Performed By: #### U TOX2 ####[facility]ORYCLIA [id number] [address] oxyCODONE cutoff Screen (U) [Mass/Vol] Negative Normal Negative [facility] Comment on above: Order Comment: Speci men Type: URINE SPECIMEN Result Comment: Cuto ff threshold at 100 ng/mL. Performed By: #### U TOX2 ####[facility]ORYCLIA [id number] [address] Phencyclidine Ql (U) Negative Normal Negative [facility] Comment on above: Order Comment: Speci men Type: URINE SPECIMEN Result Comment: Cuto ff threshold at 25 ng/mL. Performed By: #### U TOX2 ####[facility]ORYCLIA [id number] [address] XR CERVICAL 2V FLEX/EXTon XR CERVICAL [...] No abnormal subluxation with flexion and extension. Electrical Lineworker: PSCB Transcribe Date/Time: May 12 2021 3:07P Dictated by : FANNY CAMPOS MD This examination was interpreted and the report reviewed and electronically signed by: FANNY CAMPOS MD on May 12 2021 3:09PM EST [id number] Normal [facility] ALLIED HEALTHon 05-11-2021 ALLIED HEALTH HNO ID: [id number] Author: Chaplain Genesis Service: Spiritual Care Author Type: Audit Director Type: Allied Health Filed: 05/11/2021 3:43 PM Note Text: SPIRITUAL CARE PROGRESS NOTE SERVICE DATE: 05/11/2021 SERVICE TIME: 3:30pm Audit Director responded to ED page; but no family was present To contact the Spiritual Care Department: Please call . SIGNATURE: Chaplain Genesis PATIENT NAME: Sheree Chavez DATE: May 11, 2021 TIME: 3:42 PM PAGER/CONTACT #: [phone] Normal [facility] CBC panel Auto (Bld)on 05-11 Erythrocyte distribution width (RBC) [Ratio] 11.9 % Normal 11.5-15.0 [facility] Comment on above: Order Comment: Speci men Type: BLOOD SPECIMEN Performed By: #### 5 8410-2 ####[facility]ATORYCLIA [id number] [address] STATES OF [facility] Hematocrit (Bld) [Volume fraction] 42.2 % Normal 36.0-46.0 [facility] Comment on above: Order Comment: Speci men Type: BLOOD SPECIMEN Performed By: #### 5 8410-2 ####[facility]ATORYCLIA [id number] [address] [place] Hemoglobin (Bld) [Mass/Vol] 13.9 g/dL Normal 11.5-15.5 [facility] Comment on above: Order Comment: Speci men Type: BLOOD SPECIMEN Performed By: #### 5 8410-2 ####[facility]ORYCLIA [id number] [address] [place] MCH (RBC) [Entitic mass] 30.8 pg Normal 26.0-34.0 [facility] Comment on above: Order Comment: Speci men Type: BLOOD SPECIMEN Performed By: #### 5 8410-2 ####[facility]ORYCLIA [id number] [address] MCHC (RBC) [Mass/Vol] 32.9 g/dL Normal 30.5-36.0 [facility] Comment on above: Order Comment: Speci men Type: BLOOD SPECIMEN Performed By: #### 5 8410-2 ####[facility]ATORYCLIA [id number] [address] MCV (RBC) [Entitic vol] 93.6 fL Normal 80.0-100.0 [facility] Comment on above: Order Comment: Speci men Type: BLOOD SPECIMEN Performed By: #### 5 8410-2 ####[facility]ATORYCLIA [id number] [address] Nucleated RBC (Bld) [#/Vol] 10*3/uL Normal <0.01 [facility] Comment on above: Order Comment: Speci men Type: BLOOD SPECIMEN Performed By: #### 5 8410-2 ####[facility]ATORYCLIA [id number] [address] Platelet mean volume (Bld) [Entitic vol] 8.9 fL Low 9.0-12.7 [facility] Comment on above: Order Comment: Speci men Type: BLOOD SPECIMEN Performed By: #### 5 8410-2 ####[facility]ATORYCLIA [id number] [address] Platelets (Bld) [#/Vol] 317 10*3/uL Normal 150-400 [facility] Comment on above: Order Comment: Speci men Type: BLOOD SPECIMEN Performed By: #### 5 8410-2 ####[facility]ATORYCLIA [id number] [address] RBC (Bld) [#/Vol] 4.51 10*6/uL Normal 3.90-5.20 [facility] Comment on above: Order Comment: Speci men Type: BLOOD SPECIMEN Performed By: #### 5 8410-2 ####[facility]ATORYCLIA [id number] [address] OF [facility] WBC (Bld) [#/Vol] 13.23 10*3/uL High 3.70-11.00 [facility] Comment on above: Order Comment: Speci men Type: BLOOD SPECIMEN Performed By: #### 5 8410-2 ####[facility]ATORYCLIA [id number] [address] CONSULTon 05-11-2021 CONSULT HNO ID: [id number] Author: Lnae Flores MD Service: Orthopaedic Surgery Author Type: Physician Type: Consults Filed: 05/12/2021 11:54 AM Note Text: ORTHOPAEDIC SURGERY CONSULT Pt: SHEREE CHAVEZ Date of Consultation: 05/11/2021 Physician Consulted: Dr. Flores Reason for Consultation: R hip pain, concern for occult hip fracture HPI: 75 year old female presented to [facility] as a trauma transfer after sustaining [...] daily. - Blood-Glucose Meter (FREESTYLE LITE METER) [facility] monitoring kit 1 Each. Freestyle LITE Meter [...] 4.0 05/11/2021 (more content not included)... Normal [facility] CONSULT HNO ID: [id number] Author: Bridgett Guerrero PA-C Service: Neurosurgery Author Type: Physician Lapeler Type: Consults Filed: 05/11/2021 5:26 PM Note [...] brought her to OSH, then transferred to [facility]. She is currently awake and alert [...] mouth onc (more content not included)... Normal [facility] CONSULT HNO ID: [id number] Author: Nicolas Donald MD Service: General Surgery [...] stable subdural (more content not included)... Normal [facility] CT BRAIN WO IVCONon 05-11-[address] BRAIN WO IVCON * * *Final Report* * * DATE OF EXAM: May 11 2021 3:47PM [facility] 0504 - CT BRAIN WO IVCON [...] and C6-7. No significant bony foraminal stenosis Electronics Inspector (topogram) images: No additional findings. IMPRESSION: Stable bilateral subarachnoid and subdural hemorrhage. No new findings. No acute findings in the cervical spine. Degenerative changes. Anatomic Variant: None. Assume 7 cervical vertebrae with counting from the craniocervical junction. Electrical Lineworker: PSCB Transcribe Date/Time: May 11 2021 4:06P Dictated by : CHRISSY CAMACHO MD This examination was interpreted and the report reviewed and electronically signed by: CHRISSY CAMACHO MD on May 11 2021 4:14PM EST [id number] Normal [facility] CT CERVICAL SPINE WO IVCONon 05-11-2021 CT CERVICAL SPINE WO IVCON * * *Final Report* * * DATE OF EXAM: May 11 2021 3:47PM [facility] 0505 - CT CERVICAL SPINE WO [...] and C6-7. No significant bony foraminal stenosis Electronics Inspector (topogram) images: No additional findings. IMPRESSION: Stable bilateral subarachnoid and subdural hemorrhage. No new findings. No acute findings in the cervical spine. Degenerative changes. Anatomic Variant: None. Assume 7 cervical vertebrae with counting from the craniocervical junction. Electrical Lineworker: YUMI Transcribe Date/Time: May 11 2021 4:06P Dictated by : CHRISSY CAMACHO MD This examination was interpreted and the report reviewed and electronically signed by: CHRISSY CAMACHO MD on May 11 2021 4:14PM EST [id number] Normal [facility] Comprehensive metabolic 2000 panelon 05-11-2021 Albumin [Mass/Vol] 4.4 g/dL Normal 3.9-4.9 [facility] Comment on above: Order Comment: Speci men Type: BLOOD SPECIMEN Performed By: #### 2 4323-8, 3040-3 ####[facility]ATORYCLIA [id number] [address] ALP [Catalytic activity/Vol] 31 U/L Low 34-123 [facility] Comment on above: Order Comment: Speci men Type: BLOOD SPECIMEN Performed By: #### 2 4323-8, 3040-3 ####[facility]ORYCLIA [id number] [address] [facility] ALT With P-5'-P [Catalytic activity/Vol] 22 U/L Normal 7-38 [facility] Comment on above: Order Comment: Speci men Type: BLOOD SPECIMEN Performed By: #### 2 4323-8, 3040-3 ####[facility]ORYCLIA [id number] [place], [place] [address] [place] [address] Anion gap [Moles/Vol] 14 mmol/L Normal 9-18 [facility] Comment on above: Order Comment: Speci men Type: BLOOD SPECIMEN Performed By: #### 2 4323-8, 3040-3 ####[facility]ORYCLIA [id number] [address] [facility] AST With P-5'-P [Catalytic activity/Vol] 20 U/L Normal 13-35 [facility] Comment on above: Order Comment: Speci men Type: BLOOD SPECIMEN Performed By: #### 2 4323-8, 3040-3 ####[facility]ORYCLIA [id number] [address] Bilirubin [Mass/Vol] 0.3 mg/dL Normal 0.2-1.3 [facility] Comment on above: Order Comment: Speci men Type: BLOOD SPECIMEN Performed By: #### 2 4323-8, 3040-3 ####[facility]ORYCLIA [id number] [address] STATES OF [facility] Calcium [Mass/Vol] 9.5 mg/dL Normal 8.5-10.2 [facility] Comment on above: Order Comment: Speci men Type: BLOOD SPECIMEN Performed By: #### 2 4323-8, 0-3 ####[facility]ORYCLIA [id number] [address] STATES OF [facility] Chloride [Moles/Vol] 99 mmol/L Normal 97-105 [facility] Comment on above: Order Comment: Speci men Type: BLOOD SPECIMEN Performed By: #### 2 4323-8, 3039-3 ####[facility]ORYCLIA [id number] [address] [place] CO2 [Moles/Vol] 24 mmol/L Normal 22-30 [facility] Comment on above: Order Comment: Speci men Type: BLOOD SPECIMEN Performed By: #### 2 4323-8, 0-3 ####[facility]ORYCLIA [id number] [address] STATES OF [facility] Creatinine [Mass/Vol] 0.73 mg/dL Normal 0.58-0.96 [facility] Comment on above: Order Comment: Speci men Type: BLOOD SPECIMEN Performed By: #### 2 4323-8, 0-3 ####[facility]ORYCLIA [id number] [address] [place] GFR/1.73 sq M.predicted MDRD (S/P/Bld) [Vol rate/Area] mL/min/{1.73_m2} Normal [facility] Comment on above: Order [...] GFR. Performed By: #### 2 4323-8, 3039-3 ####[facility]ATORYCLIA [id number] [place] [address] [place] Glucose [Mass/Vol] 125 mg/dL High 74-99 [facility] Comment on above: Order Comment: Speci men Type: BLOOD SPECIMEN Result Comment: The Canadian Diabetes Association (ADA) provides guidance for cutoff [...] Standards of Medical Care in Diabetes 2016, Canadian Diabetes Association. Diabetes Care. 2016.39(Suppl 1). Performed By: #### 2 4323-8, 3 ####[facility]ATORYCLIA [id number] [place] [address] [place] Potassium [Moles/Vol] 4.0 mmol/L Normal 3.7-5.1 [facility] Comment on above: Order Comment: Speci men Type: BLOOD SPECIMEN Performed By: #### 2 4323-8, 3039-3 ####[facility]ATORYCLIA [id number] [place] [address] [place] Protein [Mass/Vol] 7.5 g/dL Normal 6.3-8.0 [facility] Comment on above: Order Comment: Speci men Type: BLOOD SPECIMEN Performed By: #### 2 4323-8, 3040-3 ####[facility]CLIA [id number] [address] Sodium [Moles/Vol] 137 mmol/L Normal 136-144 [facility] Comment on above: Order Comment: Speci men Type: BLOOD SPECIMEN Performed By: #### 2 4323-8, 3040-3 ####[facility]ORYCLIA [id number] [address] Urea nitrogen [Mass/Vol] 10 mg/dL Normal 7-21 [facility] Comment on above: Order Comment: Speci men Type: BLOOD SPECIMEN Performed By: #### 2 4323-8, 3040-3 ####[facility]CLIA [id number] [address] ED NOTEon 05-11-2021 ED NOTE HNO ID: [id number] Author: Jocelyn Austin Service: ? Author Type: Precipitator and Hospital Sales Representative Type: ED Notes Filed: 05/11/2021 3:26 PM Note Text: Bed: [address] [place] [address] Expected date: Expected time: Means of arrival: [facility] Comments: [place] transfer trauma 2 Normal [facility] ED PROV NOTEon 05-11-2021 ED PROV NOTE HNO ID: [id number] Author: Eze James MD Service: Emergency Medicine [...] as a trauma level 2 transfer from [place] for intracranial bleeding after mechanical fall. Patient fell from a stepstool backwards hitting her head on the ground. She was evaluated at [facility] and was found to have [...] (Tenderness to (more content not included)... Normal [facility] Ethanol SerPl-mCncon 021 Ethanol [Mass/Vol] mg/dL Normal <11 [facility] Comment on above: Order Comment: Speci men Type: BLOOD SPECIMEN Performed By: #### 5 643-2 ####[facility]ORYCLIA [id number] [address] [place] HISTORY PHYSICALon HISTORY PHYSICAL HNO ID: [id number] Author: Chacho Ocampo MD Service: General Surgery [...] Date(s) Administered COVID-19 vaccine, age 12+ yr ([employer]) 08/16/2020 09/07/2020 04/08/2021 H1N1 Influenza 05/17/2009 Influenza [...] No crep (more content not included)... Normal [facility] Lipase SerPl-cCncon 05-11-20 21 Lipase [Catalytic activity/Vol] 36 U/L Normal 16-61 [facility] Comment on above: Order Comment: Speci men Type: BLOOD SPECIMEN Performed By: #### 2 4323-8, 3040-3 ####[facility]ATORYCLIA [id number] [place] [address] [place] PT panel Coag (PPP)on 2020 INR Coag (PPP) [Relative time] 1.0 {INR} Normal 0.9-1.3 [facility] Comment on above: Order Comment: Speci men Type: BLOOD SPECIMEN Result Comment: Alisha min K Antagonist (VKA) Therapeutic Range: INR 2 to 3 (Target INR of 2.5) Note: For patients treated with VKA drugs, such as warfarin, the [employer] College of Chest Physicians 2012 Guideline recommends [...] Chest 2012, 141:7S-47S Michele RA, et al. [facility] 2017, 70: 252-289 Performed By: #### 3 4528-0, 97946-0 ####[facility]ORYCLIA [id number] [address] PT Coag (PPP) [Time] 10.9 s Normal 9.7-13.0 [facility] Comment on above: Order Comment: Speci men Type: BLOOD SPECIMEN Performed By: #### 3 4528-0, 66266-7 ####[facility]ORYCLIA [id number] [address] TYPE AND SCREENon 05-11-2021 ABO A Normal [facility] Comment on above: Order Comment: Speci men Type: BLOOD SPECIMEN Performed By: #### T SCR #### [facility] CLIA [id number] [address] HISTORICAL AB SCR STATUS Negative [facility] Comment on above: Order Comment: Speci men Type: BLOOD SPECIMEN Performed By: #### T SCR #### [facility] CLIA [id number] [address] Rh Nom (Bld) Positive Normal [facility] Comment on above: Order Comment: Speci men Type: BLOOD SPECIMEN Performed By: #### T SCR #### [facility] CLIA [id number] [address] TYPE AND SCREEN EXPIRATION 05/14/2021 23:59 Normal [facility] Comment on above: Order Comment: Speci men Type: BLOOD SPECIMEN Performed By: #### T SCR #### [facility] CLIA [id number] [address] OF [facility] aPTT PPPon 05-11-2021 aPTT Coag (PPP) [Time] 27.1 s Normal 23.0-32.4 [facility] Comment on above: Order Comment: Speci men Type: BLOOD SPECIMEN Performed By: #### 3 4528-0, 04064-3 ####[facility]ATORYCLIA [id number] [place] [id number] [facility] Vital Signs Date Time Vital Sign Value Performing Clinician Facility 09-23-2024 09:12-0400 Body mass index (BMI) [Ratio] 31.68 kg/m2 Silvia Vazquez APRN.SPRING REPAIRER HELPER HAND Work Phone: [facility] 09-23-2024 09:12-0400 Body weight 76.4 kg Silvia Vazquez APRN.SPRING REPAIRER [employer] Work Phone: [facility] 09-23-2024 09:12-0400 Diastolic blood pressure 70 mm[Hg] Silvia Vazquez ANGLEDOZER OPERATOR.SPRING REPAIRER [employer] Work Phone: [facility] 09-23-2024 09:12-0400 Heart rate 85 /min Silvia Vazquez APRN.SPRING REPAIRER [employer] Work Phone: [facility] 09-23-2024 09:12-0400 Respiratory rate 16 /min Silvia Vazquez ANGLEDOZER OPERATOR.SPRING REPAIRER [employer] Work Phone: [facility] 09-23-2024 09:12-0400 SaO2% (BldA) [Mass fraction] 96 % Silvia Vazquez ANGLEDOZER OPERATOR.SPRING REPAIRER [employer] Work Phone: [facility] 09-23-2024 09:12-0400 Systolic blood pressure 110 mm[Hg] Silvia Vazquez APRN.SPRING REPA[employer]ER [employer] Work Phone: [facility] 06-17-2024 09:52-0500 Body height 155.3 cm Silvia Vazquez APRN.SPRING REPAIRER [employer] Work Phone: [facility] 06-17-2024 09:52-0500 Body mass index (BMI) [Ratio] 32.59 kg/m2 Silvia Tannhof ANGLEDOZER OPERATOR.SPRING REPAIRER [employer] Work Phone: [facility] 06-17-2024 09:52-0500 Body weight 78.6 kg Silvia Tannhof ANGLEDOZER OPERATOR.SPRING REPAIRER [employer] Work Phone: [facility] 06-17-2024 09:52-0500 Diastolic blood pressure 70 mm[Hg] Silvia Tannhof ANGLEDOZER OPERATOR.SPRING REPAIRER [employer] Work Phone: [facility] 06-17-2024 09:52-0500 Heart rate 87 /min Silvia Tannhof ANGLEDOZER OPERATOR.SPRING REPAIRER [employer] Work Phone: [facility] 06-17-2024 09:52-0500 Respiratory rate 16 /min Silvia Tannhof ANGLEDOZER OPERATOR.SPRING REPAIRER [employer] Work Phone: [facility] 06-17-2024 09:52-0500 SaO2% (BldA) [Mass fraction] 98 % Silvia Tannhof ANGLEDOZER OPERATOR.SPRING REPAIRER [employer] Work Phone: [facility] 06-17-2024 09:52-0500 Systolic blood pressure 100 mm[Hg] Silvia Tannhof ANGLEDOZER OPERATOR.SPRING REPAIRER [employer] Work Phone: [facility] 04-29-2023 10:38-0400 Body height 153.3 cm Silvia Tannhof ANGLEDOZER OPERATOR.SPRING REPAIRER [employer] Work Phone: [facility] 04-29-2023 10:38-0400 Body weight 79.38 kg Silvia Tannhof ANGLEDOZER OPERATOR.SPRING REPAIRER [employer] Work Phone: [facility] 04-29-2023 10:38-0400 Diastolic blood pressure 70 mm[Hg] Silvia Tannhof ANGLEDOZER OPERATOR.SPRING REPAIRER [employer] Work Phone: [facility] 04-29-2023 10:38-0400 Heart rate 105 /min Silvia Tannhof ANGLEDOZER OPERATOR.SPRING REPAIRER [employer] Work Phone: [facility] 04-29-2023 10:38-0400 Respiratory rate 16 /min Silvia Tannhof ANGLEDOZER OPERATOR.SPRING REPAIRER [employer] Work Phone: [facility] 04-29-2023 10:38-0400 SaO2% (BldA) [Mass fraction] 97 % Silvia Vazquez ANGLEDOZER OPERATOR.SPRING REPAIRER HELPER [employer] Work Phone: [facility] 04-29-2023 10:38-0400 Systolic blood pressure 100 mm[Hg] Silvia Vazquez ANGLEDOZER OPERATOR.SPRING REPAIRER [employer]PER [employer] Work Phone: [facility] 04-22-2023 11:54-0400 Body temperature 97.39 [degF] Spenecr John ANGLEDOZER OPERATOR.SPRING REPAIRER [employer] Work Phone: [facility] 04-22-2023 11:54-0400 Body weight 79.83 kg Spencer John ANGLEDOZER OPERATOR.SPRING REPAIRER [employer] Work Phone: [facility] 04-22-2023 11:54-0400 Diastolic blood pressure 80 mm[Hg] Spencer John ANGLEDOZER OPERATOR.SPRING REPAIRER HELPER [employer] Work Phone: [facility] 04-22-2023 11:54-0400 Heart rate 88 /min Spencer John ANGLEDOZER OPERATOR.SPRING REPAIRER HELPER HAND Work Phone: [facility] 04-22-2023 11:54-0400 Respiratory rate 16 /min Spencer John ANGLEDOZER OPERATOR.SPRING REPAIRER HELPER HAND Work Phone: [facility] 04-22-2023 11:54-0400 SaO2% (BldA) [Mass fraction] 97 % Spencer John ANGLEDOZER OPERATOR.SPRING REPAIRER HELPER HAND Work Phone: [facility] 04-22-2023 11:54-0400 Systolic blood pressure 138 mm[Hg] Spencer John ANGLEDOZER OPERATOR.SPRING REPAIRER HELPER HAND Work Phone: [facility] 04-19-2023 20:21-0400 Body temperature 96.3 [degF] Dr. Deirdre Quiñones Work Phone: [facility] 04-19-2023 20:21-0400 Diastolic blood pressure 65 mm[Hg] Dr. Deirdre Quiñones Work Phone: [facility] 04-19-2023 20:21-0400 Heart rate 107 /min Dr. Deirdre Quiñones Work Phone: [facility] 04-19-2023 20:21-0400 Respiratory rate 18 /min Dr. Deirdre Quiñones Work Phone: [facility] 04-19-2023 20:21-0400 SaO2% (BldA) [Mass fraction] 98 % Dr. Deirdre Quiñones Work Phone: [facility] 04-19-2023 20:21-0400 Systolic blood pressure 102 mm[Hg] Dr. Deirdre Quiñones Work Phone: [facility] 04-19-2023 20:16-0400 Body height 157.[address] Deirdre Quiñones Work Phone: [facility] 04-19-2023 20:16-0400 Body mass index (BMI) [Ratio] 31.7 kg/m2 Dr. Deirdre Quiñones Work Phone: [facility] 04-19-2023 20:16-0400 Body weight 78.[address] Deirdre Quiñones Work Phone: [facility] 04-19-2023 19:52-0400 Body temperature 97.7 [degF] Maura Morillo APRN.SPRING REPAIRER HELPER HAND Work Phone: [facility] 04-19-2023 19:52-0400 Body weight 79.56 kg Maura Morillo APRN.SPRING REPAIRER HELPER HAND Work Phone: [facility] 04-19-2023 19:52-0400 Diastolic blood pressure 72 mm[Hg] Maura Morillo APRN.SPRING REPAIRER HELPER HAND Work Phone: [facility] 04-19-2023 19:52-0400 Heart rate 104 /min Maura Morillo APRN.SPRING REPAIRER HELPER HAND Work Phone: [facility] 04-19-2023 19:52-0400 Respiratory rate 24 /min Maura Morillo APRN.SPRING REPAIRER HELPER HAND Work Phone: [facility] 04-19-2023 19:52-0400 SaO2% (BldA) [Mass fraction] 98 % Maura Morillo APRN.SPRING REPAIRER HELPER HAND Work Phone: [facility] 04-19-2023 19:52-0400 Systolic blood pressure 134 mm[Hg] Maura Morillo ANGLEDOZER OPERATOR.SPRING REPAIRER HELPER HAND Work Phone: [facility] 02-23-2023 00:03-0400 Diastolic blood pressure 91 mm[Hg] [facility] 02-23-2023 00:03-0400 Heart rate 71 /min [facility] 02-23-2023 00:03-0400 Respiratory rate 18 /min [facility] 02-23-2023 00:03-0400 SaO2% (BldA) [Mass fraction] 99 % [facility] 02-23-2023 00:03-0400 Systolic blood pressure 172 mm[Hg] [facility] 02-22-2023 22:11-0400 Body mass index (BMI) [Ratio] 33.8 kg/m2 [facility] 02-22-2023 22:11-0400 Body weight 83.9 kg [facility] 02-22-2023 21:06-0400 Body height 157.48 cm [facility] 02-22-2023 21:06-0400 Body temperature 97.8 [degF] [facility] 11-22-2022 08:26-0400 Body temperature 95.3 [degF] [facility] 11-22-2022 08:26-0400 Diastolic blood pressure 93 mm[Hg] [facility] 11-22-2022 08:26-0400 Heart rate 78 /min [facility] 11-22-2022 08:26-0400 Respiratory rate 16 /min [facility] 11-22-2022 08:26-0400 SaO2% (BldA) [Mass fraction] 99 % [facility] 11-22-2022 08:26-0400 Systolic blood pressure 145 mm[Hg] [facility] 06-27-2022 09:12-0500 Body weight 80.74 kg Silvia Vazquez ANGLEDOZER OPERATOR.SPRING REPAIRER HELPER HAND Work Phone: [facility] 06-27-2022 09:12-0500 Diastolic blood pressure 98 mm[Hg] Silvia Vazquez ANGLEDOZER OPERATOR.SPRING REPAIRER HELPER HAND Work Phone: [facility] 06-27-2022 09:12-0500 Heart rate 92 /min Silvia Goodwinhof ANGLEDOZER OPERATOR.SPRING REPAIRER HELPER HAND Work Phone: [facility] 06-27-2022 09:12-0500 Respiratory rate 20 /min Silvia Goodwinhojuan pablo ANGLEDOZER OPERATOR.SPRING REPAIRER HELPER HAND Work Phone: [facility] 06-27-2022 09:12-0500 SaO2% (BldA) [Mass fraction] 98 % Silvia Goodwinhof ANGLEDOZER OPERATOR.SPRING REPAIRER HELPER HAND Work Phone: [facility] 06-27-2022 09:12-0500 Systolic blood pressure 150 mm[Hg] Silvia Goodwinhojuan pablo ANGLEDOZER OPERATOR.SPRING REPAIRER HELPER HAND Work Phone: [facility] 04-05-2022 09:33-0400 Body weight 81.28 kg Deirdre Quiñones MD Work Phone: [facility] 04-05-2022 09:33-0400 Diastolic blood pressure 74 mm[Hg] Deirdre Quiñones MD Work Phone: [facility] 04-05-2022 09:33-0400 Heart rate 68 /min Deirdre Quiñones MD Work Phone: [facility] 04-05-2022 09:33-0400 Respiratory rate 16 /min Deirdre Quiñones MD Work Phone: [facility] 04-05-2022 09:33-0400 Systolic blood pressure 122 mm[Hg] Deirdre Quiñones MD Work Phone: [facility] 11-16-2021 12:45-0400 Body temperature 97.39 [degF] Maura Morillo APRN.SPRING REPAIRER HELPER HAND Work Phone: [facility] 11-16-2021 12:45-0400 Body weight 82.1 kg Maura Morillo APRN.SPRING REPAIRER HELPER HAND Work Phone: [facility] 11-16-2021 12:45-0400 Diastolic blood pressure 74 mm[Hg] Maura Morillo APRN.SPRING REPAIRER HELPER HAND Work Phone: [facility] 11-16-2021 12:45-0400 Heart rate 85 /min Maura Morillo APRN.SPRING REPAIRER HELPER HAND Work Phone: [facility] 11-16-2021 12:45-0400 Respiratory rate 21 /min Maura Morillo APRN.SPRING REPAIRER HELPER HAND Work Phone: [facility] 11-16-2021 12:45-0400 SaO2% (BldA) [Mass fraction] 97 % Maura Morillo APRN.SPRING REPAIRER HELPER HAND Work Phone: [facility] 11-16-2021 12:45-0400 Systolic blood pressure 124 mm[Hg] Maura Morillo APRN.SPRING REPAIRER HELPER HAND Work Phone: [facility] 09-26-2021 10:16-0400 Body height 157.5 cm Deirdre Quiñones MD Work Phone: [facility] 09-26-2021 10:16-0400 Body weight 81.92 kg Deirdre Quiñones MD Work Phone: [facility] 09-26-2021 10:16-0400 Diastolic blood pressure 70 mm[Hg] Deirdre Quiñones MD Work Phone: [facility] 09-26-2021 10:16-0400 Heart rate 66 /min Deirdre Quiñones MD Work Phone: [facility] 09-26-2021 10:16-0400 Respiratory rate 16 /min Deirdre Quiñones MD Work Phone: [facility] 09-26-2021 10:16-0400 Systolic blood pressure 124 mm[Hg] Deirdre Quiñones MD Work Phone: [facility] Encounters Encounter Date Encounter Type Care Provider Facility Start: 03-12-2025 End: 03-12-2025 Refill Deirdre Quiñones MD Work Phone: [facility] Comment on above: Refill Request Start: 01-19-2025 End: 01-19-2025 Refill Deirdre Quiñones MD Work Phone: [facility] [place] Comment on above: Refill Request Start: 12-09-2024 End: 12-09-2024 ambulatory Denise Edward RN Maintenance Representative Management Comment on above: Nurse Care Coordinat or Outreach Start: 12-09-2024 End: 12-09-2024 E-mail encounter from caregiver Denise Edward RN Maintenance Representative Management Start: 12-03-2024 End: 12-03-2024 ambulatory Deirdre Quiñones MD Work Phone: [facility] Start: 12-01-2024 End: 12-01-2024 Telephone encounter Deirdre Quiñones MD Work Phone: [facility] [place] Comment on above: Insurance Authorizat ion Start: 11-29-2024 End: 12-01-2024 Refill Jay Saravanan ANGLEDOZER OPERATOR.SPRING REPAIRER HELPER HAND Work Phone: [facility] [place] Comment on above: Refill Request Start: 11-20-2024 End: 11-20-2024 ambulatory Denise Edward RN Maintenance Representative Management Comment on above: Nurse Care Coordinat or Outreach Start: 11-20-2024 End: 11-20-2024 E-mail encounter from caregiver Denise Edward RN Maintenance Representative Management Start: 11-06-2024 End: 11-06-2024 ambulatory Denise Edward RN Maintenance Representative Management Comment on above: Nurse Care Coordinat or Outreach Start: 11-06-2024 End: 11-06-2024 E-mail encounter from caregiver Denise Edward RN Maintenance Representative Management Start: 10-23-2024 End: 10-23-2024 ambulatory Denise Edward RN Maintenance Representative Management Comment on above: Bi-Weekly Outreach ( Recurring) for Chronic Disease Management Start: 10-19-2024 End: 10-19-2024 Refill Jay Saravanan ANGLEDOZER OPERATOR.SPRING REPAIRER HELPER HAND Work Phone: [facility] [place] Comment on above: Refill Request Start: 10-14-2024 End: 11-11-2024 Telephone encounter [facility] Comment on above: New Primary Care Pha rmacy Appt. Start: 10-13-2024 End: 10-13-2024 ambulatory Mesfin Callahan [facility] Work Phone: Pharmacy Medicine Start: 10-13-2024 End: 10-13-2024 Coordination of care plan Mesfinsarah Callahan [facility] Work Phone: Pharmacy Medicine Comment on above: Care Coordination (R eferred to Pharmacy for Diabetes Management) Start: 10-12-2024 End: 10-12-2024 ambulatory Denise Edward RN Maintenance Representative Management Comment on above: Nurse Care Coordinat or Outreach Start: 10-12-2024 End: 10-12-2024 E-mail encounter from caregiver Denise Edward RN Maintenance Representative Management Start: 09-25-2024 End: 09-25-2024 Refill Deirdre Quiñones MD Work Phone: Family [facility] [place] Comment on above: Refill Request Nurse Care Coordinat or Outreach Start: 09-24-2024 End: 09-24-2024 ambulatory Scarlett Stone MA [facility] [place] Start: 09-24-2024 End: 09-24-2024 Patient encounter procedure Scarlett Stone MA [facility] [place] Comment on above: Population Health Na vigation Outreach (jackelin dhaliwal) Start: 09-23-2024 End: 09-23-2024 Office outpatient visit 25 minutes Silvia Vazquez APRN.CNP Work Phone: [facility] Comment on above: Type 2 diabetes radha itus without complication, without long- term current use of insulin (HCC) (Primary Dx); Sciatica, right side; Hypothyroidism, unspecified type; Anxiety state; Asthma due to seasonal allergies; Mixed hyperlipidemia; Smoking Start: 09-23-2024 End: 09-23-2024 ambulatory [facility] Facility:[facility] Start: 09-21-2024 End: 09-21-2024 ambulatory [facility] Facility:[facility] Start: 09-11-2024 End: 09-11-2024 ambulatory Denise Edward RN Maintenance Representative Management Comment on above: CDM (Enrollment outr each) Initial enrollment outreach for Chronic Disease Management Start: 08-21-2024 End: 08-21-2024 ambulatory Bonnie Tucker MA [facility] [place] Start: 08-21-2024 End: 08-21-2024 Patient encounter procedure Bonnie Tucker MA [employer] Comment on above: Population Health Na vigation Outreach ([employer] High Risk - Attempt 1) Start: 07-21-2024 End: 07-22-2024 Refill Deirdre Quiñones MD Work Phone: [facility] [place] Comment on above: Refill Request Start: 06-17-2024 End: 06-17-2024 ambulatory SILVIA YOUSIFE TAYLOR Facility:[facility] Start: 06-17-2024 End: 06-17-2024 Patient encounter procedure Silvia Vazquez APRN.SPRING REPAIRER HELPER HAND Work Phone: [facility] [place] Comment on above: Medicare annual well ness visit, subsequent (Primary Dx); Sciatica, right side; Acute pain of left knee; Type 2 diabetes mellitus without complication, without long-term current use of insulin (HCC); Hypothyroidism, unspecified type; Asthma due to seasonal allergies; Anxiety state; Smoking; Screening for depression Start: 06-16-2024 End: 06-16-2024 ambulatory DEIRDRE QUIÑONES Facility:[facility] Start: 05-18-2024 End: 05-18-2024 Refill Jay Tran APRN.SPRING REPAIRER HELPER HAND Work Phone: [facility] [place] Comment on above: Refill Request Start: 04-24-2024 End: 04-24-2024 Refill Deirdre Quiñones MD Work Phone: [facility] [place] Comment on above: Refill Request Start: 04-20-2024 End: 04-20-2024 Refill Silvia Vazquez APRN.SPRING REPAIRER HELPER HAND Work Phone: [facility] [place] Comment on above: Refill Request Start: 01-17-2024 Refill Deirdre stephen MD Work Phone: [facility] [place] Comment on above: Refill Request Start: 10-22-2023 Refill Jay BOGGS RN.SPRING REPAIRER HELPER HAND Work Phone: [facility] [place] Comment on above: Refill Request Start: 04-29-2023 End: 04-29-2023 Patient encounter procedure Silvia Vazquez APRN.SPRING REPAIRER HELPER HAND Work Phone: [facility] Comment on above: Medicare annual well ness visit, initial (Primary Dx); Type 2 diabetes mellitus without complication, without long-term current use of insulin (HCC); Hypertension, unspecified type; Mixed hyperlipidemia; Anxiety state; Hypothyroidism, unspecified type; History of COVID-19 Start: 04-24-2023 Refill Deirdre stephen MD Work Phone: [facility] Comment on above: Refill Request Start: 04-22-2023 End: 04-22-2023 Patient encounter procedure Spencer Lopez APRN.SPRING REPAIRER HELPER HAND Work Phone: [facility] Comment on above: Closed fracture of o ne rib of left side, initial encounter (Primary Dx); Rib injury Start: 04-22-2023 End: 04-22-2023 Subsequent hospital visit by physician [facility] Work Phone: Radiology Comment on above: Rib injury [S29.9XXA ] Start: 04-19-2023 End: 04-19-2023 Emergency department patient visit Dr. Deirdre Quiñones Work Phone: [facility] Work Phone: Start: 04-19-2023 End: 04-19-2023 Patient encounter procedure Maura Morillo APRN.SPRING REPAIRER HELPER HAND Work Phone: [facility] Comment on above: Chest tightness (Helene josie Dx) Start: 04-19-2023 ambulatory Yolis Camarillo RN [facility] Start: 04-19-2023 Follow-up encounter Yolis meléndez RN NURSE HEEL ROOM SUPERVISOR Comment on above: Covid Positive; Foll ow Up For Start: 04-19-2023 Refill Jay BOGGS RN.SPRING REPAIRER HELPER HAND Work Phone: [facility] Comment on above: Refill Request Start: 04-18-2023 Telephone encounter Deirdre coulter MD Work Phone: [facility] Comment on above: Patient Update Start: 03-06-2023 End: 03-06-[address] Deirdre Quiñones Work Phone: [facility] Work Phone: Start: 02-22-2023 End: 02-23-2023 Emergency department patient visit Deirdre Radhadeangelo Facility:[facility] Start: 02-22-2023 End: 02-23-2023 Emergency department patient visit [facility] Work Phone: Start: 02-05-2023 ambulatory Sheree Blanca (Ps s) [facility] [place] Comment on above: Population Health Na vigation Outreach ([employer] Low [facility]) Start: 01-21-2023 Refill Deirdre stephen MD Work Phone: [facility] [place] Comment on above: Refill Request Start: 01-21-2023 Refill Silvia Vazquez APRN.SPRING REPAIRER HELPER HAND Work Phone: [facility] [place] Comment on above: Refill Request Start: 12-11-2022 ambulatory Sheree Blanca (Ps s) [facility] [facility] [place] Comment on above: Population Health Na vigation Outreach ([employer] Low [facility]) Start: 12-04-2022 Telephone encounter Deirdre coulter MD Work Phone: [facility] [place] Comment on above: Medication Problem Start: 11-22-2022 End: 11-22-2022 Subsequent hospital visit by physician Xr [facility] Work Phone: Radiology Comment on above: Acute hip pain, righ t [M25.551] Start: 11-22-2022 End: 11-22-2022 Emergency department patient visit Say Mauricio Facility:[facility] Start: 11-22-2022 End: 11-22-2022 Emergency department patient visit [facility] Work Phone: Start: 11-02-2022 Refill Jay BOGGS RN.SPRING REPAIRER HELPER HAND Work Phone: [facility] [place] Comment on above: Refill Request Start: 10-21-2022 Refill Deirdre stephen MD Work Phone: [facility] [place] Comment on above: Refill Request Start: 10-21-2022 Refill Jay BOGGS RN.SPRING REPAIRER HELPER HAND Work Phone: [facility] Comment on above: Refill Request Start: 10-04-2022 Telephone encounter Deirdre coulter MD Work Phone: [facility] Comment on above: Trulicity PA Start: 09-25-2022 Refill Jay BOGGS RN.SPRING REPAIRER HELPER HAND Work Phone: [facility] Comment on above: Refill Request Start: 09-24-2022 Telephone encounter Deirdre coulter MD Work Phone: [facility] Comment on above: handicap placard req uest Start: 09-17-2022 Refill Jay BOGGS RN.SPRING REPAIRER HELPER HAND Work Phone: [facility] Comment on above: Refill Request Start: 08-30-2022 Refill Silvia Vazquez APRN.SPRING REPAIRER HELPER HAND Work Phone: [facility] [place] Comment on above: Refill Request Start: 08-16-2022 Telephone encounter Deirdre coulter MD Work Phone: [facility] Comment on above: Results; Patient Upd ate; Patient Question Start: 08-15-2022 End: 08-15-2022 ambulatory [facility] Facility:[facility] Start: 08-11-2022 End: 08-11-2022 ambulatory [facility] Facility:[facility] Start: 08-01-2022 Telephone encounter Deirdre coulter MD Work Phone: [facility] Comment on above: Insurance Authorizat ion (Trulicity ) Start: 07-26-2022 Refill Deirdre stephen MD Work Phone: [facility] Comment on above: Refill Request Start: 07-23-2022 End: 07-23-2022 Refill Deirdre Quiñones MD Work Phone: [facility] Comment on above: Refill Request Start: 07-05-2022 End: 07-05-2022 Subsequent hospital visit by physician Xr [facility] [place] Work Phone: Radiology Comment on above: Hip pain [M25.559] Start: 07-04-2022 Telephone encounter Deirdre coulter MD Work Phone: [facility] [place] Comment on above: Patient Update Start: 06-27-2022 End: 06-27-2022 Patient encounter procedure Silvia Taylor LEUNG.SPRING REPAIRER HELPER HAND Work Phone: [facility] [place] Comment on above: Sciatica, right side (Primary Dx) Start: 06-20-2022 Refill Deirdre stephen MD Work Phone: [facility] [place] Comment on above: Refill Request Start: 06-02-2022 Refill Jay BOGGS RN.[facility] Work Phone: [facility] [place] Comment on above: Refill Request Start: 05-21-2022 Refill Deirdre stephen MD Work Phone: [facility] [place] Comment on above: Refill Request Start: 05-03-2022 Refill Deirdre stephen MD Work Phone: [facility] [place] Comment on above: Refill Request Trulicity Start: 04-21-2022 Refill Jay BOGGS RN.[facility] Work Phone: [facility] [place] Comment on above: Refill Request Start: 04-19-2022 Refill Jay BOGGS RN.[facility] Work Phone: [facility] [place] Comment on above: Refill Request Start: 04-05-2022 End: 04-05-2022 Patient encounter procedure Deirdre Quiñones MD Work Phone: [facility] [place] Comment on above: Uncontrolled type 2 diabetes mellitus with hyperglycemia (HCC) (Primary Dx); Mixed hyperlipidemia; Hypertension, unspecified type; Anxiety state; Fall, initial encounter; Hypothyroidism, unspecified type; Arthritis of both hands Start: 03-23-2022 Refill Deirdre stephen MD Work Phone: [facility] [place] Comment on above: Refill Request Start: 03-20-2022 Refill Jay Saravanan AP RN.SPRING REPAIRER HELPER HAND Work Phone: [facility] [place] Comment on above: Refill Request Start: 01-17-2022 Refill Deirdre stephen MD Work Phone: [facility] [place] Comment on above: Refill Request Start: 12-11-2021 Telephone encounter Silvia gaston APRN.SPRING REPAIRER HELPER HAND Work Phone: [facility] [place] Comment on above: Results Start: 11-24-2021 Telephone encounter Sami Sales MD Work Phone: [facility] [place] Comment on above: Medication Problem Start: 11-23-2021 Telephone encounter Sami Sales MD Work Phone: [facility] [place] Comment on above: Results Start: 11-23-2021 End: 11-23-2021 Subsequent hospital visit by physician Maranda [facility] [place] Work Phone: Radiology Comment on above: Viral URI with cough [J06.9] Start: 11-16-2021 End: 11-16-2021 Patient encounter procedure Maura Morillo APRN.SPRING REPAIRER HELPER HAND Work Phone: [facility] Comment on above: Congestion of nasal sinus (Primary Dx) Start: 11-14-2021 Telephone encounter Deirdre coulter MD Work Phone: [facility] [place] Comment on above: Patient Question; Pa tient Update Start: 10-20-2021 Refill Deirdre stephen MD Work Phone: [facility] [place] Comment on above: Refill Request Start: 09-29-2021 Telephone encounter Deirdre coulter MD Work Phone: Family [facility] [place] Comment on above: Results Start: 09-26-2021 End: 09-26-2021 Patient encounter procedure Deirdre Quiñones MD Work Phone: [facility] [place] Comment on above: Type 2 [...] 06-17-2024 Adult depression screening assessment Silvia Vazquez APRN.SPRING REPAIRER HELPER HAND Work Phone: Start: 04-22-2023 Radex ribs uni w/posteroant ch minimum 3 views Spencer Lopez ANGLEDOZER OPERATOR.SPRING REPAIRER HELPER HAND Work Phone: Start: 02-22-2023 Plain x-ray of pelvi s and lower extremity Start: 11-22-2022 Radex hip unilateral with pelvis 2-3 views David Alexis MD Work Phone: Start: 07-05-2022 Radex hips bilateral with pelvis minimum 5 views Silvia Vazquez ANGLEDOZER OPERATOR.SPRING REPAIRER HELPER HAND Work Phone: Start: 11-23-2021 Radiologic exam ches t 2 views Tahir Sales MD Work Phone: Start: 09-26-2021 Adult depression screening assessment Deirdre Quiñones MD Work Phone: Start: 05-11-2021 Antibody screen Comment on above: Order Comment: Speci men Type: BLOOD SPECIMEN Performed By: #### T SCR #### [facility] CLIA [id number] [address] Plan of Treatment Date Care Activity Detail Author Start: 02-09-2035 Urine microalbumin profile DTaP,Tdap,Td Vaccine (3 - Td or Tdap) [facility] Start: 09-23-2025 Annual PCP Team Assistant Plant Manager gilson Disease Visit Annual PCP Team Chronic Disease Visit [facility] Start: 09-23-2025 BP Controlled (<130/80) BP Controlle d (<130/80) [facility] Start: 09-21-2025 Glaucoma screening Dilated Retinal E xam [facility] Start: 06-17-2025 Annual PCP Team Assistant Plant Manager gilson Disease Visit Annual PCP Team Chronic Disease Visit [facility] Start: 06-17-2025 BP Controlled (<130/80) BP Controlle d (<130/80) [facility] Start: 06-17-2025 Depression Screening Depression Scre ening [facility] Start: 06-16-2025 Hepatitis B surface antibody level LDL Cholesterol [facility] Start: 03-08-2025 Influenza vaccination Influenza Vacc ine (#1) [facility] [facility] Start: 12-24-2024 End: 03-25-2025 Comprehensive metabolic 2000 panel - Serum or Plasma COMPREHENSIVE METABOLIC PANEL Lab Routine Mixed hyperlipidemia Expected: 12/24/2024, Expires: 03/25/2025 [facility] Comment on above: Expected: 12/24/2024 , Expires: 03/25/2025 Start: 12-24-2024 End: 03-25-2025 Hemoglobin A1c in Blood HEMOGLOBIN A1C Lab Routine Type 2 diabetes mellitus without complication, without long-term current use of insulin (HCC) Expected: 12/24/2024, Expires: 03/25/2025 [facility] Work Phone: Comment on above: Expected: 12/24/2024 , Expires: 03/25/2025 Start: 12-24-2024 End: 03-25-2025 Lipid 1996 panel - Serum or Plasma LIPID PANEL, FASTING Lab Routine Mixed hyperlipidemia Expected: 12/24/2024, Expires: 03/25/2025 [facility] Comment on above: Expected: 12/24/2024 , Expires: 03/25/2025 Start: 12-22-2024 Hemoglobin A1c measurement HbA1C [facility] Start: 09-23-2024 End: 09-23-2024 Patient encounter procedure [facility] Comment on above: 3 month follow up 3 month follow up / UACR due Start: 09-15-2024 End: 12-15-2024 Comprehensive metabolic 2000 panel - Serum or Plasma COMPREHENSIVE METABOLIC PANEL Lab Routine Type 2 diabetes mellitus without complication, without long-term current use of insulin (HCC) Expected: 09/15/2024, Expires: 12/15/2024 [facility] Work Phone: Comment on above: Expected: 09/15/2024 , Expires: 12/15/2024 Start: 09-15-2024 End: 12-15-2024 Hemoglobin A1c in Blood HEMOGLOBIN A1C Lab Routine Type 2 diabetes mellitus without complication, without long-term current use of insulin (HCC) Expected: 09/15/2024, Expires: 12/15/2024 [facility] Comment on above: Expected: 09/15/2024 , Expires: 12/15/2024 Start: 09-14-2024 Hemoglobin A1c measurement HbA1C [facility] Start: 07-08-2024 Advance Directive Discussion Advance Directive Discussion [facility] Start: 07-08-2024 Medicare Advantage Annual Wellness Visit Medicare Advantage Annual Wellness Visit [facility] Start: 06-08-2024 End: 06-08-2024 Patient encounter procedure 06/08/2024 10:40 AM EST Office Visit [facility] [address] [facility] [place] [id number] Silvia Vazquez, ANGLEDOZER OPERATOR.SPRING REPAIRER HELPER HAND [address] [facility] [place] [id number] medicare wellnes [facility] Comment on above: medicare wellnes Start: 05-25-2024 Covid-19 Vaccine () Covid-19 Vaccine () [facility] Start: 05-18-2024 End: 08-17-2024 CBC W Auto Differential panel - Blood COMPLETE BLOOD COUNT AND DIFFERENTIAL Lab Routine Hypertension, unspecified type Hypothyroidism, unspecified type Expected: 05/18/2024, Expires: 08/17/2024 [facility] Comment on above: Expected: 05/18/2024 , Expires: 08/17/2024 Start: 05-18-2024 End: 08-17-2024 Comprehensive metabolic 2000 panel - Serum or Plasma COMPREHENSIVE METABOLIC PANEL Lab Routine Type 2 diabetes mellitus without complication, without long-term current use of insulin (HCC) Mixed hyperlipidemia Expected: 05/18/2024, Expires: 08/17/2024 [facility] Comment on above: Expected: 05/18/2024 , Expires: 08/17/2024 Start: 05-18-2024 End: 08-17-2024 Hemoglobin A1c in Blood HEMOGLOBIN A1C Lab Routine Type 2 diabetes mellitus without complication, without long-term current use of insulin (HCC) Expected: 05/18/2024, Expires: 08/17/2024 [facility] Comment on above: Expected: 05/18/2024 , Expires: 08/17/2024 Start: 05-18-2024 End: 08-17-2024 Lipid 1996 panel - Serum or Plasma LIPID PANEL BASIC Lab Routine Type 2 diabetes mellitus without complication, without long-term current use of insulin (HCC) Mixed hyperlipidemia Expected: 05/18/2024, Expires: 08/17/2024 [facility] Comment on above: Expected: 05/18/2024 , Expires: 08/17/2024 Start: 05-18-2024 End: 08-17-2024 TSH W/REFLEX FT4 TSH W/REFLEX FT4 Lab Routine Hypothyroidism, unspecified type Expected: 05/18/2024, Expires: 08/17/2024 [facility] Work Phone: Comment on above: Expected: 05/18/2024 , Expires: 08/17/2024 Start: 04-29-2024 Annual PCP Team Assistant Plant Manager gilson Disease Visit Annual PCP Team Chronic Disease Visit [facility] Start: 04-29-2024 BP Controlled (<130/80) BP Controlle d (<130/80) [facility] Start: 04-10-2024 Annual PCP Team Assistant Plant Manager gilson Disease Visit Annual PCP Team Chronic Disease Visit [facility] Start: 03-08-2024 Covid-19 Vaccine ( season) Covid-19 Vaccine () [facility] Start: 03-08-2024 Covid-19 Vaccine () Covid-19 Vaccine () [facility] Start: 03-08-2024 Influenza vaccination Influenza Vacc ine (#1) [facility] Start: 07-29-2023 Covid-19 Vaccine ( season) Covid-19 Vaccine () [facility] Start: 07-08-2023 Advance Directive Discussion Advance Directive Discussion [facility] Start: 07-08-2023 Behavioral Health Screening Behavioral Health Screening [facility] Start: 06-27-2023 ANNUAL PCP TEAM GIVER GILSON DISEASE VISIT ANNUAL PCP TEAM CHRONIC DISEASE VISIT [facility] Start: 04-30-2023 Glaucoma screening Dilated Retinal E xam [facility] Start: 04-30-2023 Hepatitis C antibody , confirmatory test DILATED RETINAL EXAM [facility] Start: 04-29-2023 End: 07-29-2023 ALBUMIN/CREAT RATIO RND UR ALBUMIN/CREAT RATIO RND UR Lab Routine Type 2 diabetes mellitus without complication, without long-term current use of insulin (HCC) Expected: 04/29/2023, Expires: 07/29/2023 [facility] Work Phone: Comment on above: Expected: 04/29/2023 , Expires: 07/29/2023 Start: 04-29-2023 End: 07-29-2023 Comprehensive metabolic 2000 panel - Serum or Plasma COMP METABOLIC PANEL Lab Routine Type 2 diabetes mellitus without complication, without long-term current use of insulin (HCC) Expected: 04/29/2023, Expires: 07/29/2023 [facility] Work Phone: Comment on above: Expected: 04/29/2023 , Expires: 07/29/2023 Start: 04-29-2023 End: 07-29-2023 Hemoglobin A1c in Blood HGB A1C Lab Routine Type 2 diabetes mellitus without complication, without long-term current use of insulin (HCC) Expected: 04/29/2023, Expires: 07/29/2023 [facility] Work Phone: Comment on above: Expected: 04/29/2023 , Expires: 07/29/2023 Start: 04-29-2023 End: 07-29-2023 Lipid 1996 panel - Serum or Plasma LIPID PANEL BASIC Lab Routine Mixed hyperlipidemia Expected: 04/29/2023, Expires: 07/29/2023 [facility] Work Phone: Comment on above: Expected: 04/29/2023 , Expires: 07/29/2023 Start: 04-19-2023 [facility] Start: 04-05-2023 ANNUAL PCP TEAM GIVER GILSON DISEASE VISIT ANNUAL PCP TEAM CHRONIC DISEASE VISIT [facility] Start: 04-05-2023 BP CONTROLLED (<130/80) BP CONTROLLE D (<130/80) [facility] Start: 04-05-2023 Hepatitis B surface antibody level LDL CHOLESTEROL [facility] Start: 03-08-2023 Influenza vaccination INFLUENZA (#1) [facility] Start: 03-06-2023 Patient referral [facility] Work Phone: Start: 12-11-2022 End: 02-10-2023 ALBUMIN/CREAT RATIO RND UR ALBUMIN/CREAT RATIO RND UR Lab Routine Uncontrolled type 2 diabetes mellitus with hyperglycemia (HCC) Expected: 12/11/2022, Expires: 02/10/2023 [facility] Work Phone: Comment on above: Expected: 12/11/2022 , Expires: 02/10/2023 Start: 12-11-2022 End: 02-10-2023 Comprehensive metabolic 2000 panel - Serum or Plasma COMP METABOLIC PANEL Lab Routine Uncontrolled type 2 diabetes mellitus with hyperglycemia (HCC) Mixed hyperlipidemia Expected: 12/11/2022, Expires: 02/10/2023 [facility] Work Phone: Comment on above: Expected: 12/11/2022 , Expires: 02/10/2023 Start: 12-11-2022 End: 02-10-2023 Hemoglobin A1c in Blood HGB A1C Lab Routine Uncontrolled type 2 diabetes mellitus with hyperglycemia (HCC) Expected: 12/11/2022, Expires: 02/10/2023 [facility] Work Phone: Comment on above: Expected: 12/11/2022 , Expires: 02/10/2023 Start: 12-11-2022 End: 02-10-2023 Lipid 1996 panel - Serum or Plasma LIPID PANEL BASIC Lab Routine Uncontrolled type 2 diabetes mellitus with hyperglycemia (HCC) Mixed hyperlipidemia Expected: 12/11/2022, Expires: 02/10/2023 [facility] Work Phone: Comment on above: Expected: 12/11/2022 , Expires: 02/10/2023 Start: 11-30-2022 COVID-19 VACCINE (6 - Pfizer series) COVID-19 VACCINE (6 - Pfizer series) [facility] Start: 11-23-2022 ANNUAL PCP TEAM GIVER GILSON DISEASE VISIT ANNUAL PCP TEAM CHRONIC DISEASE VISIT [facility] Start: 11-16-2022 BP CONTROLLED (<130/80) BP CONTROLLE D (<130/80) [facility] Start: 11-12-2022 Hemoglobin A1c measurement HbA1C [facility] Start: 05-08-2023 Hemoglobin A1c/Hemoglobin.total in Blood HBA1C [facility] Start: 09-26-2022 Adult depression screening assessment DEPRESSION SCREENING [facility] Start: 09-26-2022 ANNUAL PCP TEAM GIVER GILSON DISEASE VISIT ANNUAL PCP TEAM CHRONIC DISEASE VISIT [facility] Start: 09-26-2022 BP CONTROLLED (<130/80) BP CONTROLLE D (<130/80) [facility] Start: 09-26-2022 Hepatitis B screening URINE AL BUMIN:CREATININE RATIO [facility] Start: 09-26-2022 Hepatitis B surface antibody level LDL CHOLESTEROL [facility] Start: 09-26-2022 [facility] from 10/24 (Declined at this time) Start: 07-08-2022 ADVANCE DIRECTIVE DISCUSSION ADVANCE DIRECTIVE DISCUSSION [facility] Start: 07-08-2022 DEPRESSION ASSESSMENT DEPRESSION ASS ESSMENT [facility] Start: 07-05-2022 End: 09-04-2022 Comprehensive metabolic 2000 panel - Serum or Plasma COMP METABOLIC PANEL Lab Routine Mixed hyperlipidemia Uncontrolled type 2 diabetes mellitus with hyperglycemia (HCC) Expected: 07/05/2022 (Approximate), Expires: 09/04/2022 [facility] Work Phone: Comment on above: Expected: 07/05/2022 (Approximate), Expires: 09/04/2022 Start: 07-05-2022 End: 09-04-2022 Hemoglobin A1c in Blood HGB A1C Lab Routine Uncontrolled type 2 diabetes mellitus with hyperglycemia (HCC) Expected: 07/05/2022 (Approximate), Expires: 09/04/2022 [facility] Work Phone: Comment on above: Expected: 07/05/2022 (Approximate), Expires: 09/04/2022 Start: 07-05-2022 Hemoglobin A1c/Hemoglobin.total in Blood HBA1C [facility] Start: 04-16-2022 COVID-19 VACCINE (5 - Booster for Pfizer series) COVID-19 VACCINE (5 - Booster for Pfizer series) [facility] Start: 03-29-2022 End: 05-29-2022 Comprehensive metabolic 2000 panel - Serum or Plasma COMP METABOLIC PANEL Lab Routine Mixed hyperlipidemia Hypertension, unspecified type Type 2 diabetes mellitus without complication, without long-term current use of insulin (HCC) Expected: 03/29/2022 (Approximate), Expires: 05/29/2022 [facility] Work Phone: Comment on above: Expected: 03/29/2022 (Approximate), Expires: 05/29/2022 Start: 03-29-2022 End: 05-29-2022 Hemoglobin A1c/Hemoglobin.total in Blood HGB A1C Lab Routine Type 2 diabetes mellitus without complication, without long-term current use of insulin (HCC) Expected: 03/29/2022 (Approximate), Expires: 05/29/2022 [facility] Work Phone: Comment on above: Expected: 03/29/2022 (Approximate), Expires: 05/29/2022 Start: 03-29-2022 End: 05-29-2022 LIPID PANEL BASIC LIPID PANEL BASIC Lab Routine Mixed hyperlipidemia Hypertension, unspecified type Type 2 diabetes mellitus without complication, without long-term current use of insulin (HCC) Expected: 03/29/2022 (Approximate), Expires: 05/29/2022 [facility] Work Phone: Comment on above: Expected: 03/29/2022 (Approximate), Expires: 05/29/2022 Start: 03-29-2022 End: 05-29-2022 Thyrotropin [Units/volume] in Serum or Plasma TSH BLD Lab Routine Hypothyroidism, unspecified type Expected: 03/29/2022 (Approximate), Expires: 05/29/2022 [facility] Work Phone: Comment on above: Expected: 03/29/2022 (Approximate), Expires: 05/29/2022 Start: 03-08-2022 Influenza vaccination INFLUENZA (#1) [facility] Start: 12-27-2021 Hemoglobin A1c/Hemoglobin.total in Blood HBA1C [facility] Start: 08-09-2021 COVID-19 VACCINE (4 - Booster for Pfizer series) COVID-19 VACCINE (4 - Booster for Pfizer series) [facility] Start: 07-08-2021 DEPRESSION ASSESSMENT DEPRESSION ASS ESSMENT [facility] Start: 08-25-2020 3 comp foot exam completed DIABETIC FOOT EXAM [facility] Start: 08-25-2020 Diabetic foot examination Diabetic Foot Exam [facility] Start: 10-24-2018 RSV Vaccine (1 - 1-d ose 75+ series) RSV Vaccine (1 - 1-dose 75+ series) [facility] Start: 02-26-2017 Urine microalbumin profile [facility] Start: 04-07-2016 Hepatitis C antibody , confirmatory test DILATED RETINAL EXAM [facility] Start: 2003 Hepatitis B Vaccine (1 of 3 - Risk 3-dose series) Hepatitis B Vaccine (1 of 3 - Risk 3-dose series) [facility] Start: 2003 RSV Vaccine (1 - 1-d ose 60+ series) RSV Vaccine (1 - 1-dose 60+ series) [facility] Start: 10-24-1961 BP CONTROLLED (<130/80) BP CONTROLLE D (<130/80) [facility] Start: 10-24-1961 Depression Screening Depression Scre ening [facility] Start: 10-24-1961 HEPATITIS C SCREENING HEPATITIS C SC REENING [facility] Start: 10-24-1961 Spirometry Spirometry [facility] Patient Education [facility] Work Phone: Patient referral [facility] Work Phone: [facility] Immunizations Immunization Date Immunization Notes Care Provider Zane pastor 02-09-2025 influenza, high dose seasonal, preservative-free Deirdre Quiñones MD Work Phone: [facility] 02-09-2025 tetanus toxoid, redu regis diphtheria toxoid, and acellular pertussis vaccine, adsorbed Deirdre Quiñones MD Work Phone: [facility] 03-30-2024 COVID-19 original vaccine, age 12+ yr, monovalent (PFIZER-BIONTLiquidCompass - DAWSON TOP) Silvia Vazquez APRN.SPRING REPAIRER HELPER HAND Work Phone: [facility] 03-30-2024 influenza (HD-IIV4) vaccine, age 65+ yr, high dose, quadrivalent, PF (FLUZONE HIGH-DOSE) Silvia Vazquez APRN.SPRING REPAIRER HELPER HAND Work Phone: [facility] 03-30-2024 respiratory syncytia l virus (RSV) vaccine, adjuvanted (AREXVY) Silvia Vazquez ANGLEDOZER OPERATOR.SPRING REPAIRER HELPER HAND Work Phone: [facility] 03-30-2024 influenza virus vacc ine, unspecified formulation Deirdre Quiñones MD Work Phone: [facility] 03-29-2023 influenza virus vacc ine, unspecified formulation Deirdre Quiñones MD Work Phone: [facility] 08-02-2022 COVID-19 booster vaccine, age 12+ yr, bivalent (PFIZER-BIONTECH) Deirdre Quiñones MD Work Phone: [facility] 04-02-2022 influenza (aIIV4) vaccine, age 65+ yr, quadrivalent, PF (FLUAD QUADRIVALENT) Deirdre Quiñones MD Work Phone: [facility] 02-19-2022 COVID-19 vaccine, ag e 12+ yr (PFIZER-BIONTECH - DAWSON TOP) Jay Tran ANGLEDOZER OPERATOR.SPRING REPAIRER HELPER HAND Work Phone: [facility] 09-07-2020 COVID-19 vaccine, ag e 12+ yr (PFIZER-BIONTECH - PURPLE TOP) Deirdre Quiñones MD Work Phone: [facility] 08-16-2020 COVID-19 vaccine, ag e 12+ yr (PFIZER-BIONTECH - PURPLE TOP) Deirdre Quiñones MD Work Phone: [facility] 04-20-2020 influenza (aIIV4) vaccine, age 65+ yr, quadrivalent, PF (FLUAD QUADRIVALENT) Deirdre Quiñones MD Work Phone: [facility] 04-20-2020 influenza, seasonal, injectable Deirdre Quiñones MD Work Phone: [facility] 04-20-2020 zoster vaccine recombinant Deirdre Quiñones MD Work Phone: [facility] 03-31-2019 influenza, high dose seasonal, preservative-free Deirdre Quiñones MD Work Phone: [facility] 03-25-2019 zoster vaccine recombinant Deirdre Quiñones MD Work Phone: [facility] 04-05-2018 influenza, high dose seasonal, preservative-free Deirdre Quiñones MD Work Phone: [facility] 04-22-2017 influenza, injectabl e, quadrivalent, contains preservative Deirdre Quiñones MD Work Phone: [facility] Work Phone: 04-07-2015 influenza, seasonal, injectable Deirdre Quiñones MD Work Phone: [facility] 03-08-2015 zoster vaccine, live Deirdre fischer MD Work Phone: [facility] 11-10-2014 pneumococcal conjuga te vaccine, 13 valent Deirdre Quiñones MD Work Phone: [facility] 05-13-2014 influenza, seasonal, injectable Deirdre Quiñones MD Work Phone: [facility] 04-08-2013 influenza virus vacc ine, unspecified formulation Deirdre Quiñones MD Work Phone: [facility] 06-20-2010 influenza virus vacc ine, unspecified formulation Deirdre Quiñones MD Work Phone: [facility] 06-20-2010 pneumococcal polysaccharide vaccine, 23 valent Deirdre Quiñones MD Work Phone: [facility] 05-17-2009 novel influenza-H1N1 -09, all formulations Deirdre Quiñones MD Work Phone: [facility] 05-13-2009 influenza virus vacc ine, unspecified formulation Deirdre Quiñones MD Work Phone: [facility] 05-13-2008 influenza virus vacc ine, unspecified formulation Deirdre Quiñones MD Work Phone: [facility] Work Phone: 06-27-2007 influenza virus vacc ine, unspecified formulation Deirdre Quiñones MD Work Phone: [facility] 02-26-2007 tetanus toxoid, redu regis diphtheria toxoid, and acellular pertussis vaccine, adsorbed Deirdre Quiñones MD Work Phone: [facility] Work Phone: 05-24-2006 influenza virus vacc ine, unspecified formulation Deirdre Quiñones MD Work Phone: [facility] Payers Date Payer Category Payer Medicare (Managed Care) [employer]US [id number] 2022 Private Health Insurance [id number] 2022 Self-pay [id number] 2021 Medicare HUMANA MEDICARE [employer] GOLD PLUS [id number] 2021-Present [phone] [place] [id number] [facility] [id number] 2021 Medicare [id number] Private Health Insurance [employer] [facility] [id number] Unknown [id number] Unknown [id number] Unknown [id number] Unknown [id number] Unknown [id number] Unknown [id number] Social History Date Type Detail Facility Start: 05-19-2018 End: 06-17-2024 Tobacco smoking status NHIS Smokes tobacco daily [facility] History of tobacco use Cigarette Smoker C [facility] Work Phone: Start: 09-26-2021 End: 09-23-2024 Alcohol intake Current drinker of alcohol (finding) [facility] Start: 09-14-2020 End: 06-26-2022 History SDOH Alcohol Frequency 2 [facility] Start: 09-14-2020 End: 06-26-2022 History SDOH Alcohol Std Drinks 1 [facility] Start: 07-02-2007 History SDOH Alcohol Comment occasionally, 2 mixed drinks per month [facility] Start: 09-14-2020 End: 06-26-2022 History SDOH Social Connections Phone 5 [facility] Start: 09-14-2020 End: 06-26-2022 History SDOH Social Connections Sabianist 3 [facility] Start: 09-14-2020 End: 06-26-2022 History SDOH Financial 4 [facility] Start: 09-14-2020 Education 18 [facility] Start: 05-19-2018 End: 04-05-2022 Tobacco Comment Smoking 3 cigarettes per day [facility] Start: 1945 Sex Assigned At Not on file [facility] Start: 09-16-2021 End: 04-05-2022 Exposure to SARS-CoV-2 (event) Not sure [facility] Start: 11-22-2021 History SDOH Alcohol Std Drinks 98 [facility] Start: 05-19-2018 End: 04-29-2023 Cigarettes smoked current (pack per day) - Reported 0.3 [facility] Start: 05-19-2018 End: 06-17-2024 Tobacco use and exposure Smokeless tobacco non-user [facility] Start: 06-26-2022 History SDOH Alcohol Std Drinks 0 [facility] Start: 06-26-2022 End: 04-29-2023 Social connection and isolation panel [facility] Do you belong to any clubs or organizations such as nondenominational groups, unions, fraternal or athletic groups, or school groups? Yes [facility] Are you now , , , , never or living with a partner? [facility] Start: 06-08-2012 Frequency of Alcohol Consumption Not on file [facility] How often do you hav e 6 or more drinks on 1 occasion? Never [facility] How hard is it for y ou to pay for the very basics like food, housing, medical care, and heating Not very hard [facility] Do you feel stress - tense, restless, nervous, or anxious, or unable to sleep at night because your mind is troubled all the time - these days [OSQ] Only a little [facility] (I/We) worried jocelyne er (my/our) food would run out before (I/we) got money to buy more. Never true [facility] In the past 12 month s, was there a time when you were not able to pay the mortgage or rent on time? No [facility] Start: 02-22-2023 End: 04-19-2023 Tobacco smoking status NHIS Unknown if ever smoked [facility] Start: 1945 Sex Assigned At Female W [facility] How often to you hav e a drink containing alcohol? Monthly or less [facility] Functional Status Date Assessment Result Facility 05-13-2021 Are you deaf, or do you have serious difficulty hearing No 05/13/2021 11:32 AM Dalia Grimes, NURYS No [facility] 05-13-2021 Are you blind, or do you have serious difficulty seeing, even when wearing glasses No 05/13/2021 11:32 AM Dalia Grimes, NURYS No [facility] 05-13-2021 Do you have serious difficulty walking or climbing stairs No 05/13/2021 11:32 AM Dalia Grimes, RN No [facility] 05-13-2021 Do you have difficul ty dressing or bathing No 05/13/2021 11:32 AM Dalia Grimes, RN No [facility] 05-13-2021 Because of a physica l, mental, or emotional condition, do you have difficulty doing errands alone such as visiting a physician's office or shopping No 05/13/2021 11:32 AM EDT Dalia Gallardo RN No [facility] Mental Status Date Assessment Result Facility 05-13-2021 Because of a physica l, mental, or emotional condition, do you have serious difficulty concentrating, remembering, or making decisions No 05/13/2021 11:32 AM EDT Dalia Gallardo RN No [facility] Clinical Notes 05-13-2014 to 03-12-2025 Telephone [...] once daily. Jay Tran APRN.CNP [facility] 03-12-2025 Miscellaneous Notes The following approved [...] 1 tablet by mouth once daily. [facility] March 12, 2025 9:09 AM documented in this encounter [facility] 03-12-2025 Telephone encounter Note Prescription Refill [...] 1 tablet by mouth once daily. [facility] March 12, 2025 9:09 AM [facility] 01-19-2025 Telephone encounter Note Approved. [facility] website checked and validated. All [...] Authorizing Provider: JAY TRAN APRN.CNP [facility] [facility]25 Miscellaneous Notes Approved. PDMP website [...] AM documented in this encounter [facility] 01-19-2025 Telephone encounter Note Prescription Refill [...] January 19, 2025 10:40 AM [facility] 12-03-2024 Note HNO ID: [id number] Author: SILVIA HOGUE CPhT Service: ? Author Type: Clinical Laboratory Aides Teacher Type: Progress Notes Filed: 12/03/2024 13:19 Note Text: Patient is identified through a medication adherence outreach initiative based on pharmacy claims data from: [employer] Medication Adherence Category: Hypertension First Review Attribution [...] Hogue CPhT [facility] Based Care Pharmacy Team [facility] 12-03-2024 History of Present illness Narrative Patient is identified through a medication adherence outreach initiative based on pharmacy claims data from: [employer] Medication Adherence Category: Hypertension First Review Attribution [...] Team documented in this encounter [facility] 12-03-2024 Note Patient Outreach ([facility]) SHEREE CHAVEZ ([id number]) 1945 F Date Time Provider Department 12/03/24 DEIRDRE QUIÑONES During your visit today, we recorded the following information about you: Silvia Hogue CPhT 12/03/2024 1:19 PM Signed Patient is identified through a medication adherence outreach initiative based on pharmacy claims data from: [employer] Medication Adherence Category: Hypertension First Review Attribution [...] primary intervention? No intervention Silvia Hogue CPhT [facility] Pharmacy Team Allergies As of Date: 12/03/2024 [...] Encounter Status:Closed by SILVIA HOGUE on 12/03/24 [facility] 12-01-2024 Telephone encounter Note Images from the original note were not included. Electronic PA rec'd and completed for ozempic ANNY. This was completed and approved. Prior authorization approved Payer: [employer] PBM Part D [phone] Note from payer: Request Reference Number: [id number]. OZEMPIC INJ 2MG/3ML is approved through 07/07/2025. Your patient may now fill this prescription and it will be covered. Approval Details Authorization number: [id number] Authorized from December 01, 2024 to July [...] to its destination. To be filled at: [id number] [place] [address] - [address] [phone] Pt notified via my chart. [facility] 12-01-2024 Miscellaneous Notes Images from the original note were not included. Electronic PA rec'd and completed for ozempic ANNY. This was completed and approved. Prior authorization approved Payer: [employer] PBM Part D [phone] Note from payer: Request Reference Number: [id number]. OZEMPIC INJ 2MG/3ML is approved through 07/07/2025. Your patient may now fill this prescription and it will be covered. Approval Details Authorization number: [id number] Authorized from December 01, 2024 to July 07, 2025 Electronic appeal: Not supported View History Notes Time User Attachment Attachment received from payer. 12/01/2024 8:31 AM [facility], Rx Priorauth In Document Medication Being Authorized OZEMPIC 0.25 mg or 0.5 mg (2 mg/3 mL) pen Inject 0.5 mg subcutaneously one time a week. Dispense: 3 mL Refills: 2 ANNY Start: 12/01/2024 End: 03/01/2025 Class: Normal Diagnoses: Type 2 diabetes mellitus without complication, without long-term current use of insulin (HCC) This order has been released to its destination. To be filled at: [id number] [place] [address] - [address] [phone] Pt notified via my chart. documented in this encounter [facility] 12-01-2024 Telephone encounter Note The following approved medication requests have been transmitted electronically. Requested Prescriptions Pending Prescriptions Disp Refills OZEMPIC 0.25 mg or 0.5 mg (2 mg/3 mL) pen 3 mL 2 Sig: Inject 0.5 mg subcutaneously one time a week. Jay Tran APRN.CNP [facility] 12-01-2024 Miscellaneous Notes The following approved [...] AM documented in this encounter [facility] 12-01-2024 Telephone encounter Note Prescription Refill [...] December 01, 2024 7:57 AM [facility] 11-02-2024 Note HNO ID: [id number] Author: ?, ?, ? Service: ? Author [...] Contacted: Unable or unnecessary to reach patient: [employer] message sent HCC related Navigation Signature: Suze Reid November 02, 2024 12:12 PM [facility] 11-02-2024 Note Patient Outreach ([facility]) SHEREE CHAVEZ ([id number]) 1945 F Date Time Provider Department 11/02/24 DEIRDRE QUIÑONES During your visit today, we recorded the following information about you: Suze Crawford 11/02/2024 12:13 PM Signed POPULATION HEALTH NAVIGATION OUTREACH Action/FYI Patient outreach for HCC gaps; KED. Pt is due for the rest of their KED labs. Idylishart sent to close gaps. Reason for Outreach Care Gap/HCC or Scheduling Wellness Visits Care Gaps due: KED Patient Contacted: Unable or unnecessary to reach patient: [employer] message sent HCC related Navigation Signature: Suze [...] Encounter Status:Closed by SUZE CRAWFORD on 11/02/24 [facility] 10-23-2024 Note HNO ID: [id number] Author: DENISE EDWARD RN Service: ? Author [...] - Bi-Weekly Outreach (Recurring) Disposition Based on facility rehab director, the following disposition is advised: No action needed Denise Edward RN October 23, 2024 5:01 PM [facility] 10-23-2024 History of Present illness Narrative Images [...] lab care gaps addressed 12/14/2024 10/23/2024 Denise Edwrad RN Complete/Scheduled General education provided (managing stress, [...] - Bi-Weekly Outreach (Recurring) Disposition Based on facility rehab director, the following disposition is advised: No action needed Denise Edward RN October 23, 2024 5:01 PM documented in this encounter [facility] 10-23-2024 Note Patient Outreach ([facility]) SHEREE CHAVEZ ([id number]) 1945 F Date Time Provider Department 10/23/24 [...] - Bi-Weekly Outreach (Recurring) Disposition Based on facility rehab director, the following disposition is advised: No action [...] 05/19/2018: Takes Multi-vitami (more content not included)... [facility] 10-19-2024 Telephone encounter Note OK to refill as ordered Deirdre Quiñones MD [facility] 10-19-2024 Miscellaneous Notes OK to refill [...] PM documented in this encounter [facility] 10-19-2024 Telephone encounter Note The patient [...] October 19, 2024 6:24 PM [facility] 10-16-2024 Telephone encounter Note Telephoned the patient to schedule a new Primary Care pharmacy appt. Left a message. Made two attempts to contact the patient. Patient was sent [employer] message. If the patient returns a call, an appt will be scheduled. Encounter routed to the clinical pharmacist. [facility] 10-16-2024 Miscellaneous Notes Telephoned the patient to schedule a new Primary Care pharmacy appt. Left a message. Made two attempts to contact the patient. Patient was sent [employer] message. If the patient returns a call, an appt will be scheduled. Encounter routed to the clinical pharmacist. Telephoned the patient to schedule a new Primary Care pharmacy appt. Left a message. documented in this encounter [facility] 10-14-2024 Telephone encounter Note Telephoned the patient to schedule a new Primary Care pharmacy appt. Left a message. [facility] 10-13-2024 History of Present illness Narrative [...] ANAYA documented in this encounter [facility] 10-13-2024 Note HNO ID: [id number] Author: MESFIN CALLAHAN RPh Service: ? Author [...] types. Thank you, Mesfin Callahan PharmD, ANAYA [facility] 10-13-2024 Note Patient Outreach (PM STOW) SHEREE CHAVEZ ([id number]) 1945 F Date Time Provider Department 10/13/24 [...] Fully Assessed Reason for Visit: Care Coordination [1661] Cmt: Referred to Pharmacy for Diabetes Management Primary Visit Diagnosis:Type 2 diabetes mellitus with other specified complication, without long-term current use of insulin (HCC) [E11.69] Order(s):CONSULT TO PHARMACY [005629] Order #: [id number]: 1 Prescriptions as of 10/13/2024 - fluticasone [...] Encounter Status:Closed by MESFIN CALLAHAN on 10/13/24 [facility] 09-25-2024 Telephone encounter Note The following approved [...] a week. Jay Tran APRN.CNP [facility] 09-25-2024 Miscellaneous Notes The following approved [...] the script that were sent to [facility] pharmacy should have been sent to [facility] and not [facility]. Script pended and correct pharmacy selected. documented in this encounter [facility] 09-25-2024 Telephone encounter Note Patient called stating that the script that were sent to [facility] pharmacy should have been sent to [facility] and not [facility]. Script pended and correct pharmacy selected. [facility] 09-24-2024 Note HNO ID: [id number] Author: SCARLETT STONE MA Service: ? Author Type: Tinter Photograph Type: Progress Notes Filed: 09/24/2024 14:22 Note [...] to reach patient: Unable to leave message [employer] message sent HCC related Navigation Signature: Scarlett Stone MA September 24, 2024 2:20 PM [facility] 09-24-2024 History of Present illness Narrative POPULATION [...] to reach patient: Unable to leave message [employer] message sent HCC related Navigation Signature: Scarlett Stone MA September 24, 2024 2:20 PM documented in this encounter [facility] 09-24-2024 Note Patient Outreach ([facility]) SHEREE CHAVEZ ([id number]) 1945 F Date Time Provider Department 09/24/24 [...] to reach patient: Unable to leave message [employer] message sent HCC related Navigation Signature: Scarlett [...] Encounter Status:Closed by SCARLETT STONE on 09/24/24 [facility] 09-23-2024 Instructions Silvia Vazquez APRN.CNP - 09/23/2024 9:35 AM EDT Get repeat fasting labs completed prior to next visit Increase Ozempic to 0.5 mg once weekly Continue with low carb diet, increase protein and vegetable intake May consider Dora or Dexcom, glucose monitor Follow up in 3 months or sooner as needed documented in this encounter [facility] 09-23-2024 History of Present illness Narrative [...] APRN.MANDY This note was partially generated using Teamly recognition system. Note was reviewed for accuracy. There may be minor misspellings or grammar miscues with [employer] voice recognition. documented in this encounter [facility] 09-23-2024 Note HNO ID: [id number] Author: SILVIA VAZQUEZ APRN.CNP Service: ? Author [...] Cigarettes Smokeless tobacco: (more content not included)... [facility] 09-11-2024 Note HNO ID: [id number] Author: DENISE EDWARD RN Service: ? Author [...] - Initial enrollment outreach Disposition Based on facility rehab director, the following disposition is advised: No action needed Denise Edward RN September 11, 2024 11:08 AM [facility] 09-11-2024 History of Present illness Narrative CDM [...] has the electric, gas, oil, or water [email or web address] threatened to shut off services in your home?: No Tobacco Use Patient reports that she has been smoking cigarettes. She has a 7.5 pack-year smoking history. She has never used smokeless tobacco. Interventions The following were addressed during this visit: - Initial enrollment outreach Disposition Based on facility rehab director, the following disposition is advised: No action needed Denise Edward RN September 11, 2024 11:08 AM documented in this encounter [facility] 09-11-2024 Note Patient Outreach ([facility]) SHEREE CHAVEZ ([id number]) 1945 F Date Time Provider Department 09/11/24 DENISE EDWARD [facility] During your visit today, we recorded the [...] In the past 12 months has the [employer], gas, oil, or water [email or web address] threatened to shut off services in your home?: No Tobacco Use Patient reports that she has been smoking cigarettes. She has a 7.5 pack-year smoking history. She has never used smokeless tobacco. Interventions The following were addressed during this visit: - Initial enrollment outreach Disposition Based on facility rehab director, the following disposition is advised: No action [...] wheezing/shortness of benjie (more content not included)... [facility] 08-26-2024 Note HNO ID: [id number] Author: BONNIE DIOP MA Service: ? Author Type: Tinter Photograph Type: Progress Notes Filed: 08/26/2024 08:25 Note [...] Tucker MA August 26, 2024 8:24 AM [facility] 08-21-2024 Note HNO ID: [id number] Author: BONNIE DIOP MA Service: ? Author Type: Tinter Photograph Type: Progress Notes Filed: 08/21/2024 11:36 Note [...] or unnecessary to reach patient: Left message [employer] message sent Navigation Signature: Bonnie Tucker MA August 21, 2024 11:25 AM [facility] 08-21-2024 History of Present illness Narrative POPULATION [...] or unnecessary to reach patient: Left message [employer] message sent Navigation Signature: Bonnie Tucker MA August 21, 2024 11:25 AM documented in this encounter [facility] 08-21-2024 Note Patient Outreach (ANTHONY TNAV) SHEREE CHAVEZ ([id number]) 1945 F Date Time Provider Department 08/21/24 [...] HEALTH NAVIGATION OUTREACH Action/FYI Patient replies via [employer] - has outside eye exam scheduled. Declines [...] Subdural hematoma ( (more content not included)... [facility] 07-22-2024 Telephone encounter Note [facility]. All prescriptions have [...] Authorizing Provider: JAY TRAN APRN.CNP [facility] 07-22-2024 Miscellaneous Notes Appro[facility]. [facility] and [facility]. All prescriptions have [...] AM documented in this encounter [facility] 07-22-2024 Telephone encounter Note Prescription Refill [...] July 22, 2024 7:18 AM [facility] 06-17-2024 Instructions Silvia Vazquez APRN.CNP - [...] review all the medicines you take, even ajtr-uer-pymbuer medicines. As you get older, the way [...] conditions. documented in this encounter [facility] 06-17-2024 History of Present illness Narrative [...] APRN.CNP This note was partially generated using Vantage[employer] voice recognition system. Note was reviewed for accuracy. There may be minor misspellings or grammar miscues with [employer] voice recognition. documented in this encounter [facility] 06-17-2024 Note HNO ID: [id number] Author: SILVIA VAZQUEZ APRN.CNP Service: ? Author [...] daily before benjie (more content not included)... [facility] 05-18-2024 Telephone encounter Note Left message that lab orders are in. Kamille Nova LPN [facility] 05-18-2024 Miscellaneous Notes Left message that [...] mouth once daily. Authorizing Provider: JAY TRAN APRN.SPRING REPAIRER HELPER HAND Prescription Refill Information The patient has been [...] AM documented in this encounter [facility] 05-18-2024 Telephone encounter Note Labs ordered Deirdre Quiñones MD [facility] 05-18-2024 Telephone encounter Note Spoke with pt and her Medicare Wellness apt has been booked for 06/08/24. Pt reports she will be due for fasting lab work. Please advise pt when fasting blood work is in. Orders pended, please review and add or delete. Kamille Nova LPN [facility] 05-18-2024 Telephone encounter Note Patient is due for a yearly visit. 90 days sent in. The following approved medication requests have been transmitted electronically. Requested Prescriptions Signed Prescriptions Disp Refills glimepiride (AMARYL) 4 mg tablet 90 tablet 0 Sig: Take 1 tablet by mouth once daily. Authorizing Provider: JAY TRAN APRN.SPRING REPAIRER HELPER HAND [facility] 05-18-2024 Telephone encounter Note Prescription Refill [...] May 18, 2024 11:59 AM [facility] 04-24-2024 Telephone encounter Note The patient [...] April 24, 2024 11:04 AM [facility] 04-24-2024 Miscellaneous Notes The patient has [...] AM documented in this encounter [facility] 04-20-2024 Telephone encounter Note OK to refill as ordered Deirdre Quiñones MD [facility] 04-20-2024 Miscellaneous Notes OK to refill [...] PM documented in this encounter [facility] 04-20-2024 Telephone encounter Note Prescription Refill [...] April 20, 2024 1:47 PM [facility] 01-17-2024 Telephone encounter Note The following [...] by Silvia Vazquez APRN.MANDY T [facility] 01-17-2024 Miscellaneous Notes The following approved [...] AM documented in this encounter [facility] 01-17-2024 Telephone encounter Note Gabapentin and Claritin requested in other refill request. Kourtney Kincaid MA [facility] 01-17-2024 Miscellaneous Notes Gabapentin and Claritin requested in other refill request. Kourtney Kincaid MA documented in this encounter [facility] 01-17-2024 Telephone encounter Note Xanax and lisinopril requested in other refill request. [facility] 01-17-2024 Miscellaneous Notes Xanax and lisinopril requested in other refill request. documented in this encounter [facility] 01-17-2024 Telephone encounter Note Prescription Refill [...] January 17, 2024 10:05 AM [facility] 10-22-2023 Miscellaneous Notes OK to refill as ordered Deirdre Quiñones MD documented in this encounter [facility] 10-22-2023 Miscellaneous Notes OK to refill [...] MA. documented in this encounter [facility] 04-29-2023 Instructions Silvia Vazquez APRN.MANDY - [...] results. documented in this encounter [facility] 04-29-2023 History of Present illness Narrative [...] Glaucoma screening - Lipid panel Silvia Vazquez APRN.SPRING REPAIRER HELPER HAND This is a 77 year old female [...] diet of 1000 mg/day for under 50, 6202-7026 mg/day for 50+ - Discussed need and [...] discussed and patient voices understanding. Silvia Vazquez APRN.SPRING REPAIRER HELPER HAND This note was partially generated using VantageILM voice recognition system. Note was reviewed for accuracy. There may be minor misspellings or grammar miscues with [employer] voice recognition. documented in this encounter [facility] 04-25-2023 Miscellaneous Notes Spoke with pt [...] RN. documented in this encounter [facility] 04-22-2023 History of Present illness Narrative [...] PM documented in this encounter [facility] 04-22-2023 History of Present illness Narrative [...] rib. Dictated by : MD Spencer NANCE APRN.SPRING REPAIRER HELPER HAND documented in this encounter [facility] 04-19-2023 History of Present illness Narrative [...] self. documented in this encounter [facility] 04-19-2023 Miscellaneous Notes Reason for Call: Still testing COVID positive, fatigue, sinus congestion, cough Outcome: See PCP within 4 hours. Advised Urgent/Express Care. Patient acknowledged understanding and stated she would go to [facility] tonight. Reason for Disposition MILD [...] a thermometer 7. RESPIRATORY STATUS: Hoarseness 8. QNGJET-LAIY-LIECM:Same as yesterday 9. HIGH RISK DISEASE: Diabetic [...] days. Protocols used: Coronavirus (COVID-19) Diagnosed or Iibxjhuca-OLTDK-PO Patient states she has shortness of breath on exertion. documented in this encounter [facility] 04-19-2023 Miscellaneous Notes OK to refill as ordered Deirdre Quiñones MD Last office visit: 04/10/23 F/u scheduled: none Last TSH done in Aug 2022. Kourtney Kincaid Ma documented in this encounter [facility] 04-18-2023 Miscellaneous Notes Message left notifying pt that medication was sent to pharmacy. Kourtney Kincaid Ma OK for Zpak as ordered Deirdre Quiñones MD Patient calls and states that she now thinks that she has a sinus infection. Patient asking if provider can send in a prescription for this? Patient's pharmacy is [facility]. Please review and advise, [place] Armando RN documented in this encounter [facility] 02-05-2023 History of Present illness Narrative POPULATION HEALTH NAVIGATION OUTREACH Action/FYI HCC Gaps Due; E11.65 - Uncontrolled type 2 diabetes mellitus with hyperglycemia (HCC) - [id number] Last Billed 04/05/2022
[employer] Care Gaps Due; Follow Up BP Controlled HGBA1C Urine Albumin Advance Directives Left message and sent My Chart Patient Identified by Name and : NO Outreach Outcome/Action Unable to reach patient: Left message [employer] message sent Did you use a PCP flex slot to schedule this appointment? N/A Reason for Outreach HCC or suspected condition Payer: Payor: [employer] MEDICARE / Plan: [employer] / Product Type: HMO / Care Gap [...] PM documented in this encounter [facility] 01-22-2023 Miscellaneous Notes Pt notified via [employer] that rx were refilled and she needs [...] Ma documented in this encounter [facility] 01-22-2023 Miscellaneous Notes The following approved medication requests have been transmitted electronically. Requested Prescriptions Pending Prescriptions Disp Refills loratadine (CLARITIN) 10 mg tablet [Pharmacy Med Name: LORATADINE 10 MG TABLET] 90 tablet 3 Sig: TAKE 1 TABLET BY MOUTH EVERY DAY Jay Tran APRN.CNP Last office visit: 06/27/22 F/u scheduled: none Kourtney Kincaid Ma documented in this encounter [facility] 01-22-2023 Miscellaneous Notes The following approved medication requests have been transmitted electronically. Requested Prescriptions Pending Prescriptions Disp Refills lisinopril (ZESTRIL) 10 mg tablet 90 tablet 3 Sig: Take 1 tablet by mouth once daily. Jay Tran APRN.CNP Last office visit: 06/27/22 F/u scheduled: none documented in this encounter [facility] 12-11-2022 History of Present illness Narrative POPULATION HEALTH NAVIGATION OUTREACH Action/FYI HCC Gaps Due; E11.65 - Uncontrolled type 2 diabetes mellitus with hyperglycemia (HCC) - [id number] Last Billed 04/05/2022
[employer] Care Gaps Due; [...] condition Payer: Payor: [employer] MEDICARE / Plan: [employer] / Product Type: HMO / Care Gap [...] AM documented in this encounter [facility] 12-06-2022 Miscellaneous Notes Pt notified. Kourtney [...] pcp, it's always a nurse or a Pneumatic Jack Operator that she has to communicate with and she is thinking about getting a new doctor. Patient is calling in stating that she went to [facility] trulicity rx and it normally cost $42 and today they wanted $198 for it. patients states that [facility] just told her the cost of the medication increased and to call her providers office. documented in this encounter [facility] 11-02-2022 Miscellaneous Notes The following approved medication requests have been transmitted electronically. Requested Prescriptions Pending Prescriptions Disp Refills dulaglutide (TRULICITY) 0.75 mg/0.5 mL pen injector 2 mL 5 Sig: Inject 0.75 mg subcutaneously one time a week. Jay Tran APRN.CNP documented in this encounter [facility] 10-22-2022 Miscellaneous Notes Approved. PDMP website [...] Ma documented in this encounter [facility] 10-22-2022 Miscellaneous Notes The following approved medication requests have been transmitted electronically. Requested Prescriptions Pending Prescriptions Disp Refills atorvastatin (LIPITOR) 10 mg tablet 90 tablet 3 Sig: Take 1 tablet by mouth once daily. Jay Tran APRN.CNP documented in this encounter [facility] 10-09-2022 Miscellaneous Notes Called [facility]idan and aware specific NDC code needed, pharmacist advised was figured out an ready for [facility] order pick[facility]. Patient was notified Mansi Green Ma [...] [employer] Company Name: [employer] [place] Phone number: [phone] Patient ID number: [id number] Pharmacy Name: [facility] Telephone number: [phone] documented in this encounter [facility] 09-25-2022 Miscellaneous Notes Letter taken to [...] advise documented in this encounter [facility] 09-17-2022 Miscellaneous Notes OK to refill as ordered Deirdre Quiñones MD documented in this encounter [facility] 08-30-2022 Miscellaneous Notes Spoke with patient. [...] LPN documented in this encounter [facility] 08-16-2022 Miscellaneous Notes Patient returned call [...] CMP to Dr Kumar's office fax # [phone] when they have resulted. Marcela Ross RN [...] over later. Fax # for Dr Kumar [phone]. Pt [address] Kumar has done an [...] advise. documented in this encounter [facility] 08-01-2022 Miscellaneous Notes Received PA for Tuan from [facility] but shows patient picked up today 08/01. Called and spoke to pharmacist at [facility] who verified no PA needed and went through. Mansi Green Ma documented in this encounter [facility] 07-26-2022 Miscellaneous Notes OK to refill [...] LPN documented in this encounter [facility] 07-26-2022 Miscellaneous Notes OK to refill as orderedDeirdre Quiñones MD Sent a [employer] message for pt to come in and [...] LPN documented in this encounter [facility] 07-23-2022 Miscellaneous Notes Approved PDMP website [...] Ma documented in this encounter [facility] 07-05-2022 History of Present illness Narrative [...] AM documented in this encounter [facility] 07-04-2022 Miscellaneous Notes Pt called and [...] you. documented in this encounter [facility] 06-27-2022 Instructions Silvia Vazquez APRN.MANDY - [...] needed. documented in this encounter [facility] 06-27-2022 History of Present illness Narrative [...] APRN.MANDY This note was partially generated using VantageILM voice recognition system. Note was reviewed for accuracy. There may be minor misspellings or grammar miscues with VantageILM voice recognition. documented in this encounter [facility] 06-20-2022 Miscellaneous Notes The following approved [...] Pss documented in this encounter [facility] 06-04-2022 Miscellaneous Notes The following approved [...] LPN documented in this encounter [facility] 05-21-2022 Miscellaneous Notes Last refilled on: xanax #60 with 2 refill on 04/23/22 to [facility]. Pt should have refills remaining. Pt notified via [employer]. Kourtney Kincaid Ma documented in this encounter [facility] 05-04-2022 Miscellaneous Notes The following approved medication requests have been transmitted electronically. Requested Prescriptions Pending Prescriptions Disp Refills dulaglutide (TRULICITY) 0.75 mg/0.5 mL pen injector 2 mL 0 Sig: Inject 0.75 mg subcutaneously one time a week. Inject dose once per week. Discard Pen After Jay Tran APRN.SPRING REPAIRER HELPER HAND Patient phones requesting refills as follows: Requested Prescriptions Pending Prescriptions Disp Refills dulaglutide (TRULICITY) 0.75 mg/0.5 mL pen injector 2 mL 0 Sig: Inject 0.75 mg subcutaneously one time a week. Inject dose once per week. Discard Pen After PATRICE-04/05/22 Labs-04/05/22 NOV-06/19/22 med filled 04/05/22 Please review and advise. Odalis Valentino LPN documented in this encounter [facility] 04-23-2022 Miscellaneous Notes OK to refill [...] LPN documented in this encounter [facility] 04-05-2022 History of Present illness Narrative [...] po every am. She has concerns about intermediate problems with taking Metformin for a long time, she questions if there are other alternatives, she does not want to be given it because drug companies want her to be on it. 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 She is interested in using injectable options, feels she is capable of giving herself an injection. Lipids: Denies any issues with current regimen of Lipitor 10 mg once daily. Neuro: Since her last visit pt fell at home in May hitting her head and was notified to go the ER by our office. Pt was admitted into [facility] on 05/11/21 with dx of subdural [...] Past Histories independently gathered by the clinical office support assistant and the remaining scribed note accurately describes [...] Ma documented in this encounter [facility] 03-23-2022 Miscellaneous Notes The following approved [...] Broussard documented in this encounter [facility] 03-20-2022 Miscellaneous Notes The following approved [...] pharmacy documented in this encounter [facility] 01-17-2022 Miscellaneous Notes Approved PDMP website [...] Pss documented in this encounter [facility] 12-11-2021 Miscellaneous Notes TC to pt. LM to call office, ask for triage nurse to get update for loratadine. Updated pt that there are refills on requested medication and to call there pharm. Odalis Valentino LPN documented in this encounter [facility] 11-25-2021 Miscellaneous Notes Patient returned call [...] request an antibiotic change. 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 Patient returned call for results of chest xray. Results XR CHEST 2V FRONTAL/LAT (Order [id number]) Patient Info Patient Name Sex Sheere Egan ([id number]) Female 1945 11/23/2021 12:27 PM - Radiology, [place] In Impression IMPRESSION: No acute radiographic abnormality. 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 Continue treatment as discussed in office. Went over results, notes from Dr Sales with understanding. documented in this encounter [facility] 11-23-2021 History of Present illness Narrative [...] PM documented in this encounter [facility] 11-21-2021 Miscellaneous Notes No specific recommendations [...] RN documented in this encounter [facility] 11-16-2021 History of Present illness Narrative [...] APRN.MANDY documented in this encounter [facility] 10-20-2021 Miscellaneous Notes Duplication. Pt notified. [...] Reid documented in this encounter [facility] 10-20-2021 Miscellaneous Notes The following approved [...] LPN documented in this encounter [facility] 09-29-2021 Miscellaneous Notes Patient notified of [...] MD documented in this encounter [facility] 09-26-2021 Nurse Note DM letter faxed to pt's Eye Doctor, Dr. Say Gonsalez at F#: [phone]. Radha Del Rosario Ma documented in this encounter [facility] 09-26-2021 Instructions Radha Del Rosario Ma - 09/26/2021 10:30 AM EDT Dizziness - Decrease blood pressure medication Lisinopril 20 mg daily to 10 mg. New prescription has been sent into pharmacy. documented in this encounter [facility] 09-26-2021 History of Present illness Narrative [...] by our office. Pt was admitted into [facility] on 05/11/21 with dx of subdural [...] C. Declines Depression symptoms. Letter sent to [facility] for Retinal exam. Pt has living [...] (FLONASE) 50 mcg/actuation nasal spray Use 1 [place] in each nostril once daily as needed. [...] Past Histories independently gathered by the clinical office support assistant and the remaining scribed note accurately describes [...] Ma documented in this encounter [facility] 07-18-2021 Note HNO ID: [id number] Author: Darrick Pierre MD Service: ? Author Type: Physician Type: Progress Notes Filed: 07/18/2021 11:27 AM Note Text: NEUROSURGERY FOLLOW UP OFFICE NOTE Dr. Darrick Pierre MD, FACS Date of visit:July 18, 2021 Patient Name: Ms.Alma Darshan Chavez Date of : 1945 Current Age: [age] year old Sex: female MRN/E# [id number] Last Office Visit: June 08, 2021 Chief [...] (FLONASE) 50 mcg/actuation nasal spray Use 1 [place] in each nostril once daily as needed. [...] once daily. 90 (more content not included)... [facility] 06-08-2021 Note HNO ID: [id number] Author: Darrick Pierre MD Service: ? Author Type: Physician Type: Progress Notes Filed: 06/08/2021 11:57 AM Note Text: NEUROSURGERY FOLLOW UP OFFICE NOTE Dr. Darrick Pierre MD, [facility] Date of visit: June 08, 2021 Patient Name: Ms.Alma Darshan Chavez Date of : 1945 Current Age: [age] year old Sex: female MRN/E# [id number] Last Office Visit: May 25, 2021 Chief [...] (FLONASE) 50 mcg/actuation nasal spray Use 1 [place] in each nostril once daily as needed. [...] 20 mg ta (more content not included)... [facility] 05-25-2021 Note HNO ID: [id number] Author: Darrick Pierre MD Service: ? Author Type: Physician Type: Progress Notes Filed: 05/25/2021 10:56 AM Note Text: NEUROSURGERY FOLLOW UP OFFICE NOTE Dr. Darrick Pierre MD, FACS Date of visit: May 25, 2021 Patient Name: Ms.Alma Darshan Chavez Date of : 1945 Current Age: [age] year old Sex: female MRN/E# [id number] Last Office Visit: Hospital follow-up Chief Complaint: [...] (FLONASE) 50 mcg/actuation nasal spray Use 1 [place] in each nostril once daily as needed. [...] than 4000 m (more content not included)... [facility] 05-25-2021 Note HNO ID: [id number] Author: RT Clayton(R) Service: Radiology Author Type: [...] RT Scott(R) May 25, 2021 9:36 AM [facility] 05-13-2021 Note HNO ID: [id number] Author: Kalia Tirado APRN.SPRING REPAIRER HELPER HAND Service: Neurosurgery Author Type: Nurse Practitioner Type: [...] (HCC) 05/11/2021 - TBI (traumatic brain injury) ([facility]) 05/11/2021 - Fall 05/11/2021 - Subarachnoid hemorrhage following injury, no loss of consciousness ([facility]) 05/11/2021 Sheree Chavez is a 75 year old female fall from stool, CHI/SDH/SAH/contusion. - Neuro as above - Neuro checks per protocol - Ok for d/c - 2 wk f/u with Dr Pierre with CTH requested - No AC/AP until f/u SIGNATURE: Kalia Tirado APRN.CNP PATIENT NAME: Sheree Chavez DATE: May 13, 2021 TIME: 11:39 AM Pager: [phone] [facility] 05-13-2021 Note HNO ID: [id number] Author: Margret Dawson APRN.CNP Service: General Surgery Author Type: Nurse Practitioner Type: Progress Notes Filed: 05/13/2021 8:28 AM Note Text: Trauma Surgery Progress Note SERVICE DATE: 05/13/2021 Trauma Service Pager: For questions or concerns Mon-Fri 6a-5p please page [phone]. After 5pm and on Weekends and Holidays, please page [phone] if in ICU or [phone] if on RNF. SUBJECTIVE: NAEON. Patient hopeful [...] (HCC) 05/11/2021 - TBI (traumatic brain injury) ([facility]) 05/11/2021 - Fall 05/11/2021 - Subarachnoid hemorrhage following injury, no loss of consciousness ([facility]) 05/11/2021 75 year old female s/p [...] home today if cleared by neurosurgery, PT, THERMOMETER TESTER PPX: 1. DVT: SCDs, mobililze 2. Ulcer: n/a 3. Vit D level if > 65 yo: pending Consulted Services: 1. SICU 2. Neurosurgery 3. Orthopedic surgery 4. THERMOMETER TESTER Dispo Plannin. PT/OT recs pending. Case management following. Incidentals: 1. None Follow Up Needs: 1. NSGY - Dr. Pierre 2. PCP Staff Trauma Surgeon: Dr. Raymundo SIGNATURE: Margret Dawson APRN.CNP PATIENT NAME: Sheree Chavez DATE: May 13, 2021 TIME: 8:19 AM Pager: see below Trauma Service Pager: For questions or concerns Mon-Fri 6a-5p please page [phone]. After 5pm and on Weekends and Holidays, please page [phone] if in ICU or [phone] if on RNF. [facility] 05-13-2021 Note HNO ID: [id number] Author: Interface Note Service: ? Author Type: ? Type: Progress Notes Filed: 05/13/2021 3:09 AM Note Text: Epic Scheduled Downtime: 05/13/2021 1:00:00 AM to 05/13/2021 2:52:00 AM [facility] 05-12-2021 Note HNO ID: [id number] Author: Scarlett Foster RPh Service: Pharmacy Author Type: Pharmacist Type: Plan of Care Filed: 05/12/2021 4:55 PM Note Text: PHARMACY MEDICATION REVIEW Patient Name: Sheree Chavez : 1945 The following medications were updated within the SENIOR ACCOUNTS PAYABLE CLERK medication list: Medications ADDED to SENIOR ACCOUNTS PAYABLE CLERK medication list ? cannabidiol, CBD, (CANNABIDIOL ORAL) [...] (Pt reports OTC use) Medications CHANGED on SENIOR ACCOUNTS PAYABLE CLERK medication list ? ACETAMINOPHEN 500 MG TAB (Directions clarified) ? famotidine (PEPCID) 20 mg tablet (Pt reports use 1-2 days weekly - Directions clarified) Medications REMOVED from SENIOR ACCOUNTS PAYABLE CLERK medication list ? Cholecalciferol, Vitamin D3, 2,000 unit cap (Pt reports no longer taking) ? fluticasone (FLONASE) 50 mcg/actuation nasal spray ([facility] entry) ? loratadine (CLARITIN) 10 mg tablet (Pt reports no longer taking) Additional comments: Verified medication information with patient, pharmacy and chart review. Patient stated no longer taking Vit D or Claritin - removed from med list and duplicate fluticasone order removed. Pharmacy confirmed fill dates current. The below information represents the best possible medication history: Yes Medication history completed by: Hospital Sales Representative: Eun Crouch (Public Relations Director) and Sd Hernandez (Handle Rounder Operator) Source of history: Patient:Reliability of source: Appears reliable, clearly identified: Medication name, Medication dose, Medication route and Medication frequency, Pharmacy records: [facility] [phone] [facility] records Medication nonadherence identified: No barriers noted Reconciliation completed: Yes All SENIOR ACCOUNTS PAYABLE CLERK medications addressed by LIP Patient interested in Bedside Delivery Services or using CC OP Pharmacy at discharge? No Preferred outpatient pharmacy: [id number] [place] [address] - [address] [phone] [id number] Allergies: Palm Oil GI Upset Accupril [Quinapril* Other: See Comments Comment:Pt unsure why this is listed. Not sure what allergy is Asa [Salicylates] GI Upset Penicillins Hives Vicodin [Hydrocodon* GI Upset Bees Codeine Intolerance Metformin GI Upset Comment:diarrhea higher dose Prior to Admission medications as of 05/12/21 9578 Medication Sig Last Dose Taking therapeutic multivitamin w/ iron (THERAGRAN-M) 27-0.4 mg tablet Take 1 tablet by mouth once daily. Yes fluticasone (FLONASE) 50 mcg/actuation nasal spray Use 1 [place] in each nostril once daily as needed. [...] day (FROM ALL SOURCES) Yes Eun Crouch (Public Relations Director) [email or web address] 05/12/2021 Sd Hernandez (Beveling Machine Operator) 05/12/2021 I agree with the medication history completed by the pharmacy district manager above, making changes as necessary in RED Scarlett Foster, DialloD PGY-2 Critical Care Senior Recruiter [facility] 05-12-2021 Note HNO ID: [id number] Author: MICHELLE Vazquez Service: Care Management Author Type: Hand Ii Cutter Type: Care Mgt Initial Assessment Filed: 05/12/2021 11:54 AM Note Text: CARE MANAGEMENT: ASSESSMENT AND DISCHARGE PLAN SERVICE DATE: May 12, 2021 SERVICE TIME: 8:50 AM PRIMARY CARE PHYSICIAN: Deirdre Quiñones MD ADMISSION STATUS: Inpatient Needs Prior to Discharge: To Be Determined;OT/PT Evaluation MEDICAL: [employer]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 Last discharge within 30 days: No Advance Directive: Current Advance Directive: None Automotive Accessory Installer Attempted to Assist with AD Completion: Yes [...] Completely I feel financially burdened by my oup-ww-oomrek expenses for my prescription medication:: 0 - Disagree Completely Risk Score: 0 Patient is categorized as: Low risk < 2 Are you interested in bedside delivery of your medications? Yes ASSESSMENT AND PLAN: Medical Needs: Medical Needs: None Psychosocial Needs: Psychosocial Needs: None FREEDOM OF CHOICE EXPLAINED: [place] of Choice Given: No Reason Not Given: [...] to Admission: none Support: Sammi Chavez (Daughter) [phone] and Lauren Chavez (son) [phone] Pharmacy: [facility]/pharmacy #[id number] [place] [address] PCP: Deirdre Quiñones MD The patient was [...] 12, 2021 TIME: 9:20 AM PAGER/CONTACT #: [phone] [facility] 05-12-2021 Note HNO ID: [id number] Author: Bridgett Guerrero PA-C Service: Neurosurgery Author Type: Physician Lapeler Type: Progress Notes Filed: 05/12/2021 1:15 PM [...] May 12, 2021 TIME: 1:06 PM Pager: [phone] [facility] 05-12-2021 Note HNO ID: [id number] Author: David Garcia DO Service: General Surgery [...] questions or concerns Mon-Fri 6a-5p please page [phone]. After 5pm and on Weekends and Holidays, please page [phone] if in ICU or [phone] if on RNF. SUBJECTIVE: NAEO, AF, HDS [...] (HCC) 05/11/2021 - TBI (traumatic brain injury) ([facility]) 05/11/2021 - Fall 05/11/2021 - Subarachnoid hemorrhage following injury, no loss of consciousness ([facility]) 05/11/2021 75 year old female s/p [...] 1. None Fol (more content not included)... [facility] 05-12-2021 Note HNO ID: [id number] Author: Chacho Ocampo MD Service: General Surgery [...] concern for o (more content not included)... [facility] 05-13-2014 History of Past i llness Narrative Problem Noted Date Resolved Date Essential hypertension, benign 1 07/13/2013 DIABETES MELLITUS TYPE II-UNCOMPL 05/13/2014 documented as of this encounter (statuses as of 09/27/2021) [facility] History of Past illness Narrative* Problem Noted Date Resolved Date Essential hypertension, benign 1 07/13/2013 DIABETES MELLITUS TYPE II-UNCOMPL 05/13/2014 documented as of this encounter (statuses as of 09/29/2021) [facility] History of Past illness Narrative* Problem Noted Date Resolved Date Essential hypertension, benign 1 07/13/2013 DIABETES MELLITUS TYPE II-UNCOMPL 05/13/2014 documented as of this encounter (statuses as of 10/20/2021) [facility] History of Past illness Narrative* Problem Noted Date Resolved Date Essential hypertension, benign 1 07/13/2013 DIABETES MELLITUS TYPE II-UNCOMPL 05/13/2014 documented as of this encounter (statuses as of 10/20/2021) [facility] History of Past illness Narrative* Problem Noted Date Resolved Date Essential hypertension, benign 1 07/13/2013 DIABETES MELLITUS TYPE II-UNCOMPL 05/13/2014 documented as of this encounter (statuses as of 11/16/2021) [facility] History of Past illness Narrative* Problem Noted Date Resolved Date Essential hypertension, benign 1 07/13/2013 DIABETES MELLITUS TYPE II-UNCOMPL 05/13/2014 documented as of this encounter (statuses as of 11/21/2021) [facility] History of Past illness Narrative* Problem Noted Date Resolved Date Essential hypertension, benign 1 07/13/2013 DIABETES MELLITUS TYPE II-UNCOMPL 05/13/2014 documented as of this encounter (statuses as of 11/23/2021) [facility] History of Past illness Narrative* Problem Noted Date Resolved Date Essential hypertension, benign 1 07/13/2013 DIABETES MELLITUS TYPE II-UNCOMPL 05/13/2014 documented as of this encounter (statuses as of 11/25/2021) [address] History of Past illness Narrative* Problem Noted Date Resolved Date Essential hypertension, benign 1 07/13/2013 DIABETES MELLITUS TYPE II-UNCOMPL 05/13/2014 documented as of this encounter (statuses as of 12/14/2021) [facility] History of Past illness Narrative* Problem Noted Date Resolved Date Essential hypertension, benign 1 07/13/2013 DIABETES MELLITUS TYPE II-UNCOMPL 05/13/2014 documented as of this encounter (statuses as of 01/17/2022) [facility] History of Past illness Narrative* Problem Noted Date Resolved Date Essential hypertension, benign 1 07/13/2013 DIABETES MELLITUS TYPE II-UNCOMPL 05/13/2014 documented as of this encounter (statuses as of 03/20/2022) [place] [address]-06-2014 History of Past illness Narrative* Problem Noted Date Resolved Date Essential hypertension, benign 1 07/13/2013 DIABETES MELLITUS TYPE II-UNCOMPL 05/13/2014 documented as of this encounter (statuses as of 03/23/2022) [facility] History of Past illness Narrative* Problem Noted Date Resolved Date Essential hypertension, benign 1 07/13/2013 DIABETES MELLITUS TYPE II-UNCOMPL 05/13/2014 documented as of this encounter (statuses as of 04/06/2022) [facility] History of Past illness Narrative* Problem Noted Date Resolved Date Essential hypertension, benign 1 07/13/2013 DIABETES MELLITUS TYPE II-UNCOMPL 05/13/2014 documented as of this encounter (statuses as of 04/19/2022) [facility] History of Past illness Narrative* Problem Noted Date Resolved Date Essential hypertension, benign 1 07/13/2013 DIABETES MELLITUS TYPE II-UNCOMPL 05/13/2014 documented as of this encounter (statuses as of 04/23/2022) [facility] History of Past illness Narrative* Problem Noted Date Resolved Date Essential hypertension, benign 1 07/13/2013 DIABETES MELLITUS TYPE II-UNCOMPL 05/13/2014 documented as of this encounter (statuses as of 05/04/2022) [facility] History of Past illness Narrative* Problem Noted Date Resolved Date Essential hypertension, benign 1 07/13/2013 DIABETES MELLITUS TYPE II-UNCOMPL 05/13/2014 documented as of this encounter (statuses as of 05/04/2022) [facility] History of Past illness Narrative* Problem Noted Date Resolved Date Essential hypertension, benign 1 07/13/2013 DIABETES MELLITUS TYPE II-UNCOMPL 05/13/2014 documented as of this encounter (statuses as of 05/21/2022) [facility] History of Past illness Narrative* Problem Noted Date Resolved Date Essential hypertension, benign 1 07/13/2013 DIABETES MELLITUS TYPE II-UNCOMPL 05/13/2014 documented as of this encounter (statuses as of 06/04/2022) [facility] History of Past illness Narrative* Problem Noted Date Resolved Date Essential hypertension, benign 1 07/13/2013 DIABETES MELLITUS TYPE II-UNCOMPL 05/13/2014 documented as of this encounter (statuses as of 06/20/2022) [facility] History of Past illness Narrative* Problem Noted Date Resolved Date Essential hypertension, benign 1 07/13/2013 DIABETES MELLITUS TYPE II-UNCOMPL 05/13/2014 documented as of this encounter (statuses as of 06/27/2022) [facility] History of Past illness Narrative* Problem Noted Date Resolved Date Essential hypertension, benign 1 07/13/2013 DIABETES MELLITUS TYPE II-UNCOMPL 05/13/2014 documented as of this encounter (statuses as of 07/10/2022) [facility] History of Past illness Narrative* Problem Noted Date Resolved Date Essential hypertension, benign 1 07/13/2013 DIABETES MELLITUS TYPE II-UNCOMPL 05/13/2014 documented as of this encounter (statuses as of 07/23/2022) [facility] [facility] Past [facility] Narrative* Problem Noted Date Resolved Date Essential hypertension, benign 1 07/13/2013 DIABETES MELLITUS TYPE II-UNCOMPL 05/13/2014 documented as of this encounter (statuses as of 07/26/2022) [facility] History of Past illness Narrative* Problem Noted Date Resolved Date Essential hypertension, benign 1 07/13/2013 DIABETES MELLITUS TYPE II-UNCOMPL 05/13/2014 documented as of this encounter (statuses as of 07/26/2022) [address]06-2014 History of Past illness Narrative* Problem Noted Date Resolved Date Essential hypertension, benign 1 07/13/2013 DIABETES MELLITUS TYPE II-UNCOMPL 05/13/2014 documented as of this encounter (statuses as of 08/01/2022) [address]06-2014 History of Past illness Narrative* Problem Noted Date Resolved Date Essential hypertension, benign 1 07/13/2013 DIABETES MELLITUS TYPE II-UNCOMPL 05/13/2014 documented as of this encounter (statuses as of 08/16/2022) [address]06-2014 History of Past illness Narrative* Problem Noted Date Resolved Date Essential hypertension, benign 1 07/13/2013 DIABETES MELLITUS TYPE II-UNCOMPL 05/13/2014 documented as of this encounter (statuses as of 08/31/2022) [address]06-2014 History of Past illness Narrative* Problem Noted Date Resolved Date Essential hypertension, benign 1 07/13/2013 DIABETES MELLITUS TYPE II-UNCOMPL 05/13/2014 documented as of this encounter (statuses as of 09/18/2022) [place] [address]-06-2014 History of Past illness Narrative* Problem Noted Date Resolved Date Essential hypertension, benign 1 07/13/2013 DIABETES MELLITUS TYPE II-UNCOMPL 05/13/2014 documented as of this encounter (statuses as of 09/25/2022) [place] [address]-06-2014 History of Past illness Narrative* Problem Noted Date Resolved Date Essential hypertension, benign 1 07/13/2013 DIABETES MELLITUS TYPE II-UNCOMPL 05/13/2014 documented as of this encounter (statuses as of 09/25/2022) [place] [address]-06-2014 History of Past illness Narrative* Problem Noted Date Resolved Date Essential hypertension, benign 1 07/13/2013 DIABETES MELLITUS TYPE II-UNCOMPL 05/13/2014 documented as of this encounter (statuses as of 10/09/2022) [facility] History of Past illness Narrative* Problem Noted Date Resolved Date Essential hypertension, benign 1 07/13/2013 DIABETES MELLITUS TYPE II-UNCOMPL 05/13/2014 documented as of this encounter (statuses as of 10/22/2022) [address]06-2014 History of Past illness Narrative* Problem Noted Date Resolved Date Essential hypertension, benign 1 07/13/2013 DIABETES MELLITUS TYPE II-UNCOMPL 05/13/2014 documented as of this encounter (statuses as of 11/02/2022) [address]06-2014 History of Past illness Narrative* Problem Noted Date Resolved Date Essential hypertension, benign 1 07/13/2013 DIABETES MELLITUS TYPE II-UNCOMPL 05/13/2014 documented as of this encounter (statuses as of 12/07/2022) [address]06[address]2014 History of Past illness Narrative* Problem Noted Date Resolved Date Essential hypertension, benign 1 07/13/2013 DIABETES MELLITUS TYPE II-UNCOMPL 05/13/2014 documented as of this encounter (statuses as of 12/12/2022) [address]2014 History of Past illness Narrative* Problem Noted Date Diagnosed Date Resolved Date Essential hypertension, benign 05/13/2014 DIABETES MELLITUS TYPE II-UNCOMPL 05/13/2014 documented as of this encounter (statuses as of 01/22/2023) [address]06[address]2014 History of Past illness Narrative* Problem Noted Date Diagnosed Date Resolved Date Essential hypertension, benign 05/13/2014 DIABETES MELLITUS TYPE II-UNCOMPL 05/13/2014 documented as of this encounter (statuses as of 01/22/2023) [address]06-2014 History of Past illness Narrative* Problem Noted Date Diagnosed Date Resolved Date Essential hypertension, benign 05/13/2014 DIABETES MELLITUS TYPE II-UNCOMPL 05/13/2014 documented as of this encounter (statuses as of 01/22/2023) [address]2014 History of Past illness Narrative* Problem Noted Date Diagnosed Date Resolved Date Essential hypertension, benign 05/13/2014 DIABETES MELLITUS TYPE II-UNCOMPL 05/13/2014 documented as of this encounter (statuses as of 02/06/2023) [address] History of Past illness Narrative* Problem Noted Date Diagnosed Date Resolved Date Essential hypertension, benign 05/13/2014 DIABETES MELLITUS TYPE II-UNCOMPL 05/13/2014 documented as of this encounter (statuses as of 04/19/2023) [address] History of Past illness Narrative* Problem Noted Date Diagnosed Date Resolved Date Essential hypertension, benign 05/13/2014 DIABETES MELLITUS TYPE II-UNCOMPL 05/13/2014 documented as of this encounter (statuses as of 04/19/2023) [place] [address]-06-2014 History of Past illness Narrative* Problem Noted Date Diagnosed Date Resolved Date Essential hypertension, benign 05/13/2014 DIABETES MELLITUS TYPE II-UNCOMPL 05/13/2014 documented as of this encounter (statuses as of 04/20/2023) [place] [address]-06-2014 History of Past illness Narrative* Problem Noted Date Diagnosed Date Resolved Date Essential hypertension, benign 05/13/2014 DIABETES MELLITUS TYPE II-UNCOMPL 05/13/2014 documented as of this encounter (statuses as of 04/23/2023) [facility] History of Past illness Narrative* Problem Noted Date Diagnosed Date Resolved Date Essential hypertension, benign 05/13/2014 DIABETES MELLITUS TYPE II-UNCOMPL 05/13/2014 documented as of this encounter (statuses as of 04/25/2023) [facility] History of Past illness Narrative* Problem Noted Date Diagnosed Date Resolved Date Essential hypertension, benign 05/13/2014 DIABETES MELLITUS TYPE II-UNCOMPL 05/13/2014 documented as of this encounter (statuses as of 04/29/2023) [facility] History of Past illness Narrative* Problem Noted Date Diagnosed Date Resolved Date Essential hypertension, benign 05/13/2014 DIABETES MELLITUS TYPE II-UNCOMPL 05/13/2014 documented as of this encounter (statuses as of 10/22/2023) [facility] note* Diagnosis Type 2 diabetes mellitus without complication, without long-term current use of insulin ([facility])- Primary Diarrhea, unspecified type Hypertension, unspecified type Hypothyroidism, unspecified type Mixed hyperlipidemia Anxiety state Anxiety state, unspecified Subarachnoid hemorrhage following injury, no loss of consciousness, sequela ([facility]) Tobacco use Tobacco use disorder Tick bite, unspecified site, initial encounter [facility] Diagnosis Type 2 diabetes mellitus without complication, without long-term current use of insulin ([facility]) [facility] Diagnosis Anxiety state Anxiety state, unspecified [facility] Diagnosis Anxiety state Anxiety state, unspecified [facility] Diagnosis Congestion of nasal sinus- Primary Other diseases of nasal cavity and sinuses documented in this encounter [facility] note* Diagnosis Anxiety state Anxiety state, unspecified [facility] Diagnosis Hypothyroidism, unspecified type Type 2 diabetes mellitus without complication, without long-term current use of insulin (HCC) Anxiety state Anxiety state, unspecified documented in this encounter [facility] note* Diagnosis Uncontrolled type 2 diabetes mellitus with hyperglycemia (HCC)- Primary Mixed hyperlipidemia Hypertension, unspecified type Anxiety state Anxiety state, unspecified Fall, initial encounter Hypothyroidism, unspecified type Arthritis of both hands documented in this encounter [facility] note* Diagnosis Anxiety state Anxiety state, unspecified Type 2 diabetes mellitus without complication, without long-term current use of insulin (HCC) [facility] Diagnosis Anxiety state Anxiety state, unspecified [facility] Diagnosis Uncontrolled type 2 diabetes mellitus with hyperglycemia (HCC) [facility]* Diagnosis Anxiety state Anxiety state, unspecified [facility]* Diagnosis Type 2 diabetes mellitus without complication, without long-term current use of insulin (HCC) Anxiety state Anxiety state, unspecified [facility]* Diagnosis Sciatica, right side- Primary [facility]* Diagnosis Hip pain- Primary Pain in joint, pelvic region and thigh [facility] Diagnosis Anxiety state Anxiety state, unspecified [facility]* Diagnosis Uncontrolled type 2 diabetes mellitus with hyperglycemia (HCC) [facility]* Diagnosis Uncontrolled type 2 diabetes mellitus with hyperglycemia (HCC) [facility]* Diagnosis Mixed hyperlipidemia [facility] Diagnosis Uncontrolled type 2 diabetes mellitus with hyperglycemia (HCC)- Primary Mixed hyperlipidemia [facility] Diagnosis Hypertension, unspecified type [facility] Diagnosis Anxiety state Anxiety state, unspecified Uncontrolled type 2 diabetes mellitus with hyperglycemia (HCC) [facility] noteNo assessment information availableWOhio[facility] Work Phone: [facility] note* Diagnosis Hypothyroidism, unspecified type [facility] Diagnosis Onset Date Resolution Status Spinal stenosis at L4-L5 level acute Greater trochanteric bursitis of right hip noneactive IT band syndrome noneactive [facility] Work Phone: Evaluation note* Diagnosis Chest tightness- Primary Other chest pain [facility]* Diagnosis Closed fracture of one rib of left side, initial encounter- Primary Rib injury Sprain of ribs [facility]* Diagnosis Anxiety state Anxiety state, unspecified [facility]* Diagnosis Medicare annual wellness visit, initial- Primary Routine general medical examination at a [facility] facility Type 2 diabetes mellitus without complication, without long-term current use of insulin (HCC) Hypertension, unspecified type Mixed hyperlipidemia Anxiety state Anxiety state, unspecified Hypothyroidism, unspecified type History of COVID-19 [facility] Diagnosis Hypertension, unspecified type [facility]* Diagnosis Anxiety state Anxiety state, unspecified [facility] Diagnosis Anxiety state Anxiety state, unspecified Hypertension, unspecified type [facility]* Diagnosis Mixed hyperlipidemia Anxiety state Anxiety state, unspecified Hypertension, unspecified type [facility] Diagnosis Acute hip pain, right [facility] Diagnosis Hip pain Pain in joint, pelvic region and thigh [facility] Diagnosis Viral URI with cough Acute upper respiratory infections of unspecified site [facility] Diagnosis Anxiety state Anxiety state, unspecified [facility] Diagnosis Hypothyroidism, unspecified type Anxiety state Anxiety state, unspecified [facility] Diagnosis Mixed hyperlipidemia- Primary Type 2 diabetes mellitus without complication, without long-term current use of insulin (HCC) Hypertension, unspecified type Hypothyroidism, unspecified type [facility] Diagnosis Medicare annual wellness visit, subsequent- Primary Routine general medical examination at a [facility] care facility Sciatica, right side Acute pain of left knee Type 2 diabetes mellitus without complication, without long-term current use of insulin (HCC) Hypothyroidism, unspecified type Asthma due to seasonal allergies Anxiety state Anxiety state, unspecified Smoking Tobacco use disorder Screening for depression [facility] Diagnosis Anxiety state Anxiety state, unspecified documented in this encounter [facility] note* Diagnosis Type 2 diabetes mellitus without complication, without long-term current use of insulin (HCC)- Primary Sciatica, right side Hypothyroidism, unspecified type Anxiety state Anxiety state, unspecified Asthma due to seasonal allergies Mixed hyperlipidemia Smoking Tobacco use disorder documented in this encounter [facility] note* Diagnosis Asthma due to seasonal allergies Sciatica, right side Type 2 diabetes mellitus without complication, without long-term current use of insulin (HCC) documented in this encounter [facility] note* Diagnosis Type 2 diabetes mellitus with other specified complication, without long-term current use of insulin (HCC)- Primary documented in this encounter [facility] note* Diagnosis Anxiety state Anxiety state, unspecified documented in this encounter [facility] note* Diagnosis Type 2 diabetes mellitus without complication, without long-term current use of insulin (HCC) documented in this encounter [facility] note* Diagnosis Anxiety state Anxiety state, unspecified documented in this encounter [facility] note* Diagnosis Mixed hyperlipidemia Hypertension, unspecified type [facility] Additional Instructions Ambulatory pulse ox 97% on room air. Monitor pulse ox at home, if drops below 88 return to ED for reevaluation otherwise follow-up with your doctor.[facility] Work Phone: Reason for referral (narrative)* Diagnostic Procedure Only (Routine) - Closed Specialty Diagnoses / Procedures Referred By Contac t Referred To Contact XR IMAGING Diagnoses Hip pain Procedures XR HIP BILATERAL 5V PEL/AP/LAT EACH HIP RADEX HIPS BILATERAL WITH PELVIS MINIMUM 5 VIEWS Silvia Vazquez, OLIVIA [address] [place] [address] Xr Imaging Referral ID Status Reason Start Date Expiration Date V isits Requested Visits Authorized [id number] Closed Auto-Generate d Referral 07/04/2022 08/03/2023 1 1 [facility] for referral (narrative)* Diagnostic Procedure Only (Urgent) - Closed Specialty Diagnoses / Procedures Referred By Contac t Referred To Contact XR IMAGING Diagnoses Rib injury Procedures XR RIBS/CHEST 3V AP RIB/OBLS/CXR LEFT RADEX RIBS UNI W/POSTEROANT CH MINIMUM 3 VIEWS Spencer Lopez APRN.[employer] [address] [place] [address] [place] [address] Referral ID Status Reason Start Date Expiration Date V isits Requested Visits Authorized [id number] Closed Auto-Generate d Referral 04/22/2023 05/21/2024 1 1 [facility] for referral (narrative)* Diagnostic Procedure Only (Urgent) - Closed Specialty Diagnoses / Procedures Referred By Contac t Referred To Contact XR IMAGING Diagnoses Acute hip pain, right Procedures XR HIP GENERAL 3V PELV/AP/LAT RIGHT RADEX HIP UNILATERAL WITH PELVIS 2-3 VIEWS David Alexis MD [address] [place] [address] [place] [address] Referral ID Status Reason Start Date Expiration Date V isits Requested Visits Authorized [id number] Closed Auto-Generate d Referral 11/22/2022 12/22/2023 1 1 [facility] for referral (narrative)* Diagnostic Procedure Only (Routine) - Closed Specialty Diagnoses / Procedures Referred By Contac t Referred To Contact XR IMAGING Diagnoses Hip pain Procedures XR HIP BILATERAL 5V PEL/AP/LAT EACH HIP RADEX HIPS BILATERAL WITH PELVIS MINIMUM 5 VIEWS Silvia Vazquez APRN.[employer] [address] [place] [address] [place] [address] Referral ID Status Reason Start Date Expiration Date V isits Requested Visits Authorized [id number] Closed Auto-Generate d Referral 07/04/2022 08/03/2023 1 1 [facility] for visit Narrative* Diagnostic Procedure Only (Urgent) - Closed Specialty Diagnoses / Procedures Referred By Contac t Referred To Contact XR IMAGING Diagnoses Rib injury Procedures XR RIBS/CHEST 3V AP RIB/OBLS/CXR LEFT RADEX RIBS UNI W/POSTEROANT CH MINIMUM 3 VIEWS Spencer Lopez APRN.[employer] [address] [place] [address] [place] [address] Referral ID Status Reason Start Date Expiration Date V isits Requested Visits Authorized [id number] Closed Auto-Generate d Referral 04/22/2023 05/21/2024 1 1 [facility] for visit Narrative* Diagnostic Procedure Only (Urgent) - Closed Specialty Diagnoses / Procedures Referred By Contac t Referred To Contact XR IMAGING Diagnoses Acute hip pain, right Procedures XR HIP GENERAL 3V PELV/AP/LAT RIGHT RADEX HIP UNILATERAL WITH PELVIS 2-3 VIEWS David Alexis MD [address] [place] [address] [place] [address] Referral ID Status Reason Start Date Expiration Date V isits Requested Visits Authorized [id number] Closed Auto-Generate d Referral 11/22/2022 12/22/2023 1 1 [facility] for visit Narrative* Diagnostic Procedure Only (Routine) - Closed Specialty Diagnoses / Procedures Referred By Contac t Referred To Contact XR IMAGING Diagnoses Hip pain Procedures XR HIP BILATERAL 5V PEL/AP/LAT EACH HIP RADEX HIPS BILATERAL WITH PELVIS MINIMUM 5 VIEWS Silvia Vazquez APRN.[employer] [address] [place] [address] [place] [address] Referral ID Status Reason Start Date Expiration Date V isits Requested Visits Authorized [id number] Closed Auto-Generate d Referral 07/04/2022 08/03/2023 1 1 [facility] Summary Purpose Family History No Family History Records FoundNo Family History Records FoundNo Family History Records Found Advance Directives No Advanced Directives Records FoundDocuments on File Type Date 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 Advance Directive(s) 05/11/2021 4:29 PM Advance Directive Response Recorded Date/ Time Living Will No February 22 10:11pm Power of Stores Assistant No February 22 023 10:11pm Advance Directive Response Recorded Date/ Time Living Will No April 19 8:36pm Power of Stores Assistant No April 19, 2023 8:36pm Medications Administered [...] section and content) DATE CREATED AUTHOR 07/19/2021 [facility] DATE CREATED AUTHOR AUTHOR'S ORGANIZ ATION 03/02/2023 [facility] DATE CREATED AUTHOR AUTHOR'S ORGANIZ ATION 05/06/2025 [facility] Comments (unrecognize d section and content) In the event this informatio n is protected by the Federal Confidentiality of Alcohol and Drug Abuse Patient Records regulations: The Federal rules restrict any use of the information to criminally investigate or prosecute any alcohol or drug abuse patient.[facility] the event this information is protected by the Federal Confidentiality of Alcohol and Drug Abuse Patient Records regulations: The Federal rules restrict any use of the information to criminally investigate or prosecute any alcohol or drug abuse patient.[facility] the event this information is protected by the Federal Confidentiality of Alcohol and Drug Abuse Patient Records regulations: The Federal rules restrict any use of the information to criminally investigate or prosecute any alcohol or drug abuse patient.[facility] the event this information is protected by the Federal Confidentiality of Alcohol and Drug Abuse Patient Records regulations: The Federal rules restrict any use of the information to criminally investigate or prosecute any alcohol or drug abuse patient.[facility] the event this information is protected by the Federal Confidentiality of Alcohol and Drug Abuse Patient Records regulations: The Federal rules restrict any use of the information to criminally investigate or prosecute any alcohol or drug abuse patient.[facility] the event this information is protected by the Federal Confidentiality of Alcohol and Drug Abuse Patient Records regulations: The Federal rules restrict any use of the information to criminally investigate or prosecute any alcohol or drug abuse patient.[facility] the event this information is protected by the Federal Confidentiality of Alcohol and Drug Abuse Patient Records regulations: The Federal rules restrict any use of the information to criminally investigate or prosecute any alcohol or drug abuse patient.[facility] the event this information is protected by the Federal Confidentiality of Alcohol and Drug Abuse Patient Records regulations: The Federal rules restrict any use of the information to criminally investigate or prosecute any alcohol or drug abuse patient.[facility] the event this information is protected by the Federal Confidentiality of Alcohol and Drug Abuse Patient Records regulations: The Federal rules restrict any use of the information to criminally investigate or prosecute any alcohol or drug abuse patient.[facility] the event this information is protected by the Federal Confidentiality of Alcohol and Drug Abuse Patient Records regulations: The Federal rules restrict any use of the information to criminally investigate or prosecute any alcohol or drug abuse patient.[facility] the event this information is protected by the Federal Confidentiality of Alcohol and Drug Abuse Patient Records regulations: The Federal rules restrict any use of the information to criminally investigate or prosecute any alcohol or drug abuse patient.[facility] the event this information is protected by the Federal Confidentiality of Alcohol and Drug Abuse Patient Records regulations: The Federal rules restrict any use of the information to criminally investigate or prosecute any alcohol or drug abuse patient.[facility] the event this information is protected by the Federal Confidentiality of Alcohol and Drug Abuse Patient Records regulations: The Federal rules restrict any use of the information to criminally investigate or prosecute any alcohol or drug abuse patient.[facility] the event this information is protected by the Federal Confidentiality of Alcohol and Drug Abuse Patient Records regulations: The Federal rules restrict any use of the information to criminally investigate or prosecute any alcohol or drug abuse patient.[facility] HospitalIn the event this information is protected by the Federal Confidentiality of Alcohol and Drug Abuse Patient Records regulations: The Federal rules restrict any use of the information to criminally investigate or prosecute any alcohol or drug abuse patient.[facility] HospitalIn the event this information is protected by the Federal Confidentiality of Alcohol and Drug Abuse Patient Records regulations: The Federal rules restrict any use of the information to criminally investigate or prosecute any alcohol or drug abuse patient.[facility] HospitalIn the event this information is protected by the Federal Confidentiality of Alcohol and Drug Abuse Patient Records regulations: The Federal rules restrict any use of the information to criminally investigate or prosecute any alcohol or drug abuse patient.[facility] HospitalIn the event this information is protected by the Federal Confidentiality of Alcohol and Drug Abuse Patient Records regulations: The Federal rules restrict any use of the information to criminally investigate or prosecute any alcohol or drug abuse patient.[facility] HospitalIn the event this information is protected by the Federal Confidentiality of Alcohol and Drug Abuse Patient Records regulations: The Federal rules restrict any use of the information to criminally investigate or prosecute any alcohol or drug abuse patient.[facility] HospitalIn the event this information is protected by the Federal Confidentiality of Alcohol and Drug Abuse Patient Records regulations: The Federal rules restrict any use of the information to criminally investigate or prosecute any alcohol or drug abuse patient.[facility] HospitalIn the event this information is protected by the Federal Confidentiality of Alcohol and Drug Abuse Patient Records regulations: The Federal rules restrict any use of the information to criminally investigate or prosecute any alcohol or drug abuse patient.[facility] HospitalIn the event this information is protected by the Federal Confidentiality of Alcohol and Drug Abuse Patient Records regulations: The Federal rules restrict any use of the information to criminally investigate or prosecute any alcohol or drug abuse patient.[facility] HospitalIn the event this information is protected by the Federal Confidentiality of Alcohol and Drug Abuse Patient Records regulations: The Federal rules restrict any use of the information to criminally investigate or prosecute any alcohol or drug abuse patient.[facility] HospitalIn the event this information is protected by the Federal Confidentiality of Alcohol and Drug Abuse Patient Records regulations: The Federal rules restrict any use of the information to criminally investigate or prosecute any alcohol or drug abuse patient.[facility] HospitalIn the event this information is protected by the Federal Confidentiality of Alcohol and Drug Abuse Patient Records regulations: The Federal rules restrict any use of the information to criminally investigate or prosecute any alcohol or drug abuse patient.[facility] the event this information is protected by the Federal Confidentiality of Alcohol and Drug Abuse Patient Records regulations: The Federal rules restrict any use of the information to criminally investigate or prosecute any alcohol or drug abuse patient.[facility] HospitalIn the event this information is protected by the Federal Confidentiality of Alcohol and Drug Abuse Patient Records regulations: The Federal rules restrict any use of the information to criminally investigate or prosecute any alcohol or drug abuse patient.[facility] HospitalIn the event this information is protected by the Federal Confidentiality of Alcohol and Drug Abuse Patient Records regulations: The Federal rules restrict any use of the information to criminally investigate or prosecute any alcohol or drug abuse patient.[facility] HospitalIn the event this information is protected by the Federal Confidentiality of Alcohol and Drug Abuse Patient Records regulations: The Federal rules restrict any use of the information to criminally investigate or prosecute any alcohol or drug abuse patient.[facility] HospitalIn the event this information is protected by the Federal Confidentiality of Alcohol and Drug Abuse Patient Records regulations: The Federal rules restrict any use of the information to criminally investigate or prosecute any alcohol or drug abuse patient.[facility] HospitalIn the event this information is protected by the Federal Confidentiality of Alcohol and Drug Abuse Patient Records regulations: The Federal rules restrict any use of the information to criminally investigate or prosecute any alcohol or drug abuse patient.[facility] HospitalIn the event this information is protected by the Federal Confidentiality of Alcohol and Drug Abuse Patient Records regulations: The Federal rules restrict any use of the information to criminally investigate or prosecute any alcohol or drug abuse patient.[facility] HospitalIn the event this information is protected by the Federal Confidentiality of Alcohol and Drug Abuse Patient Records regulations: The Federal rules restrict any use of the information to criminally investigate or prosecute any alcohol or drug abuse patient.[facility] HospitalIn the event this information is protected by the Federal Confidentiality of Alcohol and Drug Abuse Patient Records regulations: The Federal rules restrict any use of the information to criminally investigate or prosecute any alcohol or drug abuse patient.[facility] HospitalIn the event this information is protected by the Federal Confidentiality of Alcohol and Drug Abuse Patient Records regulations: The Federal rules restrict any use of the information to criminally investigate or prosecute any alcohol or drug abuse patient.[facility] HospitalIn the event this information is protected by the Federal Confidentiality of Alcohol and Drug Abuse Patient Records regulations: The Federal rules restrict any use of the information to criminally investigate or prosecute any alcohol or drug abuse patient.[facility] HospitalIn the event this information is protected by the Federal Confidentiality of Alcohol and Drug Abuse Patient Records regulations: The Federal rules restrict any use of the information to criminally investigate or prosecute any alcohol or drug abuse patient.[facility] HospitalIn the event this information is protected by the Federal Confidentiality of Alcohol and Drug Abuse Patient Records regulations: The Federal rules restrict any use of the information to criminally investigate or prosecute any alcohol or drug abuse patient.[facility] HospitalIn the event this information is protected by the Federal Confidentiality of Alcohol and Drug Abuse Patient Records regulations: The Federal rules restrict any use of the information to criminally investigate or prosecute any alcohol or drug abuse patient.[facility] HospitalIn the event this information is protected by the Federal Confidentiality of Alcohol and Drug Abuse Patient Records regulations: The Federal rules restrict any use of the information to criminally investigate or prosecute any alcohol or drug abuse patient.[facility] HospitalIn the event this information is protected by the Federal Confidentiality of Alcohol and Drug Abuse Patient Records regulations: The Federal rules restrict any use of the information to criminally investigate or prosecute any alcohol or drug abuse patient.[facility] HospitalIn the event this information is protected by the Federal Confidentiality of Alcohol and Drug Abuse Patient Records regulations: The Federal rules restrict any use of the information to criminally investigate or prosecute any alcohol or drug abuse patient.[facility] HospitalIn the event this information is protected by the Federal Confidentiality of Alcohol and Drug Abuse Patient Records regulations: The Federal rules restrict any use of the information to criminally investigate or prosecute any alcohol or drug abuse patient.[facility] HospitalIn the event this information is protected by the Federal Confidentiality of Alcohol and Drug Abuse Patient Records regulations: The Federal rules restrict any use of the information to criminally investigate or prosecute any alcohol or drug abuse patient.[facility] HospitalIn the event this information is protected by the Federal Confidentiality of Alcohol and Drug Abuse Patient Records regulations: The Federal rules restrict any use of the information to criminally investigate or prosecute any alcohol or drug abuse patient.[facility] HospitalIn the event this information is protected by the Federal Confidentiality of Alcohol and Drug Abuse Patient Records regulations: The Federal rules restrict any use of the information to criminally investigate or prosecute any alcohol or drug abuse patient.[facility] HospitalIn the event this information is protected by the Federal Confidentiality of Alcohol and Drug Abuse Patient Records regulations: The Federal rules restrict any use of the information to criminally investigate or prosecute any alcohol or drug abuse patient.[facility] HospitalIn the event this information is protected by the Federal Confidentiality of Alcohol and Drug Abuse Patient Records regulations: The Federal rules restrict any use of the information to criminally investigate or prosecute any alcohol or drug abuse patient.[facility] HospitalIn the event this information is protected by the Federal Confidentiality of Alcohol and Drug Abuse Patient Records regulations: The Federal rules restrict any use of the information to criminally investigate or prosecute any alcohol or drug abuse patient.[facility] HospitalIn the event this information is protected by the Federal Confidentiality of Alcohol and Drug Abuse Patient Records regulations: The Federal rules restrict any use of the information to criminally investigate or prosecute any alcohol or drug abuse patient.[facility] HospitalIn the event this information is protected by the Federal Confidentiality of Alcohol and Drug Abuse Patient Records regulations: The Federal rules restrict any use of the information to criminally investigate or prosecute any alcohol or drug abuse patient.[facility] HospitalIn the event this information is protected by the Federal Confidentiality of Alcohol and Drug Abuse Patient Records regulations: The Federal rules restrict any use of the information to criminally investigate or prosecute any alcohol or drug abuse patient.[facility] HospitalIn the event this information is protected by the Federal Confidentiality of Alcohol and Drug Abuse Patient Records regulations: The Federal rules restrict any use of the information to criminally investigate or prosecute any alcohol or drug abuse patient.[facility] HospitalIn the event this information is protected by the Federal Confidentiality of Alcohol and Drug Abuse Patient Records regulations: The Federal rules restrict any use of the information to criminally investigate or prosecute any alcohol or drug abuse patient.[facility] HospitalIn the event this information is protected by the Federal Confidentiality of Alcohol and Drug Abuse Patient Records regulations: The Federal rules restrict any use of the information to criminally investigate or prosecute any alcohol or drug abuse patient.[facility] HospitalIn the event this information is protected by the Federal Confidentiality of Alcohol and Drug Abuse Patient Records regulations: The Federal rules restrict any use of the information to criminally investigate or prosecute any alcohol or drug abuse patient.[facility] HospitalIn the event this information is protected by the Federal Confidentiality of Alcohol and Drug Abuse Patient Records regulations: The Federal rules restrict any use of the information to criminally investigate or prosecute any alcohol or drug abuse patient.[facility] HospitalIn the event this information is protected by the Federal Confidentiality of Alcohol and Drug Abuse Patient Records regulations: The Federal rules restrict any use of the information to criminally investigate or prosecute any alcohol or drug abuse patient.[facility] HospitalIn the event this information is protected by the Federal Confidentiality of Alcohol and Drug Abuse Patient Records regulations: The Federal rules restrict any use of the information to criminally investigate or prosecute any alcohol or drug abuse patient.[facility] HospitalIn the event this information is protected by the Federal Confidentiality of Alcohol and Drug Abuse Patient Records regulations: The Federal rules restrict any use of the information to criminally investigate or prosecute any alcohol or drug abuse patient.[facility] HospitalIn the event this information is protected by the Federal Confidentiality of Alcohol and Drug Abuse Patient Records regulations: The Federal rules restrict any use of the information to criminally investigate or prosecute any alcohol or drug abuse patient.[facility] HospitalIn the event this information is protected by the Federal Confidentiality of Alcohol and Drug Abuse Patient Records regulations: The Federal rules restrict any use of the information to criminally investigate or prosecute any alcohol or drug abuse patient.[facility] HospitalIn the event this information is protected by the Federal Confidentiality of Alcohol and Drug Abuse Patient Records regulations: The Federal rules restrict any use of the information to criminally investigate or prosecute any alcohol or drug abuse patient.[facility] HospitalIn the event this information is protected by the Federal Confidentiality of Alcohol and Drug Abuse Patient Records regulations: The Federal rules restrict any use of the information to criminally investigate or prosecute any alcohol or drug abuse patient.[facility] HospitalIn the event this information is protected by the Federal Confidentiality of Alcohol and Drug Abuse Patient Records regulations: The Federal rules restrict any use of the information to criminally investigate or prosecute any alcohol or drug abuse patient.[facility] HospitalIn the event this information is protected by the Federal Confidentiality of Alcohol and Drug Abuse Patient Records regulations: The Federal rules restrict any use of the information to criminally investigate or prosecute any alcohol or drug abuse patient.[facility] HospitalIn the event this information is protected by the Federal Confidentiality of Alcohol and Drug Abuse Patient Records regulations: The Federal rules restrict any use of the information to criminally investigate or prosecute any alcohol or drug abuse patient.[facility] HospitalIn the event this information is protected by the Federal Confidentiality of Alcohol and Drug Abuse Patient Records regulations: The Federal rules restrict any use of the information to criminally investigate or prosecute any alcohol or drug abuse patient.[facility] HospitalIn the event this information is protected by the Federal Confidentiality of Alcohol and Drug Abuse Patient Records regulations: The Federal rules restrict any use of the information to criminally investigate or prosecute any alcohol or drug abuse patient.[facility] HospitalIn the event this information is protected by the Federal Confidentiality of Alcohol and Drug Abuse Patient Records regulations: The Federal rules restrict any use of the information to criminally investigate or prosecute any alcohol or drug abuse patient.[facility] HospitalIn the event this information is protected by the Federal Confidentiality of Alcohol and Drug Abuse Patient Records regulations: The Federal rules restrict any use of the information to criminally investigate or prosecute any alcohol or drug abuse patient.[facility] HospitalIn the event this information is protected by the Federal Confidentiality of Alcohol and Drug Abuse Patient Records regulations: The Federal rules restrict any use of the information to criminally investigate or prosecute any alcohol or drug abuse patient.[facility] HospitalIn the event this information is protected by the Federal Confidentiality of Alcohol and Drug Abuse Patient Records regulations: The Federal rules restrict any use of the information to criminally investigate or prosecute any alcohol or drug abuse patient.[facility] HospitalIn the event this information is protected by the Federal Confidentiality of Alcohol and Drug Abuse Patient Records regulations: The Federal rules restrict any use of the information to criminally investigate or prosecute any alcohol or drug abuse patient.[facility] HospitalIn the event this information is protected by the Federal Confidentiality of Alcohol and Drug Abuse Patient Records regulations: The Federal rules restrict any use of the information to criminally investigate or prosecute any alcohol or drug abuse patient.[facility] the event this information is protected by the Federal Confidentiality of Alcohol and Drug Abuse Patient Records regulations: The Federal rules restrict any use of the information to criminally investigate or prosecute any alcohol or drug abuse patient.[facility] HospitalIn the event this information is protected by the Federal Confidentiality of Alcohol and Drug Abuse Patient Records regulations: The Federal rules restrict any use of the information to criminally investigate or prosecute any alcohol or drug abuse patient.[facility] HospitalIn the event this information is protected by the Federal Confidentiality of Alcohol and Drug Abuse Patient Records regulations: The Federal rules restrict any use of the information to criminally investigate or prosecute any alcohol or drug abuse patient.[facility] HospitalIn the event this information is protected by the Federal Confidentiality of Alcohol and Drug Abuse Patient Records regulations: The Federal rules restrict any use of the information to criminally investigate or prosecute any alcohol or drug abuse patient.[facility] HospitalIn the event this information is protected by the Federal Confidentiality of Alcohol and Drug Abuse Patient Records regulations: The Federal rules restrict any use of the information to criminally investigate or prosecute any alcohol or drug abuse patient.[facility] HospitalIn the event this information is protected by the Federal Confidentiality of Alcohol and Drug Abuse Patient Records regulations: The Federal rules restrict any use of the information to criminally investigate or prosecute any alcohol or drug abuse patient.[facility] Reason for Visit (unrecogniz ed section [...] Refill Request 01/21/2023 Reason Onset Date Comments [facility] 02/05/2023 [employer] Low HCC [...] Refill Request 07/21/2024 Reason Onset Date Comments [facility] 08/21/2024 [employer] High Risk - Attempt 1 Reason Onset Date Comments CDM 09/11/2024 Enrollment outre ach Reason Comments Follow Up 3 month follow up wi th labs Reason Onset Date Comments [facility] 09/24/2024 humans[employer] dhaliwal Reason [...] Care Teams (unrecognized sec tion and content) [employer]isc[employer] Relationship Specialty Start Date End Date Deirdre Quiñones MD [address] [place] [address] PCP - General Family Practice 05/19/18 Biscuit Maker Relationship Specialty Start Date End Date Deirdre Quiñones MD [address] [place] [address] PCP - General Family Practice 05/19/18 Biscuit Maker Relationship Specialty Start Date End Date Deirdre Quiñones MD [address] [place] [address] PCP - General Family Practice 05/19/18 Biscuit Maker Relationship Specialty Start Date End Date Deirdre Quiñones MD [address] [place] [address] PCP - General Family Practice 05/19/18 Biscuit Maker Relationship Specialty Start Date End Date Deirdre Quiñones MD [facility] [place] [address] PCP - General Family Practice 05/19/18 Biscuit Maker Relationship Specialty Start Date End Date Deirdre Quiñones MD [address] [place] [address] PCP - General Family Practice 05/19/18 [employer]isc[employer] Maker Relationship Specialty Start Date End Date Deirdre Quiñones MD [address] [place] [address] PCP - General Family Practice 05/19/18 Biscuit Maker Relationship Specialty Start Date End Date Deirdre Quiñones MD [address] [place] [address] PCP - General Family Practice 05/19/18 Biscuit Maker Relationship Specialty Start Date End Date Deirdre Quiñones MD [address] [place] [address] PCP - General Family Practice 05/19/18 Biscuit Maker Relationship Specialty Start Date End Date Deirdre Quiñones MD [address] [place] [address] PCP - General Family Medicine 05/19/18 Biscuit Maker Relationship Specialty Start Date End Date Deirdre Quiñones MD [address] [place] [address] PCP - General Family Medicine 05/19/18 Biscuit Maker Relationship Specialty Start Date End Date Deirdre Quiñones MD [address] [place] [address] PCP - General Family Medicine 05/19/18 Biscuit Maker Relationship Specialty Start Date End Date Deirdre Quiñones MD [address] [place] [address] PCP - General Family Medicine 05/19/18 Biscuit Maker Relationship Specialty Start Date End Date Deirdre Quiñones MD [address] [place] [address] PCP - General Family Medicine 05/19/18 Biscuit Maker Relationship Specialty Start Date End Date Deirdre Quiñones MD [address] [place] [address] PCP - General Family Medicine 05/19/18 Biscuit Maker Relationship Specialty Start Date End Date Deirdre Quiñones MD [address] [place] [address] PCP - General Family Medicine 05/19/18 Biscuit Maker Relationship Specialty Start Date End Date Deirdre Quiñones MD [address] [place] [address] PCP - General Family Medicine 05/19/18 Biscuit Maker Relationship Specialty Start Date End Date Deirdre Quiñones MD [address] [place] [address] PCP - General Family Medicine 05/19/18 Biscuit Maker Relationship Specialty Start Date End Date Deirdre Quiñones MD [address] [place] [address] PCP - General Family Medicine 05/19/18 Biscuit Maker Relationship Specialty Start Date End Date Deirdre Quiñones MD [address] [place] [address] PCP - General Family Medicine 05/19/18 Biscuit Maker Relationship Specialty Start Date End Date Deirdre Quiñones MD [address] [place] [address] PCP - General Family Medicine 05/19/18 Biscuit Maker Relationship Specialty Start Date End Date Deirdre Quiñones MD [address] [place] [address] PCP - General Family Medicine 05/19/18 [employer]isc[employer] Maker Relationship Specialty Start Date End Date Deirdre Quiñones MD [address] [place] [address] PCP - General Family Medicine 05/19/18 Bisc[employer] Maker Relationship Specialty Start Date End Date Deirdre Quiñones MD [address] [place] [address] PCP - General Family Medicine 05/19/18 Biscuit Maker Relationship Specialty Start Date End Date Deirdre Quiñones MD [address] [place] [address] PCP - General Family Medicine 05/19/18 Team [...] Thiago Jarvis , DO Emergency Provider Active [employer] Relationship Specialty Start Date End Date Deirdre Quiñones MD [address] [place] [address] PCP - General Family Medicine 05/19/18 Team [...] Quiñones MD Primary Care Provider Active Dr. Glody Lockwood , DO Emergency Provider Active [employer] Relationship Specialty Start Date End Date Deirdre Quiñones MD [address] [place] [address] PCP - General Family Medicine 05/19/18 Biscuit Maker Relationship Specialty Start Date End Date Deirdre Quiñones MD [address] [place] [address] PCP - General Family Medicine 05/19/18 Biscuit Maker Relationship Specialty Start Date End Date Deirdre Quiñones MD [address] [place] [address] PCP - General Family Medicine 05/19/18 Biscuit Maker Relationship Specialty Start Date End Date Deirdre Quiñones MD [address] [place] [address] PCP - General Family Medicine 05/19/18 Biscuit Maker Relationship Specialty Start Date End Date Deirdre Quiñones MD [address] [place] [address] PCP - General Family Medicine 05/19/18 Biscuit Maker Relationship Specialty Start Date End Date Deirdre Quiñones MD [address] [place] [address] PCP - General Family Medicine 05/19/18 Biscuit Maker Relationship Specialty Start Date End Date Deirdre Quiñones MD [address] [place] [address] PCP - General Family Medicine 05/19/18 Biscuit Maker Relationship Specialty Start Date End Date Deirdre Quiñones MD [address] [place] [address] PCP - General Family Medicine 05/19/18 Biscuit Maker Relationship Specialty Start Date End Date Deirdre Quiñones MD [address] [place] [address] PCP - General Family Medicine 05/19/18 Biscuit Maker Relationship Specialty Start Date End Date Deirdre Quiñones MD [address] [place] [address] PCP - General Family Medicine 05/19/18 Biscuit Maker Relationship Specialty Start Date End Date Deirdre Quiñones MD [address] [place] [address] PCP - General Family Medicine 05/19/18 Biscuit Maker Relationship Specialty Start Date End Date Deirdre Quiñones MD [address] [place] [address] PCP - General Family Medicine 05/19/18 Silvai Vazquez APRN.CNP [address] [place] [address] Director Of Casework Department Family Medicine 06/14/24 Biscuit Maker Relationship Specialty Start Date End Date Deirdre Quiñones MD [address] [place] [address] PCP - General Family Medicine 05/19/18 Silvia Vazquez APRN.SPRING REPAIRER HELPER HAND [address] [place] [address] Director Of Casework Department Family Medicine 06/14/24 Jay Tran APRN.SPRING REPAIRER HELPER HAND [address] [place] [address] Director Of Casework Department Family Medicine 06/23/24 Biscuit Maker Relationship Specialty Start Date End Date Deirdre Quiñones MD [address] [place] [address] PCP - General Family Medicine 05/19/18 Silvia Vazquez APRN.SPRING REPAIRER HELPER HAND [address] [place] [address] Director Of Casework Department Family Medicine 06/14/24 Jay Tran APRN.SPRING REPAIRER HELPER HAND [address] [place] [address] Director Of Casework Department Family Medicine 06/23/24 Biscuit Maker Relationship Specialty Start Date End Date Deirdre Quiñones MD [address] [place] [address] PCP - General Family Medicine 05/19/18 Silvia Vazquez APRN.SPRING REPAIRER HELPER HAND [address] [place] [address] Director Of Casework Department Family Medicine 06/14/24 Jay Tran APRN.SPRING REPAIRER HELPER HAND [address] [place] [address] Director Of Casework Department Family [facility] 06/23/24 Denise Edward, pipe fitter street servicePower Originator 09/07/24 Biscuit Maker Relationship Specialty Start Date End Date Deirdre Quiñones MD [address] [place] [address] PCP - General Family Medicine 05/19/18 Silvia Vazquez APRN.SPRING REPAIRER HELPER HAND [address] [place] [address] Director Of Casework Department Family Medicine 06/14/24 Jay Tran APRN.SPRING REPAIRER HELPER HAND [address] [place] [address] Director Of Casework Department [facility] 06/23/24 Denise Edward, pipe fitter street servicePower Originator 09/07/24 Biscuit Maker Relationship Specialty Start Date End Date Deirdre Quiñones MD [address] [place] [address] PCP - General Family Medicine 05/19/18 Silvia Vazquez ANGLEDOZER OPERATOR.SPRING REPAIRER HELPER HAND [address] [place] [address] Director Of Casework Department Family Medicine 06/14/24 Jay Tran APRN.SPRING REPAIRER HELPER HAND [address] [place] [address] Director Of Casework Department Family Medicine 06/23/24 Denise Edward, pipe fitter street servicePower Originator 09/07/24 Biscuit Maker Relationship Specialty Start Date End Date Deirdre Quiñones MD [address] [place] [address] PCP - General Family Medicine 05/19/18 Silvia Vazquez APRN.SPRING REPAIRER HELPER HAND [address] [facility] [place] [address] Director Of Casework Department Family Medicine 06/14/24 Jay Tran APRN.SPRING REPAIRER HELPER HAND [address] [place] [address] Director Of Casework Department Family Medicine 06/23/24 Denise Edward, pipe fitter street servicePower Originator 09/07/24 Biscuit Maker Relationship Specialty Start Date End Date Deirdre Quiñones MD [address] [place] [address] PCP - General Family Medicine 05/19/18 Silvia Vazquez APRN.SPRING REPAIRER HELPER HAND [address] [place] [address] Director Of Casework Department Family Medicine 06/14/24 Jay Tran APRN.SPRING REPAIRER HELPER HAND [address] [place] [address] Director Of Casework Department Family [facility] 06/23/24 Denise Edward pipe fitter street servicePower Originator 09/07/24 Biscuit Maker Relationship Specialty Start Date End Date Deirdre Quiñones MD [address] [place] [address] PCP - General Family Medicine 05/19/18 Silvia Vazquez APRN.SPRING REPAIRER HELPER HAND [address] [place] [address] Director Of Casework Department Family Medicine 06/14/24 Jay Tran APRN.SPRING REPAIRER HELPER HAND [address] [place] [address] Director Of Casework Department Family Medicine 06/23/24 Denise Edward, pipe fitter street servicePower Originator 09/07/24 Biscuit Maker Relationship Specialty Start Date End Date Deirdre Quiñones MD [address] [place] [address] PCP - General Family Medicine 05/19/18 Silvia Vazquez APRN.SPRING REPAIRER HELPER HAND [address] [place] [address] Director Of Casework Department Family Medicine 06/14/24 Jay Tran APRN.SPRING REPAIRER HELPER HAND [address] [place] [address] Director Of Casework Department Family [facility] 06/23/24 Denise Edward pipe fitter street servicePower Originator 09/07/24 Biscuit Maker Relationship Specialty Start Date End Date Deirdre Quiñones MD [address] [place] [address] PCP - General Family Medicine 05/19/18 Silvia Vazquez APRN.SPRING REPAIRER HELPER HAND [address] [place] [address] Director Of Casework Department Family Medicine 06/14/24 Jay Tran APRN.SPRING REPAIRER HELPER HAND [address] [place] [address] Director Of Casework Department Family Medicine 06/23/24 Denise Edward, pipe fitter street servicePower Originator 09/07/24 Biscuit Maker Relationship Specialty Start Date End Date Deirdre Quiñones MD [address] [place] [address] PCP - General Family Medicine 05/19/18 Silvia Vazquez APRN.SPRING REPAIRER HELPER HAND [address] [place] [address] Director Of Casework Department Family Medicine 06/14/24 Jay Tran APRN.SPRING REPAIRER HELPER HAND [address] [place] [address] Director Of Casework Department Family Medicine 06/23/24 Denise Edward, pipe fitter street servicePower Originator 09/07/24 Biscuit Maker Relationship Specialty Start Date End Date Deirdre Quiñones MD [address] [place] [address] PCP - General Family Medicine 05/19/18 Jay Tran APRN.SPRING REPAIRER HELPER HAND [address] [place] [address] Director Of Casework Department Family Medicine 06/23/24 Denise Edward pipe fitter street servicePower Originator 09/07/24 Biscuit Maker Relationship Specialty Start Date End Date Deirdre Quiñones MD [address] [place] [address] PCP - General Family Medicine 05/19/18 Jay Tran ANGLEDOZER OPERATOR.SPRING REPAIRER HELPER HAND [address] [place] [address] Director Of Casework Department Family Medicine 06/23/24 Denise Edward pipe fitter street servicePower Originator 09/07/24 Biscuit Maker Relationship Specialty Start Date End Date Deirdre Quiñones MD [address] [place] [address] PCP - General Family Medicine 05/19/18 Jay Tran ANGLEDOZER OPERATOR.SPRING REPAIRER HELPER HAND [address] [place] [address] Director Of Casework Department Family Medicine 06/23/24 Denise Edward, pipe fitter street servicePower Originator 09/07/24 Biscuit Maker Relationship Specialty Start Date End Date Deirdre Quiñones MD [address] [place] [address] PCP - General Family Medicine 05/19/18 Jay Tran APRN.SPRING REPAIRER HELPER HAND [address] [place] [address] [facility] 06/23/24 Denise Edward pipe fitter street servicePower Originator 09/07/24 Biscuit Maker Relationship Specialty Start Date End Date Deirdre Quiñones MD [address] [place] [address] PCP - General Family Medicine 05/19/18 Jay Tran APRN.SPRING REPAIRER HELPER HAND [address] [place] [address] [facility] 06/23/24 Biscuit Maker Relationship Specialty Start Date End Date Deirdre Quiñones MD [address] [place] [address] PCP - General Family Medicine 05/19/18 Jay Tran APRN.SPRING REPAIRER HELPER HAND [address] [place] [address] [facility] 06/23/24 Goals (unrecognized section and content) [...] BE BASED ON THE PRIMARY CLINICAL RECORDS. [facility]. provides no warranty or guarantee of the accuracy or completeness of information in this document.
[2025-06-19] VITALS (12 sets, daily range): BP systolic 84–109; BP diastolic 50–67; PULSE 60–77; RESP 11–20; TEMP 36.6–36.9; O2SAT 17–96; BMI 28.7
[2025-06-19 05:20] LABS: Hematocrit 38.7 % (37-47); Hemoglobin 13.3 g/dL (12.0-15.0); Mean Corp Hgb Conc 34.4 g/dL (32-36); Mean Corpuscular Volume 93.0 fL (81-99); Mean Platelet Vol. 8.8 fl (6.2-12.0); Platelet Count 324 K/mm3 (150-450); RBC Distribution Width CV 11.7 % (11.6-14.6); RBC Distribution Width SD 39.9 fl (35.1-43.9); Red Blood Count 4.16 M/mm3 (4.2-5.4); White Blood Count 11.4 K/mm3 (4.4-11.0)
[2025-06-19 05:50] LABS: AST(SGOT) 67 U/L (<=31); Alanine Aminotransfer ALT/SGPT 21 U/L (<=34); Albumin, Serum 4.1 g/dL (3.4-4.8); Alkaline Phosphatase 24 U/L (35-104); Anion Gap 16 (5-15); BUN 17 mg/dL (4-19); BUN/Creat Ratio 18.8 RATIO (10-20); Calcium,Total 9.9 mg/dL (7.6-11.0); Carbon Dioxide 21.9 mmol/L (21.0-32.0); Chloride 100 mmol/L (98-108); Estimated Creatinine Clearance 47.09 ml/min (50-250); Globulin 2.8 g/dL (2.2-4.2); Glucose 183 mg/dL (70-99); Potassium 4.2 mmol/L (3.3-5.1)
--- NOTE | 2025-06-19 07:54 | PN.HOSP_ITS ---
Reason for Visit Chief Complaint: chest pain Objective Data Objective Data Vital Signs: Vital Signs Temp Pulse Resp BP Pulse Ox O2 Del Method 98.5 F 60 16 109/61 95 Room Air 06/19/25 06:00 06/19/25 06:00 06/19/25 06:00 06/19/25 06:00 06/19/25 06:00 06/19/25 06:00 Oxygen Delivery Method Room Air Weight: 162 lb 0.636 oz Body Mass Index (BMI) 28.7 Intake & Output: Intake and Output for Last 24 Hours 06/17/25 06/18/25 06/19/25 23:59 23:59 23:59 Intake Total 360 / 360 240 / 240 Balance 360 / 360 240 / 240 Lab / Micro Data 06/19/25 05:13 06/19/25 05:13 Labs: Laboratory Results - last 24 hr 06/18/25 12:33: WBC 11.2 H, RBC 4.25, Hgb 13.3, Hct 39.4, MCV 92.7, MCH 31.3, MCHC 33.8, RDW Std Deviation 39.7, RDW Coeff of Yordy 11.6, Plt Count 334, MPV 8.8, Immature Gran % (Auto) 0.300, Neut % (Auto) 51.3, Lymph % (Auto) 36.8, [place] % (Auto) 7.6, Eos % (Auto) 3.0, Baso % (Auto) 1.0, Absolute Neuts (auto) 5.8, Absolute Lymphs (auto) 4.13, Nucleated RBC % 0, Sodium 136, Potassium 4.1, Chloride 98, Carbon Dioxide 22.5, Anion Gap 15, BUN 22 H, Creatinine 0.83, Estim Creat Clear Calc 50.00, Est GFR (MDRD) Non-Af 70, BUN/Creatinine Ratio 26.3 H, G lucose 188 H, Calcium 10.4, Troponin T High Sens 284 H* 06/18/25 15:55: Sodium 133, Potassium 4.1, Chloride 97 L, Carbon Dioxide 24.6, Anion Gap 12, BUN 20 H, Creatinine 0.77, Estim Creat Clear Calc 53.28, Est GFR (MDRD) Non-Af 77, BUN/Creatinine Ratio 26.4 H, Glucose 167 H, Calcium 10.2, T roponin T Hi Sens 2 Hr 780 H* 06/18/25 16:01: POC Glucose 174 H 06/18/25 17:55: Troponin T Hi Sens 4Hr 1268 H* 06/18/25 21:19: POC Glucose 203 H 06/19/25 05:13: WBC 11.4 H, RBC 4.16 L, Hgb 13.3, Hct 38.7, MCV 93.0, MCH 32.0, MCHC 34.4, RDW Std Deviation 39.9, RDW Coeff of Yordy 11.7, Plt Count 324, MPV 8.8, Sodium 137, Potassium 4.2, Chloride 100, Carbon Dioxide 21.9, Anion Gap 16 H, BUN 17, Creatinine 0.90, Estim Creat Clear Calc 47.09 L, Est GFR (MDRD) Non- Af 64, BUN/Creatinine Ratio 18.8, Glucose 183 H, Hemoglobin A1c 8.1 H, Calcium 9.9, Total Bilirubin 0.33, AST 67 H, ALT 21, Alkaline Phosphatase 24 L, Total Protein 6.8, Albumin 4.1, Globulin 2.8, Albumin/Globulin Ratio 1.5 Physical Exam Narrative Seen and examined Patient never had any heart attack/OR. Overnight she did well but could not sleep. Denies chest pain shortness of breath. Echo is getting done Physical exam General: Alert, Oriented x3, Cooperative. BMI 28.7 kg/m? HEENT: Atraumatic, PERRLA, EOMI, Normocephalic. Oral: No Gingival or Mucosal Lesions/ Ulcerations Neck: Supple, No JVD, Negative Carotid Bruits Chest wall/Lungs: Air entry diminished in bilateral lung bases. No crepitation/rhonchi Cardiovascular: Regular rate and rhythm, Normal S1,S2, systolic murmur Abdomen: Bowel Sounds Present, Soft, Non Tender, Non-Distended : No dysuria. No renal angle tenderness. No suprapubic tenderness. Extremities: No edema, Capillary Refill Less than 3 Seconds Skin: No rashes, No breakdown Musculoskeletal: No Tenderness to Palpation of Joints or Extremities Neurological: Cranial nerves II-XII grossly intact, DTR 2+/4. No acute focal neurological deficit. Psych/Mental Status: Normal Affect, Appropriate. Assessment & Plan Assessment/Plan (1) Elevated troponin: (2) Acute inferior myocardial infarction: PLAN: Plan 79-year-old gentleman admitted with chest pain with radiation to back that started on the day of admission #STEMI: Patient was admitted to the ICU after cardiac cath * Initial troponin was elevated at 284 and then subsequent 780 and [address] elevation in the inferior leads. * She was taken emergently to the [facility]. She had cardiac cath which showed multivessel coronary artery disease with 99% stenosis in the mid RCA which was treated with a drug-eluting stent. She also had chronic total occlusion of the LAD that could not be crossed. * Started aspirin and high intensity statin, Brilinta, lisinopril and metoprolol 12.5 mg twice daily. * 2D echo ordered. #Type 2 diabetes mellitus: On dulaglutide and glimepiride. Insulin Sliding scale. Accu-Cheks ACHS. 06/19: Glucose is high 183. Lantus insulin is started #Nicotine dependence: Counseled to quit. States she smokes about 2 to 4 cigarettes every day. Nicotine patch 21 mg daily as needed #Hypothyroidism: On Synthroid DVT prophylaxis: SCDs CODE STATUS: Patient counseled extensively about different types of CODE STATUS including full code, DNR CCA and DNR CCA. Patient elects to be full code. Total face to face time: 16 mins.
--- NOTE | 2025-06-19 08:01 | ECHOCS_ITS ---
Reason For Study Reason For Study: STEMI Procedure This was a 2D Doppler, Color Flow transthoracic echocardiogram. Contrast injection was performed. Exam performed portable in ICU/CCU. Left Ventricle Normal LV size. The estimated ejection fraction is 60 %. No evidence for diastolic dysfunction. No regional wall motion abnormalities noted. Right Ventricle Normal RV size. Normal systolic function. Atria The left and right atria are normal. No doppler evidence for ASD. Mitral Valve There is no mitral valve stenosis. No mitral valve insufficiency. Tricuspid Valve There is no tricuspid stenosis. Trivial tricuspid valve insufficiency. Unable to estimate RV systolic pressure due to insufficient tricuspid regurgitant envelope. Aortic Valve Trisinus/trileaflet aortic valve. There is no aortic stenosis. No aortic valve insufficiency. Pulmonic Valve There is no pulmonic valvular stenosis. No pulmonic valve insufficiency. Great Vessels Normal sized aortic root. Pericardium/Pleural No pericardial effusion. Medication Diluted definity 1ml given slow IV push to enhance endocardial definition. MMode/2D Measurements & Calculations LVIDd: 3.8 cm IVSd: 0.81 cm Ao root diam: 3.0 cm LVIDs: 2.6 cm LVPWd: 0.98 cm RVDd: 3.3 cm FS: 30.7 % LAV(MOD-bp): 19.5 ml LVAd ap4: 25.1 cm2 SV(MOD-sp4): 41.3 ml LAV(MOD-bp) Indexed: 11.0 ml/m2 LVLd ap4: 8.4 cm SI(MOD-sp4): 23.4 ml/m2 LAV(MOD-sp2): 21.9 ml EDV(MOD-sp4): 62.0 ml LAV(MOD-sp4): 17.2 ml EDV(sp4-el): 63.9 ml LVAs ap4: 12.7 cm2 LVLs ap4: 6.4 cm ESV(MOD-sp4): 20.7 ml ESV(sp4-el): 21.3 ml EF(MOD-sp4): 66.6 % EF(sp4-el): 66.7 % SV(sp4-el): 42.6 ml LA A4 area: 10.1 cm2 LA dimension(2D): 2.7 cm RA A4 area: 6.8 cm2 Time Measurements MV dec time: 0.27 sec Doppler Measurements & Calculations MV E max kahlil: 53.5 cm/sec Lat Peak E' Kahlil: 8.6 cm/sec Med Peak E' Kahlil: 5.7 cm/sec MV A max kahlil: 103.2 cm/sec E/E' lat: 6.2 E/E' med: 9.3 MV E/A: 0.52 MV dec slope: 196.4 cm/sec2 Ao V2 max: 180.4 cm/sec LV V1 max: 91.7 cm/sec Ao max P.0 mmHg LV V1 max P.4 mmHg Ao V2 mean: 116.0 cm/sec Ao mean P.2 mmHg Ao V2 VTI: 36.2 cm PA V2 max: 98.9 cm/sec TR max kahlil: 235.5 cm/sec TR max P.2 mmHg ECHO/Echo Complete W/ Contrast Interpretation Summary The estimated ejection fraction is 60 %. No evidence for diastolic dysfunction. Ordering Physician: Evin Coulter Referring Physician: Ellis Quiñones Performed By: Paty Blackman, JUJU, RVT
--- NOTE | 2025-06-19 10:00 | EKG12_ITS ---
Test Reason : AM EKG Blood Pressure : */* mmHG Vent. Rate : 59 BPM Atrial Rate : 59 BPM P-R Int : 172 ms QRS Dur : 72 ms QT Int : 454 ms P-R-T Axes : 55 5 -47 degrees QTcB Int : 449 ms Sinus bradycardia Inferior infarct , age undetermined Abnormal ECG Confirmed by CRISTIAN BUCKLEY, JF ([id number]), assistant editor SHANTA SERRATO ([id number]) on 06/22/2025 1:24:13 PM Referred By: Mc Mcnulty Confirmed By: JF FOSTER MD
[2025-06-19] MEDS: TICAGRELOR 90 MG TABLET PO (10:05)
[2025-06-19] MEDS: Aspirin E.C. 81 MG Tablet PO (10:06)
[2025-06-19] MEDS: Insulin Glargine-YFGN 100 UNIT/ML Pen 8 UNIT SC (10:13)
--- NOTE | 2025-06-19 12:06 | DCINST_ITS ---
Discharge Instructions DC O2, CPAP, BIPAP needs Home O2 Discharge instructions: No Dressing / Incision Discharge Activity: Return to Normal Activity Weight Bearing Status: Weight bearing as tolerated Dressing / Incision Call your doctor if you observe: Fever of 101 or Higher, Coldness, Increased Pain, Numbness or Tingling, Change in Color, Inability to urinate, Inability to have a bowel movement, Shortness of breath, Dizziness, Fainting spells, Swelling in the ankles, Chest pain, Prolonged hiccupping, Increased palpitations (irregular heartbeat) and Calf discomfort Follow Up Care When: IN 2 WEEKS Test Results: Test results from this visit will be discussed in further detail at your follow- up appointment, if applicable. Discharge Plan Admission Admit Date/Time: 06/18/25 15:00 Primary Reason for Your Visit: acute inferior wall STEMI Attending Provider: Evin Coulter Primary Care Provider: Ellis Quiñones Consulting Providers: Mc Mcnulty Discharge Orders/Prescriptions Prescriptions: New aspirin 81 mg Tablet,Delayed Release (Dr/Ec) 81 mg PO BREAKFAST 30 Days Qty: 30 2RF lisinopril 10 mg Tablet 5 mg PO DAILY Qty: 30 2RF metoprolol tartrate 25 mg Tablet 12.5 mg PO BID 30 Days Qty: 30 2RF ticagrelor 90 mg Tablet 90 mg PO BID 30 Days Qty: 60 2RF Continued Trulicity 0.75 mg/0.5 mL pen injector subcut Patient Comments: INJECT 0.5 ML SUBCUTANEOUSLY ONCE A WEEK. DISCARD PEN AFTER. tramadol 50 mg tablet 50 mg PO DAILY atorvastatin 10 mg tablet 10 mg PO QHS glimepiride 2 mg tablet 2 mg PO DAILY alprazolam 0.5 mg tablet 0.5 mg PO QHS levothyroxine 50 mcg tablet 50 mcg PO DAILY Ozempic 0.25 mg or 0.5 mg (2 mg/3 mL) pen injector 0.5 mg subcut QWEEK loratadine 10 mg tablet 10 mg PO DAILY Discontinued lisinopril 20 mg tablet 20 mg PO DAILY Referrals / Follow Up: Js Lewis DO [Med Staff - Active Staff, Cardiology] - Within 2 Weeks Ellis Quiñones MD [Primary Care Provider, Family Practice] Disposition Disposition (needs filled in before D/C Order can be placed): Home, Self Care
--- NOTE | 2025-06-19 12:10 | DS.PCM_ITS ---
Providers Date of Admission: 06/18/25 Date of Discharge: 06/19/25 Primary Care Physician: Dr. Ellis Quiñones MD Reason For Visit: STEMI Diagnosis Discharge Diagnosis (1) Elevated troponin: Status: Acute Code(s): R79.89 - Other specified abnormal findings of blood chemistry (2) Acute inferior myocardial infarction: Status: Acute Code(s): I21.19 - ST elevation (STEMI) myocardial infarction involving other coronary artery of inferior wall Plan 79-year-old gentleman admitted with chest pain with radiation to back that started on the day of admission. EKG consistent with inferior wall STEMI inferior wall STEMI: Patient was admitted to the ICU after cardiac cath * Initial troponin was elevated at 284 and then subsequent 780 and [address] elevation in the inferior leads. * She was taken emergently to the [facility]. She had cardiac cath which showed multivessel coronary artery disease with 99% stenosis in the mid RCA which was treated with a drug-eluting stent. She also had chronic total occlusion of the LAD that could not be crossed. * Started aspirin and high intensity statin, Brilinta, lisinopril and metoprolol 12.5 mg twice daily. * 2D echo reviewed. EF 60%. No evidence of diastolic dysfunction. Trivial TR otherwise no major valvular abnormality. Left and right atria normal. #Type 2 diabetes mellitus: On dulaglutide and glimepiride. Insulin Sliding scale. Accu-Cheks ACHS. 06/19: Glucose is high 183. Lantus insulin is started. Follow-up with PCP for optimal control of glucose. Resume oral hypoglycemics. #Nicotine dependence: Counseled to quit. States she smokes about 2 to 4 cigarettes every day. Nicotine patch 21 mg daily as needed #Hypothyroidism: On Synthroid DVT prophylaxis: SCDs CODE STATUS: Patient counseled extensively about different types of CODE STATUS including full code, DNR CCA and DNR CCA. Patient elects to be full code. Discharge medication reconciliation done. Discharge follow-up instructions completed. Discharge process discussed with the patient and all questions were answered to patient's satisfaction. Follow with PCP in 1 to 2 weeks Total time spent, exact 35 minutes on discharge meds reconciliation, examination, coordination of care with nurses and ancillary staff, review of imaging and blood test and discussion with the patient on follow-up instructions. Medications at Discharge Home Medications alprazolam 0.5 mg tablet 0.5 mg PO QHS Allergies 05/11/21 atorvastatin 10 mg tablet 10 mg PO QHS Cholesterol 05/11/21 glimepiride 2 mg tablet 2 mg PO DAILY not taking 05/11/21 levothyroxine 50 mcg tablet 50 mcg PO DAILY hypothyroid 05/11/21 dulaglutide 0.75 mg/0.5 mL subcutaneous pen injector (Trulicity) ml subcut not takiong 07/23/22 tramadol 50 mg tablet 50 mg PO DAILY not taking 03/06/23 loratadine 10 mg tablet 10 mg PO DAILY allergies 06/18/25 semaglutide 0.25 mg or 0.5 mg (2 mg/3 mL) subcutaneous pen injector (Ozempic) 0.5 mg subcut QWEEK diabetes 06/18/25 aspirin 81 mg tablet,delayed release 81 mg PO BREAKFAST 30 days #30 tabs 06/19/25 lisinopril 10 mg tablet 5 mg (1/2 x 10 mg) PO DAILY #30 tabs 06/19/25 metoprolol tartrate 25 mg tablet 12.5 mg (1/2 x 25 mg) PO BID 30 days #30 tabs 06/19/25 ticagrelor 90 mg tablet 90 mg PO BID 30 days #60 tabs 06/19/25 Physical Exam Narrative Seen and examined Patient never had any heart attack/ND. Overnight she did well but could not sleep. Denies chest pain shortness of breath. director life sales shows sinus rhythm Echo is getting done Physical exam General: Alert, Oriented x3, Cooperative. BMI 28.7 kg/m? HEENT: Atraumatic, PERRLA, EOMI, Normocephalic. Oral: No Gingival or Mucosal Lesions/ Ulcerations Neck: Supple, No JVD, Negative Carotid Bruits Chest wall/Lungs: Air entry diminished in bilateral lung bases. No crepitation/rhonchi Cardiovascular: Regular rate and rhythm, Normal S1,S2, systolic murmur Abdomen: Bowel Sounds Present, Soft, Non Tender, Non-Distended : No dysuria. No renal angle tenderness. No suprapubic tenderness. Extremities: No edema, Capillary Refill Less than 3 Seconds Skin: No rashes, No breakdown Musculoskeletal: No Tenderness to Palpation of Joints or Extremities Neurological: Cranial nerves II-XII grossly intact, DTR 2+/4. No acute focal neurological deficit. Psych/Mental Status: Normal Affect, Appropriate. Weight / BMI Weight Weight: 162 lb 0.636 oz Body Mass Index (BMI) 28.7 ABG / Lab / Microbiology Data 06/19/25 05:13 06/19/25 05:13 Laboratory: Laboratory Results - last 24 hr 06/18/25 15:55: Sodium 133, Potassium 4.1, Chloride 97 L, Carbon Dioxide 24.6, Anion Gap 12, BUN 20 H, Creatinine 0.77, Estim Creat Clear Calc 53.28, Est GFR (MDRD) Non-Af 77, BUN/Creatinine Ratio 26.4 H, Glucose 167 H, Calcium 10.2, T roponin T Hi Sens 2 Hr 780 H* 06/18/25 16:01: POC Glucose 174 H 06/18/25 17:55: Troponin T Hi Sens 4Hr 1268 H* 06/18/25 21:19: POC Glucose 203 H 06/19/25 05:13: WBC 11.4 H, RBC 4.16 L, Hgb 13.3, Hct 38.7, MCV 93.0, MCH 32.0, MCHC 34.4, RDW Std Deviation 39.9, RDW Coeff of Yordy 11.7, Plt Count 324, MPV 8.8, Sodium 137, Potassium 4.2, Chloride 100, Carbon Dioxide 21.9, Anion Gap 16 H, BUN 17, Creatinine 0.90, Estim Creat Clear Calc 47.09 L, Est GFR (MDRD) Non- Af 64, BUN/Creatinine Ratio 18.8, Glucose 183 H, Hemoglobin A1c 8.1 H, Calcium 9.9, Total Bilirubin 0.33, AST 67 H, ALT 21, Alkaline Phosphatase 24 L, Total Protein 6.8, Albumin 4.1, Globulin 2.8, Albumin/Globulin Ratio 1.5 06/19/25 11:58: POC Glucose 178 H Radiography Diagnostic Testing: Radiology Impression Echocardiogram 06/19/25 08:01 Interpretation Summary The estimated ejection fraction is 60 %. No evidence for diastolic dysfunction. Ordering Physician: Evin Coulter Referring Physician: Ellis Quiñones Performed By: Paty Blackman RDCS, RVT D/C Instructions Weight Bearing Status: Weight bearing as tolerated Call your doctor if you observe: Fever of 101 or Higher, Coldness, Increased Pain, Numbness or Tingling, Change in Color, Inability to urinate, Inability to have a bowel movement, Shortness of breath, Dizziness, Fainting spells, Swelling in the ankles, Chest pain, Prolonged hiccupping, Increased palpitations (irregular heartbeat) and Calf discomfort DC O2, CPAP, BIPAP Needs Home O2 Discharge instructions: No When: IN 2 WEEKS Meaningful Use Info Meaningful Use Meaningful Use Diagnoses (Choose all that apply): AMI AMI/Post PCI/Angioplasty Aspirin given w/in 24hrs of arrival?: Yes ASA at discharge?: Yes Statins at discharge?: Yes Sam/ARB at discharge?: Yes Beta Cristina at discharge?: Yes Done w/ Acute ND measure.: Yes Discharge Plan Admission Admit Date/Time: 06/18/25 15:00 Primary Reason for Your Visit: acute inferior wall STEMI Attending Provider: Evin Coulter Primary Care Provider: Ellis Quiñones Consulting Providers: Mc Mcnulty Instructions Additional Instructions / Restrictions: Hold lisinopril if SBP less than 100 mmHg. Discharge Orders/Prescriptions Prescriptions: New aspirin 81 mg Tablet,Delayed Release (Dr/Ec) 81 mg PO BREAKFAST 30 Days Qty: 30 2RF lisinopril 10 mg Tablet 5 mg PO DAILY Qty: 30 2RF metoprolol tartrate 25 mg Tablet 12.5 mg PO BID 30 Days Qty: 30 2RF ticagrelor 90 mg Tablet 90 mg PO BID 30 Days Qty: 60 2RF Continued Trulicity 0.75 mg/0.5 mL pen injector subcut Patient Comments: INJECT 0.5 ML SUBCUTANEOUSLY ONCE A WEEK. DISCARD PEN AFTER. tramadol 50 mg tablet 50 mg PO DAILY atorvastatin 10 mg tablet 10 mg PO QHS glimepiride 2 mg tablet 2 mg PO DAILY alprazolam 0.5 mg tablet 0.5 mg PO QHS levothyroxine 50 mcg tablet 50 mcg PO DAILY Ozempic 0.25 mg or 0.5 mg (2 mg/3 mL) pen injector 0.5 mg subcut QWEEK loratadine 10 mg tablet 10 mg PO DAILY Discontinued lisinopril 20 mg tablet 20 mg PO DAILY Referrals / Follow Up: Js Lewis DO [Med Staff - Active Staff, Cardiology] - Within 2 Weeks Ellis Quiñones MD [Primary Care Provider, Family Practice] Disposition Disposition (needs filled in before D/C Order can be placed): Home, Self Care Charges/Coding Visit Charges Inpatient E&M: 53920 Disch Hosp >30min
--- NOTE | 2025-06-19 12:58 | CASEMGMT ---
Pt has an order for DC placed with a new rx for ticagrelor. TC to [facility] who states that they have already delivered the med to the pt. No further needs identified at this time.
== END 2025-06-19 14:00 | disposition home or self-care (01) ==
LOC: ED 13:11 → ICU 13:15
PROVIDERS: Student in an Organized Health Care Education/Training Program; Admitting Provider Specialist; Emergency Provider Emergency Medicine; PCP Family Medicine; Referring Provider Specialist; Visit Provider Internal Medicine
DX: I21.19 ST elevation (STEMI) myocardial infarction involving other coronary artery of inferior wall (principal); E11.9 Type 2 diabetes mellitus without complications; Z79.890 Hormone replacement therapy; Z79.891 Long term (current) use of opiate analgesic; Z79.85 Long-term (current) use of injectable non-insulin antidiabetic drugs; R79.89 Other specified abnormal findings of blood chemistry; F17.210 Nicotine dependence, cigarettes, uncomplicated; Z79.84 Long term (current) use of oral hypoglycemic drugs; I10 Essential (primary) hypertension; E03.9 Hypothyroidism, unspecified; Z79.899 Other long term (current) drug therapy; R94.31 Abnormal electrocardiogram [ECG] [EKG]; I25.10 Atherosclerotic heart disease of native coronary artery without angina pectoris
CPT/HCPCS: 80048; 80053; 82962; 83036; 84484; 85025; 85027; 92941; 93005; 93306; 93454; 96372; 97803; 99221; 99285; C1769; C1887; C1894; Q9957; Q9967; A4216; C1725; C1874; C8929; C9606; G0378; J1327